=== PATIENT | female | born 2000 | race Caucasian/White ===

== ENCOUNTER 2022-07-13 09:17 | Outpatient (OUT) | payer MEDICAID, SELFPAY ==
[2022-07-13 10:46] LABS: Basophils Percent Auto 0.5 % (0.2-2.0); Eosinophils Absolute Auto 0.1 10^3/uL (0.0-0.7); Hematocrit 39.7 % (36.0-48.0); Hemoglobin 13.5 g/dL (12.0-16.0); Immature Granulocytes Abs Auto 0.02 10^3/uL (0.00-0.03); Immature Granulocytes Pct Auto 0.3 % (0.0-0.5); Lymphocytes Absolute Auto 1.6 10^3/uL (1.2-3.8); Lymphocytes Percent Auto 24.2 % (20.5-60.0); Mean Corpuscular Hemoglobin 30.6 pg (26.7-34.0); Mean Platelet Volume 10.4 fL (9.5-13.5); Monocytes Absolute Auto 0.4 10^3/uL (0.3-0.8); Monocytes Percent Auto 6.2 % (1.7-12.0); Neutrophils Absolute Auto 4.4 10^3/uL (1.4-6.5); Neutrophils Percent Auto 66.8 % (43.0-75.0); Platelet Count 253 10^3/uL (150-450); Red Blood Count 4.41 10^6/uL (4.20-5.40); Red Cell Distribution Width 12.7 % (11.0-15.0); White Blood Count 6.6 10^3/uL (4.0-11.0)
[2022-07-13 11:02] LABS: Thyroid Stimulating Hormone <0.007 uIU/mL (0.358-3.740)
[2022-07-13 11:23] LABS: Estimated Average Glucose 88 mg/dL; Glycohemoglobin A1C 4.7 % (4.5-6.2)
[2022-07-13 11:47] LABS: BOX Test Sent Out Y
[2022-07-14 06:08] LABS: HBsAg Screen Negative (Negative); HCV Ab Non Reactive (Non Reactive); HIV Ab/p24 Ag Screen Non Reactive (Non Reactive); Rubella Antibodies, IgG 7.19 index (Immune >0.99)
[2022-07-14 11:09] LABS: Rapid Plasma Reagin, Quant Non Reactive (NonRea<1:1)
== END 2022-07-13 09:18 ==
PROVIDERS: Visit Provider Obstetrics & Gynecology
DX: Z34.81 Encounter for supervision of other normal pregnancy, first trimester (principal)
CPT/HCPCS: 36415; 83036; 84443; 85025; 86592; 86762; 86803; 86850; 86900; 86901; 87340; 87389

== ENCOUNTER 2022-09-29 13:15 | Outpatient (OUT) | payer MEDICAID, SELFPAY ==
--- NOTE | 2022-09-29 13:21 | US_ITS ---
[address] [address] Patient Name: JEMIMA RAZO MRN: [id number] date: 2000 Sex: F Assigned Patient Location: US Current Patient Location: Accession/Order Number: [id number] Exam Date: 09/29/2022 13:21 Report Date: 09/30/2022 15:13 At the request of: YURI REDDY Procedure: US OB anatomy EXAMINATION: US OB anatomy HISTORY: ANATOMY COMPARISON: No relevant comparison available. TECHNIQUE: Transabdominal sonographic examination was performed for obstetrical and evaluation. FINDINGS: Number: 1 Heart Rate: 129.0 bpm H.B. /min Amniotic Fluid Volume: Subjectively normal Placental Location: ANT/FUNDAL with lower margin 10.8 cm from os. Cervix Length: 4.5 cm , closed. ANATOMY: Normal Structures -cerebellum, choroid plexus, cisterna magna, lateral cerebral ventricles, orbits, midline falx, hard palate, four-chamber heart, stomach, kidneys, bladder, umbilical cord insertion into abdomen, three-vessel cord, cervical spine, thoracic spine, lumbar spine, sacral spine, right upper extremity, left upper extremity, right lower extremity, left lower extremity. SUBOPTIMALLY SEEN: Cardiac outflow tracts due to position. ABNORMALITIES: None BIOMETRY: BPD: 5.1 cm 21 weeks 4 days HC: 18.9 cm 21 weeks 1 days AC: 16.7 cm 21 weeks 5 days FL: 3.5 cm 21 weeks 0 days EFW:419.8 grams; 58% FL/AC: 20.8 FL/BPD: 67.7 HC/AC: 1.1 GESTATIONAL AGE: Age by EDC: 21 weeks 1 days HONEY by EDC: 02/08/2023 Age by current US: 21 weeks 3 days HONEY by current US: 02/06/2023 US/US OB anatomy IMPRESSION: 1. Single live intrauterine with growth detailed above. 2. Suboptimal visualization of the cardiac outflow tracts due to position. Electronically authenticated by: LYSSA STEWART Date: 09/30/2022 15:13
== END 2022-09-29 13:16 | disposition home or self-care (01) ==
LOC: US 13:16
PROVIDERS: Visit Provider Obstetrics & Gynecology
DX: Z34.92 Encounter for supervision of normal pregnancy, unspecified, second trimester (principal)
CPT/HCPCS: 76805

== ENCOUNTER 2022-11-09 21:32 | Outpatient (REF) | payer MEDICAID, SELFPAY ==
[2022-11-13 11:12] LABS: Age Gdln ACOG Testing Note (.); IGP, rfx Aptima HPV ASCU Note (.)
== END 2022-11-09 21:33 | disposition home or self-care (01) ==
LOC: LAB 21:32
PROVIDERS: Visit Provider Obstetrics & Gynecology
DX: Z12.4 Encounter for screening for malignant neoplasm of cervix (principal)
CPT/HCPCS: G0145

== ENCOUNTER 2022-12-29 12:15 | Observation (INO) | payer MEDICAID, SELFPAY ==
[2022-12-29 12:37] VITALS: TEMP 36.6
[2022-12-29 12:38] VITALS: BP 114/62; PULSE 121
[2022-12-29 12:51] LABS: Bilirubin Urine NEGATIVE (NEGATIVE); Blood Urine NEGATIVE (NEGATIVE); Color Urine LT. YELLOW (YELLOW); Glucose Urine UA NEGATIVE (NEGATIVE); Ketones Urine NEGATIVE (NEGATIVE); Leukocyte Esterase Urine MODERATE (NEGATIVE); Nitrite Urine NEGATIVE (NEGATIVE); Protein Urine NEGATIVE (NEG/TRACE); pH Urine 7.5 (5.0-9.0)
[2022-12-29 12:52] LABS: Clarity Urine SLIGHTLY CLOUDY (CLEAR); Urine Microscopic Indicated YES
[2022-12-29 12:57] LABS: Bacteria Urine NONE SEEN #/HPF (NONE SEEN); Cast Seen? NONE SEEN #/LPF (NONE SEEN); Crystals Seen? None Seen #/HPF (None Seen); Mucus Urine NONE SEEN (NONE SEEN); RBC Urine NONE SEEN #/HPF (0-2); Squamous Epithelial Cell Urine MODERATE #/LPF (NONE/RARE); Urine Culture Indicated YES
--- NOTE | 2022-12-29 12:58 | US_ITS ---
[place] [id number] Patient Name: JEMIMA RAZO MRN: [id number] date: 2000 Sex: F Assigned Patient Location: [facility] Current Patient Location: [facility] Accession/Order Number: [id number] Exam Date: 12/29/2022 13:06 Report Date: 12/29/2022 14:24 At the request of: YURI REDDY Procedure: US OB BPP w non-stress PROCEDURE: US OB cervical length, US OB BPP w non-stress, US OB placenta, 12/29/2022 1:06 PM EST CLINICAL INDICATIONS: Encounter for third trimester , contractions for one day, transvaginal evaluation of cervix in , biophysical profile assessment. Sonographic assessment of the placenta. 4 para 2 AB 1, Expected HONEY 02/08/2023 Expected gestational age: 34 weeks 1 day COMPARISON: 09/29/2022 TECHNIQUE: Limited third trimester obstetric sonogram. Biophysical profile assessment. Transvaginal evaluation of cervix in . FINDINGS: Single living intrauterine identified, cephalic presentation. body, cardiac activity noted heart, heart rate 164 bpm. Amniotic fluid index 18.6 cm, 5-95th percentile, maximum vertical pocket 7.7 cm. Grade 1 anterior placenta, no sign of previa. Inferior margin 15 cm from the cervical os. Limited imaging suggest marginal placenta cord insertion upon the surface of the placenta, 1.6 cm from the margin of the placenta. Convincing placental hemorrhage is not evident. 4.0 cm transvaginal cervical length, closed. BIOPHYSICAL PROFILE ASSESSMENT: movement: 2/2 tone: 2/2 breathin/2 fluid: 2/2 Total biophysical profile score: 8/8 BIOMETRY: Not performed. ANATOMIC ASSESSMENT: Not performed. US/US OB BPP w non-stress IMPRESSION: 1. Single living intrauterine , cephalic presentation. 2. Grade 1 anterior placenta without previa or hemorrhage. Provided images suggest a marginal placenta cord insertion, upon the surface of the placenta, 1.6 cm from the margin of the placenta. 3. 18.6 cm amniotic fluid index, 5-95th percentile, maximum vertical pocket 7.7 cm. 4. Normal biophysical profile assessment, total score 8/8 5. 4.0 cm transvaginal cervical length, closed Electronically authenticated by: NATASHA THAPA Date: 12/29/2022 14:24
--- NOTE | 2022-12-29 12:58 | US_ITS ---
[place] [id number] Patient Name: JEMIMA RAZO MRN: [id number] date: 2000 Sex: F Assigned Patient Location: [facility] Current Patient Location: [facility] Accession/Order Number: [id number] Exam Date: 12/29/2022 13:06 Report Date: 12/29/2022 14:24 At the request of: YURI REDDY Procedure: US OB placenta PROCEDURE: US OB cervical length, US OB BPP w non-stress, US OB placenta, 12/29/2022 1:06 PM EST CLINICAL INDICATIONS: Encounter for third trimester , contractions for one day, transvaginal evaluation of cervix in , biophysical profile assessment. Sonographic assessment of the placenta. 4 para 2 AB 1, Expected HONEY 02/08/2023 Expected gestational age: 34 weeks 1 day COMPARISON: 09/29/2022 TECHNIQUE: Limited third trimester obstetric sonogram. Biophysical profile assessment. Transvaginal evaluation of cervix in . FINDINGS: Single living intrauterine identified, cephalic presentation. body, cardiac activity noted heart, heart rate 164 bpm. Amniotic fluid index 18.6 cm, 5-95th percentile, maximum vertical pocket 7.7 cm. Grade 1 anterior placenta, no sign of previa. Inferior margin 15 cm from the cervical os. Limited imaging suggest marginal placenta cord insertion upon the surface of the placenta, 1.6 cm from the margin of the placenta. Convincing placental hemorrhage is not evident. 4.0 cm transvaginal cervical length, closed. BIOPHYSICAL PROFILE ASSESSMENT: movement: 2/2 tone: 2/2 breathin/2 fluid: 2/2 Total biophysical profile score: 8/8 BIOMETRY: Not performed. ANATOMIC ASSESSMENT: Not performed. US/US OB placenta IMPRESSION: 1. Single living intrauterine , cephalic presentation. 2. Grade 1 anterior placenta without previa or hemorrhage. Provided images suggest a marginal placenta cord insertion, upon the surface of the placenta, 1.6 cm from the margin of the placenta. 3. 18.6 cm amniotic fluid index, 5-95th percentile, maximum vertical pocket 7.7 cm. 4. Normal biophysical profile assessment, total score 8/8 5. 4.0 cm transvaginal cervical length, closed Electronically authenticated by: NATASHA THAPA Date: 12/29/2022 14:24
--- NOTE | 2022-12-29 12:58 | US_ITS ---
[place] [id number] Patient Name: JEMIMA RAZO MRN: [id number] date: 2000 Sex: F Assigned Patient Location: [facility] Current Patient Location: [facility] Accession/Order Number: [id number] Exam Date: 12/29/2022 13:06 Report Date: 12/29/2022 14:24 At the request of: YURI REDDY Procedure: US OB cervical length PROCEDURE: US OB cervical length, US OB BPP w non-stress, US OB placenta, 12/29/2022 1:06 PM EST CLINICAL INDICATIONS: Encounter for third trimester , contractions for one day, transvaginal evaluation of cervix in , biophysical profile assessment. Sonographic assessment of the placenta. 4 para 2 AB 1, Expected HONEY 02/08/2023 Expected gestational age: 34 weeks 1 day COMPARISON: 09/29/2022 TECHNIQUE: Limited third trimester obstetric sonogram. Biophysical profile assessment. Transvaginal evaluation of cervix in . FINDINGS: Single living intrauterine identified, cephalic presentation. body, cardiac activity noted heart, heart rate 164 bpm. Amniotic fluid index 18.6 cm, 5-95th percentile, maximum vertical pocket 7.7 cm. Grade 1 anterior placenta, no sign of previa. Inferior margin 15 cm from the cervical os. Limited imaging suggest marginal placenta cord insertion upon the surface of the placenta, 1.6 cm from the margin of the placenta. Convincing placental hemorrhage is not evident. 4.0 cm transvaginal cervical length, closed. BIOPHYSICAL PROFILE ASSESSMENT: movement: 2/2 tone: 2/2 breathin/2 fluid: 2/2 Total biophysical profile score: 8/8 BIOMETRY: Not performed. ANATOMIC ASSESSMENT: Not performed. US/US OB cervical length IMPRESSION: 1. Single living intrauterine , cephalic presentation. 2. Grade 1 anterior placenta without previa or hemorrhage. Provided images suggest a marginal placenta cord insertion, upon the surface of the placenta, 1.6 cm from the margin of the placenta. 3. 18.6 cm amniotic fluid index, 5-95th percentile, maximum vertical pocket 7.7 cm. 4. Normal biophysical profile assessment, total score 8/8 5. 4.0 cm transvaginal cervical length, closed Electronically authenticated by: NATASHA THAPA Date: 12/29/2022 14:24
== END 2022-12-29 13:53 | disposition home or self-care (01) ==
LOC: FBC 12:18
PROVIDERS: Admitting Provider Obstetrics & Gynecology; Visit Provider Obstetrics & Gynecology
DX: O47.03 False labor before 37 completed weeks of gestation, third trimester (principal); Z3A.34 34 weeks gestation of pregnancy
CPT/HCPCS: 59025; 76815; 76817; 76818; 81001; 87086; G0378; G0379

== ENCOUNTER 2023-01-04 12:55 | Outpatient (OUT) | payer MEDICAID, SELFPAY ==
--- NOTE | 2023-01-04 12:57 | US_ITS ---
[place] [id number] Patient Name: JEMIMA RAZO MRN: [id number] date: 2000 Sex: F Assigned Patient Location: Current Patient Location: [facility] Accession/Order Number: [id number] Exam Date: 01/04/2023 12:57 Report Date: 01/04/2023 15:14 At the request of: YURI REDDY Procedure: US OB growth EXAMINATION: US OB growth HISTORY: SGA COMPARISON: Ultrasound OB anatomy 09/29/2022 FINDINGS: Heart Rate: 131.0 bpm Number: 1.0 Position: CEPHALIC Amniotic Fluid Volume: 18.2 cm Maximum Vertical Pocket: 5.8 cm BIOMETRY: BPD: 9.0 cm cm; 36 weeks 4 days; 90% HC: 32.7 cmcm; 37 weeks 0 days ; 68% AC: 33.5 cm cm; 37 weeks 3 days; >97% FL: 6.6 cm cm; 33 weeks 6 days; 16% EFW: 2939.1 grams; 85% FL/AC: 19.6 FL/BPD: 72.7 HC/AC: 1.0 GESTATIONAL AGE: Age by EDC: 35 weeks 0 days HONEY by EDC: 02/08/2023 Age by US: 36 weeks 2 days HONEY by US: 01/30/2023 US/US OB growth IMPRESSION: 1. Single live intrauterine with growth detailed above. 2. Abdominal circumference is greater than 97th percentile. Electronically authenticated by: LYSSA STEWART Date: 01/04/2023 15:14
== END 2023-01-04 12:56 | disposition home or self-care (01) ==
LOC: US 12:55
PROVIDERS: Visit Provider Obstetrics & Gynecology
DX: O26.843 Uterine size-date discrepancy, third trimester (principal); Z3A.35 35 weeks gestation of pregnancy
CPT/HCPCS: 76816

== ENCOUNTER 2023-01-09 03:45 | Inpatient (IN) | payer MEDICAID, SELFPAY ==
[2023-01-09] VITALS (51 sets, daily range): BP systolic 89–138; BP diastolic 49–78; PULSE 67–203; RESP 16; TEMP 35.8–36.8
[2023-01-09 04:05] LABS: Bilirubin Urine MODERATE (NEGATIVE); Blood Urine MODERATE (NEGATIVE); Clarity Urine CLEAR (CLEAR); Color Urine DK. YELLOW (YELLOW); Glucose Urine UA NEGATIVE (NEGATIVE); Ketones Urine >=80 mg/dL (NEGATIVE); Leukocyte Esterase Urine TRACE (NEGATIVE); Nitrite Urine NEGATIVE (NEGATIVE); Protein Urine 100 mg/dL (NEG/TRACE); Specific Gravity Urine >=1.030 (1.005-1.025); Urobilinogen Urine >=8.0 EU/dL (0.2-1.0); pH Urine 6.5 (5.0-9.0)
[2023-01-09 04:07] LABS: Amnisure POSITIVE (NEGATIVE)
[2023-01-09 04:08] LABS: Urine Microscopic Indicated YES
[2023-01-09 04:12] LABS: Bacteria Urine SMALL #/HPF (NONE SEEN); Mucus Urine MODERATE (NONE SEEN); RBC Urine 0-2 #/HPF (0-2)
[2023-01-09 04:13] LABS: Cast Seen? NONE SEEN #/LPF (NONE SEEN); Crystals Seen? None Seen #/HPF (None Seen); Squamous Epithelial Cell Urine MODERATE #/LPF (NONE/RARE); Urine Culture Indicated YES
--- NOTE | 2023-01-09 09:44 | PM.OBHP ---
OB - H&P: HPI History of Present Illness Chief complaint: SROM LABOR : 4 Para: 1 Date of last menstrual period: 05/05/22 Gestational age based on last menstrual period: 35.5 weeks dated by 8 week ultrasound Narrative: presented yesterday with complaint of SROM. Amnisure positive however no pooling. observed overnight and minimal leakage. on speculum exam this am had pooling and Fern test positive. cervix 3 to 5 cm 80 percent and vertex. amniotic fluid clear. NST Cat I with occasion variable with quick return to baseline with contraction. History of Present Dating criteria: LMP confirmed by 1st trimester US care: good care Ultrasounds: normal 1st trimester US Medical complications OB: none Narrative: admits to vaping, marijuana use in past and alcohol use in past Labs Blood type: A (+) positive Rubella: immune RPR/VDLR: nonreactive GBS status: unknown HBsAG: negative Review of Systems ROS Status of ROS 10 or more systems reviewed and unremarkable except as noted in history and below Meds Home Medications and Allergies Allergies Allergy/AdvReac Type Severity Reaction Status Date / Time No Known Drug Allergies Allergy Verified 12/29/22 12:58 Exam Constitutional Vital Signs, click to edit/add: Last Vital Signs Temp 97.2 F L 01/09/23 09:27 Pulse 74 01/09/23 09:27 BP 115/72 01/09/23 09:27 Documenting provider has reviewed patient's vital signs: yes HENMT Common normals: normocephalic and head/scalp atraumatic Eye Common normals: PERRL Pupil: accommodation reflex normal Neck & C-Spine Common normals: full ROM Chest Common normals: inspection of chest normal Respiratory Common normals: normal respiratory effort Cardio Common normals: regular rate and regular rhythm GI Common normals: Normal to inspection, nondistended, normoactive bowel sounds present, soft to palpation and non-tender Common normals: no CVA tenderness Extremity Common normals: normal to inspection, full ROM and no calf tenderness Neuro Common normals: oriented x3, CN's II-XII intact bilaterally, moves all extremities, no focal motor deficits and no sensory deficits noted Psych Common normals: mental status grossly normal, thought process normal, cooperative, affect normal and speech normal Appearance: grossly normal Results Labs Labs: Urine 01/09/23 Range/Units 03:55 Urine Color Dk. yellow (YELLOW) Urine Clarity Clear (CLEAR) Urine pH 6.5 (5.0-9.0) Ur Specific [place] >=1.030 A (1.005-1.025) Urine Protein 100 A (NEG/TRACE) mg/dL Urine Glucose (UA) Negative (NEGATIVE) mg/dL OB - A/P Assessment and Plan (1) SROM (spontaneous rupture of membranes): Assessment and Plan: SROM CONFIRMED BY POOLING, FERN TEST AND AMNISURE (2) contractions: Assessment and Plan: WILL AUGMENT IF NECESSARY TO CREATE LABOR PATTERN. (3) GBS screening not performed: Assessment and Plan: RECEIVING AMPICILLIN PER PROTOCOL Plan SROM CONFIRMED 35.5 WEEKS ADMITTED FOR LABOR. WILL RECEIVE AMPICILLIN FOR UNKNOWN STATUS CONTINUOUS EFM AT PRESENT DOES NOT WANT EPIDURAL
[2023-01-09] MEDS: AMPICILLIN SODIUM 2,000 MG in 0.9 % SODIUM CHLORIDE 100 ML 200 MG IV (10:01)
[2023-01-09 10:09] LABS: Hematocrit 33.5 % (36.0-48.0); Hemoglobin 11.2 g/dL (12.0-16.0); Mean Corpuscular HGB Conc 33.4 g/dL (29.9-35.2); Mean Corpuscular Hemoglobin 30.9 pg (26.7-34.0); Mean Corpuscular Volume 92.3 fL (81.0-99.0); Mean Platelet Volume 10.1 fL (9.5-13.5); Platelet Count 251 10^3/uL (150-450); Red Blood Count 3.63 10^6/uL (4.20-5.40); Red Cell Distribution Width 13.1 % (11.0-15.0); White Blood Count 8.4 10^3/uL (4.0-11.0)
[2023-01-09] MEDS: 0.9 % SODIUM CHLORIDE 1,000 ML 125 ML IV ×3 (10:10→18:31)
[2023-01-09 11:30] LABS: Amphetamine Screen Urine NEGATIVE (NEGATIVE); Barbiturates Screen Urine NEGATIVE (NEGATIVE); Benzodiazepines Screen Urine NEGATIVE (NEGATIVE); Buprenorphine Screen Urine NEGATIVE (NEGATIVE); Cannabinoid Screen Urine POSITIVE (NEGATIVE); Cocaine Screen Urine NEGATIVE (NEGATIVE); Methadone Screen Urine NEGATIVE (NEGATIVE); Methamphetamines Screen Urine NEGATIVE (NEGATIVE); Opiate Screen Urine NEGATIVE (NEGATIVE); Oxycodone Screen Urine NEGATIVE (NEGATIVE); Phencyclidine Screen Urine NEGATIVE (NEGATIVE); Tricyclic Antidepressant Urine NEGATIVE (NEGATIVE)
[2023-01-09] MEDS: AMPICILLIN SODIUM 1,000 MG in 0.9 % SODIUM CHLORIDE 50 ML 100 MG IV ×2 (13:45→18:03)
[2023-01-09] MEDS: ROPIVACAINE HCL/PF 400 MG/200 ML PREMIX EPIDURAL (14:52)
[2023-01-09] MEDS: OXYTOCIN/0.9 % SODIUM CHLORIDE 10 UNITS/500 ML PLAST..BAG 6 UNIT IV (17:29)
[2023-01-09] MEDS: OXYTOCIN/0.9 % SODIUM CHLORIDE 20 UNITS/1,000 ML PLAST..BAG 125 UNIT IV (21:30)
--- NOTE | 2023-01-09 21:34 | PM.OBPRCVD ---
Procedure events: Labor < 37 Weeks and Premature Rupture of Membrane Intrapartal events: None Induction method: none Delivery monitor: external FHT and external uterine Route of delivery: Episiotomy Description: none Estimated blood loss (mL): 250 Anesthesia type: Epidural Complications: none Delivery date: 01/09/23 Gender: female presentation: vertex Placental delivery description: Spontaneous cord description: 3 Vessels cord description comment: normal thickness and length
[2023-01-10] VITALS (7 sets, daily range): BP systolic 106–126; BP diastolic 57–80; PULSE 66–80; RESP 16–20; TEMP 36.1–36.5
[2023-01-10] MEDS: IBUPROFEN 600 MG TABLET PO ×3 (00:12→16:00)
[2023-01-10 06:54] LABS: Basophils Percent Auto 0.3 % (0.2-2.0); Eosinophils Absolute Auto 0.2 10^3/uL (0.0-0.7); Eosinophils Percent Auto 1.2 % (0.9-7.0); Hematocrit 32.2 % (36.0-48.0); Hemoglobin 10.4 g/dL (12.0-16.0); Immature Granulocytes Abs Auto 0.04 10^3/uL (0.00-0.03); Immature Granulocytes Pct Auto 0.3 % (0.0-0.5); Lymphocytes Absolute Auto 2.6 10^3/uL (1.2-3.8); Lymphocytes Percent Auto 20.2 % (20.5-60.0); Mean Corpuscular HGB Conc 32.3 g/dL (29.9-35.2); Mean Corpuscular Hemoglobin 30.2 pg (26.7-34.0); Mean Corpuscular Volume 93.6 fL (81.0-99.0); Mean Platelet Volume 10.6 fL (9.5-13.5); Monocytes Absolute Auto 1.1 10^3/uL (0.3-0.8); Monocytes Percent Auto 8.7 % (1.7-12.0); Neutrophils Percent Auto 69.3 % (43.0-75.0); Platelet Count 229 10^3/uL (150-450); Red Blood Count 3.44 10^6/uL (4.20-5.40); Red Cell Distribution Width 13.2 % (11.0-15.0)
--- NOTE | 2023-01-10 07:13 | W.PC.ACHO ---
Registration Status: ADM IN Primary Language: Preferred Language: Uzbek Active Medications Generic Name Dose Route Start Last Admin Trade Name Jenni PRN Reason Stop Dose Admin Acetaminophen 325 mg 01/09/23 21:49 Acetaminophen 325 Mg Tablet PO Q4H PRN Pain Scale 1-3 Carboprost Tromethamine 250 mcg 01/09/23 09:31 Carboprost Tromethamine 250 Mcg/Ml 1 Ml Vial IM 01/11/23 09:31 Q15M PRN Bleeding Diphenhydramine HCl 25 mg 01/09/23 09:45 Diphenhydramine Hcl 50 Mg/Ml (1ml) Vial IV 01/10/23 09:46 Q6H PRN Itching Diphtheria/Pertussis/Tetanus Vacc 0.5 ml 01/11/23 09:00 Adacel Diph,Pertuss(Acell),Tet Vac/Pf 0.5 Ml Adult Syringe IM 01/11/23 09:01 .ONCE ONE Docusate Sodium 100 mg 01/10/23 09:00 Docusate Sodium 100 Mg Capsule PO BID ANALILIA Ephedrine Sulfate 5 mg 01/09/23 09:45 Ephedrine Sulfate 50 Mg/Ml Vial IV 01/10/23 09:46 Q5M PRN Blood Pressure - Low Fentanyl Citrate 100 mcg 01/09/23 09:45 Fentanyl Citrate/Pf 100 Mcg/2 Ml Vial EPIDURAL ONCE PRN epidural Fentanyl Citrate 100 mcg 01/09/23 09:45 Fentanyl Citrate/Pf 100 Mcg/2 Ml Vial EPIDURAL ONCE PRN epidural Oxytocin/Sodium Chloride 10 units in 500 mls @ 6 mls/hr 01/09/23 09:45 01/09/23 18:31 Pitocin 10 Unit/500 Ml-Ns IV 6 milliunit/min CONT ANALILIA 18 mls/hr Infusion Protocol 2 MILLIUNIT/MIN Ampicillin 1,000 mg/ Sodium 50 mls @ 100 mls/hr 01/09/23 14:00 01/09/23 18:03 Chloride IV 100 mls/hr Q4H ANALILIA Administration Sodium Chloride 1,000 mls @ 125 mls/hr 01/09/23 10:15 01/09/23 18:31 Sodium Chloride 0.9% 1,000 Ml IV 125 mls/hr .Q8H PRN Administration Labor Pain Dextrose/Lactated Ringer's 1,000 mls @ 100 mls/hr 01/09/23 21:45 D5% - Lactated Ringers 1,000 Ml IV .Q10H ANALILIA Ibuprofen 600 mg 01/09/23 21:38 01/10/23 06:59 Ibuprofen 600 Mg Tablet PO 600 mg Q6H PRN Administration Moderate Pain Lidocaine 5 ml 01/09/23 09:45 Lidocaine Hcl 2% Pf 100 Mg/5 Ml Vial INJ 01/10/23 09:45 Q1H PRN epidural Methylergonovine Maleate 0.2 mg 01/09/23 09:31 Methylergonovine Maleate 0.2 Mg/Ml Ampule IM 01/11/23 09:31 ONCE PRN Uterine Contractility/Contract Methylergonovine Maleate 0.2 mg 01/09/23 09:31 Methylergonovine Maleate 0.2 Mg Tablet PO 01/11/23 09:31 Q4H PRN Uterine Contractility/Contract Misoprostol 600 mcg 01/09/23 09:31 Misoprostol 100 Mcg Tablet PO 01/11/23 09:31 ONCE PRN Uterine Bleeding Misoprostol 800 mcg 01/09/23 09:31 Misoprostol 100 Mcg Tablet SL 01/11/23 09:31 ONCE PRN Uterine Bleeding Misoprostol 1,000 mcg 01/09/23 09:31 Misoprostol 100 Mcg Tablet MN 01/11/23 09:31 ONCE PRN Uterine Bleeding Naloxone HCl 0.4 mg 01/09/23 09:45 Naloxone Hcl 0.4 Mg/Ml Vial IV 01/10/23 09:46 ONCE PRN epidural Ondansetron HCl 4 mg 01/09/23 09:31 Ondansetron Pf 4 Mg/2 Ml Vial IV Q6H PRN Nausea And Vomiting Oxytocin 10 unit 01/09/23 09:31 Oxytocin 10 Unit/Ml Vial IM 01/11/23 09:31 ONCE PRN bleeding IV Insertion/Site Date of IV Line Insertion [20g 01/09/23 left Hand] Date of IV Line Insertion [20g 01/09/23 left Antecubital] IV Insertion Time [20g left 11:30 Hand] IV Insertion Time [20g left 03:00 Antecubital] Respiratory Oxygen Delivery Method Room Air Oxygen Delivery Method Room Air Oxygen Delivery Method Room Air Cardiology Heart Sounds Strong,Regular Heart Sounds Strong,Regular Renal Bladder Pattern Continent Bladder Pattern Continent Urinary Incontinence Type Total
[2023-01-10] MEDS: DOCUSATE SODIUM 100 MG CAPSULE PO (08:48)
--- NOTE | 2023-01-10 12:13 | PM.OBPRCVD ---
Procedure Procedure: WAS CALLED WHEN PATIENT WAS 7 CM. WITHIN THE NEXT 30 MIN THE CERVIX WAS COMPLETELY DILATED AND EFFACED AND THE HEAD WAS AT ZERO STATION. SHE HAD RECEIVED A TOTAL OF THREE ANTIBIOTIC DOSES PER PROTOCOL FOR UNKNOWN GBS STATUS. THE HEART TRACING WAS CATEGORY I AND THE PITOCIN FOR AUGMENTATION WAS AT 10 MIU. THE HEAD WAS DELIVERED IN TWO PUSHES OVER AN INTACT PERINEUM. THE UMBILICAL CORD WAS MILKED TOWARDS BABY FOR 20 SECONDS AND THEN DOUBLY CLAMPED AND CUT. THE RESPIRATORY TEAM WAS PRESENT AT THE DELIVERY THE BABY WAS . THERE WERE NO MEDICAL ISSUES WITH THE INFANT AFTER DELIVERY AND ONCE ASSESSED THE BABY WAS PLACED SKIN TO SKIN. THE PLACENTA WAS DELIVERED SPONTANEOUSLY AND SENT TO PATHOLOGY BECAUSE OF PPROM AND DELIVERY. CORD BLOOD WAS OBTAINED AND THE CORD WAS SENT BECAUSE OF HISTORY OF MARIJUANA USE. THE FUNDUS WAS FIRM AT THE UMBILICUS AFTER DELIVERY OF THE PLACENTA. THE PERINEUM WAS INTACT. THE REMAINING PITOCIN WAS INFUSED AT SETTING OF 999 ON IMED. THE INSTRUMENT AND SPONGE COUNTS WERE CORRECT. THERE WERE NO SHARPS TO COUNT. THE PATIENT TOLERATED LABOR AND DELIVERY WELL WITH THE EPIDURAL. events: Labor < 37 Weeks and Premature Rupture of Membrane Intrapartal events: None Laceration description: none Estimated blood loss (mL): 250 Anesthesia type: Epidural Infant Delivery date: 01/09/23 Gender: female presentation: vertex Placental delivery description: Spontaneous cord description: 3 Vessels cord description comment: normal thickness and length Stage 1 Duration Labor - Stage 1 Duration: 18 hours and 22 minutes Labor State Duration Labor - Stage 2 Duration: 35 minutes Labor - Stage 3 Duration: 3 minutes Total Length of Labor: 19 hours and 0 minutes Total Length of Latency: 18 hours and 57 minutes
--- NOTE | 2023-01-10 12:55 | PM.OBPN ---
OB - PN: Subj Subjective Patient comments: no complaints [place] status: doing well [place] feeding status: exclusively Exam Constitutional Vital Signs, click to edit/add: Last Vital Signs Temp 97.5 F L 01/10/23 08:50 Pulse 66 01/10/23 08:50 Resp 16 01/10/23 09:05 BP 126/77 01/10/23 08:50 O2 Del Method Room Air 01/10/23 09:05 Documenting provider has reviewed patient's vital signs: yes Common normals: no apparent distress and oriented x3 General appearance: cooperative and comfortable HENMT Common normals: normocephalic and head/scalp atraumatic Eye Pupil: PERRL and accommodation reflex normal Neck & C-Spine Common normals: full ROM and supple Respiratory Common normals: normal respiratory effort Cardio Common normals: regular rate and regular rhythm GI Common normals: Normal to inspection, nondistended, normoactive bowel sounds present and soft to palpation Common normals: no CVA tenderness Extremity Common normals: normal to inspection, full ROM and no calf tenderness Neuro Common normals: CN's II-XII intact bilaterally, moves all extremities, no focal motor deficits and no sensory deficits noted Psych Common normals: mental status grossly normal, thought process normal and affect normal Results Labs Labs: Short CBC 01/10/23 Range/Units 06:21 WBC 13.0 H (4.0-11.0) 10^3/uL Hgb 10.4 L (12.0-16.0) g/dL Hct 32.2 L (36.0-48.0) % Plt Count 229 (150-450) 10^3/uL OB - PN: A/P Assessment and Plan (1) SROM (spontaneous rupture of membranes): Assessment and Plan: DELIVERED (2) contractions: Assessment and Plan: DELIVERED (3) GBS screening not performed: Assessment and Plan: RECEIVED THREE DOSES OF ANTIBIOTIC PER PROTOCOL Plan BABY CAN NOT BE DISCHARGED TODAY BECAUSE . MOM DOES NOT WANT TO GO HOME WITHOUT DAUGHTER. ROUTINE CARE Plan - Vaginal Delivery day: 1 Plan: routine care Time Spent with Patient Time: Total time spent is greater than 50% in coordination of care (as documented) at patient's floor/unit and/or counseling patient: Total time spent with greater than 50% in coordination of care (as documented) at patient's floor/unit and/or counseling patient: less than 15 minutes
--- NOTE | 2023-01-10 19:05 | W.PC.ACHO ---
Registration Status: ADM IN Primary Language: Preferred Language: Sami Active Medications Generic Name Dose Route Start Last Admin Trade Name Jenni PRN Reason Stop Dose Admin Acetaminophen 325 mg 01/09/23 21:49 Acetaminophen 325 Mg Tablet PO Q4H PRN Pain Scale 1-3 Carboprost Tromethamine 250 mcg 01/09/23 09:31 Carboprost Tromethamine 250 Mcg/Ml 1 Ml Vial IM 01/11/23 09:31 Q15M PRN Bleeding Diphtheria/Pertussis/Tetanus Vacc 0.5 ml 01/11/23 09:00 Adacel Diph,Pertuss(Acell),Tet Vac/Pf 0.5 Ml Adult Syringe IM 01/11/23 09:01 .ONCE ONE Docusate Sodium 100 mg 01/10/23 09:00 01/10/23 08:48 Docusate Sodium 100 Mg Capsule PO 100 mg BID ANALILIA Administration Fentanyl Citrate 100 mcg 01/09/23 09:45 Fentanyl Citrate/Pf 100 Mcg/2 Ml Vial EPIDURAL ONCE PRN epidural Fentanyl Citrate 100 mcg 01/09/23 09:45 Fentanyl Citrate/Pf 100 Mcg/2 Ml Vial EPIDURAL ONCE PRN epidural Oxytocin/Sodium Chloride 10 units in 500 mls @ 6 mls/hr 01/09/23 09:45 01/09/23 18:31 Pitocin 10 Unit/500 Ml-Ns IV 6 milliunit/min CONT ANALILIA 18 mls/hr Infusion Protocol 2 MILLIUNIT/MIN Ampicillin 1,000 mg/ Sodium 50 mls @ 100 mls/hr 01/09/23 14:00 01/09/23 18:03 Chloride IV 100 mls/hr Q4H ANALILIA Administration Sodium Chloride 1,000 mls @ 125 mls/hr 01/09/23 10:15 01/09/23 18:31 Sodium Chloride 0.9% 1,000 Ml IV 125 mls/hr .Q8H PRN Administration Labor Pain Dextrose/Lactated Ringer's 1,000 mls @ 100 mls/hr 01/09/23 21:45 D5% - Lactated Ringers 1,000 Ml IV .Q10H ANALILIA Ibuprofen 600 mg 01/09/23 21:38 01/10/23 16:00 Ibuprofen 600 Mg Tablet PO 600 mg Q6H PRN Administration Moderate Pain Methylergonovine Maleate 0.2 mg 01/09/23 09:31 Methylergonovine Maleate 0.2 Mg/Ml Ampule IM 01/11/23 09:31 ONCE PRN Uterine Contractility/Contract Methylergonovine Maleate 0.2 mg 01/09/23 09:31 Methylergonovine Maleate 0.2 Mg Tablet PO 01/11/23 09:31 Q4H PRN Uterine Contractility/Contract Misoprostol 600 mcg 01/09/23 09:31 Misoprostol 100 Mcg Tablet PO 01/11/23 09:31 ONCE PRN Uterine Bleeding Misoprostol 800 mcg 01/09/23 09:31 Misoprostol 100 Mcg Tablet SL 01/11/23 09:31 ONCE PRN Uterine Bleeding Misoprostol 1,000 mcg 01/09/23 09:31 Misoprostol 100 Mcg Tablet MS 01/11/23 09:31 ONCE PRN Uterine Bleeding Ondansetron HCl 4 mg 01/09/23 09:31 Ondansetron Pf 4 Mg/2 Ml Vial IV Q6H PRN Nausea And Vomiting Oxytocin 10 unit 01/09/23 09:31 Oxytocin 10 Unit/Ml Vial IM 01/11/23 09:31 ONCE PRN bleeding Diet Category Date Time Status Regular Consistency Diet Diet 01/10/23 10:43 Active Respiratory Oxygen Delivery Method Room Air Oxygen Delivery Method Room Air Oxygen Delivery Method Room Air Oxygen Delivery Method Room Air Oxygen Delivery Method Room Air Cardiology Heart Sounds Strong,Regular Heart Sounds Strong,Regular Renal Bladder Pattern Continent Bladder Pattern Continent Bladder Pattern Continent Urinary Incontinence Type Total
[2023-01-11 00:05] VITALS: RESP 18; TEMP 36.7
[2023-01-11 00:09] VITALS: BP 109/76; PULSE 85
--- NOTE | 2023-01-11 07:19 | W.PC.ACHO ---
Registration Status: ADM IN Primary Language: Preferred Language: Sinhala Active Medications Generic Name Dose Route Start Last Admin Trade Name Jenni PRN Reason Stop Dose Admin Acetaminophen 325 mg 01/09/23 21:49 Acetaminophen 325 Mg Tablet PO Q4H PRN Pain Scale 1-3 Carboprost Tromethamine 250 mcg 01/09/23 09:31 Carboprost Tromethamine 250 Mcg/Ml 1 Ml Vial IM 01/11/23 09:31 Q15M PRN Bleeding Diphtheria/Pertussis/Tetanus Vacc 0.5 ml 01/11/23 09:00 Adacel Diph,Pertuss(Acell),Tet Vac/Pf 0.5 Ml Adult Syringe IM 01/11/23 09:01 .ONCE ONE Docusate Sodium 100 mg 01/10/23 09:00 01/11/23 01:54 Docusate Sodium 100 Mg Capsule PO Not Given BID ANALILIA Fentanyl Citrate 100 mcg 01/09/23 09:45 Fentanyl Citrate/Pf 100 Mcg/2 Ml Vial EPIDURAL ONCE PRN epidural Fentanyl Citrate 100 mcg 01/09/23 09:45 Fentanyl Citrate/Pf 100 Mcg/2 Ml Vial EPIDURAL ONCE PRN epidural Oxytocin/Sodium Chloride 10 units in 500 mls @ 6 mls/hr 01/09/23 09:45 01/09/23 18:31 Pitocin 10 Unit/500 Ml-Ns IV 6 milliunit/min CONT ANALILIA 18 mls/hr Infusion Protocol 2 MILLIUNIT/MIN Ampicillin 1,000 mg/ Sodium 50 mls @ 100 mls/hr 01/09/23 14:00 01/09/23 18:03 Chloride IV 100 mls/hr Q4H ANALILIA Administration Sodium Chloride 1,000 mls @ 125 mls/hr 01/09/23 10:15 01/09/23 18:31 Sodium Chloride 0.9% 1,000 Ml IV 125 mls/hr .Q8H PRN Administration Labor Pain Dextrose/Lactated Ringer's 1,000 mls @ 100 mls/hr 01/09/23 21:45 D5% - Lactated Ringers 1,000 Ml IV .Q10H ANALILIA Ibuprofen 600 mg 01/09/23 21:38 01/10/23 16:00 Ibuprofen 600 Mg Tablet PO 600 mg Q6H PRN Administration Moderate Pain Methylergonovine Maleate 0.2 mg 01/09/23 09:31 Methylergonovine Maleate 0.2 Mg/Ml Ampule IM 01/11/23 09:31 ONCE PRN Uterine Contractility/Contract Methylergonovine Maleate 0.2 mg 01/09/23 09:31 Methylergonovine Maleate 0.2 Mg Tablet PO 01/11/23 09:31 Q4H PRN Uterine Contractility/Contract Misoprostol 600 mcg 01/09/23 09:31 Misoprostol 100 Mcg Tablet PO 01/11/23 09:31 ONCE PRN Uterine Bleeding Misoprostol 800 mcg 01/09/23 09:31 Misoprostol 100 Mcg Tablet SL 01/11/23 09:31 ONCE PRN Uterine Bleeding Misoprostol 1,000 mcg 01/09/23 09:31 Misoprostol 100 Mcg Tablet [place] 01/11/23 09:31 ONCE PRN Uterine Bleeding Ondansetron HCl 4 mg 01/09/23 09:31 Ondansetron Pf 4 Mg/2 Ml Vial IV Q6H PRN Nausea And Vomiting Oxytocin 10 unit 01/09/23 09:31 Oxytocin 10 Unit/Ml Vial IM 01/11/23 09:31 ONCE PRN bleeding Diet Category Date Time Status Regular Consistency Diet Diet 01/10/23 10:43 Active Respiratory Oxygen Delivery Method Room Air Oxygen Delivery Method Room Air Oxygen Delivery Method Room Air Cardiology Heart Sounds Strong,Regular Renal Bladder Pattern Continent Bladder Pattern Continent
[2023-01-11 08:50] VITALS: BP 117/75; PULSE 53
[2023-01-11] MEDS: IBUPROFEN 600 MG TABLET PO (08:57)
[2023-01-11 09:24] VITALS: RESP 18; TEMP 36.6
--- NOTE | 2023-01-11 12:25 | PC.NURSE ---
pumping breasts, inquires about latching assistance, instructed to call when baby is rooting next item, pumped 50 ml colostrum
--- NOTE | 2023-01-11 17:21 | PM.OBPN ---
OB - PN: Subj Subjective Patient comments: no complaints and pain well controlled [place] status: doing well Exam Constitutional Vital Signs, click to edit/add: Last Vital Signs Temp 97.8 F 01/11/23 09:24 Pulse 53 L 01/11/23 08:50 Resp 18 01/11/23 09:24 BP 117/75 01/11/23 08:50 O2 Del Method Room Air 01/11/23 00:05 Documenting provider has reviewed patient's vital signs: yes Common normals: no apparent distress Respiratory Common normals: normal respiratory effort and clear to auscultation bilaterally Cardio Common normals: regular rate and regular rhythm GI Common normals: Normal to inspection, nondistended, normoactive bowel sounds present Extremity Common normals: no calf tenderness OB - PN: A/P Assessment and Plan (1) SROM (spontaneous rupture of membranes): (2) contractions: (3) GBS screening not performed: Plan - Vaginal Delivery day: 2 Plan: routine care, discharge home and follow up 6 weeks Time Spent with Patient Time: Total time spent is greater than 50% in coordination of care (as documented) at patient's floor/unit and/or counseling patient: Total time spent with greater than 50% in coordination of care (as documented) at patient's floor/unit and/or counseling patient: less than 15 minutes
[2023-01-14 15:10] LABS: Cannabinoid Positive (.); Carboxy THC Conf, MS, UR >750 ng/mL (Cutoff=10)
--- NOTE | 2023-02-09 15:23 | CM.NOTE ---
Called cord results to [facility] CPS.
== END 2023-01-11 14:50 | disposition home or self-care (01) | DRG 560 ==
PROVIDERS: Admitting Provider Obstetrics & Gynecology; Visit Provider Obstetrics & Gynecology
DX: O42.913 Preterm premature rupture of membranes, unspecified as to length of time between rupture and onset of labor, third trimester (principal); Z3A.35 35 weeks gestation of pregnancy; Z37.0 Single live birth; O99.334 Smoking (tobacco) complicating childbirth; F17.290 Nicotine dependence, other tobacco product, uncomplicated; O99.324 Drug use complicating childbirth; F12.90 Cannabis use, unspecified, uncomplicated
CPT/HCPCS: 36415; 59025; 59050; 59410; 80307; 80349; 81001; 84112; 85025; 85027; 85610; 85730; 86850; 86900; 86901; 87086; 88307; 96365; 96375; 96376

== ENCOUNTER 2023-01-13 08:26 | Outpatient (OUT) | payer MEDICAID, SELFPAY ==
--- NOTE | 2023-01-13 16:09 | PC.NURSE ---
Carlos and 4 day old infant arrive for follow up. Mom states are doing well. Relates that her 11 mo daughter is curious about the baby and her significant other cares for her while she cares for the and rests. Mom states milk is really coming in today, breasts palpates for fullness and lumps towards axilla. Drips milk. Able to pump > 5 oz every 2-3 hours. Baby to breast every 3 hours and sometimes longer Encouraged small frequent feeds for LPI infant. Discussed use of pumped milk after each feed for easy milk . Mom does not want to use formula of any kind for baby, not even fortified breast milk. Reviewed need to maintain every 2 hour feeds while awake and 1 3-4 hour stretch at night. Willing to meet needs of before using formula. (Neosure powder added to pumped milk to obtain higher calorie milk). 5 wets and 5 stools noted by mom and her friend in last 24 hours. Baby to have 1st appointment with Dr Colbert tomorrow 01/14/2023. Will advise regarding weight checks. Plans to attend [facility] BF group with friend 01/26/2023. Leaves ambulatory with , no questions at this time.
[2023-01-13 16:12] VITALS: BP 117/78; PULSE 68; RESP 16; TEMP 36.5; O2SAT 97
== END 2023-01-13 16:00 | disposition home or self-care (01) ==
LOC: FBCO 08:27
PROVIDERS: Visit Provider Obstetrics & Gynecology
DX: Z39.2 Encounter for routine postpartum follow-up (principal)

== ENCOUNTER 2023-11-03 14:13 | Outpatient (OUT) | payer MEDICAID, SELFPAY ==
[2023-11-03 14:40] LABS: Basophils Percent Auto 0.5 % (0.2-2.0); Eosinophils Absolute Auto 0.3 10^3/uL (0.0-0.7); Eosinophils Percent Auto 3.9 % (0.9-7.0); Hematocrit 42.3 % (36.0-48.0); Hemoglobin 14.4 g/dL (12.0-16.0); Immature Granulocytes Abs Auto 0.01 10^3/uL (0.00-0.03); Immature Granulocytes Pct Auto 0.2 % (0.0-0.5); Lymphocytes Absolute Auto 2.3 10^3/uL (1.2-3.8); Lymphocytes Percent Auto 35.7 % (20.5-60.0); Mean Corpuscular Hemoglobin 31.3 pg (26.7-34.0); Mean Platelet Volume 10.1 fL (9.5-13.5); Monocytes Absolute Auto 0.5 10^3/uL (0.3-0.8); Monocytes Percent Auto 7.2 % (1.7-12.0); Neutrophils Absolute Auto 3.4 10^3/uL (1.4-6.5); Neutrophils Percent Auto 52.5 % (43.0-75.0); Platelet Count 281 10^3/uL (150-450); Red Cell Distribution Width 12.5 % (11.0-15.0); White Blood Count 6.5 10^3/uL (4.0-11.0)
[2023-11-03 14:46] LABS: Estimated Average Glucose 94 mg/dL; Glycohemoglobin A1C 4.9 % (4.5-6.2)
[2023-11-03 15:06] LABS: Thyroid Stimulating Hormone 0.134 uIU/mL (0.358-3.740)
== END 2023-11-03 14:14 | disposition home or self-care (01) ==
LOC: LAB 14:14
PROVIDERS: Visit Provider Obstetrics & Gynecology
DX: R63.4 Abnormal weight loss (principal)
CPT/HCPCS: 36415; 83036; 84439; 84443; 85025

== ENCOUNTER 2024-02-18 10:19 | Outpatient (OUT) | payer MEDICAID, SELFPAY ==
--- OUTSIDE RECORDS SUMMARY | 2024-02-18 10:37 | XMS_ITS | CCD ---
Author Organization [facility] CliniSynv Care Team Providers Care Auto Fleet Maintenance Manager Name Role Phone ANN-MARIE ASH Primary Care Unavailable KARIS MARI Attending Unavailable ASH, ANN-MARIE Dc Primary Care Unavailable KOSTA LOZANO Attending Unavailable ASH, ANN-MARIE Dc Primary Care Unavailable ANN-MARIE ENGLE Attending Unavailable MIHIR, ANN-MARIE Dc Primary Care Unavailable VARUN BARTHOLOMEW Attending Unavailable Ann-Marie Ash Primary Care Provider TRUDY RAMAN Referring Unavailable MIHIR, ANN-MARIE Dc Primary Care Unavailable MIHIR, ANN-MARIE Dc Primary Care Unavailable ALEXANDRIA SIDDIQUI Attending Unavailable MIHIR, ANN-MARIE Dc Primary Care Unavailable VICTORINO SULLIVAN Attending Unavailable Mihir, Ann-Marie A Primary Care Provider [phone] CAROLE ., DR WELCH Consulting Unavailable CAROLE ., DR WELCH Admitting Unavailable CAROLE ., DR WELCH Attending Unavailable CAROLE ., DR WELCH Consulting Unavailable CAROLE ., DR WELCH Attending Unavailable CAROLE ., DR WELCH Admitting Unavailable CAROLE ., DR WELCH Attending Unavailable CAROLE ., DR WELCH Admitting Unavailable CAROLE ., DR WELCH Admitting Unavailable CAROLE ., DR WELCH Attending Unavailable PAY ., DR HOWARD Consulting Unavailable PAY ., DR HOWARD Attending Unavailable PAY ., DR HOWARD Admitting Unavailable JACKLYN FRIED Consulting Unavailable CAROLE ., DR WELCH Admitting Unavailable CAROLE ., DR WELCH Attending Unavailable CAROLE ., DR WELCH Consulting Unavailable CAROLE ., DR WELCH Admitting Unavailable CAROLE ., DR WELCH Attending Unavailable ZIEBER, DR LYSSA Vaughan Consulting Unavailable CAROLE ., DR WELCH Attending Unavailable CAROLE ., DR WELCH Admitting Unavailable KARASIK ., DR MONROY Consulting Unavailabl e CAROLE ., DR WELCH Consulting Unavailable CAROLE ., DR WELCH Procedure Practitioner Unavail able .BOONE CELESTIN Consulting Unavailable CAROLE ., DR WELCH Attending Unavailable CAROLE ., DR WELCH Admitting Unavailable HOUSTON, DR CHEMA Argueta Consulting Unavailable MISC, DR GANDARA Primary Care Unavailable CAROLE ., DR WELCH Consulting Unavailable REQUEST, DR GARCIA LISTED Consulting Unavaila ble CAROLE ., DR WELCH Consulting Unavailable CAROLE ., DR WELCH Attending Unavailable CAROLE ., DR WELCH Admitting Unavailable CAROLE ., DR WELCH Consulting Unavailable CAROLE ., DR WELCH Attending Unavailable CAROLE ., DR WELCH Admitting Unavailable ZIEBER, DR LYSSA Vaughan Consulting Unavailable CAROLE ., DR WELCH Consulting Unavailable FAWWAD, LOZANO H Attending Unavailable FAWWAD, LOZANO H Admitting Unavailable ZIEBER, DR LYSSA Vaughan Consulting Unavailable CAROLE ., DR WELCH Consulting Unavailable CAROLE ., DR WELCH Attending Unavailable CAROLE ., DR WELCH Admitting Unavailable MISC, DR GANDARA Primary Care Unavailable CAROLE ., DR WELCH Consulting Unavailable CAROLE ., DR WELCH Attending Unavailable CAROLE ., DR WELCH Admitting Unavailable MISC, DR GANDARA Primary Care Unavailable CAROLE, EUSEBIO Attending Unavailable MARILY THOMAS Attending Unavailable CAROLEEUSEBIO Attending Unavailable Ann-Marie Ash MD Primary Care Provider ANN-MARIE ASH MD Primary Care Unavailable Abner Laguerre Attending Unavailable Abner Laguerre Admitting Unavailable Ann-Marie Ash MD Primary Care Provider [phone] GENNY JOHNSON Attending Unavailable ANN-MARIE ASH Referring Unavailable ANN-MARIE ASH Primary Care Unavailable ANN-MARIE ASH Referring Unavailable ANN-MARIE ASH Primary Care Unavailable GENNY ESPINOZA Attending Unavailable GENNY ESPINOZA Referring Unavailable ANN-MARIE ASH Primary Care Unavailable ANN-MARIE ASH Primary Care Unavailable Allergies Allergy Classification Reported Allergen(s) Allergy Type Date of Onset Reaction(s) Facility (1 source) No Known Medication Allergies; Translations: [No Known Medication Allergies] Propensity to adverse reactions to drug (disorder) [facility] Repository Medications Current Medications Medication Drug Class(es) Dates Sig (Normalized) Sig (Original) acetaminophen 325 mg oral tablet (2 sources) take 2 tablets by mouth every six hours as needed for pain acetaminophen (TYLENOL) 325 MG tablet Take 650 mg by mouth every 6 hours as needed for Pain 0 Active aspirin 81 mg chewable tablet (1 source) Platelet Aggregation Inhibitor, Nonsteroidal Anti-inflammatory Drug Start: 02-11-2024 aspirin 81 mg chewable tablet Indications: History of gestational hypertension Chew 1 tablet (81 mg total) and swallow in the morning. Start after 12 weeks gestation. 30 tablet 6 02/11/2024 Active 12 hr buPROPion hydrochloride 150 mg extended release oral tablet (3 sources) Aminoketone Start: 11-03-2023 End: 11-02-2024 buPROPion SR (Wellbutrin SR) 150 MG 12 hr tablet Indications: depression (CMS/HCC) Take 1 tablet (150 mg) by mouth in the morning and 1 tablet (150 mg) before bedtime. Take 1 tablet daily for 3 days, then take 1 tablet daily for 4 days. Quit smoking on day 7 and continue to take medication twice daily.. 180 tablet 1 11/03/2023 11/02/2024 Active doxylamine succinate 25 mg oral tablet (1 source) Start: 06-11-2021 End: 01-18-2024 take 1 tablet by mouth once daily as needed for nausea doxylamine (SLEEP AID, DOXYLAMINE,) 25 mg tablet Indications: Nausea and vomiting in Take 1 tablet (25 mg total) by mouth nightly as needed for sleep or nausea. 30 tablet 3 06/11/2021 01/18/2024 Discontinued (Therapy completed) etonogestrel 68 mg drug implant (3 sources) Progestin etonogestrel (NEXPLANON) 68 MG implant 68 mg by Subdermal route once 0 Active FLUoxetine 20 mg oral capsule (8 sources) Serotonin Reuptake Inhibitor Start: 02-27-2018 End: 05-24-2019 take 1 capsule by mouth once daily FLUoxetine (PROZAC) 20 MG capsule Indications: History of depression , Encounter for medication refill Take 1 capsule by mouth daily 30 capsule 0 02/27/2018 Active ibuprofen 800 mg oral tablet (8 sources) Nonsteroidal Anti-inflammatory Drug Start: 02-25-2018 End: 06-01-2019 ibuprofen (ADVIL;MOTRIN) tablet 800 mg 70-naxw-lusezb 9-dha 31 mg iron- 1 mg-200 mg capsule (2 sources) Start: 01-18-2024 take 1 capsule by mouth in the morning 05-pyfw-hboruj 9-dha 31 mg iron- 1 mg-200 mg capsule Indications: First trimester Take 1 capsule by mouth in the morning. 90 capsule 3 01/18/2024 Active vit 44-ygag-gqhtu-dha 18-1-350 mg capsule (1 source) Start: 05-30-2021 End: 01-18-2024 take 1 tablet by mouth once daily vit 55-ecin-adjpn-dha 18-1-350 mg capsule Indications: Amenorrhea , Encounter for preconception consultation Take 1 tablet by mouth daily. 90 capsule 4 05/30/2021 01/18/2024 Discontinued (Duplicate Listing) Completed/Discontinued Medications Medication Drug Class(es) Dates Sig (Normalized) Sig (Original) citalopram 20 mg oral tablet (5 sources) Serotonin Reuptake Inhibitor Start: 03-09-2023 End: 03-08-2024 take 1 tablet by mouth in the morning citalopram (CeleXA) 20 MG tablet Indications: 6 weeks follow-up Take 1 tablet (20 mg) by mouth in the morning. 30 tablet 11 03/09/2023 11/03/2023 Discontinued (Other) 9 hr methylphenidate 1.67 mg/hr transdermal system (4 sources) Central Nervous System Stimulant End: 05-24-2019 apply 1 dose transdermal route once daily methylphenidate (DAYTRANA) 15 MG/9HR Place 1 patch onto the skin daily. wear patch for 9 hours only each day 0 05/24/2019 Discontinued (Therapy completed) naproxen 500 mg oral tablet (4 sources) Nonsteroidal Anti-inflammatory Drug Start: 02-27-2018 End: 05-24-2019 take 1 tablet by mouth twice daily at mealtime naproxen (NAPROSYN) 500 MG tablet Indications: Chest wall pain Take 1 tablet by mouth 2 times daily (with meals) 20 tablet 0 02/27/2018 05/24/2019 Discontinued (Therapy completed) norethindrone 0.35 mg oral tablet (5 sources) Start: 03-09-2023 End: 03-08-2024 take 1 tablet by mouth in the morning norethindrone (Micronor) 0.35 MG tablet Indications: 6 weeks follow-up Take 1 tablet (0.35 mg) by mouth in the morning. 28 tablet 11 03/09/2023 11/03/2023 Discontinued (Other) omeprazole 20 mg delayed release oral capsule (4 sources) Proton Pump Inhibitor Start: 02-27-2018 End: 05-24-2019 take 1 capsule by mouth once daily before breakfast omeprazole (PRILOSEC) 20 MG delayed release capsule Indications: Epigastric pain Take 1 capsule by mouth every morning (before breakfast) 14 capsule 0 02/27/2018 05/24/2019 Discontinued (Therapy completed) ondansetron 4 mg disintegrating oral tablet (4 sources) Serotonin-3 Receptor Antagonist Start: 01-07-2019 End: 01-07-2019 ondansetron (ZOFRAN-ODT) disintegrating tablet 4 mg Start: 01-07-2019 End: 05-24-2019 take 1 tablet by mouth every eight hours as needed for nausea ondansetron (ZOFRAN ODT) 4 MG disintegrating tablet Take 1 tablet by mouth every 8 hours as needed for Nausea 20 tablet 0 01/07/2019 05/24/2019 Discontinued (Therapy completed) Problems Active Problems Problem Classification Problem Date Documented Date Episodic/Chronic Adjustment disorders (1 source) Family tension; Translations: [Reaction to severe stress, unspecified] Onset: 06-24-2021 06-24-2021 Chronic Anxiety disorders (4 sources) Anxiety; Translations: [Anxiety disorder, unspecified] Onset: 06-24-2021 06-24-2021 Chronic Contraceptive and procreative management (3 sources) Patient encounter status; Translations: [Encounter for other general counseling and advice on contraception] 03-05-2023 Episodic Menstrual disorders (9 sources) Amenorrhea; Translations: [Irregular menstruation, unspecified] Onset: 07-02-2022 Chronic Miscellaneous mental health disorders (2 sources) depression; Translations: [ depression] 11-03-2023 Episodic Mood disorders (4 sources) Depressive disorder; Translations: [Depressive disorder] Onset: 05-30-2021 05-30-2021 Chronic Other complications of (4 sources) Abnormal findings on screening of mother; Translations: [Abnormal chromosomal and genetic finding on screening of mother] Onset: 08-04-2021 08-04-2021 Episodic Other complications of (1 source) Varicella non-immune; Translations: [Supervision of other high risk pregnancies, unspecified trimester] Onset: 01-20-2024 01-20-2024 Episodic Other female genital disorders (3 sources) H/O: premature delivery; Translations: [Supervision of other high risk pregnancies, unspecified trimester] Onset: 02-11-2024 02-11-2024 Episodic Other injuries and conditions due to external causes (1 source) Finding of urine substance level; Translations: [Elevated urine levels of drugs, medicaments and biological substances] Onset: 01-20-2024 02-11-2024 Episodic Other nutritional; endocrine; and metabolic disorders (2 sources) Weight loss; Translations: [Abnormal weight loss] 11-03-2023 Episodic Other nutritional; endocrine; and metabolic disorders (2 sources) H/O: thyroid disorder; Translations: [Personal history of other endocrine, nutritional and metabolic disease] Onset: 02-11-2024 02-11-2024 Episodic Other and delivery including normal (20 sources) Encounter for supervision of normal , unspecified, first trimester; Translations: [Encounter for test, result positive] Onset: 09-29-2021 Episodic Residual codes; unclassified (1 source) Gestation period, 8 weeks; Translations: [8 weeks gestation of ] 02-11-2024 Episodic Residual codes; unclassified (2 sources) Personal history of other complications of , childbirth and the puerperium; Translations: [Personal history of other genital system and obstetric disorders] Onset: 02-11-2024 02-11-2024 Episodic Substance-related disorders (4 sources) Nicotine dependence, cigarettes, uncomplicated; Translations: [Smoker] Onset: 06-24-2021 06-24-2021 Chronic Unclassified (2 sources) Sprain of right ankle; Translations: [Sprain of right ankle, unspecified ligament, initial encounter] Unclassified (1 source) Evaluation finding; Translations: [ examination or test, negative result] Unclassified (1 source) CONTACT W/AND (SUSP) EXPOS COVID-19; Translations: [CONTACT W/AND (SUSP) EXPOS COVID-19] Onset: 02-12-2022 Unclassified (1 source) Initial Visit Onset: 01-18-2024 Unclassified (1 source) Cold Like Symptoms Onset: 03-22-2023 Past or Other Problems Problem Classification Problem Date Documented Date Episodic/Chronic Attention-deficit, conduct, and disruptive behavior disorders (2 sources) Attention deficit hyperactivity disorder, predominantly inattentive type; Translations: [Attention-deficit hyperactivity disorder, predominantly inattentive type] Onset: 05-30-2021 Resolved: 02-11-2024 05-30-2021 Chronic Fluid and electrolyte disorders (1 source) Dehydration; Translations: [DEHYDRATION] Onset: 09-02-2021 Episodic Headache; including migraine (1 source) Migraine without aura; Translations: [Migraine without aura, not intractable, without status migrainosus] Onset: 11-08-2022 Resolved: 02-11-2024 02-11-2024 Chronic Immunizations and screening for infectious disease (1 source) Contact with and (suspected) exposure to infections with a predominantly sexual mode of transmission; Translations: [CONTCT W EXPOS INFECT SEXUAL TRNSMS] Onset: 10-02-2021 Episodic Mood disorders (1 source) Mood disorders Onset: 02-09-2024 02-09-2024 Nausea and vomiting (4 sources) Nausea with vomiting, unspecified; Translations: [NAUSEA WITH VOMITING UNSPECIFIED] Onset: 08-29-2021 Episodic Nonspecific chest pain (1 source) Atypical chest pain; Translations: [Atypical chest pain] Episodic OB-related trauma to perineum and vulva (1 source) First degree perineal laceration during delivery; Translations: [FIRST DEG PERINEAL LAC DUR DELIV] Onset: 02-12-2022 Episodic Other complications of ; puerperium affecting management of mother (1 source) Smoking (tobacco) complicating childbirth; Translations: [SMOKING TOBACCO COMP CHILDBIRTH] Onset: 02-12-2022 Episodic Other complications of (2 sources) Smoking (tobacco) complicating , third trimester; Translations: [SMOKING TOBACCO COMP PREG 3RD TRI] Onset: 01-29-2022 Episodic Other complications of (4 sources) Maternal care for excessive growth, third trimester, not applicable or unspecified; Translations: [MAT CARE EXCSS FTL GRTH 3RD TRI UNS] Onset: 12-25-2021 Episodic Other complications of (4 sources) Injury, poisoning and certain other consequences of external causes complicating , third trimester; Translations: [INJ POISON OTH EXT COMP PG 3RD TRI] Onset: 2021 Episodic Other complications of (1 source) Other specified related conditions, second trimester; Translations: [OTH SPEC PREG RELATED COND 2ND TRI] Onset: 09-02-2021 Episodic Other disorders of stomach and duodenum (1 source) Indigestion; Translations: [Dyspepsia] Episodic Other screening for suspected conditions (not mental disorders or infectious disease) (9 sources) Encounter for suspected problem with amniotic cavity and membrane ruled out; Translations: [Encounter for screening for diabetes mellitus] Onset: 09-25-2021 Episodic Other upper respiratory disease (1 source) Pain in throat Onset: 03-22-2023 Episodic Residual codes; unclassified (1 source) Genetic carrier of other disease; Translations: [GENETIC CARRIER OF OTHER DISEASE] Onset: 02-12-2022 Episodic Residual codes; unclassified (1 source) 38 weeks gestation of ; Translations: [38 WEEKS GESTATION OF ] Onset: 02-12-2022 Episodic Residual codes; unclassified (1 source) 34 weeks gestation of ; Translations: [34 WEEKS GESTATION OF ] Onset: 01-07-2022 Episodic Residual codes; unclassified (1 source) 33 weeks gestation of ; Translations: [33 WEEKS GESTATION OF ] Onset: 12-27-2021 Episodic Residual codes; unclassified (1 source) 30 weeks gestation of ; Translations: [30 WEEKS GESTATION OF ] Onset: 12-07-2021 Episodic Residual codes; unclassified (1 source) 17 weeks gestation of ; Translations: [17 WEEKS GESTATION OF ] Onset: 09-02-2021 Episodic Substance-related disorders (2 sources) Drug use complicating childbirth; Translations: [Cannabis use, unspecified, uncomplicated] Onset: 02-12-2022 Episodic Superficial injury; contusion (4 sources) Contusion of chest; Translations: [Contusion of left lower leg, initial encounter] Onset: 12-07-2021 Episodic Unclassified (1 source) History of gestational hypertension 02-11-2024 Viral infection (1 source) Viral infection, unspecified; Translations: [Viral infection, unspecified] Onset: 03-22-2023 Episodic NEGATED: Highlighted row has been ruled out!Unclassified (1 source) No known active problems Results Test Name Value Interpretation Reference Range Facility US PREG LESS THAN 14 WKS WIT H TRANSVAGINALon 12-18-2024 US PREG LESS THAN 14 WKS WITH TRANSVAGINAL US PREG LESS THAN 14 WKS WITH TRANSVAGINAL US PREG LESS THAN 14 WKS WITH TRANSVAGINAL: 01/26/2024 9:30 AM Clinical: Check dates and viability. Real-time transabdominal and transvaginal sonography pelvis performed.. No comparison. There is a single intrauterine with cardiac activity 101 beats per minute. Curtiss-rump length of 2.6 mm corresponds to 5 week 6 day gestation. Amount amniotic fluid is normal. Placenta not well seen due to early gestational age. Maternal ovaries are unremarkable. Solid-appearing right ovarian corpus luteum measuring 1.7 cm. Small amount of cul-de-sac fluid seen. Prominent vessels in the left adnexa measuring up to 0.7 cm. Impression: * Single intrauterine 5 weeks 6 day gestation with cardiac activity. * Ultrasound HONEY 09/21/2024. Finalized by Syd Roque MD on 01/26/2024 12:54 PM Normal [facility] ACUTE HEPATITIS PANELon 01-08 ANTI HCV W/PCR REFLX Non-Reactive Normal NRCT [facility] Comment on above: Result Comment: NEW TEST METHOD NOTE If recent infection suspected, recommend repeat testing (>2 months). Zpxdkv-sj-nrojyf ratio is <1.00. Performed By: #### C BC, CMP, 2532-0, 3084-1, 56654-5, 38671-0, AHP, 72830-3, 43638-6, 46904-1 #### [facility] ([id number]) [address], [address] [place] [address] HEPATITIS A IGM Non-Reactive Normal NRCT [facility] Comment on above: Result Comment: NEW TEST METHOD Performed By: #### C BC, CMP, 2532-0, 3084-1, 03930-1, 30334-7, AHP, 29595-0, 30897-6, 53646-5 #### [facility] ([id number]) [address], [address] [place] [address] HEPATITIS B CORE [facility]: Result Comment: NEW TEST METHOD Performed By: #### C BC, CMP, 2532-0, 3084-1, 06356-5, 80992-1, AHP, 09147-0, 95106-3, 73618-1 #### [facility] ([id number]) [address], [address] [place] [address] HEPATITIS B SURF AG Non-Reactive Normal NRCT [facility] Comment on above: Result Comment: NEW TEST METHOD Performed By: #### C BC, CMP, 2532-0, 3084-1, 02504-3, 87710-9, AHP, 61172-6, 25432-7, 26534-0 #### [facility] ([id number]) [address], [address] [place] [address] COMPLETE BLOOD COUNTon 01-18 Erythrocyte distribution width (RBC) [Ratio] 13.2 % Normal 11.5-15.0 [facility] Comment on above: Performed By: #### C BC, CMP, 2532-0, 3084-1, 54437-1, 36875-0, AHP, 99510-7, 67145-4, 48128-3 #### [facility] ([id number]) [address], [address] [place] [address] Hematocrit (Bld) [Volume fraction] 41.8 % Normal 35-47 [facility] Comment on above: Performed By: #### C BC, CMP, 2532-0, 3084-1, 87266-6, 72539-2, AHP, 52927-5, 30654-7, 76276-9 #### [facility] ([id number]) [address], [address] [place] [address] Hemoglobin (Bld) [Mass/Vol] 14.3 g/dL Normal 11.7-15.5 [facility] Comment on above: Performed By: #### C BC, CMP, 2532-0, 3084-1, 28896-9, 09879-8, AHP, 76111-5, 76777-6, 34682-6 #### [facility] ([id number]) [address], [address] [place] [address] MCH (RBC) [Entitic mass] 31.7 pg Normal 27-34 [facility] Comment on above: Performed By: #### C BC, CMP, 2532-0, 3084-1, 19963-4, 54540-1, AHP, 06826-7, 32328-8, 86026-2 #### [facility] ([id number]) [address], [address] [place] [address] MCHC (RBC) [Mass/Vol] 34.3 g/dL Normal 32-36 [facility] Comment on above: Performed By: #### C BC, CMP, 2532-0, 3084-1, 00636-3, 66004-2, AHP, 84101-1, 96036-7, 42188-2 #### [facility] ([id number]) [address], [address] [place] [address] MCV (RBC) [Entitic vol] 92 fL Normal 80-100 [facility] Comment on above: Performed By: #### C BC, CMP, 2532-0, 3084-1, 90894-3, 81854-1, AHP, 53581-3, 71783-6, 26824-5 #### [facility] ([id number]) [address], [address] [place] [address] Platelet mean volume (Bld) [Entitic vol] 8.8 fL Normal 7-12 [facility] Comment on above: Performed By: #### C BC, CMP, 2532-0, 3084-1, 85110-3, 67098-2, AHP, 20835-2, 80880-0, 86884-2 #### [facility] ([id number]) [address], [address] [place] [address] Platelets (Bld) [#/Vol] 238 10*3/uL Normal 150-450 [facility] Comment on above: Performed By: #### C BC, CMP, 2532-0, 3084-1, 45505-5, 33342-6, AHP, 44737-1, 76492-3, 46132-5 #### [facility] ([id number]) [address], [address] [place] [address] RBC COUNT 4.52 X10E12/L Normal 3.80-5.20 [facility] Comment on above: Performed By: #### C BC, CMP, 2532-0, 3084-1, 76699-7, 79594-8, AHP, 13273-7, 90082-2, 37006-2 #### [facility] ([id number]) [address], [address] [place] [address] WBC (Bld) [#/Vol] 5.0 10*3/uL Normal 4.0-11.0 [facility] Comment on above: Performed By: #### C BC, CMP, 2532-0, 3084-1, 45562-5, 41985-8, AHP, 97617-8, 42099-3, 36658-1 #### [facility] ([id number]) [address], [address] [place] [address] COMPREHENSIVE METABOLIC PANE Eric 01-19-2024 Albumin [Mass/Vol] 4.4 g/dL Normal 3.2-5.3 [facility] Comment on above: Performed By: #### C BC, CMP, 2532-0, 3084-1, 97026-5, 53910-5, AHP, 16802-9, 40789-3, 95672-8 #### [facility] ([id number]) [address], [address] [place] [address] ALP [Catalytic activity/Vol] 42 U/L Normal 39-130 [facility] Comment on above: Performed By: #### C BC, CMP, 2532-0, 3084-1, 00977-2, 49118-3, AHP, 44645-0, 24026-4, 59407-5 #### [facility] ([id number]) [address], [address] [place] [address] ALT [Catalytic activity/Vol] 17 U/L Normal 0-31 [facility] Comment on above: Performed By: #### C BC, CMP, 2532-0, 3084-1, 53607-5, 20344-8, AHP, 89987-2, 88630-9, 51223-7 #### [facility] ([id number]) [address], [address] [place] [address] Anion gap [Moles/Vol] 9 mmol/L Normal 5-15 [facility] Comment on above: Performed By: #### C BC, CMP, 2532-0, 3084-1, 40646-9, 69164-7, AHP, 25689-6, 45643-8, 58096-8 #### [facility] ([id number]) [address], [address] [place] [address] AST [Catalytic activity/Vol] 17 U/L Normal 0-41 [facility] Comment on above: Performed By: #### C BC, CMP, 2532-0, 3084-1, 51156-4, 56326-6, AHP, 02267-2, 73211-6, 26660-0 #### [facility] ([id number]) [address], [address] [place] [address] Bilirubin [Mass/Vol] 0.6 mg/dL Normal 0.3-1.2 [facility] Comment on above: Performed By: #### C BC, CMP, 2532-0, 3084-1, 85587-2, 75870-4, AHP, 94179-8, 44492-0, 55573-6 #### [facility] ([id number]) [address], [address] [place] [address] Calcium [Mass/Vol] 8.9 mg/dL Normal 8.5-10.5 [facility] Comment on above: Performed By: #### C BC, CMP, 2532-0, 3084-1, 36473-5, 35650-3, AHP, 99654-4, 88651-9, 17279-4 #### [facility] ([id number]) [address], [address] [place] [address] Chloride [Moles/Vol] 104 mmol/L Normal 98-109 [facility] Comment on above: Performed By: #### C BC, CMP, 2532-0, 3084-1, 83070-4, 43315-8, AHP, 90368-7, 87561-9, 16212-0 #### [facility] ([id number]) [address], [address] [place] [address] CO2 [Moles/Vol] 28 mmol/L Normal 22-32 [facility] Comment on above: Performed By: #### C BC, CMP, 2532-0, 3084-1, 14476-7, 16036-5, AHP, 13551-2, 51120-0, 24209-9 #### [facility] ([id number]) [address], [address] [place] [address] Creatinine [Mass/Vol] 0.68 mg/dL Normal 0.40-1.00 [facility] Comment on above: Result Comment: METH OD TRACEABLE TO IDMS STANDARD Performed By: #### C BC, CMP, 2532-0, 3084-1, 06528-1, 56432-8, AHP, 88582-3, 97889-2, 03870-2 #### [facility] ([id number]) [address], [address] [place] [address] eGFR (CKD-EPI) NON-RACE DEPENDENT >90 Normal >59 [facility] Comment on above: Result Comment: Reported eGFR is based on the CKD-EPI 2020 equation that does not use a race coefficient. Performed By: #### C BC, CMP, 2532-0, 3084-1, 06672-0, 75885-9, AHP, 34347-5, 80168-9, 73074-2 #### [facility] ([id number]) [address], [address] [place] [address] Glucose [Mass/Vol] 84 mg/dL Normal 65-99 [facility] Comment on above: Performed By: #### C BC, CMP, 2532-0, 3084-1, 86957-0, 78137-9, AHP, 36740-2, 36787-0, 88774-5 #### [facility] ([id number]) [address], [address] [place] [address] Potassium [Moles/Vol] 3.4 mmol/L Low 3.5-5.0 [facility] Comment on above: Performed By: #### C BC, CMP, 2532-0, 3084-1, 90624-9, 66785-7, AHP, 02429-1, 73041-8, 62055-6 #### [facility] ([id number]) [address], [address] [place] [address] Protein [Mass/Vol] 7.0 g/dL Normal 6.0-8.0 [facility] Comment on above: Performed By: #### C BC, CMP, 2532-0, 3084-1, 80111-8, 99626-1, AHP, 91325-4, 06092-7, 86253-0 #### [facility] ([id number]) [address], [address] [place] [address] Sodium [Moles/Vol] 141 mmol/L Normal 134-146 [facility] Comment on above: Performed By: #### C BC, CMP, 2532-0, 3084-1, 12803-2, 84423-5, AHP, 89363-6, 97952-4, 69039-2 #### [facility] ([id number]) [address], [address] [place] [address] Urea nitrogen [Mass/Vol] 9 mg/dL Normal 5-23 [facility] Comment on above: Performed By: #### C BC, CMP, 2532-0, 3084-1, 61693-3, 08272-4, AHP, 78406-9, 06321-3, 21923-3 #### [facility] ([id number]) [address], [address] [place] [address] Creatinine (U) [Mass/Vol]on 01-19-2024 URINE CREATININE,RDM 153.52 mg/dL Normal [facility] Comment on above: Performed By: #### 6 556-5 #### [facility] ([id number]) [address] [place] [address] DRUG SCREEN, URINEon 024 AMPHETAMINE/METHAMP Negative Normal NEG [facility] Comment on above: Result Comment: AMPH /METH screening cut off = 1000 ng/mL Performed By: #### 6 556-5 #### [facility] ([id number]) [address] [place] [address] BARBITURATES Negative Normal NEG [facility] Comment on above: Result Comment: Basilia iturates screening cut off value = 200 ng/mL Performed By: #### 6 556-5 #### [facility] ([id number]) [address] [place] [address] BENZODIAZEPINES Negative Normal NEG [facility] Comment on above: Result Comment: Miguelangel odiazepines screening cut off value = 200 ng/mL Performed By: #### 6 556-5 #### [facility] ([id number]) [address] [place] [address] [place] [address] CANNABINOIDS Positive Abnormal NEG [facility] Comment on above: Result Comment: Conf irmation available upon request. Cannabinoids/THC screening cut off value = 50 ng/mL Performed By: #### 6 556-5 #### [facility] ([id number]) [address] [place] [address] COCAINE METABOLITE Negative Normal NEG [facility] Comment on above: Result Comment: Coca ine screening cut off value = 300 ng/mL Performed By: #### 6 556-5 #### [facility] ([id number]) [address] [place] [address] ECSTASY Negative Normal NEG [facility] Comment on above: Result Comment: Ecst asy screening cut off value = 500 ng/mL This report is intended for use in clinical monitoring or management of patients. Performed By: #### 6 556-5 #### [facility] ([id number]) [address] [place] [address] [place] [address] METHADONE Negative Normal NEG [facility] Comment on above: Result Comment: Meth adone screening cut off value = 300 ng/mL. Performed By: #### 6 556-5 #### [facility] ([id number]) [address] [place] [address] OPIATES Negative Normal NEG [facility] Comment on above: Result Comment: Opia memo screening cut off value = 300 ng/mL NOTE: This test is used for the detection of codeine, hydrocodone (>1000 ng/mL), morphine and hydromorphone (>900 ng/mL) in urine. Performed By: #### 6 556-5 #### [facility] ([id number]) [address] [place] [address] [place] [address] OXYCODONE Negative Normal NEG [facility] Comment on above: Result Comment: Oxyc odone screening cut off value = 300 ng/mL NOTE: This test is used for the detection of oxycodone and oxymorphone in urine. Performed By: #### 6 556-5 #### [facility] ([id number]) [address] [place] [address] PHENCYCLIDINE Negative Normal NEG [facility] Comment on above: Result Comment: Phen cyclidine screening cut off value = 25 ng/mL Performed By: #### 6 556-5 #### [facility] ([id number]) [address] [place] [address] HCG.beta subunit IA 3rd IS Q non 01-19-2024 HCG.beta subunit Qn 6499 m[IU]/mL Normal Pr [facility] Comment on above: Result Comment: NEW REFERENCE RANGE WEEKS (SINCE LMP) MIU/mL 3 WEEKS 5 - 50 4 WEEKS 5 - 426 5 WEEKS 18 - 7,340 6 WEEKS 1,080 - 56,500 7-8 WEEKS 7,650 - 229,000 9-12 WEEKS 25,700 - 288,000 13-16 WEEKS 13,300 - 254,000 17-24 WEEKS 4,060 - 165,400 25-40 WEEKS 3,640 - 117,000 MALES AND NON- FEMALES - <5 MIU/mL This test has been FDA approved for use in only. Elevated levels are not necessarily diagnostic for trophoblastic or nontrophoblastic neoplasms. Performed By: #### C BC, CMP, 2532-0, 3084-1, 71943-3, 81459-8, P, 40241-3, 14266-2, 57524-2 #### [facility] ([id number]) [address] [place] [address], [address] [place] [address] HIV 1+2 Ab+HIV1 p24 Ag IA Ql on 01-19-2024 HIV 1 and 2 Ab/Ag Screen Non-Reactive Normal NRCT [facility] Comment on above: Result Comment: NEW TEST METHOD NOTE This information has been disclosed to you from confidential records protected from disclosure by state law. You shall make no further disclosure of this information without the specific, written and informed release of the individual to whom it pertains, or as otherwise permitted by state law. A general authorization for the release of medical or other information is not sufficient for the purpose of the release of HIV test results or diagnoses. Performed By: #### C BC, CMP, 2532-0, 3084-1, 25384-2, 26363-9, AHP, 09385-4, 03926-6, 56812-5 #### [facility] ([id number]) [address], [address] [place] [address] LDH [Catalytic activity/Vol] on 01-19-2024 LDH 163 U/L Normal 100-235 [facility] Comment on above: Performed By: #### C BC, CMP, 2532-0, 3084-1, 36404-6, 97180-3, AHP, 12134-2, 41245-9, 63697-3 #### [facility] ([id number]) [address], [address] [place] [address] PROTEIN CREAT RATIOon 2023 RANDOM URINE PROTEIN 100 mg/L Normal <120 [facility] Comment on above: Performed By: #### 6 556-5 #### [facility] ([id number]) [address] [place] [address] U/PRO/DATABASE SPECIALIST RATIO CALC 0.06 Normal <0.2 [facility] Comment on above: Result Comment: Neph rotic Syndrome is associated with ratios >3.5 Performed By: #### 6 556-5 #### [facility] ([id number]) [address] [place] [address] URINE CREATININE,RDM 155.31 mg/dL Normal [facility] Comment on above: Performed By: #### 6 556-5 #### [facility] ([id number]) [address] [place] [address] Rubella virus Ab Ql (S)on RUBELLA IMMUNE IgG 2.5 AI Normal [facility] Comment on above: Result Comment: Interpretation-------- <0.8 NEGATIVE-considered Not Immune 0.8-0.9 EQUIVOCAL-consider retesting with new specimen >0.9 POSITIVE-considered Immune Performed By: #### 6 556-5 #### [facility] ([id number]) [address] [place] [address] T. pallidum IgG+IgM IA Ql (S )on 01-19-2024 Syphilis Total 0.8 AI Normal 0.0-0.8 [facility] Comment on above: Result Comment: NON REACTIVE No serologic evidence of infection to Treponema pallidum (syphilis). Repeat testing may be considered in patients with suspected acute or primary syphilis in 2 to 4 weeks. Performed By: #### 6 556-5 #### [facility] ([id number]) [address] [place] [address] URIC ACIDon 01-19-2024 Urate [Mass/Vol] 2.1 mg/dL Low 2.6-7.2 [facility] Comment on above: Performed By: #### C BC, CMP, 2532-0, 3084-1, 88510-3, 73530-6, AHP, 32446-8, 38172-3, 86734-2 #### [facility] ([id number]) [address], [address] [place] [address] URINALYSISon 01-19-2024 Bilirubin Ql (U) Negative Normal NEG [facility] Comment on above: Performed By: #### U A #### [facility] ([id number]) [address], [address] [place] [address] BLOOD/HGB Negative Normal NEG [facility] Comment on above: Performed By: #### U A #### [facility] ([id number]) [address], [address] [place] [address] Color (U) YELLOW Normal YELLOW [facility] Comment on above: Performed By: #### U A #### [facility] ([id number]) [address], [address] [place] [address] Glucose Ql (U) Negative Normal NEG [facility] Comment on above: Performed By: #### U A #### [facility] ([id number]) [address], [address] [place] [address] Ketones Ql (U) Negative Normal NEG [facility] Comment on above: Performed By: #### U A #### [facility] ([id number]) [address], [address] [place] [address] Leukocyte esterase Test strip Ql (U) Negative Normal NEG [facility] Comment on above: Performed By: #### U A #### [facility] ([id number]) [address], [address] [place] [address] MUCOUS PRESENT Abnormal NONE [facility] Comment on above: Performed By: #### U A #### [facility] ([id number]) [address], [address] [place] [address] Nitrite Ql (U) Negative Normal NEG [facility] Comment on above: Performed By: #### U A #### [facility] ([id number]) [address], [address] [place] [address] pH (U) 6.5 [pH] Normal 5.0-8.5 [facility] Comment on above: Performed By: #### U A #### [facility] ([id number]) [address], [address] [place] [address] Protein Ql (U) Trace Abnormal NEG [facility] Comment on above: Performed By: #### U A #### [facility] ([id number]) [address] [address] [place] [address] R.B.CELLS 1 /hpf Normal 0-5 [facility] Comment on above: Performed By: #### U A #### [facility] ([id number]) [address], [facility] [address] [place] [address] Specific gravity (U) [Rel density] 1.017 Normal 1.003-1.035 [facility] Comment on above: Performed By: #### U A #### [facility] ([id number]) [address] [address] [place] [address] SQUAMOUS EPITHELIUM 8 /hpf High 0-5 [facility] Comment on above: Performed By: #### U A #### [facility] ([id number]) [address] [address] [place] [address] TURBIDITY HAZY Abnormal CLEAR [facility] Comment on above: Performed By: #### U A #### [facility] ([id number]) [address] [address] [place] [address] Urobilinogen (U) [Mass/Vol] mg/dL Normal <1.1 [facility] Comment on above: Performed By: #### U A #### [facility] ([id number]) [address] [address] [place] [address] W.B.CELLS 2 /hpf Normal 0-5 [facility] Comment on above: Performed By: #### U A #### [facility] ([id number]) [address] [address] [place] [address] URINE CULTUREon 01-19-2024 Bacteria identified Cx Nom (U) CULTURE RESULTS NO GROWTH AT <1000 CFU/mL Normal [facility] Comment on above: Performed By: #### 6 556-5 #### [facility] ([id number]) [address] [place] [address] VZV IgG IA Ql (S)on 01-19-20 24 VARICELLA IgG 0.2 AI Normal <0.9 [facility] Comment on above: Result Comment: Interpretation-------- <0.9 Negative 0.9 - 1.0 Equivocal >1.0 Positive Performed By: #### 6 556-5 #### [facility] ([id number]) [address] [place] [address] ABORhon 01-11-2024 ABO and Rh group Nom (Bld) Hx Check: Not Found Anti-A: 4+ Anti-B: 0 Anti-D: 4+ DCon: NT A1: 0 B: 4+ ABORh Interp: A POS Invalid Interpretation Code [facility] Comment on above: Performed By: #### 1 [id number], [id number], [id number] #### [facility] (DEFAULT) [address] [place] [address] ABORh Retypeon 01-11-2024 ABO and Rh group Nom (Bld) Ordered by Discern. Anti-A: 4+ Anti-B: 0 Anti-D: 4+ DCon: NT A1: 0 B: 4+ ABORh Retype: A POS Invalid Interpretation Code [facility] Comment on above: Performed By: #### 1 [id number], [id number], [id number] #### [facility] (DEFAULT) [address] [place] [address] ED Clinical Summaryon 2023 ED Clinical Summary [facility] - Emergency Department [address] [place], [place] [id number] ED Clinical Summary PERSON INFORMATION Name: DUNG HAWK [place]KE Age: 23 Years Sex: FEMALE : 2000 MRN: Acct#: Visit Reason: Test; PREGANT, WANT TEST DONE, SPOTTING BLOOD Arrival: 01/11/2024 10:11:43 Discharge: 01/11/2024 11:59:00 LOS: 000 01:48 Check In: 01/11/2024 10:11:43 Checkout:01/11/2024 11:59:00 Address: [address] [place] [address] PCP: ANN-MARIE ASH MD PROVIDER INFORMATION Provider Role Assigned Unassigned Eli FERGUSON, Tammy ED Nurse 01/11/2024 10:14:58 Abner Laguerre MD ED Provider 01/11/2024 10:19:40 VITALS INFORMATION Vital Sign Triage Latest Temperature Tympanic Temperature Temporal Artery Pulse Rate 6 bpm 6 bpm O2 Sat 99 % 99 % Respiratory Rate 16 br/min 16 br/min Blood Pressure /84 mmHg /84 mmHg MEDICAL INFORMATION Medications Given: Allergy Information: No Known Medication Allergies PHYSICIAN DOCUMENTATION DISCHARGE INFORMATION: Discharge Disposition: Home Discharge Location: Home PATIENT EDUCATION INFORMATION Instructions: Bacterial Vaginosis, [id number] Follow-Up: With: Address: When: MIHIR DEL VALLE, ANN-MARIE Dc [address] [place] [address] Within 3 to 5 days DIAGNOSIS: 1:Vaginal bleeding during ; 2:Bacterial vaginosis in ; 3:; Other specified bacterial agents as the cause of diseases classified elsewhere Patient Understands: Yes - Patient/family/caregi john verbalizes understanding of instructions given Comment: [facility] ED Note-Nursingon 01-11-2024 ED Note-Nursing Ambulates with stead y gait to room 8. AAOx3. ROTH. Skin warm,dry, pink. REspirations regular,, even. States took a test wednesday and it was positive. Had some pink drainage this AM when she wiped after going to the bathroom. Wants to know how she is. Denies cramps, ABD pain. :Has been moving furniture because she is moving places. , Para III, has 2 live children and has had [address] Laguerre in for exam. Normal [facility] ED Patient Summaryon 024 ED Patient Summary [facility] - Emergency Department [address] [place] [id number] PATIENT DISCHARGE INSTRUCTIONS Patient Information Name: HAWK KING Age: 23 Years Date of : 2000 Reason For Visit: Test; PREGANT, WANT TEST DONE, SPOTTING BLOOD Arrival Time: 01/11/2024 10:11:43 Primary Care Physician: ANN-MARIE ASH MD Attending Physician: Abner Laguerre MD Comment: Visit Diagnosis: Diagnoses This Visit Bacterial vaginosis in (O23.599) Other specified bacterial agents as the cause of diseases classified elsewhere (B96.89) (Z34.90) Test ([id number]) Vaginal bleeding during (O46.90) The Pharmacy at [facility] is open Wednesday through Wednesday from 9A to 6P and Wednesday and Wednesday from 9A to 5P Prescription Information: If you have been given a prescription for narcotics, seek immediate medical attention if you have any difficulty breathing or any sudden status changes such as confusion and sleepiness. If you or anyone you know is experiencing suicidal thoughts, mental health, alcohol and/or drug addiction problems; contact the [facility] 31/08 Crisis Hotline -Text 5WAIG no 710649. If you received any narcotics, sedation, or any other medication that causes drowsiness for the next 24 hours, unless otherwise directed: ? Do not drive a car. ? Do not operate machinery such as power tools, lawn mowers, drills, sewing machines, or stoves ? Avoid alcoholic beverages and drugs for allergies, nerves, or sleep ? Do not make important personal or business decisions or sign any legal documents With: Address: When: ANN-MARIE ASH MD [address] [place] [address] [id number] Within 3 to 5 days Medication Information: The exam and treatment you received today in the [facility] Emergency Department were for an urgent problem and are not intended as complete care. It is important for you to follow up with a doctor, nurse practitioner, or physician?s assistant infant toddler teacher for ongoing care. If your symptoms become worse or you do not improve as expected and you are unable to reach your usual health care provider, you should return to the Emergency Department, we are available 24 hours a day. For those patients who have received Radiology results, the interpretation of your X-ray as given to you by our Emergency Department physician is only a preliminary report. The Radiologist will review your films and if there is a change in the diagnosis you will be notified by phone. Please make sure you have provided a working phone number so we can reach you if necessary. In the event that you had a lab culture while you were a patient in the Emergency Department, you will be notified by phone if there is a need to change your antibiotic. Please make sure you have provided a working phone number so we can reach you if necessary. [facility] Emergency Department has provided you with a complete list of medications post discharge. Please inform your chemical checker/provider of your visit and for further instruction on these medications. Any specific questions regarding your chronic medications and dosages should be discussed with your primary care physician(s) and/or pharmacist. New Medications [facility] [address], [place] [id number], [phone] metroNIDAZOLE (metroNIDAZOLE 500 mg oral tablet) 1 tab(s) Oral (given by mouth) 3 times per day for 5 Days. Refills: 0. multivitamin, ( Multivitamins with FA 0.8 mg oral tablet) 1 tab(s) Oral (given by mouth) every day. Refills: 0. Visit Information Allergies: Substance Reaction Symptoms Type Comments No Known Medication Allergies Drug Vital Signs: Vitals and Measurements this Visit (last charted value for your 01/11/2024 visit) Vital Signs This Visit Temperature Oral: 36.5 DegC Peripheral Pulse Rate: 6 bpm Respiratory Rate: 16 br/min Systolic Blood Pressure: 122 mmHg Diastolic Blood Pressure: 84 mmHg SpO2: 99 % Oxygen Therapy: Room air Measurements This Visit Height/Length Measured: 157.48 cm Weight Measured: 52.16 kg Weight Dosin.160 kg Body Mass Index: 21.03 kg/m2 Problems List: Problem Onset Comments Attention deficit disorder Depression Migraine headache without aura Patient Education Bacterial Vaginosis Take the antibiotic as prescribed. Follow-up with your CEMENT STORAGE WORKER to review this emergency department visit. Return to the emergency department for any worsening symptoms. Bacterial vaginosis is an infection of the vagina. It happens when too many normal germs (healthy bacteria) grow in the vagina. This infection can make it easier to get other infections from sex (STIs). It is very important for women to get treated. This infection can cau (more content not included)... [facility] Test Urine 1on U Preg Positive [facility] Comment on above: Performed By: #### 1 [id number], [id number], [id number] #### [facility] (DEFAULT) [address] [place] [address] U Preg Internal Control Pass [facility] Comment on above: Performed By: #### 1 [id number], [id number], [id number] #### [facility] (DEFAULT) [address] [place] [address] UA [id number] 01-11-2024 UA Bacteria 1+ [facility] Comment on above: Order Comment: Urina lysis Microscopic order added on by AlgEvolve Expert Rules system. Performed By: #### 1 [id number], [id number], [id number] #### [facility] (DEFAULT) [address] [place] [address] UA Comment. Clue Cells Seen [facility] Comment on above: Order Comment: Urina lysis Microscopic order added on by [employer] Expert Rules system. Performed By: #### 1 [id number], [id number], [id number] #### [facility] (DEFAULT) [address] [place] [address] UA RBC 0-2 [facility] Comment on above: Order Comment: Urina lysis Microscopic order added on by [employer] Expert Rules system. Performed By: #### 1 [id number], [id number], [id number] #### [facility] (DEFAULT) [address] [place] [address] UA Squam Epi Few [facility] Comment on above: Order Comment: Urina lysis Microscopic order added on by Discern Expert Rules system. Performed By: #### 1 [id number], [id number], [id number] #### [facility] (DEFAULT) [address] [place] [address] UA WBC 3-5 [facility] Comment on above: Order Comment: Urina lysis Microscopic order added on by Discern Expert Rules system. Performed By: #### 1 [id number], [id number], [id number] #### [facility] (DEFAULT) [address] [place] [address] UA w Culture if Ind Standard on 01-11-2024 Breakpoint UA [facility] Comment on above: Performed By: #### 1 [id number], [id number], [id number] #### [facility] (DEFAULT) [address] [place] [address] Color (U) Yellow [facility] Comment on above: Performed By: #### 1 [id number], [id number], [id number] #### [facility] (DEFAULT) [address] [place] [address] Culture? Indicated Invalid Interpretation Code [facility] Comment on above: Result Comment: Resu lt created by rule GL_MAGR_ADD_UA_CULT Performed By: #### 1 [id number], [id number], [id number] #### [facility] (DEFAULT) [address] [place] [address] 26662 Glucose (U) [Mass/Vol] Negative [facility] Comment on above: Performed By: #### 1 [id number], [id number], [id number] #### [facility] (DEFAULT) [address] [place] [address] 41837 Ketones Ql (U) Negative [facility] Comment on above: Performed By: #### 1 [id number], [id number], [id number] #### [facility] (DEFAULT) [address] [place] [address] 49728 Micro? Indicated Invalid Interpretation Code [facility] Comment on above: Result Comment: Resu lt created by rule GL_MAGR_ADD_UA_MICRO Result created by rule GL_MAGR_ADD_UA_MICRO Performed By: #### 1 [id number], [id number], [id number] #### [facility] (DEFAULT) [address] [place] [address] UA Bilirubin Negative Normal [facility] Comment on above: Performed By: #### 1 [id number], [id number], [id number] #### [facility] (DEFAULT) [address] [place] [address] UA Blood Negative Normal NEGATIVE [facility] Comment on above: Performed By: #### 1 [id number], [id number], [id number] #### [facility] (DEFAULT) [address] [place] [address] UA Clarity CLEAR Normal CLEAR [facility] Comment on above: Performed By: #### 1 [id number], [id number], [id number] #### [facility] (DEFAULT) [address] [place] [address] UA Leuk Est SMALL Abnormal NEGATIVE [facility] Comment on above: Performed By: #### 1 [id number], [id number], [id number] #### [facility] (DEFAULT) [address] [place] [address] UA Nitrite Negative Normal NEGATIVE [facility] Comment on above: Performed By: #### 1 [id number], [id number], [id number] #### [facility] (DEFAULT) [address] [place] [address] 39740 UA pH 6.5 Normal 5-8 [facility] Comment on above: Performed By: #### 1 [id number], [id number], [id number] #### [facility] (DEFAULT) [address] [place] [address] UA Protein Negative Normal NEGATIVE [facility] Comment on above: Performed By: #### 1 [id number], [id number], [id number] #### [facility] (DEFAULT) [address] [place] [address] 79531 UA Spec Grav 1.025 Normal 1.001-1.035 [facility] Comment on above: Performed By: #### 1 [id number], [id number], [id number] #### [facility] (DEFAULT) [address] [place] [address] UA Urobilinogen 1.0 mg/dL Normal 0.2-1.0 [facility] Comment on above: Performed By: #### 1 [id number], [id number], [id number] #### [facility] (DEFAULT) [address] [place] [address] Urine Source Clean Catch Normal [facility] Comment on above: Performed By: #### 1 [id number], [id number], [id number] #### [facility] (DEFAULT) [address] [place] [address] hCG Quantitativeon hCG Quantitative 149.6 mIU/mL High 0.0-0.6 [facility] Comment on above: Result Comment: Post -Menopausal Reference Range is: 0.1-11.6 mIU/mL Performed By: #### 1 [id number] #### [facility] (DEFAULT) [address] [place] [address] ALL CBC WITH AUTO DIFFon BASOPHILS ABSOLUTE AUTO 0.0 [facility] Basophils/100 WBC (Bld) 0.5 % 0.2 - 2.0 % [facility] Eosinophils/100 WBC (Bld) 3.9 % 0.9 - 7.0 % [facility] Erythrocyte distribution width (RBC) [Ratio] 12.5 % 11.0 - 15.0 % [facility] Hematocrit (Bld) [Volume fraction] 42.3 % 36.0 - 48.0 % [facility] Hemoglobin (Bld) [Mass/Vol] 14.4 g/dL 12.0 - 16.0 g/dL [facility] IMMATURE GRANULOCYTES ABS AUTO 0.01 [facility] Immature granulocytes/100 WBC (Bld) 0.2 % 0.0 - 0.5 % [facility] LYMPHOCYTES ABSOLUTE AUTO 2.3 [facility] Lymphocytes/100 WBC (Bld) 35.7 % 20.5 - 60.0 % [facility] MCH (RBC) [Entitic mass] 31.3 pg 26.7 - 34.0 pg [facility] MCHC (RBC) [Mass/Vol] 34.0 g/dL 29.9 - 35.2 g/dL [facility] MCV (RBC) [Entitic vol] 92.0 fL 81.0 - 99.0 fL [facility] MONOCYTES ABSOLUTE AUTO 0.5 [facility] Monocytes/100 WBC (Bld) 7.2 % 1.7 - 12.0 % [facility] NEUTROPHILS ABSOLUTE AUTO 3.4 [facility] Neutrophils/100 WBC (Bld) 52.5 % 43.0 - 75.0 % [facility] Platelet mean volume (Bld) [Entitic vol] 10.1 fL 9.5 - 13.5 fL [facility] TBH EO # 0.3 [facility] TB PLT 281 [facility] RBC 4.60 [facility] WBC 6.5 [facility] Outside Recordson 03-23-2023 Outside Records [id number]# 1.00OTGTIFF Normal [facility] RAPID STREP SCR NURSINGon S. pyogenes Ag EIA Ql (Throat) Negative Normal NEG [facility] Comment on above: Performed By: #### 6 [id number] #### [facility] ([id number]) [address] [place] [address], [place] [address] SARS/FLU A+B/RSV by NAAT/Mol ecularon 03-22-2023 SARS/FLU A+B/RSV by NAAT/Molecular FLU A PCR Negative (qualifier value) FLU B PCR Negative (qualifier value) RSV by PCR Negative (qualifier value) SARS CoV 2 Not detected (qualifier value) NOTE The Xpert Xpress SARS-CoV-2/Flu/RSV Plus test is a rapid, multiplexed real-time RT-PCR test intended for the simultaneous qualitative detection and differentiation of SARS-CoV-2, influenza A, influenza B and respiratory syncytial virus (RSV) viral RNA from individuals suspected of respiratory viral infection consistent with COVID-19 by their healthcare provider. This test has not been validated in asymptomatic patients. The Xpert Xpress SARS-CoV-2 test is intended for use by qualified and trained operators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 Quantitative RPR and Confirmatory Treponema pallidum Antibodies (974050). Performed By: #### R PRQ #### [facility] [address] [place] [address] Dr. Qi Benedict RUBELLA AB IGGon 09-30-2021 Rubella Antibodies, IgG 1.44 index Normal Immune >0.99 [facility] Comment on above: Result Comment: Non- immune <0.90 Equivocal 0.90 - 0.99 Immune >0.99 Performed By: #### D RUGRPD #### [facility] [address] [place] [address] Dr. Qi Benedict VARICELLA IGG ABon Varicella Zoster IgG <135 Critically low Immune >165 [facility] Comment on above: Result Comment: Nega tive <135 Equivocal 135 - 165 Positive >165 A positive result generally indicates exposure to the pathogen or administration of specific immunoglobulins, but it is not indication of active infection or stage of disease. Performed By: #### V ARCEL #### [facility] [address] [place] [address] Dr. Qi Benedict CBC AUTO DIFFon 09-29-2021 BASO # 0.0 103/ul Normal 0.0-0.1 [facility] Comment on above: Performed By: #### C BC #### [facility] [address] [place] [address] Dr. Qi Benedict Basophils/100 WBC (Bld) 0.3 % Normal 0.2-2.0 [facility] Comment on above: Performed By: #### C BC #### [facility] [address] [place] [address] Dr. Qi Benedict EO # 0.1 103/ul Normal 0.0-0.7 [facility] Comment on above: Performed By: #### C BC #### [facility] [address] [place] [address] Dr. Qi Benedict Eosinophils/100 WBC (Bld) 1.1 % Normal 0.9-7.0 [facility] Comment on above: Performed By: #### C BC #### [facility] [address] [place] [address] Dr. Qi Benedict Erythrocyte distribution width (RBC) [Ratio] 12.7 % Normal 11.0-15.0 [facility] Comment on above: Performed By: #### C BC #### [facility] [address] [place] [address] Dr. Qi Benedict Hematocrit (Bld) [Volume fraction] 35.7 % Critically low 36.0-48.0 [facility] Comment on above: Performed By: #### C BC #### [facility] [address] [place] [address] Dr. Qi Benedict Hemoglobin (Bld) [Mass/Vol] 11.9 g/dL Critically low 12.0-16.0 [facility] Comment on above: Performed By: #### C BC #### [facility] [address] [place] [address] Dr. Qi Benedict IG # 0.04 10e3/ul Critically high 0.00-0.03 [facility] Comment on above: Performed By: #### C BC #### [facility] [address] [place] [address] Dr. Qi Benedict IG % 0.4 % Normal 0.0-0.5 [facility] Comment on above: Performed By: #### C BC #### [facility] [address] [place] [address] Dr. Qi Benedict LYMPH # 1.5 103/ul Normal 1.2-3.8 [facility] Comment on above: Performed By: #### C BC #### [facility] [address] [place] [address] Dr. Qi Benedict Lymphocytes/100 WBC (Bld) 14.1 % Critically low 20.5-60.0 [facility] Comment on above: Performed By: #### C BC #### [facility] [address] [place] [address] Dr. Qi Benedict MANUAL DIFF REQ NO Normal [facility] Comment on above: Performed By: #### C BC #### [facility] [address] [place] [address] Dr. Qi Benedict MCH (RBC) [Entitic mass] 31.6 pg Normal 26.7-34.0 [facility] Comment on above: Performed By: #### C BC #### [facility] [address] [address] [address] Qi Benedict MCHC (RBC) [Mass/Vol] 33.3 g/dL Normal 29.9-35.2 [facility] Comment on above: Performed By: #### C BC #### [facility] [address] [address] [address] Qi Benedict MCV (RBC) [Entitic vol] 94.7 fL Normal 81.0-99.0 [facility] Comment on above: Performed By: #### C BC #### [facility] [address] [address] [address] Qi Benedict MONO # 0.5 103/ul Normal 0.3-0.8 [facility] Comment on above: Performed By: #### C BC #### [facility] [address] [place] [address] Dr. Qi Benedict Monocytes/100 WBC (Bld) 5.0 % Normal 1.7-12.0 [facility] Comment on above: Performed By: #### C BC #### [facility] [address] [address] [address] Qi Benedict NEUT # 8.2 103/ul Critically high 1.4-6.5 [facility] Comment on above: Performed By: #### C BC #### [facility] [address] [address] [address] Qi Benedict Neutrophils/100 WBC (Bld) 79.1 % Critically high 43.0-75.0 [facility] Comment on above: Performed By: #### C BC #### [facility] [address] [address] [address] Qi Benedict Platelet mean volume (Bld) [Entitic vol] 9.7 fL Normal 9.5-13.5 [facility] Comment on above: Performed By: #### C BC #### [facility] [address] [address] [address] Qi Benedict PLT 200 103/ul Normal 150-450 [facility] Comment on above: Performed By: #### C BC #### [facility] [address] [address] [address] Qi Benedict RBC 3.77 106/ul Critically low 4.20-5.40 [facility] Comment on above: Performed By: #### C BC #### [facility] [address] [address] [address] Qi Benedict WBC 10.4 103/ul Normal 4.0-11.0 [facility] Comment on above: Performed By: #### C BC #### [facility] [address] [place] [address] Dr. Qi Benedict CULTURE URINEon 09-29-2021 CULTURE URINE Culture Observations : NO GROWTH. Normal [facility] Comment on above: Performed By: #### A FPMAT #### [facility] [address] [place] [address] Dr. Qi Benedict GLYCOHEMOGLOBIN A1Con 2021 ADA RECOMMENDATION SEE BELOW Normal [facility] Comment on above: Result Comment: ADA RECOMMENDED LIMIT 4.0 - 6.0 ADA THERAPEUTIC TARGET < 7.0 ACTION SUGGESTED > 7.0 Performed By: #### D RUGRPD #### [facility] [address] [place] [address] Dr. Qi Benedict Glucose [Mass/Vol] 82 mg/dL Normal [facility] Comment on above: Performed By: #### D RUGRPD #### [facility] [address] [place] [address] Dr. Qi Benedict HbA1c (Bld) [Mass fraction] 4.5 % Normal 4.5-6.2 [facility] Comment on above: Performed By: #### D RUGRPD #### [facility] [address] [place] [address] Dr. Qi Benedict TANESHA BOX TEST PT SEND OUTo n 09-29-2021 SENT TO REF LAB 09/29/2021 Normal [facility] Comment on above: Performed By: #### A FPMAT #### [facility] [address] [place] [address] Dr. Qi Benedict TYPE AND SCREENon 09-29-2021 TYPE AND SCREEN Negative Normal [facility] Comment on above: Performed By: #### A FPMAT #### [facility] [id number] Qi Benedict US PREG ANATOMY SINGLEon US PREG ANATOMY SINGLE EXAMINATION: US PREG ANATOMY SINGLE HISTORY: screening COMPARISON: No relevant comparison available. TECHNIQUE: Transabdominal sonographic examination was performed for obstetrical and evaluation. FINDINGS: Number: 1 Heart Rate: 155.0 bpm H.B. /min Amniotic Fluid Volume: Subjectively normal Placental Location: POSTERIOR , grade 1, with lower margin 3.4 cm from os. Incidental small venous garvin. Cervix Length: 4 cm ; closed. ANATOMY: Normal Structures -cerebellum, choroid plexus, cisterna magna, lateral cerebral ventricles, orbits, midline falx, hard palate, four-chamber heart, RVOT, LVOT, stomach, kidneys, bladder, umbilical cord insertion into abdomen, three-vessel cord, cervical spine, thoracic spine, lumbar spine, sacral spine, right upper extremity, left upper extremity, right lower extremity, left lower extremity. SUBOPTIMALLY SEEN: None ABNORMALITIES: None BIOMETRY: BPD: 4.7 cm 20 weeks 1 days HC: 18.1 cm 20 weeks 4 days AC: 16.2 cm 21 weeks 2 days FL: 3.3 cm 20 weeks 2 days EFW:377.0 grams; ; 80% FL/AC: 20.4 FL/BPD: 70.4 HC/AC: 1.1 GESTATIONAL AGE: Age by EDC: 20 weeks 1 days HONEY by EDC: 02/11/2022 Age by current US: 20 weeks 4 days HONEY by current US: 02/08/2022 IMPRESSION: 1. Single live intrauterine with growth detailed above. Electronically authenticated by: LYSSA STEWART Date: 2021-09-25 22:35 Normal [facility] CBC AUTO DIFFon 08-29-2021 BASO # 0.0 103/ul Normal 0.0-0.1 [facility] Comment on above: Performed By: #### C BC #### [facility] [address] [place], [place] [address] Dr. Qi Benedict Basophils/100 WBC (Bld) 0.3 % Normal 0.2-2.0 [facility] Comment on above: Performed By: #### C BC #### [facility] [address] [place] [address] Dr. Qi Benedict EO # 0.1 103/ul Normal 0.0-0.7 [facility] Comment on above: Performed By: #### C BC #### [facility] [address] [place] [address] Dr. Qi Benedict Eosinophils/100 WBC (Bld) 1.1 % Normal 0.9-7.0 [facility] Comment on above: Performed By: #### C BC #### [facility] [address] [place] [address] Dr. Qi Benedict Erythrocyte distribution width (RBC) [Ratio] 13.2 % Normal 11.0-15.0 [facility] Comment on above: Performed By: #### C BC #### [facility] [address] [place] [address] Dr. Qi Benedict Hematocrit (Bld) [Volume fraction] 36.5 % Normal 36.0-48.0 [facility] Comment on above: Performed By: #### C BC #### [facility] [address] [place] [address] Dr. Qi Benedict Hemoglobin (Bld) [Mass/Vol] 12.4 g/dL Normal 12.0-16.0 [facility] Comment on above: Performed By: #### C BC #### [facility] [address] [place] [address] Dr. Qi Benedict IG # 0.03 10e3/ul Normal 0.00-0.03 [facility] Comment on above: Performed By: #### C BC #### [facility] [address] [place] [address] Dr. Qi Benedict IG % 0.3 % Normal 0.0-0.5 [facility] Comment on above: Performed By: #### C BC #### [facility] [address] [place] [address] Dr. Qi Benedict LYMPH # 1.3 103/ul Normal 1.2-3.8 [facility] Comment on above: Performed By: #### C BC #### [facility] [address] [place] [address] Dr. Qi Benedict Lymphocytes/100 WBC (Bld) 13.4 % Critically low 20.5-60.0 [facility] Comment on above: Performed By: #### C BC #### [facility] [address] [place] [address] Dr. Qi Benedict MANUAL DIFF REQ NO Normal [facility] Comment on above: Performed By: #### C BC #### [facility] [address] [place] [address] Dr. Qi Benedict MCH (RBC) [Entitic mass] 31.2 pg Normal 26.7-34.0 [facility] Comment on above: Performed By: #### C BC #### [facility] [address] [place] [address] Dr. Qi Benedict MCHC (RBC) [Mass/Vol] 34.0 g/dL Normal 29.9-35.2 [facility] Comment on above: Performed By: #### C BC #### [facility] [address] [place] [address] Dr. Qi Benedict MCV (RBC) [Entitic vol] 91.9 fL Normal 81.0-99.0 [facility] Comment on above: Performed By: #### C BC #### [facility] [address] [place] [address] Dr. Qi Benedict MONO # 0.5 103/ul Normal 0.3-0.8 [facility] Comment on above: Performed By: #### C BC #### [facility] [address] [place] [address] Dr. Qi Benedict Monocytes/100 WBC (Bld) 5.3 % Normal 1.7-12.0 [facility] Comment on above: Performed By: #### C BC #### [facility] [address] [place] [address] Dr. Qi Benedict NEUT # 7.6 103/ul Critically high 1.4-6.5 [facility] Comment on above: Performed By: #### C BC #### [facility] [address] [address] [address] Qi Benedict Neutrophils/100 WBC (Bld) 79.6 % Critically high 43.0-75.0 [facility] Comment on above: Performed By: #### C BC #### [facility] [address] [address] [address] Qi Benedict Platelet mean volume (Bld) [Entitic vol] 9.5 fL Normal 9.5-13.5 [facility] Comment on above: Performed By: #### C BC #### [facility] [address] [address] [address] Qi Benedict PLT 229 103/ul Normal 150-450 [facility] Comment on above: Performed By: #### C BC #### [facility] [address] [place] [address] Dr. Qi Benedict RBC 3.97 106/ul Critically low 4.20-5.40 [facility] Comment on above: Performed By: #### C BC #### [facility] [address] [address] [address] Qi Benedict WBC 9.5 103/ul Normal 4.0-11.0 [facility] Comment on above: Performed By: #### C BC #### [facility] [address] [place] [address] Dr. Qi Benedict Cov[facility]on 08-09 SARS-CoV-2 (COVID-19) RNA STEFANIE+probe Ql (Unsp spec) Not detected Normal NOT DETECTED [facility] Comment on above: Result Comment: When diagnostic testing is negative, the possibility of a false negative should be considered in the context of a patient's recent exposures and the presence of clinical signs and symptoms consistent with SARS-CoV-2. This test is not yet approved or cleared by the [place] FDA. When there are no FDA-approved or cleared tests available, and other criteria are met, FDA can make tests available under an emergency access mechanism called an Emergency Use Authorization (EUA). The EUA for this test is supported by the Communications Attendant of Health and Human Service's declaration that circumstances exist to justify the emergency use of in vitro diagnostics for the detection and/or diagnosis of the virus that causes COVID-19. This EUA will remain in effect for the duration of the COVID-19 declaration justifying emergency of IVDs, unless it is terminated or revoked by the FDA (after which the test may no longer be used). Performed By: #### C VDTBH #### [facility] [address] [place] [address] Dr. Qi Benedict ER URINE PROFILEon 2 Bilirubin Ql (U) Negative Normal NEGATIVE The [facility] Comment on above: Performed By: #### D RUGRPD #### [facility] [address] [place] [address] Dr. Qi Benedict Clarity (U) CLEAR Normal CLEAR [facility] Comment on above: Performed By: #### D RUGRPD #### [facility] [address] [place] [address] Dr. Qi Benedict Color (U) YELLOW Normal YELLOW [facility] Comment on above: Performed By: #### D RUGRPD #### [facility] [address] [place] [address] Dr. Qi TOWNSEND A micrscopic examination will be performed if indicated. Normal [facility] Comment on above: Performed By: #### D RUGRPD #### [facility] [address] [place] [address] Dr. Qi Benedict Glucose Ql (U) Negative Normal NEGATIVE The [facility] Comment on above: Performed By: #### D RUGRPD #### [facility] [address] [place] [address] Dr. Qi Benedict Hemoglobin Ql (U) Negative Normal NEGATIVE The [facility] Comment on above: Performed By: #### D RUGRPD #### [facility] [address] [place] [address] Dr. Qi Benedict Ketones Ql (U) Negative Normal NEGATIVE The [facility] Comment on above: Performed By: #### D RUGRPD #### [facility] [address] [place] [address] Dr. Qi Benedict LEUKOCYTES Negative Normal NEGATIVE [facility] Comment on above: Performed By: #### D RUGRPD #### [facility] [address] [place] [address] Dr. Qi Benedict Nitrite Ql (U) Negative Normal NEGATIVE [facility] Comment on above: Performed By: #### D RUGRPD #### [facility] [address] [address] [address] Qi Benedict pH (U) 6.0 [pH] Normal 5-9 [facility] Comment on above: Performed By: #### D RUGRPD #### [facility] [address] [address] [address] Qi Benedict SPEC GRAVITY 1.025 Normal 1.005-<=1.025 [facility] Comment on above: Performed By: #### D RUGRPD #### [facility] [address] [place] [address] Dr. Qi Benedict UA PROTEIN Negative Normal NEGATIVE/ TRACE [facility] Comment on above: Performed By: #### D RUGRPD #### [facility] [address] [place] [address] Dr. Qi Benedict UR MICRO IND NOT INDICATED Normal [facility] Comment on above: Performed By: #### D RUGRPD #### [facility] [address] [place] [address] Dr. Qi Benedict Urobilinogen Qn (U) 0.2 {Yessi'U}/dL Normal 0.2 - 1. 0 [facility] Comment on above: Performed By: #### D RUGRPD #### [facility] [address] [place] [address] Dr. Qi Benedict PROF 14(COMP METB)on 022 Albumin [Mass/Vol] 2.9 g/dL Critically low 3.4-5.0 [facility] Comment on above: Performed By: #### D RUGRPD #### [facility] [address] [place] [address] Dr. Qi Benedict Albumin/Globulin [Mass ratio] 0.8 {ratio} Normal [facility] Comment on above: Performed By: #### D RUGRPD #### [facility] [address] [address] [address] Qi Benedict ALP [Catalytic activity/Vol] 43 U/L Critically low 46-116 [facility] Comment on above: Performed By: #### D RUGRPD #### [facility] [address] [address] [address] Qi Benedict ALT [Catalytic activity/Vol] 13 U/L Critically low 14-59 [facility] Comment on above: Performed By: #### D RUGRPD #### [facility] [address] [address] [address] Qi Benedict Anion gap [Moles/Vol] 10.6 mmol/L Normal [facility] Comment on above: Performed By: #### D RUGRPD #### [facility] [address] [address] [address] Qi Benedict AST [Catalytic activity/Vol] 9 U/L Critically low 15-37 [facility] Comment on above: Performed By: #### D RUGRPD #### [facility] [address] [address] [address] Qi Benedict Bilirubin [Mass/Vol] 0.4 mg/dL Normal 0.2-1.0 [facility] Comment on above: Performed By: #### D RUGRPD #### [facility] [address] [address] [address] Qi Benedict Calcium [Mass/Vol] 8.5 mg/dL Normal 8.5-10.1 [facility] Comment on above: Performed By: #### D RUGRPD #### [facility] [address] [address] [address] Qi Benedict Chloride [Moles/Vol] 104 mmol/L Normal 98-107 [facility] Comment on above: Performed By: #### D RUGRPD #### [facility] [address] [address] [address] Qi Benedict CO2 [Moles/Vol] 27.0 mmol/L Normal 21.0-32.0 [facility] Comment on above: Performed By: #### D RUGRPD #### [facility] [address] [address] [address] Qi Benedict Creatinine [Mass/Vol] 0.61 mg/dL Normal 0.55-1.02 [facility] Comment on above: Performed By: #### D RUGRPD #### [facility] [address] [address] [address] Qi Benedict EGFR-AF CAMBODIAN >60 Normal >=60 [facility] Comment on above: Performed By: #### D RUGRPD #### [facility] [address] [address] [address] Qi Benedict EGFR-NON AF CAMBODIAN >60 Normal >=60 [facility] Comment on above: Performed By: #### D RUGRPD #### [facility] [address] [address] [address] Qi Benedict Globulin (S) [Mass/Vol] 3.6 g/dL Normal [facility] Comment on above: Performed By: #### D RUGRPD #### [facility] [address] [address] [address] Qi Benedict Glucose [Mass/Vol] 83 mg/dL Normal 74-106 [facility] Comment on above: Performed By: #### D RUGRPD #### [facility] [address] [address] [address] Qi Benedict Potassium [Moles/Vol] 3.6 mmol/L Normal 3.5-5.1 [facility] Comment on above: Performed By: #### D RUGRPD #### [facility] [address] [address] [address] Qi Benedict Protein [Mass/Vol] 6.5 g/dL Normal 6.4-8.2 [facility] Comment on above: Performed By: #### D RUGRPD #### [facility] [address] [address] [address] Qi Benedict Sodium [Moles/Vol] 138 mmol/L Normal 136-145 [facility] Comment on above: Performed By: #### D RUGRPD #### [facility] [address] [place], [place] [address] Dr. Qi Benedict Urea nitrogen [Mass/Vol] 10.0 mg/dL Normal 7.0-18.0 [facility] Comment on above: Performed By: #### D RUGRPD #### [facility] [address] [place], [place] [address] Dr. Qi Benedict Urea nitrogen/Creatinine [Mass ratio] 16.4 mg/mg Normal [facility] Comment on above: Performed By: #### D RUGRPD #### [facility] [address] [place], [place] [address] Dr. Qi Benedict HCG, ,Urineon 05-31 Beta HCG ( test) Ql (U) Negative Normal NEG [facility] Comment on above: Result Comment: Spec imens with hCG levels near the threshold of the test (25 mIU/mL) may give a negative or indeterminate result. In such cases, another test should be performed with a new specimen in 48-72 hours. If early is suspected clinically in this setting, correlation with quantitative serum b-hCG level is suggested. Performed By: #### U HCG #### [address] [address] [employer]: Ketan Lares MD Otheron 06-01-2019 No acute osseous abnormality in the right ankle No acute osseous abnormality in the thoracic spine. [facility], [place] EXAMINATION: THREE XRAY VIEWS OF THE RIGHT ANKLE; THREE XRAY VIEWS OF THE THORACIC SPINE 06/01/2019 3:15 pm COMPARISON: None. HISTORY: ORDERING SYSTEM PROVIDED HISTORY: fall, ankle pain TECHNOLOGIST PROVIDED HISTORY: fall, ankle pain Reason for Exam: fall off UTV, mid back pain and right ankle pain Acuity: Acute Type of Exam: Initial; ORDERING SYSTEM PROVIDED HISTORY: back pain TECHNOLOGIST PROVIDED HISTORY: back pain Reason for Exam: fall off UTV, mid back pain and right ankle pain Acuity: Acute Type of Exam: Initial FINDINGS: Right ankle 3 images were provided. Alignment is normal. There is no fracture Thoracic spine: 3 images were provided. There is no loss of height. There is no fracture [place], [place] Julián, [employer] Incoming Radiant Results From [employer] - 06/01/2019 3:36 PM EDT EXAMINATION: THREE XRAY VIEWS OF THE RIGHT ANKLE; THREE XRAY VIEWS OF THE THORACIC SPINE 06/01/2019 3:15 pm COMPARISON: None. HISTORY: ORDERING SYSTEM PROVIDED HISTORY: fall, ankle pain TECHNOLOGIST PROVIDED HISTORY: fall, ankle pain Reason for Exam: fall off UTV, mid back pain and right ankle pain Acuity: Acute Type of Exam: Initial; ORDERING SYSTEM PROVIDED HISTORY: back pain TECHNOLOGIST PROVIDED HISTORY: back pain Reason for Exam: fall off UTV, mid back pain and right ankle pain Acuity: Acute Type of Exam: Initial FINDINGS: Right ankle 3 images were provided. Alignment is normal. There is no fracture Thoracic spine: 3 images were provided. There is no loss of height. There is no fracture IMPRESSION: No acute osseous abnormality in the right ankle No acute osseous abnormality in the thoracic spine. [place], [place] , Urineon 0 Beta HCG ( test) Ql (U) Negative NEGATIVE [place], [place] Comment on above: Specimens with hCG l evels near the threshold of the test (25 mIU/mL) may give a negative or indeterminate result. In such cases, another test should be performed with a new specimen in 48-72 hours. If early is suspected clinically in this setting, correlation with quantitative serum b-hCG level is suggested. XR ANKLE RIGHT (MIN 3 VIEWS) on 06-01-2019 XR ANKLE RIGHT (MIN 3 VIEWS) EXAMINATION: THREE XRAY VIEWS OF THE RIGHT ANKLE; THREE XRAY VIEWS OF THE THORACIC SPINE 06/01/2019 3:15 pm COMPARISON: None. HISTORY: ORDERING SYSTEM PROVIDED HISTORY: fall, ankle pain TECHNOLOGIST PROVIDED HISTORY: fall, ankle pain Reason for Exam: fall off UTV, mid back pain and right ankle pain Acuity: Acute Type of Exam: Initial; ORDERING SYSTEM PROVIDED HISTORY: back pain TECHNOLOGIST PROVIDED HISTORY: back pain Reason for Exam: fall off UTV, mid back pain and right ankle pain Acuity: Acute Type of Exam: Initial FINDINGS: Right ankle 3 images were provided. Alignment is normal. There is no fracture Thoracic spine: 3 images were provided. There is no loss of height. There is no fracture IMPRESSION: No acute osseous abnormality in the right ankle No acute osseous abnormality in the thoracic spine. Interpreted by: Ann-Marie Medrano MD Signed by: Ann-Marie Medrano MD 06/01/19 Final result Normal [facility] XR THORACIC SPINE (3 VIEWS)o n 06-01-2019 XR THORACIC SPINE (3 VIEWS) EXAMINATION: THREE XRAY VIEWS OF THE RIGHT ANKLE; THREE XRAY VIEWS OF THE THORACIC SPINE 06/01/2019 3:15 pm COMPARISON: None. HISTORY: ORDERING SYSTEM PROVIDED HISTORY: fall, ankle pain TECHNOLOGIST PROVIDED HISTORY: fall, ankle pain Reason for Exam: fall off UTV, mid back pain and right ankle pain Acuity: Acute Type of Exam: Initial; ORDERING SYSTEM PROVIDED HISTORY: back pain TECHNOLOGIST PROVIDED HISTORY: back pain Reason for Exam: fall off UTV, mid back pain and right ankle pain Acuity: Acute Type of Exam: Initial FINDINGS: Right ankle 3 images were provided. Alignment is normal. There is no fracture Thoracic spine: 3 images were provided. There is no loss of height. There is no fracture IMPRESSION: No acute osseous abnormality in the right ankle No acute osseous abnormality in the thoracic spine. Interpreted by: Ann-Marie Medrano MD Signed by: Ann-Marie Medrano MD 06/01/19 Final result Normal [facility] XR ANKLE RIGHT (MIN 3 VIEWS) on 05-25-2019 XR ANKLE RIGHT (MIN 3 VIEWS) EXAMINATION: THREE XRAY VIEWS OF THE RIGHT ANKLE 05/25/2019 12:05 am COMPARISON: 09/12/2018 HISTORY: ORDERING SYSTEM PROVIDED HISTORY: Fall TECHNOLOGIST PROVIDED HISTORY: Fall Reason for Exam: Diffuse right ankle pain Acuity: Acute Type of Exam: Initial Mechanism of Injury: fall FINDINGS: No fracture, dislocation, or focal osseous lesion is noted. No significant soft tissue abnormality seen. IMPRESSION: No fracture or dislocation. Interpreted by: Judah Swift MD Signed by: Judah Swift MD 05/25/19 Final result Normal [facility] No fracture or dislocation. [facility], [place] EXAMINATION: THREE XRAY VIEWS OF THE RIGHT ANKLE 05/25/2019 12:05 am COMPARISON: 09/12/2018 HISTORY: ORDERING SYSTEM PROVIDED HISTORY: Fall TECHNOLOGIST PROVIDED HISTORY: Fall Reason for Exam: Diffuse right ankle pain Acuity: Acute Type of Exam: Initial Mechanism of Injury: fall FINDINGS: No fracture, dislocation, or focal osseous lesion is noted. No significant soft tissue abnormality seen. [place], [place], [employer] Incoming Radiant Results From [employer] - 05/25/2019 12:15 AM EDT EXAMINATION: THREE XRAY VIEWS OF THE RIGHT ANKLE 05/25/2019 12:05 am COMPARISON: 09/12/2018 HISTORY: ORDERING SYSTEM PROVIDED HISTORY: Fall TECHNOLOGIST PROVIDED HISTORY: Fall Reason for Exam: Diffuse right ankle pain Acuity: Acute Type of Exam: Initial Mechanism of Injury: fall FINDINGS: No fracture, dislocation, or focal osseous lesion is noted. No significant soft tissue abnormality seen. IMPRESSION: No fracture or dislocation. [place], [place] HCG, Quanton 05-16-2019 HCG, Quant <1 Normal <5 [facility] Comment on above: Result Comment: Non-preg premeno <=5 Postmeno <=8 Male <=3 If HCG results do not concur with clinical observations, additional testing to confirm results is recommended. Elevated results not associated with may be found in patients with other diseases such as tumors of the germ cells (testis, ovaries, etc.), bladder, pancreas, stomach, lungs, and liver. Performed By: #### B HCG #### [facility] [place] [address] [employer]: Torsten Philip MD HCG, Quantitative, on 05-15-2019 hCG Quant <1 <5 IU/L [place], [place] Comment on above: Non-preg premeno <=5 Postmeno <=8 Male <=3 If HCG results do not concur with clinical observations, additional testing to confirm results is recommended. Elevated results not associated with may be found in patients with other diseases such as tumors of the germ cells (testis, ovaries, etc.), bladder, pancreas, stomach, lungs, and liver. XR SHOULDER RIGHT (MIN 2 VIE WS)on 03-12-2019 XR SHOULDER RIGHT (MIN 2 VIEWS) EXAMINATION: THREE XRAY VIEWS OF THE RIGHT SHOULDER 03/12/2019 4:35 pm COMPARISON: None. HISTORY: ORDERING SYSTEM PROVIDED HISTORY: pain felt a pop TECHNOLOGIST PROVIDED HISTORY: pain felt a pop Reason for Exam: pain, felt pop Acuity: Acute Type of Exam: Initial FINDINGS: Glenohumeral joint is normally aligned. No evidence of acute fracture or dislocation. No abnormal periarticular calcifications. The AC joint is unremarkable in appearance. Visualized lung is unremarkable. IMPRESSION: No acute osseous abnormality of the right shoulder. Interpreted by: Theo Dolan MD Signed by: Theo Dolan MD 03/12/19 Final result Normal [facility] CBC with Diffon 01-08-2019 Abs. Basophil 0.10 k/uL Normal 0.0-0.2 [facility] Comment on above: Performed By: #### C DP, HCG, LIP, CP, TROPI, DIME #### [facility] [address] [place] [address] [employer]: Jeremie Gross DO Abs.Neutrophil (Seg) 5.00 k/uL Normal 1.3-9.1 [facility] Comment on above: Performed By: #### C DP, HCG, LIP, CP, TROPI, DIME #### [facility] [address] [facility] [place] [address] [employer]: Jeremie Gross DO Basophils/100 WBC (Bld) 1 % Normal 0-2 [facility] Comment on above: Performed By: #### C DP, HCG, LIP, CP, TROPI, DIME #### [facility] [address] [facility] [place] [address] [employer]: Jeremie Gross DO Eosinophils (Bld) [#/Vol] 0.30 10*3/uL Normal 0.0-0.4 [facility] Comment on above: Performed By: #### C DP, HCG, LIP, CP, TROPI, DIME #### [facility] [address] [facility] [place] [address] [employer]: Jeremie Gross DO Eosinophils/100 WBC (Bld) 3 % Normal 0-4 [facility] Comment on above: Performed By: #### C DP, HCG, LIP, CP, TROPI, DIME #### [facility] [address] [facility] [place] [address] [employer]: Jeremie Gross DO Erythrocyte distribution width (RBC) [Ratio] 12.9 % Normal 11.5-14.9 [facility] Comment on above: Performed By: #### C DP, HCG, LIP, CP, TROPI, DIME #### [facility] [place] [address] [employer]: Jeremie Gross DO Hematocrit (Bld) [Volume fraction] 43.0 % Normal 36-46 [facility] Comment on above: Performed By: #### C DP, HCG, LIP, CP, TROPI, DIME #### [facility] [address] [place] [address]. [place] [address] [employer]: Jeremie Gross DO Hemoglobin (Bld) [Mass/Vol] 14.6 g/dL Normal 12.0-16.0 [facility] Comment on above: Performed By: #### C DP, HCG, LIP, CP, TROPI, DIME #### [facility] [address] [place] [address]. [place] [address] [employer]: Jeremie Gross DO Lymphocytes (Bld) [#/Vol] 3.10 10*3/uL Normal 1.2-5.2 [facility] Comment on above: Performed By: #### C DP, HCG, LIP, CP, TROPI, DIME #### [facility] [address] [place] [address]. [place] [address] [employer]: Jeremie Gross DO Lymphocytes/100 WBC (Bld) 34 % Normal 25-45 [facility] Comment on above: Performed By: #### C DP, HCG, LIP, CP, TROPI, DIME #### [facility] [address] [place] [id number] [employer]: Jeremie Gross DO MCH (RBC) [Entitic mass] 30.9 pg Normal 26-34 [facility] Comment on above: Performed By: #### C DP, HCG, LIP, CP, TROPI, DIME #### [facility] [address] [place] [address] [employer]: Jeremie Gross DO MCHC (RBC) [Mass/Vol] 33.9 g/dL Normal 31-37 [facility] Comment on above: Performed By: #### C DP, HCG, LIP, CP, TROPI, DIME #### [facility] [address] [place] [address] [employer]: Jeremie Gross DO MCV (RBC) [Entitic vol] 91.1 fL Normal 80-100 [facility] Comment on above: Performed By: #### C DP, HCG, LIP, CP, TROPI, DIME #### [facility] [address] [facility] [place] [address] [employer]: Jeremie Gross DO Monocytes (Bld) [#/Vol] 0.70 10*3/uL Normal 0.1-1.3 [facility] Comment on above: Performed By: #### C DP, HCG, LIP, CP, TROPI, DIME #### [facility] [facility] [place] [address] [employer]: Jeremie Gross DO Monocytes/100 WBC (Bld) 8 % Normal 2-8 [facility] Comment on above: Performed By: #### C DP, HCG, LIP, CP, TROPI, DIME #### [facility] [facility] [place] [address] [employer]: Jeremie Gross DO Neutrophil (Seg) 54 % Normal 34-64 [facility] Comment on above: Performed By: #### C DP, HCG, LIP, CP, TROPI, DIME #### [facility] [address] [place] [address] [employer]: Jeremie Gross DO Platelet mean volume (Bld) [Entitic vol] 7.8 fL Normal 6.0-12.0 [facility] Comment on above: Performed By: #### C DP, HCG, LIP, CP, TROPI, DIME #### [facility] [address] [place] [address] [employer]: Jeremie Gross DO Platelets (Bld) [#/Vol] 245 10*3/uL Normal 150-450 [facility] Comment on above: Performed By: #### C DP, HCG, LIP, CP, TROPI, DIME #### [facility] [address] [place] [address] [employer]: Jeremie Gross DO RBC (Bld) [#/Vol] 4.71 10*6/uL Normal 4.0-5.2 [facility] Comment on above: Performed By: #### C DP, HCG, LIP, CP, TROPI, DIME #### [facility] [place] [address] [employer]: Jeremie Gross DO WBC (Bld) [#/Vol] 9.2 10*3/uL Normal 4.5-13.5 [facility] Comment on above: Performed By: #### C DP, HCG, LIP, CP, TROPI, DIME #### [facility] [address] [place] [address] [employer]: Jeremie Gross DO Abs.Imm.Granulocyte NOT REPORTED Normal 0.00-0.30 [facility] Comment on above: Performed By: #### C DP, HCG, LIP, CP, TROPI, DIME #### [facility] [address] [place] [address] [employer]: Jeremie Gross DO Auto Diff Performed NOT REPORTED Normal [facility] Comment on above: Performed By: #### C DP, HCG, LIP, CP, TROPI, DIME #### [facility] [address] [place] [address] [employer]: Jeremie Gross DO NRBC Automated NOT REPORTED Normal [facility] Comment on above: Performed By: #### C DP, HCG, LIP, CP, TROPI, DIME #### [facility] [address] [place] [address] [employer]: Jeremie Gross DO Comp Metabolic Profon 2018 Bilirubin Ql (U) <0.15 Low 0.3-1.2 [facility] Comment on above: Performed By: #### C DP, HCG, LIP, CP, TROPI, DIME #### [facility] [address] [place] [address] [employer]: Jeremie Gross DO (cont.) Normal [facility] Comment on above: Result Comment: Aver age GFR for <20 years old not available. Chronic Kidney Disease: <60 mL/min/1.73sq m Kidney failure: <15 mL/min/1.73sq m eGFR calculated using average adult body mass. Additional eGFR calculator available at: http://www.Pivot3.Stealth10/multiple_crcl_2012.htm Performed By: #### C DP, HCG, LIP, CP, TROPI, DIME #### [facility] [address] [facility] [place] [address] [employer]: Jeremie Gross DO Albumin [Mass/Vol] 4.3 g/dL Normal 3.5-5.2 [facility] Comment on above: Performed By: #### C DP, HCG, LIP, CP, TROPI, DIME #### [facility] [facility] [address] [place] [address] [employer]: Jeremie Gross DO Alkaline Phos 86 U/L Normal 35-104 [facility] Comment on above: Performed By: #### C DP, HCG, LIP, CP, TROPI, DIME #### [facility] [address] [place] [address] [employer]: Jeremie Gross DO ALT [Catalytic activity/Vol] 9 U/L Normal 5-33 [facility] Comment on above: Performed By: #### C DP, HCG, LIP, CP, TROPI, DIME #### [facility] [address] [place] [address] [employer]: Jeremie Gross DO Anion gap [Moles/Vol] 11 mmol/L Normal 9-17 [facility] Comment on above: Performed By: #### C DP, HCG, LIP, CP, TROPI, DIME #### [facility] [address] [place] [address] [employer]: Jeremie Gross DO AST [Catalytic activity/Vol] 12 U/L Normal <32 [facility] Comment on above: Performed By: #### C DP, HCG, LIP, CP, TROPI, DIME #### [facility] [address] [place] [address] [employer]: Jermeie Gross DO Calcium [Mass/Vol] 9.3 mg/dL Normal 8.6-10.4 [facility] Comment on above: Performed By: #### C DP, HCG, LIP, CP, TROPI, DIME #### [facility] [address] [place] [address] [employer]: Jeremie Gross DO Chloride [Moles/Vol] 104 mmol/L Normal 98-107 [facility] Comment on above: Performed By: #### C DP, HCG, LIP, CP, TROPI, DIME #### [facility] [address] [place] [address] [employer]: Jeremie Gross DO CO2 [Moles/Vol] 25 mmol/L Normal 20-31 [facility] Comment on above: Performed By: #### C DP, HCG, LIP, CP, TROPI, DIME #### [facility] [address] [place] [address] [employer]: Jeremie Gross DO Creatinine [Mass/Vol] 0.53 mg/dL Normal 0.50-0.90 [facility] Comment on above: Performed By: #### C DP, HCG, LIP, CP, TROPI, DIME #### [facility] [address] [place] [address] [employer]: Jeremie Gross DO GFR,non Amer Pediatric GFR requires additional information. Refer to NKDEP website for Normal >60 [facility] Comment on above: Result Comment: calc ulator. Performed By: #### C DP, HCG, LIP, CP, TROPI, DIME #### [facility] [address] [facility] [place] [address] [employer]: Jeremie Gross DO Glucose [Mass/Vol] 86 mg/dL Normal 70-99 [facility] Comment on above: Performed By: #### C DP, HCG, LIP, CP, TROPI, DIME #### [facility] [address] [place] [address] [employer]: Jeremie Gross DO Potassium [Moles/Vol] 3.7 mmol/L Normal 3.7-5.3 [facility] Comment on above: Performed By: #### C DP, HCG, LIP, CP, TROPI, DIME #### [facility] [address] [place] [address] [employer]: Jeremie Gross DO Protein [Mass/Vol] 7.4 g/dL Normal 6.4-8.3 [facility] Comment on above: Performed By: #### C DP, HCG, LIP, CP, TROPI, DIME #### [facility] [address] [place] [address] [employer]: Jeremie Gross DO Sodium [Moles/Vol] 140 mmol/L Normal 135-144 [facility] Comment on above: Performed By: #### C DP, HCG, LIP, CP, TROPI, DIME #### [facility] [address] [place] [address] [employer]: Jeremie Gross DO Urea nitrogen [Mass/Vol] 18 mg/dL Normal 6-20 [facility] Comment on above: Performed By: #### C DP, HCG, LIP, CP, TROPI, DIME #### [facility] [address] [facility] [place] [address] [employer]: Jeremie Gross DO GFR, Amer NOT REPORTED Normal >60 [facility] Comment on above: Performed By: #### C DP, HCG, LIP, CP, TROPI, DIME #### [facility] [address] [facility] [place] [address] [employer]: Jeremie Gross DO Staging: NOT REPORTED Normal [facility] Comment on above: Performed By: #### C DP, HCG, LIP, CP, TROPI, DIME #### [facility] [address] [facility] [place] [address] [employer]: Jeremie Gross DO D-Dimer Teston 01-08-2019 D-Dimer Test 0.34 mg/L FEU Normal 0.00-0.59 [facility] Comment on above: Result Comment: When combined with a low clinical probability, a D dimer value of <0.50 mg/L FEU is considered negative for DVT and PE (negative predictive value of 98%, sensitivity of 97%). If this test is not being used to help rule out DVT and PE, then the following reference range should be utilized: 0.00 - 0.59 mg/L FEU. The D-Dimer assay is intended for use as an aid in the diagnosis of venous thromboembolism (DVT and PE) and the results should be interpreted in conjunction with the patient's medical history, clinical presentation, and other findings. The [employer] D-Dimer assay is intended for use as an aid in the diagnosis of venous thromboembolism (DVT and PE) and the results should be interpreted in conjunction with the patient's medical history, clinical presentation, and other findings. Elevated levels of D-dimer activity can be seen in any state of coagulation activation and is not recommended in patients with therapeutic dose anticoagulant therapy for >24 hours, fibrinolytic therapy within the previous 7 days, trauma or surgery within the previous 4 weeks, disseminated malignancies, aortic aneurysm, sepsis, severe infections, pneumonia, severe skin infections, liver cirrhosis, advanced age, coronary disease, diabetes, and . A very low percentage of patients with DVT may yield D-dimer results below the cutoff of 0.5 mg/L FEU. This is known to be more prevalent in patients with distal DVT. Performed By: #### C DP, HCG, LIP, CP, TROPI, DIME #### [facility] [address] [facility] [place] [address] [employer]: Jeremie Gross DO HCG Screen, [facility] 01-09-20 19 HCG Qn Negative Normal NEG [facility] Comment on above: Result Comment: Spec imens with hCG levels near the threshold of the test (25 mIU/mL) may give a negative or indeterminate result. In such cases, another test should be performed with a new specimen in 48-72 hours. If early is suspected clinically in this setting, correlation with quantitative serum b-hCG level is suggested. Performed By: #### C DP, HCG, LIP, CP, TROPI, DIME #### [facility] [address] [facility] [place] [address] [employer]: Jeremie Gross DO Lipaseon 01-08-2019 Lipase [Catalytic activity/Vol] 28 U/L Normal 13-60 [facility] Comment on above: Performed By: #### C DP, HCG, LIP, CP, TROPI, DIME #### [facility] [address] [facility] [place] [address] [employer]: Jeremie Gross DO Troponinon 01-08-2019 Troponin I.cardiac [Mass/Vol] ng/mL Normal 0-14 [facility] Comment on above: Result Comment: High Sensitivity Troponin values cannot be compared with other Troponin methodologies. Patients with high levels of Biotin oral intake (i.e >5mg/day) may have falsely decreased Troponin levels. Samples collected within 8 hours of biotin intake may require additional information for diagnosis. Performed By: #### U HCG, UAX #### [facility] [address] [facility] [place] [address] [employer]: Jeremie Gross DO Troponin I.cardiac [Mass/Vol] NOT REPORTED Normal <0.03 [facility] Comment on above: Performed By: #### U HCG, UAX #### [facility] [address] [facility] [place] [address] [employer]: Jeremie Gross DO Performed By: #### C DP, HCG, LIP, CP, TROPI, DIME #### [facility] [address] [facility] [place] [address] [employer]: Jeremie Gross DO Troponin I.cardiac [Mass/Vol] ng/mL Normal 0-14 [facility] Comment on above: Result Comment: High Sensitivity Troponin values cannot be compared with other Troponin methodologies. Patients with high levels of Biotin oral intake (i.e >5mg/day) may have falsely decreased Troponin levels. Samples collected within 8 hours of biotin intake may require additional information for diagnosis. Performed By: #### C DP, HCG, LIP, CP, TROPI, DIME #### [facility] [address] [place] [address] [employer]: Jeremie Gross DO UA w/Reflex Cultureon 2018 Acetoacetic Acid,Ur Negative Normal NEG [facility] Comment on above: Performed By: #### U HCG, UAX #### [facility] [address] [place] [address] [employer]: Jeremie Gross DO Bilirubin, SemiQt,Ur Negative Normal NEG [facility] Comment on above: Performed By: #### U HCG, UAX #### [facility] [address] [place] [address] [employer]: Jeremie Gross DO Color (U) YELLOW Normal YEL [facility] Comment on above: Performed By: #### U HCG, UAX #### [facility] [address] [place] [address] [employer]: Jeremie Gross DO Glucose Ql (U) Negative Normal [facility] Comment on above: Performed By: #### U HCG, UAX #### [facility] [address] [place] [address] [employer]: Jeremie Gross DO Hemoglobin, Ur Negative Normal NEG [facility] Comment on above: Performed By: #### U HCG, UAX #### [facility] [address] [place] [address] [employer]: Jeremie Gross DO Leukocyte esterase Test strip Ql (U) Negative Normal NEG [facility] Comment on above: Performed By: #### U HCG, UAX #### [facility] [address] [place] [address] [employer]: Jeremie Gross DO Nitrite,Ur Negative Normal NEG [facility] Comment on above: Performed By: #### U HCG, UAX #### [facility] [place] [address] [employer]: Jeremie Gross DO pH (U) 6.5 [pH] Normal 5.0-8.0 [facility] Comment on above: Performed By: #### U HCG, UAX #### [facility] [address] [place] [address] [employer]: Jeremie Gross DO Protein Ql (U) Negative Normal NEG [facility] Comment on above: Performed By: #### U HCG, UAX #### [facility] [address] [place] [address] [employer]: Jeremie Gross DO Specific gravity (U) [Rel density] 1.024 Normal 1.000-1.030 [facility] Comment on above: Performed By: #### U HCG, UAX #### [facility] [address] [place] [address] [employer]: Jeremie Gross DO Turbidity CLOUDY Abnormal CLEAR [facility] Comment on above: Performed By: #### U HCG, UAX #### [facility] [address] [place] [address] [employer]: Jeremie Gross DO Urobilinogen,Ur Normal Normal NORM [facility] Comment on above: Performed By: #### U HCG, UAX #### [facility] [address] [place] [address] [employer]: Jeremie Gross DO Comment NOT REPORTED Normal [facility] Comment on above: Performed By: #### U HCG, UAX #### [facility] [address] [place] [address] [employer]: Jeremie Gross DO Urinalysis,Microon 9 ----- Normal [facility] Comment on above: Performed By: #### U HCG, UAX #### [facility] [address] [place] [address] [employer]: Jeremie Gross DO Bacteria LM.HPF (Urine sed) [#/Area] FEW Abnormal NONE [facility] Comment on above: Performed By: #### U HCG, UAX #### [facility] [address] [place] [address] [employer]: Jeremie Gross DO Epithelial cells LM.HPF (Urine sed) [#/Area] 5 TO 10 Normal [facility] Comment on above: Performed By: #### U HCG, UAX #### [facility] [address] [place] [address] [employer]: Jeremie Gross DO RBC (U) [#/Vol] 0 TO 2 Normal [facility] Comment on above: Performed By: #### U HCG, UAX #### [facility] [address] [place] [address] [employer]: Jeremie Gross DO WBC (U) [#/Vol] 0 TO 2 Normal [facility] Comment on above: Performed By: #### U HCG, UAX #### [facility] [address] [place] [address] [employer]: Jeremie Gross DO Amorphous sediment LM Ql (Urine sed) NOT REPORTED Normal [facility] Comment on above: Performed By: #### U HCG, UAX #### [facility] [address] [place] [address] [employer]: Jeremie Gross DO Casts LM.LPF (Urine sed) [#/Area] NOT REPORTED Normal [facility] Comment on above: Performed By: #### U HCG, UAX #### [facility] [place] [address] [employer]: Jeremie Gross DO Crystals LM Nom (Urine sed) NOT REPORTED Normal [facility] Comment on above: Performed By: #### U HCG, UAX #### [facility] [address] [place] [address] [employer]: Jeremie Gross DO Epithelial, Renal NOT REPORTED Normal 0 [facility] Comment on above: Performed By: #### U HCG, UAX #### [facility] [address] [place] [address] [employer]: Jeremie Gross DO Mucus Strands NOT REPORTED Normal NONE [facility] Comment on above: Performed By: #### U HCG, UAX #### [facility] [address] [place] [address] [employer]: Jeremie Gross DO Other Observations NOT REPORTED Normal [facility] Comment on above: Performed By: #### U HCG, UAX #### [facility] [address] [place] [address] [employer]: Jeremie Gross DO Trichomonas NOT REPORTED Normal NONE [facility] Comment on above: Performed By: #### U HCG, UAX #### [facility] [address] [place] [address] [employer]: Jeremie Gross DO Yeast LM Ql (Urine sed) NOT REPORTED Normal [facility] Comment on above: Performed By: #### U HCG, UAX #### [facility] [address] [place] [address] [employer]: Jeremie Gross DO XR CHEST (2 VW)on 01-08-2019 XR CHEST (2 VW) EXAMINATION: TWO XRAY VIEWS OF THE CHEST 01/07/2019 9:46 pm COMPARISON: None. HISTORY: ORDERING SYSTEM PROVIDED HISTORY: chest pain TECHNOLOGIST PROVIDED HISTORY: chest pain Reason for Exam: chest pain Acuity: Acute Type of Exam: Initial FINDINGS: The lungs are without acute focal process. There is no effusion or pneumothorax. The cardiomediastinal silhouette is without acute process. The osseous structures are without acute process. IMPRESSION: No acute process. Interpreted by: Levi Munroe MD Signed by: Levi Munroe MD 01/07/19 Final result Normal [facility] CBC Auto Differentialon 12-11 Basophils (Bld) [#/Vol] 0.10 10*3/uL [place] Basophils/100 WBC (Bld) 1 % 0 - 2 % [place] Differential Type NOT REPORTED [place] Eosinophils (Bld) [#/Vol] 0.30 10*3/uL [place] Eosinophils/100 WBC (Bld) 3 % 0 - 4 % [place] Erythrocyte distribution width (RBC) [Ratio] 12.9 % 11.5 - 14.9 % [place] Hematocrit (Bld) [Volume fraction] 43.0 % 36 - 46 % [place] Hemoglobin (Bld) [Mass/Vol] 14.6 g/dL 12 - 16 g/dL [place] Lymphocytes (Bld) [#/Vol] 3.10 10*3/uL [place] Lymphocytes/100 WBC (Bld) 34 % 25 - 45 % [place] MCH (RBC) [Entitic mass] 30.9 pg 26 - 34 pg [place] MCHC (RBC) [Mass/Vol] 33.9 g/dL 31 - 37 g/dL [place] MCV (RBC) [Entitic vol] 91.1 fL 80 - 100 fL [place] Monocytes (Bld) [#/Vol] 0.70 10*3/uL [place] Monocytes/100 WBC (Bld) 8 % 2 - 8 % [place] Platelet mean volume (Bld) [Entitic vol] 7.8 fL 6 - 12 fL [place] Platelets (Bld) [#/Vol] 245 10*3/uL [place] RBC (Bld) [#/Vol] 4.71 10*6/uL 4 - 5.2 m/uL [place] Segmented neutrophils/100 WBC (Bld) 54 % 34 - 64 % [place] Segs Absolute 5.00 [place] WBC (Bld) [#/Vol] 9.2 10*3/uL [place] WBC (Bld) [#/Vol] NOT REPORTED per 100 WBC [place] CBC with Diffon 01-07-2019 Immature granulocytes (Bld) [#/Vol] NOT REPORTED Normal 0 [place] Comment on above: Performed By: #### C DP, HCG, LIP, CP, TROPI, DIME #### [facility] [address] [facility] [place] [address] [employer]: Jeremie Gross DO Platelets (Bld) [#/Vol] NOT REPORTED Normal [place] Comment on above: Performed By: #### C DP, HCG, LIP, CP, TROPI, DIME #### [facility] [address] [facility] [place] [address] [employer]: Jeremie Gross DO RBC morphology finding Nom (Bld) NOT REPORTED Normal [place] Comment on above: Performed By: #### C DP, HCG, LIP, CP, TROPI, DIME #### [facility] [address] [facility] [place] [address] [employer]: Jeremie Gross, DO WBC Morphology NOT REPORTED Normal [place] Comment on above: Performed By: #### C DP, HCG, LIP, CP, TROPI, DIME #### [facility] [address] [facility] [place] [address] [employer]: Jeremie Gross DO Comp Metabolic Profon 2018 Albumin/Globulin [Mass ratio] NOT REPORTED Normal 1.0-2.5 [place] Comment on above: Performed By: #### C DP, HCG, LIP, CP, TROPI, DIME #### [facility] [address] [facility] [place] [address] [employer]: Jeremie Gross DO Bun/Cre Ratio NOT REPORTED Normal - [place] Comment on above: Performed By: #### C DP, HCG, LIP, CP, TROPI, DIME #### [facility] [address] [facility] [place] [address] [employer]: Jeremie Gross DO Comprehensive Metabolic Pane eric 01-07-2019 Albumin [Mass/Vol] 4.3 g/dL 3.5 - 5.2 g/dL [place] ALP [Catalytic activity/Vol] 86 U/L 35 - 104 U/L [place] ALT [Catalytic activity/Vol] 9 U/L 5 - 33 U/L [place] Anion gap [Moles/Vol] 11 mmol/L 9 - 17 mmol/L [place] AST [Catalytic activity/Vol] 12 U/L <32 [place] Bilirubin Ql (U) <0.15 Low 0.3 - 1.2 mg/dL [place] Calcium [Mass/Vol] 9.3 mg/dL 8.6 - 10. 4 mg/dL [place] Chloride [Moles/Vol] 104 mmol/L 98 - 107 mmol/L [place] CO2 [Moles/Vol] 25 mmol/L 20 - 31 mmol/L [place] Creatinine [Mass/Vol] 0.53 mg/dL 0.5 - 0.9 mg/dL [place] GFR NOT REPORTED >60 mL/min [place] GFR Non- Pediatric GFR requires additional information. Refer to NKDEP website for calculator. >60 mL/min [place] GFR/1.73 sq M predicted among non-blacks MDRD (S/P/Bld) [Vol rate/Area] [place] Comment on above: Average GFR for <20 years old not available. Chronic Kidney Disease: <60 mL/min/1.73sq m Kidney failure: <15 mL/min/1.73sq m eGFR calculated using average adult body mass. Additional eGFR calculator available at: http://www.[employer]/multiple_crcl_2012.htm GFR/1.73 sq M predicted among non-blacks MDRD (S/P/Bld) [Vol rate/Area] NOT REPORTED [place] Glucose [Mass/Vol] 86 mg/dL 70 - 99 mg/dL [place] Interpretation and review of laboratory results Abnormal [place] Potassium [Moles/Vol] 3.7 mmol/L 3.7 - 5.3 mmol/L [place] Protein [Mass/Vol] 7.4 g/dL 6.4 - 8.3 g/dL [place] Sodium [Moles/Vol] 140 mmol/L 135 - 144 mmol/L [place] Urea nitrogen [Mass/Vol] 18 mg/dL 6 - 20 mg/dL [place] D-Dimer, Quantitativeon 113 D-Dimer, Quant 0.34 [place], [place] Comment on above: When combined with a low clinical probability, a D dimer value of <0.50 mg/L FEU is considered negative for DVT and PE (negative predictive value of 98%, sensitivity of 97%). If this test is not being used to help rule out DVT and PE, then the following reference range should be utilized: 0.00 - 0.59 mg/L FEU. The D-Dimer assay is intended for use as an aid in the diagnosis of venous thromboembolism (DVT and PE) and the results should be interpreted in conjunction with the patient's medical history, clinical presentation, and other findings. The [employer] D-Dimer assay is intended for use as an aid in the diagnosis of venous thromboembolism (DVT and PE) and the results should be interpreted in conjunction with the patient's medical history, clinical presentation, and other findings. Elevated levels of D-dimer activity can be seen in any state of coagulation activation and is not recommended in patients with therapeutic dose anticoagulant therapy for >24 hours, fibrinolytic therapy within the previous 7 days, trauma or surgery within the previous 4 weeks, disseminated malignancies, aortic aneurysm, sepsis, severe infections, pneumonia, severe skin infections, liver cirrhosis, advanced age, coronary disease, diabetes, and . A very low percentage of patients with DVT may yield D-dimer results below the cutoff of 0.5 mg/L FEU. This is known to be more prevalent in patients with distal DVT. HCG Screen, Bloodon 01-08-20 19 hCG Qual Negative NEGATIVE [place] Comment on above: Specimens with hCG l evels near the threshold of the test (25 mIU/mL) may give a negative or indeterminate result. In such cases, another test should be performed with a new specimen in 48-72 hours. If early is suspected clinically in this setting, correlation with quantitative serum b-hCG level is suggested. Lipaseon 01-07-2019 Lipase [Catalytic activity/Vol] 28 U/L 13 - 60 U/L [place] Microscopic Urinalysison Amorphous, UA NOT REPORTED None [place], [place] Bacteria, UA FEW Abnormal None [place], [place] Casts UA NOT REPORTED /LPF [place] Crystals UA NOT REPORTED None /HPF [place] Epithelial Cells UA 5 TO 10 /HPF [place] Interpretation and review of laboratory results Abnormal [place] Mucus, UA NOT REPORTED None [place] Other Observations UA NOT REPORTED NOT REQ. [place] RBC (U) [#/Vol] 0 TO 2 /HPF [place] Renal Epithelial, Urine NOT REPORTED 0 /HPF [place] Trichomonas, UA NOT REPORTED None [place], [place] WBC, UA 0 TO 2 /HPF [place] Yeast, UA NOT REPORTED None [place] - [place] Troponinon 01-07-2019 Troponin I.cardiac [Mass/Vol] NOT REPORTED [place] Troponin T.cardiac [Mass/Vol] NOT REPORTED <0.03 ng/mL [place] Troponin, High Sensitivity <6 0 - 14 ng/L [place] Comment on above: High Sensitivity Troponin values cannot be compared with other Troponin methodologies. Patients with high levels of Biotin oral intake (i.e >5mg/day) may have falsely decreased Troponin levels. Samples collected within 8 hours of biotin intake may require additional information for diagnosis. Troponin I.cardiac [Mass/Vol] NOT REPORTED [place] Troponin T.cardiac [Mass/Vol] NOT REPORTED <0.03 ng/mL [place] Troponin, High Sensitivity <6 0 - 14 ng/L [place] Comment on above: High Sensitivity Troponin values cannot be compared with other Troponin methodologies. Patients with high levels of Biotin oral intake (i.e >5mg/day) may have falsely decreased Troponin levels. Samples collected within 8 hours of biotin intake may require additional information for diagnosis. Urinalysis Reflex to Culture on 01-07-2019 Bilirubin Urine Negative NEGATIVE [place] Color, UA YELLOW YELLOW [place] Glucose, Ur Negative NEGATIVE [place] Interpretation and review of laboratory results Abnormal [place] Ketones Ql (U) Negative NEGATIVE [place] Leukocyte esterase Test strip Ql (U) Negative NEGATIVE [place] Nitrite, Urine Negative NEGATIVE [place] pH, UA 6.5 [place] Protein (U) [Mass/Vol] Negative NEGATIVE [place] Specific [place], UA 1.024 [place] Turbidity UA CLOUDY Abnormal CLEAR [place], [place] Urinalysis Comments NOT REPORTED [place], [place] Urine Hgb Negative NEGATIVE [place], [place] Urobilinogen, Urine Normal Normal [place], [place] XR CHEST STANDARD (2 VW)on 03-09-2018 EXAMINATION: TWO XRA Y VIEWS OF THE CHEST 01/07/2019 9:46 pm COMPARISON: None. HISTORY: ORDERING SYSTEM PROVIDED HISTORY: chest pain TECHNOLOGIST PROVIDED HISTORY: chest pain Reason for Exam: chest pain Acuity: Acute Type of Exam: Initial FINDINGS: The lungs are without acute focal process. There is no effusion or pneumothorax. The cardiomediastinal silhouette is without acute process. The osseous structures are without acute process. [place], [place] Julián, Mhpn Incoming Radiant Results From [employer] Videos - 01/07/2019 10:07 PM EST EXAMINATION: TWO XRAY VIEWS OF THE CHEST 01/07/2019 9:46 pm COMPARISON: None. HISTORY: ORDERING SYSTEM PROVIDED HISTORY: chest pain TECHNOLOGIST PROVIDED HISTORY: chest pain Reason for Exam: chest pain Acuity: Acute Type of Exam: Initial FINDINGS: The lungs are without acute focal process. There is no effusion or pneumothorax. The cardiomediastinal silhouette is without acute process. The osseous structures are without acute process. IMPRESSION: No acute process. [facility] [place] No acute process. [facility] [place] HCG, ,Urineon 12-03 Beta HCG ( test) Ql (U) Negative Normal NEG [facility] Comment on above: Result Comment: Spec imens with hCG levels near the threshold of the test (25 mIU/mL) may give a negative or indeterminate result. In such cases, another test should be performed with a new specimen in 48-72 hours. If early is suspected clinically in this setting, correlation with quantitative serum b-hCG level is suggested. Performed By: #### U HCG, UAX #### [facility] [address] [facility] [place] [address] [employer]: Jeremie Gross DO Beta HCG ( test) Ql (U) Negative NEGATIVE [place], [place] Comment on above: Specimens with hCG l evels near the threshold of the test (25 mIU/mL) may give a negative or indeterminate result. In such cases, another test should be performed with a new specimen in 48-72 hours. If early is suspected clinically in this setting, correlation with quantitative serum b-hCG level is suggested. UA w/Reflex Cultureon 2018 Acetoacetic Acid,Ur Negative Normal NEG [facility] Comment on above: Performed By: #### U HCG, UAX #### [facility] [address] [place] [address] [employer]: Jeremie Gross DO Bilirubin, SemiQt,Ur Negative Normal NEG [facility] Comment on above: Performed By: #### U HCG, UAX #### [facility] [place] [address] [employer]: Jeremie Gross DO Color (U) YELLOW Normal YEL [facility] Comment on above: Performed By: #### U HCG, UAX #### [facility] [address] [place] [id number] [employer]: Jeremie Gross DO Comment Microscopic exam not performed based on chemical results unless requested in Normal [facility] Comment on above: Result Comment: orig inal order. Performed By: #### U HCG, UAX #### [facility] [address] [place] [phone] [employer]: Jeremie Gross DO Glucose Ql (U) Negative Normal NEG [facility] Comment on above: Performed By: #### U HCG, UAX #### [facility] [address] [place] [address] [employer]: Jeremie Gross DO Hemoglobin, Ur Negative Normal NEG [facility] Comment on above: Performed By: #### U HCG, UAX #### [facility] [address] [place] [address] [employer]: Jeremie Gross DO Nitrite,Ur Negative Normal NEG [facility] Comment on above: Performed By: #### U HCG, UAX #### [facility] [address] [place] [address] [employer]: Jeremie Gross DO pH (U) 8.5 [pH] High 5.0-8.0 [facility] Comment on above: Performed By: #### U HCG, UAX #### [facility] [facility] [place] [address] [employer]: Jeremie Gross DO Protein Ql (U) Negative Normal NEG [facility] Comment on above: Performed By: #### U HCG, UAX #### [facility] [address] [place] [id number] [employer]: Jeremie Gross DO Specific gravity (U) [Rel density] 1.018 Normal 1.000-1.030 [facility] Comment on above: Performed By: #### U HCG, UAX #### [facility] [address] [place] [address] [employer]: Jeremie Gross DO Turbidity CLEAR Normal CLEAR [facility] Comment on above: Performed By: #### U HCG, UAX #### [facility] [address] [place] [address] [employer]: Jeremie Gross DO Urobilinogen,Ur Normal Normal NORM [facility] Comment on above: Performed By: #### U HCG, UAX #### [facility] [address] [place] [address] [employer]: Jeremie Gross DO Leukocyte esterase Test strip Ql (U) Negative Normal NEG [place] Comment on above: Performed By: #### U HCG, UAX #### [facility] [address] [place] [phone] [employer]: Jeremie Gross DO Urinalysis Reflex to Culture on 2018 Bilirubin Urine Negative NEGATIVE [facility] [place], [place] Color, UA YELLOW YELLOW [facility] [place], [place] Glucose, Ur Negative NEGATIVE [facility] [place], [place] Interpretation and review of laboratory results Abnormal [facility], [place] Ketones Ql (U) Negative NEGATIVE [facility] [place], [place] Nitrite, Urine Negative NEGATIVE [facility] [place], [place] pH, UA 8.5 High [facility] Protein (U) [Mass/Vol] Negative NEGATIVE [facility], ERROL Specific [place], UA 1.018 [facility] Turbidity UA CLEAR CLEAR [facility] Comments Microscopic exam not performed based on chemical results unless requested in original order. [facility] [place], ERROL Urine Hgb Negative NEGATIVE [facility] Urobilinogen, Urine Normal Normal [facility] ANKLE RIGHT (MIN 3 VIEWS) on 09-12-2018 XR ANKLE RIGHT (MIN 3 VIEWS) EXAMINATION: THREE XRAY VIEWS OF THE RIGHT ANKLE 09/12/2018 5:12 pm COMPARISON: None. HISTORY: ORDERING SYSTEM PROVIDED HISTORY: injury 3 weeks ago. pain, swelling. TECHNOLOGIST PROVIDED HISTORY: injury 3 weeks ago. pain, swelling. Reason for Exam: Pt states she sprained her right ankle 3 weeks ago and the pain has been getting worse since then. She states most pain is to lateral aspect of ankle and radiating up to her knee. Acuity: Unknown Type of Exam: Unknown Mechanism of Injury: Pt states she sprained her right ankle 3 weeks ago and the pain has been getting worse since then. She states most pain is to lateral aspect of ankle and radiating up to her knee. FINDINGS: There is no acute fracture or dislocation.The joint spaces are preserved. There are no radiopaque foreign bodies. IMPRESSION: No acute fracture or dislocation. Interpreted by: Damian Ochoa MD Signed by: Damian Ochoa MD 09/12/18 Final result Normal [facility] Vital Signs Date Time Vital Sign Value Performing Clinician Facility 02-11-2024 10:10-0500 Body mass index (BMI) [Ratio] 22.85 kg/m2 Cady Maribel [employer] Work Phone: [facility] 02-11-2024 10:10-0500 Body weight 58.51 kg Cady Maribel [employer] Work Phone: [facility] 02-11-2024 10:10-0500 Diastolic blood pressure 60 mm[Hg] Cady López APRNHit[employer] Work Phone: [facility] 02-11-2024 10:10-0500 Systolic blood pressure 118 mm[Hg] Cady López [employer] Work Phone: [facility] 03-09-2023 14:31-0500 Body mass index (BMI) [Ratio] 25.51 kg/m2 Eusebio Carole DO Work Phone: [facility] 03-09-2023 14:31-0500 Body weight 65.32 kg Eusebio Carole DO Work Phone: [facility] 03-09-2023 14:31-0500 Diastolic blood pressure 72 mm[Hg] Eusebio Carole DO Work Phone: [facility] 03-09-2023 14:31-0500 Systolic blood pressure 120 mm[Hg] Eusebio Carole DO Work Phone: [facility] 10-05-2021 02:05-0400 Body weight 80.[address] EUSEBIO LAM . [facility] Comment on above: Performed By: #### AFPMAT #### [facility] [address] [place] [address] Dr. Qi Benedict 06-01-2019 14:51-0400 BMI (Body Mass Index) 31.35 kg/m2 [facility] 06-01-2019 14:51-0400 Body Temperature 99 [degF] [facility], [place] 06-01-2019 14:51-0400 Body weight 80.29 kg [facility] , [place] 06-01-2019 14:51-0400 Height 160 cm [facility] , [place] 06-01-2019 14:51-0400 Pulse (Heart Rate) 83 /min [facility], [place] 06-01-2019 14:51-0400 Pulse Oximetry 99 % [place], [place] 06-01-2019 14:51-0400 Respiratory Rate 16 /min [facility] [place] 05-24-2019 23:36-0400 BMI (Body Mass Index) 32.01 kg/m2 [facility] 05-24-2019 23:36-0400 Body Temperature 98.6 [degF] [facility], [place] 05-24-2019 23:36-0400 Body weight 79.38 kg [place], [place] 05-24-2019 23:36-0400 BP Diastolic 86 mm[Hg] [facility] [place] 05-24-2019 23:36-0400 BP Systolic 135 mm[Hg] [facility] [place] 05-24-2019 23:36-0400 Height 157.5 cm [place], [place] 05-24-2019 23:36-0400 Pulse (Heart Rate) 98 /min [place], [place] 05-24-2019 23:36-0400 Pulse Oximetry 99 % [facility] , [place] 05-24-2019 23:36-0400 Respiratory Rate 20 /min [facility], [place] 01-07-2019 23:25-0500 Body Temperature 98.6 [degF] [facility], [place] 01-07-2019 23:25-0500 BP Diastolic 78 mm[Hg] [facility] , [place] 01-07-2019 23:25-0500 BP Systolic 124 mm[Hg] [facility] , [place] 01-07-2019 23:25-0500 Pulse (Heart Rate) 77 /min [facility], [place] 01-07-2019 23:25-0500 Pulse Oximetry 99 % [facility] , [place] 01-07-2019 23:25-0500 Respiratory Rate 16 /min [facility], [place] 01-07-2019 21:09-0500 Height 160 cm [facility] , [place] 2018 17:25-0400 BMI (Body Mass Index) 25.61 kg/m2 [facility] 2018 17:25-0400 Body Temperature 98.1 [degF] [place], [place] 2018 17:25-0400 Body weight 63.5 kg [place], [place] 2018 17:25-0400 BP Diastolic 64 mm[Hg] [place] 2018 17:25-0400 BP Systolic 92 mm[Hg] [place] 2018 17:25-0400 Height 157.5 cm [place] 2018 17:25-0400 Pulse (Heart Rate) 80 /min [place], [place] 2018 17:25-0400 Pulse Oximetry 98 % [place], [place] 2018 17:25-0400 Respiratory Rate 16 /min [place], [place] Encounters Encounter Date Encounter Type Care Provider Facility Start: 02-11-2024 End: 02-11-2024 Initial care visit Cady López [employer]CKLE INSPECTOR[employer] Work Phone: [facility] Comment on above: GA: [id number] Start: 01-26-2024 End: 01-26-2024 ambulatory [facility] Start: 01-19-2024 End: 01-19-2024 ambulatory ANN-MARIE ASH [facility] Start: 01-18-2024 End: 01-18-2024 ambulatory GENNY M [facility] Start: 01-18-2024 End: 01-18-2024 Telemedicine consultation with patient Genny Johnson [employer]CKLE INSPECTOR[employer] Work Phone: [facility] Comment on above: First trimester preg cindi (Primary Dx) Start: 01-11-2024 End: 01-11-2024 Emergency department patient visit ANN-MARIE ASH MD Facility:[facility] Start: 11-03-2023 End: 11-03-2023 Bamboo flowsheet Eusebio Carole DO Work Phone: [facility] Start: 11-03-2023 End: 11-03-2023 Bamboo flowsheet Eusebio Carole DO Work Phone: [facility] Start: 11-03-2023 End: 11-03-2023 Clinisync Result Encounter Eusebio Carole DO Work Phone: [facility] Unsolicited Start: 11-03-2023 End: 11-03-2023 Office outpatient visit 15 minutes Eusebio Carole DO Work Phone: [facility] Comment on above: Follow-up encounter involving medication; depression (CMS/HCC); Weight loss Start: 09-01-2023 ambulatory [place] Start: 03-22-2023 End: 03-22-2023 Emergency department patient visit ANN-MARIE Vanda [facility] Start: 03-09-2023 End: 03-09-2023 ambulatory EUSEBIO LAM Not Available Start: 03-09-2023 End: 03-09-2023 Office outpatient visit 15 minutes Eusebio Carole DO Work Phone: [facility] Comment on above: 6 weeks f ollow-up; control counseling Start: 01-04-2023 End: 01-04-2023 ambulatory MARILY THOMAS Not Available Start: 12-21-2022 End: 12-21-2022 ambulatory EUSEBIO LAM Not Available Start: 07-03-2022 End: 07-04-[address] EUSEBIO LAM . Facility:[facility] Start: 06-04-2022 End: 06-05-[address] EUSEBIO LAM . Facility:[facility] Start: 05-29-2022 End: 05-30-[address] EUSEBIO LAM . Facility:[facility] Start: 02-03-2022 End: 02-03-[address] EUSEBIO LAM . Facility:[facility] Start: 01-29-2022 End: 01-31-2022 Evaluation and management of inpatient DR EUSEBIO LAM . Facility:[facility] Start: 01-22-2022 End: 01-22-[address] EUSEBIO ALM . Facility:[facility] Start: 01-04-2022 End: 01-04-2022 ambulatory JACKLYN FRIED Facility:[facility] Start: 12-25-2021 End: 12-26-[address] EUSEBIO LAM . Facility:[facility] Start: 2021 End: [address] EUSEBIO LAM . Facility:[facility] Start: 09-29-2021 End: 09-30-[address] EUSEBIO LAM . Facility:[facility] Start: 09-25-2021 End: 09-26-[address] EUSEBIO LAM . Facility:[facility] Start: 09-08-[address] EUSEBIO LAM . Facili ty:[facility] Start: 08-29-2021 End: 08-29-[address] ANITA MURRAY . Facility:[facility] Start: 06-01-2019 End: 06-01-2019 Emergency department patient visit ANN-MARIE ASH [facility] Start: 06-01-2019 End: 06-01-2019 Emergency department patient visit Victorino Sullivan Work Phone: [facility] ED Comment on above: Sprain of right ankl e, unspecified ligament, initial encounter (Primary Dx); Contusion of back wall of thorax, unspecified laterality, initial encounter Start: 05-25-2019 End: 05-25-2019 Emergency department patient visit ANN-MARIE ASH [facility] Start: 05-24-2019 End: 05-25-2019 Emergency department patient visit Alexandria Siddiqui Work Phone: [facility] ED Comment on above: Sprain of right ankl e, unspecified ligament, initial encounter (Primary Dx) Start: 05-15-2019 End: 05-16-2019 Patient encounter procedure TRUDY RAMAN [facility] Start: 05-15-2019 End: 05-15-2019 Subsequent hospital visit by physician Ann-Marie HARRELL [facility] Comment on above: Amenorrhea Start: 03-12-2019 End: 03-12-2019 Emergency department patient visit ANN-MARIE ASH [facility] Start: 01-07-2019 End: 01-08-2019 Emergency department patient visit ANN-MARIE A [facility] Start: 01-07-2019 End: 01-08-2019 Emergency department patient visit Ann-Marie Engle Work Phone: [facility] ED Comment on above: Dyspepsia (Primary D x); Atypical chest pain Start: 2018 End: 2018 Emergency department patient visit ANN-MARIE Vanda [facility] Start: 2018 End: 2018 Emergency department patient visit Kosta Lozano Work Phone: [facility] Comment on above: examinatio n or test, negative result (Primary Dx) Start: 09-12-2018 End: 09-12-2018 Emergency department patient visit [facility] Vanda [facility] Procedures Date Procedure Procedure Detail Performing Clinician Start: 02-09-2024 Adult depression scr eening assessment Cady Maribel [employer]LE INSPECTOR[employer] Work Phone: Start: 11-03-2023 ALL CBC WITH AUTO DIFF Eusebio Lam DO Work Phone: Start: 11-09-2022 Microscopic observat ion [Identifier] in Cervix by Cyto stain Genny Johnson [employer]CKLE INSPECT[employer] Work Phone: Start: 01-29-2022 Delivery of Products of Conception, External Approach DR EUSEBIO LAM . Start: 01-29-2022 Drainage of Amniotic Fluid, Therapeutic from Products of Conception, Via Natural or Artificial Opening DR EUSEBIO LAM . Start: 06-01-2019 BANDAGE LUISITO 4 TRUDY Bruce Start: 06-01-2019 DURAMEDIC ORTHOPEDIC SUPPLIES TRUDY BEAM Start: 06-01-2019 Radex ankle complete minimum 3 views TRUDY BEAM Start: 06-01-2019 Radex spine thoracic 3 views TRUDY BEAM Start: 06-01-2019 Urine test visual color cmprsn meths TRUDY BEAM Start: 06-01-2019 Radex ankle complete minimum 3 views Victorino Sullivan Work Phone: Start: 06-01-2019 Radex spine thoracic 3 views Victorino Sullivan Work Phone: Start: 06-01-2019 Urine test visual color cmprsn meths Victorino Sullivan Work Phone: Start: 05-25-2019 DURAMEDIC ORTHOPEDIC SUPPLIES TRUDY RAMAN Start: 05-25-2019 Radex ankle complete minimum 3 views TRUDY RAMAN Start: 05-25-2019 Radex ankle complete minimum 3 views Alexandria Siddiqui Work Phone: Start: 05-15-2019 Gonadotropin chorion ic quantitative TRUDY RAMAN Start: 05-15-2019 Gonadotropin chorion ic quantitative Trudy Raman Work Phone: Start: 03-12-2019 DURAMEDIC ORTHOPEDIC SUPPLIES ANN-MARIE ASH Start: 03-12-2019 Radex shoulder compl ete minimum 2 views ANN-MARIE ASH Start: 03-12-2019 APPLY ICE TO AFFECTED AREA ANN-MARIE ASH Start: 01-08-2019 Urinalysis microscopic only ANN-MARIE ASH Start: 01-08-2019 Urnls dip stick/tabl et rgnt auto w/o microscopy ANN-MARIE ASH Start: 01-07-2019 Radiologic exam ches t 2 views ANN-MARIE ASH Start: 01-07-2019 Ecg routine ecg w/le ast 12 lds w/i&r ANN-MARIE ASH Start: 01-07-2019 Urinalysis microscopic only Ann-Marie Engle Work Phone: Start: 01-07-2019 Urnls dip stick/tabl et rgnt auto w/o microscopy Ann-Marie Engle Work Phone: Start: 01-08-2019 Assay of lipase Ann-Marie modi Work Phone: Start: 01-07-2019 End: 01-07-2019 Assay of troponin quantitative Ann-Marie Engle Work Phone: Start: 01-08-2019 Blood count complete auto&auto difrntl wbc Ann-Marie Engle Work Phone: Start: 01-08-2019 Comprehensive metabo lic panel Ann-Marie Engle Work Phone: Start: 01-08-2019 Fibrin dgradj produc ts d-dimer quantitative Ann-Marie Engle Work Phone: Start: 01-08-2019 Gonadotropin chorion ic qualitative Ann-Marie Engle Work Phone: Start: 01-07-2019 Radiologic exam ches t 2 views Ann-Marie Oniel Work Phone: Start: 2018 Urine test visual color cmprsn meths ANN-MARIE ASH Start: 2018 Urnls dip stick/tabl et rgnt auto w/o microscopy ANN-MARIE ASH Start: 2018 Urine test visual color cmprsn meths Ellen Alas Work Phone: Start: 2018 Urnls dip stick/tabl et rgnt auto w/o microscopy Ellen Alas Work Phone: Start: 09-12-2018 AIR CAST ANN-MARIE BAJWA Start: 09-12-2018 CRUTCHES ANN-MARIE BAJWA Start: 09-12-2018 Radex ankle complete minimum 3 views ANN-MARIE MIHIR Plan of Treatment Date Care Activity Detail Author Start: 02-01-2032 DTaP,Tdap and Td Vaccines (6 - Td or Tdap) DTaP,Tdap and Td Vaccines (6 - Td or Tdap) [facility] Start: 11-09-2025 Screening for malign ant neoplasm of cervix Pap Smear [facility] Start: 02-10-2025 Adult BMI Screening Adult BMI Screen ing [facility] Start: 02-10-2025 Tobacco Screening Tobacco Screening [facility] Start: 02-08-2025 Depression Screening Depression Scre ening [facility] Start: 03-22-2024 Tobacco Screening Tobacco Screening [facility] Start: 03-10-2024 End: 03-10-2024 Patient encounter procedure 03/10/2024 8:45 AM EST Routine [facility] [address] [place] [address] Genny Johnson, [employer] [address] [facility] [place] [place], [place] [id number] [facility] Start: 02-11-2024 End: 02-10-2025 US MFM with or without consult US MFM with or without consult Imaging Routine History of gestational hypertension Abnormal genetic test during History of delivery, currently Expected: 02/11/2024, Expires: 02/10/2025 [facility] Work Phone: Comment on above: Expected: 02/11/2024 , Expires: 02/10/2025 Start: 02-11-2024 End: 02-11-2024 ambulatory 02/11/2024 10:00 AM EST Initial [facility] [address] [facility] [place] [phone] Cady López, [employer] [address] [facility] [address] [place] [address] [facility] Start: 01-26-2024 End: 01-26-2024 Patient encounter procedure 01/26/2024 10:00 AM EST Appointment [facility] [address] [place] [id number] Genny Johnson, [employer] INS[employer] [address] [place] [address] [facility] Start: 01-20-2024 End: 01-20-2024 Patient encounter procedure 01/20/2024 11:20 AM EST Office Visit [facility] [address] [place] [address] Eusebio Lam DO [address] [place] [address] [facility] Start: 01-18-2024 End: 01-17-2025 US transvaginal for Ultrasound less than 14 weeks with transvaginal Imaging Routine First trimester Expected: 01/18/2024, Expires: 01/17/2025 [facility] Work Phone: Comment on above: Expected: 01/18/2024 , Expires: 01/17/2025 Start: 10-10-2023 Influenza vaccination Influenza Vacc ine [facility] Start: 08-31-2023 DTaP/Tdap/Td vaccine (5 - Td) DTaP/Tdap/Td vaccine (5 - Td) [place] Start: 09-15-2022 Adult BMI Screening Adult BMI Screen ing [facility] Start: 06-24-2022 Screening for Chlamy penelope trachomatis Chlamydia Screening [facility] Start: 10-10-2019 Influenza vaccination Flu vacc ine (Season Ended) [place], [place] Start: 12-02-2018 DTaP/Tdap/Td vaccine (1 - Tdap) DTaP/Tdap/Td vaccine (1 - Tdap) [place] Start: 10-09-2018 Influenza vaccination Flu vaccine (# 1) [place] Start: 08-04-2016 Chlamydia screen Chlamydia screen [place], [place] Start: 08-04-2016 Screening for Chlamy penelope trachomatis Chlamydia [place] Start: 12-02-2014 HIV screen HIV screen [place], [place] Start: 12-02-2014 HIV screening HIV screen [place], [place] Start: 12-02-2014 HPV vaccine (1 - Fem joselyn 3-dose series) HPV vaccine (1 - Female 3-dose series) [place] Start: 12-02-2012 Varicella Vaccine (1 of 2 - 13+ 2-dose series) Varicella Vaccine (1 of 2 - 13+ 2-dose series) [place] Start: 2011 Depression Screening Depression Scre ening [facility] Start: 12-02-2010 DTaP/Tdap/Td vaccine (1 - Tdap) DTaP/Tdap/Td vaccine (1 - Tdap) [place] Start: 12-02-2010 HPV vaccine (1 - Fem joselyn 2-dose series) HPV vaccine (1 - Female 2-dose series) [place] Start: 12-02-2005 Pneumococcal 0-64 ye ars Vaccine (1 of 1 - PPSV23) Pneumococcal 0-64 years Vaccine (1 of 1 - PPSV23) [place] Start: 2003 Varicella vaccine (2 of 2 - 2-dose childhood series) Varicella vaccine (2 of 2 - 2-dose childhood series) [place] Start: 12-02-2000 Varicella Vaccine (1 of 2 - 2-dose childhood series) Varicella Vaccine (1 of 2 - 2-dose childhood series) [place] Start: 1999 Tobacco Counseling Tobacco Counselin g [facility] End: 01-17-2025 Bacteria identified in Urine by Culture Urine Culture Microbiology Routine First trimester 1 Occurrences starting 01/18/2024 until 01/17/2025 [facility] Comment on above: 1 Occurrences starti ng 01/18/2024 until 01/17/2025 End: 01-17-2025 CBC panel - Blood by Automated count CBC without diff Lab Routine First trimester 1 Occurrences starting 01/18/2024 until 01/17/2025 [facility] [employer] Comment on above: 1 Occurrences starti ng 01/18/2024 until 01/17/2025 CBC W Auto Different ial panel - Blood CBC and differential Lab Routine Weight loss Ordered: 11/03/2023 [facility] Work Phone: Comment on above: Ordered: 11/03/2023 End: 01-17-2025 Comprehensive metabolic 2000 panel - Serum or Plasma Comprehensive metabolic panel Lab Routine First trimester 1 Occurrences starting 01/18/2024 until 01/17/2025 [facility] Comment on above: 1 Occurrences starti ng 01/18/2024 until 01/17/2025 End: 01-17-2025 Drug Screen, Urine Drug Screen, Urine Lab Routine First trimester 1 Occurrences starting 01/18/2024 until 01/17/2025 [facility] Comment on above: 1 Occurrences starti ng 01/18/2024 until 01/17/2025 End: 01-17-2025 HCG, Quantitative, HCG, Quantitative, Lab Routine First trimester 1 Occurrences starting 01/18/2024 until 01/17/2025 [facility] Comment on above: 1 Occurrences starti ng 01/18/2024 until 01/17/2025 Hemoglobin A1c/Hemoglobin.total in Blood Hemoglobin A1c Lab Routine Weight loss Ordered: 11/03/2023 [facility] Comment on above: Ordered: 11/03/2023 End: 01-17-2025 Hepatitis panel, acute Hepatitis panel, acute Lab Routine First trimester 1 Occurrences starting 01/18/2024 until 01/17/2025 [facility] Comment on above: 1 Occurrences starti ng 01/18/2024 until 01/17/2025 End: 01-17-2025 HIV 1&2 AB/AG Screen (P24 AG) HIV 1&2 AB/AG Screen (P24 AG) Lab Routine First trimester 1 Occurrences starting 01/18/2024 until 01/17/2025 [facility] Comment on above: 1 Occurrences starti ng 01/18/2024 until 01/17/2025 End: 01-17-2025 LDH LDH Lab Routine First trimester 1 Occurrences starting 01/18/2024 until 01/17/2025 [facility] Comment on above: 1 Occurrences starti ng 01/18/2024 until 01/17/2025 End: 01-17-2025 Rubella IGG immune status Rubella IGG immune status Lab Routine First trimester 1 Occurrences starting 01/18/2024 until 01/17/2025 [facility] Comment on above: 1 Occurrences starti ng 01/18/2024 until 01/17/2025 End: 01-17-2025 Syphilis Total(Unknown Syphilis Status) Syphilis Total(Unknown Syphilis Status) Lab Routine First trimester 1 Occurrences starting 01/18/2024 until 01/17/2025 [facility] Comment on above: 1 Occurrences starti ng 01/18/2024 until 01/17/2025 End: 02-10-2025 Thyroid profile includes TSH FT4 Thyroid profile includes TSH FT4 Lab Routine History of thyroid disorder 1 Occurrences starting 02/11/2024 until 02/10/2025 [facility] Comment on above: 1 Occurrences starti ng 02/11/2024 until 02/10/2025 Thyrotropin [Units/volume] in Serum or Plasma TSH Lab Routine Weight loss Ordered: 11/03/2023 [facility] Comment on above: Ordered: 11/03/2023 Thyroxine (T4) free [Mass/volume] in Serum or Plasma T4, free Lab Routine Weight loss Ordered: 11/03/2023 [facility] Comment on above: Ordered: 11/03/2023 End: 01-17-2025 Type and screen Type and screen Blood Bank Routine First trimester 1 Occurrences starting 01/18/2024 until 01/17/2025 [facility] Comment on above: 1 Occurrences starti ng 01/18/2024 until 01/17/2025 End: 01-17-2025 Urate [Mass/volume] in Serum or Plasma Uric acid Lab Routine First trimester 1 Occurrences starting 01/18/2024 until 01/17/2025 [facility] Comment on above: 1 Occurrences starti ng 01/18/2024 until 01/17/2025 End: 01-17-2025 Urinalysis Urinalysis Lab Routine First trimester 1 Occurrences starting 01/18/2024 until 01/17/[facility]: 1 Occurrences starti ng 01/18/2024 until 01/17/2025 End: 01-17-2025 Urine Creatinine,random Urine Creatinine,random Lab Routine First trimester 1 Occurrences starting 01/18/2024 until [facility]17/[facility] on above: 1 Occurrences starti ng 01/18/2024 until 01/17/2025 End: 01-17-2025 Urine protein creatinine ratio Urine protein creatinine ratio Lab Routine First trimester 1 Occurrences starting 01/18/2024 until 01/17/2025 [facility] Comment on above: 1 Occurrences starti ng 01/18/2024 until 01/17/2025 End: 01-17-2025 Varicella zoster antibody, IgG Varicella zoster antibody, IgG Lab Routine First trimester 1 Occurrences starting 01/18/2024 until 01/17/2025 [facility] Comment on above: 1 Occurrences starti ng 01/18/2024 until 01/17/2025 Payers Date Payer Category Payer Unknown UNKNOWN 2022 Medicaid [id number] 2022 Medicaid [id number] 2018 Unknown [id number] 2018 Unknown [employer] xxxxxxxxxxx 2018-[facility] [phone] [address] [place] [id number] xxxxxxxxxxx [id number]. [id number] 1999 Unknown [id number] 2.16.840.1.737947.3.579.2.176 1999 Unknown [id number] 2.16.840.1.896357.3.579.2.176 1999 Unknown [id number] 2.16.840.1.930197.3.579.2.176 1999 Unknown [id number] 2.16.840.1.401407.3.579.2.176 1999 Unknown [id number] 2.16.840.1.076660.3.579.2.175 1999 Unknown [id number] 2.16.840.1.808717.3.579.2.175 1999 Unknown [id number] 2.16.840.1.218371.3.579.2.175 1999 Unknown [id number] 2.16.840.1.348092.3.579.2.593 1999 Unknown [id number] 2.16.840.1.546179.3.579.2.593 1999 Unknown [id number] 2.16.840.1.073941.3.579.2.593 1999 Unknown [id number] 2.16.840.1.572724.3.579.2.593 1999 Unknown [id number] 2.16.840.1.327345.3.579.2.593 1999 Unknown [id number] 2.16.840.1.341632.3.579.2.593 1999 Unknown [id number] 2.16.840.1.763653.3.579.2.593 1999 Unknown [id number] 2.16.840.1.075726.3.579.2.593 1999 Unknown [id number] 2.16.840.1.901060.3.579.2.593 1999 Unknown [id number] 2.16.840.1.839894.3.579.2.593 1999 Unknown [id number] 2.16.840.1.994556.3.579.2.593 1999 Unknown [id number] 2.16.840.1.513322.3.579.2.593 1999 Unknown [id number] 2.16.840.1.464932.3.579.2.593 1999 Unknown [id number] 2.16.840.1.910500.3.579.2.1259 1999 Unknown [id number] 2.16.840.1.568580.3.579.2.1259 1999 Unknown [id number] 2.16.840.1.911696.3.579.2.1259 1999 Unknown [id number] 2.16.840.1.099120.3.579.2.718 1999 Unknown [id number] 2.16.840.1.334947.3.579.2.1286 1999 Unknown [id number] 2.16.840.1.403724.3.579.2.1286 1999 Unknown [id number] 2.16.840.1.278085.3.579.2.1286 1999 Unknown [id number] 2.16.840.1.378609.3.579.2.1286 1959 Self-pay 1959 Unknown [id number] 1959 Unknown [id number] Unknown [id number] 2.16.840.1.084068.3.579.2.593 Social History Date Type Detail Facility Start: 06-01-2019 End: 03-22-2023 Tobacco smoking status NHIS Current every day smoker [facility] Start: 06-01-2019 End: 03-21-2020 Cigarettes smoked current (pack per day) - Reported [place], [place] Start: 01-07-2019 End: 06-01-2019 Alcohol intake Current non-drinker of alcohol (finding) [place] Start: 03-03-2011 Tobacco Comment Mother smokes [place], [place] Start: 1999 Sex Assigned At Not on file [employer], [place] Exposure to SARS-CoV -2 (event) Unable to assess [place], [place] Start: 2018 End: 03-21-2020 Alcohol intake No [place] History of tobacco use Cigarette Smoker [facility] Start: 03-09-2023 End: 11-03-2023 Alcohol intake Current drinker of alcohol (finding) [facility] Start: 08-05-2022 Tobacco Comment <1PPPD [facility] Start: 08-05-2022 Alcohol Comment heavy alcohol use [facility] History of tobacco use Tobacco U se Types Packs/Day Years Used Date Smoking Tobacco: Every Day Vaping/E-cigarettes Smokeless Tobacco: Never [facility] Start: 03-22-2023 Tobacco use and exposure Smoke less tobacco non-user [facility] Start: 01-18-2024 End: 02-11-2024 Alcoholic beverage intake Ex-drinker (finding) [facility] Frequency of Alcohol Consumption Never [facility] Start: 02-25-2021 Alcohol Comment occasional [facility] Start: 12-15-2023 [facility] Start: 01-03-2018 Sex Female (finding) [facility] How hard is it for y ou to pay for the very basics like food, housing, medical care, and heating Not very hard [facility] Clinical Notes 03-09-2023 to 02-11-2024 Cady López, ADELE - 02/11/2024 10:00 AM Richy Saunders LPN - 01/18/2024 10:45 AM Catherine Johnson, ADELE - 01/18/2024 10:45 AM Chandra Moncada LPN - 11/03/2023 1:00 PM EDT Note Date & Type Note Facility 02-11-2024 History of Present illness Narrative Subjective Hawk King is a 23 y.o. at 8w1d by LMP not equal to 5wk us who presents with her fiance for an initial visit. She is doing well overall. Pt vapes Nicotine and uses marijuana for nausea. Declined antiemetic rx. States she plans on stopping marijuana use at 20 weeks. 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 Start after 12 weeks gestation., Disp: 30 tablet, Rfl: 6 Vitals: 02/11/24 1010 BP: 118/60 Weight: 58.5 kg (129 lb) Body mass index is 22.85 kg/m . Physical Exam Constitutional: General: She is not in acute distress. Appearance: Normal appearance. She is not ill-appearing. HENT: Head: Normocephalic and atraumatic. Nose: No rhinorrhea. Eyes: Extraocular Movements: Extraocular movements intact. Neck: Thyroid: No thyroid tenderness. Cardiovascular: Rate and Rhythm: Normal rate and regular rhythm. Pulmonary: Effort: Pulmonary effort is normal. No respiratory distress. Breath sounds: Normal breath sounds. Genitourinary: Comments: Pt declined, agreeable to GC/CT next visit Musculoskeletal: General: Normal range of motion. Cervical back: Normal range of motion. Right lower leg: No edema. Left lower leg: No edema. Lymphadenopathy: Cervical: No cervical adenopathy. Skin: General: Skin is warm and dry. Neurological: General: No focal deficit present. Mental Status: She is alert. Psychiatric: Mood and Affect: Mood normal. Behavior: Behavior normal. Thought Content: Thought content normal. Judgment: Judgment normal. Problem List Depressive disorder Overview No current medications. Referral for [facility] placed. Relevant Orders [place], [place] Anxiety Overview No current medications. [facility]. Relevant Orders [place], [place] Smoker Overview Discussed cessation Abnormal genetic test during Overview 08/04/21 NIPS positive for CF and SMA Discussed carrier screening for partner. He declined screening. [facility] or without [facility] History of delivery, currently Overview G4 35 wk MFM referral placed Relevant Orders [facility] with or without consult History of thyroid disorder Overview Pt unsure if hyper or hypothyroidism. Thyroid profile ordered. Relevant Orders Thyroid profile includes TSH FT4 History of gestational hypertension Overview ASA at 12 wks Relevant Medications aspirin 81 mg chewable tablet Other Relevant Orders [facility] with or without consult Assessment & Plan 23 y.o. female at 8w1d based on LMP not equal to 5 week US 1. 8 weeks gestation of (Primary) 2. History of gestational hypertension Baseline HTN labs obtained - [facility] with or without consult; Future - aspirin 81 mg chewable tablet; Chew 1 tablet (81 mg total) and swallow in the morning. Start after 12 weeks gestation. Dispense: 30 tablet; Refill: 6 3. Depressive disorder Pt reports hx of preexisting and depression. Was on antidepressant in the past, stopped on her own before . - [facility] [place], [place]; Future 4. Anxiety - [facility] [place], [place]; Future 5. Smoker 6. Abnormal genetic test during CF and SMA carrier (2021). Partner declined testing (cost & he states he is certain he is not a carrier) - [facility] with or without consult; Future 7. History of delivery, currently G2 SROM @ 35 wks - [facility] with or without consult; Future 8. History of thyroid disorder Pt is unsure of previous abnormality, states she was supposed to get her labs rechecked but didn't. - Thyroid profile includes TSH FT4; Future Dating US reviewed. FHR was 101, follow-up US today (report pending). FHR 160s per pt. Early 1 hr GTT: n/a Initiate 81 mg aspirin @ 12 wk GA: ordered (hx GHTN) Genetic and carrier screening discussed. Pt to make a nurse visit after 11 weeks if screening is desired. MFM referral placed due to hx PTB at 35 wks Early warning signs reviewed Discussed MD/LEIGH ANN/AUTOMOBILE SERVICE STATION MECHANIC collaboration GC/CT next visit RTO 4 weeks ADELE Tabor 02/11/24 1517 documented in this encounter [facility] 01-18-2024 History of Present illness Narrative BWD-LTM-12-23. Unplanned. Vapes daily-refused to stop, THC use. Hx of delivery at 35 weeks with last . Pt is + carrier for CF and SMA. Pt had HX of Gestational HTN-baseline labs ordered. Telephone OB intake only. Patient not seen by provider. ADELE Corona 01/18/24 1138 documented in this encounter [facility] 01-11-2024 Note Education Materials Obstetrics and Gynecology Bacterial Vaginosis Take the antibiotic as prescribed. Follow-up with your CEMENT STORAGE WORKER to review this emergency department visit. Return to the emergency department for any worsening symptoms. Bacterial vaginosis is an infection of the vagina. It happens when too many normal germs (healthy bacteria) grow in the vagina. This infection can make it easier to get other infections from sex (STIs). It is very important for women to get treated. This infection can cause babies to be born early or at a low weight. What are the causes? This infection is caused by an increase in certain germs that grow in the vagina. You cannot get this infection from toilet seats, bedsheets, swimming pools, or things that touch your vagina. What increases the risk? ? Having sex with a new person or more than one person. ? Having sex without protection. ? Douching. ? Having an intrauterine device (IUD). ? Smoking. ? Using drugs or drinking alcohol. These can lead you to do things that are risky. ? Taking certain antibiotic medicines. ? Being . What are the signs or symptoms? Some women have no symptoms. Symptoms may include: ? A discharge from your vagina. It may be ocampo or white. It can be watery or foamy. ? A fishy smell. This can happen after sex or during your menstrual period. ? Itching in and around your vagina. ? A feeling of burning or pain when you pee (urinate). How is this treated? This infection is treated with antibiotic medicines. These may be given to you as: ? A pill. ? A cream for your vagina. ? A medicine that you put into your vagina (suppository). If the infection comes back after treatment, you may need more antibiotics. Follow these instructions at home: Medicines ? Take cuhr-vfn-gpzhytm and prescription medicines as told by your doctor. ? Take or use your antibiotic medicine as told by your doctor. Do not stop taking or using it, even if you start to feel better. General instructions ? If the person you have sex with is a woman, tell her that you have this infection. She will need to follow up with her doctor. If you have a male partner, he does not need to be treated. ? Do not have sex until you finish treatment. ? Drink enough fluid to keep your pee pale yellow. ? Keep your vagina and butt clean. ? Wash the area with warm water each day. ? Wipe from front to back after you use the toilet. ? If you are a baby, ask your doctor if you should keep doing so during treatment. ? Keep all follow-up visits. How is this prevented? Self-care ? Do not douche. ? Use only warm water to wash around your vagina. ? Wear underwear that is cotton or lined with cotton. ? Do not wear tight pants and pantyhose, especially in the summer. Safe sex ? Use protection when you have sex. This includes: ? Use condoms. ? Use dental dams. This is a thin layer that protects the mouth during oral sex. ? Limit how many people you have sex with. To prevent this infection, it is best to have sex with just one person. ? Get tested for STIs. The person you have sex with should also get tested. Drugs and alcohol ? Do not smoke or use any products that contain nicotine or tobacco. If you need help quitting, ask your doctor. ? Do not use drugs. ? Do not drink alcohol if: ? Your doctor tells you not to drink. ? You are , may be , or are planning to become . ? If you drink alcohol: ? Limit how much you have to 0?1 drink a day. ? Know how much alcohol is in your drink. In the [place] one drink equals one 12 oz bottle of beer (355 mL), one 5 oz glass of wine (148 mL), or one 1? oz glass of hard liquor (44 mL). Where to find more information ? Centers for Disease Control and Prevention: www.cdc.gov ? [place] [employer]: www.ashastd.org ? Office on Women's Health: www.womenshealth.gov Contact a doctor if: ? Your symptoms do not get better, even after you are treated. ? You have more discharge or pain when you pee. ? You have a fever or chills. ? You have pain in your belly (abdomen) or in the area between your hips. ? You have pain with sex. ? You bleed from your vagina between menstrual periods. Summary ? This infection can happen when too many germs (bacteria) grow in the vagina. ? This infection can make it easier to get infections from sex (STIs). Treating this can lower that chance. ? Get treated if you are . This infection can cause babies to be born early. ? Do not stop taking or using your antibiotic medicine, even if you start to feel better. This information is not intended to replace advice given to you by your health care provider. Make sure you discuss any questions you have with your health care provider. Document Revised: 07/25/2020 Document Reviewed: 07/25/2020 [employer] Patient Education ? 2023 [facility]-03-[facility]23 History of Present illness Narrative Reason for Appointment: Patient ID: Hawk King is a 22 y.o. female who presents for Discuss medication Patient presents today for Acute Visit. and Post Follow Up appointment. MEDICATIONS No current outpatient medications ALLERGIES No Known Allergies PROBLEMS Active Ambulatory Problems Diagnosis Date Noted Missed menses 07/02/2022 Resolved Ambulatory Problems Diagnosis Date Noted No Resolved Ambulatory Problems Past Medical History: Diagnosis Date Carrier of spinal muscular atrophy Current every day smoker Heartburn History of miscarriage, currently HISTORY PAST MEDICAL HISTORY SOCIAL HISTORY Past Medical History: Diagnosis Date Carrier of spinal muscular atrophy Current every day smoker Heartburn History of miscarriage, currently Social History Tobacco Use Smoking status: Every Day Types: Cigarettes Smokeless tobacco: Not on file Tobacco comments: <1PPPD Substance Use Topics Alcohol use: Yes Comment: heavy alcohol use Drug use: Never FAMILY HISTORY Family History Problem Relation Name Age of Onset Asthma Mother Diabetes Maternal Grandmother Heart disease Maternal Grandmother Cancer Paternal Grandmother SURGICAL HISTORY Past Surgical History: Procedure Laterality Date WISDOM TOOTH EXTRACTION wisdom teeth REVIEW OF SYSTEMS Review of Systems: Review of Systems Constitutional: Negative. HENT: Negative. Eyes: Negative. Respiratory: Negative. Cardiovascular: Negative. Gastrointestinal: Negative. Genitourinary: Negative. Musculoskeletal: Negative. Skin: Negative. Neurological: Negative. Psychiatric/Behavioral: Positive for agitation and behavioral problems. The patient is nervous/anxious. All other systems reviewed and are negative. Hematological: Negative. Endocrine: Negative. Allergic/Immunologic: Negative. OBJECTIVE Objective: Physical Exam Constitutional: Appearance: Normal appearance. She is well-developed. Cardiovascular: Rate and Rhythm: Normal rate and regular rhythm. Pulmonary: Effort: Pulmonary effort is normal. Breath sounds: Normal breath sounds. Abdominal: General: Bowel sounds are normal. There is no distension. Palpations: Abdomen is soft. Tenderness: There is no abdominal tenderness. There is no guarding or rebound. Musculoskeletal: General: No swelling. Normal range of motion. Right lower leg: No edema. Left lower leg: No edema. Neurological: Mental Status: She is alert and oriented to person, place, and time. Skin: General: Skin is warm and dry. Psychiatric: Mood and Affect: Mood normal. Behavior: Behavior normal. Vitals and nursing note reviewed. Exam conducted with a motor coach tour operator present. Vitals: Estimated body mass index is 25.51 kg/m as calculated from the following: Height as of 03/12/22: 5' 3 . Weight as of 03/09/23: 144 lb. BP: No LMP recorded. ASSESSMENT & PLAN ICD-10-CM 1. Follow-up encounter involving medication Z79.899 2. depression (CMS/HCC) F53.0 Pt presents with depression- pt denies suicidal and homicidal ideations. Pt is bipolar and not on any meds. Pt to start Wellbutrin and see Dr Munoz for management of bipolar depression. Pt given labs to have obtained. Pt to return for annual. Documented by Jing Moncada LPN on behalf of: Eusebio Lam DO documented in this encounter [facility] 03-09-2023 History of Present illness Narrative Reason for Appointment: Patient ID: Hawk King is a 22 y.o. female who presents for Care and Contraception Patient presents today for Post Follow Up appointment. Current Medications: has a current medication list which includes the following prescription(s): citalopram and norethindrone. Medical History: Active Ambulatory Problems Diagnosis Date Noted Missed menses 07/02/2022 Resolved Ambulatory Problems Diagnosis Date Noted No Resolved Ambulatory Problems Past Medical History: Diagnosis Date Carrier of spinal muscular atrophy Current every day smoker Heartburn History of miscarriage, currently Family History Problem Relation Name Age of Onset Asthma Mother Diabetes Maternal Grandmother Heart disease Maternal Grandmother Cancer Paternal Grandmother Social History Tobacco Use Smoking status: Every Day Types: Cigarettes Smokeless tobacco: Not on file Tobacco comments: <1PPPD Substance Use Topics Alcohol use: Yes Comment: heavy alcohol use Drug use: Never Past Surgical History: Procedure Laterality Date WISDOM TOOTH EXTRACTION wisdom teeth No Known Allergies Review of Systems: Review of Systems Constitutional: Negative. HENT: Negative. Eyes: Negative. Respiratory: Negative. Cardiovascular: Negative. Gastrointestinal: Negative. Genitourinary: Negative. Musculoskeletal: Negative. Skin: Negative. Neurological: Negative. All other systems reviewed and are negative. Hematological: Negative. Endocrine: Negative. Allergic/Immunologic: Negative. Objective Physical Exam Constitutional: Appearance: Normal appearance. She is well-developed. Cardiovascular: Rate and Rhythm: Normal rate and regular rhythm. Pulmonary: Effort: Pulmonary effort is normal. Breath sounds: Normal breath sounds. Abdominal: General: Bowel sounds are normal. There is no distension. Palpations: Abdomen is soft. Tenderness: There is no abdominal tenderness. There is no guarding or rebound. Musculoskeletal: General: No swelling. Normal range of motion. Right lower leg: No edema. Left lower leg: No edema. Neurological: Mental Status: She is alert and oriented to person, place, and time. Skin: General: Skin is warm and dry. Psychiatric: Mood and Affect: Mood normal. Behavior: Behavior normal. Vitals and nursing note reviewed. Exam conducted with a motor coach tour operator present. Vitals: Estimated body mass index is 25.51 kg/m as calculated from the following: Height as of 23: 5' 3 . Weight as of this encounter: 144 lb. BP: 120/72 No LMP recorded (lmp unknown). Assessment/Plan Encounter Diagnoses Name Primary? 6 weeks follow-up control counseling Patient is doing well but has complaints of .... Patient presents today for 6 week visit. Patient is s/p Vaginal delivery. Patient states depression but denies suicidal and homicidal ideations. All options were discussed with the patient regarding control and patient desires none at this time. Follow Up: Patient is to return for annual unless needed otherwise. Documented by Eusebio Lam DO on behalf of: Eusebio Lam DO documented in this encounter [facility] note Diagnosis 6 weeks follow-up control counseling documented [facility]* Diagnosis First trimester - Primary state, incidental [facility] Diagnosis Follow-up encounter involving medication depression ([facility]) Mental disorders of mother, complicating , childbirth, or the puerperium, unspecified as to episode of care Weight loss Loss of weight [facility] this [facility]* Diagnosis 8 weeks gestation of - Primary History of gestational hypertension Depressive disorder Depressive disorder, not elsewhere classified Anxiety Anxiety state, unspecified Smoker Tobacco use disorder Abnormal genetic test during History of delivery, currently with history of pre-term labor History of thyroid disorder documented in this encounter [facility] SystemInstructionsNot on filedocumented in this encounter [facility] SystemInstructionsNot on filedocumented in this encounter [facility] Summary Purpose Family History No Family History Records FoundNo Family History Records FoundNo Family History Records FoundNo Family History Records FoundNo Family History Records FoundNo Family History Records FoundNo Family History Records FoundNo Family History Records Found Advance Directives Documents on File Type Date Recorded Patient [employer] Expl anation Advance Directives and Living Will Power of Commercial Pest Control Representative Discharge Instructions * Instructions* Victorino Sullivan MD - 06/01/2019 PLEASE RETURN TO THE EMERGENCY DEPARTMENT IMMEDIATELY if your symptoms worsen in anyway or in 1-2 days if not improved for re-evaluation. You should immediately return to the ER for symptoms such as new or worsening pain, fever, numbness or weakness to the arms or legs, coolness or color change of the arms or legs. Take your medication as indicated and prescribed. If you are given an antibiotic then, make sure you get the prescription filled and take the antibiotics until finished. Please understand that at this time there is no evidence for a more serious underlying process, butthat early in the process of an illness or injury, an emergency department workup can be falsely reassuring. You should contact your family doctor within the next 48 hours for a follow up appointmentas X-rays may not show an occult fracture for several days THANK YOU!!! From [facility] and [facility] On behalf of the Emergency Department staff at [facility], I would like to thank you for giving us the opportunity to address your health care needs and concerns. We hope that during your visit, our service was delivered in a professional and caring manner. Please keep [facility] in mind as we walk with you down the path to your own personal wellness. Please expect an automated text message or email from us so we can ask a few questions about your health and progress. Based on your answers, a clinician may call you back to offer help and instructions. Please understand that early in the process of an illness or injury, an emergency department workupcan be falsely reassuring. If you notice any worsening, changing or persistent symptoms please callyour family doctor or return to the ER immediately. Tell us how we did during your visit at [email or web address] and let us know about your experience * Attachments The following attachments cannot be sent through Care Everywhere. * Ankle Sprain (Russian) documented in this encounter* Attachments The following attachments cannot be sent through Care Everywhere. * Ankle Sprain (Russian) documented in this encounter* Instructions* Ann-Marie Engle DO - 01/07/2019 Please take all medications as prescribed. Please follow up with your primary care physician (PCP) by calling tomorrow for the next available appointment. If you do not have a PCP please establish care by calling the clinic or a physician listed below. Please return to emergency department sooner if you develop any worsening symptoms, uncontrolled fevers, uncontrolled vomiting, or any other concerns. * Attachments The following attachments cannot be sent through Care Everywhere. * Dyspepsia (Russian) * Chest Pain (Russian) documented in this encounter* Attachments The following attachments cannot be sent through Care Everywhere. * Amenorrhea: Secondary (Russian) documented in this encounter Assessments Diagnosis Sprain of right ankle, unspecified ligament, initial encounter Contusion of back wall of thorax, unspecified laterality, initial encounter Diagnosis Amenorrhea Absence of menstruation Diagnosis Sprain of right ankle, unspecified ligament, initial encounter Diagnosis Dyspepsia- Primary Dyspepsia and other specified disorders of function of stomach Atypical chest pain Other chest pain Diagnosis examination or test, negative result- Primary Additional Source Comments INFORMATION SOURCE (unrecogn ized section and content) DATE CREATED AUTHOR 03/12/2019 [facility] DATE CREATED AUTHOR AUTHOR'S ORGANIZ ATION 06/01/2019 [facility] DATE CREATED AUTHOR AUTHOR'S ORGANIZ ATION 07/17/2022 [facility] DATE CREATED AUTHOR AUTHOR'S ORGANIZ ATION 03/10/2023 [facility] DATE CREATED AUTHOR AUTHOR'S ORGANIZ ATION 01/06/2024 [place] DATE CREATED AUTHOR AUTHOR'S ORGANIZ ATION 01/13/2024 [facility] DATE CREATED AUTHOR AUTHOR'S ORGANIZ ATION 01/21/2024 [facility] DATE CREATED AUTHOR AUTHOR'S ORGANIZ ATION 01/29/2024 [facility] Reason for Visit (unrecogniz ed section and content) Reason Comments Ankle Pain Reason Comments Ankle Pain patient sts she twis larissa her ankle in the shower and fell, denies LOC at this time, right ankle Reason Comments Chest Pain Shaking bilateral hands Abdominal Cramping Reason Comments Test Reason Comments Care Contraception Reason Comments Initial Visit OBI Reason Comments Discuss medication Reason Comments Initial Visit Care Teams (unrecognized sec tion and content) Auto Fleet Maintenance Manager Relationship Specialty Start Date End Date Ann-Marie Ash MD [address] [place] [id number] PCP - General Family Medicine 07/03/22 Auto Fleet Maintenance Manager Relationship Specialty Start Date End Date Ann-Marie Ash MD [address] [place] [id number] PCP - General Family Medicine 06/09/18 Auto Fleet Maintenance Manager Relationship Specialty Start Date End Date Ann-Marie Ash MD [address] [place] [id number] PCP - General Family Medicine 07/03/22 Auto Fleet Maintenance Manager Relationship Specialty Start Date End Date Ann-Marie Ash MD [address] [place] [id number] PCP - General Family Medicine 07/03/22 Auto Fleet Maintenance Manager Relationship Specialty Start Date End Date Ann-Marie Ash MD [address] [place] [id number] PCP - General Family Medicine 07/03/22 Auto Fleet Maintenance Manager Relationship Specialty Start Date End Date Ann-Marie Ash MD [address] [place] [phone] PCP - General Family Medicine 06/09/18 FOR RECORDS PERTAINING TO PATIENTS WHO ARE OR HAVE BEEN ENROLLED IN A CHEMICAL DEPENDENCY/SUBSTANCEABUSE PROGRAM, SOME INFORMATION MAY BE OMITTED. This clinical summary was aggregated from multiple sources. Caution should be exercised in using it in the provision of clinical care. This summary normalizes information from multiple sources, and as a consequence, information in this document may materially change the coding, format and clinical context of patient data. In addition, data may be omitted in some cases. CLINICAL DECISIONS SHOULD BE BASED ON THE PRIMARY CLINICAL RECORDS. [facility], [facility]. provides no warranty or guarantee of the accuracy or completeness of information in this document.
[2024-02-18 10:54] LABS: BOX Test Reference Lab UNITY; BOX Test Sent Out UNITY
== END 2024-02-18 10:20 | disposition home or self-care (01) ==
LOC: LAB 10:21
PROVIDERS: Visit Provider Obstetrics & Gynecology
DX: Z36.0 Encounter for antenatal screening for chromosomal anomalies (principal)
CPT/HCPCS: 36415

== ENCOUNTER 2024-02-29 11:51 | Outpatient (OUT) | payer MEDICAID, SELFPAY ==
[2024-02-29 12:28] LABS: BOX Test Reference Lab UNITY; BOX Test Sent Out UNITY
== END 2024-02-29 11:52 | disposition home or self-care (01) ==
LOC: LAB 11:53
PROVIDERS: Visit Provider Obstetrics & Gynecology
DX: Z36.0 Encounter for antenatal screening for chromosomal anomalies (principal)
CPT/HCPCS: 36415

== ENCOUNTER 2024-05-16 14:48 | Outpatient (REF) | payer MEDICAID, SELFPAY | END 2024-05-16 14:49 | disposition home or self-care (01) | LOC: LAB 14:48 | PROVIDERS: Visit Provider Obstetrics & Gynecology | DX: Z01.419 Encounter for gynecological examination (general) (routine) without abnormal findings (principal) | CPT/HCPCS: 88175 ==

== ENCOUNTER 2024-07-26 12:02 | Outpatient (OUT) | payer MEDICAID, SELFPAY ==
[2024-07-26 13:13] LABS: Basophils Percent Auto 0.3 % (0.2-2.0); Eosinophils Absolute Auto 0.1 10^3/uL (0.0-0.7); Eosinophils Percent Auto 1.4 % (0.9-7.0); Hematocrit 34.6 % (36.0-48.0); Hemoglobin 11.6 g/dL (12.0-16.0); Immature Granulocytes Abs Auto 0.03 10^3/uL (0.00-0.03); Immature Granulocytes Pct Auto 0.3 % (0.0-0.5); Lymphocytes Absolute Auto 2.6 10^3/uL (1.2-3.8); Mean Corpuscular HGB Conc 33.5 g/dL (29.9-35.2); Mean Corpuscular Hemoglobin 31.8 pg (26.7-34.0); Mean Corpuscular Volume 94.8 fL (81.0-99.0); Mean Platelet Volume 10.9 fL (9.5-13.5); Monocytes Percent Auto 9.5 % (1.7-12.0); Neutrophils Absolute Auto 6.6 10^3/uL (1.4-6.5); Neutrophils Percent Auto 63.5 % (43.0-75.0); Platelet Count 308 10^3/uL (150-450); Red Blood Count 3.65 10^6/uL (4.20-5.40); Red Cell Distribution Width 13.2 % (11.0-15.0); White Blood Count 10.4 10^3/uL (4.0-11.0)
[2024-07-26 13:15] LABS: Estimated Average Glucose 91 mg/dL; Glycohemoglobin A1C 4.8 % (4.5-6.2)
== END 2024-07-26 12:03 | disposition home or self-care (01) ==
PROVIDERS: Visit Provider Obstetrics & Gynecology
DX: Z34.93 Encounter for supervision of normal pregnancy, unspecified, third trimester (principal)
CPT/HCPCS: 36415; 83036; 85025

== ENCOUNTER 2024-08-02 19:08 | Outpatient (OUT) | payer MEDICAID, SELFPAY ==
[2024-08-02 19:24] VITALS: BP 101/65; PULSE 97
[2024-08-02 19:25] VITALS: BP 101/65; PULSE 97; TEMP 36.9
--- NOTE | 2024-08-02 20:18 | US_ITS ---
[facility] [place] [id number] Patient Name: JEMIMA RAOZ MRN: [id number] date: 2000 Sex: F Assigned Patient Location: [facility] Current Patient Location: Accession/Order Number: [id number] Exam Date: 08/03/2024 08:23 Report Date: 08/03/2024 08:32 At the request of: YURI REDDY DO Procedure: US OB BPP w non-stress CLINICAL INFORMATION: H/O LABOR O09.899 ULTRASOUND OB GROWTH COMPARISON: None There is a single live intrauterine gestation in cephalic presentation. There is cardiac and somatic activity. The heart rate [id number] beats per minute. The placenta is posterior. The amniotic fluid index measures 17.3 cm. This is in upper normal range. The following measurements were obtained: Biparietal diameter 8.5 cm 34 weeks 1 day 68% Head circumference 32.7 cm 37 weeks 1 day 95% Abdominal circumference 30.8 cm 34 weeks 5 days 88% Femur length 6.4 cm 33 weeks 1 day 36% The composite ultrasound age based on these measurements is 34 weeks 6 days +/- 2 weeks 3 days. The estimated date of delivery is 09/07/2024. Patient's prior estimated date of delivery was September 18, 2024. The estimated weight is 5 lbs. 6 oz. +/- 13 ounces (78%) US/US OB BPP w non-stress IMPRESSION: SINGLE LIVE INTRAUTERINE GESTATION WITH ULTRASOUND AGE OF 34 WEEKS 6 DAYS. THIS IS AT THE UPPER LIMITS OF EXPECTED GROWTH BASED ON PREVIOUS INFORMATION. BIOPHYSICAL PROFILE FINDINGS: TONE: 1 or more episodes of activity extension and flexion of extremity or opening and closing of the hand [Y] 2/2 GROSS BODY MOVEMENTS: 3 or more discrete body or limb movements [Y] 2/2 BREATHING MOVEMENTS: 1 or more episodes of breathing lasting at least 30 seconds [Y] 2/2 JACKELYN: A single deepest vertical pocket of amniotic fluid greater than 2 cm [Y] 2/2 JACKELYN: 17.7 cm Total score: 8/8 IMPRESSION: UNREMARKABLE BIOPHYSICAL PROFILES. Impression dictated by: Jing Hunt M.D. 08/03/2024 8:32 AM Dictation Location: [place] [address] Electronically authenticated by: [id number] Y Date: 08/03/2024 08:32
--- NOTE | 2024-08-02 20:19 | US_ITS ---
[facility] [place] [id number] Patient Name: JEMIMA RAZO MRN: [id number] date: 2000 Sex: F Assigned Patient Location: [facility] Current Patient Location: Accession/Order Number: [id number] Exam Date: 08/03/2024 08:23 Report Date: 08/03/2024 08:32 At the request of: YURI REDDY DO Procedure: US OB BPP w non-stress CLINICAL INFORMATION: H/O LABOR O09.899 ULTRASOUND OB GROWTH COMPARISON: None There is a single live intrauterine gestation in cephalic presentation. There is cardiac and somatic activity. The heart rate [id number] beats per minute. The placenta is posterior. The amniotic fluid index measures 17.3 cm. This is in upper normal range. The following measurements were obtained: Biparietal diameter 8.5 cm 34 weeks 1 day 68% Head circumference 32.7 cm 37 weeks 1 day 95% Abdominal circumference 30.8 cm 34 weeks 5 days 88% Femur length 6.4 cm 33 weeks 1 day 36% The composite ultrasound age based on these measurements is 34 weeks 6 days +/- 2 weeks 3 days. The estimated date of delivery is 09/07/2024. Patient's prior estimated date of delivery was September 18, 2024. The estimated weight is 5 lbs. 6 oz. +/- 13 ounces (78%) US/US OB growth IMPRESSION: SINGLE LIVE INTRAUTERINE GESTATION WITH ULTRASOUND AGE OF 34 WEEKS 6 DAYS. THIS IS AT THE UPPER LIMITS OF EXPECTED GROWTH BASED ON PREVIOUS INFORMATION. BIOPHYSICAL PROFILE FINDINGS: TONE: 1 or more episodes of activity extension and flexion of extremity or opening and closing of the hand [Y] 2/2 GROSS BODY MOVEMENTS: 3 or more discrete body or limb movements [Y] 2/2 BREATHING MOVEMENTS: 1 or more episodes of breathing lasting at least 30 seconds [Y] 2/2 JACKELYN: A single deepest vertical pocket of amniotic fluid greater than 2 cm [Y] 2/2 JACKELYN: 17.7 cm Total score: 8/8 IMPRESSION: UNREMARKABLE BIOPHYSICAL PROFILES. Impression dictated by: Jing Hunt M.D. 08/03/2024 8:32 AM Dictation Location: [place] Electronically authenticated by: [id number] Y Date: 08/03/2024 08:32
== END 2024-08-02 21:05 | disposition home or self-care (01) ==
LOC: US 19:09 → FBC 19:18
PROVIDERS: Visit Provider Obstetrics & Gynecology
DX: O09.893 Supervision of other high risk pregnancies, third trimester (principal); Z3A.34 34 weeks gestation of pregnancy
CPT/HCPCS: 76816; 76818

== ENCOUNTER 2024-08-05 12:57 | Outpatient (OUT) | payer MEDICAID, SELFPAY ==
--- OUTSIDE RECORDS SUMMARY | 2023-11-15 13:15 | XMS_ITS ---
Author Organization [facility] vices Address [address] [place] [id number] Care Team Providers Care Gamb Cutter Name Role Phone Chris Rodriguez Unavailable [phone] REASON FOR VISIT (CONTRACTING ANALYST) Initial Evaluation- Bipolar, Anxiety, and Depression Social History Sex Assigned At : Social History Observation Description Sex Assigned At Female Encounters Encounter Location Date Provider Diagnosis Main [address] [place] [id number] 11/15/2023 Chris Rodriguez Plan Of Treatment No Information Progress Notes * Jeremy KINGEmilyOB:2000 (23 yo F)Acc No.[id number]:11/15/2023 Patient: Hawk CHAMPION Provider: NORMAN Gonzalez :2000 A ge:22 Y S ex:Female Date:11/15/2023 Address:[address], [id number] Subjective: * Chief Complaints: * 1 . (CONTRACTING ANALYST) Initial Evaluation- Bipolar, Anxiety, and Depression. * Medical History: Objective: * Vitals: Assessment: Plan: * Treatment: Care Plan: * Problems: * Billing Information: * Visit Code: * Procedure Codes: Care Plan Details* * Electronic signature of NORMAN Escobedo on 08/05/2024 at 01:00 PM EDT Sign off status: Pending * Provider: NORMAN Gonzalez Date: 1 Generated for Nikunj zheng/Peace/eTransmitting on: 0 08/05/2024 01:00 PM EDT
--- OUTSIDE RECORDS SUMMARY | 2024-07-26 11:10 | XMS_ITS | Encounter Summary ---
Author Organization [facility] Address [address] [place] [address] Care Team Providers Care Psychological Stress Evaluator Name Role Phone Orlando Ash MD Primary Care Provider [phone] Reason for Visit * Reason Comments Routine Visit Encounter Details Date Type Department Care Team (Late st Contact Info) Description 07/26/2024 11:10 AM EDT Routine [facility] [address] [place] [phone] Eusebio Lam, DO [address] [place] [address] Third trimester ([facility]); 31 weeks gestation of ([facility]) Social History Tobacco Use Types Packs/Day Years Used Date Smoking Tobacco: Every Day Cigarettes Comments:<1PPPD Alcohol Use Standard Drinks/Week Comments Yes 0 (1 standard drink = 0.6 oz pur e alcohol) heavy alcohol use Estimated Date of Delivery Comme nts Yes 09/21/2024 Based on Ultraso und Sex and Gender Information Value Date Recorded Sex Assigned at Not on file Legal Sex Female 6:44 PM EDT Gender Identity Not on file Sexual Orientation Not on file documented as of this encounter Last Filed Vital Signs Vital Sign Reading Time Taken Comments Blood Pressure 102/62 07/26/2024 11:21 AM EDT Pulse - - Temperature - - Respiratory Rate - - Oxygen Saturation - - Inhaled Oxygen Concentration - - Weight 73.3 kg (161 lb 8 oz) 07/26/2024 11:21 AM EDT Height - - Body Mass Index 28.61 03/12/2022 12:00 PM EST documented in this encounter Progress Notes * Megan Diego, INTERIOR SPECIALIST - 07/26/2024 11:10 AM EDT Reason for Appointment: Patient ID: Hawk King is a 23 y.o. female who presents for Routine Visit Patient presents today for Return OB appointment. MEDICATIONS Current Outpatient Medications Medication Instructions MV-Min-Fe Fum-FA-DHA ( 1 PO) 1 each, Daily ALLERGIES No Known Allergies PROBLEMS Active Ambulatory Problems Diagnosis Date Noted Missed menses 07/02/2022 Resolved Ambulatory Problems Diagnosis Date Noted No Resolved Ambulatory Problems Past Medical History: Diagnosis Date Carrier of spinal muscular atrophy Current every day smoker Heartburn History of miscarriage, currently ([facility]) HISTORY PAST MEDICAL HISTORY SOCIAL HISTORY Past Medical History: Diagnosis Date Carrier of spinal muscular atrophy Current every day smoker Heartburn History of miscarriage, currently ([facility]) Social History Tobacco Use Smoking status: Every [...] nursing note reviewed. Exam conducted with a dope firer present. Vitals: Estimated body mass index is 28.61 kg/m?? as calculated from the following: Height as of 03/12/22: 5' 3 . Weight as of this encounter: 161 lb 8 oz. BP: 102/62 No LMP recorded. Patient is . ASSESSMENT & PLAN ICD-10-CM 1. Third trimester ([facility]) Z34.93 POCT urinalysis dipstick manually resulted 2. 31 weeks gestation of ([facility]) Z3A.31 Return OB: Patient presents today for a routine obstetrics appointment. Patient is currently 31w6d . Patient states she is doing well but has complaints of being tired due to current . Patient has verbalizes frequent movement. labor precautions was discussed/given and patient was instructed to perform kick counts three times a day. Orders Placed This Encounter Procedures POCT urinalysis dipstick manually resulted Follow Up: Patient is to return to office in 2 week for routine OB appointment. Documented by Megan Diego NP on behalf of: Eusebio Lam DO documented in this encounter Plan of Treatment Upcoming Encounters Date Type Department Care Team (Late st Contact Info) Description 08/09/2024 8:30 AM EDT Routine [facility] [address] [place] [address] Megan Diego NP [address] [place] [address] documented as of this encounter Procedures Procedure Name Priority Date/Time Associated Diagnosis Comments POCT URINALYSIS DIPSTICK Routine 07/26/2024 11:35 AM EDT Third trimester ([facility]) documented in this encounter Results * (ABNORMAL) POCT urinalysis dipstick manually resulted (07/26/2024 11:35 AM EDT) Color, UA Yellow Clarity, UA Clear Glucose, UA Negative Negative - 1999(110) ++++ mg/dL Bilirubin, UA Negative Negative - 4(70) +++ mg/dL Ketones, UA Negative Negative - 160(16) ++++ mg/dL Spec Grav, UA 1.020 1 - 1.03 Blood, UA Negative Negative - 50 Jian/mcL pH, UA 1.0 5 - 9 Protein, UA Positive Negative - 1999(20) ++++ mg/dL Comment:30mg/dL Urobilinogen, UA 2.0 0.2 - 12 mg/dL Leukocytes, UA Positive Negative - 500+++ Heriberto/mcL Comment:small Nitrite, UA Negative Negative - Positive Urine 07/26/2024 11:3 5 AM EDT Radha GARCIA POINT OF CARE TEST ENTER/EDIT OR DERABLES Final Result documented in this encounter Visit Diagnoses Diagnosis Third trimester ([facility]) state, incidental 31 weeks gestation of ([facility]) documented in this encounter Care Teams Psychological Stress Evaluator Relationship Specialty Start Date End Date Orlando Ash MD [address] [place] [address] PCP - General Family Medicine 07/03/22 documented as of this encounter
--- OUTSIDE RECORDS SUMMARY | 2024-08-05 13:00 | XMS_ITS | Encounter Summary ---
Author Organization [facility] Address [address] [facility] [place] [address] Care Team Providers Care Sock Folder Name Role Phone Janee Del Valle MD Unavailable Orlando Ash MD Primary Care Provider [phone] Encounter Details Date Type Department Care Team (Late st Contact Info) Description 07/20/2022 Abstract [facility] [address] [address] Eusebio Lam, [address] [place], [place] [phone] Social History Tobacco Use Types Packs/Day Years Used Date Smoking Tobacco: Never Assessed Comments Yes Sex and Gender Information Value Date Recorded Sex Assigned at Not on file Legal Sex Female 6:44 PM EDT Gender Identity Not on file Sexual Orientation Not on file documented as of this encounter Plan of Treatment Upcoming Encounters Date Type Department Care Team (Late st Contact Info) Description 08/09/2024 8:30 AM EDT Routine [facility] [address] [facility] [place] [address] Megan Diego NP [address] [place] [address] documented as of this encounter Visit Diagnoses Not on filedocumented in this encounter Care Teams Sock Folder Relationship Specialty Start Date End Date Janee Del Valle MD [address] [place] [address] PCP - [place] [employer] 03/11/22 Orlando Ash MD [address] [place], [place] [phone] PCP - General Family Medicine 07/03/22 documented as of this encounter
--- OUTSIDE RECORDS SUMMARY | 2024-08-05 13:00 | XMS_ITS | Encounter Summary ---
Author Organization [facility] Address [address] [place] [address] Care Team Providers Care Executive Admin Name Role Phone Orlando Ash MD Primary Care Provider [phone] Encounter Details Date Type Department Care Team (Late Contact Info) Description 08/03/2024 Clinisync Result Encounter [facility] External Department Unsolicited Yuri Lam DO [address] [facility] [address] [place] [id number] Social History Tobacco Use Types Packs/Day Years [...] AM EDT Routine [facility] [address] [place] [address] Megan Diego, ANI [address] [place] [phone] documented as of this encounter Procedures Procedure Name Priority Date/Time Associated Diagnosis Comments US OB GROWTH 08/03/2024 8:32 AM EDT documented in this encounter Results * US OB GROWTH (08/03/2024 8:32 AM EDT) Anatomical Region Laterality Modality Other 08/03/2024 8:32 AM EDT Narrative 08/03/2024 8:35 [place] [address] Ultrasound Report Signed Patient: HAWK KING MR#: [id number] : 2000 Acct:[id number] Age/Sex: 23 / F ADM Date: 08/02/24 Loc: US Attending Dr: Yuri Lam D.O. Ordering Physician: Yuri Lam D.O. Date of Service: 08/02/24 Procedure(s): US OB growth Accession Number(s): [id number] cc: Yuri Lam D.O.; Physician,Non-Staff M.DTaylor [place] [id number] Patient Name: HAWK KING MRN: [id number] date: 2000 Sex: F Assigned Patient Location: [facility] Current Patient Location: Accession/Order Number: [id number] Exam Date: 08/03/2024 08:23 Report Date: 08/03/2024 08:32 At the request of: YURI LAM DO Procedure: US OB BPP w non-stress CLINICAL INFORMATION: H/O LABOR O09.899 ULTRASOUND OB GROWTH COMPARISON: None There is a single live intrauterine gestation in cephalic presentation. There is cardiac and somatic activity. The heart rate [id number] beats per minute. The placenta is posterior. The amniotic fluid index measures 17.3 cm. This is in upper normal range. The following measurements were obtained: Biparietal diameter 8.5 cm 34 weeks 1 day 68% Head circumference 32.7 cm 37 weeks 1 day 95% Abdominal circumference 30.8 cm 34 weeks 5 days 88% Femur length 6.4 cm 33 weeks 1 day 36% The composite ultrasound age based on these measurements is 34 weeks 6 days +/- 2 weeks 3 days. The estimated date of delivery is 09/07/2024. Patient's prior estimated date of delivery was September 18, 2024. The estimated weight is 5 lbs. 6 oz. +/- 13 ounces (78%) US/US OB growth IMPRESSION: SINGLE LIVE INTRAUTERINE GESTATION WITH ULTRASOUND AGE OF 34 WEEKS 6 DAYS. THIS IS AT THE UPPER LIMITS OF EXPECTED GROWTH BASED ON PREVIOUS INFORMATION. BIOPHYSICAL PROFILE FINDINGS: TONE: 1 or more episodes of activity extension and flexion of extremity or opening and closing of the hand [Y] 2/2 GROSS BODY MOVEMENTS: 3 or more discrete body or limb movements [Y] 2/2 BREATHING MOVEMENTS: 1 or more episodes of breathing lasting at least 30 seconds [Y] 2/2 JACKELYN: A single deepest vertical pocket of amniotic fluid greater than 2 cm [Y] 2/2 JACKELYN: 17.7 cm Total score: 8/8 IMPRESSION: UNREMARKABLE BIOPHYSICAL PROFILES. Impression dictated by: Jing Hunt M.D. 08/03/2024 8:32 AM Dictation Location: [place] [address] Electronically authenticated by: [id number] Y Date: 08/03/2024 08:32 Dictated By: Jing Hunt M.D. Signed By: 08/03/24 0835 DD/ 0832 TD/TT: Rail Express Clerk: Procedure Note Radiology, Radiologist, MD - 08/03/2024 [place] [address] Ultrasound Report Signed Patient: HAWK KING CMR#: [id number] : 2000Acct:[id number] Age/Sex: 23 / FADM Date: 08/02/24 Loc: US Attending Dr: Yuri Lam D.O. Ordering Physician: Yuri Lam D.O. Date of Service: 08/02/24 Procedure(s): US OB growth Accession Number(s): [id number] cc: Yuri Lam D.O.; Physician,Non-Staff Sindy The [place] [id number] Patient Name: HAWK KING MRN: [id number] date: 2000 Sex: F Assigned Patient Location: [facility] Current Patient Location: Accession/Order Number: [id number] Exam Date: 08/03/2024 08:23 Report Date: 08/03/2024 08:32 At the request of: YURI LAM DO Procedure: US OB BPP w non-stress CLINICAL INFORMATION: H/O LABOR O09.899 ULTRASOUND OB GROWTH COMPARISON: None There is a single live intrauterine gestation in cephalic presentation.There is cardiac and somatic activity. The heart rate [id number] per minute. The placenta is posterior. The amniotic fluid index measures 17.3 cm. This is in upper normal range. The following measurements were obtained: Biparietal diameter 8.5 cm 34 weeks 1 day 68% Head circumference 32.7 cm 37 weeks 1 day 95% Abdominal circumference 30.8 cm 34 weeks 5 days 88% Femur length 6.4 cm 33 weeks 1 day 36% The composite ultrasound age based on these measurements is 34 weeks 6days +/- 2 weeks 3 days. The estimated date of delivery is 09/07/2024.Patient's prior estimated date of delivery was September 18, 2024. The estimated weight is 5 lbs. 6 oz. +/- 13 ounces (78%) US/US OB growth IMPRESSION: SINGLE LIVE INTRAUTERINE GESTATION WITH ULTRASOUND AGE OF 34 WEEKS 6 DAYS. THIS IS AT THE UPPER LIMITS OF EXPECTED GROWTH BASED ON PREVIOUSINFORMATION. BIOPHYSICAL PROFILE FINDINGS: TONE: 1 or more episodes of activity extension and flexion of extremity or opening and closing of the hand [Y] 2/2 GROSS BODY MOVEMENTS: 3 or more discrete body or limb movements [Y] 2/2 BREATHING MOVEMENTS: 1 or more episodes of breathing lastingat least 30 seconds [Y] 2/2 JACKELYN: A single deepest vertical pocket of amniotic fluid greater than 2 cm [Y] 2/2 JACKELYN: 17.7 cm Total score: 8/8 IMPRESSION: UNREMARKABLE BIOPHYSICAL PROFILES. Impression dictated by: Jing Hunt M.D. 08/03/2024 8:32 AM Dictation Location: [place] [address] Electronically authenticated by: [id number] Y Date: 508:32 Dictated By: Jing Hunt M.D. Signed By:08/03/2435 DD/ TD/TT: Rail Express Clerk: us Yuri Carole DO [facility] Final Result documented in this encounter Visit Diagnoses Not on filedocumented in this encounter Care Teams Executive Admin Relationship Specialty Start Date End Date Orlando Ash MD [address] [place] [address] PCP - General Family Medicine 07/03/22 documented as of this encounter
--- OUTSIDE RECORDS SUMMARY | 2024-08-05 13:00 | XMS_ITS | Encounter Summary ---
Author Organization [facility] Address [address] [place] [address] Care Team Providers Care Sales Assistant Institutional Sales Name Role Phone Orlando Ash MD Primary Care Provider [phone] Encounter Details Date Type Department Care Team (Late st Contact Info) Description 12/29/2022 Clinisync Result Encounter [facility] External Department Unsolicited Yuri Lam DO [address] [facility] [address] [place] [id number] Social History Tobacco Use Types Packs/Day Years Used Date Smoking Tobacco: Every Day Cigarettes Comments:<1PPPD Alcohol Use Standard Drinks/Week Comments Yes 0 (1 standard drink = 0.6 oz pur e alcohol) heavy alcohol use Comments Yes Sex and Gender Information Value Date Recorded Sex Assigned at Not on file Legal Sex Female 6:44 PM EDT Gender Identity Not on file Sexual Orientation Not on file documented as of this encounter Plan of Treatment Upcoming Encounters Date Type Department Care Team (Late st Contact Info) Description 08/09/2024 8:30 AM EDT Routine [facility] BCP OB [address] [place] [phone] Megan Diego, ANI [address] [place] [address] [place] [address] documented as of this encounter Procedures Procedure Name Priority Date/Time Associated Diagnosis Comments US OB PLACENTA 12/29/2022 2:24 PM EST documented in this encounter Results * US OB PLACENTA (12/29/2022 2:24 PM EST) Anatomical Region Laterality Modality Other 12/29/2022 2:24 PM EST Narrative 12/29/2022 2:24 PM EST [address] [address] Ultrasound Report Signed Patient: HAWK KING MR#: [id number] : 2000 Acct:[id number] Age/Sex: 22 / F ADM Date: Loc: [facility] 254-[address]: Yuri Lam D.O. Ordering Physician: Yuri Lam D.O. Date of Service: 12/29/22 Procedure(s): US OB placenta Accession Number(s): [id number] cc: Yuri Lam D.O.; Physician,Non-Staff M.Sigrid [address] [address] Patient Name: HAWK KING MRN: [id number] date: 2000 Sex: F Assigned Patient Location: [facility] Current Patient Location: [facility] Accession/Order Number: [id number] Exam Date: 12/29/2022 13:06 Report Date: 12/29/2022 14:24 At the request of: YURI LAM Procedure: US OB placenta PROCEDURE: US OB cervical length, US OB BPP w non-stress, US OB placenta, 12/29/2022 1:06 PM EST CLINICAL INDICATIONS: Encounter for third trimester , contractions for one day, transvaginal evaluation of cervix in , biophysical profile assessment. Sonographic assessment of the placenta. 4 para 2 AB 1, Expected HONEY 02/08/2023 Expected gestational age: 34 weeks 1 day COMPARISON: 09/29/2022 TECHNIQUE: Limited third trimester obstetric sonogram. Biophysical profile assessment. Transvaginal evaluation of cervix in . FINDINGS: Single living intrauterine identified, cephalic presentation. body, cardiac activity noted heart, heart rate 164 bpm. Amniotic fluid index 18.6 cm, 5-95th percentile, maximum vertical pocket 7.7 cm. Grade 1 anterior placenta, no sign of previa. Inferior margin 15 cm from the cervical os. Limited imaging suggest marginal placenta cord insertion upon the surface of the placenta, 1.6 cm from the margin of the placenta. Convincing placental hemorrhage is not evident. 4.0 cm transvaginal cervical length, closed. BIOPHYSICAL PROFILE ASSESSMENT: movement: 2/2 tone: 2/2 breathin/2 fluid: 2/2 Total biophysical profile score: 8/8 BIOMETRY: Not performed. ANATOMIC ASSESSMENT: Not performed. US/US OB placenta IMPRESSION: 1. Single living intrauterine , cephalic presentation. 2. Grade 1 anterior placenta without previa or hemorrhage. Provided images suggest a marginal placenta cord insertion, upon the surface of the placenta, 1.6 cm from the margin of the placenta. 3. 18.6 cm amniotic fluid index, 5-95th percentile, maximum vertical pocket 7.7 cm. 4. Normal biophysical profile assessment, total score 8/8 5. 4.0 cm transvaginal cervical length, closed Electronically authenticated by: NATASHA THAPA Date: 12/29/2022 14:24 Dictated By: Natasha Thapa M.D. Signed By: 12/29/22 1427 DD/ 1424 TD/TT: Acetone Button Paster: Procedure Note Radiology, Radiologist, MD - 12/29/2022 [place] [address] Ultrasound Report Signed Patient: HAWK KING CMR#: [id number] : 2000Acct:[id number] Age/Sex: M Date: Loc: [facility] 254-[address]: Yuri Lam D.O. Ordering Physician: Yuri Lam D.O. Date of Service: 12/29/22 Procedure(s): US OB placenta Accession Number(s): [id number] cc: Yuri Lam D.O.; Physician,Non-Staff Sindy The [place] [address] Patient Name: HAWK KING MRN: [id number] date: 2000 Sex: F Assigned Patient Location: [facility] Current Patient Location: [facility] Accession/Order Number: [id number] Exam Date: 12/29/2022 13:06 Report Date: 12/29/2022 14:24 At the request of: YURI LAM Procedure: US OB placenta PROCEDURE: US OB cervical length, US OB BPP w non-stress, US OB placenta, 12/29/2022 1:06 PM EST CLINICAL INDICATIONS: Encounter for third trimester ,contractions for one day, transvaginal evaluation of cervix in , biophysicalprofile assessment. Sonographic assessment of the placenta. 4 para 2 AB 1, Expected HONEY 02/08/2023 Expected gestational age: 34 weeks 1 day COMPARISON: 09/29/2022 TECHNIQUE: Limited third trimester obstetric sonogram. Biophysical profile assessment. Transvaginal evaluation of cervix in . FINDINGS: Single living intrauterine identified, cephalic presentation. body, cardiac activity noted heart, heart rate 164 bpm. Amniotic fluid index 18.6 cm, 5-95th percentile, maximum vertical pocket7.7 cm. Grade 1 anterior placenta, no sign of previa. Inferior margin 15 cm fromthe cervical os. Limited imaging suggest marginal placenta cord insertion uponthe surface of the placenta, 1.6 cm from the margin of the placenta.Convincing placental hemorrhage is not evident. 4.0 cm transvaginal cervical length, closed. BIOPHYSICAL PROFILE ASSESSMENT: movement: 2/2 tone: 2/2 breathin/2 fluid: 2/2 Total biophysical profile score: 8/8 BIOMETRY: Not performed. ANATOMIC ASSESSMENT: Not performed. US/US OB placenta IMPRESSION: 1. Single living intrauterine , cephalic presentation. 2. Grade 1 anterior placenta without previa or hemorrhage. Provided images suggest a marginal placenta cord insertion, upon the surface of theplacenta, 1.6 cm from the margin of the placenta. 3. 18.6 cm amniotic fluid index, 5-95th percentile, maximum verticalpocket 7.7 cm. 4. Normal biophysical profile assessment, total score 8/8 5. 4.0 cm transvaginal cervical length, closed Electronically authenticated by: NATASHA THAPA Date: 12/29/2022 14:24 Dictated By: Natasha Thapa M.D. Signed By:12/29/22 1427 DD/ 1424 TD/TT: Acetone Button Paster: us Yuri Carole DO [facility] Final Result documented in this encounter Visit Diagnoses Not on filedocumented in this encounter Care Teams Sales Assistant Institutional Sales Relationship Specialty Start Date End Date Orlando Ash MD [address] [place] [address] PCP - General Family Medicine 07/03/22 documented as of this encounter
--- OUTSIDE RECORDS SUMMARY | 2024-08-05 13:00 | XMS_ITS | Encounter Summary ---
Author Organization [facility] Address [address] [place] [address] Care Team Providers Care Radial Router Operator Name Role Phone Orlando Ash MD Primary Care Provider [phone] Encounter Details Date Type Department Care Team (Late st Contact Info) Description 07/26/2024 Bamboo flowsheet [facility] OB [address] [facility] [address] Eusebio Lam, DO [address] [facility] [address] [place], [place] [address] Social History Tobacco Use Types Packs/Day Years [...] Description 08/09/2024 8:30 AM EDT Routine [facility] OB [address] [facility] [address] Megan Diego, CLOTH STRETCHER [address] [facility] [place] [address] documented as of this encounter Visit Diagnoses Not on filedocumented in this encounter Care Teams Radial Router Operator Relationship Specialty Start Date End Date Orlando Ash MD [address] [place] [address] PCP - General Family Medicine 07/03/22 documented as of this encounter
--- OUTSIDE RECORDS SUMMARY | 2024-08-05 13:00 | XMS_ITS | Encounter Summary ---
Author Organization [employer] s [employer] Address [id number] [address] [place] [address] Care Team Providers Care Reconciliation Clerk Name Role Phone Orlando Ash MD Primary Care Provider [phone] Encounter Details Date Type Department Care Team (Late st Contact Info) Description 07/21/2021 Orders Only [facility] [address] [facility] [address] [place] [phone] Genny Mosquera, MARTY care in first trimester; Encounter for screening for other genetic defect Social History Tobacco Use Types Packs/Day Years Used Date Smoking Tobacco: Every Day Vaping/E-cigarettes Smokeless Tobacco: Never Alcohol Use Standard Drinks/Week Comments Not Currently 0 (1 standard drink = 0.6 oz pur e alcohol) occasional AUDIT-C Answer Date Recorded Frequency of Alcohol Consumption Never 04/26/2018 Average Number of Drinks Not on file 019 Frequency of Binge Drinking Not on file 04/08 Childcare Answer Date Recorded Childcare Unknown 07/11/2018 Employment Answer Date Recorded Employment Unknown 07/11/2018 Purpose - Life Answer Date Recorded Purpose and direction in life Unknown Comments Yes Sex and Gender Information Value Date Recorded Sex Assigned at Not on file Legal Sex Female 1:15 PM EST Gender Identity Not on file Sexual Orientation Not on file COVID-19 Exposure Response Date Recorded In the last month, have you been in contact with someone who was confirmed or suspected to have Coronavirus / COVID-19? No / Unsure 07/24/2021 3:08 PM EDT documented as of this encounter Plan of Treatment Not on file documented as of this encounter Procedures Procedure Name Priority Date/Time Associated Diagnosis Comments FREE CELL DNA (NON-[facility] SEND OUT) Routine 07/15/2021 care in first trimester Encounter for screening for other genetic defect documented in this encounter Results * Free Cell DNA (07/15/2021) 07/15/2021 Narrative MANUALLY TRANSCRIBED RESULTS - 07/21/2021 4:44 PM EDT SEE SCANNED REPORT. us Lima Gonzalez APRN-CNM LAB BLOOD ORDERABLES Fin al Result MANUALLY TRANSCRIBED RESULTS documented in this encounter Visit Diagnoses Diagnosis care in first trimester Encounter for screening for other genetic defect documented in this encounter Additional Health Concerns Infection Onset Date Last Indicated Resolved Time COVID-19 Rule-Out 03/22/2023 03/22/2023 03/22/2023 2:37 PM EST documented as of this encounter Care Teams Reconciliation Clerk Relationship Specialty Start Date End Date Orlando Ash MD [address] [place] [address] PCP - General Family Medicine 06/09/18 documented as of this encounter
--- OUTSIDE RECORDS SUMMARY | 2024-08-05 13:00 | XMS_ITS | Encounter Summary ---
Author Organization [facility] Address [address] [place] [address] Care Team Providers Care Repairer Auto Clocks Name Role Phone Janee Del Valle MD Unavailable Orlando Ash MD Primary Care Provider [phone] Encounter Details Date Type Department Care Team (Late st Contact Info) Description 08/06/2022 Abstract [facility] OB [address] [facility] [place] [address] Eusebio Lam DO [address] [place] [address] Dr Jasmin [place], [id number] Social History Tobacco Use Types Packs/Day Years [...] Description 08/09/2024 8:30 AM EDT Routine [facility] OB [address] [facility] [place] [address] Megan Diego, ANI [address] [facility] [place] [address] documented as of this encounter Visit Diagnoses Not on filedocumented in this encounter Care Teams Repairer Auto Clocks Relationship Specialty Start Date End Date Janee Del Valle MD [address] [place] [address] PCP - Sri Gallegos 03/11/22 Orlando Ash MD [address] [place], [place] [phone] PCP - General Family Medicine 07/03/22 documented as of this encounter
--- OUTSIDE RECORDS SUMMARY | 2024-08-05 13:00 | XMS_ITS | Encounter Summary ---
Author Organization [facility] Address [address] [facility] [place] [address] Care Team Providers Care Agriculture Mechanic Name Role Phone Orlando Ash MD Primary Care Provider [phone] Encounter Details Date Type Department Care Team (Late st Contact Info) Description 12/29/2022 Clinisync Result Encounter NOMS External Department Unsolicited Yuri Lam DO [address] [facility] [address] Jas[place], [facility] Social History Tobacco Use Types Packs/Day Years [...] AM EDT Routine [facility] BCP OB [address] [facility] [place] [phone] Megan Diego, ANI [address] [facility] [place] [phone] documented as of this encounter Procedures Procedure Name Priority Date/Time Associated Diagnosis Comments US OB CERVICAL LENGTH 12/29/2022 2:24 PM EST documented in this encounter Results * US OB CERVICAL LENGTH (12/29/2022 2:24 PM EST) Anatomical Region Laterality Modality Other 12/29/2022 2:24 PM EST Narrative 12/29/2022 2:24 PM EST [address] [address] Ultrasound Report Signed Patient: HAWK KING MR#: [id number] : 2000 Acct:[id number] Age/Sex: 22 / F ADM Date: Loc: [facility] 254-[address]: Yuri Lam D.O. Ordering Physician: Yuri Lam D.O. Date of Service: 12/29/22 Procedure(s): US OB cervical length Accession Number(s): [id number] cc: Yuri Lam D.O.; Physician,Non-Staff Sindy The [address] [address] Patient Name: HAWK KING MRN: [id number] date: 2000 Sex: F Assigned Patient Location: [facility] Current Patient Location: [facility] Accession/Order Number: [id number] Exam Date: 12/29/2022 13:06 Report Date: 12/29/2022 14:24 At the request of: YURI LAM Procedure: US OB cervical length PROCEDURE: US OB cervical length, US OB [...] performed. ANATOMIC ASSESSMENT: Not performed. US/US OB cervical length IMPRESSION: 1. Single living intrauterine , cephalic [...] Signed By: 12/29/22 1427 DD/ 1424 TD/TT: Cloth Printer: Procedure Note Radiology, Radiologist, MD - 12/29/2022 [place] [address] Ultrasound Report Signed Patient: HAWK KING CMR#: [id number] : 2000Acct:[id number] Age/Sex: Date: Loc: [facility] 254-[address]: Yuri Lam D.O. Ordering Physician: Yuri Lam D.O. Date of Service: 12/29/22 Procedure(s): US OB cervical length Accession Number(s): [id number] cc: Yuri Lam D.O.; Physician,Non-Staff Sindy The [place] [address] Patient Name: HAWK KING MRN: [facility]:[id number] date: 2000 Sex: F Assigned Patient Location: [facility] Current Patient Location: [facility] Accession/Order Number: [id number] Exam Date: 12/29/2022 13:06 Report Date: 12/29/2022 14:24 At the request of: YURI LAM Procedure: US OB cervical length PROCEDURE: US OB cervical length, US OB [...] performed. ANATOMIC ASSESSMENT: Not performed. US/US OB cervical length IMPRESSION: 1. Single living intrauterine , cephalic [...] M.D. Signed By:12/29/22 1427 DD/ 1424 TD/TT: Cloth Printer: us Yuri Carole DO [facility] Final Result documented in this encounter Visit Diagnoses Not on filedocumented in this encounter Care Teams Agriculture Mechanic Relationship Specialty Start Date End Date Orlando Ash MD [address] [place] [address] PCP - General Family Medicine 07/03/22 documented as of this encounter
--- OUTSIDE RECORDS SUMMARY | 2024-08-05 13:00 | XMS_ITS | Encounter Summary ---
Author Organization [facility] Address [address] [place] [address] Care Team Providers Care Foster Care Case Manager Name Role Phone Janee Del Valle MD Unavailable Orlando Ash MD Primary Care Provider [phone] Encounter Details Date Type Department Care Team (Late Contact Info) Description 09/03/2022 Abstract [facility] OB [address] [place] [address] [place] [address] Radha Avila PA [address] [place] [address] Dr [place], [place] [address] Social History Tobacco Use Types Packs/Day Years [...] Encounters Date Type Department Care Team (Late Contact Info) Description 08/09/2024 8:30 AM EDT Routine [facility] BCP OB [address] [place] [address] [place] [address] Megan Diego, ANI [address] [place] [address] [place] [address] documented as of this encounter Visit Diagnoses Not on filedocumented in this encounter Care Teams Foster Care Case Manager Relationship Specialty Start Date End Date Janee Del Valle MD [address] [place] [address] PCP - Sri Gallegos 03/11/22 Orlando Ash MD [address] [place] [address] PCP - General Family Medicine 07/03/22 documented as of this encounter
--- OUTSIDE RECORDS SUMMARY | 2024-08-05 13:00 | XMS_ITS | Encounter Summary ---
Author Organization [facility] Address [address] [facility] [place] [address] Care Team Providers Care Quartz Cutter Name Role Phone Janee Del Valle MD Unavailable Orlando Ash MD Primary Care Provider [phone] Encounter Details Date Type Department Care Team (Late st Contact Info) Description 08/03/2022 Abstract [facility] [address] [facility] [place] [address] Eusebio Lam, [address] [place], [place] [id number] Social History Tobacco Use Types Packs/Day Years [...] AM EDT Routine [facility] [address] [facility] [place] [id number] Megan Diego NP [address] [facility] [place] [address] documented as of this encounter Visit Diagnoses Not on filedocumented in this encounter Care Teams Quartz Cutter Relationship Specialty Start Date End Date Janee Del Valle MD [address] [place] [address] PCP - [employer] 03/11/22 Orlando Ash MD [address] [place], [place] [id number] PCP - General Family Medicine 07/03/22 documented as of this encounter
--- OUTSIDE RECORDS SUMMARY | 2024-08-05 13:00 | XMS_ITS | Clinical Summary ---
Author Organization [facility] Address [address] [place] [address] Care Team Providers Care Compacting Machine Operator/Tender Name Role Phone Ann-Marie Ash MD Primary Care Provider [phone] Allergies No known active allergies Medications MV-Min-Fe Fum-FA-DHA ( 1 PO) Take 1 each by mouth Daily Active Active Problems Problem Noted Date Diagnosed Date Missed menses 07/02/2022 Estimated Date of Delivery Comme nts Yes 09/21/2024 Based on Ultraso und Encounters Date Type Department Care Team Description 08/03/2024 Clinisync Result Encounter [facility] External Department Unsolicited Yuri Lam, 08/03/2024 Clinisync Result Encounter [facility] External Department Unsolicited Yuri Lam, 07/26/2024 11:10 AM EDT Routine [facility] [address] [place] [address] Yuri Lam, DO Third trimester ([facility]); 31 weeks gestation of ([facility]) 07/26/2024 Clinisync Result Encounter [facility] External Department Unsolicited Yuri Lam, 07/26/2024 Bamboo flowsheet [facility] [address] Yuri Lam, 07/13/2024 10:30 AM EDT Routine [place] [address] Yuri Lam, Third trimester ([facility]); 30 weeks gestation of ([facility]); H/O delivery, currently ([facility]) 07/13/2024 Bamboo flowsheet [facility] [address] [place] [address] Yuri Lam, 06/28/2024 10:10 AM EDT Routine [facility] [address] [place] [address] Radha Avila PA Second trimester ([facility]); 27 weeks gestation of ([facility]) 06/28/2024 9:30 AM EDT Ancillary Procedure [facility] [address] [place] [address] H/O delivery, currently ([facility]) 06/13/2024 11:40 AM EDT Routine [facility] [address] [place] [address] Yuri Lam, Second trimester ([facility]); 25 weeks gestation of ([facility]); H/O delivery, currently ([facility]); Vapes nicotine containing substance 06/13/2024 Bamboo flowsheet [facility] [address] [place] [address] Yuri Lam DO 05/30/2024 Results Follow-Up [facility] [address] [place] [address] Carol Winter LPN 05/25/2024 Orders Only [facility] [address] [place] [address] Carol Winter LPN 05/25/2024 Abstract [facility] [address] [place] [address] Yuri Lam DO 05/18/20[address] [facility] [address] [place] [address] Radha Squires MA 05/16/2024 9:40 AM EDT Routine [facility] [address] [facility] [place] [address] Yuri Lam, DO 21 weeks gestation of ([facility]); Second trimester ([facility]); Diabetes mellitus screening; Well woman exam with routine gynecological exam; Exposure to STD; Vaginal discharge; Nausea 05/16/2024 Clinisync Result Encounter [facility] External Department Unsolicited Yuri Lam, DO 05/16/2024 External Result Encounter [facility] External Department Unsolicited Yuri Lam, DO 05/16/2024 Bamboo flowsheet [facility] [address] [place] [address] [place] [address] Yuri Lam, DO 05/10/[address] [facility] [address] [place] [address] Carol Winter LPN 05/08/2024 9:30 AM EDT Ancillary Procedure [facility] [address] [place] [address] [place] [address] Screening, , for anatomic survey ([facility]) from Last 3 Months Family History Medical History Relation Name Comments Diabetes Maternal Grandmother Heart disease Maternal Grandmother Asthma Mother Cancer Paternal Grandmother Relation Name Status Comments Maternal Grandmother Mother Paternal Grandmother Social History Tobacco Use Types Packs/Day Years Used Date Smoking Tobacco: Every Day Cigarettes Tobacco Cessation:Ready to Q uit: Not Asked; Counseling Given: Not Answered Comments:<1PPPD Alcohol Use Standard Drinks/Week Comments Yes 0 (1 standard drink = 0.6 oz pur e alcohol) heavy alcohol use Estimated Date of Delivery Comme nts Yes 09/21/2024 Based on Ultraso und Sex and Gender Information Value Date Recorded Sex Assigned at Not on file Legal Sex Female 6:44 PM EDT Gender Identity Not on file Sexual Orientation Not on file Last Filed Vital Signs Vital Sign Reading Time Taken Comments Blood Pressure 102/62 07/26/2024 11:21 AM EDT Pulse - - Temperature - - Respiratory Rate - - Oxygen Saturation - - Inhaled Oxygen Concentration - - Weight 73.3 kg (161 lb 8 oz) 07/26/2024 11:21 AM EDT Height 160 cm (5' 3 ) 03/12/2022 12:00 PM EST Body Mass Index 28.61 03/12/2022 12:00 PM EST Plan of Treatment Upcoming Encounters Date Type Department Care Team (Late st Contact Info) Description 08/09/2024 8:30 AM EDT Routine [facility] [address] [facility] [place] [address] Megan Diego, LINER INSTALLER [address] [place] [address] Procedures Procedure Name Priority Date/Time Associated Diagnosis Comments US OB BPP W NON-STRESS 08/03/2024 8:32 AM EDT US OB GROWTH 08/03/2024 8:32 AM EDT ALL CBC WITH AUTO DIFF Routine 12:13 PM EDT MLR HEMOGLOBIN A1C Routine 07/26/2024 12 :13 PM EDT POCT URINALYSIS DIPSTICK Routine 07/26/2024 11:35 AM EDT Third trimester ([facility]) POCT URINALYSIS DIPSTICK Routine 06/28/2024 10:19 AM EDT Second trimester ([facility]) US OB FOLLOW UP TRANSABDOMINAL APPROACH Routine 06/28/2024 10:08 AM EDT H/O delivery, currently ([facility]) US OB 14+ WEEKS ANATOMY SCAN 05/24/2024 5:38 PM EDT RECURRENT VAGINITIS (HTRX) Routine 05/16/2024 11:46 AM EDT POCT URINALYSIS DIPSTICK Routine 05/16/2024 9:58 AM EDT 21 weeks gestation of ([facility]) Second trimester ([facility]) IGP,APTIMA HPV,AGE GDLN Routine 05/17/19 9:57 AM EDT PAP SMEAR Routine 05/16/2024 12:00 AM EDT US OB 14+ WEEKS ANATOMY SCAN Routine 05/08/2024 10:10 AM EDT Screening, , for anatomic survey ([facility]) from Last 3 Months Results * US OB GROWTH (08/03/2024 8:32 AM EDT) Anatomical Region Laterality Modality Other 08/03/2024 8:32 AM EDT Narrative 08/03/2024 8:35 [place] [address] Ultrasound Report Signed Patient: HAWK KING MR#: [id number] : 2000 Acct:[id number] Age/Sex: 23 / F ADM Date: 08/02/24 Loc: US Attending Dr: Yuri Lam D.O. Ordering Physician: Yuri Lam D.O. Date of Service: 08/02/24 Procedure(s): US OB growth Accession Number(s): [id number] cc: Yuri Lam D.O.; Physician,Non-Staff M.D. The [place] [id number] Patient Name: HAWK KING MRN: [id number] date: 2000 Sex: F Assigned Patient Location: [facility] Current Patient Location: Accession/Order Number: [id number] Exam Date: 08/03/2024 08:23 Report Date: 08/03/2024 08:32 At the request of: YURI LAM DO Procedure: US OB BPP w non-stress CLINICAL INFORMATION: H/O LABOR O09.899 ULTRASOUND OB GROWTH COMPARISON: None There is a single live intrauterine gestation in cephalic presentation. There is cardiac and somatic activity. The heart rate [id number] beats per minute. The placenta is posterior. [...] Hunt M.D. 08/03/2024 8:32 AM Dictation Location: [place] [address] Electronically authenticated by: [id number] Y Date: 08/03/2024 08:32 Dictated By: Jing Hunt M.D. Signed By: 08/03/24 0835 DD/ 0832 TD/TT: Sheet Metal Duct Worker Supervisor: Procedure Note Radiology, Radiologist, - 08/03/2024 [place] [address] Ultrasound Report Signed Patient: HAWK KING [facility]#: [id number] : 2000Acct:[id number] Age/Sex: 23 / FADM Date: 08/02/24 Loc: US Attending Dr: Yuri Lam D.O. Ordering Physician: Yuri Lam D.O. Date of Service: 08/02/24 Procedure(s): US OB growth Accession Number(s): [id number] cc: Yuri Lam D.O.; Physician,Non-Staff MLe[place] [id number] Patient Name: HAWK KING MRN: [id number] date: 2000 Sex: F Assigned Patient Location: [facility] Current Patient Location: Accession/Order Number: [id number] Exam Date: 08/03/2024 08:23 Report Date: 08/03/2024 08:32 At the request of: YURI LAM DO Procedure: US OB BPP w non-stress CLINICAL INFORMATION: H/O LABOR O09.899 ULTRASOUND OB GROWTH COMPARISON: None There is a single live intrauterine gestation in cephalic presentation.There is cardiac and somatic activity. The heart rate [id number] per minute. The placenta is posterior. The [...] Hunt M.D. 08/03/2024 8:32 AM Dictation Location: [place] [address] Electronically authenticated by: [id number] Y Date: 508:32 Dictated By: Jing Hunt M.D. Signed By:08/03/2435 DD/ 1 TD/TT: Sheet Metal Duct Worker Supervisor: us Yuri Lam DO [facility] Final Result * US OB BPP W NON-STRESS (08/03/2024 8:32 AM EDT) Anatomical Region Laterality Modality Other 08/03/2024 8:32 AM EDT Narrative 08/03/2024 8:35 [place] [address] Ultrasound Report Signed Patient: HAWK KING MR#: [id number] : 2000 Acct:[id number] Age/Sex: 23 / F ADM Date: 08/02/24 Loc: US Attending Dr: Yuri Lam D.O. Ordering Physician: Yuri Lam D.O. Date of Service: 08/02/24 Procedure(s): US OB BPP w non-stress Accession Number(s): [id number] cc: Yuri Lam D.O.; Physician,Non-Staff Sindy The [address] [address] Patient Name: HAWK KING MRN: [id number] date: 2000 Sex: F Assigned Patient Location: [facility] Current Patient Location: Accession/Order Number: [id number] Exam Date: 08/03/2024 08:23 Report Date: 08/03/2024 08:32 At the request of: YURI LAM DO Procedure: US OB BPP w non-stress CLINICAL INFORMATION: H/O LABOR O09.899 ULTRASOUND OB GROWTH COMPARISON: None There is a single live intrauterine gestation in cephalic presentation. There is cardiac and somatic activity. The heart rate [id number] beats per minute. The placenta is posterior. [...] oz. +/- 13 ounces (78%) US/US OB BPP w non-stress IMPRESSION: SINGLE LIVE INTRAUTERINE GESTATION WITH ULTRASOUND [...] Hunt M.D. 08/03/2024 8:32 AM Dictation Location: [place] [address] Electronically authenticated by: [id number] Y Date: 08/03/2024 08:32 Dictated By: Jing Hunt M.D. Signed By: 08/03/24 0835 DD/ 0832 TD/TT: Sheet Metal Duct Worker Supervisor: Procedure Note Radiology, Radiologist, - 06/26/2025 [place] [address] Ultrasound Report Signed Patient: HAWK KING CMR#: [id number] : 2000Acct:[id number] Age/Sex: 23 / FADM Date: 08/02/24 Loc: US Attending Dr: Yuri Lam D.O. Ordering Physician: Yuri Lam D.O. Date of Service: 08/02/24 Procedure(s): US OB BPP w non-stress Accession Number(s): [id number] cc: Yuri Lam D.O.; Physician,Non-Staff Sindy The [place] [id number] Patient Name: HAWK KING MRN: [id number] date: 2000 Sex: F Assigned Patient Location: [facility] Current Patient Location: Accession/Order Number: [id number] Exam Date: 08/03/2024 08:23 Report Date: 08/03/2024 08:32 At the request of: YURI LAM DO Procedure: US OB BPP w non-stress CLINICAL INFORMATION: H/O LABOR O09.899 ULTRASOUND OB GROWTH COMPARISON: None There is a single live intrauterine gestation in cephalic presentation.There is cardiac and somatic activity. The heart rate zzyyyfjj646jvvdy per minute. The placenta is posterior. The [...] oz. +/- 13 ounces (78%) US/US OB BPP w non-stress IMPRESSION: SINGLE LIVE INTRAUTERINE GESTATION WITH ULTRASOUND [...] Hunt M.D. 08/03/2024 8:32 AM Dictation Location: [place] [address] Electronically authenticated by: [id number] Y Date: 508:32 Dictated By: Jing Hunt M.D. Signed By:08/03/24 0835 DD/ 0832 TD/TT: Sheet Metal Duct Worker Supervisor: Yuri Carole DO [facility] Final Result * MLR HEMOGLOBIN A1C (07/26/2024 12:13 PM EDT) Pathologist [facility] GLYCOHEMOGLOBIN A1C 4.8 4.5 - 6.2 % TB Comment: ADA RECOMMENDED LIMIT 4.0 - 6.0 ADA THERAPEUTIC TARGET < 7.0 ACTION SUGGESTED > 7.0 ESTIMATED AVERAGE GLUCOSE 91 mg/dL TB 07/26/2024 12:1 3 PM EDT 07/26/2024 12:39 PM EDT Narrative [facility] - 07/26/2024 1:18 PM EDT Yuri Carole DO [facility] Final [facility] * (ABNORMAL) ALL CBC WITH AUTO DIFF (07/26/2024 12:13 PM EDT) TB WBC 10.4 4.0 - 11.0 10 3/uL TB TB RBC 3.65(L) 4.20 - 5.40 10 6/uL TBH TBH HGB 11.6(L) 12.0 - 16.0 g/dL TBH TBH HCT 34.6(L) 36.0 - 48.0 % TBH TBH MCV 94.8 81.0 - 99.0 fL TBH TBH MCH 31.8 26.7 - 34.0 pg TBH TBH MCHC 33.5 29.9 - 35.2 g/dL TBH TBH RDW 13.2 11.0 - 15.0 % TBH TBH PLT 308 150 - 450 10 3/uL TBH TBH MPV 10.9 9.5 - 13.5 fL TBH NEUTROPHILS PERCENT AUTO 63.5 43.0 - 75.0 % TBH LYMPHOCYTES PERCENT AUTO 25.0 20.5 - 60.0 % TBH MONOCYTES PERCENT AUTO 9.5 1.7 - 12.0 % TBH TBH EO % 1.4 0.9 - 7.0 % TBH BASOPHILS PERCENT AUTO 0.3 0.2 - 2.0 % TBH IMMATURE GRANULOCYTES PCT AUTO 0.3 0.0 - 0.5 % TBH NEUTROPHILS ABSOLUTE AUTO 6.6(H) 1.4 - 6.5 10 3/uL TBH LYMPHOCYTES ABSOLUTE AUTO 2.6 1.2 - 3.8 10 3/uL TBH MONOCYTES ABSOLUTE AUTO 1.0(H) 0.3 - 0.8 10 3/uL TBH TBH EO # 0.1 0.0 - 0.7 10 3/uL TBH BASOPHILS ABSOLUTE AUTO 0.0 0.0 - 0.1 10 3/uL TBH IMMATURE GRANULOCYTES ABS AUTO 0.03 0.00 - 0.03 10 3/uL TBH 07/26/2024 12:1 3 PM EDT 07/26/2024 12:39 PM EDT Narrative [facility] - 07/26/2024 1:24 PM EDT us Yuri Carole DO [facility] Final Result [facility] * (ABNORMAL) POCT urinalysis dipstick manually resulted (07/26/2024 11:35 AM EDT) Only the most recent of3 resultswithin the time period is included. Color, UA Yellow Clarity, UA Clear Glucose, UA Negative Negative - 1999(110) ++++ mg/dL Bilirubin, UA Negative Negative - 4(70) +++ mg/dL Ketones, UA Negative Negative - 160(16) ++++ mg/dL Spec Grav, UA 1.020 1 - 1.03 Blood, UA Negative Negative - 50 Jian/mcL pH, UA 1.0 5 - 9 Protein, UA Positive Negative - 2000(20) ++++ mg/dL Comment:30mg/dL Urobilinogen, UA 2.0 0.2 - 12 mg/dL Leukocytes, UA Positive Negative - 500+++ Heriberto/mcL Comment:small Nitrite, UA Negative Negative - Positive Urine 07/26/2024 11:3 5 AM EDT us Radha GARCIA POINT OF CARE TEST ENTER/EDIT OR DERABLES Final Result * US OB follow up transabdominal approach (06/28/2024 10:08 AM EDT) Anatomical Region Laterality Modality Body Ultrasound 06/30/2024 12:1 8 PM EDT Narrative 06/30/2024 12:18 PM EDT EXAM: US OB FOLLOW UP TRANSABDOMINAL APPROACH HISTORY: History of labor. COMPARISON: Ob ultrasound 05/08/2024. TECHNIQUE: Two-dimensional transabdominal grayscale ultrasound imaging of the pelvis was performed. FINDINGS: Gestation: Single Presentation: Breech Cardiac Activity: 152 beats per minute Placental Location: Posterior with no sonographic abnormalities identified. Amniotic Fluid Index: 17.6 cm MEASUREMENTS: BPD: 7.2 cm EGA: 28 weeks 6 days HC: 26.8 cm EGA: 29 weeks 1 days AC: 24.8 cm EGA: 29 weeks 0 days FL: 5.4 cm EGA: 28 weeks 5 days HC/AC Ratio: 1.08 The gestational age by today's ultrasound is 29 weeks 0 days (+/- 14 days gestation). Estimated Weight: 1312 grams, +/- 197 grams ( 2 lb 14 oz). Weight Percentile for gestational age: 80 % IMPRESSION: 1. Single, live intrauterine gestation 27 weeks, 6 days by LMP. Today's ultrasound measurements correlate with a gestational age of 29 weeks 0 days. Estimated weight is 1312 grams, +/- 197 grams ( 2 lb 14 oz) which correlates to 80 %. HONEY is 09/13/2024. Interpreted by: Electronically signed by ANN-MARIE TAMAYO II, MD, PHD at 30-Jun-2024 12:16:48 PM [facility] Procedure Note Ann-Marie Tamayo MD - 06/30/2024 EXAM: US OB FOLLOW UP TRANSABDOMINAL APPROACH HISTORY: History of labor. COMPARISON: Ob ultrasound 05/08/2024. TECHNIQUE: Two-dimensional transabdominal grayscale ultrasound imaging ofthe pelvis was performed. FINDINGS: Gestation: Single Presentation: Breech Cardiac Activity: 152 beats per minute Placental Location: Posterior with no sonographic abnormalitiesidentified. Amniotic Fluid Index: 17.6 cm MEASUREMENTS: BPD: 7.2 cm EGA: 28 weeks 6 days HC: 26.8 cm EGA: 29 weeks 1 days AC: 24.8 cm EGA: 29 weeks 0 days FL: 5.4 cm EGA: 28 weeks 5 days HC/AC Ratio: 1.08 The gestational age by today's ultrasound is 29 weeks 0 days (+/- 14 daysgestation). Estimated Weight: 1312 grams, +/- 197 grams ( 2 lb 14 oz). Weight Percentile for gestational age: 80 % IMPRESSION: 1. Single, live intrauterine gestation 27 weeks, 6 days by LMP. Today'sultrasound measurements correlate with a gestational age of 29 weeks 0days. Estimated weight is 1312 grams, +/- 197 grams ( 2 lb 14 oz)which correlates to 80 %. HONEY is 09/13/2024. Interpreted by: Electronically signed by ANN-MARIE TAMAYO II, MD, PHD [id number] 12:16:48 PM [facility] us Yuri Lam DO IM OB US PROCEDURES Final Resul t * US OB 14+ weeks anatomy scan (05/24/2024 5:38 PM EDT) Only the most recent of2 resultswithin the time period is included. Anatomical Region Laterality Modality Body Ultrasound 05/24/2024 5:38 PM EDT Narrative 05/24/2024 5:38 PM EDT THIS EXAM WAS PERFORMED AT [facility] NAME: DUNG ONOFRE : 2000 SEX: F Accession Number: [id number] ORDERING PHYSICIAN: VELMA GARCIA REFERRING PHYSICIAN: YURI LAM Coding ----- --------- Procedures 14989: Ultrasound, uterus, real time with image documentation, and maternal evaluation plus detailed anatomic examination, transabdominal approach;single or first gestation 98589: Transvaginal Ultrasound (OB) Indication ----- --------- Screening for Anatomic Survey , Screening for cervical length, history of thyroid disease, History of gestational hypertension, History of prior with delivery, Abnormal finding on screening of mother - + CF SMA carrier, Smoking in - vapes, marijuana use in . Supervision of high risk - Hypoplastic NB History ----- --------- OB History 5. Para 2 [id number] Current ----- --------- Cell free DNA Low Risk analysis Maternal Assessment ----- --------- Physical Exam Height 160 cm, 5 ft 3 in. Weight 67 kg, 148 lb. BMI 26.22 kg/m??? Method ----- --------- Transabdominal and transvaginal ultrasound examination ----- --------- Lundberg . Number of fetuses: 1 Dating ----- --------- GA by prior assessment 22 w + 6 d HONEY by prior assessment: 09/21/2024 Ultrasound examination on: 05/24/2024 GA by U/S based upon: AC, BPD, Femur, HC GA by U/S 24 w + 2 d HONEY by U/S: 09/11/2024 Assigned: based on stated HONEY, selected on 05/24/2024 Assigned GA 22 w + 6 d Assigned HONEY: 09/21/2024 General Evaluation ----- --------- Cardiac activity Present. FHR 146 bpm. Presentation: cephalic Placenta: Placental site: posterior, away from cervical os Umbilical cord: Cord vessels: 3 vessel cord. Insertion site: normal insertion Amniotic fluid: Amount of AF: normal amount Biometry ----- --------- BPD 56.8 mm 23w 3d 65% Hadlock OFD 78.8 mm 25w 5d >99% Brenda HC 218.5 mm 23w 6d 76% Hadlock Cerebellum tr 24.8 mm 22w 4d 74% Hill Nuchal fold 5.3 mm AC 211.2 mm 25w 5d 98% Hadlock Femur 42.8 mm 24w 0d 75% Hadlock Humerus 39.2 mm 24w 0d 75% Brenda HC / AC 1.03 Weight Calculation: EFW 731 g >99% Hadlock EFW (lb,oz) 1 lb 10 oz EFW by Hadlock (LAY-VP-DL-FL) Head / Face / Neck Biometry: Cephalic index 0.72 3% Nicolaides Blasting Machine Operator 2.5 mm CM 6.3 mm 69% Nicolaides Inner IOD 15.2 mm Outer IOD 37.5 mm Nasal bone 5.4 mm Extremities / Bony Struc Biometry: FL / BPD 0.75 FL / HC 0.20 FL / AC 0.20 Tibia 36.7 mm 23w 5d 80% Brenda Anatomy ----- --------- The following structures appear abnormal: Face: Nasal bone. The following structures appear normal: Head/Neck: Cranium. Lateral ventricles. Choroid plexus. Midline falx. Cavum septi pellucidi. Cerebellum. Cisterna magna. Parenchyma. Vermis. Neck. Nuchal fold. Face Lips. Profile. Nose. Maxilla. Mandible. Orbits. Heart/Thorax: 4-chamber view. RVOT view. LVOT view. 3-vessel view. 6-zfxawk-otwybak view. Situs. Aortic arch view. Bicaval view. Ductal arch view. Interventricular septum. Great vessels. Cardiac position. Cardiac axis. Cardiac size. Cardiac rhythm. Right lung. Left lung. Diaphragm. Abdomen: Abdom. wall. Cord insertion. Stomach. Kidneys. Bladder. Small bowel. Large bowel. Right renal artery. Left renal artery. Genitals. Spine: Cervical spine. Thoracic spine. Lumbar spine. Sacral spine. Extremities/Skeleton: Right upper arm. Right forearm. Right hand. Left upper arm. Left forearm. Left hand. Right upper leg. Right lower leg. Right foot. Left upper leg. Left lower leg. Left foot. Maternal Structures ----- --------- Uterus Visualized Cervix Visualized Approach - Transvaginal: Cervical length 5.30 cm Right Ovary Visualized Size 21 mm x 22 mm x 10 mm. Vol 2.3 cm??? Left Ovary Visualized Size 17 mm x 10 mm x 15 mm. Vol 1.4 cm??? Cul de Sac Visualized. No free fluid visualized Impression ----- --------- Single viable intrauterine with EFW measuring at the >99%. AC measures at the 98%. Transvaginal cervical length measures 5.3 cm. Hypoplastic nasal bone visualized. anatomic survey did not reveal any other sonographic evidence of any gross structural abnormalities. Recommendations ----- --------- Please see [facility] documentation from today. Subsequent follow up or other follow up as clinically determined by primary OB provider unless otherwise specified by M. Results forwarded to ordering provider so they can follow up with the patient as necessary. The copy-to physician of this order is YURI Shore The ordering physician of this order is VELMA De La O Procedure Note Radiology, Radiologist, MD - 05/24/2024 THIS EXAM WAS PERFORMED AT [facility] NAME: DUNG ONOFRE : 2000 SEX: F Accession Number: [id number] ORDERING PHYSICIAN: VELMA GARCIA REFERRING PHYSICIAN: YURI LAM Coding ----- --------- Procedures 91937: Ultrasound, uterus, real time with imagedocumentation, and maternal evaluation plus detailed anatomic examination, transabdominalapproach;single or first gestation 36607: Transvaginal Ultrasound (OB) Indication ----- --------- Screening for Anatomic Survey , Screening for cervical length, history ofthyroid disease, History of gestational hypertension, History of prior with delivery, Abnormalfinding on screening of mother - + CF SMA carrier, Smoking in - vapes, marijuana use in .Supervision of high risk - Hypoplastic NB History ----- --------- OB History 5. Para 2 [id number] Current ----- --------- Cell free DNA Low Risk analysis Maternal Assessment ----- --------- Physical Exam Height 160 cm, 5 ft 3 in. Weight 67 kg, 148 lb. BMI 26.22kg/m??? Method ----- --------- Transabdominal and transvaginal ultrasound examination ----- --------- Lundberg . Number of fetuses: 1 Dating ----- --------- GA by prior assessment 22 w + 6 d HONEY by prior assessment: 09/21/2024 Ultrasound examination on: 05/24/2024 GA by U/S based upon: AC, BPD, Femur, HC GA by U/S 24 w + 2 d HONEY by U/S: 09/11/2024 Assigned: based on stated HONEY, selected on 05/24/2024 Assigned GA 22 w + 6 d Assigned HONEY: 09/21/2024 General Evaluation ----- --------- Cardiac activity Present. FHR 146 bpm. Presentation: cephalic Placenta: Placental site: posterior, away from cervical os Umbilical cord: Cord vessels: 3 vessel cord. Insertion site: normalinsertion Amniotic fluid: Amount of AF: normal amount Biometry ----- --------- BPD 56.8 mm 23w 3d 65% Hadlock OFD 78.8 mm 25w 5d >99% Brenda HC 218.5 mm 23w 6d 76% Hadlock Cerebellum tr 24.8 mm 22w 4d 74% Hill Nuchal fold 5.3 mm AC 211.2 mm 25w 5d 98% Hadlock Femur 42.8 mm 24w 0d 75% Hadlock Humerus 39.2 mm 24w 0d 75% Brenda HC / AC 1.03 Weight Calculation: EFW 731 g >99% Hadlock EFW (lb,oz) 1 lb 10 oz EFW by Hadlock (FRD-EE-IO-FL) Head / Face / Neck Biometry: Cephalic index 0.72 3% Nicolaides Blasting Machine Operator 2.5 mm CM 6.3 mm 69% Nicolaides Inner IOD 15.2 mm Outer IOD 37.5 mm Nasal bone 5.4 mm Extremities / Bony Struc Biometry: FL / BPD 0.75 FL / HC 0.20 FL / AC 0.20 Tibia 36.7 mm 23w 5d 80% Brenda Anatomy ----- --------- The following structures appear abnormal: Face: Nasal bone. The following structures appear normal: Head/Neck: Cranium. Lateral ventricles. Choroid plexus. Midline falx.Cavum septi pellucidi. Cerebellum. Cisterna magna. Parenchyma. Vermis. Neck. Nuchal fold. Face Lips. Profile. Nose. Maxilla. Mandible. Orbits. Heart/Thorax: 4-chamber view. RVOT view. LVOT view. 3-vessel view.7-amgqcl-shsfdrh view. Situs. Aortic arch view. Bicaval view. Ductal arch view. Interventricular septum. Greatvessels. Cardiac position. Cardiac axis. Cardiac size. Cardiac rhythm. Right lung. Left lung. Diaphragm. Abdomen: Abdom. wall. Cord insertion. Stomach. Kidneys. Bladder. Smallbowel. Large bowel. Right renal artery. Left renal artery. Genitals. Spine: Cervical spine. Thoracic spine. Lumbar spine. Sacral spine. Extremities/Skeleton: Right upper arm. Right forearm. Right hand. Leftupper arm. Left forearm. Left hand. Right upper leg. Right lower leg. Right foot. Left upper leg. Left lower leg. Leftfoot. Maternal Structures ----- --------- Uterus Visualized Cervix Visualized Approach - Transvaginal: Cervical length 5.30 cm Right Ovary Visualized Size 21 mm x 22 mm x 10 mm. Vol 2.3 cm??? Left Ovary Visualized Size 17 mm x 10 mm x 15 mm. Vol 1.4 cm??? Cul de Sac Visualized. No free fluid visualized Impression ----- --------- Single viable intrauterine with EFW measuring at the >99%. FetalAC measures at the 98%. Transvaginal cervical length measures 5.3 cm. Hypoplastic nasal bone visualized. anatomic survey did not reveal any other sonographic evidence of anygross structural abnormalities. Recommendations ----- --------- Please see [facility] documentation from today. Subsequent follow up or other follow up as clinically determined byprimary OB provider unless otherwise specified by [facility]. Results forwarded to ordering provider so they can follow up with thepatient as necessary. The copy-to physician of this order is YURI Shore The ordering physician of this order is VELMA De La O Yuri Lam DO [facility] OB US PROCEDURES Final Resul t * (ABNORMAL) RECURRENT VAGINITIS (HTRX) (05/16/2024 11:46 AM EDT) [facility] ATOPOBIUM VAGINAE 19.357(A) 19.961 - 24.689 ppm 05/17/2024 9:14 AM EDT [facility] ATOPOBIUM VAGINAE Detected(A) 19.961 - 24.689 ppm 05/17/2024 9:14 AM EDT [facility] BVAB 2,3 (BACTERIAL VAGINOSIS ASSOCIATED BACTERIA 2, 3); MOBILUNCUS SPP 16.919(A) 19.961 - 24.689 ppm 05/17/2024 9:14 AM EDT [facility] BVAB 2,3 (BACTERIAL VAGINOSIS ASSOCIATED BACTERIA 2, 3); MOBILUNCUS SPP Detected(A) 19.961 - 24.689 ppm 05/17/2024 9:14 AM EDT [facility] ALYSSA ALBICANS, PARAPSILOSIS, TROPICALIS 0.000 19.961 - 30.770 ppm 05/17/2024 9:14 AM EDT [facility] ALYSSA ALBICANS, PARAPSILOSIS, TROPICALIS Not Detected 19.961 - 30.770 ppm 05/17/2024 9:14 AM EDT [facility] ALYSSA GLABRATA 0.000 23.000 - 32.138 ppm 05/17/2024 9:14 AM EDT [facility] ALYSSA GLABRATA Not Detected 23.000 - 32.138 ppm 05/17/2024 9:14 AM EDT [facility] ALYSSA KRUSEI 0.000 23.000 - 32.271 ppm 05/17/2024 9:14 AM EDT [facility] ALYSSA KRUSEI Not Detected 23.000 - 32.271 ppm 05/17/2024 9:14 AM EDT [facility] CHLAMYDIA TRACHOMATIS 0.000 23.000 - 31.467 ppm 05/17/2024 9:14 AM EDT [facility] CHLAMYDIA TRACHOMATIS Not Detected 23.000 - 31.467 ppm 05/17/2024 9:14 AM EDT [facility] GARDNERELLA VAGINALIS 24.591(A) 19.961 - 24.689 ppm 05/17/2024 9:14 AM EDT [facility] GARDNERELLA VAGINALIS Detected(A) 19.961 - 24.689 ppm 05/17/2024 9:14 AM EDT [facility] MEGASPHAERA (TYPES 1, 2) 0.000 19.961 - 24.689 ppm 05/17/2024 9:14 AM EDT [facility] MEGASPHAERA (TYPES 1, 2) Not Detected 19.961 - 24.689 ppm 05/17/2024 9:14 AM EDT [facility] NEISSERIA GONORRHOEAE 0.000 23.000 - 32.117 ppm 05/17/2024 9:14 AM EDT [facility] NEISSERIA GONORRHOEAE Not Detected 23.000 - 32.117 ppm 05/17/2024 9:14 AM EDT [facility] TRICHOMONAS VAGINALIS 0.000 23.000 - 32.119 ppm 05/17/2024 9:14 AM EDT [facility] TRICHOMONAS VAGINALIS Not Detected 23.000 - 32.119 ppm 05/17/2024 9:14 AM EDT [facility] MYCOPLASMA GENITALIUM 22.396(A) 19.961 - 24.689 ppm 05/17/2024 9:14 AM EDT [facility] MYCOPLASMA GENITALIUM Detected(A) 19.961 - 24.689 ppm 05/17/2024 9:14 AM EDT [facility] ERMB, C; MEFA 19.876(A) 23.000 - 27.611 ppm 05/17/2024 9:14 AM EDT [facility] ERMB, C; MEFA Detected(A) 23.000 - 27.611 ppm 05/17/2024 9:14 AM EDT [facility] TET B, TET M 20.657(A) 23.000 - 27.778 ppm 05/17/2024 9:14 AM EDT [facility] TET B, TET M Detected(A) 23.000 - 27.778 ppm 05/17/2024 9:14 AM EDT [facility] Tissue 05/16/2024 11:4 6 AM EDT 05/17/2024 4:10 AM EDT us Yuri Lam DO LAB BLOOD ORDERABLES Final Resul t [facility] [address] [facility] [place] [address] * IGP,APTIMA HPV,AGE GDLN (05/16/2024 9:57 AM EDT) AGE GDLN ACOG TESTING Note . TB Comment: TESTS RESULT FLAG UNITS REF RANGE LAB Clinician Provided Cytology Information Source.............Cervix Other.............. No. of containers..01 ThinPrep Vial Age Algo ACOG Vicky... -08 03 FLAG LEGEND: L-Low Normal,H-High Normal,LL-Alert Low,HH-Alert High <-Panic Low,>-Panic High,A-Abnormal,AA-Critical Abnormal Performed at: 01 [facility] [address] [place] [address] Katie Lopez MD, IGP, RFX APTIMA HPV ASCU Note . [facility] Comment: TESTS RESULT FLAG UNITS REF RANGE LAB DIAGNOSIS: 02 NEGATIVE FOR INTRAEPITHELIAL LESION OR MALIGNANCY. Specimen adequacy: 02 Satisfactory for evaluation. Endocervical and/or squamous metaplastic cells (endocervical component) are present. Performed by: 02 Radha Cruz, Avionics Installer ([facility]) . 02 Note: Note 03 The Pap smear is a screening test designed to aid in the detection of premalignant and malignant conditions of the uterine cervix. It is not a diagnostic procedure and should not be used as the sole means of detecting cervical cancer. Both false-positive and false-negative reports do occur. Test Methodology: Note 03 This liquid based ThinPrep(R) pap test was screened with the use of an image guided system. . 02 The HPV DNA reflex criteria were not met with this specimen result therefore, no HPV testing was performed. FLAG LEGEND: L-Low Normal,H-High Normal,LL-Alert Low,HH-Alert High <-Panic Low,>-Panic High,A-Abnormal,AA-Critical Abnormal Performed at: 02 [facility] [address] [place] [address] Fer Mehta MD, 03 WB [facility] [address] [address] Katie Lopez MD, Performed at: =G - [facility] [address] [id number] [employer]: Katie Lopez MD, Phone: [phone] Performed at: [facility] [address] [place], [place] [id number] [employer]: Fer Mehta MD, Phone: [phone] 05/16/2024 9:57 AM EDT 05/16/2024 2:50 PM EDT Narrative [facility] - 05/19/2024 11:20 AM EDT SPATULA-ALONE CERVIX Yuri Carole DO LAB BLOOD ORDERABLES Final Resul t [facility] * Pap Smear (05/16/2024 12:00 AM EDT) Swab Cervical swab / Unknown Yuri Carole DO LAB CYTOLOGY ORDERABLES Final Re sult EXTERNAL LAB from Last 3 Months Insurance [address] [place] [address] [place] Care Teams Compacting Machine Operator/Tender Relationship Specialty Start Date End Date Ann-Marie Ash MD [address] [place] [address] PCP - General Family Medicine 07/03/22
--- OUTSIDE RECORDS SUMMARY | 2024-08-05 13:00 | XMS_ITS | Encounter Summary ---
Author Organization [facility] Address [address] [place] [address] Care Team Providers Care Hedge Fund Manager Name Role Phone Orlando Ash MD Primary Care Provider [phone] Encounter Details Date Type Department Care Team (Late st Contact Info) Description 12/29/2022 Clinisync Result Encounter [facility] External Department Unsolicited Yuri Lam DO [address] [place] [id number] Social History Tobacco Use Types Packs/Day Years [...] EDT Routine [facility] [address] [facility] [phone] Megan Diego, MED SPEC [address] [place] [phone] documented as of this encounter Procedures Procedure Name Priority Date/Time Associated Diagnosis Comments US OB BPP W NON-STRESS 12/29/2022 2:24 PM EST documented in this encounter Results * US OB BPP W NON-STRESS (12/29/2022 2:24 PM EST) Anatomical Region Laterality Modality Other 12/29/2022 2:24 PM EST Narrative 12/29/2022 2:24 [place] [address] Ultrasound Report Signed Patient: HAWK KING MR#: [id number] : 2000 Acct:[id number] Age/Sex: 22 / F ADM Date: Loc: [facility] 254-[address]: Yuri Lam D.O. Ordering Physician: Yuri Lam D.O. Date of Service: 12/29/22 Procedure(s): US OB BPP w non-stress Accession Number(s): [id number] cc: Yuri Lam D.O.; Physician,Non-Staff M.DTaylor [place] [id number] Patient Name: HAWK KING MRN: [id number] date: 2000 Sex: F Assigned Patient Location: [facility] Current Patient Location: [facility] Accession/Order Number: [id number] Exam Date: 12/29/2022 13:06 Report Date: 12/29/2022 14:24 At the request of: YURI LAM Procedure: US OB BPP w non-stress PROCEDURE: US OB cervical length, US OB [...] performed. ANATOMIC ASSESSMENT: Not performed. US/US OB BPP w non-stress IMPRESSION: 1. Single living intrauterine , cephalic [...] Dictated By: Natasha Thapa M.D. Signed By: 12/29/221426 DD/ 23 TD/TT: Trailer Rental Clerk: Procedure Note Radiology, Radiologist, MD - 12/29/2022 [place] [address] Ultrasound Report Signed Patient: HAWK KING CMR#: [id number] : 2000Acct:[id number] Age/Sex: Date: Loc: [facility] 254-[address]: Yuri Lam D.O. Ordering Physician: Yuri Lam D.O. Date of Service: 12/29/22 Procedure(s): US OB BPP w non-stress Accession Number(s): [id number] cc: Yuri Lam D.O.; Physician,Non-Staff MLeopoldo The [place] [address] Patient Name: HAWK KING MRN: [id number] date: 2000 Sex: F Assigned Patient Location: [facility] Current Patient Location: [facility] Accession/Order Number: [id number] Exam Date: 12/29/2022 13:06 Report Date: 12/29/2022 14:24 At the request of: YURI LAM Procedure: US OB BPP w non-stress PROCEDURE: US OB cervical length, US OB [...] performed. ANATOMIC ASSESSMENT: Not performed. US/US OB BPP w non-stress IMPRESSION: 1. Single living intrauterine , cephalic [...] Natasha Thapa M.D. Signed By:12/29/22 1427 DD/ 23 TD/TT: Trailer Rental Clerk: us Yuri Carole DO [facility] Final Result documented in this encounter Visit Diagnoses Not on filedocumented in this encounter Care Teams Hedge Fund Manager Relationship Specialty Start Date End Date Orlando Ash MD [address] [place] [address] PCP - General Family Medicine 07/03/22 documented as of this encounter
--- OUTSIDE RECORDS SUMMARY | 2024-08-05 13:00 | XMS_ITS | Encounter Summary ---
Author Organization [facility] Address [address] [place] [address] Care Team Providers Care Digital Media Specialist Name Role Phone Orlando Ash MD Primary Care Provider [phone] Encounter Details Date Type Department Care Team (Late st Contact Info) Description 05/25/2024 Abstract [facility] OB [address] [place] [address] Eusebio Lam DO [address] [place], [place] [address] Social History Tobacco Use Types Packs/Day Years [...] Description 08/09/2024 8:30 AM EDT Routine [facility] [address] [place] [address] Megan Diego, ANI [address] [place] [address] documented as of this encounter Visit Diagnoses Not on filedocumented in this encounter Care Teams Digital Media Specialist Relationship Specialty Start Date End Date Orlando Ash MD [address] [place] [address] PCP - General Family Medicine 07/03/22 documented as of this encounter
--- OUTSIDE RECORDS SUMMARY | 2024-08-05 13:00 | XMS_ITS | CCD ---
Author Organization [facility] Care Team Providers Care Travel Administrator Name Role Phone ANN-MAREI ASH Primary Care Unavailable KARIS MARI Attending Unavailable ASH, ANN-MARIE Dc Primary Care Unavailable KOSTA LOZANO Attending Unavailable ASH, ANN-MARIE Dc Primary Care Unavailable ANN-MARIE ENGLE Attending Unavailable ASH, ANN-MARIE Dc Primary Care Unavailable VARUN BARTHOLOMEW Attending Unavailable Mihir, Ann-Marie Dc Primary Care Provider [phone] TRUDY VILLEGAS Referring Unavailable MIHIR, ANN-MARIE Dc Primary Care Unavailable ASH, ANN-MARIE Dc Primary Care Unavailable ALEXANDRIA SIDDIQUI Attending Unavailable ASH, ANN-MARIE A Primary Care Unavailable VICTORINO SULLIVAN Attending Unavailable Ash, Ann-Marie Vanda Primary Care Provider [phone] CAROLE ., DR WELCH Consulting Unavailable CAROLE [...] Unavailable PAY ., DR HOWARD Admitting Unavailable RADHA FRIED Consulting Unavailable CAROLE ., DR WELCH [...] Unavailable CAROLE ., DR WELCH Admitting Unavailable ALBIA, DR CHEMA Argueta Consulting Unavailable MISC, DR [...] Unavailable MISC, DR GANDARA Primary Care Unavailable Mihir DEL VALLE, Ann-Marie Dc Primary Care Provider MIHIR DEL VALLE, ANN-MARIE Dc Primary Care Unavailable Abner Laguerre Attending Unavailable Abner Laguerre Admitting Unavailable ASHANN-MARIE Summers Referring Unavailable ASH, ANN-MARIE Dc Primary Care Unavailable SHANNAN ESPINOZA Attending Unavailable SHANNAN ESPINOZA Referring Unavailable ASH, ANN-MARIE Dc Primary Care Unavailable ASH, ANN-MARIE Dc Primary Care Unavailable SHANNAN ROJO Referring Unavailable ASH, ANN-MARIE Dc Primary Care Unavailable SHANNAN ROJO Attending Unavailable MIHIR, ANN-MARIE Dc Referring Unavailable ASH, ANN-MARIE A Primary Care Unavailable STUART CARDOSO Attending Unavailable MIHIR, ANN-MARIE Dc Referring Unavailable ASH, ANN-MARIE Dc Primary Care Unavailable CAROLE, EUSEBIO R Referring Unavailable ASH, ANN-MARIE Dc Primary Care Unavailable CESAR GEORGES Attending Unavailable CAROLE, EUSEBIO R Referring Unavailable ASH, ANN-MARIE A Primary Care Unavailable RADHA AVILA Attending Unavailable RADHA AVILA Attending Unavailable RADHA AVILA Referring Unavailable EUSEBIO LAM Attending Unavailable EUSEBIO LAM Attending Unavailable RADHA AVILA Attending Unavailable EUSEBIO LAM Attending Unavailable EUSEBIO LAM Attending Unavailable EUSEBIO LAM Attending Unavailable Allergies Allergy Classification Reported Allergen(s) Allergy Type Date of Onset Reaction(s) Facility (1 source) No Known Medication Allergies; Translations: [No Known Medication Allergies] Propensity to adverse reactions to drug (disorder) [facility] Repository Medications Current Medications Medication Drug Class(es) Dates Sig (Normalized) Sig (Original) acetaminophen 325 mg oral tablet (2 sources) take 2 tablets by mouth every six hours as needed for pain acetaminophen (TYLENOL) 325 MG tablet Take 650 mg by mouth every 6 hours as needed for Pain 0 Active etonogestrel 68 mg drug implant (3 sources) [...] End: 06-01-2019 ibuprofen (ADVIL;MOTRIN) tablet 800 mg ondansetron 4 mg disintegrating oral tablet (11 sources) Serotonin-3 Receptor Antagonist Start: 05-16-2024 End: 06-15-2024 take 1 tablet by mouth every six hours as needed for nausea and vomiting and nausea and nausea ondansetron ODT (Zofran-ODT) 4 MG disintegrating tablet Indications: Nausea Take 1 tablet (4 mg) by mouth every 6 (six) hours if needed for nausea or vomiting 30 tablet 2 05/16/2024 06/15/2024 Active Start: 01-07-2019 End: 01-07-2019 ondansetron (ZOFRAN-ODT) disintegrating tablet 4 mg Start: 01-07-2019 End: 05-24-2019 take 1 tablet by mouth every eight hours as needed for nausea ondansetron (ZOFRAN ODT) 4 MG disintegrating tablet Take 1 tablet by mouth every 8 hours as needed for Nausea 20 tablet 0 01/07/2019 05/24/2019 Discontinued (Therapy completed) MV-Min-Fe Fum-FA-DH A ( 1 PO) (20 sources) MV-Min- Fe Fum-FA-DHA ( 1 PO) Take 1 each by mouth Daily Active Completed/Discontinued Medications Medication Drug Class(es) Dates Sig (Normalized) Sig (Original) azithromycin 500 mg oral tablet (3 sources) Macrolide Antimicrobial Start: 05-18-2024 End: 06-13-2024 take 1 tablet by mouth once daily azithromycin (Zithromax) 500 MG tablet Indications: Mycoplasma infection Day 1: Take 2 tablets PO onetime dose; Day 2,3,4: Take 1 tablet daily 5 tablet 05/18/2024 06/13/2024 Discontinued (Therapy completed) 12 hr buPROPion hydrochloride 150 mg extended release oral tablet (10 sources) Aminoketone Start: 11-03-2023 End: 11-02-2024 buPROPion [...] medication twice daily.. 180 tablet 1 11/03/2023 04/17/2024 Discontinued citalopram 20 mg oral tablet (5 sources) [...] capsule 0 02/27/2018 05/24/2019 Discontinued (Therapy completed) Problems Active Problems Problem Classification Problem Date Documented Date Episodic/Chronic Anxiety disorders (1 source) Anxiety disorder, unspecified; Translations: [Anxiety disorder, unspecified] Onset: 06-24-2021 Chronic Contraceptive and procreative management (3 sources) Patient encounter status; Translations: [Encounter for other general counseling and advice on contraception] 03-05-2023 Episodic Immunizations and screening for infectious disease (4 sources) Contact with and (suspected) exposure to infections with a predominantly sexual mode of transmission; Translations: [Encounter for screening for infections with a predominantly sexual mode of transmission] Onset: 10-02-2021 05-16-2024 Episodic Menstrual disorders (20 sources) Amenorrhea; Translations: [Irregular menstruation, unspecified] Onset: 07-02-2022 Chronic Miscellaneous mental health disorders (2 sources) depression; Translations: [ depression] 11-03-2023 Episodic Mood disorders (1 source) Mood disorders; Translations: [Depression, unspecified] Onset: 05-30-2021 Nausea and vomiting (6 sources) Nausea with vomiting, unspecified; Translations: [Nausea] Onset: 08-29-2021 Episodic Other complications of (4 sources) H/O: premature delivery; Translations: [Supervision of other high risk pregnancies, unspecified trimester] 06-13-2024 Episodic Other female genital disorders (2 sources) Vaginal discharge; Translations: [Other specified noninflammatory disorders of vagina] 05-16-2024 Episodic Other nutritional; endocrine; and metabolic disorders (2 sources) Weight loss; Translations: [Abnormal weight loss] 11-03-2023 Episodic Other nutritional; endocrine; and metabolic disorders (1 source) Personal history of other endocrine, nutritional and metabolic disease; Translations: [Personal history of other endocrine, nutritional and metabolic disease] Onset: 02-11-2024 Episodic Other and delivery including normal (20 sources) Encounter for supervision of normal , unspecified, first trimester; Translations: [Encounter for test, result positive] Onset: 09-29-2021 Episodic Other screening for suspected conditions (not mental disorders or infectious disease) (14 sources) Encounter for suspected problem with amniotic cavity and membrane ruled out; Translations: [Encounter for screening for diabetes mellitus] Onset: 09-25-2021 Episodic Residual codes; unclassified (1 source) 8 weeks gestation of ; Translations: [8 weeks gestation of ] Onset: 02-11-2024 Episodic Residual codes; unclassified (2 sources) Gestation period, 14 weeks; Translations: [14 weeks gestation of ] 03-22-2024 Episodic Residual codes; unclassified (2 sources) Gestation period, 17 weeks; Translations: [17 weeks gestation of ] 04-17-2024 Episodic Residual codes; unclassified (2 sources) Gestation period, 21 weeks; Translations: [21 weeks gestation of ] 05-16-2024 Episodic Residual codes; unclassified (1 source) 22 weeks gestation of ; Translations: [22 weeks gestation of ] Onset: 05-24-2024 Episodic Residual codes; unclassified (2 sources) Gestation period, 25 weeks; Translations: [25 weeks gestation of ] 06-13-2024 Episodic Residual codes; unclassified (2 sources) Nicotine-filled electronic cigarette user; Translations: [Tobacco use] 06-13-2024 Episodic Residual codes; unclassified (2 sources) Gestation period, 27 weeks; Translations: [27 weeks gestation of ] 06-28-2024 Episodic Residual codes; unclassified (2 sources) Gestation period, 30 weeks; Translations: [30 weeks gestation of ] 07-13-2024 Episodic Residual codes; unclassified (2 sources) Gestation period, 31 weeks; Translations: [31 weeks gestation of ] 07-26-2024 Episodic Substance-related disorders (2 sources) Nicotine dependence, cigarettes, uncomplicated; Translations: [Nicotine dependence, unspecified, uncomplicated] Onset: 06-24-2021 Chronic Unclassified (2 sources) Sprain of right ankle; Translations: [Sprain of right ankle, unspecified ligament, initial encounter] Unclassified (1 source) Evaluation finding; Translations: [ examination or test, negative result] Unclassified (1 source) CONTACT W/AND (SUSP) EXPOS COVID-19; Translations: [CONTACT W/AND (SUSP) EXPOS COVID-19] Onset: 02-12-2022 Unclassified (1 source) Cold Like Symptoms Onset: 03-22-2023 Unclassified (1 source) Initial Visit Onset: 01-18-2024 Unclassified (1 source) Other underimmunization status; Translations: [Other underimmunization status] Onset: 01-20-2024 Unclassified (1 source) hx PTD Onset: 05-24-2024 Past or Other Problems Problem Classification Problem Date Documented Date Episodic/Chronic Fluid and electrolyte disorders (1 source) Dehydration; Translations: [DEHYDRATION] Onset: 09-02-2021 Episodic Nonspecific chest pain (1 source) Atypical chest pain; Translations: [Atypical chest pain] Episodic OB-related trauma to perineum and vulva (1 source) First degree perineal laceration during delivery; Translations: [FIRST DEG PERINEAL LAC DUR DELIV] Onset: 02-12-2022 Episodic Other circulatory disease (2 sources) Personal history of other diseases of the circulatory system; Translations: [Personal history of other diseases of the circulatory system] Onset: 02-11-2024 Episodic Other complications of ; puerperium affecting [...] COND 2ND TRI] Onset: 09-02-2021 Episodic Other complications of (1 source) Abnormal chromosomal and genetic finding on screening of mother; Translations: [Abnormal chromosomal and genetic finding on screening of mother] Onset: 08-04-2021 Episodic Other complications of (2 sources) Supervision of other high risk pregnancies, unspecified trimester; Translations: [Supervision of other high risk pregnancies, unspecified trimester] Onset: 02-11-2024 Episodic Other disorders of stomach and duodenum (1 source) Indigestion; Translations: [Dyspepsia] Episodic Other injuries and conditions due to external causes (1 source) Elevated urine levels of drugs, medicaments and biological substances; Translations: [Elevated urine levels of drugs, medicaments and biological substances] Onset: 02-11-2024 Episodic Other upper respiratory disease (1 source) [...] WEEKS GESTATION OF ] Onset: 09-02-2021 Episodic Residual codes; unclassified (2 sources) Personal history of other complications of , childbirth and the puerperium; Translations: [Personal history of other complications of , childbirth and the puerperium] Onset: 02-11-2024 Episodic Substance-related disorders (2 sources) Drug use complicating childbirth; Translations: [Cannabis use, unspecified, uncomplicated] Onset: 02-12-2022 Episodic Superficial injury; contusion (4 sources) Contusion of chest; Translations: [Contusion of left lower leg, initial encounter] Onset: 12-07-2021 Episodic Viral infection (1 source) Viral infection, unspecified; Translations: [Viral infection, unspecified] Onset: 03-22-2023 Episodic NEGATED: Highlighted row has been ruled out!Unclassified (1 source) No known active problems Results Test Name Value Interpretation Reference Range Facility No Panel InformationOrdered By: Radiologist Radiology on 08-03-2024 [facility] Work Phone: No Panel Informationon 08-03 Radiology Study observation (narrative) [facility] US OB BPP W NON-STRESS on 08-03-2024 [place] [address] Ultrasound Report Signed Patient: HAWK KING MR#: [id number] : 2000 Acct:[id number] Age/Sex: 23 / F ADM Date: 08/02/24 Loc: US Attending Dr: Eusebio Lam D.O. Ordering Physician: Eusebio Lam D.O. Date of Service: 08/02/24 Procedure(s): US OB BPP w non-stress Accession Number(s): [id number] cc: Eusebio Lam D.O.; Physician,Non-Staff M.DTaylor The [address] [address] Patient Name: HAWK KING MRN: [id number] date: 2000 Sex: F Assigned Patient Location: [facility] Current Patient Location: Accession/Order Number: [id number] Exam Date: 08/03/2024 08:23 Report Date: 08/03/2024 08:32 At the request of: EUSEBIO LAM DO Procedure: US OB BPP w non-stress CLINICAL INFORMATION: H/O LABOR O09.899 ULTRASOUND OB GROWTH COMPARISON: None There is a single live intrauterine gestation in cephalic presentation. There is cardiac and somatic activity. The heart rate [id number] beats per minute. The placenta is posterior. [...] lasting at least 30 seconds [Y] 2/2 DALTON: A single deepest vertical pocket of amniotic fluid greater than 2 cm [Y] 2/2 DALTON: 17.7 cm Total score: 8/8 IMPRESSION: UNREMARKABLE BIOPHYSICAL PROFILES. Impression dictated by: Jing Hunt M.D. 08/03/2024 8:32 AM Dictation Location: [place] [address] Electronically authenticated by: [id number] Y Date: 08/03/2024 08:32 Dictated By: Jing Hunt M.D. Signed By: 08/03/24 0835 DD/ TD/TT: Motor Boss: [facility] Radiology, Radiologist, - 08/03/2024 [place] [address] Ultrasound Report Signed Patient: HAWK KING MR#: [id number] : 2000 Acct:[id number] Age/Sex: 23 / F ADM Date: 08/02/24 Loc: US Attending Dr: Eusebio Lam D.O. Ordering Physician: Eusebio Lam D.O. Date of Service: 08/02/24 Procedure(s): US OB BPP w non-stress Accession Number(s): [id number] cc: Eusebio Lam D.O.; Physician,Non-Staff Sindy The [place] [address] Patient Name: HAWK KING MRN: [facility]:[id number] date: 2000 Sex: F Assigned Patient Location: [facility] Current Patient Location: Accession/Order Number: [id number] Exam Date: 08/03/2024 08:23 Report Date: 08/03/2024 08:32 At the request of: EUSEBIO LAM DO Procedure: US OB BPP w non-stress CLINICAL INFORMATION: H/O LABOR O09.899 ULTRASOUND OB GROWTH COMPARISON: None There is a single live intrauterine gestation in cephalic presentation. There is cardiac and somatic activity. The heart rate [id number] beats per minute. The placenta is posterior. [...] lasting at least 30 seconds [Y] 2/2 DALTON: A single deepest vertical pocket of amniotic fluid greater than 2 cm [Y] 2/2 DALTON: 17.7 cm Total score: 8/8 IMPRESSION: UNREMARKABLE BIOPHYSICAL PROFILES. Impression dictated by: Jing Hunt M.D. 08/03/2024 8:32 AM Dictation Location: [place] [address] Electronically authenticated by: [id number] Y Date: 08/03/2024 08:32 Dictated By: Jing Hunt M.D. Signed By: 08/03/2435 DD/ TD/TT: Motor Boss: [employer] OB GROWTHon 08-03-2024 [place] [address] Ultrasound Report Signed Patient: HAWK KING MR#: [id number] : 2000 Acct:[id number] Age/Sex: 23 / F ADM Date: 08/02/24 Loc: US Attending Dr: Eusebio Lam D.O. Ordering Physician: Eusebio Lam D.O. Date of Service: 08/02/24 Procedure(s): US OB growth Accession Number(s): [id number] cc: Eusebio Lam D.O.; Physician,Non-Staff Sindy The [place] [id number] Patient Name: HAWK KING MRN: [id number] date: 2000 Sex: F Assigned Patient Location: [facility] Current Patient Location: Accession/Order Number: [id number] Exam Date: 08/03/2024 08:23 Report Date: 08/03/2024 08:32 At the request of: EUSEBIO LAM DO Procedure: US OB BPP w non-stress CLINICAL INFORMATION: H/O LABOR O09.899 ULTRASOUND OB GROWTH COMPARISON: None There is a single live intrauterine gestation in cephalic presentation. There is cardiac and somatic activity. The heart rate beats per minute. The placenta is posterior. [...] lasting at least 30 seconds [Y] 2/2 DALTON: A single deepest vertical pocket of amniotic fluid greater than 2 cm [Y] 2/2 DALTON: 17.7 cm Total score: 8/8 IMPRESSION: UNREMARKABLE BIOPHYSICAL PROFILES. Impression dictated by: Jing Hunt M.D. 08/03/2024 8:32 AM Dictation Location: [place] [address] Electronically authenticated by: [id number] Y Date: 08/03/2024 08:32 Dictated By: Jing Hunt M.D. Signed By: 08/03/24 0835 DD/ 0832 TD/TT: Motor Boss: [facility] Radiology, Radiologist, - 08/03/2024 [place] [address] Ultrasound Report Signed Patient: HAWK KING MR#: [id number] : 2000 Acct:[id number] Age/Sex: 23 / F ADM Date: 08/02/24 Loc: US Attending Dr: Eusebio Lam D.O. Ordering Physician: Eusebio Lam D.O. Date of Service: 08/02/24 Procedure(s): US OB growth Accession Number(s): [id number] cc: Eusebio Lam D.O.; Physician,Non-Staff Sindy The [place] [address] Patient Name: HAWK KING MRN: [id number] date: 2000 Sex: F Assigned Patient Location: [facility] Current Patient Location: Accession/Order Number: [id number] Exam Date: 08/03/2024 08:23 Report Date: 08/03/2024 08:32 At the request of: EUSEBIO LAM DO Procedure: US OB BPP w non-stress CLINICAL INFORMATION: H/O LABOR O09.899 ULTRASOUND OB GROWTH COMPARISON: None There is a single live intrauterine gestation in cephalic presentation. There is cardiac and somatic activity. The heart rate [id number] beats per minute. The placenta is posterior. [...] lasting at least 30 seconds [Y] 2/2 DALTON: A single deepest vertical pocket of amniotic fluid greater than 2 cm [Y] 2/2 DALTON: 17.7 cm Total score: 8/8 IMPRESSION: UNREMARKABLE BIOPHYSICAL PROFILES. Impression dictated by: Jing Hunt M.D. 08/03/2024 8:32 AM Dictation Location: [place] [address] Electronically authenticated by: [id number] Y Date: 08/03/2024 08:32 Dictated By: Jing Hunt M.D. Signed By: 08/03/24 0835 DD/ TD/TT: Motor Boss: [facility] MLR HEMOGLOBIN A1Con 025 Glucose [Mass/Vol] 91 mg/dL [facility] HbA1c (Bld) [Mass fraction] 4.8 % 4.5 - 6.2 % [facility] Comment on above: ADA RECOMMENDED LIMI T 4.0 - 6.0 ADA THERAPEUTIC TARGET < 7.0 ACTION SUGGESTED > 7.0 [facility] Urinalysis macro (dipstick) panel (U)on 07-26-2024 Bilirubin, UA Negative Negative - 4(70) +++ mg/dL [facility] Blood, UA Negative Negative - 50 Jian/mcL [facility] Clarity, UA Clear [facility] Color, UA Yellow [facility] Glucose, UA Negative Negative - 1999(110) ++++ mg/dL [facility] Interpretation and review of laboratory results Abnormal [facility] Ketones, UA Negative Negative - 160(16) ++++ mg/dL [facility] Leukocytes, UA Positive Negative - 500+++ Heriberto/mcL [facility] Comment on above: small Nitrite, UA Negative Negative - Positive [facility] pH, UA 1 5 - 9 [facility] Protein, UA Positive Negative - 1999(20) ++++ mg/dL [facility] Comment on above: 30mg/dL Spec Grav, UA 1.02 1 - 1.03 [facility] Urobilinogen, UA 2.0 0.2 - 12 mg/dL [facility] US OB FOLLOW UP TRANSABDOMIN AL APPROACHon 06-28-2024 US OB FOLLOW UP TRANSABDOMINAL APPROACH EXAM: US OB FOLLOW UP TRANSABDOMINAL APPROACH [...] 09/13/2024. Interpreted by: Electronically signed by ANN-MARIE STONE II, MD, PHD at 30-Jun-2024 12:16:48 PM [facility] Normal Not Available Comment on above: Order Comment: US OB SCAN FOR GROWTH Estimated Date of Delivery: 09/21/24 Gestational Age as of 06/13/2024: 25w5d Urinalysis macro (dipstick) panel (U)on 06-28-2024 Bilirubin, UA Negative Negative - 4(70) +++ mg/dL [facility] Blood, UA Negative Negative - 50 Jian/mcL [facility]arity, [facility] Clear [facility] Color, UA Yellow [facility] Glucose, UA Negative Negative - 2000(110) ++++ mg/dL [facility] Interpretation and review of laboratory results Normal [facility] Ketones, UA Negative Negative - 160(16) ++++ mg/dL [facility] Leukocytes, UA Negative Negative - 500+++ Heriberto/mcL [facility] Nitrite, UA Negative Negative - Positive [facility] pH, UA 7 5 - 9 [facility] Protein, UA Negative Negative - 2000(20) ++++ mg/dL [facility] Spec Grav, UA 1.02 1 - 1.03 [facility] Urobilinogen, UA 0.2 0.2 - 12 mg/dL [facility] IGP,APTIMA HPV,AGE GDLNon AGE GDLN ACOG TESTING Note . [facility] Comment on above: TESTS RESULT FLAG UN ITS REF RANGE LAB Clinician Provided Cytology Information Source.............Cervix Other.............. No. of containers..01 ThinPrep Vial Age Algo ACOG Memo... - 01 FLAG LEGEND: L-Low Normal,H-High Normal,LL-Alert Low,HH-Alert High <-Panic Low,>-Panic High,A-Abnormal,AA-Critical Abnormal Performed at: 01 =G [address] [address] Katie Lopez MD, IGP, RFX APTIMA HPV ASCU Note . [facility] Comment on above: TESTS RESULT FLAG UN ITS REF RANGE LAB DIAGNOSIS: 02 NEGATIVE FOR INTRAEPITHELIAL LESION OR MALIGNANCY. Specimen adequacy: 02 Satisfactory for evaluation. Endocervical and/or squamous metaplastic cells (endocervical component) are present. Performed by: 02 Radha Cruz Microchip Specialist ([facility]) . 02 Note: Note 03 The [...] High,A-Abnormal,AA-Critical Abnormal Performed at: 02 KWCY[facility] [place] [facility] [address] [address] [place] [address] Fer Mehta MD, 03 WB [facility] [address] [address] Katie Lopez MD, Performed at: =G - [facility] [address] [id number] Manager Lpn: Katie Lopez MD, Phone: [phone] Performed at: [facility] [address] [place], [place] [id number] Manager Lpn: Fer Mehta MD, Phone: [phone] [facility] CERVIX [facility] RECURRENT VAGINITIS (HTRX)on 05-17-2024 ATOPOBIUM VAGINAE 19.357 Abnormal [facility] ATOPOBIUM VAGINAE Detected Abnormal [facility] BVAB 2,3 (BACTERIAL VAGINOSIS ASSOCIATED BACTERIA 2, 3); MOBILUNCUS SPP 16.919 Abnormal [facility] BVAB 2,3 (BACTERIAL VAGINOSIS ASSOCIATED BACTERIA 2, 3); MOBILUNCUS SPP Detected Abnormal [facility] Healthcare ALYSSA ALBICANS, PARAPSILOSIS, TROPICALIS 0 [facility] ALYSSA ALBICANS, PARAPSILOSIS, TROPICALIS Not detected [facility] ALYSSA GLABRATA 0 [facility] ALYSSA GLABRATA Not detected [facility] ALYSSA KRUSEI 0 [facility] ALYSSA KRUSEI Not detected [facility] CHLAMYDIA TRACHOMATIS 0 [facility] CHLAMYDIA TRACHOMATIS Not detected N [facility] ERMB, C; MEFA 19.876 Abnormal [facility] ERMB, C; MEFA Detected Abnormal [facility] GARDNERELLA VAGINALIS 24.591 Abnormal [facility] GARDNERELLA VAGINALIS Detected Abnormal [facility] Healthcare Interpretation and review of laboratory results Abnormal [facility] MEGASPHAERA (TYPES 1, 2) 0 [facility] MEGASPHAERA (TYPES 1, 2) Not detected [facility] MYCOPLASMA GENITALIUM 22.396 Abnormal [facility] Healthcare MYCOPLASMA GENITALIUM Detected Abnormal [facility] Healthcare NEISSERIA GONORRHOEAE 0 [facility] NEISSERIA GONORRHOEAE Not detected N [facility] TET B, TET M 20.657 Abnormal [facility] TET B, TET M Detected Abnormal [facility] TRICHOMONAS VAGINALIS 0 [facility] TRICHOMONAS VAGINALIS Not detected N [facility] Urinalysis macro (dipstick) panel (U)on 05-16-2024 Bilirubin, UA Negative Negative - 4(70) +++ mg/dL [facility] Blood, UA Negative Negative - 50 Jian/mcL [facility] Clarity, UA Clear [facility] Color, UA Yellow [facility] Glucose, UA Negative Negative - 2000(110) ++++ mg/dL [facility] Interpretation and review of laboratory results Abnormal [facility] Ketones, UA Negative Negative - 160(16) ++++ mg/dL [facility] Leukocytes, UA Trace Negative - 500+++ Heriberto/mcL [facility] Nitrite, UA Negative Negative - Positive [facility] pH, UA 7 5 - 9 [facility] Protein, UA Negative Negative - 2000(20) ++++ mg/dL [facility] Spec Grav, UA 1.02 1 - 1.[address] [facility] Urobilinogen, UA 0.2 0.2 - 12 mg/dL [facility] US OB 14+ WEEKS ANATOMY SCAN on 05-08-2024 US OB 14+ WEEKS ANATOMY SCAN EXAM: US OB 14+ WEEKS ANATOMY SCAN HISTORY: anatomy. COMPARISON: None available. TECHNIQUE: Two-dimensional transabdominal grayscale ultrasound imaging of the pelvis was performed. FINDINGS: Gestation: Single Presentation: Variable Cardiac Activity: 143 beats per minute Placental Location: Posterior with no sonographic abnormalities identified. Distance from Placental Tip to Cervix: 4.3 cm Cervical Length: 4.9 cm Amniotic Fluid: Appears adequate MEASUREMENTS: BPD: 4.9 cm EGA: 20 weeks 5 days HC: 18.6 cm EGA: 20 weeks 6 days AC: 16.8 cm EGA: 21 weeks 6 days FL: 3.6 cm EGA: 21 weeks 2 days HC/AC Ratio: 1.11 The gestational age by today's ultrasound is 21 weeks 1 days (+/- 10 days gestation). Estimated Weight: 426 grams, +/- 64 grams ( 0 lb 15 oz). Weight Percentile for gestational age: 89 % ANATOMY C-Spine: Unremarkable T-Spine: Unremarkable L-Spine: Unremarkable Sacrum: Unremarkable Four Chamber Heart: Unremarkable LVOT: Not visualized RVOT: Not visualized Stomach: Unremarkable Kidneys: Unremarkable Bladder: Unremarkable Diaphragm: Unremarkable Cord insertion: Unremarkable Cord vessels: Three Lateral Ventricles: Unremarkable Cerebellum: Unremarkable Cisterna Magna: Unremarkable Posterior Fossa: Unremarkable Right Femur: Unremarkable Left Femur: Unremarkable Right Tib/Fib: Unremarkable Left Tib/Fib: Unremarkable Right Rad/Ulnar: Unremarkable Left Rad/Ulnar: Unremarkable Right Humerus: Unremarkable Left Humerus: Unremarkable Nose/Lips: Unremarkable Orbits: Unremarkable IMPRESSION: 1. Single, live intrauterine gestation 20 weeks, 4 days by LMP. Today's ultrasound measurements correlate with a gestational age of 21 weeks 1 days. Estimated weight is 426 grams, +/- 64 grams ( 0 lb 15 oz) which correlates to 89 %. HONEY is 09/17/2024. 2. Unremarkable anatomy with limited visualization of the outflow tracts. A short-term follow-up ultrasound is recommended. Electronically Signed:Electronically signed by ANN-MARIE STONE II, MD, PHD at 09-May-2024 09:57:06 AM [facility] Normal Not Available Comment on above: Order Comment: US OB ANATOMY SINGLE W US OB CERVICAL LENGTH Estimated Date of Delivery: 09/21/24 Gestational Age as of 04/17/2024: 17w4d Urinalysis macro (dipstick) panel (U)Ordered By: Allegra Wallis on 04-17-2024 Bilirubin, UA Negative Negative - 4(70) +++ mg/dL [facility] Blood, UA Negative Negative - 50 Jian/mcL [facility] Clarity, UA Clear [facility] Color, UA Yellow [facility] Glucose, UA Negative Negative - 2000(110) ++++ mg/dL [facility] Interpretation and review of laboratory results Abnormal [facility] Ketones, UA Negative Negative - 160(16) ++++ mg/dL [facility] Leukocytes, UA Positive Negative - 500+++ Heriberto/mcL [facility] Comment on above: small Nitrite, UA Negative Negative - Positive [facility] pH, UA 7.5 5 - 9 [facility] Protein, UA Trace Negative - 2000(20) ++++ mg/dL [facility] Spec Grav, UA 1.02 1 - 1.[address] [facility] Urobilinogen, UA 1.0 0.2 - 12 mg/dL [facility] BOX TESTon 02-29-2024 BOX TEST SENT OUT [facility] BOX1 [facility] BOX2 02/29/2024 [facility] BOX TESTon 02-18-2024 BOX TEST SENT OUT [facility] BOX1 [facility] BOX2 02/18/24 [facility] US PREG LESS THAN 14 WKS SIN GLEon 02-11-2024 US PREG LESS THAN 14 WKS SINGLE US PREG LESS THAN 14 WKS SINGLE Pelvic ultrasound History:Dates viability Comparison:None Findings: Single live IUP at 8 weeks 2 days. [place]-rump length 2.1 cm. Yolk sac visualized. Heart rate 163 beats minute. The gestational sac is normal in morphology. Gestational sac fluid volume is normal for this very early gestational age. Placental morphology and location cannot be determined based on this early gestational age. Maternal ovaries unremarkable. No adnexal mass. Impression: * Single live IUP at 8 weeks 2 days. Finalized by Sharif Thomas MD on 02/11/2024 11:49 AM Normal [facility] US PREG LESS THAN 14 WKS WIT H TRANSVAGINALon 01-26-2024 US PREG LESS THAN 14 WKS WITH TRANSVAGINAL US PREG LESS THAN 14 WKS WITH TRANSVAGINAL US PREG LESS THAN 14 WKS WITH TRANSVAGINAL: 01/26/2024 9:30 AM Clinical: Check dates and viability. Real-time transabdominal and transvaginal sonography pelvis performed.. No comparison. There is a single intrauterine with cardiac activity 101 beats per minute. [place]-rump length of 2.6 mm corresponds to 5 [...] Roque MD on 01/26/2024 12:54 PM Normal [facility] ACUTE HEPATITIS PANELon 01-08 ANTI HCV W/PCR REFLX Non-Reactive Normal NRCT [facility] Comment on above: Result Comment: NEW TEST METHOD NOTE If recent infection suspected, recommend repeat testing (>2 months). Isdtmj-fh-qmxbsu ratio is <1.00. Performed By: #### C BC, CMP, 2532-0, 3084-1, 21251-9, 88263-2, AHP, 69313-5, 69096-9, 94359-3 #### [facility] ([id number]) [address] [place] [address] HEPATITIS A IGM Non-Reactive Normal NRCT [facility] Comment on above: Result Comment: NEW TEST METHOD Performed By: #### C BC, CMP, 2532-0, 3084-1, 72788-2, 86051-6, AHP, 20658-6, 39646-0, 54156-3 #### [facility] ([id number]) [address], [address] [place] [address] HEPATITIS B CORE IGM Non-Reactive Normal NRCT [facility] Comment on above: Result Comment: NEW TEST METHOD Performed By: #### C BC, CMP, 2532-0, 3084-1, 77348-7, 84487-5, AHP, 00120-7, 17695-6, 54521-7 #### [facility] ([id number]) [address], [address] [place] [address] HEPATITIS B SURF AG Non-Reactive Normal NRCT [facility] Comment on above: Result Comment: NEW TEST METHOD Performed By: #### C BC, CMP, 2532-0, 3084-1, 41817-2, 01428-1, AHP, 59978-3, 67750-8, 29648-7 #### [facility] ([id number]) [address], [address] [place] [address] COMPLETE BLOOD COUNTon 01-18 Erythrocyte distribution width (RBC) [Ratio] 13.2 % Normal 11.5-15.0 [facility] Comment on above: Performed By: #### C BC, CMP, 2532-0, 3084-1, 54117-0, 93596-8, AHP, 41083-1, 09165-8, 19536-5 #### [facility] ([id number]) [address], [address] [place] [address] Hematocrit (Bld) [Volume fraction] 41.8 % Normal 35-47 [facility] Comment on above: Performed By: #### C BC, CMP, 2532-0, 3084-1, 60384-3, 95517-0, AHP, 75795-4, 81305-3, 25828-3 #### [facility] ([id number]) [address], [address] [place] [address] Hemoglobin (Bld) [Mass/Vol] 14.3 g/dL Normal 11.7-15.5 [facility] Comment on above: Performed By: #### C BC, CMP, 2532-0, 3084-1, 87017-6, 47167-5, AHP, 75273-7, 32360-2, 05755-0 #### [facility] ([id number]) [address], [address] [place] [address] MCH (RBC) [Entitic mass] 31.7 pg Normal 27-34 [facility] Comment on above: Performed By: #### C BC, CMP, 2532-0, 3084-1, 50179-1, 42722-3, AHP, 03437-8, 64434-2, 80336-7 #### [facility] ([id number]) [address], [address] [place] [address] MCHC (RBC) [Mass/Vol] 34.3 g/dL Normal 32-36 [facility] Comment on above: Performed By: #### C BC, CMP, 2532-0, 3084-1, 19202-7, 02341-4, AHP, 53837-2, 95179-5, 15684-9 #### [facility] ([id number]) [address], [address] [place] [address] MCV (RBC) [Entitic vol] 92 fL Normal 80-100 [facility] Comment on above: Performed By: #### C BC, CMP, 2532-0, 3084-1, 65742-3, 52489-9, AHP, 52422-9, 95004-7, 13062-4 #### [facility] ([id number]) [address], [address] [place] [address] Platelet mean volume (Bld) [Entitic vol] 8.8 fL Normal 7-12 [facility] Comment on above: Performed By: #### C BC, CMP, 2532-0, 3084-1, 55172-5, 55564-0, AHP, 17910-6, 29510-0, 87426-3 #### [facility] ([id number]) [address], [address] [place] [address] Platelets (Bld) [#/Vol] 238 10*3/uL Normal 150-450 [facility] Comment on above: Performed By: #### C BC, CMP, 2532-0, 3084-1, 55830-2, 52054-4, AHP, 60306-5, 21104-6, 34633-6 #### [facility] ([id number]) [address], [address] [place] [address] RBC COUNT 4.52 X10E12/L Normal 3.80-5.20 [facility] Comment on above: Performed By: #### C BC, CMP, 2532-0, 3084-1, 08412-9, 22976-8, AHP, 42304-3, 08899-7, 21015-4 #### [facility] ([id number]) [address], [address] [place] [address] WBC (Bld) [#/Vol] 5.0 10*3/uL Normal 4.0-11.0 [facility] Comment on above: Performed By: #### C BC, CMP, 2532-0, 3084-1, 89554-4, 36463-0, AHP, 65287-0, 38948-9, 15802-1 #### [facility] ([id number]) [address], [address] [place] [address] COMPREHENSIVE METABOLIC PANE Eric 01-19-2024 Albumin [Mass/Vol] 4.4 g/dL Normal 3.2-5.3 [facility] Comment on above: Performed By: #### C BC, CMP, 2532-0, 3084-1, 22881-1, 64299-8, AHP, 82916-2, 17547-4, 78613-6 #### [facility] ([id number]) [address], [address] [place] [address] ALP [Catalytic activity/Vol] 42 U/L Normal 39-130 [facility] Comment on above: Performed By: #### C BC, CMP, 2532-0, 3084-1, 20965-7, 00384-3, AHP, 78542-5, 56165-4, 64323-8 #### [facility] ([id number]) [address], [address] [place] [address] ALT [Catalytic activity/Vol] 17 U/L Normal 0-31 [facility] Comment on above: Performed By: #### C BC, CMP, 2532-0, 3084-1, 77544-1, 17035-8, AHP, 33295-4, 04461-4, 88445-8 #### [facility] ([id number]) [address], [address] [place] [address] Anion gap [Moles/Vol] 9 mmol/L Normal 5-15 [facility] Comment on above: Performed By: #### C BC, CMP, 2532-0, 3084-1, 98140-5, 23765-7, AHP, 29009-8, 00981-8, 99323-7 #### [facility] ([id number]) [address], [address] [place] [address] AST [Catalytic activity/Vol] 17 U/L Normal 0-41 [facility] Comment on above: Performed By: #### C BC, CMP, 2532-0, 3084-1, 30899-2, 98141-8, AHP, 04350-9, 24699-3, 01105-3 #### [facility] ([id number]) [address], [address] [place] [address] Bilirubin [Mass/Vol] 0.6 mg/dL Normal 0.3-1.2 [facility] Comment on above: Performed By: #### C BC, CMP, 2532-0, 3084-1, 38625-9, 34748-7, AHP, 44995-0, 39133-1, 83594-0 #### [facility] ([id number]) [address], [address] [place] [address] Calcium [Mass/Vol] 8.9 mg/dL Normal 8.5-10.5 [facility] Comment on above: Performed By: #### C BC, CMP, 2532-0, 3084-1, 24503-0, 74674-3, AHP, 05572-7, 16671-0, 15462-9 #### [facility] ([id number]) [address], [address] [place] [address] Chloride [Moles/Vol] 104 mmol/L Normal 98-109 [facility] Comment on above: Performed By: #### C BC, CMP, 2532-0, 3084-1, 07477-2, 10527-4, AHP, 17532-2, 50665-5, 39842-5 #### [facility] ([id number]) [address], [address] [place] [address] CO2 [Moles/Vol] 28 mmol/L Normal 22-32 [facility] Comment on above: Performed By: #### C BC, CMP, 2532-0, 3084-1, 59473-5, 89133-9, AHP, 24972-8, 49912-9, 70398-5 #### [facility] ([id number]) [address], [address] [place] [address] Creatinine [Mass/Vol] 0.68 mg/dL Normal 0.40-1.00 [facility] Comment on above: Result Comment: METH OD TRACEABLE TO IDMS STANDARD Performed By: #### C BC, CMP, 2532-0, 3084-1, 78513-9, 89992-4, AHP, 67499-3, 85114-1, 09977-7 #### [facility] ([id number]) [address], [address] [place] [address] eGFR (CKD-EPI) NON-RACE DEPENDENT >90 Normal >59 [facility] Comment on above: Result Comment: Reported eGFR is based on the CKD-EPI 2020 equation that does not use a race coefficient. Performed By: #### C BC, CMP, 2532-0, 3084-1, 25677-3, 50365-5, AHP, 65863-5, 44806-9, 75473-6 #### [facility] ([id number]) [address], [address] [place] [address] Glucose [Mass/Vol] 84 mg/dL Normal 65-99 [facility] Comment on above: Performed By: #### C BC, CMP, 2532-0, 3084-1, 52203-6, 54273-0, AHP, 62524-2, 19980-5, 60160-7 #### [facility] ([id number]) [address], [address] [place] [address] Potassium [Moles/Vol] 3.4 mmol/L Low 3.5-5.0 [facility] Comment on above: Performed By: #### C BC, CMP, 2532-0, 3084-1, 40507-6, 23312-6, AHP, 87086-7, 93418-4, 06852-7 #### [facility] ([id number]) [address], [address] [place] [address] Protein [Mass/Vol] 7.0 g/dL Normal 6.0-8.0 [facility] Comment on above: Performed By: #### C BC, CMP, 2532-0, 3084-1, 50796-3, 88923-8, AHP, 63311-6, 39656-3, 35189-7 #### [facility] ([id number]) [address], [address] [place] [address] Sodium [Moles/Vol] 141 mmol/L Normal 134-146 [facility] Comment on above: Performed By: #### C BC, CMP, 2532-0, 3084-1, 95890-4, 29248-9, AHP, 13182-6, 20701-5, 11496-9 #### [facility] ([id number]) [address] [place] [address] Urea nitrogen [Mass/Vol] 9 mg/dL Normal 5-23 [facility] Comment on above: Performed By: #### C BC, CMP, 2532-0, 3084-1, 93408-9, 04775-4, AHP, 22311-3, 66363-5, 35006-7 #### [facility] ([id number]) [address], [address] [place] [address] Creatinine (U) [Mass/Vol]on 01-19-2024 URINE CREATININE,RDM 153.52 mg/dL Normal [facility] Comment on above: Performed By: #### 6 556-5 #### [facility] ([id number]) [address] [place] [address] DRUG SCREEN, URINEon 024 AMPHETAMINE/METHAMP Negative Normal NEG [facility] Comment on above: Result Comment: AMPH /METH screening cut off = 1000 ng/mL Performed By: #### 6 556-5 #### [facility] ([id number]) [address] [place] [address] BARBITURATES Negative Normal NEG [facility] Comment on above: Result Comment: Basilia iturates screening cut off value = 200 ng/mL Performed By: #### 6 556-5 #### [facility] ([id number]) [address] [place] [address] BENZODIAZEPINES Negative Normal NEG [facility] Comment on above: Result Comment: Miguelangel odiazepines screening cut off value = 200 ng/mL Performed By: #### 6 556-5 #### [facility] ([id number]) [address] [place] [address] CANNABINOIDS Positive Abnormal NEG [facility] Comment on above: Result Comment: Conf irmation available upon request. Cannabinoids/THC screening cut off value = 50 ng/mL Performed By: #### 6 556-5 #### [facility] ([id number]) [address] [place] [address] COCAINE METABOLITE Negative Normal NEG [facility] Comment on above: Result Comment: Coca ine screening cut off value = 300 ng/mL Performed By: #### 6 556-5 #### [facility] ([id number]) [address] [place] [address] ECSTASY Negative Normal NEG [facility] Comment on above: Result Comment: Ecst asy screening cut off value = 500 ng/mL This report is intended for use in clinical monitoring or management of patients. Performed By: #### 6 556-5 #### [facility] ([id number]) [address] [place] [address] METHADONE Negative Normal NEG [facility] Comment on above: Result Comment: Meth adone screening cut off value = 300 ng/mL. Performed By: #### 6 556-5 #### [facility] ([id number]) [address] [place] [address] OPIATES Negative Normal NEG [facility] Comment on above: Result Comment: Opia memo screening cut off value = 300 ng/mL NOTE: This test is used for the detection of codeine, hydrocodone (>1000 ng/mL), morphine and hydromorphone (>900 ng/mL) in urine. Performed By: #### 6 556-5 #### [facility] ([id number]) [address] [place], [place] [address] OXYCODONE Negative Normal NEG [facility] Comment on above: Result Comment: Oxyc odone screening cut off value = 300 ng/mL NOTE: This test is used for the detection of oxycodone and oxymorphone in urine. Performed By: #### 6 556-5 #### [facility] ([id number]) [address] [place] [address] PHENCYCLIDINE Negative Normal NEG [facility] Comment on above: Result Comment: Phen cyclidine screening cut off value = 25 ng/mL Performed By: #### 6 556-5 #### [facility] ([id number]) [address] [place] [address] HCG.beta subunit IA 3rd IS Q non 01-19-2024 HCG.beta subunit Qn 6499 m[IU]/mL Normal [facility] Comment on above: Result Comment: NEW REFERENCE [...] nontrophoblastic neoplasms. Performed By: #### C BC, [facility], 3662-0, 3084-1, 99365-3, 07814-7, AHP, 32766-2, 91999-7, 45825-0 #### [facility] ([id number]) [address] [place] [address] HIV 1+2 Ab+HIV1 p24 Ag IA Ql on 01-19-2024 HIV 1 and 2 Ab/Ag Screen Non-Reactive Normal NRCT [facility] Comment on above: Result Comment: NEW [...] By: #### C BC, CMP, 2532-0, 3084-1, 98013-9, 14705-4, AHP, 71406-1, 93515-2, 45729-9 #### [facility] ([id number]) [address] [place] [address] LDH [Catalytic activity/Vol] on 01-19-2024 LDH 163 U/L Normal 100-235 [facility] Comment on above: Performed By: #### C BC, CMP, 2532-0, 3084-1, 90630-1, 20247-1, AHP, 69793-7, 27108-5, 20411-9 #### [facility] ([id number]) [address] [place] [address] PROTEIN CREAT RATIOon 2023 RANDOM URINE PROTEIN 100 mg/L Normal <120 [facility] Comment on above: Performed By: #### 6 556-5 #### [facility] ([id number]) [address] [place] [address], [place] [address] U/PRO/RAIL TRACK MAINTAINER RATIO CALC 0.06 Normal <0.2 [facility] Comment on above: Result Comment: Neph rotic Syndrome is associated with ratios >3.5 Performed By: #### 6 556-5 #### [facility] ([id number]) [address] [place] [address] URINE CREATININE,RDM 155.31 mg/dL Normal [facility] Comment on above: Performed By: #### 6 556-5 #### [facility] ([id number]) [address] [place] [address] Rubella virus Ab Ql (S)on RUBELLA IMMUNE IgG 2.5 AI Normal [facility] Comment on above: Result Comment: Interpretation-------- <0.8 NEGATIVE-considered Not Immune 0.8-0.9 EQUIVOCAL-consider retesting with new specimen >0.9 POSITIVE-considered Immune Performed By: #### 6 556-5 #### [facility] ([id number]) [address] [place] [address] T. pallidum IgG+IgM IA Ql (S )on 01-19-2024 Syphilis Total 0.8 AI Normal 0.0-0.8 [facility] Comment on above: Result Comment: NON REACTIVE No serologic evidence of infection to Treponema pallidum (syphilis). Repeat testing may be considered in patients with suspected acute or primary syphilis in 2 to 4 weeks. Performed By: #### 6 556-5 #### [facility] ([id number]) [address] [place] [address] URIC ACIDon 01-19-2024 Urate [Mass/Vol] 2.1 mg/dL Low 2.6-7.2 [facility] Comment on above: Performed By: #### C BC, CMP, 2532-0, 3084-1, 47302-3, 72932-1, AHP, 04924-8, 21689-5, 43737-8 #### [facility] ([id number]) [address] [place] [address] URINALYSISon 01-19-2024 Bilirubin Ql (U) Negative Normal NEG [facility] Comment on above: Performed By: #### U A #### [facility] ([id number]) [address], [address] [place] [address] BLOOD/HGB Negative Normal NEG [facility] Comment on above: Performed By: #### U A #### [facility] ([id number]) [address] [place] [address] Color (U) YELLOW Normal YELLOW [facility] Comment on above: Performed By: #### U A #### [facility] ([id number]) [address], [address] [place] [address] Glucose Ql (U) Negative Normal NEG [facility] Comment on above: Performed By: #### U A #### [facility] ([id number]) [address] [place] [address] Ketones Ql (U) Negative Normal NEG [facility] Comment on above: Performed By: #### U A #### [facility] ([id number]) [address] [place] [address] Leukocyte esterase Test strip Ql (U) Negative Normal NEG [facility] Comment on above: Performed By: #### U A #### [facility] ([id number]) [address] [place] [address] MUCOUS PRESENT Abnormal NONE [facility] Comment on above: Performed By: #### U A #### [facility] ([id number]) [address] [place] [address] Nitrite Ql (U) Negative Normal NEG [facility] Comment on above: Performed By: #### U A #### [facility] ([id number]) [address], [address] [place] [address] pH (U) 6.5 [pH] Normal 5.0-8.5 [facility] Comment on above: Performed By: #### U A #### [facility] ([id number]) [address] [place] [address] [address] [place] [address] Protein Ql (U) Trace Abnormal NEG [facility] Comment on above: Performed By: #### U A #### [facility] ([id number]) [address] [place] [address] [address] [place] [address] R.B.CELLS 1 /hpf Normal 0-5 [facility] Comment on above: Performed By: #### U A #### [facility] ([id number]) [address] [place] [address] Specific gravity (U) [Rel density] 1.017 Normal 1.003-1.035 [facility] Comment on above: Performed By: #### U A #### [facility] ([id number]) [address] [place] [address] [address] [place] [address] SQUAMOUS EPITHELIUM 8 /hpf High 0-5 [facility] Comment on above: Performed By: #### U A #### [facility] ([id number]) [address] [place] [address] TURBIDITY HAZY Abnormal CLEAR [facility] Comment on above: Performed By: #### U A #### [facility] ([id number]) [address] [place] [address] [address] [place] [address] Urobilinogen (U) [Mass/Vol] mg/dL Normal <1.1 [facility] Comment on above: Performed By: #### U A #### [facility] ([id number]) [address] [place] [address] W.B.CELLS 2 /hpf Normal 0-5 [facility] Comment on above: Performed By: #### U A #### [facility] ([id number]) [address] [place] [address] URINE CULTUREon 01-19-2024 Bacteria identified Cx Nom (U) CULTURE RESULTS NO GROWTH AT <1000 CFU/mL Normal [facility] Comment on above: Performed By: #### 6 556-5 #### [facility] ([id number]) [address] [place] [address] VZV IgG IA Ql (S)on 01-19-20 24 VARICELLA IgG 0.2 AI Normal <0.9 [facility] Comment on above: Result Comment: Interpretation-------- <0.9 Negative 0.9 - 1.0 Equivocal >1.0 Positive Performed By: #### 6 556-5 #### [facility] ([id number]) [address] [place] [address] ABORhon 01-11-2024 ABO and Rh group Nom (Bld) Hx Check: Not Found Anti-A: 4+ Anti-B: 0 Anti-D: 4+ DCon: NT A1: 0 B: 4+ ABORh Interp: A POS Invalid Interpretation Code [facility] Comment on above: Performed By: #### 1 [id number], [id number], [id number] #### [facility] (DEFAULT) [address] [place] [address] ABORh Retypeon 01-11-2024 ABO and Rh group Nom (Bld) Ordered by Discern. Anti-A: 4+ Anti-B: 0 Anti-D: 4+ DCon: NT A1: 0 B: 4+ ABORh Retype: A POS Invalid Interpretation Code [facility] Comment on above: Performed By: #### 1 [id number], [id number], [id number] #### [facility] (DEFAULT) [address] [place] [address] ED Clinical Summaryon 2023 ED Clinical Summary [facility] - Emergency Department [address] [place] [address] ED Clinical Summary PERSON INFORMATION Name: HAWK KING Age: 23 Years Sex: FEMALE : 2000 MRN: Acct#: Visit Reason: Test; PREGANT, WANT TEST DONE, SPOTTING BLOOD Arrival: 01/11/2024 10:11:43 Discharge: 01/11/2024 11:59:00 LOS: 000 01:48 Check In: 01/11/2024 10:11:43 Checkout:01/11/2024 11:59:00 Address: [address] [place] [address] PCP: ANN-MARIE ASH MD PROVIDER INFORMATION Provider [...] Home PATIENT EDUCATION INFORMATION Instructions: Bacterial Vaginosis, [id number] Follow-Up: With: Address: When: MIHIR DEL VALLE, ANN-MARIE Dc [address] [place] [address] Within 3 to 5 days DIAGNOSIS: 1:Vaginal bleeding during ; 2:Bacterial vaginosis in ; 3:; Other specified bacterial agents as the cause of diseases classified elsewhere Patient Understands: Yes - Patient/family/caregi john verbalizes understanding of instructions given Comment: Normal [facility] ED Note-Nursingon 01-11-2024 ED Note-Nursing Ambulates with [...] 2023. Dr. Laguerre in for exam. Normal [facility] ED Patient Summaryon 024 ED Patient Summary [facility] - Emergency Department [address] [place] [address] PATIENT DISCHARGE INSTRUCTIONS Patient Information Name: HAWK [...] of diseases classified elsewhere (B96.89) (Z34.90) Test ([id number]) Vaginal bleeding during (O46.90) The Pharmacy at [facility] is open Wednesday through Wednesday from 9A [...] alcohol and/or drug addiction problems; contact the [facility] 31/08 Crisis Hotline -Text 4HOPE to 543805. If you received any narcotics, sedation, or [...] sign any legal documents With: Address: When: MIHIR DEL VALLE, ANN-MARIE Dc [address] [place] [address] Within 3 to 5 days Medication Information: The exam and treatment you received today in the [facility] Emergency Department were for an urgent problem and are not intended as complete care. It is important for you to follow up with a doctor, nurse practitioner, or physician?s clinical physician assistant for ongoing care. If your symptoms become [...] so we can reach you if necessary. [facility] Emergency Department has provided you with a complete list of medications post discharge. Please inform your photo producer/provider of your visit and for further instruction on these medications. Any specific questions regarding your chronic medications and dosages should be discussed with your primary care physician(s) and/or pharmacist. New Medications [facility] [address], [place] [id number], [phone] metroNIDAZOLE (metroNIDAZOLE 500 mg oral tablet) 1 [...] the antibiotic as prescribed. Follow-up with your FREIGHT RATE ANALYST to review this emergency department visit. Return [...] infection can cau (more content not included)... Normal [facility] Test Urine 1on U Preg Positive [facility] Comment on above: Performed By: #### 1 [id number], [id number], [id number] #### [facility] (DEFAULT) [address] [place] [address] U Preg Internal Control Pass [facility] Comment on above: Performed By: #### 1 [id number], [id number], [id number] #### [facility] (DEFAULT) [address] [place] [address] UA [id number] 01-11-2024 UA Bacteria 1+ [facility] Comment on above: Order Comment: Urina lysis Microscopic order added on by [employer] Expert Rules system. Performed By: #### 1 [id number], [id number], [id number] #### [facility] (DEFAULT) [address] [place] [address] UA Comment. Clue Cells Seen [facility] Comment on above: Order Comment: Urina lysis Microscopic order added on by [employer] Expert Rules system. Performed By: #### 1 [id number], [id number], [id number] #### [facility] (DEFAULT) [address] [place] [address] UA RBC 0-2 [facility] Comment on above: Order Comment: Urina lysis Microscopic order added on by [employer] Expert Rules system. Performed By: #### 1 [id number], [id number], [id number] #### [facility] (DEFAULT) [address] [place] [address] UA Squam Epi Few [facility] Comment on above: Order Comment: Urina lysis Microscopic order added on by Discern Expert Rules system. Performed By: #### 1 [id number], [id number], [id number] #### [facility] (DEFAULT) [address] [place] [address] UA WBC 3-5 [facility] Comment on above: Order Comment: Urina lysis Microscopic order added on by [employer] Rules system. Performed By: #### 1 [id number], [id number], [id number] #### [facility] (DEFAULT) [address] [place] [address] UA w Culture if Ind Standard on 01-11-2024 Breakpoint UA [facility] Comment on above: Performed By: #### 1 [id number], [id number], [id number] #### [facility] (DEFAULT) [address] [place] [address] Color (U) Yellow [facility] Comment on above: Performed By: #### 1 [id number], [id number], [id number] #### [facility] (DEFAULT) [address] [place] [address] Culture? Indicated Invalid Interpretation Code [facility] Comment on above: Result Comment: Resu lt created by rule GL_MAGR_ADD_UA_CULT Performed By: #### 1 [id number], [id number], [id number] #### [facility] (DEFAULT) [address] [place] [address] Glucose (U) [Mass/Vol] Negative Normal [facility] Comment on above: Performed By: #### 1 [id number], [id number], [id number] #### [facility] (DEFAULT) [address] [place] [address] Ketones Ql (U) Negative Normal [facility] Comment on above: Performed By: #### 1 [id number], [id number], [id number] #### [facility] (DEFAULT) [address] [place] [address] Micro? Indicated Invalid Interpretation Code [facility] Comment on above: Result Comment: Resu lt created by rule GL_MAGR_ADD_UA_MICRO Result created by rule GL_MAGR_ADD_UA_MICRO Performed By: #### 1 [id number], [id number], [id number] #### [facility] (DEFAULT) [address] [place] [address] UA Bilirubin Negative Normal [facility] Comment on above: Performed By: #### 1 [id number], [id number], [id number] #### [facility] (DEFAULT) [address] [place] [address] UA Blood Negative Normal NEGATIVE [facility] Comment on above: Performed By: #### 1 [id number], [id number], [id number] #### [facility] (DEFAULT) [address] [place] [address] UA Clarity CLEAR Normal CLEAR [facility] Comment on above: Performed By: #### 1 [id number], [id number], [id number] #### [facility] (DEFAULT) [address] [place] [address] UA Leuk Est SMALL Abnormal NEGATIVE [facility] Comment on above: Performed By: #### 1 [id number], [id number], [id number] #### [facility] (DEFAULT) [address] [place] [address] UA Nitrite Negative Normal NEGATIVE [facility] Comment on above: Performed By: #### 1 [id number], [id number], [id number] #### [facility] (DEFAULT) [address] [place] [address] UA pH 6.5 Normal 5-8 [facility] Comment on above: Performed By: #### 1 [id number], [id number], [id number] #### [facility] (DEFAULT) [address] [place] [address] UA Protein Negative Normal NEGATIVE [facility] Comment on above: Performed By: #### 1 [id number], [id number], [id number] #### [facility] (DEFAULT) [address] [place] [address] UA Spec Grav 1.025 Normal 1.001-1.035 [facility] Comment on above: Performed By: #### 1 [id number], [id number], [id number] #### [facility] (DEFAULT) [address] [place] [address] UA Urobilinogen 1.0 mg/dL Normal 0.2-1.0 [facility] Comment on above: Performed By: #### 1 [id number], [id number], [id number] #### [facility] (DEFAULT) [address] [place] [address] Urine Source Clean Catch Normal [facility] Comment on above: Performed By: #### 1 [id number], [id number], [id number] #### [facility] (DEFAULT) [address] [place] [address] hCG Quantitativeon hCG Quantitative 149.6 mIU/mL High 0.0-0.6 [facility] Comment on above: Result Comment: Post -Menopausal Reference Range is: 0.1-11.6 mIU/mL Performed By: #### 1 [id number], [id number], [id number] #### [facility] (DEFAULT) [address] [place] [address] ALL CBC WITH AUTO DIFFon BASOPHILS ABSOLUTE AUTO 0.[address] [facility] Basophils/100 WBC (Bld) 0.5 % 0.2 - 2.0 % [facility] Eosinophils/100 WBC (Bld) 3.9 % 0.9 - 7.0 % [facility] Erythrocyte distribution width (RBC) [Ratio] 12.5 % 11.0 - 15.0 % [facility] Hematocrit (Bld) [Volume fraction] 42.3 % 36.0 - 48.0 % [facility] Hemoglobin (Bld) [Mass/Vol] 14.4 g/dL 12.0 - 16.0 g/dL [facility] IMMATURE GRANULOCYTES ABS AUTO 0.[address] [facility] Immature granulocytes/100 WBC (Bld) 0.2 % 0.0 - 0.5 % [facility] LYMPHOCYTES ABSOLUTE AUTO 2.[address] [facility] Lymphocytes/100 WBC (Bld) 35.7 % 20.5 - 60.0 % [facility] MCH (RBC) [Entitic mass] 31.3 pg 26.7 - 34.0 pg [facility] MCHC (RBC) [Mass/Vol] 34.0 g/dL 29.9 - 35.2 g/dL [facility] MCV (RBC) [Entitic vol] 92.0 fL 81.0 - 99.0 fL [facility] MONOCYTES ABSOLUTE AUTO 0.[address] [facility] Monocytes/100 WBC (Bld) 7.2 % 1.7 - 12.0 % [facility] NEUTROPHILS ABSOLUTE AUTO 3.[address] [facility] Neutrophils/100 WBC (Bld) 52.5 % 43.0 - 75.0 % [facility] Platelet mean volume (Bld) [Entitic vol] 10.1 fL 9.5 - 13.5 fL [facility] TBH EO # 0.[address] [facility]H PLT 281 [facility] TB RBC 4.60 [facility] WBC 6.5 [facility] CLINISYNC [facility] Outside Recordson 03-23-2023 Outside Records [id number]# 1.00OTGTIFF Normal [facility] RAPID STREP SCR NURSINGon S. pyogenes Ag EIA Ql (Throat) Negative Normal NEG [facility] Comment on above: Performed By: #### 6 [id number] #### [facility] ([id number]) [address] [place] [address], [place] [address] SARS/FLU A+B/RSV by NAAT/Mol ecularon 03-22-2023 SARS/FLU [...] operators who are performing tests using either Notizza or Br[employer] Reality systems and is limited to laboratories that [...] repeat. Fact Sheet for Healthcare Providers: https://www.fda.gov/m edia/700595/download Fact Sheet for Patients: https://www.fda.gov/m edia/509754/download Normal [facility] Comment on above: Performed By: #### C OVFLR #### [facility] ([id number]) [address] [place] [address], [place] [address] [place] PREG TVon 07-03-2022 US PREG TV [...] weeks 4 days Electronically authenticated by: CHEMA LEE Date: 2022-07-03 17:20 Normal [facility] PREG QUANT HCGon 06-04-2022 HCG QUANT 1906 mIU/mL Normal [facility] Comment on above: Performed By: #### C BC #### [facility] [address] [place] [address] Dr. Qi Benedict HCG RANGE SEE BELOW Normal [facility] Comment on above: Result Comment: 5-50 0.2-1 WEEK 50-500 1-2 WEEKS 100-5,000 2-3 WEEKS 500-10,000 3-4 WEEKS 1,000-50,000 4-5 WEEKS 10,000-100,000 5-6 WEEKS 15,000-200,000 6-8 WEEKS 10,000-100,000 2-3 MONTHS Performed By: #### C BC #### [facility] [address] [place] [address] Dr. Qi Benedict PREG QUANT HCGon 05-29-2022 HCG QUANT 118 mIU/mL Normal [facility] Comment on above: Performed By: #### D RUGRPD #### [facility] [address] [place] [address] Dr. Qi Benedict HCG RANGE SEE BELOW Normal [facility] Comment on above: Result Comment: 5-50 0.2-1 WEEK 50-500 1-2 WEEKS 100-5,000 2-3 WEEKS 500-10,000 3-4 WEEKS 1,000-50,000 4-5 WEEKS 10,000-100,000 5-6 WEEKS 15,000-200,000 6-8 WEEKS 10,000-100,000 2-3 MONTHS Performed By: #### D RUGRPD #### [facility] [address] [place] [address] Dr. Qi Benedict CANNABINOID (THC) CONFIRMATI ON, URINEon 02-10-2022 Cannabinoid Positive Abnormal [facility] Comment on above: Performed By: #### D RUGRPD #### [facility] [address] [place] [address] Dr. Qi Sales THC GC/MS Conf >750 Normal Cutoff=10 Th e [facility] Comment on above: Performed By: #### D RUGRPD #### [facility] [address] [place] [address] Dr. Qi Benedict CBC AUTO DIFFon 01-30-2022 BASO # 0.0 103/ul Normal 0.0-0.1 [facility] Comment on above: Performed By: #### D RUGRPD #### [facility] [address] [place] [address] Dr. Qi Benedict Basophils/100 WBC (Bld) 0.3 % Normal 0.2-2.0 [facility] Comment on above: Performed By: #### D RUGRPD #### [facility] [address] [place] [address] Dr. Qi Benedict EO # 0.2 103/ul Normal 0.0-0.7 [facility] Comment on above: Performed By: #### D RUGRPD #### [facility] [address] [place] [address] Dr. Qi Benedict Eosinophils/100 WBC (Bld) 1.4 % Normal 0.9-7.0 [facility] Comment on above: Performed By: #### D RUGRPD #### [facility] [address] [place] [address] Dr. Qi Benedict Erythrocyte distribution width (RBC) [Ratio] 14.0 % Normal 11.0-15.0 [facility] Comment on above: Performed By: #### D RUGRPD #### [facility] [address] [place] [address] Dr. Qi Benedict Hematocrit (Bld) [Volume fraction] 32.1 % Critically low 36.0-48.0 [facility] Comment on above: Performed By: #### D RUGRPD #### [facility] [address] [address] [address] Qi Benedict Hemoglobin (Bld) [Mass/Vol] 10.6 g/dL Critically low 12.0-16.0 [facility] Comment on above: Performed By: #### D RUGRPD #### [facility] [address] [address] [address] Qi Benedict IG # 0.04 10e3/ul Critically high 0.00-0.03 [facility] Comment on above: Performed By: #### D RUGRPD #### [facility] [address] [address] [address] Qi Benedict IG % 0.3 % Normal 0.0-0.5 [facility] Comment on above: Performed By: #### D RUGRPD #### [facility] [address] [address] [address] Qi Benedict LYMPH # 2.4 103/ul Normal 1.2-3.8 [facility] Comment on above: Performed By: #### D RUGRPD #### [facility] [address] [address] [address] Qi Benedict Lymphocytes/100 WBC (Bld) 19.9 % Critically low 20.5-60.0 [facility] Comment on above: Performed By: #### D RUGRPD #### [facility] [address] [address] [address] Qi Benedict MANUAL DIFF REQ NO Normal [facility] Comment on above: Performed By: #### D RUGRPD #### [facility] [address] [address] [address] Qi Benedict MCH (RBC) [Entitic mass] 30.1 pg Normal 26.7-34.0 [facility] Comment on above: Performed By: #### D RUGRPD #### [facility] [address] [place] [address] Dr. Qi Benedict MCHC (RBC) [Mass/Vol] 33.0 g/dL Normal 29.9-35.2 [facility] Comment on above: Performed By: #### D RUGRPD #### [facility] [address] [address] [address] Qi Benedict MCV (RBC) [Entitic vol] 91.2 fL Normal 81.0-99.0 [facility] Comment on above: Performed By: #### D RUGRPD #### [facility] [address] [address] [address] Qi Benedict MONO # 1.0 103/ul Critically high 0.3-0.8 [facility] Comment on above: Performed By: #### D RUGRPD #### [facility] [address] [place] [address] Dr. Qi Benedict Monocytes/100 WBC (Bld) 8.6 % Normal 1.7-12.0 [facility] Comment on above: Performed By: #### D RUGRPD #### [facility] [address] [place] [address] Dr. Qi Benedict NEUT # 8.3 103/ul Critically high 1.4-6.5 [facility] Comment on above: Performed By: #### D RUGRPD #### [facility] [address] [place] [address] Dr. Qi Benedict Neutrophils/100 WBC (Bld) 69.5 % Normal 43.0-75.0 [facility] Comment on above: Performed By: #### D RUGRPD #### [facility] [address] [place] [address] Dr. Qi Benedict Platelet mean volume (Bld) [Entitic vol] 10.3 fL Normal 9.5-13.5 [facility] Comment on above: Performed By: #### D RUGRPD #### [facility] [address] [place] [address] Dr. Qi Benedict PLT 229 103/ul Normal 150-450 [facility] Comment on above: Performed By: #### D RUGRPD #### [facility] [address] [place] [address] Dr. Qi Benedict RBC 3.52 106/ul Critically low 4.20-5.40 [facility] Comment on above: Performed By: #### D RUGRPD #### [facility] [address] [place] [address] Dr. Qi Benedict WBC 12.0 103/ul Critically high 4.0-11.0 [facility] Comment on above: Performed By: #### D RUGRPD #### [facility] [address] [place] [address] Dr. Qi Benedict CBC AUTO DIFFon 01-29-2022 BASO # 0.0 103/ul Normal 0.0-0.1 [facility] Comment on above: Performed By: #### D RUGRPD #### [facility] [address] [place] [address] Dr. Qi Benedict Basophils/100 WBC (Bld) 0.2 % Normal 0.2-2.0 [facility] Comment on above: Performed By: #### D RUGRPD #### [facility] [address] [place] [address] Dr. Qi Benedict EO # 0.1 103/ul Normal 0.0-0.7 [facility] Comment on above: Performed By: #### D RUGRPD #### [facility] [address] [place] [address] Dr. Qi Benedict Eosinophils/100 WBC (Bld) 1.4 % Normal 0.9-7.0 [facility] Comment on above: Performed By: #### D RUGRPD #### [facility] [address] [place] [address] Dr. Qi Benedict Erythrocyte distribution width (RBC) [Ratio] 13.5 % Normal 11.0-15.0 [facility] Comment on above: Performed By: #### D RUGRPD #### [facility] [address] [place] [address] Dr. Qi Benedict Hematocrit (Bld) [Volume fraction] 35.9 % Critically low 36.0-48.0 [facility] Comment on above: Performed By: #### D RUGRPD #### [facility] [address] [place] [address] Dr. Qi Benedict Hemoglobin (Bld) [Mass/Vol] 11.9 g/dL Critically low 12.0-16.0 [facility] Comment on above: Performed By: #### D RUGRPD #### [facility] [address] [address] [address] Qi Benedict IG # 0.03 10e3/ul Normal 0.00-0.03 [facility] Comment on above: Performed By: #### D RUGRPD #### [facility] [address] [address] [address] Qi Benedict IG % 0.3 % Normal 0.0-0.5 [facility] Comment on above: Performed By: #### D RUGRPD #### [facility] [address] [place] [address] Dr. Qi Benedict LYMPH # 1.5 103/ul Normal 1.2-3.8 [facility] Comment on above: Performed By: #### D RUGRPD #### [facility] [address] [place] [address] Dr. Qi Benedict Lymphocytes/100 WBC (Bld) 14.8 % Critically low 20.5-60.0 [facility] Comment on above: Performed By: #### D RUGRPD #### [facility] [address] [place] [address] Dr. Qi Benedict MANUAL DIFF REQ NO Normal [facility] Comment on above: Performed By: #### D RUGRPD #### [facility] [address] [address] [address] Qi Benedict MCH (RBC) [Entitic mass] 30.1 pg Normal 26.7-34.0 [facility] Comment on above: Performed By: #### D RUGRPD #### [facility] [address] [address] [address] Qi Benedict MCHC (RBC) [Mass/Vol] 33.1 g/dL Normal 29.9-35.2 [facility] Comment on above: Performed By: #### D RUGRPD #### [facility] [address] [address] [address] Qi Benedict MCV (RBC) [Entitic vol] 90.7 fL Normal 81.0-99.0 [facility] Comment on above: Performed By: #### D RUGRPD #### [facility] [address] [place] [address] Dr. Qi Benedict MONO # 0.8 103/ul Normal 0.3-0.8 [facility] Comment on above: Performed By: #### D RUGRPD #### [facility] [address] [place] [address] Dr. Qi Benedict Monocytes/100 WBC (Bld) 7.4 % Normal 1.7-12.0 [facility] Comment on above: Performed By: #### D RUGRPD #### [facility] [address] [place] [address] Dr. Qi Benedict NEUT # 7.7 103/ul Critically high 1.4-6.5 [facility] Comment on above: Performed By: #### D RUGRPD #### [facility] [address] [place] [address] Dr. Qi Benedict Neutrophils/100 WBC (Bld) 75.9 % Critically high 43.0-75.0 [facility] Comment on above: Performed By: #### D RUGRPD #### [facility] [address] [place] [address] Dr. Qi Benedict Platelet mean volume (Bld) [Entitic vol] 10.7 fL Normal 9.5-13.5 [facility] Comment on above: Performed By: #### D RUGRPD #### [facility] [address] [place] [address] Dr. Qi Benedict PLT 247 103/ul Normal 150-450 [facility] Comment on above: Performed By: #### D RUGRPD #### [facility] [address] [place] [address] Dr. Qi Benedict RBC 3.96 106/ul Critically low 4.20-5.40 [facility] Comment on above: Performed By: #### D RUGRPD #### [facility] [address] [address] [address] Qi Benedict WBC 10.2 103/ul Normal 4.0-11.0 [facility] Comment on above: Performed By: #### D RUGRPD #### [facility] [address] [place] [address] Dr. Qi Benedict Covid-19 PCR ([facility])on 01-09 SARS-CoV-2 (COVID-19) RNA STEFANIE+probe Ql (Unsp spec) Not detected Normal NOT DETECTED [facility] Comment on above: Result Comment: When [...] for this test is supported by the [place] of Health and Human Service's declaration that [...] used). Performed By: #### A FPMAT #### [facility] [address] [place] [address] Dr. Qi Benedict DRUG SCREEN RAPID (URINE)on 01-29-2022 AMP Negative Normal NEGATIVE [facility] Comment on above: Performed By: #### D RUGRPD #### [facility] [address] [place] [address] Dr. Qi Benedict BAR Negative Normal NEGATIVE [facility] Comment on above: Performed By: #### D RUGRPD #### [facility] [address] [place] [address] Dr. Qi Benedict BUP Negative Normal NEGATIVE [facility] Comment on above: Performed By: #### D RUGRPD #### [facility] [address] [place] [address] Dr. Qi Benedict BZO Negative Normal NEGATIVE [facility] Comment on above: Performed By: #### D RUGRPD #### [facility] [address] [place] [address] Dr. Qi Benedict GIN Negative Normal NEGATIVE [facility] Comment on above: Performed By: #### D RUGRPD #### [facility] [address] [place] [address] Dr. Qi Benedict CUT-OFFS SEE BELOW Normal [facility] Comment on above: Result Comment: AMP [...] ng/mL Performed By: #### D RUGRPD #### [facility] [address] [place] [address] Dr. Qi Benedict DRUG CUT HEADER DRUG CLASS TEST SYSTEM CUT-OFF CONCENTRATIONS ARE FOLLOWS: Normal [facility] Comment on above: Performed By: #### D RUGRPD #### [facility] [address] [place] [address] Dr. Qi Benedict mAMP Negative Normal NEGATIVE [facility] Comment on above: Performed By: #### D RUGRPD #### [facility] [address] [place] [address] Dr. Qi Benedict MTD Negative Normal NEGATIVE [facility] Comment on above: Performed By: #### D RUGRPD #### [facility] [address] [place] [address] Dr. Qi Benedict OPI Negative Normal NEGATIVE [facility] Comment on above: Performed By: #### D RUGRPD #### [facility] [address] [address] [address] Qi Benedict OXY Negative Normal NEGATIVE [facility] Comment on above: Performed By: #### D RUGRPD #### [facility] [address] [address] [address] Qi Benedict PCP Negative Normal NEGATIVE [facility] Comment on above: Performed By: #### D RUGRPD #### [facility] [address] [address] [address] Qi Benedict PPX Negative Normal NEGATIVE [facility] Comment on above: Performed By: #### D RUGRPD #### [facility] [address] [place] [address] Dr. Qi Benedict TCA Negative Normal NEGATIVE [facility] Comment on above: Performed By: #### D RUGRPD #### [facility] [address] [place] [address] Dr. Qi Benedict THC Positive Abnormal NEGATIVE [facility] Comment on above: Performed By: #### D RUGRPD #### [facility] [address] [place] [address] Dr. Qi Benedict TYPE AND SCREENon 01-29-2022 TYPE AND SCREEN Negative Normal [facility] Comment on above: Performed By: #### T NS #### [facility] [address] [place] [address] Dr. Qi Benedict GROUP B STREP CULTUREon 01-08 S. agalactiae Ag Ql (Unsp spec) Culture Observations: NEGATIVE FOR GROUP B STREPTOCOCCUS. Normal [facility] Comment on above: Performed By: #### G BSCX #### [facility] [address] [place] [address] Dr. Qi Benedict AMNISUREon 01-04-2022 AMNISURE Negative Normal NEGATIVE [facility] Comment on above: Performed By: #### D RUGRPD #### [facility] [address] [place] [address] Dr. Qi Benedict UA (CLEAN/CATCH) SALES AGENT BUSINESS SERVICES/MICRO I F IND.on 01-04-2022 Bilirubin Ql (U) Negative Normal NEGATIVE [facility] Comment on above: Performed By: #### A FPMAT #### [facility] [address] [place] [address] Dr. Qi Benedict Clarity (U) CLEAR Normal CLEAR [facility] Comment on above: Performed By: #### A FPMAT #### [facility] [address] [place] [address] Dr. Qi Benedict Color (U) YELLOW Normal YELLOW [facility] Comment on above: Performed By: #### A FPMAT #### [facility] [address] [place] [address] Dr. Qi Benedict Glucose Ql (U) 100 mg/dl Abnormal NEGATIVE [facility] Comment on above: Performed By: #### A FPMAT #### [facility] [address] [place] [address] Dr. Qi Benedict Hemoglobin Ql (U) Negative Normal NEGATIVE [facility] Comment on above: Performed By: #### A FPMAT #### [facility] [address] [place] [address] Dr. Qi Benedict Ketones Ql (U) 15 mg/dl Abnormal NEGATIVE [facility] Comment on above: Performed By: #### A FPMAT #### [facility] [address] [place] [address] Dr. Qi Benedict LEUKOCYTES Negative Normal NEGATIVE [facility] Comment on above: Performed By: #### A FPMAT #### [facility] [address] [place] [address] Dr. Qi Benedict Nitrite Ql (U) Negative Normal NEGATIVE [facility] Comment on above: Performed By: #### A FPMAT #### [facility] [address] [place] [address] Dr. Qi Benedict pH (U) 6.0 [pH] Normal 5-9 [facility] Comment on above: Performed By: #### A FPMAT #### [facility] [address] [place] [address] Dr. Qi Benedict SPEC GRAVITY 1.025 Normal 1.005-<=1.02 5 [facility] Comment on above: Performed By: #### A FPMAT #### [facility] [address] [address] [address] Qi Benedict UA PROTEIN TRACE Normal NEGATIVE/ TRACE [facility] Comment on above: Performed By: #### A FPMAT #### [facility] [address] [address] [address] Qi Benedict UR MICRO IND NOT INDICATED Normal [facility] Comment on above: Performed By: #### A FPMAT #### [facility] [address] [address] [address] Qi Benedict Urobilinogen Qn (U) 0.2 {Yessi'U}/dL Normal 0.2 - 1. 0 [facility] Comment on above: Performed By: #### A FPMAT #### [facility] [address] [place] [address] Dr. Qi Benedict US PREG GROWTHon 12-26-2021 [...] LYSSA STEWART Date: 2021-12-26 06:06 Normal [facility] US PREG PLACENTAon US PREG PLACENTA EXAMINATION: US PREG BIOPHY [...] Unremarkable posterior placenta. Electronically authenticated by: LYSSA STEWART Date: 2021 12:43 Normal [facility] AFP MATERNAL FOR SPINA BIFID Aon 10-05-2021 AFP MoM 1.33 Normal [facility] Comment on above: Performed By: #### A FPMAT #### [facility] [address] [address] [address] Qi Benedict AFP Value 78.0 ng/mL Normal [facility] Comment on above: Performed By: #### A FPMAT #### [facility] [address] [address] [address] Qi Benedict AFP, Serum for Spina Bifida Report Normal [facility] Comment on above: Performed By: #### A FPMAT #### [facility] [address] [address] [address] Qi Benedict Comment Comment Normal [facility] Comment on above: Result Comment: Pinky Tatum, Ph.D., [facility] Director . References: Available Upon Request. . Multiples Of Median Cutoffs For AFP Elevations Lundberg 2.5 Black 2.8 IDD 2.0 Twins 4.5 Abbreviation Definitions IDD - Insulin Dep Diabetes OSBR - Open Spina Bifida Risk . For further inquiries contact [employer] [facility] at [phone]. . This test was developed and its performance characteristics determined by [employer]. It has not been cleared or approved by the Food and Drug Administration. Performed By: #### A FPMAT #### [facility] [address] [address] [address] Qi Benedict Gest Age Collection Date 20.7 weeks [facility] Comment on above: Performed By: #### A FPMAT #### [facility] [address] [address] [address] Qi Benedict Gestat, Age Based on HONEY Normal [facility] Comment on above: Result Comment: 05/2022 Recalculations are not recommended when gestational dating by LMP and ultrasound are within 10 days. Performed By: #### A FPMAT #### [facility] [address] [place] [address] Dr. Qi Benedict Insulin Dep Diabetes No Normal [facility] Comment on above: Performed By: #### A FPMAT #### [facility] [address] [address] [address] Qi Benedict Interpretation Comment Normal [facility] Comment on above: Result Comment: Inte rpretation: [...] Customer Services to discuss available options. The [employer] recommends amniocentesis be offered to women age 35 and older. Performed By: #### A FPMAT #### [facility] [address] [place] [address] Dr. Qi Benedict [age] Normal [facility] Comment on above: Performed By: #### A FPMAT #### [facility] [address] [place] [address] Dr. Qi Benedict Multiple Gestation No Normal [facility] Comment on above: Performed By: #### A FPMAT #### [facility] [address] [place] [address] Dr. Qi Benedict OSBR Risk 1 IN 4399 Normal [facility] Comment on above: Performed By: #### A FPMAT #### [facility] [address] [place] [address] Dr. Qi Bendeict PDF . Normal [facility] Comment on above: Performed By: #### A FPMAT #### [facility] [address] [address] [address] Qi Benedict Race Normal [facility] Comment on above: Performed By: #### A FPMAT #### [facility] [address] [place] [address] Dr. Qi Benedict Test Results: Negative Normal [facility] Comment on above: Performed By: #### A FPMAT #### [facility] [address] [address] [address] Qi Benedict HEP B SURFACE ANTIGEN SCREEN on 09-30-2021 HBsAg Screen Negative Normal Negative [facility] Comment on above: Performed By: #### C BC #### [facility] [address] [place] [address] Dr. Qi Benedict HEPATITIS C VIRUS AB W/ REFL EX QUANTon 09-30-2021 HCV AB <0.1 Normal 0.0-0.9 [facility] Comment on above: Performed By: #### H CVPCRR #### [facility] [address] [place] [address] Dr. Qi Benedict Interpretation: Comment Normal [facility] Comment on above: Result Comment: Nega tive Not infected with HCV, unless recent infection is suspected or other evidence exists to indicate HCV infection. Performed By: #### H CVPCRR #### [facility] [address] [place] [address] Dr. Qi Benedict HIV 1 AND 2 WITH REFLEXon HIV Screen 4th Generation wRfx Non-Reactive Normal Non Reactive [facility] Comment on above: Result Comment: HIV Negative HIV-1/HIV-2 antibodies and HIV-1 p24 antigen were NOT detected. There is no laboratory evidence of HIV infection. Performed By: #### D RUGRPD #### [facility] [address] [place] [address] Dr. Qi Benedict RPR QUANTon 09-30-2021 Rapid Plasma Reagin, Quant Non-Reactive Normal NonRea<1:1 [facility] Comment on above: Result Comment: Plea se Note: This test does not meet current guidelines for screening and diagnosis of syphilis. This test is intended for following treatment response in patients being treated for syphilis infection. To screen for syphilis infection, a reflex cascade that includes both RPR and a treponema-specific assay should be utilized, such as Treponema pallidum (Syphilis) Screening [place] (602231) or Rapid Plasma Reagin (RPR) Test With Reflex to Quantitative RPR and Confirmatory Treponema pallidum Antibodies (540204). Performed By: #### R PRQ #### [facility] [address] [place] [address] Dr. Qi Benedict RUBELLA AB IGGon 09-30-2021 Rubella Antibodies, IgG 1.44 index Normal Immune >0.99 [facility] Comment on above: Result Comment: Non- immune <0.90 Equivocal 0.90 - 0.99 Immune >0.99 Performed By: #### D RUGRPD #### [facility] [address] [place] [address] Dr. Qi Benedict VARICELLA IGG ABon Varicella Zoster IgG <135 Critically low Immune >165 [facility] Comment on above: Result Comment: Nega tive <135 Equivocal 135 - 165 Positive >165 A positive result generally indicates exposure to the pathogen or administration of specific immunoglobulins, but it is not indication of active infection or stage of disease. Performed By: #### V ARCEL #### [facility] [address] [place] [address] Dr. Qi Benedict CBC AUTO DIFFon 09-29-2021 BASO # 0.0 103/ul Normal 0.0-0.1 [facility] Comment on above: Performed By: #### C BC #### [facility] [address] [place] [address] Dr. Qi Benedict Basophils/100 WBC (Bld) 0.3 % Normal 0.2-2.0 [facility] Comment on above: Performed By: #### C BC #### [facility] [address] [place] [address] Dr. Qi Benedict EO # 0.1 103/ul Normal 0.0-0.7 [facility] Comment on above: Performed By: #### C BC #### [facility] [address] [place] [address] Dr. Qi Benedict Eosinophils/100 WBC (Bld) 1.1 % Normal 0.9-7.0 [facility] Comment on above: Performed By: #### C BC #### [facility] [address] [place] [address] Dr. Qi Benedict Erythrocyte distribution width (RBC) [Ratio] 12.7 % Normal 11.0-15.0 [facility] Comment on above: Performed By: #### C BC #### [facility] [address] [place] [address] Dr. Qi Benedict Hematocrit (Bld) [Volume fraction] 35.7 % Critically low 36.0-48.0 [facility] Comment on above: Performed By: #### C BC #### [facility] [address] [place] [address] Dr. Qi Benedict Hemoglobin (Bld) [Mass/Vol] 11.9 g/dL Critically low 12.0-16.0 [facility] Comment on above: Performed By: #### C BC #### [facility] [address] [place] [address] Dr. Qi Benedict IG # 0.04 10e3/ul Critically high 0.00-0.03 [facility] Comment on above: Performed By: #### C BC #### [facility] [address] [place] [address] Dr. Qi Benedict IG % 0.4 % Normal 0.0-0.5 [facility] Comment on above: Performed By: #### C BC #### [facility] [address] [place] [address] Dr. Qi Benedict LYMPH # 1.5 103/ul Normal 1.2-3.8 [facility] Comment on above: Performed By: #### C BC #### [facility] [address] [place] [address] Dr. Qi Benedict Lymphocytes/100 WBC (Bld) 14.1 % Critically low 20.5-60.0 [facility] Comment on above: Performed By: #### C BC #### [facility] [address] [place] [address] Dr. Qi Benedict MANUAL DIFF REQ NO Normal [facility] Comment on above: Performed By: #### C BC #### [facility] [address] [place] [address] Dr. Qi Benedict MCH (RBC) [Entitic mass] 31.6 pg Normal 26.7-34.0 [facility] Comment on above: Performed By: #### C BC #### [facility] [address] [place] [address] Dr. Qi Benedict MCHC (RBC) [Mass/Vol] 33.3 g/dL Normal 29.9-35.2 [facility] Comment on above: Performed By: #### C BC #### [facility] [address] [place] [address] Dr. Qi Benedict MCV (RBC) [Entitic vol] 94.7 fL Normal 81.0-99.0 [facility] Comment on above: Performed By: #### C BC #### [facility] [address] [place] [address] Dr. Qi Benedict MONO # 0.5 103/ul Normal 0.3-0.8 [facility] Comment on above: Performed By: #### C BC #### [facility] [address] [place] [address] Dr. Qi Benedict Monocytes/100 WBC (Bld) 5.0 % Normal 1.7-12.0 [facility] Comment on above: Performed By: #### C BC #### [facility] [address] [place] [address] Dr. Qi Benedict NEUT # 8.2 103/ul Critically high 1.4-6.5 [facility] Comment on above: Performed By: #### C BC #### [facility] [address] [place] [address] Dr. Qi Benedict Neutrophils/100 WBC (Bld) 79.1 % Critically high 43.0-75.0 [facility] Comment on above: Performed By: #### C BC #### [facility] [address] [address] [address] Qi Benedict Platelet mean volume (Bld) [Entitic vol] 9.7 fL Normal 9.5-13.5 [facility] Comment on above: Performed By: #### C BC #### [facility] [address] [address] [address] Qi Benedict PLT 200 103/ul Normal 150-450 [facility] Comment on above: Performed By: #### C BC #### [facility] [address] [address] [address] Qi Benedict RBC 3.77 106/ul Critically low 4.20-5.40 [facility] Comment on above: Performed By: #### C BC #### [facility] [address] [place] [address] Dr. Qi Benedict WBC 10.4 103/ul Normal 4.0-11.0 [facility] Comment on above: Performed By: #### C BC #### [facility] [address] [place] [address] Dr. Qi Benedict CULTURE URINEon 09-29-2021 CULTURE URINE Culture Observations : NO GROWTH. Normal [facility] Comment on above: Performed By: #### A FPMAT #### [facility] [address] [place] [address] Dr. Qi Benedict GLYCOHEMOGLOBIN A1Con 2021 ADA RECOMMENDATION SEE BELOW Normal [facility] Comment on above: Result Comment: ADA RECOMMENDED LIMIT 4.0 - 6.0 ADA THERAPEUTIC TARGET < 7.0 ACTION SUGGESTED > 7.0 Performed By: #### D RUGRPD #### [facility] [address] [place] [address] Dr. Qi Benedict Glucose [Mass/Vol] 82 mg/dL Normal [facility] Comment on above: Performed By: #### D RUGRPD #### [facility] [address] [place] [address] Dr. Qi Benedict HbA1c (Bld) [Mass fraction] 4.5 % Normal 4.5-6.2 [facility] Comment on above: Performed By: #### D RUGRPD #### [facility] [address] [address] [address] Qi Benedict TANESHA BOX TEST PT SEND OUTo n 09-29-2021 SENT TO REF LAB 09/29/2021 Normal [facility] Comment on above: Performed By: #### A FPMAT #### [facility] [address] [address] [address] Qi Benedict TYPE AND SCREENon 09-29-2021 TYPE AND SCREEN Negative Normal [facility] Comment on above: Performed By: #### A FPMAT #### [facility] [address] [address] [address] Qi Benedict US PREG ANATOMY SINGLEon US PREG ANATOMY SINGLE EXAMINATION: US P REG ANATOMY SINGLE HISTORY: screening COMPARISON: No relevant [...] LYSSA STEWART Date: 2021-09-25 22:35 Normal [facility] CBC AUTO DIFFon 08-29-2021 BASO # 0.0 103/ul Normal 0.0-0.1 [facility] Comment on above: Performed By: #### C BC #### [facility] [address] [address] [address] Qi Benedict Basophils/100 WBC (Bld) 0.3 % Normal 0.2-2.0 [facility] Comment on above: Performed By: #### C BC #### [facility] [address] [address] [address] Qi Benedict EO # 0.1 103/ul Normal 0.0-0.7 [facility] Comment on above: Performed By: #### C BC #### [facility] [address] [address] [address] Qi Benedict Eosinophils/100 WBC (Bld) 1.1 % Normal 0.9-7.0 [facility] Comment on above: Performed By: #### C BC #### [facility] [address] [address] [address] Qi Benedict Erythrocyte distribution width (RBC) [Ratio] 13.2 % Normal 11.0-15.0 [facility] Comment on above: Performed By: #### C BC #### [facility] [address] [address] [address] Qi Benedict Hematocrit (Bld) [Volume fraction] 36.5 % Normal 36.0-48.0 [facility] Comment on above: Performed By: #### C BC #### [facility] [address] [address] [address] Qi Benedict Hemoglobin (Bld) [Mass/Vol] 12.4 g/dL Normal 12.0-16.0 [facility] Comment on above: Performed By: #### C BC #### [facility] Laboratory [address] [address] [address] Qi Benedict IG # 0.03 10e3/ul Normal 0.00-0.03 [facility] Comment on above: Performed By: #### C BC #### [facility] [address] [place] [address] Dr. Qi Benedict IG % 0.3 % Normal 0.0-0.5 [facility] Comment on above: Performed By: #### C BC #### [facility] [address] [place] [address] Dr. Qi Benedict LYMPH # 1.3 103/ul Normal 1.2-3.8 [facility] Comment on above: Performed By: #### C BC #### [facility] [address] [place] [address] Dr. Qi Benedict Lymphocytes/100 WBC (Bld) 13.4 % Critically low 20.5-60.0 [facility] Comment on above: Performed By: #### C BC #### [facility] [address] [place] [address] Dr. Qi Benedict MANUAL DIFF REQ NO Normal [facility] Comment on above: Performed By: #### C BC #### [facility] [address] [place] [address] Dr. Qi Benedict MCH (RBC) [Entitic mass] 31.2 pg Normal 26.7-34.0 [facility] Comment on above: Performed By: #### C BC #### [facility] [address] [place] [address] Dr. Qi Benedict MCHC (RBC) [Mass/Vol] 34.0 g/dL Normal 29.9-35.2 [facility] Comment on above: Performed By: #### C BC #### [facility] [address] [place] [address] Dr. Qi Benedict MCV (RBC) [Entitic vol] 91.9 fL Normal 81.0-99.0 [facility] Comment on above: Performed By: #### C BC #### [facility] [address] [place] [address] Dr. Qi Benedict MONO # 0.5 103/ul Normal 0.3-0.8 [facility] Comment on above: Performed By: #### C BC #### [facility] [address] [address] [address] Qi Benedict Monocytes/100 WBC (Bld) 5.3 % Normal 1.7-12.0 [facility] Comment on above: Performed By: #### C BC #### [facility] [address] [address] [address] Qi Benedict NEUT # 7.6 103/ul Critically high 1.4-6.5 [facility] Comment on above: Performed By: #### C BC #### [facility] [address] [place] [address] Dr. Qi Benedict Neutrophils/100 WBC (Bld) 79.6 % Critically high 43.0-75.0 [facility] Comment on above: Performed By: #### C BC #### [facility] [address] [place] [address] Dr. Qi Benedict Platelet mean volume (Bld) [Entitic vol] 9.5 fL Normal 9.5-13.5 [facility] Comment on above: Performed By: #### C BC #### [facility] [address] [place] [address] Dr. Qi Benedict PLT 229 103/ul Normal 150-450 [facility] Comment on above: Performed By: #### C BC #### [facility] [address] [place] [address] Dr. Qi Benedict RBC 3.97 106/ul Critically low 4.20-5.40 [facility] Comment on above: Performed By: #### C BC #### [facility] [address] [place] [address] Dr. Qi Benedict WBC 9.5 103/ul Normal 4.0-11.0 [facility] Comment on above: Performed By: #### C BC #### [facility] [address] [place] [address] Dr. Qi Benedict [facility] SARS-CoV-2 (COVID-19) RNA STEFANIE+probe Ql (Unsp spec) Not detected Normal NOT DETECTED [facility] Comment on above: Result Comment: When [...] for this test is supported by the [place] of Health and Human Service's declaration that [...] used). Performed By: #### C VDTBH #### [facility] [address] [place] [address] Dr. Qi Benedict ER URINE PROFILEon 2 Bilirubin Ql (U) Negative Normal NEGATIVE [facility] Comment on above: Performed By: #### D RUGRPD #### [facility] [address] [place] [address] Dr. Qi Benedict Clarity (U) CLEAR Normal CLEAR [facility] Comment on above: Performed By: #### D RUGRPD #### [facility] [address] [place] [address] Dr. Qi Benedict Color (U) YELLOW Normal YELLOW [facility] Comment on above: Performed By: #### D RUGRPD #### [facility] [address] [place] [address] Dr. Qi Benedict ERUAHD A micrscopic examination will be performed if indicated. Normal [facility] Comment on above: Performed By: #### D RUGRPD #### [facility] [address] [place] [address] Dr. Qi Benedict Glucose Ql (U) Negative Normal NEGATIVE [facility] Comment on above: Performed By: #### D RUGRPD #### [facility] [address] [address] [address] Qi Benedict Hemoglobin Ql (U) Negative Normal NEGATIVE [facility] Comment on above: Performed By: #### D RUGRPD #### [facility] [address] [address] [address] Qi Benedict Ketones Ql (U) Negative Normal NEGATIVE [facility] Comment on above: Performed By: #### D RUGRPD #### [facility] [address] [place] [address] Dr. Qi Benedict LEUKOCYTES Negative Normal NEGATIVE [facility] Comment on above: Performed By: #### D RUGRPD #### [facility] [address] [place] [address] Dr. Qi Benedict Nitrite Ql (U) Negative Normal NEGATIVE [facility] Comment on above: Performed By: #### D RUGRPD #### [facility] [address] [place] [address] Dr. Qi Benedict pH (U) 6.0 [pH] Normal 5-9 [facility] Comment on above: Performed By: #### D RUGRPD #### [facility] [address] [place] [address] Dr. Qi Benedict SPEC GRAVITY 1.025 Normal 1.005-<=1.02 5 [facility] Comment on above: Performed By: #### D RUGRPD #### [facility] [address] [place] [address] Dr. Qi Benedict UA PROTEIN Negative Normal NEGATIVE/ TRACE [facility] Comment on above: Performed By: #### D RUGRPD #### [facility] [address] [place] [address] Dr. Qi Benedict UR MICRO IND NOT INDICATED Normal [facility] Comment on above: Performed By: #### D RUGRPD #### [facility] [address] [place] [address] Dr. Qi Benedict Urobilinogen Qn (U) 0.2 {Yessi'U}/dL Normal 0.2 - 1. 0 [facility] Comment on above: Performed By: #### D RUGRPD #### [facility] [address] [address] [address] Qi Benedict PROF 14(COMP METB)on 022 Albumin [Mass/Vol] 2.9 g/dL Critically low 3.4-5.0 [facility] Comment on above: Performed By: #### D RUGRPD #### [facility] [address] [address] [address] Qi Benedict Albumin/Globulin [Mass ratio] 0.8 {ratio} Normal [facility] Comment on above: Performed By: #### D RUGRPD #### [facility] [address] [address] [address] Qi Benedict ALP [Catalytic activity/Vol] 43 U/L Critically low 46-116 [facility] Comment on above: Performed By: #### D RUGRPD #### [facility] [address] [address] [address] Qi Benedict ALT [Catalytic activity/Vol] 13 U/L Critically low 14-59 [facility] Comment on above: Performed By: #### D RUGRPD #### [facility] [address] [address] [address] Qi Benedict Anion gap [Moles/Vol] 10.6 mmol/L Normal [facility] Comment on above: Performed By: #### D RUGRPD #### [facility] [address] [address] [address] Qi Benedict AST [Catalytic activity/Vol] 9 U/L Critically low 15-37 [facility] Comment on above: Performed By: #### D RUGRPD #### [facility] [address] [address] [address] Qi Benedict Bilirubin [Mass/Vol] 0.4 mg/dL Normal 0.2-1.0 [facility] Comment on above: Performed By: #### D RUGRPD #### [facility] [address] [address] [address] Qi Benedict Calcium [Mass/Vol] 8.5 mg/dL Normal 8.5-10.1 [facility] Comment on above: Performed By: #### D RUGRPD #### [facility] [address] [address] [address] Qi Benedict Chloride [Moles/Vol] 104 mmol/L Normal 98-107 [facility] Comment on above: Performed By: #### D RUGRPD #### [facility] [address] [address] [address] Qi Benedict CO2 [Moles/Vol] 27.0 mmol/L Normal 21.0-32.0 [facility] Comment on above: Performed By: #### D RUGRPD #### [facility] [address] [address] [address] Qi Benedict Creatinine [Mass/Vol] 0.61 mg/dL Normal 0.55-1.02 [facility] Comment on above: Performed By: #### D RUGRPD #### [facility] [address] [address] [address] Qi Benedict EGFR-AF BELGIAN >60 Normal >=60 [facility] Comment on above: Performed By: #### D RUGRPD #### [facility] [address] [address] [address] Qi Benedict EGFR-NON AF BELGIAN >60 Normal >=60 [facility] Comment on above: Performed By: #### D RUGRPD #### [facility] [address] [address] [address] Qi Benedict Globulin (S) [Mass/Vol] 3.6 g/dL Normal [facility] Comment on above: Performed By: #### D RUGRPD #### [facility] [address] [address] [address] Qi Benedict Glucose [Mass/Vol] 83 mg/dL Normal 74-106 [facility] Comment on above: Performed By: #### D RUGRPD #### [facility] [address] [address] [address] Qi Benedict Potassium [Moles/Vol] 3.6 mmol/L Normal 3.5-5.1 [facility] Comment on above: Performed By: #### D RUGRPD #### [facility] [address] [place], [place] [address] Dr. Qi Benedict Protein [Mass/Vol] 6.5 g/dL Normal 6.4-8.2 [facility] Comment on above: Performed By: #### D RUGRPD #### [facility] [address] [place], [place] [address] Dr. Qi Benedict Sodium [Moles/Vol] 138 mmol/L Normal 136-145 [facility] Comment on above: Performed By: #### D RUGRPD #### [facility] [address] [place], [place] [address] Dr. Qi Benedict Urea nitrogen [Mass/Vol] 10.0 mg/dL Normal 7.0-18.0 [facility] Comment on above: Performed By: #### D RUGRPD #### [facility] [address] [address] [address] Qi Benedict Urea nitrogen/Creatinine [Mass ratio] 16.4 mg/mg Normal [facility] Comment on above: Performed By: #### D RUGRPD #### [facility] [address] [place], [place] [address] Dr. Qi Benedict HCG, ,Urineon 05-31 Beta HCG ( test) Ql (U) Negative Normal NEG [facility] Comment on above: Result Comment: Spec imens with hCG levels near the threshold of the test (25 mIU/mL) may give a negative or indeterminate result. In such cases, another test should be performed with a new specimen in 48-72 hours. If early is suspected clinically in this setting, correlation with quantitative serum b-hCG level is suggested. Performed By: #### U HCG #### [facility] [address] [place] [address] Manager Lpn: Ketan Lares MD Otheron 06-01-2019 No acute osseous abnormality in the right ankle No acute osseous abnormality in the thoracic spine. [facility], ID EXAMINATION: THREE XRAY VIEWS OF THE RIGHT [...] loss of height. There is no fracture [place], [place] Julián, Mh[employer] Incoming Radiant Results From [employer] - 06/01/2019 3:36 PM EDT EXAMINATION: THREE [...] acute osseous abnormality in the thoracic spine. [place], [place] , Urineon 0 Beta HCG ( test) Ql (U) Negative NEGATIVE [place] Comment on above: Specimens with hCG [...] Ann-Marie Medrano MD 06/01/19 Final result Normal [facility] XR THORACIC SPINE (3 VIEWS)o n 06-01-2019 [...] Ann-Marie Medrano MD 06/01/19 Final result Normal [facility] XR ANKLE RIGHT (MIN 3 VIEWS) on [...] Judah Swift MD 05/25/19 Final result Normal [facility] No fracture or dislocation. [place], [place] EXAMINATION: THREE XRAY VIEWS OF THE RIGHT ANKLE 05/25/2019 12:05 am COMPARISON: 09/12/2018 HISTORY: ORDERING SYSTEM PROVIDED HISTORY: Fall TECHNOLOGIST PROVIDED HISTORY: Fall Reason for Exam: Diffuse right ankle pain Acuity: Acute Type of Exam: Initial Mechanism of Injury: fall FINDINGS: No fracture, dislocation, or focal osseous lesion is noted. No significant soft tissue abnormality seen. [place], [place], [employer] Incoming Radiant Results From [employer] - 05/25/2019 12:15 AM EDT EXAMINATION: THREE [...] abnormality seen. IMPRESSION: No fracture or dislocation. [place], [place] HCG, Quanton 05-16-2019 HCG, Quant <1 Normal <5 [facility] Comment on above: Result Comment: Non-preg premeno <=5 Postmeno <=8 Male <=3 If HCG results do not concur with clinical observations, additional testing to confirm results is recommended. Elevated results not associated with may be found in patients with other diseases such as tumors of the germ cells (testis, ovaries, etc.), bladder, pancreas, stomach, lungs, and liver. Performed By: #### B HCG #### [facility] [address] [place] [address] Manager Lpn: Torsten Philip MD HCG, Quantitative, on 05-15-2019 hCG Quant <1 <5 IU/L [place] Comment on above: Non-preg premeno <=5 [...] Theo Dolan MD 03/12/19 Final result Normal [facility] CBC with Diffon 01-08-2019 Abs. Basophil 0.10 k/uL Normal 0.0-0.2 [facility] Comment on above: Performed By: #### C DP, HCG, LIP, CP, TROPI, DIME #### [facility] [address] [facility] [place] [place] [address] Manager Lpn: Jeremie Gross DO Abs.Neutrophil (Seg) 5.00 k/uL Normal 1.3-9.1 [facility] Comment on above: Performed By: #### C DP, HCG, LIP, CP, TROPI, DIME #### [facility] [facility] [place] [address] Manager Lpn: Jeremie Gross DO Basophils/100 WBC (Bld) 1 % Normal 0-2 [facility] Comment on above: Performed By: #### C DP, HCG, LIP, CP, TROPI, DIME #### [facility] [place] [address] Manager Lpn: Jeremie Gross DO Eosinophils (Bld) [#/Vol] 0.30 10*3/uL Normal 0.0-0.4 [facility] Comment on above: Performed By: #### C DP, HCG, LIP, CP, TROPI, DIME #### [facility] [address] [place] [address] Manager Lpn: Jeremie Gross DO Eosinophils/100 WBC (Bld) 3 % Normal 0-4 [facility] Comment on above: Performed By: #### C DP, HCG, LIP, CP, TROPI, DIME #### [facility] [address] [place] [address] Manager Lpn: Jeremie Gross DO Erythrocyte distribution width (RBC) [Ratio] 12.9 % Normal 11.5-14.9 [facility] Comment on above: Performed By: #### C DP, HCG, LIP, CP, TROPI, DIME #### [facility] [address] [facility] [place] [address] Manager Lpn: Jeremie Gross DO Hematocrit (Bld) [Volume fraction] 43.0 % Normal 36-46 [facility] Comment on above: Performed By: #### C DP, HCG, LIP, CP, TROPI, DIME #### [facility] [address] [facility] [place] [address] Manager Lpn: Jeremie Gross DO Hemoglobin (Bld) [Mass/Vol] 14.6 g/dL Normal 12.0-16.0 [facility] Comment on above: Performed By: #### C DP, HCG, LIP, CP, TROPI, DIME #### [facility] [address] [facility] [place] [address] Manager Lpn: Jeremie Gross DO Lymphocytes (Bld) [#/Vol] 3.10 10*3/uL Normal 1.2-5.2 [facility] Comment on above: Performed By: #### C DP, HCG, LIP, CP, TROPI, DIME #### [facility] [address] [place] [address] Manager Lpn: Jeremie Gross DO Lymphocytes/100 WBC (Bld) 34 % Normal 25-45 [facility] Comment on above: Performed By: #### C DP, HCG, LIP, CP, TROPI, DIME #### [facility] [address] [place] [address] Manager Lpn: Jeremie Gross DO MCH (RBC) [Entitic mass] 30.9 pg Normal 26-34 [facility] Comment on above: Performed By: #### C DP, HCG, LIP, CP, TROPI, DIME #### [facility] [place] [address] Manager Lpn: Jeremie Gross DO MCHC (RBC) [Mass/Vol] 33.9 g/dL Normal 31-37 [facility] Comment on above: Performed By: #### C DP, HCG, LIP, CP, TROPI, DIME #### [facility] [place] [address] Manager Lpn: Jeremie Gross DO MCV (RBC) [Entitic vol] 91.1 fL Normal 80-100 [facility] Comment on above: Performed By: #### C DP, HCG, LIP, CP, TROPI, DIME #### [facility] [address] [facility] [place] [address] Manager Lpn: Jeremie Gross DO Monocytes (Bld) [#/Vol] 0.70 10*3/uL Normal 0.1-1.3 [facility] Comment on above: Performed By: #### C DP, HCG, LIP, CP, TROPI, DIME #### [facility] [place] [address] Manager Lpn: Jeremie Gross DO Monocytes/100 WBC (Bld) 8 % Normal 2-8 [facility] Comment on above: Performed By: #### C DP, HCG, LIP, CP, TROPI, DIME #### [facility] [address] [place] [address] Manager Lpn: Jeremie Gross DO Neutrophil (Seg) 54 % Normal 34-64 [facility] Comment on above: Performed By: #### C DP, HCG, LIP, CP, TROPI, DIME #### [facility] [address] [place] [address] Manager Lpn: Jeremie Gross DO Platelet mean volume (Bld) [Entitic vol] 7.8 fL Normal 6.0-12.0 [facility] Comment on above: Performed By: #### C DP, HCG, LIP, CP, TROPI, DIME #### [facility] [address] [place] [address] Manager Lpn: Jeremie Gross DO Platelets (Bld) [#/Vol] 245 10*3/uL Normal 150-450 [facility] Comment on above: Performed By: #### C DP, HCG, LIP, CP, TROPI, DIME #### [facility] [address] [place] [address] Manager Lpn: Jeremie Gross DO RBC (Bld) [#/Vol] 4.71 10*6/uL Normal 4.0-5.2 [facility] Comment on above: Performed By: #### C DP, HCG, LIP, CP, TROPI, DIME #### [facility] [address] [place] [address] Manager Lpn: Jeremie Gross DO WBC (Bld) [#/Vol] 9.2 10*3/uL Normal 4.5-13.5 [facility] Comment on above: Performed By: #### C DP, HCG, LIP, CP, TROPI, DIME #### [facility] [address] [facility] [place] [place] [address] Manager Lpn: Jeremie Gross DO Abs.Imm.Granulocyte NOT REPORTED Normal 0.00-0.30 [facility] Comment on above: Performed By: #### C DP, HCG, LIP, CP, TROPI, DIME #### [facility] [address] [facility] [place] [address] Manager Lpn: Jeremie Gross DO Auto Diff Performed NOT REPORTED Normal [facility] Comment on above: Performed By: #### C DP, HCG, LIP, CP, TROPI, DIME #### [facility] [address] [facility] [place] [address] Manager Lpn: Jeremie Gross DO NRBC Automated NOT REPORTED Normal [facility] Comment on above: Performed By: #### C DP, HCG, LIP, CP, TROPI, DIME #### [facility] [address] [facility] [place] [address] Manager Lpn: Jeremie Gross DO Comp Metabolic Profon 2018 Bilirubin Ql (U) <0.15 Low 0.3-1.2 [facility] Comment on above: Performed By: #### C DP, HCG, LIP, CP, TROPI, DIME #### [facility] [place] [address] Manager Lpn: Jeremie Gross DO (cont.) Normal [facility] Comment on above: Result Comment: Aver age GFR for <20 years old not available. Chronic Kidney Disease: <60 mL/min/1.73sq m Kidney failure: <15 mL/min/1.73sq m eGFR calculated using average adult body mass. Additional eGFR calculator available at: http://www.[employer].EnOcean/multiple_crcl_2012.htm Performed By: #### C DP, HCG, LIP, CP, TROPI, DIME #### [facility] [address] [place] [address] Manager Lpn: Jeremie Gross DO Albumin [Mass/Vol] 4.3 g/dL Normal 3.5-5.2 [facility] Comment on above: Performed By: #### C DP, HCG, LIP, CP, TROPI, DIME #### [facility] [address] [place] [address] Manager Lpn: Jeremie Gross DO Alkaline Phos 86 U/L Normal 35-104 [facility] Comment on above: Performed By: #### C DP, HCG, LIP, CP, TROPI, DIME #### [facility] [address] [place] [address] Manager Lpn: Jeremie Gross DO ALT [Catalytic activity/Vol] 9 U/L Normal 5-33 [facility] Comment on above: Performed By: #### C DP, HCG, LIP, CP, TROPI, DIME #### [facility] [address] [place] [address] Manager Lpn: Jeremie Gross DO Anion gap [Moles/Vol] 11 mmol/L Normal 9-17 [facility] Comment on above: Performed By: #### C DP, HCG, LIP, CP, TROPI, DIME #### [facility] [address] [place] [address] Manager Lpn: Jeremie Gross DO AST [Catalytic activity/Vol] 12 U/L Normal <32 [facility] Comment on above: Performed By: #### C DP, HCG, LIP, CP, TROPI, DIME #### [facility] [address] [place] [address] Manager Lpn: Jeremie Gross DO Calcium [Mass/Vol] 9.3 mg/dL Normal 8.6-10.4 [facility] Comment on above: Performed By: #### C DP, HCG, LIP, CP, TROPI, DIME #### [facility] [address] [place] [address] Manager Lpn: Jeremie Gross DO Chloride [Moles/Vol] 104 mmol/L Normal 98-107 [facility] Comment on above: Performed By: #### C DP, HCG, LIP, CP, TROPI, DIME #### [facility] [address] [place] [address] Manager Lpn: Jeremie Gross DO CO2 [Moles/Vol] 25 mmol/L Normal 20-31 [facility] Comment on above: Performed By: #### C DP, HCG, LIP, CP, TROPI, DIME #### [facility] [address] [place] [address] Manager Lpn: Jeremie Gross DO Creatinine [Mass/Vol] 0.53 mg/dL Normal 0.50-0.90 [facility] Comment on above: Performed By: #### C DP, HCG, LIP, CP, TROPI, DIME #### [facility] [address] [place] [address] Manager Lpn: Jeremie Gross DO GFR,non Amer Pediatric GFR requires additional information. Refer to NKDEP website for Normal >60 [facility] Comment on above: Result Comment: calc ulator. Performed By: #### C DP, HCG, LIP, CP, TROPI, DIME #### [facility] [address] [place] [address] Manager Lpn: Jeremie Gross DO Glucose [Mass/Vol] 86 mg/dL Normal 70-99 [facility] Comment on above: Performed By: #### C DP, HCG, LIP, CP, TROPI, DIME #### [facility] [address] [place] [address] Manager Lpn: Jeremie Gross DO Potassium [Moles/Vol] 3.7 mmol/L Normal 3.7-5.3 [facility] Comment on above: Performed By: #### C DP, HCG, LIP, CP, TROPI, DIME #### [facility] [address] [place] [address] Manager Lpn: Jeremie Gross DO Protein [Mass/Vol] 7.4 g/dL Normal 6.4-8.3 [facility] [place] Comment on above: Performed By: #### C DP, HCG, LIP, CP, TROPI, DIME #### [facility] [address] [place] [address] Manager Lpn: Jeremie Gross DO Sodium [Moles/Vol] 140 mmol/L Normal 135-144 [facility] [place] Comment on above: Performed By: #### C DP, HCG, LIP, CP, TROPI, DIME #### [facility] [place] [address] Manager Lpn: Jeremie Gross DO Urea nitrogen [Mass/Vol] 18 mg/dL Normal 6-20 [facility] [place] Comment on above: Performed By: #### C DP, HCG, LIP, CP, TROPI, DIME #### [facility] [address] [facility] [place] [address] Manager Lpn: Jeremie Gross DO GFR, Amer NOT REPORTED Normal >60 [facility] [place] Comment on above: Performed By: #### C DP, HCG, LIP, CP, TROPI, DIME #### [facility] [place] [address] Manager Lpn: Jeremie Gross DO Staging: NOT REPORTED Normal [facility] [place] Comment on above: Performed By: #### C DP, HCG, LIP, CP, TROPI, DIME #### [facility] [address] [place] [address] Manager Lpn: Jeremie Gross DO D-Dimer Teston 01-08-2019 D-Dimer Test 0.34 mg/L FEU Normal 0.00-0.59 [facility] [place] Comment on above: Result Comment: When combined [...] DP, HCG, LIP, CP, TROPI, DIME #### [facility] [address] [place], [place] [id number] Manager Lpn: Jeremie Gross DO HCG Screen, Bloodon 01-09-20 19 HCG Qn Negative Normal NEG [facility] [place] Comment on above: Result Comment: Spec imens [...] DP, HCG, LIP, CP, TROPI, DIME #### [facility] [address] [facility] [place] [place] [address] Manager Lpn: Jeremie Gross DO Lipaseon 01-08-2019 Lipase [Catalytic activity/Vol] 28 U/L Normal 13-60 [facility] [place] Comment on above: Performed By: #### C DP, HCG, LIP, CP, TROPI, DIME #### [facility] [address] [facility] [place] [place] [address] Manager Lpn: Jeremie Gross DO Troponinon 01-08-2019 Troponin I.cardiac [Mass/Vol] ng/mL Normal 0-14 [facility] [place] Comment on above: Result Comment: High Sensitivity Troponin values cannot be compared with other Troponin methodologies. Patients with high levels of Biotin oral intake (i.e >5mg/day) may have falsely decreased Troponin levels. Samples collected within 8 hours of biotin intake may require additional information for diagnosis. Performed By: #### U HCG, UAX #### [facility] [address] [facility] [place] [place] [address] Manager Lpn: Jeremie Gross DO Troponin I.cardiac [Mass/Vol] NOT REPORTED Normal <0.03 [facility] [place] Comment on above: Performed By: #### U HCG, UAX #### [facility] [address] [facility] [place] [place] [address] Manager Lpn: Jeremie Gross DO Performed By: #### C DP, HCG, LIP, CP, TROPI, DIME #### [facility] [address] [facility] [place] [place] [address] Manager Lpn: Jeremie Gross DO Troponin I.cardiac [Mass/Vol] ng/mL Normal 0-14 [facility] [place] Comment on above: Result Comment: High Sensitivity Troponin values cannot be compared with other Troponin methodologies. Patients with high levels of Biotin oral intake (i.e >5mg/day) may have falsely decreased Troponin levels. Samples collected within 8 hours of biotin intake may require additional information for diagnosis. Performed By: #### C DP, HCG, LIP, CP, TROPI, DIME #### [facility] [place] [address] Manager Lpn: Jeremie Gross DO UA w/Reflex Cultureon 2018 Acetoacetic Acid,Ur Negative Normal NEG [facility] [place] Comment on above: Performed By: #### U HCG, UAX #### [facility] [address] [place] [address] Manager Lpn: Jeremie Gross DO Bilirubin, SemiQt,Ur Negative Normal NEG [facility] Comment on above: Performed By: #### U HCG, UAX #### [facility] [address] [place] [address] Manager Lpn: Jeremie Gross DO Color (U) YELLOW Normal YEL [facility] [place] Comment on above: Performed By: #### U HCG, UAX #### [facility] [address] [place] [address] Manager Lpn: Jeremie Gross DO Glucose Ql (U) Negative Normal NEG [facility] [place] Comment on above: Performed By: #### U HCG, UAX #### [facility] [address] [place] [address] Manager Lpn: Jeremie Gross DO Hemoglobin, Ur Negative Normal NEG [facility] [place] Comment on above: Performed By: #### U HCG, UAX #### [facility] [address] [place] [address] Manager Lpn: Jeremie Gross DO Leukocyte esterase Test strip Ql (U) Negative Normal NEG [facility] [place] Comment on above: Performed By: #### U HCG, UAX #### [facility] [place] [address] Manager Lpn: Jeremie Gross DO Nitrite,Ur Negative Normal NEG [facility] [place] Comment on above: Performed By: #### U HCG, UAX #### [facility] [address] [place] [address] Manager Lpn: Jeremie Gross DO pH (U) 6.5 [pH] Normal 5.0-8.0 [facility] [place] Comment on above: Performed By: #### U HCG, UAX #### [facility] [address] [place] [address] Manager Lpn: Jeremie Gross DO Protein Ql (U) Negative Normal NEG [facility] [place] Comment on above: Performed By: #### U HCG, UAX #### [facility] [address] [place] [address] Manager Lpn: Jeremie Gross DO Specific gravity (U) [Rel density] 1.024 Normal 1.000-1.030 [facility] [place] Comment on above: Performed By: #### U HCG, UAX #### [facility] [address] [place] [address] Manager Lpn: Jeremie Gross DO Turbidity CLOUDY Abnormal CLEAR [facility] [place] Comment on above: Performed By: #### U HCG, UAX #### [facility] [address] [place] [address] Manager Lpn: Jeremie Gross DO Urobilinogen,Ur Normal Normal NORM [facility] [place] Comment on above: Performed By: #### U HCG, UAX #### [facility] [address] [place] [address] Manager Lpn: Jeremie Gross DO Comment NOT REPORTED Normal [facility] [place] Comment on above: Performed By: #### U HCG, UAX #### [facility] [address] [place] [address] Manager Lpn: Jeremie Gross DO Urinalysis,Microon 9 ----- Normal [facility] [place] Comment on above: Performed By: #### U HCG, UAX #### [facility] [address] [place] [address] Manager Lpn: Jeremie Gross DO Bacteria LM.HPF (Urine sed) [#/Area] FEW Abnormal NONE [facility] [place] Comment on above: Performed By: #### U HCG, UAX #### [facility] [address] [place] [address] Manager Lpn: Jeremie Gross DO Epithelial cells LM.HPF (Urine sed) [#/Area] 5 TO 10 Normal [facility] [place] Comment on above: Performed By: #### U HCG, UAX #### [facility] [address] [place] [address] Manager Lpn: Jeremie Gross DO RBC (U) [#/Vol] 0 TO 2 Normal [facility] [place] Comment on above: Performed By: #### U HCG, UAX #### [facility] [address] [place] [address] Manager Lpn: Jeremie Gross DO WBC (U) [#/Vol] 0 TO 2 Normal [facility] [place] Comment on above: Performed By: #### U HCG, UAX #### [facility] [address] [place] [address] Manager Lpn: Jeremie Gross DO Amorphous sediment LM Ql (Urine sed) NOT REPORTED Normal NONE [facility] [place] Comment on above: Performed By: #### U HCG, UAX #### [facility] [address] [place] [address] Manager Lpn: Jeremie Gross DO Casts LM.LPF (Urine sed) [#/Area] NOT REPORTED Normal [facility] [place] Comment on above: Performed By: #### U HCG, UAX #### [facility] [address] [place] [address] Manager Lpn: Jeremie Gross DO Crystals LM Nom (Urine sed) NOT REPORTED Normal NONE [facility] [place] Comment on above: Performed By: #### U HCG, UAX #### [facility] [address] [place] [address] Manager Lpn: Jeremie Gross DO Epithelial, Renal NOT REPORTED Normal 0 [facility] [place] Comment on above: Performed By: #### U HCG, UAX #### [facility] [address] [place] [address] Manager Lpn: Jeremie Gross DO Mucus Strands NOT REPORTED Normal NONE [facility] [place] Comment on above: Performed By: #### U HCG, UAX #### [facility] [address] [place] [address] Manager Lpn: Jeremie Gross DO Other Observations NOT REPORTED Normal NREQ [facility] Comment on above: Performed By: #### U HCG, UAX #### [facility] [address] [place] [address] Manager Lpn: Jeremie Gross DO Trichomonas NOT REPORTED Normal NONE [facility] [place] Comment on above: Performed By: #### U HCG, UAX #### [facility] [address] [place] [address], [place] [address] Manager Lpn: Jeremie Gross DO Yeast LM Ql (Urine sed) NOT REPORTED Normal NONE [facility] [place] Comment on above: Performed By: #### U HCG, UAX #### [facility] [address] [place] [address] Manager Lpn: Jeremie Gross DO XR CHEST (2 VW)on [...] Levi Munroe MD 01/07/19 Final result Normal [facility] CBC Auto Differentialon 12-11 Basophils (Bld) [#/Vol] 0.10 10*3/uL [place] Basophils/100 WBC (Bld) 1 % 0 - 2 % [place] Differential Type NOT REPORTED [place] Eosinophils (Bld) [#/Vol] 0.30 10*3/uL [place] Eosinophils/100 WBC (Bld) 3 % 0 - 4 % [place] Erythrocyte distribution width (RBC) [Ratio] 12.9 % 11.5 - 14.9 % [place] Hematocrit (Bld) [Volume fraction] 43.0 % 36 - 46 % [place] Hemoglobin (Bld) [Mass/Vol] 14.6 g/dL 12 - 16 g/dL [place] Lymphocytes (Bld) [#/Vol] 3.10 10*3/uL [place] Lymphocytes/100 WBC (Bld) 34 % 25 - 45 % [place] MCH (RBC) [Entitic mass] 30.9 pg 26 - 34 pg [place] MCHC (RBC) [Mass/Vol] 33.9 g/dL 31 - 37 g/dL [place] MCV (RBC) [Entitic vol] 91.1 fL 80 - 100 fL [place] Monocytes (Bld) [#/Vol] 0.70 10*3/uL [place] Monocytes/100 WBC (Bld) 8 % 2 - 8 % [place] Platelet mean volume (Bld) [Entitic vol] 7.8 fL 6 - 12 fL [place] Platelets (Bld) [#/Vol] 245 10*3/uL [place] RBC (Bld) [#/Vol] 4.71 10*6/uL 4 - 5.2 m/uL [place] Segmented neutrophils/100 WBC (Bld) 54 % 34 - 64 % [place] Segs Absolute 5.00 [place] WBC (Bld) [#/Vol] 9.2 10*3/uL [place] WBC (Bld) [#/Vol] NOT REPORTED per 100 WBC [place] CBC with Diffon 01-07-2019 Immature granulocytes (Bld) [#/Vol] NOT REPORTED Normal 0 [place] Comment on above: Performed By: #### C DP, HCG, LIP, CP, TROPI, DIME #### [facility] [place], [place] [phone] Manager Lpn: Jeremie Gross DO Platelets (Bld) [#/Vol] NOT REPORTED Normal [place] Comment on above: Performed By: #### C DP, HCG, LIP, CP, TROPI, DIME #### [facility] [address] [place] [address] Manager Lpn: Jeremie Gross DO RBC morphology finding Nom (Bld) NOT REPORTED Normal [place] Comment on above: Performed By: #### C DP, HCG, LIP, CP, TROPI, DIME #### [facility] [address] [place] [address] Manager Lpn: Jeremie Gross DO WBC Morphology NOT REPORTED Normal [place] Comment on above: Performed By: #### C DP, HCG, LIP, CP, TROPI, DIME #### [facility] [address] [place] [address] Manager Lpn: Jeremie Gross DO Comp Metabolic Profon 2018 Albumin/Globulin [Mass ratio] NOT REPORTED Normal 1.0-2.5 [place] Comment on above: Performed By: #### C DP, HCG, LIP, CP, TROPI, DIME #### [facility] [address] [place] [address] Manager Lpn: Jeremie Gross DO Bun/Cre Ratio NOT REPORTED Normal - [place] Comment on above: Performed By: #### C DP, HCG, LIP, CP, TROPI, DIME #### [facility] [address] [place] [address] Manager Lpn: Jeremie Gross DO Comprehensive Metabolic Pane eric 01-07-2019 Albumin [Mass/Vol] 4.3 g/dL 3.5 - 5.2 g/dL [place] ALP [Catalytic activity/Vol] 86 U/L 35 - 104 U/L [place] ALT [Catalytic activity/Vol] 9 U/L 5 - 33 U/L [place] Anion gap [Moles/Vol] 11 mmol/L 9 - 17 mmol/L [place] AST [Catalytic activity/Vol] 12 U/L <32 [place] Bilirubin Ql (U) <0.15 Low 0.3 - 1.2 mg/dL [place] Calcium [Mass/Vol] 9.3 mg/dL 8.6 - 10. 4 mg/dL [place] Chloride [Moles/Vol] 104 mmol/L 98 - 10 7 mmol/L [place] CO2 [Moles/Vol] 25 mmol/L 20 - 31 mmol/L [place] Creatinine [Mass/Vol] 0.53 mg/dL 0.5 - 0.9 mg/dL [place] GFR NOT REPORTED >60 mL/min [place] GFR Non- Pediatric GFR requires additional information. Refer to [facility] website for calculator. >60 mL/min [place] GFR/1.73 sq M predicted among non-blacks MDRD (S/P/Bld) [Vol rate/Area] [place] Comment on above: Average GFR for <20 years old not available. Chronic Kidney Disease: <60 mL/min/1.73sq m Kidney failure: <15 mL/min/1.73sq m eGFR calculated using average adult body mass. Additional eGFR calculator available at: http://www.[employer]/multiple_crcl_2012.htm GFR/1.73 sq M predicted among non-blacks MDRD (S/P/Bld) [Vol rate/Area] NOT REPORTED [place] Glucose [Mass/Vol] 86 mg/dL 70 - 99 mg/dL [place] Interpretation and review of laboratory results Abnormal [place] Potassium [Moles/Vol] 3.7 mmol/L 3.7 - 5.3 mmol/L [place] Protein [Mass/Vol] 7.4 g/dL 6.4 - 8.3 g/dL [place] Sodium [Moles/Vol] 140 mmol/L 135 - 144 mmol/L [place] Urea nitrogen [Mass/Vol] 18 mg/dL 6 - 20 mg/dL [place] D-Dimer, Quantitativeon 11-3 D-Dimer, Quant 0.34 [place], [place] Comment on above: When combined with [...] Bloodon 01-08-20 19 hCG Qual Negative NEGATIVE [place] Comment on above: Specimens with hCG [...] activity/Vol] 28 U/L 13 - 60 U/L [place] Microscopic Urinalysison Amorphous, UA NOT REPORTED None [facility] [place] Bacteria, UA FEW Abnormal None [place] Casts UA NOT REPORTED /LPF [place] Crystals UA NOT REPORTED None /[facility] [place] Epithelial Cells UA 5 TO 10 /HPF [place] Interpretation and review of laboratory results Abnormal [place] Mucus, UA NOT REPORTED None [place] Other Observations UA NOT REPORTED NOT REQ. [place] RBC (U) [#/Vol] 0 TO 2 /HPF [place] Renal Epithelial, Urine NOT REPORTED 0 /HPF [place] Trichomonas, UA NOT REPORTED None [place], [place] WBC, UA 0 TO 2 /HPF [place] Yeast, UA NOT REPORTED None [place] - [place] Troponinon 01-07-2019 Troponin I.cardiac [Mass/Vol] NOT REPORTED [place] Troponin T.cardiac [Mass/Vol] NOT REPORTED <0.03 ng/mL [place] Troponin, High Sensitivity <6 0 - 14 ng/L [place] Comment on above: High Sensitivity Troponin values cannot be compared with other Troponin methodologies. Patients with high levels of Biotin oral intake (i.e >5mg/day) may have falsely decreased Troponin levels. Samples collected within 8 hours of biotin intake may require additional information for diagnosis. Troponin I.cardiac [Mass/Vol] NOT REPORTED [place] Troponin T.cardiac [Mass/Vol] NOT REPORTED <0.03 ng/mL [place] Troponin, High Sensitivity <6 0 - 14 ng/L [place] Comment on above: High Sensitivity Troponin values cannot be compared with other Troponin methodologies. Patients with high levels of Biotin oral intake (i.e >5mg/day) may have falsely decreased Troponin levels. Samples collected within 8 hours of biotin intake may require additional information for diagnosis. Urinalysis Reflex to Culture on 01-07-2019 Bilirubin Urine Negative NEGATIVE [place] Color, UA YELLOW YELLOW [place], [place] Glucose, Ur Negative NEGATIVE [place] Interpretation and review of laboratory results Abnormal [place] Ketones Ql (U) Negative NEGATIVE [place] Leukocyte esterase Test strip Ql (U) Negative NEGATIVE [place] Nitrite, Urine Negative NEGATIVE [place] pH, UA 6.5 [place], [place] Protein (U) [Mass/Vol] Negative NEGATIVE [place], [place] Specific [place], UA 1.024 [place], [place] Turbidity UA CLOUDY Abnormal CLEAR [place] Urinalysis Comments NOT REPORTED [place] Urine Hgb Negative NEGATIVE [place] Urobilinogen, Urine Normal Normal [place] XR CHEST STANDARD (2 VW)on 03-09-2018 [...] The osseous structures are without acute process. [place] Julián, Mhpn Incoming Radiant Results From [employer] - 01/07/2019 10:07 PM EST EXAMINATION: TWO [...] without acute process. IMPRESSION: No acute process. [place] No acute process. [place], [place] HCG, ,Urineon 12-03 Beta HCG ( test) Ql (U) Negative Normal NEG [facility] [place] Comment on above: Result Comment: Spec imens with hCG levels near the threshold of the test (25 mIU/mL) may give a negative or indeterminate result. In such cases, another test should be performed with a new specimen in 48-72 hours. If early is suspected clinically in this setting, correlation with quantitative serum b-hCG level is suggested. Performed By: #### U HCG, UAX #### [facility] [address] [place] [address] Manager Lpn: Jeremie Gross DO Beta HCG ( test) Ql (U) Negative NEGATIVE [place] Comment on above: Specimens with hCG [...] Cultureon 2018 Acetoacetic Acid,Ur Negative Normal NEG [facility] [place] Comment on above: Performed By: #### U HCG, UAX #### [facility] [address] [facility] [place] [place] [address] Manager Lpn: Jeremie Gross DO Bilirubin, SemiQt,Ur Negative Normal NEG [facility] Comment on above: Performed By: #### U HCG, UAX #### [facility] [address] [place] [address]. [place] [address] Manager Lpn: Jeremie Gross DO Color (U) YELLOW Normal YEL [facility] [place] Comment on above: Performed By: #### U HCG, UAX #### [facility] [address] [place] [address]. [place] [address] Manager Lpn: Jeremie Gross DO Comment Microscopic exam not performed based on chemical results unless requested in Normal [facility] Comment on above: Result Comment: orig inal order. Performed By: #### U HCG, UAX #### [facility] [address] [place] [address]. [place] [address] Manager Lpn: Jeremie Gross DO Glucose Ql (U) Negative Normal [facility] Comment on above: Performed By: #### U HCG, UAX #### [facility] [address] [place] [address]. [place] [address] Manager Lpn: Jeremie Gross DO Hemoglobin, Ur Negative Normal [facility] Comment on above: Performed By: #### U HCG, UAX #### [facility] [address] [place] [address]. [place] [address] Manager Lpn: Jeremie Gross DO Nitrite,Ur Negative Normal NEG [facility] [place] Comment on above: Performed By: #### U HCG, UAX #### [facility] [address] [place] [address] Manager Lpn: Jeremie Gross DO pH (U) 8.5 [pH] High 5.0-8.0 [facility] [place] Comment on above: Performed By: #### U HCG, UAX #### [facility] [address] [place] [address] Manager Lpn: Jeremie Gross DO Protein Ql (U) Negative Normal NEG [facility] [place] Comment on above: Performed By: #### U HCG, UAX #### [facility] [address] [place] [address] Manager Lpn: Jeremie Gross DO Specific gravity (U) [Rel density] 1.018 Normal 1.000-1.030 [facility] [place] Comment on above: Performed By: #### U HCG, UAX #### [facility] [address] [place] [address] Manager Lpn: Jeremie Gross DO Turbidity CLEAR Normal CLEAR [facility] [place] Comment on above: Performed By: #### U HCG, UAX #### [facility] [address] [place] [address] Manager Lpn: Jeremie Gross DO Urobilinogen,Ur Normal Normal NORM [facility] [place] Comment on above: Performed By: #### U HCG, UAX #### [facility] [address] [place] [address] Manager Lpn: Jeremie Gross DO Leukocyte esterase Test strip Ql (U) Negative Normal NEG [facility] Comment on above: Performed By: #### U HCG, UAX #### [facility] [address] [place] [address] Manager Lpn: Jeermie Gross DO Urinalysis Reflex to Culture on 2018 Bilirubin Urine Negative NEGATIVE [facility] [place] Color, UA YELLOW YELLOW [place] Glucose, Ur Negative NEGATIVE [place] Interpretation and review of laboratory results Abnormal [place] Ketones Ql (U) Negative NEGATIVE [facility], [place] Nitrite, Urine Negative NEGATIVE [facility], [place] pH, UA 8.5 High [place] Protein (U) [Mass/Vol] Negative NEGATIVE [place] Specific [place], UA 1.018 [place] Turbidity UA CLEAR CLEAR [place] Urinalysis Comments Microscopic exam not performed based on chemical results unless requested in original order. [place] Urine Hgb Negative NEGATIVE [place] Urobilinogen, Urine Normal Normal [place] XR ANKLE RIGHT (MIN 3 VIEWS) on [...] Damian Ochoa MD 09/12/18 Final result Normal [facility] Vital Signs Date Time Vital Sign Value Performing Clinician Facility 07-26-2024 11:21-0400 Body mass index (BMI) [Ratio] 28.61 kg/m2 Eusebio Carole DO Work Phone: [facility] 07-26-2024 11:21-0400 Body weight 73.26 kg Eusebio Carole DO Work Phone: [facility] 07-26-2024 11:21-0400 Diastolic blood pressure 62 mm[Hg] Eusebio Carole DO Work Phone: [facility] 07-26-2024 11:21-0400 Systolic blood pressure 102 mm[Hg] Eusebio Carole DO Work Phone: [facility] 07-13-2024 10:50-0400 Body mass index (BMI) [Ratio] 27.81 kg/m2 Eusebio Carole DO Work Phone: [facility] 07-13-2024 10:50-0400 Body weight 71.22 kg Eusebio Carole DO Work Phone: [facility] 07-13-2024 10:50-0400 Diastolic blood pressure 68 mm[Hg] Eusebio Carole DO Work Phone: [facility] 07-13-2024 10:50-0400 Systolic blood pressure 110 mm[Hg] Eusebio Carole DO Work Phone: [facility] 06-28-2024 10:14-0400 Body mass index (BMI) [Ratio] 28.3 kg/m2 Radha GARCIA Work Phone: [facility] 06-28-2024 10:14-0400 Body weight 72.46 kg Radha GARCIA Work Phone: [facility] 06-28-2024 10:14-0400 Diastolic blood pressure 60 mm[Hg] Radha GARCIA Work Phone: [facility] 06-28-2024 10:14-0400 Systolic blood pressure 110 mm[Hg] Radha GARCIA Work Phone: [facility] 06-13-2024 12:02-0400 Body mass index (BMI) [Ratio] 27.99 kg/m2 Eusebio Carole DO Work Phone: [facility] [facility] 06-13-2024 12:02-0400 Body weight 71.67 kg Eusebio Carole DO Work Phone: [facility] 06-13-2024 12:02-0400 Diastolic blood pressure 74 mm[Hg] Eusebio Carole DO Work Phone: [facility] 06-13-2024 12:02-0400 Systolic blood pressure 122 mm[Hg] Eusebio Carole DO Work Phone: [facility] 05-16-2024 09:43-0400 Body mass index (BMI) [Ratio] 25.86 kg/m2 Eusebio Carole DO Work Phone: [facility] 05-16-2024 09:43-0400 Body weight 66.22 kg Eusebio Carole DO Work Phone: [facility] 05-16-2024 09:43-0400 Diastolic blood pressure 70 mm[Hg] Eusebio Carole DO Work Phone: [facility] 05-16-2024 09:43-0400 Systolic blood pressure 120 mm[Hg] Eusebio Carole DO Work Phone: [facility] 04-17-2024 13:30-0400 Body mass index (BMI) [Ratio] 23.52 kg/m2 Radha GARCIA Work Phone: [facility] 04-17-2024 13:30-0400 Body weight 60.24 kg Radha Austin PA Work Phone: [facility] 04-17-2024 13:30-0400 Diastolic blood pressure 60 mm[Hg] Radha Avila PA Work Phone: [facility] 04-17-2024 13:30-0400 Systolic blood pressure 100 mm[Hg] Radha Avila PA Work Phone: [facility] 03-22-2024 11:21-0500 Body mass index (BMI) [Ratio] 22.34 kg/m2 Radha Avila PA Work Phone: [facility] 03-22-2024 11:21-0500 Body weight 57.21 kg Radha Austin PA Work Phone: [facility] 03-22-2024 11:21-0500 Diastolic blood pressure 74 mm[Hg] Radha Hargroveey PA Work Phone: [facility] 03-22-2024 11:21-0500 Systolic blood pressure 110 mm[Hg] Radha Hargroveey PA Work Phone: [facility] 03-09-2023 14:31-0500 Body mass index (BMI) [Ratio] 25.51 kg/m2 Eusebio Carole DO Work Phone: [facility] 03-09-2023 14:31-0500 Body weight 65.32 kg Eusebio Carole DO Work Phone: [facility] 03-09-2023 14:31-0500 Diastolic blood pressure 72 mm[Hg] Eusebio Carole DO Work Phone: [facility] 03-09-2023 14:31-0500 Systolic blood pressure 120 mm[Hg] Eusebio Carole DO Work Phone: [facility] 10-05-2021 02:05-0400 Body weight 80.[address] EUSEBIO LAM . [facility] Comment on above: Performed By: #### AFPMAT #### [facility] [address] [place] [address] Dr. Qi Benedict 06-01-2019 14:51-0400 BMI (Body Mass Index) 31.35 kg/m2 [facility] 06-01-2019 14:51-0400 Body Temperature 99 [degF] [facility] [place] 06-01-2019 14:51-0400 Body weight 80.29 kg [facility] , [place] 06-01-2019 14:51-0400 Height 160 cm [facility] [place] 06-01-2019 14:51-0400 Pulse (Heart Rate) 83 /min [facility] 06-01-2019 14:51-0400 Pulse Oximetry 99 % [facility] , [place] 06-01-2019 14:51-0400 Respiratory Rate 16 /min Victorino [facility] 05-24-2019 23:36-0400 BMI (Body Mass Index) 32.01 kg/m2 [place], [place] 05-24-2019 23:36-0400 Body Temperature 98.6 [degF] [facility] 05-24-2019 23:36-0400 Body weight 79.38 kg [place] 05-24-2019 23:36-0400 BP Diastolic 86 mm[Hg] [facility] , [place] 05-24-2019 23:36-0400 BP Systolic 135 mm[Hg] [place] 05-24-2019 23:36-0400 Height 157.5 cm [place] 05-24-2019 23:36-0400 Pulse (Heart Rate) 98 /min [place] 05-24-2019 23:36-0400 Pulse Oximetry 99 % [facility] [place] 05-24-2019 23:36-0400 Respiratory Rate 20 /min [facility] 01-07-2019 23:25-0500 Body Temperature 98.6 [degF] [facility] 01-07-2019 23:25-0500 BP Diastolic 78 mm[Hg] [facility] [place] 01-07-2019 23:25-0500 BP Systolic 124 mm[Hg] [facility] [place] 01-07-2019 23:25-0500 Pulse (Heart Rate) 77 /min [facility] 01-07-2019 23:25-0500 Pulse Oximetry 99 % [facility] , [place] 01-07-2019 23:25-0500 Respiratory Rate 16 /min [facility] 01-07-2019 21:09-0500 Height 160 cm [facility] , [place] 2018 17:25-0400 BMI (Body Mass Index) 25.61 kg/m2 Kosta Krebs [facility] 2018 17:25-0400 Body Temperature 98.1 [degF] [facility] 2018 17:25-0400 Body weight 63.5 kg [facility] , [place] 2018 17:25-0400 BP Diastolic 64 mm[Hg] [facility] [place] 2018 17:25-0400 BP Systolic 92 mm[Hg] [facility] [place] 2018 17:25-0400 Height 157.5 cm [place], [place] 2018 17:25-0400 Pulse (Heart Rate) 80 /min [facility] 2018 17:25-0400 Pulse Oximetry 98 % [facility] , [place] 2018 17:25-0400 Respiratory Rate 16 /min [place], [place] Encounters Encounter Date Encounter Type Care Provider Facility Start: 08-03-2024 End: 08-03-2024 Clinisync Result Encounter Eusebio Carole DO Work Phone: [facility] Unsolicited Start: 08-03-2024 End: 08-03-2024 Clinisync Result Encounter Eusebio Carole DO Work Phone: [facility] Unsolicited Start: 07-26-2024 End: 07-26-2024 Bamboo flowsheet Eusebio Carole DO Work Phone: [facility] Start: 07-26-2024 End: 07-26-2024 Bamboo flowsheet Eusebio Carole DO Work Phone: [facility] Start: 07-26-2024 End: 07-26-2024 Clinisync Result Encounter Eusebio Carole DO Work Phone: [facility] Unsolicited Start: 07-26-2024 End: 07-26-2024 ambulatory EUSEBIO CAROLE Not Available Start: 07-26-2024 End: 07-26-2024 Office outpatient visit 15 minutes Eusebio Carole DO Work Phone: [facility] Comment on above: Third trimester preg cindi ([facility]); 31 weeks gestation of ([facility]) Start: 07-13-2024 End: 07-13-2024 Bamboo flowsheet Eusebio Carole DO Work Phone: [facility] Start: 07-13-2024 End: 07-13-2024 Bamboo flowsheet Eusebio Carole DO Work Phone: [facility] Start: 07-13-2024 End: 07-13-2024 Office outpatient visit 15 minutes Eusebio Carole DO Work Phone: [facility] Comment on above: Third trimester preg cindi; 30 weeks gestation of ; H/O delivery, currently Start: 07-13-2024 End: 07-13-2024 ambulatory EUSEBIO CAROLE Not Available Start: 06-28-2024 End: 06-28-2024 Office outpatient visit 15 minutes Radha Avila PA Work Phone: [facility] Comment on above: Second trimester pre gnancy; 27 weeks gestation of Start: 06-28-2024 End: 06-28-2024 ambulatory RADHA AVILA Not Available Start: 06-13-2024 End: 06-13-2024 Bamboo flowsheet Eusebio Carole DO Work Phone: [facility] Start: 06-13-2024 End: 06-13-2024 Bamboo flowsheet Eusebio Carole DO Work Phone: [facility] Start: 06-13-2024 End: 06-13-2024 Office outpatient visit 15 minutes Eusebio Carole DO Work Phone: [facility] Comment on above: Second trimester pre gnancy; 25 weeks gestation of ; H/O delivery, currently ; Vapes nicotine containing substance Start: 06-13-2024 End: 06-13-2024 ambulatory EUSEBIO CAROLE Not Available Start: 05-24-2024 End: 05-24-2024 ambulatory EUSEBIO R CAROLE [facility] Start: 05-16-2024 End: 05-16-2024 Bamboo flowsheet Eusebio Carole DO Work Phone: [facility] Start: 05-16-2024 End: 05-19-2024 Bamboo flowsheet Eusebio Carole DO Work Phone: [facility] Start: 05-16-2024 End: 05-19-2024 Clinisync Result Encounter Eusebio Carole DO Work Phone: [facility] External Department Unsolicited Start: 05-16-2024 End: 05-17-2024 External Result Encounter Eusebio Carole DO Work Phone: [facility] External Department Unsolicited Start: 05-16-2024 End: 05-16-2024 Patient encounter procedure Eusebio Carole DO Work Phone: [facility] Start: 05-16-2024 End: 05-16-2024 Periodic preventive med est patient 18-39 yrs Eusebio Carole DO Work Phone: [facility] Comment on above: 21 weeks gestation o f ; Second trimester ; Diabetes mellitus screening; Well woman exam with routine gynecological exam; Exposure to STD; Vaginal discharge; Nausea Start: 05-16-2024 End: 05-16-2024 ambulatory EUSEBIO CAROLE Not Available Start: 05-08-2024 End: 05-08-2024 ambulatory RADHA AVILA Not Available Start: 04-17-2024 End: 04-17-2024 Office outpatient visit 15 minutes Radha GARCIA Work Phone: [facility] Comment on above: 17 weeks gestation o f ; Second trimester ; Screening, , for anatomic survey Start: 04-17-2024 End: 04-17-2024 ambulatory RADHA AVILA Not Available Start: 03-22-2024 End: 03-22-2024 Bamboo flowsheet Radha GARCIA Work Phone: [facility] Start: 03-22-2024 End: 03-22-2024 Bamboo flowsheet Radha GARCIA Work Phone: [facility] Start: 03-22-2024 End: 03-22-2024 ambulatory RADHA AVILA Not Available Start: 03-22-2024 End: 03-22-2024 Office outpatient visit 15 minutes Radha GARCIA Work Phone: [facility] Comment on above: GA: 14w0d Start: 02-29-2024 End: 02-29-2024 Clinisync Result Encounter Eusebio Carole DO Work Phone: [facility] Unsolicited Start: 02-29-2024 End: 02-29-2024 Clinisync Result Encounter Eusebio Carole DO Work Phone: [facility] Unsolicited Start: 02-18-2024 End: 02-18-2024 Clinisync Result Encounter Eusebio Carole DO Work Phone: [facility] Unsolicited Start: 02-18-2024 End: 02-18-2024 Clinisync Result Encounter Eusebio Carole DO Work Phone: [facility] Unsolicited Start: 02-11-2024 End: 02-11-2024 ambulatory STUART AUSTINCASOURAV [facility] Start: 02-11-2024 End: 02-11-2024 ambulatory [facility] Start: 01-26-2024 End: 01-26-2024 ambulatory [facility] Start: 01-19-2024 End: 01-19-2024 ambulatory ANN-MARIE ASH [facility] Start: 01-18-2024 End: 01-18-2024 ambulatory [facility] Start: 01-11-2024 End: 01-11-2024 Emergency department patient visit ANN-MARIE ASH MD Facility:[facility] Start: 11-03-2023 End: 11-03-2023 Bamboo flowsheet Eusebio Carole DO Work Phone: [facility] Start: 11-03-2023 End: 11-03-2023 Bamboo flowsheet Eusebio Carole DO Work Phone: [facility] Start: 11-03-2023 End: 11-03-2023 Clinisync Result Encounter Eusebio Carole DO Work Phone: [facility] Unsolicited Start: 11-03-2023 End: 11-03-2023 ambulatory EUSEBIO YUSUFO Not Available Start: 11-03-2023 End: 11-03-2023 Office outpatient visit 15 minutes Eusebio Carole DO Work Phone: [facility] Comment on above: Follow-up encounter involving medication; depression (CMS/HCC); Weight loss Start: 09-01-2023 ambulatory [facility] Start: 03-22-2023 End: 03-22-2023 Emergency department patient visit ANN-MARIE ASH [facility] Start: 03-09-2023 End: 03-09-2023 Office outpatient visit 15 minutes Eusebio Carole DO Work Phone: [facility] Comment on above: 6 weeks f ollow-up; control counseling Start: 07-03-2022 End: 07-04-[address] EUSEBIO LAM . Facility:[facility] Start: 06-04-2022 End: 06-05-[address] EUSEBIO LAM . Facility:[facility] Start: 05-29-2022 End: 05-30-[address] EUSEBIO LAM . Facility:[facility] Start: 02-03-2022 End: 02-03-[address] EUSEBIO LAM . Facility:[facility] Start: 01-29-2022 End: 01-31-2022 Evaluation and management of inpatient DR EUSEBIO LAM . Facility:[facility] Start: 01-22-2022 End: 01-22-[address] EUSEBIO LAM . Facility:[facility] Start: 01-04-2022 End: 01-04-2022 ambulatory RADHA FRIED Facility:[facility] Start: 12-25-2021 End: 12-26-[address] EUSEBIO LAM . Facility:[facility] Start: 2021 End: [address] EUSEBIO LMA . Facility:[facility] Start: 09-29-2021 End: 09-30-[address] EUSEBIO LAM . Facility:[facility] Start: 09-25-2021 End: 09-26-[address] EUSEBIO LAM . Facility:[facility] Start: 09-08-[address] EUSEBIO LAM . Facili ty:[facility] Start: 08-29-2021 End: 08-29-[address] ANITA MURRAY . Facility:[facility] Start: 06-01-2019 End: 06-01-2019 Emergency department patient visit ANN-MARIE Dc [facility] Start: 06-01-2019 End: 06-01-2019 Emergency department patient visit Victorino Sullivan Work Phone: [facility] ED Comment on above: Sprain of right ankl e, unspecified ligament, initial encounter (Primary Dx); Contusion of back wall of thorax, unspecified laterality, initial encounter Start: 05-25-2019 End: 05-25-2019 Emergency department patient visit ANN-MARIE Dc [facility] Start: 05-24-2019 End: 05-25-2019 Emergency department patient visit Alexandria Siddiqui Work Phone: [facility] ED Comment on above: Sprain of right ankl e, unspecified ligament, initial encounter (Primary Dx) Start: 05-15-2019 End: 05-16-2019 Patient encounter procedure TRUDY VILLEGAS [facility] Start: 05-15-2019 End: 05-15-2019 Subsequent hospital visit by physician Ann-Marie HARRELL [facility] Comment on above: Amenorrhea Start: 03-12-2019 End: 03-12-2019 Emergency department patient visit ANN-MARIE Dc [facility] Start: 01-07-2019 End: 01-08-2019 Emergency department patient visit ANN-MARIE Dc [facility] Start: 01-07-2019 End: 01-08-2019 Emergency department patient visit Ann-Marie Engle Work Phone: [facility] ED Comment on above: Dyspepsia (Primary D x); Atypical chest pain Start: 2018 End: 2018 Emergency department patient visit ANN-MARIE ASH [facility] Start: 2018 End: 2018 Emergency department patient visit Kosta Lozano Work Phone: [facility] ED Comment on above: examinatio n or test, negative result (Primary Dx) Start: 09-12-2018 End: 09-12-2018 Emergency department patient visit ANN-MARIE Dc [facility] Procedures Date Procedure Procedure Detail Performing Clinician Start: 08-03-2024 US OB BPP W NON-STRESS Eusebio Carole DO Work Phone: Start: 08-03-2024 US OB GROWTH Eusebio Fazi o DO Work Phone: Start: 07-26-2024 MLR HEMOGLOBIN A1C Core y Carole DO Work Phone: Start: 07-26-2024 Urnls dip stick/tabl et rgnt non-auto w/o micrscp Radha GARCIA Work Phone: Start: 06-28-2024 Urnls dip stick/tabl et rgnt non-auto w/o micrscp Radha GARCIA Work Phone: Start: 05-16-2024 RECURRENT VAGINITIS (HTRX) Eusebio Carole DO Work Phone: Start: 05-16-2024 Urnls dip stick/tabl et rgnt non-auto w/o micrscp Eusebio Carole DO Work Phone: Start: 05-16-2024 IGP,APTIMA HPV,AGE GDLN Eusebio Carole DO Work Phone: Start: 04-17-2024 Urnls dip stick/tabl et rgnt non-auto w/o micrscp Radha GARCIA Work Phone: Start: 02-29-2024 BOX TEST Eusebio kendrick DO Work Phone: Start: 02-18-2024 BOX TEST Eusebio kendrick DO Work Phone: Start: 11-03-2023 ALL CBC WITH AUTO DIFF Eusebio Lam DO Work Phone: Start: 01-29-2022 Delivery of Products [...] Radex ankle complete minimum 3 views Victorino Cuate Laurie Work Phone: Start: 06-01-2019 Radex spine thoracic 3 views Victorino Sullivan Work Phone: Start: 06-01-2019 Urine test visual color cmprsn meths Victorino Sullivan Work Phone: Start: 05-25-2019 DURAMEDIC ORTHOPEDIC SUPPLIES TRUDY BEAM Start: 05-25-2019 Radex ankle complete minimum 3 views TRUDY BEAM Start: 05-25-2019 Radex ankle complete minimum 3 views Alexandria Siddiqui Work Phone: Start: 05-15-2019 Gonadotropin chorion ic quantitative TRUDY BEAM Start: 05-15-2019 Gonadotropin chorion ic quantitative Trudy A Beam Work Phone: Start: 03-12-2019 DURAM[employer]TH[employer] SUPPLIES [...] 01-07-2019 End: 01-07-2019 Assay of troponin quantitative Ann-aMrie Engle Work Phone: Start: 01-08-2019 Blood count complete auto&auto difrntl wbc Ann-Marie Engle Work Phone: Start: 01-08-2019 Comprehensive metabo lic panel Ann-Marie Engle Work Phone: Start: 01-08-2019 Fibrin dgradj produc ts d-dimer quantitative Ann-Marie Engle Work Phone: Start: 01-08-2019 Gonadotropin chorion ic qualitative Ann-Marie Engle Work Phone: Start: 01-07-2019 Radiologic exam ches t 2 views Ann-Marie Engle Work Phone: Start: 2018 Urine test visual [...] Radex ankle complete minimum 3 views ANN-MARIE ASH Plan of Treatment Date Care Activity Detail Author Start: 08-09-2024 End: 08-09-2024 Patient encounter procedure 08/09/2024 8:30 AM EDT Routine [facility] [address] [place] [id number] Megan Diego, DRIVER/GUIDE [address] [facility] [place] [address] [facility] Start: 07-26-2024 End: 07-26-2024 Patient encounter procedure 07/26/2024 11:10 AM EDT Rout[facility] [address] [facility] [place] [address] Eusebio Lam DO [address] [facility] [address] [place], [place] [id number] [facility] Start: 07-13-2024 End: 01-12-2025 US biophysical profile w non stress test US biophysical profile w non stress test Imaging Routine 30 weeks gestation of H/O delivery, currently Expected: 07/13/2024 (Approximate), Expires: 01/12/2025 [facility] Comment on above: Expected: 07/13/2024 (Approximate), Expires: 01/12/2025 Start: 07-13-2024 End: 11-12-2024 US for US OB follow up transabdominal approach Imaging Routine 30 weeks gestation of H/O delivery, currently Expected: 07/13/2024 (Approximate), Expires: 11/12/2024 [facility] Comment on above: Expected: 07/13/2024 (Approximate), Expires: 11/12/2024 Start: 07-13-2024 End: 07-13-2024 Patient encounter procedure [facility] Comment on above: Arrived Start: 07-13-2024 End: 07-13-2024 Professional / ancillary services management 07/13/2024 10:00 AM EDT Ancillary Procedure [facility] [address] [facility] [place] [address] [facility] Start: 06-28-2024 End: 06-28-2024 Patient encounter procedure 06/28/2024 10:10 AM EDT Routine [facility] [address] [place] [id number] Radha Avila PA [address] [place] [address] [facility] Start: 06-28-2024 End: 06-28-2024 Professional / ancillary services management 06/28/2024 9:30 AM EDT Ancillary Procedure [facility] [address] [place] [id number] [facility] Start: 06-13-2024 End: 06-13-2024 Patient encounter procedure [facility] Comment on above: Arrived Start: 05-16-2024 End: 05-16-2025 CBC panel - Blood by Automated count CBC Lab Routine Diabetes mellitus screening Expected: 05/16/2024 (Approximate), Expires: 05/16/2025 [facility] Work Phone: Comment on above: Expected: 05/16/2024 (Approximate), Expires: 05/16/2025 Start: 05-16-2024 End: 05-16-2025 Measurement of glucose 1 hour after glucose challenge for glucose tolerance test Glucose tolerance, 1 hour Lab Routine Diabetes mellitus screening Expected: 05/16/2024 (Approximate), Expires: 05/16/2025 [facility] Comment on above: Expected: 05/16/2024 (Approximate), Expires: 05/16/2025 Start: 05-16-2024 End: 05-16-2024 Patient encounter procedure [facility] Comment on above: Arrived Start: 05-08-2024 End: 05-08-2024 Professional / ancillary services management 05/08/2024 9:30 AM EDT Ancillary Procedure [facility] [address] [place] [id number] [facility] Start: 04-17-2024 End: 04-17-2025 Alpha fetoprotein, maternal Alpha fetoprotein, maternal Lab Routine 17 weeks gestation of Second trimester Screening, , for anatomic survey Expected: 04/17/2024 (Approximate), Expires: 04/17/2025 [facility] Work Phone: Comment on above: Expected: 04/17/2024 (Approximate), Expires: 04/17/2025 Start: 04-17-2024 End: 04-17-2025 US for US OB 14+ weeks anatomy scan Imaging Routine Screening, , for anatomic survey Expected: 04/17/2024, Expires: 04/17/2025 [facility] Comment on above: Expected: 04/17/2024 , Expires: 04/17/2025 Start: 04-17-2024 End: 04-17-2024 Patient encounter procedure 04/17/2024 1:10 PM EDT Routine [facility] [address] [facility] [place] [id number] Radha Avila PA [address] [facility] [place] [address] [facility] Start: 03-13-2024 End: 03-13-2024 ambulatory 03/13/2024 8:40 AM EST Initial [facility] [address] [place] [phone] Eusebio Lam, DO [address] [place] [address] [facility] Start: 01-20-2024 End: 01-20-2024 Patient encounter procedure 01/20/2024 11:20 AM EST Office Visit [facility] [address] [place] [phone] Eusebio Lam, DO [address] [place] [address] [facility] Start: 08-31-2023 DTaP/Tdap/Td vaccine (5 - Td) DTaP/Tdap/Td vaccine (5 - Td) [place], [place] Start: 10-10-2019 Influenza vaccination Flu vacc ine (Season Ended) [place], [place] Start: 12-02-2018 DTaP/Tdap/Td vaccine (1 - Tdap) DTaP/Tdap/Td vaccine (1 - Tdap) [place] Start: 10-09-2018 Influenza vaccination Flu vaccine (# 1) [place] Start: 08-04-2016 Chlamydia screen Chlamydia screen [place], [place] Start: 08-04-2016 Screening for Chlamy penelope trachomatis Chlamydia screen [place], [place] Start: 12-02-2014 HIV screen HIV screen [place], [place] Start: 12-02-2014 HIV screening HIV screen [facility] [place], [place] Start: 12-02-2014 HPV vaccine (1 - Fem joselyn 3-dose series) HPV vaccine (1 - Female 3-dose series) [place], [place] Start: 12-02-2012 Varicella Vaccine (1 of 2 - 13+ 2-dose series) Varicella Vaccine (1 of 2 - 13+ 2-dose series) [place], [place] Start: 12-02-2010 DTaP/Tdap/Td vaccine (1 - Tdap) DTaP/Tdap/Td vaccine (1 - Tdap) [place] Start: 12-02-2010 HPV vaccine (1 - Fem joselyn 2-dose series) HPV vaccine (1 - Female 2-dose series) [place] Start: 12-02-2005 Pneumococcal 0-64 ye ars Vaccine (1 of 1 - PPSV23) Pneumococcal 0-64 years Vaccine (1 of 1 - PPSV23) [place], [place] Start: 2003 Varicella vaccine (2 of 2 - 2-dose childhood series) Varicella vaccine (2 of 2 - 2-dose childhood series) [place] Start: 12-02-2000 Varicella Vaccine (1 of 2 - 2-dose childhood series) Varicella Vaccine (1 of 2 - 2-dose childhood series) [place] CBC W Auto Different ial panel - Blood CBC and differential Lab Routine Weight loss Ordered: 11/03/2023 [facility] Work Phone: Comment on above: Ordered: 11/03/2023 CBC W Auto Different ial panel - Blood CBC and differential Lab Routine Third trimester Ordered: 07/13/20[address] [facility] Comment on above: Ordered: 07/13/2024 CHLAMYDIA TRACHOMATI S (GENITO/STI) CHLAMYDIA TRACHOMATIS (GENITO/STI) Lab Routine Exposure to STD Ordered: 05/16/2024 [facility] Comment on above: Ordered: 05/16/2024 Cytology Cervical or vaginal smear or scraping study Pap Smear Pathology and Cytology Routine Well woman exam with routine gynecological exam Ordered: 05/16/2024 [facility] Comment on above: Ordered: 05/16/2024 Hemoglobin A1c/Hemoglobin.total in Blood Hemoglobin A1c Lab Routine Weight loss Ordered: 11/03/2023 [facility] Comment on above: Ordered: 11/03/2023 Hemoglobin A1c/Hemoglobin.total in Blood Hemoglobin A1c Lab Routine Third trimester Ordered: 07/13/2024 [facility] Work Phone: Comment on above: Ordered: 07/13/2024 Neisseria gonorrhoea e DNA [Presence] in Unspecified specimen by STEFANIE with probe detection Neisseria gonorrhea DNA probe, direct Lab Routine Exposure to STD Ordered: 05/16/2024 [facility] Comment on above: Ordered: 05/16/2024 SURESWAB(R) ADVANCED VAGINITIS PLUS, TMA SURESWAB(R) ADVANCED VAGINITIS PLUS, TMA Pathology and Cytology Routine Vaginal discharge Ordered: 05/16/2024 [facility] Comment on above: Ordered: 05/16/2024 Thyrotropin [Units/volume] in Serum or Plasma TSH Lab Routine Weight loss Ordered: 11/03/2023 [facility] Comment on above: Ordered: 11/03/2023 Thyroxine (T4) free [Mass/volume] in Serum or Plasma T4, free Lab Routine Weight loss Ordered: 11/03/[address] [facility] Comment on above: Ordered: 11/03/2023 End: 12-14-2024 US for US OB follow up transabdominal approach Imaging Routine H/O delivery, currently 4 Occurrences starting 06/13/2024 until 12/14/2024 [facility] Work Phone: Comment on above: 4 Occurrences starti ng 06/13/2024 until 12/14/2024 Payers Date Payer Category Payer Unknown UNKNOWN 2022 Medicaid [id number] 2022 Medicaid [id number] 2018 Unknown [id number] 2018 Unknown [employer] xxxxxxxxxxx 2018-Present [phone] [address] [place] [address] xxxxxxxxxxx [id number]. [id number] 1999 Unknown [id number] 2.16.840.1.187642.3.579.2.176 1999 Unknown [id number] 2.16.840.1.718178.3.579.2.176 1999 Unknown [id number] 2.16.840.1.672681.3.579.2.176 1999 Unknown [id number] 2.16.840.1.217016.3.579.2.176 1999 Unknown [id number] 2.16.840.1.818444.3.579.2.175 1999 Unknown [id number] 2.16.840.1.938890.3.579.2.175 1999 Unknown [id number] 2.16.840.1.920461.3.579.2.175 1999 Unknown [id number] 2.16.840.1.002720.3.579.2.593 1999 Unknown [id number] 2.16.840.1.091913.3.579.2.593 1999 Unknown [id number] 2.16.840.1.079764.3.579.2.593 1999 Unknown [id number] 2.16.840.1.493206.3.579.2.593 1999 Unknown [id number] 2.16.840.1.373115.3.579.2.593 1999 Unknown [id number] 2.16.840.1.370092.3.579.2.593 1999 Unknown [id number] 2.16.840.1.793615.3.579.2.593 1999 Unknown [id number] 2.16.840.1.842605.3.579.2.593 1999 Unknown [id number] 2.16.840.1.542319.3.579.2.593 1999 Unknown [id number] 2.16.840.1.002122.3.579.2.593 1999 Unknown [id number] 2.16.840.1.659082.3.579.2.593 1999 Unknown [id number] 2.16.840.1.246633.3.579.2.593 1999 Unknown [id number] 2.16.840.1.477618.3.579.2.593 1999 Unknown [id number] 2.16.840.1.094895.3.579.2.718 1999 Unknown [id number] 2.16.840.1.725096.3.579.2.1286 1999 Unknown [id number] 2.16.840.1.259711.3.579.2.1286 1999 Unknown [id number] 2.16.840.1.725809.3.579.2.1286 1999 Unknown [id number] 2.16.840.1.767230.3.579.2.1286 1999 Unknown [id number] 2.16.840.1.990842.3.579.2.1286 1999 Unknown [id number] 2.16.840.1.656292.3.579.2.1286 1999 Unknown [id number] 2.16.840.1.404779.3.579.2.1286 1999 Unknown [id number] 2.16.840.1.140816.3.579.2.1286 1999 Unknown [id number] 2.16.840.1.260648.3.579.2.1259 1999 Unknown [id number] 2.16.840.1.576316.3.579.2.1259 1999 Unknown [id number] 2.16.840.1.470748.3.579.2.1259 1999 Unknown [id number] 2.16.840.1.428613.3.579.2.1259 1999 Unknown [id number] 2.16.840.1.926581.3.579.2.1259 1999 Unknown [id number] 2.16.840.1.477879.3.579.2.1259 1999 Unknown [id number] 2.16.840.1.321340.3.579.2.1259 1999 Unknown [id number] 2.16.840.1.463394.3.579.2.1259 1999 Unknown [id number] 2.16.840.1.428155.3.579.2.1259 1999 Unknown [id number] 2.16.840.1.696559.3.579.2.1259 1959 Self-pay 1959 Unknown [id number] 1959 Unknown [id number] Unknown [id number] 2.16.840.1.039808.3.579.2.593 Social History Date Type Detail Facility Start: 06-01-2019 End: 08-05-2022 Tobacco smoking status [facility] Current every day smoker [facility] Start: 06-01-2019 End: 11-03-2023 Cigarettes smoked current (pack per day) - Reported [facility] [place], [place] Start: 01-07-2019 End: 06-01-2019 Alcohol intake Current non-drinker of alcohol (finding) [place], [place] Start: 03-03-2011 Tobacco Comment Mother smokes [place] Start: 1999 Sex Assigned At Not on file [place] Exposure to SARS-CoV -2 (event) Unable to assess [place] Start: 2018 End: 11-03-2023 Alcohol intake No [place] History of tobacco use Cigarette Smoker [facility] Start: 03-09-2023 End: 05-16-2024 Alcohol intake Current drinker of alcohol (finding) [facility] Start: 08-05-2022 Tobacco Comment <1PPPD [facility] Start: 08-05-2022 Alcohol Comment heavy alcohol use [facility] Start: 12-29-2023 [facility] Clinical Notes 03-09-2023 to 07-26-2024 Megan Diego NP - 07/26/2024 11:10 AM Javier Ye LPN - 07/13/2024 10:30 AM JOSE Albright - 06/28/2024 10:10 AM En Moncada LPN - 06/13/2024 11:40 AM EDT Note Date & Type Note Facility 07-26-2024 History of Presen t illness Narrative Reason for Appointment: Patient ID: [...] day smoker [place] History of miscarriage, currently ([facility]) HISTORY PAST MEDICAL HISTORY SOCIAL HISTORY Past Medical History: Diagnosis Date Carrier of spinal muscular atrophy Current every day smoker [place] History of miscarriage, currently ([facility]) Social History Tobacco Use Smoking status: Every [...] nursing note reviewed. Exam conducted with a sanitary napkin machine tender present. Vitals: Estimated body mass index is 28.61 kg/m as calculated from the following: Height as of 03/12/22: 5' 3 . Weight as of this encounter: 161 lb 8 oz. BP: 102/62 No LMP recorded. Patient is . ASSESSMENT & PLAN ICD-10-CM 1. Third trimester ([facility]) Z34.93 POCT urinalysis dipstick manually resulted 2. 31 weeks gestation of ([facility]) Z3A.31 Return OB: Patient presents today [...] Eusebio Lam DO documented in this encounter [facility] 07-13-2024 History of Presen t illness Narrative Reason for Appointment: Patient ID: [...] nursing note reviewed. Exam conducted with a sanitary napkin machine tender present. Vitals: Estimated body mass index is 27.81 kg/m as calculated from the following: Height as of 03/12/22: 5' 3 . Weight as of this encounter: 157 lb. BP: 110/68 No LMP recorded. Patient is . ASSESSMENT & PLAN ICD-10-CM 1. Third trimester Z34.93 Hemoglobin A1c CBC and differential CANCELED: POCT urinalysis dipstick manually resulted 2. 30 weeks gestation of Z3A.30 US OB follow up transabdominal approach US biophysical profile w non stress test 3. H/O delivery, currently O09.899 US OB follow up transabdominal approach US biophysical profile w non stress test Patient presents today for a routine obstetrics appointment. Patient is currently 30w0d with a Estimated Date of Delivery: 09/21/24. Patient has not yet obtained 1 hour gtt or CBC. New order given to patient to have Hba1c and CBC obtained. Patient also given orders to have NST/BPP's to start at 32 weeks gestation & growth scan to be done every 4 weeks, last scan was obtained 2 weeks ago. Patient given handout with education on NST/BPP and calendar to keep track of her weekly appointments. Patient to return to clinic in 2 weeks for routine OB care. Documented by Sunshine Ye LPN... on behalf of: Eusebio Lam DO documented in this encounter [facility] 06-28-2024 History of Presen t illness Narrative Reason for Appointment: Patient ID: Hawk iKng is a 23 y.o. female who presents [...] Exam Constitutional: Appearance: Normal appearance. She is normal weight. HENT: Head: Normocephalic. Cardiovascular: Rate and Rhythm: Normal rate. Pulses: Normal pulses. Pulmonary: Effort: Pulmonary effort is normal. Breath sounds: Normal breath sounds. Abdominal: Palpations: Abdomen is soft. Musculoskeletal: General: Normal range of motion. Neurological: General: No focal deficit present. Mental Status: She is alert and oriented to person, place, and time. Psychiatric: Mood and Affect: Mood normal. Behavior: Behavior normal. Thought Content: Thought content normal. Judgment: Judgment normal. Vitals and nursing note reviewed. Vitals: Estimated body mass index is 28.3 kg/m as calculated from the following: Height as of 03/12/22: 5' 3 . Weight as of this encounter: 159 lb 12 oz. BP: 110/60 No LMP recorded. Patient is . ASSESSMENT & PLAN ICD-10-CM 1. Second trimester Z34.92 POCT urinalysis dipstick manually resulted 2. 27 weeks gestation of Z3A.27 Return OB: Patient presents today for a routine obstetrics appointment. Patient is currently 27w6d . Patient states she is doing well but has complaints of being tired due to current . Patient has verbalizes frequent movement. labor precautions was discussed/given and patient was instructed to perform kick counts three times a day. Growth today shows efw at 1312g, 80%, and dalton 17.1 Patient will be starting NST an Bpp next week Orders Placed This Encounter Procedures POCT urinalysis dipstick manually resulted Follow Up: Patient is to return to office in 2 week for routine OB appointment. Documented by JOSE Vanessa on behalf of: JOSE Vanessa documented in this encounter [facility] 06-13-2024 History of Presen t illness Narrative Reason for Appointment: Patient ID: Hawk King is a 23 y.o. female who presents for Routine Visit Patient presents today for Return OB appointment. MEDICATIONS Current Outpatient Medications Medication Instructions ondansetron ODT (ZOFRAN-ODT) 4 mg, Oral, Every 6 hours PRN MV-Min-Fe Fum-FA-DHA ( 1 PO) 1 each, [...] nursing note reviewed. Exam conducted with a sanitary napkin machine tender present. Vitals: Estimated body mass index is 27.99 kg/m as calculated from the following: Height as of 03/12/22: 5' 3 . Weight as of this encounter: 158 lb. BP: 122/74 No LMP recorded. Patient is . ASSESSMENT & PLAN ICD-10-CM 1. Second trimester Z34.92 2. 25 weeks gestation of Z3A.25 3. H/O delivery, currently O09.899 US OB follow up transabdominal approach 4. Vapes nicotine containing substance Z72.0 Return OB: Patient presents today for a routine obstetrics appointment. Patient is currently 25w5d . Patient states she is doing well but has complaints of being tired due to current . Patient has verbalizes frequent movement. labor precautions was discussed/given. Pt given standing order for growth to occur every 4 weeks until delivery. Orders Placed This Encounter Procedures US OB follow up transabdominal approach Follow Up: Patient is to return to office in 2 week for routine OB appointment. Documented by Jing Moncada LPN on behalf of: Eusebio Lam DO documented in this encounter [facility] 05-16-2024 History of Presen t illness Narrative Reason for Appointment: Patient ID: Hawk King is a 23 y.o. female who presents for Routine Visit Patient presents today for Annual Exam., STD Check., and Return OB appointment. MEDICATIONS Current Outpatient Medications Medication Instructions ondansetron ODT (ZOFRAN-ODT) 4 mg, Oral, Every 6 hours PRN MV-Min-Fe Fum-FA-DHA ( 1 PO) 1 each, [...] Constitutional: Appearance: Normal appearance. She is well-developed. Genitourinary: Vulva normal. Breasts: Breasts are soft. Right: Normal. Left: Normal. Cardiovascular: Rate and Rhythm: Normal rate and [...] nursing note reviewed. Exam conducted with a sanitary napkin machine tender present. Vitals: Estimated body mass index is 25.86 kg/m as calculated from the following: Height as of 03/12/23: 5' 3 . Weight as of this encounter: 146 lb. BP: 120/70 No LMP recorded. Patient is . ASSESSMENT & PLAN ICD-10-CM 1. 21 weeks gestation of Z3A.21 POCT urinalysis dipstick manually resulted CANCELED: POCT urinalysis dipstick manually resulted 2. Second trimester Z34.92 POCT urinalysis dipstick manually resulted CANCELED: POCT urinalysis dipstick manually resulted 3. Diabetes mellitus screening Z13.1 CBC Glucose tolerance, 1 hour CBC Glucose tolerance, 1 hour 4. Well woman exam with routine gynecological exam Z01.419 Pap Smear 5. Exposure to STD Z20.2 CHLAMYDIA TRACHOMATIS (GENITO/STI) Neisseria gonorrhea DNA probe, direct 6. Vaginal discharge N89.8 SURESWAB(R) ADVANCED VAGINITIS PLUS, TMA 7. Nausea R11.0 ondansetron ODT (Zofran-ODT) 4 MG disintegrating tablet Return OB/Annual Exam: Patient presents today for an annual exam/routine obstetrics appointment. Patient is currently 21w5d . Patient is doing well and states she has no complaints. Pap/cultures was obtained without difficulty and patient will see [facility] next Wednesday. Orders Placed This Encounter Procedures CBC Glucose tolerance, 1 hour CHLAMYDIA TRACHOMATIS (GENITO/STI) Neisseria gonorrhea DNA probe, direct POCT urinalysis dipstick manually resulted Follow Up: Patient is to return to our office in 4 weeks for routine OB appointment Documented by Jing Moncada LPN on behalf of: Eusebio Lam DO documented in this encounter [facility] 04-17-2024 History of Presen t illness Narrative Reason for Appointment: Patient ID: [...] Exam Constitutional: Appearance: Normal appearance. She is normal weight. HENT: Head: Normocephalic. Cardiovascular: Rate and Rhythm: Normal rate. Pulses: Normal pulses. Pulmonary: Effort: Pulmonary effort is normal. Breath sounds: Normal breath sounds. Abdominal: Palpations: Abdomen is soft. Musculoskeletal: General: Normal range of motion. Neurological: General: No focal deficit present. Mental Status: She is alert and oriented to person, place, and time. Psychiatric: Mood and Affect: Mood normal. Behavior: Behavior normal. Thought Content: Thought content normal. Judgment: Judgment normal. Vitals and nursing note reviewed. Vitals: Estimated body mass index is 23.52 kg/m as calculated from the following: Height as of 03/12/22: 5' 3 . Weight as of this encounter: 132 lb 12.8 oz. BP: 100/60 No LMP recorded. Patient is . ASSESSMENT & PLAN ICD-10-CM 1. 17 weeks gestation of Z3A.17 POCT urinalysis dipstick manually resulted Alpha fetoprotein, maternal Alpha fetoprotein, maternal 2. Second trimester Z34.92 POCT urinalysis dipstick manually resulted Alpha fetoprotein, maternal Alpha fetoprotein, maternal 3. Screening, , for anatomic survey Z36.89 Alpha fetoprotein, maternal US OB 14+ weeks anatomy scan Alpha fetoprotein, maternal Return OB: Patient presents today for a routine obstetrics appointment. Patient is currently 17w4d . Patient states she is doing well but has complaints of being tired due to current . Patient has verbalizes frequent movement. Orders Placed This Encounter Procedures US OB 14+ weeks anatomy scan Alpha fetoprotein, maternal POCT urinalysis dipstick manually resulted Patient being referred to [facility], states she went into labor at 35 weeks previously. Follow Up: Patient is to return to office in 4 week for routine OB appointment. Documented by JOSE Vanessa on behalf of: JOSE Vanessa documented in this encounter [facility] 03-22-2024 History of Presen t illness Narrative Reason for Appointment: Patient ID: Hawk King is a 23 y.o. female who presents for Routine Visit Patient presents today for Return OB appointment. MEDICATIONS Current Outpatient Medications Medication Instructions buPROPion SR (WELLBUTRIN SR) 150 mg, Oral, 2 times daily, Take 1 tablet daily for 3 days, then take 1 tablet daily for 4 days. Quit smoking on day 7 and continue to take medication twice daily. ALLERGIES No Known Allergies PROBLEMS Active Ambulatory [...] Negative. Allergic/Immunologic: Negative. OBJECTIVE Objective: Physical Exam Neurological: Mental Status: She is alert. Vitals and nursing note reviewed. Vitals: Estimated body mass index is 22.34 kg/m as calculated from the following: Height as of 03/12/22: 5' 3 . Weight as of this encounter: 126 lb 1.9 oz. BP: 110/74 No LMP recorded. Patient is . ASSESSMENT & PLAN ICD-10-CM 1. Second trimester Z34.92 2. 14 weeks gestation of Z3A.14 New OB: Patient presents today for 1st time obstetrics appointment with provider. Patient is currently 14w0d . Patients history has been reviewed in great detail including any potential risks. Patient stated she currently has no complaints. Expectations throughout regarding labs, ultrasounds, and appointments have been discussed with the patient in detail. It was reiterated that the patient is to drink 6-8 glasses of water a day, eat 6 small meals a day, do not consume raw or undercooked meat, and stay away from [facility]. Patient has been consulted regarding any further do's and don'ts of . Patient voiced understanding and all questions and concerns were answered. No orders of the defined types were placed in this encounter. Follow Up: Patient is to return in 4 weeks for routine OB appointment. Documented by Jing Moncada LPN on behalf of: JOSE Vanessa documented in this encounter [facility] 01-11-2024 Note Education Materials Obstetrics and Gynecology Bacterial Vaginosis Take the antibiotic as prescribed. Follow-up with your [facility] ANALY[facility] to review this emergency department visit. Return [...] these instructions at home: Medicines ? Take [id number] and prescription medicines as told by your [...] for Disease Control and Prevention: www.cdc.gov ? [employer]: www.ashastd.org ? Office on [...] provider. Document Revised: 07/25/2020 Document Reviewed: 07/25/2020 [employer] Patient Education ? 2023 Check-Cap. [facility] 11-03-2023 History of Presen t illness Narrative Reason for Appointment: Patient ID: Hawknellie King is a 22 y.o. female who [...] nursing note reviewed. Exam conducted with a sanitary napkin machine tender present. Vitals: Estimated body mass index is [...] Eusebio Lam DO documented in this encounter [facility] 03-09-2023 History of Presen t illness Narrative Reason for Appointment: Patient ID: [...] nursing note reviewed. Exam conducted with a sanitary napkin machine tender present. Vitals: Estimated body mass index is [...] Eusebio Lam DO documented in this encounter [facility] Healthcare Evaluation note Diagnosis 6 weeks follow-up control counseling documented [facility] encounter [facility] Diagnosis Follow-up encounter involving medication depression ([facility]) Mental disorders of mother, complicating , childbirth, or the puerperium, unspecified as to episode of care Weight loss Loss of weight documented [facility] this encounter [facility]* Diagnosis Second trimester state, incidental 14 weeks gestation of documented in this encounter [facility]* Diagnosis 17 weeks gestation of Second trimester state, incidental Screening, , for anatomic survey Encounter for anatomic survey documented [facility] Diagnosis 21 weeks gestation of Second trimester state, incidental Diabetes mellitus screening Screening for diabetes mellitus Well woman exam with routine gynecological exam Routine gynecological examination Exposure to STD Vaginal discharge Leukorrhea, not specified as infective Nausea Nausea alone documented [facility]* Diagnosis Second trimester state, incidental 25 weeks gestation of H/O delivery, currently Vapes nicotine containing substance documented [facility]* Diagnosis Second trimester state, incidental 27 weeks gestation of documented [facility]* Diagnosis Third trimester state, incidental 30 weeks gestation of H/O delivery, currently documented [facility]* Diagnosis Third trimester ([facility]) state, incidental 31 weeks gestation of ([facility]) documented in this encounter [facility] Summary Purpose Family History No Family History Records FoundNo Family History Records FoundNo Family History Records FoundNo Family History Records FoundNo Family History Records FoundNo Family History Records FoundNo Family History Records FoundNo Family History Records FoundNo Family History Records Found Advance Directives Documents on File Type Date Recorded Patient Paper Sorter Expl anation Advance Directives and Living Will Power of Marking Room Supervisor Discharge Instructions * Instructions* Victorino Sullivan MD [...] fracture for several days THANK YOU!!! From [facility] and [facility] On behalf of the Emergency Department staff at [facility], I would like to thank you for giving us the opportunity to address your health care needs and concerns. We hope that during your visit, our service was delivered in a professional and caring manner. Please keep [facility] in mind as we walk with you [...] how we did during your visit at [email or web address] and let us know about your experience * Attachments The following attachments cannot be sent through Care Everywhere. * Ankle Sprain ([place] Citizen) documented in this encounter* Attachments The following attachments cannot be sent through Care Everywhere. * Ankle Sprain ([place] Citizen) documented in this encounter* Instructions* Ann-Marie Engle [...] be sent through Care Everywhere. * Dyspepsia ([place] Citizen) * Chest Pain ([place] Citizen) documented in this encounter* Attachments The following attachments cannot be sent through Care Everywhere. * Amenorrhea: Secondary ([place] Citizen) documented in this encounter Assessments Diagnosis Sprain [...] section and content) DATE CREATED AUTHOR 03/12/2019 [facility] DATE CREATED AUTHOR AUTHOR'S ORGANIZ ATION 06/01/2019 [facility] DATE CREATED AUTHOR AUTHOR'S ORGANIZ ATION 07/17/2022 [facility] DATE CREATED AUTHOR AUTHOR'S ORGANIZ ATION 01/06/2024 [facility] DATE CREATED AUTHOR AUTHOR'S ORGANIZ ATION 01/13/2024 [facility] DATE CREATED AUTHOR AUTHOR'S ORGANIZ ATION 02/18/2024 [facility] DATE CREATED AUTHOR AUTHOR'S ORGANIZ ATION 02/18/2024 [facility] DATE CREATED AUTHOR AUTHOR'S ORGANIZ ATION 05/26/2024 [facility] DATE CREATED AUTHOR AUTHOR'S ORGANIZ ATION 07/29/2024 [facility] Special[facility] EPIC Reason for Visit (unrecogniz ed section and content) Reason Comments Ankle Pain Reason Comments Ankle Pain patient sts she twis larissa her ankle in the shower and fell, denies LOC at this time, right ankle Reason Comments Chest Pain Shaking bilateral hands Abdominal Cramping Reason Comments Test Reason Comments Care Contraception Reason Comments Discuss medication Reason Comments Routine Visit Care Teams (unrecognized sec tion and content) Travel Administrator Relationship Specialty Start Date End Date Ann-Marie Ash MD [address] [place] [phone] PCP - General Family Medicine 07/03/22 Travel Administrator Relationship Specialty Start Date End Date Ann-Marie Ash MD [address] [place] [address] [phone] PCP - General Family Medicine 07/03/22 Travel Administrator Relationship Specialty Start Date End Date Ann-Marie Ash MD [address] [place] [address] [phone] PCP - General Family Medicine 07/03/22 Travel Administrator Relationship Specialty Start Date End Date Ann-Marie Ash MD [address] [place] [address] [phone] PCP - General Family Medicine 07/03/22 Travel Administrator Relationship Specialty Start Date End Date Ann-Marie Ash MD [address] [place] [address] [phone] PCP - General Family Medicine 07/03/22 Travel Administrator Relationship Specialty Start Date End Date Ann-Marie Ash MD [address] [place] [address] [phone] PCP - General Family Medicine 07/03/22 Travel Administrator Relationship Specialty Start Date End Date Ann-Marie Ash MD [address] [place] [address] [phone] PCP - General Family Medicine 07/03/22 Travel Administrator Relationship Specialty Start Date End Date Ann-Marie Ash MD [address] [place] [address] [phone] PCP - General Family Medicine 07/03/22 Travel Administrator Relationship Specialty Start Date End Date Ann-Marie Ash MD [address] [place] [address] [phone] PCP - General Family Medicine 07/03/22 Travel Administrator Relationship Specialty Start Date End Date Ann-Marie Ash MD [address] [place] [address] [phone] PCP - General Family Medicine 07/03/22 Travel Administrator Relationship Specialty Start Date End Date Ann-Marie Ash MD [address] [place] [address] [phone] PCP - General Family Medicine 07/03/22 Travel Administrator Relationship Specialty Start Date End Date Ann-Marie Ash MD [address] [place] [address] [phone] PCP - General Family Medicine 07/03/22 FOR RECORDS PERTAINING TO PATIENTS WHO ARE [...] BE BASED ON THE PRIMARY CLINICAL RECORDS. [facility] [employer] [facility]. provides no warranty or guarantee of the accuracy or completeness of information in this document.
--- OUTSIDE RECORDS SUMMARY | 2024-08-05 13:00 | XMS_ITS | Encounter Summary ---
Author Organization [facility] Address [address] [place] [address] Care Team Providers Care Glass Rolling Machine Operator Name Role Phone Orlando Ash MD Primary Care Provider [phone] Encounter Details Date Type Department Care Team (Late Contact Info) Description 02/25/2024 Abstract [facility] [address] [place] [address] Eusebio Lam DO [address] [place] [address] Dr Jasmin [place], [place] [address] Social History Tobacco Use Types Packs/Day Years Used Date Smoking Tobacco: Every Day Cigarettes Comments:<1PPPD Alcohol Use Standard Drinks/Week Comments Yes 0 (1 standard drink = 0.6 oz pur e alcohol) heavy alcohol use Comments Unknown Sex and Gender Information Value Date Recorded Sex Assigned at Not on file Legal Sex Female 6:44 PM EDT Gender Identity Not on file Sexual Orientation Not on file documented as of this encounter Plan of Treatment Upcoming Encounters Date Type Department Care Team (Late st Contact Info) Description 08/09/2024 8:30 AM EDT Routine [facility] OB [address] [place], [place] [address] [address] Megan Diego NP [address] [facility] [place] [id number] documented as of this encounter Visit Diagnoses Not on filedocumented in this encounter Care Teams Glass Rolling Machine Operator Relationship Specialty Start Date End Date Orlando Ash MD [address] [place] [address] PCP - General Family Medicine 07/03/22 documented as of this encounter
--- OUTSIDE RECORDS SUMMARY | 2024-08-05 13:00 | XMS_ITS | Patient Health Record ---
Author Organization [facility] Address [address] [place], [place] [id number] Care Team Providers Care Psychology Technician Name Role Phone Chris Rodriguez Unavailable [phone] Reason For Referral No Information Social History Sex Assigned At : Social History Observation Description Sex Assigned At Female Plan Of Treatment No Information Insurance Providers Payer Name Payer Address Payer Phone Subscriber Number Group Number Insured Name Patient Relationship to Insured Coverage Start Date Coverage End Date [facility] [address] [place] [address] [id number] Hawk King Self - patient is the insured
--- OUTSIDE RECORDS SUMMARY | 2024-08-05 13:00 | XMS_ITS | Encounter Summary ---
Author Organization [facility] Address [id number] [address] [place] [address] Care Team Providers Care Unarmed Security Officer Name Role Phone Orlando Ash MD Primary Care Provider [phone] Encounter Details Date Type Department Care Team (Late st Contact Info) Description 04/21/2024 Orders Only Maternal- Medicine at [facility] [address] [place] [address] Eusebio Lam R, DO [address] [facility] [place] [address] Social History Tobacco Use Types Packs/Day Years Used Date Smoking Tobacco: Every Day Vaping/E-cigarettes Smokeless Tobacco: Never Alcohol Use Standard Drinks/Week Comments Yes 0 (1 standard drink = 0.6 oz pur e alcohol) occasional AUDIT-C Answer Date Recorded Frequency of Alcohol Consumption Never 04/26/2018 Average Number of Drinks Not on file 019 Frequency of Binge Drinking Not on file 04/08 Overall Financial Resource Strain (CARDIA) Answe r Date Recorded How hard is it for you to pa y for the very basics like food, housing, medical care, and heating? Not very hard 02/09/2024 PHQ-2 Answer Date Recorded Total Score 1 02/09/2024 Housing Instability Answer Date Recorde d Are you worried or concerned that in the next two months you may not have stable housing that you own, rent or stay in as a part of a household? No 02/09/2024 Childcare Answer Date Recorded Do problems getting child ca re make it difficult for you to work or study? No 02/09/2024 Employment Answer Date Recorded Employment Unknown 07/11/2018 Hunger Screening Answer Date Recorded Within the past 12 months we worried whether our food would run out before we got money to buy more. Never True 02/11/2024 Within the past 12 months th e food we bought just didn't last and we didn't have money to get more. Never True 02/11/2024 Purpose - Life Answer Date Recorded Purpose and direction in life Unknown Estimated Date of Delivery Comme nts Yes [...] Procedure Name Priority Date/Time Associated Diagnosis Comments UNLISTED LAB TEST Routine 03/07/2024 1:53 PM EST documented in this encounter Results * Unlisted Lab Test (03/07/2024 1:53 PM EST) us Eusebio Lam DO LAB BLOOD ORDERABLES Final Resu lt MANUALLY TRANSCRIBED RESULTS documented in this encounter Visit Diagnoses Not on filedocumented in this encounter Additional Health Concerns Assessment Noted Time PHQ-9 Depression Total Score: 1 02/08/19 25 9:58 AM EST documented as of this encounter Care Teams Unarmed Security Officer Relationship Specialty Start Date End Date Orladno Ash MD [address] [place] [address] PCP - General Family Medicine 06/09/18 documented as of this encounter
--- OUTSIDE RECORDS SUMMARY | 2024-08-05 13:00 | XMS_ITS | Encounter Summary ---
Author Organization [facility] Address [address] [facility], [place] [address] Care Team Providers Care Disk Sharpener Name Role Phone Orlando Ash MD Primary Care Provider [phone] Encounter Details Date Type Department Care Team (Late st Contact Info) Description 05/30/2024 Results Follow-Up [facility] [address] [facility] [address] Carol Winter LPN [address] [place] [address] Social History Tobacco Use Types Packs/Day Years [...] on file documented as of this encounter Miscellaneous Notes * Result Encounter Note - Carol Winter LPN - 05/30/2024 11:59 AM EDT Added to FS documented in this encounter Plan of Treatment Upcoming Encounters Date Type Department Care Team (Late st Contact Info) Description 08/09/2024 8:30 AM EDT Routine [facility] OB [address] [place] [phone] Megan Diego, PATROL DEPUTY SHERIFF [address] [place] [address] documented as of this encounter Visit Diagnoses Not on filedocumented in this encounter Care Teams Disk Sharpener Relationship Specialty Start Date End Date Orlando Ash MD [address] [place], [place] [id number] PCP - General Family Medicine 07/03/22 documented as of this encounter
--- OUTSIDE RECORDS SUMMARY | 2024-08-05 13:00 | XMS_ITS | Encounter Summary ---
Author Organization [facility] Address [address] [place] [address] Care Team Providers Care Sticker Hand Name Role Phone Janee Del Valle MD Unavailable Orlando Ash MD Primary Care Provider [phone] Encounter Details Date Type Department Care Team (Late st Contact Info) Description 07/03/2022 Clinisync Result Encounter [facility] External Department Unsolicited Eusebio Lam DO [address] [facility] [address] Jasmin [place], [facility] Social History Tobacco Use Types Packs/Day Years [...] AM EDT Routine [facility] OB [address] [place] [phone] Megan Diego, BUILDING CLEANING SUPERVISOR [address] [facility] [place] [address] documented as of this encounter Procedures Procedure Name Priority Date/Time Associated Diagnosis Comments US PREG TV 07/03/2022 9:49 AM EDT documented in this encounter Results * US PREG TV (07/03/2022 9:49 AM EDT) Anatomical Region Laterality Modality Other 07/03/2022 9:49 AM EDT Narrative 07/03/2022 5:20 PM EDT EXAMINATION: US PREG TV HISTORY: Missed period [...] authenticated by: CHEMA LEE Date: 2022-07-03 17:20 Procedure Note Radiology, Radiologist, MD - 07/03/2022 EXAMINATION: US PREG TV HISTORY: Missed period [...] authenticated by: CHEMA LEE Date: 2022-07-03 17:20 us Eusebio Carole DO [facility] Final Result documented in this encounter Visit Diagnoses Not on filedocumented in this encounter Care Teams Sticker Hand Relationship Specialty Start Date End Date Janee Del Valle MD [address] [place] [address] PCP - [place] [employer] 03/11/22 Orlando Ash MD [address] [place] [address] PCP - General Family Medicine 07/03/22 documented as of this encounter
--- OUTSIDE RECORDS SUMMARY | 2024-08-05 13:00 | XMS_ITS | Encounter Summary ---
Author Organization [facility] Address [address] [place] [address] Care Team Providers Care Corporate Treasurer Name Role Phone Orlando sAh MD Primary Care Provider [phone] Encounter Details Date Type Department Care Team (Late Contact Info) Description 02/24/2024 Abstract [facility] OB [address] [place] [address] [place] [address] Sunshine Ye LPN Social History Tobacco Use Types Packs/Day Years [...] Description 08/09/2024 8:30 AM EDT Routine [facility] OB [address] [place], [place] [address] [address] Megan Diego NP [address] [facility] [place] [address] documented as of this encounter Visit Diagnoses Not on filedocumented in this encounter Care Teams Corporate Treasurer Relationship Specialty Start Date End Date Orlando Ash MD [address] [place] [address] PCP - General Family Medicine 07/03/22 documented as of this encounter
--- OUTSIDE RECORDS SUMMARY | 2024-08-05 13:00 | XMS_ITS | Encounter Summary ---
Author Organization [facility] Address [address] [facility] [place] [address] Care Team Providers Care Digital Marketing Consultant Name Role Phone Orlando Ash MD Primary Care Provider [phone] Encounter Details Date Type Department Care Team (Late Contact Info) Description 03/08/2024 Abstract [facility] [address] [place] [address] Eusebio Lam DO [address] [place] [address] Dr Jasmin [place], [place] [address] Social History Tobacco Use Types Packs/Day Years [...] Description 08/09/2024 8:30 AM EDT Routine [facility] OB [address] [place], [place] [address] [address] Megan Diego NP [address] [facility] [place] [address] documented as of this encounter Visit Diagnoses Not on filedocumented in this encounter Care Teams Digital Marketing Consultant Relationship Specialty Start Date End Date Orlando Ash MD [address] [place] [address] PCP - General Family Medicine 07/03/22 documented as of this encounter
--- OUTSIDE RECORDS SUMMARY | 2024-08-05 13:00 | XMS_ITS | Encounter Summary ---
Author Organization [facility] Address [address] [place] [address] Care Team Providers Care News Specialist Name Role Phone Orlando Ash MD Primary Care Provider [phone] Encounter Details Date Type Department Care Team (Late st Contact Info) Description 05/25/2024 Orders Only [facility] OB [address] [facility] [place] [address] Carol Winter LPN [address] [place] [id number] Social History Tobacco Use Types Packs/Day Years [...] Description 08/09/2024 8:30 AM EDT Routine [facility] OB [address] [facility] [place] [address] Megan Diego, ANI [address] [facility] [place] [address] documented as of this encounter Procedures Procedure Name Priority Date/Time Associated Diagnosis Comments PAP SMEAR Routine 05/16/2024 12:00 AM EDT documented in this encounter Results * Pap Smear (05/16/2024 12:00 AM EDT) Swab Cervical swab / Unknown us Eusebio Carole DO LAB CYTOLOGY ORDERABLES Final Re sult EXTERNAL LAB documented in this encounter Visit Diagnoses Not on filedocumented in this encounter Care Teams News Specialist Relationship Specialty Start Date End Date Orlando Ash MD [address] [place] [address] PCP - General Family Medicine 07/03/22 documented as of this encounter
--- OUTSIDE RECORDS SUMMARY | 2024-08-05 13:00 | XMS_ITS | Encounter Summary ---
Author Organization [facility] Address [address] [place] [address] Care Team Providers Care Engineering Aid Name Role Phone Orlando Ash MD Primary Care Provider [phone] Encounter Details Date Type Department Care Team (Late Contact Info) Description 07/26/2024 Clinisync Result Encounter [facility] External Department Unsolicited Eusebio Lam DO [address] [facility] [address] [place] [id number] Social History Tobacco Use Types Packs/Day Years [...] AM EDT Routine [facility] [address] [facility] [place] [address] Megan Diego, BOATBUILDER APPRENTICE WOOD [address] [place] [address] documented as of this encounter Procedures Procedure Name Priority Date/Time Associated Diagnosis Comments MLR HEMOGLOBIN A1C Routine 07/26/2024 12 :13 PM EDT ALL CBC WITH AUTO DIFF Routine 07/26/2024 12:13 PM EDT documented in this encounter Results * (ABNORMAL) ALL CBC WITH AUTO DIFF (07/26/2024 12:13 PM EDT) [facility] WBC 10.4 4.0 - 11.0 10 3/uL [facility] TBH RBC 3.65(L) 4.20 - 5.40 10 6/uL [...] Narrative [facility] - 07/26/2024 1:24 PM EDT Eusebio Carole DO [facility] Final Result [facility] * MLR HEMOGLOBIN A1C (07/26/2024 12:13 PM EDT) GLYCOHEMOGLOBIN A1C 4.8 4.5 - 6.2 % [facility] Comment: ADA RECOMMENDED LIMIT 4.0 - 6.0 ADA THERAPEUTIC TARGET < 7.0 ACTION SUGGESTED > 7.0 ESTIMATED AVERAGE GLUCOSE 91 mg/dL TB 07/26/2024 12:1 3 PM EDT 07/26/2024 12:39 PM EDT Narrative [facility] - 07/26/2024 1:18 PM EDT Eusebio Ambrizo DO [facility] Final Result [facility] TB documented in this encounter Visit Diagnoses Not on filedocumented in this encounter Care Teams Engineering Aid Relationship Specialty Start Date End Date Orlando Ash MD [address] [place] [address] PCP - General Family Medicine 07/03/22 documented as of this encounter
--- OUTSIDE RECORDS SUMMARY | 2024-08-05 13:00 | XMS_ITS | Clinical Summary ---
Author Organization [employer] Address [id number] [address] [place] [address] Care Team Providers Care Security Installer Name Role Phone Orlando Ash MD Primary Care Provider [phone] Allergies No known active allergies Medications 06-qmho-[id number] 9-dha 31 mg iron- 1 mg-200 mg capsuleIndication s:First trimester Take 1 capsule by mouth in the morning. 90 capsule 3 4 Active aspirin 81 mg chewable tabletIndications :History of gestational hypertension Chew 1 tablet (81 mg total) and swallow in the morning. Start after 12 weeks gestation. 30 tablet 6 5 Active buPROPion SR (WELLBUTRIN SR) 150 mg 12 hr tablet Take 1 tablet (150 mg total) by mouth in the morning and 1 tablet (150 mg total) before bedtime. Active Active Problems Problem Noted Date Diagnosed Date History of delivery, currently 02/11/2024 Overview (02/11/2024): G4 35 wk MFM referral placed History of thyroid disorder 02/11/2024 Overview (02/11/2024): Pt unsure if hyper or hypothyroidism. Thyroid profile ordered. History of gestational hypertension 0 02/11/2024 Overview (02/11/2024): ASA at 12 wks Susceptible to varicella (non-immune), currently 01/20/2024 Positive urine drug screen - marijuana 4 Overview (02/11/2024): Discussed limited safety data in , recommend cessation. Pt using for nausea, plans to stop at 20 wks. Declined antiemetic rx. Abnormal genetic test during Overview (02/11/2024): 08/04/21 NIPS positive for CF and SMA Discussed carrier screening for partner. He declined screening. Anxiety 06/24/2021 Overview (02/11/2024): No current medications. Referral for [facility] placed. Smoker 06/24/2021 Overview (06/24/2021): Discussed cessation Depressive disorder 05/30/2021 Overview (02/11/2024): No current medications. Referral for [facility] placed. 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 0 02/11/2024 Encounters Date Type Department Care Team Description 05/24/2024 10:30 AM EDT Office Visit Maternal- Medicine at [facility] [address] [place] [phone] Nidhi Nicole MD 22 weeks gestation of (Primary Dx); History of gestational hypertension; History of delivery, currently ; Vaping nicotine dependence, non-tobacco product; Marijuana use during ; Genetic carrier 05/24/2024 9:03 AM EDT - 05/24/2024 11:59 PM EDT Hospital Encounter [facility] [address] [place] [phone] Screening, , for anatomic survey Discharge Disposition: Home 05/24/2024 Travel from Last 3 Months Family History Medical History Relation Name Comments No Known Problems Father Diabetes Maternal Grandmother Heart disease Maternal Grandmother Breast cancer Maternal great-grandmother Asthma Mother Alzheimer's disease Paternal Grandfather Cancer Paternal Grandmother unknown Colon cancer Neg Hx Hypertension Neg Hx Ovarian cancer Neg Hx Uterine cancer Neg Hx Relation Name Status Comments Father Alive Maternal Grandfather Maternal Grandmother Alive Maternal great-grandmother Mother Alive Paternal Grandfather Alive Paternal Grandmother unknown Alive Social History Tobacco Use Types Packs/Day Years Used Date Smoking Tobacco: Every Day Vaping/E-cigarettes Smokeless Tobacco: Never Tobacco Cessation:Ready to Q uit: Not Asked; Counseling Given: Not Answered Alcohol Use Standard Drinks/Week Comments Not Currently [...] before we got money to buy more. Sometimes True 025 Within the past 12 months th e food we bought just didn't last and we didn't have money to get more. Sometimes True 05/24/2024 Purpose - Life Answer Date Recorded Purpose [...] Sign Reading Time Taken Comments Blood Pressure 110/67 05/24/2024 9:35 AM EDT Pulse 71 05/24/2024 9:35 AM EDT Temperature 36.9 C (98.4 F) 03/22/2023 12:40 PM EST Respiratory Rate 18 03/22/2023 12:40 PM EST Oxygen Saturation 99% 03/22/2023 12:40 PM EST Inhaled Oxygen Concentration - - Weight 67.1 kg (148 lb) 05/24/2024 9:35 AM EDT Height 157.5 cm (5' 2 ) 05/24/2024 9:35 AM EDT Body Mass Index 27.07 05/24/2024 9:35 AM EDT Plan of Treatment Health Maintenance Due Date Last Done Comments Tobacco Counseling 2000 Adult BMI Follow Up Plan 12/02/2017 Chlamydia Screening 06/24/2022 06/24/2021, Influenza Vaccine 10/09/2024 Depression Screening 02/08/2025 02/09/2024 Adult BMI Screening 05/24/2025 05/24/2024 Tobacco Screening 05/24/2025 05/24/2024 Pap Smear 11/09/2025 11/09/2022, 02/25/2021 DTaP,Tdap and Td Vaccines (6 - Td or Tdap) 02/01/2032 01/31/2022, 08/30/2013, 08/23/2000, Additional history exists Medical Devices Not on file Procedures Procedure Name Priority Date/Time Associated Diagnosis Comments [facility] COMPREHENSIVE ANATOMIC SURVEY Routine 05/24/2024 10:46 AM EDT Screening, , for anatomic survey CHLAMYDIA/GC BY PCR SINDI SWAB Routine 06/24/2021 8:36 AM EDT care in first trimester PAP SMEAR Routine 02/25/2021 12:56 PM EST Cervical cancer screening Well woman exam from Last 3 Months or Most Recently Relevant to Health Maintenance Results * US [facility] COMPREHENSIVE ANATOMIC SURVEY (05/24/2024 10:46 AM EDT) Anatomical Region Laterality Modality OB-SHIPWRIGHT Ultrasound 05/24/2024 9:25 AM EDT Narrative 05/24/2024 5:38 PM EDT NAME: CHRISTINE ONOFRE : 2000 SEX: F Accession Number: [id number] ORDERING PHYSICIAN: VELMA GARCIA REFERRING PHYSICIAN: YURI REDDY Coding ----- --------- Procedures 44731: Ultrasound, uterus, real time with image documentation, and maternal evaluation plus detailed anatomic examination, transabdominal approach;single or first gestation 73016: Transvaginal Ultrasound (OB) Indication ----- --------- Screening for Anatomic Survey , Screening for cervical length, history of thyroid disease, History of gestational hypertension, History of prior with delivery, Abnormal finding on screening of mother - + CF & SMA carrier, Smoking in - vapes, marijuana use in . Supervision of high risk - Hypoplastic NB History ----- --------- OB History 5. Para 2 [id number] Current ----- --------- Cell free DNA Low Risk analysis Maternal Assessment ----- --------- Physical Exam Height 160 cm, 5 ft 3 in. Weight 67 kg, 148 lb. BMI 26.22 kg/m Method ----- --------- Transabdominal and transvaginal ultrasound [...] 1 lb 10 oz EFW by Hadlock ([id number]) Head / Face / Neck Biometry: Cephalic index 0.72 3% Nicolaides White Kid Buffer 2.5 mm CM 6.3 mm 69% Nicolaides [...] view. RVOT view. LVOT view. 3-vessel view. 0-qsweqw-jzfaznr view. Situs. Aortic arch view. Bicaval view. [...] 22 mm x 10 mm. Vol 2.3 cm Left Ovary Visualized Size 17 mm x 10 mm x 15 mm. Vol 1.4 cm Cul de Sac Visualized. No free fluid visualized Impression ----- --------- Single viable intrauterine with EFW measuring at the >99%. AC measures at the 98%. Transvaginal cervical length measures 5.3 cm. Hypoplastic nasal bone visualized. anatomic survey did not reveal any other sonographic evidence of any gross structural abnormalities. Recommendations ----- --------- Please see [facility] documentation from today. Subsequent follow up or other follow up as clinically determined by primary OB provider unless otherwise specified by M. Results forwarded to ordering provider so they can follow up with the patient as necessary. Procedure Note Nidhi Nicole MD - 05/24/2024 NAME: CHRISTINE ONOFRE : 2000 SEX: F Accession Number: [id number] ORDERING PHYSICIAN: VELMA GARCIA REFERRING PHYSICIAN: YURI REDDY Coding ----- --------- Procedures 42792: Ultrasound, uterus, real time with imagedocumentation, and maternal evaluation plus detailed anatomic examination, transabdominalapproach;single or first gestation 82609: Transvaginal Ultrasound (OB) Indication ----- --------- Screening for Anatomic Survey , Screening for cervical length, history ofthyroid disease, History of gestational hypertension, History of prior with delivery, Abnormalfinding on screening of mother - + CF & SMA carrier, Smoking in - vapes, marijuana use in .Supervision of high risk - Hypoplastic NB History ----- --------- OB History 5. Para 2 [id number] Current ----- --------- Cell free DNA Low Risk analysis Maternal Assessment ----- --------- Physical Exam Height 160 cm, 5 ft 3 in. Weight 67 kg, 148 lb. BMI 26.22kg/m Method ----- --------- Transabdominal and transvaginal ultrasound [...] 1 lb 10 oz EFW by Hadlock ([id number]) Head / Face / Neck Biometry: Cephalic index 0.72 3% Nicolaides White Kid Buffer 2.5 mm CM 6.3 mm 69% Nicolaides [...] 4-chamber view. RVOT view. LVOT view. 3-vessel view.4-sosrgx-xhggqrt view. Situs. Aortic arch view. Bicaval view. [...] 22 mm x 10 mm. Vol 2.3 cm Left Ovary Visualized Size 17 mm x 10 mm x 15 mm. Vol 1.4 cm Cul de Sac Visualized. No free fluid visualized Impression ----- --------- Single viable intrauterine with EFW measuring at the >99%. FetalAC measures at the 98%. Transvaginal cervical length measures 5.3 cm. Hypoplastic nasal bone visualized. anatomic survey did not reveal any other sonographic evidence of anygross structural abnormalities. Recommendations ----- --------- Please see [facility] documentation from today. Subsequent follow up or other follow up as clinically determined byprimary OB provider unless otherwise specified by [facility]. Results forwarded to ordering provider so they can follow up with thepatient as necessary. Velma Garcia MD [facility] ORDERABLES Final Result * Chlamydia/GC by PCR Sindi Swab (06/24/2021 8:36 AM EDT) Specimen source CERVICAL 10:25 AM EDT [facility] Chlamydia DNA PCR Negative Negative^N egative 06/26/2021 6:02 AM EDT [facility] Comment: Chlamydia trachomatis not detected by nucleic acid amplification. This does not exclude the possibility of infection because results are dependent on adequate specimen collection. Gonorrhea DNA PCR Negative Negative^N egative 06/26/2021 6:02 AM EDT [facility] Comment: Neisseria gonorrhoeae not detected by nucleic acid amplification. This does not exclude the possibility of infection because results are dependent on adequate specimen collection. GENS 06/24/2021 8:36 AM EDT 06/25/2021 10:25 AM EDT us Lima Gonzalez APRN-[facility] - GENERAL O RDERABLES Final Result [facility] [address] [place] [address] * Pap Smear (02/25/2021 12:56 PM EST) 02/25/2021 12:5 6 PM EST 02/26/2021 12:58 PM EST Narrative COPATH - 02/27/2021 2:27 PM EST [facility] [address] [place] [address] Gynecologic Cytology Consultation Patient Name: HAWK KING : 2000 (Age: 20) Gender: F Taken: 02/25/2021 Reported: 02/27/2021 Physician(s): Lima Gonzalez CNM ([phone]) Copy To: Med. Rec. #: [id number] Acct: # [id number] Final Cytologic Interpretation ThinPrep Pap Test (Cervical): Satisfactory for evaluation. A transformation zone component was not noted. NEGATIVE FOR INTRAEPITHELIAL LESION OR MALIGNANCY. Shift in missy suggestive of bacterial vaginosis. Comment: This ThinPrep slide could not be successfully imaged by the RxResults ThinPrep Imaging System so it was manually screened. [facility]/02/27/2021 Interpretation performed at [facility], [address] [place] [id number], License number: [id number]. Electronically Signed Out By PAUL Madrigal(ASCP) Date of Last Menstrual Period: 02/20/2021 Other Clinical Conditions: Z12.4 Screening for malignant neoplasm of cervix Z01.419 Fermenter Wine exam wo/abn findings Source of Specimen ThinPrep Pap Test (Cervical) Thin Prep Pap (SHIPWRIGHT) Fee Code(s): G0145, G0145 <CR>, G0123 The Pap test is a screening test with an inherent, but low, probability of error. The Pap test is primarily effective for the diagnosis and prevention of squamous cell carcinoma. Regular screening is critical for prevention. ThinPrep liquid-based slides, which meet the Mandolin Repair Person criteria for automated screening, have been screened by the ThinPrep Imaging System (as of 10/25/06) along with an additional manual rescreening by a envelope folding machine operator and, if indicated, by a pathologist. Lima Gonzalez WATER PUMP ASSEMBLER-[facility]/CYTOLOGY ORDER SYED Final Result COPATH from Last 3 Months or Most Recently Relevant to Health Maintenance Insurance [employer] Care Teams Security Installer Relationship Specialty Start Date End Date Orlando Ash MD [address] [id number] PCP - General Family Medicine 06/09/18
--- OUTSIDE RECORDS SUMMARY | 2024-08-05 13:00 | XMS_ITS | Encounter Summary ---
Author Organization [facility] Address [address] [place] [address] Care Team Providers Care Business Analytics Director Name Role Phone Orlando Ash MD Primary Care Provider [phone] Encounter Details Date Type Department Care Team (Late st Contact Info) Description 01/04/2023 Clinisync Result Encounter [facility] External Department Unsolicited Yuri Lam DO [address] [place]asmin [place], [facility] Social History Tobacco Use Types Packs/Day Years [...] AM EDT Routine [facility] [address] [facility] [address] [place] [phone] Megan Diego, ANI [address] [place] [phone] documented as of this encounter Procedures Procedure Name Priority Date/Time Associated Diagnosis Comments US OB GROWTH 01/04/2023 3:14 PM EST documented in this encounter Results * US OB GROWTH (01/04/2023 3:14 PM EST) Anatomical Region Laterality Modality Other 01/04/2023 3:14 PM EST Narrative 01/04/2023 3:14 PM EST [address] [address] Ultrasound Report Signed Patient: HAWK KING MR#: [id number] : 2000 Acct:[id number] Age/Sex: 22 / F ADM Date: 01/04/23 Loc: US Attending Dr: Yuri Lam D.O. Ordering Physician: Yuri Lam D.O. Date of Service: 01/04/23 Procedure(s): US OB growth Accession Number(s): [id number] cc: Yuri Lam D.O.; Physician,Non-Staff Sindy The [address] [address] Patient Name: HAWK KING MRN: [id number] date: 2000 Sex: F Assigned Patient Location: Current Patient Location: [facility] Accession/Order Number: [id number] Exam Date: 01/04/2023 12:57 Report Date: 01/04/2023 15:14 At the request of: YURI LAM Procedure: US OB growth EXAMINATION: US OB growth HISTORY: SGA COMPARISON: Ultrasound OB anatomy 09/29/2022 FINDINGS: Heart Rate: 131.0 bpm Number: 1.0 Position: CEPHALIC Amniotic Fluid Volume: 18.2 cm Maximum Vertical Pocket: 5.8 cm BIOMETRY: BPD: 9.0 cm cm; 36 weeks 4 days; 90% HC: 32.7 cmcm; 37 weeks 0 days ; 68% AC: 33.5 cm cm; 37 weeks 3 days; >97% FL: 6.6 cm cm; 33 weeks 6 days; 16% EFW: 2939.1 grams; 85% FL/AC: 19.6 FL/BPD: 72.7 HC/AC: 1.0 GESTATIONAL AGE: Age by EDC: 35 weeks 0 days HONEY by EDC: 02/08/2023 Age by US: 36 weeks 2 days HONEY by US: 01/30/2023 US/US OB growth IMPRESSION: 1. Single live intrauterine with growth detailed above. 2. Abdominal circumference is greater than 97th percentile. Electronically authenticated by: LUIS MCWILLIAMS Date: 01/04/2023 15:14 Dictated By: Luis Mcwilliams M.D. Signed By: 01/04/231515 DD/ 13 TD/TT: Hatch Supervisor: Procedure Note Radiology, Radiologist, MD - 01/04/2023 [place] [address] Ultrasound Report Signed Patient: HAWK KING CMR#: [id number] : 2000Acct:[id number] Age/Sex: 22 FADM Date: 01/04/23 Loc: US Attending Dr: Yuri Lam D.O. Ordering Physician: Yuri Lam D.O. Date of Service: 01/04/23 Procedure(s): US OB growth Accession Number(s): [id number] cc: Yuri Lam D.O.; Physician,Non-Staff Sindy The [place] [id number] Patient Name: HAWK KING MRN: [id number] date: 2000 Sex: F Assigned Patient Location: US Current Patient Location: [facility] Accession/Order Number: [id number] Exam Date: 01/04/2023 12:57 Report Date: 01/04/2023 15:14 At the request of: YURI LAM Procedure: US OB growth EXAMINATION: US OB growth HISTORY: SGA COMPARISON: Ultrasound OB anatomy 09/29/2022 FINDINGS: Heart Rate: 131.0 bpm Number: 1.0 Position: CEPHALIC Amniotic Fluid Volume: 18.2 cm Maximum Vertical Pocket: 5.8 cm BIOMETRY: BPD: 9.0 cm cm; 36 weeks 4 days; 90% HC: 32.7 cmcm; 37 weeks 0 days ; 68% AC: 33.5 cm cm; 37 weeks 3 days; >97% FL: 6.6 cm cm; 33 weeks 6 days; 16% EFW: 2939.1 grams; 85% FL/AC: 19.6 FL/BPD: 72.7 HC/AC: 1.0 GESTATIONAL AGE: Age by EDC: 35 weeks 0 days HONEY by EDC: 02/08/2023 Age by US: 36 weeks 2 days HONEY by US: 01/30/2023 US/US OB growth IMPRESSION: 1. Single live intrauterine with growth detailed above. 2. Abdominal circumference is greater than 97th percentile. Electronically authenticated by: LUIS MCWILLIAMS Date: 01/04/2023 15:14 Dictated By: Luis Mcwilliams M.D. Signed By:01/04/231515 DD/ 13 TD/TT: Hatch Supervisor: us Yuri Carole DO [facility] Final Result documented in this encounter Visit Diagnoses Not on filedocumented in this encounter Care Teams Business Analytics Director Relationship Specialty Start Date End Date Orlando Ash MD [address] [place] [id number] PCP - General Family Medicine 07/03/22 documented as of this encounter
--- OUTSIDE RECORDS SUMMARY | 2024-08-05 13:00 | XMS_ITS | Encounter Summary ---
Author Organization [employer] Address [id number] [address] [place] [address] Care Team Providers Care Dance Costume Designer Name Role Phone Orlando Ash MD Primary Care Provider [phone] Encounter Details Date Type Department Care Team (Late st Contact Info) Description 01/19/2024 Telephone [facility] Obstetrics/Gynecology [address] [place] [phone] [place], LOGISTICS ACCOUNT MANAGER-[facility] [address] [facility] [facility] [facility] [place] [address] Social History Tobacco Use Types Packs/Day Years [...] got money to buy more. Never True 01/18/2024 Within the past 12 months th e food we bought just didn't last and we didn't have money to get more. Never True 01/18/2024 Purpose - Life Answer Date Recorded Purpose and direction in life Unknown Estimated Date of Delivery Comme nts Yes 09/21/2024 Based on Ultraso und Sex and Gender Information Value Date Recorded Sex Assigned at Not on file Legal Sex Female 1:15 PM EST Gender Identity Not on file Sexual Orientation Not on file documented as of this encounter Miscellaneous Notes * Telephone Encounter - Anotnia Crawford - 01/19/2024 3:32 PM EST Patient called looking for HCG results from this morning (01/19/24). Please advise. Thank you documented in this encounter Plan of Treatment Not on file documented as of this encounter Visit Diagnoses Not on filedocumented in this encounter Care Teams Dance Costume Designer Relationship Specialty Start Date End Date Orlando Ash MD [address] [place] [address] PCP - General Family Medicine 06/09/18 documented as of this encounter
--- OUTSIDE RECORDS SUMMARY | 2024-08-05 13:01 | XMS_ITS | Encounter Summary ---
Author Organization [employer] Address [id number] [address] [place] [address] Care Team Providers Care Sed Middle School Teacher Name Role Phone Orlando Ash MD Primary Care Provider Encounter Details Date Type Department Care Team (Late st Contact Info) Description 06/06/2021 Telephone [facility] Obstetrics/Gynecology [address] [place] [phone] Tory Calloway MA Social History Tobacco Use Types Packs/Day Years Used Date Smoking Tobacco: Every Day Vaping/E-cigarettes Smokeless Tobacco: Never Alcohol Use Standard Drinks/Week Comments No 0 (1 standard drink = 0.6 oz [...] Purpose and direction in life Unknown Comments No Sex and Gender Information Value Date Recorded Sex Assigned at Not on file Legal Sex Female 1:15 PM EST Gender Identity Not on file Sexual Orientation Not on file COVID-19 Exposure Response Date Recorded In the last 10 days, have yo u been in contact with someone who was confirmed or suspected to have Coronavirus/COVID-19? No / Unsure 06/05/2021 11:44 AM EDT documented as of this encounter Miscellaneous Notes * Telephone Encounter - Tory Calloway MA - 06/06/2021 8:47 AM EDT Patient would like results of HCG if you could read it please. * Telephone Encounter - ADELE Escobedo - 06/06/2021 8:47 AM EDT Result note sent to staff documented in this encounter Plan of Treatment Not on file documented as of this encounter Visit Diagnoses Not on filedocumented in this encounter Additional Health Concerns Infection Onset Date Last Indicated Resolved Time COVID-19 Rule-Out 03/22/2023 03/22/2023 03/22/2023 2:37 PM EST documented as of this encounter Care Teams Sed Middle School Teacher Relationship Specialty Start Date End Date Orlando Ash MD [address] [place] [id number] PCP - General Family Medicine 06/09/18 documented as of this encounter
--- OUTSIDE RECORDS SUMMARY | 2024-08-05 13:01 | XMS_ITS | Encounter Summary ---
Author Organization [employer] Address [id number] [address] [place] [address] Care Team Providers Care Cylinder Loader Name Role Phone Orlando Ash MD Primary Care Provider [phone] Encounter Details Date Type Department Care Team (Late st Contact Info) Description 07/03/2021 [facility]phone [facility] [address] [place] [phone] Rachel Dan, [facility] Social History Tobacco Use Types Packs/Day Years [...] suspected to have Coronavirus/COVID-19? No / Unsure 06/26/2021 9:10 AM EDT documented as of this encounter Miscellaneous Notes * Telephone Encounter - Rachel Dan CMA - 07/03/2021 11:30 AM EDT Patient called stating she is 8 weeks and mom is traveling to [place] and patient would like to ride along. Patient miscarried back in January and her mom wants to be sure its safe for pt to ride in a car to and from [place]. She doesn't want to cause any kind of demise to fetus. Pleaseadvise. Thanks! * Telephone Encounter - KRISTYN Mcdowell - 07/03/2021 11:30 AM EDT Patient may travel to [place]. She should make frequent stops to stretch her legs, keep her feet and ankles moving and could also wear compression stocking to improve circulation/decrease possibility of a blood clot. * Telephone Encounter - Rachel Dan CMA - 07/03/2021 11:30 AM EDT Patient given information and suggestions. She verbalized understanding. documented in this encounter Plan of Treatment Not on file documented as of this encounter Visit Diagnoses Not on filedocumented in this encounter Additional Health Concerns Infection Onset Date Last Indicated Resolved Time COVID-19 Rule-Out 03/22/2023 03/22/2023 03/22/2023 2:37 PM EST documented as of this encounter Care Teams Cylinder Loader Relationship Specialty Start Date End Date Orlando Ash MD [address] [place] [address] PCP - General Family Medicine 06/09/18 documented as of this encounter
--- OUTSIDE RECORDS SUMMARY | 2024-08-05 13:01 | XMS_ITS | Encounter Summary ---
Author Organization [facility] Address [address] [place] [address] Care Team Providers Care Supervisor Production Managing Name Role Phone Orlando Ash MD Primary Care Provider [phone] Encounter Details Date Type Department Care Team (Late Contact Info) Description 08/03/2024 Clinisync Result Encounter N[facility]S External Department Unsolicited Yuri Lam DO [address] [facility] [address] [place] [id number] Social History Tobacco Use Types Packs/Day Years [...] AM EDT Routine [facility] BCP [facility] [address] [place] [place] [address] Megan Diego, MUD ENGINEER [address] [facility] [place] [id number] documented as of this encounter Procedures Procedure Name Priority Date/Time Associated Diagnosis Comments US OB BPP W NON-STRESS 08/03/2024 8:32 AM EDT documented in this encounter Results * US OB BPP W NON-STRESS (08/03/2024 8:32 AM EDT) Anatomical Region Laterality Modality Other 08/03/2024 8:32 AM EDT Narrative 08/03/2024 8:35 [place] [address] Ultrasound Report Signed Patient: HAWK KING MR#: [id number] : 2000 Acct:[id number] Age/Sex: 23 / F ADM Date: 08/02/24 Loc: US Attending Dr: Yuri Lam D.O. Ordering Physician: Yuri Lam D.O. Date of Service: 08/02/24 Procedure(s): US OB BPP w non-stress Accession Number(s): [id number] cc: Yuri Lam D.O.; Physician,Non-Staff M.DTaylor The [place] [address] Patient Name: HAWK KING MRN: [id number] date: 2000 Sex: F Assigned Patient Location: [facility] Current Patient Location: Accession/Order Number: [id number] Exam Date: 08/03/2024 08:23 Report Date: 08/03/2024 08:32 At the request of: YURI LAM DO Procedure: US OB BPP w non-stress CLINICAL INFORMATION: H/O LABOR O09.899 ULTRASOUND OB GROWTH COMPARISON: None There is a single live intrauterine gestation in cephalic presentation. There is cardiac and somatic activity. The heart rate [id number] beats per minute. The placenta is posterior. [...] Hunt M.D. 08/03/2024 8:32 AM Dictation Location: [place] [address] Electronically authenticated by: [id number] Y Date: 08/03/2024 08:32 Dictated By: Jing Hunt M.D. Signed By: 08/03/24 0835 DD/ 0832 TD/TT: Notereader: Procedure Note Radiology, Radiologist, MD - 08/03/2024 [place] [address] Ultrasound Report Signed Patient: HAWK KING [facility]#: [id number] : 2000Acct:[id number] Age/Sex: 23 / FADM Date: 08/02/24 Loc: US Attending Dr: Yuri Lam D.O. Ordering Physician: Yuri Lam D.O. Date of Service: 08/02/24 Procedure(s): US OB BPP w non-stress Accession Number(s): [id number] cc: Yuir Lam D.O.; Physician,Non-Staff Sindy The [place] [id number] Patient Name: HAWK KING MRN: [id number] date: 2000 Sex: F Assigned Patient Location: [facility] Current Patient Location: Accession/Order Number: [id number] Exam Date: 08/03/2024 08:23 Report Date: 08/03/2024 08:32 At the request of: YURI LAM DO Procedure: US OB BPP w non-stress CLINICAL INFORMATION: H/O LABOR O09.899 ULTRASOUND OB GROWTH COMPARISON: None There is a single live intrauterine gestation in cephalic presentation.There is cardiac and somatic activity. The heart rate [id number] per minute. The placenta is posterior. The [...] Hunt M.D. 08/03/2024 8:32 AM Dictation Location: [place] [address] Electronically authenticated by: [id number] Y Date: 508:32 Dictated By: Jing Hunt M.D. Signed By:08/03/2435 DD/ TD/TT: Notereader: us Yuri Carole DO [facility] Final Result documented in this encounter Visit Diagnoses Not on filedocumented in this encounter Care Teams Supervisor Production Managing Relationship Specialty Start Date End Date Orlando Ash MD [address] [place] [address] PCP - General Family Medicine 07/03/22 documented as of this encounter
[2024-08-05 13:10] VITALS: BP 97/64; PULSE 86
== END 2024-08-05 13:35 | disposition home or self-care (01) ==
LOC: FBCO 12:57 → FBC 13:00
PROVIDERS: Visit Provider Obstetrics & Gynecology
DX: O26.893 Other specified pregnancy related conditions, third trimester (principal)
CPT/HCPCS: 59025

== ENCOUNTER 2024-08-09 12:07 | Outpatient (OUT) | payer MEDICAID, SELFPAY ==
--- OUTSIDE RECORDS SUMMARY | 2023-11-15 13:15 | XMS_ITS ---
Author Organization [facility] vices Address [address] [place] [id number] Care Team Providers Care Supervisor Ornamental Ironworking Name Role Phone Chris Rodriguez Unavailable [phone] REASON FOR VISIT (TOP CASE ASSEMBLER) Initial Evaluation- Bipolar, Anxiety, and Depression Social History Sex Assigned At : Social History Observation Description Sex Assigned At Female Encounters Encounter Location Date Provider Diagnosis Main [address] [place] [id number] 11/15/2023 Chris Rodriguez Plan Of Treatment No Information Progress Notes * Jeremy KINGEmilyOB:2000 (23 yo F)Acc No.[id number]:11/15/2023 Patient: Hawk CHAMPION Provider: NORMAN Gonzalez :2000 A ge:22 Y S ex:Female Date:11/15/2023 Address:[address], [id number] Subjective: * Chief Complaints: * 1 . (TOP CASE ASSEMBLER) Initial Evaluation- Bipolar, Anxiety, and Depression. * Medical History: Objective: * Vitals: Assessment: Plan: * Treatment: Care Plan: * Problems: * Billing Information: * Visit Code: * Procedure Codes: Care Plan Details* * Electronic signature of NORMAN Escobedo on 08/09/2024 at 08:27 AM EDT Sign off status: Pending * Provider: NORMAN Gonzalez Date: 1 Generated for Nikunj zheng/Peace/eTransmitting on: 0 08/09/2024 08:27 AM EDT
--- OUTSIDE RECORDS SUMMARY | 2024-07-26 11:10 | XMS_ITS | Encounter Summary ---
Author Organization [facility] Address [address] [place] [address] Care Team Providers Care Systems Coordinator Name Role Phone Orlando Ash MD Primary Care Provider [phone] Reason for Visit * Reason Comments Routine Visit Encounter Details Date Type Department Care Team (Late st Contact Info) Description 07/26/2024 11:10 AM EDT Routine [facility] OB [address] [place] [phone] Eusebio Lam, DO [address] [place] [address] Third trimester ([facility]); 31 weeks gestation of ([facility]) Social History Tobacco Use Types Packs/Day Years [...] this encounter Progress Notes * Megan Diego, CANVAS GOODS MAKER - 07/26/2024 11:10 AM EDT Reason for [...] day smoker Heartburn History of miscarriage, currently ([facility]) HISTORY PAST MEDICAL HISTORY SOCIAL HISTORY Past Medical History: Diagnosis Date Carrier of spinal muscular atrophy Current every day smoker Heartburn History of miscarriage, currently ([facility]) Social History Tobacco Use Smoking status: Every [...] nursing note reviewed. Exam conducted with a enrollment services vice president present. Vitals: Estimated body mass index is 28.61 kg/m² as calculated from the following: Height as of 23: 5' 3 . Weight as of this encounter: 161 lb 8 oz. BP: 102/62 No LMP recorded. Patient is . ASSESSMENT & PLAN ICD-10-CM 1. Third trimester ([facility]) Z34.93 POCT urinalysis dipstick manually resulted 2. 31 weeks gestation of ([facility]) Z3A.31 Return OB: Patient presents today for [...] Care Team (Late st Contact Info) Description 08/17/2024 10:00 AM EDT Routine [facility] [address] [phone] Eusebio Lam DO [address] [place] [address] documented as of this encounter Procedures Procedure Name Priority Date/Time Associated Diagnosis Comments POCT URINALYSIS DIPSTICK Routine 07/26/2024 11:35 AM EDT Third trimester ([facility]) documented in this encounter Results * (ABNORMAL) [...] this encounter Visit Diagnoses Diagnosis Third trimester ([facility]) state, incidental 31 weeks gestation of ([facility]) documented in this encounter Care Teams Systems Coordinator Relationship Specialty Start Date End Date Orlando Ash MD [address] [place] [address] PCP - General Family Medicine 07/03/22 documented as of this encounter
--- OUTSIDE RECORDS SUMMARY | 2024-08-09 08:30 | XMS_ITS | Encounter Summary ---
Author Organization [facility] Address [address] [place] [address] Care Team Providers Care Director Alumni Relations Name Role Phone Orlando Ash MD Primary Care Provider [phone] Reason for Visit * Reason Comments Routine Visit Encounter Details Date Type Department Care Team (Late st Contact Info) Description 08/09/2024 8:30 AM EDT Routine [facility] BCP OB [address] [facility] [place] [address] Megan Diego, RESIDENTIAL FIELD MANAGER [address] [facility] [place] [address] Third trimester ([facility]); 33 weeks gestation of ([facility]) Social History Tobacco Use Types Packs/Day Years [...] this encounter Progress Notes * Megan Diego, RESIDENTIAL FIELD MANAGER - 08/09/2024 8:30 AM EDT Reason for [...] miscarriage, currently ([facility]) HISTORY PAST MEDICAL HISTORY SOCIAL HISTORY Past Medical History: Diagnosis Date Carrier of spinal muscular atrophy Current every day smoker Heartburn History of miscarriage, currently ([facility]) Social History Tobacco Use Smoking status: Every [...] nursing note reviewed. Exam conducted with a scrip clerk present. Vitals: Estimated body mass index is 29.01 kg/m² as calculated from the following: Height as of 03/12/22: 5' 3 . Weight as of this encounter: 163 lb 12 oz. BP: 110/58 No LMP recorded. Patient is . ASSESSMENT & PLAN ICD-10-CM 1. Third trimester ([facility]) Z34.93 POCT urinalysis dipstick manually resulted 2. 33 weeks gestation of ([facility]) Z3A.33 Return OB: Patient presents today for [...] Routine [facility] BCP OB [address] [place] [address] Eusebio Lam, [address] [place] [address] documented as of this encounter Procedures Procedure [...] this encounter Visit Diagnoses Diagnosis Third trimester ([facility]) state, incidental 33 weeks gestation of ([facility]) documented in this encounter Care Teams Director Alumni Relations Relationship Specialty Start Date End Date Orlando Ash MD [address] [place] [address] PCP - General Family Medicine 07/03/22 documented as of this encounter
--- OUTSIDE RECORDS SUMMARY | 2024-08-09 12:09 | XMS_ITS | Encounter Summary ---
Author Organization [facility] Address [address] [facility] [place] [address] Care Team Providers Care Asphalt Heater Tender Name Role Phone Orlando Ash MD Primary Care Provider Encounter Details Date Type Department Care Team (Late Contact Info) Description 03/08/2024 Abstract N[facility] [address] [place] [address] Eusebio Lam DO [address] [place] [id number] Social History Tobacco Use Types Packs/Day Years [...] Department Care Team (Late Contact Info) Description 08/17/2024 10:00 AM EDT Routine [facility] OB [address] [place] [address] Eusebio Lam DO [facility] [place], [place] [address] documented as of this encounter Visit Diagnoses Not on filedocumented in this encounter Care Teams Asphalt Heater Tender Relationship Specialty Start Date End Date Orlando Ash MD [address] [place] [address] PCP - General Family Medicine 07/03/22 documented as of this encounter
--- OUTSIDE RECORDS SUMMARY | 2024-08-09 12:09 | XMS_ITS | Encounter Summary ---
Author Organization [employer] Address [id number] [address] [place] [address] Care Team Providers Care Scratcher Tender Name Role Phone Orlando Ash MD Primary Care Provider [phone] Encounter Details Date Type Department Care Team (Late st Contact Info) Description 01/19/2024 Telephone [facility] Obstetrics/[facility]necology [address] [facility] [address] [place], AXLE INSPECTOR-[facility] [address] [facility] [place] [address] Social History Tobacco Use Types Packs/Day Years [...] encounter Miscellaneous Notes * Telephone Encounter - Antonia Crawford - 01/19/2024 3:32 PM EST Patient called looking for HCG results from this morning (01/19/24). Please advise. Thank you documented in this encounter Plan of Treatment Not on file documented as of this encounter Visit Diagnoses Not on filedocumented in this encounter Care Teams Scratcher Tender Relationship Specialty Start Date End Date Orlando Ash MD [address] [place] [address] PCP - General Family Medicine 06/09/18 documented as of this encounter
--- OUTSIDE RECORDS SUMMARY | 2024-08-09 12:09 | XMS_ITS | Encounter Summary ---
Author Organization [facility] Address [address] [place] [address] Care Team Providers Care Toll Bridge Attendant Name Role Phone Janee Del [place] MD Unavailable Orlando Ash MD Primary Care Provider [phone] Encounter Details Date Type Department Care Team (Late Contact Info) Description 08/06/2022 Abstract [facility] OB [address] [facility] [place] [address] [place] [address] [address] [place], [place] [address] Social History Tobacco Use Types Packs/Day Years [...] Description 08/17/2024 10:00 AM EDT Routine [facility] OB [address] [facility] [place] [address] [place] [address] [address], [place] [address] documented as of this encounter Visit Diagnoses Not on filedocumented in this encounter Care Teams Toll Bridge Attendant Relationship Specialty Start Date End Date Janee Del [place] MD [address] [place] [address] PCP - Sri Gallegos 03/11/22 Orlando Ash MD [address] [place], [place] [address] PCP - General Family Medicine 07/03/22 documented as of this encounter
--- OUTSIDE RECORDS SUMMARY | 2024-08-09 12:09 | XMS_ITS | Encounter Summary ---
Author Organization [employer] Address [id number] [address] [place] [address] Care Team Providers Care Production Honing Machine Operator Name Role Phone Orlando Ash MD Primary Care Provider [phone] Encounter Details Date Type Department Care Team (Late st Contact Info) Description 07/21/2021 Orders Only [facility] [address] [facility] [address] [place] [phone] Genny Mosquera, MARTY care in first trimester; [...] documented as of this encounter Care Teams Production Honing Machine Operator Relationship Specialty Start Date End Date Orlando Ash MD [address] [place] [address] PCP - General Family Medicine 06/09/18 documented as of this encounter
--- OUTSIDE RECORDS SUMMARY | 2024-08-09 12:09 | XMS_ITS | Encounter Summary ---
Author Organization [facility] Address [address] [place] [address] Care Team Providers Care Record Changer Tester Name Role Phone Orlando Ash MD Primary Care Provider [phone] Encounter Details Date Type Department Care Team (Late Contact Info) Description 05/25/2024 Abstract [facility] [address] [place] [address] Eusebio Lam DO [facility] [place], [place] [address] Social History Tobacco Use Types Packs/Day Years [...] Description 08/17/2024 10:00 AM EDT [facility] [facility] OB [address] [place] [address] Eusebio Lam DO [facility] [place], [place] [address] documented as of this encounter Visit Diagnoses Not on filedocumented in this encounter Care Teams Record Changer Tester Relationship Specialty Start Date End Date Orlando Ash MD [address] [place] [address] PCP - General Family Medicine 07/03/22 documented as of this encounter
--- OUTSIDE RECORDS SUMMARY | 2024-08-09 12:09 | XMS_ITS | Encounter Summary ---
Author Organization [facility] Address [address] [place] [address] Care Team Providers Care Patient Companion Name Role Phone Orlando Ash MD Primary Care Provider [phone] Encounter Details Date Type Department Care Team (Late st Contact Info) Description 08/09/2024 Bamboo flowsheet [facility] [address] [place] [address] Megan Diego, SIZE MARKER [address] [facility] [place] [address] Social History Tobacco Use Types Packs/Day Years [...] AM EDT Routine [facility] [address] [facility] [place] [address] Eusebio Lam, DO [address] [facility] [address] [place], [facility] documented as of this encounter Visit Diagnoses Not on filedocumented in this encounter Care Teams Patient Companion Relationship Specialty Start Date End Date Orlando Ash MD [address] [place] [address] PCP - General Family Medicine 07/03/22 documented as of this encounter
--- OUTSIDE RECORDS SUMMARY | 2024-08-09 12:09 | XMS_ITS | Encounter Summary ---
Author Organization [facility] Address [address] [place] [address] Care Team Providers Care Cafeteria Team Leader Name Role Phone Orlando Ash MD Primary Care Provider [phone] Encounter Details Date Type Department Care Team (Late st Contact Info) Description 12/29/2022 Clinisync Result Encounter NOMS External Department Unsolicited Yuri Lam, [facility] [place] [address] Social History Tobacco Use Types Packs/Day Years [...] Routine [facility] B[facility] OB [address] [place] [address] Yuri Lam DO [facility] [place] [address] documented as of this encounter Procedures Procedure Name Priority Date/Time Associated Diagnosis Comments US OB CERVICAL LENGTH 12/29/2022 2:24 PM EST documented in this encounter Results * US OB CERVICAL LENGTH (12/29/2022 2:24 PM EST) Anatomical Region Laterality Modality Other 12/29/2022 2:24 PM EST Narrative 12/29/2022 2:24 PM EST [address] [address] Ultrasound Report Signed Patient: HAWK KING MR#: [id number] : 2000 Acct:[id number] Age/Sex: 22 / F ADM Date: Loc: [facility] 254-[address]: Yuri Lam D.O. Ordering Physician: Yuri Lam D.O. Date of Service: 12/29/22 Procedure(s): US OB cervical length Accession Number(s): [id number] cc: Yuri Lam D.O.; Physician,Non-Staff M.Sigrid [address] [address] Patient Name: HAWK KING MRN: [id number] date: 2000 Sex: F Assigned Patient Location: [facility] Current Patient Location: [facility] Accession/Order Number: [id number] Exam Date: 12/29/2022 13:06 Report Date: 12/29/2022 [...] Signed By: 12/29/22 1427 DD/ 1424 TD/TT: Web Marketing Intern: Procedure Note Radiology, Radiologist, MD - 12/29/2022 [place] [address] Ultrasound Report Signed Patient: HAWK KING CMR#: [id number] : 2000Acct:[id number] Age/Sex: Date: Loc: [facility] 254-[address]: Yuri Lam D.O. Ordering Physician: Yuri Lam D.O. Date of Service: 12/29/22 Procedure(s): US OB cervical length Accession Number(s): [id number] cc: Yuri Lam D.O.; Physician,Non-Staff Sindy The [place] [id number] Patient Name: HAWK KING MRN: [id number] date: 2000 Sex: F Assigned Patient Location: [facility] Current Patient Location: [facility] Accession/Order Number: [id number] Exam Date: 12/29/2022 13:06 Report Date: 12/29/2022 [...] NATASHA THAPA Date: 12/29/2022 14:24 Dictated By: Natahsa Thapa M.D. Signed By:12/29/22 1427 DD/ 1424 TD/TT: Web Marketing Intern: us Yuri Lam DO [facility] Final Result documented in this encounter Visit Diagnoses Not on filedocumented in this encounter Care Teams Cafeteria Team Leader Relationship Specialty Start Date End Date Orlando Ash MD [address] [place] [address] PCP - General Family Medicine 07/03/22 documented as of this encounter
--- OUTSIDE RECORDS SUMMARY | 2024-08-09 12:09 | XMS_ITS | Encounter Summary ---
Author Organization [facility] Address [address] [facility] [place] [address] Care Team Providers Care Fishing Boat Mate Name Role Phone Orlando Ash MD Primary Care Provider [phone] Encounter Details Date Type Department Care Team (Late st Contact Info) Description 05/30/2024 Results Follow-Up [facility] OB [address] [facility] [address] Carol Winter LPN [facility] [place] [address] Social History Tobacco Use Types Packs/Day Years [...] [facility] OB [address] [place] [address] Eusebio Lam, DO [address] [place] [address] documented as of this encounter Visit Diagnoses Not on filedocumented in this encounter Care Teams Fishing Boat Mate Relationship Specialty Start Date End Date Orlando Ash MD [address] [place], [place] [address] PCP - General Family Medicine 07/03/22 documented as of this encounter
--- OUTSIDE RECORDS SUMMARY | 2024-08-09 12:09 | XMS_ITS | Encounter Summary ---
Author Organization [facility] Address [address] [place] [address] Care Team Providers Care Rate Clerk Name Role Phone Orlando Ash MD Primary Care Provider [phone] Encounter Details Date Type Department Care Team (Late st Contact Info) Description 02/24/2024 Abstract [facility] [address] [place] [address] Sunshine Ye LPN Social History Tobacco [...] Description 08/17/2024 10:00 AM EDT Routine [facility]OM[facility] [address] [place] [address] Eusebio Lam [address] [place], [place] [address] documented as of this encounter Visit Diagnoses Not on filedocumented in this encounter Care Teams Rate Clerk Relationship Specialty Start Date End Date Orlando Ash MD [address] [place] [address] PCP - General Family Medicine 07/03/22 documented as of this encounter
--- OUTSIDE RECORDS SUMMARY | 2024-08-09 12:09 | XMS_ITS | Encounter Summary ---
Author Organization [facility] Address [address] [facility] [place] [address] Care Team Providers Care Literacy Specialist Name Role Phone Orlando Ash MD Primary Care Provider [phone] Encounter Details Date Type Department Care Team (Late st Contact Info) Description 12/29/2022 Clinisync Result Encounter NOMS External Department Unsolicited Yuri Lam [facility] [place] [address] Social History Tobacco Use Types Packs/Day Years [...] Routine [facility] BCP OB [address] [place] [address] Yuri aLm DO [facility] [place] [address] documented as of this encounter Procedures Procedure Name Priority Date/Time Associated Diagnosis Comments US OB PLACENTA 12/29/2022 2:24 PM EST documented in this encounter Results * US OB PLACENTA (12/29/2022 2:24 PM EST) Anatomical Region Laterality Modality Other 12/29/2022 2:24 PM EST Narrative 12/29/2022 2:24 PM EST [address] [address] Ultrasound Report Signed Patient: HAWK KING MR#: [id number] : 2000 Acct:[id number] Age/Sex: 22 / F ADM Date: Loc: [facility] 254-[address]: Yuri Lam D.O. Ordering Physician: Yuri Lam D.O. Date of Service: 12/29/22 Procedure(s): US OB placenta Accession Number(s): [id number] cc: Yuri Lam D.O.; Physician,Non-Staff MLeopoldo [place] [address] Patient Name: HAWK KING MRN: [facility]:[id number] date: 2000 Sex: F Assigned Patient Location: [facility] Current Patient Location: [facility] Accession/Order Number: [id number] Exam Date: 12/29/2022 13:06 Report Date: 12/29/2022 [...] Signed By: 12/29/22 1427 DD/ 1424 TD/TT: Production Internship: Procedure Note Radiology, Radiologist, MD - 12/29/2022 [place] [address] Ultrasound Report Signed Patient: HAWK KING CMR#: [id number] : 2000Acct:[id number] Age/Sex: 22 FADM Date: Loc: [facility] 254- Attending Dr: Yuri Lam D.O. Ordering Physician: Yuri Lam D.O. Date of Service: 12/29/22 Procedure(s): US OB placenta Accession Number(s): [id number] cc: Yuri Lam D.O.; Physician,Non-Staff Sindy The [place] [address] Patient Name: HAWK KING MRN: [id number] date: 2000 Sex: F Assigned Patient Location: [facility] Current Patient Location: [facility] Accession/Order Number: [id number] Exam Date: 12/29/2022 13:06 Report Date: 12/29/2022 [...] THAPA Date: 12/29/2022 14:24 Dictated By: Natasha Tahpa M.D. Signed By:12/29/22 1427 DD/ 142 TD/TT: Production Internship: us Yuri Carole DO [facility] Final Result documented in this encounter Visit Diagnoses Not on filedocumented in this encounter Care Teams Literacy Specialist Relationship Specialty Start Date End Date Orlando Ash MD [address] [place] [address] PCP - General Family Medicine 07/03/22 documented as of this encounter
--- OUTSIDE RECORDS SUMMARY | 2024-08-09 12:09 | XMS_ITS | Encounter Summary ---
Author Organization [facility] Address [address] [facility] [place] [address] Care Team Providers Care Stripe Matcher Name Role Phone Orlando Ash MD Primary Care Provider [phone] Encounter Details Date Type Department Care Team (Late st Contact Info) Description 05/25/2024 Orders Only [facility] OB [address] [facility] [place] [address] Carol Winter LPN 102 [facility] [place] [address] Social History Tobacco Use Types Packs/Day Years [...] Description 08/17/2024 10:00 AM EDT Routine [facility] OB [address] [place] [address] Eusebio Lam DO [address] [facility] [address] [place], [facility]11 documented as of this encounter Procedures Procedure Name Priority Date/Time Associated Diagnosis Comments PAP SMEAR Routine 05/16/2024 12:00 AM EDT documented in this encounter Results * Pap Smear (05/16/2024 12:00 AM EDT) Swab Cervical swab / Unknown us Eusebio Carole DO LAB CYTOLOGY ORDERABLES Final Re sult EXTERNAL LAB documented in this encounter Visit Diagnoses Not on filedocumented in this encounter Care Teams Stripe Matcher Relationship Specialty Start Date End Date Orlando Ash MD [address] [place] [address] PCP - General Family Medicine 07/03/22 documented as of this encounter
--- OUTSIDE RECORDS SUMMARY | 2024-08-09 12:09 | XMS_ITS | Encounter Summary ---
Author Organization [facility] Address [address] [place] [facility] [place] [address] Care Team Providers Care Story Editor Name Role Phone Janee Del Valle MD Unavailable Orlando Ash MD Primary Care Provider [phone] Encounter Details Date Type Department Care Team (Late st Contact Info) Description 07/20/2022 Abstract [facility] OB [address] [facility] [place] [address] Eusebio Lam, [address] [place], [place] [address] Social History Tobacco Use Types Packs/Day Years [...] AM EDT Routine [facility] BCP OB [address] [facility] [place] [address] Eusebio Lam DO [facility] [place] [address] documented as of this encounter Visit Diagnoses Not on filedocumented in this encounter Care Teams Story Editor Relationship Specialty Start Date End Date Janee Del Vlale MD [address] [place] [address] PCP - [place] [employer] 03/11/22 Orlando Ash MD [address] [place] [address] PCP - General Family Medicine 07/03/22 documented as of this encounter
--- OUTSIDE RECORDS SUMMARY | 2024-08-09 12:09 | XMS_ITS | Encounter Summary ---
Author Organization [facility] Address [address] [facility] [place] [address] Care Team Providers Care Quarry Equipment Operator Name Role Phone Orlando Ash MD Primary Care Provider [phone] Encounter Details Date Type Department Care Team (Late Contact Info) Description 02/25/[address] [facility] [address] [place] [address] Eusebio Lam DO [address] [place] [address] Social History Tobacco Use Types Packs/Day Years [...] Description 08/17/2024 10:00 AM EDT Routine [facility] OB [address] [place] [address] Eusebio Lam DO [facility] [place], [place] [address] documented as of this encounter Visit Diagnoses Not on filedocumented in this encounter Care Teams Quarry Equipment Operator Relationship Specialty Start Date End Date Orlando Ash MD [address] [place] [address] PCP - General Family Medicine 07/03/22 documented as of this encounter
--- OUTSIDE RECORDS SUMMARY | 2024-08-09 12:09 | XMS_ITS | Encounter Summary ---
Author Organization [facility] Address [address] [place] [address] Care Team Providers Care Property Maintenance Technician Name Role Phone Janee Del Valle MD Unavailable Orlando Ash MD Primary Care Provider [phone] Encounter Details Date Type Department Care Team (Late st Contact Info) Description 08/03/2022 Abstract [facility] OB [address] [facility] [place] [place] [address] Eusebio Lam, [facility] [place], [place] [address] Social History Tobacco Use Types Packs/Day Years [...] Routine [facility] BCP OB [address] [place] [address] Eusebio Lam DO [facility] [place] [address] documented as of this encounter Visit Diagnoses Not on filedocumented in this encounter Care Teams Property Maintenance Technician Relationship Specialty Start Date End Date Janee Del Valle MD [address] [place] [address] PCP - [place] [employer] 03/11/22 Orlando Ash MD [address] [place] [address] PCP - General Family Medicine 07/03/22 documented as of this encounter
--- OUTSIDE RECORDS SUMMARY | 2024-08-09 12:09 | XMS_ITS | Encounter Summary ---
Author Organization [facility] tem Address [id number] [address] [place] [address] Care Team Providers Care Recordings Librarian Name Role Phone Orlando Ash MD Primary Care Provider [phone] Encounter Details Date Type Department Care Team (Late st Contact Info) Description 04/21/2024 Orders Only [facility] at [facility] [address] [place] [address] Eusebio Lam R, DO [address] [facility] [place] [address] Social History Tobacco Use Types Packs/Day Years [...] documented as of this encounter Care Teams Recordings Librarian Relationship Specialty Start Date End Date Orlando Ash MD [address] [place] [address] PCP - General Family Medicine 06/09/18 documented as of this encounter
--- OUTSIDE RECORDS SUMMARY | 2024-08-09 12:09 | XMS_ITS | Encounter Summary ---
Author Organization [facility] Address [address] [facility] [place] [address] Care Team Providers Care Oliver Filter Operator Name Role Phone Orlando Ash MD Primary Care Provider [phone] Encounter Details Date Type Department Care Team (Late st Contact Info) Description 01/04/2023 Clinisync Result Encounter NOMS External Department Unsolicited Yuri Lam [facility] [place] [address] Social History Tobacco Use Types Packs/Day Years [...] Routine [facility] BCP OB [address] [place] [address] Yuri Lam DO [facility] [place] [address] documented as of this encounter Procedures Procedure Name Priority Date/Time Associated Diagnosis Comments US OB GROWTH 01/04/2023 3:14 PM EST documented in this encounter Results * US OB GROWTH (01/04/2023 3:14 PM EST) Anatomical Region Laterality Modality Other 01/04/2023 3:14 PM EST Narrative 01/04/2023 3:14 PM EST [address] [address] Ultrasound Report Signed Patient: HAWK KING MR#: [id number] : 2000 Acct:[id number] Age/Sex: 22 / F ADM Date: 01/04/23 Loc: US Attending Dr: Yuri Lam D.O. Ordering Physician: Yuri Lam D.O. Date of Service: 01/04/23 Procedure(s): US OB growth Accession Number(s): [id number] cc: Yuri Lam D.O.; Physician,Non-Staff M.Sigrid The [place] [address] Patient Name: HAWK KING MRN: [id number] date: 2000 Sex: F Assigned Patient Location: Current Patient Location: [facility] Accession/Order Number: [id number] Exam Date: 01/04/2023 12:57 Report Date: 01/04/2023 [...] Dictated By: Luis Mcwilliams M.D. Signed By: 01/04/23 1516 DD/ 13 TD/TT: Field Contractor: Procedure Note Radiology, Radiologist, MD - 01/04/2023 [place] [address] Ultrasound Report Signed Patient: HAWK KING CMR#: [id number] : 2000Acct:[id number] Age/Sex: 22 / FADM Date: 01/04/23 Loc: US Attending Dr: Yuri Lam D.O. Ordering Physician: Yuri Lam D.O. Date of Service: 01/04/23 Procedure(s): US OB growth Accession Number(s): [id number] cc: Yuri Lam D.O.; Physician,Non-Staff Sindy The [place] [id number] Patient Name: HAWK KING MRN: [id number] date: 2000 Sex: F Assigned Patient Location: US Current Patient Location: [facility] Accession/Order Number: [id number] Exam Date: 01/04/2023 12:57 Report Date: 01/04/2023 [...] Mcwilliams M.D. Signed By:01/04/231515 DD/ 13 TD/TT: Field Contractor: us Yuri Carole DO [facility] Final Result documented in this encounter Visit Diagnoses Not on filedocumented in this encounter Care Teams Oliver Filter Operator Relationship Specialty Start Date End Date Orlando Ash MD [address] [place] [address] PCP - General Family Medicine 07/03/22 documented as of this encounter
--- OUTSIDE RECORDS SUMMARY | 2024-08-09 12:09 | XMS_ITS | Patient Health Record ---
Author Organization [facility] vices Address [address] [place] [address] Care Team Providers Care Cell Liner Name Role Phone Chris Rodriguez Unavailable [phone] Reason For Referral No Information Social History Sex Assigned At : Social History Observation Description Sex Assigned At Female Plan Of Treatment No Information Insurance Providers Payer Name Payer Address Payer Phone Subscriber Number Group Number Insured Name Patient Relationship to Insured Coverage Start Date Coverage End Date [facility] [address] [place] [address] [id number] Hawk King Self - patient is the insured
--- OUTSIDE RECORDS SUMMARY | 2024-08-09 12:09 | XMS_ITS | Encounter Summary ---
Author Organization [facility] Address [address] [place] [address] Care Team Providers Care Orthotic Practitioner Name Role Phone Orlando Ash MD Primary Care Provider [phone] Encounter Details Date Type Department Care Team (Late Contact Info) Description 07/26/2024 Bamboo flowsheet [facility] OB 102 [facility] [place] [address] Eusebio Lam DO [address] [place] [address] Marisa [place], [place] [address] Social History Tobacco Use Types Packs/Day Years [...] Description 08/17/2024 10:00 AM EDT Routine [facility] OB [address] [place] [address] Eusebio Lam [facility] [place], [facility]11 documented as of this encounter Visit Diagnoses Not on filedocumented in this encounter Care Teams Orthotic Practitioner Relationship Specialty Start Date End Date Orlando Ash MD [address] [place] [address] PCP - General Family Medicine 07/03/22 documented as of this encounter
--- OUTSIDE RECORDS SUMMARY | 2024-08-09 12:09 | XMS_ITS | Clinical Summary ---
Author Organization Fylet tem Address [id number] [address] [place] [address] Care Team Providers Care Double Bottom Driver Name Role Phone Orlando Ash MD Primary Care Provider [phone] Allergies No known active allergies Medications 42-iigh-bnyvjv 9-dha 31 mg iron- 1 mg-200 mg [...] AM EDT Office Visit Maternal- Medicine at [facility] [address] [place] [phone] Nidhi Nicole MD 22 weeks gestation of (Primary Dx); History of gestational hypertension; History of delivery, currently ; Vaping nicotine dependence, non-tobacco product; Marijuana use during ; Genetic carrier 05/24/2024 9:03 AM EDT - 05/24/2024 11:59 PM EDT Hospital Encounter [facility] US Imaging [address] [place] [phone] Screening, , for anatomic survey Discharge Disposition: [...] Procedure Name Priority Date/Time Associated Diagnosis Comments [facility] COMPREHENSIVE ANATOMIC SURVEY Routine 05/24/2024 10:46 AM EDT Screening, , for anatomic survey CHLAMYDIA/GC BY PCR SINDI SWAB Routine 06/24/2021 8:36 AM EDT care in first trimester PAP SMEAR Routine 02/25/2021 12:56 PM EST Cervical cancer screening Well woman exam from Last 3 Months or Most Recently Relevant to Health Maintenance Results * US [facility] COMPREHENSIVE ANATOMIC SURVEY (05/24/2024 10:46 AM EDT) Anatomical Region Laterality Modality OB-VENEER GLUER Ultrasound 05/24/2024 9:25 AM EDT Narrative 05/24/2024 5:38 PM EDT NAME: CHRISTINE ONOFRE : 2000 SEX: F Accession Number: [id number] ORDERING PHYSICIAN: VELMA GARCIA REFERRING PHYSICIAN: YURI REDDY Coding ----- --------- Procedures 83126: Ultrasound, uterus, real time with image documentation, and maternal evaluation plus detailed anatomic examination, transabdominal approach;single or first gestation 90594: Transvaginal Ultrasound (OB) Indication ----- --------- Screening for Anatomic Survey , Screening for cervical length, history of thyroid disease, History of gestational hypertension, History of prior with delivery, Abnormal finding on screening of mother - + CF & SMA carrier, Smoking in - vapes, marijuana use in . Supervision of high risk - Hypoplastic NB History ----- --------- OB History 5. Para 2 [id number] Current ----- --------- Cell free DNA Low [...] 1 lb 10 oz EFW by Hadlock (PKJ-TE-CY-FL) Head / Face / Neck Biometry: Cephalic index 0.72 3% [employer] Workers Compensation Claims Supervisor 2.5 mm CM 6.3 mm 69% Nicolaides [...] view. RVOT view. LVOT view. 3-vessel view. 1-qkhpqp-qepejwu view. Situs. Aortic arch view. Bicaval view. [...] structural abnormalities. Recommendations ----- --------- Please see [facility] documentation from today. Subsequent follow up or other follow up as clinically determined by primary OB provider unless otherwise specified by M. Results forwarded to ordering provider so they can follow up with the patient as necessary. Procedure Note Nidhi Nicole MD - 05/24/2024 NAME: CHRISTINE ONOFRE : 2000 SEX: F Accession Number: [id number] ORDERING PHYSICIAN: VELMA GARCIA REFERRING PHYSICIAN: YURI REDDY Coding ----- --------- Procedures 31504: Ultrasound, uterus, real time with imagedocumentation, and maternal evaluation plus detailed anatomic examination, transabdominalapproach;single or first gestation 58297: Transvaginal Ultrasound (OB) Indication ----- --------- Screening for Anatomic Survey , Screening for cervical length, history ofthyroid disease, History of gestational hypertension, History of prior with delivery, Abnormalfinding on screening of mother - + CF & SMA carrier, Smoking in - vapes, marijuana use in .Supervision of high risk - Hypoplastic NB History ----- --------- OB History 5. Para 2 [id number] Current ----- --------- Cell free DNA Low [...] 1 lb 10 oz EFW by Hadlock (KPB-VI-CD-FL) Head / Face / Neck Biometry: Cephalic index 0.72 3% [employer] Workers Compensation Claims Supervisor 2.5 mm CM 6.3 mm 69% Nicolaides [...] 4-chamber view. RVOT view. LVOT view. 3-vessel view.3-vtvdex-fqeeeoe view. Situs. Aortic arch view. Bicaval view. [...] structural abnormalities. Recommendations ----- --------- Please see [facility] documentation from today. Subsequent follow up or other follow up as clinically determined byprimary OB provider unless otherwise specified by [facility]. Results forwarded to ordering provider so they can follow up with thepatient as necessary. Velma Garcia MD [facility] US ORDERABLES Final Result * Chlamydia/GC by PCR Sindi Swab (06/24/2021 8:36 AM EDT) Specimen source CERVICAL 10:25 AM EDT [facility] Chlamydia DNA PCR Negative Negative^N egative 06/26/2021 6:02 AM EDT [facility] Comment: Chlamydia trachomatis not detected by nucleic acid amplification. This does not exclude the possibility of infection because results are dependent on adequate specimen collection. Gonorrhea DNA PCR Negative Negative^N egative 06/26/2021 6:02 AM EDT [facility] Comment: Neisseria gonorrhoeae not detected by nucleic acid amplification. This does not exclude the possibility of infection because results are dependent on adequate specimen collection. GENS 06/24/2021 8:36 AM EDT 06/25/2021 10:25 AM EDT us Lima Gonzalez APRN-[facility]CRO[facility] - GENERAL O RDERABLES Final Result [facility] [address] [place] [address] * Pap Smear (02/25/2021 12:56 PM EST) 02/25/2021 12:5 6 PM EST 02/26/2021 12:58 PM EST Narrative COPATH - 02/27/2021 2:27 PM EST [facility] [address] [place] [address] Gynecologic Cytology Consultation Patient Name: HAWK KING : 2000 (Age: 20) Gender: F Taken: 02/25/2021 Reported: 02/27/2021 Physician(s): Lima Gonzalez CNM ([phone]) Copy To: Med. Rec. #: [id number] Acct: # [id number] Final Cytologic Interpretation ThinPrep Pap Test (Cervical): Satisfactory for evaluation. A transformation zone component was not noted. NEGATIVE FOR INTRAEPITHELIAL LESION OR MALIGNANCY. Shift in missy suggestive of bacterial vaginosis. Comment: This ThinPrep slide could not be successfully imaged by the [facility] ThinPrep Imaging System so it was manually screened. [facility]/02/27/2021 Interpretation performed at [facility], [address] [place] [address], License number: [id number]. Electronically Signed Out By PAUL Madrigal(ASCP) Date of Last Menstrual Period: 02/20/2021 Other Clinical Conditions: Z12.4 Screening for malignant neoplasm of cervix Z01.419 Cold Type Composing Machine Operator exam wo/abn findings Source of Specimen ThinPrep Pap Test (Cervical) Thin Prep Pap (VENEER GLUER) Fee Code(s): G0145, G0145 <CR>, G0123 The Pap test is a screening test with an inherent, but low, probability of error. The Pap test is primarily effective for the diagnosis and prevention of squamous cell carcinoma. Regular screening is critical for prevention. ThinPrep liquid-based slides, which meet the Well Blower criteria for automated screening, have been screened by the ThinPrep Imaging System (as of 10/25/06) along with an additional manual rescreening by a competitive intelligence analyst and, if indicated, by a pathologist. Lima Gonzalez SAS CLINICAL PROGRAMMER-[facility] PATHOLOGY/CYTOLOGY ORDER SYED Final Result COPATH from Last 3 Months or Most Recently Relevant to Health Maintenance Insurance [employer] Care Teams Double Bottom Driver Relationship Specialty Start Date End Date Orlando Ash MD [address] [place] [id number] PCP - General Family Medicine 06/09/18
--- OUTSIDE RECORDS SUMMARY | 2024-08-09 12:09 | XMS_ITS | Encounter Summary ---
Author Organization [facility] Address [address] [place] [address] Care Team Providers Care Lining Folder Name Role Phone Janee Del Valle MD Unavailable Orlando Ash MD Primary Care Provider [phone] Encounter Details Date Type Department Care Team (Late st Contact Info) Description 07/03/2022 Clinisync Result Encounter [facility] External Department Unsolicited Eusebio Lam, DO [address] [place] [address] Social History Tobacco Use Types Packs/Day Years [...] [facility] BCP OB [address] [place] [phone] Eusebio Lam DO [address] [place] [address] documented as of this encounter Procedures Procedure [...] Date: 2022-07-03 17:20 Procedure Note Radiology, Radiologist, - 07/03/2022 EXAMINATION: US PREG TV HISTORY: [...] Date: 2022-07-03 17:20 us Eusebio Carole DO [facility] Final Result documented in this encounter Visit Diagnoses Not on filedocumented in this encounter Care Teams Lining Folder Relationship Specialty Start Date End Date Janee Del Valle MD [address] [place] [address] PCP - [employer] 03/11/22 Orlando Ash MD [address] [place] [address] PCP - General Family Medicine 07/03/22 documented as of this encounter
--- OUTSIDE RECORDS SUMMARY | 2024-08-09 12:09 | XMS_ITS | Encounter Summary ---
Author Organization [facility] Address [address] [facility] [place] [address] Care Team Providers Care Shank Boner Name Role Phone Janee Del Valle MD Unavailable Orlando Ash MD Primary Care Provider [phone] Encounter Details Date Type Department Care Team (Late Contact Info) Description 09/03/2022 Abstract [facility] OB [address] [facility] [place] [address] Radha Avila PA [address] [place] [address] [address], [place] [address] Social History Tobacco Use Types Packs/Day Years [...] Description 08/17/2024 10:00 AM EDT Routine [facility] OB [address] [place] [address] Eusebio Lam, DO [address] [facility] [address] [place], [place] [phone] documented as of this encounter Visit Diagnoses Not on filedocumented in this encounter Care Teams Shank Boner Relationship Specialty Start Date End Date Janee Del Valle MD [address] [place] [address] PCP - Sri Gallegos 03/11/22 Orlando Ash MD [address] [place], [place] [phone] PCP - General Family Medicine 07/03/22 documented as of this encounter
--- OUTSIDE RECORDS SUMMARY | 2024-08-09 12:09 | XMS_ITS | Encounter Summary ---
Author Organization [facility] Address [address] [place] [address] Care Team Providers Care Inseam Trimming Machine Operator Name Role Phone Orlando Ash MD Primary Care Provider [phone] Encounter Details Date Type Department Care Team (Late st Contact Info) Description 12/29/2022 Clinisync Result Encounter [facility] External Department Unsolicited Yuri Lam, DO [facility] [place] [address] Social History Tobacco Use Types Packs/Day Years [...] Routine [facility] BCP OB [address] [place] [address] Yuri Lam DO [facility] [place] [address] documented as of this encounter Procedures Procedure Name Priority Date/Time Associated Diagnosis Comments US OB BPP W NON-STRESS 12/29/2022 2:24 PM EST documented in this encounter Results * US OB BPP W NON-STRESS (12/29/2022 2:24 PM EST) Anatomical Region Laterality Modality Other 12/29/2022 2:24 PM EST Narrative 12/29/2022 2:24 [place] [address] Ultrasound Report Signed Patient: HAWK KING MR#: [id number] : 2000 Acct:[id number] Age/Sex: 22 / F ADM Date: Loc: [facility] 254-[address]: Yuri Lam D.O. Ordering Physician: Yuri Lam D.O. Date of Service: 12/29/22 Procedure(s): US OB BPP w non-stress Accession Number(s): [id number] cc: Yuri Lam D.O.; Physician,Non-Staff M.Sigrid [place] [id number] Patient Name: HAWK KING MRN: [id number] date: 2000 Sex: F Assigned Patient Location: [facility] Current Patient Location: [facility] Accession/Order Number: [id number] Exam Date: 12/29/2022 13:06 Report Date: 12/29/2022 [...] NATASHA THAPA Date: 12/29/2022 14:24 Dictated By: aNtasha Thapa M.D. Signed By: 12/29/22 1427 DD/ 23 TD/TT: Commutator Tester: Procedure Note Radiology, Radiologist, MD - 12/29/2022 [place] [address] Ultrasound Report Signed Patient: HAWK KING CMR#: [id number] : 2000Acct:[id number] Age/Sex: Date: Loc: [facility] 254-[address]: Yuri Lam D.O. Ordering Physician: Yuri Lam D.O. Date of Service: 12/29/22 Procedure(s): US OB BPP w non-stress Accession Number(s): [id number] cc: Yuri Lam D.O.; Physician,Non-Staff M.DTaylor The [place] [id number] Patient Name: HAWK KING MRN: [id number] date: 2000 Sex: F Assigned Patient Location: [facility] Current Patient Location: [facility] Accession/Order Number: [id number] Exam Date: 12/29/2022 13:06 Report Date: 12/29/2022 [...] Natasha Thapa M.D. Signed By:12/29/22 1427 DD/ 142 TD/TT: Commutator Tester: us Yuri Carole DO [facility] Final Result documented in this encounter Visit Diagnoses Not on filedocumented in this encounter Care Teams Inseam Trimming Machine Operator Relationship Specialty Start Date End Date Orlanod Ash MD [address] [place], [place] [id number] PCP - General Family Medicine 07/03/22 documented as of this encounter
--- OUTSIDE RECORDS SUMMARY | 2024-08-09 12:09 | XMS_ITS | Encounter Summary ---
Author Organization [facility] Address [address] [place] [address] Care Team Providers Care Wind Tunnel Mechanic Name Role Phone Orlando Ash MD Primary Care Provider [phone] Encounter Details Date Type Department Care Team (Late st Contact Info) Description 08/03/2024 Clinisync Result Encounter [facility] External Department Unsolicited Yuri Lam DO [address] [place], [facility] Social History Tobacco Use Types Packs/Day [...] Routine [facility] BCP OB [address] [place] [phone] Yuri Lam DO [address] [place] [address] documented as of this encounter Procedures Procedure Name Priority Date/Time Associated Diagnosis Comments US OB GROWTH 08/03/2024 8:32 AM EDT documented in this encounter Results * US OB GROWTH (08/03/2024 8:32 AM EDT) Anatomical Region Laterality Modality Other 08/03/2024 8:32 AM EDT Narrative 08/03/2024 8:35 [place] [address] Ultrasound Report Signed Patient: HAWK KING MR#: [id number] : 2000 Acct:[id number] Age/Sex: 23 / F ADM Date: 08/02/24 Loc: US Attending Dr: Yuri Lam D.O. Ordering Physician: Yuri Lam D.O. Date of Service: 08/02/24 Procedure(s): US OB growth Accession Number(s): [id number] cc: Yuri Lam D.O.; Physician,Non-Staff M.DTaylor The [place] [id number] Patient Name: HAWK KING MRN: [id number] date: 2000 Sex: F Assigned Patient Location: [facility] Current Patient Location: Accession/Order Number: [id number] Exam Date: 08/03/2024 08:23 Report Date: 08/03/2024 08:32 At the request of: YURI LAM DO Procedure: US OB BPP w non-stress CLINICAL INFORMATION: H/O LABOR O09.899 ULTRASOUND OB GROWTH COMPARISON: None There is a single live intrauterine gestation in cephalic presentation. There is cardiac and somatic activity. The heart rate [id number] beats per minute. The placenta is posterior. [...] Hunt M.D. 08/03/2024 8:32 AM Dictation Location: [place] [address] Electronically authenticated by: [id number] Y Date: 08/03/2024 08:32 Dictated By: Jing Hunt M.D. Signed By: 08/03/24 0835 DD/ 0832 TD/TT: Hand Ironer: Procedure Note Radiology, Radiologist, - 08/03/2024 [place] [address] Ultrasound Report Signed Patient: HAWK KING CMR#: [id number] : 2000Acct:[id number] Age/Sex: 23 / FADM Date: 08/02/24 Loc: US Attending Dr: Yuri Lam D.O. Ordering Physician: Yuri Lam D.O. Date of Service: 08/02/24 Procedure(s): US OB growth Accession Number(s): [id number] cc: Yuri Lam D.O.; Physician,Non-Staff Sindy The [place] [id number] Patient Name: HAWK KING MRN: [id number] date: 2000 Sex: F Assigned Patient Location: [facility] Current Patient Location: Accession/Order Number: [id number] Exam Date: 08/03/2024 08:23 Report Date: 08/03/2024 08:32 At the request of: YURI LAM DO Procedure: US OB BPP w non-stress CLINICAL INFORMATION: H/O LABOR O09.899 ULTRASOUND OB GROWTH COMPARISON: None There is a single live intrauterine gestation in cephalic presentation.There is cardiac and somatic activity. The heart rate [id number] per minute. The placenta is posterior. The [...] Hunt M.D. 08/03/2024 8:32 AM Dictation Location: [place] [address] Electronically authenticated by: [id number] Y Date: 508:32 Dictated By: Jing Hunt M.D. Signed By:08/03/2435 DD/ TD/TT: Hand Ironer: us Yuri Carole DO [facility] Final Result documented in this encounter Visit Diagnoses Not on filedocumented in this encounter Care Teams Wind Tunnel Mechanic Relationship Specialty Start Date End Date Orlando Ash MD [address] [place] [address] PCP - General Family Medicine 07/03/22 documented as of this encounter
--- OUTSIDE RECORDS SUMMARY | 2024-08-09 12:10 | XMS_ITS | Encounter Summary ---
Author Organization [facility] Address [address] [place] [address] Care Team Providers Care Pm Technician Name Role Phone Orlando Ash MD Primary Care Provider [phone] Encounter Details Date Type Department Care Team (Late st Contact Info) Description 07/26/2024 Clinisync Result Encounter [facility] External Department Unsolicited Eusebio Lam, DO [address] [place], [facility] Social History Tobacco Use Types Packs/Day Years [...] Routine [facility] BCP OB [address] [place] [phone] Eusebio Lam DO [address] [place] [address] documented as of this encounter Procedures Procedure Name Priority Date/Time Associated Diagnosis Comments MLR HEMOGLOBIN A1C Routine 07/26/2024 12 :13 PM EDT ALL CBC WITH AUTO DIFF Routine 07/26/2024 12:13 PM EDT documented in this encounter Results * (ABNORMAL) ALL CBC WITH AUTO DIFF (07/26/2024 12:13 PM EDT) [facility] WBC 10.4 4.0 - 11.0 10 [...] [facility] - 07/26/2024 1:24 PM EDT us Eusebio Carole DO [facility] Final Result Performing Organization Address City/[facility]/ZIP Co de Phone Number [facility] * MLR HEMOGLOBIN A1C (07/26/2024 12:13 PM EDT) GLYCOHEMOGLOBIN A1C 4.8 4.5 - 6.2 % [facility] Comment: ADA RECOMMENDED LIMIT 4.0 - 6.0 ADA THERAPEUTIC TARGET < 7.0 ACTION SUGGESTED > 7.0 ESTIMATED AVERAGE GLUCOSE 91 mg/dL TB 07/26/2024 12:1 3 PM EDT 07/26/2024 12:39 PM EDT Narrative [facility] - 07/26/2024 1:18 PM EDT Eusebio Ambrizo DO [facility] Final Result Performing Organization Address City/[facility] Co de Phone Number [facility] TB documented in this encounter Visit Diagnoses Not on filedocumented in this encounter Care Teams Pm Technician Relationship Specialty Start Date End Date Orlando Ash MD [address] [place] [address] PCP - General Family Medicine 07/03/22 documented as of this encounter
--- OUTSIDE RECORDS SUMMARY | 2024-08-09 12:10 | XMS_ITS | Clinical Summary ---
Author Organization [facility] Address [address] [place] [address] Care Team Providers Care Bag Bleacher Name Role Phone Ann-Marie Ash MD Primary Care Provider [phone] Allergies No known active allergies Medications MV-Min-Fe Fum-FA-DHA ( 1 PO) Take 1 each by mouth Daily Active Active Problems Problem Noted Date Diagnosed Date Missed menses 07/02/2022 Estimated Date of Delivery Comme nts Yes 09/21/2024 Based on Ultraso und Encounters Date Type Department Care Team Description 08/09/2024 8:30 AM EDT Routine [facility] [address] [facility] [place] [address] Megan Diego NP Third trimester ([facility]); 33 weeks gestation of ([facility]) 08/09/2024 Bamboo flowsheet [facility] [address] [place] [address] [place] [address] Megan Diego NP 08/03/2024 Clinisync Result Encounter [facility] External Department Unsolicited Yuri Lam, 08/03/2024 Clinisync Result Encounter [facility] External Department Unsolicited Yuri Lam, DO 07/26/2024 11:10 AM EDT Routine [facility] [address] [place] [address] Yuri Lam, DO Third trimester ([facility]); 31 weeks gestation of ([facility]) 07/26/2024 Clinisync Result Encounter [facility] External Department Unsolicited Yuri Lam, 07/26/2024 Bamboo flowsheet [facility] [address] [facility] [place] [address] Yuri Lam, 07/13/2024 10:30 AM EDT Routine [facility] [address] [facility] [place] [address] Yuri Lam, DO Third trimester ([facility]); 30 weeks gestation of ([facility]); H/O delivery, currently ([facility]) 07/13/2024 Bamboo flowsheet [facility] [address] [place] [address] Yuri Lam, 06/28/2024 10:10 AM EDT Routine [facility] [address] [place] [address] Radha Avila PA Second trimester ([facility]); 27 weeks gestation of ([facility]) 06/28/2024 9:30 AM EDT Ancillary Procedure [facility] OB [address] [place] [address] H/O delivery, currently ([facility]) 06/13/2024 11:40 AM EDT Routine [facility] [address] [facility] [place] [address] Yuri Lam, Second trimester ([facility]); 25 weeks gestation of ([facility]); H/O delivery, currently ([facility]); Vapes nicotine containing substance 06/13/2024 Bamboo flowsheet [facility] [address] [place] [address] Yuri Lam, 05/30/2024 Results Follow-Up [facility] [address] [place] [address] Carol Winter LPN 05/25/2024 Orders Only [facility] [address] [place] [address] Carol Winter LPN 05/25/2024 Abstract [facility] [address] [place] [address] Yuri Lam, 05/18/[address] [facility] [address] [place] [address] Radha Squires MA 05/16/2024 9:40 AM EDT Routine [facility] [address] [place] [address] Yuri Lam, 21 weeks gestation of ([facility]); Second trimester ([facility]); Diabetes mellitus screening; Well woman exam with routine gynecological exam; Exposure to STD; Vaginal discharge; Nausea 05/16/2024 Clinisync Result Encounter [facility] External Department Unsolicited Yuri Lam, DO 05/16/2024 External Result Encounter [facility] External Department Unsolicited Yuri Lam, DO 05/16/2024 Bamboo flowsheet [facility] [address] [place] [address] Yuri Lam, 05/10/[address] [facility] [address] [place] [address] Carol Winter LPN from Last 3 Months Family History Medical [...] 12 oz) 08/09/2024 8:36 AM EDT Height 160 cm (5' 3 ) 03/12/2022 12:00 PM EST Body Mass Index 29.01 03/12/2022 12:00 PM EST Plan of Treatment Upcoming Encounters Date Type Department Care Team (Late st Contact Info) Description 08/17/2024 10:00 AM EDT Routine [facility] [address] [facility] [place] [phone] Yuri Lam, DO [address] [facility] [place] [address] Procedures Procedure Name Priority Date/Time Associated Diagnosis Comments POCT URINALYSIS DIPSTICK Routine 08/09/2024 8:40 AM EDT Third trimester ([facility]) US OB BPP W NON-STRESS 08/03/2024 8:32 AM EDT US OB GROWTH 08/03/2024 8:32 AM EDT ALL CBC WITH AUTO DIFF Routine 12:13 PM EDT MLR HEMOGLOBIN A1C Routine 07/26/2024 12 :13 PM EDT POCT URINALYSIS DIPSTICK Routine 07/26/2024 11:35 AM EDT Third trimester ([facility]) POCT URINALYSIS DIPSTICK Routine 06/28/2024 10:19 AM EDT Second trimester ([facility]) US OB FOLLOW UP TRANSABDOMINAL APPROACH Routine 06/28/2024 10:08 AM EDT H/O delivery, currently ([facility]) US OB 14+ WEEKS ANATOMY SCAN 05/24/2024 5:38 PM EDT RECURRENT VAGINITIS (HTRX) Routine 05/16/2024 11:46 AM EDT POCT URINALYSIS DIPSTICK Routine 05/16/2024 9:58 AM EDT 21 weeks gestation of ([facility]) Second trimester ([facility]) IGP,APTIMA HPV,AGE GDLN Routine 05/17/19 9:57 AM EDT PAP SMEAR Routine 05/16/2024 12:00 AM EDT from Last 3 Months Results * POCT urinalysis dipstick manually resulted (08/09/2024 8:40 AM EDT) Only the most recent of4 resultswithin the time period is included. Color, [...] - Positive Urine 08/09/2024 8:40 AM EDT us Megan Diego NP POINT OF CARE TEST ENTER/EDIT ORDERABLES Final Result * US OB GROWTH (08/03/2024 8:32 AM EDT) Anatomical Region Laterality Modality Other 08/03/2024 8:32 AM EDT Narrative 08/03/2024 8:35 AM EDT [address] [address] Ultrasound Report Signed Patient: HAWK KING MR#: [id number] : 2000 Acct:[id number] Age/Sex: 23 / F ADM Date: 08/02/24 Loc: US Attending Dr: Yuri Lam D.O. Ordering Physician: Yuri Lam D.O. Date of Service: 08/02/24 Procedure(s): US OB growth Accession Number(s): [id number] cc: Yuri Lam D.O.; Physician,Non-Staff [place] [id number] Patient Name: HAWK KING MRN: [id number] date: 2000 Sex: F Assigned Patient Location: [facility] Current Patient Location: Accession/Order Number: [id number] Exam Date: 08/03/2024 08:23 Report Date: 08/03/2024 08:32 At the request of: YURI LAM DO Procedure: US OB BPP w non-stress CLINICAL INFORMATION: H/O LABOR O09.899 ULTRASOUND OB GROWTH COMPARISON: None There is a single live intrauterine gestation in cephalic presentation. There is cardiac and somatic activity. The heart rate dkdqcewy046 beats per minute. The placenta is posterior. [...] Hunt M.D. 08/03/2024 8:32 AM Dictation Location: [place] [address] Electronically authenticated by: [id number] Y Date: 08/03/2024 08:32 Dictated By: Jing Hunt M.D. Signed By: 08/03/2435 DD/ TD/TT: Web Art Director: Procedure Note Radiology, Radiologist, MD - 08/03/2024 [place] [address] Ultrasound Report Signed Patient: HAWK KING CMR#: [id number] : 2000Acct:[id number] Age/Sex: 23 / FADM Date: 08/02/24 Loc: US Attending Dr: Yuri Lam D.O. Ordering Physician: Yuri Lam D.O. Date of Service: 08/02/24 Procedure(s): US OB growth Accession Number(s): [id number] cc: Yuri Lam D.O.; Physician,Non-Staff Sindy The [address] [address] Patient Name: HAWK KING MRN: [id number] date: 2000 Sex: F Assigned Patient Location: [facility] Current Patient Location: Accession/Order Number: [id number] Exam Date: 08/03/2024 08:23 Report Date: 08/03/2024 08:32 At the request of: YURI LAM DO Procedure: US OB BPP w non-stress CLINICAL INFORMATION: H/O LABOR O09.899 ULTRASOUND OB GROWTH COMPARISON: None There is a single live intrauterine gestation in cephalic presentation.There is cardiac and somatic activity. The heart rate eyivbiwf771dsgbz per minute. The placenta is posterior. The [...] Hunt M.D. 08/03/2024 8:32 AM Dictation Location: [place] [address] Electronically authenticated by: [id number] Y Date: 508:32 Dictated By: Jing Hunt M.D. Signed By:08/03/24 0835 DD/ 0832 TD/TT: Web Art Director: us Yuri Lam DO [facility] Final Result * US OB BPP W NON-STRESS (08/03/2024 8:32 AM EDT) Anatomical Region Laterality Modality Other 08/03/2024 8:32 AM EDT Narrative 08/03/2024 8:35 AM EDT [address] [address] Ultrasound Report Signed Patient: HAWK KING MR#: [id number] : 2000 Acct:[id number] Age/Sex: 23 / F ADM Date: 08/02/24 Loc: US Attending Dr: Yuri Lam D.O. Ordering Physician: Yuri Lam D.O. Date of Service: 08/02/24 Procedure(s): US OB BPP w non-stress Accession Number(s): [id number] cc: Yuri Lam D.O.; Physician,Non-Staff MLeopoldo The [address] [address] Patient Name: HAWK KING MRN: [id number] date: 2000 Sex: F Assigned Patient Location: [facility] Current Patient Location: Accession/Order Number: [id number] Exam Date: 08/03/2024 08:23 Report Date: 08/03/2024 08:32 At the request of: YURI LAM DO Procedure: US OB BPP w non-stress CLINICAL INFORMATION: H/O LABOR O09.899 ULTRASOUND OB GROWTH COMPARISON: None There is a single live intrauterine gestation in cephalic presentation. There is cardiac and somatic activity. The heart rate ecqsdwty660 beats per minute. The placenta is posterior. [...] Hunt M.D. 08/03/2024 8:32 AM Dictation Location: [place] [address] Electronically authenticated by: [id number] Y Date: 08/03/2024 08:32 Dictated By: Jing Hunt M.D. Signed By: 08/03/24 0835 DD/ 0832 TD/TT: Web Art Director: Procedure Note Radiology, Radiologist, - 08/03/2024 [place] [address] Ultrasound Report Signed Patient: HAWK KING CMR#: [id number] : 2000Acct:[id number] Age/Sex: 23 / FADM Date: 08/02/24 Loc: US Attending Dr: Yuri Lam D.O. Ordering Physician: Yuri Lam D.O. Date of Service: 08/02/24 Procedure(s): US OB BPP w non-stress Accession Number(s): [id number] cc: Yuri Lam D.O.; Physician,Non-Staff Sindy The [place] [id number] Patient Name: HAWK KING MRN: [id number] date: 2000 Sex: F Assigned Patient Location: [facility] Current Patient Location: Accession/Order Number: [id number] Exam Date: 08/03/2024 08:23 Report Date: 08/03/2024 08:32 At the request of: YURI LAM DO Procedure: US OB BPP w non-stress CLINICAL INFORMATION: H/O LABOR O09.899 ULTRASOUND OB GROWTH COMPARISON: None There is a single live intrauterine gestation in cephalic presentation.There is cardiac and somatic activity. The heart rate jvxwnfoj800xwvde per minute. The placenta is posterior. The [...] Hunt M.D. 08/03/2024 8:32 AM Dictation Location: [place] [address] Electronically authenticated by: [id number] Y Date: 508:32 Dictated By: Jing Hunt M.D. Signed By:08/03/24 0835 DD/ 0832 TD/TT: Web Art Director: us Yuri Carole DO [facility] Final Result * MLR HEMOGLOBIN A1C (07/26/2024 12:13 PM EDT) [facility] GLYCOHEMOGLOBIN A1C 4.8 4.5 - 6.2 % TB Comment: ADA RECOMMENDED LIMIT 4.0 - 6.0 ADA THERAPEUTIC TARGET < 7.0 ACTION SUGGESTED > 7.0 ESTIMATED AVERAGE GLUCOSE 91 mg/dL TB 07/26/2024 12:1 3 PM EDT 07/26/2024 12:39 PM EDT Narrative [facility] - 07/26/2024 1:18 PM EDT us Yuri Carole DO [facility] Final [facility] * (ABNORMAL) ALL CBC WITH AUTO DIFF (07/26/2024 12:13 PM EDT) [facility] TB WBC 10.4 4.0 - 11.0 10 3/uL TBH TB RBC 3.65(L) 4.20 - 5.40 10 6/uL TBH TBH HGB 11.6(L) 12.0 - 16.0 g/dL TB TB HCT 34.6(L) 36.0 - 48.0 % TB TB MCV 94.8 81.0 - 99.0 fL TB TB MCH 31.8 26.7 - 34.0 pg TBH TB MCHC 33.5 29.9 - 35.2 g/dL TBH TB RDW 13.2 11.0 - 15.0 % TBH [...] us Yuri Carole DO [facility] Final Result [facility] * US OB follow up transabdominal approach [...] II, MD, PHD at 30-Jun-2024 12:16:48 PM [facility] Procedure Note Ann-Marie Tamayo MD - [...] signed by ANN-MARIE TAMAYO II, MD, PHD [id number] 12:16:48 PM [facility] us Yuri Lam DO IMG OB US PROCEDURES Final Resul t * US OB 14+ weeks anatomy scan (05/24/2024 5:38 PM EDT) Anatomical Region Laterality Modality Body Ultrasound 05/24/2024 5:38 PM EDT Narrative 05/24/2024 5:38 PM EDT THIS EXAM WAS PERFORMED AT [facility] NAME: DUNG ONOFRE : 2000 SEX: F Accession Number: [id number] ORDERING PHYSICIAN: VELMA GARCIA REFERRING PHYSICIAN: YURI LAM Coding ----- --------- Procedures 48578: Ultrasound, uterus, real time with image documentation, and maternal evaluation plus detailed anatomic examination, transabdominal approach;single or first gestation 38131: Transvaginal Ultrasound (OB) Indication ----- --------- Screening for Anatomic Survey , Screening for cervical length, history of thyroid disease, History of gestational hypertension, History of prior with delivery, Abnormal finding on screening of mother - + CF SMA carrier, Smoking in - vapes, marijuana use in . Supervision of high risk - Hypoplastic NB History ----- --------- OB History 5. Para 2 [id number] Current ----- --------- Cell free DNA Low [...] Cerebellum tr 24.8 mm 22w 4d 74% [place] Nuchal fold 5.3 mm AC 211.2 mm 25w 5d 98% Hadlock Femur 42.8 mm 24w 0d 75% [facility]lock Humerus 39.2 mm 24w 0d 75% Brenda HC / AC 1.03 Weight Calculation: EFW 731 g >99% Hadlock EFW (lb,oz) 1 lb 10 oz EFW by Hadlock (XEM-HC-JW-FL) Head / Face / Neck Biometry: Cephalic index 0.72 3% Nicolaides Credit Cashier 2.5 mm CM 6.3 mm 69% Nicolaides [...] view. RVOT view. LVOT view. 3-vessel view. 8-zjxqvo-woqtbid view. Situs. Aortic arch view. Bicaval view. [...] structural abnormalities. Recommendations ----- --------- Please see [facility] documentation from today. Subsequent follow up or other follow up as clinically determined by primary OB provider unless otherwise specified by MFM. Results forwarded to ordering provider so they can follow up with the patient as necessary. The copy-to physician of this order is YURI Shore The ordering physician of this order is VELMA De La O Procedure Note Radiology, Radiologist, - 05/24/2024 THIS EXAM WAS PERFORMED AT [facility] NAME: DUNG ONOFRE : 2000 SEX: F Accession Number: [id number] ORDERING PHYSICIAN: VELMA GARCIA REFERRING PHYSICIAN: YURI LAM Coding ----- --------- Procedures 35946: Ultrasound, uterus, real time with imagedocumentation, and maternal evaluation plus detailed anatomic examination, transabdominalapproach;single or first gestation 87750: Transvaginal Ultrasound (OB) Indication ----- --------- Screening for Anatomic Survey , Screening for cervical length, history ofthyroid disease, History of gestational hypertension, History of prior with delivery, Abnormalfinding on screening of mother - + CF SMA carrier, Smoking in - vapes, marijuana use in .Supervision of high risk - Hypoplastic NB History ----- --------- OB History 5. Para 2 [id number] Current ----- --------- Cell free DNA Low [...] 1 lb 10 oz EFW by Hadlock (DOM-CS-FG-FL) Head / Face / Neck Biometry: Cephalic index 0.72 3% Nicola[employer] Cashier 2.5 mm CM 6.3 mm 69% Nicolaides [...] 4-chamber view. RVOT view. LVOT view. 3-vessel view.0-jegmbn-lyeeerl view. Situs. Aortic arch view. Bicaval view. [...] structural abnormalities. Recommendations ----- --------- Please see [facility] documentation from today. Subsequent follow up or other follow up as clinically determined byprimary OB provider unless otherwise specified by [facility]. Results forwarded to ordering provider so they can follow up with thepatient as necessary. The copy-to physician of this order is YURI Shore The ordering physician of this order is VELMA De La O us Yuri Lam DO IMG OB US PROCEDURES Final Resul t * (ABNORMAL) RECURRENT VAGINITIS (HTRX) (05/16/2024 11:46 AM EDT) [facility] ATOPOBIUM VAGINAE 19.357(A) 19.961 - 24.689 ppm 05/17/2024 9:14 AM EDT [facility] ATOPOBIUM VAGINAE Detected(A) 19.961 - 24.689 ppm 05/17/2024 9:14 AM EDT [facility] BVAB 2,3 (BACTERIAL VAGINOSIS ASSOCIATED BACTERIA 2, 3); MOBILUNCUS SPP 16.919(A) 19.961 - 24.689 ppm 05/17/2024 9:14 AM EDT [facility] BVAB 2,3 (BACTERIAL VAGINOSIS ASSOCIATED BACTERIA 2, 3); MOBILUNCUS SPP Detected(A) 19.961 - 24.689 ppm 05/17/2024 9:14 AM EDT [facility] ALYSSA ALBICANS, PARAPSILOSIS, TROPICALIS 0.000 19.961 - 30.770 ppm 05/17/2024 9:14 AM EDT [facility] ALYSSA ALBICANS, PARAPSILOSIS, TROPICALIS Not Detected 19.961 - 30.770 ppm 05/17/2024 9:14 AM EDT [facility] ALYSSA GLABRATA 0.000 23.000 - 32.138 ppm 05/17/2024 9:14 AM EDT [facility] ALYSSA GLABRATA Not Detected 23.000 - 32.138 ppm 05/17/2024 9:14 AM EDT [facility] ALYSSA KRUSEI 0.000 23.000 - 32.271 ppm 05/17/2024 9:14 AM EDT [facility] ALYSSA KRUSEI Not Detected 23.000 - 32.271 ppm 05/17/2024 9:14 AM EDT [facility] CHLAMYDIA TRACHOMATIS 0.000 23.000 - 31.467 ppm 05/17/2024 9:14 AM EDT [facility] CHLAMYDIA TRACHOMATIS Not Detected 23.000 - 31.467 ppm 05/17/2024 9:14 AM EDT [facility] GARDNERELLA VAGINALIS 24.591(A) 19.961 - 24.689 ppm 05/17/2024 9:14 AM EDT [facility] GARDNERELLA VAGINALIS Detected(A) 19.961 - 24.689 ppm 05/17/2024 9:14 AM EDT [facility] MEGASPHAERA (TYPES 1, 2) 0.000 19.961 - 24.689 ppm 05/17/2024 9:14 AM EDT [facility] MEGASPHAERA (TYPES 1, 2) Not Detected 19.961 - 24.689 ppm 05/17/2024 9:14 AM EDT [facility] NEISSERIA GONORRHOEAE 0.000 23.000 - 32.117 ppm 05/17/2024 9:14 AM EDT [facility] NEISSERIA GONORRHOEAE Not Detected 23.000 - 32.117 ppm 05/17/2024 9:14 AM EDT [facility] TRICHOMONAS VAGINALIS 0.000 23.000 - 32.119 ppm 05/17/2024 9:14 AM EDT [facility] TRICHOMONAS VAGINALIS Not Detected 23.000 - 32.119 ppm 05/17/2024 9:14 AM EDT [facility] MYCOPLASMA GENITALIUM 22.396(A) 19.961 - 24.689 ppm 05/17/2024 9:14 AM EDT [facility] MYCOPLASMA GENITALIUM Detected(A) 19.961 - 24.689 ppm 05/17/2024 9:14 AM EDT [facility] ERMB, C; MEFA 19.876(A) 23.000 - 27.611 ppm 05/17/2024 9:14 AM EDT [facility] ERMB, C; MEFA Detected(A) 23.000 - 27.611 ppm 05/17/2024 9:14 AM EDT [facility] TET B, TET M 20.657(A) 23.000 - 27.778 ppm 05/17/2024 9:14 AM EDT [facility] TET B, TET M Detected(A) 23.000 - 27.778 ppm 05/17/2024 9:14 AM EDT [facility] Tissue 05/16/2024 11:4 6 AM EDT 05/17/2024 4:10 AM EDT us Yuri Lam DO LAB BLOOD ORDERABLES Final Resul t [facility] [address] [place] [address] * IGP,APTIMA HPV,AGE GDLN (05/16/2024 9:57 AM EDT) AGE GDLN ACOG TESTING Note . [facility] Comment: TESTS RESULT FLAG UNITS REF RANGE LAB Clinician Provided Cytology Information Source.............Cervix Other.............. No. of containers..01 ThinPrep Vial Age Algo ACOG Vicky... -08 03 FLAG LEGEND: L-Low Normal,H-High Normal,LL-Alert Low,HH-Alert High <-Panic Low,>-Panic High,A-Abnormal,AA-Critical Abnormal Performed at: 01 =G [facility] [place] [address] Katie Lopez MD, IGP, RFX APTIMA HPV ASCU Note . [facility] Comment: TESTS RESULT FLAG UNITS REF RANGE LAB DIAGNOSIS: 02 NEGATIVE FOR INTRAEPITHELIAL LESION OR MALIGNANCY. Specimen adequacy: 02 Satisfactory for evaluation. Endocervical and/or squamous metaplastic cells (endocervical component) are present. Performed by: 02 Radha Cruz, Melt Room Operator (ASCP) . 02 Note: Note 03 The Pap [...] Low,>-Panic High,A-Abnormal,AA-Critical Abnormal Performed at: 02 [facility] [address] [address] [place] [address] Fer Mehta MD, 03 WB [facility] [address] [address] Katie Lopez MD, Performed at: =G - [facility] [address] [id number] Tank Car Repairer: Katie Lopez MD, Phone: [phone] Performed at: [facility] [address] [address] [place], [place] [id number] Tank Car Repairer: Fer Mehta MD, Phone: [phone] 05/16/2024 9:57 AM EDT 05/16/2024 2:50 PM EDT Narrative [facility] - 05/19/2024 11:20 AM EDT SPATULA-ALONE CERVIX Yuri Carole DO LAB BLOOD ORDERABLES Final Resul t Performing Organization Address [facility] Co de Phone Number [facility] * Pap Smear (05/16/2024 12:00 AM EDT) Swab Cervical swab / Unknown Yuri Carole DO LAB CYTOLOGY ORDERABLES Final Re sult Performing Organization Address [facility] Co de Phone Number EXTERNAL LAB from Last 3 Months Insurance UNIT [address] [place] [address] [place] Care Teams Bag Bleacher Relationship Specialty Start Date End Date Ann-Marie Ash MD [address] [place], [place] [id number] PCP - General Family Medicine 07/03/22
--- OUTSIDE RECORDS SUMMARY | 2024-08-09 12:10 | XMS_ITS | Encounter Summary ---
Author Organization [facility] Address [id number] [address] [place] [address] Care Team Providers Care Aoc Aadc Operations Staff Officer Name Role Phone Orlando Ash MD Primary Care Provider [phone] Encounter Details Date Type Department Care Team (Late st Contact Info) Description 07/03/2021 Telephone [facility] Obstetrics/Gynecology [address] [place] [phone] Rachel Dan, [facility] Social History Tobacco Use Types Packs/Day Years [...] 8 weeks and mom is traveling to [place] and patient would like to ride along. Patient miscarried back in January and her mom wants to be sure its safe for pt to ride in a car to and from [place]. She doesn't want to cause any kind of demise to fetus. Pleaseadvise. Thanks! * Telephone Encounter - KRSITYN Mcdowell - 07/03/2021 11:30 AM EDT Patient may travel to [place]. She should make frequent stops to stretch her legs, keep her feet and ankles moving and could also wear compression stocking to improve circulation/decrease possibility of a blood clot. * Telephone Encounter - Rcahel Dan CMA - 07/03/2021 11:30 AM EDT Patient given information and suggestions. She verbalized understanding. documented in this encounter Plan of Treatment Not on file documented as of this encounter Visit Diagnoses Not on filedocumented in this encounter Additional Health Concerns Infection Onset Date Last Indicated Resolved Time COVID-19 Rule-Out 03/22/2023 03/22/2023 03/22/2023 2:37 PM EST documented as of this encounter Care Teams Aoc Aadc Operations Staff Officer Relationship Specialty Start Date End Date Orlando Ash MD [address] [place] [address] PCP - General Family Medicine 06/09/18 documented as of this encounter
--- OUTSIDE RECORDS SUMMARY | 2024-08-09 12:10 | XMS_ITS | Encounter Summary ---
Author Organization [facility] Address [id number] [address] [place] [address] Care Team Providers Care Save All Operator Name Role Phone Orlando Ash MD Primary Care Provider [phone] Encounter Details Date Type Department Care Team (Late st Contact Info) Description 06/06/2021 Telephone [facility] Obstetrics/Gynecology [address] [place] [phone] Tory Calloway MA Social History Tobacco Use [...] documented as of this encounter Care Teams Save All Operator Relationship Specialty Start Date End Date Orlando Ash MD [address] [place] [address] PCP - General Family Medicine 06/09/18 documented as of this encounter
--- OUTSIDE RECORDS SUMMARY | 2024-08-09 12:10 | XMS_ITS | Encounter Summary ---
Author Organization [facility] Address [address] [place] [address] Care Team Providers Care Textile Machine Maintenance Mechanic Name Role Phone Orlando Ash MD Primary Care Provider [phone] Encounter Details Date Type Department Care Team (Late Contact Info) Description 08/03/2024 Clinisync Result Encounter NOMS External Department Unsolicited Yuri Lam DO [address] [place], [facility]11 Social History Tobacco Use Types Packs/Day Years [...] Routine [facility] BCP [place] [address] [place] [phone] Yuri Lam DO [address] [place] [address] documented as of this encounter Procedures Procedure Name Priority Date/Time Associated Diagnosis Comments US OB BPP W NON-STRESS 08/03/2024 8:32 AM EDT documented in this encounter Results * US OB BPP W NON-STRESS (08/03/2024 8:32 AM EDT) Anatomical Region Laterality Modality Other 08/03/2024 8:32 AM EDT Narrative 08/03/2024 8:35 [place] [address] Ultrasound Report Signed Patient: HAWK KING MR#: [id number] : 2000 Acct:[id number] Age/Sex: 23 / F ADM Date: 08/02/24 Loc: US Attending Dr: Yuri Lam D.O. Ordering Physician: Yuri Lam D.O. Date of Service: 08/02/24 Procedure(s): US OB BPP w non-stress Accession Number(s): [id number] cc: Yuri Lam D.O.; Physician,Non-Staff M.DTaylor The [place] [address] Patient Name: HAWK KING MRN: [id number] date: 2000 Sex: F Assigned Patient Location: [facility] Current Patient Location: Accession/Order Number: [id number] Exam Date: 08/03/2024 08:23 Report Date: 08/03/2024 08:32 At the request of: YURI LAM DO Procedure: US OB BPP w non-stress CLINICAL INFORMATION: H/O LABOR O09.899 ULTRASOUND OB GROWTH COMPARISON: None There is a single live intrauterine gestation in cephalic presentation. There is cardiac and somatic activity. The heart rate rpqpwogn156 beats per minute. The placenta is posterior. [...] Hunt M.D. 08/03/2024 8:32 AM Dictation Location: [place] [address] Electronically authenticated by: [id number] Y Date: 08/03/2024 08:32 Dictated By: Jing Hunt M.D. Signed By: 08/03/24 0835 DD/ 0832 TD/TT: Engagement Liaison: Procedure Note Radiology, Radiologist, - 08/03/2024 [place] [address] Ultrasound Report Signed Patient: HAWK KING [facility]#: [id number] : 2000Acct:[id number] Age/Sex: 23 / FADM Date: 08/02/24 Loc: US Attending Dr: Yuri Lam D.O. Ordering Physician: Yuri Lam D.O. Date of Service: 08/02/24 Procedure(s): US OB BPP w non-stress Accession Number(s): [id number] cc: Yuri Lam D.O.; Physician,Non-Staff Sindy The [place] [id number] Patient Name: HAWK KING MRN: [id number] date: 2000 Sex: F Assigned Patient Location: [facility] Current Patient Location: Accession/Order Number: [id number] Exam Date: 08/03/2024 08:23 Report Date: 08/03/2024 08:32 At the request of: YURI LAM DO Procedure: US OB BPP w non-stress CLINICAL INFORMATION: H/O LABOR O09.899 ULTRASOUND OB GROWTH COMPARISON: None There is a single live intrauterine gestation in cephalic presentation.There is cardiac and somatic activity. The heart rate [id number] per minute. The placenta is posterior. The [...] Hunt M.D. 08/03/2024 8:32 AM Dictation Location: [place] [address] Electronically authenticated by: [id number] Y Date: 508:32 Dictated By: Jing Hunt M.D. Signed By:08/03/2435 DD/ 1 TD/TT: Engagement Liaison: us Yuri Carole DO [facility] Final Result documented in this encounter Visit Diagnoses Not on filedocumented in this encounter Care Teams Textile Machine Maintenance Mechanic Relationship Specialty Start Date End Date Orlando Ash MD [address] [place] [address] PCP - General Family Medicine 07/03/22 documented as of this encounter
--- NOTE | 2024-08-09 12:11 | US_ITS ---
[address] [address] Patient Name: JEMIMA RAZO MRN: [id number] date: 2000 Sex: F Assigned Patient Location: [facility] Current Patient Location: [facility] Accession/Order Number: [id number] Exam Date: 08/09/2024 13:32 Report Date: 08/09/2024 13:33 At the request of: YURI REDDY DO Procedure: US OB cervical length Cervical length ultrasound. Reason for exam: 2 cm dilated in office. COMPARISON: None. TECHNIQUE: Transvaginal imaging of the cervix was obtained. FINDINGS: Cervical length measures 2.4 cm with fluid seen within the canal. No definite funneling is seen. position is cephalic at time of scanning. heart rate 167 bpm. US/US OB cervical length IMPRESSION: Shortening of the cervix to 2.4 cm with fluid seen within the cervical canal. No definite funneling is seen. Impression dictated by: Wojciech Farah Jr., D.O. 08/09/2024 1:33 PM Dictation Location: [place] Electronically authenticated by: [id number] Y Date: 08/09/2024 13:33
--- NOTE | 2024-08-09 12:20 | US_ITS ---
[address] [address] Patient Name: JEMIMA RAZO MRN: [id number] date: 2000 Sex: F Assigned Patient Location: [facility] Current Patient Location: Accession/Order Number: [id number] Exam Date: 08/09/2024 13:42 Report Date: 08/09/2024 13:42 At the request of: YURI REDDY DO Procedure: US OB BPP w non-stress Biophysical profile. Reason for exam: Large for dates. COMPARISON: BPP 08/02/2024. TECHNIQUE: Transabdominal imaging of the gravid uterus was obtained. FINDINGS: Police Patrol Lieutenant reports a BPP of 8 out of 8. JACKELYN is normal at 17.9 cm. heart rate 167 bpm. US/US OB BPP w non-stress Impression: BPP 8 out of 8. Impression dictated by: Wojciech Farah Jr., D.O. 08/09/2024 1:42 PM Dictation Location: [place] [address] Electronically authenticated by: [id number] Y Date: 08/09/2024 13:42
[2024-08-09] MEDS: BETAMETHASONE ACE/BETAMETHASONE SOD PHOS 30 MG/5 ML 12 MG IM (13:18)
== END 2024-08-09 13:20 | disposition home or self-care (01) ==
LOC: US 12:07 → FBC 12:09
PROVIDERS: Visit Provider Obstetrics & Gynecology
DX: O26.893 Other specified pregnancy related conditions, third trimester (principal)
CPT/HCPCS: 76817; 76818; 96372; J0702

== ENCOUNTER 2024-08-10 14:26 | Outpatient (OUT) | payer MEDICAID, SELFPAY ==
[2024-08-10] MEDS: BETAMETHASONE ACE/BETAMETHASONE SOD PHOS 30 MG/5 ML 12 MG IM (14:39)
[2024-08-10 14:40] VITALS: BP 107/52; PULSE 93; TEMP 36.7
[2024-08-10 14:42] VITALS: BP 107/52; PULSE 93
== END 2024-08-10 15:00 | disposition home or self-care (01) ==
LOC: FBCO 14:28 → FBC 14:33
PROVIDERS: Visit Provider Obstetrics & Gynecology
DX: Z36.84 Encounter for antenatal screening for fetal lung maturity (principal)
CPT/HCPCS: 96372; J0702

== ENCOUNTER 2024-08-12 10:42 | Outpatient (OUT) | payer MEDICAID, SELFPAY ==
--- OUTSIDE RECORDS SUMMARY | 2023-11-15 13:15 | XMS_ITS ---
Author Organization [facility] vices Address [address] [place] [id number] Care Team Providers Care Entry Level Accountant Name Role Phone Chris Rodriguez Unavailable [phone] REASON FOR VISIT (DIGITAL MEDIA SPECIALIST) Initial Evaluation- Bipolar, Anxiety, and Depression Social History Sex Assigned At : Social History Observation Description Sex Assigned At Female Encounters Encounter Location Date Provider Diagnosis Main [address] [place] [id number] 11/15/2023 Chris Rodriguez Plan Of Treatment No Information Progress Notes * Jeremy KINGEmilyOB:2000 (23 yo F)Acc No.[id number]:11/15/2023 Patient: Hawk CHAMPION Provider: NORMAN Gonzalez :2000 A ge:22 Y S ex:Female Date:11/15/2023 Address:[address], [id number] Subjective: * Chief Complaints: * 1 . (DIGITAL MEDIA SPECIALIST) Initial Evaluation- Bipolar, Anxiety, and Depression. * Medical History: Objective: * Vitals: Assessment: Plan: * Treatment: Care Plan: * Problems: * Billing Information: * Visit Code: * Procedure Codes: Care Plan Details* * Electronic signature of NORMAN Escobedo on 08/12/2024 at 10:49 AM EDT Sign off status: Pending * Provider: NORMAN Gonzalez Date: 1 Generated for Nikunj zheng/Peace/eTransmitting on: 0 08/12/2024 10:49 AM EDT
--- OUTSIDE RECORDS SUMMARY | 2024-08-09 08:30 | XMS_ITS | Encounter Summary ---
Author Organization [facility] Address [address] [place] [address] Care Team Providers Care Animal Science Instructor Name Role Phone Orlando Ash MD Primary Care Provider [phone] Reason for Visit * Reason Comments Routine Visit Encounter Details Date Type Department Care Team (Late st Contact Info) Description 08/09/2024 8:30 AM EDT Routine [facility] BCP OB [address] [facility] [place] [address] Megan Diego, PROGRAM MANAGEMENT PROFESSIONAL [address] [facility] [place] [address] Third trimester ([facility]); 33 weeks gestation of ([facility]) Social History Tobacco Use Types Packs/Day Years [...] this encounter Progress Notes * Megan Diego, PROGRAM MANAGEMENT PROFESSIONAL - 08/09/2024 8:30 AM EDT Reason for [...] day smoker Heartburn History of miscarriage, currently ([facility]) HISTORY PAST MEDICAL HISTORY SOCIAL HISTORY Past Medical History: Diagnosis Date Carrier of spinal muscular atrophy Current every day smoker Heartburn History of miscarriage, currently ([facility]) Social History Tobacco Use Smoking status: Every [...] nursing note reviewed. Exam conducted with a economic analyst present. Vitals: Estimated body mass index is 29.01 kg/m² as calculated from the following: Height as of 03/12/22: 5' 3 . Weight as of this encounter: 163 lb 12 oz. BP: 110/58 No LMP recorded. Patient is . ASSESSMENT & PLAN ICD-10-CM 1. Third trimester ([facility]) Z34.93 POCT urinalysis dipstick manually resulted 2. 33 weeks gestation of ([facility]) Z3A.33 Return OB: Patient presents today for [...] AM EDT Routine [facility] BCP OB [address] [place] [address] Eusebio Lam, [address] [place] [address] documented as of this encounter Procedures Procedure [...] this encounter Visit Diagnoses Diagnosis Third trimester ([facility]) state, incidental 33 weeks gestation of ([facility]) documented in this encounter Care Teams Animal Science Instructor Relationship Specialty Start Date End Date Orlando Ash MD [address] [place] [address] PCP - General Family Medicine 07/03/22 documented as of this encounter
--- OUTSIDE RECORDS SUMMARY | 2024-08-12 10:49 | XMS_ITS | Encounter Summary ---
Author Organization [facility] Address [address] [place] [place] [address] Care Team Providers Care Audio Visual Equipment Rental Clerk Name Role Phone Janee Del Valle MD Unavailable Orlando Ash MD Primary Care Provider [phone] Encounter Details Date Type Department Care Team (Late st Contact Info) Description 07/03/2022 Clinisync Result Encounter [facility] External Department Unsolicited Eusebio Lam, DO [address] [place] [address] Social History Tobacco Use Types Packs/Day Years [...] Routine [facility] BCP OB [address] [place] [phone] Eusebio Lam DO [address] [place] [address] documented as of this encounter Procedures Procedure [...] Date: 2022-07-03 17:20 us Eusebio Carole DO [facility] Final Result documented in this encounter Visit Diagnoses Not on filedocumented in this encounter Care Teams Audio Visual Equipment Rental Clerk Relationship Specialty Start Date End Date Janee Del Valle MD [address] [place] [address] PCP - [place] [employer] 03/11/22 Orlando Ash MD [address] [place] [address] PCP - General Family Medicine 07/03/22 documented as of this encounter
--- OUTSIDE RECORDS SUMMARY | 2024-08-12 10:49 | XMS_ITS | Patient Health Record ---
Author Organization [facility] Address [address] [place], [place] [id number] Care Team Providers Care Sales Audit Clerk Name Role Phone Chris Rodriguez Unavailable [phone] Reason For Referral No Information Social History Sex Assigned At : Social History Observation Description Sex Assigned At Female Plan Of Treatment No Information Insurance Providers Payer Name Payer Address Payer Phone Subscriber Number Group Number Insured Name Patient Relationship to Insured Coverage Start Date Coverage End Date [facility] [address] [place] [phone] [id number] Hawk King Self - patient is the insured
--- OUTSIDE RECORDS SUMMARY | 2024-08-12 10:49 | XMS_ITS | Encounter Summary ---
Author Organization [facility] Address [address] [place] [address] Care Team Providers Care Tape Rules Printing Machine Operator Name Role Phone Orlando Ash MD Primary Care Provider [phone] Encounter Details Date Type Department Care Team (Late st Contact Info) Description 08/09/2024 Clinisync Result Encounter [facility]OMS External Department Unsolicited Yuri Lam DO [address] [place], [facility]11 Social History Tobacco Use Types Packs/Day Years [...] Routine [facility] BCP OB [address] [place] [phone] Yuri Lam DO [address] [place] [address] documented as of this encounter Procedures Procedure Name Priority Date/Time Associated Diagnosis Comments US OB BPP W NON-STRESS 08/09/2024 1:42 PM EDT documented in this encounter Results * US OB BPP W NON-STRESS (08/09/2024 1:42 PM EDT) Anatomical Region Laterality Modality Other 08/09/2024 1:42 PM EDT Narrative 08/09/2024 1:45 [place] [address] Ultrasound Report Signed Patient: HAWK KING MR#: [id number] : 2000 Acct:[id number] Age/Sex: 23 / F ADM Date: 08/09/24 Loc: US Attending Dr: Yuri Lam D.O. Ordering Physician: Yuri Lam D.O. Date of Service: 08/09/24 Procedure(s): US OB BPP w non-stress Accession Number(s): [id number] cc: Yuri Lam D.O.; Physician,Non-Staff M.DTaylor The [place] [address] Patient Name: HAWK KING MRN: [id number] date: 2000 Sex: F Assigned Patient Location: [facility] Current Patient Location: Accession/Order Number: [id number] Exam Date: 08/09/2024 13:42 Report Date: 08/09/2024 13:42 At the request of: YURI LAM DO Procedure: US OB BPP w non-stress Biophysical profile. Reason for exam: Large for dates. COMPARISON: BPP 08/02/2024. TECHNIQUE: Transabdominal imaging of the gravid uterus was obtained. FINDINGS: Boardmarker reports a BPP of 8 out of 8. JACKELYN is normal at 17.9 cm. heart rate 167 bpm. US/US OB BPP w non-stress Impression: BPP 8 out of 8. Impression dictated by: Wojciech Farah Jr., D.O. 08/09/2024 1:42 PM Dictation Location: [place] [address] Electronically authenticated by: [id number] Y Date: 08/09/2024 13:42 Dictated By: Wojciech Farah M.D. Signed By: 08/09/24 1345 DD/ 134 TD/TT: Retail Marketing Executive: Procedure Note Radiology, Radiologist, MD - 08/09/2024 [place] [address] Ultrasound Report Signed Patient: HAWK KING CMR#: [id number] : 2000Acct:[id number] Age/Sex: 23 / FADM Date: 08/09/24 Loc: US Attending Dr: Yuri Lam D.O. Ordering Physician: Yuri Lam D.O. Date of Service: 08/09/24 Procedure(s): US OB BPP w non-stress Accession Number(s): [id number] cc: Yuri Lam D.O.; Physician,Non-Staff Sindy [address] [place] [address] Patient Name: HAWK KING MRN: [id number] date: 2000 Sex: F Assigned Patient Location: [facility] Current Patient Location: Accession/Order Number: [id number] Exam Date: 08/09/2024 13:42 Report Date: 08/09/2024 13:42 At the request of: YURI LAM DO Procedure: US OB BPP w non-stress Biophysical profile. Reason for exam: Large for dates. COMPARISON: BPP 08/02/2024. TECHNIQUE: Transabdominal imaging of the gravid uterus was obtained. FINDINGS: Boardmarker reports a BPP of 8 out of 8. JACKELYN is normal at 17.9cm. heart rate 167 bpm. US/US OB BPP w non-stress Impression: BPP 8 out of 8. Impression dictated by: Wojciech Farah Jr., D.O. 08/09/2024 1:42 PM Dictation Location: [place] [address] Electronically authenticated by: [id number] Y Date: 3:42 Dictated By: Wojciech Farah M.D. Signed By:08/09/24 1345 DD/ 1342 TD/TT: Retail Marketing Executive: us Yuri Carole DO [facility] Final Result documented in this encounter Visit Diagnoses Not on filedocumented in this encounter Care Teams Tape Rules Printing Machine Operator Relationship Specialty Start Date End Date Orlando Ash MD [address] [place] [address] PCP - General Family Medicine 07/03/22 documented as of this encounter
--- OUTSIDE RECORDS SUMMARY | 2024-08-12 10:49 | XMS_ITS | Encounter Summary ---
Author Organization [employer] Address [facility]-[id number] [address] [place] [address] Care Team Providers Care Tail Edger Name Role Phone Orlando Ash MD Primary Care Provider Encounter Details Date Type Department Care Team (Late st Contact Info) Description 07/21/2021 Orders Only [facility] [address] [facility] [address] [place] [phone] Genny Mosquera, MARTY care in first trimester; [...] documented as of this encounter Care Teams Tail Edger Relationship Specialty Start Date End Date Orlando Ash MD [address] [place] [address] PCP - General Family Medicine 06/09/18 documented as of this encounter
--- OUTSIDE RECORDS SUMMARY | 2024-08-12 10:49 | XMS_ITS | Encounter Summary ---
Author Organization [facility] Address [address] [facility] [place] [address] Care Team Providers Care Ice Cream Scooper Name Role Phone Janee Del Valle MD Unavailable Orlando Ash MD Primary Care Provider [phone] Encounter Details Date Type Department Care Team (Late st Contact Info) Description 07/20/2022 Abstract [facility] BCP OB [address] [place] [address] Eusebio Lam, [address] [place], [place] [id number] Social History Tobacco Use Types Packs/Day Years [...] AM EDT Routine [facility] BCP OB [address] [place] [address] Eusebio Lam [facility] [place] [address] documented as of this encounter Visit Diagnoses Not on filedocumented in this encounter Care Teams Ice Cream Scooper Relationship Specialty Start Date End Date Janee Del Valle MD [address] [place] [address] PCP - [place] [employer] 03/11/22 Orlando Ash MD [address] [place] [address] PCP - General Family Medicine 07/03/22 documented as of this encounter
--- OUTSIDE RECORDS SUMMARY | 2024-08-12 10:49 | XMS_ITS | Encounter Summary ---
Author Organization [facility] Address [address] [place] [address] Care Team Providers Care Sand Caster Apprentice Name Role Phone Orlando Ash MD Primary Care Provider [phone] Encounter Details Date Type Department Care Team (Late Contact Info) Description 05/25/2024 Abstract [facility] [address] [place] [address] Eusebio Lam DO [facility] [address] [place], [place] [address] Social History Tobacco Use Types Packs/Day Years [...] Routine [facility] OB [address] [place] [address] Eusebio Lam DO [facility] [address] [place], [place] [address] documented as of this encounter Visit Diagnoses Not on filedocumented in this encounter Care Teams Sand Caster Apprentice Relationship Specialty Start Date End Date Orlando Ash MD [address] [place] [address] PCP - General Family Medicine 07/03/22 documented as of this encounter
--- OUTSIDE RECORDS SUMMARY | 2024-08-12 10:49 | XMS_ITS | Encounter Summary ---
Author Organization [facility] Address [address] [place] [address] Care Team Providers Care Flaker Tender Name Role Phone Janee Del Valle MD Unavailable Orlando Ash MD Primary Care Provider [phone] Encounter Details Date Type Department Care Team (Late Contact Info) Description 08/06/2022 Abstract N[facility] OB [address] [facility] [place] [address] [place] [address] [address] [place], [place] [id number] Social History Tobacco Use Types Packs/Day Years [...] Description 08/17/2024 10:00 AM EDT Routine [facility] OB [address] [facility] [place] [address] [place] [address] [address] [place], [place] [address] documented as of this encounter Visit Diagnoses Not on filedocumented in this encounter Care Teams Flaker Tender Relationship Specialty Start Date End Date Janee Del Valle MD [address] [place] [address] PCP - [facility] Galleg[facility] 03/11/22 Orlando Ash MD [address] [place], [place] [address] PCP - General Family Medicine 07/03/22 documented as of this encounter
--- OUTSIDE RECORDS SUMMARY | 2024-08-12 10:49 | XMS_ITS | Clinical Summary ---
Author Organization [employer] tem Address [facility]-[id number] [address] [place] [address] Care Team Providers Care Grand Scribe Name Role Phone Orlando Ash MD Primary Care Provider [phone] Allergies No known active allergies Medications 23-rmdx-nlsnfx 9-dha 31 mg iron- 1 mg-200 mg [...] AM EDT Office Visit Maternal- Medicine at [facility] [address] [place] [phone] Nidhi Nicole MD 22 weeks gestation of (Primary Dx); History of gestational hypertension; History of delivery, currently ; Vaping nicotine dependence, non-tobacco product; Marijuana use during ; Genetic carrier 05/24/2024 9:03 AM EDT - 05/24/2024 11:59 PM EDT Hospital Encounter [facility] Imaging [address] [place] [address] Screening, , for anatomic survey Discharge Disposition: [...] Procedure Name Priority Date/Time Associated Diagnosis Comments [facility] COMPREHENSIVE ANATOMIC SURVEY Routine 05/24/2024 10:46 AM EDT Screening, , for anatomic survey CHLAMYDIA/GC BY PCR SINDI SWAB Routine 06/24/2021 8:36 AM EDT care in first trimester PAP SMEAR Routine 02/25/2021 12:56 PM EST Cervical cancer screening Well woman exam from Last 3 Months or Most Recently Relevant to Health Maintenance Results * US [facility] COMPREHENSIVE ANATOMIC SURVEY (05/24/2024 10:46 AM EDT) Anatomical Region Laterality Modality OB-SIGN ERECTOR Ultrasound 05/24/2024 9:25 AM EDT Narrative 05/24/2024 5:38 PM EDT NAME: CHRISTINE ONOFRE : 2000 SEX: F Accession Number: [id number] ORDERING PHYSICIAN: VELMA GARCIA REFERRING PHYSICIAN: YURI REDYD Coding ----- --------- Procedures [address]20: Ultrasound, uterus, real time with image documentation, and maternal evaluation plus detailed anatomic examination, transabdominal approach;single or first gestation 77749: Transvaginal Ultrasound (OB) Indication ----- --------- Screening for Anatomic Survey , Screening for cervical length, history of thyroid disease, History of gestational hypertension, History of prior with delivery, Abnormal finding on screening of mother - + CF & SMA carrier, Smoking in - vapes, marijuana use in . Supervision of high risk - Hypoplastic NB History ----- --------- OB History 5. Para 2 [id number] Current ----- --------- Cell free DNA Low [...] 1 lb 10 oz EFW by Hadlock ([id number]) Head / Face / Neck Biometry: Cephalic index 0.72 3% Nicolaides Fermenter Champagne 2.5 mm CM 6.3 mm 69% Nicolaides [...] view. RVOT view. LVOT view. 3-vessel view. 5-uapcsb-btksuoq view. Situs. Aortic arch view. Bicaval view. [...] structural abnormalities. Recommendations ----- --------- Please see [facility] documentation from today. Subsequent follow up or other follow up as clinically determined by primary OB provider unless otherwise specified by M. Results forwarded to ordering provider so they can follow up with the patient as necessary. Procedure Note Nidhi Nicole MD - 05/24/2024 NAME: CHRISTINE ONOFRE : 2000 SEX: F Accession Number: [id number] ORDERING PHYSICIAN: VELMA GARCIA REFERRING PHYSICIAN: YURI REDDY Coding ----- --------- Procedures 09272: Ultrasound, uterus, real time with imagedocumentation, and maternal evaluation plus detailed anatomic examination, transabdominalapproach;single or first gestation [address]751: Transvaginal Ultrasound (OB) Indication ----- --------- Screening for Anatomic Survey , Screening for cervical length, history ofthyroid disease, History of gestational hypertension, History of prior with delivery, Abnormalfinding on screening of mother - + CF & SMA carrier, Smoking in - vapes, marijuana use in .Supervision of high risk - Hypoplastic NB History ----- --------- OB History 5. Para 2 [id number] Current ----- --------- Cell free DNA Low [...] 1 lb 10 oz EFW by Hadlock ([id number]) Head / Face / Neck Biometry: Cephalic index 0.72 3% Nicolaides Fermenter Champagne 2.5 mm CM 6.3 mm 69% Nicolaides [...] 4-chamber view. RVOT view. LVOT view. 3-vessel view.4-nzzrjn-xqsbyca view. Situs. Aortic arch view. Bicaval view. [...] structural abnormalities. Recommendations ----- --------- Please see [facility] documentation from today. Subsequent follow up or other follow up as clinically determined byprimary OB provider unless otherwise specified by [facility]. Results forwarded to ordering provider so they can follow up with thepatient as necessary. Velma Garcia MD [facility] [place] ORDERABLES Final Result * Chlamydia/GC by PCR Sindi Swab (06/24/2021 8:36 AM EDT) Specimen source CERVICAL 10:25 AM EDT [facility] Chlamydia DNA PCR Negative Negative^N egative 06/26/2021 6:02 AM EDT [facility] Comment: Chlamydia trachomatis not detected by nucleic acid amplification. This does not exclude the possibility of infection because results are dependent on adequate specimen collection. Gonorrhea DNA PCR Negative Negative^N egative 06/26/2021 6:02 AM EDT [facility] Comment: Neisseria gonorrhoeae not detected by nucleic acid amplification. This does not exclude the possibility of infection because results are dependent on adequate specimen collection. GENS 06/24/2021 8:36 AM EDT 06/25/2021 10:25 AM EDT us Lima Gonzalez APRN-[facility] - GENERAL O RDERABLES Final Result [facility] [address] [place] [address] * Pap Smear (02/25/2021 12:56 PM EST) 02/25/2021 12:5 6 PM EST 02/26/2021 12:58 PM EST Narrative COPATH - 02/27/2021 2:27 PM EST [facility] [address] [place] [address] Gynecologic Cytology Consultation Patient Name: HAWK KING : 2000 (Age: 20) Gender: F Taken: 02/25/2021 Reported: 02/27/2021 Physician(s): Lima Gonzalez CNM ([phone]) Copy To: Med. Rec. #: [id number] Acct: # [id number] Final Cytologic Interpretation ThinPrep Pap Test (Cervical): Satisfactory for evaluation. A transformation zone component was not noted. NEGATIVE FOR INTRAEPITHELIAL LESION OR MALIGNANCY. Shift in missy suggestive of bacterial vaginosis. Comment: This ThinPrep slide could not be successfully imaged by the [facility] ThinPrep Imaging System so it was manually screened. [facility] [place]/02/27/2021 Interpretation performed at [facility], [address] [place] [address], License number: [id number]. Electronically Signed Out By PAUL Madrigal(ASCP) Date of Last Menstrual Period: 02/20/2021 Other Clinical Conditions: Z12.4 Screening for malignant neoplasm of cervix Z01.419 Cosmetology Instructor exam wo/abn findings Source of Specimen ThinPrep Pap Test (Cervical) Thin Prep Pap (SIGN ERECTOR) Fee Code(s): G0145, G0145 <CR>, G0123 The Pap test is a screening test with an inherent, but low, probability of error. The Pap test is primarily effective for the diagnosis and prevention of squamous cell carcinoma. Regular screening is critical for prevention. ThinPrep liquid-based slides, which meet the Hand Mixer criteria for automated screening, have been screened by the ThinPrep Imaging System (as of 10/25/06) along with an additional manual rescreening by a stitch bonding machine tender and, if indicated, by a pathologist. Lima Gonzalez RADAR AIR TRAFFIC CONTROLLER-[facility] PATHOLOGY/CYTOLOGY ORDER SYED Final Result COPATH from Last 3 Months or Most Recently Relevant to Health Maintenance Insurance [employer] Care Teams Grand Scribe Relationship Specialty Start Date End Date Orlando Ash MD [address] [place] [id number] PCP - General Family Medicine 06/09/18
--- OUTSIDE RECORDS SUMMARY | 2024-08-12 10:49 | XMS_ITS | Encounter Summary ---
Author Organization [facility] Address [address] [place] [address] Care Team Providers Care Box Blank Machine Operator Name Role Phone Orlando Ash MD Primary Care Provider [phone] Encounter Details Date Type Department Care Team (Late st Contact Info) Description 08/09/2024 Clinisync Result Encounter [facility] External Department Unsolicited Yuri Lam DO [address] [place], [facility]11 Social History Tobacco Use Types Packs/Day [...] Routine [facility] BCP [place] [address] [place] [phone] Yuri Lam DO [address] [place] [address] documented as of this encounter Procedures Procedure Name Priority Date/Time Associated Diagnosis Comments US OB CERVICAL LENGTH 08/09/2024 1:33 PM EDT documented in this encounter Results * US OB CERVICAL LENGTH (08/09/2024 1:33 PM EDT) Anatomical Region Laterality Modality Other 08/09/2024 1:33 PM EDT Narrative 08/09/2024 1:36 [place] [address] Ultrasound Report Signed Patient: HAWK KING MR#: [id number] : 2000 Acct:[id number] Age/Sex: 23 / F ADM Date: 08/09/24 Loc: [facility] 250-[address]: Yuri Lam D.O. Ordering Physician: Yuri Lam D.O. Date of Service: 08/09/24 Procedure(s): US OB cervical length Accession Number(s): [id number] cc: Yuri Lam D.O.; Physician,Non-Staff M.DTaylor [place] [address] Patient Name: HAWK KING MRN: [id number] date: 2000 Sex: F Assigned Patient Location: [facility] Current Patient Location: [facility] Accession/Order Number: [id number] Exam Date: 08/09/2024 13:32 Report Date: 08/09/2024 13:33 At the request of: YURI LAM DO Procedure: US OB cervical length Cervical length ultrasound. Reason for exam: 2 cm dilated in office. COMPARISON: None. TECHNIQUE: Transvaginal imaging of the cervix was obtained. FINDINGS: Cervical length measures 2.4 cm with fluid seen within the canal. No definite funneling is seen. position is cephalic at time of scanning. heart rate 167 bpm. US/US OB cervical length IMPRESSION: Shortening of the cervix to 2.4 cm with fluid seen within the cervical canal. No definite funneling is seen. Impression dictated by: Wojciech Farah Jr., D.O. 08/09/2024 1:33 PM Dictation Location[facility] Electronically authenticated by: [id number] Y Date: 08/09/2024 13:33 Dictated By: Wojciech Farah M.D. Signed By: 08/09/24 1336 DD/ 32 TD/TT: Route Sales Person: Procedure Note Radiology, Radiologist, - 08/09/2024 [place] [address] Ultrasound Report Signed Patient: HAWK KING CMR#: [id number] : 2000Acct:[id number] Age/Sex: 23 / FADM Date: 08/09/24 Loc: [facility] 250-[address]: Yuri Lam D.O. Ordering Physician: Yuri Lam D.O. Date of Service: 08/09/24 Procedure(s): US OB cervical length Accession Number(s): [id number] cc: Yuri Lam D.O.; Physician,Non-Staff Sindy The [place] [address] Patient Name: HAWK KING MRN: [id number] date: 2000 Sex: F Assigned Patient Location: [facility] Current Patient Location: [facility] Accession/Order Number: [id number] Exam Date: 08/09/2024 13:32 Report Date: 08/09/2024 13:33 At the request of: YURI LAM DO Procedure: US OB cervical length Cervical length ultrasound. Reason for exam: 2 cm dilated in office. COMPARISON: None. TECHNIQUE: Transvaginal imaging of the cervix was obtained. FINDINGS: Cervical length measures 2.4 cm with fluid seen within thecanal. No definite funneling is seen. position is cephalic at time of scanning. heart rate 167 bpm. US/US OB cervical length IMPRESSION: Shortening of the cervix to 2.4 cm with fluid seen within the cervical canal. No definite funneling is seen. Impression dictated by: Wojciech Farah Jr., D.O. 08/09/2024 1:33 PM Dictation Location: [facility] Electronically authenticated by: [id number] Y Date: 3:33 Dictated By: Wojciech Farah M.D. Signed By:08/09/24 1336 DD/ 1333 TD/TT: Route Sales Person: us Yuri Carole DO [facility] Final Result documented in this encounter Visit Diagnoses Not on filedocumented in this encounter Care Teams Box Blank Machine Operator Relationship Specialty Start Date End Date Orlando Ash MD [address] [place] [address] PCP - General Family Medicine 07/03/22 documented as of this encounter
--- OUTSIDE RECORDS SUMMARY | 2024-08-12 10:49 | XMS_ITS | Encounter Summary ---
Author Organization [facility] Address [id number] [address] [place] [address] Care Team Providers Care Accountant Clerk Name Role Phone Orlando Ash MD Primary Care Provider [phone] Encounter Details Date Type Department Care Team (Late st Contact Info) Description 01/19/2024 Telephone [facility] Obstetrics/Gynecology [address] [facility] [phone] [place], AQUACULTURE PROGRAM DIRECTOR-[facility] [address] [address] [place] [address] Social History Tobacco Use Types Packs/Day Years [...] on filedocumented in this encounter Care Teams Accountant Clerk Relationship Specialty Start Date End Date Orlando Ash MD [address] [place] [address] PCP - General Family Medicine 06/09/18 documented as of this encounter
--- OUTSIDE RECORDS SUMMARY | 2024-08-12 10:49 | XMS_ITS | Encounter Summary ---
Author Organization [facility] Address [address] [place] [address] Care Team Providers Care Food Sales Clerk Name Role Phone Orlando Ash MD Primary Care Provider [phone] Encounter Details Date Type Department Care Team (Late st Contact Info) Description 02/24/2024 Abstract [facility] [address] [place] [address] Sunshine Ye LPN Social History Tobacco [...] Description 08/17/2024 10:00 AM EDT Routine [facility] [address] [place] [address] Eusebio Lam [address] [place], [place] [address] documented as of this encounter Visit Diagnoses Not on filedocumented in this encounter Care Teams Food Sales Clerk Relationship Specialty Start Date End Date Orlando Ash MD [address] [place] [address] PCP - General Family Medicine 07/03/22 documented as of this encounter
--- OUTSIDE RECORDS SUMMARY | 2024-08-12 10:49 | XMS_ITS | Encounter Summary ---
Author Organization [facility] Address [address] [facility] [place] [address] Care Team Providers Care Constitutional Law Professor Name Role Phone Orlando sAh MD Primary Care Provider [phone] Encounter Details Date Type Department Care Team (Late Contact Info) Description 02/25/2024 Abstract [facility] [address] [place] [phone] Eusebio Lam DO [address] [place] [id number] Social History Tobacco Use Types Packs/Day Years [...] Description 08/17/2024 10:00 AM EDT Routine [facility] [address] [place] [address] Eusebio Lam DO [facility] [place], [place] [address] documented as of this encounter Visit Diagnoses Not on filedocumented in this encounter Care Teams Constitutional Law Professor Relationship Specialty Start Date End Date Orlando Ash MD [address] [place] [address] PCP - General Family Medicine 07/03/22 documented as of this encounter
--- OUTSIDE RECORDS SUMMARY | 2024-08-12 10:49 | XMS_ITS | Encounter Summary ---
Author Organization [facility] Address [address] [place] [address] Care Team Providers Care Home Energy Rater Name Role Phone Janee Del Valle MD Unavailable Orlando Ash MD Primary Care Provider [phone] Encounter Details Date Type Department Care Team (Late Contact Info) Description 09/03/2022 Abstract [facility] OB [address] [facility] [place] [address] Radha Avila PA [address] [place] [address] [address] [place], [place] [address] Social History Tobacco Use Types Packs/Day Years [...] Description 08/17/2024 10:00 AM EDT Routine [facility] OB [address] [facility] [place] [address] Eusebio Lam, DO [address] [facility] [address] [place], [place] [id number] documented as of this encounter Visit Diagnoses Not on filedocumented in this encounter Care Teams Home Energy Rater Relationship Specialty Start Date End Date Janee Del Valle MD [address] [place] [address] PCP - Sri Gallegos 03/11/22 Orlando Ash MD [address] [place], [place] [address] PCP - General Family Medicine 07/03/22 documented as of this encounter
--- OUTSIDE RECORDS SUMMARY | 2024-08-12 10:49 | XMS_ITS | Encounter Summary ---
Author Organization [facility] Address [address] [facility] [place] [address] Care Team Providers Care Commercial Door Installer Name Role Phone Orlando Ash MD Primary Care Provider [phone] Encounter Details Date Type Department Care Team (Late st Contact Info) Description 05/25/2024 Orders Only [facility] OB [address] [facility] [place] [address] Carol Winter LPN [address] [employer] [place] [address] Social History Tobacco Use Types Packs/Day Years [...] Description 08/17/2024 10:00 AM EDT Routine [facility] OB [address] [facility] [place] [address] Eusebio Lam DO [address] [facility] [address] [place], [facility]11 documented as of this encounter Procedures Procedure Name Priority Date/Time Associated Diagnosis Comments PAP SMEAR Routine 05/16/2024 12:00 AM EDT documented in this encounter Results * Pap Smear (05/16/2024 12:00 AM EDT) Swab Cervical swab / Unknown us Eusebio Carole DO LAB CYTOLOGY ORDERABLES Final Re sult EXTERNAL LAB documented in this encounter Visit Diagnoses Not on filedocumented in this encounter Care Teams Commercial Door Installer Relationship Specialty Start Date End Date Orlando Ash MD [address] [place] [address] PCP - General Family Medicine 07/03/22 documented as of this encounter
--- OUTSIDE RECORDS SUMMARY | 2024-08-12 10:49 | XMS_ITS | Encounter Summary ---
Author Organization [facility] Address [address] [place] [address] Care Team Providers Care Chief Investment Officer Name Role Phone Orlando Ash MD Primary Care Provider [phone] Encounter Details Date Type Department Care Team (Late st Contact Info) Description 12/29/2022 Clinisync Result Encounter [facility] External Department Unsolicited Yuri Lam, [facility] [address] Social History Tobacco Use Types Packs/Day Years [...] Routine [facility] BCP OB [address] [place] [address] Yuri Lam DO [facility] [place] [address] documented as of this encounter Procedures Procedure Name Priority Date/Time Associated Diagnosis Comments US OB CERVICAL LENGTH 12/29/2022 2:24 PM EST documented in this encounter Results * US OB CERVICAL LENGTH (12/29/2022 2:24 PM EST) Anatomical Region Laterality Modality Other 12/29/2022 2:24 PM EST Narrative 12/29/2022 2:24 PM EST [address] [address] Ultrasound Report Signed Patient: HAWK KING MR#: [id number] : 2000 Acct:[id number] Age/Sex: 22 / F ADM Date: Loc: [facility] 254-[address]: Yuri Lam D.O. Ordering Physician: Yuri Lam D.O. Date of Service: 12/29/22 Procedure(s): US OB cervical length Accession Number(s): [id number] cc: Yuri Lam D.O.; Physician,Non-Staff M.Sigrid [address] [address] Patient Name: HAWK KING MRN: [id number] date: 2000 Sex: F Assigned Patient Location: [facility] Current Patient Location: [facility] Accession/Order Number: [id number] Exam Date: 12/29/2022 13:06 Report Date: 12/29/2022 [...] Signed By: 12/29/22 1427 DD/ 1424 TD/TT: Excel Developer: Procedure Note Radiology, Radiologist, MD - 12/29/2022 [place] [address] Ultrasound Report Signed Patient: HAWK KING CMR#: [id number] : 2000Acct:[id number] Age/Sex: Date: Loc: [facility] 254-[address]: Yuri Lam D.O. Ordering Physician: Yuri Lam D.O. Date of Service: 12/29/22 Procedure(s): US OB cervical length Accession Number(s): [id number] cc: Yuri Lam D.O.; Physician,Non-Staff Sindy The [place] [id number] Patient Name: HAWK KING MRN: [id number] date: 2000 Sex: F Assigned Patient Location: [facility] Current Patient Location: [facility] Accession/Order Number: [id number] Exam Date: 12/29/2022 13:06 Report Date: 12/29/2022 [...] M.D. Signed By:12/29/22 1427 DD/ 1424 TD/TT: Excel Developer: us Yuri Lam DO [facility] Final Result documented in this encounter Visit Diagnoses Not on filedocumented in this encounter Care Teams Chief Investment Officer Relationship Specialty Start Date End Date Orlando Ash MD [address] [place] [address] PCP - General Family Medicine 07/03/22 documented as of this encounter
--- OUTSIDE RECORDS SUMMARY | 2024-08-12 10:49 | XMS_ITS | Encounter Summary ---
Author Organization [facility] Address [address] [facility] [place] [address] Care Team Providers Care Customer Service Associate Name Role Phone Orlando Ash MD Primary Care Provider [phone] Encounter Details Date Type Department Care Team (Late st Contact Info) Description 01/04/2023 Clinisync Result Encounter [facility] External Department Unsolicited Yuri Lam [place] [address] Social History Tobacco Use Types Packs/Day Years [...] Routine [facility] BCP OB [address] [place] [address] Yuri Lam DO [facility] [place] [address] documented as of this encounter Procedures Procedure Name Priority Date/Time Associated Diagnosis Comments US OB GROWTH 01/04/2023 3:14 PM EST documented in this encounter Results * US OB GROWTH (01/04/2023 3:14 PM EST) Anatomical Region Laterality Modality Other 01/04/2023 3:14 PM EST Narrative 01/04/2023 3:14 PM EST [address] [address] Ultrasound Report Signed Patient: HAWK KING MR#: [id number] : 2000 Acct:[id number] Age/Sex: 22 / F ADM Date: 01/04/23 Loc: US Attending Dr: Yuri Lam D.O. Ordering Physician: Yuri Lam D.O. Date of Service: 01/04/23 Procedure(s): US OB growth Accession Number(s): [id number] cc: Yuri Lam D.O.; Physician,Non-Staff M.Sigrid The [place] [address] Patient Name: HAWK KING MRN: [id number] date: 2000 Sex: F Assigned Patient Location: Current Patient Location: [facility] Accession/Order Number: [id number] Exam Date: 01/04/2023 12:57 Report Date: 01/04/2023 [...] Signed By: 01/04/23 1516 DD/ 13 TD/TT: Purchasing Director: Procedure Note Radiology, Radiologist, MD - 01/04/2023 [place] [address] Ultrasound Report Signed Patient: HAWK KING CMR#: [id number] : 2000Acct:[id number] Age/Sex: 22 / FADM Date: 01/04/23 Loc: US Attending Dr: Yuri Lam D.O. Ordering Physician: Yuri Lam D.O. Date of Service: 01/04/23 Procedure(s): US OB growth Accession Number(s): [id number] cc: Yuri Lam D.O.; Physician,Non-Staff Sindy The [place] [id number] Patient Name: HAWK KING MRN: [id number] date: 2000 Sex: F Assigned Patient Location: US Current Patient Location: [facility] Accession/Order Number: [id number] Exam Date: 01/04/2023 12:57 Report Date: 01/04/2023 [...] Mcwilliams M.D. Signed By:01/04/231515 DD/ 13 TD/TT: Purchasing Director: us Yuri Carole DO [facility] Final Result documented in this encounter Visit Diagnoses Not on filedocumented in this encounter Care Teams Customer Service Associate Relationship Specialty Start Date End Date Orlando Ash MD [address] [place] [address] PCP - General Family Medicine 07/03/22 documented as of this encounter
--- OUTSIDE RECORDS SUMMARY | 2024-08-12 10:49 | XMS_ITS | Encounter Summary ---
Author Organization [facility] Address [address] [place] [address] Care Team Providers Care Kennel Attendant Name Role Phone Orlando Ash MD Primary Care Provider [phone] Encounter Details Date Type Department Care Team (Late st Contact Info) Description 08/03/2024 Clinisync Result Encounter [facility] External Department Unsolicited Yuri Lam DO [address] [place], [facility]11 Social History Tobacco Use Types Packs/Day [...] Routine [facility] BCP OB [address] [place] [phone] Yuri Lam DO [address] [place] [address] documented as of this encounter Procedures Procedure Name Priority Date/Time Associated Diagnosis Comments US OB GROWTH 08/03/2024 8:32 AM EDT documented in this encounter Results * US OB GROWTH (08/03/2024 8:32 AM EDT) Anatomical Region Laterality Modality Other 08/03/2024 8:32 AM EDT Narrative 08/03/2024 8:35 [place] [address] Ultrasound Report Signed Patient: HAWK KING MR#: [id number] : 2000 Acct:[id number] Age/Sex: 23 / F ADM Date: 08/02/24 Loc: US Attending Dr: Yuri Lam D.O. Ordering Physician: Yuri Lam D.O. Date of Service: 08/02/24 Procedure(s): US OB growth Accession Number(s): [id number] cc: Yuri Lam D.O.; Physician,Non-Staff M.DTaylor The [place] [id number] Patient Name: HAWK KING MRN: [id number] date: 2000 Sex: F Assigned Patient Location: [facility] Current Patient Location: Accession/Order Number: [id number] Exam Date: 08/03/2024 08:23 Report Date: 08/03/2024 08:32 At the request of: YURI LAM DO Procedure: US OB BPP w non-stress CLINICAL INFORMATION: H/O LABOR O09.899 ULTRASOUND OB GROWTH COMPARISON: None There is a single live intrauterine gestation in cephalic presentation. There is cardiac and somatic activity. The heart rate lipxcjls879 beats per minute. The placenta is posterior. [...] Hunt M.D. 08/03/2024 8:32 AM Dictation Location: [place] [address] Electronically authenticated by: [id number] Y Date: 08/03/2024 08:32 Dictated By: Jing Hunt M.D. Signed By: 08/03/24 0835 DD/ 0832 TD/TT: [employer] Floorperson: Procedure Note Radiology, Radiologist, - 08/03/2024 [place] [address] Ultrasound Report Signed Patient: HAWK KING CMR#: [id number] : 2000Acct:[id number] Age/Sex: 23 / FADM Date: 08/02/24 Loc: US Attending Dr: Yuri Lam D.O. Ordering Physician: Yuri Lam D.O. Date of Service: 08/02/24 Procedure(s): US OB growth Accession Number(s): [id number] cc: Yuri Lam D.O.; Physician,Non-Staff Sindy The [place] [id number] Patient Name: HAWK KING MRN: [id number] date: 2000 Sex: F Assigned Patient Location: [facility] Current Patient Location: Accession/Order Number: [id number] Exam Date: 08/03/2024 08:23 Report Date: 08/03/2024 08:32 At the request of: YURI LAM DO Procedure: US OB BPP w non-stress CLINICAL INFORMATION: H/O LABOR O09.899 ULTRASOUND OB GROWTH COMPARISON: None There is a single live intrauterine gestation in cephalic presentation.There is cardiac and somatic activity. The heart rate [id number] per minute. The placenta is posterior. The [...] Hunt M.D. 08/03/2024 8:32 AM Dictation Location: [place] [address] Electronically authenticated by: [id number] Y Date: 508:32 Dictated By: Jing Hunt M.D. Signed By:08/03/2435 DD/ TD/TT: [employer] Floorperson: us Yuri Carole DO [facility] Final Result documented in this encounter Visit Diagnoses Not on filedocumented in this encounter Care Teams Kennel Attendant Relationship Specialty Start Date End Date Orlando Ash MD [address] [place] [address] PCP - General Family Medicine 07/03/22 documented as of this encounter
--- OUTSIDE RECORDS SUMMARY | 2024-08-12 10:49 | XMS_ITS | Encounter Summary ---
Author Organization [facility] tem Address [id number] [address] [place] [address] Care Team Providers Care Lube Worker Name Role Phone Orlando Ash MD Primary Care Provider [phone] Encounter Details Date Type Department Care Team (Late st Contact Info) Description 04/21/2024 Orders Only Maternal- Medicine at [facility] [address] [place] [address] Euesbio Lam R, DO [address] [facility] [place] [address] Social History Tobacco Use Types Packs/Day Years [...] documented as of this encounter Care Teams Lube Worker Relationship Specialty Start Date End Date Orlando Ash MD [address] [place] [address] PCP - General Family Medicine 06/09/18 documented as of this encounter
--- OUTSIDE RECORDS SUMMARY | 2024-08-12 10:49 | XMS_ITS | Encounter Summary ---
Author Organization [facility] Address [address] [facility] [place] [address] Care Team Providers Care Radiology Tech Name Role Phone Orlando Ash MD Primary Care Provider [phone] Encounter Details Date Type Department Care Team (Late Contact Info) Description 03/08/[address] [facility] [address] [place] [address] Eusebio Lam DO [address] [place] [address] Social History Tobacco Use Types Packs/Day Years [...] Description 08/17/2024 10:00 AM EDT Routine [facility] OB [address] [place] [address] Eusebio Lam DO [facility] [place], [place] [address] documented as of this encounter Visit Diagnoses Not on filedocumented in this encounter Care Teams Radiology Tech Relationship Specialty Start Date End Date Orlando Ash MD [address] [place] [address] PCP - General Family Medicine 07/03/22 documented as of this encounter
--- OUTSIDE RECORDS SUMMARY | 2024-08-12 10:49 | XMS_ITS | Encounter Summary ---
Author Organization [facility] Address [address] [place] [place] [address] Care Team Providers Care Traffic Routing Engineer Name Role Phone Orlando Ash MD Primary Care Provider [phone] Encounter Details Date Type Department Care Team (Late st Contact Info) Description 12/29/2022 Clinisync Result Encounter [facility] External Department Unsolicited Yuri Lam [facility] [place] [address] Social History Tobacco Use Types Packs/Day Years [...] EDT Routine [facility] BCP OB [address] [place] [address] Yuri Lam DO [facility] [place] [address] documented as of this encounter Procedures Procedure Name Priority Date/Time Associated Diagnosis Comments US OB PLACENTA 12/29/2022 2:24 PM EST documented in this encounter Results * US OB PLACENTA (12/29/2022 2:24 PM EST) Anatomical Region Laterality Modality Other 12/29/2022 2:24 PM EST Narrative 12/29/2022 2:24 PM EST [address] [address] Ultrasound Report Signed Patient: HAWK KING MR#: [id number] : 2000 Acct:[id number] Age/Sex: 22 / F ADM Date: Loc: [facility] 254-[address]: Yuri Lam D.O. Ordering Physician: Yuri Lam D.O. Date of Service: 12/29/22 Procedure(s): US OB placenta Accession Number(s): [id number] cc: Yuri Lam D.O.; Physician,Non-Staff [place] [address] Patient Name: HAWK KING MRN: [facility]:[id number] date: 2000 Sex: F Assigned Patient Location: [facility] Current Patient Location: [facility] Accession/Order Number: [id number] Exam Date: 12/29/2022 13:06 Report Date: 12/29/2022 [...] Signed By: 12/29/22 1427 DD/ 1424 TD/TT: Turbine Assembler: Procedure Note Radiology, Radiologist, MD - 12/29/2022 [place] [address] Ultrasound Report Signed Patient: HAWK KING CMR#: [id number] : 2000Acct:[id number] Age/Sex: 22 FADM Date: Loc: [facility] 254- Attending Dr: Yuri Lam D.O. Ordering Physician: Yuri Lam D.O. Date of Service: 12/29/22 Procedure(s): US OB placenta Accession Number(s): [id number] cc: Yuri Lam D.O.; Physician,Non-Staff [place] [address] Patient Name: HAWK KING MRN: [id number] date: 2000 Sex: F Assigned Patient Location: [facility] Current Patient Location: [facility] Accession/Order Number: [id number] Exam Date: 12/29/2022 13:06 Report Date: 12/29/2022 [...] M.D. Signed By:12/29/22 1427 DD/ 142 TD/TT: Turbine Assembler: us Yuri Carole DO [facility] Final Result documented in this encounter Visit Diagnoses Not on filedocumented in this encounter Care Teams Traffic Routing Engineer Relationship Specialty Start Date End Date Orlando Ash MD [address] [place] [address] PCP - General Family Medicine 07/03/22 documented as of this encounter
--- OUTSIDE RECORDS SUMMARY | 2024-08-12 10:49 | XMS_ITS | Encounter Summary ---
Author Organization [facility] Address [address] [facility] [place] [address] Care Team Providers Care Sheeter Machine Operator Name Role Phone Janee Del Valle MD Unavailable Orlando Ash MD Primary Care Provider [phone] Encounter Details Date Type Department Care Team (Late st Contact Info) Description 08/03/2022 Abstract [facility] BCP OB [address] [facility] [address] Eusebio Lam, [address] [place], [place] [id number] Social History Tobacco Use Types Packs/Day Years [...] Routine [facility] BCP OB [address] [place] [address] Eusebio Lam DO [facility] [place] [address] documented as of this encounter Visit Diagnoses Not on filedocumented in this encounter Care Teams Sheeter Machine Operator Relationship Specialty Start Date End Date Janee Del Valle MD [address] [place] [address] PCP - [employer] 03/11/22 Orlando Ash MD [address] [place] [address] PCP - General Family Medicine 07/03/22 documented as of this encounter
--- OUTSIDE RECORDS SUMMARY | 2024-08-12 10:49 | XMS_ITS | Encounter Summary ---
Author Organization [facility] Address [address] [facility] [place] [address] Care Team Providers Care Saw Feeder Name Role Phone Orlando Ash MD Primary Care Provider [phone] Encounter Details Date Type Department Care Team (Late st Contact Info) Description 08/09/2024 Bamboo flowsheet [facility] BCP OB [address] [facility] [address] Megan Diego, FACE AND FILL PACKER [address] [facility] [place] [address] Social History Tobacco Use Types Packs/Day [...] AM EDT Routine [facility] BCP OB [address] [place] [address] Eusebio Lam, DO [address] [facility] [address] [place], [facility] documented as of this encounter Visit Diagnoses Not on filedocumented in this encounter Care Teams Saw Feeder Relationship Specialty Start Date End Date Orlando Ash MD [address] [place] [address] PCP - General Family Medicine 07/03/22 documented as of this encounter
--- OUTSIDE RECORDS SUMMARY | 2024-08-12 10:49 | XMS_ITS | Encounter Summary ---
Author Organization [facility] Address [address] [facility] [place] [address] Care Team Providers Care Hot Mill Operator Name Role Phone Orlando Ash MD Primary Care Provider [phone] Encounter Details Date Type Department Care Team (Late st Contact Info) Description 05/30/2024 Results Follow-Up [facility] BCP OB [address] [facility] [place] [address] Carol Winter LPN [facility] [place] [address] Social History Tobacco Use Types Packs/Day Years [...] Description 08/17/2024 10:00 AM EDT Routine [facility] [address] [place] [address] Eusebio Lam, DO [address] [place] [address] documented as of this encounter Visit Diagnoses Not on filedocumented in this encounter Care Teams Hot Mill Operator Relationship Specialty Start Date End Date Orlando Ash MD [address] [place], [place] [id number] PCP - General Family Medicine 07/03/22 documented as of this encounter
--- OUTSIDE RECORDS SUMMARY | 2024-08-12 10:49 | XMS_ITS | Encounter Summary ---
Author Organization [facility] Address [address] [place] [address] Care Team Providers Care Greenhouse Staff Name Role Phone Orlando Ash MD Primary Care Provider [phone] Encounter Details Date Type Department Care Team (Late st Contact Info) Description 12/29/2022 Clinisync Result Encounter [facility] External Department Unsolicited Yuri Lam, DO [facility] [place] [address] Social History Tobacco Use Types Packs/Day Years [...] [facility] BCP OB [address] [place] [address] Yuri Lam DO [facility] [place] [address] documented as of this encounter Procedures Procedure Name Priority Date/Time Associated Diagnosis Comments US OB BPP W NON-STRESS 12/29/2022 2:24 PM EST documented in this encounter Results * US OB BPP W NON-STRESS (12/29/2022 2:24 PM EST) Anatomical Region Laterality Modality Other 12/29/2022 2:24 PM EST Narrative 12/29/2022 2:24 [place] [address] Ultrasound Report Signed Patient: HAWK KING MR#: [id number] : 2000 Acct:[id number] Age/Sex: 22 / F ADM Date: Loc: [facility] 254-[address]: Yuri Lam D.O. Ordering Physician: Yuri Lam D.O. Date of Service: 12/29/22 Procedure(s): US OB BPP w non-stress Accession Number(s): [id number] cc: Yuri Lam D.O.; Physician,Non-Staff M.Sigrid [place] [id number] Patient Name: HAWK KING MRN: [id number] date: 2000 Sex: F Assigned Patient Location: [facility] Current Patient Location: [facility] Accession/Order Number: [id number] Exam Date: 12/29/2022 13:06 Report Date: 12/29/2022 [...] Signed By: 12/29/22 1427 DD/ 23 TD/TT: Shipfitter Helper: Procedure Note Radiology, Radiologist, MD - 12/29/2022 [place] [address] Ultrasound Report Signed Patient: HAWK KING CMR#: [id number] : 2000Acct:[id number] Age/Sex: Date: Loc: [facility] 254-[address]: Yuri Lam D.O. Ordering Physician: Yuri Lam D.O. Date of Service: 12/29/22 Procedure(s): US OB BPP w non-stress Accession Number(s): [id number] cc: Yuri Lam D.O.; Physician,Non-Staff M.DTaylor The [place] [id number] Patient Name: HAWK KING MRN: [id number] date: 2000 Sex: F Assigned Patient Location: [facility] Current Patient Location: [facility] Accession/Order Number: [id number] Exam Date: 12/29/2022 13:06 Report Date: 12/29/2022 [...] M.D. Signed By:12/29/22 1427 DD/ 142 TD/TT: Shipfitter Helper: us Yuri Carole DO [facility] Final Result documented in this encounter Visit Diagnoses Not on filedocumented in this encounter Care Teams Greenhouse Staff Relationship Specialty Start Date End Date Orlando Ash MD [address] [place], [place] [id number] PCP - General Family Medicine 07/03/22 documented as of this encounter
--- OUTSIDE RECORDS SUMMARY | 2024-08-12 10:50 | XMS_ITS | Clinical Summary ---
Author Organization [facility] Address [address] [place] [address] Care Team Providers Care Risk And Insurance Consultant Name Role Phone Ann-Marie Ash MD Primary Care Provider [phone] Allergies No known active allergies Medications MV-Min-Fe Fum-FA-DHA ( 1 PO) Take 1 each by mouth Daily Active Active Problems Problem Noted Date Diagnosed Date Missed menses 07/02/2022 Estimated Date of Delivery Comme nts Yes 09/21/2024 Based on Ultraso und Encounters Date Type Department Care Team Description 08/09/2024 8:30 AM EDT Routine [facility] [address] [place] [id number] Megan Diego NP Third trimester ([facility]); 33 weeks gestation of ([facility]) 08/09/2024 Clinisync Result Encounter [facility] External Department Unsolicited Carole, Uyri, DO 08/09/2024 Clinisync Result Encounter [facility] External Department Unsolicited Carole, Yuri, DO 08/09/2024 Bamboo flowsheet [facility] [address] [place] [address] Megan Diego NP 08/03/2024 Clinisync Result Encounter [facility] External Department Unsolicited Carole, Yuri, DO 08/03/2024 Clinisync Result Encounter [facility] External Department Unsolicited Carole Yuri, DO 07/26/2024 11:10 AM EDT Routine [facility] [address] [facility] [place] [address] Yuri Lam, Third trimester ([facility]); 31 weeks gestation of ([facility]) 07/26/2024 Clinisync Result Encounter [facility] External Department Unsolicited Yuri Lam, 07/26/2024 Bamboo flowsheet [facility] [address] [facility] [place] [address] Yuri Lam, 07/13/2024 10:30 AM EDT Routine [facility] [address] [facility] [place] [address] Yuri Lam, Third trimester ([facility]); 30 weeks gestation of ([facility]); H/O delivery, currently ([facility]) 07/13/2024 Bamboo flowsheet [facility] OB [address] [facility] [place] [address] Yuri Lam, 06/28/2024 10:10 AM EDT Routine [facility] [address] [facility] [place] [address] Radha Avila PA Second trimester ([facility]); 27 weeks gestation of ([facility]) 06/28/2024 9:30 AM EDT Ancillary Procedure [facility] [address] [facility] [place] [address] H/O delivery, currently ([facility]) 06/13/2024 11:40 AM EDT Routine [facility] [address] [facility] [place] [address] Yuri Lam, Second trimester ([facility]); 25 weeks gestation of ([facility]); H/O delivery, currently ([facility]); Vapes nicotine containing substance 06/13/2024 Bamboo flowsheet [facility] [address] [facility] [place] [address] Yuri Lam DO 05/30/2024 Results Follow-Up [facility] [address] [place] [address] Carol Winter LPN 05/25/2024 Orders Only [facility] [address] [place] [address] Carol Winter LPN 05/25/2024 Abstract [facility] [address] [place] [address] Yuri Lam DO 05/18/[address] [facility] [address] [place] [address] Radha Squires MA 05/16/2024 9:40 AM EDT Routine [facility] [address] [place] [address] Yuri Lam DO 21 weeks gestation of ([facility]); Second trimester ([facility]); Diabetes mellitus screening; Well woman exam with routine gynecological exam; Exposure to STD; Vaginal discharge; Nausea 05/16/2024 Clinisync Result Encounter [facility] External Department Unsolicited Yuri Lam DO 05/16/2024 External Result Encounter [facility] External Department Unsolicited Yuri Lam DO 05/16/2024 Bamboo flowsheet [facility] [address] [place] [address] Yuri Lam DO from Last 3 Months Family History Medical [...] AM EDT Routine [facility] [address] [facility] [place] [address] CaroleYuri clancy, DO [address] [facility] [address] [place], [place] [id number] Procedures Procedure Name Priority Date/Time Associated Diagnosis Comments US OB BPP W NON-STRESS 08/09/2024 1:42 PM EDT US OB CERVICAL LENGTH 08/09/2024 1:33 PM EDT POCT URINALYSIS DIPSTICK Routine 08/09/2024 8:40 AM EDT Third trimester ([facility]) US OB BPP W NON-STRESS 08/03/2024 8:32 AM EDT US OB GROWTH 08/03/2024 8:32 AM EDT ALL CBC WITH AUTO DIFF Routine 12:13 PM EDT MLR HEMOGLOBIN A1C Routine 07/26/2024 12 :13 PM EDT POCT URINALYSIS DIPSTICK Routine 07/26/2024 11:35 AM EDT Third trimester ([facility]) POCT URINALYSIS DIPSTICK Routine 06/28/2024 10:19 AM EDT Second trimester ([facility]) US OB FOLLOW UP TRANSABDOMINAL APPROACH Routine 06/28/2024 10:08 AM EDT H/O delivery, currently ([facility]) US OB 14+ WEEKS ANATOMY SCAN 05/24/2024 5:38 PM EDT RECURRENT VAGINITIS (HTRX) Routine 05/16/2024 11:46 AM EDT POCT URINALYSIS DIPSTICK Routine 05/16/2024 9:58 AM EDT 21 weeks gestation of ([facility]) Second trimester ([facility]) IGP,APTIMA HPV,AGE GDLN Routine 05/17/19 9:57 AM EDT PAP SMEAR Routine 05/16/2024 12:00 AM EDT from Last 3 Months Results * US OB BPP W NON-STRESS (08/09/2024 1:42 PM EDT) Only the most recent of2 resultswithin the time period is included. Anatomical Region Laterality Modality Other 08/09/2024 1:42 PM EDT Narrative 08/09/2024 1:45 [place] [address] Ultrasound Report Signed Patient: HAWK KING MR#: [id number] : 2000 Acct:[id number] Age/Sex: 23 / F ADM Date: 08/09/24 Loc: US Attending Dr: Yuri Lam D.O. Ordering Physician: Yuri Lam D.O. Date of Service: 08/09/24 Procedure(s): US OB BPP w non-stress Accession Number(s): [id number] cc: Yuri Lam D.O.; Physician,Non-Staff M.Sigrid The [address] [address] Patient Name: HAWK KING MRN: [id number] date: 2000 Sex: F Assigned Patient Location: [facility] Current Patient Location: Accession/Order Number: [id number] Exam Date: 08/09/2024 13:42 Report Date: 08/09/2024 13:42 At the request of: YURI LAM DO Procedure: US OB BPP w non-stress Biophysical profile. Reason for exam: Large for dates. COMPARISON: BPP 08/02/2024. TECHNIQUE: Transabdominal imaging of the gravid uterus was obtained. FINDINGS: [employer] reports a BPP of 8 out of 8. JACKELYN is normal at 17.9 cm. heart rate 167 bpm. US/US OB BPP w non-stress Impression: BPP 8 out of 8. Impression dictated by: Wojciech Farah Jr., D.O. 08/09/2024 1:42 PM Dictation Location: [place] [address] Electronically authenticated by: [id number] Y Date: 08/09/2024 13:42 Dictated By: Wojciech Farah M.D. Signed By: 08/09/24 1345 DD/ 1342 TD/TT: Diamond Sizer: Procedure Note Radiology, Radiologist, MD - 08/09/2024 [place] [address] Ultrasound Report Signed Patient: HAWK KING CMR#: [id number] : 2000Acct:[id number] Age/Sex: 23 / FADM Date: 08/09/24 Loc: US Attending Dr: Yuri Lam D.O. Ordering Physician: Yuri Lam D.O. Date of Service: 08/09/24 Procedure(s): US OB BPP w non-stress Accession Number(s): [id number] cc: Yuri Lam D.O.; Physician,Non-Staff Sindy The [address] [address] Patient Name: HAWK KING MRN: [id number] date: 2000 Sex: F Assigned Patient Location: [facility] Current Patient Location: Accession/Order Number: [id number] Exam Date: 08/09/2024 13:42 Report Date: 08/09/2024 13:42 At the request of: YURI LAM DO Procedure: US OB BPP w non-stress Biophysical profile. Reason for exam: Large for dates. COMPARISON: BPP 08/02/2024. TECHNIQUE: Transabdominal imaging of the gravid uterus was obtained. FINDINGS: [employer] reports a BPP of 8 out of 8. JACKELYN is normal at 17.9cm. heart rate 167 bpm. US/US OB BPP w non-stress Impression: BPP 8 out of 8. Impression dictated by: Wojciech Farah Jr., D.O. 08/09/2024 1:42 PM Dictation Location: [place] [address] Electronically authenticated by: [id number] Y Date: 3:42 Dictated By: Wojciech Farah M.D. Signed By:08/09/24 1345 DD/ 1342 TD/TT: Diamond Sizer: us Yuri aLm DO [facility]AG[facility] Final Result * US OB CERVICAL LENGTH (08/09/2024 1:33 PM EDT) Anatomical Region Laterality Modality Other 08/09/2024 1:33 PM EDT Narrative 08/09/2024 1:36 [place] [address] Ultrasound Report Signed Patient: HAWK KING MR#: [id number] : 2000 Acct:[id number] Age/Sex: 23 / F ADM Date: 08/09/24 Loc: [facility] 250-[address]: Yuri Lam D.O. Ordering Physician: Yuri Lam D.O. Date of Service: 08/09/24 Procedure(s): US OB cervical length Accession Number(s): [id number] cc: Yuri Lam D.O.; Physician,Non-Staff Sindy The [address] [address] Patient Name: HAWK KING MRN: [id number] date: 2000 Sex: F Assigned Patient Location: [facility] Current Patient Location: [facility] Accession/Order Number: [id number] Exam Date: 08/09/2024 13:32 Report Date: 08/09/2024 [...] Jr., D.O. 08/09/2024 1:33 PM Dictation Location: [place] [address] Electronically authenticated by: [id number] Y Date: 08/09/2024 13:33 Dictated By: Wojciech Farah M.D. Signed By: 08/09/24 1336 DD/ 32 TD/TT: Diamond Sizer: Procedure Note Radiology, Radiologist, MD - 08/09/[address] [address] Ultrasound Report Signed Patient: HAWK KING CMR#: [id number] : 2000Acct:[id number] Age/Sex: 23 / FADM Date: 08/09/24 Loc: [facility] 250-[address]: Yuri Lam D.O. Ordering Physician: Yuri Lam D.O. Date of Service: 08/09/24 Procedure(s): US OB cervical length Accession Number(s): [id number] cc: Yuri Lam D.O.; Physician,Non-Staff Sindy [address] [address] Patient Name: HAWK KING MRN: [id number] date: 2000 Sex: F Assigned Patient Location: [facility] Current Patient Location: [facility] Accession/Order Number: [id number] Exam Date: 08/09/2024 13:32 Report Date: 08/09/2024 [...] Jr., D.O. 08/09/2024 1:33 PM Dictation Location: [place] [address] Electronically authenticated by: [id number] Y Date: 3:33 Dictated By: Wojciech Farah M.D. Signed By:08/09/24 1336 DD/ 1333 TD/TT: Diamond Sizer: us Yuri Lam DO [facility] Final Result * POCT urinalysis dipstick manually resulted (08/09/2024 [...] AM EDT Narrative 08/03/2024 8:35 [place] [address] Ultrasound Report Signed Patient: HAWK KING MR#: [id number] : 2000 Acct:[id number] Age/Sex: 23 / F ADM Date: 08/02/24 Loc: US Attending Dr: Yuri Lam D.O. Ordering Physician: Yuri Lam D.O. Date of Service: 08/02/24 Procedure(s): US OB growth Accession Number(s): [id number] cc: Yuri Lam D.O.; Physician,Non-Staff M.DTaylor The [place] [id number] Patient Name: HAWK KING MRN: [id number] date: 2000 Sex: F Assigned Patient Location: [facility] Current Patient Location: Accession/Order Number: [id number] Exam Date: 08/03/2024 08:23 Report Date: 08/03/2024 08:32 At the request of: YURI LAM DO Procedure: US OB BPP w non-stress CLINICAL INFORMATION: H/O LABOR O09.899 ULTRASOUND OB GROWTH COMPARISON: None There is a single live intrauterine gestation in cephalic presentation. There is cardiac and somatic activity. The heart rate [id number] beats per minute. The placenta is posterior. [...] Hunt M.D. 08/03/2024 8:32 AM Dictation Location: [place] [address] Electronically authenticated by: [id number] Y Date: 08/03/2024 08:32 Dictated By: Jing Hunt M.D. Signed By: 08/03/24 0835 DD/ 0832 TD/TT: Diamond Sizer: Procedure Note Radiology, Radiologist, - 08/03/2024 The [place] [id number] Ultrasound Report Signed Patient: HAWK KING CMR#: [id number] : 2000Acct:[id number] Age/Sex: 23 / FADM Date: 08/02/24 Loc: US Attending Dr: Yuri Lam D.O. Ordering Physician: Yuri Lam D.O. Date of Service: 08/02/24 Procedure(s): US OB growth Accession Number(s): [id number] cc: Yuri Lam D.O.; Physician,Non-Staff Sindy [place] [address] Patient Name: HAWK KING MRN: [id number] date: 2000 Sex: F Assigned Patient Location: [facility] Current Patient Location: Accession/Order Number: [id number] Exam Date: 08/03/2024 08:23 Report Date: 08/03/2024 08:32 At the request of: YURI LAM DO Procedure: US OB BPP w non-stress CLINICAL INFORMATION: H/O LABOR O09.899 ULTRASOUND OB GROWTH COMPARISON: None There is a single live intrauterine gestation in cephalic presentation.There is cardiac and somatic activity. The heart rate [id number] per minute. The placenta is posterior. The [...] Hunt M.D. 08/03/2024 8:32 AM Dictation Location: [place] [address] Electronically authenticated by: [id number] Y Date: 508:32 Dictated By: Jing Hunt M.D. Signed By:08/03/2435 DD/ TD/TT: Diamond Sizer: Yuri Carole DO [facility] Final Result * MLR HEMOGLOBIN A1C (07/26/2024 12:13 PM EDT) GLYCOHEMOGLOBIN A1C 4.8 4.5 - 6.2 % TB[facility] Comment: ADA RECOMMENDED LIMIT 4.0 - 6.0 ADA THERAPEUTIC TARGET < 7.0 ACTION SUGGESTED > 7.0 ESTIMATED AVERAGE GLUCOSE 91 mg/dL [facility] 07/26/2024 12:1 3 PM EDT 07/26/2024 12:39 PM EDT Narrative [facility] - 07/26/2024 1:18 PM EDT Yuri Carole DO [facility] * (ABNORMAL) ALL CBC WITH AUTO [...] Yuri Carole DO [facility] Final Result [facility] TB * US OB follow up transabdominal approach [...] II, MD, PHD at 30-Jun-2024 12:16:48 PM [facility] Procedure Note Ann-Marie Tamayo MD - [...] signed by ANN-MARIE TAMAYO II, MD, PHD 12:16:48 PM [facility] us Yuri Lam DO IMG OB US PROCEDURES Final Resul t * US OB 14+ weeks anatomy scan (05/24/2024 5:38 PM EDT) Anatomical Region Laterality Modality Body Ultrasound 05/24/2024 5:38 PM EDT Narrative 05/24/2024 5:38 PM EDT THIS EXAM WAS PERFORMED AT [facility] NAME: DUNG ONOFRE : 2000 SEX: F Accession Number: [id number] ORDERING PHYSICIAN: VELMA GARCIA REFERRING PHYSICIAN: YURI LAM Coding ----- --------- Procedures 09531: Ultrasound, uterus, real time with image documentation, and maternal evaluation plus detailed anatomic examination, transabdominal approach;single or first gestation 92691: Transvaginal Ultrasound (OB) Indication ----- --------- Screening for Anatomic Survey , Screening for cervical length, history of thyroid disease, History of gestational hypertension, History of prior with delivery, Abnormal finding on screening of mother - + CF SMA carrier, Smoking in - vapes, marijuana use in . Supervision of high risk - Hypoplastic NB History ----- --------- OB History 5. Para 2 [id number] Current ----- --------- Cell free DNA Low [...] 1 lb 10 oz EFW by Hadlock ([id number]) Head / Face / Neck Biometry: Cephalic index 0.72 3% Nicolaides Patient Admitting Clerk 2.5 mm CM 6.3 mm 69% Nicolaides [...] view. RVOT view. LVOT view. 3-vessel view. 2-zvfkta-nopagmx view. Situs. Aortic arch view. Bicaval view. [...] structural abnormalities. Recommendations ----- --------- Please see [facility] documentation from today. Subsequent follow [...] - 05/24/2024 THIS EXAM WAS PERFORMED AT [facility] NAME: DUNG ONOFRE : 2000 SEX: F Accession Number: [id number] ORDERING PHYSICIAN: VELMA GARCIA REFERRING PHYSICIAN: YURI LAM Coding ----- --------- Procedures 81212: Ultrasound, uterus, real time with imagedocumentation, and maternal evaluation plus detailed anatomic examination, transabdominalapproach;single or first gestation 08890: Transvaginal Ultrasound (OB) Indication ----- --------- Screening for Anatomic Survey , Screening for cervical length, history ofthyroid disease, History of gestational hypertension, History of prior with delivery, Abnormalfinding on screening of mother - + CF SMA carrier, Smoking in - vapes, marijuana use in .Supervision of high risk - Hypoplastic NB History ----- --------- OB History 5. Para 2 [id number] Current ----- --------- Cell free DNA Low [...] 1 lb 10 oz EFW by Hadlock ([id number]) Head / Face / Neck Biometry: Cephalic index 0.72 3% Nicolaides Patient Admitting Clerk 2.5 mm CM 6.3 mm 69% Nicolaides [...] 4-chamber view. RVOT view. LVOT view. 3-vessel view.4-nhdyaf-tmciqpn view. Situs. Aortic arch view. Bicaval view. [...] structural abnormalities. Recommendations ----- --------- Please see [facility] documentation from today. Subsequent follow up or other follow up as clinically determined byprimary OB provider unless otherwise specified by MFM. Results forwarded to ordering provider so they can follow up with thepatient as necessary. The copy-to physician of this order is YURI Shore The ordering physician of this order is VELMA De La O us Yuri Lam DO [facility] OB US PROCEDURES Final Resul t * (ABNORMAL) RECURRENT VAGINITIS (HTRX) (05/16/2024 11:46 AM EDT) [facility] ATOPOBIUM VAGINAE 19.357(A) 19.961 - 24.689 ppm 05/17/2024 9:14 AM EDT [facility] ATOPOBIUM VAGINAE Detected(A) 19.961 - 24.689 ppm 05/17/2024 9:14 AM EDT [facility] BVAB 2,3 (BACTERIAL VAGINOSIS ASSOCIATED BACTERIA 2, 3); MOBILUNCUS SPP 16.919(A) 19.961 - 24.689 ppm 05/17/2024 9:14 AM EDT [facility] BVAB 2,3 (BACTERIAL VAGINOSIS ASSOCIATED BACTERIA 2, 3); MOBILUNCUS SPP Detected(A) 19.961 - 24.689 ppm 05/17/2024 9:14 AM EDT [facility] ALYSSA ALBICANS, PARAPSILOSIS, TROPICALIS 0.000 19.961 - 30.770 ppm 05/17/2024 9:14 AM EDT [facility] ALYSSA ALBICANS, PARAPSILOSIS, TROPICALIS Not Detected 19.961 - 30.770 ppm 05/17/2024 9:14 AM EDT [facility] ALYSSA GLABRATA 0.000 23.000 - 32.138 ppm 05/17/2024 9:14 AM EDT [facility] ALYSSA GLABRATA Not Detected 23.000 - 32.138 ppm 05/17/2024 9:14 AM EDT [facility] ALYSSA KRUSEI 0.000 23.000 - 32.271 ppm 05/17/2024 9:14 AM EDT [facility] ALYSAS KRUSEI Not Detected 23.000 - 32.271 ppm 05/17/2024 9:14 AM EDT [facility] CHLAMYDIA TRACHOMATIS 0.000 23.000 - 31.467 ppm 05/17/2024 9:14 AM EDT [facility] CHLAMYDIA TRACHOMATIS Not Detected 23.000 - 31.467 ppm 05/17/2024 9:14 AM EDT [facility] GARDNERELLA VAGINALIS 24.591(A) 19.961 - 24.689 ppm 05/17/2024 9:14 AM EDT [facility] GARDNERELLA VAGINALIS Detected(A) 19.961 - 24.689 ppm 05/17/2024 9:14 AM EDT [facility] MEGASPHAERA (TYPES 1, 2) 0.000 19.961 - 24.689 ppm 05/17/2024 9:14 AM EDT [facility] MEGASPHAERA (TYPES 1, 2) Not Detected 19.961 - 24.689 ppm 05/17/2024 9:14 AM EDT [facility] NEISSERIA GONORRHOEAE 0.000 23.000 - 32.117 ppm 05/17/2024 9:14 AM EDT [facility] NEISSERIA GONORRHOEAE Not Detected 23.000 - 32.117 ppm 05/17/2024 9:14 AM EDT [facility] TRICHOMONAS VAGINALIS 0.000 23.000 - 32.119 ppm 05/17/2024 9:14 AM EDT [facility] TRICHOMONAS VAGINALIS Not Detected 23.000 - 32.119 ppm 05/17/2024 9:14 AM EDT [facility] MYCOPLASMA GENITALIUM 22.396(A) 19.961 - 24.689 ppm 05/17/2024 9:14 AM EDT [facility] MYCOPLASMA GENITALIUM Detected(A) 19.961 - 24.689 ppm 05/17/2024 9:14 AM EDT [facility] ERMB, C; MEFA 19.876(A) 23.000 - 27.611 ppm 05/17/2024 9:14 AM EDT [facility] ERMB, C; MEFA Detected(A) 23.000 - 27.611 ppm 05/17/2024 9:14 AM EDT [facility] TET B, TET M 20.657(A) 23.000 - 27.778 ppm 05/17/2024 9:14 AM EDT [facility] TET B, TET M Detected(A) 23.000 - 27.778 ppm 05/17/2024 9:14 AM EDT [facility] Tissue 05/16/2024 11:4 6 AM EDT 05/17/2024 4:10 AM EDT us Yuri Lam DO LAB BLOOD ORDERABLES Final Resul t [facility] [address] [place] [address] * IGP,APTIMA HPV,AGE GDLN (05/16/2024 9:57 AM EDT) AGE GDLN ACOG TESTING Note . TB Comment: TESTS RESULT FLAG UNITS REF RANGE LAB Clinician Provided Cytology Information Source.............Cervix Other.............. No. of containers..01 ThinPrep Vial Age Kim TINAJERO Vicky... FLAG LEGEND: L-Low Normal,H-High Normal,LL-Alert Low,HH-Alert High <-Panic Low,>-Panic High,A-Abnormal,AA-Critical Abnormal Performed at: 01 =G [facility] [address] [facility] [address] Katie Lopez MD, IGP, RFX APTIMA HPV ASCU Note . [facility] Comment: TESTS RESULT FLAG UNITS REF RANGE LAB DIAGNOSIS: 02 NEGATIVE FOR INTRAEPITHELIAL LESION OR MALIGNANCY. Specimen adequacy: 02 Satisfactory for evaluation. Endocervical and/or squamous metaplastic cells (endocervical component) are present. Performed by: Agustin Cruz Outside Sales Executive (ASC) . 02 Note: Note 03 The Pap [...] High,A-Abnormal,AA-Critical Abnormal Performed at: 02 [facility] [address] [place] [address] Fer Mehta MD, [address] [facility] [address] [address] Katie Lopez MD, Performed at: =G - [facility] [address] [id number] Associate Product Manager: Katie Lopez MD, Phone: [phone] Performed at: [facility] [address] [place], [place] [id number] Associate Product Manager: Fer Mehta MD, Phone: [phone] 05/16/2024 9:57 AM EDT 05/16/2024 2:50 PM EDT Narrative [facility] - 05/19/2024 11:20 AM EDT [facility] CERVIX us Yuri Carole DO LAB BLOOD ORDERABLES Final Resul t [facility] TB * Pap Smear (05/16/2024 12:00 AM EDT) Swab Cervical swab / Unknown Yuri Carole DO LAB CYTOLOGY ORDERABLES Final Re sult EXTERNAL LAB from Last 3 Months Insurance [place]ICAID [place] Care Teams Risk And Insurance Consultant Relationship Specialty Start Date End Date Ann-Marie Ash MD [address] [place] [phone] PCP - General Family Medicine 07/03/22
--- OUTSIDE RECORDS SUMMARY | 2024-08-12 10:50 | XMS_ITS | Encounter Summary ---
Author Organization [facility] Address [address] [place] [address] Care Team Providers Care Supercharger Repair Supervisor Name Role Phone Orlando Ash MD Primary Care Provider [phone] Encounter Details Date Type Department Care Team (Late Contact Info) Description 08/03/2024 Clinisync Result Encounter [facility] External Department Unsolicited Yuri Lam DO [address] [place], [facility] Social History Tobacco Use Types Packs/Day Years [...] Routine [facility] [place] [address] [place] [id number] Yuri Lam DO [address] [place] [address] documented as of this encounter Procedures Procedure Name Priority Date/Time Associated Diagnosis Comments US OB BPP W NON-STRESS 08/03/2024 8:32 AM EDT documented in this encounter Results * US OB BPP W NON-STRESS (08/03/2024 8:32 AM EDT) Anatomical Region Laterality Modality Other 08/03/2024 8:32 AM EDT Narrative 08/03/2024 8:35 [place] [address] Ultrasound Report Signed Patient: HAWK KING MR#: [id number] : 2000 Acct:[id number] Age/Sex: 23 / F ADM Date: 08/02/24 Loc: US Attending Dr: Yuri Lam D.O. Ordering Physician: Yuri Lam D.O. Date of Service: 08/02/24 Procedure(s): US OB BPP w non-stress Accession Number(s): [id number] cc: Yuri Lam D.O.; Physician,Non-Staff M.DTaylor [facility] [place] [address] Patient Name: HAWK KING MRN: [id number] date: 2000 Sex: F Assigned Patient Location: [facility] Current Patient Location: Accession/Order Number: [id number] Exam Date: 08/03/2024 08:23 Report Date: 08/03/2024 08:32 At the request of: YURI LAM DO Procedure: US OB BPP w non-stress CLINICAL INFORMATION: H/O LABOR O09.899 ULTRASOUND OB GROWTH COMPARISON: None There is a single live intrauterine gestation in cephalic presentation. There is cardiac and somatic activity. The heart rate [id number] beats per minute. The placenta is posterior. [...] Hunt M.D. 08/03/2024 8:32 AM Dictation Location: [place] [address] Electronically authenticated by: [id number] Y Date: 08/03/2024 08:32 Dictated By: Jing Hunt M.D. Signed By: 08/03/24 0835 DD/ 0832 TD/TT: Sorter Operator: Procedure Note Radiology, Radiologist, - 08/03/2024 [place] [address] Ultrasound Report Signed Patient: HAWK KING [facility]#: [id number] : 2000Acct:[id number] Age/Sex: 23 / FADM Date: 08/02/24 Loc: US Attending Dr: Yuri Lam D.O. Ordering Physician: Yuri Lam D.O. Date of Service: 08/02/24 Procedure(s): US OB BPP w non-stress Accession Number(s): [id number] cc: Yuri Lam D.O.; Physician,Non-Staff Sindy [facility] [place] [id number] Patient Name: HAWK KING MRN: [id number] date: 2000 Sex: F Assigned Patient Location: [facility] Current Patient Location: Accession/Order Number: [id number] Exam Date: 08/03/2024 08:23 Report Date: 08/03/2024 08:32 At the request of: YURI LAM DO Procedure: US OB BPP w non-stress CLINICAL INFORMATION: H/O LABOR O09.899 ULTRASOUND OB GROWTH COMPARISON: None There is a single live intrauterine gestation in cephalic presentation.There is cardiac and somatic activity. The heart rate [id number] per minute. The placenta is posterior. The [...] Hunt M.D. 08/03/2024 8:32 AM Dictation Location: [place] [address] Electronically authenticated by: [id number] Y Date: 508:32 Dictated By: Jing Hunt M.D. Signed By:08/03/2435 DD/ 1 TD/TT: Sorter Operator: us Yuri Carole DO [facility] Final Result documented in this encounter Visit Diagnoses Not on filedocumented in this encounter Care Teams Supercharger Repair Supervisor Relationship Specialty Start Date End Date Orlando Ash MD [address] [place] [address] PCP - General Family Medicine 07/03/22 documented as of this encounter
--- OUTSIDE RECORDS SUMMARY | 2024-08-12 10:50 | XMS_ITS | CCD ---
Author Organization [facility] Care Team Providers Care Clinical Administrator Name Role Phone ANN-MARIE ASH Primary Care Unavailable KARIS MARI Attending Unavailable ASH, ANN-MARIE Dc Primary Care Unavailable KOSTA LOZANO Attending Unavailable ASH, ANN-MARIE Dc Primary Care Unavailable ANN-MARIE ENGLE Attending Unavailable ASH, ANN-MARIE Dc Primary Care Unavailable VARUN BARTHOLOMEW Attending Unavailable Mihir, Ann-Marie Dc Primary Care Provider TRUDY VILLEGAS Referring Unavailable MIHIR, ANN-MARIE Dc Primary Care Unavailable ASH, ANN-MARIE Dc Primary Care Unavailable ALEXANDRIA SIDDIQUI Attending Unavailable ASH, ANN-MARIE A Primary Care Unavailable VICTORINO SULLIVAN Attending Unavailable Ahs, Ann-Marie Vanda Primary Care Provider CAROLE ., DR WELCH Consulting Unavailable CAROLE [...] Unavailable CAROLE ., DR WELCH Admitting Unavailable WESLEY CHAPEL, DR CHEMA Argueta Consulting Unavailable MISC, DR [...] AVILA Attending Unavailable EUSEBIO LAM Attending Unavailable CAROLE, EUSEBIO Attending Unavailable RADHA DIEGO Attending Unavailable Allergies Allergy Classification Reported Allergen(s) Allergy Type Date of Onset Reaction(s) Facility (1 source) No Known Medication Allergies; Translations: [No Known Medication Allergies] Propensity to adverse reactions to drug (disorder) [facility] Repository Medications Current Medications Medication Drug [...] [31 weeks gestation of ] 07-26-2024 Episodic Residual codes; unclassified (2 sources) Gestation period, 33 weeks; Translations: [33 weeks gestation of ] 08-09-2024 Episodic Substance-related disorders (2 sources) Nicotine dependence, [...] Name Value Interpretation Reference Range Facility US OB CERVICAL LENGTHon 07-0 [place] [address] Ultrasound Report Signed Patient: HAWK KING MR#: [id number] : 2000 Acct:[id number] Age/Sex: 23 / F ADM Date: 08/09/24 Loc: [facility] 250-[address]: Eusebio Lam D.O. Ordering Physician: Eusebio Lam D.O. Date of Service: 08/09/24 Procedure(s): US OB cervical length Accession Number(s): [id number] cc: Eusebio Lam D.O.; Physician,Non-Staff M.Sigrid [place] [id number] Patient Name: HAWK KING MRN: [id number] date: 2000 Sex: F Assigned Patient Location: [facility] Current Patient Location: [facility] Accession/Order Number: [id number] Exam Date: 08/09/2024 13:32 Report Date: 08/09/2024 13:33 At the request of: EUSEBIO LAM DO Procedure: US OB cervical length [...] Jr., D.O. 08/09/2024 1:33 PM Dictation Location: [place] [address] Electronically authenticated by: [id number] Y Date: 08/09/2024 13:33 Dictated By: Wojciech Farah M.D. Signed By: 08/09/24 1336 DD/ 32 TD/TT: Clinical Resource Manager: [facility] Radiology, Radiologist, MD - 08/09/2024 [place] [address] Ultrasound Report Signed Patient: HAWK KING MR#: [id number] : 2000 Acct:[id number] Age/Sex: 23 / F ADM Date: 08/09/24 Loc: [facility] 250-[address]: Eusebio Lam D.O. Ordering Physician: Eusebio Lam D.O. Date of Service: 08/09/24 Procedure(s): US OB cervical length Accession Number(s): [id number] cc: Eusebio Lam D.O.; Physician,Non-Staff Sindy [facility] [place] [id number] Patient Name: HAWK KING MRN: [facility]:[id number] date: 2000 Sex: F Assigned Patient Location: [facility] Current Patient Location: [facility] Accession/Order Number: [id number] Exam Date: 08/09/2024 13:32 Report Date: 08/09/2024 13:33 At the request of: EUSEBIO LAM DO Procedure: US OB cervical length [...] Jr., D.O. 08/09/2024 1:33 PM Dictation Location: [facility] Electronically authenticated by: [id number] Y Date: 08/09/2024 13:33 Dictated By: Wojciech Farah M.D. Signed By: 08/09/24 133 DD/ 133 TD/TT: Clinical Resource Manager: [facility] Radiology Study observation (narrative) [facility] US OB CERVICAL LENGTHOrdered By: Radiologist Radiology on 08-09-2024 [facility] Work Phone: US OB BPP W NON-STRESS on 08-09-2024 [place] [address] Ultrasound Report Signed Patient: HAWK KING MR#: [id number] : 2000 Acct:[id number] Age/Sex: 23 / F ADM Date: 08/09/24 Loc: US Attending Dr: Eusebio Lam D.O. Ordering Physician: Eusebio Lam D.O. Date of Service: 08/09/24 Procedure(s): US OB BPP w non-stress Accession Number(s): [id number] cc: Eusebio Lam D.O.; Physician,Non-Staff Sindy [place] [address] Patient Name: HAWK KING MRN: [id number] date: 2000 Sex: F Assigned Patient Location: [facility] Current Patient Location: Accession/Order Number: [id number] Exam Date: 08/09/2024 13:42 Report Date: 08/09/2024 13:42 At the request of: EUSEBIO LAM DO Procedure: US OB BPP w non-stress Biophysical profile. Reason for exam: Large for dates. COMPARISON: BPP 08/02/2024. TECHNIQUE: Transabdominal imaging of the gravid uterus was obtained. FINDINGS: [place] Manager reports a BPP of 8 out of 8. DALTON is normal at 17.9 cm. heart rate 167 bpm. US/US OB BPP w non-stress Impression: BPP 8 out of 8. Impression dictated by: Wojciech Farah Jr., D.O. 08/09/2024 1:42 PM Dictation Location: [place] [address] Electronically authenticated by: [id number] Y Date: 08/09/2024 13:42 Dictated By: Wojciech Farah M.D. Signed By: 08/09/24 1345 DD/ 1342 TD/TT: Clinical Resource Manager: [facility] Radiology, Radiologist, MD - 08/09/2024 [place] [address] Ultrasound Report Signed Patient: HAWK KING MR#: [id number] : 2000 Acct:[id number] Age/Sex: 23 / F ADM Date: 08/09/24 Loc: US Attending Dr: Eusebio Lam D.O. Ordering Physician: Eusebio Lam D.O. Date of Service: 08/09/24 Procedure(s): US OB BPP w non-stress Accession Number(s): [id number] cc: Eusebio Lam D.O.; Physician,Non-Staff Sindy [place] [address] Patient Name: HAWK KING MRN: [facility]:[id number] date: 2000 Sex: F Assigned Patient Location: [facility] Current Patient Location: Accession/Order Number: [id number] Exam Date: 08/09/2024 13:42 Report Date: 08/09/2024 13:42 At the request of: EUSEBIO LAM DO Procedure: US OB BPP w non-stress Biophysical profile. Reason for exam: Large for dates. COMPARISON: BPP 08/02/2024. TECHNIQUE: Transabdominal imaging of the gravid uterus was obtained. FINDINGS: [place] Manager reports a BPP of 8 out of 8. [place] is normal at 17.9 cm. heart rate 167 bpm. US/US OB BPP w non-stress Impression: BPP 8 out of 8. Impression dictated by: Wojciech Farah Jr. DToya 08/09/2024 1:42 PM Dictation Location: [facility] Electronically authenticated by: [id number] Y Date: 08/09/2024 13:42 Dictated By: Wojciech Farah M.D. Signed By: 08/09/24 1345 DD/ 1342 TD/TT: Clinical Resource Manager: [facility] Radiology Study observation (narrative) [facility] US OB BPP W NON-STRESS Ordered By: Radiologist Radiology on 08-09-2024 [facility] Work Phone: Urinalysis macro (dipstick) panel (U)on 08-09-2024 Bilirubin, UA Negative Negative - 4(70) +++ mg/dL [facility] Blood, UA Negative Negative - 50 Jian/mcL [facility] Clarity, UA Clear [facility] Color, UA Yellow [facility] Glucose, UA Negative Negative - 2000(110) ++++ mg/dL [facility] Interpretation and review of laboratory results Normal [facility] Ketones, UA Negative Negative - 160(16) ++++ mg/dL [facility] Leukocytes, UA Negative Negative - 500+++ Heriberto/mcL [facility] Nitrite, UA Negative Negative - Positive [facility] pH, UA 7 5 - 9 [facility] Protein, UA Negative Negative - 2000(20) ++++ mg/dL [facility] Spec Grav, UA 1.015 1 - 1.03 [facility] Urobilinogen, UA 0.2 0.2 - 12 mg/dL [facility] No Panel InformationOrdered By: Radiologist Radiology on 08-03-2024 [facility] Work Phone: No Panel Informationon 08-03 Radiology Study observation (narrative) [facility] US OB BPP W NON-STRESS on 08-03-2024 [place] [address] Ultrasound Report Signed Patient: HAWK KING MR#: [id number] : 2000 Acct:[id number] Age/Sex: 23 / F ADM Date: 08/02/24 Loc: US Attending Dr: Eusebio Lam D.O. Ordering Physician: Eusebio Lam D.O. Date of Service: 08/02/24 Procedure(s): US OB BPP w non-stress Accession Number(s): [id number] cc: Eusebio Lam D.O.; Physician,Non-Staff M.DTaylor [place] [address] Patient Name: HAWK KING MRN: [id number]:[id number] date: 2000 Sex: F Assigned Patient Location: [facility] Current Patient Location: Accession/Order Number: [id number] Exam Date: 08/03/2024 08:23 Report Date: 08/03/2024 08:32 At the request of: EUSEBIO LMA DO Procedure: US OB BPP w non-stress CLINICAL INFORMATION: H/O LABOR O09.899 ULTRASOUND OB GROWTH COMPARISON: None There is a single live intrauterine gestation in cephalic presentation. There is cardiac and somatic activity. The heart rate ryndbpax629 beats per minute. The placenta is posterior. [...] Hunt M.D. 08/03/2024 8:32 AM Dictation Location: [place] [address] Electronically authenticated by: [id number] Y Date: 08/03/2024 08:32 Dictated By: Jing Hunt M.D. Signed By: 08/03/24 0835 DD/ 0832 TD/TT: Clinical Resource Manager: [facility] Radiology, Radiologist, MD - 08/03/2024 [place] [address] Ultrasound Report Signed Patient: HAWK KING MR#: [id number] : 2000 Acct:[id number] Age/Sex: 23 / F ADM Date: 08/02/24 Loc: US Attending Dr: Eusebio Lam D.O. Ordering Physician: Eusebio Lam D.O. Date of Service: 08/02/24 Procedure(s): US OB BPP w non-stress Accession Number(s): [id number] cc: Eusebio Lam D.O.; Physician,Non-Staff MLeopoldo [place] [id number] Patient Name: HAWK KING MRN: [id number]:[id number] date: 2000 Sex: F Assigned Patient Location: [facility] Current Patient Location: Accession/Order Number: [id number] Exam Date: 08/03/2024 08:23 Report Date: 08/03/2024 08:32 At the request of: EUSEBIO LAM DO Procedure: US OB BPP w non-stress CLINICAL INFORMATION: H/O LABOR O09.899 ULTRASOUND OB GROWTH COMPARISON: None There is a single live intrauterine gestation in cephalic presentation. There is cardiac and somatic activity. The heart rate rmutfmeb113 beats per minute. The placenta is posterior. [...] Hunt M.D. 08/03/2024 8:32 AM Dictation Location: [place] [address] Electronically authenticated by: [id number] Y Date: 08/03/2024 08:32 Dictated By: Jing Hunt M.D. Signed By: 08/03/2435 DD/ 1 TD/TT: Clinical Resource Manager: GARCIA Josue OB GROWTHon 08-03-2024 [place] [address] Ultrasound Report Signed Patient: HAWK KING MR#: [id number] : 2000 Acct:[id number] Age/Sex: 23 / F ADM Date: 08/02/24 Loc: US Attending Dr: Eusebio Lam D.O. Ordering Physician: Eusebio Lam D.O. Date of Service: 08/02/24 Procedure(s): US OB growth Accession Number(s): [id number] cc: Eusebio Lam D.O.; Physician,Non-Staff [place] [address] Patient Name: HAWK KING MRN: [id number] date: 2000 Sex: F Assigned Patient Location: [facility] Current Patient Location: Accession/Order Number: [id number] Exam Date: 08/03/2024 08:23 Report Date: 08/03/2024 08:32 At the request of: EUSEBIO LAM DO Procedure: US OB BPP w non-stress CLINICAL INFORMATION: H/O LABOR O09.899 ULTRASOUND OB GROWTH COMPARISON: None There is a single live intrauterine gestation in cephalic presentation. There is cardiac and somatic activity. The heart rate hoeaefnn179 beats per minute. The placenta is posterior. [...] Hunt M.D. 08/03/2024 8:32 AM Dictation Location: [place] [address] Electronically authenticated by: [id number] Y Date: 08/03/2024 08:32 Dictated By: Jing Hunt M.D. Signed By: 08/03/24 0835 DD/ 0832 TD/TT: Clinical Resource Manager: [facility] Radiology, Radiologist, - 08/03/2024 [place] [address] Ultrasound Report Signed Patient: HAWK KING MR#: [id number] : 2000 Acct:[id number] Age/Sex: 23 / F ADM Date: 08/02/24 Loc: US Attending Dr: Eusebio Lam D.O. Ordering Physician: Eusebio Lam D.O. Date of Service: 08/02/24 Procedure(s): US OB growth Accession Number(s): [id number] cc: Eusebio Lam D.O.; Physician,Non-Staff Sindy [place] [phone] Patient Name: HAWK KING MRN: [facility]:[id number] date: 2000 Sex: F Assigned Patient Location: [facility] Current Patient Location: Accession/Order Number: [id number] Exam Date: 08/03/2024 08:23 Report Date: 08/03/2024 08:32 At the request of: EUSEBIO LAM DO Procedure: US OB BPP w non-stress CLINICAL INFORMATION: H/O LABOR O09.899 ULTRASOUND OB GROWTH COMPARISON: None There is a single live intrauterine gestation in cephalic presentation. There is cardiac and somatic activity. The heart rate uzptoryf418 beats per minute. The placenta is posterior. [...] Hunt M.D. 08/03/2024 8:32 AM Dictation Location: [place] [address] Electronically authenticated by: [id number] Y Date: 08/03/2024 08:32 Dictated By: Jing Hunt M.D. Signed By: 08/03/24 0835 DD/ 0832 TD/TT: Clinical Resource Manager: [facility] MLR HEMOGLOBIN A1Con 025 Glucose [Mass/Vol] 91 mg/dL [facility] HbA1c (Bld) [Mass fraction] 4.8 % 4.5 - 6.2 % [facility] Comment on above: ADA RECOMMENDED LIMI T 4.0 - 6.0 ADA THERAPEUTIC TARGET < 7.0 ACTION SUGGESTED > 7.0 [facility] Urinalysis macro (dipstick) panel (U)on 07-26-2024 Bilirubin, UA Negative Negative - 4(70) +++ mg/dL [facility] Blood, UA Negative Negative - 50 Jian/mcL [facility] Clarity, UA Clear [facility] Color, UA Yellow [facility] Glucose, UA Negative Negative - 2000(110) ++++ mg/dL [facility] Interpretation and review of laboratory results Abnormal [facility] Ketones, UA Negative Negative - 160(16) ++++ mg/dL [facility] Leukocytes, UA Positive Negative - 500+++ Heriberto/mcL [facility] Comment on above: small Nitrite, UA Negative Negative - Positive [facility] pH, UA 1 5 - 9 [facility] Protein, UA Positive Negative - 2000(20) ++++ mg/dL [facility] Comment on above: 30mg/dL Spec Grav, UA 1.02 1 - 1.03 [facility] Urobilinogen, UA 2.0 0.2 - 12 mg/dL [facility] US OB FOLLOW UP TRANSABDOMIN AL [...] II, MD, PHD at 30-Jun-2024 12:16:48 PM [facility] Normal Not Available Comment on above: Order Comment: US OB SCAN FOR GROWTH Estimated Date of Delivery: 09/21/24 Gestational Age as of 06/13/2024: 25w5d Urinalysis macro (dipstick) panel (U)on 06-28-2024 Bilirubin, UA Negative Negative - 4(70) +++ mg/dL [facility] Blood, UA Negative Negative - 50 Jian/mcL [facility] Clarity, UA Clear [facility] Color, UA Yellow [facility] Glucose, UA Negative Negative - 2000(110) ++++ mg/dL [facility] Interpretation and review of laboratory results Normal [facility] Ketones, UA Negative Negative - 160(16) ++++ mg/dL [facility] Leukocytes, UA Negative Negative - 500+++ Heriberto/mcL [facility] Nitrite, UA Negative Negative - Positive [facility] pH, UA 7 5 - 9 [facility] Protein, UA Negative Negative - 2000(20) ++++ mg/dL [facility] Spec Grav, UA 1.02 1 - 1.03 [facility] Urobilinogen, UA 0.2 0.2 - 12 mg/dL [facility] IGP,APTIMA HPV,AGE GDLNon AGE GDLN ACOG TESTING Note . [facility] Comment on above: TESTS RESULT FLAG UN ITS REF RANGE LAB Clinician Provided Cytology Information Source.............Cervix Other.............. No. of containers..01 ThinPrep Vial Age Kim TINAJERO Memo... FLAG LEGEND: L-Low Normal,H-High Normal,LL-Alert Low,HH-Alert High <-Panic Low,>-Panic High,A-Abnormal,AA-Critical Abnormal Performed at: 01 =G [address] [address] Katie Lopez MD, IGP, RFX APTIMA HPV ASCU Note . [facility] Comment on above: TESTS RESULT FLAG UN ITS REF RANGE LAB DIAGNOSIS: 02 NEGATIVE FOR INTRAEPITHELIAL LESION OR MALIGNANCY. Specimen adequacy: 02 Satisfactory for evaluation. Endocervical and/or squamous metaplastic cells (endocervical component) are present. Performed by: 02 Radha Cruz Counseling Case Manager ([facility]) . 02 Note: Note [...] High,A-Abnormal,AA-Critical Abnormal Performed at: 02 [facility] [address] [address] [place] [address] Fer Mehta MD, 03 WB [facility] [address] [address] Katie Lopez MD, Performed at: =G - [facility] [address] [id number] Lathe Spotter: Katie Lopez MD, Phone: [phone] Performed at: [facility] - [facility] [address] [place], [place] [id number] Lathe Spotter: Fer Mehta MD, Phone: [phone] [facility] Healthcare RECURRENT VAGINITIS (HTRX)on 05-17-2024 ATOPOBIUM VAGINAE 19.357 Abnormal [facility] ATOPOBIUM VAGINAE Detected Abnormal [facility] BVAB 2,3 (BACTERIAL VAGINOSIS ASSOCIATED BACTERIA 2, 3); MOBILUNCUS SPP 16.919 Abnormal [facility] BVAB 2,3 (BACTERIAL VAGINOSIS ASSOCIATED BACTERIA 2, 3); MOBILUNCUS SPP Detected Abnormal [facility] ALYSSA ALBICANS, PARAPSILOSIS, TROPICALIS 0 [facility] ALYSSA ALBICANS, PARAPSILOSIS, TROPICALIS Not detected [facility] ALYSSA GLABRATA 0 [facility] ALYSSA GLABRATA Not detected [facility] ALYSSA KRUSEI 0 [facility] ALYSSA KRUSEI Not detected [facility] CHLAMYDIA TRACHOMATIS 0 [facility] CHLAMYDIA TRACHOMATIS Not detected N [facility] ERMB, C; MEFA 19.876 Abnormal [facility] ERMB, C; MEFA Detected Abnormal [facility] GARDNERELLA VAGINALIS 24.591 Abnormal [facility] GARDNERELLA VAGINALIS Detected Abnormal [facility] Healthcare Interpretation and review of laboratory results Abnormal [facility] MEGASPHAERA (TYPES 1, 2) 0 [facility] MEGASPHAERA (TYPES 1, 2) Not detected [facility] MYCOPLASMA GENITALIUM 22.396 Abnormal [facility] S [facility] MYCOPLASMA GENITALIUM Detected Abnormal [facility] S [facility] NEISSERIA GONORRHOEAE 0 [facility] NEISSERIA GONORRHOEAE Not detected N [facility] TET B, TET M 20.657 Abnormal [facility] TET B, TET M Detected Abnormal [facility] TRICHOMONAS VAGINALIS 0 [facility] TRICHOMONAS VAGINALIS Not detected N [facility] Urinalysis macro (dipstick) panel (U)on 05-16-2024 Bilirubin, UA Negative Negative - 4(70) +++ mg/dL [facility] Blood, UA Negative Negative - 50 Jian/mcL [facility] Clarity, UA Clear [facility] Color, UA Yellow [facility] Glucose, UA Negative Negative - 2000(110) ++++ mg/dL [facility] Interpretation and review of laboratory results Abnormal [facility] Ketones, UA Negative Negative - 160(16) ++++ mg/dL [facility] Leukocytes, UA Trace Negative - 500+++ Heriberto/mcL [facility] Nitrite, UA Negative Negative - Positive [facility] pH, UA 7 5 - 9 [facility] Protein, UA Negative Negative - 2000(20) ++++ mg/dL [facility] Spec Grav, UA 1.02 1 - 1.03 [facility] Urobilinogen, UA 0.2 0.2 - 12 mg/dL [facility] US OB 14+ WEEKS ANATOMY SCAN [...] II, MD, PHD at 09-May-2024 09:57:06 AM [facility] Normal Not Available Comment on above: Order Comment: US OB ANATOMY SINGLE W US OB CERVICAL LENGTH Estimated Date of Delivery: 09/21/24 Gestational Age as of 04/17/2024: 17w4d Urinalysis macro (dipstick) panel (U)Ordered By: Allegra Wallis on 04-17-2024 Bilirubin, UA Negative Negative - 4(70) +++ mg/dL [facility] Blood, UA Negative Negative - 50 Jian/mcL [facility] Clarity, UA Clear [facility] Color, UA Yellow [facility] Glucose, UA Negative Negative - 1999(110) ++++ mg/dL [facility] Interpretation and review of laboratory results Abnormal [facility] Ketones, UA Negative Negative - 160(16) ++++ mg/dL [facility] Leukocytes, UA Positive Negative - 500+++ Heriberto/mcL [facility] Comment on above: small Nitrite, UA Negative Negative - Positive [facility] pH, UA 7.5 5 - 9 [facility] Protein, UA Trace Negative - 1999(20) ++++ mg/dL [facility] Spec Grav, UA 1.02 1 - 1.03 [facility] Urobilinogen, UA 1.0 0.2 - 12 mg/dL [facility] BOX TESTon 02-29-[address] OUT [facility] BOX1 [facility] BOX2 02/29/2024 [facility] [facility] BOX1 [facility] BOX2 02/18/24 [facility] US PREG LESS THAN 14 WKS SIN GLEon 02-11-2024 US PREG LESS THAN 14 WKS SINGLE US PREG LESS THAN 14 WKS SINGLE Pelvic ultrasound History:Dates viability Comparison:None Findings: Single live IUP at 8 weeks 2 days. [place]-rump length 2.1 cm. Yolk sac visualized. Heart [...] Thomas MD on 02/11/2024 11:49 AM Normal [facility] US PREG LESS THAN 14 WKS WIT H TRANSVAGINALon 01-26-2024 US PREG LESS THAN 14 WKS WITH TRANSVAGINAL US PREG LESS THAN 14 WKS WITH TRANSVAGINAL US PREG LESS THAN 14 WKS WITH TRANSVAGINAL: 01/26/2024 9:30 AM Clinical: Check dates and viability. Real-time transabdominal and transvaginal sonography pelvis performed.. No comparison. There is a single intrauterine with cardiac activity 101 beats per minute. [place]-rump length of 2.6 mm corresponds to 5 [...] Roque MD on 01/26/2024 12:54 PM Normal [facility] ACUTE HEPATITIS PANELon 01-08 ANTI HCV W/PCR REFLX Non-Reactive Normal NRCT [facility] Comment on above: Result Comment: NEW TEST METHOD NOTE If recent infection suspected, recommend repeat testing (>2 months). Chrtnz-rp-nwzdng ratio is <1.00. Performed By: #### C BC, CMP, 2532-0, 3084-1, 41983-1, 61989-6, AHP, 39846-2, 01548-8, 95244-0 #### [facility] ([id number]) [address], [address] [place] [address] HEPATITIS A IGM Non-Reactive Normal NRCT [facility] Comment on above: Result Comment: NEW TEST METHOD Performed By: #### C BC, CMP, 2532-0, 3084-1, 13983-8, 03356-5, AHP, 52204-2, 55939-9, 42215-1 #### [facility] ([id number]) [address], [address] [place] [address] HEPATITIS B CORE IGM Non-Reactive Normal NRCT [facility] Comment on above: Result Comment: NEW TEST METHOD Performed By: #### C BC, CMP, 2532-0, 3084-1, 78863-6, 44227-2, AHP, 75132-2, 99018-5, 16302-6 #### [facility] ([id number]) [address], [address] [place] [address] HEPATITIS B SURF AG Non-Reactive Normal NRCT [facility] Comment on above: Result Comment: NEW TEST METHOD Performed By: #### C BC, CMP, 2532-0, 3084-1, 87442-8, 06060-1, AHP, 78288-3, 45749-9, 04261-0 #### [facility] ([id number]) [address], [address] [place] [address] COMPLETE BLOOD COUNTon 01-18 Erythrocyte distribution width (RBC) [Ratio] 13.2 % Normal 11.5-15.0 [facility] Comment on above: Performed By: #### C BC, CMP, 2532-0, 3084-1, 50233-1, 05485-0, AHP, 37509-7, 48158-8, 24281-4 #### [facility] ([id number]) [address], [address] [place] [address] Hematocrit (Bld) [Volume fraction] 41.8 % Normal 35-47 [facility] Comment on above: Performed By: #### C BC, CMP, 2532-0, 3084-1, 40979-0, 41572-9, AHP, 59871-1, 03889-6, 97205-0 #### [facility] ([id number]) [address], [address] [place] [address] Hemoglobin (Bld) [Mass/Vol] 14.3 g/dL Normal 11.7-15.5 [facility] Comment on above: Performed By: #### C BC, CMP, 2532-0, 3084-1, 52231-5, 70527-2, AHP, 37809-0, 40287-9, 52430-1 #### [facility] ([id number]) [address], [address] [place] [address] MCH (RBC) [Entitic mass] 31.7 pg Normal 27-34 [facility] Comment on above: Performed By: #### C BC, CMP, 2532-0, 3084-1, 91888-9, 47377-9, AHP, 64352-4, 75234-9, 78031-7 #### [facility] ([id number]) [address], [address] [place] [address] MCHC (RBC) [Mass/Vol] 34.3 g/dL Normal 32-36 [facility] Comment on above: Performed By: #### C BC, CMP, 2532-0, 3084-1, 00970-9, 98001-4, AHP, 08296-1, 65985-1, 00780-0 #### [facility] ([id number]) [address], [address] [place] [address] MCV (RBC) [Entitic vol] 92 fL Normal 80-100 [facility] Comment on above: Performed By: #### C BC, CMP, 2532-0, 3084-1, 32765-5, 53936-7, AHP, 75540-2, 68575-8, 51926-7 #### [facility] ([id number]) [address], [address] [place] [address] Platelet mean volume (Bld) [Entitic vol] 8.8 fL Normal 7-12 [facility] Comment on above: Performed By: #### C BC, CMP, 2532-0, 3084-1, 15802-9, 71015-4, AHP, 62444-9, 87596-8, 50147-7 #### [facility] ([id number]) [address] [place] [address] Platelets (Bld) [#/Vol] 238 10*3/uL Normal 150-450 [facility] Comment on above: Performed By: #### C BC, CMP, 2532-0, 3084-1, 17760-6, 36724-1, AHP, 57770-3, 71469-4, 14773-2 #### [facility] ([id number]) [address], [address] [place] [address] RBC COUNT 4.52 X10E12/L Normal 3.80-5.20 [facility] Comment on above: Performed By: #### C BC, CMP, 2532-0, 3084-1, 77332-2, 74043-2, AHP, 72918-7, 38611-9, 08494-7 #### [facility] ([id number]) [address], [address] [place] [address] WBC (Bld) [#/Vol] 5.0 10*3/uL Normal 4.0-11.0 [facility] Comment on above: Performed By: #### C BC, CMP, 2532-0, 3084-1, 86923-8, 41709-9, AHP, 64017-7, 83524-5, 13194-4 #### [facility] ([id number]) [address], [address] [place] [address] COMPREHENSIVE METABOLIC PANE Eric 01-19-2024 Albumin [Mass/Vol] 4.4 g/dL Normal 3.2-5.3 [facility] Comment on above: Performed By: #### C BC, CMP, 2532-0, 3084-1, 28787-2, 88526-5, AHP, 07782-7, 89928-1, 82160-9 #### [facility] ([id number]) [address], [address] [place] [address] ALP [Catalytic activity/Vol] 42 U/L Normal 39-130 [facility] Comment on above: Performed By: #### C BC, CMP, 2532-0, 3084-1, 78041-9, 57762-2, AHP, 02557-9, 90326-6, 03652-2 #### [facility] ([id number]) [address], [address] [place] [address] ALT [Catalytic activity/Vol] 17 U/L Normal 0-31 [facility] Comment on above: Performed By: #### C BC, CMP, 2532-0, 3084-1, 44289-6, 24277-7, AHP, 77492-1, 57983-6, 40240-1 #### [facility] ([id number]) [address], [address] [place] [address] Anion gap [Moles/Vol] 9 mmol/L Normal 5-15 [facility] Comment on above: Performed By: #### C BC, CMP, 2532-0, 3084-1, 78273-7, 34570-4, AHP, 20531-2, 59193-2, 84838-1 #### [facility] ([id number]) [address], [address] [place] [address] AST [Catalytic activity/Vol] 17 U/L Normal 0-41 [facility] Comment on above: Performed By: #### C BC, CMP, 2532-0, 3084-1, 30827-3, 24401-8, AHP, 39476-7, 46071-1, 53692-1 #### [facility] ([id number]) [address], [address] [place] [address] Bilirubin [Mass/Vol] 0.6 mg/dL Normal 0.3-1.2 [facility] Comment on above: Performed By: #### C BC, CMP, 2532-0, 3084-1, 39339-0, 32839-3, AHP, 19060-2, 10645-4, 99608-9 #### [facility] ([id number]) [address], [address] [place] [address] Calcium [Mass/Vol] 8.9 mg/dL Normal 8.5-10.5 [facility] Comment on above: Performed By: #### C BC, CMP, 2532-0, 3084-1, 44874-9, 37657-9, AHP, 55495-2, 49349-5, 09580-2 #### [facility] ([id number]) [address], [address] [place] [address] Chloride [Moles/Vol] 104 mmol/L Normal 98-109 [facility] Comment on above: Performed By: #### C BC, CMP, 2532-0, 3084-1, 18655-0, 53141-9, AHP, 12940-3, 80027-0, 78106-6 #### [facility] ([id number]) [address], [address] [place] [address] CO2 [Moles/Vol] 28 mmol/L Normal 22-32 [facility] Comment on above: Performed By: #### C BC, CMP, 2532-0, 3084-1, 37437-5, 23873-3, AHP, 78385-5, 04319-3, 70971-1 #### [facility] ([id number]) [address], [address] [place] [address] Creatinine [Mass/Vol] 0.68 mg/dL Normal 0.40-1.00 [facility] Comment on above: Result Comment: METH OD TRACEABLE TO IDMS STANDARD Performed By: #### C BC, CMP, 2532-0, 3084-1, 90524-2, 52055-1, AHP, 36882-7, 30013-0, 70681-4 #### [facility] ([id number]) [address], [address] [place] [address] eGFR (CKD-EPI) NON-RACE DEPENDENT >90 Normal >59 [facility] Comment on above: Result Comment: Reported eGFR is based on the CKD-EPI 2020 equation that does not use a race coefficient. Performed By: #### C BC, CMP, 2532-0, 3084-1, 27957-9, 72684-5, AHP, 78200-9, 40917-1, 08929-3 #### [facility] ([id number]) [address], [address] [place] [address] Glucose [Mass/Vol] 84 mg/dL Normal 65-99 [facility] Comment on above: Performed By: #### C BC, CMP, 2532-0, 3084-1, 87233-6, 67185-6, AHP, 64259-8, 91621-7, 16816-5 #### [facility] ([id number]) [address], [address] [place] [address] Potassium [Moles/Vol] 3.4 mmol/L Low 3.5-5.0 [facility] Comment on above: Performed By: #### C BC, CMP, 2532-0, 3084-1, 90851-0, 61373-6, AHP, 32859-6, 78857-1, 52970-5 #### [facility] ([id number]) [address], [address] [place] [address] Protein [Mass/Vol] 7.0 g/dL Normal 6.0-8.0 [facility] Comment on above: Performed By: #### C BC, CMP, 2532-0, 3084-1, 41164-3, 43094-2, AHP, 51804-7, 42656-5, 38910-5 #### [facility] ([id number]) [address], [address] [place] [address] Sodium [Moles/Vol] 141 mmol/L Normal 134-146 [facility] Comment on above: Performed By: #### C BC, CMP, 2532-0, 3084-1, 52783-7, 99673-3, AHP, 73853-4, 25244-0, 72590-8 #### [facility] ([id number]) [address], [address] [place] [address] Urea nitrogen [Mass/Vol] 9 mg/dL Normal 5-23 [facility] Comment on above: Performed By: #### C BC, CMP, 2532-0, 3084-1, 27800-1, 82211-3, AHP, 91579-5, 82229-9, 89197-0 #### [facility] ([id number]) [address], [address] [place] [address] Creatinine (U) [Mass/Vol]on 01-19-2024 URINE CREATININE,RDM 153.52 mg/dL Normal Pr [facility] Comment on above: Performed By: #### 6 556-5 #### [facility] ([id number]) [address] [place] [address] DRUG SCREEN, URINEon 024 AMPHETAMINE/METHAMP Negative Normal NEG [facility] Comment on above: Result Comment: AMPH /METH screening cut off = 1000 ng/mL Performed By: #### 6 556-5 #### [facility] ([id number]) [address] [place] [address] BARBITURATES Negative Normal NEG [facility] Comment on above: Result Comment: Basilia iturates screening cut off value = 200 ng/mL Performed By: #### 6 556-5 #### [facility] ([id number]) [address] [place] [address] BENZODIAZEPINES Negative Normal NEG [facility] Comment on above: Result Comment: Miguelangel odiazepines screening cut off value = 200 ng/mL Performed By: #### 6 556-5 #### [facility] ([id number]) [address] [place] [address] CANNABINOIDS Positive Abnormal NEG [facility] Comment on above: Result Comment: Conf irmation available upon request. Cannabinoids/THC screening cut off value = 50 ng/mL Performed By: #### 6 556-5 #### [facility] ([id number]) [address] [place] [address] COCAINE METABOLITE Negative Normal NEG [facility] Comment on above: Result Comment: Coca ine screening cut off value = 300 ng/mL Performed By: #### 6 556-5 #### [facility] ([id number]) [address] [place] [address] ECSTASY Negative Normal NEG [facility] Comment on above: Result Comment: Ecst asy screening cut off value = 500 ng/mL This report is intended for use in clinical monitoring or management of patients. Performed By: #### 6 556-5 #### [facility] ([id number]) [address] [place] [address] METHADONE Negative Normal [facility] Comment on above: Result Comment: Meth adone screening cut off value = 300 ng/mL. Performed By: #### 6 556-5 #### [facility] ([id number]) [address] [place] [address] OPIATES Negative Normal NEG [facility] Comment on above: Result Comment: Opia memo screening cut off value = 300 ng/mL NOTE: This test is used for the detection of codeine, hydrocodone (>1000 ng/mL), morphine and hydromorphone (>900 ng/mL) in urine. Performed By: #### 6 556-5 #### [facility] ([id number]) [address] [place] [address] [place] [address] OXYCODONE Negative Normal NEG [facility] Comment on above: Result Comment: Oxyc odone screening cut off value = 300 ng/mL NOTE: This test is used for the detection of oxycodone and oxymorphone in urine. Performed By: #### 6 556-5 #### [facility] ([id number]) [address] [place] [address] PHENCYCLIDINE Negative Normal NEG [facility] Comment on above: Result Comment: Phen cyclidine screening cut off value = 25 ng/mL Performed By: #### 6 556-5 #### [facility] ([id number]) [address] [facility], [place] [address] HCG.beta subunit IA 3rd IS Q non 01-19-2024 HCG.beta subunit Qn 6499 m[IU]/mL Normal Pr [facility] Comment on above: Result Comment: NEW REFERENCE [...] nontrophoblastic neoplasms. Performed By: #### C BC, [facility], 2532-0, 3084-1, 29964-0, 44013-9, P, 17835-4, 93988-1, 55112-9 #### [facility] ([id number]) [address] [place] [address], [address] [place] [address] HIV 1+2 Ab+HIV1 p24 Ag IA Ql on 01-19-2024 HIV 1 and 2 Ab/Ag Screen Non-Reactive Normal NRCT [facility] Comment on above: Result Comment: NEW [...] By: #### C BC, CMP, 2532-0, 3084-1, 75468-1, 73408-7, AHP, 14577-9, 35781-3, 55019-3 #### [facility] ([id number]) [address] [facility], [address] [place] [address] LDH [Catalytic activity/Vol] on 01-19-2024 LDH 163 U/L Normal 100-235 [facility] Comment on above: Performed By: #### C BC, CMP, 2532-0, 3084-1, 06024-5, 27075-9, AHP, 43596-4, 05984-5, 27966-3 #### [facility] ([id number]) [address] [facility], [address] [place] [address] PROTEIN CREAT RATIOon 2023 RANDOM URINE PROTEIN 100 mg/L Normal <120 [facility] Comment on above: Performed By: #### 6 556-5 #### [facility] ([id number]) [address] [place] [address] U/PRO/SOLAR PHOTOVOLTAIC CREW LEAD RATIO CALC 0.06 Normal <0.2 [facility] Comment on above: Result Comment: Neph rotic Syndrome is associated with ratios >3.5 Performed By: #### 6 556-5 #### [facility] ([id number]) [address] [place] [address] URINE CREATININE,RDM 155.31 mg/dL Normal [facility] Comment on above: Performed By: #### 6 556-5 #### [facility] ([id number]) [address] [place] [address] Rubella virus Ab Ql (S)on RUBELLA IMMUNE IgG 2.5 AI Normal [facility] Comment on above: Result Comment: Interpretation-------- <0.8 NEGATIVE-considered Not Immune 0.8-0.9 EQUIVOCAL-consider retesting with new specimen >0.9 POSITIVE-considered Immune Performed By: #### 6 556-5 #### [facility] ([id number]) [address] [place] [address] T. pallidum IgG+IgM IA Ql (S )on 01-19-2024 Syphilis Total 0.8 AI Normal 0.0-0.8 [facility] Comment on above: Result Comment: NON REACTIVE No serologic evidence of infection to Treponema pallidum (syphilis). Repeat testing may be considered in patients with suspected acute or primary syphilis in 2 to 4 weeks. Performed By: #### 6 556-5 #### [facility] ([id number]) [address] [place] [address] URIC ACIDon 01-19-2024 Urate [Mass/Vol] 2.1 mg/dL Low 2.6-7.2 [facility] Comment on above: Performed By: #### C BC, CMP, 2532-0, 3084-1, 01129-2, 50886-5, AHP, 86096-2, 89340-6, 08702-0 #### [facility] ([id number]) [address], [address] [place] [address] URINALYSISon 01-19-2024 Bilirubin Ql (U) Negative Normal NEG [facility] Comment on above: Performed By: #### U A #### [facility] ([id number]) [address], [address] [place] [address] BLOOD/HGB Negative Normal NEG [facility] Comment on above: Performed By: #### U A #### [facility] ([id number]) [address], [address] [place] [address] Color (U) YELLOW Normal YELLOW [facility] Comment on above: Performed By: #### U A #### [facility] ([id number]) [address], [address] [place] [address] Glucose Ql (U) Negative Normal NEG [facility] Comment on above: Performed By: #### U A #### [facility] ([id number]) [address], [address] [place] [address] Ketones Ql (U) Negative Normal NEG [facility] Comment on above: Performed By: #### U A #### [facility] ([id number]) [address], [address] [place] [address] Leukocyte esterase Test strip Ql (U) Negative Normal NEG [facility] Comment on above: Performed By: #### U A #### [facility] ([id number]) [address], [address] [place] [address] MUCOUS PRESENT Abnormal NONE [facility] Comment on above: Performed By: #### U A #### [facility] ([id number]) [address], [address] [place] [address] Nitrite Ql (U) Negative Normal NEG [facility] Comment on above: Performed By: #### U A #### [facility] ([id number]) [address], [address] [place] [address] pH (U) 6.5 [pH] Normal 5.0-8.5 [facility] Comment on above: Performed By: #### U A #### [facility] ([id number]) [address], [address] [place] [address] Protein Ql (U) Trace Abnormal NEG [facility] Comment on above: Performed By: #### U A #### [facility] ([id number]) [address], [address] [place] [address] R.B.CELLS 1 /hpf Normal 0-5 [facility] Comment on above: Performed By: #### U A #### [facility] ([id number]) [address] [facility] [place] [address] Specific gravity (U) [Rel density] 1.017 Normal 1.003-1.035 [facility] Comment on above: Performed By: #### U A #### [facility] ([id number]) [address] [facility], [address] [place] [address] SQUAMOUS EPITHELIUM 8 /hpf High 0-5 [facility] Comment on above: Performed By: #### U A #### [facility] ([id number]) [address] [place] [address], [address] [place] [address] TURBIDITY HAZY Abnormal CLEAR [facility] Comment on above: Performed By: #### U A #### [facility] ([id number]) [address] [facility], [address] [place] [address] Urobilinogen (U) [Mass/Vol] mg/dL Normal <1.1 [facility] Comment on above: Performed By: #### U A #### [facility] ([id number]) [address] [place] [address], [address] [place] [address] W.B.CELLS 2 /hpf Normal 0-5 [facility] Comment on above: Performed By: #### U A #### [facility] ([id number]) [address] [place] [address], [address] [place] [address] URINE CULTUREon 01-19-2024 Bacteria identified Cx Nom (U) CULTURE RESULTS NO GROWTH AT <1000 CFU/mL Normal [facility] Comment on above: Performed By: #### 6 556-5 #### [facility] ([id number]) [address] [place] [address], [place] [address] VZV IgG IA Ql (S)on 01-19-20 24 VARICELLA IgG 0.2 AI Normal <0.9 [facility] Comment on above: Result Comment: Interpretation-------- <0.9 Negative 0.9 - 1.0 Equivocal >1.0 Positive Performed By: #### 6 556-5 #### [facility] ([id number]) [address] [place] [address], [place] [address] ABORhon 01-11-2024 ABO and Rh group Nom (Bld) Hx Check: Not Found Anti-A: 4+ Anti-B: 0 Anti-D: 4+ DCon: NT A1: 0 B: 4+ ABORh Interp: A POS Invalid Interpretation Code [facility] Comment on above: Performed By: #### 1 [id number], [id number], [id number] #### [facility] (DEFAULT) [address] [place] [address] ABORh Retypeon 01-11-2024 ABO and Rh group Nom (Bld) Ordered by Discern. Anti-A: 4+ Anti-B: 0 Anti-D: 4+ DCon: NT A1: 0 B: 4+ ABORh Retype: A POS Invalid Interpretation Code [facility] Comment on above: Performed By: #### 1 [id number], [id number], [id number] #### [facility] (DEFAULT) [address] [place] [address] ED Clinical Summaryon 2023 ED Clinical Summary [facility] - Emergency Department [address] [place], [place] [id number] ED Clinical Summary PERSON INFORMATION Name: HAWK KING [place]GE [place] Age: 23 Years Sex: FEMALE : 2000 MRN: Acct#: Visit Reason: Test; PREGANT, WANT TEST DONE, SPOTTING BLOOD Arrival: 01/11/2024 10:11:43 Discharge: 01/11/2024 11:59:00 LOS: 000 01:48 Check In: 01/11/2024 10:11:43 Checkout:01/11/2024 11:59:00 Address: [address] [place] [address] PCP: ANN-MARIE ASH MD PROVIDER INFORMATION Provider [...] Home PATIENT EDUCATION INFORMATION Instructions: Bacterial Vaginosis, Lfhd-xr-Ebve Follow-Up: With: Address: When: MIHIR DEL VALLE, ANN-MARIE Dc [address] [place] [address] [phone] Within 3 to 5 days DIAGNOSIS: 1:Vaginal bleeding during ; 2:Bacterial vaginosis in ; 3:; Other specified bacterial agents as the cause of diseases classified elsewhere Patient Understands: Yes - Patient/family/caregi john verbalizes understanding of instructions given Comment: [facility] ED Note-Nursingon 01-11-2024 ED Note-Nursing Ambulates with [...] LMP 2023. Dr. Laguerre in for exam. [facility] ED Patient Summaryon 024 ED Patient Summary [facility] - Emergency Department [address] [place] [address] [id number] PATIENT DISCHARGE INSTRUCTIONS Patient Information Name: HAWK KING PAULIETEZ Age: 23 Years Date of : 2000 [facility]: [id number] Reason For Visit: Test; PREGANT, WANT TEST DONE, SPOTTING BLOOD Arrival Time: 01/11/2024 10:11:43 Primary Care Physician: ANN-MARIE ASH MD Attending Physician: Abner Laguerre MD Comment: Visit Diagnosis: Diagnoses This Visit Bacterial vaginosis in (O23.599) Other specified bacterial agents as the cause of diseases classified elsewhere (B96.89) (Z34.90) Test ([id number]) Vaginal bleeding during (O46.90) The Pharmacy at [facility] is open Wednesday through Wednesday from [...] alcohol and/or drug addiction problems; contact the [facility] 31/08 Crisis Hotline -Text 5KAOV fi 550625. If you received any narcotics, sedation, or [...] documents With: Address: When: ANN-MARIE ASH MD [address] [place] [address] [phone] Within 3 to 5 days Medication Information: The exam and treatment you received today in the [facility] Emergency Department were for an urgent problem and are not intended as complete care. It is important for you to follow up with a doctor, nurse practitioner, or physician?s reference assistant for ongoing care. If your symptoms [...] so we can reach you if necessary. [facility] Emergency Department has provided you with a complete list of medications post discharge. Please inform your cushion gum applicator/provider of your visit and for further instruction on these medications. Any specific questions regarding your chronic medications and dosages should be discussed with your primary care physician(s) and/or pharmacist. New Medications [facility], [address], [place] [id number], [phone] metroNIDAZOLE (metroNIDAZOLE 500 mg oral tablet) 1 [...] the antibiotic as prescribed. Follow-up with your MEDICATION CARE MANAGER to review this emergency department visit. Return [...] infection can cau (more content not included)... [facility] Test Urine 1on U Preg Positive [facility] Comment on above: Performed By: #### 1 [id number], [id number], [id number] #### [facility] (DEFAULT) [address] [place] [address] U Preg Internal Control Pass [facility] Comment on above: Performed By: #### 1 [id number], [id number], [id number] #### [facility] (DEFAULT) [address] [place] [address] UA [id number] 01-11-2024 UA Bacteria 1+ [facility] Comment on above: Order Comment: Urina lysis Microscopic order added on by [employer] system. Performed By: #### 1 [id number] #### [facility] (DEFAULT) [address] [place] [id number] UA Comment. Clue Cells Seen [facility] Comment on above: Order Comment: Urina lysis Microscopic order added on by [employer] system. Performed By: #### 1 [id number] #### [facility] (DEFAULT) [address] [place] [id number] UA RBC 0-2 [facility] Comment on above: Order Comment: Urina lysis Microscopic order added on by [employer] system. Performed By: #### 1 [id number] #### [facility] (DEFAULT) [address] [place] [id number] UA Squam Epi Few [facility] Comment on above: Order Comment: Urina lysis Microscopic order added on by [employer] Expert Rules system. Performed By: #### 1 [id number], [id number], [id number] #### [facility] (DEFAULT) [address] [place] [address] [id number] UA WBC 3-5 [facility] Comment on above: Order Comment: Urina lysis Microscopic order added on by [employer] Expert Rules system. Performed By: #### 1 [id number], [id number], [id number] #### [facility] (DEFAULT) [address] [place] [address] UA w Culture if Ind Standard on 01-11-2024 Breakpoint UA [facility] Comment on above: Performed By: #### 1 [id number], [id number], [id number] #### [facility] (DEFAULT) [address] [place] [address] Color (U) Yellow [facility] Comment on above: Performed By: #### 1 [id number], [id number], [id number] #### [facility] (DEFAULT) [address] [place] [address] Culture? Indicated Invalid Interpretation Code [facility] Comment on above: Result Comment: Resu lt created by rule GL_MAGR_ADD_UA_CULT Performed By: #### 1 [id number], [id number], [id number] #### [facility] (DEFAULT) [address] [place] [address] Glucose (U) [Mass/Vol] Negative [facility] Comment on above: Performed By: #### 1 [id number], [id number], [id number] #### [facility] (DEFAULT) [address] [place] [address] 23435 Ketones Ql (U) Negative [facility] Comment on above: Performed By: #### 1 [id number], [id number], [id number] #### [facility] (DEFAULT) [address] [place] [address] 14699 Micro? Indicated Invalid Interpretation Code [facility] Comment on above: Result Comment: Resu lt created by rule GL_MAGR_ADD_UA_MICRO Result created by rule GL_MAGR_ADD_UA_MICRO Performed By: #### 1 [id number], [id number], [id number] #### [facility] (DEFAULT) [address] [place] [address] UA Bilirubin Negative [facility] Comment on above: Performed By: #### 1 [id number], [id number], [id number] #### [facility] (DEFAULT) [address] [place] [address] 81559 UA Blood Negative Normal NEGATIVE [facility] Comment on above: Performed By: #### 1 [id number], [id number], [id number] #### [facility] (DEFAULT) [address] [place] [address] 98706 UA Clarity CLEAR Normal CLEAR [facility] Comment on above: Performed By: #### 1 [id number], [id number], [id number] #### [facility] (DEFAULT) [address] [place] [address] 48573 UA Leuk Est SMALL Abnormal NEGATIVE [facility] Comment on above: Performed By: #### 1 [id number], [id number], [id number] #### [facility] (DEFAULT) [address] [place] [address] 18382 UA Nitrite Negative Normal NEGATIVE [facility] Comment on above: Performed By: #### 1 [id number], [id number], [id number] #### [facility] (DEFAULT) [address] [place] [address] 05356 UA pH 6.5 Normal 5-8 [facility] Comment on above: Performed By: #### 1 [id number], [id number], [id number] #### [facility] (DEFAULT) [address] [place] [address] 15884 UA Protein Negative Normal NEGATIVE [facility] Comment on above: Performed By: #### 1 [id number], [id number], [id number] #### [facility] (DEFAULT) [address] [place] [address] 91384 UA Spec Grav 1.025 Normal 1.001-1.035 [facility] Comment on above: Performed By: #### 1 [id number], [id number], [id number] #### [facility] (DEFAULT) [address] [place] [address] 18633 UA Urobilinogen 1.0 mg/dL Normal 0.2-1.0 [facility] Comment on above: Performed By: #### 1 [id number], [id number], [id number] #### [facility] (DEFAULT) [address] [place] [address] Urine Source Clean Catch Normal [facility] Comment on above: Performed By: #### 1 [id number], [id number], [id number] #### [facility] (DEFAULT) [address] [place] [address] hCG Quantitativeon 4 hCG Quantitative 149.6 mIU/mL High 0.0-0.6 [facility] Comment on above: Result Comment: Post -Menopausal Reference Range is: 0.1-11.6 mIU/mL Performed By: #### 1 [id number], [id number], [id number] #### [facility] (DEFAULT) [address] [place] [address] 76342 ALL CBC WITH AUTO DIFFon BASOPHILS ABSOLUTE AUTO 0.0 [facility] Basophils/100 WBC (Bld) 0.5 % 0.2 - 2.0 % [facility] Eosinophils/100 WBC (Bld) 3.9 % 0.9 - 7.0 % [facility] Erythrocyte distribution width (RBC) [Ratio] 12.5 % 11.0 - 15.0 % [facility] Hematocrit (Bld) [Volume fraction] 42.3 % 36.0 - 48.0 % [facility] Hemoglobin (Bld) [Mass/Vol] 14.4 g/dL 12.0 - 16.0 g/dL [facility] IMMATURE GRANULOCYTES ABS AUTO 0.01 [facility] Immature granulocytes/100 WBC (Bld) 0.2 % 0.0 - 0.5 % [facility] LYMPHOCYTES ABSOLUTE AUTO 2.3 [facility] Lymphocytes/100 WBC (Bld) 35.7 % 20.5 - 60.0 % [facility] MCH (RBC) [Entitic mass] 31.3 pg 26.7 - 34.0 pg [facility] MCHC (RBC) [Mass/Vol] 34.0 g/dL 29.9 - 35.2 g/dL [facility] MCV (RBC) [Entitic vol] 92.0 fL 81.0 - 99.0 fL [facility] MONOCYTES ABSOLUTE AUTO 0.5 [facility] Monocytes/100 WBC (Bld) 7.2 % 1.7 - 12.0 % [facility] NEUTROPHILS ABSOLUTE AUTO 3.4 [facility] Neutrophils/100 WBC (Bld) 52.5 % 43.0 - 75.0 % [facility] Platelet mean volume (Bld) [Entitic vol] 10.1 fL 9.5 - 13.5 fL [facility] TB EO # 0.3 [facility] TBH PLT 281 [facility] TB RBC 4.60 [facility] WBC 6.5 [facility] Outside Recordson 03-23-2023 Outside Records [id number]# 1.00OTGTIFF Normal [facility] RAPID STREP SCR NURSINGon S. pyogenes Ag EIA Ql (Throat) Negative Normal NEG [facility] Comment on above: Performed By: #### 6 [id number] #### [facility] ([id number]) [address] [place] [address], [place] [address] SARS/FLU A+B/RSV by NAAT/Mol ecularon 03-22-2023 SARS/FLU [...] operators who are performing tests using either wywy DX or SIPphone systems and is limited to laboratories that [...] repeat. Fact Sheet for Healthcare Providers: https://www.fda.gov/m edia/878475/download Fact Sheet for Patients: https://www.fda.gov/m edia/535191/download Normal [facility] Comment on above: Performed By: #### C OVFLR #### [facility] ([id number]) [address] [place] [address], [place] [address] [place] PREG TVon 07-03-2022 US PREG TV [...] CHEMA LEE Date: 2022-07-03 17:20 Normal [facility] PREG QUANT HCGon 06-04-2022 HCG QUANT 1906 mIU/mL Normal [facility] Comment on above: Performed By: #### C BC #### [facility] [address] [place] [address] Dr. Qi Benedict HCG RANGE SEE BELOW Normal [facility] Comment on above: Result Comment: 5-50 0.2-1 WEEK 50-500 1-2 WEEKS 100-5,000 2-3 WEEKS 500-10,000 3-4 WEEKS 1,000-50,000 4-5 WEEKS 10,000-100,000 5-6 WEEKS 15,000-200,000 6-8 WEEKS 10,000-100,000 2-3 MONTHS Performed By: #### C BC #### [facility] [address] [place] [address] Dr. Qi Benedict PREG QUANT HCGon 05-29-2022 HCG QUANT 118 mIU/mL Normal [facility] Comment on above: Performed By: #### D RUGRPD #### [facility] [address] [place] [address] Dr. Qi Benedict HCG RANGE SEE BELOW Normal [facility] Comment on above: Result Comment: 5-50 0.2-1 WEEK 50-500 1-2 WEEKS 100-5,000 2-3 WEEKS 500-10,000 3-4 WEEKS 1,000-50,000 4-5 WEEKS 10,000-100,000 5-6 WEEKS 15,000-200,000 6-8 WEEKS 10,000-100,000 2-3 MONTHS Performed By: #### D RUGRPD #### [facility] [address] [place] [address] Dr. Qi Benedict CANNABINOID (THC) CONFIRMATI ON, URINEon 02-10-2022 Cannabinoid Positive Abnormal [facility] Comment on above: Performed By: #### D RUGRPD #### [facility] [address] [place] [address] Dr. Qi Benedict Carboxy THC GC/MS Conf >750 Normal Cutoff=10 Th [facility] Comment on above: Performed By: #### D RUGRPD #### [facility] [address] [place] [address] Dr. Qi Benedict CBC AUTO DIFFon 01-30-2022 BASO # 0.0 103/ul Normal 0.0-0.1 [facility] Comment on above: Performed By: #### D RUGRPD #### [facility] [address] [place] [address] Dr. Qi Benedict Basophils/100 WBC (Bld) 0.3 % Normal 0.2-2.0 [facility] Comment on above: Performed By: #### D RUGRPD #### [facility] [address] [place] [address] Dr. Qi Benedict EO # 0.2 103/ul Normal 0.0-0.7 [facility] Comment on above: Performed By: #### D RUGRPD #### [facility] [address] [place] [address] Dr. Qi Benedict Eosinophils/100 WBC (Bld) 1.4 % Normal 0.9-7.0 [facility] Comment on above: Performed By: #### D RUGRPD #### [facility] [address] [place] [address] Dr. Qi Benedict Erythrocyte distribution width (RBC) [Ratio] 14.0 % Normal 11.0-15.0 [facility] Comment on above: Performed By: #### D RUGRPD #### [facility] [address] [place] [address] Dr. Qi Benedict Hematocrit (Bld) [Volume fraction] 32.1 % Critically low 36.0-48.0 [facility] Comment on above: Performed By: #### D RUGRPD #### [facility] [address] [place] [address] Dr. Qi Benedict Hemoglobin (Bld) [Mass/Vol] 10.6 g/dL Critically low 12.0-16.0 [facility] Comment on above: Performed By: #### D RUGRPD #### [facility] [address] [place] [address] Dr. Qi Benedict IG # 0.04 10e3/ul Critically high 0.00-0.03 [facility] Comment on above: Performed By: #### D RUGRPD #### [facility] [address] [place] [address] Dr. Qi Benedict IG % 0.3 % Normal 0.0-0.5 [facility] Comment on above: Performed By: #### D RUGRPD #### [facility] [address] [address] [address] Qi Benedict LYMPH # 2.4 103/ul Normal 1.2-3.8 [facility] Comment on above: Performed By: #### D RUGRPD #### [facility] [address] [address] [address] Qi Benedict Lymphocytes/100 WBC (Bld) 19.9 % Critically low 20.5-60.0 [facility] Comment on above: Performed By: #### D RUGRPD #### [facility] [address] [address] [address] Qi Benedict MANUAL DIFF REQ NO Normal [facility] Comment on above: Performed By: #### D RUGRPD #### [facility] [address] [place] [address] Dr. Qi Benedict MCH (RBC) [Entitic mass] 30.1 pg Normal 26.7-34.0 [facility] Comment on above: Performed By: #### D RUGRPD #### [facility] [address] [place] [address] Dr. Qi Benedict MCHC (RBC) [Mass/Vol] 33.0 g/dL Normal 29.9-35.2 [facility] Comment on above: Performed By: #### D RUGRPD #### [facility] [address] [place] [address] Dr. Qi Benedict MCV (RBC) [Entitic vol] 91.2 fL Normal 81.0-99.0 [facility] Comment on above: Performed By: #### D RUGRPD #### [facility] [address] [address] [address] Qi Benedict MONO # 1.0 103/ul Critically high 0.3-0.8 [facility] Comment on above: Performed By: #### D RUGRPD #### [facility] [address] [place] [address] Dr. Qi Benedict Monocytes/100 WBC (Bld) 8.6 % Normal 1.7-12.0 [facility] Comment on above: Performed By: #### D RUGRPD #### [facility] [address] [address] [address] Qi Benedict NEUT # 8.3 103/ul Critically high 1.4-6.5 [facility] Comment on above: Performed By: #### D RUGRPD #### [facility] [address] [address] [address] Qi Benedict Neutrophils/100 WBC (Bld) 69.5 % Normal 43.0-75.0 [facility] Comment on above: Performed By: #### D RUGRPD #### [facility] [address] [address] [address] Qi Benedict Platelet mean volume (Bld) [Entitic vol] 10.3 fL Normal 9.5-13.5 [facility] Comment on above: Performed By: #### D RUGRPD #### [facility] [address] [address] [address] Qi Benedict PLT 229 103/ul Normal 150-450 [facility] Comment on above: Performed By: #### D RUGRPD #### [facility] [address] [address] [address] Qi Benedict RBC 3.52 106/ul Critically low 4.20-5.40 [facility] Comment on above: Performed By: #### D RUGRPD #### [facility] [address] [address] [address] Qi Benedict WBC 12.0 103/ul Critically high 4.0-11.0 [facility] Comment on above: Performed By: #### D RUGRPD #### [facility] [address] [address] [address] Qi Benedict CBC AUTO DIFFon 01-29-2022 BASO # 0.0 103/ul Normal 0.0-0.1 [facility] Comment on above: Performed By: #### D RUGRPD #### [facility] [address] [address] [address] Qi Benedict Basophils/100 WBC (Bld) 0.2 % Normal 0.2-2.0 [facility] Comment on above: Performed By: #### D RUGRPD #### [facility] [address] [place] [address] Dr. Qi Benedict EO # 0.1 103/ul Normal 0.0-0.7 [facility] Comment on above: Performed By: #### D RUGRPD #### [facility] [address] [place] [address] Dr. Qi Benedict Eosinophils/100 WBC (Bld) 1.4 % Normal 0.9-7.0 [facility] Comment on above: Performed By: #### D RUGRPD #### [facility] [address] [place] [address] Dr. Qi Benedict Erythrocyte distribution width (RBC) [Ratio] 13.5 % Normal 11.0-15.0 [facility] Comment on above: Performed By: #### D RUGRPD #### [facility] [address] [place] [address] Dr. Qi Benedict Hematocrit (Bld) [Volume fraction] 35.9 % Critically low 36.0-48.0 [facility] Comment on above: Performed By: #### D RUGRPD #### [facility] [address] [place] [address] Dr. Qi Benedict Hemoglobin (Bld) [Mass/Vol] 11.9 g/dL Critically low 12.0-16.0 [facility] Comment on above: Performed By: #### D RUGRPD #### [facility] [address] [place] [address] Dr. Qi Benedict IG # 0.03 10e3/ul Normal 0.00-0.03 [facility] Comment on above: Performed By: #### D RUGRPD #### [facility] [address] [place] [address] Dr. Qi Benedict IG % 0.3 % Normal 0.0-0.5 [facility] Comment on above: Performed By: #### D RUGRPD #### [facility] [address] [place] [address] Dr. Qi Benedict LYMPH # 1.5 103/ul Normal 1.2-3.8 [facility] Comment on above: Performed By: #### D RUGRPD #### [facility] [address] [place] [address] Dr. Qi Benedict Lymphocytes/100 WBC (Bld) 14.8 % Critically low 20.5-60.0 [facility] Comment on above: Performed By: #### D RUGRPD #### [facility] [address] [place] [address] Dr. Qi Benedict MANUAL DIFF REQ NO Normal [facility] Comment on above: Performed By: #### D RUGRPD #### [facility] [address] [place] [address] Dr. Qi Benedict MCH (RBC) [Entitic mass] 30.1 pg Normal 26.7-34.0 [facility] Comment on above: Performed By: #### D RUGRPD #### [facility] [address] [place] [address] Dr. Qi Benedict MCHC (RBC) [Mass/Vol] 33.1 g/dL Normal 29.9-35.2 [facility] Comment on above: Performed By: #### D RUGRPD #### [facility] [address] [place] [address] Dr. Qi Benedict MCV (RBC) [Entitic vol] 90.7 fL Normal 81.0-99.0 [facility] Comment on above: Performed By: #### D RUGRPD #### [facility] [address] [place] [address] Dr. Qi Benedict MONO # 0.8 103/ul Normal 0.3-0.8 [facility] Comment on above: Performed By: #### D RUGRPD #### [facility] [address] [place] [address] Dr. Qi Benedict Monocytes/100 WBC (Bld) 7.4 % Normal 1.7-12.0 [facility] Comment on above: Performed By: #### D RUGRPD #### [facility] [address] [place] [address] Dr. Qi Benedict NEUT # 7.7 103/ul Critically high 1.4-6.5 [facility] Comment on above: Performed By: #### D RUGRPD #### [facility] [address] [place] [address] Dr. Qi Benedict Neutrophils/100 WBC (Bld) 75.9 % Critically high 43.0-75.0 [facility] Comment on above: Performed By: #### D RUGRPD #### [facility] [address] [place] [address] Dr. Qi Benedict Platelet mean volume (Bld) [Entitic vol] 10.7 fL Normal 9.5-13.5 [facility] Comment on above: Performed By: #### D RUGRPD #### [facility] [address] [place] [address] Dr. Qi Benedict PLT 247 103/ul Normal 150-450 [facility] Comment on above: Performed By: #### D RUGRPD #### [facility] [address] [place] [address] Dr. Qi Benedict RBC 3.96 106/ul Critically low 4.20-5.40 [facility] Comment on above: Performed By: #### D RUGRPD #### [facility] [address] [place] [address] Dr. Qi Benedict WBC 10.2 103/ul Normal 4.0-11.0 [facility] Comment on above: Performed By: #### D RUGRPD #### [facility] [address] [place] [address] Dr. Qi Benedict [facility] SARS-CoV-2 (COVID-19) RNA STEFANIE+probe Ql (Unsp spec) Not detected Normal NOT DETECTED [facility] Comment on above: Result Comment: When [...] for this test is supported by the [place] of Health and Human Service's declaration that [...] used). Performed By: #### A FPMAT #### [facility] [address] [place] [address] Dr. Qi Benedict DRUG SCREEN RAPID (URINE)on 01-29-2022 AMP Negative Normal NEGATIVE [facility] Comment on above: Performed By: #### D RUGRPD #### [facility] [address] [place] [address] Dr. Qi Benedict BAR Negative Normal NEGATIVE [facility] Comment on above: Performed By: #### D RUGRPD #### [facility] [address] [place] [address] Dr. Qi Benedict BUP Negative Normal NEGATIVE [facility] Comment on above: Performed By: #### D RUGRPD #### [facility] [address] [place] [address] Dr. Qi Benedict BZO Negative Normal NEGATIVE [facility] Comment on above: Performed By: #### D RUGRPD #### [facility] [address] [place] [address] Dr. Qi Benedict GIN Negative Normal NEGATIVE [facility] Comment on above: Performed By: #### D RUGRPD #### [facility] [address] [place] [address] Dr. Qi Benedict CUT-OFFS SEE BELOW Normal [facility] Comment on above: Result Comment: AMP [...] ng/mL Performed By: #### D RUGRPD #### [facility] [address] [place] [address] Dr. Qi Benedict DRUG CUT HEADER DRUG CLASS TEST SYSTEM CUT-OFF CONCENTRATIONS ARE FOLLOWS: Normal [facility] Comment on above: Performed By: #### D RUGRPD #### [facility] [address] [place] [address] Dr. Qi Benedict mAMP Negative Normal NEGATIVE [facility] Comment on above: Performed By: #### D RUGRPD #### [facility] [address] [place] [address] Dr. Qi Benedict MTD Negative Normal NEGATIVE [facility] Comment on above: Performed By: #### D RUGRPD #### [facility] [address] [place] [address] Dr. Qi Benedict OPI Negative Normal NEGATIVE [facility] Comment on above: Performed By: #### D RUGRPD #### [facility] [address] [place] [address] Dr. Qi Benedict OXY Negative Normal NEGATIVE [facility] Comment on above: Performed By: #### D RUGRPD #### [facility] [address] [place] [address] Dr. Qi Benedict PCP Negative Normal NEGATIVE [facility] Comment on above: Performed By: #### D RUGRPD #### [facility] [address] [place] [address] Dr. Qi Benedict PPX Negative Normal NEGATIVE [facility] Comment on above: Performed By: #### D RUGRPD #### [facility] [address] [place] [address] Dr. Qi Benedict TCA Negative Normal NEGATIVE [facility] Comment on above: Performed By: #### D RUGRPD #### [facility] [address] [place] [address] Dr. Qi Benedict THC Positive Abnormal NEGATIVE [facility] Comment on above: Performed By: #### D RUGRPD #### [facility] [address] [place] [address] Dr. Qi Benedict TYPE AND SCREENon 01-29-2022 TYPE AND SCREEN Negative Normal [facility] Comment on above: Performed By: #### T NS #### [facility] [address] [place] [address] Dr. Qi Benedict GROUP B STREP CULTUREon 01-08 S. agalactiae Ag Ql (Unsp spec) Culture Observations: NEGATIVE FOR GROUP B STREPTOCOCCUS. Normal [facility] Comment on above: Performed By: #### G BSCX #### [facility] [address] [place] [address] Dr. Qi Benedict AMNISUREon 01-04-2022 AMNISURE Negative Normal NEGATIVE [facility] Comment on above: Performed By: #### D RUGRPD #### [facility] [address] [place] [address] Dr. Qi Benedict UA (CLEAN/CATCH) HAND INSPECTOR/MICRO I F IND.on 01-04-2022 Bilirubin Ql (U) Negative Normal NEGATIVE [facility] Comment on above: Performed By: #### A FPMAT #### [facility] [address] [place] [address] Dr. Qi Benedict Clarity (U) CLEAR Normal CLEAR [facility] Comment on above: Performed By: #### A FPMAT #### [facility] [address] [place] [address] Dr. Qi Benedict Color (U) YELLOW Normal YELLOW [facility] Comment on above: Performed By: #### A FPMAT #### [facility] [address] [place] [address] Dr. Qi Benedict Glucose Ql (U) 100 mg/dl Abnormal NEGATIVE [facility] Comment on above: Performed By: #### A FPMAT #### [facility] [address] [place] [address] Dr. Qi Benedict Hemoglobin Ql (U) Negative Normal NEGATIVE [facility] Comment on above: Performed By: #### A FPMAT #### [facility] [address] [place] [address] Dr. Qi Benedict Ketones Ql (U) 15 mg/dl Abnormal NEGATIVE [facility] Comment on above: Performed By: #### A FPMAT #### [facility] [address] [place] [address] Dr. Qi Benedict LEUKOCYTES Negative Normal NEGATIVE [facility] Comment on above: Performed By: #### A FPMAT #### [facility] [address] [place] [address] Dr. Qi Benedict Nitrite Ql (U) Negative Normal NEGATIVE [facility] [facility] Comment on above: Performed By: #### A FPMAT #### [facility] [address] [place] [address] Dr. Qi Benedict pH (U) 6.0 [pH] Normal 5-9 [facility] Comment on above: Performed By: #### A FPMAT #### [facility] [address] [place] [address] Dr. Qi Benedict SPEC GRAVITY 1.025 Normal 1.005-<=1.02 5 [facility] Comment on above: Performed By: #### A FPMAT #### [facility] [address] [place] [address] Dr. Qi Benedict UA PROTEIN TRACE Normal NEGATIVE/ TRACE [facility] Comment on above: Performed By: #### A FPMAT #### [facility] [address] [place] [address] Dr. Qi Benedict UR MICRO IND NOT INDICATED Normal [facility] Comment on above: Performed By: #### A FPMAT #### [facility] [address] [place] [address] Dr. Qi Benedict Urobilinogen Qn (U) 0.2 {Yessi'U}/dL Normal 0.2 - 1. 0 [facility] Comment on above: Performed By: #### A FPMAT #### [facility] [address] [address] [address] Qi Benedict US PREG GROWTHon 12-26-2021 [...] LYSSA STEWART Date: 2021-12-26 06:06 Normal [facility] US PREG PLACENTAon US PREG PLACENTA [...] LYSSA STEWART Date: 2021 12:43 Normal [facility] AFP MATERNAL FOR SPINA BIFID Aon 10-05-2021 AFP MoM 1.33 Normal [facility] Comment on above: Performed By: #### A FPMAT #### [facility] [address] [place] [address] Dr. Qi Benedict AFP Value 78.0 ng/mL Normal [facility] Comment on above: Performed By: #### A FPMAT #### [facility] [address] [address] [address] Qi Benedict AFP, Serum for Spina Bifida Report Normal [facility] Comment on above: Performed By: #### A FPMAT #### [facility] [address] [address] [address] Qi Benedict Comment Comment Normal [facility] Comment on above: Result Comment: Pinky Tatum, Ph.D., [facility] Director . References: Available Upon Request. . Multiples Of Median Cutoffs For AFP Elevations Lundberg 2.5 Black 2.8 IDD 2.0 Twins 4.5 Abbreviation Definitions IDD - Insulin Dep Diabetes OSBR - Open Spina Bifida Risk . For further inquiries contact [employer] at [phone]. . This test was developed and its performance characteristics determined by [employer]. It has not been cleared or approved by the Food and Drug Administration. Performed By: #### A FPMAT #### [facility] [address] [address] [address] Qi Prince Age Collection Date 20.7 weeks [facility] Comment on above: Performed By: #### A FPMAT #### [facility] [address] [place] [address] Dr. Qi Benedict Gestat, Age Based on HONEY Normal [facility] Comment on above: Result Comment: 05/2022 Recalculations are not recommended when gestational dating by LMP and ultrasound are within 10 days. Performed By: #### A FPMAT #### [facility] [address] [address] [address] Qi Benedict Insulin Dep Diabetes No Normal [facility] Comment on above: Performed By: #### A FPMAT #### [facility] [address] [place] [address] Dr. Qi Benedict Interpretation Comment Normal [facility] Comment on above: Result Comment: Inte rpretation: [...] Customer Services to discuss available options. The [employer] recommends amniocentesis be offered to women age 35 and older. Performed By: #### A FPMAT #### [facility] [address] [place] [address] Dr. Qi Benedict Maternal Age at HONEY 21.[address] [facility] Comment on above: Performed By: #### A FPMAT #### [facility] [address] [place] [address] Dr. Qi Benedict Multiple Gestation No Normal [facility] Comment on above: Performed By: #### A FPMAT #### [facility] [address] [place] [address] Dr. Qi Benedict OSBR Risk 1 IN 4399 Normal [facility] Comment on above: Performed By: #### A FPMAT #### [facility] [address] [place] [address] Dr. Qi Benedict PDF . Normal [facility] Comment on above: Performed By: #### A FPMAT #### [facility] [address] [place] [address] Dr. Qi Benedict Race Normal [facility] Comment on above: Performed By: #### A FPMAT #### [facility] [address] [place] [address] Dr. Qi Benedict Test Results: Negative Normal [facility] Comment on above: Performed By: #### A FPMAT #### [facility] [address] [place] [address] Dr. Qi Benedict HEP B SURFACE ANTIGEN SCREEN on 09-30-2021 HBsAg Screen Negative Normal Negative [facility] Comment on above: Performed By: #### C BC #### [facility] [address] [place] [address] Dr. Qi Benedict HEPATITIS C VIRUS AB W/ REFL EX QUANTon 09-30-2021 HCV AB <0.1 Normal 0.0-0.9 [facility] Comment on above: Performed By: #### H CVPCRR #### [facility] [address] [address] [address] Qi Benedict Interpretation: Comment Normal [facility] Comment on above: Result Comment: Nega tive Not infected with HCV, unless recent infection is suspected or other evidence exists to indicate HCV infection. Performed By: #### H CVPCRR #### [facility] [address] [place] [address] Dr. Qi Benedict HIV 1 AND 2 WITH REFLEXon HIV Screen 4th Generation wRfx Non-Reactive Normal Non Reactive [facility] Comment on above: Result Comment: HIV Negative HIV-1/HIV-2 antibodies and HIV-1 p24 antigen were NOT detected. There is no laboratory evidence of HIV infection. Performed By: #### D RUGRPD #### [facility] [address] [place] [address] Dr. Qi Benedict RPR QUANTon 09-30-2021 Rapid Plasma Reagin, Quant Non-Reactive Normal NonRea<1:1 [facility] Comment on above: Result Comment: Plea se Note: This test does not meet current guidelines for screening and diagnosis of syphilis. This test is intended for following treatment response in patients being treated for syphilis infection. To screen for syphilis infection, a reflex cascade that includes both RPR and a treponema-specific assay should be utilized, such as Treponema pallidum (Syphilis) Screening [place] (852839) or Rapid Plasma Reagin (RPR) Test With Reflex to Quantitative RPR and Confirmatory Treponema pallidum Antibodies (257684). Performed By: #### R PRQ #### [facility] [address] [place] [address] Dr. Qi Benedict RUBELLA AB IGGon 09-30-2021 Rubella Antibodies, IgG 1.44 index Normal Immune >0.99 [facility] Comment on above: Result Comment: Non- immune <0.90 Equivocal 0.90 - 0.99 Immune >0.99 Performed By: #### D RUGRPD #### [facility] [address] [place] [address] Dr. Qi Benedict VARICELLA IGG ABon 2 Varicella Zoster IgG <135 Critically low Immune >165 [facility] Comment on above: Result Comment: Nega tive <135 Equivocal 135 - 165 Positive >165 A positive result generally indicates exposure to the pathogen or administration of specific immunoglobulins, but it is not indication of active infection or stage of disease. Performed By: #### V ARCEL #### [facility] [address] [place] [address] Dr. Qi Benedict CBC AUTO DIFFon 09-29-2021 BASO # 0.0 103/ul Normal 0.0-0.1 [facility] Comment on above: Performed By: #### C BC #### [facility] [address] [place] [address] Dr. Qi Benedict Basophils/100 WBC (Bld) 0.3 % Normal 0.2-2.0 [facility] Comment on above: Performed By: #### C BC #### [facility] [address] [place] [address] Dr. Qi Benedict EO # 0.1 103/ul Normal 0.0-0.7 [facility] Comment on above: Performed By: #### C BC #### [facility] [address] [place] [address] Dr. Qi Benedict Eosinophils/100 WBC (Bld) 1.1 % Normal 0.9-7.0 [facility] Comment on above: Performed By: #### C BC #### [facility] [address] [place] [address] Dr. Qi Benedict Erythrocyte distribution width (RBC) [Ratio] 12.7 % Normal 11.0-15.0 [facility] Comment on above: Performed By: #### C BC #### [facility] [address] [place] [address] Dr. Qi Benedict Hematocrit (Bld) [Volume fraction] 35.7 % Critically low 36.0-48.0 [facility] Comment on above: Performed By: #### C BC #### [facility] [address] [address] [address] Qi Benedict Hemoglobin (Bld) [Mass/Vol] 11.9 g/dL Critically low 12.0-16.0 [facility] Comment on above: Performed By: #### C BC #### [facility] [address] [place] [address] Dr. Qi Benedict IG # 0.04 10e3/ul Critically high 0.00-0.03 [facility] Comment on above: Performed By: #### C BC #### [facility] [address] [place] [address] Dr. Qi Benedict IG % 0.4 % Normal 0.0-0.5 [facility] Comment on above: Performed By: #### C BC #### [facility] [address] [place] [address] Dr. Qi Benedict LYMPH # 1.5 103/ul Normal 1.2-3.8 [facility] Comment on above: Performed By: #### C BC #### [facility] [address] [place] [address] Dr. Qi Benedict Lymphocytes/100 WBC (Bld) 14.1 % Critically low 20.5-60.0 [facility] Comment on above: Performed By: #### C BC #### [facility] [address] [place] [address] Dr. Qi Benedict MANUAL DIFF REQ NO Normal [facility] Comment on above: Performed By: #### C BC #### [facility] [address] [place] [address] Dr. Qi Benedict MCH (RBC) [Entitic mass] 31.6 pg Normal 26.7-34.0 [facility] Comment on above: Performed By: #### C BC #### [facility] [address] [place] [address] Dr. Qi Benedict MCHC (RBC) [Mass/Vol] 33.3 g/dL Normal 29.9-35.2 [facility] Comment on above: Performed By: #### C BC #### [facility] [address] [address] [address] Qi Benedict MCV (RBC) [Entitic vol] 94.7 fL Normal 81.0-99.0 [facility] Comment on above: Performed By: #### C BC #### [facility] [address] [address] [address] Qi Benedict MONO # 0.5 103/ul Normal 0.3-0.8 [facility] Comment on above: Performed By: #### C BC #### [facility] [address] [address] [address] Qi Benedict Monocytes/100 WBC (Bld) 5.0 % Normal 1.7-12.0 [facility] Comment on above: Performed By: #### C BC #### [facility] [address] [place] [address] Dr. Qi Benedict NEUT # 8.2 103/ul Critically high 1.4-6.5 [facility] Comment on above: Performed By: #### C BC #### [facility] [address] [place] [address] Dr. iQ Benedict Neutrophils/100 WBC (Bld) 79.1 % Critically high 43.0-75.0 [facility] Comment on above: Performed By: #### C BC #### [facility] [address] [place] [address] Dr. Qi Benedict Platelet mean volume (Bld) [Entitic vol] 9.7 fL Normal 9.5-13.5 [facility] Comment on above: Performed By: #### C BC #### [facility] [address] [place] [address] Dr. Qi Benedict PLT 200 103/ul Normal 150-450 [facility] Comment on above: Performed By: #### C BC #### [facility] [address] [place] [address] Dr. Qi Benedict RBC 3.77 106/ul Critically low 4.20-5.40 [facility] Comment on above: Performed By: #### C BC #### [facility] [address] [place] [address] Dr. Qi Benedict WBC 10.4 103/ul Normal 4.0-11.0 [facility] Comment on above: Performed By: #### C BC #### [facility] [address] [address] [address] Qi Benedict CULTURE URINEon 09-29-2021 CULTURE URINE Culture Observations : NO GROWTH. Normal [facility] Comment on above: Performed By: #### A FPMAT #### [facility] [address] [place] [address] Dr. Qi Benedict GLYCOHEMOGLOBIN A1Con 2021 ADA RECOMMENDATION SEE BELOW Normal [facility] Comment on above: Result Comment: ADA RECOMMENDED LIMIT 4.0 - 6.0 ADA THERAPEUTIC TARGET < 7.0 ACTION SUGGESTED > 7.0 Performed By: #### D RUGRPD #### [facility] [address] [place] [address] Dr. Qi Benedict Glucose [Mass/Vol] 82 mg/dL Normal [facility] Comment on above: Performed By: #### D RUGRPD #### [facility] [address] [place] [address] Dr. Qi Benedict HbA1c (Bld) [Mass fraction] 4.5 % Normal 4.5-6.2 [facility] Comment on above: Performed By: #### D RUGRPD #### [facility] [address] [place] [address] Dr. Qi Benedict TANESHA BOX TEST PT SEND OUTo n 09-29-2021 SENT TO REF LAB 09/29/2021 Normal [facility] Comment on above: Performed By: #### A FPMAT #### [facility] [address] [place] [address] Dr. Qi Benedict TYPE AND SCREENon 09-29-2021 TYPE AND SCREEN Negative Normal [facility] Comment on above: Performed By: #### A FPMAT #### [facility] [address] [place] [address] Dr. Qi Benedict US PREG ANATOMY SINGLEon [...] LYSSA STEWART Date: 2021-09-25 22:35 Normal [facility] CBC AUTO DIFFon 08-29-2021 BASO # 0.0 103/ul Normal 0.0-0.1 [facility] Comment on above: Performed By: #### C BC #### [facility] [address] [address] [address] Qi Benedict Basophils/100 WBC (Bld) 0.3 % Normal 0.2-2.0 [facility] Comment on above: Performed By: #### C BC #### [facility] [address] [address] [address] Qi Benedict EO # 0.1 103/ul Normal 0.0-0.7 [facility] Comment on above: Performed By: #### C BC #### [facility] [address] [place] [address] Dr. Qi Benedict Eosinophils/100 WBC (Bld) 1.1 % Normal 0.9-7.0 [facility] Comment on above: Performed By: #### C BC #### [facility] [address] [place] [address] Dr. Qi Beneditc Erythrocyte distribution width (RBC) [Ratio] 13.2 % Normal 11.0-15.0 [facility] Comment on above: Performed By: #### C BC #### [facility] [address] [place] [address] Dr. Qi Benedict Hematocrit (Bld) [Volume fraction] 36.5 % Normal 36.0-48.0 [facility] Comment on above: Performed By: #### C BC #### [facility] [address] [place] [address] Dr. Qi Benedict Hemoglobin (Bld) [Mass/Vol] 12.4 g/dL Normal 12.0-16.0 [facility] Comment on above: Performed By: #### C BC #### [facility] [address] [place] [address] Dr. Qi Benedict IG # 0.03 10e3/ul Normal 0.00-0.03 [facility] Comment on above: Performed By: #### C BC #### [facility] [address] [place] [address] Dr. Qi Benedict IG % 0.3 % Normal 0.0-0.5 [facility] Comment on above: Performed By: #### C BC #### [facility] [address] [place] [address] Dr. Qi Benedict LYMPH # 1.3 103/ul Normal 1.2-3.8 [facility] Comment on above: Performed By: #### C BC #### [facility] [address] [place] [address] Dr. Qi Benedict Lymphocytes/100 WBC (Bld) 13.4 % Critically low 20.5-60.0 [facility] Comment on above: Performed By: #### C BC #### [facility] [address] [place] [address] Dr. Qi Benedict MANUAL DIFF REQ NO Normal [facility] Comment on above: Performed By: #### C BC #### [facility] [address] [place] [address] Dr. Qi Benedict MCH (RBC) [Entitic mass] 31.2 pg Normal 26.7-34.0 [facility] Comment on above: Performed By: #### C BC #### [facility] [address] [place] [address] Dr. Qi Benedict MCHC (RBC) [Mass/Vol] 34.0 g/dL Normal 29.9-35.2 [facility] Comment on above: Performed By: #### C BC #### [facility] [address] [place] [address] Dr. Qi Benedict MCV (RBC) [Entitic vol] 91.9 fL Normal 81.0-99.0 [facility] Comment on above: Performed By: #### C BC #### [facility] [address] [place] [address] Dr. Qi Benedict MONO # 0.5 103/ul Normal 0.3-0.8 [facility] Comment on above: Performed By: #### C BC #### [facility] [address] [place] [address] Dr. Qi Benedict Monocytes/100 WBC (Bld) 5.3 % Normal 1.7-12.0 [facility] Comment on above: Performed By: #### C BC #### [facility] [address] [place] [address] Dr. Qi Benedict NEUT # 7.6 103/ul Critically high 1.4-6.5 [facility] Comment on above: Performed By: #### C BC #### [facility] [address] [place] [address] Dr. Qi Benedict Neutrophils/100 WBC (Bld) 79.6 % Critically high 43.0-75.0 [facility] Comment on above: Performed By: #### C BC #### [facility] [address] [address] [address] Qi Benedict Platelet mean volume (Bld) [Entitic vol] 9.5 fL Normal 9.5-13.5 [facility] Comment on above: Performed By: #### C BC #### [facility] [address] [address] [address] Qi Benedict PLT 229 103/ul Normal 150-450 [facility] Comment on above: Performed By: #### C BC #### [facility] [address] [address] [address] Qi Benedict RBC 3.97 106/ul Critically low 4.20-5.40 [facility] Comment on above: Performed By: #### C BC #### [facility] [address] [place] [address] Dr. Qi Benedict WBC 9.5 103/ul Normal 4.0-11.0 [facility] Comment on above: Performed By: #### C BC #### [facility] [address] [address] [address] Qi Benedict [facility] SARS-CoV-2 (COVID-19) RNA STEFANIE+probe Ql (Unsp spec) Not detected Normal NOT DETECTED [facility] Comment on above: Result Comment: When [...] for this test is supported by the [place] of Health and Human Service's declaration that [...] used). Performed By: #### C VDTBH #### [facility] [address] [place] [address] Dr. Qi HUGHES URINE PROFILEon 2 Bilirubin Ql (U) Negative Normal NEGATIVE [facility] Comment on above: Performed By: #### D RUGRPD #### [facility] [address] [place] [address] Dr. Qi Benedict Clarity (U) CLEAR Normal CLEAR [facility] Comment on above: Performed By: #### D RUGRPD #### [facility] [address] [place] [address] Dr. Qi Benedict Color (U) YELLOW Normal YELLOW [facility] Comment on above: Performed By: #### D RUGRPD #### [facility] [address] [place] [address] Dr. Qi TOWNSEND A micrscopic examination will be performed if indicated. Normal [facility] Comment on above: Performed By: #### D RUGRPD #### [facility] [address] [place] [address] Dr. Qi Benedict Glucose Ql (U) Negative Normal NEGATIVE [facility] Comment on above: Performed By: #### D RUGRPD #### [facility] [address] [place] [address] Dr. Qi Benedict Hemoglobin Ql (U) Negative Normal NEGATIVE [facility] Comment on above: Performed By: #### D RUGRPD #### [facility] [address] [place] [address] Dr. Qi Benedict Ketones Ql (U) Negative Normal NEGATIVE [facility] Comment on above: Performed By: #### D RUGRPD #### [facility] [address] [place] [address] Dr. Qi Benedict LEUKOCYTES Negative Normal NEGATIVE [facility] Comment on above: Performed By: #### D RUGRPD #### [facility] [address] [place] [address] Dr. Qi Benedict Nitrite Ql (U) Negative Normal NEGATIVE [facility] Comment on above: Performed By: #### D RUGRPD #### [facility] [address] [address] [address] Qi Benedict pH (U) 6.0 [pH] Normal 5-9 [facility] Comment on above: Performed By: #### D RUGRPD #### [facility] [address] [place] [address] Dr. Qi Benedict SPEC GRAVITY 1.025 Normal 1.005-<=1.02 5 [facility] Comment on above: Performed By: #### D RUGRPD #### [facility] [address] [place] [address] Dr. Qi Benedict UA PROTEIN Negative Normal NEGATIVE/ TRACE [facility] Comment on above: Performed By: #### D RUGRPD #### [facility] [address] [place] [address] Dr. Qi Benedict UR MICRO IND NOT INDICATED Normal [facility] Comment on above: Performed By: #### D RUGRPD #### [facility] [address] [place] [address] Dr. Qi Benedict Urobilinogen Qn (U) 0.2 {Yessi'U}/dL Normal 0.2 - 1. 0 [facility] Comment on above: Performed By: #### D RUGRPD #### [facility] [address] [place] [address] Dr. Qi Benedict PROF 14(COMP METB)on 022 Albumin [Mass/Vol] 2.9 g/dL Critically low 3.4-5.0 [facility] Comment on above: Performed By: #### D RUGRPD #### [facility] [address] [place] [address] Dr. Qi Benedict Albumin/Globulin [Mass ratio] 0.8 {ratio} Normal [facility] Comment on above: Performed By: #### D RUGRPD #### [facility] [address] [place] [address] Dr. Qi Benedict ALP [Catalytic activity/Vol] 43 U/L Critically low 46-116 [facility] Comment on above: Performed By: #### D RUGRPD #### [facility] [address] [address] [address] Qi Benedict ALT [Catalytic activity/Vol] 13 U/L Critically low 14-59 [facility] Comment on above: Performed By: #### D RUGRPD #### [facility] [address] [address] [address] Qi Benedict Anion gap [Moles/Vol] 10.6 mmol/L Normal [facility] Comment on above: Performed By: #### D RUGRPD #### [facility] [address] [address] [address] Qi Benedict AST [Catalytic activity/Vol] 9 U/L Critically low 15-37 [facility] Comment on above: Performed By: #### D RUGRPD #### [facility] [address] [address] [address] Qi Benedict Bilirubin [Mass/Vol] 0.4 mg/dL Normal 0.2-1.0 [facility] Comment on above: Performed By: #### D RUGRPD #### [facility] [address] [address] [address] Qi Benedict Calcium [Mass/Vol] 8.5 mg/dL Normal 8.5-10.1 [facility] Comment on above: Performed By: #### D RUGRPD #### [facility] [address] [address] [address] Qi Benedict Chloride [Moles/Vol] 104 mmol/L Normal 98-107 [facility] Comment on above: Performed By: #### D RUGRPD #### [facility] [address] [address] [address] Qi Benedict CO2 [Moles/Vol] 27.0 mmol/L Normal 21.0-32.0 [facility] Comment on above: Performed By: #### D RUGRPD #### [facility] [address] [address] Dr. Qi Benedict Creatinine [Mass/Vol] 0.61 mg/dL Normal 0.55-1.02 [facility] Comment on above: Performed By: #### D RUGRPD #### [facility] [address] [address] [address] Qi Benedict EGFR-AF DUTCH >60 Normal >=60 [facility] Comment on above: Performed By: #### D RUGRPD #### [facility] [address] [address] [address] Qi Benedict EGFR-NON AF DUTCH >60 Normal >=60 [facility] Comment on above: Performed By: #### D RUGRPD #### [facility] [address] [address] [address] Qi Benedict Globulin (S) [Mass/Vol] 3.6 g/dL Normal [facility] Comment on above: Performed By: #### D RUGRPD #### [facility] [address] [address] [address] Qi Benedict Glucose [Mass/Vol] 83 mg/dL Normal 74-106 [facility] Comment on above: Performed By: #### D RUGRPD #### [facility] [address] [address] [address] Qi Benedict Potassium [Moles/Vol] 3.6 mmol/L Normal 3.5-5.1 [facility] Comment on above: Performed By: #### D RUGRPD #### [facility] [address] [address] [address] Qi Benedict Protein [Mass/Vol] 6.5 g/dL Normal 6.4-8.2 [facility] Comment on above: Performed By: #### D RUGRPD #### [facility] [address] [address] [address] Qi Benedict Sodium [Moles/Vol] 138 mmol/L Normal 136-145 [facility] Comment on above: Performed By: #### D RUGRPD #### [facility] [address] [address] [address] Qi Benedict Urea nitrogen [Mass/Vol] 10.0 mg/dL Normal 7.0-18.0 [facility] Comment on above: Performed By: #### D RUGRPD #### [facility] [address] [place], [place] [address] Dr. Qi Benedict Urea nitrogen/Creatinine [Mass ratio] 16.4 mg/mg Normal [facility] Comment on above: Performed By: #### D RUGRPD #### [facility] [address] [place], [place] [address] Dr. Qi Benedict HCG, ,Urineon 05-31 Beta HCG ( test) Ql (U) Negative Normal NEG [facility] Comment on above: Result Comment: Spec imens with hCG levels near the threshold of the test (25 mIU/mL) may give a negative or indeterminate result. In such cases, another test should be performed with a new specimen in 48-72 hours. If early is suspected clinically in this setting, correlation with quantitative serum b-hCG level is suggested. Performed By: #### U HCG #### [place] [id number] Lathe Spotter: Ketan Lares MD Otheron 06-01-2019 No acute osseous abnormality in the right ankle No acute osseous abnormality in the thoracic spine. [employer] EXAMINATION: THREE XRAY VIEWS OF THE RIGHT [...] loss of height. There is no fracture [facility] Jul[facility], [facility]pn Incoming Radiant Results From [employer] - 06/01/2019 3:36 PM EDT EXAMINATION: THREE [...] acute osseous abnormality in the thoracic spine. [place], [place] , Urineon 0 Beta HCG ( test) Ql (U) Negative NEGATIVE [place], [place] Comment on above: Specimens with hCG [...] Ann-Marie Medrano MD 06/01/19 Final result Normal [facility] XR THORACIC SPINE (3 VIEWS)o n 06-01-2019 [...] Ann-Marie Medrano MD 06/01/19 Final result Normal [facility] XR ANKLE RIGHT (MIN 3 VIEWS) on [...] Judah Swift MD 05/25/19 Final result Normal [facility] No fracture or dislocation. [facility] XRAY VIEWS OF THE RIGHT ANKLE 05/25/2019 12:05 am COMPARISON: 09/12/2018 HISTORY: ORDERING SYSTEM PROVIDED HISTORY: Fall TECHNOLOGIST PROVIDED HISTORY: Fall Reason for Exam: Diffuse right ankle pain Acuity: Acute Type of Exam: Initial Mechanism of Injury: fall FINDINGS: No fracture, dislocation, or focal osseous lesion is noted. No significant soft tissue abnormality seen. [facility] Incoming Radiant Results From [employer] - 05/25/2019 12:15 AM EDT EXAMINATION: THREE [...] abnormality seen. IMPRESSION: No fracture or dislocation. [place], [place] HCG, Quanton 05-16-2019 HCG, Quant <1 Normal <5 [facility] Comment on above: Result Comment: Non-preg premeno <=5 Postmeno <=8 Male <=3 If HCG results do not concur with clinical observations, additional testing to confirm results is recommended. Elevated results not associated with may be found in patients with other diseases such as tumors of the germ cells (testis, ovaries, etc.), bladder, pancreas, stomach, lungs, and liver. Performed By: #### B HCG #### [employer] [id number] [place] [address] Lathe Spotter: Torsten Philip MD HCG, Quantitative, on 05-15-2019 hCG Quant <1 <5 IU/L [place], [place] Comment on above: Non-preg premeno <=5 [...] Theo Dolan MD 03/12/19 Final result Normal [facility] CBC with Diffon 01-08-2019 Abs. Basophil 0.10 k/uL Normal 0.0-0.2 [facility] Comment on above: Performed By: #### C DP, HCG, LIP, CP, TROPI, DIME #### [facility] [address] [facility] [place] [address] Lathe Spotter: Jeremie Gross DO Abs.Neutrophil (Seg) 5.00 k/uL Normal 1.3-9.1 [facility] Comment on above: Performed By: #### C DP, HCG, LIP, CP, TROPI, DIME #### [facility] [address] [facility] [place] [address] Lathe Spotter: Jeremie Gross DO Basophils/100 WBC (Bld) 1 % Normal 0-2 [facility] Comment on above: Performed By: #### C DP, HCG, LIP, CP, TROPI, DIME #### [facility] [place] [address] Lathe Spotter: Jeremie Gross DO Eosinophils (Bld) [#/Vol] 0.30 10*3/uL Normal 0.0-0.4 [facility] Comment on above: Performed By: #### C DP, HCG, LIP, CP, TROPI, DIME #### [facility] [place] [address] Lathe Spotter: Jeremie Gross DO Eosinophils/100 WBC (Bld) 3 % Normal 0-4 [facility] Comment on above: Performed By: #### C DP, HCG, LIP, CP, TROPI, DIME #### [facility] [place] [address] Lathe Spotter: Jeremie Gross DO Erythrocyte distribution width (RBC) [Ratio] 12.9 % Normal 11.5-14.9 [facility] Comment on above: Performed By: #### C DP, HCG, LIP, CP, TROPI, DIME #### [facility] [address] [place] [address] Lathe Spotter: Jeremie Gross DO Hematocrit (Bld) [Volume fraction] 43.0 % Normal 36-46 [facility] Comment on above: Performed By: #### C DP, HCG, LIP, CP, TROPI, DIME #### [facility] [address] [place] [address] Lathe Spotter: Jeremie Gross DO Hemoglobin (Bld) [Mass/Vol] 14.6 g/dL Normal 12.0-16.0 [facility] Comment on above: Performed By: #### C DP, HCG, LIP, CP, TROPI, DIME #### [facility] [address] [facility] [place] [address] Lathe Spotter: Jeremie Gross DO Lymphocytes (Bld) [#/Vol] 3.10 10*3/uL Normal 1.2-5.2 [facility] Comment on above: Performed By: #### C DP, HCG, LIP, CP, TROPI, DIME #### [facility] [address] [facility] [place] [address] Lathe Spotter: Jeremie Gross DO Lymphocytes/100 WBC (Bld) 34 % Normal 25-45 [facility] Comment on above: Performed By: #### C DP, HCG, LIP, CP, TROPI, DIME #### [facility] [address] [place] [address] Lathe Spotter: Jeremie Gross DO MCH (RBC) [Entitic mass] 30.9 pg Normal 26-34 [facility] Comment on above: Performed By: #### C DP, HCG, LIP, CP, TROPI, DIME #### [facility] [address] [place] [address] Lathe Spotter: Jeremie Gross DO MCHC (RBC) [Mass/Vol] 33.9 g/dL Normal 31-37 [facility] Comment on above: Performed By: #### C DP, HCG, LIP, CP, TROPI, DIME #### [facility] [address] [place] [address] Lathe Spotter: Jeremie Gross DO MCV (RBC) [Entitic vol] 91.1 fL Normal 80-100 [facility] Comment on above: Performed By: #### C DP, HCG, LIP, CP, TROPI, DIME #### [facility] [address] [place] [address] Lathe Spotter: Jeremie Gross DO Monocytes (Bld) [#/Vol] 0.70 10*3/uL Normal 0.1-1.3 [facility] Comment on above: Performed By: #### C DP, HCG, LIP, CP, TROPI, DIME #### [facility] [address] [facility] [place] [address] Lathe Spotter: Jeremie Gross DO Monocytes/100 WBC (Bld) 8 % Normal 2-8 [facility] Comment on above: Performed By: #### C DP, HCG, LIP, CP, TROPI, DIME #### [facility] [place] [address] Lathe Spotter: Jeremie Gross DO Neutrophil (Seg) 54 % Normal 34-64 [facility] Comment on above: Performed By: #### C DP, HCG, LIP, CP, TROPI, DIME #### [facility] [place] [address] Lathe Spotter: Jeremie Gross DO Platelet mean volume (Bld) [Entitic vol] 7.8 fL Normal 6.0-12.0 [facility] Comment on above: Performed By: #### C DP, HCG, LIP, CP, TROPI, DIME #### [facility] [address] [facility] [place] [address] Lathe Spotter: Jeremie Gross DO Platelets (Bld) [#/Vol] 245 10*3/uL Normal 150-450 [facility] Comment on above: Performed By: #### C DP, HCG, LIP, CP, TROPI, DIME #### [facility] [address] [place] [address] Lathe Spotter: Jeremie Gross DO RBC (Bld) [#/Vol] 4.71 10*6/uL Normal 4.0-5.2 [facility] Comment on above: Performed By: #### C DP, HCG, LIP, CP, TROPI, DIME #### [facility] [address] [place] [address]. [place] [address] Lathe Spotter: Jeremie Gross DO WBC (Bld) [#/Vol] 9.2 10*3/uL Normal 4.5-13.5 [facility] Comment on above: Performed By: #### C DP, HCG, LIP, CP, TROPI, DIME #### [facility] [place] [address] Lathe Spotter: Jeremie Gross DO Abs.Imm.Granulocyte NOT REPORTED Normal 0.00-0.30 [facility] Comment on above: Performed By: #### C DP, HCG, LIP, CP, TROPI, DIME #### [facility] [address] [place] [address] Lathe Spotter: Jeremie Gross DO Auto Diff Performed NOT REPORTED Normal [facility] Comment on above: Performed By: #### C DP, HCG, LIP, CP, TROPI, DIME #### [facility] [place] [address] Lathe Spotter: Jreemie Gross DO NRBC Automated NOT REPORTED Normal [facility] Comment on above: Performed By: #### C DP, HCG, LIP, CP, TROPI, DIME #### [facility] [address] [place] [address] Lathe Spotter: Jeremie Gross DO Comp Metabolic Profon 2018 Bilirubin Ql (U) <0.15 Low 0.3-1.2 [facility] Comment on above: Performed By: #### C DP, HCG, LIP, CP, TROPI, DIME #### [facility] [address] [facility] [place] [address] Lathe Spotter: Jeremie Gross DO (cont.) Normal [facility] Comment on above: Result Comment: Aver age GFR for <20 years old not available. Chronic Kidney Disease: <60 mL/min/1.73sq m Kidney failure: <15 mL/min/1.73sq m eGFR calculated using average adult body mass. Additional eGFR calculator available at: http://www.[employer].BuyMyTronics.com/multiple_crcl_2012.htm Performed By: #### C DP, HCG, LIP, CP, TROPI, DIME #### [facility] [address] [facility] [place] [address] Lathe Spotter: Jeremie Gross DO Albumin [Mass/Vol] 4.3 g/dL Normal 3.5-5.2 [facility] Comment on above: Performed By: #### C DP, HCG, LIP, CP, TROPI, DIME #### [facility] [address] [facility] [place] [address] Lathe Spotter: Jeremie Gross DO Alkaline Phos 86 U/L Normal 35-104 [facility] Comment on above: Performed By: #### C DP, HCG, LIP, CP, TROPI, DIME #### [facility] [address] [place] [address] Lathe Spotter: Jeremie Gross DO ALT [Catalytic activity/Vol] 9 U/L Normal 5-33 [facility] Comment on above: Performed By: #### C DP, HCG, LIP, CP, TROPI, DIME #### [facility] [address] [place] [address] Lathe Spotter: Jeremie Gross DO Anion gap [Moles/Vol] 11 mmol/L Normal 9-17 [facility] Comment on above: Performed By: #### C DP, HCG, LIP, CP, TROPI, DIME #### [facility] [address] [place] [address] Lathe Spotter: Jeremie Gross DO AST [Catalytic activity/Vol] 12 U/L Normal <32 [facility] Comment on above: Performed By: #### C DP, HCG, LIP, CP, TROPI, DIME #### [facility] [address] [place] [address] Lathe Spotter: Jeremie Gross DO Calcium [Mass/Vol] 9.3 mg/dL Normal 8.6-10.4 [facility] Comment on above: Performed By: #### C DP, HCG, LIP, CP, TROPI, DIME #### [facility] [address] [place] [address] Lathe Spotter: Jeremie Gross DO Chloride [Moles/Vol] 104 mmol/L Normal 98-107 [facility] Comment on above: Performed By: #### C DP, HCG, LIP, CP, TROPI, DIME #### [facility] [address] [place] [address] Lathe Spotter: Jeremie Gross DO CO2 [Moles/Vol] 25 mmol/L Normal 20-31 [facility] Comment on above: Performed By: #### C DP, HCG, LIP, CP, TROPI, DIME #### [facility] [address] [place] [address] Lathe Spotter: Jeremie Gross DO Creatinine [Mass/Vol] 0.53 mg/dL Normal 0.50-0.90 [facility] Comment on above: Performed By: #### C DP, HCG, LIP, CP, TROPI, DIME #### [facility] [address] [facility] [place] [address] Lathe Spotter: Jeremie Gross DO GFR,non Amer Pediatric GFR requires additional information. Refer to NKDEP website for Normal >60 [facility] Comment on above: Result Comment: calc ulator. Performed By: #### C DP, HCG, LIP, CP, TROPI, DIME #### [facility] [address] [facility] [place] [address] Lathe Spotter: Jeremie Gross DO Glucose [Mass/Vol] 86 mg/dL Normal 70-99 [facility] Comment on above: Performed By: #### C DP, HCG, LIP, CP, TROPI, DIME #### [facility] [place] [address] Lathe Spotter: Jeremie Gross DO Potassium [Moles/Vol] 3.7 mmol/L Normal 3.7-5.3 [facility] Comment on above: Performed By: #### C DP, HCG, LIP, CP, TROPI, DIME #### [facility] [address] [facility] [place] [address] Lathe Spotter: Jeremie Gross DO Protein [Mass/Vol] 7.4 g/dL Normal 6.4-8.3 [facility] Comment on above: Performed By: #### C DP, HCG, LIP, CP, TROPI, DIME #### [facility] [address] [facility] [place] [address] Lathe Spotter: Jeremie Gross DO Sodium [Moles/Vol] 140 mmol/L Normal 135-144 [facility] Comment on above: Performed By: #### C DP, HCG, LIP, CP, TROPI, DIME #### [facility] [address] [facility] [place] [address] Lathe Spotter: Jeremie Gross DO Urea nitrogen [Mass/Vol] 18 mg/dL Normal 6-20 [facility] Comment on above: Performed By: #### C DP, HCG, LIP, CP, TROPI, DIME #### [facility] [place] [address] Lathe Spotter: Jeremie Gross DO GFR, Amer NOT REPORTED Normal >60 [facility] Comment on above: Performed By: #### C DP, HCG, LIP, CP, TROPI, DIME #### [facility] [address] [facility] [place] [address] Lathe Spotter: Jeremie Gross DO Staging: NOT REPORTED Normal [facility] Comment on above: Performed By: #### C DP, HCG, LIP, CP, TROPI, DIME #### [facility] [place] [address] Lathe Spotter: Jeremie Gross DO D-Dimer Teston 01-08-2019 D-Dimer Test 0.34 mg/L FEU Normal 0.00-0.59 [facility] Comment on above: Result Comment: When combined [...] DP, HCG, LIP, CP, TROPI, DIME #### [facility] [address] [facility] [place] [address] Lathe Spotter: Jeremie Gross DO HCG Screen, Bloodon 01-09-20 19 HCG Qn Negative Normal NEG [facility] Comment on above: Result Comment: Spec imens [...] DP, HCG, LIP, CP, TROPI, DIME #### [facility] [address] [facility] [place] [address] Lathe Spotter: Jeremie Gross DO Lipaseon 01-08-2019 Lipase [Catalytic activity/Vol] 28 U/L Normal 13-60 [facility] Comment on above: Performed By: #### C DP, HCG, LIP, CP, TROPI, DIME #### [facility] [address] [facility] [place] [address] Lathe Spotter: Jeremie Gross DO Troponinon 01-08-2019 Troponin I.cardiac [Mass/Vol] ng/mL Normal 0-14 [facility] Comment on above: Result Comment: High Sensitivity Troponin values cannot be compared with other Troponin methodologies. Patients with high levels of Biotin oral intake (i.e >5mg/day) may have falsely decreased Troponin levels. Samples collected within 8 hours of biotin intake may require additional information for diagnosis. Performed By: #### U HCG, UAX #### [facility] [address] [facility] [place] [address] Lathe Spotter: Jeremie Gross DO Troponin I.cardiac [Mass/Vol] NOT REPORTED Normal <0.03 [facility] Comment on above: Performed By: #### U HCG, UAX #### [facility] [address] [facility] [place] [address] Lathe Spotter: Jeremie Gross DO Performed By: #### C DP, HCG, LIP, CP, TROPI, DIME #### [facility] [address] [facility] [place] [address] Lathe Spotter: Jeremie Gross DO Troponin I.cardiac [Mass/Vol] ng/mL Normal 0-14 [facility] Comment on above: Result Comment: High Sensitivity Troponin values cannot be compared with other Troponin methodologies. Patients with high levels of Biotin oral intake (i.e >5mg/day) may have falsely decreased Troponin levels. Samples collected within 8 hours of biotin intake may require additional information for diagnosis. Performed By: #### C DP, HCG, LIP, CP, TROPI, DIME #### [facility] [address] [facility] [place] [address] Lathe Spotter: Jeremie Gross DO UA w/Reflex Cultureon 2018 Acetoacetic Acid,Ur Negative Normal NEG [facility] Comment on above: Performed By: #### U HCG, UAX #### [facility] [address] [place] [address] Lathe Spotter: Jeremie Gross DO Bilirubin, SemiQt,Ur Negative Normal NEG [facility] Comment on above: Performed By: #### U HCG, UAX #### [facility] [place] [address] Lathe Spotter: Jeremie Gross DO Color (U) YELLOW Normal YEL [facility] Comment on above: Performed By: #### U HCG, UAX #### [facility] [address] [place] [address] Lathe Spotter: Jeremie Gross DO Glucose Ql (U) Negative Normal NEG [facility] Comment on above: Performed By: #### U HCG, UAX #### [facility] [address] [place] [address] Lathe Spotter: Jeremie Gross DO Hemoglobin, Ur Negative Normal NEG [facility] Comment on above: Performed By: #### U HCG, UAX #### [facility] [address] [place] [address] Lathe Spotter: Jeremie Gross DO Leukocyte esterase Test strip Ql (U) Negative Normal NEG [facility] Comment on above: Performed By: #### U HCG, UAX #### [facility] [address] [place] [address] Lathe Spotter: Jeremie Gross DO Nitrite,Ur Negative Normal NEG [facility] Comment on above: Performed By: #### U HCG, UAX #### [facility] [address] [place] [address] Lathe Spotter: Jeremie Gross DO pH (U) 6.5 [pH] Normal 5.0-8.0 [facility] Comment on above: Performed By: #### U HCG, UAX #### [facility] [address] [place] [address] Lathe Spotter: Jeremie Gross DO Protein Ql (U) Negative Normal NEG [facility] Comment on above: Performed By: #### U HCG, UAX #### [facility] [place] [address] Lathe Spotter: Jeremie Gross DO Specific gravity (U) [Rel density] 1.024 Normal 1.000-1.030 [facility] Comment on above: Performed By: #### U HCG, UAX #### [facility] [address] [place] [address] Lathe Spotter: Jeremie Gross DO Turbidity CLOUDY Abnormal CLEAR [facility] Comment on above: Performed By: #### U HCG, UAX #### [facility] [address] [place] [address] Lathe Spotter: Jeremie Gross DO Urobilinogen,Ur Normal Normal NORM [facility] Comment on above: Performed By: #### U HCG, UAX #### [facility] [address] [place] [address] Lathe Spotter: Jeremie Gross DO Comment NOT REPORTED Normal [facility] Comment on above: Performed By: #### U HCG, UAX #### [facility] [address] [place] [address] Lathe Spotter: Jeremie Gross DO Urinalysis,Microon 9 ----- Normal [facility] Comment on above: Performed By: #### U HCG, UAX #### [facility] [address] [place] [address] Lathe Spotter: Fanelly, Jeremie, DO Bacteria LM.HPF (Urine sed) [#/Area] FEW Abnormal NONE [facility] Comment on above: Performed By: #### U HCG, UAX #### [facility] [address] [place] [address] Lathe Spotter: Jeremie Gross DO Epithelial cells LM.HPF (Urine sed) [#/Area] 5 TO 10 Normal [facility] Comment on above: Performed By: #### U HCG, UAX #### [facility] [facility] [address] [place] [address]07 Lathe Spotter: Jeremie Gross DO RBC (U) [#/Vol] 0 TO 2 Normal [facility] Comment on above: Performed By: #### U HCG, UAX #### [facility] [address] [place] [address] 99153 Lathe Spotter: Jeremie Gross DO WBC (U) [#/Vol] 0 TO 2 Normal [facility] Comment on above: Performed By: #### U HCG, UAX #### [facility] [address] [place] [address] 66563 Lathe Spotter: Jeremie Gross DO Amorphous sediment LM Ql (Urine sed) NOT REPORTED Normal [facility] Comment on above: Performed By: #### U HCG, UAX #### [facility] [address] [place] [address] 639[address] Lathe Spotter: Jeremie Gross DO Casts LM.LPF (Urine sed) [#/Area] NOT REPORTED Normal [facility] Comment on above: Performed By: #### U HCG, UAX #### [facility] [address] [place] [address] 88235 Lathe Spotter: Jeremie Gross DO Crystals LM Nom (Urine sed) NOT REPORTED Normal [facility] Comment on above: Performed By: #### U HCG, UAX #### [facility] [address] [facility] [place] [address] Lathe Spotter: Jeremie Gross DO Epithelial, Renal NOT REPORTED Normal 0 [facility] Comment on above: Performed By: #### U HCG, UAX #### [facility] [place] [address] Lathe Spotter: Jeremie Gross DO Mucus Strands NOT REPORTED Normal NONE [facility] Comment on above: Performed By: #### U HCG, UAX #### [facility] [address] [place] [address] Lathe Spotter: Jeremie Gross DO Other Observations NOT REPORTED Normal [facility] Comment on above: Performed By: #### U HCG, UAX #### [facility] [address] [place] [address] 90[address] Lathe Spotter: Jeremie Gross DO Trichomonas NOT REPORTED Normal NONE [facility] Comment on above: Performed By: #### U HCG, UAX #### [facility] [address] [place] [address] 20521 Lathe Spotter: Jeremie Gross DO Yeast LM Ql (Urine sed) NOT REPORTED Normal NONE [facility] Comment on above: Performed By: #### U HCG, UAX #### [facility] [address] [place] [address] 73132 Lathe Spotter: Jeremei Gross DO XR CHEST (2 VW)on 01-08-2019 [...] Levi Munroe MD 01/07/19 Final result Normal [facility] CBC Auto Differentialon 11-3 -2018 Basophils (Bld) [#/Vol] 0.10 10*3/uL [place] Basophils/100 WBC (Bld) 1 % 0 - 2 % [place] Differential Type NOT REPORTED [place] Eosinophils (Bld) [#/Vol] 0.30 10*3/uL [place] Eosinophils/100 WBC (Bld) 3 % 0 - 4 % [place] Erythrocyte distribution width (RBC) [Ratio] 12.9 % 11.5 - 14.9 % [place] Hematocrit (Bld) [Volume fraction] 43.0 % 36 - 46 % [place] Hemoglobin (Bld) [Mass/Vol] 14.6 g/dL 12 - 16 g/dL [place] Lymphocytes (Bld) [#/Vol] 3.10 10*3/uL [place] Lymphocytes/100 WBC (Bld) 34 % 25 - 45 % [place] MCH (RBC) [Entitic mass] 30.9 pg 26 - 34 pg [place] MCHC (RBC) [Mass/Vol] 33.9 g/dL 31 - 37 g/dL [place] MCV (RBC) [Entitic vol] 91.1 fL 80 - 100 fL [place] Monocytes (Bld) [#/Vol] 0.70 10*3/uL [place] Monocytes/100 WBC (Bld) 8 % 2 - 8 % [place] Platelet mean volume (Bld) [Entitic vol] 7.8 fL 6 - 12 fL [place] Platelets (Bld) [#/Vol] 245 10*3/uL [place] RBC (Bld) [#/Vol] 4.71 10*6/uL 4 - 5.2 m/uL [place] Segmented neutrophils/100 WBC (Bld) 54 % 34 - 64 % [place] Segs Absolute 5.00 [place] WBC (Bld) [#/Vol] 9.2 10*3/uL [place] WBC (Bld) [#/Vol] NOT REPORTED per 100 WBC [place], [place] CBC with Diffon 01-07-2019 Immature granulocytes (Bld) [#/Vol] NOT REPORTED Normal 0 [place] Comment on above: Performed By: #### C DP, HCG, LIP, CP, TROPI, DIME #### [facility] [address] [facility] [place] [address] Lathe Spotter: Jeremie Gross DO Platelets (Bld) [#/Vol] NOT REPORTED Normal [place] Comment on above: Performed By: #### C DP, HCG, LIP, CP, TROPI, DIME #### [facility] [address] [facility] [place] [address] Lathe Spotter: Jeremie Gross DO RBC morphology finding Nom (Bld) NOT REPORTED Normal [place] Comment on above: Performed By: #### C DP, HCG, LIP, CP, TROPI, DIME #### [facility] [address] [facility] [place] [address] Lathe Spotter: Jeremie Gross DO WBC Morphology NOT REPORTED Normal [place] Comment on above: Performed By: #### C DP, HCG, LIP, CP, TROPI, DIME #### [facility] [address] [facility] [place] [address] Lathe Spotter: Jeremie Gross DO Comp Metabolic Profon 2018 Albumin/Globulin [Mass ratio] NOT REPORTED Normal 1.0-2.5 [place] Comment on above: Performed By: #### C DP, HCG, LIP, CP, TROPI, DIME #### [facility] [address] [place] [address] Lathe Spotter: Jeremie Gross DO Bun/Cre Ratio NOT REPORTED Normal 9-20 [place] Comment on above: Performed By: #### C DP, HCG, LIP, CP, TROPI, DIME #### [facility] [address] [place] [address] Lathe Spotter: Jeremie Gross DO Comprehensive Metabolic Pane eric 01-07-2019 Albumin [Mass/Vol] 4.3 g/dL 3.5 - 5.2 g/dL [place] ALP [Catalytic activity/Vol] 86 U/L 35 - 104 U/L [place] ALT [Catalytic activity/Vol] 9 U/L 5 - 33 U/L [place] Anion gap [Moles/Vol] 11 mmol/L 9 - 17 mmol/L [place] AST [Catalytic activity/Vol] 12 U/L <32 [place] Bilirubin Ql (U) <0.15 Low 0.3 - 1.2 mg/dL [place] Calcium [Mass/Vol] 9.3 mg/dL 8.6 - 10. 4 mg/dL [place] Chloride [Moles/Vol] 104 mmol/L 98 - 10 7 mmol/L [place] CO2 [Moles/Vol] 25 mmol/L 20 - 31 mmol/L [place] Creatinine [Mass/Vol] 0.53 mg/dL 0.5 - 0.9 mg/dL [place] GFR NOT REPORTED >60 mL/min [place] GFR Non- Pediatric GFR requires additional information. Refer to NKDEP website for calculator. >60 mL/min [place] GFR/1.73 sq M predicted among non-blacks MDRD (S/P/Bld) [Vol rate/Area] [place] Comment on above: Average GFR for <20 years old not available. Chronic Kidney Disease: <60 mL/min/1.73sq m Kidney failure: <15 mL/min/1.73sq m eGFR calculated using average adult body mass. Additional eGFR calculator available at: http://www.[employer]/multiple_crcl_2012.htm GFR/1.73 sq M predicted among non-blacks MDRD (S/P/Bld) [Vol rate/Area] NOT REPORTED [place] Glucose [Mass/Vol] 86 mg/dL 70 - 99 mg/dL [place] Interpretation and review of laboratory results Abnormal [place] Potassium [Moles/Vol] 3.7 mmol/L 3.7 - 5.3 mmol/L [place] Protein [Mass/Vol] 7.4 g/dL 6.4 - 8.3 g/dL [place] Sodium [Moles/Vol] 140 mmol/L 135 - 144 mmol/L [place] Urea nitrogen [Mass/Vol] 18 mg/dL 6 - 20 mg/dL [place] D-Dimer, Quantitativeon 11-3 D-Dimer, Quant 0.34 [place] Comment on above: When combined with [...] Bloodon 01-08-20 19 hCG Qual Negative NEGATIVE [place] Comment on above: Specimens with hCG [...] activity/Vol] 28 U/L 13 - 60 U/L [place] Microscopic Urinalysison Amorphous, UA NOT REPORTED None [place] Bacteria, UA FEW Abnormal None [place] Casts UA NOT REPORTED /LPF [place] Crystals UA NOT REPORTED None /HPF [place] Epithelial Cells UA 5 TO 10 /HPF [place] Interpretation and review of laboratory results Abnormal [place] Mucus, UA NOT REPORTED None [place] Other Observations UA NOT REPORTED NOT REQ. [place] RBC (U) [#/Vol] 0 TO 2 /HPF [place] Renal Epithelial, Urine NOT REPORTED 0 /HPF [place] Trichomonas, UA NOT REPORTED None [place], [place] WBC, UA 0 TO 2 /HPF [place] Yeast, UA NOT REPORTED None [place] - [place] Troponinon 01-07-2019 Troponin I.cardiac [Mass/Vol] NOT REPORTED [place] Troponin T.cardiac [Mass/Vol] NOT REPORTED <0.03 ng/mL [place] Troponin, High Sensitivity <6 0 - 14 ng/L [place] Comment on above: High Sensitivity Troponin values cannot be compared with other Troponin methodologies. Patients with high levels of Biotin oral intake (i.e >5mg/day) may have falsely decreased Troponin levels. Samples collected within 8 hours of biotin intake may require additional information for diagnosis. Troponin I.cardiac [Mass/Vol] NOT REPORTED [place] Troponin T.cardiac [Mass/Vol] NOT REPORTED <0.03 ng/mL [place] Troponin, High Sensitivity <6 0 - 14 ng/L [place] Comment on above: High Sensitivity Troponin values cannot be compared with other Troponin methodologies. Patients with high levels of Biotin oral intake (i.e >5mg/day) may have falsely decreased Troponin levels. Samples collected within 8 hours of biotin intake may require additional information for diagnosis. Urinalysis Reflex to Culture on 01-07-2019 Bilirubin Urine Negative NEGATIVE [place], [place] Color, UA YELLOW YELLOW [place], [place] Glucose, Ur Negative NEGATIVE [place] Interpretation and review of laboratory results Abnormal [place] Ketones Ql (U) Negative NEGATIVE [place] Leukocyte esterase Test strip Ql (U) Negative NEGATIVE [place] Nitrite, Urine Negative NEGATIVE [place] pH, UA 6.5 [place], [place] Protein (U) [Mass/Vol] Negative NEGATIVE [place], [place] Specific [place], UA 1.024 [place], [place] Turbidity UA CLOUDY Abnormal CLEAR [place] Urinalysis Comments NOT REPORTED [place], [place] Urine Hgb Negative NEGATIVE [place] Urobilinogen, Urine Normal Normal [place] XR CHEST STANDARD (2 VW)on 03-09-2018 [...] The osseous structures are without acute process. [place], [place] Julián, Mhpn Incoming Radiant Results From [employer] - 01/07/2019 10:07 PM EST EXAMINATION: TWO [...] without acute process. IMPRESSION: No acute process. [place] No acute process. [place] HCG, ,Urineon 12-03 Beta HCG ( test) Ql (U) Negative Normal NEG [facility] Comment on above: Result Comment: Spec imens with hCG levels near the threshold of the test (25 mIU/mL) may give a negative or indeterminate result. In such cases, another test should be performed with a new specimen in 48-72 hours. If early is suspected clinically in this setting, correlation with quantitative serum b-hCG level is suggested. Performed By: #### U HCG, UAX #### [facility] [address] [facility] [place] [address] Lathe Spotter: Jeremie Gross DO Beta HCG ( test) Ql (U) Negative NEGATIVE [place] Comment on above: Specimens with hCG [...] Cultureon 2018 Acetoacetic Acid,Ur Negative Normal NEG [facility] Comment on above: Performed By: #### U HCG, UAX #### [facility] [address] [facility] [place] [address] Lathe Spotter: Jeremie Gross DO Bilirubin, SemiQt,Ur Negative Normal NEG [facility] Comment on above: Performed By: #### U HCG, UAX #### [facility] [address] [facility] [place] [address] Lathe Spotter: Jeremie Gross DO Color (U) YELLOW Normal YEL [facility] Comment on above: Performed By: #### U HCG, UAX #### [facility] [address] [place] [address] 39058 Lathe Spotter: Jeremie Gross DO Comment Microscopic exam not performed based on chemical results unless requested in Normal [facility] Comment on above: Result Comment: orig inal order. Performed By: #### U HCG, UAX #### [facility] [address] [place] [address] 98772 Lathe Spotter: Jeremie Gross DO Glucose Ql (U) Negative Normal NEG [facility] Comment on above: Performed By: #### U HCG, UAX #### [facility] [address] [place] [address] [phone] Lathe Spotter: Jeremie Gross DO Hemoglobin, Ur Negative Normal NEG [facility] Comment on above: Performed By: #### U HCG, UAX #### [facility] [address] [place] [address] 54246 Lathe Spotter: Jeremie Gross DO Nitrite,Ur Negative Normal NEG [facility] Comment on above: Performed By: #### U HCG, UAX #### [facility] [address] [place] [address] 02730 Lathe Spotter: Jeremie Gross DO pH (U) 8.5 [pH] High 5.0-8.0 [facility] Comment on above: Performed By: #### U HCG, UAX #### [facility] [address] [place] [address] 97391 Lathe Spotter: Jeremie Gross DO Protein Ql (U) Negative Normal NEG [facility] Comment on above: Performed By: #### U HCG, UAX #### [facility] [address] [facility] [place] [address] Lathe Spotter: Jeremie Gross DO Specific gravity (U) [Rel density] 1.018 Normal 1.000-1.030 [facility] Comment on above: Performed By: #### U HCG, UAX #### [facility] [address] [place] [address]. [place] [address] Lathe Spotter: Jeremie Gross DO Turbidity CLEAR Normal CLEAR [facility] Comment on above: Performed By: #### U HCG, UAX #### [facility] [address] [place] [address] 16704 Lathe Spotter: Jeremie Gross DO Urobilinogen,Ur Normal Normal NORM [facility] Comment on above: Performed By: #### U HCG, UAX #### [facility] [address] [place] [address] 52800 Lathe Spotter: Jeremie Gross DO Leukocyte esterase Test strip Ql (U) Negative Normal NEG [place] Comment on above: Performed By: #### U HCG, UAX #### [facility] [address] [place] [address] 69036 Lathe Spotter: Jeremie Gross DO Urinalysis Reflex to Culture on 2018 Bilirubin Urine Negative NEGATIVE [facility] [place], [place] Color, UA YELLOW YELLOW [facility], [place] Glucose, Ur Negative NEGATIVE [facility], [place] Interpretation and review of laboratory results Abnormal [facility], [place] Ketones Ql (U) Negative NEGATIVE [facility] [place], [place] Nitrite, Urine Negative NEGATIVE [facility] [place], [place] pH, UA 8.5 High [facility], [place] Protein (U) [Mass/Vol] Negative NEGATIVE Me [facility] [place], [place] Specific [place], UA 1.018 [facility] [place], [place] Turbidity UA CLEAR CLEAR [facility], [place] Urinalysis Comments Microscopic exam not performed based on chemical results unless requested in original order. [facility] [place], [place] Urine Hgb Negative NEGATIVE [facility], [place] Urobilinogen, Urine Normal Normal [facility], [place] XR ANKLE RIGHT (MIN 3 VIEWS) on [...] Damian Ochoa MD 09/12/18 Final result Normal [facility] Vital Signs Date Time Vital Sign Value Performing Clinician Facility 08-09-2024 08:36-0400 Body mass index (BMI) [Ratio] 29.01 kg/m2 Radha Diego NP Work Phone: [facility] 08-09-2024 08:36-0400 Body weight 74.28 kg Radha Diego UTILITY WORKER Work Phone: [facility] 08-09-2024 08:36-0400 Diastolic blood pressure 58 mm[Hg] Radha Diego UTILITY WORKER Work Phone: [facility] 08-09-2024 08:36-0400 Systolic blood pressure 110 mm[Hg] Radha Diego UTILITY WORKER Work Phone: [facility] 07-26-2024 11:21-0400 Body mass index (BMI) [Ratio] 28.61 kg/m2 Eusebio Lam DO Work Phone: [facility] 07-26-2024 11:21-0400 Body weight 73.26 kg Eusebio Carole DO Work Phone: [facility] 07-26-2024 11:21-0400 Diastolic blood pressure 62 mm[Hg] Esuebio Carole DO Work Phone: [facility] 07-26-2024 11:21-0400 Systolic blood pressure 102 mm[Hg] Eusebio Carole DO Work Phone: [facility] 07-13-2024 10:50-0400 Body mass index (BMI) [Ratio] 27.81 kg/m2 Eusebio Carole DO Work Phone: [facility] 07-13-2024 10:50-0400 Body weight 71.22 kg Eusebio Carole DO Work Phone: [facility] 07-13-2024 10:50-0400 Diastolic blood pressure 68 mm[Hg] Eusebio Carole DO Work Phone: [facility] 07-13-2024 10:50-0400 Systolic blood pressure 110 mm[Hg] Eusebio Carole DO Work Phone: [facility] 06-28-2024 10:14-0400 Body mass index (BMI) [Ratio] 28.3 kg/m2 Radha GARCIA Work Phone: [facility] 06-28-2024 10:14-0400 Body weight 72.46 kg Radha Avila PA Work Phone: [facility] 06-28-2024 10:14-0400 Diastolic blood pressure 60 mm[Hg] Radha Austin PA Work Phone: [facility] 06-28-2024 10:14-0400 Systolic blood pressure 110 mm[Hg] Radha Avila PA Work Phone: [facility] 06-13-2024 12:02-0400 Body mass index (BMI) [Ratio] 27.99 kg/m2 Eusebio Carole DO Work Phone: [facility] 06-13-2024 12:02-0400 Body weight 71.67 kg Eusebio Carole DO Work Phone: [facility] 06-13-2024 12:02-0400 Diastolic blood pressure 74 mm[Hg] Eusebio Carole DO Work Phone: [facility] 06-13-2024 12:02-0400 Systolic blood pressure 122 mm[Hg] Eusebio Carole DO Work Phone: [facility] 05-16-2024 09:43-0400 Body mass index (BMI) [Ratio] 25.86 kg/m2 Eusebio Carole DO Work Phone: [facility] 05-16-2024 09:43-0400 Body weight 66.22 kg Eusebio Carole DO Work Phone: [facility] 05-16-2024 09:43-0400 Diastolic blood pressure 70 mm[Hg] Eusebio Carole DO Work Phone: [facility] 05-16-2024 09:43-0400 Systolic blood pressure 120 mm[Hg] Eusebio Carole DO Work Phone: [facility] 04-17-2024 13:30-0400 Body mass index (BMI) [Ratio] 23.52 kg/m2 Radha Avila PA Work Phone: [facility] 04-17-2024 13:30-0400 Body weight 60.24 kg Radha Austin PA Work Phone: [facility] 04-17-2024 13:30-0400 Diastolic blood pressure 60 mm[Hg] Radha Cardington PA Work Phone: [facility] 04-17-2024 13:30-0400 Systolic blood pressure 100 mm[Hg] Radha Cardington PA Work Phone: [facility] 03-22-2024 11:21-0500 Body mass index (BMI) [Ratio] 22.34 kg/m2 Radha Austin PA Work Phone: [facility] 03-22-2024 11:21-0500 Body weight 57.21 kg Radha Austin PA Work Phone: [facility] 03-22-2024 11:21-0500 Diastolic blood pressure 74 mm[Hg] Radha Hargroveey PA Work Phone: [facility] 03-22-2024 11:21-0500 Systolic blood pressure 110 mm[Hg] Radha Avila PA Work Phone: [facility] 03-09-2023 14:31-0500 Body mass index (BMI) [Ratio] 25.51 kg/m2 Eusebio Carole DO Work Phone: [facility] 03-09-2023 14:31-0500 Body weight 65.32 kg Eusebio Carole DO Work Phone: [facility] 03-09-2023 14:31-0500 Diastolic blood pressure 72 mm[Hg] Eusebio Carole DO Work Phone: [facility] 03-09-2023 14:31-0500 Systolic blood pressure 120 mm[Hg] Eusebio Carole DO Work Phone: [facility] 10-05-2021 02:05-0400 Body weight 80.[address] EUSEBIO LAM . [facility] Comment on above: Performed By: #### AFPMAT #### [facility] [address] [place] [address] Dr. Qi Benedict 06-01-2019 14:51-0400 BMI (Body Mass Index) 31.35 kg/m2 [facility], [place] 06-01-2019 14:51-0400 Body Temperature 99 [degF] [facility], [place] 06-01-2019 14:51-0400 Body weight 80.29 kg [facility] , [place] 06-01-2019 14:51-0400 Height 160 cm [facility] , [place] 06-01-2019 14:51-0400 Pulse (Heart Rate) 83 /min [facility], [place] 06-01-2019 14:51-0400 Pulse Oximetry 99 % [place], [place] 06-01-2019 14:51-0400 Respiratory Rate 16 /min Victorino Sullivan [facility], [place] 05-24-2019 23:36-0400 BMI (Body Mass Index) 32.01 kg/m2 [facility] 05-24-2019 23:36-0400 Body Temperature 98.6 [degF] , [place] 05-24-2019 23:36-0400 Body weight 79.38 kg [facility] , [place] 05-24-2019 23:36-0400 BP Diastolic 86 mm[Hg] [facility] , [place] 05-24-2019 23:36-0400 BP Systolic 135 mm[Hg] [facility] , [place] 05-24-2019 23:36-0400 Height 157.5 cm [place] 05-24-2019 23:36-0400 Pulse (Heart Rate) 98 /min [facility], [place] 05-24-2019 23:36-0400 Pulse Oximetry 99 % [place] 05-24-2019 23:36-0400 Respiratory Rate 20 /min , [place] 01-07-2019 23:25-0500 Body Temperature 98.6 [degF] [facility], [place] 01-07-2019 23:25-0500 BP Diastolic 78 mm[Hg] [facility] , [place] 01-07-2019 23:25-0500 BP Systolic 124 mm[Hg] [facility] , [place] 01-07-2019 23:25-0500 Pulse (Heart Rate) 77 /min [facility], [place] 01-07-2019 23:25-0500 Pulse Oximetry 99 % [facility] , [place] 01-07-2019 23:25-0500 Respiratory Rate 16 /min [facility], [place] 01-07-2019 21:09-0500 Height 160 cm [facility] , [place] 2018 17:25-0400 BMI (Body Mass Index) 25.61 kg/m2 Kosta Krebs [facility], [place] 2018 17:25-0400 Body Temperature 98.1 [degF] Kosta Lozano [place], [place] 2018 17:25-0400 Body weight 63.5 kg [place] 2018 17:25-0400 BP Diastolic 64 mm[Hg] [facility] , [place] 2018 17:25-0400 BP Systolic 92 mm[Hg] [place], [place] 2018 17:25-0400 Height 157.5 cm [place] 2018 17:25-0400 Pulse (Heart Rate) 80 /min [place], [place] 2018 17:25-0400 Pulse Oximetry 98 % [place], [place] 2018 17:25-0400 Respiratory Rate 16 /min [place] Encounters Encounter Date Encounter Type Care Provider Facility Start: 08-09-2024 End: 08-09-2024 Bamboo flowsheet Radha Diego NP Work Phone: [facility] Start: 08-09-2024 End: 08-09-2024 Bamboo flowsheet Radha Diego NP Work Phone: [facility] Start: 08-09-2024 End: 08-09-2024 Clinisync Result Encounter Eusebio Ritterzio DO Work Phone: [facility] External Department Unsolicited Start: 08-09-2024 End: 08-09-2024 Office outpatient visit 15 minutes Radha Diego NP Work Phone: [facility] Comment on above: Third trimester preg cindi ([facility]); 33 weeks gestation of ([facility]) Start: 08-09-2024 End: 08-09-2024 ambulatory RADHA CASH Not Available Start: 08-03-2024 End: 08-03-2024 Clinisync Result Encounter [...] Comment on above: Third trimester preg cindi ([facility]); 31 weeks gestation of ([facility]) Start: 07-13-2024 End: 07-13-2024 Bamboo flowsheet Eusebio [...] 15 minutes Radha Avila PA Work Phone: [facility] Comment on above: Second trimester pre gnancy; 27 weeks gestation of Start: 06-28-2024 End: 06-28-2024 ambulatory RADHA AVILA Not Available Start: 06-13-2024 End: 06-13-2024 Bamboo flowsheet Eusebio Carole DO Work Phone: [facility] Start: 06-13-2024 End: 06-13-2024 Bamboo flowsheet Eusebio Carole DO Work Phone: [facility] Start: 06-13-2024 End: 06-13-2024 Office outpatient visit 15 minutes Eusebio Carole DO Work Phone: [facility] Comment on above: Second trimester pre gnancy; 25 weeks gestation of ; H/O delivery, currently ; Vapes nicotine containing substance Start: 06-13-2024 End: 06-13-2024 ambulatory EUSEBIO CAROLE Not Available Start: 05-24-2024 End: 05-24-2024 ambulatory EUSEBIO R CAROLE [facility] Start: 05-16-2024 End: 05-16-2024 Bamboo flowsheet Eusebio Carole DO Work Phone: [facility] Start: 05-16-2024 End: 05-19-2024 Bamboo flowsheet Eusebio Carole DO Work Phone: [facility] Start: 05-16-2024 End: 05-19-2024 Clinisync Result Encounter Eusebio Carole DO Work Phone: [facility] External Department Unsolicited Start: 05-16-2024 End: 05-17-2024 External Result Encounter Eusebio Carole DO Work Phone: [facility] External Department Unsolicited Start: 05-16-2024 End: 05-16-2024 Patient encounter procedure Eusebio Carole DO Work Phone: [facility] Start: 05-16-2024 End: 05-16-2024 Periodic preventive med est patient 18-39 yrs Eusebio Carole DO Work Phone: [facility] Comment on above: 21 weeks [...] Phone: [facility] Comment on above: 17 weeks gestation o f ; Second trimester ; Screening, , for anatomic survey Start: 04-17-2024 End: 04-17-2024 ambulatory RADHA AVILA Not Available Start: 03-22-2024 End: 03-22-2024 Bamboo flowsheet Radha GARCIA Work Phone: [facility] Start: 03-22-2024 End: 03-22-2024 Bamboo flowsheet Radha Avila PA Work Phone: [facility] Start: 03-22-2024 [...] Unsolicited Start: 02-11-2024 End: 02-11-2024 ambulatory STUART Bruce [facility] Start: 02-11-2024 End: 02-11-2024 ambulatory SHANNAN [facility] Start: 01-26-2024 End: 01-26-2024 ambulatory SHANNAN ESPINOZA [facility] Start: 01-19-2024 End: 01-19-2024 ambulatory ANN-MARIE Dc [facility] Start: 01-18-2024 End: 01-18-2024 ambulatory [facility] Start: 01-11-2024 End: 01-11-2024 Emergency department patient visit ANN-MARIE ASH MD Facility:[facility] Start: 11-03-2023 End: 11-03-2023 Bamboo flowsheet Eusebio Carole DO Work Phone: [facility] Start: 11-03-2023 End: 11-03-2023 Bamboo flowsheet Eusebio Carole DO Work Phone: [facility] Start: 11-03-2023 End: 11-03-2023 Clinisync Result Encounter Eusebio Carole DO Work Phone: [facility] External Department Unsolicited Start: 11-03-2023 End: 11-03-2023 ambulatory EUSEBIO CAROLE Not Available Start: 11-03-2023 End: 11-03-2023 Office outpatient visit 15 minutes Eusebio Carole DO Work Phone: [facility] Comment on above: Follow-up encounter involving medication; depression (CMS/HCC); Weight loss Start: 09-01-2023 ambulatory [place] Start: 03-22-2023 End: 03-22-2023 Emergency department patient visit ANN-MARIE Dc [facility] Start: 03-09-2023 End: 03-09-2023 Office outpatient visit [...] 06-01-2019 Emergency department patient visit ANN-MARIE Dc [facility] Start: 06-01-2019 End: 06-01-2019 Emergency department patient visit Victorino Sullivan Work Phone: [facility] ED Comment on above: Sprain of right ankl e, unspecified ligament, initial encounter (Primary Dx); Contusion of back wall of thorax, unspecified laterality, initial encounter Start: 05-25-2019 End: 05-25-2019 Emergency department patient visit ANN-MARIE Dc [facility] Start: 05-24-2019 End: 05-25-2019 Emergency department patient visit Alexandria Siddiqui Work Phone: [facility] ED Comment on above: Sprain of right ankl e, unspecified ligament, initial encounter (Primary Dx) Start: 05-15-2019 End: 05-16-2019 Patient encounter procedure TRUDY VILLEGAS [facility] Start: 05-15-2019 End: 05-15-2019 [facility]: Amen[facility]hea Start: 03-12-2019 End: 03-12-2019 Emergency department patient visit [facility] Start: 01-07-2019 End: 01-08-2019 Emergency department patient visit [facility] Start: 01-07-2019 End: 01-08-2019 Emergency department patient visit Ann-Marie Engle Work Phone: [facility] ED Comment on above: Dyspepsia (Primary D x); Atypical chest pain Start: 2018 End: 2018 Emergency department patient visit [facility] Start: 2018 End: 2018 Emergency department patient visit Kosta Lozano Work Phone: [facility] ED Comment on above: examinatio n or test, negative result (Primary Dx) Start: 09-12-2018 End: 09-12-2018 Emergency department patient visit [facility] Procedures Date Procedure Procedure Detail Performing Clinician Start: 08-09-2024 US OB BPP W NON-STRESS Eusebio Carole DO Work Phone: Start: 08-09-2024 US OB CERVICAL LENGTH C orey Carole DO Work Phone: Start: 08-09-2024 Urnls dip stick/tabl et rgnt non-auto w/o micrscp Radha Diego NP Work Phone: Start: 08-03-2024 US OB BPP W NON-STRESS [...] Work Phone: Start: 02-29-2024 BOX TEST Eusebio Fazi o DO Work Phone: Start: 02-18-2024 BOX TEST Eusebio Fazi o DO Work Phone: Start: 11-03-2023 ALL CBC WITH AUTO DIFF Eusebio Carole DO Work Phone: Start: 01-29-2022 Delivery of Products of Conception, External Approach DR EUSEBIO LAM . Start: 01-29-2022 Drainage of Amniotic Fluid, Therapeutic from Products of Conception, Via Natural or Artificial Opening DR EUSEBIO LAM . Start: 06-01-2019 BANDAGE LUISTIO 4 TRUDY Bruce Start: 06-01-2019 DURAMEDIC ORTHOPEDIC SUPPLIES TRUDY VILLEGAS Start: 06-01-2019 Radex ankle complete minimum 3 views TRUDY VILLEGAS Start: 06-01-2019 Radex spine thoracic 3 views [...] Fibrin dgradj produc ts d-dimer quantitative Ann-Marie Ritchiechelseaze Work Phone: Start: 01-08-2019 Gonadotropin chorion ic qualitative Ann-Marie Ritchiechelseaze Work Phone: Start: 01-07-2019 Radiologic exam ches t 2 views Ann-Marie Ritchiechelseaze Work Phone: Start: 2018 Urine test visual color cmprsn meths ANN-MARIE ASH Start: 2018 Urnls dip stick/tabl et rgnt auto w/o microscopy ANN-MARIE ASH Start: 2018 Urine test visual color cmprsn meths Ellen Evette Work Phone: Start: 2018 Urnls dip stick/tabl et rgnt auto w/o microscopy Ellen Evette Work Phone: Start: 09-12-2018 AIR CAST ANN-MARIE BAJWA Start: 09-12-2018 CRUTCHES ANN-MARIE BAJWA Start: 09-12-2018 Radex ankle complete minimum 3 views ANN-MARIE SLAUGHTEREAN Plan of Treatment Date Care Activity Detail Author Start: 08-17-2024 End: 08-17-2024 Patient encounter procedure 08/17/2024 10:00 AM EDT Routine [facility] [address] [place] [phone] Eusebio Lam, DO [address] [place] [address] [facility] Start: 08-09-2024 End: 08-09-2024 Patient encounter procedure [facility] Comment on above: Arrived Start: 07-26-2024 End: 07-26-2024 Patient encounter procedure 07/26/2024 11:10 AM EDT Routine [facility] [address] [place] [address] Eusebio Lam DO [address] [place] [address] [facility] Start: 07-13-2024 End: 01-12-2025 US biophysical profile w non stress test US biophysical profile w non stress test Imaging Routine 30 weeks gestation of H/O delivery, currently Expected: 07/13/2024 (Approximate), Expires: 01/12/2025 [facility] Comment on above: Expected: 07/13/2024 [...] EDT Ancillary Procedure [facility] [address] [place] [phone] [facility] Start: 06-28-2024 End: 06-28-2024 Patient encounter procedure 06/28/2024 10:10 AM EDT Routine [facility] [address] [place] [address] Radha Avila PA [address] [place] [address] [facility] Start: 06-28-2024 End: 06-28-2024 Professional / ancillary services management 06/28/2024 9:30 AM EDT Ancillary Procedure [facility] [address] [place] [phone] [facility] Start: 06-13-2024 End: 06-13-2024 Patient encounter procedure [facility] Comment on above: Arrived Start: 05-16-2024 End: 05-16-2025 CBC panel - Blood by Automated count CBC Lab Routine Diabetes mellitus screening Expected: 05/16/2024 (Approximate), Expires: 05/16/2025 [facility] Work Phone: Comment on above: Expected: 05/16/2024 (Approximate), Expires: 05/16/2025 Start: 05-16-2024 End: 05-16-2025 Measurement of glucose 1 hour after glucose challenge for glucose tolerance test Glucose tolerance, 1 hour Lab Routine Diabetes mellitus screening Expected: 05/16/2024 (Approximate), Expires: 05/16/2025 [facility] Comment on above: Expected: 05/16/2024 (Approximate), Expires: 05/16/2025 Start: 05-16-2024 End: 05-16-2024 Patient encounter procedure [facility] Comment on above: Arrived Start: 05-08-2024 End: 05-08-2024 Professional / ancillary services management 05/08/2024 9:30 AM EDT Ancillary Procedure [facility] [address] [place] [address] [facility] Start: 04-17-2024 End: 04-17-2025 Alpha fetoprotein, maternal Alpha fetoprotein, maternal Lab Routine 17 weeks gestation of Second trimester Screening, , for anatomic survey Expected: 04/17/2024 (Approximate), Expires: 04/17/2025 [facility] Work Phone: Comment on above: Expected: 04/17/2024 (Approximate), Expires: 04/17/2025 Start: 04-17-2024 End: 04-17-2025 US for US OB 14+ weeks anatomy scan Imaging Routine Screening, , for anatomic survey Expected: 04/17/2024, Expires: 04/17/2025 [facility] Comment on above: Expected: 04/17/2024 , Expires: 04/17/2025 Start: 04-17-2024 End: 04-17-2024 Patient encounter procedure 04/17/2024 1:10 PM EDT Routine [facility] [address] [place] [phone] Radha Avila PA [address] [place], [place] [id number] [facility] Start: 03-13-2024 End: 03-13-2024 ambulatory 03/13/2024 8:40 AM EST Initial [facility] [address] [place] [phone] Eusebio Lam, DO [address] [place], [facility] Start: 01-20-2024 End: 01-20-2024 Patient encounter procedure 01/20/2024 11:20 AM EST Office Visit [facility] [address] [place] [phone] Eusebio Lam, DO [address] [place], [place] [phone] [facility] Start: 08-31-2023 DTaP/Tdap/Td vaccine (5 - Td) DTaP/Tdap/Td vaccine (5 - Td) [place], [place] Start: 10-10-2019 Influenza vaccination Flu vacc ine (Season Ended) [place] Start: 12-02-2018 DTaP/Tdap/Td vaccine (1 - Tdap) DTaP/Tdap/Td vaccine (1 - Tdap) [place] Start: 10-09-2018 Influenza vaccination Flu vaccine (# 1) [place] Start: 08-04-2016 Chlamydia screen Chlamydia screen [place], [place] Start: 08-04-2016 Screening for Chlamy penelope trachomatis Chlamydia screen [place], [place] Start: 12-02-2014 HIV screen HIV screen [place], [place] Start: 12-02-2014 HIV screening HIV screen [facility] [place], [place] Start: 12-02-2014 HPV vaccine (1 - Fem joselyn 3-dose series) HPV vaccine (1 - Female 3-dose series) [place] Start: 12-02-2012 Varicella Vaccine (1 of 2 - 13+ 2-dose series) Varicella Vaccine (1 of 2 - 13+ 2-dose series) [place] Start: 12-02-2010 DTaP/Tdap/Td vaccine (1 - Tdap) DTaP/Tdap/Td vaccine (1 - Tdap) [place] Start: 12-02-2010 HPV vaccine (1 - Fem joselyn 2-dose series) HPV vaccine (1 - Female 2-dose series) [place] Start: 12-02-2005 Pneumococcal 0-64 ye ars Vaccine (1 of 1 - PPSV23) Pneumococcal 0-64 years Vaccine (1 of 1 - PPSV23) [place] Start: 2003 Varicella vaccine (2 of 2 - 2-dose childhood series) Varicella vaccine (2 of 2 - 2-dose childhood series) [place] Start: 12-02-2000 Varicella Vaccine (1 of 2 - 2-dose childhood series) Varicella Vaccine (1 of 2 - 2-dose childhood series) [place] CBC W Auto Different ial panel - Blood CBC and differential Lab Routine Weight loss Ordered: 11/03/2023 [facility] Work Phone: Comment on above: Ordered: 11/03/2023 CBC W Auto Different ial panel - Blood CBC and differential Lab Routine Third trimester Ordered: 07/13/2024 [facility] Comment on above: Ordered: 07/13/2024 CHLAMYDIA TRACHOMATI S (GENITO/STI) CHLAMYDIA TRACHOMATIS (GENITO/STI) Lab Routine Exposure to STD Ordered: 05/16/2024 [facility] Comment on above: Ordered: 05/16/2024 Cytology Cervical or vaginal smear or scraping study Pap Smear Pathology and Cytology Routine Well woman exam with routine gynecological exam Ordered: 05/16/2024 [facility] Comment on above: Ordered: 05/16/2024 Hemoglobin A1c/Hemoglobin.total in Blood Hemoglobin A1c Lab Routine Weight loss Ordered: 11/03/2023 [facility] Comment on above: Ordered: 11/03/2023 Hemoglobin A1c/Hemoglobin.total in Blood Hemoglobin A1c Lab Routine Third trimester Ordered: 07/13/2024 [facility] Work Phone: Comment on above: Ordered: 07/13/2024 Neisseria gonorrhoea e DNA [Presence] in Unspecified specimen by STEFANIE with probe detection Neisseria gonorrhea DNA probe, direct Lab Routine Exposure to STD Ordered: 05/16/2024 [facility] Comment on above: Ordered: 05/16/2024 SURESWAB(R) ADVANCED VAGINITIS PLUS, TMA SURESWAB(R) ADVANCED VAGINITIS PLUS, TMA Pathology and Cytology Routine Vaginal discharge Ordered: 05/16/2024 [facility] Comment on above: Ordered: 05/16/2024 Thyrotropin [Units/volume] in Serum or Plasma TSH Lab Routine Weight loss Ordered: 11/03/2023 [facility] Comment on above: Ordered: 11/03/2023 Thyroxine (T4) free [Mass/volume] in Serum or Plasma T4, free Lab Routine Weight loss Ordered: 11/03/2023 [facility] Comment on above: Ordered: 11/03/2023 End: 12-14-2024 US for US OB follow up transabdominal approach Imaging Routine H/O delivery, currently 4 Occurrences starting 06/13/2024 until 12/14/2024 [facility] Work Phone: Comment on above: 4 Occurrences starti ng 06/13/2024 until 12/14/2024 Payers Date Payer Category Payer Unknown UNKNOWN 2022 Medicaid [id number] 2022 Medicaid [id number] 2018 Unknown [id number] 2018 Unknown [employer] xxxxxxxxxxx 2018-Present [phone] [address] [place] [address] xxxxxxxxxxx [id number]. [id number] 1999 Unknown [id number] 2.16.840.1.591045.3.579.2.176 1999 Unknown [id number] 2.16.840.1.103610.3.579.2.176 1999 Unknown [id number] 2.16.840.1.352157.3.579.2.176 1999 Unknown [id number] 2.16.840.1.238024.3.579.2.176 1999 Unknown [id number] 2.16.840.1.617669.3.579.2.175 1999 Unknown [id number] 2.16.840.1.277047.3.579.2.175 1999 Unknown [id number] 2.16.840.1.238039.3.579.2.175 1999 Unknown [id number] 2.16.840.1.192087.3.579.2.593 1999 Unknown [id number] 2.16.840.1.172070.3.579.2.593 1999 Unknown [id number] 2.16.840.1.208844.3.579.2.593 1999 Unknown [id number] 2.16.840.1.458987.3.579.2.593 1999 Unknown [id number] 2.16.840.1.884337.3.579.2.593 1999 Unknown [id number] 2.16.840.1.648857.3.579.2.593 1999 Unknown [id number] 2.16.840.1.178940.3.579.2.593 1999 Unknown [id number] 2.16.840.1.270163.3.579.2.593 1999 Unknown [id number] 2.16.840.1.637502.3.579.2.593 1999 Unknown [id number] 2.16.840.1.970119.3.579.2.593 1999 Unknown [id number] 2.16.840.1.200520.3.579.2.593 1999 Unknown [id number] 2.16.840.1.035319.3.579.2.593 1999 Unknown [id number] 2.16.840.1.148154.3.579.2.593 1999 Unknown [id number] 2.16.840.1.094418.3.579.2.718 1999 Unknown [id number] 2.16.840.1.157576.3.579.2.1286 1999 Unknown [id number] 2.16.840.1.411149.3.579.2.1286 1999 Unknown [id number] 2.16.840.1.269026.3.579.2.1286 1999 Unknown [id number] 2.16.840.1.167551.3.579.2.1286 1999 Unknown [id number] 2.16.840.1.623062.3.579.2.1286 1999 Unknown [id number] 2.16.840.1.860455.3.579.2.1286 1999 Unknown [id number] 2.16.840.1.437520.3.579.2.1286 1999 Unknown [id number] 2.16.840.1.171077.3.579.2.1286 1999 Unknown [id number] 2.16.840.1.309743.3.579.2.1259 1999 Unknown [id number] 2.16.840.1.649937.3.579.2.1259 1999 Unknown [id number] 2.16.840.1.994137.3.579.2.1259 1999 Unknown [id number] 2.16.840.1.869850.3.579.2.1259 1999 Unknown [id number] 2.16.840.1.561034.3.579.2.1259 1999 Unknown [id number] 2.16.840.1.060137.3.579.2.1259 1999 Unknown [id number] 2.16.840.1.394913.3.579.2.1259 1999 Unknown [id number] 2.16.840.1.812086.3.579.2.1259 1999 Unknown [id number] 2.16.840.1.892038.3.579.2.9 1999 Unknown [id number] 2.16.840.1.356812.3.579.2.1259 1999 Unknown [id number] 2.16.840.1.395883.3.579.2.1259 1959 Self-pay 1959 Unknown [id number] 1959 Unknown [id number] Unknown [id number] 2.16.840.1.839917.3.579.2.593 Social History Date Type Detail Facility Start: 06-01-2019 End: 08-05-2022 Tobacco smoking status HIIS Current every day smoker [facility] Start: 06-01-2019 End: 11-03-2023 Cigarettes smoked current (pack per day) - Reported [place] Start: 01-07-2019 End: 06-01-2019 Alcohol intake Current non-drinker of alcohol (finding) [place] Start: 03-03-2011 Tobacco Comment Mother smokes [place] Start: 1999 Sex Assigned At Not on file [place], [place] Exposure to SARS-CoV -2 (event) Unable to assess [place] Start: 2018 End: 11-03-2023 Alcohol intake No [place] History of tobacco use [facility]igarette [facility] Start: 03-09-2023 End: 05-16-2024 Alcohol intake Current drinker of alcohol (finding) [facility] Start: 08-05-2022 Tobacco Comment <1PPPD [facility] Start: 08-05-2022 Alcohol Comment heavy alcohol use [facility] Start: 12-29-2023 [facility] Clinical Notes 03-09-2023 to 08-09-2024 Radha Diego NP - 08/09/2024 8:30 AM EDTRadha Diego NP - 07/26/2024 11:10 AM Javier Ye LPN - 07/13/2024 10:30 AM JOSE Albright - 06/28/2024 10:10 AM EDT Note Date & Type Note Facility 08-09-2024 History of Presen t illness Narrative Reason [...] day smoker Heartburn History of miscarriage, currently ([facility]) HISTORY PAST MEDICAL HISTORY SOCIAL HISTORY Past Medical History: Diagnosis Date Carrier of spinal muscular atrophy Current every day smoker Heartburn History of miscarriage, currently ([facility]) Social History Tobacco Use Smoking status: Every [...] nursing note reviewed. 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 Vitals: Estimated body mass index is 29.01 kg/m as calculated from the following: Height as of 03/12/22: 5' 3 . Weight as of this encounter: 163 lb 12 oz. BP: 110/58 No LMP recorded. Patient is . ASSESSMENT & PLAN ICD-10-CM 1. Third trimester ([facility]) Z34.93 POCT urinalysis dipstick manually resulted 2. 33 weeks gestation of ([facility]) Z3A.33 Return OB: Patient presents today for [...] week for routine OB appointment. Documented by Radha Diego NP on behalf of: Radha Diego NP documented in this encounter [facility] 07-26-2024 History of Presen t illness Narrative [...] of miscarriage, currently ([facility]) HISTORY PAST MEDICAL HISTORY SOCIAL HISTORY Past Medical History: Diagnosis Date Carrier of spinal muscular atrophy Current every day smoker Heartburn History of miscarriage, currently ([facility]) Social History Tobacco Use Smoking status: Every [...] nursing note reviewed. 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 Vitals: Estimated body mass index is 28.61 kg/m as calculated from the following: Height as of 03/12/22: 5' 3 . Weight as of this encounter: 161 lb 8 oz. BP: 102/62 No LMP recorded. Patient is . ASSESSMENT & PLAN ICD-10-CM 1. Third trimester ([facility]) Z34.93 POCT urinalysis dipstick manually resulted 2. 31 weeks gestation of ([facility]) Z3A.31 Return OB: Patient presents today for [...] week for routine OB appointment. Documented by Radha Diego NP on behalf of: Eusebio Lam DO documented in this encounter [facility] 07-13-2024 History of Presen t illness Narrative [...] nursing note reviewed. 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 Vitals: Estimated body mass index is [...] Eusebio Lam DO documented in this encounter [facility] 06-28-2024 History of Presen t illness Narrative [...] of: JOSE Vanessa documented in this encounter [facility] 06-13-2024 History of Presen t illness Narrative [...] nursing note reviewed. 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 Vitals: Estimated body mass index is 27.99 kg/m as calculated from the following: Height as of 03/12/22: 5' 3 . Weight as of this encounter: 158 lb. BP: 122/74 No LMP recorded. Patient is . ASSESSMENT & PLAN ICD-10-CM 1. Second trimester Z34.92 2. 25 weeks gestation of Z3A.25 3. H/O delivery, currently O09.899 OB follow up transabdominal approach 4. Vapes [...] Eusebio Lam DO documented in this encounter [facility] 05-16-2024 History of Presen t illness Narrative [...] nursing note reviewed. 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 Vitals: Estimated body mass index is [...] obtained without difficulty and patient will see [facility] next Wednesday. Orders Placed This Encounter Procedures CBC Glucose tolerance, 1 hour CHLAMYDIA TRACHOMATIS (GENITO/STI) Neisseria gonorrhea DNA probe, direct POCT urinalysis dipstick manually resulted Follow Up: Patient is to return to our office in 4 weeks for routine OB appointment Documented by Jing Moncada LPN on behalf of: Eusebio Lam DO documented in this encounter [facility] 04-17-2024 History of Presen t illness Narrative [...] dipstick manually resulted Patient being referred to [facility], states she went into labor at 35 weeks previously. Follow Up: Patient is to return to office in 4 week for routine OB appointment. Documented by JOSE Vanessa on behalf of: JOSE Vanessa documented in this encounter [facility] 03-22-2024 History of Presen t illness Narrative [...] or undercooked meat, and stay away from [facility]. Patient has been consulted regarding any further do's and don'ts of . Patient voiced understanding and all questions and concerns were answered. No orders of the defined types were placed in this encounter. Follow Up: Patient is to return in 4 weeks for routine OB appointment. Documented by Jing Moncada LPN on behalf of: JOSE Vanessa documented in this encounter [facility] 01-11-2024 Note Education Materials Obstetrics and Gynecology Bacterial Vaginosis Take the antibiotic as prescribed. Follow-up with your MEDICATION CARE MANAGER to review this emergency department visit. Return [...] these instructions at home: Medicines ? Take gssu-pbm-sdeayxb and prescription medicines as told by your [...] for Disease Control and Prevention: www.cdc.gov ? [employer]: www.ashastd.org ? Office on [...] provider. Document Revised: 07/25/2020 Document Reviewed: 07/25/2020 [employer] Patient Education ? 2023 [facility] History of Presen t illness [...] nursing note reviewed. 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 Vitals: Estimated body mass index is 25.51 kg/m as calculated from the following: Height as of 03/12/22: 5' 3 . Weight as of 03/09/23: 144 lb. BP: No LMP recorded. ASSESSMENT & PLAN ICD-10-CM 1. Follow-up encounter involving medication Z79.899 2. depression (CMS/[facility]) F53.0 Pt presents with depression- pt denies suicidal and homicidal ideations. Pt is bipolar and not on any meds. Pt to start Wellbutrin and see Dr Munoz for management of bipolar depression. Pt given labs to have obtained. Pt to return for annual. Documented by Jing Moncada LPN on behalf of: Eusebio Lam DO documented in this encounter [facility] 03-09-2023 History of Presen t illness Narrative [...] nursing note reviewed. 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 Vitals: Estimated body mass index is [...] note* Diagnosis Follow-up encounter involving medication depression (CMS/HCC) Mental disorders of mother, complicating , childbirth, [...] gestation of (HHS-HCC) [facility] Third trimester (HHS-HCC) state, incidental 33 weeks gestation of (HHS-HCC) documented in this encounter [facility] Summary Purpose Family History No Family History Records FoundNo Family History Records FoundNo Family History Records FoundNo Family History Records FoundNo Family History Records FoundNo Family History Records FoundNo Family History Records FoundNo Family History Records FoundNo Family History Records Found Advance Directives No Advanced Directives Records FoundDocuments on File Type Date Recorded Patient [place]er Expl anation Advance Directives and Living Will Power of Foot And Ankle Surgeon Discharge Instructions * Instructions* Victorino Sullivan MD [...] fracture for several days THANK YOU!!! From [facility] and [facility] On behalf of the Emergency Department staff at [facility], I would like to thank you for giving us the opportunity to address your health care needs and concerns. We hope that during your visit, our service was delivered in a professional and caring manner. Please keep [facility] in mind as we walk with [...] how we did during your visit at [email or web address] and let us know about your experience * Attachments The following attachments cannot be sent through Care Everywhere. * Ankle Sprain (Libyan) documented in this encounter* Attachments The following attachments cannot be sent through Care Everywhere. * Ankle Sprain (Libyan) documented in this encounter* Instructions* Ann-Marie Engle, - 01/07/2019 Please take all medications as [...] be sent through Care Everywhere. * Dyspepsia (Libyan) * Chest Pain (Libyan) documented in this encounter* Attachments The following attachments cannot be sent through Care Everywhere. * Amenorrhea: Secondary (Libyan) documented in this encounter Assessments Diagnosis Sprain [...] section and content) DATE CREATED AUTHOR 03/12/2019 [facility] DATE CREATED AUTHOR AUTHOR'S ORGANIZ ATION 06/01/2019 [facility] DATE CREATED AUTHOR AUTHOR'S ORGANIZ ATION 07/17/2022 [facility] DATE CREATED AUTHOR AUTHOR'S ORGANIZ ATION 01/06/2024 [place] DATE CREATED AUTHOR AUTHOR'S ORGANIZ ATION 01/13/2024 [facility] DATE CREATED AUTHOR AUTHOR'S ORGANIZ ATION 02/18/2024 [facility] DATE CREATED AUTHOR AUTHOR'S ORGANIZ ATION 02/18/2024 [facility] DATE CREATED AUTHOR AUTHOR'S ORGANIZ ATION 05/26/2024 [facility] DATE CREATED AUTHOR AUTHOR'S ORGANIZ ATION 08/11/2024 [facility] Specialists EPIC Reason for Visit (unrecogniz [...] Care Teams (unrecognized sec tion and content) Clinical Administrator Relationship Specialty Start Date End Date Ann-Marie Ash MD [address] [place] [address] PCP - General Family Medicine 07/03/22 Clinical Administrator Relationship Specialty Start Date End Date Ann-Marie Ash MD [address] [place] [phone] PCP - General Family Medicine 07/03/22 Clinical Administrator Relationship Specialty Start Date End Date Ann-Marie Ash MD [address] [place] [address]191 PCP - General Family Medicine 07/03/22 Clinical Administrator Relationship Specialty Start Date End Date Ann-Marie Ash MD [address] [place] [address]214 PCP - General Family Medicine 07/03/22 Clinical Administrator Relationship Specialty Start Date End Date Ann-Marie Ash MD [address] [place] [address] PCP - General Family Medicine 07/03/22 Clinical Administrator Relationship Specialty Start Date End Date Ann-Marie Ash MD [address] [place] [address] 8[address]17 PCP - General Family Medicine 07/03/22 Clinical Administrator Relationship Specialty Start Date End Date Ann-Marie Ash MD [address] [place] [address] [phone] PCP - General Family Medicine 07/03/22 Clinical Administrator Relationship Specialty Start Date End Date Ann-Marie Ash MD [address] [place] [address] 07700 PCP - General Family Medicine 07/03/22 Clinical Administrator Relationship Specialty Start Date End Date Ann-Marie Ash MD [address] [place] [address] 10297 PCP - General Family Medicine 07/03/22 Clinical Administrator Relationship Specialty Start Date End Date Ann-Marie Ash MD [address] [place] [address] 33473 PCP - General Family Medicine 07/03/22 Clinical Administrator Relationship Specialty Start Date End Date Ann-Marie Ash MD [address] [place] [address] [phone] PCP - General Family Medicine 07/03/22 Clinical Administrator Relationship Specialty Start Date End Date Ann-Marie Ash MD [address] [place] [address] 47683 PCP - General Family [facility] 07/03/22 Clinical Administrator Relationship Specialty Start Date End Date Ann-Marie Ash MD [address] [place] [address] 25711 PCP - General Family Medicine 07/03/22 FOR [...] BE BASED ON THE PRIMARY CLINICAL RECORDS. [facility] [employer] [facility]. provides no warranty or guarantee of the accuracy or completeness of information in this document.
--- OUTSIDE RECORDS SUMMARY | 2024-08-12 10:50 | XMS_ITS | Encounter Summary ---
Author Organization [employer] Address [id number] [address] [place] [address] Care Team Providers Care Pump Tester Name Role Phone Orlando Ash MD Primary Care Provider [phone] Encounter Details Date Type Department Care Team (Late st Contact Info) Description 07/03/2021 [facility]Gyne[facility] [address] [place] [phone] Rachel Dan, [facility] Social History Tobacco Use Types Packs/Day Years [...] 8 weeks and mom is traveling to [place] and patient would like to ride along. Patient miscarried back in January and her mom wants to be sure its safe for pt to ride in a car to and from [place]. She doesn't want to cause any kind [...] documented as of this encounter Care Teams Pump Tester Relationship Specialty Start Date End Date Orlando Ash MD [address] [place] [address] PCP - General Family Medicine 06/09/18 documented as of this encounter
--- OUTSIDE RECORDS SUMMARY | 2024-08-12 10:50 | XMS_ITS | Encounter Summary ---
Author Organization [employer] Address [id number] [address] [place] [address] Care Team Providers Care Conduit Helper Name Role Phone Orlando Ash MD Primary Care Provider [phone] Encounter Details Date Type Department Care Team (Late st Contact Info) Description 06/06/2021 Telephone [facility] Obstetrics/Gynecology [address] [place] [phone] Tory Calloway MA Social History Tobacco Use [...] documented as of this encounter Care Teams Conduit Helper Relationship Specialty Start Date End Date Orlando Ash MD [address] [place] [address] PCP - General Family Medicine 06/09/18 documented as of this encounter
[2024-08-12 13:19] VITALS: BP 112/62; PULSE 106; TEMP 36.1
== END 2024-08-12 13:56 | disposition home or self-care (01) ==
LOC: FBCO 11:15 → FBC 13:13
PROVIDERS: Visit Provider Obstetrics & Gynecology
DX: O26.893 Other specified pregnancy related conditions, third trimester (principal); Z3A.34 34 weeks gestation of pregnancy
CPT/HCPCS: 59025

== ENCOUNTER 2024-08-16 18:48 | Outpatient (OUT) | payer MEDICAID, SELFPAY ==
--- NOTE | 2024-08-16 18:51 | US_ITS ---
[address] [address] Patient Name: JEMIMA RAZO MRN: [id number] date: 2000 Sex: F Assigned Patient [facility]: [facility] Current Patient Location: [facility] Accession/Order Number: [id number] Exam Date: 08/17/2024 10:39 Report Date: 08/17/2024 10:41 At the request of: YURI REDDY DO Procedure: US OB BPP w non-stress BIOPHYSICAL PROFILE: CLINICAL INFORMATION: H/O LABOR [id number] COMPARISON: 08/09/2024 There is a single live intrauterine gestation in cephalic presentation. The reported gestational age is 35 weeks 2 days. The heart rate measures 161 beats per minute. A nuchal CORD is suspected. FINDINGS: TONE: 1 or more episodes of activity extension and flexion of extremity or opening and closing of the hand [Y] 2/2 GROSS BODY MOVEMENTS: 3 or more discrete body or limb movements [Y] 2/2 BREATHING MOVEMENTS: 1 or more episodes of breathing lasting at least 30 seconds [Y] 2/2 JACKELYN: A single deepest vertical pocket of amniotic fluid greater than 2 cm [Y] 2/2 JACKELYN: 19.6 cm. This is in upper normal range. Total score: 8/8 US/US OB BPP w non-stress IMPRESSION: NORMAL BIOPHYSICAL PROFILE. SUSPECTED NUCHAL CORD. Impression dictated by: Jing Hunt M.D. 08/17/2024 10:41 AM Dictation Location: [place] [address] Electronically authenticated by: [id number] Y Date: 08/17/2024 10:41
== END 2024-08-16 20:14 | disposition home or self-care (01) ==
LOC: US 18:48 → FBC 18:50
PROVIDERS: Visit Provider Obstetrics & Gynecology
DX: O26.893 Other specified pregnancy related conditions, third trimester (principal); O09.899 Supervision of other high risk pregnancies, unspecified trimester; Z3A.35 35 weeks gestation of pregnancy
CPT/HCPCS: 76818

== ENCOUNTER 2024-08-20 17:38 | Outpatient (OUT) | payer MEDICAID, SELFPAY ==
--- OUTSIDE RECORDS SUMMARY | 2023-11-15 13:15 | XMS_ITS ---
Author Organization [facility] vices Address [address] [place] [id number] Care Team Providers Care Net Washer Name Role Phone Chris Rodriguez Unavailable [phone] REASON FOR VISIT (DOMAIN ARCHITECT) Initial Evaluation- Bipolar, Anxiety, and Depression Social History Sex Assigned At : Social History Observation Description Sex Assigned At Female Encounters Encounter Location Date Provider Diagnosis Main [address] [place] [id number] 11/15/2023 Chris Rodriguez Plan Of Treatment No Information Progress Notes * Jeremy KINGEmilyOB:2000 (23 yo F)Acc No.[id number]:11/15/2023 Patient: Hawk CHAMPION Provider: NORMAN Gonzalez :2000 A ge:22 Y S ex:Female Date:11/15/2023 Address:[address], [id number] Subjective: * Chief Complaints: * 1 . (DOMAIN ARCHITECT) Initial Evaluation- Bipolar, Anxiety, and Depression. * Medical History: Objective: * Vitals: Assessment: Plan: * Treatment: Care Plan: * Problems: * Billing Information: * Visit Code: * Procedure Codes: Care Plan Details* * Electronic signature of NORMAN Escobedo on 08/20/2024 at 05:40 PM EDT Sign off status: Pending * Provider: NORMAN Gonzalez Date: 1 Generated for Nikunj zheng/Peace/eTransmitting on: 0 08/20/2024 05:40 PM EDT
--- OUTSIDE RECORDS SUMMARY | 2024-08-09 08:30 | XMS_ITS | Encounter Summary ---
Author Organization [facility] Address [address] [place] [address] Care Team Providers Care Presidential Helicopter Crew Chief Name Role Phone Orlando Ash MD Primary Care Provider [phone] Reason for Visit * Reason Comments Routine Visit Encounter Details Date Type Department Care Team (Late st Contact Info) Description 08/09/2024 8:30 AM EDT Routine [facility] BCP OB [address] [facility] [place] [address] Megan Diego, AUTOMOTIVE DESIGNER [address] [facility] [place] [address] Third trimester ([facility]); 33 weeks gestation of ([facility]) Social History Tobacco Use Types Packs/Day Years [...] Sign Reading Time Taken Comments Blood Pressure 110/58 08/09/2024 8:36 AM EDT Pulse - - Temperature - - Respiratory Rate - - Oxygen Saturation - - Inhaled Oxygen Concentration - - Weight 74.3 kg (163 lb 12 oz) 08/09/2024 8:36 AM EDT Height - - Body Mass Index 29.01 03/12/2022 12:00 PM EST documented in this encounter Progress Notes * Megan Diego, AUTOMOTIVE DESIGNER - 08/09/2024 8:30 AM EDT Reason for Appointment: Patient ID: [...] day smoker Heartburn History of miscarriage, currently ([facility]) HISTORY PAST MEDICAL HISTORY SOCIAL HISTORY Past Medical History: Diagnosis Date Carrier of spinal muscular atrophy Current every day smoker Heartburn History of miscarriage, currently ([facility]) Social History Tobacco Use Smoking status: Every [...] nursing note reviewed. Exam conducted with a pre owned sales manager present. Vitals: Estimated body mass index is 29.01 kg/m?? as calculated from the following: Height as of 03/12/22: 5' 3 . Weight as of this encounter: 163 lb 12 oz. BP: 110/58 No LMP recorded. Patient is . ASSESSMENT & PLAN ICD-10-CM 1. Third trimester ([facility]) Z34.93 POCT urinalysis dipstick manually resulted 2. 33 weeks gestation of ([facility]) Z3A.33 Return OB: Patient presents today for a routine obstetrics appointment. Patient is currently 33w6d . Patient states she is doing well but has complaints of being tired due to current . Patient has verbalizes frequent movement. labor precautions was discussed/given and patient was instructed to perform kick counts three times a day. Patient reports active movement and reports feeling mary kay vasquez contractions every 2 hours or so. She reports that she thinks she has lost her mucus plug and is concerned about labor with her last child delivering at 25 weeks. She has an NST scheduled today and examination reveals that she is 2 cm dilated. Patient is to present to OB for BPP/ NST and cervical length. Orders Placed This Encounter Procedures POCT urinalysis dipstick manually resulted Follow Up: Patient is to return to office in 2 week for routine OB appointment. Documented by Megan Diego NP on behalf of: Megan Diego NP documented in this encounter Plan of Treatment Upcoming Encounters Date Type Department Care Team (Late st Contact Info) Description 08/23/2024 1:00 PM EDT Routine [facility] BCP OB [address] [place] [address] Eusebio Lam, [address] [place] [address] documented as of this encounter Procedures Procedure Name Priority Date/Time Associated Diagnosis Comments POCT URINALYSIS DIPSTICK Routine 08/09/2024 8:40 AM EDT Third trimester ([facility]) documented in this encounter Results * POCT urinalysis dipstick manually resulted (08/09/2024 8:40 AM EDT) Color, UA Yellow Clarity, UA Clear Glucose, UA Negative Negative - 2000(110) ++++ mg/dL Bilirubin, UA Negative Negative - 4(70) +++ mg/dL Ketones, UA Negative Negative - 160(16) ++++ mg/dL Spec Grav, UA 1.015 1 - 1.03 Blood, UA Negative Negative - 50 Jian/mcL pH, UA 7.0 5 - 9 Protein, UA Negative Negative - 2000(20) ++++ mg/dL Urobilinogen, UA 0.2 0.2 - 12 mg/dL Leukocytes, UA Negative Negative - 500+++ Heriberto/mcL Nitrite, UA Negative Negative - Positive Urine 08/09/2024 8:40 AM EDT Megan Diego NP POINT OF CARE TEST ENTER/EDIT ORDERABLES Final Result documented in this encounter Visit Diagnoses Diagnosis Third trimester ([facility]) state, incidental 33 weeks gestation of ([facility]) documented in this encounter Care Teams Presidential Helicopter Crew Chief Relationship Specialty Start Date End Date Orlando Ash MD [address] [place] [address] PCP - General Family Medicine 07/03/22 documented as of this encounter
--- OUTSIDE RECORDS SUMMARY | 2024-08-17 10:00 | XMS_ITS | Encounter Summary ---
Author Organization [facility] Address [address] [place] [address] Care Team Providers Care Screening Technician Name Role Phone Orlando Ash MD Primary Care Provider [phone] Reason for Visit * Reason Comments Routine Visit Encounter Details Date Type Department Care Team (Late st Contact Info) Description 08/17/2024 10:00 AM EDT Routine [facility] [address] [place] [phone] Eusebio Lam, DO [address] [facility] [place] [address] Third trimester ([facility]); 35 weeks gestation of ([facility]) Social History Tobacco Use Types Packs/Day [...] this encounter Progress Notes * Sunshine Ye, SPEECH SCIENTIST - 08/17/2024 10:00 AM EDT Reason for [...] day smoker Heartburn History of miscarriage, currently ([facility]) HISTORY PAST MEDICAL HISTORY SOCIAL HISTORY Past Medical History: Diagnosis Date Carrier of spinal muscular atrophy Current every day smoker Heartburn History of miscarriage, currently ([facility]) Social History Tobacco Use Smoking status: [...] nursing note reviewed. Exam conducted with a electric meter repairer apprentice present. Vitals: Estimated body mass index is 28.7 kg/m?? as calculated from the following: Height as of 03/12/22: 5' 3 . Weight as of this encounter: 162 lb. BP: 108/60 No LMP recorded. Patient is . ASSESSMENT & PLAN ICD-10-CM 1. Third trimester ([facility]) Z34.93 POCT urinalysis dipstick manually resulted 2. 35 weeks gestation of ([facility]) Z3A.35 POCT urinalysis dipstick manually resulted Patient [...] PM EDT Routine [facility] [address] [place] [address] Eusebio Lam DO [address] [facility] [address] [place] [address] documented as of this encounter Procedures Procedure Name Priority Date/Time Associated Diagnosis Comments POCT URINALYSIS DIPSTICK Routine 08/17/2024 10:08 AM EDT Third trimester ([facility]) 35 weeks gestation of ([facility]) documented in this encounter Results * [...] this encounter Visit Diagnoses Diagnosis Third trimester ([facility]) state, incidental 35 weeks gestation of (HHS-HCC) documented in this encounter Care Teams Screening Technician Relationship Specialty Start Date End Date Orlando Ash MD [address] [place] [address] PCP - General Family Medicine 07/03/22 documented as of this encounter
--- OUTSIDE RECORDS SUMMARY | 2024-08-20 17:40 | XMS_ITS | Encounter Summary ---
Author Organization [facility] Address [address] [place] [address] Care Team Providers Care Solar Manager Name Role Phone Orlando Ash MD Primary Care Provider [phone] Encounter Details Date Type Department Care Team (Late st Contact Info) Description 05/25/2024 Orders Only [facility] [address] [place] [address] Carol Winter LPN [address] [place] [address] Social History Tobacco Use Types Packs/Day Years [...] Description 08/23/2024 1:00 PM EDT Routine [facility] OB [address] [place] [address] Eusebio Lam DO [address] [facility] [address] [place], [facility] documented as of this encounter Procedures Procedure Name Priority Date/Time Associated Diagnosis Comments PAP SMEAR Routine 05/16/2024 12:00 AM EDT documented in this encounter Results * Pap Smear (05/16/2024 12:00 AM EDT) Swab Cervical swab / Unknown us Eusebio Carole DO LAB CYTOLOGY ORDERABLES Final Re sult EXTERNAL LAB documented in this encounter Visit Diagnoses Not on filedocumented in this encounter Care Teams Solar Manager Relationship Specialty Start Date End Date Orlando Ash MD [address] [place] [address] PCP - General Family Medicine 07/03/22 documented as of this encounter
--- OUTSIDE RECORDS SUMMARY | 2024-08-20 17:40 | XMS_ITS | Encounter Summary ---
Author Organization [employer] Address [id number] [address] [place] [address] Care Team Providers Care Pet Care Technician Name Role Phone Orlando Ash MD Primary Care Provider [phone] Encounter Details Date Type Department Care Team (Late st Contact Info) Description 01/19/2024 Telephone [facility] Obstetrics/Gynecology [address] [place] [phone] [place], SLURRY CONTROL OPERATOR HELPER[facility] [address] [facility] [place] [address] Social History Tobacco Use Types Packs/Day Years [...] on filedocumented in this encounter Care Teams Pet Care Technician Relationship Specialty Start Date End Date Orlando Ash MD [address] [place] [address] PCP - General Family Medicine 06/09/18 documented as of this encounter
--- OUTSIDE RECORDS SUMMARY | 2024-08-20 17:40 | XMS_ITS | Encounter Summary ---
Author Organization [facility] Address [address] [facility] [place] [address] Care Team Providers Care Lead Producer Name Role Phone Orlando Ash MD Primary Care Provider [phone] Encounter Details Date Type Department Care Team (Late Contact Info) Description 02/25/2024 Abstract [facility] [address] [place] [phone] Eusebio Lam DO [address] [place] [id number] Social History Tobacco Use Types Packs/Day Years [...] Description 08/23/2024 1:00 PM EDT Routine [facility] [address] [place] [address] Eusebio Lam DO [facility] [place] [place], [place] [id number] documented as of this encounter Visit Diagnoses Not on filedocumented in this encounter Care Teams Lead Producer Relationship Specialty Start Date End Date Orlando Ash MD [address] [place] [address] PCP - General Family Medicine 07/03/22 documented as of this encounter
--- OUTSIDE RECORDS SUMMARY | 2024-08-20 17:40 | XMS_ITS | Encounter Summary ---
Author Organization [facility] Address [address] [place] [address] Care Team Providers Care Mandolin Repair Person Name Role Phone Orlando Ash MD Primary Care Provider [phone] Encounter Details Date Type Department Care Team (Late st Contact Info) Description 08/09/2024 Clinisync Result Encounter NOMS External Department Unsolicited Yuri Lam DO [address] [place], [place] [address] Social History Tobacco Use Types Packs/Day Years [...] PM EDT Routine [facility] B[facility] [place] [address] [place] [phone] Yuri Lam DO [address] [place] [address] documented as of this encounter Procedures Procedure Name Priority Date/Time Associated Diagnosis Comments US OB BPP W NON-STRESS 08/09/2024 1:42 PM EDT documented in this encounter Results * US OB BPP W NON-STRESS (08/09/2024 1:42 PM EDT) Anatomical Region Laterality Modality Other 08/09/2024 1:42 PM EDT Narrative 08/09/2024 1:45 [place] [address] Ultrasound Report Signed Patient: HAWK KING MR#: [id number] : 2000 Acct:[id number] Age/Sex: 23 / F ADM Date: 08/09/24 Loc: US Attending Dr: Yuri Lam D.O. Ordering Physician: Yuri Lam D.O. Date of Service: 08/09/24 Procedure(s): US OB BPP w non-stress Accession Number(s): [id number] cc: Yuri Lam D.O.; Physician,Non-Staff M.DTaylor The [place] [address] Patient Name: HAWK KING MRN: [id number] date: 2000 Sex: F Assigned Patient Location: [facility] Current Patient Location: Accession/Order Number: [id number] Exam Date: 08/09/2024 13:42 Report Date: 08/09/2024 13:42 At the request of: YURI LAM DO Procedure: US OB BPP w non-stress Biophysical profile. Reason for exam: Large for dates. COMPARISON: BPP 08/02/2024. TECHNIQUE: Transabdominal imaging of the gravid uterus was obtained. FINDINGS: Liquid Chlorine Operator reports a BPP of 8 out of 8. JACKELYN is normal at 17.9 cm. heart rate 167 bpm. US/US OB BPP w non-stress Impression: BPP 8 out of 8. Impression dictated by: Wojciech Farah Jr., D.O. 08/09/2024 1:42 PM Dictation Location: [place] [address] Electronically authenticated by: [id number] Y Date: 08/09/2024 13:42 Dictated By: Wojciech Farah M.D. Signed By: 08/09/24 1345 DD/ 134 TD/TT: Speedboat Operator: Procedure Note Radiology, Radiologist, MD - 08/09/2024 [place] [address] Ultrasound Report Signed Patient: HAWK KING CMR#: [id number] : 2000Acct:[id number] Age/Sex: 23 / FADM Date: 08/09/24 Loc: US Attending Dr: Yuri Lam D.O. Ordering Physician: Yuri Lam D.O. Date of Service: 08/09/24 Procedure(s): US OB BPP w non-stress Accession Number(s): [id number] cc: Yuri Lam D.O.; Physician,Non-Staff Sindy [place] [address] Patient Name: HAWK KING MRN: [id number] date: 2000 Sex: F Assigned Patient Location: [facility] Current Patient Location: Accession/Order Number: [id number] Exam Date: 08/09/2024 13:42 Report Date: 08/09/2024 13:42 At the request of: YURI LAM DO Procedure: US OB BPP w non-stress Biophysical profile. Reason for exam: Large for dates. COMPARISON: BPP 08/02/2024. TECHNIQUE: Transabdominal imaging of the gravid uterus was obtained. FINDINGS: Liquid Chlorine Operator reports a BPP of 8 out of 8. JACKELYN is normal at 17.9cm. heart rate 167 bpm. US/US OB BPP w non-stress Impression: BPP 8 out of 8. Impression dictated by: Wojciech Farah Jr., D.O. 08/09/2024 1:42 PM Dictation Location: [place] [address] Electronically authenticated by: [id number] Y Date: 3:42 Dictated By: Wojciech Farah M.D. Signed By:08/09/24 1345 DD/ 1342 TD/TT: Speedboat Operator: us Yuri Carole DO [facility] Final Result documented in this encounter Visit Diagnoses Not on filedocumented in this encounter Care Teams Mandolin Repair Person Relationship Specialty Start Date End Date Orlando Ash MD [address] [place] [address] PCP - General Family Medicine 07/03/22 documented as of this encounter
--- OUTSIDE RECORDS SUMMARY | 2024-08-20 17:40 | XMS_ITS | Encounter Summary ---
Author Organization [facility] Address [address] [facility] [place] [address] Care Team Providers Care Mill Tender Warm Up Name Role Phone Orlando Ash MD Primary Care Provider [phone] Encounter Details Date Type Department Care Team (Late st Contact Info) Description 08/09/2024 Bamboo flowsheet [facility] BCP OB [address] [facility] [place] [address] Megan Diego, SCHEDULE PLANNING MANAGER [address] [facility] [place] [address] Social History Tobacco Use Types Packs/Day [...] PM EDT Routine [facility] BCP OB [address] [place] [address] Eusebio Lam, [address] [facility] [address] [place], [facility] documented as of this encounter Visit Diagnoses Not on filedocumented in this encounter Care Teams Mill Tender Warm Up Relationship Specialty Start Date End Date Orlando Ash MD [address] [place] [address] PCP - General Family Medicine 07/03/22 documented as of this encounter
--- OUTSIDE RECORDS SUMMARY | 2024-08-20 17:40 | XMS_ITS | Encounter Summary ---
Author Organization [facility] Address [address] [place] [address] Care Team Providers Care Electronic Semiconductor Processor Name Role Phone Orlando Ash MD Primary Care Provider [phone] Encounter Details Date Type Department Care Team (Late Contact Info) Description 05/25/2024 Abstract [facility] [address] [place] [address] Eusebio Lam DO [facility] [address] [place], [place] [address] Social History Tobacco Use Types Packs/Day Years [...] Description 08/23/2024 1:00 PM EDT Routine [facility] OB [address] [place] [address] Eusebio Lam DO [facility] [address] [place], [place] [address] documented as of this encounter Visit Diagnoses Not on filedocumented in this encounter Care Teams Electronic Semiconductor Processor Relationship Specialty Start Date End Date Orlando Ash MD [address] [place] [address] PCP - General Family Medicine 07/03/22 documented as of this encounter
--- OUTSIDE RECORDS SUMMARY | 2024-08-20 17:40 | XMS_ITS | Encounter Summary ---
Author Organization [facility] Address [address] [facility] [place] [address] Care Team Providers Care Typing Element Machine Operator Name Role Phone Orlando Ash MD Primary Care Provider [phone] Encounter Details Date Type Department Care Team (Late Contact Info) Description 03/08/2024 Abstract [facility] [address] [place] [address] Eusebio Lam DO [address] [place] [phone] Social History Tobacco Use Types Packs/Day Years [...] Department Care Team (Late Contact Info) Description 08/23/2024 1:00 PM EDT Routine [facility] [address] [place] [address] Eusebio Lam DO [facility] [place], [place] [address] documented as of this encounter Visit Diagnoses Not on filedocumented in this encounter Care Teams Typing Element Machine Operator Relationship Specialty Start Date End Date Orlando Ash MD [address] [place] [address] PCP - General Family Medicine 07/03/22 documented as of this encounter
--- OUTSIDE RECORDS SUMMARY | 2024-08-20 17:40 | XMS_ITS | Encounter Summary ---
Author Organization [facility] Address [address] [place] [address] Care Team Providers Care Correction Officer Reformatory Name Role Phone Orlando Ash MD Primary Care Provider [phone] Encounter Details Date Type Department Care Team (Late st Contact Info) Description 12/29/2022 Clinisync Result Encounter NOMS External Department Unsolicited Yuri Lam, [facility] [place] [address] Social History Tobacco Use Types Packs/Day Years [...] Routine [facility] BCP OB [address] [place] [address] Yuri Lam DO [facility] [place] [address] documented as of this encounter Procedures Procedure Name Priority Date/Time Associated Diagnosis Comments US OB BPP W NON-STRESS 12/29/2022 2:24 PM EST documented in this encounter Results * US OB BPP W NON-STRESS (12/29/2022 2:24 PM EST) Anatomical Region Laterality Modality Other 12/29/2022 2:24 PM EST Narrative 12/29/2022 2:24 [place] [address] Ultrasound Report Signed Patient: HAWK KING MR#: [id number] : 2000 Acct:[id number] Age/Sex: 22 / F ADM Date: Loc: [facility] [address]: Yuri Lam D.O. Ordering Physician: Yuri Lam D.O. Date of Service: 12/29/22 Procedure(s): US OB BPP w non-stress Accession Number(s): [id number] cc: Yuri Lam D.O.; Physician,Non-Staff M.Sigrid [place] [id number] Patient Name: HAWK KING MRN: [id number] date: 2000 Sex: F Assigned Patient Location: [facility] Current Patient Location: [facility] Accession/Order Number: [id number] Exam Date: 12/29/2022 13:06 Report Date: 12/29/2022 [...] Signed By: 12/29/22 1427 DD/ 23 TD/TT: Soil And Plant Scientist: Procedure Note Radiology, Radiologist, MD - 12/29/2022 [place] [address] Ultrasound Report Signed Patient: HAWK KING CMR#: [id number] : 2000Acct:[id number] Age/Sex: Date: Loc: [facility] 254-[address]: Yuri Lam D.O. Ordering Physician: Yuri Lam D.O. Date of Service: 12/29/22 Procedure(s): US OB BPP w non-stress Accession Number(s): [id number] cc: Yuri Lam D.O.; Physician,Non-Staff M.DTaylor The [place] [id number] Patient Name: HAWK KING MRN: [id number] date: 2000 Sex: F Assigned Patient Location: [facility] Current Patient Location: [facility] Accession/Order Number: [id number] Exam Date: 12/29/2022 13:06 Report Date: 12/29/2022 [...] M.D. Signed By:12/29/22 1427 DD/ 142 TD/TT: Soil And Plant Scientist: us Yuri Carole DO [facility] Final Result documented in this encounter Visit Diagnoses Not on filedocumented in this encounter Care Teams Correction Officer Reformatory Relationship Specialty Start Date End Date Orlando Ash MD [address] [place], [place] [address] PCP - General Family Medicine 07/03/22 documented as of this encounter
--- OUTSIDE RECORDS SUMMARY | 2024-08-20 17:40 | XMS_ITS | Encounter Summary ---
Author Organization [facility] Address [address] [place] [address] Care Team Providers Care Water Superintendent Name Role Phone Janee Del Valle MD Unavailable Orlando Ash MD Primary Care Provider [phone] Encounter Details Date Type Department Care Team (Late st Contact Info) Description 07/03/2022 Clinisync Result Encounter [facility]S External Department Unsolicited Eusebio Lam, DO [address] [place] [address] Social History Tobacco Use Types Packs/Day Years [...] Routine [facility] BCP OB [address] [place] [phone] Eusebio Lam DO [address] [place] [address] documented as of this encounter Procedures Procedure [...] Date: 2022-07-03 17:20 us Eusebio Carole DO [facility] Final Result documented in this encounter Visit Diagnoses Not on filedocumented in this encounter Care Teams Water Superintendent Relationship Specialty Start Date End Date Janee Del Valle MD [address] [place] [address] PCP - [place] [employer] 03/11/22 Orlando Ash MD [address] [place] [address] PCP - General Family Medicine 07/03/22 documented as of this encounter
--- OUTSIDE RECORDS SUMMARY | 2024-08-20 17:40 | XMS_ITS | Clinical Summary ---
Author Organization [employer] [facility] Address [id number] [address] [place] [address] Care Team Providers Care Flux Mixer Name Role Phone Orlando Ash MD Primary Care Provider Allergies No known active allergies Medications 48-izzw-qckbug 9-dha 31 mg iron- 1 mg-200 mg [...] AM EDT Office Visit Maternal- Medicine at [facility] [address] [place] [address] Nidhi Nicole MD 22 weeks gestation of (Primary Dx); History of gestational hypertension; History of delivery, currently ; Vaping nicotine dependence, non-tobacco product; Marijuana use during ; Genetic carrier 05/24/2024 9:03 AM EDT - 05/24/2024 11:59 PM EDT Hospital Encounter [facility] US Imaging [address] [place] [address] Screening, , for anatomic survey Discharge Disposition: [...] Procedure Name Priority Date/Time Associated Diagnosis Comments [facility] COMPREHENSIVE ANATOMIC SURVEY Routine 05/24/2024 10:46 AM EDT Screening, , for anatomic survey CHLAMYDIA/GC BY PCR SINDI SWAB Routine 06/24/2021 8:36 AM EDT care in first trimester PAP SMEAR Routine 02/25/2021 12:56 PM EST Cervical cancer screening Well woman exam from Last 3 Months or Most Recently Relevant to Health Maintenance Results * US [facility] COMPREHENSIVE ANATOMIC SURVEY (05/24/2024 10:46 AM EDT) Anatomical Region Laterality Modality OB-ALUMINUM POOL INSTALLER Ultrasound 05/24/2024 9:25 AM EDT Narrative 05/24/2024 5:38 PM EDT NAME: CHRISTINE ONOFRE : 2000 SEX: F Accession Number: [id number] ORDERING PHYSICIAN: VELMA GARCIA REFERRING PHYSICIAN: YURI REDDY Coding ----- --------- Procedures 60505: Ultrasound, uterus, real time with image documentation, and maternal evaluation plus detailed anatomic examination, transabdominal approach;single or first gestation 15440: Transvaginal Ultrasound (OB) Indication ----- --------- Screening for Anatomic Survey , Screening for cervical length, history of thyroid disease, History of gestational hypertension, History of prior with delivery, Abnormal finding on screening of mother - + CF & SMA carrier, Smoking in - vapes, marijuana use in . Supervision of high risk - Hypoplastic NB History ----- --------- OB History 5. Para 2 [id number] Current ----- --------- Cell free DNA Low [...] 1 lb 10 oz EFW by Hadlock ([id number]) Head / Face / Neck Biometry: Cephalic index 0.72 3% [facility] Patient Services Rep 2.5 mm CM 6.3 mm 69% Nicolaides [...] view. RVOT view. LVOT view. 3-vessel view. 5-nchstc-kiabrcc view. Situs. Aortic arch view. Bicaval view. [...] structural abnormalities. Recommendations ----- --------- Please see [facility] documentation from today. Subsequent follow up or other follow up as clinically determined by primary OB provider unless otherwise specified by M. Results forwarded to ordering provider so they can follow up with the patient as necessary. Procedure Note Nidhi Nicole MD - 05/24/2024 NAME: CHRISTINE ONOFRE : 2000 SEX: F Accession Number: [id number] ORDERING PHYSICIAN: VELMA GARCIA REFERRING PHYSICIAN: YURI REDDY Coding ----- --------- Procedures 34373: Ultrasound, uterus, real time with imagedocumentation, and maternal evaluation plus detailed anatomic examination, transabdominalapproach;single or first gestation 50943: Transvaginal Ultrasound (OB) Indication ----- --------- Screening for Anatomic Survey , Screening for cervical length, history ofthyroid disease, History of gestational hypertension, History of prior with delivery, Abnormalfinding on screening of mother - + CF & SMA carrier, Smoking in - vapes, marijuana use in .Supervision of high risk - Hypoplastic NB History ----- --------- OB History 5. Para 2 [id number] Current ----- --------- Cell free DNA Low [...] 1 lb 10 oz EFW by Hadlock ([id number]) Head / Face / Neck Biometry: Cephalic index 0.72 3% [facility] Patient Services Rep 2.5 mm CM 6.3 mm 69% Nicolaides [...] 4-chamber view. RVOT view. LVOT view. 3-vessel view.8-vsfieq-jhyebtk view. Situs. Aortic arch view. Bicaval view. [...] structural abnormalities. Recommendations ----- --------- Please see [facility] documentation from today. Subsequent follow up or other follow up as clinically determined byprimary OB provider unless otherwise specified by [facility]. Results forwarded to ordering provider so they can follow up with thepatient as necessary. Velma Garcia MD [facility] US ORDERABLES Final Result * Chlamydia/GC by PCR Sindi Swab (06/24/2021 8:36 AM EDT) Specimen source CERVICAL 10:25 AM EDT [facility] Chlamydia DNA PCR Negative Negative^N egative 06/26/2021 6:02 AM EDT [facility] Comment: Chlamydia trachomatis not detected by nucleic acid amplification. This does not exclude the possibility of infection because results are dependent on adequate specimen collection. Gonorrhea DNA PCR Negative Negative^N egative 06/26/2021 6:02 AM EDT [facility] Comment: Neisseria gonorrhoeae not detected by nucleic acid amplification. This does not exclude the possibility of infection because results are dependent on adequate specimen collection. GENS 06/24/2021 8:36 AM EDT 06/25/2021 10:25 AM EDT us Lima Gonzalez APRN-[facility]CRO[facility] - GENERAL O RDERABLES Final Result [facility] [address] [place] [address] * Pap Smear (02/25/2021 12:56 PM EST) 02/25/2021 12:5 6 PM EST 02/26/2021 12:58 PM EST Narrative COPATH - 02/27/2021 2:27 PM EST [facility] [address] [place] [address] Gynecologic Cytology Consultation Patient Name: HAWK KING : 2000 (Age: 20) Gender: F Taken: 02/25/2021 Reported: 02/27/2021 Physician(s): Lima Gonzalez CNM ([phone]) Copy To: Med. Rec. #: [id number] Acct: # [id number] Final Cytologic Interpretation ThinPrep Pap Test (Cervical): Satisfactory for evaluation. A transformation zone component was not noted. NEGATIVE FOR INTRAEPITHELIAL LESION OR MALIGNANCY. Shift in missy suggestive of bacterial vaginosis. Comment: This ThinPrep slide could not be successfully imaged by the op5 ThinPrep Imaging System so it was manually screened. [facility]/02/27/2021 Interpretation performed at [employer], [address] [place] [address], License number: [id number]. Electronically Signed Out By PAUL Madrigal(ASCP) Date of Last Menstrual Period: 02/20/2021 Other Clinical Conditions: Z12.4 Screening for malignant neoplasm of cervix Z01.419 Broomcorn Grader exam wo/abn findings Source of Specimen ThinPrep Pap Test (Cervical) Thin Prep Pap (ALUMINUM POOL INSTALLER) Fee Code(s): G0145, G0145 <CR>, G0123 The Pap test is a screening test with an inherent, but low, probability of error. The Pap test is primarily effective for the diagnosis and prevention of squamous cell carcinoma. Regular screening is critical for prevention. ThinPrep liquid-based slides, which meet the Print Graphic Designer criteria for automated screening, have been screened by the ThinPrep Imaging System (as of 10/25/06) along with an additional manual rescreening by a cutter down and, if indicated, by a pathologist. Lima Gonzalez BACTERIOLOGIST [facility] PATHOLOGY/CYTOLOGY ORDER SYED Final Result COPATH from Last 3 Months or Most Recently Relevant to Health Maintenance Insurance [employer] Care Teams Flux Mixer Relationship Specialty Start Date End Date Orlando Ash MD [address] [place] [id number] PCP - General Family Medicine 06/09/18
--- OUTSIDE RECORDS SUMMARY | 2024-08-20 17:40 | XMS_ITS | Encounter Summary ---
Author Organization [facility] Address [address] [place] [address] Care Team Providers Care Organic Chemist Name Role Phone Janee Del Valle MD Unavailable Orlando Ash MD Primary Care Provider [phone] Encounter Details Date Type Department Care Team (Late Contact Info) Description 09/03/2022 Abstract [facility] OB [address] [facility] [address] Radha Avila PA [address] [place] [address] [address] [place], [place] [address] Social History Tobacco Use Types Packs/Day Years [...] Description 08/23/2024 1:00 PM EDT Routine [facility] OB [address] [facility] [place] [address] Eusebio Lam, [address] [facility] [address] [place], [place] [address] documented as of this encounter Visit Diagnoses Not on filedocumented in this encounter Care Teams Organic Chemist Relationship Specialty Start Date End Date Janee Del Valle MD [address] [place] [address] PCP - Sri Gallegos 03/11/22 Orlando Ash MD [address] [place], [place] [id number] PCP - General Family Medicine 07/03/22 documented as of this encounter
--- OUTSIDE RECORDS SUMMARY | 2024-08-20 17:40 | XMS_ITS | Encounter Summary ---
Author Organization [facility] Address [address] [facility] [place] [address] Care Team Providers Care Collar Closer Lockstitch Name Role Phone Orlando Ash MD Primary Care Provider [phone] Encounter Details Date Type Department Care Team (Late Contact Info) Description 03/16/2024 Abstract [facility] [address] [place] [address] Eusebio Lam DO [address] [place] [id number] Social History Tobacco Use Types Packs/Day Years [...] Description 08/23/2024 1:00 PM EDT Routine N[facility] [address] [place] [address] Eusebio Lam DO [facility] [place], [place] [address] documented as of this encounter Visit Diagnoses Not on filedocumented in this encounter Care Teams Collar Closer Lockstitch Relationship Specialty Start Date End Date Orlando Ash MD [address] [place] [address] PCP - General Family Medicine 07/03/22 documented as of this encounter
--- OUTSIDE RECORDS SUMMARY | 2024-08-20 17:40 | XMS_ITS | Encounter Summary ---
Author Organization [facility] Address [address] [facility] [place] [address] Care Team Providers Care Commercial Assistant Name Role Phone Orlando Ash MD Primary Care Provider [phone] Encounter Details Date Type Department Care Team (Late st Contact Info) Description 12/29/2022 Clinisync Result Encounter NOMS External Department Unsolicited Yuri Lam [facility] [place] [address] Social History Tobacco Use Types Packs/Day Years [...] [facility] BCP OB [address] [place] [address] Yuri Lam DO [facility] [place] [address] documented as of this encounter Procedures Procedure Name Priority Date/Time Associated Diagnosis Comments US OB PLACENTA 12/29/2022 2:24 PM EST documented in this encounter Results * US OB PLACENTA (12/29/2022 2:24 PM EST) Anatomical Region Laterality Modality Other 12/29/2022 2:24 PM EST Narrative 12/29/2022 2:24 PM EST [address] [address] Ultrasound Report Signed Patient: HAWK KING MR#: [id number] : 2000 Acct:[id number] Age/Sex: 22 / F ADM Date: Loc: [facility] 254-[address]: Yuri Lam D.O. Ordering Physician: Yuri Lam D.O. Date of Service: 12/29/22 Procedure(s): US OB placenta Accession Number(s): [id number] cc: uYri Lam D.O.; Physician,Non-Staff [place] [address] Patient Name: HAWK KING MRN: [facility]:[id number] date: 2000 Sex: F Assigned Patient Location: [facility] Current Patient Location: [facility] Accession/Order Number: [id number] Exam Date: 12/29/2022 13:06 Report Date: 12/29/2022 [...] 14:24 Dictated By: Natahsa Thapa M.D. Signed By: 12/29/22 1427 DD/ 1424 TD/TT: Video Games Storywriter: Procedure Note Radiology, Radiologist, MD - 12/29/2022 [place] [address] Ultrasound Report Signed Patient: HAWK KING CMR#: [id number] : 2000Acct:[id number] Age/Sex: 22 FADM Date: Loc: [facility] 254- Attending Dr: Yuri Lam D.O. Ordering Physician: Yuri Lam D.O. Date of Service: 12/29/22 Procedure(s): US OB placenta Accession Number(s): [id number] cc: Yuri Lam D.O.; Physician,Non-Staff Sindy The [place] [address] Patient Name: HAWK KING MRN: [id number] date: 2000 Sex: F Assigned Patient Location: [facility] Current Patient Location: [facility] Accession/Order Number: [id number] Exam Date: 12/29/2022 13:06 Report Date: 12/29/2022 [...] M.D. Signed By:12/29/22 1427 DD/ 142 TD/TT: Video Games Storywriter: us Yuri Carole DO [facility] Final Result documented in this encounter Visit Diagnoses Not on filedocumented in this encounter Care Teams Commercial Assistant Relationship Specialty Start Date End Date Orlando Ash MD [address] [place] [address] PCP - General Family Medicine 07/03/22 documented as of this encounter
--- OUTSIDE RECORDS SUMMARY | 2024-08-20 17:40 | XMS_ITS | Encounter Summary ---
Author Organization [facility] Address [address] [place] [address] Care Team Providers Care Decator Operator Name Role Phone Orlando Ash MD Primary Care Provider [phone] Encounter Details Date Type Department Care Team (Late Contact Info) Description 08/17/2024 Bamboo flowsheet [facility] OB [address] [facility] [address] Eusebio Lam DO [address] [place] [address] Marisa [place], [place] [address] Social History Tobacco Use Types Packs/Day Years [...] Description 08/23/2024 1:00 PM EDT Routine [facility] OB [address] [place] [address] Eusebio Lam [facility] [place], [facility] documented as of this encounter Visit Diagnoses Not on filedocumented in this encounter Care Teams Decator Operator Relationship Specialty Start Date End Date Orlando Ash MD [address] [place] [address] PCP - General Family Medicine 07/03/22 documented as of this encounter
--- OUTSIDE RECORDS SUMMARY | 2024-08-20 17:40 | XMS_ITS | Encounter Summary ---
Author Organization [facility] Address [address] [place] [address] Care Team Providers Care Boat Motor Mechanic Name Role Phone Orlando Ash MD Primary Care Provider [phone] Encounter Details Date Type Department Care Team (Late st Contact Info) Description 08/17/2024 Clinisync Result Encounter NOMS External Department Unsolicited Yuri Lam DO [address] [place], [facility] Social History Tobacco Use Types [...] Routine [facility] BCP OB [address] [place] [address] Yuri Lam DO [address] [place] [address] documented as of this encounter Procedures Procedure Name Priority Date/Time Associated Diagnosis Comments US OB BPP W NON-STRESS 08/17/2024 10:41 AM EDT documented in this encounter Results * US OB BPP W NON-STRESS (08/17/2024 10:41 AM EDT) Anatomical Region Laterality Modality Other 08/17/2024 10:4 1 AM EDT Narrative 08/17/2024 10:44 [place] [address] Ultrasound Report Signed Patient: HAWK KING MR#: [id number] : 2000 Acct:[id number] Age/Sex: 23 / F ADM Date: 08/16/24 Loc: US Attending Dr: Yuri Lam D.O. Ordering Physician: Yuri Lam D.O. Date of Service: 08/16/24 Procedure(s): US OB BPP w non-stress Accession Number(s): [id number] cc: Yuri Lam D.O.; Physician,Non-Staff M.DTaylor The [place] [address] Patient Name: HAWK KING MRN: [id number] date: 2000 Sex: F Assigned Patient Location: [facility] Current [place] [facility] Accession/Order Number: [id number] Exam Date: 08/17/2024 10:39 Report Date: 08/17/2024 10:41 At the request of: YURI LAM DO Procedure: US OB BPP w non-stress BIOPHYSICAL PROFILE: CLINICAL INFORMATION: H/O LABOR O09.899 COMPARISON: 08/09/2024 There is a single live intrauterine gestation in cephalic presentation. The reported gestational age is 35 weeks 2 days. The heart rate measures 161 beats per minute. A nuchal CORD is suspected. FINDINGS: TONE: 1 or more episodes of [...] greater than 2 cm [Y] 2/2 JACKELYN: 19.6 cm. This is in upper normal range. Total score: 8/8 US/US OB BPP w non-stress IMPRESSION: NORMAL BIOPHYSICAL PROFILE. SUSPECTED NUCHAL CORD. Impression dictated by: Jing Hunt M.D. 08/17/2024 10:41 AM Dictation Location: [place] [address] Electronically authenticated by: [id number] Y Date: 08/17/2024 10:41 Dictated By: Jing Hunt M.D. Signed By: 08/17/24 1044 DD/ 1041 TD/TT: Quality Control Tech: Procedure Note Radiology, Radiologist, MD - 08/17/2024 [place] [address] Ultrasound Report Signed Patient: HAWK KING CMR#: [id number] : 2000Acct:[id number] Age/Sex: 23 / FADM Date: 08/16/24 Loc: US Attending Dr: Yuri aLm D.O. Ordering Physician: Yuri Lam D.O. Date of Service: 08/16/24 Procedure(s): US OB BPP w non-stress Accession Number(s): [id number] cc: Yuri Lam D.O.; Physician,Non-Staff Sindy The [place] [address] Patient Name: HAWK KING MRN: [id number] date: 2000 Sex: F Assigned Patient Location: [facility] Current [place] [facility] Accession/Order Number: [id number] Exam Date: 08/17/2024 10:39 Report Date: 08/17/2024 10:41 At the request of: YURI LAM DO Procedure: US OB BPP w non-stress BIOPHYSICAL PROFILE: CLINICAL INFORMATION: H/O LABOR O09.899 COMPARISON: 08/09/2024 There is a single live intrauterine gestation in cephalic presentation.The reported gestational age is 35 weeks 2 days. The heart ratemeasures 161 beats per minute. A nuchal CORD is suspected. FINDINGS: TONE: 1 or more episodes of [...] greater than 2 cm [Y] 2/2 JACKELYN: 19.6 cm. This is in upper normal range. Total score: 8/8 US/US OB BPP w non-stress IMPRESSION: NORMAL BIOPHYSICAL PROFILE. SUSPECTED NUCHAL CORD. Impression dictated by: Jing Hunt M.D. 08/17/2024 10:41 AM Dictation Location: [place] [address] Electronically authenticated by: [id number] Y Date: 0:41 Dictated By: Jing Hunt M.D. Signed By:08/17/24 1044 DD/ 1041 TD/TT: Quality Control Tech: us Yuri Carole DO [facility] Final Result documented in this encounter Visit Diagnoses Not on filedocumented in this encounter Care Teams Boat Motor Mechanic Relationship Specialty Start Date End Date Orlando Ash MD [address] [place] [address] PCP - General Family Medicine 07/03/22 documented as of this encounter
--- OUTSIDE RECORDS SUMMARY | 2024-08-20 17:40 | XMS_ITS | Encounter Summary ---
Author Organization [facility] Address [address] [facility] [place] [address] Care Team Providers Care Experimental Worker Name Role Phone Orlando Ash MD Primary Care Provider [phone] Encounter Details Date Type Department Care Team (Late st Contact Info) Description 01/04/2023 Clinisync Result Encounter NOMS External Department Unsolicited Yuri Lam [facility] [address] Social History Tobacco Use Types Packs/Day Years [...] Routine [facility] BCP OB [address] [place] [address] Yuri Lam DO [facility] [place] [address] documented as of this encounter Procedures Procedure Name Priority Date/Time Associated Diagnosis Comments US OB GROWTH 01/04/2023 3:14 PM EST documented in this encounter Results * US OB GROWTH (01/04/2023 3:14 PM EST) Anatomical Region Laterality Modality Other 01/04/2023 3:14 PM EST Narrative 01/04/2023 3:14 PM EST [address] [address] Ultrasound Report Signed Patient: HAWK KING MR#: [id number] : 2000 Acct:[id number] Age/Sex: 22 / F ADM Date: 01/04/23 Loc: US Attending Dr: Yuri Lam D.O. Ordering Physician: Yuri Lam D.O. Date of Service: 01/04/23 Procedure(s): US OB growth Accession Number(s): [id number] cc: Yuri Lam D.O.; Physician,Non-Staff M.Sigrid The [place] [address] Patient Name: HAWK KING MRN: [id number] date: 2000 Sex: F Assigned Patient Location: Current Patient Location: [facility] Accession/Order Number: [id number] Exam Date: 01/04/2023 12:57 Report Date: 01/04/2023 [...] Signed By: 01/04/23 1516 DD/ 13 TD/TT: Presentation Team Member: Procedure Note Radiology, Radiologist, MD - 01/04/2023 [place] [address] Ultrasound Report Signed Patient: HAWK KING CMR#: [id number] : 2000Acct:[id number] Age/Sex: 22 / FADM Date: 01/04/23 Loc: US Attending Dr: Yuri Lam D.O. Ordering Physician: Yuri Lam D.O. Date of Service: 01/04/23 Procedure(s): US OB growth Accession Number(s): [id number] cc: Yuri Lam D.O.; Physician,Non-Staff Sindy The [place] [id number] Patient Name: HAWK KING MRN: [id number] date: 2000 Sex: F Assigned Patient Location: US Current Patient Location: [facility] Accession/Order Number: [id number] Exam Date: 01/04/2023 12:57 Report Date: 01/04/2023 [...] Mcwilliams M.D. Signed By:01/04/231515 DD/ 13 TD/TT: Presentation Team Member: us Yuri Carole DO [facility] Final Result documented in this encounter Visit Diagnoses Not on filedocumented in this encounter Care Teams Experimental Worker Relationship Specialty Start Date End Date Orlando Ash MD [address] [place] [address] PCP - General Family Medicine 07/03/22 documented as of this encounter
--- OUTSIDE RECORDS SUMMARY | 2024-08-20 17:40 | XMS_ITS | Encounter Summary ---
Author Organization [facility] Address [address] [facility] [place] [address] Care Team Providers Care Packing Machine Inspector Name Role Phone Janee Del Valle MD Unavailable Orlando Ash MD Primary Care Provider [phone] Encounter Details Date Type Department Care Team (Late st Contact Info) Description 08/03/2022 Abstract [facility] BCP OB [address] [place] [address] Eusebio Lam, [facility] [place], [place] [address] Social History Tobacco Use Types Packs/Day Years [...] Description 08/23/2024 1:00 PM EDT Routine [facility] OB [address] [place] [address] Eusebio Lam DO [facility] [place] [address] documented as of this encounter Visit Diagnoses Not on filedocumented in this encounter Care Teams Packing Machine Inspector Relationship Specialty Start Date End Date Janee Del Valle MD [address] [place] [address] PCP - [place] Commercial 03/11/22 Orlando Ash MD [address] [place] [address] PCP - General Family Medicine 07/03/22 documented as of this encounter
--- OUTSIDE RECORDS SUMMARY | 2024-08-20 17:40 | XMS_ITS | Encounter Summary ---
Author Organization [facility] Address [address] [place] [address] Care Team Providers Care Heating Operators Engineer Name Role Phone Janee Del Valle MD Unavailable Orlando Ash MD Primary Care Provider [phone] Encounter Details Date Type Department Care Team (Late Contact Info) Description 08/06/2022 Abstract [facility] OB [address] [place] [address] [place] [address] [place], [place] [address] Social History Tobacco Use Types Packs/Day Years [...] Description 08/23/2024 1:00 PM EDT Routine [facility] OB [address] [place] [address] [place] [address] [place], [place] [address] documented as of this encounter Visit Diagnoses Not on filedocumented in this encounter Care Teams Heating Operators Engineer Relationship Specialty Start Date End Date Janee Del Valle MD [address] [place] [address] PCP - Sri Gallegos 03/11/22 Orlando Ash MD [address] [place], [place] [address] PCP - General Family Medicine 07/03/22 documented as of this encounter
--- OUTSIDE RECORDS SUMMARY | 2024-08-20 17:40 | XMS_ITS | Encounter Summary ---
Author Organization [facility] tem Address [id number] [address] [place] [address] Care Team Providers Care Paper Goods Machine Set Up Operator Name Role Phone Orlando Ash MD Primary Care Provider [phone] Encounter Details Date Type Department Care Team (Late st Contact Info) Description 04/21/2024 Orders Only Maternal- Medicine at [facility] [address] [place] [address] Eusebio Lam R, DO [address] [facility] [place] [address] Social History Tobacco Use Types Packs/Day Years [...] documented as of this encounter Care Teams Paper Goods Machine Set Up Operator Relationship Specialty Start Date End Date Orlando Ash MD [address] [place] [address] PCP - General Family Medicine 06/09/18 documented as of this encounter
--- OUTSIDE RECORDS SUMMARY | 2024-08-20 17:40 | XMS_ITS | Patient Health Record ---
Author Organization [facility] vices Address [address] [place], [place] [address] Care Team Providers Care Business Continuity Global Director Name Role Phone Chris Rodriguez Unavailable [phone] Reason For Referral No Information Social History Sex Assigned At : Social History Observation Description Sex Assigned At Female Plan Of Treatment No Information Insurance Providers Payer Name Payer Address Payer Phone Subscriber Number Group Number Insured Name Patient Relationship to Insured Coverage Start Date Coverage End Date [facility] [address] [phone] [id number] Hawk King Self - patient is the insured
--- OUTSIDE RECORDS SUMMARY | 2024-08-20 17:40 | XMS_ITS | Encounter Summary ---
Author Organization [facility] Address [address] [place] [address] Care Team Providers Care Research Nurse Name Role Phone Orlando Ash MD Primary Care Provider [phone] Encounter Details Date Type Department Care Team (Late st Contact Info) Description 08/09/2024 Clinisync Result Encounter NOMS External Department Unsolicited Yuri Lam DO [address] [place], [place] [address] Social History Tobacco Use Types Packs/Day Years [...] [facility] BCP OB [address] [place] [address] Yuri Lam DO [address] [place] [address] documented as of this encounter Procedures Procedure Name Priority Date/Time Associated Diagnosis Comments US OB CERVICAL LENGTH 08/09/2024 1:33 PM EDT documented in this encounter Results * US OB CERVICAL LENGTH (08/09/2024 1:33 PM EDT) Anatomical Region Laterality Modality Other 08/09/2024 1:33 PM EDT Narrative 08/09/2024 1:36 [place] [address] Ultrasound Report Signed Patient: HAWK KING MR#: [id number] : 2000 Acct:[id number] Age/Sex: 23 / F ADM Date: 08/09/24 Loc: [facility] 250-[address]: Yuri Lam D.O. Ordering Physician: Yuri Lam D.O. Date of Service: 08/09/24 Procedure(s): US OB cervical length Accession Number(s): [id number] cc: Yuri Lam D.O.; Physician,Non-Staff M.DTaylor [place] [address] Patient Name: HAWK KING MRN: [id number] date: 2000 Sex: F Assigned Patient Location: [facility] Current Patient Location: [facility] Accession/Order Number: [id number] Exam Date: 08/09/2024 13:32 Report Date: 08/09/2024 [...] Jr., D.O. 08/09/2024 1:33 PM Dictation [facility] Electron[facility] authenticated by: [id number] Y Date: 08/09/2024 13:33 Dictated By: Wojciech Farah M.D. Signed By: 08/09/24 1336 DD/ 32 TD/TT: Compliance And Control Analyst: Procedure Note Radiology, Radiologist, - 08/09/2024 [place] [address] Ultrasound Report Signed Patient: HAWK KING CMR#: [id number] : 2000Acct:[id number] Age/Sex: 23 / FADM Date: 08/09/24 Loc: [facility] 250-[address]: Yuri Lam D.O. Ordering Physician: Yuri Lam D.O. Date of Service: 08/09/24 Procedure(s): US OB cervical length Accession Number(s): [id number] cc: Yuri Lam D.O.; Physician,Non-Staff Sindy The [place] [address] Patient Name: HAWK KING MRN: [id number] date: 2000 Sex: F Assigned Patient Location: [facility] Current Patient Location: [facility] Accession/Order Number: [id number] Exam Date: 08/09/2024 13:32 Report Date: 08/09/2024 [...] Jr., D.O. 08/09/2024 1:33 PM Dictation [facility] Electronically authenticated by: [id number] Y Date: 3:33 Dictated By: Wojciech Farah M.D. Signed By:08/09/24 1336 DD/ 1333 TD/TT: Compliance And Control Analyst: us Yuri Carole DO [facility] Final Result documented in this encounter Visit Diagnoses Not on filedocumented in this encounter Care Teams Research Nurse Relationship Specialty Start Date End Date Orlando Ash MD [address] [place] [address] PCP - General Family Medicine 07/03/22 documented as of this encounter
--- OUTSIDE RECORDS SUMMARY | 2024-08-20 17:40 | XMS_ITS | Encounter Summary ---
Author Organization [facility] Address [address] [place] [address] Care Team Providers Care X Ray Operator Name Role Phone Orlando Ash MD Primary Care Provider [phone] Encounter Details Date Type Department Care Team (Late st Contact Info) Description 12/29/2022 Clinisync Result Encounter N[facility]S External Department Unsolicited Yuri Lam, [facility] [place] [address] Social History Tobacco Use Types Packs/Day Years [...] [facility] BCP OB [address] [place] [address] Yuri Lam DO [facility] [place] [address] documented as of this encounter Procedures Procedure Name Priority Date/Time Associated Diagnosis Comments US OB CERVICAL LENGTH 12/29/2022 2:24 PM EST documented in this encounter Results * US OB CERVICAL LENGTH (12/29/2022 2:24 PM EST) Anatomical Region Laterality Modality Other 12/29/2022 2:24 PM EST Narrative 12/29/2022 2:24 PM EST [address] [address] Ultrasound Report Signed Patient: HAWK KING MR#: [id number] : 2000 Acct:[id number] Age/Sex: 22 / F ADM Date: Loc: [facility] 254-[address]: Yuri Lam D.O. Ordering Physician: Yuri Lam D.O. Date of Service: 12/29/22 Procedure(s): US OB cervical length Accession Number(s): [id number] cc: Yuri Lam D.O.; Physician,Non-Staff M.Sigrid [address] [address] Patient Name: HAWK KING MRN: [id number] date: 2000 Sex: F Assigned Patient Location: [facility] Current Patient Location: [facility] Accession/Order Number: [id number] Exam Date: 12/29/2022 13:06 Report Date: 12/29/2022 [...] Signed By: 12/29/22 1427 DD/ 1424 TD/TT: Meter Technician: Procedure Note Radiology, Radiologist, MD - 12/29/2022 [place] [address] Ultrasound Report Signed Patient: HAWK KING CMR#: [id number] : 2000Acct:[id number] Age/Sex: Date: Loc: [facility] 254-[address]: Yuri Lam D.O. Ordering Physician: Yuri Lam D.O. Date of Service: 12/29/22 Procedure(s): US OB cervical length Accession Number(s): [id number] cc: Yuri Lam D.O.; Physician,Non-Staff Sindy The [place] [id number] Patient Name: HAWK KING MRN: [id number] date: 2000 Sex: F Assigned Patient Location: [facility] Current Patient Location: [facility] Accession/Order Number: [id number] Exam Date: 12/29/2022 13:06 Report Date: 12/29/2022 [...] M.D. Signed By:12/29/22 1427 DD/ 1424 TD/TT: Meter Technician: us Yuri Lam DO [facility] Final Result documented in this encounter Visit Diagnoses Not on filedocumented in this encounter Care Teams X Ray Operator Relationship Specialty Start Date End Date Orlando Ash MD [address] [place] [address] PCP - General Family Medicine 07/03/22 documented as of this encounter
--- OUTSIDE RECORDS SUMMARY | 2024-08-20 17:40 | XMS_ITS | Encounter Summary ---
Author Organization [facility] Address [address] [facility] [place] [address] Care Team Providers Care Automation Clerk Name Role Phone Janee Del Valle MD Unavailable Orlando Ash MD Primary Care Provider [phone] Encounter Details Date Type Department Care Team (Late st Contact Info) Description 07/20/2022 Abstract [facility] BCP OB [address] [facility] [place] [address] Eusebio Lam, [facility] [place], [place] [id number] Social History Tobacco Use Types Packs/Day Years [...] Description 08/23/2024 1:00 PM EDT Routine [facility] OB [address] [facility] [place] [address] Eusebio Lam DO [facility] [place] [address] documented as of this encounter Visit Diagnoses Not on filedocumented in this encounter Care Teams Automation Clerk Relationship Specialty Start Date End Date Janee Del Valle MD [address] [place] [address] PCP - [place] Commercial 03/11/22 Orlando Ash MD [address] [place] [address] PCP - General Family Medicine 07/03/22 documented as of this encounter
--- OUTSIDE RECORDS SUMMARY | 2024-08-20 17:40 | XMS_ITS | Encounter Summary ---
Author Organization [facility] Address [address] [place] [address] Care Team Providers Care City Planning Aide Name Role Phone Orlando Ash MD Primary Care Provider [phone] Encounter Details Date Type Department Care Team (Late st Contact Info) Description 02/24/2024 Abstract NOM[facility] [address] [place] [address] Sunshine Ye LPN Social History Tobacco [...] Description 08/23/2024 1:00 PM EDT Routine NOMS [address] [place] [address] Eusebio Lam [address] [place], [place] [address] documented as of this encounter Visit Diagnoses Not on filedocumented in this encounter Care Teams City Planning Aide Relationship Specialty Start Date End Date Orlando Ash MD [address] [place] [address] PCP - General Family Medicine 07/03/22 documented as of this encounter
--- OUTSIDE RECORDS SUMMARY | 2024-08-20 17:41 | XMS_ITS | Encounter Summary ---
Author Organization [facility] Address [address] [place] [address] Care Team Providers Care Tailer In Name Role Phone Orlando Ash MD Primary Care Provider [phone] Encounter Details Date Type Department Care Team (Late st Contact Info) Description 05/30/2024 Results Follow-Up [facility] OB [address] [facility] [place] [address] Carol Winter LPN [facility] [place] [address] Social History Tobacco Use Types Packs/Day Years [...] Description 08/23/2024 1:00 PM EDT Routine [facility] OB [address] [place] [address] Eusebio Lam, DO [address] [place] [address] documented as of this encounter Visit Diagnoses Not on filedocumented in this encounter Care Teams Tailer In Relationship Specialty Start Date End Date Orlando Ash MD [address] [place], [place] [id number] PCP - General Family Medicine 07/03/22 documented as of this encounter
--- OUTSIDE RECORDS SUMMARY | 2024-08-20 17:41 | XMS_ITS | Encounter Summary ---
Author Organization [employer] Address [id number] [address] [place] [address] Care Team Providers Care Ripper Operator Name Role Phone Orlando Ash MD Primary Care Provider [phone] Encounter Details Date Type Department Care Team (Late st Contact Info) Description 07/03/2021 [facility]phone [facility]Gyne[facility] [address] [place] [phone] Rachel Dan, [facility] Social History Tobacco Use Types Packs/Day Years [...] 8 weeks and mom is traveling to [place] and patient would like to ride along. Patient miscarried back in January and her mom wants to be sure its safe for pt to ride in a car to and from [place]. She doesn't want to cause any kind of demise to fetus. Pleaseadvise. Thanks! * Telephone Encounter - KRISTYN Mcdowell - 07/03/2021 11:30 AM EDT Patient may travel to [place]. She should make frequent stops to stretch [...] documented as of this encounter Care Teams Ripper Operator Relationship Specialty Start Date End Date Orlando Ash MD [address] [place] [address] PCP - General Family Medicine 06/09/18 documented as of this encounter
--- OUTSIDE RECORDS SUMMARY | 2024-08-20 17:41 | XMS_ITS | Clinical Summary ---
Author Organization [facility] Address [address] [place] [address] Care Team Providers Care Regional Coordinator Name Role Phone Ann-Marie Ash MD Primary Care Provider [phone] Allergies No known active allergies Medications MV-Min-Fe Fum-FA-DHA ( 1 PO) Take 1 each by mouth Daily Active Active Problems Problem Noted Date Diagnosed Date Missed menses 07/02/2022 Estimated Date of Delivery Comme nts Yes 09/21/2024 Based on Ultraso und Encounters Date Type Department Care Team Description 08/17/2024 10:00 AM EDT Routine [facility] [address] [place] [phone] Yuri Lam, Third trimester ([facility]); 35 weeks gestation of ([facility]) 08/17/2024 Clinisync Result Encounter [facility] External Department Unsolicited Yuri Lam DO 08/17/2024 Bamboo flowsheet [facility] [address] [place] [address] Yuri Lam, 08/09/2024 8:30 AM EDT Routine [facility] [place] [address] [place] [address] Megan Diego NP Third trimester ([facility]); 33 weeks gestation of ([facility]) 08/09/2024 Clinisync Result Encounter [facility] External Department Unsolicited Yuri Lam DO 08/09/2024 Clinisync Result Encounter [facility] External Department Unsolicited Yuri Lam, DO 08/09/2024 Bamboo flowsheet [facility] OB [address] [place] [address] Megan Diego, ANI 08/03/2024 Clinisync Result Encounter [facility] External Department Unsolicited Yuri Lam, DO 08/03/2024 Clinisync Result Encounter [facility]OMS External Department Unsolicited CaroleYuri, DO 07/26/2024 11:10 AM EDT Routine [facility] OB [address] [place] [address] Yuri Lam, DO Third trimester ([facility]); 31 weeks gestation of ([facility]) 07/26/2024 Clinisync Result Encounter [facility] External Department Unsolicited Yuri Lam, DO 07/26/2024 Bamboo flowsheet [facility] OB [address] [place] [phone] Yuri Lam, 07/13/2024 10:30 AM EDT Routine [facility] OB [address] [place] [address] Yuri Lam, DO Third trimester ([facility]); 30 weeks gestation of ([facility]); H/O delivery, currently ([facility]) 07/13/2024 Bamboo flowsheet [facility] OB [address] [place] [phone] Yuri Lam, 06/28/2024 10:10 AM EDT Routine [facility] OB [address] [place] [phone] Radha Avila PA Second trimester ([facility]); 27 weeks gestation of ([facility]) 06/28/2024 9:30 AM EDT Ancillary Procedure [facility] B[facility] OB [address] [place] [address] H/O delivery, currently ([facility]) 06/13/2024 11:40 AM EDT Routine [facility] [address] [place] [address] Yuri Lam DO Second trimester ([facility]); 25 weeks gestation of ([facility]); H/O delivery, currently ([facility]); Vapes nicotine containing substance 06/13/2024 Bamboo flowsheet [facility] [address] [place] [phone] Yuri Lam DO 05/30/2024 Results Follow-Up [facility] [address] [place] [address] Carol Winter LPN 05/25/2024 Orders Only [facility] [address] [place] [address] Carol Winter, BERT 05/25/2024 Abstract [facility] [address] [place] [address] Yuri Lam DO from Last 3 [...] (162 lb) 08/17/2024 9:59 AM EDT Height 160 cm (5' 3 ) 03/12/2022 12:00 PM EST Body Mass Index 28.7 03/12/2022 12:00 PM EST Plan of Treatment Upcoming Encounters Date Type Department Care Team (Late st Contact Info) Description 08/23/2024 1:00 PM EDT Routine [facility] [address] [place] [address] Yuri Lam, DO [address] [facility] [place] [address] Procedures Procedure Name Priority Date/Time Associated Diagnosis Comments US OB BPP W NON-STRESS 08/17/2024 10:41 AM EDT POCT URINALYSIS DIPSTICK Routine 08/17/2024 10:08 AM EDT Third trimester ([facility]) 35 weeks gestation of ([facility]) US OB BPP W NON-STRESS 08/09/2024 1:42 PM EDT US OB CERVICAL LENGTH 08/09/2024 1:33 PM EDT POCT URINALYSIS DIPSTICK Routine 08/09/2024 8:40 AM EDT Third trimester ([facility]) US OB BPP W NON-STRESS 08/03/2024 8:32 AM EDT US OB GROWTH 08/03/2024 8:32 AM EDT ALL CBC WITH AUTO DIFF Routine 12:13 PM EDT MLR HEMOGLOBIN A1C Routine 07/26/2024 12 :13 PM EDT POCT URINALYSIS DIPSTICK Routine 07/26/2024 11:35 AM EDT Third trimester ([facility]) POCT URINALYSIS DIPSTICK Routine 06/28/2024 10:19 AM EDT Second trimester ([facility]) US OB FOLLOW UP TRANSABDOMINAL APPROACH Routine 06/28/2024 10:08 AM EDT H/O delivery, currently ([facility]) US OB 14+ WEEKS ANATOMY SCAN 05/24/2024 5:38 PM EDT from Last 3 Months Results * US OB BPP W NON-STRESS (08/17/2024 10:41 AM EDT) Only the most recent of3 resultswithin the time period is included. Anatomical Region Laterality Modality Other 08/17/2024 10:4 1 AM EDT Narrative 08/17/2024 10:44 [place] [address] Ultrasound Report Signed Patient: HAWK KING MR#: [id number] : 2000 Acct:[id number] Age/Sex: 23 / F ADM Date: 08/16/24 Loc: US Attending Dr: Yuri Lam D.O. Ordering Physician: Yuri Lam D.O. Date of Service: 08/16/24 Procedure(s): US OB BPP w non-stress Accession Number(s): [id number] cc: Yuri Lam D.O.; Physician,Non-Staff M.D. The [address] [address] Patient Name: HAWK KING MRN: [id number] date: 2000 Sex: F Assigned Patient Location: [facility] Current Patient Location: [facility] Accession/Order Number: [id number] Exam Date: 08/17/2024 10:39 Report Date: 08/17/2024 [...] Hunt M.D. 08/17/2024 10:41 AM Dictation Location: [place] [address] Electronically authenticated by: [id number] Y Date: 08/17/2024 10:41 Dictated By: Jing Hunt M.D. Signed By: 08/17/24 1044 DD/ 1041 TD/TT: Senior Quality Manager: Procedure Note Radiology, Radiologist, - 08/17/2024 [place] [address] Ultrasound Report Signed Patient: HAWK KING CMR#: [id number] : 2000Acct:[id number] Age/Sex: 23 / FADM Date: 08/16/24 Loc: US Attending Dr: Yuri Lam D.O. Ordering Physician: Yuri Lam D.O. Date of Service: 08/16/24 Procedure(s): US OB BPP w non-stress Accession Number(s): [id number] cc: Yuri Lam D.O.; Physician,Non-Staff Sindy The [place] [id number] Patient Name: HAWK KING MRN: [id number] date: 2000 Sex: F Assigned Patient Location: [facility] Current Patient Location: [facility] Accession/Order Number: [id number] Exam Date: 08/17/2024 10:39 Report Date: 08/17/2024 [...] Hunt M.D. 08/17/2024 10:41 AM Dictation Location: [place] [address] Electronically authenticated by: [id number] Y Date: 0:41 Dictated By: Jing Hunt M.D. Signed By:08/17/24 1044 DD/ 1041 TD/TT: Senior Quality Manager: us Yuri Lam DO [facility] Final Result * (ABNORMAL) POCT urinalysis dipstick manually resulted (08/17/2024 10:08 AM EDT) Only the most recent of4 [...] Positive Urine 08/17/2024 10:0 8 AM EDT us Yuri Lam DO POINT OF CARE TEST ENTER/EDIT OR DERABLES Final Result * US OB CERVICAL LENGTH (08/09/2024 1:33 PM EDT) Anatomical Region Laterality Modality Other 08/09/2024 1:33 PM EDT Narrative 08/09/2024 1:36 [place] [address] Ultrasound Report Signed Patient: HAWK KING MR#: [id number] : 2000 Acct:[id number] Age/Sex: 23 / F ADM Date: 08/09/24 Loc: [place] [address]: Yuri Lam D.O. Ordering Physician: Yuri Lam D.O. Date of Service: 08/09/24 Procedure(s): US OB cervical length Accession Number(s): [id number] cc: Yuri Lam D.O.; Physician,Non-Staff M.Sigrid [place] [address] Patient Name: HAWK KING MRN: [id number] date: 2000 Sex: F Assigned Patient Location: [facility] Current Patient Location: [facility] Accession/Order Number: [id number] Exam Date: 08/09/2024 13:32 Report Date: 08/09/2024 [...] Jr., D.O. 08/09/2024 1:33 PM Dictation Location: [place] [address] Electronically authenticated by: [id number] Y Date: 08/09/2024 13:33 Dictated By: Wojciech Farah M.D. Signed By: 08/09/24 1336 DD/ 1333 TD/TT: Senior Quality Manager: Procedure Note Radiology, Radiologist, MD - 08/09/2024 [place] [address] Ultrasound Report Signed Patient: HAWK KING CMR#: [id number] : 2000Acct:[id number] Age/Sex: 23 / FADM Date: 08/09/24 Loc: [place] [address]: Yuri Lam D.O. Ordering Physician: Yuri Lam D.O. Date of Service: 08/09/24 Procedure(s): US OB cervical length Accession Number(s): [id number] cc: Yuri Lam D.O.; Physician,Non-Staff Sindy The [place] [address] Patient Name: HAWK KING MRN: [id number] date: 2000 Sex: F Assigned Patient Location: [facility] Current Patient Location: [facility] Accession/Order Number: [id number] Exam Date: 08/09/2024 13:32 Report Date: 08/09/2024 [...] Jr., D.O. 08/09/2024 1:33 PM Dictation Location: [place] [address] Electronically authenticated by: [id number] Y Date: 3:33 Dictated By: Wojciech Farah M.D. Signed By:08/09/24 1336 DD/ 32 TD/TT: Senior Quality Manager: us Yuri Lam DO [facility] Final Result * US OB GROWTH (08/03/2024 8:32 AM EDT) Anatomical Region Laterality Modality Other 08/03/2024 8:32 AM EDT Narrative 08/03/2024 8:35 [place] [address] Ultrasound Report Signed Patient: HAWK KING MR#: [id number] : 2000 Acct:[id number] Age/Sex: 23 / F ADM Date: 08/02/24 Loc: US Attending Dr: Yuri Lam D.O. Ordering Physician: Yuri Lam D.O. Date of Service: 08/02/24 Procedure(s): US OB growth Accession Number(s): [id number] cc: Yuri Lam D.O.; Physician,Non-Staff MLeopoldo [address] [address] Patient Name: HAWK KING MRN: [id number] date: 2000 Sex: F Assigned Patient Location: [facility] Current Patient Location: Accession/Order Number: [id number] Exam Date: 08/03/2024 08:23 Report Date: 08/03/2024 08:32 At the request of: YURI LAM DO Procedure: US OB BPP w non-stress CLINICAL INFORMATION: H/O LABOR O09.899 ULTRASOUND OB GROWTH COMPARISON: None There is a single live intrauterine gestation in cephalic presentation. There is cardiac and somatic activity. The heart rate [id number] beats per minute. The placenta is posterior. [...] Hunt M.D. 08/03/2024 8:32 AM Dictation Location: [place] [address] Electronically authenticated by: [id number] Y Date: 08/03/2024 08:32 Dictated By: Jing Hunt M.D. Signed By: 08/03/2435 DD/ TD/TT: Senior Quality Manager: Procedure Note Radiology, Radiologist, - 08/03/2024 The [place] [id number] Ultrasound Report Signed Patient: HAWK KING CMR#: [id number] : 2000Acct:[id number] Age/Sex: 23 / FADM Date: 08/02/24 Loc: US Attending Dr: Yuri Lam D.O. Ordering Physician: Yuri Lam D.O. Date of Service: 08/02/24 Procedure(s): US OB growth Accession Number(s): [id number] cc: Yuri Lam D.O.; Physician,Non-Staff Sindy The [address] [address] Patient Name: HAWK KING MRN: [facility]:[id number] date: 2000 Sex: F Assigned Patient Location: [facility] Current Patient Location: Accession/Order Number: [id number] Exam Date: 08/03/2024 08:23 Report Date: 08/03/2024 08:32 At the request of: YURI LAM DO Procedure: US OB BPP w non-stress CLINICAL INFORMATION: H/O LABOR O09.899 ULTRASOUND OB GROWTH COMPARISON: None There is a single live intrauterine gestation in cephalic presentation.There is cardiac and somatic activity. The heart rate uqtkzefb211cfnmp per minute. The placenta is posterior. The [...] Hunt M.D. 08/03/2024 8:32 AM Dictation Location: [place] [address] Electronically authenticated by: [id number] Y Date: 508:32 Dictated By: Jing Hunt M.D. Signed By:08/03/24 0835 DD/ 0832 TD/TT: Senior Quality Manager: Yuri Carole DO [facility] Final Result * MLR HEMOGLOBIN A1C (07/26/2024 12:13 PM EDT) Pathologist [facility] GLYCOHEMOGLOBIN A1C 4.8 4.5 - 6.2 % [facility] Comment: ADA RECOMMENDED LIMIT 4.0 - 6.0 ADA THERAPEUTIC TARGET < 7.0 ACTION SUGGESTED > 7.0 ESTIMATED AVERAGE GLUCOSE 91 mg/dL TB 07/26/2024 12:1 3 PM EDT 07/26/2024 12:39 PM EDT Narrative [facility] - 07/26/2024 1:18 PM EDT Yuri Carole DO [facility] Final Result [facility] * (ABNORMAL) ALL CBC WITH AUTO DIFF (07/26/2024 12:13 PM EDT) Pathologist [facility] WBC 10.4 4.0 - 11.0 10 3/uL [...] Yuri Carole DO [facility] Final Result [facility] * US OB follow up transabdominal [...] II, MD, PHD at 30-Jun-2024 12:16:48 PM [facility] Procedure Note Ann-Marie Tamayo MD - [...] ANN-MARIE TAMAYO II, MD, PHD 12:16:48 PM [facility] us Yuri Lam DO IMG OB US PROCEDURES Final Resul t * US OB 14+ weeks anatomy scan (05/24/2024 5:38 PM EDT) Anatomical Region Laterality Modality Body Ultrasound 05/24/2024 5:38 PM EDT Narrative 05/24/2024 5:38 PM EDT THIS EXAM WAS PERFORMED AT [facility] NAME: DUNG ONOFRE : 2000 SEX: F Accession Number: [id number] ORDERING PHYSICIAN: VELMA GARCIA REFERRING PHYSICIAN: YURI LAM Coding ----- --------- Procedures 92787: Ultrasound, uterus, real time with image documentation, and maternal evaluation plus detailed anatomic examination, transabdominal approach;single or first gestation 60585: Transvaginal Ultrasound (OB) Indication ----- --------- Screening for Anatomic Survey , Screening for cervical length, history of thyroid disease, History of gestational hypertension, History of prior with delivery, Abnormal finding on screening of mother - + CF SMA carrier, Smoking in - vapes, marijuana use in . Supervision of high risk - Hypoplastic NB History ----- --------- OB History 5. Para 2 [id number] Current ----- --------- Cell free DNA Low [...] 1 lb 10 oz EFW by Hadlock ([id number]-NQ-[id number]-FL) Head / Face / Neck Biometry: Cephalic index 0.72 3% Nicolaides Burrer Operator 2.5 mm CM 6.3 mm 69% [...] view. RVOT view. LVOT view. 3-vessel view. 6-lbnyeh-czyzjhv view. Situs. Aortic arch view. Bicaval view. [...] - 05/24/2024 THIS EXAM WAS PERFORMED AT [facility] NAME: DUNG ONOFRE : 2000 SEX: F Accession Number: [id number] ORDERING PHYSICIAN: VELMA GARCIA REFERRING PHYSICIAN: YURI LAM Coding ----- --------- Procedures 62742: Ultrasound, uterus, real time with imagedocumentation, and maternal evaluation plus detailed anatomic examination, transabdominalapproach;single or first gestation 59364: Transvaginal Ultrasound (OB) Indication ----- --------- Screening for Anatomic Survey , Screening for cervical length, history ofthyroid disease, History of gestational hypertension, History of prior with delivery, Abnormalfinding on screening of mother - + CF SMA carrier, Smoking in - vapes, marijuana use in .Supervision of high risk - Hypoplastic NB History ----- --------- OB History 5. Para 2 [id number] Current ----- --------- Cell free DNA Low [...] 1 lb 10 oz EFW by Hadlock ([id number]-[id number]-FL) Head / Face / Neck Biometry: Cephalic index 0.72 3% Nicolaides Burrer Operator 2.5 mm CM 6.3 mm 69% [...] 4-chamber view. RVOT view. LVOT view. 3-vessel view.3-qvbyvy-yjpjczy view. Situs. Aortic arch view. Bicaval view. [...] De La O us Yuri Lam DO [facility] OB US PROCEDURES Final Resul t from Last 3 Months Insurance [id number] [place] [address] [employer] [place] Care Teams Regional Coordinator Relationship Specialty Start Date End Date Ann-Marie Ash MD [address] [place], [place] [id number] PCP - General Family Medicine 07/03/22
--- OUTSIDE RECORDS SUMMARY | 2024-08-20 17:41 | XMS_ITS | Encounter Summary ---
Author Organization [employer] Address [id number] [address] [place] [address] Care Team Providers Care Consulting Practice Manager Name Role Phone Orlando Ash MD Primary Care Provider [phone] Encounter Details Date Type Department Care Team (Late st Contact Info) Description 06/06/2021 Telephone [facility] Obstetrics/Gynecology [address] [place] [phone] Tory Calloway MA Social History Tobacco Use [...] documented as of this encounter Care Teams Consulting Practice Manager Relationship Specialty Start Date End Date Orlando Ash MD [address] [place] [address] PCP - General Family Medicine 06/09/18 documented as of this encounter
--- OUTSIDE RECORDS SUMMARY | 2024-08-20 17:41 | XMS_ITS | Encounter Summary ---
Author Organization [employer] Address [id number] [address] [place] [address] Care Team Providers Care Sole Skiver Name Role Phone Orlando Ash MD Primary Care Provider Encounter Details Date Type Department Care Team (Late st Contact Info) Description 07/21/2021 Orders Only [facility] [address] [facility] [address] [place] [phone] Genny Mosquera, MARTY care in first trimester; [...] documented as of this encounter Care Teams Sole Skiver Relationship Specialty Start Date End Date Orlando Ash MD [address] [place] [address] PCP - General Family Medicine 06/09/18 documented as of this encounter
--- OUTSIDE RECORDS SUMMARY | 2024-08-20 17:41 | XMS_ITS | CCD ---
Author Organization [facility] Care Team Providers Care Intelligence Officer Basic Name Role Phone ANN-MARIE ASH Primary Care Unavailable KARIS MARI Attending Unavailable ASH, ANN-MARIE Dc Primary Care Unavailable KOSTA OLZANO Attending Unavailable ASH, ANN-MARIE Dc Primary Care [...] Unavailable Ash, Ann-Marie Vanda Primary Care Provider [phone] CAROLE ., DR WELCH Consulting Unavailable CAROLE [...] Unavailable CAROLE ., DR WELCH Admitting Unavailable FLUSHING, DR CHEMA Argueta Consulting Unavailable MISC, DR [...] DEL VALLE, Ann-Marie Dc Primary Care Provider [phone] MIHIR DEL VALLE, ANN-MARIE Dc Primary Care [...] Propensity to adverse reactions to drug (disorder) [facility] Repository Medications Current Medications Medication Drug Class(es) [...] [33 weeks gestation of ] 08-09-2024 Episodic Residual codes; unclassified (2 sources) Gestation period, 35 weeks; Translations: [35 weeks gestation of ] 08-17-2024 Episodic Substance-related disorders (2 sources) Nicotine dependence, [...] Test Name Value Interpretation Reference Range Facility OB BPP W NON-STRESS on 08-17-2024 [place] [address] Ultrasound Report Signed Patient: HAWK KING MR#: [id number] : 2000 Acct:[id number] Age/Sex: 23 / F ADM Date: 08/16/24 Loc: US Attending Dr: Eusebio Lam D.O. Ordering Physician: Eusebio Lam D.O. Date of Service: 08/16/24 Procedure(s): US OB BPP w non-stress Accession Number(s): [id number] cc: Eusebio Lam D.O.; Physician,Non-Staff MLeopoldo The [place] [id number] Patient Name: HAWK KING MRN: [id number]:[id number] date: 2000 Sex: F Assigned Patient Location: [facility] Current Patient Location: [facility] Accession/Order Number: [id number] Exam Date: 08/17/2024 10:39 Report Date: 08/17/2024 10:41 At the request of: EUSEBIO LAM DO [...] greater than 2 cm [Y] 2/2 DALTON: 19.6 cm. This is in upper normal range. Total score: 8/8 US/US OB BPP w non-stress IMPRESSION: NORMAL BIOPHYSICAL PROFILE. SUSPECTED NUCHAL CORD. Impression dictated by: Jing Hunt M.D. 08/17/2024 10:41 AM Dictation Location: [place] [address] Electronically authenticated by: [id number] Y Date: 08/17/2024 10:41 Dictated By: Jing Hunt M.D. Signed By: 08/17/24 1044 DD/ 1041 TD/TT: Restrike Hammer Operator: [facility] Radiology, Radiologist, MD - 08/17/2024 [place] [address] Ultrasound Report Signed Patient: HAWK KING MR#: [id number] : 2000 Acct:[id number] Age/Sex: 23 / F ADM Date: 08/16/24 Loc: US Attending Dr: Eusebio Lam D.O. Ordering Physician: Eusebio Lam D.O. Date of Service: 08/16/24 Procedure(s): US OB BPP w non-stress Accession Number(s): [id number] cc: Eusebio Lam D.O.; Physician,Non-Staff Sindy [place] [id number] Patient Name: HAWK KING MRN: [id number] date: 2000 Sex: F Assigned Patient Location: [facility] Current Patient Location: [facility] Accession/Order Number: [id number] Exam Date: 08/17/2024 10:39 Report Date: 08/17/2024 10:41 At the request of: EUSEBIO LAM DO [...] greater than 2 cm [Y] 2/2 DALTON: 19.6 cm. This is in upper normal range. Total score: 8/8 US/US OB BPP w non-stress IMPRESSION: NORMAL BIOPHYSICAL PROFILE. SUSPECTED NUCHAL CORD. Impression dictated by: Jing Hunt M.D. 08/17/2024 10:41 AM Dictation Location: [place] [address] Electronically authenticated by: [id number] Y Date: 08/17/2024 10:41 Dictated By: Jing Hunt M.D. Signed By: 08/17/24 1044 DD/ 1041 TD/TT: Restrike Hammer Operator: [facility] Radiology Study observation (narrative) [facility] US OB BPP W NON-STRESS Ordered By: Radiologist Radiology on 08-17-2024 [facility] Work Phone: Urinalysis macro (dipstick) panel (U)on 08-17-2024 Bilirubin, UA Negative Negative - 4(70) +++ mg/dL [facility] Blood, UA Negative Negative - 50 Jian/mcL [facility] Clarity, UA Clear [facility] Color, UA Yellow [facility] Glucose, UA Negative Negative - 1999(110) ++++ mg/dL [facility] Interpretation and review of laboratory results Abnormal [facility] Ketones, UA Negative Negative - 160(16) ++++ mg/dL [facility] Leukocytes, UA Negative Negative - 500+++ Heriberto/mcL [facility] Nitrite, UA Negative Negative - Positive [facility] pH, UA 6.5 5 - 9 [facility] Protein, UA Negative Negative - 1999(20) ++++ mg/dL [facility] Spec Grav, UA 1.02 1 - 1.03 [facility] Urobilinogen, UA 1.0 0.2 - 12 mg/dL [facility] [place] [address] Ultrasound Report Signed Patient: HAWK KING MR#: [id number] : 2000 Acct:[id number] Age/Sex: 23 / F ADM Date: 08/09/24 Loc: [place] [address]- Attending Dr: Eusebio Lam D.O. Ordering Physician: Eusebio Lam D.O. Date of Service: 08/09/24 Procedure(s): US OB cervical length Accession Number(s): [id number] cc: Eusebio Lam D.O.; Physician,Non-Staff MLeopoldo The [address] [address] Patient Name: HAWK KING MRN: [id number]:[id number] date: 2000 Sex: F Assigned Patient Location: [facility] Current Patient Location: [facility] Accession/Order Number: [id number] Exam Date: 08/09/2024 13:32 Report Date: 08/09/2024 [...] Jr., D.O. 08/09/2024 1:33 PM Dictation Location: [place] [address] Electronically authenticated by: [id number] Y Date: 08/09/2024 13:33 Dictated By: Wojciech Farah M.D. Signed By: 08/09/24 1336 DD/ 133 TD/TT: Restrike Hammer Operator: [facility] Radiology, Radiologist, MD - 08/09/2024 [place] [address] Ultrasound Report Signed Patient: HAWK KING MR#: [id number] : 2000 Acct:[id number] Age/Sex: 23 / F ADM Date: 08/09/24 Loc: [place] [address]: Eusebio Lam D.O. Ordering Physician: Eusebio Lam D.O. Date of Service: 08/09/24 Procedure(s): US OB cervical length Accession Number(s): [id number] cc: Eusebio Lam D.O.; Physician,Non-Staff Sindy The [address] [address] Patient Name: HAWK KING MRN: [facility]:[id number] date: 2000 Sex: F Assigned Patient Location: [facility] Current Patient Location: [facility] Accession/Order Number: [id number] Exam Date: 08/09/2024 13:32 Report Date: 08/09/2024 [...] Jr., D.O. 08/09/2024 1:33 PM Dictation Location: [employer] Electronically authenticated by: [id number] Y Date: 08/09/2024 13:33 Dictated By: Wojciech Farah M.D. Signed By: 08/09/24 133 DD/ 32 TD/TT: Restrike Hammer Operator: [facility] Radiology Study observation (narrative) [facility] US OB CERVICAL LENGTHOrdered By: Radiologist Radiology on 08-09-2024 [facility] Work Phone: US OB BPP W NON-STRESS on 08-09-2024 [place] [address] Ultrasound Report Signed Patient: HAWK KING MR#: [id number] : 2000 Acct:[id number] Age/Sex: 23 / F ADM Date: 08/09/24 Loc: US Attending Dr: Eusebio Lam D.O. Ordering Physician: Eusebio Lam D.O. Date of Service: 08/09/24 Procedure(s): US OB BPP w non-stress Accession Number(s): [id number] cc: Eusebio Lam D.O.; Physician,Non-Staff Sindy The [place] [address] Patient Name: HAWK KING MRN: [id number]:[id number] date: 2000 Sex: F Assigned Patient Location: [facility] Current Patient Location: Accession/Order Number: [id number] Exam Date: 08/09/2024 13:42 Report Date: 08/09/2024 13:42 At the request of: EUSEBIO LAM DO Procedure: US OB BPP w non-stress Biophysical profile. Reason for exam: Large for dates. COMPARISON: BPP 08/02/2024. TECHNIQUE: Transabdominal imaging of the gravid uterus was obtained. FINDINGS: Beekeeper reports a BPP of 8 out of 8. DALTON is normal at 17.9 cm. heart rate 167 bpm. US/US OB BPP w non-stress Impression: BPP 8 out of 8. Impression dictated by: Wojciech Farah Jr., D.O. 08/09/2024 1:42 PM Dictation Location: [place] [address] Electronically authenticated by: [id number] Y Date: 08/09/2024 13:42 Dictated By: Wojciech Farah M.D. Signed By: 08/09/24 1345 DD/ 1342 TD/TT: Restrike Hammer Operator: [facility] Radiology, Radiologist, MD - 08/09/2024 [place] [address] Ultrasound Report Signed Patient: HAWK KING MR#: [id number] : 2000 Acct:[id number] Age/Sex: 23 / F ADM Date: 08/09/24 Loc: US Attending Dr: Eusebio Lam D.O. Ordering Physician: Eusebio Lam D.O. Date of Service: 08/09/24 Procedure(s): US OB BPP w non-stress Accession Number(s): [id number] cc: Eusebio Lam D.O.; Physician,Non-Staff Sindy The [address] [address] Patient Name: HAWK KING MRN: [facility]:[id number] date: 2000 Sex: F Assigned Patient Location: [facility] Current Patient Location: Accession/Order Number: [id number] Exam Date: 08/09/2024 13:42 Report Date: 08/09/2024 13:42 At the request of: EUSEBIO LAM DO Procedure: US OB BPP w non-stress Biophysical profile. Reason for exam: Large for dates. COMPARISON: BPP 08/02/2024. TECHNIQUE: Transabdominal imaging of the gravid uterus was obtained. FINDINGS: Beekeeper reports a BPP of 8 out of 8. DALTON is normal at 17.9 cm. heart rate 167 bpm. US/US OB BPP w non-stress Impression: BPP 8 out of 8. Impression dictated by: Wojciech Farah Jr., D.O. 08/09/2024 1:42 PM Dictation Location: [facility] Electronically authenticated by: [id number] Y Date: 08/09/2024 13:42 Dictated By: Wojciech Farah M.D. Signed By: 08/09/24 1345 DD/ 1342 TD/TT: Restrike Hammer Operator: [facility] Radiology Study observation (narrative) [facility] US OB BPP W NON-STRESS Ordered By: Radiologist Radiology on 08-09-2024 [facility] Work Phone: Urinalysis macro (dipstick) panel (U)on 08-09-2024 Bilirubin, UA Negative Negative - 4(70) +++ mg/dL [facility] Blood, UA Negative Negative - 50 Jian/mcL [facility] Clarity, UA Clear [facility] Color, UA Yellow [facility] Glucose, UA Negative Negative - 1999(110) ++++ mg/dL [facility] Interpretation and review of laboratory results Normal [facility] Ketones, UA Negative Negative - 160(16) ++++ mg/dL [facility] Leukocytes, UA Negative Negative - 500+++ Heriberto/mcL [facility] Nitrite, UA Negative Negative - Positive [facility] pH, UA 7 5 - 9 [facility] Protein, UA Negative Negative - 2000(20) ++++ mg/dL [facility] Spec Grav, UA 1.015 1 - 1.03 [facility] Urobilinogen, UA 0.2 0.2 - 12 mg/dL [facility] No Panel InformationOrdered By: Radiologist Radiology on 08-03-2024 [facility] Work Phone: No Panel Informationon 08-03 Radiology Study observation (narrative) [facility] US OB BPP W NON-STRESS on 08-03-2024 [place] [address] Ultrasound Report Signed Patient: HAWK KING MR#: [id number] : 2000 Acct:[id number] Age/Sex: 23 / F ADM Date: 08/02/24 Loc: US Attending Dr: Eusebio Lam D.O. Ordering Physician: Eusebio Lam D.O. Date of Service: 08/02/24 Procedure(s): US OB BPP w non-stress Accession Number(s): [id number] cc: Eusebio Lam D.O.; Physician,Non-Staff M.Sigrid The [place] [id number] Patient Name: HAWK KING MRN: [id number]:[id number] date: 2000 Sex: F Assigned Patient Location: [facility] Current Patient Location: Accession/Order Number: [id number] Exam Date: 08/03/2024 08:23 Report Date: 08/03/2024 08:32 At the request of: EUSEBIO LAM DO Procedure: US OB BPP w non-stress CLINICAL INFORMATION: H/O LABOR O09.899 ULTRASOUND OB GROWTH COMPARISON: None There is a single live intrauterine gestation in cephalic presentation. There is cardiac and somatic activity. The heart rate [id number] beats per minute. The placenta is posterior. [...] Hunt M.D. 08/03/2024 8:32 AM Dictation Location: [place] [address] Electronically authenticated by: [id number] Y Date: 08/03/2024 08:32 Dictated By: Jing Hunt M.D. Signed By: 08/03/24 0835 DD/ 0832 TD/TT: Restrike Hammer Operator: [facility] Radiology, Radiologist, - 08/03/2024 [place] [address] Ultrasound Report Signed Patient: HAWK KING MR#: [id number] : 2000 Acct:[id number] Age/Sex: 23 / F ADM Date: 08/02/24 Loc: US Attending Dr: Eusebio Lam D.O. Ordering Physician: Eusebio Lam D.O. Date of Service: 08/02/24 Procedure(s): US OB BPP w non-stress Accession Number(s): [id number] cc: Eusebio Lam D.O.; Physician,Non-Staff Sindy The [place] [id number] Patient Name: HAWK KING MRN: [facility]:[id number] date: 2000 Sex: F Assigned Patient Location: [facility] Current Patient Location: Accession/Order Number: [id number] Exam Date: 08/03/2024 08:23 Report Date: 08/03/2024 08:32 At the request of: EUSEBIO LAM DO Procedure: US OB BPP w non-stress CLINICAL INFORMATION: H/O LABOR O09.899 ULTRASOUND OB GROWTH COMPARISON: None There is a single live intrauterine gestation in cephalic presentation. There is cardiac and somatic activity. The heart rate [id number] beats per minute. The placenta is posterior. [...] Hunt M.D. 08/03/2024 8:32 AM Dictation Location: [place] [address] Electronically authenticated by: [id number] Y Date: 08/03/2024 08:32 Dictated By: Jing Hunt M.D. Signed By: 08/03/24 0835 DD/ TD/TT: Restrike Hammer Operator: GARCIA Josue OB GROWTHon 08-03-2024 [place] [address] Ultrasound Report Signed Patient: HAWK KING MR#: [id number] : 2000 Acct:[id number] Age/Sex: 23 / F ADM Date: 08/02/24 Loc: US Attending Dr: Eusebio Lam D.O. Ordering Physician: Eusebio Lam D.O. Date of Service: 08/02/24 Procedure(s): US OB growth Accession Number(s): [id number] cc: Eusebio Lam D.O.; Physician,Non-Staff Sindy The [place] [id number] Patient Name: HAWK KING MRN: [id number]:[id number] date: 2000 Sex: F Assigned Patient Location: [facility] Current Patient Location: Accession/Order Number: [id number] Exam Date: 08/03/2024 08:23 Report Date: 08/03/2024 08:32 At the request of: EUSEBIO LAM DO Procedure: US OB BPP w non-stress CLINICAL INFORMATION: H/O LABOR O09.899 ULTRASOUND OB GROWTH COMPARISON: None There is a single live intrauterine gestation in cephalic presentation. There is cardiac and somatic activity. The heart rate [id number] beats per minute. The placenta is posterior. [...] Hunt M.D. 08/03/2024 8:32 AM Dictation Location: [place] [address] Electronically authenticated by: [id number] Y Date: 08/03/2024 08:32 Dictated By: Jing Hunt M.D. Signed By: 08/03/24 0835 DD/ 0832 TD/TT: Restrike Hammer Operator: [facility] Radiology, Radiologist, - 08/03/2024 [place] [address] Ultrasound Report Signed Patient: HAWK KING MR#: [id number] : 2000 Acct:[id number] Age/Sex: 23 / F ADM Date: 08/02/24 Loc: US Attending Dr: Eusebio Lam D.O. Ordering Physician: Eusebio Lam D.O. Date of Service: 08/02/24 Procedure(s): US OB growth Accession Number(s): [id number] cc: Eusebio Lam D.O.; Physician,Non-Staff Sindy The [place] [address] Patient Name: HAWK KING MRN: [facility]:[id number] date: 2000 Sex: F Assigned Patient Location: [facility] Current Patient Location: Accession/Order Number: [id number] Exam Date: 08/03/2024 08:23 Report Date: 08/03/2024 08:32 At the request of: EUSEBIO LAM DO Procedure: US OB BPP w non-stress CLINICAL INFORMATION: H/O LABOR O09.899 ULTRASOUND OB GROWTH COMPARISON: None There is a single live intrauterine gestation in cephalic presentation. There is cardiac and somatic activity. The heart rate [id number] beats per minute. The placenta is posterior. [...] Hunt M.D. 08/03/2024 8:32 AM Dictation Location: [place] [address] Electronically authenticated by: [id number] Y Date: 08/03/2024 08:32 Dictated By: Jing Hunt M.D. Signed By: 08/03/24 0835 DD/ 0832 TD/TT: Restrike Hammer Operator: [facility] MLR HEMOGLOBIN A1Con 025 Glucose [Mass/Vol] 91 mg/dL [facility] HbA1c (Bld) [Mass fraction] 4.8 % 4.5 - 6.2 % [facility] Comment on above: ADA RECOMMENDED LIMI T 4.0 - 6.0 ADA THERAPEUTIC TARGET < 7.0 ACTION SUGGESTED > 7.0 [facility] Urinalysis macro (dipstick) panel (U)on 07-26-2024 Bilirubin, UA Negative Negative - 4(70) +++ mg/dL [facility] Blood, UA Negative Negative - 50 Jian/mcL [facility] Clarity, UA Clear [facility] Color, UA Yellow [facility] Glucose, UA Negative Negative - 2000(110) ++++ mg/dL [facility] Interpretation and review of laboratory results Abnormal [facility] Ketones, UA Negative Negative - 160(16) ++++ mg/dL [facility] Leukocytes, UA Positive Negative - 500+++ Heriberto/mcL [facility] Comment on above: small Nitrite, UA Negative Negative - Positive [facility] pH, UA 1 5 - 9 [facility] Protein, UA Positive Negative - 2000(20) ++++ mg/dL [facility] Comment on above: 30mg/dL Spec Grav, UA 1.02 1 - 1.03 [facility] Urobilinogen, UA 2.0 0.2 - 12 mg/dL [facility] US OB FOLLOW UP TRANSABDOMIN AL APPROACHon [...] II, MD, PHD at 30-Jun-2024 12:16:48 PM [facility] Normal Not Available Comment on above: Order Comment: US OB SCAN FOR GROWTH Estimated Date of Delivery: 09/21/24 Gestational Age as of 06/13/2024: 25w5d Urinalysis macro (dipstick) panel (U)on 06-28-2024 Bilirubin, UA Negative Negative - 4(70) +++ mg/dL [facility] Blood, UA Negative Negative - 50 Jian/mcL [facility] Clarity, UA Clear [facility] Color, UA Yellow [facility] Glucose, UA Negative Negative - 1999(110) ++++ mg/dL [facility] Interpretation and review of laboratory results Normal [facility] Ketones, UA Negative Negative - 160(16) ++++ mg/dL [facility] Leukocytes, UA Negative Negative - 500+++ Heriberto/mcL [facility] Nitrite, UA Negative Negative - Positive [facility] pH, UA 7 5 - 9 [facility] Protein, UA Negative Negative - 1999(20) ++++ mg/dL [facility] Spec Grav, UA 1.02 1 - 1.03 [facility] Urobilinogen, UA 0.2 0.2 - 12 mg/dL [facility] IGP,APTIMA HPV,AGE GDLNon AGE GDLN ACOG TESTING Note . [facility] Comment on above: TESTS RESULT FLAG UN ITS REF RANGE LAB Clinician Provided Cytology Information Source.............Cervix Other.............. No. of containers..01 ThinPrep Vial Age Kim TNIAJERO Memo... FLAG LEGEND: L-Low Normal,H-High Normal,LL-Alert Low,HH-Alert High <-Panic Low,>-Panic High,A-Abnormal,AA-Critical Abnormal Performed at: 01 =[address] [address] Katiegilbert Lopez MD, IGP, RFX APTIMA HPV ASCU Note . [facility] Comment on above: TESTS RESULT FLAG U NITS REF RANGE LAB DIAGNOSIS: 02 NEGATIVE FOR INTRAEPITHELIAL LESION OR MALIGNANCY. Specimen adequacy: 02 Satisfactory for evaluation. Endocervical and/or squamous metaplastic cells (endocervical component) are present. Performed by: 02 Radha Cruz Fiber Optic Technician (ASC) . 02 Note: Note 03 The [...] High,A-Abnormal,AA-Critical Abnormal Performed at: 02 [facility] [facility] [address] [place] [address] Fer Mehta MD, 03 WB [facility] [address] [address] Katie Lopez MD, Performed at: =G - [facility] [address] [id number] Side Stapler: Katie Lopez MD, Phone: [phone] Performed at: [facility] - [facility] [place] [facility] [address] [place], [place] [id number] Side Stapler: Fer Mehta MD, Phone: [phone] SPATULA-ALONE CERVIX [facility] RECURRENT VAGINITIS (HTRX)on 05-17-2024 ATOPOBIUM VAGINAE 19.357 Abnormal [facility] ATOPOBIUM VAGINAE Detected Abnormal [facility] BVAB 2,3 (BACTERIAL VAGINOSIS ASSOCIATED BACTERIA [...] 0 [facility] ALYSSA KRUSEI Not detected [facility] CHLAMYDIA TRACHOMATIS 0 [facility] CHLAMYDIA TRACHOMATIS Not detected N [facility] ERMB, C; MEFA 19.876 Abnormal [facility] ERMB, C; MEFA Detected Abnormal [facility] GARDNERELLA VAGINALIS 24.591 Abnormal [facility] GARDNERELLA VAGINALIS Detected Abnormal [facility] Interpretation and review of laboratory results Abnormal [facility] MEGASPHAERA (TYPES 1, 2) 0 [facility] MEGASPHAERA (TYPES 1, 2) Not detected [facility] MYCOPLASMA GENITALIUM 22.396 Abnormal [facility] MYCOPLASMA GENITALIUM Detected Abnormal [facility] NEISSERIA GONORRHOEAE 0 [facility] NEISSERIA GONORRHOEAE Not detected N [facility] TET B, TET M 20.657 Abnormal [facility] TET B, TET M Detected Abnormal [facility] TRICHOMONAS VAGINALIS 0 [facility] TRICHOMONAS VAGINALIS Not detected N [facility] Urinalysis macro (dipstick) panel (U)on 05-16-2024 Bilirubin, UA Negative Negative - 4(70) +++ mg/dL [facility] Blood, UA Negative Negative - 50 Jian/mcL [facility] Clarity, UA Clear [facility] Color, UA Yellow [facility] Glucose, UA Negative Negative - 2000(110) ++++ mg/dL [facility] Interpretation and review of laboratory results Abnormal [facility] Ketones, UA Negative Negative - 160(16) ++++ mg/dL [facility] Leukocytes, UA Trace Negative - 500+++ Heriberto/mcL [facility] Nitrite, UA Negative Negative - Positive [facility] pH, UA 7 5 - 9 [facility] Protein, UA Negative Negative - 2000(20) ++++ mg/dL [facility] Spec Grav, UA 1.02 1 - 1.03 [facility] Urobilinogen, UA 0.2 0.2 - 12 mg/dL [facility] US OB 14+ WEEKS ANATOMY SCAN on [...] II, MD, PHD at 09-May-2024 09:57:06 AM [facility] Normal Not Available Comment on above: [...] [facility] Glucose, UA Negative Negative - 2000(110) ++++ mg/dL [facility] Interpretation and review of laboratory results Abnormal [facility] Ketones, UA Negative Negative - 160(16) ++++ mg/dL [facility] Leukocytes, UA Positive Negative - 500+++ Heriberto/mcL [facility] Comment on above: small Nitrite, UA Negative Negative - Positive [facility] pH, UA 7.5 5 - 9 [facility] Protein, UA Trace Negative - 1999(20) ++++ mg/dL [facility] Spec Grav, UA 1.02 1 - 1.03 [facility] Urobilinogen, UA 1.0 0.2 - 12 mg/dL [facility] BOX TESTon 02-29-2024 BOX TEST SENT OUT [facility] BOX1 [facility] BOX2 02/29/2024 [facility]-18-2024 BOX TEST SENT OUT [facility] BOX1 [facility] BOX2 02/18/24 [facility] US PREG LESS THAN 14 WKS SIN GLEon 02-11-2024 US PREG LESS THAN 14 WKS SINGLE US PREG LESS THAN 14 WKS SINGLE Pelvic ultrasound History:Dates viability Comparison:None Findings: Single live IUP at [address] [place]-rump length 2.1 cm. Yolk sac visualized. Heart [...] Thomas MD on 02/11/2024 11:49 AM Normal [facility] US PREG LESS THAN 14 WKS [...] with cardiac activity [address] [place]-rump length of 2.6 mm corresponds to 5 [...] activity. * Ultrasound HONEY 09/21/2024. Finalized by ySd Roque MD on 01/26/2024 12:54 PM Normal [facility] ACUTE HEPATITIS PANELon 01-08 ANTI HCV W/PCR REFLX Non-Reactive Normal NRCT Pr [facility] Comment on above: Result Comment: NEW TEST METHOD NOTE If recent infection suspected, recommend repeat testing (>2 months). Dszafv-dv-ftspmg ratio is <1.00. Performed By: #### C DARIANA CASTRO, 2532-0, 3084-1, 81467-3, 36111-0, AHP, 64964-2, 61632-1, 61024-9 #### [facility] ([id number]) [address] [facility], [address] [address] [place] [address] HEPATITIS A IGM Non-Reactive Normal NRCT [facility] Comment on above: Result Comment: NEW TEST METHOD Performed By: #### C BC, CMP, 2532-0, 3084-1, 73586-9, 47238-5, AHP, 46331-9, 53625-4, 39998-5 #### [facility] ([id number]) [address] [facility], [address] [place] [address] HEPATITIS B CORE IGM Non-Reactive Normal NRCT Pr [facility] Comment on above: Result Comment: NEW TEST METHOD Performed By: #### C BC, CMP, 2532-0, 3084-1, 87204-1, 09263-7, AHP, 61435-6, 30438-3, 31921-7 #### [facility] ([id number]) [address], [address] [place] [address] HEPATITIS B SURF AG Non-Reactive Normal NRCT [facility] Comment on above: Result Comment: NEW TEST METHOD Performed By: #### C BC, CMP, 2532-0, 3084-1, 34509-2, 87300-9, AHP, 15358-9, 61219-4, 42848-9 #### [facility] ([id number]) [address], [address] [place] [address] COMPLETE BLOOD COUNTon 01-18 Erythrocyte distribution width (RBC) [Ratio] 13.2 % Normal 11.5-15.0 [facility] Comment on above: Performed By: #### C BC, CMP, 2532-0, 3084-1, 90416-3, 68531-5, AHP, 35751-5, 34042-4, 35774-4 #### [facility] ([id number]) [address] [address] [place] [address] Hematocrit (Bld) [Volume fraction] 41.8 % Normal 35-47 [facility] Comment on above: Performed By: #### C BC, CMP, 2532-0, 3084-1, 33816-4, 37267-6, AHP, 16232-6, 80487-9, 04864-1 #### [facility] ([id number]) [address] [address] [place] [address] Hemoglobin (Bld) [Mass/Vol] 14.3 g/dL Normal 11.7-15.5 [facility] Comment on above: Performed By: #### C BC, CMP, 2532-0, 3084-1, 17997-9, 13665-0, AHP, 36393-1, 13307-1, 36392-8 #### [facility] ([id number]) [address] [address] [place] [address] MCH (RBC) [Entitic mass] 31.7 pg Normal 27-34 [facility] Comment on above: Performed By: #### C BC, CMP, 2532-0, 3084-1, 37951-2, 84258-1, AHP, 09275-6, 50638-3, 94149-5 #### [facility] ([id number]) [address], [address] [place] [address] MCHC (RBC) [Mass/Vol] 34.3 g/dL Normal 32-36 [facility] Comment on above: Performed By: #### C BC, CMP, 2532-0, 3084-1, 51873-3, 29558-4, AHP, 31153-2, 88640-4, 39128-6 #### [facility] ([id number]) [address], [address] [place] [address] MCV (RBC) [Entitic vol] 92 fL Normal 80-100 [facility] Comment on above: Performed By: #### C BC, CMP, 2532-0, 3084-1, 39209-0, 18656-1, AHP, 72437-2, 02738-3, 74251-5 #### [facility] ([id number]) [address], [address] [place] [address] Platelet mean volume (Bld) [Entitic vol] 8.8 fL Normal 7-12 [facility] Comment on above: Performed By: #### C BC, CMP, 2532-0, 3084-1, 47187-6, 58140-4, AHP, 20103-7, 51637-3, 56220-0 #### [facility] ([id number]) [address], [address] [place] [address] Platelets (Bld) [#/Vol] 238 10*3/uL Normal 150-450 [facility] Comment on above: Performed By: #### C BC, CMP, 2532-0, 3084-1, 39438-3, 55924-4, AHP, 81074-4, 70789-1, 68270-8 #### [facility] ([id number]) [address], [address] [place] [address] RBC COUNT 4.52 X10E12/L Normal 3.80-5.20 [facility] Comment on above: Performed By: #### C BC, CMP, 2532-0, 3084-1, 35499-9, 17554-1, AHP, 70561-4, 59734-5, 16002-3 #### [facility] ([id number]) [address], [address] [place] [address] WBC (Bld) [#/Vol] 5.0 10*3/uL Normal 4.0-11.0 [facility] Comment on above: Performed By: #### C BC, CMP, 2532-0, 3084-1, 24321-2, 89938-5, AHP, 67649-7, 74615-1, 81760-8 #### [facility] ([id number]) [address], [address] [place] [address] COMPREHENSIVE METABOLIC PANE Eric 01-19-2024 Albumin [Mass/Vol] 4.4 g/dL Normal 3.2-5.3 [facility] Comment on above: Performed By: #### C BC, CMP, 2532-0, 3084-1, 30850-9, 11056-8, AHP, 72195-5, 47849-6, 19604-2 #### [facility] ([id number]) [address], [address] [place] [address] ALP [Catalytic activity/Vol] 42 U/L Normal 39-130 [facility] Comment on above: Performed By: #### C BC, CMP, 2532-0, 3084-1, 77709-6, 61461-9, AHP, 83009-8, 39355-8, 01519-8 #### [facility] ([id number]) [address], [address] [place] [address] ALT [Catalytic activity/Vol] 17 U/L Normal 0-31 [facility] Comment on above: Performed By: #### C BC, CMP, 2532-0, 3084-1, 84171-5, 86837-7, AHP, 25310-5, 13248-5, 29504-2 #### [facility] ([id number]) [address], [address] [place] [address] Anion gap [Moles/Vol] 9 mmol/L Normal 5-15 [facility] Comment on above: Performed By: #### C BC, CMP, 2532-0, 3084-1, 18822-0, 25028-9, AHP, 34156-7, 82660-3, 16710-8 #### [facility] ([id number]) [address], [address] [place] [address] AST [Catalytic activity/Vol] 17 U/L Normal 0-41 [facility] Comment on above: Performed By: #### C BC, CMP, 2532-0, 3084-1, 25684-5, 82232-6, AHP, 51891-3, 56940-9, 46378-3 #### [facility] ([id number]) [address], [address] [place] [address] Bilirubin [Mass/Vol] 0.6 mg/dL Normal 0.3-1.2 [facility] Comment on above: Performed By: #### C BC, CMP, 2532-0, 3084-1, 96366-6, 96164-9, AHP, 50731-3, 64654-5, 37551-1 #### [facility] ([id number]) [address], [address] [place] [address] Calcium [Mass/Vol] 8.9 mg/dL Normal 8.5-10.5 [facility] Comment on above: Performed By: #### C BC, CMP, 2532-0, 3084-1, 98198-4, 39506-2, AHP, 54919-7, 63373-7, 22447-6 #### [facility] ([id number]) [address], [address] [place] [address] Chloride [Moles/Vol] 104 mmol/L Normal 98-109 [facility] Comment on above: Performed By: #### C BC, CMP, 2532-0, 3084-1, 74260-2, 61761-2, AHP, 85142-6, 41653-3, 61492-1 #### [facility] ([id number]) [address], [address] [place] [address] CO2 [Moles/Vol] 28 mmol/L Normal 22-32 [facility] Comment on above: Performed By: #### C BC, CMP, 2532-0, 3084-1, 37437-5, 80825-8, AHP, 14234-0, 17595-6, 38906-6 #### [facility] ([id number]) [address], [address] [place] [address] Creatinine [Mass/Vol] 0.68 mg/dL Normal 0.40-1.00 [facility] Comment on above: Result Comment: METH OD TRACEABLE TO IDMS STANDARD Performed By: #### C BC, CMP, 2532-0, 3084-1, 39577-0, 56844-4, AHP, 12461-7, 67654-5, 74474-0 #### [facility] ([id number]) [address], [address] [place] [address] eGFR (CKD-EPI) NON-RACE DEPENDENT >90 Normal >59 [facility] Comment on above: Result Comment: Reported eGFR is based on the CKD-EPI 2020 equation that does not use a race coefficient. Performed By: #### C BC, CMP, 2532-0, 3084-1, 82009-7, 09732-0, AHP, 79758-7, 75062-4, 74000-3 #### [facility] ([id number]) [address], [address] [place] [address] Glucose [Mass/Vol] 84 mg/dL Normal 65-99 [facility] Comment on above: Performed By: #### C BC, CMP, 2532-0, 3084-1, 08756-2, 74601-5, AHP, 57984-8, 40040-3, 26883-6 #### [facility] ([id number]) [address], [address] [place] [address] Potassium [Moles/Vol] 3.4 mmol/L Low 3.5-5.0 [facility] Comment on above: Performed By: #### C BC, CMP, 2532-0, 3084-1, 80751-1, 15334-8, AHP, 25064-5, 43547-1, 93711-6 #### [facility] ([id number]) [address], [address] [place] [address] Protein [Mass/Vol] 7.0 g/dL Normal 6.0-8.0 [facility] Comment on above: Performed By: #### C BC, CMP, 2532-0, 3084-1, 12179-5, 73763-8, AHP, 58566-5, 40119-4, 17991-4 #### [facility] ([id number]) [address], [address] [place] [address] Sodium [Moles/Vol] 141 mmol/L Normal 134-146 [facility] Comment on above: Performed By: #### C BC, CMP, 2532-0, 3084-1, 65078-1, 44053-1, AHP, 11585-6, 78962-0, 71847-4 #### [facility] ([id number]) [address], [address] [place] [address] Urea nitrogen [Mass/Vol] 9 mg/dL Normal 5-23 [facility] Comment on above: Performed By: #### C BC, CMP, 2532-0, 3084-1, 07142-7, 83138-5, AHP, 89680-8, 44930-1, 99886-4 #### [facility] ([id number]) [address] [facility], [address] [place] [address] Creatinine (U) [Mass/Vol]on 01-19-2024 URINE CREATININE,RDM 153.52 mg/dL Normal Pr [facility] Comment on above: Performed By: #### 6 556-5 #### [facility] ([id number]) [address] [place] [address] DRUG SCREEN, URINEon 024 AMPHETAMINE/METHAMP Negative Normal NEG [facility] Comment on above: Result Comment: AMPH /METH screening cut off = 1000 ng/mL Performed By: #### 6 556-5 #### [facility] ([id number]) [address] [place] [address] BARBITURATES Negative Normal NEG [facility] Comment on above: Result Comment: Basilia iturates screening cut off value = 200 ng/mL Performed By: #### 6 556-5 #### [facility] ([id number]) [address] [place] [address] BENZODIAZEPINES Negative Normal NEG [facility] Comment on above: Result Comment: Miguelangel odiazepines screening cut off value = 200 ng/mL Performed By: #### 6 556-5 #### [facility] ([id number]) [address] [place] [address] CANNABINOIDS Positive Abnormal NEG [facility] Comment on above: Result Comment: Conf irmation available upon request. Cannabinoids/THC screening cut off value = 50 ng/mL Performed By: #### 6 556-5 #### [facility] ([id number]) [address] [place] [address] COCAINE METABOLITE Negative Normal NEG [facility] Comment on above: Result Comment: Coca ine screening cut off value = 300 ng/mL Performed By: #### 6 556-5 #### [facility] ([id number]) [address] [place] [address] ECSTASY Negative Normal NEG [facility] Comment on above: Result Comment: Ecst asy screening cut off value = 500 ng/mL This report is intended for use in clinical monitoring or management of patients. Performed By: #### 6 556-5 #### [facility] ([id number]) [address] [place] [address] METHADONE Negative Normal NEG [facility] Comment on above: Result Comment: Meth adone screening cut off value = 300 ng/mL. Performed By: #### 6 556-5 #### [facility] ([id number]) [address] [place] [address] OPIATES Negative Normal NEG [facility] Comment on above: Result Comment: Opia memo screening cut off value = 300 ng/mL NOTE: This test is used for the detection of codeine, hydrocodone (>1000 ng/mL), morphine and hydromorphone (>900 ng/mL) in urine. Performed By: #### 6 556-5 #### [facility] ([id number]) [address] [place] [address] OXYCODONE Negative Normal NEG [facility] Comment on above: Result Comment: Oxyc odone screening cut off value = 300 ng/mL NOTE: This test is used for the detection of oxycodone and oxymorphone in urine. Performed By: #### 6 556-5 #### [facility] ([id number]) [address] [place] [address] PHENCYCLIDINE Negative Normal NEG [facility] Comment on above: Result Comment: Phen cyclidine screening cut off value = 25 ng/mL Performed By: #### 6 556-5 #### [facility] ([id number]) [address] [facility], [place] [address] HCG.beta subunit IA 3rd IS Q non 01-19-2024 HCG.beta subunit Qn 6499 m[IU]/mL Normal Pr [facility] Comment on above: Result Comment: NEW REFERENCE [...] or nontrophoblastic neoplasms. Performed By: #### C DARIANA CASTRO, 2532-0, 3084-1, 83175-7, 90231-0, [facility], 32940-1, 93359-2, 21309-4 #### [facility] ([id number]) [address] [place] [address], [address] [place] [address] HIV 1+2 Ab+HIV1 p24 Ag IA Ql on 01-19-2024 HIV 1 and 2 Ab/Ag Screen Non-Reactive Normal NRCT [facility] Comment on above: Result [...] By: #### C BC, CMP, 2532-0, 3084-1, 92806-8, 28081-9, AHP, 45498-1, 48365-6, 48070-8 #### [facility] ([id number]) [address] [facility], [address] [place] [address] LDH [Catalytic activity/Vol] on 01-19-2024 LDH 163 U/L Normal 100-235 [facility] Comment on above: Performed By: #### C BC, CMP, 2532-0, 3084-1, 44503-4, 75623-5, AHP, 60120-4, 21533-6, 79536-3 #### [facility] ([id number]) [address] [facility], [address] [place] [address] PROTEIN CREAT RATIOon 2023 RANDOM URINE PROTEIN 100 mg/L Normal <120 [facility] Comment on above: Performed By: #### 6 556-5 #### [facility] ([id number]) [address] [place] [address] U/PRO/TOP SPOTTER RATIO CALC 0.06 Normal <0.2 [facility] Comment on above: Result Comment: Neph rotic Syndrome is associated with ratios >3.5 Performed By: #### 6 556-5 #### [facility] ([id number]) [address] [place] [address] URINE CREATININE,RDM 155.31 mg/dL Normal Pr [facility] Comment on above: Performed By: #### 6 556-5 #### [facility] ([id number]) [address] [place] [address] Rubella virus Ab Ql (S)on RUBELLA IMMUNE IgG 2.5 AI Normal [facility] Comment on above: Result Comment: Interpretation-------- <0.8 NEGATIVE-considered Not Immune 0.8-0.9 EQUIVOCAL-consider retesting with new specimen >0.9 POSITIVE-considered Immune Performed By: #### 6 556-5 #### [facility] ([id number]) [address] [place] [address] T. pallidum IgG+IgM IA Ql (S )on 01-19-2024 Syphilis Total 0.8 AI Normal 0.0-0.8 [facility] Comment on above: Result Comment: NON REACTIVE No serologic evidence of infection to Treponema pallidum (syphilis). Repeat testing may be considered in patients with suspected acute or primary syphilis in 2 to 4 weeks. Performed By: #### 6 556-5 #### [facility] ([id number]) [address] [place] [address] URIC ACIDon 01-19-2024 Urate [Mass/Vol] 2.1 mg/dL Low 2.6-7.2 [facility] Comment on above: Performed By: #### C BC, CMP, 2532-0, 3084-1, 73922-1, 84921-2, AHP, 99812-0, 99061-7, 64632-6 #### [facility] ([id number]) [address], [address] [place] [address] URINALYSISon 01-19-2024 Bilirubin Ql (U) Negative Normal NEG [facility] Comment on above: Performed By: #### U A #### [facility] ([id number]) [address], [address] [place] [address] BLOOD/HGB Negative Normal NEG [facility] Comment on above: Performed By: #### U A #### [facility] ([id number]) [address], [address] [place] [address] Color (U) YELLOW Normal YELLOW [facility] Comment on above: Performed By: #### U A #### [facility] ([id number]) [address], [address] [place] [address] Glucose Ql (U) Negative Normal NEG [facility] Comment on above: Performed By: #### U A #### [facility] ([id number]) [address], [address] [place] [address] Ketones Ql (U) Negative Normal NEG [facility] Comment on above: Performed By: #### U A #### [facility] ([id number]) [address] [place] [address] Leukocyte esterase Test strip Ql (U) Negative Normal NEG [facility] Comment on above: Performed By: #### U A #### [facility] ([id number]) [address] [place] [address] MUCOUS PRESENT Abnormal NONE [facility] Comment on above: Performed By: #### U A #### [facility] ([id number]) [address], [address] [place] [address] Nitrite Ql (U) Negative Normal NEG [facility] Comment on above: Performed By: #### U A #### [facility] ([id number]) [address] [place] [address] pH (U) 6.5 [pH] Normal 5.0-8.5 [facility] Comment on above: Performed By: #### U A #### [facility] ([id number]) [address] [place] [address] Protein Ql (U) Trace Abnormal NEG [facility] Comment on above: Performed By: #### U A #### [facility] ([id number]) [address], [address] [place] [address] R.B.CELLS 1 /hpf Normal 0-5 [facility] Comment on above: Performed By: #### U A #### [facility] ([id number]) [address], [address] [place] [address] Specific gravity (U) [Rel density] 1.017 Normal 1.003-1.035 [facility] Comment on above: Performed By: #### U A #### [facility] ([id number]) [address] [facility], [address] [place] [address] SQUAMOUS EPITHELIUM 8 /hpf High 0-5 [facility] Comment on above: Performed By: #### U A #### [facility] ([id number]) [address] [place] [address], [address] [address] TURBIDITY HAZY Abnormal CLEAR [facility] Comment on above: Performed By: #### U A #### [facility] ([id number]) [facility] [facility], [address] [place] [address] Urobilinogen (U) [Mass/Vol] mg/dL Normal <1.1 [facility] Comment on above: Performed By: #### U A #### [facility] ([id number]) [address] [place] [address], [address] [place] [address] W.B.CELLS 2 /hpf Normal 0-5 [facility] Comment on above: Performed By: #### U A #### [facility] ([id number]) [facility] [address] [place] [address] URINE CULTUREon 01-19-2024 Bacteria identified Cx Nom (U) CULTURE RESULTS NO GROWTH AT <1000 CFU/mL Normal [facility] Comment on above: Performed By: #### 6 556-5 #### [facility] ([id number]) [address] [place] [address], [place] [address] VZV IgG IA Ql (S)on 01-19-20 24 VARICELLA IgG 0.2 AI Normal <0.9 [facility] Comment on above: Result Comment: Interpretation-------- <0.9 Negative 0.9 - 1.0 Equivocal >1.0 Positive Performed By: #### 6 556-5 #### [facility] ([id number]) [address] [place] [address], [place] [address] ABORhon 01-11-2024 ABO and Rh group Nom (Bld) Hx Check: Not Found Anti-A: 4+ Anti-B: 0 Anti-D: 4+ DCon: NT A1: 0 B: 4+ ABORh Interp: A POS Invalid Interpretation Code [facility] Comment on above: Performed By: #### 1 [id number], [id number], [id number] #### [facility] (DEFAULT) [address] [place] [address] ABORh Retypeon 01-11-2024 ABO and Rh group Nom (Bld) Ordered by Discern. Anti-A: 4+ Anti-B: 0 Anti-D: 4+ DCon: NT A1: 0 B: 4+ ABORh Retype: A POS Invalid Interpretation Code [facility] Comment on above: Performed By: #### 1 [id number], [id number], [id number] #### [facility] (DEFAULT) [address] [place] [address] ED Clinical Summaryon 2023 ED Clinical Summary [facility] - Emergency Department [address] [place], [place] [id number] ED Clinical Summary PERSON INFORMATION Name: HAWK KING Age: 23 Years Sex: FEMALE : 2000 MRN: Acct#: Visit Reason: Test; PREGANT, WANT TEST DONE, SPOTTING BLOOD Arrival: 01/11/2024 10:11:43 Discharge: 01/11/2024 11:59:00 LOS: 000 01:48 Check In: 01/11/2024 10:11:43 Checkout:01/11/2024 11:59:00 Address: [facility] [facility] [address] PCP: ANN-MARIE ASH MD PROVIDER INFORMATION Provider [...] Home PATIENT EDUCATION INFORMATION Instructions: Bacterial Vaginosis, [id number] Follow-Up: With: Address: When: [place]IR [place], ANN-MARIE Dc [address] [place] [address] [id number] Within 3 to 5 days DIAGNOSIS: 1:Vaginal bleeding during ; 2:Bacterial vaginosis in ; 3:; Other specified bacterial agents as the cause of diseases classified elsewhere Patient Understands: Yes - Patient/family/caregi john verbalizes understanding of instructions given Comment: [facility] ED Note-Nursingon 01-11-2024 ED Note-Nursing Ambulates with [...] LMP 2023. Dr. Laguerre in for exam. [facility] ED Patient Summaryon 024 ED Patient Summary [facility] - Emergency Department [address] [place] [address] [id number] PATIENT DISCHARGE INSTRUCTIONS Patient Information Name: HAWK KING Age: 23 Years Date of : 2000 [facility]: [id number] Reason For Visit: Test; PREGANT, WANT TEST DONE, SPOTTING BLOOD Arrival Time: 01/11/2024 10:11:43 Primary Care Physician: ANN-MARIE ASH MD Attending Physician: Abner Laguerre MD Comment: Visit Diagnosis: Diagnoses This Visit Bacterial vaginosis in (O23.599) Other specified bacterial agents as the cause of diseases classified elsewhere (B96.89) (Z34.90) Test ([id number]) Vaginal bleeding during (O46.90) The Pharmacy at [facility] is open Wednesday through Wednesday from 9A [...] alcohol and/or drug addiction problems; contact the [facility] 31/08 Crisis Hotline -Cira 6TZXS xu [phone]. If you received any narcotics, sedation, or [...] Address: When: MIHIR DEL [place]LE, ANN-MARIE Dc [address] [place] [address] Within 3 to 5 days Medication Information: The exam and treatment you received today in the [facility] Emergency Department were for an urgent problem and are not intended as complete care. It is important for you to follow up with a doctor, nurse practitioner, or physician?s oceanographer assistant for ongoing care. If your symptoms [...] so we can reach you if necessary. [facility] Emergency Department has provided you with a complete list of medications post discharge. Please inform your mediation commissioner/provider of your visit and for further instruction on these medications. Any specific questions regarding your chronic medications and dosages should be discussed with your primary care physician(s) and/or pharmacist. New Medications [facility], [address], [place] [id number], [phone] metroNIDAZOLE (metroNIDAZOLE 500 mg oral tablet) 1 [...] the antibiotic as prescribed. Follow-up with your LORRY WEIGHER to review this emergency department visit. Return [...] infection can cau (more content not included)... [facility] Test Urine 1on U Preg Positive [facility] Comment on above: Performed By: #### 1 [id number], [id number], [id number] #### [facility] (DEFAULT) [address] [place] [address] U Preg Internal Control Pass [facility] Comment on above: Performed By: #### 1 [id number], [id number], [id number] #### [facility] (DEFAULT) [address] [place] [address] UA [id number] 01-11-2024 UA Bacteria 1+ [facility] Comment on above: Order Comment: Urina lysis Microscopic order added on by [employer] Expert Rules system. Performed By: #### 1 [id number] #### [facility] (DEFAULT) [address] [place] [address] UA Comment. Clue Cells Seen [facility] Comment on above: Order Comment: Urina lysis Microscopic order added on by [employer] Expert Rules system. Performed By: #### 1 [id number] #### [facility] (DEFAULT) [address] [place] [address] UA RBC 0-2 [facility] Comment on above: Order Comment: Urina lysis Microscopic order added on by [employer] Expert Rules system. Performed By: #### 1 [id number] #### [facility] (DEFAULT) [address] [place] [address] UA Squam Epi Few [facility] Comment on above: Order Comment: Urina lysis Microscopic order added on by [employer] Expert Rules system. Performed By: #### 1 [id number] #### [facility] (DEFAULT) [address] [place] [address] UA WBC 3-5 [facility] Comment on above: Order Comment: Urina lysis Microscopic order added on by [employer] Expert Rules system. Performed By: #### 1 [id number], [id number], [id number] #### [facility] (DEFAULT) [address] [place] [address] UA w Culture if Ind Standard on 01-11-2024 Breakpoint UA [facility] Comment on above: Performed By: #### 1 [id number], [id number], [id number] #### [facility] (DEFAULT) [address] [place] [address] Color (U) Yellow [facility] Comment on above: Performed By: #### 1 [id number], [id number], [id number] #### [facility] (DEFAULT) [address] [place] [address] Culture? Indicated Invalid Interpretation Code [facility] Comment on above: Result Comment: Resu lt created by rule GL_MAGR_ADD_UA_CULT Performed By: #### 1 [id number], [id number], [id number] #### [facility] (DEFAULT) [address] [place] [address] Glucose (U) [Mass/Vol] Negative [facility] Comment on above: Performed By: #### 1 [id number], [id number], [id number] #### [facility] (DEFAULT) [address] [place] [address] Ketones Ql (U) Negative [facility] Comment on above: Performed By: #### 1 [id number], [id number], [id number] #### [facility] (DEFAULT) [address] [place] [address] Micro? Indicated Invalid Interpretation Code [facility] Comment on above: Result Comment: Resu lt created by rule GL_MAGR_ADD_UA_MICRO Result created by rule GL_MAGR_ADD_UA_MICRO Performed By: #### 1 [id number], [id number], [id number] #### [facility] (DEFAULT) [address] [place] [address] UA Bilirubin Negative [facility] Comment on above: Performed By: #### 1 [id number], [id number], [id number] #### [facility] (DEFAULT) [address] [place] [address] UA Blood Negative Normal NEGATIVE [facility] Comment on above: Performed By: #### 1 [id number], [id number], [id number] #### [facility] (DEFAULT) [address] [place] [address] UA Clarity CLEAR Normal CLEAR [facility] Comment on above: Performed By: #### 1 [id number], [id number], [id number] #### [facility] (DEFAULT) [address] [place] [address] UA Leuk Est SMALL Abnormal NEGATIVE [facility] Comment on above: Performed By: #### 1 [id number], [id number], [id number] #### [facility] (DEFAULT) [address] [place] [address] UA Nitrite Negative Normal NEGATIVE [facility] Comment on above: Performed By: #### 1 [id number], [id number], [id number] #### [facility] (DEFAULT) [address] [place] [address] UA pH 6.5 Normal 5-8 [facility] Comment on above: Performed By: #### 1 [id number], [id number], [id number] #### [facility] (DEFAULT) [address] [place] [address] UA Protein Negative Normal NEGATIVE [facility] Comment on above: Performed By: #### 1 [id number], [id number], [id number] #### [facility] (DEFAULT) [address] [place] [address] UA Spec Grav 1.025 Normal 1.001-1.035 [facility] Comment on above: Performed By: #### 1 [id number], [id number], [id number] #### [facility] (DEFAULT) [address] [place] [address] UA Urobilinogen 1.0 mg/dL Normal 0.2-1.0 [facility] Comment on above: Performed By: #### 1 [id number], [id number], [id number] #### [facility] (DEFAULT) [address] [place] [address] Urine Source Clean Catch Normal [facility] Comment on above: Performed By: #### 1 [id number], [id number], [id number] #### [facility] (DEFAULT) [address] [place] [address] hCG Quantitativeon 4 hCG Quantitative 149.6 mIU/mL High 0.0-0.6 [facility] Comment on above: Result Comment: Post -Menopausal Reference Range is: 0.1-11.6 mIU/mL Performed By: #### 1 [id number], [id number] #### [facility] (DEFAULT) [address] [place] [address] ALL CBC WITH AUTO DIFFon BASOPHILS ABSOLUTE AUTO 0.0 [facility] Basophils/100 WBC (Bld) 0.5 % 0.2 - 2.0 % [facility] Eosinophils/100 WBC (Bld) 3.9 % 0.9 - 7.0 % [facility] Erythrocyte distribution width (RBC) [Ratio] 12.5 % 11.0 - 15.0 % [facility] Hematocrit (Bld) [Volume fraction] 42.3 % 36.0 - 48.0 % [facility] Hemoglobin (Bld) [Mass/Vol] 14.4 g/dL 12.0 - 16.0 g/dL [facility] IMMATURE GRANULOCYTES ABS AUTO 0.01 [facility] Immature granulocytes/100 WBC (Bld) 0.2 % 0.0 - 0.5 % [facility] LYMPHOCYTES ABSOLUTE AUTO 2.3 [facility] Lymphocytes/100 WBC (Bld) 35.7 % 20.5 - 60.0 % [facility] MCH (RBC) [Entitic mass] 31.3 pg 26.7 - 34.0 pg [facility] MCHC (RBC) [Mass/Vol] 34.0 g/dL 29.9 - 35.2 g/dL [facility] MCV (RBC) [Entitic vol] 92.0 fL 81.0 - 99.0 fL [facility] MONOCYTES ABSOLUTE AUTO 0.5 [facility] Monocytes/100 WBC (Bld) 7.2 % 1.7 - 12.0 % [facility] NEUTROPHILS ABSOLUTE AUTO 3.4 [facility] Neutrophils/100 WBC (Bld) 52.5 % 43.0 - 75.0 % [facility] Platelet mean volume (Bld) [Entitic vol] 10.1 fL 9.5 - 13.5 fL [facility] TB EO # 0.3 [facility] TB PLT 281 [facility] TB RBC 4.60 [facility] WBC 6.5 [facility] Outside Recordson 03-23-2023 Outside Records [id number]# 1.00OTGTIFF Normal [facility] RAPID STREP SCR NURSINGon S. pyogenes Ag EIA Ql (Throat) Negative Normal NEG [facility] Comment on above: Performed By: #### 6 [id number] #### [facility] ([id number]) [address] [place] [address], [place] [address] SARS/FLU A+B/RSV by NAAT/Mol ecularon 03-22-2023 SARS/FLU [...] operators who are performing tests using either Flayr or igobubble systems and is limited to laboratories that [...] repeat. Fact Sheet for Healthcare Providers: https://www.fda.gov/m edia/584174/download Fact Sheet for Patients: https://www.fda.gov/m edia/453594/download Normal [facility] Comment on above: Performed By: #### C OVFLR #### [facility] ([id number]) [address] [place] [address], [place] [address] US PREG TVon 07-03-2022 US PREG TV [...] by: CHEMA LEE Date: 2022-07-03 17:20 Normal [facility] PREG QUANT HCGon 06-04-2022 HCG QUANT 1906 mIU/mL Normal [facility] Comment on above: Performed By: #### C BC #### [facility] [address] [place] [address] Dr. Qi Benedict HCG RANGE SEE BELOW [facility] Comment on above: Result Comment: 5-50 0.2-1 WEEK 50-500 1-2 WEEKS 100-5,000 2-3 WEEKS 500-10,000 3-4 WEEKS 1,000-50,000 4-5 WEEKS 10,000-100,000 5-6 WEEKS 15,000-200,000 6-8 WEEKS 10,000-100,000 2-3 MONTHS Performed By: #### C BC #### [facility] [address] [place] [address] Dr. Qi Benedict PREG QUANT HCGon 05-29-2022 HCG QUANT 118 mIU/mL Normal [facility]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 [facility] Comment on above: Performed By: #### A FPMAT #### [facility] [address] [place] [address] Dr. Qi Benedict US PREG ANATOMY SINGLEon [...] LYSSA STEWART Date: 2021-09-25 22:35 Normal [facility] CBC AUTO DIFFon 08-29-2021 BASO # 0.0 103/ul Normal 0.0-0.1 [facility] Comment on above: Performed By: #### C BC #### [facility] [address] [address] [address] Qi Benedict Basophils/100 WBC (Bld) 0.3 % Normal 0.2-2.0 [facility] Comment on above: Performed By: #### C BC #### [facility] [address] [address] [address] Qi Benedict EO # 0.1 103/ul Normal 0.0-0.7 [facility] Comment on above: Performed By: #### C BC #### [facility] [address] [place] [address] Dr. Qi Benedict Eosinophils/100 WBC (Bld) 1.1 % Normal 0.9-7.0 [facility] Comment on above: Performed By: #### C BC #### [facility] [address] [place] [address] Dr. Qi Benedict Erythrocyte distribution width (RBC) [Ratio] 13.2 % Normal 11.0-15.0 [facility] Comment on above: Performed By: #### C BC #### [facility] [address] [place] [address] Dr. Qi Benedict Hematocrit (Bld) [Volume fraction] 36.5 % Normal 36.0-48.0 [facility] Comment on above: Performed By: #### C BC #### [facility] [address] [place] [address] Dr. Qi Benedict Hemoglobin (Bld) [Mass/Vol] 12.4 g/dL Normal 12.0-16.0 [facility] Comment on above: Performed By: #### C BC #### [facility] [address] [place] [address] Dr. Qi Benedict IG # 0.03 10e3/ul Normal 0.00-0.03 [facility] Comment on above: Performed By: #### C BC #### [facility] [address] [place] [address] Dr. Qi Benedict IG % 0.3 % Normal 0.0-0.5 [facility] Comment on above: Performed By: #### C BC #### [facility] [address] [place] [address] Dr. Qi Benedict LYMPH # 1.3 103/ul Normal 1.2-3.8 [facility] Comment on above: Performed By: #### C BC #### [facility] [address] [place] [address] Dr. Qi Benedict Lymphocytes/100 WBC (Bld) 13.4 % Critically low 20.5-60.0 [facility] Comment on above: Performed By: #### C BC #### [facility] [address] [place] [address] Dr. Qi Benedict MANUAL DIFF REQ NO Normal [facility] Comment on above: Performed By: #### C BC #### [facility] [address] [place] [address] Dr. Qi Benedict MCH (RBC) [Entitic mass] 31.2 pg Normal 26.7-34.0 [facility] Comment on above: Performed By: #### C BC #### [facility] [address] [place] [address] Dr. iQ Benedict MCHC (RBC) [Mass/Vol] 34.0 g/dL Normal 29.9-35.2 [facility] Comment on above: Performed By: #### C BC #### [facility] [address] [place] [address] Dr. Qi Benedict MCV (RBC) [Entitic vol] 91.9 fL Normal 81.0-99.0 [facility] Comment on above: Performed By: #### C BC #### [facility] [address] [place] [address] Dr. Qi Benedict MONO # 0.5 103/ul Normal 0.3-0.8 [facility] Comment on above: Performed By: #### C BC #### [facility] [address] [place] [address] Dr. Qi Benedict Monocytes/100 WBC (Bld) 5.3 % Normal 1.7-12.0 [facility] Comment on above: Performed By: #### C BC #### [facility] [address] [place] [address] Dr. Qi Benedict NEUT # 7.6 103/ul Critically high 1.4-6.5 [facility] Comment on above: Performed By: #### C BC #### [facility] [address] [place] [address] Dr. Qi Benedict Neutrophils/100 WBC (Bld) 79.6 % Critically high 43.0-75.0 [facility] Comment on above: Performed By: #### C BC #### [facility] [address] [place] [address] Dr. Qi Benedict Platelet mean volume (Bld) [Entitic vol] 9.5 fL Normal 9.5-13.5 [facility] Comment on above: Performed By: #### C BC #### [facility] [address] [place] [address] Dr. Qi Benedict PLT 229 103/ul Normal 150-450 [facility] Comment on above: Performed By: #### C BC #### [facility] [address] [place] [address] Dr. Qi Benedict RBC 3.97 106/ul Critically low 4.20-5.40 [facility] Comment on above: Performed By: #### C BC #### [facility] [address] [place] [address] Dr. Qi Benedict WBC 9.5 103/ul Normal 4.0-11.0 [facility] Comment on above: Performed By: #### C BC #### [facility] [address] [place] [address] Dr. Qi Benedict Covid-19 PCR (CVDTB)on 08-09 SARS-CoV-2 (COVID-19) RNA STEFANIE+probe Ql (Unsp spec) Not detected Normal NOT DETECTED [facility] Comment on above: Result Comment: When [...] for this test is supported by the [employer]r of Health and Human Service's declaration that [...] used). Performed By: #### C VDTBH #### [facility] [address] [address] [address] Qi Benedict ER URINE PROFILEon 2 Bilirubin Ql (U) Negative Normal NEGATIVE [facility] Comment on above: Performed By: #### D RUGRPD #### [facility] [address] [address] [address] Qi Benedict Clarity (U) CLEAR Normal CLEAR [facility] Comment on above: Performed By: #### D RUGRPD #### [facility] [address] [place] [address] Dr. Qi Benedict Color (U) YELLOW Normal YELLOW [facility] Comment on above: Performed By: #### D RUGRPD #### [facility] [address] [place] [address] Dr. Qi TOWNSEND A micrscopic examination will be performed if indicated. Normal [facility] Comment on above: Performed By: #### D RUGRPD #### [facility] [address] [address] [address] Qi Benedict Glucose Ql (U) Negative Normal NEGATIVE [facility] Comment on above: Performed By: #### D RUGRPD #### [facility] [address] [place] [address] Dr. Qi Benedict Hemoglobin Ql (U) Negative Normal NEGATIVE [facility] Comment on above: Performed By: #### D RUGRPD #### [facility] [address] [place] [address] Dr. Qi Benedict Ketones Ql (U) Negative Normal NEGATIVE [facility] Comment on above: Performed By: #### D RUGRPD #### [facility] [address] [address] [address] Qi Benedict LEUKOCYTES Negative Normal NEGATIVE [facility] Comment on above: Performed By: #### D RUGRPD #### [facility] [address] [place] [address] Dr. Qi Benedict Nitrite Ql (U) Negative Normal NEGATIVE [facility] Comment on above: Performed By: #### D RUGRPD #### [facility] [address] [place] [address] Dr. Qi Benedict pH (U) 6.0 [pH] Normal 5-9 [facility] Comment on above: Performed By: #### D RUGRPD #### [facility] [address] [place] [address] Dr. Qi Benedict SPEC GRAVITY 1.025 Normal 1.005-<=1.02 5 [facility] Comment on above: Performed By: #### D RUGRPD #### [facility] [address] [place] [address] Dr. Qi Benedict UA PROTEIN Negative Normal NEGATIVE/ TRACE [facility] Comment on above: Performed By: #### D RUGRPD #### [facility] [address] [place] [address] Dr. Qi Benedict UR MICRO IND NOT INDICATED Normal [facility] Comment on above: Performed By: #### D RUGRPD #### [facility] [address] [place] [address] Dr. Qi Benedict Urobilinogen Qn (U) 0.2 {Yessi'U}/dL Normal 0.2 - 1. 0 [facility] Comment on above: Performed By: #### D RUGRPD #### [facility] [address] [place] [address] Dr. iQ Benedict PROF 14(COMP METB)on 022 Albumin [Mass/Vol] 2.9 g/dL Critically low 3.4-5.0 [facility] Comment on above: Performed By: #### D RUGRPD #### [facility] [address] [place] [address] Dr. Qi Benedict Albumin/Globulin [Mass ratio] 0.8 {ratio} Normal [facility] Comment on above: Performed By: #### D RUGRPD #### [facility] [address] [place] [address] Dr. Qi Benedict ALP [Catalytic activity/Vol] 43 U/L Critically low 46-116 [facility] Comment on above: Performed By: #### D RUGRPD #### [facility] [address] [address] [address] Qi Benedict ALT [Catalytic activity/Vol] 13 U/L Critically low 14-59 [facility] Comment on above: Performed By: #### D RUGRPD #### [facility] [address] [address] [address] Qi Benedict Anion gap [Moles/Vol] 10.6 mmol/L Normal [facility] Comment on above: Performed By: #### D RUGRPD #### [facility] [address] [address] [address] Qi Benedict AST [Catalytic activity/Vol] 9 U/L Critically low 15-37 [facility] Comment on above: Performed By: #### D RUGRPD #### [facility] [address] [place] [address] Dr. Qi Benedict Bilirubin [Mass/Vol] 0.4 mg/dL Normal 0.2-1.0 [facility] Comment on above: Performed By: #### D RUGRPD #### [facility] [address] [place] [address] Dr. Qi Benedict Calcium [Mass/Vol] 8.5 mg/dL Normal 8.5-10.1 [facility] Comment on above: Performed By: #### D RUGRPD #### [facility] [address] [place] [address] Dr. Qi Benedict Chloride [Moles/Vol] 104 mmol/L Normal 98-107 [facility] Comment on above: Performed By: #### D RUGRPD #### [facility] [address] [place] [address] Dr. Qi Benedict CO2 [Moles/Vol] 27.0 mmol/L Normal 21.0-32.0 [facility] Comment on above: Performed By: #### D RUGRPD #### [facility] [address] [place] [address] Dr. Qi Benedict Creatinine [Mass/Vol] 0.61 mg/dL Normal 0.55-1.02 [facility] Comment on above: Performed By: #### D RUGRPD #### [facility] [address] [address] [address] Qi Benedict EGFR-AF [place]ORE[place] >60 Normal >=60 [facility] Comment on above: Performed By: #### D RUGRPD #### [facility] [address] [address] [address] Qi Benedict EGFR-NON AF [place] >60 Normal >=60 [facility] Comment on above: Performed By: #### D RUGRPD #### [facility] [address] [address] [address] Qi Benedict Globulin (S) [Mass/Vol] 3.6 g/dL Normal [facility] Comment on above: Performed By: #### D RUGRPD #### [facility] [address] [place] [address] Dr. Qi Benedict Glucose [Mass/Vol] 83 mg/dL Normal 74-106 [facility] Comment on above: Performed By: #### D RUGRPD #### [facility] [address] [address] [address] Qi Benedict Potassium [Moles/Vol] 3.6 mmol/L Normal 3.5-5.1 [facility] Comment on above: Performed By: #### D RUGRPD #### [facility] [address] [place] [address] Dr. Qi Benedict Protein [Mass/Vol] 6.5 g/dL Normal 6.4-8.2 [facility] Comment on above: Performed By: #### D RUGRPD #### [facility] [address] [place] [address] Dr. Qi Benedict Sodium [Moles/Vol] 138 mmol/L Normal 136-145 [facility] Comment on above: Performed By: #### D RUGRPD #### [facility] [address] [address] [address] Qi Benedict Urea nitrogen [Mass/Vol] 10.0 mg/dL Normal 7.0-18.0 [facility] Comment on above: Performed By: #### D RUGRPD #### [facility] [address] [address] [address] Qi Benedict Urea nitrogen/Creatinine [Mass ratio] 16.4 mg/mg Normal [facility] Comment on above: Performed By: #### D RUGRPD #### [facility] [address] [address] [address] Qi Benedict HCG, ,Urineon 05-31 Beta HCG ( test) Ql (U) Negative Normal NEG [facility] Comment on above: Result Comment: Spec imens with hCG levels near the threshold of the test (25 mIU/mL) may give a negative or indeterminate result. In such cases, another test should be performed with a new specimen in 48-72 hours. If early is suspected clinically in this setting, correlation with quantitative serum b-hCG level is suggested. Performed By: #### U HCG #### [address] [address] Side Stapler: Ketan Lares MD Otheron 06-01-2019 No acute osseous abnormality in the right ankle No acute osseous abnormality in the thoracic spine. [employer] EXAMINATION: THREE XRAY VIEWS OF THE RIGHT [...] loss of height. There is no fracture [employer] Julián, Mhpn Incoming Radiant Results From [employer] - 06/01/2019 3:36 PM EDT EXAMINATION: THREE [...] acute osseous abnormality in the thoracic spine. [place], [place] , Urineon 0 Beta HCG ( test) Ql (U) Negative NEGATIVE [place], [place] Comment on above: Specimens with hCG [...] Ann-Marie Medrano MD 06/01/19 Final result Normal [facility] XR THORACIC SPINE (3 VIEWS)o n 06-01-2019 [...] Ann-Marie Medrano MD 06/01/19 Final result Normal [facility] XR ANKLE RIGHT (MIN 3 VIEWS) on [...] Judah Swift MD 05/25/19 Final result Normal [facility] No fracture or dislocation. [facility] MD EXAMINATION: THREE XRAY VIEWS OF THE RIGHT ANKLE 05/25/2019 12:05 am COMPARISON: 09/12/2018 HISTORY: ORDERING SYSTEM PROVIDED HISTORY: Fall TECHNOLOGIST PROVIDED HISTORY: Fall Reason for Exam: Diffuse right ankle pain Acuity: Acute Type of Exam: Initial Mechanism of Injury: fall FINDINGS: No fracture, dislocation, or focal osseous lesion is noted. No significant soft tissue abnormality seen. [facility] MD Julián, Mhpn Incoming Radiant Results From [employer] - 05/25/2019 12:15 AM EDT EXAMINATION: THREE [...] abnormality seen. IMPRESSION: No fracture or dislocation. [place], [place] HCG, Quanton 05-16-2019 HCG, Quant <1 Normal <5 [facility] Comment on above: Result Comment: Non-preg premeno <=5 Postmeno <=8 Male <=3 If HCG results do not concur with clinical observations, additional testing to confirm results is recommended. Elevated results not associated with may be found in patients with other diseases such as tumors of the germ cells (testis, ovaries, etc.), bladder, pancreas, stomach, lungs, and liver. Performed By: #### B HCG #### [address] [place] [address] Side Stapler: Torsten Philip MD HCG, Quantitative, on 05-15-2019 hCG Quant <1 <5 IU/L [place], [place] Comment on above: Non-preg premeno <=5 [...] Theo Dolan MD 03/12/[address] [facility] CBC with Diffon 01-08-2019 Abs. Basophil 0.10 k/uL Normal 0.0-0.2 [facility] Comment on above: Performed By: #### C DP, HCG, LIP, CP, TROPI, DIME #### [facility] [address] [facility] [place] [address] Side Stapler: Jeremie Gross DO Abs.Neutrophil (Seg) 5.00 k/uL Normal 1.3-9.1 [facility] Comment on above: Performed By: #### C DP, HCG, LIP, CP, TROPI, DIME #### [facility] [address] [facility] [place] [address] Side Stapler: Jeremie Gross DO Basophils/100 WBC (Bld) 1 % Normal 0-2 [facility] Comment on above: Performed By: #### C DP, HCG, LIP, CP, TROPI, DIME #### [facility] [place] [address] Side Stapler: Jeremie Gross DO Eosinophils (Bld) [#/Vol] 0.30 10*3/uL Normal 0.0-0.4 [facility] Comment on above: Performed By: #### C DP, HCG, LIP, CP, TROPI, DIME #### [facility] [address] [facility] [place] [address] Side Stapler: Jeremie Gross DO Eosinophils/100 WBC (Bld) 3 % Normal 0-4 [facility] Comment on above: Performed By: #### C DP, HCG, LIP, CP, TROPI, DIME #### [facility] [address] [facility] [place] [address] Side Stapler: Jeremie Gross DO Erythrocyte distribution width (RBC) [Ratio] 12.9 % Normal 11.5-14.9 [facility] Comment on above: Performed By: #### C DP, HCG, LIP, CP, TROPI, DIME #### [facility] [address] [facility] [place] [address] Side Stapler: Jeremie Gross DO Hematocrit (Bld) [Volume fraction] 43.0 % Normal 36-46 [facility] Comment on above: Performed By: #### C DP, HCG, LIP, CP, TROPI, DIME #### [facility] [address] [facility] [place] [address] Side Stapler: Jeremie Gross DO Hemoglobin (Bld) [Mass/Vol] 14.6 g/dL Normal 12.0-16.0 [facility] Comment on above: Performed By: #### C DP, HCG, LIP, CP, TROPI, DIME #### [facility] [place] [address] Side Stapler: Jeremie Gross DO Lymphocytes (Bld) [#/Vol] 3.10 10*3/uL Normal 1.2-5.2 [facility] Comment on above: Performed By: #### C DP, HCG, LIP, CP, TROPI, DIME #### [facility] [place] [address] Side Stapler: Jeremie Gross DO Lymphocytes/100 WBC (Bld) 34 % Normal 25-45 [facility] Comment on above: Performed By: #### C DP, HCG, LIP, CP, TROPI, DIME #### [facility] [address] [place] [address] Side Stapler: Jeremie Gross DO MCH (RBC) [Entitic mass] 30.9 pg Normal 26-34 [facility] Comment on above: Performed By: #### C DP, HCG, LIP, CP, TROPI, DIME #### [facility] [address] [facility] [place] [address] Side Stapler: Jeremie Gross DO MCHC (RBC) [Mass/Vol] 33.9 g/dL Normal 31-37 [facility] Comment on above: Performed By: #### C DP, HCG, LIP, CP, TROPI, DIME #### [facility] [address] [place] [address] Side Stapler: Jeremie Gross DO MCV (RBC) [Entitic vol] 91.1 fL Normal 80-100 [facility] Comment on above: Performed By: #### C DP, HCG, LIP, CP, TROPI, DIME #### [facility] [address] [place] [address] Side Stapler: Jeremie Gross DO Monocytes (Bld) [#/Vol] 0.70 10*3/uL Normal 0.1-1.3 [facility] Comment on above: Performed By: #### C DP, HCG, LIP, CP, TROPI, DIME #### [facility] [address] [facility] [place] [address] Side Stapler: Jeremie Gross DO Monocytes/100 WBC (Bld) 8 % Normal 2-8 [facility] Comment on above: Performed By: #### C DP, HCG, LIP, CP, TROPI, DIME #### [facility] [place] [address] Side Stapler: Jeremie Gross DO Neutrophil (Seg) 54 % Normal 34-64 [facility] Comment on above: Performed By: #### C DP, HCG, LIP, CP, TROPI, DIME #### [facility] [place] [address] Side Stapler: Jeremie Gross DO Platelet mean volume (Bld) [Entitic vol] 7.8 fL Normal 6.0-12.0 [facility] Comment on above: Performed By: #### C DP, HCG, LIP, CP, TROPI, DIME #### [facility] [address] [place] [address] Side Stapler: Jeremie Gross DO Platelets (Bld) [#/Vol] 245 10*3/uL Normal 150-450 [facility] Comment on above: Performed By: #### C DP, HCG, LIP, CP, TROPI, DIME #### [facility] [address] [place] [address] Side Stapler: Jeremie Gross DO RBC (Bld) [#/Vol] 4.71 10*6/uL Normal 4.0-5.2 [facility] Comment on above: Performed By: #### C DP, HCG, LIP, CP, TROPI, DIME #### [facility] [address] [facility] [place] [address] Side Stapler: Jeremie Gross DO WBC (Bld) [#/Vol] 9.2 10*3/uL Normal 4.5-13.5 [facility] Comment on above: Performed By: #### C DP, HCG, LIP, CP, TROPI, DIME #### [facility] [address] [facility] [place] [address] Side Stapler: Jeremie Gross DO Abs.Imm.Granulocyte NOT REPORTED Normal 0.00-0.30 [facility] Comment on above: Performed By: #### C DP, HCG, LIP, CP, TROPI, DIME #### [facility] [address] [facility] [place] [address] Side Stapler: Jeremie Gross DO Auto Diff Performed NOT REPORTED Normal [facility] Comment on above: Performed By: #### C DP, HCG, LIP, CP, TROPI, DIME #### [facility] [address] [place] [address] Side Stapler: Jeremie Gross DO NRBC Automated NOT REPORTED Normal [facility] Comment on above: Performed By: #### C DP, HCG, LIP, CP, TROPI, DIME #### [facility] [address] [facility] [place] [address] Side Stapler: Jeremie Gross DO Comp Metabolic Profon 2018 Bilirubin Ql (U) <0.15 Low 0.3-1.2 [facility] Comment on above: Performed By: #### C DP, HCG, LIP, CP, TROPI, DIME #### [facility] [address] [facility] [place] [address] Side Stapler: Jeremie Gross DO (cont.) Normal [facility] Comment on above: Result Comment: Aver age GFR for <20 years old not available. Chronic Kidney Disease: <60 mL/min/1.73sq m Kidney failure: <15 mL/min/1.73sq m eGFR calculated using average adult body mass. Additional eGFR calculator available at: http://www.[employer].Invested.in/multiple_crcl_2012.htm Performed By: #### C DP, HCG, LIP, CP, TROPI, DIME #### [facility] [address] [facility] [place] [address] Side Stapler: Jeremie Gross DO Albumin [Mass/Vol] 4.3 g/dL Normal 3.5-5.2 [facility] Comment on above: Performed By: #### C DP, HCG, LIP, CP, TROPI, DIME #### [facility] [address] [facility] [place] [address] Side Stapler: Jeremie Gross DO Alkaline Phos 86 U/L Normal 35-104 [facility] Comment on above: Performed By: #### C DP, HCG, LIP, CP, TROPI, DIME #### [facility] [address] [facility] [place] [address] Side Stapler: Jeremie Gross DO ALT [Catalytic activity/Vol] 9 U/L Normal 5-33 [facility] Comment on above: Performed By: #### C DP, HCG, LIP, CP, TROPI, DIME #### [facility] [address] [place] [address] Side Stapler: Jeremie Gross DO Anion gap [Moles/Vol] 11 mmol/L Normal 9-17 [facility] Comment on above: Performed By: #### C DP, HCG, LIP, CP, TROPI, DIME #### [facility] [address] [place] [address] Side Stapler: Jeremie Gross DO AST [Catalytic activity/Vol] 12 U/L Normal <32 [facility] Comment on above: Performed By: #### C DP, HCG, LIP, CP, TROPI, DIME #### [facility] [address] [place] [address] Side Stapler: Jeremie Gross DO Calcium [Mass/Vol] 9.3 mg/dL Normal 8.6-10.4 [facility] Comment on above: Performed By: #### C DP, HCG, LIP, CP, TROPI, DIME #### [facility] [address] [facility] [place] [address] Side Stapler: Jeremie Gross DO Chloride [Moles/Vol] 104 mmol/L Normal 98-107 [facility] Comment on above: Performed By: #### C DP, HCG, LIP, CP, TROPI, DIME #### [facility] [place] [address] Side Stapler: Jeremie Gross DO CO2 [Moles/Vol] 25 mmol/L Normal 20-31 [facility] Comment on above: Performed By: #### C DP, HCG, LIP, CP, TROPI, DIME #### [facility] [address] [place] [address] Side Stapler: Jeremie Gross DO Creatinine [Mass/Vol] 0.53 mg/dL Normal 0.50-0.90 [facility] Comment on above: Performed By: #### C DP, HCG, LIP, CP, TROPI, DIME #### [facility] [address] [place] [address] Side Stapler: Jeremie Gross DO GFR,non Amer Pediatric GFR requires additional information. Refer to NKDEP website for Normal >60 [facility] Comment on above: Result Comment: calc ulator. Performed By: #### C DP, HCG, LIP, CP, TROPI, DIME #### [facility] [address] [place] [address] Side Stapler: Jeremie Gross DO Glucose [Mass/Vol] 86 mg/dL Normal 70-99 [facility] Comment on above: Performed By: #### C DP, HCG, LIP, CP, TROPI, DIME #### [facility] [address] [facility] [place] [place] [address] Side Stapler: Jeremie Gross DO Potassium [Moles/Vol] 3.7 mmol/L Normal 3.7-5.3 [facility] Comment on above: Performed By: #### C DP, HCG, LIP, CP, TROPI, DIME #### [facility] [address] [place] [address] Side Stapler: Jeremie Gross DO Protein [Mass/Vol] 7.4 g/dL Normal 6.4-8.3 [facility] Comment on above: Performed By: #### C DP, HCG, LIP, CP, TROPI, DIME #### [facility] [address] [place] [address] Side Stapler: Jeremie Gross DO Sodium [Moles/Vol] 140 mmol/L Normal 135-144 [facility] Comment on above: Performed By: #### C DP, HCG, LIP, CP, TROPI, DIME #### [facility] [address] [facility] [place] [address] Side Stapler: Jeremie Gross DO Urea nitrogen [Mass/Vol] 18 mg/dL Normal 6-20 [facility] Comment on above: Performed By: #### C DP, HCG, LIP, CP, TROPI, DIME #### [facility] [address] [facility] [place] [address] Side Stapler: Jeremie Gross DO GFR, Amer NOT REPORTED Normal >60 [facility] Comment on above: Performed By: #### C DP, HCG, LIP, CP, TROPI, DIME #### [facility] [address] [facility] [place] [address] Side Stapler: Jeremie Gross DO Staging: NOT REPORTED Normal [facility] Comment on above: Performed By: #### C DP, HCG, LIP, CP, TROPI, DIME #### [facility] [address] [facility] [place] [address] Side Stapler: Jeremie Gross DO D-Dimer Teston 01-08-2019 D-Dimer Test 0.34 mg/L FEU Normal 0.00-0.59 [facility] Comment on above: Result Comment: When combined [...] DP, HCG, LIP, CP, TROPI, DIME #### [facility] [address] [facility] [place] [address] Side Stapler: Jeremie Gross DO HCG Screen, Blood 01-09-20 19 HCG Qn Negative Normal NEG [facility] Comment on above: Result Comment: Spec imens [...] DP, HCG, LIP, CP, TROPI, DIME #### [facility] [address] [facility] [place] [address] Side Stapler: Jeremie Gross DO Lipaseon 01-08-2019 Lipase [Catalytic activity/Vol] 28 U/L Normal 13-60 [facility] Comment on above: Performed By: #### C DP, HCG, LIP, CP, TROPI, DIME #### [facility] [address] [facility] [place] [address] Side Stapler: Jeremie Gross DO Troponinon 01-08-2019 Troponin I.cardiac [Mass/Vol] ng/mL Normal 0-14 [facility] Comment on above: Result Comment: High Sensitivity Troponin values cannot be compared with other Troponin methodologies. Patients with high levels of Biotin oral intake (i.e >5mg/day) may have falsely decreased Troponin levels. Samples collected within 8 hours of biotin intake may require additional information for diagnosis. Performed By: #### U HCG, UAX #### [facility] [address] [facility] [place] [address] Side Stapler: Jeremie Gross DO Troponin I.cardiac [Mass/Vol] NOT REPORTED Normal <0.03 [facility] Comment on above: Performed By: #### U HCG, UAX #### [facility] [address] [facility] [place] [address] Side Stapler: Jeremie Gross DO Performed By: #### C DP, HCG, LIP, CP, TROPI, DIME #### [facility] [address] [facility] [place] [address] Side Stapler: Jeremie Gross DO Troponin I.cardiac [Mass/Vol] ng/mL Normal 0-14 [facility] Comment on above: Result Comment: High Sensitivity Troponin values cannot be compared with other Troponin methodologies. Patients with high levels of Biotin oral intake (i.e >5mg/day) may have falsely decreased Troponin levels. Samples collected within 8 hours of biotin intake may require additional information for diagnosis. Performed By: #### C DP, HCG, LIP, CP, TROPI, DIME #### [facility] [address] [facility] [place] [address] Side Stapler: Jeremie Gross DO UA w/Reflex Cultureon 2018 Acetoacetic Acid,Ur Negative Normal NEG [facility] Comment on above: Performed By: #### U HCG, UAX #### [facility] [address] [place] [address] Side Stapler: Jeremie Gross DO Bilirubin, SemiQt,Ur Negative Normal NEG [facility] Comment on above: Performed By: #### U HCG, UAX #### [facility] [address] [place] [address] Side Stapler: Jeremie Gross DO Color (U) YELLOW Normal YEL [facility] Comment on above: Performed By: #### U HCG, UAX #### [facility] [place] [address] Side Stapler: Jeremie Gross DO Glucose Ql (U) Negative Normal NEG [facility] Comment on above: Performed By: #### U HCG, UAX #### [facility] [address] [place] [address] Side Stapler: Jeremie Gross DO Hemoglobin, Ur Negative Normal NEG [facility] Comment on above: Performed By: #### U HCG, UAX #### [facility] [address] [place] [address] Side Stapler: Jeremie Gross DO Leukocyte esterase Test strip Ql (U) Negative Normal NEG [facility] Comment on above: Performed By: #### U HCG, UAX #### [facility] [address] [place] [address] Side Stapler: Jeremie Gross DO Nitrite,Ur Negative Normal NEG [facility] Comment on above: Performed By: #### U HCG, UAX #### [facility] [address] [place] [address] Side Stapler: Jeremie Gross DO pH (U) 6.5 [pH] Normal 5.0-8.0 [facility] Comment on above: Performed By: #### U HCG, UAX #### [facility] [place] [address] Side Stapler: Jeremie Gross DO Protein Ql (U) Negative Normal NEG [facility] Comment on above: Performed By: #### U HCG, UAX #### [facility] [address] [place] [address] Side Stapler: Jeremie Gross DO Specific gravity (U) [Rel density] 1.024 Normal 1.000-1.030 [facility] Comment on above: Performed By: #### U HCG, UAX #### [facility] [address] [place] [address] Side Stapler: Jeremie Gross DO Turbidity CLOUDY Abnormal CLEAR [facility] Comment on above: Performed By: #### U HCG, UAX #### [facility] [address] [place] [address] Side Stapler: Jeremie Gross DO Urobilinogen,Ur Normal Normal NORM [facility] Comment on above: Performed By: #### U HCG, UAX #### [facility] [address] [place] [address] Side Stapler: Jeremie Gross DO Comment NOT REPORTED Normal [facility] Comment on above: Performed By: #### U HCG, UAX #### [facility] [address] [place] [address] Side Stapler: Jeremie Gross DO Urinalysis,Microon 9 ----- Normal [facility] Comment on above: Performed By: #### U HCG, UAX #### [facility] [address] [place] [address] Side Stapler: Jeremie Gross DO Bacteria LM.HPF (Urine sed) [#/Area] FEW Abnormal NONE [facility] Comment on above: Performed By: #### U HCG, UAX #### [facility] [address] [place] [address] Side Stapler: Jeremie Gross DO Epithelial cells LM.HPF (Urine sed) [#/Area] [address] [facility] Comment on above: Performed By: #### U HCG, UAX #### [facility] [address] [place] [address] Side Stapler: Jeremie Gross DO RBC (U) [#/Vol] [address] [facility] Comment on above: Performed By: #### U HCG, UAX #### [facility] [address] [place] [address] Side Stapler: Jeremie Gross DO WBC (U) [#/Vol] [address] [facility] Comment on above: Performed By: #### U HCG, UAX #### [facility] [address] [place] [address] Side Stapler: Jeremie Gross DO Amorphous sediment LM Ql (Urine sed) NOT REPORTED Normal [facility] Comment on above: Performed By: #### U HCG, UAX #### [facility] [address] [place] [address] Side Stapler: Jeremie Gross DO Casts LM.LPF (Urine sed) [#/Area] NOT REPORTED Normal [facility] Comment on above: Performed By: #### U HCG, UAX #### [facility] [address] [place] [address] Side Stapler: Jeremie Gross DO Crystals LM Nom (Urine sed) NOT REPORTED Normal [facility] Comment on above: Performed By: #### U HCG, UAX #### [facility] [address] [facility] [place] [address] Side Stapler: Jeremie Gross DO Epithelial, Renal NOT REPORTED Normal 0 [facility] Comment on above: Performed By: #### U HCG, UAX #### [facility] [address] [facility] [place] [address] Side Stapler: Jeremie Gross DO Mucus Strands NOT REPORTED Normal NONE [facility] Comment on above: Performed By: #### U HCG, UAX #### [facility] [place] [address] Side Stapler: Jeremie Gross DO Other Observations NOT REPORTED Normal NREQ [facility] Comment on above: Performed By: #### U HCG, UAX #### [facility] [address] [place] [address]. [place] [address] Side Stapler: Jeremie Gross DO Trichomonas NOT REPORTED Normal NONE [facility] Comment on above: Performed By: #### U HCG, UAX #### [facility] [place] [address] Side Stapler: Jeremie Gross DO Yeast LM Ql (Urine sed) NOT REPORTED Normal NONE [facility] Comment on above: Performed By: #### U HCG, UAX #### [facility] [address] [place] [address] Side Stapler: Jeremie Gross DO XR CHEST (2 VW)on [...] Levi Munroe MD 01/07/[address] [facility] CBC Auto Differentialon 11- Basophils (Bld) [#/Vol] 0.10 10*3/uL [place] Basophils/100 WBC (Bld) 1 % 0 - 2 % [place] Differential Type NOT REPORTED [place] Eosinophils (Bld) [#/Vol] 0.30 10*3/uL [place] Eosinophils/100 WBC (Bld) 3 % 0 - 4 % [place] Erythrocyte distribution width (RBC) [Ratio] 12.9 % 11.5 - 14.9 % [place] Hematocrit (Bld) [Volume fraction] 43.0 % 36 - 46 % [place] Hemoglobin (Bld) [Mass/Vol] 14.6 g/dL 12 - 16 g/dL [place] Lymphocytes (Bld) [#/Vol] 3.10 10*3/uL [place] Lymphocytes/100 WBC (Bld) 34 % 25 - 45 % [place] MCH (RBC) [Entitic mass] 30.9 pg 26 - 34 pg [place] MCHC (RBC) [Mass/Vol] 33.9 g/dL 31 - 37 g/dL [place], [place] MCV (RBC) [Entitic vol] 91.1 fL 80 - 100 fL [place] Monocytes (Bld) [#/Vol] 0.70 10*3/uL [place] Monocytes/100 WBC (Bld) 8 % 2 - 8 % [place] Platelet mean volume (Bld) [Entitic vol] 7.8 fL 6 - 12 fL [place], [place] Platelets (Bld) [#/Vol] 245 10*3/uL [place] RBC (Bld) [#/Vol] 4.71 10*6/uL 4 - 5.2 m/uL [place] Segmented neutrophils/100 WBC (Bld) 54 % 34 - 64 % [place] Segs Absolute 5.00 [place], [place] WBC (Bld) [#/Vol] 9.2 10*3/uL [place] WBC (Bld) [#/Vol] NOT REPORTED per 100 WBC [place], [place] CBC with Diffon 01-07-2019 Immature granulocytes (Bld) [#/Vol] NOT REPORTED Normal 0 [place] Comment on above: Performed By: #### C DP, HCG, LIP, CP, TROPI, DIME #### [facility] [address] [facility] [place] [address] Side Stapler: Jeremie Gross DO Platelets (Bld) [#/Vol] NOT REPORTED Normal [place] Comment on above: Performed By: #### C DP, HCG, LIP, CP, TROPI, DIME #### [facility] [address] [facility] [place] [address] Side Stapler: Jeremie Gross DO RBC morphology finding Nom (Bld) NOT REPORTED Normal [place], [place] Comment on above: Performed By: #### C DP, HCG, LIP, CP, TROPI, DIME #### [facility] [address] [place] [address] Side Stapler: Jeremie Gross DO WBC Morphology NOT REPORTED Normal [place], [place] Comment on above: Performed By: #### C DP, HCG, LIP, CP, TROPI, DIME #### [facility] [address] [place] [address] Side Stapler: Jeremie Gross DO Comp Metabolic Profon 2018 Albumin/Globulin [Mass ratio] NOT REPORTED Normal 1.0-2.5 [place], [place] Comment on above: Performed By: #### C DP, HCG, LIP, CP, TROPI, DIME #### [facility] [address] [place] [address] Side Stapler: Jeremie Gross DO Bun/Cre Ratio NOT REPORTED Normal 9-20 [place], [place] Comment on above: Performed By: #### C DP, HCG, LIP, CP, TROPI, DIME #### [facility] [address] [place] [address] Side Stapler: Jeremie Gross DO Comprehensive Metabolic Pane eric 01-07-2019 Albumin [Mass/Vol] 4.3 g/dL 3.5 - 5.2 g/dL [place], [place] ALP [Catalytic activity/Vol] 86 U/L 35 - 104 U/L [place] ALT [Catalytic activity/Vol] 9 U/L 5 - 33 U/L [place] Anion gap [Moles/Vol] 11 mmol/L 9 - 17 mmol/L [place] AST [Catalytic activity/Vol] 12 U/L <32 [place] Bilirubin Ql (U) <0.15 Low 0.3 - 1.2 mg/dL [place] Calcium [Mass/Vol] 9.3 mg/dL 8.6 - 10. 4 mg/dL [place] Chloride [Moles/Vol] 104 mmol/L 98 - 10 7 mmol/L [place] CO2 [Moles/Vol] 25 mmol/L 20 - 31 mmol/L [place] Creatinine [Mass/Vol] 0.53 mg/dL 0.5 - 0.9 mg/dL [place] GFR NOT REPORTED >60 mL/min [place] GFR Non- Pediatric GFR requires additional information. Refer to NKDEP website for calculator. >60 mL/min [place] GFR/1.73 sq M predicted among non-blacks MDRD (S/P/Bld) [Vol rate/Area] [place] Comment on above: Average GFR for <20 years old not available. Chronic Kidney Disease: <60 mL/min/1.73sq m Kidney failure: <15 mL/min/1.73sq m eGFR calculated using average adult body mass. Additional eGFR calculator available at: http://www.[employer].Invested.in/multiple_crcl_2012.htm GFR/1.73 sq M predicted among non-blacks MDRD (S/P/Bld) [Vol rate/Area] NOT REPORTED [place], [place] Glucose [Mass/Vol] 86 mg/dL 70 - 99 mg/dL [place] Interpretation and review of laboratory results Abnormal [place] Potassium [Moles/Vol] 3.7 mmol/L 3.7 - 5.3 mmol/L [place] Protein [Mass/Vol] 7.4 g/dL 6.4 - 8.3 g/dL [place] Sodium [Moles/Vol] 140 mmol/L 135 - 144 mmol/L [place] Urea nitrogen [Mass/Vol] 18 mg/dL 6 - 20 mg/dL [place] D-Dimer, Quantitativeon 11-3 D-Dimer, Quant 0.34 [place], [place] Comment on above: When combined with [...] Bloodon 01-08-20 19 hCG Qual Negative NEGATIVE [place], [place] Comment on above: Specimens with hCG [...] activity/Vol] 28 U/L 13 - 60 U/L [place] Microscopic Urinalysison Amorphous, UA NOT REPORTED None [place], [place] Bacteria, UA FEW Abnormal None [place], [place] Casts UA NOT REPORTED /LPF [place] Crystals UA NOT REPORTED None /HPF [place] Epithelial Cells UA 5 TO 10 /HPF [place], [place] Interpretation and review of laboratory results Abnormal [place] Mucus, UA NOT REPORTED None [place] Other Observations UA NOT REPORTED NOT REQ. [place] RBC (U) [#/Vol] 0 TO 2 /HPF [place], [place] Renal Epithelial, Urine NOT REPORTED 0 /HPF [place], [place] Trichomonas, UA NOT REPORTED None [facility] [place] WBC, UA 0 TO 2 /HPF [place] Yeast, UA NOT REPORTED None [place], [place] - [place] Troponinon 01-07-2019 Troponin I.cardiac [Mass/Vol] NOT REPORTED [place] Troponin T.cardiac [Mass/Vol] NOT REPORTED <0.03 ng/mL [place] Troponin, High Sensitivity <6 0 - 14 ng/L [place] Comment on above: High Sensitivity Troponin values cannot be compared with other Troponin methodologies. Patients with high levels of Biotin oral intake (i.e >5mg/day) may have falsely decreased Troponin levels. Samples collected within 8 hours of biotin intake may require additional information for diagnosis. Troponin I.cardiac [Mass/Vol] NOT REPORTED [place] Troponin T.cardiac [Mass/Vol] NOT REPORTED <0.03 ng/mL [place] Troponin, High Sensitivity <6 0 - 14 ng/L [place] Comment on above: High Sensitivity Troponin values cannot be compared with other Troponin methodologies. Patients with high levels of Biotin oral intake (i.e >5mg/day) may have falsely decreased Troponin levels. Samples collected within 8 hours of biotin intake may require additional information for diagnosis. Urinalysis Reflex to Culture on 01-07-2019 Bilirubin Urine Negative NEGATIVE [place], [place] Color, UA YELLOW YELLOW [place], [place] Glucose, Ur Negative NEGATIVE [place] Interpretation and review of laboratory results Abnormal [place] Ketones Ql (U) Negative NEGATIVE [place], [place] Leukocyte esterase Test strip Ql (U) Negative NEGATIVE [place] Nitrite, Urine Negative NEGATIVE [place], [place] pH, UA 6.5 [place], [place] Protein (U) [Mass/Vol] Negative NEGATIVE [place], [place] Specific [place], UA 1.024 [place], [place] Turbidity UA CLOUDY Abnormal CLEAR [place] Urinalysis Comments NOT REPORTED [place], [place] Urine Hgb Negative NEGATIVE [place], [place] Urobilinogen, Urine Normal Normal [place], [place] XR CHEST STANDARD (2 VW)on 03-09-2018 [...] The osseous structures are without acute process. [place], [place] Julián, Mhpn Incoming Radiant Results From [facility]acs - 01/07/2019 10:07 PM EST EXAMINATION: TWO [...] without acute process. IMPRESSION: No acute process. [place] No acute process. [place], [place] HCG, ,Urineon 12-03 Beta HCG ( test) Ql (U) Negative Normal NEG [facility] Comment on above: Result Comment: Spec imens with hCG levels near the threshold of the test (25 mIU/mL) may give a negative or indeterminate result. In such cases, another test should be performed with a new specimen in 48-72 hours. If early is suspected clinically in this setting, correlation with quantitative serum b-hCG level is suggested. Performed By: #### U HCG, UAX #### [facility] [address] [place], [place] [id number] Side Stapler: Jeremie Gross DO Beta HCG ( test) Ql (U) Negative NEGATIVE [place] Comment on above: Specimens with hCG [...] Cultureon 2018 Acetoacetic Acid,Ur Negative Normal NEG [facility] Comment on above: Performed By: #### U HCG, UAX #### [facility] [address] [place] [address] Side Stapler: Jeremie Gross DO Bilirubin, SemiQt,Ur Negative Normal NEG [facility] Comment on above: Performed By: #### U HCG, UAX #### [facility] [address] [place], [place] [id number] Side Stapler: Jeremie Gross DO Color (U) YELLOW Normal YEL [facility] Comment on above: Performed By: #### U HCG, UAX #### [facility] [address] [place] [address] Side Stapler: Jeremie Gross DO Comment Microscopic exam not performed based on chemical results unless requested in Normal [facility] Comment on above: Result Comment: orig inal order. Performed By: #### U HCG, UAX #### [facility] [address] [place] [address] Side Stapler: Jeremie Gross DO Glucose Ql (U) Negative Normal NEG [facility] Comment on above: Performed By: #### U HCG, UAX #### [facility] [address] [place] [address] Side Stapler: Jeremie Gross DO Hemoglobin, Ur Negative Normal NEG [facility] Comment on above: Performed By: #### U HCG, UAX #### [facility] [address] [place] [address] Side Stapler: Jeremie Gross DO Nitrite,Ur Negative Normal NEG [facility] Comment on above: Performed By: #### U HCG, UAX #### [facility] [address] [place] [address] Side Stapler: Jeremie Gross DO pH (U) 8.5 [pH] High 5.0-8.0 [facility] Comment on above: Performed By: #### U HCG, UAX #### [facility] [address] [place] [address] Side Stapler: Jeremie Gross DO Protein Ql (U) Negative Normal NEG [facility] Comment on above: Performed By: #### U HCG, UAX #### [facility] [address] [place] [address] Side Stapler: Jeremie Gross DO Specific gravity (U) [Rel density] 1.018 Normal 1.000-1.030 [facility] Comment on above: Performed By: #### U HCG, UAX #### [facility] [place] [address] Side Stapler: Jeremie Gross DO Turbidity CLEAR Normal CLEAR [facility] Comment on above: Performed By: #### U HCG, UAX #### [facility] [address] [address] [place] [address] Side Stapler: Jeremie Gross DO Urobilinogen,Ur Normal Normal NORM [facility] Comment on above: Performed By: #### U HCG, UAX #### [facility] [address] [place] [address] Side Stapler: Jeremie Gross DO Leukocyte esterase Test strip Ql (U) Negative Normal NEG [facility] Comment on above: Performed By: #### U HCG, UAX #### [facility] [address] [place] [address] Side Stapler: Jeremie Gross DO Urinalysis Reflex to Culture on 2018 Bilirubin Urine Negative NEGATIVE [facility] [place] Color, UA YELLOW YELLOW [facility] Glucose, Ur Negative NEGATIVE [facility] Interpretation and review of laboratory results Abnormal [facility] Ketones Ql (U) Negative NEGATIVE [facility] Nitrite, Urine Negative NEGATIVE [facility] [place] pH, UA 8.[address] [facility] Protein (U) [Mass/Vol] Negative NEGATIVE [facility] Specific [place], UA 1.018 [facility] [place] Turbidity UA CLEAR CLEAR [facility] [place] Urinalysis Comments Microscopic exam not performed based on chemical results unless requested in original order. [facility] [employer], [place] Urine Hgb Negative NEGATIVE [facility] [place] Urobilinogen, Urine Normal Normal [facility]- [place], [place] XR ANKLE RIGHT (MIN 3 VIEWS) [...] Damian Ochoa MD 09/12/[address] [facility] Vital Signs Date Time Vital Sign Value Performing Clinician Facility 08-17-2024 09:59-0400 Body mass index (BMI) [Ratio] 28.7 kg/m2 [employer] DO Work Phone: [facility] 08-17-2024 09:59-0400 Body weight 73.48 kg Eusebio Carole DO Work Phone: [facility] 08-17-2024 09:59-0400 Diastolic blood pressure 60 mm[Hg] Eusebio Carole DO Work Phone: [facility] 08-17-2024 09:59-0400 Systolic blood pressure 108 mm[Hg] Eusebio Carole DO Work Phone: [facility] 08-09-2024 08:36-0400 Body mass index (BMI) [Ratio] 29.01 kg/m2 Radha Diego [employer] Work Phone: [facility] 08-09-2024 08:36-0400 Body weight 74.28 kg Radha Avendanoerly [employer] Work Phone: [facility] 08-09-2024 08:36-0400 Diastolic blood pressure 58 mm[Hg] Radha Brandie [employer] Work Phone: [facility] 08-09-2024 08:36-0400 Systolic blood pressure 110 mm[Hg] Radha Brandie [employer] Work Phone: [facility] 07-26-2024 11:21-0400 Body mass index (BMI) [Ratio] 28.61 kg/m2 Eusebio Carole DO Work Phone: [facility] 07-26-2024 11:21-0400 Body weight 73.26 kg Eusebio Carole DO Work Phone: [facility] 07-26-2024 11:21-0400 Diastolic blood pressure 62 mm[Hg] Eusebio Carole DO Work Phone: [facility] 07-26-2024 11:21-0400 Systolic blood pressure 102 mm[Hg] Eusebio Carole DO Work Phone: [facility] 07-13-2024 10:50-0400 Body mass index (BMI) [Ratio] 27.81 kg/m2 Eusebio Carole DO Work Phone: [facility] 07-13-2024 10:50-0400 Body weight 71.22 kg Eusebio Carole DO Work Phone: [facility] 07-13-2024 10:50-0400 Diastolic blood pressure 68 mm[Hg] Eusebio Carole DO Work Phone: [facility] 07-13-2024 10:50-0400 Systolic blood pressure 110 mm[Hg] Eusebio Carole DO Work Phone: [facility] 06-28-2024 10:14-0400 Body mass index (BMI) [Ratio] 28.3 kg/m2 Radha GARCIA Work Phone: [facility] 06-28-2024 10:14-0400 Body weight 72.46 kg Radha GARCIA Work Phone: [facility] 06-28-2024 10:14-0400 Diastolic blood pressure 60 mm[Hg] Radha GARCIA Work Phone: [facility] 06-28-2024 10:14-0400 Systolic blood pressure 110 mm[Hg] Radha GARCIA Work Phone: [facility] 06-13-2024 12:02-0400 Body mass index (BMI) [Ratio] 27.99 kg/m2 Eusebio Carole DO Work Phone: [facility] 06-13-2024 12:02-0400 Body weight 71.67 kg Eusebio Carole DO Work Phone: [facility] 06-13-2024 12:02-0400 Diastolic blood pressure 74 mm[Hg] Eusebio Carole DO Work Phone: [facility] 06-13-2024 12:02-0400 Systolic blood pressure 122 mm[Hg] Eusebio Carole DO Work Phone: [facility] 05-16-2024 09:43-0400 Body mass index (BMI) [Ratio] 25.86 kg/m2 Eusebio Carole DO Work Phone: [facility] 05-16-2024 09:43-0400 Body weight 66.22 kg Eusebio Carole DO Work Phone: [facility] 05-16-2024 09:43-0400 Diastolic blood pressure 70 mm[Hg] Eusebio Carole DO Work Phone: [facility] 05-16-2024 09:43-0400 Systolic blood pressure 120 mm[Hg] Eusebio Carole DO Work Phone: [facility] 04-17-2024 13:30-0400 Body mass index (BMI) [Ratio] 23.52 kg/m2 Radha GARCIA Work Phone: [facility] 04-17-2024 13:30-0400 Body weight 60.24 kg Radha GARCIA Work Phone: [facility] 04-17-2024 13:30-0400 Diastolic blood pressure 60 mm[Hg] Radha Greenville PA Work Phone: [facility] 04-17-2024 13:30-0400 Systolic blood pressure 100 mm[Hg] Radha Greenville PA Work Phone: [facility] 03-22-2024 11:21-0500 Body mass index (BMI) [Ratio] 22.34 kg/m2 Radha Austin PA Work Phone: [facility] 03-22-2024 11:21-0500 Body weight 57.21 kg Radha Austin PA Work Phone: [facility] 03-22-2024 11:21-0500 Diastolic blood pressure 74 mm[Hg] Radha Greenville PA Work Phone: [facility] 03-22-2024 11:21-0500 Systolic blood pressure 110 mm[Hg] Radha Greenville PA Work Phone: [facility] 03-09-2023 14:31-0500 Body mass index (BMI) [Ratio] 25.51 kg/m2 Eusebio Carole DO Work Phone: [facility] 03-09-2023 14:31-0500 Body weight 65.32 kg Eusebio Carole DO Work Phone: [facility] 03-09-2023 14:31-0500 Diastolic blood pressure 72 mm[Hg] Eusebio Carole DO Work Phone: [facility] 03-09-2023 14:31-0500 Systolic blood pressure 120 mm[Hg] Eusebio Carole DO Work Phone: [facility] 10-05-2021 02:05-0400 Body weight 80.[address] EUSEBIO LAM . [facility] Comment on above: Performed By: #### AFPMAT #### [facility] [address] [place] [address] Dr. Qi Benedict 06-01-2019 14:51-0400 BMI (Body Mass Index) 31.35 kg/m2 [facility], [place] 06-01-2019 14:51-0400 Body Temperature 99 [degF] [facility], [place] 06-01-2019 14:51-0400 Body weight 80.29 kg [facility] , [place] 06-01-2019 14:51-0400 Height 160 cm [facility] , [place] 06-01-2019 14:51-0400 Pulse (Heart Rate) 83 /min [facility], [place] 06-01-2019 14:51-0400 Pulse Oximetry 99 % [facility] , [place] 06-01-2019 14:51-0400 Respiratory Rate 16 /min [facility], [place] 05-24-2019 23:36-0400 BMI (Body Mass Index) 32.01 kg/m2 [facility], [place] 05-24-2019 23:36-0400 Body Temperature 98.6 [degF] [facility], [place] 05-24-2019 23:36-0400 Body weight 79.38 kg [facility] , [place] 05-24-2019 23:36-0400 BP Diastolic 86 mm[Hg] [facility] , [place] 05-24-2019 23:36-0400 BP Systolic 135 mm[Hg] [facility] , [place] 05-24-2019 23:36-0400 Height 157.5 cm [facility] , [place] 05-24-2019 23:36-0400 Pulse (Heart Rate) 98 /min [facility], [place] 05-24-2019 23:36-0400 Pulse Oximetry 99 % [facility] , [place] 05-24-2019 23:36-0400 Respiratory Rate 20 /min [facility], [place] 01-07-2019 23:25-0500 Body Temperature 98.6 [degF] Ann-Marie Engle [facility], [place] 01-07-2019 23:25-0500 BP Diastolic 78 mm[Hg] Ann-Marie [facility] , [place] 01-07-2019 23:25-0500 BP Systolic 124 mm[Hg] Ann-Marie [facility] , [place] 01-07-2019 23:25-0500 Pulse (Heart Rate) 77 /min Ann-Marie [facility], [place] 01-07-2019 23:25-0500 Pulse Oximetry 99 % Ann-Marie [facility] , [place] 01-07-2019 23:25-0500 Respiratory Rate 16 /min Ann-Marie [facility], [place] 01-07-2019 21:09-0500 Height 160 cm [place], [place] 2018 17:25-0400 BMI (Body Mass Index) 25.61 kg/m2 [place], [place] 2018 17:25-0400 Body Temperature 98.1 [degF] [place], [place] 2018 17:25-0400 Body weight 63.5 kg [place], [place] 2018 17:25-0400 BP Diastolic 64 mm[Hg] [place], [place] 2018 17:25-0400 BP Systolic 92 mm[Hg] [place] 2018 17:25-0400 Height 157.5 cm [place] 2018 17:25-0400 Pulse (Heart Rate) 80 /min [place], [place] 2018 17:25-0400 Pulse Oximetry 98 % [place] 2018 17:25-0400 Respiratory Rate 16 /min [place] Encounters Encounter Date Encounter Type Care Provider Facility Start: 08-17-2024 End: 08-17-2024 BamExerscripheet Eusebio Carole DO Work Phone: [facility] Start: 08-17-2024 End: 08-17-2024 Bamboo flowsheet Eusebio Carole DO Work Phone: [facility] Start: 08-17-2024 End: 08-17-2024 Clinisync Result Encounter Eusebio Carole DO Work Phone: [facility] External [facility] Unsolicited Start: 08-17-2024 End: 08-17-2024 Office outpatient visit 15 minutes Eusebio Carole DO Work Phone: [facility] Comment on above: Third trimester preg cindi ([facility] 35 weeks gestation of ([facility]) Start: 08-09-2024 End: 08-09-2024 Bamboo flowsheet Radhaalmas Paniagualy [employer]TER Work Phone: [facility] Start: 08-09-2024 End: 08-09-2024 Bamboo flowsheet Radha Brandie [employer] Work Phone: [facility] Start: 08-09-2024 End: 08-09-2024 Clinisync Result Encounter Eusebio Carole DO Work Phone: [facility] External [facility] Unsolicited Start: 08-09-2024 End: 08-09-2024 Office outpatient visit 15 minutes Radha Diego [employer] Work Phone: [facility] Comment on above: Third trimester preg cindi ([facility]); 33 weeks gestation of ([facility]) Start: 08-09-2024 End: 08-09-2024 ambulatory RADHA BRANDIE Not Available Start: 08-03-2024 End: 08-03-2024 Clinisync [...] Comment on above: Third trimester preg cindi ([facility]); 31 weeks gestation of ([facility]) Start: 07-13-2024 End: 07-13-2024 Bamboo flowsheet Eusebio [...] 06-28-2024 Office outpatient visit 15 minutes Radha GARCIA Work Phone: [facility] Comment on above: Second trimester pre gnancy; 27 weeks gestation of Start: 06-28-2024 End: 06-28-2024 ambulatory RADHA AVILA Not Available Start: 06-13-2024 End: 06-13-2024 Bamboo flowsheet Eusebio Carole DO Work Phone: [facility] Start: 06-13-2024 End: 06-13-2024 Bamboo flowsheet Euseibo Carole DO Work Phone: [facility] Start: 06-13-2024 End: 06-13-2024 Office outpatient visit 15 minutes Eusebio Carole DO Work Phone: [facility] Comment on above: Second trimester pre gnancy; 25 weeks gestation of ; H/O delivery, currently ; Vapes nicotine containing substance Start: 06-13-2024 End: 06-13-2024 ambulatory EUSEBIO CAROLE Not Available Start: 05-24-2024 End: 05-24-2024 ambulatory EUSEBIO R CAROLE [facility] Start: 05-16-2024 End: 05-16-2024 Bamboo flowsheet Eusebio Carole DO Work Phone: [facility] Start: 05-16-2024 End: 05-19-2024 Bamboo flowsheet Eusebio Carole DO Work Phone: [facility] Start: 05-16-2024 End: 05-19-2024 Clinisync Result Encounter Eusebio Carole DO Work Phone: [facility] External Department Unsolicited Start: 05-16-2024 End: 05-17-2024 External Result Encounter Eusebio Carole DO Work Phone: [facility] External Department Unsolicited Start: 05-16-2024 End: 05-16-2024 Patient encounter procedure Eusebio Carole DO Work Phone: [facility] Healthcare Start: 05-16-2024 End: 05-16-2024 Periodic [...] 04-17-2024 Office outpatient visit 15 minutes Radha Avila [...] [facility] Start: 03-22-2024 End: 03-22-2024 ambulatory ARDHA AVILA Not Available Start: 03-22-2024 End: 03-22-2024 [...] Unsolicited Start: 02-11-2024 End: 02-11-2024 ambulatory STUART CARDOSO [facility] Start: 02-11-2024 End: 02-11-2024 ambulatory SHANNAN Janis ROJO [facility] Start: 01-26-2024 End: 01-26-2024 ambulatory SHANNAN ESPINOZA [facility] Start: 01-19-2024 End: 01-19-2024 ambulatory ANN-MARIE ASH [facility] Start: 01-18-2024 End: 01-18-2024 [facility] Start: 01-11-2024 End: 01-11-2024 Emergency department patient visit ANN-MARIE ASH MD Facility:[facility] Start: 11-03-2023 End: 11-03-2023 Bamboo flowsheet Eusebio [...] on above: Follow-up encounter involving medication; depression ([facility]); Weight loss Start: 09-01-2023 ambulatory [place] Start: 03-22-2023 End: 03-22-2023 Emergency department patient visit ANN-MARIE ASH [facility] Start: 03-09-2023 End: 03-09-2023 Office outpatient [...] Facility:[facility] Start: 01-04-2022 End: 01-04-2022 ambulatory RADHA FARIHA Facility:[facility] Start: 12-25-2021 End: 12-26-[address] [...] 06-01-2019 Emergency department patient visit ANN-MARIE ASH [facility] Start: 06-01-2019 End: 06-01-2019 Emergency department patient visit Victorino Sullivan Work Phone: [facility] Comment on above: Sprain of right ankl e, unspecified ligament, initial encounter (Primary Dx); Contusion of back wall of thorax, unspecified laterality, initial encounter Start: 05-25-2019 End: 05-25-2019 Emergency department patient visit ANN-MARIE ASH [facility] Start: 05-24-2019 End: 05-25-2019 Emergency department patient visit Aelxandria Siddiqui Work Phone: [facility] Comment on above: Sprain of right ankl e, unspecified ligament, initial encounter (Primary Dx) Start: 05-15-2019 End: 05-16-2019 Patient encounter procedure TRUDY VILLEGAS [facility] Start: 05-15-2019 End: 05-15-2019 Subsequent hospital visit by physician Ann-Marie HARRELL [facility] Comment on above: Amenorrhea Start: 03-12-2019 End: 03-12-2019 Emergency department patient visit ANN-MARIE Dc [facility] Start: 01-07-2019 End: 01-08-2019 Emergency department patient visit ANN-MARIE Dc [facility] Start: 01-07-2019 End: 01-08-2019 Emergency department patient visit Ann-Marie Engle Work Phone: [facility] Comment on above: Dyspepsia (Primary D x); Atypical chest pain Start: 2018 End: 2018 Emergency department patient visit ANN-MARIE Dc [facility] Start: 2018 End: 2018 Emergency department patient visit Kosta Lozano Work Phone: [facility] Comment on above: examinatio n or test, negative result (Primary Dx) Start: 09-12-2018 End: 09-12-2018 Emergency department patient visit [facility] Procedures Date Procedure Procedure Detail Performing Clinician Start: 08-17-2024 US OB BPP W NON-STRESS Eusebio Carole DO Work Phone: Start: 08-17-2024 Urnls dip stick/tabl et rgnt non-auto w/o micrscp Eusebio Carole DO Work Phone: Start: 08-09-2024 US OB BPP W NON-STRESS [...] stick/tabl et rgnt auto w/o microscopy ANN-MARIE SLAUGHTEREAN Start: 2018 Urine test visual color cmprsn meths Ellen Gott Work Phone: Start: 2018 Urnls dip stick/tabl et rgnt auto w/o microscopy Ellencielo Alas Work Phone: Start: 09-12-2018 AIR CAST ANN-MARIE BAJWA Start: 09-12-2018 CRUTCHES ANN-MARIE BAJWA Start: 09-12-2018 Radex ankle complete minimum 3 views ANN-MARIE MIHIR Plan of Treatment Date Care Activity Detail Author Start: 08-23-2024 End: 08-23-2024 Patient encounter procedure 08/23/2024 1:00 PM EDT Routine [facility] [place] [address] [place] [phone] Eusebio Lam, DO [address] [place] [address] [facility] Start: 08-17-2024 End: 08-17-2024 Patient encounter procedure [facility] Comment on above: Arrived Start: 08-09-2024 End: 08-09-2024 Patient encounter procedure [facility] Comment on above: Arrived Start: 07-26-2024 End: 07-26-2024 Patient encounter procedure 07/26/2024 11:10 AM EDT Routine [facility] [place] [address] [place] [phone] Eusebio Lam, DO [address], [place] [id number] [facility] Start: 07-13-2024 End: 01-12-2025 [...] Procedure [facility] [place] [address] [place] [id number] [facility] Start: 06-28-2024 End: 06-28-2024 Patient encounter procedure 06/28/2024 10:10 AM EDT Routine [facility] [place] [address] [place] [address] Radha Avila PA [address] [place] [address] [facility] Start: 06-28-2024 End: 06-28-2024 Professional / ancillary services management 06/28/2024 9:30 AM EDT Ancillary Procedure [facility] [address] [place] [phone] [facility] Start: 06-13-2024 End: 06-13-2024 Patient encounter procedure [facility] Comment on above: Arrived Start: 05-16-2024 End: 05-16-2025 CBC panel - Blood by Automated count CBC Lab Routine Diabetes mellitus screening Expected: 05/16/2024 (Approximate), Expires: 05/16/2025 [facility] Work Phone: Comment on above: Expected: 05/16/2024 (Approximate), Expires: 05/16/2025 Start: 05-16-2024 End: 05-16-2025 Measurement of glucose 1 hour after glucose challenge for glucose tolerance test Glucose tolerance, 1 hour Lab Routine Diabetes mellitus screening Expected: 05/16/2024 (Approximate), Expires: 05/16/2025 [facility] Comment on above: Expected: 05/16/2024 (Approximate), Expires: 05/16/2025 Start: 05-16-2024 End: 05-16-2024 Patient encounter procedure [facility] Comment on above: Arrived Start: 05-08-2024 End: 05-08-2024 Professional / ancillary services management 05/08/2024 9:30 AM EDT Ancillary Procedure [facility] [address] [place] [phone] [facility] Start: 04-17-2024 End: 04-17-2025 Alpha fetoprotein, maternal Alpha fetoprotein, maternal Lab Routine 17 weeks gestation of Second trimester Screening, , for anatomic survey Expected: 04/17/2024 (Approximate), Expires: 04/17/2025 [facility] Work Phone: Comment on above: Expected: 04/17/2024 (Approximate), Expires: 04/17/2025 Start: 04-17-2024 End: 04-17-2025 US for US OB 14+ weeks anatomy scan Imaging Routine Screening, , for anatomic survey Expected: 04/17/2024, Expires: 04/17/2025 [facility] Comment on above: Expected: 04/17/2024 , Expires: 04/17/2025 Start: 04-17-2024 End: 04-17-2024 Patient encounter procedure 04/17/2024 1:10 PM EDT Routine [facility] [place] [address] [place] [phone] Radha Avila PA [address] [facility] [address] [place], [place] [phone] [facility] Start: 03-13-2024 End: 03-13-2024 ambulatory 03/13/2024 8:40 AM EST Initial [facility] [address] [place] [phone] Eusebio Lam, DO [address] [facility] [address] [place], [id number] Start: 01-20-2024 End: 01-20-2024 Patient encounter procedure 01/20/2024 11:20 AM EST Office Visit [facility] [address] [place] [address] Eusebio Lam, DO [address] [facility] [address] [place], [place] [id number] [facility] Start: 08-31-2023 DTaP/Tdap/Td vaccine (5 - Td) DTaP/Tdap/Td vaccine (5 - Td) [place] Start: 10-10-2019 Influenza vaccination Flu vacc ine (Season Ended) [place] Start: 12-02-2018 DTaP/Tdap/Td vaccine (1 - Tdap) DTaP/Tdap/Td vaccine (1 - Tdap) [place] Start: 10-09-2018 Influenza vaccination Flu vaccine (# 1) [place] Start: 08-04-2016 Chlamydia screen Chlamydia screen [place], [place] Start: 08-04-2016 Screening for Chlamy penelope trachomatis Chlamydia screen [place] Start: 12-02-2014 HIV screen HIV screen [place], [place] Start: 12-02-2014 HIV screening HIV screen [facility] [place] Start: 12-02-2014 HPV vaccine (1 - Fem joselyn 3-dose series) HPV vaccine (1 - Female 3-dose series) [place] Start: 12-02-2012 Varicella Vaccine (1 of 2 - 13+ 2-dose series) Varicella Vaccine (1 of 2 - 13+ 2-dose series) [place] Start: 12-02-2010 DTaP/Tdap/Td vaccine (1 - Tdap) DTaP/Tdap/Td vaccine (1 - Tdap) [place] Start: 12-02-2010 HPV vaccine (1 - Fem joselyn 2-dose series) HPV vaccine (1 - Female 2-dose series) [place] Start: 12-02-2005 Pneumococcal 0-64 ye ars Vaccine (1 of 1 - PPSV23) Pneumococcal 0-64 years Vaccine (1 of 1 - PPSV23) [place] Start: 2003 Varicella vaccine (2 of 2 - 2-dose childhood series) Varicella vaccine (2 of 2 - 2-dose childhood series) [place] Start: 12-02-2000 Varicella Vaccine (1 of 2 - 2-dose childhood series) Varicella Vaccine (1 of 2 - 2-dose childhood series) [place] CBC W Auto Different ial panel - Blood CBC and differential Lab Routine Weight loss Ordered: 11/03/2023 [facility] Work Phone: Comment on above: Ordered: 11/03/2023 CBC W Auto Different ial panel - Blood CBC and differential Lab Routine Third trimester Ordered: 07/13/2024 [facility] Comment on above: Ordered: 07/13/2024 CHLAMYDIA TRACHOMATI S (GENITO/STI) CHLAMYDIA TRACHOMATIS (GENITO/STI) Lab Routine Exposure to STD Ordered: 05/16/2024 [facility] Comment on above: Ordered: 05/16/2024 Cytology Cervical or vaginal smear or scraping study Pap Smear Pathology and Cytology Routine Well woman exam with routine gynecological exam Ordered: 05/16/2024 [facility] Comment on above: Ordered: 05/16/2024 Hemoglobin A1c/Hemoglobin.total in Blood Hemoglobin A1c Lab Routine Weight loss Ordered: 11/03/2023 [facility] Comment on above: Ordered: 11/03/2023 Hemoglobin A1c/Hemoglobin.total in Blood Hemoglobin A1c Lab Routine Third trimester Ordered: 07/13/2024 [facility] Work Phone: Comment on above: Ordered: 07/13/2024 Neisseria gonorrhoea e DNA [Presence] in Unspecified specimen by STEFANIE with probe detection Neisseria gonorrhea DNA probe, direct Lab Routine Exposure to STD Ordered: 05/16/2024 [facility] Comment on above: Ordered: 05/16/2024 SURESWAB(R) ADVANCED VAGINITIS PLUS, TMA SURESWAB(R) ADVANCED VAGINITIS PLUS, TMA Pathology and Cytology Routine Vaginal discharge Ordered: 05/16/2024 [facility] Comment on above: Ordered: 05/16/2024 Thyrotropin [Units/volume] in Serum or Plasma TSH Lab Routine Weight loss Ordered: 11/03/2023 [facility] Comment on above: Ordered: 11/03/2023 Thyroxine (T4) free [Mass/volume] in Serum or Plasma T4, free Lab Routine Weight loss Ordered: 11/03/2023 [facility] Comment on above: Ordered: 11/03/2023 End: 12-14-2024 US for US OB follow up transabdominal approach Imaging Routine H/O delivery, currently 4 Occurrences starting 06/13/2024 until 12/14/2024 [facility] Work Phone: Comment on above: 4 Occurrences starti ng 06/13/2024 until 12/14/2024 Payers Date Payer Category Payer Unknown UNKNOWN 2022 Medicaid [id number] 2022 Medicaid [id number] 2018 Unknown [id number] 2018 Unknown [employer] xxxxxxxxxxx 2018-Present [phone] [address] [place] [address] xxxxxxxxxxx [id number]. [id number] 1999 Unknown [id number] 2.16.840.1.567486.3.579.2.176 1999 Unknown [id number] 2.16.840.1.858060.3.579.2.176 1999 Unknown [id number] 2.16.840.1.481816.3.579.2.176 1999 Unknown [id number] 2.16.840.1.779017.3.579.2.176 1999 Unknown [id number] 2.16.840.1.373088.3.579.2.175 1999 Unknown [id number] 2.16.840.1.217920.3.579.2.175 1999 Unknown [id number] 2.16.840.1.906843.3.579.2.175 1999 Unknown [id number] 2.16.840.1.547461.3.579.2.593 1999 Unknown [id number] 2.16.840.1.395175.3.579.2.593 1999 Unknown [id number] 2.16.840.1.032984.3.579.2.593 1999 Unknown [id number] 2.16.840.1.549939.3.579.2.593 1999 Unknown [id number] 2.16.840.1.853014.3.579.2.593 1999 Unknown [id number] 2.16.840.1.026305.3.579.2.593 1999 Unknown [id number] 2.16.840.1.687205.3.579.2.593 1999 Unknown [id number] 2.16.840.1.579113.3.579.2.593 1999 Unknown [id number] 2.16.840.1.094972.3.579.2.593 1999 Unknown [id number] 2.16.840.1.524228.3.579.2.593 1999 Unknown [id number] 2.16.840.1.003305.3.579.2.593 1999 Unknown [id number] 2.16.840.1.544409.3.579.2.593 1999 Unknown [id number] 2.16.840.1.865561.3.579.2.593 1999 Unknown [id number] 2.16.840.1.966528.3.579.2.718 1999 Unknown [id number] 2.16.840.1.267712.3.579.2.1286 1999 Unknown [id number] 2.16.840.1.121245.3.579.2.1286 1999 Unknown [id number] 2.16.840.1.037263.3.579.2.1286 1999 Unknown [id number] 2.16.840.1.587826.3.579.2.1286 1999 Unknown [id number] 2.16.840.1.333912.3.579.2.1286 1999 Unknown [id number] 2.16.840.1.130134.3.579.2.1286 1999 Unknown [id number] 2.16.840.1.066602.3.579.2.1286 1999 Unknown [id number] 2.16.840.1.424244.3.579.2.1286 1999 Unknown [id number] 2.16.840.1.607401.3.579.2.1259 1999 Unknown [id number] 2.16.840.1.411074.3.579.2.1259 1999 Unknown [id number] 2.16.840.1.278940.3.579.2.1259 1999 Unknown [id number] 2.16.840.1.930073.3.579.2.1259 1999 Unknown [id number] 2.16.840.1.393517.3.579.2.1259 1999 Unknown [id number] 2.16.840.1.040771.3.579.2.1259 1999 Unknown [id number] 2.16.840.1.860168.3.579.2.1259 1999 Unknown [id number] 2.16.840.1.262889.3.579.2.1259 1999 Unknown [id number] 2.16.840.1.591352.3.579.2.1259 1999 Unknown [id number] 2.16.840.1.185128.3.579.2.1259 1999 Unknown [id number] 2.16.840.1.650524.3.579.2.1259 1959 Self-pay 1959 Unknown [id number] 1959 Unknown [id number] Unknown [id number] 2.16.840.1.369408.3.579.2.593 Social History Date Type Detail Facility Start: 06-01-2019 End: 08-05-2022 Tobacco smoking status NHIS Current every day smoker [facility] Start: 06-01-2019 End: 11-03-2023 Cigarettes smoked current (pack per day) - Reported [place] Start: 01-07-2019 End: 06-01-2019 Alcohol intake Current non-drinker of alcohol (finding) [place] Start: 03-03-2011 Tobacco Comment Mother smokes [place] Start: 1999 Sex Assigned At Not on file [place], [place] Exposure to SARS-CoV -2 (event) Unable to assess [place] Start: 2018 End: 11-03-2023 Alcohol intake No [place] History of tobacco use Cigarette Smoker [facility] Start: 03-09-2023 End: 05-16-2024 Alcohol intake Current drinker of alcohol (finding) [facility] Start: 08-05-2022 Tobacco Comment <1PPPD [facility] Start: 08-05-2022 Alcohol Comment heavy alcohol use [facility] Start: 12-29-2023 [facility] Rony fine Clinical Notes 03-09-2023 to 08-17-2024 Sunshine Ye, BERT - 08/17/2024 10:00 AM EDJermain Diego, CAN SORTER - 08/09/2024 8:30 AM Eloise Diego, ANI - 07/26/2024 11:10 AM Javier Ye, BERT - 07/13/2024 10:30 AM EDT Note Date & Type Note Facility 08-17-2024 History of Presen t illness Narrative Reason [...] day smoker Heartburn History of miscarriage, currently ([facility]) HISTORY PAST MEDICAL HISTORY SOCIAL HISTORY Past Medical History: Diagnosis Date Carrier of spinal muscular atrophy Current every day smoker Heartburn History of miscarriage, currently ([facility]) Social History Tobacco Use Smoking status: [...] nursing note reviewed. Exam conducted with a driller portable present. Vitals: Estimated body mass index is 28.7 kg/m as calculated from the following: Height as of 03/12/22: 5' 3 . Weight as of this encounter: 162 lb. BP: 108/60 No LMP recorded. Patient is . ASSESSMENT & PLAN ICD-10-CM 1. Third trimester ([facility]) Z34.93 POCT urinalysis dipstick manually resulted 2. 35 weeks gestation of ([facility]) Z3A.35 POCT urinalysis dipstick manually resulted Patient presents today for a routine obstetrics appointment. Patient is currently 35w0d with a Estimated Date of Delivery: 09/21/24. Pelvic exam performed and patient is dilated to 1cm. Patient to RTC in 1 week. Documented by Sunshine Ye LPN on behalf of: Eusebio Lam DO documented in this encounter [facility] 08-09-2024 History of Presen t illness Narrative [...] day smoker Heartburn History of miscarriage, currently ([facility]) HISTORY PAST MEDICAL HISTORY SOCIAL HISTORY Past Medical History: Diagnosis Date Carrier of spinal muscular atrophy Current every day smoker Heartburn History of miscarriage, currently ([facility]) Social History Tobacco Use Smoking status: Every [...] nursing note reviewed. Exam conducted with a driller portable present. Vitals: Estimated body mass index is 29.01 kg/m as calculated from the following: Height as of 23: 5' 3 . Weight as of this encounter: 163 lb 12 oz. BP: 110/58 No LMP recorded. Patient is . ASSESSMENT & PLAN ICD-10-CM 1. Third trimester ([facility]) Z34.93 POCT urinalysis dipstick manually resulted 2. 33 weeks gestation of ([facility]) Z3A.33 Return OB: Patient presents today for [...] Radha Diego NP documented in this encounter [facility] 07-26-2024 History of Presen t illness Narrative [...] day smoker Heartburn History of miscarriage, currently ([facility]) HISTORY PAST MEDICAL HISTORY SOCIAL HISTORY Past Medical History: Diagnosis Date Carrier of spinal muscular atrophy Current every day smoker Heartburn History of miscarriage, currently ([facility]) Social History Tobacco Use Smoking status: [...] nursing note reviewed. Exam conducted with a driller portable present. Vitals: Estimated body mass index is 28.61 kg/m as calculated from the following: Height as of 23: 5' 3 . Weight as of this encounter: 161 lb 8 oz. BP: 102/62 No LMP recorded. Patient is . ASSESSMENT & PLAN ICD-10-CM 1. Third trimester ([facility]) Z34.93 POCT urinalysis dipstick manually resulted 2. 31 weeks gestation of ([facility]) Z3A.31 Return OB: Patient presents today for [...] Eusebio Lam DO documented in this encounter [facility] 07-13-2024 History of Presen t illness Narrative [...] nursing note reviewed. Exam conducted with a driller portable present. Vitals: Estimated body mass index is 27.81 kg/m as calculated from the following: Height as of 2/2/23: 5' 3 . Weight as of this [...] Eusebio Lam DO documented in this encounter [facility] 06-28-2024 History of Presen t illness Narrative [...] of: JOSE Vanessa documented in this encounter [facility] 06-13-2024 History of Presen t illness Narrative [...] nursing note reviewed. Exam conducted with a driller portable present. Vitals: Estimated body mass index is [...] Eusebio Lam DO documented in this encounter [facility] 05-16-2024 History of Presen t illness Narrative [...] nursing note reviewed. Exam conducted with a driller portable present. Vitals: Estimated body mass index is [...] obtained without difficulty and patient will see [facility] next Wednesday. Orders Placed This Encounter Procedures CBC Glucose tolerance, 1 hour CHLAMYDIA TRACHOMATIS (GENITO/STI) Neisseria gonorrhea DNA probe, direct POCT urinalysis dipstick manually resulted Follow Up: Patient is to return to our office in 4 weeks for routine OB appointment Documented by Jing Moncada LPN on behalf of: Eusebio Lam DO documented in this encounter [facility] 04-17-2024 History of Presen t illness Narrative [...] dipstick manually resulted Patient being referred to [facility], states she went into labor at 35 weeks previously. Follow Up: Patient is to return to office in 4 week for routine OB appointment. Documented by JOSE Vanessa on behalf of: JOSE Vanessa documented in this encounter [facility] 03-22-2024 History of Presen t illness Narrative [...] or undercooked meat, and stay away from [facility]. Patient has been consulted regarding any further do's and don'ts of . Patient voiced understanding and all questions and concerns were answered. No orders of the defined types were placed in this encounter. Follow Up: Patient is to return in 4 weeks for routine OB appointment. Documented by Jing Moncada LPN on behalf of: JOSE Vanessa documented in this encounter [facility] 01-11-2024 Note Education Materials Obstetrics and Gynecology Bacterial Vaginosis Take the antibiotic as prescribed. Follow-up with your LORRY WEIGHER to review this emergency department visit. Return [...] these instructions at home: Medicines ? Take ujri-rpz-qhlrgbl and prescription medicines as told by your [...] for Disease Control and Prevention: www.cdc.gov ? [employer]: www.ashastd.org ? Office on [...] provider. Document Revised: 07/25/2020 Document Reviewed: 07/25/2020 Movable Patient Education ? 2023 [employer] 11-03-2023 History of Presen t illness Narrative [...] nursing note reviewed. Exam conducted with a driller portable present. Vitals: Estimated body mass index is [...] Eusebio Lam DO documented in this encounter [facility] 03-09-2023 History of Presen t illness Narrative [...] nursing note reviewed. Exam conducted with a driller portable present. Vitals: Estimated body mass index is [...] note* Diagnosis Follow-up encounter involving medication depression ([facility]) Mental disorders of mother, complicating , childbirth, [...] note* Diagnosis Third trimester ([facility]) state, incidental 35 [...] Documents on File Type Date Recorded Patient Maintenance Repairman Expl anation Advance Directives and Living Will Power of Operator/Assistant Foreman Discharge Instructions * Instructions* Victorino Sullivan MD [...] fracture for several days THANK YOU!!! From [facility] and [facility] On behalf of the Emergency Department staff at [facility], I would like to thank you for giving us the opportunity to address your health care needs and concerns. We hope that during your visit, our service was delivered in a professional and caring manner. Please keep [facility] in mind as we walk with [...] how we did during your visit at [email or web address] and let us know about your experience * Attachments The following attachments cannot be sent through Care Everywhere. * Ankle Sprain (Ivorian) documented in this encounter* Attachments The following attachments cannot be sent through Care Everywhere. * Ankle Sprain (Ivorian) documented in this encounter* Instructions* Ann-Marie Engle, [...] be sent through Care Everywhere. * Dyspepsia (Ivorian) * Chest Pain (Ivorian) documented in this encounter* Attachments The following attachments cannot be sent through Care Everywhere. * Amenorrhea: Secondary (Ivorian) documented in this encounter Assessments Diagnosis Sprain [...] and content) DATE CREATED AUTHOR 03/12/2019 [facility] DATE CREATED AUTHOR AUTHOR'S ORGANIZ ATION 06/01/2019 [facility] DATE CREATED AUTHOR AUTHOR'S ORGANIZ ATION 07/17/[address] [facility] DATE CREATED AUTHOR AUTHOR'S ORGANIZ ATION 01/06/2024 [facility] DATE CREATED AUTHOR AUTHOR'S ORGANIZ ATION 01/13/2024 [facility] DATE CREATED AUTHOR AUTHOR'S ORGANIZ ATION 02/18/2024 [facility] DATE CREATED AUTHOR AUTHOR'S ORGANIZ ATION 02/18/2024 [facility] DATE CREATED AUTHOR AUTHOR'S ORGANIZ ATION 05/26/2024 [facility] DATE CREATED AUTHOR AUTHOR'S ORGANIZ ATION 08/11/2024 [facility] dical Specialists EPIC Reason for Visit (unrecogniz [...] Care Teams (unrecognized sec tion and content) Intelligence Officer Basic Relationship Specialty Start Date End Date Ann-Marie Ash MD [address] [place] [address] PCP - General Family Medicine 07/03/22 Intelligence Officer Basic Relationship Specialty Start Date End Date Ann-Marie Ash MD [address] [place] [address] PCP - General Family Medicine 07/03/22 Intelligence Officer Basic Relationship Specialty Start Date End Date Ann-Marie Ash MD [address] [place] [address] PCP - General Family Medicine 07/03/22 Intelligence Officer Basic Relationship Specialty Start Date End Date Ann-Marie Ash MD [address] [place] [phone] PCP - General Family Medicine 07/03/22 Intelligence Officer Basic Relationship Specialty Start Date End Date Ann-Marie Ash MD [address] [place] [id number] PCP - General Family Medicine 07/03/22 Intelligence Officer Basic Relationship Specialty Start Date End Date Ann-Marie Ash MD [address] [place] [address] PCP - General Family Medicine 07/03/22 Intelligence Officer Basic Relationship Specialty Start Date End Date Ann-Marie Ash MD [address] [place] [address] PCP - General Family Medicine 07/03/22 Intelligence Officer Basic Relationship Specialty Start Date End Date Ann-Marie Ash MD [address] [place] [phone] PCP - General Family Medicine 07/03/22 Intelligence Officer Basic Relationship Specialty Start Date End Date Ann-Marie Ash MD [address] [place] [phone] PCP - General Family Medicine 07/03/22 Intelligence Officer Basic Relationship Specialty Start Date End Date Ann-Marie Ash MD [address] [place] [phone] PCP - General Family Medicine 07/03/22 Intelligence Officer Basic Relationship Specialty Start Date End Date Ann-Marie Ash MD [address] [place] [phone] PCP - General Family Medicine 07/03/22 Intelligence Officer Basic Relationship Specialty Start Date End Date Ann-Marie Ash MD [address] [place] [phone] PCP - General Family Medicine 07/03/22 Intelligence Officer Basic Relationship Specialty Start Date End Date Ann-Marie Ash MD [address] [place] [address] 13774 PCP - General Family Medicine 07/03/22 FOR [...] BE BASED ON THE PRIMARY CLINICAL RECORDS. [facility]. provides no warranty or guarantee of the accuracy or completeness of information in this document.
[2024-08-20 17:45] VITALS: BP 114/65; PULSE 105
== END 2024-08-20 18:07 | disposition home or self-care (01) ==
LOC: FBCO 17:38 → FBC 17:40
PROVIDERS: Visit Provider Obstetrics & Gynecology
DX: O26.893 Other specified pregnancy related conditions, third trimester (principal)
CPT/HCPCS: 59025

== ENCOUNTER 2024-08-22 09:22 | Observation (INO) | payer MEDICAID, SELFPAY ==
[2024-08-22 09:37] VITALS: BP 116/59; PULSE 96
[2024-08-22 09:41] VITALS: TEMP 36.1
[2024-08-22 09:56] LABS: Glucose Urine UA 100 mg/dL (NEGATIVE)
[2024-08-22 10:24] LABS: Cast Seen? NONE SEEN #/LPF (NONE SEEN); Crystals Seen? None Seen #/HPF (None Seen); Urine Culture Indicated YES-FRMC
== END 2024-08-22 13:00 | disposition home or self-care (01) ==
PROVIDERS: Admitting Provider Obstetrics & Gynecology; Visit Provider Obstetrics & Gynecology
DX: O47.03 False labor before 37 completed weeks of gestation, third trimester (principal); Z3A.35 35 weeks gestation of pregnancy
CPT/HCPCS: 59025; 81001; 87086; G0378; G0379

== ENCOUNTER 2024-08-23 15:00 | Outpatient (REF) | payer MEDICAID, SELFPAY ==
--- OUTSIDE RECORDS SUMMARY | 2023-11-15 13:15 | XMS_ITS ---
Author Organization [facility] vices Address [address] [place] [id number] Care Team Providers Care Hydro Sprayer Operator Name Role Phone Chris Rodriguez Unavailable [phone] REASON FOR VISIT (QUALITY CONTROL INSPECTOR) Initial Evaluation- Bipolar, Anxiety, and Depression Social History Sex Assigned At : Social History Observation Description Sex Assigned At Female Encounters Encounter Location Date Provider Diagnosis Main [address] [place] [id number] 11/15/2023 Chris Rodriguez Plan Of Treatment No Information Progress Notes * Jeremy KINGEmilyOB:2000 (23 yo F)Acc No.[id number]:11/15/2023 Patient: Hawk CHAMPION Provider: NORMAN Gonzalez :2000 A ge:22 Y S ex:Female Date:11/15/2023 Address:[address], [id number] Subjective: * Chief Complaints: * 1 . (QUALITY CONTROL INSPECTOR) Initial Evaluation- Bipolar, Anxiety, and Depression. * Medical History: Objective: * Vitals: Assessment: Plan: * Treatment: Care Plan: * Problems: * Billing Information: * Visit Code: * Procedure Codes: Care Plan Details* * Electronic signature of NORMAN Escobedo on 08/23/2024 at 03:04 PM EDT Sign off status: Pending * Provider: NORMAN Gonzalez Date: 1 Generated for Nikunj zheng/ePace/eTransmitting on: 0 08/23/2024 03:04 PM EDT
--- OUTSIDE RECORDS SUMMARY | 2024-08-09 08:30 | XMS_ITS | Encounter Summary ---
Author Organization [facility] Address [address] [place] [address] Care Team Providers Care Turf Grower Name Role Phone Orlando Ash MD Primary Care Provider Reason for Visit * Reason Comments Routine Visit Encounter Details Date Type Department Care Team (Late st Contact Info) Description 08/09/2024 8:30 AM EDT Routine [facility] BCP OB [address] [place] [address] Megan Diego, HYDROGEN POWER PLANT ENGINEER [address] [facility] [place] [address] Third trimester ([facility]); 33 weeks gestation of ([facility]) Social History Tobacco Use Types Packs/Day Years [...] this encounter Progress Notes * Megan Diego, HYDROGEN POWER PLANT ENGINEER - 08/09/2024 8:30 AM EDT Reason for [...] day smoker Heartburn History of miscarriage, currently ([facility]) HISTORY PAST MEDICAL HISTORY SOCIAL HISTORY Past Medical History: Diagnosis Date Carrier of spinal muscular atrophy Current every day smoker Heartburn History of miscarriage, currently ([facility]) Social History Tobacco Use Smoking status: Every [...] nursing note reviewed. Exam conducted with a information specialist present. Vitals: Estimated body mass index is 29.01 kg/m?? as calculated from the following: Height as of 03/12/22: 5' 3 . Weight as of this encounter: 163 lb 12 oz. BP: 110/58 No LMP recorded. Patient is . ASSESSMENT & PLAN ICD-10-CM 1. Third trimester ([facility]) Z34.93 POCT urinalysis dipstick manually resulted 2. 33 weeks gestation of ([facility]) Z3A.33 Return OB: Patient presents today for [...] AM EDT Routine [facility] BCP OB [address] [facility] [place] [address] Eusebio Lam, [address] [place] [address] documented as of this encounter Procedures Procedure [...] this encounter Visit Diagnoses Diagnosis Third trimester ([facility]) state, incidental 33 weeks gestation of ([facility]) documented in this encounter Care Teams Turf Grower Relationship Specialty Start Date End Date Orlando Ash MD [address] [place] [address] PCP - General Family Medicine 07/03/22 documented as of this encounter
--- OUTSIDE RECORDS SUMMARY | 2024-08-17 10:00 | XMS_ITS | Encounter Summary ---
Author Organization [facility] Address [address] [place] [address] Care Team Providers Care Book Packer Name Role Phone Orlando Ash MD Primary Care Provider [phone] Reason for Visit * Reason Comments Routine Visit Encounter Details Date Type Department Care Team (Late st Contact Info) Description 08/17/2024 10:00 AM EDT Routine [facility] OB [address] [place] [phone] Eusebio Lam, DO [address] [facility] [place] [address] Third trimester ([facility]); 35 weeks gestation of ([facility]) Social History Tobacco Use Types Packs/Day [...] this encounter Progress Notes * Sunshine Ye, BUSINESS PROCESS CONSULTANT - 08/17/2024 10:00 AM EDT Reason for [...] day smoker Heartburn History of miscarriage, currently ([facility]) HISTORY PAST MEDICAL HISTORY SOCIAL HISTORY Past Medical History: Diagnosis Date Carrier of spinal muscular atrophy Current every day smoker Heartburn History of miscarriage, currently ([facility]) Social History Tobacco Use Smoking status: [...] nursing note reviewed. Exam conducted with a dog hair clipper present. Vitals: Estimated body mass index is 28.7 kg/m?? as calculated from the following: Height as of 03/12/22: 5' 3 . Weight as of this encounter: 162 lb. BP: 108/60 No LMP recorded. Patient is . ASSESSMENT & PLAN ICD-10-CM 1. Third trimester ([facility]) Z34.93 POCT urinalysis dipstick manually resulted 2. 35 weeks gestation of ([facility]) Z3A.35 POCT urinalysis dipstick manually resulted Patient [...] EDT Routine [facility] [address] [place] [address] Eusebio Lam DO [address] [facility] [address] [place], [place] [id number] documented as of this encounter Procedures Procedure Name Priority Date/Time Associated Diagnosis Comments POCT URINALYSIS DIPSTICK Routine 08/17/2024 10:08 AM EDT Third trimester ([facility]) 35 weeks gestation of ([facility]) documented in this encounter Results * (ABNORMAL) [...] this encounter Visit Diagnoses Diagnosis Third trimester ([facility]) state, incidental 35 weeks gestation of ([facility]) documented in this encounter Care Teams Book Packer Relationship Specialty Start Date End Date Orlando Ash MD [address] [place] [address] PCP - General Family Medicine 07/03/22 documented as of this encounter
--- OUTSIDE RECORDS SUMMARY | 2024-08-23 13:00 | XMS_ITS | Encounter Summary ---
Author Organization [facility] Address [address] [place] [address] Care Team Providers Care Auto Porter Name Role Phone Orlando Ash MD Primary Care Provider [phone] Reason for Visit * Reason Comments Routine Visit Encounter Details Date Type Department Care Team (Late st Contact Info) Description 08/23/2024 1:00 PM EDT Routine [facility] OB [address] [place] [address] Eusebio Lam, DO [address] [facility] [address] [place] [address] Third trimester ([facility]); 35 weeks gestation of ([facility]) Social History Tobacco Use Types Packs/Day Years [...] Sign Reading Time Taken Comments Blood Pressure 102/60 08/23/2024 1:19 PM EDT Pulse - - Temperature - - Respiratory Rate - - Oxygen Saturation - - Inhaled Oxygen Concentration - - Weight 76.7 kg (169 lb) 08/23/2024 1:19 PM EDT Height - - Body Mass Index 29.94 03/12/2022 12:00 PM EST documented in this encounter Progress Notes * Jing Moncada, WAREHOUSE LABORER - 08/23/2024 1:00 PM EDT Reason for Appointment: Patient ID: Hawk [...] of miscarriage, currently ([facility]) HISTORY PAST MEDICAL HISTORY SOCIAL HISTORY Past Medical History: Diagnosis Date Carrier of spinal muscular atrophy Current every day smoker Heartburn History of miscarriage, currently ([facility]) Social [...] nursing note reviewed. Exam conducted with a freight car inspector present. Vitals: Estimated body mass index is 29.94 kg/m?? as calculated from the following: Height as of 03/12/22: 5' 3 . Weight as of this encounter: 169 lb. BP: 102/60 No LMP recorded. Patient is . ASSESSMENT & PLAN ICD-10-CM 1. Third trimester ([facility]) Z34.93 CULTURE, GROUP B STREP WITH SUSCEPTIBLITY CULTURE, GROUP B STREP WITH SUSCEPTIBLITY 2. 35 weeks gestation of ([facility]) Z3A.35 Patient is doing well but has complaints of being tired and having maternal discomfort due to . Patient verbalized frequent movement and was instructed to perform kick counts three times per day. labor precautions were given, LARC consent was signed/declined, and GBS was obtained. Cervical check was performed and patient is 2 or 3cm dilated. Orders Placed This Encounter Procedures CULTURE, GROUP B STREP WITH SUSCEPTIBLITY Follow Up: Patient is to return to office in 1 week for routine OB appointment Documented by Jing Moncada LPN on behalf of: Eusebio Lam DO documented in this encounter Plan of Treatment Upcoming Encounters Date Type Department Care Team (Late st Contact Info) Description 08/30/2024 11:00 AM EDT Routine [facility] [address] [place] [address] Eusebio Lam DO [address] [place] [address] Scheduled Orders Name Type Priority Associated Diagnoses Orde r Schedule CULTURE, GROUP B STREP WITH SUSCEPTIBLITY Lab Routine Third trimester ([facility]) Expected: 08/23/2024, Expires: 08/23/2025 documented as of this encounter Visit Diagnoses Diagnosis Third trimester ([facility]) state, incidental 35 weeks gestation of ([facility]) documented in this encounter Care Teams Auto Porter Relationship Specialty Start Date End Date Orlando Ash MD [address] [place], [place] [id number] PCP - General Family Medicine 07/03/22 documented as of this encounter
--- OUTSIDE RECORDS SUMMARY | 2024-08-23 15:04 | XMS_ITS | Encounter Summary ---
Author Organization [employer] Address [id number] [address] [place] [address] Care Team Providers Care Customer Service Sales Associate Name Role Phone Orlando Ash MD Primary Care Provider [phone] Encounter Details Date Type Department Care Team (Late st Contact Info) Description 07/03/2021 [facility]phone [facility]Gyne[facility] [address] [place] [phone] Rachel Dan, [facility] Social History Tobacco Use Types Packs/Day Years [...] 8 weeks and mom is traveling to [place] and patient would like to ride along. Patient miscarried back in January and her mom wants to be sure its safe for pt to ride in a car to and from [place]. She doesn't want to cause any kind of demise to fetus. Pleaseadvise. Thanks! * Telephone Encounter - KRISTYN Mcdowell - 07/03/2021 11:30 AM EDT Patient may travel to [place]. She should make frequent stops to stretch [...] documented as of this encounter Care Teams Customer Service Sales Associate Relationship Specialty Start Date End Date Orlando Ash MD [address] [place] [address] PCP - General Family Medicine 06/09/18 documented as of this encounter
--- OUTSIDE RECORDS SUMMARY | 2024-08-23 15:04 | XMS_ITS | Encounter Summary ---
Author Organization [facility] tem Address [id number] [address] [place] [address] Care Team Providers Care News Gathering Technician Name Role Phone Orlando Ash MD Primary Care Provider [phone] Encounter Details Date Type Department Care Team (Late st Contact Info) Description 04/21/2024 Orders Only Maternal- Medicine at [facility] [address] [place] [address] Eusebio Lam R, DO [address] [facility] [place] [address] Social History Tobacco Use Types Packs/Day Years [...] documented as of this encounter Care Teams News Gathering Technician Relationship Specialty Start Date End Date Orlando Ash MD [address] [place] [address] PCP - General Family Medicine 06/09/18 documented as of this encounter
--- OUTSIDE RECORDS SUMMARY | 2024-08-23 15:04 | XMS_ITS | Encounter Summary ---
Author Organization [facility] Address [address] [facility] [place] [address] Care Team Providers Care Tool Hardener Name Role Phone Orlando Ash MD Primary Care Provider [phone] Encounter Details Date Type Department Care Team (Late st Contact Info) Description 05/25/2024 Orders Only [facility] OB [address] [facility] [place] [address] Carol Winter LPN [address] [place] [address] Social History Tobacco Use Types Packs/Day Years [...] Description 08/30/2024 11:00 AM EDT Routine [facility] OB [address] [place] [address] Eusebio Lam DO [address] [address] [place], [facility] documented as of this encounter Procedures [...] on filedocumented in this encounter Care Teams Tool Hardener Relationship Specialty Start Date End Date Orlando Ash MD [address] [place] [address] PCP - General Family Medicine 07/03/22 documented as of this encounter
--- OUTSIDE RECORDS SUMMARY | 2024-08-23 15:04 | XMS_ITS | Encounter Summary ---
Author Organization [facility] Address [address] [facility] [place] [address] Care Team Providers Care Middleware Solutions Architect Name Role Phone Orlando Ash MD Primary Care Provider [phone] Encounter Details Date Type Department Care Team (Late st Contact Info) Description 01/04/2023 Clinisync Result Encounter [facility] External Department Unsolicited Yuri Lam [facility] [place] [address] Social History Tobacco Use Types Packs/Day Years [...] Routine [facility] OB [address] [place] [address] Yuri Lam DO [facility] [place] [address] documented as of this encounter Procedures Procedure Name Priority Date/Time Associated Diagnosis Comments US OB GROWTH 01/04/2023 3:14 PM EST documented in this encounter Results * US OB GROWTH (01/04/2023 3:14 PM EST) Anatomical Region Laterality Modality Other 01/04/2023 3:14 PM EST Narrative 01/04/2023 3:14 PM EST [address] [address] Ultrasound Report Signed Patient: HAWK KING MR#: [id number] : 2000 Acct:[id number] Age/Sex: 22 / F ADM Date: 01/04/23 Loc: US Attending Dr: Yuri Lam D.O. Ordering Physician: Yuri Lam D.O. Date of Service: 01/04/23 Procedure(s): US OB growth Accession Number(s): [id number] cc: Yuri Lam D.O.; Physician,Non-Staff M.Sigrid The [place] [address] Patient Name: HAWK KING MRN: [id number] date: 2000 Sex: F Assigned Patient Location: Current Patient Location: [facility] Accession/Order Number: [id number] Exam Date: 01/04/2023 12:57 Report Date: 01/04/2023 [...] Signed By: 01/04/23 1516 DD/ 13 TD/TT: Optical Manufacturing Technician: Procedure Note Radiology, Radiologist, MD - 01/04/2023 [place] [address] Ultrasound Report Signed Patient: HAWK KING CMR#: [id number] : 2000Acct:[id number] Age/Sex: 22 / FADM Date: 01/04/23 Loc: US Attending Dr: Yuri Lam D.O. Ordering Physician: Yuri Lam D.O. Date of Service: 01/04/23 Procedure(s): US OB growth Accession Number(s): [id number] cc: Yuri Lam D.O.; Physician,Non-Staff Sindy The [place] [id number] Patient Name: HAWK KING MRN: [id number] date: 2000 Sex: F Assigned Patient Location: US Current Patient Location: [facility] Accession/Order Number: [id number] Exam Date: 01/04/2023 12:57 Report Date: 01/04/2023 [...] Mcwilliams M.D. Signed By:01/04/231515 DD/ 13 TD/TT: Optical Manufacturing Technician: us Yuri Carole DO [facility] Final Result documented in this encounter Visit Diagnoses Not on filedocumented in this encounter Care Teams Middleware Solutions Architect Relationship Specialty Start Date End Date Orlando Ash MD [address] [place] [address] PCP - General Family Medicine 07/03/22 documented as of this encounter
--- OUTSIDE RECORDS SUMMARY | 2024-08-23 15:04 | XMS_ITS | Encounter Summary ---
Author Organization [facility] Address [address] [facility] [place] [address] Care Team Providers Care Photoengraving Printer Name Role Phone Orlando Ash MD Primary Care Provider [phone] Encounter Details Date Type Department Care Team (Late Contact Info) Description 08/22/2024 Clinisync Result Encounter [facility] External Department Unsolicited Eusebio Lam, DO [address], [place] [address] Social History Tobacco Use Types Packs/Day Years [...] Routine [facility] OB [address] [place] [address] Eusebio Lam DO [address] [place] [address] documented as of this encounter Procedures Procedure Name Priority Date/Time Associated Diagnosis Comments TBH URINE MICROSCOPIC ONLY Routine 08/22/2024 9:32 AM EDT TBH UA (CLEAN/CATCH) YEAST DISTILLER/MICRO IF IND. Routine 08/22/2024 9:32 AM EDT documented in this encounter Results * (ABNORMAL) TBH URINE MICROSCOPIC ONLY (08/22/2024 9:32 AM EDT) TB WBC 2-5(A) NONE SEEN #/HPF TBH TBH RBC 0-2 0 - 2 #/HPF TBH BACTERIA URINE MODERATE(A ) NONE SEEN #/HPF TBH MUCUS URINE NONE SEEN NONE SEEN TBH SQUAMOUS EPITHELIAL CELL URINE MODERATE(A ) NONE/RARE #/LPF TBH CRYSTALS SEEN? None Seen None Seen #/HPF TBH CAST SEEN? NONE SEEN NONE SEEN #/LPF TBH URINE CULTURE INDICATED YES-[facility] 08/22/2024 9:32 AM EDT 08/22/2024 9:51 AM EDT Narrative [facility] - 08/22/2024 10:25 AM EDT us Eusebio Carole DO [facility] Final Result [facility] * (ABNORMAL) TBH UA (CLEAN/CATCH) YEAST DISTILLER/MICRO IF IND. (08/22/2024 9:32 AM EDT) COLOR URINE LT. YELLOW YELLOW TBH CLARITY URINE CLEAR CLEAR TBH SPECIFIC GRAVITY URINE 1.025 1.005 - 1.025 TBH PH URINE 6.0 5.0 - 9.0 TBH PROTEIN URINE TRACE NEG/TRACE mg/dL TBH GLUCOSE URINE UA 100(A) NEGATIVE mg/dL TBH BILIRUBIN URINE NEGATIVE NEGATIVE TBH KETONES URINE TRACE(A) NEGATIVE mg/dL TBH BLOOD URINE NEGATIVE NEGATIVE TBH NITRITE URINE NEGATIVE NEGATIVE TBH UROBILINOGEN URINE 0.2 0.2 - 1.0 EU/dL TBH LEUKOCYTE ESTERASE URINE SMALL(A) NEGATIVE TBH URINE MICROSCOPIC INDICATED YES TBH 08/22/2024 9:32 AM EDT 08/22/2024 9:51 AM EDT Narrative [facility] - 08/22/2024 10:25 AM EDT us Eusebio Lam DO [facility] Final Result [facility] documented in this encounter Visit Diagnoses Not on filedocumented in this encounter Care Teams Photoengraving Printer Relationship Specialty Start Date End Date Orlando Ash MD [address] [place] [address] PCP - General Family Medicine 07/03/22 documented as of this encounter
--- OUTSIDE RECORDS SUMMARY | 2024-08-23 15:04 | XMS_ITS | Encounter Summary ---
Author Organization [facility] Address [address] [facility] [place] [address] Care Team Providers Care Log Chain Worker Name Role Phone Orlando Ash MD Primary Care Provider [phone] Encounter Details Date Type Department Care Team (Late Contact Info) Description 03/16/2024 Abstract [facility] [address] [place] [phone] Eusebio Lam DO [facility] [place] [id number] Social History Tobacco Use Types Packs/Day Years [...] Department Care Team (Late Contact Info) Description 08/30/2024 11:00 AM EDT Routine [facility] [address] [place] [address] Eusebio Lam DO [facility] [place], [place] [address] documented as of this encounter Visit Diagnoses Not on filedocumented in this encounter Care Teams Log Chain Worker Relationship Specialty Start Date End Date Orlando Ash MD [address] [place] [address] PCP - General Family Medicine 07/03/22 documented as of this encounter
--- OUTSIDE RECORDS SUMMARY | 2024-08-23 15:04 | XMS_ITS | Encounter Summary ---
Author Organization [facility] Address [address] [place] [address] Care Team Providers Care Electronics Recycler Name Role Phone Orlando Ash MD Primary Care Provider [phone] Encounter Details Date Type Department Care Team (Late st Contact Info) Description 08/09/2024 Clinisync Result Encounter [facility] External Department Unsolicited Yuri Lam DO [address] [place], [place] [address] Social History Tobacco Use Types Packs/Day Years [...] [facility] [place] [address] [place] [address] Yuri Lam DO [address] [place] [address] documented as of this encounter Procedures Procedure Name Priority Date/Time Associated Diagnosis Comments US OB BPP W NON-STRESS 08/09/2024 1:42 PM EDT documented in this encounter Results * US OB BPP W NON-STRESS (08/09/2024 1:42 PM EDT) Anatomical Region Laterality Modality Other 08/09/2024 1:42 PM EDT Narrative 08/09/2024 1:45 [place] [address] Ultrasound Report Signed Patient: HAWK KING MR#: [id number] : 2000 Acct:[id number] Age/Sex: 23 / F ADM Date: 08/09/24 Loc: US Attending Dr: Yuri Lam D.O. Ordering Physician: Yuri Lam D.O. Date of Service: 08/09/24 Procedure(s): US OB BPP w non-stress Accession Number(s): [id number] cc: Yuri Lam D.O.; Physician,Non-Staff M.DTaylor The [place] [address] Patient Name: HAWK KING MRN: [id number] date: 2000 Sex: F Assigned Patient [facility]: [facility] Current Patient Location: Accession/Order Number: [id number] Exam Date: 08/09/2024 13:42 Report Date: 08/09/2024 13:42 At the request of: YURI LAM DO Procedure: US OB BPP w non-stress Biophysical profile. Reason for exam: Large for dates. COMPARISON: BPP 08/02/2024. TECHNIQUE: Transabdominal imaging of the gravid uterus was obtained. FINDINGS: Agricultural Commodities Grader reports a BPP of 8 out of 8. JACKELYN is normal at 17.9 cm. heart rate 167 bpm. US/US OB BPP w non-stress Impression: BPP 8 out of 8. Impression dictated by: Wojciech Farah Jr., D.O. 08/09/2024 1:42 PM Dictation Location: [place] [address] Electronically authenticated by: [id number] Y Date: 08/09/2024 13:42 Dictated By: Wojciech Farah M.D. Signed By: 08/09/24 1345 DD/ 134 TD/TT: Homebirth Midwife: Procedure Note Radiology, Radiologist, MD - 08/09/2024 [place] [address] Ultrasound Report Signed Patient: HAWK KING CMR#: [id number] : 2000Acct:[id number] Age/Sex: 23 / FADM Date: 08/09/24 Loc: US Attending Dr: Yuri Lam D.O. Ordering Physician: Yuri Lam D.O. Date of Service: 08/09/24 Procedure(s): US OB BPP w non-stress Accession Number(s): [id number] cc: Yuri Lam D.O.; Physician,Non-Staff Sindy The [place] [address] Patient Name: HAWK KING MRN: [id number] date: 2000 Sex: F Assigned Patient Location: [facility] Current Patient Location: Accession/Order Number: [id number] Exam Date: 08/09/2024 13:42 Report Date: 08/09/2024 13:42 At the request of: YURI LAM DO Procedure: US OB BPP w non-stress Biophysical profile. Reason for exam: Large for dates. COMPARISON: BPP 08/02/2024. TECHNIQUE: Transabdominal imaging of the gravid uterus was obtained. FINDINGS: Agricultural Commodities Grader reports a BPP of 8 out of 8. JACKELYN is normal at 17.9cm. heart rate 167 bpm. US/US OB BPP w non-stress Impression: BPP 8 out of 8. Impression dictated by: Wojciech Farah Jr., D.O. 08/09/2024 1:42 PM Dictation Location: [place] [address] Electronically authenticated by: [id number] Y Date: 3:42 Dictated By: Wojciech Farah M.D. Signed By:08/09/24 1345 DD/ 1342 TD/TT: Homebirth Midwife: us Yuri Carole DO [facility] Final Result documented in this encounter Visit Diagnoses Not on filedocumented in this encounter Care Teams Electronics Recycler Relationship Specialty Start Date End Date Orlando Ash MD [address] [place] [address] PCP - General Family Medicine 07/03/22 documented as of this encounter
--- OUTSIDE RECORDS SUMMARY | 2024-08-23 15:04 | XMS_ITS | Encounter Summary ---
Author Organization [facility] Address [address] [facility] [place] [address] Care Team Providers Care Compressor Operator Adjuster Name Role Phone Orlando Ash MD Primary Care Provider [phone] Encounter Details Date Type Department Care Team (Late st Contact Info) Description 08/09/2024 Bamboo flowsheet [facility] [address] [facility] [place] [address] Megan Diego, GRANT COORDINATOR [address] [facility] [place] [address] Social History Tobacco Use Types Packs/Day [...] EDT Routine [facility] OB [address] [facility] [place] [address] Eusebio Lam, DO [address] [facility] [address] [place], [facility] documented as of this encounter Visit Diagnoses Not on filedocumented in this encounter Care Teams Compressor Operator Adjuster Relationship Specialty Start Date End Date Orlando Ash MD [address] [place] [address] PCP - General Family Medicine 07/03/22 documented as of this encounter
--- OUTSIDE RECORDS SUMMARY | 2024-08-23 15:04 | XMS_ITS | Encounter Summary ---
Author Organization [facility] Address [address] [facility] [place] [address] Care Team Providers Care Drug Safety Specialist Name Role Phone Orlando Ash MD Primary Care Provider [phone] Encounter Details Date Type Department Care Team (Late st Contact Info) Description 12/29/2022 Clinisync Result Encounter [facility] External Department Unsolicited Yuri Lam [facility] [address] Social History Tobacco Use Types Packs/Day Years [...] [facility] BCP OB [address] [place] [id number] Yuri Lam DO [facility] [place] [address] documented as of this encounter Procedures Procedure Name Priority Date/Time Associated Diagnosis Comments US OB PLACENTA 12/29/2022 2:24 PM EST documented in this encounter Results * US OB PLACENTA (12/29/2022 2:24 PM EST) Anatomical Region Laterality Modality Other 12/29/2022 2:24 PM EST Narrative 12/29/2022 2:24 PM EST [address] [address] Ultrasound Report Signed Patient: HAWK KING MR#: [id number] : 2000 Acct:[id number] Age/Sex: 22 / F ADM Date: Loc: [facility] 254-[address]: Yuri Lam D.O. Ordering Physician: Yuri Lam D.O. Date of Service: 12/29/22 Procedure(s): US OB placenta Accession Number(s): [id number] cc: Yuri Lam D.O.; Physician,Non-Staff [place] [address] Patient Name: HAWK KING MRN: [facility]:[id number] date: 2000 Sex: F Assigned Patient Location: [facility] Current Patient Location: [facility] Accession/Order Number: [id number] Exam Date: 12/29/2022 13:06 Report Date: 12/29/2022 [...] Signed By: 12/29/22 1427 DD/ 1424 TD/TT: Dye Tub Tender: Procedure Note Radiology, Radiologist, MD - 12/29/2022 [place] [address] Ultrasound Report Signed Patient: HAWK KING CMR#: [id number] : 2000Acct:[id number] Age/Sex: 22 FADM Date: Loc: [facility] 254- Attending Dr: Yuri Lam D.O. Ordering Physician: Yuri Lam D.O. Date of Service: 12/29/22 Procedure(s): US OB placenta Accession Number(s): [id number] cc: Yuri Lam D.O.; Physician,Non-Staff [place] [address] Patient Name: HAWK KING MRN: [id number] date: 2000 Sex: F Assigned Patient Location: [facility] Current Patient Location: [facility] Accession/Order Number: [id number] Exam Date: 12/29/2022 13:06 Report Date: 12/29/2022 [...] M.D. Signed By:12/29/22 1427 DD/ 142 TD/TT: Dye Tub Tender: us Yuri Carole DO [facility] Final Result documented in this encounter Visit Diagnoses Not on filedocumented in this encounter Care Teams Drug Safety Specialist Relationship Specialty Start Date End Date Orlando Ash MD [address] [place] [address] PCP - General Family Medicine 07/03/22 documented as of this encounter
--- OUTSIDE RECORDS SUMMARY | 2024-08-23 15:04 | XMS_ITS | Encounter Summary ---
Author Organization [facility] Address [address] [place] [address] Care Team Providers Care Furniture Mover Driver Name Role Phone Orlando Ash MD Primary Care Provider [phone] Encounter Details Date Type Department Care Team (Late Contact Info) Description 08/23/2024 Bamboo flowsheet [facility] [address] [facility] [place] [place] [address] Eusebio Lam DO [address] [place] [address] Marisa [place], [place] [address] Social History Tobacco Use Types Packs/Day Years [...] Description 08/30/2024 11:00 AM EDT Routine [facility] [address] [place] [address] Eusebio Lam [facility] [place], [facility] documented as of this encounter Visit Diagnoses Not on filedocumented in this encounter Care Teams Furniture Mover Driver Relationship Specialty Start Date End Date Orlando Ash MD [address] [place] [address] PCP - General Family Medicine 07/03/22 documented as of this encounter
--- OUTSIDE RECORDS SUMMARY | 2024-08-23 15:04 | XMS_ITS | Encounter Summary ---
Author Organization [facility] Address [address] [facility] [place] [address] Care Team Providers Care Project Systems Engineer Name Role Phone Orlando Ash MD Primary Care Provider [phone] Encounter Details Date Type Department Care Team (Late Contact Info) Description 02/25/2024 Abstract [facility] [address] [place] [phone] Eusebio Lam DO [address] [place] [id number] Social History Tobacco Use Types Packs/Day Years [...] Description 08/30/2024 11:00 AM EDT Routine [facility] [address] [place] [phone] Eusebio Lam DO [facility] [place], [place] [id number] documented as of this encounter Visit Diagnoses Not on filedocumented in this encounter Care Teams Project Systems Engineer Relationship Specialty Start Date End Date Orlando Ash MD [address] [place] [address] PCP - General Family Medicine 07/03/22 documented as of this encounter
--- OUTSIDE RECORDS SUMMARY | 2024-08-23 15:04 | XMS_ITS | Encounter Summary ---
Author Organization [facility] Address [address] [facility] [place] [address] Care Team Providers Care Shell Machine Operator Name Role Phone Orlando Ash MD Primary Care Provider [phone] Encounter Details Date Type Department Care Team (Late Contact Info) Description 03/08/2024 Abstract [facility] [address] [place] [phone] Eusebio Lam DO [address] [place] [phone] Social History Tobacco Use Types Packs/Day Years [...] Description 08/30/2024 11:00 AM EDT Routine [facility] OB [address] [place] [address] Eusebio Lam DO [facility] [place], [place] [address] documented as of this encounter Visit Diagnoses Not on filedocumented in this encounter Care Teams Shell Machine Operator Relationship Specialty Start Date End Date Orlando Ash MD [address] [place] [address] PCP - General Family Medicine 07/03/22 documented as of this encounter
--- OUTSIDE RECORDS SUMMARY | 2024-08-23 15:04 | XMS_ITS | Encounter Summary ---
Author Organization [facility] Address [address] [facility] [place] [address] Care Team Providers Care Drier Name Role Phone Orlando Ash MD Primary Care Provider [phone] Encounter Details Date Type Department Care Team (Late st Contact Info) Description 05/30/2024 Results Follow-Up [facility] BCP OB [address] [facility] [place] [address] Carol Winter LPN [facility] [place] [address] Social History Tobacco Use Types Packs/Day Years [...] Description 08/30/2024 11:00 AM EDT Routine [facility] [address] [place] [address] Eusebio Lam, DO [address] [place] [address] documented as of this encounter Visit Diagnoses Not on filedocumented in this encounter Care Teams Drier Relationship Specialty Start Date End Date Orlando Ash MD [address] [place], [place] [phone] PCP - General Family Medicine 07/03/22 documented as of this encounter
--- OUTSIDE RECORDS SUMMARY | 2024-08-23 15:04 | XMS_ITS | Encounter Summary ---
Author Organization [facility] Address [facility] [id number] [address] [place] [address] Care Team Providers Care Landcare Facilitator Name Role Phone Orlando Ash MD Primary Care Provider [phone] Encounter Details Date Type Department Care Team (Late st Contact Info) Description 01/19/2024 Telephone [facility] Obstetrics/Gynecology [address] [facility] [place] [phone] [place], ELEMENTARY LIBRARIAN-[facility] [address] [facility], [address] [place] [address] Social History Tobacco Use Types Packs/Day Years [...] on filedocumented in this encounter Care Teams Landcare Facilitator Relationship Specialty Start Date End Date Orlando Ash MD [address] [place] [address] PCP - General Family Medicine 06/09/18 documented as of this encounter
--- OUTSIDE RECORDS SUMMARY | 2024-08-23 15:04 | XMS_ITS | Encounter Summary ---
Author Organization [facility] Address [address] [place] [address] Care Team Providers Care Application Security Developer Name Role Phone Orlando Ash MD Primary Care Provider [phone] Encounter Details Date Type Department Care Team (Late st Contact Info) Description 12/29/2022 Clinisync Result Encounter [facility] External Department Unsolicited Yuri Lam, [facility] [address] Social History Tobacco Use Types Packs/Day Years [...] [facility] BCP OB [address] [place] [address] Yuri Lam DO [facility] [place] [address] documented as of this encounter Procedures Procedure Name Priority Date/Time Associated Diagnosis Comments US OB CERVICAL LENGTH 12/29/2022 2:24 PM EST documented in this encounter Results * US OB CERVICAL LENGTH (12/29/2022 2:24 PM EST) Anatomical Region Laterality Modality Other 12/29/2022 2:24 PM EST Narrative 12/29/2022 2:24 PM EST [address] [address] Ultrasound Report Signed Patient: HAWK KING MR#: [id number] : 2000 Acct:[id number] Age/Sex: 22 / F ADM Date: Loc: [facility] 254-[address]: Yuri Lam D.O. Ordering Physician: Yuri Lam D.O. Date of Service: 12/29/22 Procedure(s): US OB cervical length Accession Number(s): [id number] cc: Yuri Lam D.O.; Physician,Non-Staff M.Sigrid [address] [address] Patient Name: HAWK KING MRN: [id number] date: 2000 Sex: F Assigned Patient Location: [facility] Current Patient Location: [facility] Accession/Order Number: [id number] Exam Date: 12/29/2022 13:06 Report Date: 12/29/2022 [...] Signed By: 12/29/22 1427 DD/ 1424 TD/TT: Agricultural Economics Teacher: Procedure Note Radiology, Radiologist, MD - 12/29/2022 [place] [address] Ultrasound Report Signed Patient: HAWK KING CMR#: [id number] : 2000Acct:[id number] Age/Sex: Date: Loc: [facility] 254-[address]: Yuri Lam D.O. Ordering Physician: Yuri Lam D.O. Date of Service: 12/29/22 Procedure(s): US OB cervical length Accession Number(s): [id number] cc: Yuri Lam D.O.; Physician,Non-Staff Sindy [place] [id number] Patient Name: HAWK KING MRN: [id number] date: 2000 Sex: F Assigned Patient Location: [facility] Current Patient Location: [facility] Accession/Order Number: [id number] Exam Date: 12/29/2022 13:06 Report Date: 12/29/2022 [...] M.D. Signed By:12/29/22 1427 DD/ 1424 TD/TT: Agricultural Economics Teacher: us Yuri Lam DO [facility] Final Result documented in this encounter Visit Diagnoses Not on filedocumented in this encounter Care Teams Application Security Developer Relationship Specialty Start Date End Date Orlando Ash MD [address] [place] [address] PCP - General Family Medicine 07/03/22 documented as of this encounter
--- OUTSIDE RECORDS SUMMARY | 2024-08-23 15:04 | XMS_ITS | Encounter Summary ---
Author Organization [facility] Address [address] [place] [address] Care Team Providers Care Typer Name Role Phone Orlando Ash MD Primary Care Provider [phone] Encounter Details Date Type Department Care Team (Late Contact Info) Description 02/24/2024 Abstract [facility] [address] [place] [address] Sunshine Ye LPN Social History Tobacco [...] Description 08/30/2024 11:00 AM EDT Routine [facility] [address] [place] [address] Eusebio Lam [address] [place], [place] [address] documented as of this encounter Visit Diagnoses Not on filedocumented in this encounter Care Teams Typer Relationship Specialty Start Date End Date Orlando Ash MD [address] [place] [address] PCP - General Family Medicine 07/03/22 documented as of this encounter
--- OUTSIDE RECORDS SUMMARY | 2024-08-23 15:04 | XMS_ITS | Clinical Summary ---
Author Organization [facility] Address [address] [place] [address] Care Team Providers Care Bar Attendant Name Role Phone Ann-Marie Ash MD Primary Care Provider [phone] Allergies No known active allergies Medications MV-Min-Fe Fum-FA-DHA ( 1 PO) Take 1 each by mouth Daily Active Active Problems Problem Noted Date Diagnosed Date Missed menses 07/02/2022 Estimated Date of Delivery Comme nts Yes 09/21/2024 Based on Ultraso und Encounters Date Type Department Care Team Description 08/23/2024 1:00 PM EDT Routine [facility] OB [address] [place] [address] Yuri Lam, Third trimester ([facility]); 35 weeks gestation of ([facility]) 08/23/2024 Bamboo flowsheet [facility] [place] [phone] Yuri Lam DO 08/22/2024 Clinisync Result Encounter [facility] External Department Unsolicited Yuri Lam, 08/17/2024 10:00 AM EDT Routine [facility] [place] [address] Yuri Lam, Third trimester ([facility]); 35 weeks gestation of ([facility]) 08/17/2024 Clinisync Result Encounter [facility] External Department Unsolicited uYri Lam, DO 08/17/2024 Bamboo flowsheet [facility] [address] [facility] [place] [address] Yuri Lam, DO 08/09/2024 8:30 AM EDT Routine [facility] OB [address] [place] [address] [place] [address] Megan Diego, CLASSER Third trimester ([facility]); 33 weeks gestation of ([facility]) 08/09/2024 Clinisync Result Encounter [facility] External Department Unsolicited Carole, Yuri, DO 08/09/2024 Clinisync Result Encounter [facility] External Department Unsolicited Carole, Yuri, DO 08/09/2024 Bamboo flowsheet [facility] [address] [facility] [place] [address] Megan Diego, CLASSER 08/03/2024 Clinisync Result Encounter [facility] External Department Unsolicited CaroleJoey, DO 08/03/2024 Clinisync Result Encounter [facility] External Department Unsolicited CaroleYuri, DO 07/26/2024 11:10 AM EDT Routine [facility] OB [address] [place] [address] [place] [address] Yuri Lam, DO Third trimester ([facility]); 31 weeks gestation of ([facility]) 07/26/2024 Clinisync Result Encounter [facility] External Department Unsolicited CaroleYuri, DO 07/26/2024 Bamboo flowsheet [facility] OB [address] [place] [address] [place] [address] Yuri Lam, DO 07/13/2024 10:30 AM EDT Routine [facility] [address] [place] [address] [place] [address] Yuri Lam, DO Third trimester ([facility]); 30 weeks gestation of ([facility]); H/O delivery, currently ([facility]) 07/13/2024 Bamboo flowsheet [facility] [address] [place] [address] [place] [address] Yuri Lam DO 06/28/2024 10:10 AM EDT Routine [facility] [address] [place] [address] Radha Avila PA Second trimester ([facility]); 27 weeks gestation of ([facility]) 06/28/2024 9:30 AM EDT Ancillary Procedure [facility] [address] [place] [address] H/O delivery, currently ([facility]) 06/13/2024 11:40 AM EDT Routine [facility] [address] [place] [address] Yuri Lam DO Second trimester ([facility]); 25 weeks gestation of ([facility]); H/O delivery, currently ([facility]); Vapes nicotine containing substance 06/13/2024 Bamboo flowsheet [facility] [address] [place] [address] Yuri Lam DO 05/30/2024 Results Follow-Up [facility] [address] [place] [address] Carol Winter LPN 05/25/2024 Orders Only [facility] [address] [place] [address] Caorl Winter STOVE BOTTOM WORKER 05/25/2024 Abstract [facility] [address] [place] [address] Yuri Lam DO from Last 3 Months [...] (169 lb) 08/23/2024 1:19 PM EDT Height 160 cm (5' 3 ) 03/12/2022 12:00 PM EST Body Mass Index 29.94 03/12/2022 12:00 PM EST Plan of Treatment Upcoming Encounters Date Type Department Care Team (Late st Contact Info) Description 08/30/2024 11:00 AM EDT Routine [facility] [address] [facility] [place] [address] Yuri Lam, DO [address] [place] [address] [place] [address] Procedures Procedure Name Priority Date/Time Associated Diagnosis Comments TBH URINE MICROSCOPIC ONLY Routine 08/22/2024 9:32 AM EDT TBH UA (CLEAN/CATCH) MACHINE BASTER/MICRO IF IND. Routine 08/22/2024 9:32 AM EDT US OB BPP W NON-STRESS 08/17/2024 10:41 AM EDT POCT URINALYSIS DIPSTICK Routine 08/17/2024 10:08 AM EDT Third trimester ([facility]) 35 weeks gestation of ([facility]) US OB BPP W NON-STRESS 08/09/2024 1:42 PM EDT US OB CERVICAL LENGTH 08/09/2024 1:33 PM EDT POCT URINALYSIS DIPSTICK Routine 08/09/2024 8:40 AM EDT Third trimester ([facility]) US OB BPP W NON-STRESS 08/03/2024 8:32 AM EDT US OB GROWTH 08/03/2024 8:32 AM EDT ALL CBC WITH AUTO DIFF Routine 12:13 PM EDT MLR HEMOGLOBIN A1C Routine 07/26/2024 12 :13 PM EDT POCT URINALYSIS DIPSTICK Routine 07/26/2024 11:35 AM EDT Third trimester ([facility]) POCT URINALYSIS DIPSTICK Routine 06/28/2024 10:19 AM EDT Second trimester ([facility]) US OB FOLLOW UP TRANSABDOMINAL APPROACH Routine 06/28/2024 10:08 AM EDT H/O delivery, currently ([facility]) US OB 14+ WEEKS ANATOMY SCAN 05/24/2024 5:38 PM EDT from Last 3 Months Results * (ABNORMAL) TBH URINE MICROSCOPIC ONLY (08/22/2024 9:32 AM EDT) TBH WBC 2-5(A) NONE SEEN #/HPF TBH TBH RBC 0-2 0 - 2 #/HPF TBH BACTERIA URINE MODERATE(A ) NONE SEEN #/HPF TBH MUCUS URINE NONE SEEN NONE SEEN TBH SQUAMOUS EPITHELIAL CELL URINE MODERATE(A ) NONE/RARE #/LPF TBH CRYSTALS SEEN? None Seen None Seen #/HPF TBH CAST SEEN? NONE SEEN NONE SEEN #/LPF TBH URINE CULTURE INDICATED YES[facility] 08/22/2024 9:32 AM EDT 08/22/2024 9:51 AM EDT Narrative [facility] - 08/22/2024 10:25 AM EDT us Yuri Carole DO [facility] Final Result [facility] * (ABNORMAL) TBH UA (CLEAN/CATCH) MACHINE BASTER/MICRO IF IND. (08/22/2024 9:32 AM EDT) COLOR [...] CLINISYNC - 08/22/2024 10:25 AM EDT us Yuri Carole DO [facility]IN[facility] Final Result Performing Organization Address [facility]/ZIP Co de Phone Number [facility] * US OB BPP W NON-STRESS (08/17/2024 10:41 AM EDT) Only the most recent of3 resultswithin the time period is included. Anatomical Region Laterality Modality Other 08/17/2024 10:4 1 AM EDT Narrative 08/17/2024 10:44 AM EDT [address] [address] Ultrasound Report Signed Patient: HAWK KING MR#: [id number] : 2000 Acct:[id number] Age/Sex: 23 / F ADM Date: 08/16/24 Loc: US Attending Dr: Yuri Lam D.O. Ordering Physician: Yuri Lam D.O. Date of Service: 08/16/24 Procedure(s): US OB BPP w non-stress Accession Number(s): [id number] cc: Yuri Lam D.O.; Physician,Non-Staff [place] [address] Patient Name: HAWK KING MRN: [facility]:[id number] date: 2000 Sex: F Assigned Patient Location: [facility] Current Patient Location: [facility] [place] Accession/Order Number: [id number] Exam Date: 08/17/2024 10:39 Report Date: 08/17/2024 [...] Hunt M.D. 08/17/2024 10:41 AM Dictation Location: [place] [address] Electronically authenticated by: [id number] Y Date: 08/17/2024 10:41 Dictated By: Jing Hunt M.D. Signed By: 08/17/24 1044 DD/ 1041 TD/TT: Wood Form Builder: Procedure Note Radiology, Radiologist, - 08/17/2024 [place] [address] Ultrasound Report Signed Patient: HAWK KING CMR#: [id number] : 2000Acct:[id number] Age/Sex: 23 / FADM Date: 08/16/24 Loc: US Attending Dr: Yuri Lam D.O. Ordering Physician: Yuri Lam D.O. Date of Service: 08/16/24 Procedure(s): US OB BPP w non-stress Accession Number(s): [id number] cc: Yuri Lam D.O.; Physician,Non-Staff [place] [id number] Patient Name: HAWK KING MRN: [id number] date: 2000 Sex: F Assigned Patient Location: [facility] Current Patient Location: [facility] [place] Accession/Order Number: [id number] Exam Date: 08/17/2024 10:39 Report Date: 08/17/2024 [...] Hunt M.D. 08/17/2024 10:41 AM Dictation Location: [place] [address] Electronically authenticated by: [id number] Y Date: 0:41 Dictated By: Jing Hunt M.D. Signed By:08/17/24 1044 DD/ 1041 TD/TT: Wood Form Builder: us Yuri Carole DO [facility] IMAGING Final Result * (ABNORMAL) [...] 08/17/2024 10:0 8 AM EDT us Yuri Carole DO POINT OF CARE TEST ENTER/EDIT OR DERABLES Final Result * US OB CERVICAL LENGTH (08/09/2024 1:33 PM EDT) Anatomical Region Laterality Modality Other 08/09/2024 1:33 PM EDT Narrative 08/09/2024 1:36 PM EDT [address] [address] Ultrasound Report Signed Patient: HAWK KING MR#: [id number] : 2000 Acct:[id number] Age/Sex: 23 / F ADM Date: 08/09/24 Loc: [facility] 250-[address]: Yuri Lam D.O. Ordering Physician: Yuri Lam D.O. Date of Service: 08/09/24 Procedure(s): US OB cervical length Accession Number(s): [id number] cc: Yuri Lam D.O.; Physician,Non-Staff [place] [address] Patient Name: HAWK KING MRN: [id number] date: 2000 Sex: F Assigned Patient Location: [facility] Current Patient Location: [facility] Accession/Order Number: [id number] Exam Date: 08/09/2024 13:32 Report Date: 08/09/2024 [...] Jr., D.O. 08/09/2024 1:33 PM Dictation Location: [place] [address] Electronically authenticated by: [id number] Y Date: 08/09/2024 13:33 Dictated By: Wojciech Farah M.D. Signed By: 08/09/24 1336 DD/ 1333 TD/TT: Wood Form Builder: Procedure Note Radiology, Radiologist, - 08/09/2024 [place] [address] Ultrasound Report Signed Patient: HAWK KING CMR#: [id number] : 2000Acct:[id number] Age/Sex: 23 / FADM Date: 08/09/24 Loc: [facility] 250-[address]: Yuri Lam D.O. Ordering Physician: Yuri Lam D.O. Date of Service: 08/09/24 Procedure(s): US OB cervical length Accession Number(s): [id number] cc: Yuri Lam D.O.; Physician,Non-Staff [place] [address] Patient Name: HAWK KING MRN: [id number] date: 2000 Sex: F Assigned Patient Location: [facility] Current Patient Location: [facility] Accession/Order Number: [id number] Exam Date: 08/09/2024 13:32 Report Date: 08/09/2024 [...] Jr., D.O. 08/09/2024 1:33 PM Dictation Location: [place] [address] Electronically authenticated by: [id number] Y Date: 3:33 Dictated By: Wojciech Farah M.D. Signed By:08/09/24 1336 DD/ 1333 TD/TT: Wood Form Builder: us Yuri Lam DO [facility] IMAG[facility] Final Result * US OB GROWTH (08/03/2024 8:32 AM EDT) Anatomical Region Laterality Modality Other 08/03/2024 8:32 AM EDT Narrative 08/03/2024 8:35 AM EDT The [address] [address] Ultrasound Report Signed Patient: HAWK KING MR#: [id number] : 2000 Acct:[id number] Age/Sex: 23 / F ADM Date: 08/02/24 Loc: US Attending Dr: Yuri Lam D.O. Ordering Physician: Yuri Lam D.O. Date of Service: 08/02/24 Procedure(s): US OB growth Accession Number(s): [id number] cc: Yuri Lam D.O.; Physician,Non-Staff [place] [id number] Patient Name: HAWK KING MRN: [id number] date: 2000 Sex: F Assigned Patient Location: [facility] Current Patient Location: Accession/Order Number: [id number] Exam Date: 08/03/2024 08:23 Report Date: 08/03/2024 08:32 At the request of: YURI LAM DO Procedure: US OB BPP w non-stress CLINICAL INFORMATION: H/O LABOR O09.899 ULTRASOUND OB GROWTH COMPARISON: None There is a single live intrauterine gestation in cephalic presentation. There is cardiac and somatic activity. The heart rate gzxwjyyp715 beats per minute. The placenta is posterior. [...] Hunt M.D. 08/03/2024 8:32 AM Dictation Location: [place] [address] Electronically authenticated by: [id number] Y Date: 08/03/2024 08:32 Dictated By: Jing Hunt M.D. Signed By: 08/03/2435 DD/ TD/TT: Wood Form Builder: Procedure Note Radiology, Radiologist, MD - 08/03/2024 [place] [address] Ultrasound Report Signed Patient: HAWK KING CMR#: [id number] : 2000Acct:[id number] Age/Sex: 23 / FADM Date: 08/02/24 Loc: US Attending Dr: Yuri Lam D.O. Ordering Physician: Yuri Lam D.O. Date of Service: 08/02/24 Procedure(s): US OB growth Accession Number(s): [id number] cc: Yuri Lam D.O.; Physician,Non-Staff [place] [id number] Patient Name: HAWK KING MRN: [id number] date: 2000 Sex: F Assigned Patient Location: [facility] Current Patient Location: Accession/Order Number: [id number] Exam Date: 08/03/2024 08:23 Report Date: 08/03/2024 08:32 At the request of: YURI CAROLE DO Procedure: US OB BPP w non-stress CLINICAL INFORMATION: H/O LABOR O09.899 ULTRASOUND OB GROWTH COMPARISON: None There is a single live intrauterine gestation in cephalic presentation.There is cardiac and somatic activity. The heart rate pullbyqm686dbten per minute. The placenta is posterior. The [...] Hunt M.D. 08/03/2024 8:32 AM Dictation Location: [place] [address] Electronically authenticated by: [id number] Y Date: 508:32 Dictated By: Jing Hunt M.D. Signed By:08/03/24 0835 DD/ 0832 TD/TT: Wood Form Builder: us Yuri Lam DO [facility] IMAGING Final Result * MLR HEMOGLOBIN A1C (07/26/2024 12:13 PM EDT) [facility] GLYCOHEMOGLOBIN A1C 4.8 4.5 - 6.2 % TB Comment: ADA RECOMMENDED LIMIT 4.0 - 6.0 ADA THERAPEUTIC TARGET < 7.0 ACTION SUGGESTED > 7.0 ESTIMATED AVERAGE GLUCOSE 91 mg/dL TB 07/26/2024 12:1 3 PM EDT 07/26/2024 12:39 PM EDT Narrative CLINISYNC - 07/26/2024 1:18 PM EDT us Yuri Carole DO CLIN[facility]NC Final Result [facility] * (ABNORMAL) ALL CBC WITH AUTO DIFF (07/26/2024 12:13 PM EDT) [facility] TB WBC 10.4 4.0 - 11.0 10 3/uL TBH TB RBC 3.65(L) 4.20 - 5.40 10 6/uL TBH TB HGB 11.6(L) 12.0 - 16.0 g/dL TB TB HCT 34.6(L) 36.0 - 48.0 % TBH TB MCV 94.8 81.0 - 99.0 fL TBH TB MCH 31.8 26.7 - 34.0 pg TBH TB MCHC 33.5 29.9 - 35.2 g/dL TB TB RDW 13.2 11.0 - 15.0 % TBH TB PLT 308 150 - 450 10 3/uL TBH TB MPV 10.9 9.5 - 13.5 fL TBH [...] us Yuri Carole DO CLINIS[facility]NC Final Result [facility] * US OB follow up transabdominal approach [...] II, MD, PHD at 30-Jun-2024 12:16:48 PM [facility] Procedure Note Ann-Marei Tamayo MD - 06/30/2024 EXAM: US OB [...] signed by ANN-MARIE TAMAYO II, MD, PHD [id number] 12:16:48 PM [facility] us Yuri Carole DO IMG OB US PROCEDURES Final Resul t * US OB 14+ weeks anatomy scan (05/24/2024 5:38 PM EDT) Anatomical Region Laterality Modality Body Ultrasound 05/24/2024 5:38 PM EDT Narrative 05/24/2024 5:38 PM EDT THIS EXAM WAS PERFORMED AT [facility] NAME: DUNG ONOFRE : 2000 SEX: F Accession Number: [id number] ORDERING PHYSICIAN: VELMA GARCIA REFERRING PHYSICIAN: YURI LAM Coding ----- --------- Procedures 98756: Ultrasound, uterus, real time with image documentation, and maternal evaluation plus detailed anatomic examination, transabdominal approach;single or first gestation 89149: Transvaginal Ultrasound (OB) Indication ----- --------- Screening for Anatomic Survey , Screening for cervical length, history of thyroid disease, History of gestational hypertension, History of prior with delivery, Abnormal finding on screening of mother - + CF SMA carrier, Smoking in - vapes, marijuana use in . Supervision of high risk - Hypoplastic NB History ----- --------- OB History 5. Para 2 [id number] Current ----- --------- Cell free DNA Low [...] 1 lb 10 oz EFW by Hadlock ([id number]) Head / Face / Neck Biometry: Cephalic index 0.72 3% Nicolaides Historical Site Guide 2.5 mm CM 6.3 mm 69% Nicolaides [...] view. RVOT view. LVOT view. 3-vessel view. 5-pkfkdp-xfnybfh view. Situs. Aortic arch view. Bicaval view. [...] structural abnormalities. Recommendations ----- --------- Please see [facility] documentation from today. Subsequent follow up or other follow up as clinically determined by primary OB provider unless otherwise specified by [facility]. Results forwarded to ordering provider so they can follow up with the patient as necessary. The copy-to physician of this order is YURI Shore The ordering physician of this order is VELMA eD La O Procedure Note Radiology, Radiologist, - 05/24/2024 THIS EXAM WAS PERFORMED AT [facility] NAME: DUNG NOOFRE : 2000 SEX: F Accession Number: [id number] ORDERING PHYSICIAN: VELMA GARCIA REFERRING PHYSICIAN: YURI LAM Coding ----- --------- Procedures 08642: Ultrasound, uterus, real time with imagedocumentation, and maternal evaluation plus detailed anatomic examination, transabdominalapproach;single or first gestation 72910: Transvaginal Ultrasound (OB) Indication ----- --------- Screening for Anatomic Survey , Screening for cervical length, history ofthyroid disease, History of gestational hypertension, History of prior with delivery, Abnormalfinding on screening of mother - + CF SMA carrier, Smoking in - vapes, marijuana use in .Supervision of high risk - Hypoplastic NB History ----- --------- OB History 5. Para 2 [id number] Current ----- --------- Cell free DNA Low [...] 1 lb 10 oz EFW by Hadlock ([id number]-FL) Head / Face / Neck Biometry: Cephalic index 0.72 3% Nicolaides Historical Site Guide 2.5 mm CM 6.3 mm 69% Nicolaides [...] 4-chamber view. RVOT view. LVOT view. 3-vessel view.8-fkfrtl-zqsqkql view. Situs. Aortic arch view. Bicaval view. [...] structural abnormalities. Recommendations ----- --------- Please see [facility] documentation from today. Subsequent follow up or other follow up as clinically determined byprimary OB provider unless otherwise specified by [facility]. Results forwarded to ordering provider so they can follow up with thepatient as necessary. The copy-to physician of this order is YURI Shore The ordering physician of this order is VELMA De La O us Yuri Lam DO IMG OB US PROCEDURES Final Resul t from Last [address] [place] [address] MEDICAID [place] Care Teams Bar Attendant Relationship Specialty Start Date End Date Ann-Marie Ash MD [address] [place] [address] PCP - General Family Medicine 07/03/22
--- OUTSIDE RECORDS SUMMARY | 2024-08-23 15:04 | XMS_ITS | Encounter Summary ---
Author Organization [facility] Address [address] [place] [address] Care Team Providers Care Va Underwriter Name Role Phone Orlando Ash MD Primary Care Provider [phone] Encounter Details Date Type Department Care Team (Late Contact Info) Description 05/25/2024 Abstract [facility] [address] [place] [address] Eusebio Lam DO [facility] [address] [place], [place] [address] Social History Tobacco Use Types Packs/Day Years [...] Description 08/30/2024 11:00 AM EDT Routine [facility] OB [address] [place] [address] Eusebio Lam DO [facility] [address] [place], [place] [address] documented as of this encounter Visit Diagnoses Not on filedocumented in this encounter Care Teams Va Underwriter Relationship Specialty Start Date End Date Orlando Ash MD [address] [place] [address] PCP - General Family Medicine 07/03/22 documented as of this encounter
--- OUTSIDE RECORDS SUMMARY | 2024-08-23 15:04 | XMS_ITS | Encounter Summary ---
Author Organization [facility] Address [address] [place] [address] Care Team Providers Care Sessions Clerk Name Role Phone Orlando Ash MD Primary Care Provider [phone] Encounter Details Date Type Department Care Team (Late st Contact Info) Description 12/29/2022 Clinisync Result Encounter N[facility]S External Department Unsolicited Yuri Lam, DO [facility] [place] [address] Social History Tobacco Use Types Packs/Day Years [...] Routine [facility] OB [address] [place] [address] Yuri Lam DO [facility] [place] [address] documented as of this encounter Procedures Procedure Name Priority Date/Time Associated Diagnosis Comments US OB BPP W NON-STRESS 12/29/2022 2:24 PM EST documented in this encounter Results * US OB BPP W NON-STRESS (12/29/2022 2:24 PM EST) Anatomical Region Laterality Modality Other 12/29/2022 2:24 PM EST Narrative 12/29/2022 2:24 [place] [address] Ultrasound Report Signed Patient: HAWK KING MR#: [id number] : 2000 Acct:[id number] Age/Sex: 22 / F ADM Date: Loc: [facility] 254-[address]: Yuri Lam D.O. Ordering Physician: Yuri Lam D.O. Date of Service: 12/29/22 Procedure(s): US OB BPP w non-stress Accession Number(s): [id number] cc: Yuri Lam D.O.; Physician,Non-Staff M.[place]rid [place] [id number] Patient Name: HAWK KING MRN: [id number] date: 2000 Sex: F Assigned Patient Location: [facility] Current Patient Location: [facility] Accession/Order Number: [id number] Exam Date: 12/29/2022 13:06 Report Date: 12/29/2022 [...] Signed By: 12/29/22 1427 DD/ 23 TD/TT: Insurance Loss Assessor: Procedure Note Radiology, Radiologist, MD - 12/29/2022 [place] [address] Ultrasound Report Signed Patient: HAWK KING CMR#: [id number] : 2000Acct:[id number] Age/Sex: Date: Loc: [facility] 254-[address]: Yuri Lam D.O. Ordering Physician: Yuri Lam D.O. Date of Service: 12/29/22 Procedure(s): US OB BPP w non-stress Accession Number(s): [id number] cc: Yuri Lam D.O.; Physician,Non-Staff M.DTaylor The [place] [id number] Patient Name: HAWK KING MRN: [id number] date: 2000 Sex: F Assigned Patient Location: [facility] Current Patient Location: [facility] Accession/Order Number: [id number] Exam Date: 12/29/2022 13:06 Report Date: 12/29/2022 [...] M.D. Signed By:12/29/22 1427 DD/ 142 TD/TT: Insurance Loss Assessor: us Yuri Carole DO [facility] Final Result documented in this encounter Visit Diagnoses Not on filedocumented in this encounter Care Teams Sessions Clerk Relationship Specialty Start Date End Date Orlando Ash MD [address] [place], [place] [id number] PCP - General Family Medicine 07/03/22 documented as of this encounter
--- OUTSIDE RECORDS SUMMARY | 2024-08-23 15:04 | XMS_ITS | Encounter Summary ---
Author Organization [employer] Address [id number] [address] [place] [address] Care Team Providers Care Visitor Services Technician Name Role Phone Orlando Ash MD Primary Care Provider [phone] Encounter Details Date Type Department Care Team (Late st Contact Info) Description 06/06/2021 Telephone [facility] Obstetrics/Gynecology [address] [place] [id number] Tory Calloway MA Social History Tobacco Use [...] documented as of this encounter Care Teams Visitor Services Technician Relationship Specialty Start Date End Date Orlando Ash MD [address] [place] [address] PCP - General Family Medicine 06/09/18 documented as of this encounter
--- OUTSIDE RECORDS SUMMARY | 2024-08-23 15:04 | XMS_ITS | Encounter Summary ---
Author Organization [facility] Address [address] [place] [address] Care Team Providers Care Engine Test Cell Technician Name Role Phone Orlando Ash MD Primary Care Provider [phone] Encounter Details Date Type Department Care Team (Late st Contact Info) Description 08/09/2024 Clinisync Result Encounter [facility] External Department Unsolicited Yuri Lam DO [address] [place], [facility] Social History Tobacco Use Types [...] Routine [facility] BCP [place] [address] [place] [phone] Yuri Lam DO [address] [place] [address] documented as of this encounter Procedures Procedure Name Priority Date/Time Associated Diagnosis Comments US OB CERVICAL LENGTH 08/09/2024 1:33 PM EDT documented in this encounter Results * US OB CERVICAL LENGTH (08/09/2024 1:33 PM EDT) Anatomical Region Laterality Modality Other 08/09/2024 1:33 PM EDT Narrative 08/09/2024 1:36 [place] [address] Ultrasound Report Signed Patient: HAWK KING MR#: [id number] : 2000 Acct:[id number] Age/Sex: 23 / F ADM Date: 08/09/24 Loc: [facility] 250-[address]: Yuri Lam D.O. Ordering Physician: Yuri Lam D.O. Date of Service: 08/09/24 Procedure(s): US OB cervical length Accession Number(s): [id number] cc: Yuri Lam D.O.; Physician,Non-Staff M.DTaylor [place] [address] Patient Name: HAWK KING MRN: [id number] date: 2000 Sex: F Assigned Patient Location: [facility] Current Patient Location: [facility] Accession/Order Number: [id number] Exam Date: 08/09/2024 13:32 Report Date: 08/09/2024 [...] Jr., D.O. 08/09/2024 1:33 PM [facility]ictation [facility] Electron[facility] authenticated by: [id number] Y Date: 08/09/2024 13:33 Dictated By: Wojciech Farah M.D. Signed By: 08/09/24 1336 DD/ 32 TD/TT: Chocolate Refining Roller: Procedure Note Radiology, Radiologist, - 08/09/2024 [place] [address] Ultrasound Report Signed Patient: HAWK KING CMR#: [id number] : 2000Acct:[id number] Age/Sex: 23 / FADM Date: 08/09/24 Loc: [facility] 250-[address]: Yuri Lam D.O. Ordering Physician: Yuri Lam D.O. Date of Service: 08/09/24 Procedure(s): US OB cervical length Accession Number(s): [id number] cc: Yuri Lam D.O.; Physician,Non-Staff [place]indy [place] [address] Patient Name: HAWK KING MRN: [id number] date: 2000 Sex: F Assigned Patient Location: [facility] Current Patient Location: [facility] Accession/Order Number: [id number] Exam Date: 08/09/2024 13:32 Report Date: 08/09/2024 [...] Jr., D.O. 08/09/2024 1:33 PM Dictation [facility] Electron[facility] authenticated by: [id number] Y Date: 3:33 Dictated By: Wojciech Farah M.D. Signed By:08/09/24 1336 DD/ 1333 TD/TT: Chocolate Refining Roller: us Yuri Carole DO [facility] Final Result documented in this encounter Visit Diagnoses Not on filedocumented in this encounter Care Teams Engine Test Cell Technician Relationship Specialty Start Date End Date Orlando Ash MD [address] [place] [address] PCP - General Family Medicine 07/03/22 documented as of this encounter
--- OUTSIDE RECORDS SUMMARY | 2024-08-23 15:04 | XMS_ITS | Encounter Summary ---
Author Organization Impe[facility] tem Address [facility] [address] [place] [address] Care Team Providers Care Forestry Patrolman Name Role Phone Orlando Ash MD Primary Care Provider [phone] Encounter Details Date Type Department Care Team (Late st Contact Info) Description 07/21/2021 Orders Only [facility] [address] [facility] [address] [place] [phone] Genny Mosquera, MARTY care in first trimester; [...] documented as of this encounter Care Teams Forestry Patrolman Relationship Specialty Start Date End Date Orlando Ash MD [address] [place] [address] PCP - General Family Medicine 06/09/18 documented as of this encounter
--- OUTSIDE RECORDS SUMMARY | 2024-08-23 15:05 | XMS_ITS | Patient Health Record ---
Author Organization [facility] vices Address [address] [place], [place] [address] Care Team Providers Care Slat Twister Name Role Phone Chris Rodriguez Unavailable [phone] Reason For Referral No Information Social History Sex Assigned At : Social History Observation Description Sex Assigned At Female Plan Of Treatment No Information Insurance Providers Payer Name Payer Address Payer Phone Subscriber Number Group Number Insured Name Patient Relationship to Insured Coverage Start Date Coverage End Date [facility] [address] [place] [phone] [id number] Hawk King Self - patient is the insured
--- OUTSIDE RECORDS SUMMARY | 2024-08-23 15:05 | XMS_ITS | Encounter Summary ---
Author Organization [facility] Address [address] [facility] [place] [address] Care Team Providers Care Sanitation Engineer Name Role Phone Janee Del Valle MD Unavailable Orlando Ash MD Primary Care Provider [phone] Encounter Details Date Type Department Care Team (Late Contact Info) Description 09/03/2022 Abstract [facility] OB [address] [place] [address] Radha Avila PA [address] [place] [address] Dr [place], [place] [address] Social History Tobacco Use Types Packs/Day Years [...] Description 08/30/2024 11:00 AM EDT Routine [facility] OB [address] [place] [address] Eusebio Lam, [address] [facility] [address] [place], [place] [address] documented as of this encounter Visit Diagnoses Not on filedocumented in this encounter Care Teams Sanitation Engineer Relationship Specialty Start Date End Date Janee Del Valle MD [address] [place] [address] PCP - Sri Gallegos 03/11/22 Orlando Ash MD [address] [place], [place] [address] PCP - General Family Medicine 07/03/22 documented as of this encounter
--- OUTSIDE RECORDS SUMMARY | 2024-08-23 15:05 | XMS_ITS | Encounter Summary ---
Author Organization [facility] Address [address] [place] [address] Care Team Providers Care Assessment Services Manager Name Role Phone Orlando Ash MD Primary Care Provider [phone] Encounter Details Date Type Department Care Team (Late Contact Info) Description 08/17/2024 Bamboo flowsheet [facility] OB [address] [facility] [place] [address] Eusebio Lam DO [address] [place] [address] Marisa [place], [place] [address] Social History Tobacco Use Types Packs/Day Years [...] Description 08/30/2024 11:00 AM EDT Routine [facility] OB [address] [place] [address] Eusebio Lam [facility] [address] [place], [facility] documented as of this encounter Visit Diagnoses Not on filedocumented in this encounter Care Teams Assessment Services Manager Relationship Specialty Start Date End Date Orlando Ash MD [address] [place] [address] PCP - General Family Medicine 07/03/22 documented as of this encounter
--- OUTSIDE RECORDS SUMMARY | 2024-08-23 15:05 | XMS_ITS | Encounter Summary ---
Author Organization [facility] Address [address] [place] [address] Care Team Providers Care Shaper Operator Name Role Phone Janee Del Valle MD Unavailable Orlando Ash MD Primary Care Provider [phone] Encounter Details Date Type Department Care Team (Late st Contact Info) Description 07/03/2022 Clinisync Result Encounter [facility] External Department Unsolicited Eusebio Lam, DO [address] [place] [address] Social History Tobacco Use Types Packs/Day Years [...] [facility] BCP OB [address] [place] [phone] Eusebio Lam DO [address] [place] [address] documented as of this encounter Procedures Procedure [...] Date: 2022-07-03 17:20 us Eusebio Carole DO [facility] Final Result documented in this encounter Visit Diagnoses Not on filedocumented in this encounter Care Teams Shaper Operator Relationship Specialty Start Date End Date Janee Del Valle MD [address] [place] [address] PCP - [place] [employer] 03/11/22 Orlando Ash MD [address] [place] [address] PCP - General Family Medicine 07/03/22 documented as of this encounter
--- OUTSIDE RECORDS SUMMARY | 2024-08-23 15:05 | XMS_ITS | Encounter Summary ---
Author Organization [facility] Address [address] [facility] [place] [address] Care Team Providers Care Production Machinist Name Role Phone Janee Del Valle MD Unavailable Orlando Ash MD Primary Care Provider [phone] Encounter Details Date Type Department Care Team (Late st Contact Info) Description 08/03/2022 Abstract [facility] BCP OB [address] [facility] [place] [address] Eusebio Lam, [address] [place], [place] [address] Social History Tobacco Use Types Packs/Day Years [...] AM EDT Routine [facility] BCP OB [address] [facility] [place] [address] Eusebio Lam DO [facility] [place] [address] documented as of this encounter Visit Diagnoses Not on filedocumented in this encounter Care Teams Production Machinist Relationship Specialty Start Date End Date Janee Del Valle MD [address] [place] [address] PCP - [place] [employer] 03/11/22 Orlando Ash MD [address] [place] [address] PCP - General Family Medicine 07/03/22 documented as of this encounter
--- OUTSIDE RECORDS SUMMARY | 2024-08-23 15:05 | XMS_ITS | Clinical Summary ---
Author Organization mania[employer] tem Address [facility] [address] [place] [address] Care Team Providers Care Credit Control Officer Name Role Phone Orlando Ash MD Primary Care Provider [phone] Allergies No known active allergies Medications 76-ufga-ozulzy 9-dha 31 mg iron- 1 mg-200 mg [...] AM EDT Office Visit Maternal- Medicine at [facility] [address] [place] [address] Nidhi Nicole MD 22 weeks gestation of (Primary Dx); History of gestational hypertension; History of delivery, currently ; Vaping nicotine dependence, non-tobacco product; Marijuana use during ; Genetic carrier 05/24/2024 9:03 AM EDT - 05/24/2024 11:59 PM EDT Hospital Encounter [facility] US Imaging [address] [place] [phone] Screening, , for anatomic survey Discharge Disposition: [...] Procedure Name Priority Date/Time Associated Diagnosis Comments [facility] COMPREHENSIVE ANATOMIC SURVEY Routine 05/24/2024 10:46 AM EDT Screening, , for anatomic survey CHLAMYDIA/GC BY PCR SINDI SWAB Routine 06/24/2021 8:36 AM EDT care in first trimester PAP SMEAR Routine 02/25/2021 12:56 PM EST Cervical cancer screening Well woman exam from Last 3 Months or Most Recently Relevant to Health Maintenance Results * US [facility] COMPREHENSIVE ANATOMIC SURVEY (05/24/2024 10:46 AM EDT) Anatomical Region Laterality Modality OB-ESL INSTRUCTOR Ultrasound 05/24/2024 9:25 AM EDT Narrative 05/24/2024 5:38 PM EDT NAME: CHRISTINE ONOFRE : 2000 SEX: F Accession Number: [id number] ORDERING PHYSICIAN: VELMA GARCIA REFERRING PHYSICIAN: YURI REDDY Coding ----- --------- Procedures 95697: Ultrasound, uterus, real time with image documentation, and maternal evaluation plus detailed anatomic examination, transabdominal approach;single or first gestation 23425: Transvaginal Ultrasound (OB) Indication ----- --------- Screening for Anatomic Survey , Screening for cervical length, history of thyroid disease, History of gestational hypertension, History of prior with delivery, Abnormal finding on screening of mother - + CF & SMA carrier, Smoking in - vapes, marijuana use in . Supervision of high risk - Hypoplastic NB History ----- --------- OB History 5. Para 2 [id number] Current ----- --------- Cell free DNA Low [...] 1 lb 10 oz EFW by Hadlock (VMR-XY-VC-FL) Head / Face / Neck Biometry: Cephalic index 0.72 3% Nicolaides Access Clinician 2.5 mm CM 6.3 mm 69% Nicolaides [...] view. RVOT view. LVOT view. 3-vessel view. 0-zzjupt-zokxbzj view. Situs. Aortic arch view. Bicaval view. [...] ONOFRE : 2000 SEX: F Accession Number: [id number] ORDERING PHYSICIAN: VELMA GARCIA REFERRING PHYSICIAN: YURI REDDY Coding ----- --------- Procedures 36760: Ultrasound, uterus, real time with imagedocumentation, and maternal evaluation plus detailed anatomic examination, transabdominalapproach;single or first gestation 78323: Transvaginal Ultrasound (OB) Indication ----- --------- Screening for Anatomic Survey , Screening for cervical length, history ofthyroid disease, History of gestational hypertension, History of prior with delivery, Abnormalfinding on screening of mother - + CF & SMA carrier, Smoking in - vapes, marijuana use in .Supervision of high risk - Hypoplastic NB History ----- --------- OB History 5. Para 2 [id number] Current ----- --------- Cell free DNA Low [...] 1 lb 10 oz EFW by Hadlock (UAL-KW-UC-FL) Head / Face / Neck Biometry: Cephalic index 0.72 3% Nicolaides Access Clinician 2.5 mm CM 6.3 mm 69% Nicolaides [...] 4-chamber view. RVOT view. LVOT view. 3-vessel view.0-ldfnmt-gbegvqa view. Situs. Aortic arch view. Bicaval view. [...] with thepatient as necessary. Velma Garcia MD [facility] US ORDERABLES Final Result * Chlamydia/GC by PCR Sindi Swab (06/24/2021 8:36 AM EDT) Specimen source CERVICAL 10:25 AM EDT [facility] Chlamydia DNA PCR Negative Negative^N egative 06/26/2021 6:02 AM EDT [facility] Comment: Chlamydia trachomatis not detected by nucleic acid amplification. This does not exclude the possibility of infection because results are dependent on adequate specimen collection. Gonorrhea DNA PCR Negative Negative^N egative 06/26/2021 6:02 AM EDT [facility] Comment: Neisseria gonorrhoeae not detected by nucleic acid amplification. This does not exclude the possibility of infection because results are dependent on adequate specimen collection. GENS 06/24/2021 8:36 AM EDT 06/25/2021 10:25 AM EDT us Lima Gonzalez APRN-[facility] MICROBIOLOGY - GENERAL O RDERABLES Final Result [facility] [address] [place] [address] * Pap Smear (02/25/2021 12:56 PM EST) 02/25/2021 12:5 6 PM EST 02/26/2021 12:58 PM EST Narrative COPATH - 02/27/2021 2:27 PM EST [facility] [address] [place] [address] Gynecologic Cytology Consultation Patient Name: HAWK KING : 2000 (Age: 20) Gender: F Taken: 02/25/2021 Reported: 02/27/2021 Physician(s): Lima Gonzalez CNM ([phone]) Copy To: Med. Rec. #: [id number] Acct: # [id number] Final Cytologic Interpretation ThinPrep Pap Test (Cervical): Satisfactory for evaluation. A transformation zone component was not noted. NEGATIVE FOR INTRAEPITHELIAL LESION OR MALIGNANCY. Shift in missy suggestive of bacterial vaginosis. Comment: This ThinPrep slide could not be successfully imaged by the [employer] ThinPrep Imaging System so it was manually screened. [facility]/02/27/2021 Interpretation performed at [facility], [address] [place] [address], License number: [id number]. Electronically Signed Out By PAUL Madrigal(ASCP) Date of Last Menstrual Period: 02/20/2021 Other Clinical Conditions: Z12.4 Screening for malignant neoplasm of cervix Z01.419 Magneto Repairer exam wo/abn findings Source of Specimen ThinPrep Pap Test (Cervical) Thin Prep Pap (ESL INSTRUCTOR) Fee Code(s): G0145, G0145 <CR>, G0123 The Pap test is a screening test with an inherent, but low, probability of error. The Pap test is primarily effective for the diagnosis and prevention of squamous cell carcinoma. Regular screening is critical for prevention. ThinPrep liquid-based slides, which meet the Food Assembler Commissary Kitchen criteria for automated screening, have been screened by the ThinPrep Imaging System (as of 10/25/06) along with an additional manual rescreening by a roof plumber and, if indicated, by a pathologist. Lima Gonzalez COIN PURSE ASSEMBLER-[facility] PATHOLOGY/CYTOLOGY ORDER SYED Final Result COPATH from Last 3 Months or Most Recently Relevant to Health Maintenance Insurance [employer] Care Teams Credit Control Officer Relationship Specialty Start Date End Date Orlando Ash MD [address] [place] [id number] PCP - General Family Medicine 06/09/18
--- OUTSIDE RECORDS SUMMARY | 2024-08-23 15:05 | XMS_ITS | Encounter Summary ---
Author Organization [facility] Address [address] [place] [address] Care Team Providers Care Weatherization Installer Name Role Phone Janee Del Valle MD Unavailable Orlando Ash MD Primary Care Provider [phone] Encounter Details Date Type Department Care Team (Late Contact Info) Description 08/06/2022 Abstract [facility] OB [address] [facility] [place] [address] [place] [address] [address] [place], [place] [id number] Social History Tobacco Use Types Packs/Day Years [...] Description 08/30/2024 11:00 AM EDT Routine [facility] OB [address] [facility] [place] [address] [place] [address] [address] [place], [place] [address] documented as of this encounter Visit Diagnoses Not on filedocumented in this encounter Care Teams Weatherization Installer Relationship Specialty Start Date End Date Janee Del Valle MD [address] [place] [address] PCP - Sri Gallegos 03/11/22 Orlando Ash MD [address] [place], [place] [phone] PCP - General Family Medicine 07/03/22 documented as of this encounter
--- OUTSIDE RECORDS SUMMARY | 2024-08-23 15:05 | XMS_ITS | Encounter Summary ---
Author Organization [facility] Address [address] [facility] [place] [address] Care Team Providers Care Member Services Representative Name Role Phone Janee Del Valle MD Unavailable Orlando Ash MD Primary Care Provider [phone] Encounter Details Date Type Department Care Team (Late st Contact Info) Description 07/20/2022 Abstract [facility] OB [address] [facility] [place] [address] Eusebio Lam, [address] [place], [place] [id number] Social History Tobacco Use Types Packs/Day Years [...] AM EDT Routine [facility] BCP OB [address] [facility] [address] Eusebio Lam [facility] [place] [address] documented as of this encounter Visit Diagnoses Not on filedocumented in this encounter Care Teams Member Services Representative Relationship Specialty Start Date End Date Janee Del Valle MD [address] [place] [address] PCP - [place] [employer] 03/11/22 Orlando Ash MD [address] [place] [address] PCP - General Family Medicine 07/03/22 documented as of this encounter
--- OUTSIDE RECORDS SUMMARY | 2024-08-23 15:05 | XMS_ITS | Encounter Summary ---
Author Organization [facility] Address [address] [place] [address] Care Team Providers Care Medical Apparatus Model Maker Name Role Phone Orlando Ash MD Primary Care Provider Encounter Details Date Type Department Care Team (Late st Contact Info) Description 08/17/2024 Clinisync Result Encounter [facility]S External Department Unsolicited Yuri Lam DO [address] [place], [facility] Social History Tobacco Use Types Packs/Day [...] Routine [facility] BCP OB [address] [place] [address] Yuri Lam DO [address] [place] [address] documented as of this encounter Procedures Procedure Name Priority Date/Time Associated Diagnosis Comments US OB BPP W NON-STRESS 08/17/2024 10:41 AM EDT documented in this encounter Results * US OB BPP W NON-STRESS (08/17/2024 10:41 AM EDT) Anatomical Region Laterality Modality Other 08/17/2024 10:4 1 AM EDT Narrative 08/17/2024 10:44 [place] [address] Ultrasound Report Signed Patient: HAWK KING MR#: [id number] : 2000 Acct:[id number] Age/Sex: 23 / F ADM Date: 08/16/24 Loc: US Attending Dr: Yuri Lam D.O. Ordering Physician: Yuri Lam D.O. Date of Service: 08/16/24 Procedure(s): US OB BPP w non-stress Accession Number(s): [id number] cc: Yuri Lam D.O.; Physician,Non-Staff M.DTaylor [place] [address] Patient Name: HAWK KING MRN: [id number] date: 2000 Sex: F Assigned Patient Location: [facility] Current Patient Location: [place] Accession/Order Number: [id number] Exam Date: 08/17/2024 10:39 Report Date: 08/17/2024 [...] Hunt M.D. 08/17/2024 10:41 AM Dictation Location: [place] [address] Electronically authenticated by: [id number] Y Date: 08/17/2024 10:41 Dictated By: Jing Hunt M.D. Signed By: 08/17/24 1044 DD/ 1041 TD/TT: Cut Off Saw Operator: Procedure Note Radiology, Radiologist, MD - 08/17/2024 [place] [address] Ultrasound Report Signed Patient: HAWK KING CMR#: [id number] : 2000Acct:[id number] Age/Sex: 23 / FADM Date: 08/16/24 Loc: US Attending Dr: Yuri Lam D.O. Ordering Physician: Yuri Lam D.O. Date of Service: 08/16/24 Procedure(s): US OB BPP w non-stress Accession Number(s): [id number] cc: Yuri Lam D.O.; Physician,Non-Staff Sindy [address] [place] [address] Patient Name: HAWK KING MRN: [id number] date: 2000 Sex: F Assigned Patient Location: [facility] Current Patient Location: [place] Accession/Order Number: [id number] Exam Date: 08/17/2024 10:39 Report Date: 08/17/2024 [...] Hunt M.D. 08/17/2024 10:41 AM Dictation Location: [place] [address] Electronically authenticated by: [id number] Y Date: 0:41 Dictated By: Jing Hunt M.D. Signed By:08/17/24 1044 DD/ 1041 TD/TT: Cut Off Saw Operator: us Yuri Carole DO [facility] Final Result documented in this encounter Visit Diagnoses Not on filedocumented in this encounter Care Teams Medical Apparatus Model Maker Relationship Specialty Start Date End Date Orlando Ash MD [address] [place] [address] PCP - General Family Medicine 07/03/22 documented as of this encounter
== END 2024-08-23 15:01 | disposition home or self-care (01) ==
LOC: LAB 15:00
PROVIDERS: Visit Provider Obstetrics & Gynecology
DX: Z34.93 Encounter for supervision of normal pregnancy, unspecified, third trimester (principal)
CPT/HCPCS: 87081

== ENCOUNTER 2024-08-23 20:09 | Outpatient (OUT) | payer MEDICAID, SELFPAY ==
--- OUTSIDE RECORDS SUMMARY | 2024-08-09 08:30 | XMS_ITS | Encounter Summary ---
Author Organization [facility] Address [address] [place] [address] Care Team Providers Care Paper Latcher Name Role Phone Orlando Ash MD Primary Care Provider [phone] Reason for Visit * Reason Comments Routine Visit Encounter Details Date Type Department Care Team (Late st Contact Info) Description 08/09/2024 8:30 AM EDT Routine [facility] BCP OB [address] [facility] [place] [address] Megan Diego, SPOOL WINDER [address] [facility] [place] [address] Third trimester ([facility]); 33 weeks gestation of ([facility]) Social History Tobacco Use Types Packs/Day Years [...] this encounter Progress Notes * Megan Diego, SPOOL WINDER - 08/09/2024 8:30 AM EDT Reason for [...] day smoker Heartburn History of miscarriage, currently ([facility]) HISTORY PAST MEDICAL HISTORY SOCIAL HISTORY Past Medical History: Diagnosis Date Carrier of spinal muscular atrophy Current every day smoker Heartburn History of miscarriage, currently ([facility]) Social History Tobacco Use Smoking status: Every [...] nursing note reviewed. Exam conducted with a clerical office worker present. Vitals: Estimated body mass index is 29.01 kg/m² as calculated from the following: Height as of 03/12/22: 5' 3 . Weight as of this encounter: 163 lb 12 oz. BP: 110/58 No LMP recorded. Patient is . ASSESSMENT & PLAN ICD-10-CM 1. Third trimester ([facility]) Z34.93 POCT urinalysis dipstick manually resulted 2. 33 weeks gestation of ([facility]) Z3A.33 Return OB: Patient presents today for [...] Care Team (Late st Contact Info) Description 08/30/2024 11:00 AM EDT Routine [facility] BCP OB [address] [place] [address] Eusebio Lam, [address] [place] [address] documented as of this encounter Procedures Procedure [...] this encounter Visit Diagnoses Diagnosis Third trimester ([facility]) state, incidental 33 weeks gestation of ([facility]) documented in this encounter Care Teams Paper Latcher Relationship Specialty Start Date End Date Orlando Ash MD [address] [place] [address] PCP - General Family Medicine 07/03/22 documented as of this encounter
--- OUTSIDE RECORDS SUMMARY | 2024-08-17 10:00 | XMS_ITS | Encounter Summary ---
Author Organization [facility] Address [address] [place] [address] Care Team Providers Care Road Mechanic Name Role Phone Orlando Ash MD Primary Care Provider [phone] Reason for Visit * Reason Comments Routine Visit Encounter Details Date Type Department Care Team (Late st Contact Info) Description 08/17/2024 10:00 AM EDT Routine [facility] [address] [place] [phone] Eusebio Lam, DO [address] [facility] [place] [address] Third trimester ([facility]); 35 weeks gestation of ([facility]) Social History Tobacco Use Types Packs/Day [...] this encounter Progress Notes * Sunshine Ye, WATER FILTERER - 08/17/2024 10:00 AM EDT Reason for [...] History of miscarriage, currently ([facility]) HISTORY PAST MEDICAL HISTORY SOCIAL HISTORY Past Medical History: Diagnosis Date Carrier of spinal muscular atrophy Current every day smoker Heartburn History of miscarriage, currently ([facility]) Social History Tobacco Use Smoking status: [...] nursing note reviewed. Exam conducted with a aggregate conveyor operator present. Vitals: Estimated body mass index is 28.7 kg/m² as calculated from the following: Height as of 03/12/22: 5' 3 . Weight as of this encounter: 162 lb. BP: 108/60 No LMP recorded. Patient is . ASSESSMENT & PLAN ICD-10-CM 1. Third trimester ([facility]) Z34.93 POCT urinalysis dipstick manually resulted 2. 35 weeks gestation of ([facility]) Z3A.35 POCT urinalysis dipstick manually resulted [...] AM EDT Routine [facility] [address] [place] [address] Eusebio Lam DO [address] [facility] [place] [address] documented as of this encounter Procedures Procedure Name Priority Date/Time Associated Diagnosis Comments POCT URINALYSIS DIPSTICK Routine 08/17/2024 10:08 AM EDT Third trimester ([facility]) 35 weeks gestation of ([facility]) documented in this encounter Results * [...] this encounter Visit Diagnoses Diagnosis Third trimester ([facility]-H[facility]) state, incidental 35 weeks gestation of ([facility]-HCC) documented in this encounter Care Teams Road Mechanic Relationship Specialty Start Date End Date Orlando Ash MD [address] [place] [address] PCP - General Family Medicine 07/03/22 documented as of this encounter
--- OUTSIDE RECORDS SUMMARY | 2024-08-23 13:00 | XMS_ITS | Encounter Summary ---
Author Organization [facility] Address [address] [place] [address] Care Team Providers Care Internal Medicine Nurse Practitioner Name Role Phone Orlando Ash MD Primary Care Provider [phone] Reason for Visit * Reason Comments Routine Visit Encounter Details Date Type Department Care Team (Late st Contact Info) Description 08/23/2024 1:00 PM EDT Routine [facility] OB [address] [place] [address] Eusebio Lam, DO [address] [facility] [place] [address] Third trimester ([facility]); 35 weeks gestation of ([facility]) Social History Tobacco Use Types Packs/Day [...] this encounter Progress Notes * Jing Moncada, FUR GLAZER - 08/23/2024 1:00 PM EDT Reason for [...] day smoker Heartburn History of miscarriage, currently ([facility] HISTORY PAST MEDICAL HISTORY SOCIAL HISTORY Past Medical History: Diagnosis Date Carrier of spinal muscular atrophy Current every day smoker Heartburn History of miscarriage, currently ([facility]) Social History Tobacco Use Smoking [...] nursing note reviewed. Exam conducted with a launch operator present. Vitals: Estimated body mass index is 29.94 kg/m² as calculated from the following: Height as of 03/12/22: 5' 3 . Weight as of this encounter: 169 lb. BP: 102/60 No LMP recorded. Patient is . ASSESSMENT & PLAN ICD-10-CM 1. Third trimester ([facility]) Z34.93 CULTURE, GROUP B STREP WITH SUSCEPTIBLITY CULTURE, GROUP B STREP WITH SUSCEPTIBLITY 2. 35 weeks gestation of ([facility]) Z3A.35 Patient is doing well but [...] AM EDT Routine [facility] [address] [facility] [place] [address] Eusebio Lam DO [address] [place] [address] Scheduled Orders Name Type Priority Associated Diagnoses Orde r Schedule CULTURE, GROUP B STREP WITH SUSCEPTIBLITY Lab Routine Third trimester ([facility]) Expected: 08/23/2024, Expires: 08/23/2025 documented as of this encounter Visit Diagnoses Diagnosis Third trimester ([facility]) state, incidental 35 weeks gestation of ([facility]) documented in this encounter Care Teams Internal Medicine Nurse Practitioner Relationship Specialty Start Date End Date Orlando Ash MD [address] [place], [place] [id number] PCP - General Family Medicine 07/03/22 documented as of this encounter
--- OUTSIDE RECORDS SUMMARY | 2024-08-23 20:11 | XMS_ITS | Encounter Summary ---
Author Organization [facility] Address [address] [facility] [place] [address] Care Team Providers Care Manager Activities Name Role Phone Janee Del Valle MD Unavailable Orlando Ash MD Primary Care Provider [phone] Encounter Details Date Type Department Care Team (Late st Contact Info) Description 08/03/2022 Abstract [facility] BCP OB [address] [facility] [place] [address] Eusebio Lam, [address] [place], [place] [address] Social History Tobacco Use Types Packs/Day Years [...] AM EDT Routine [facility] BCP OB [address] [facility] [address] Eusebio Lam DO [facility] [place] [address] documented as of this encounter Visit Diagnoses Not on filedocumented in this encounter Care Teams Manager Activities Relationship Specialty Start Date End Date Janee Del Valle MD [address] [place] [address] PCP - [place] [employer] 03/11/22 Orlando Ash MD [address] [place] [address] PCP - General Family Medicine 07/03/22 documented as of this encounter
--- OUTSIDE RECORDS SUMMARY | 2024-08-23 20:11 | XMS_ITS | Encounter Summary ---
Author Organization [facility] Address [address] [place] [address] Care Team Providers Care B2B Sales Representative Name Role Phone Orlando Ash MD Primary Care Provider [phone] Encounter Details Date Type Department Care Team (Late st Contact Info) Description 01/04/2023 Clinisync Result Encounter [facility] External Department Unsolicited Yuri Lam [facility] [place] [address] Social History Tobacco Use Types Packs/Day Years [...] Routine [facility] BCP OB [address] [place] [phone] Yuri Lam DO [facility] [place] [address] documented as of this encounter Procedures Procedure Name Priority Date/Time Associated Diagnosis Comments US OB GROWTH 01/04/2023 3:14 PM EST documented in this encounter Results * US OB GROWTH (01/04/2023 3:14 PM EST) Anatomical Region Laterality Modality Other 01/04/2023 3:14 PM EST Narrative 01/04/2023 3:14 PM EST [address] [address] Ultrasound Report Signed Patient: HAWK KING MR#: [id number] : 2000 Acct:[id number] Age/Sex: 22 / F ADM Date: 01/04/23 Loc: US Attending Dr: Yuri Lam D.O. Ordering Physician: Yuri Lam D.O. Date of Service: 01/04/23 Procedure(s): US OB growth Accession Number(s): [id number] cc: Yuri Lam D.O.; Physician,Non-Staff M.Sigrid [address] [place] [address] Patient Name: HAWK KING MRN: [id number] date: 2000 Sex: F Assigned Patient Location: Current Patient Location: [facility] Accession/Order Number: [id number] Exam Date: 01/04/2023 12:57 Report Date: 01/04/2023 [...] Signed By: 01/04/23 1516 DD/ 13 TD/TT: Rollway Worker: Procedure Note Radiology, Radiologist, MD - 01/04/2023 [place] [address] Ultrasound Report Signed Patient: HAWK KING CMR#: [id number] : 2000Acct:[id number] Age/Sex: 22 / FADM Date: 01/04/23 Loc: US Attending Dr: Yuri Lam D.O. Ordering Physician: Yuri Lam D.O. Date of Service: 01/04/23 Procedure(s): US OB growth Accession Number(s): [id number] cc: Yuri Lam D.O.; Physician,Non-Staff [place]indy The [place] [id number] Patient Name: HAWK KING MRN: [id number] date: 2000 Sex: F Assigned Patient Location: US Current Patient Location: [facility] Accession/Order Number: [id number] Exam Date: 01/04/2023 12:57 Report Date: 01/04/2023 [...] Mcwilliams M.D. Signed By:01/04/231515 DD/ 13 TD/TT: Rollway Worker: us Yuri Carole DO [facility] Final Result documented in this encounter Visit Diagnoses Not on filedocumented in this encounter Care Teams B2B Sales Representative Relationship Specialty Start Date End Date Orlando Ash MD [address] [place] [address] PCP - General Family Medicine 07/03/22 documented as of this encounter
--- OUTSIDE RECORDS SUMMARY | 2024-08-23 20:11 | XMS_ITS | Encounter Summary ---
Author Organization [facility] Address [address] [facility] [place] [address] Care Team Providers Care Slope Tender Name Role Phone Orlando Ash MD Primary Care Provider [phone] Encounter Details Date Type Department Care Team (Late st Contact Info) Description 05/30/2024 Results Follow-Up [facility] BCP OB [address] [facility] [place] [address] Carol Winter LPN [facility] [place] [address] Social History Tobacco Use Types Packs/Day Years [...] Description 08/30/2024 11:00 AM EDT Routine [facility] OB [address] [place] [address] Eusebio Lam, DO [address] [place] [address] documented as of this encounter Visit Diagnoses Not on filedocumented in this encounter Care Teams Slope Tender Relationship Specialty Start Date End Date Orlando Ash MD [address] [place], [place] [phone] PCP - General Family Medicine 07/03/22 documented as of this encounter
--- OUTSIDE RECORDS SUMMARY | 2024-08-23 20:11 | XMS_ITS | Encounter Summary ---
Author Organization [facility] Address [address] [facility] [place] [address] Care Team Providers Care Children'S Lunchroom Supervisor Name Role Phone Orlando Ash MD Primary Care Provider [phone] Encounter Details Date Type Department Care Team (Late Contact Info) Description 02/25/2024 Abstract [facility] [address] [place] [phone] Eusebio Lam DO [address] [place] [id number] Social History Tobacco Use Types Packs/Day Years [...] Description 08/30/2024 11:00 AM EDT Routine [facility] [address] [place] [phone] Eusebio Lam DO [facility] [place], [place] [phone] documented as of this encounter Visit Diagnoses Not on filedocumented in this encounter Care Teams Children'S Lunchroom Supervisor Relationship Specialty Start Date End Date Orlando Ash MD [address] [place] [address] PCP - General Family Medicine 07/03/22 documented as of this encounter
--- OUTSIDE RECORDS SUMMARY | 2024-08-23 20:11 | XMS_ITS | Clinical Summary ---
Author Organization [employer] Address [id number] [address] [place] [address] Care Team Providers Care [employer] Media Specialist Name Role Phone Orlando Ash MD Primary Care Provider [phone] Allergies No known active allergies Medications [id number]-odus-lxfjhd 9-dha 31 mg iron- 1 mg-200 mg [...] AM EDT Office Visit Maternal- Medicine at [facility] [address] [place] [address] Nidhi Nicole MD 22 weeks gestation of (Primary Dx); History of gestational hypertension; History of delivery, currently ; Vaping nicotine dependence, non-tobacco product; Marijuana use during ; Genetic carrier 05/24/2024 9:03 AM EDT - 05/24/2024 11:59 PM EDT Hospital Encounter [facility] Imaging [address] [place] [phone] Screening, , for anatomic survey Discharge Disposition: [...] Name Priority Date/Time Associated Diagnosis Comments [facility] COMPREHENSIVE ANATOMIC SURVEY Routine 05/24/2024 10:46 AM EDT Screening, , for anatomic survey CHLAMYDIA/GC BY PCR SINDI SWAB Routine 06/24/2021 8:36 AM EDT care in first trimester PAP SMEAR Routine 02/25/2021 12:56 PM EST Cervical cancer screening Well woman exam from Last 3 Months or Most Recently Relevant to Health Maintenance Results * US [facility] COMPREHENSIVE ANATOMIC SURVEY (05/24/2024 10:46 AM EDT) Anatomical Region Laterality Modality OB-LINE CONSTRUCTION ENGINEER Ultrasound 05/24/2024 9:25 AM EDT Narrative 05/24/2024 5:38 PM EDT NAME: CHRISTINE ONOFRE : 2000 SEX: F Accession Number: [id number] ORDERING PHYSICIAN: VELMA GARCIA REFERRING PHYSICIAN: YURI REDDY Coding ----- --------- Procedures 60033: Ultrasound, uterus, real time with image documentation, and maternal evaluation plus detailed anatomic examination, transabdominal approach;single or first gestation 87784: Transvaginal Ultrasound (OB) Indication ----- --------- Screening for Anatomic Survey , Screening for cervical length, history of thyroid disease, History of gestational hypertension, History of prior with delivery, Abnormal finding on screening of mother - + CF & SMA carrier, Smoking in - vapes, marijuana use in . Supervision of high risk - Hypoplastic NB History ----- --------- OB History 5. Para 2 [id number] Current ----- --------- Cell free DNA Low [...] 1 lb 10 oz EFW by Hadlock ([id number]) Head / Face / Neck Biometry: Cephalic index 0.72 3% Nicolaides Test Deck Supervisor 2.5 mm CM 6.3 mm 69% [...] view. RVOT view. LVOT view. 3-vessel view. 9-ymdnzi-pktrwuy view. Situs. Aortic arch view. Bicaval view. [...] structural abnormalities. Recommendations ----- --------- Please see [facility] documentation from today. Subsequent follow up or other follow up as clinically determined by primary OB provider unless otherwise specified by M. Results forwarded to ordering provider so they can follow up with the patient as necessary. Procedure Note Nidhi Nicole MD - 05/24/2024 NAME: CHRISTINE ONOFRE : 2000 SEX: F Accession Number: [id number] ORDERING PHYSICIAN: VELMA GARCIA REFERRING PHYSICIAN: YURI REDDY Coding ----- --------- Procedures 15509: Ultrasound, uterus, real time with imagedocumentation, and maternal evaluation plus detailed anatomic examination, transabdominalapproach;single or first gestation 06421: Transvaginal Ultrasound (OB) Indication ----- --------- Screening for Anatomic Survey , Screening for cervical length, history ofthyroid disease, History of gestational hypertension, History of prior with delivery, Abnormalfinding on screening of mother - + CF & SMA carrier, Smoking in - vapes, marijuana use in .Supervision of high risk - Hypoplastic NB History ----- --------- OB History 5. Para 2 [id number] Current ----- --------- Cell free DNA Low [...] 1 lb 10 oz EFW by Hadlock ([id number]) Head / Face / Neck Biometry: Cephalic index 0.72 3% Nicolaides Test Deck Supervisor 2.5 mm CM 6.3 mm 69% [...] 4-chamber view. RVOT view. LVOT view. 3-vessel view.6-squgcz-sbxnvmz view. Situs. Aortic arch view. Bicaval view. [...] structural abnormalities. Recommendations ----- --------- Please see [facility] documentation from today. Subsequent follow up or other follow up as clinically determined byprimary OB provider unless otherwise specified by [facility]. Results forwarded to ordering provider so they can follow up with thepatient as necessary. Velma Garcia MD [facility] US ORDERABLES Final Result * Chlamydia/GC by PCR Sindi Swab (06/24/2021 8:36 AM EDT) Specimen source CERVICAL 10:25 AM EDT [facility] Chlamydia DNA PCR Negative Negative^N egative 06/26/2021 6:02 AM EDT [facility] Comment: Chlamydia trachomatis not detected by nucleic acid amplification. This does not exclude the possibility of infection because results are dependent on adequate specimen collection. Gonorrhea DNA PCR Negative Negative^N egative 06/26/2021 6:02 AM EDT [facility] Comment: Neisseria gonorrhoeae not detected by nucleic acid amplification. This does not exclude the possibility of infection because results are dependent on adequate specimen collection. GENS 06/24/2021 8:36 AM EDT 06/25/2021 10:25 AM EDT us Lima Gonzalez APRN-[facility] - GENERAL O RDERABLES Final Result [facility] [address] [place] [address] * Pap Smear (02/25/2021 12:56 PM EST) 02/25/2021 12:5 6 PM EST 02/26/2021 12:58 PM EST Narrative COPATH - 02/27/2021 2:27 PM EST [facility] [address] [place] [address] Gynecologic Cytology Consultation Patient Name: HAWK KING : 2000 (Age: 20) Gender: F Taken: 02/25/2021 Reported: 02/27/2021 Physician(s): Lima Gonzalez CNM ([phone]) Copy To: Med. Rec. #: [id number] Acct: # [id number] Final Cytologic Interpretation ThinPrep Pap Test (Cervical): Satisfactory for evaluation. A transformation zone component was not noted. NEGATIVE FOR INTRAEPITHELIAL LESION OR MALIGNANCY. Shift in missy suggestive of bacterial vaginosis. Comment: This ThinPrep slide could not be successfully imaged by the [employer] ThinPrep Imaging System so it was manually screened. [facility] [place]/27/2021 Interpretation performed at [facility], [address] [place] [address], License number: [id number]. Electronically Signed Out By PAUL Madrigal(ASCP) Date of Last Menstrual Period: 02/20/2021 Other Clinical Conditions: Z12.4 Screening for malignant neoplasm of cervix Z01.419 Furniture Removalist'S Assistant exam wo/abn findings Source of Specimen ThinPrep Pap Test (Cervical) Thin Prep Pap (LINE CONSTRUCTION ENGINEER) Fee Code(s): G0145, G0145 <CR>, G0123 The Pap test is a screening test with an inherent, but low, probability of error. The Pap test is primarily effective for the diagnosis and prevention of squamous cell carcinoma. Regular screening is critical for prevention. ThinPrep liquid-based slides, which meet the Staff Genetic Counselor criteria for automated screening, have been screened by the ThinPrep Imaging System (as of 10/25/06) along with an additional manual rescreening by a analysis analyst and, if indicated, by a pathologist. Lima Gonzalez MANAGER [facility] PATHOLOGY/CYTOLOGY ORDER SYED Final Result COPATH from Last 3 Months or Most Recently Relevant to Health Maintenance Insurance [employer] Care Teams High [employer] Library Media Specialist Relationship Specialty Start Date End Date Orlando Ash MD [address] [place] [id number] PCP - General Family Medicine 06/09/18
--- OUTSIDE RECORDS SUMMARY | 2024-08-23 20:11 | XMS_ITS | Encounter Summary ---
Author Organization [facility] Address [address] [facility] [place] [address] Care Team Providers Care Potline Monitor Name Role Phone Janee Del Valle MD Unavailable Orlando Ash MD Primary Care Provider [phone] Encounter Details Date Type Department Care Team (Late Contact Info) Description 09/03/2022 Abstract [facility] OB [address] [facility] [address] Radha Avila PA [address] [place] [address] [address] [place], [place] [address] Social History Tobacco Use Types Packs/Day Years [...] Description 08/30/2024 11:00 AM EDT Routine [facility] OB [address] [facility] [address] Eusebio Lam, [address] [place], [place] [address] documented as of this encounter Visit Diagnoses Not on filedocumented in this encounter Care Teams Potline Monitor Relationship Specialty Start Date End Date Janee Del Valle MD [address] [place] [address] PCP - Sri Gallegos 03/11/22 Orlando Ash MD [address] [place], [place] [phone] PCP - General Family Medicine 07/03/22 documented as of this encounter
--- OUTSIDE RECORDS SUMMARY | 2024-08-23 20:11 | XMS_ITS | Encounter Summary ---
Author Organization [facility] Address [address] [facility] [[email or web address] [place] [address] Care Team Providers Care Manager Location Name Role Phone Orlando Ash MD Primary Care Provider [phone] Encounter Details Date Type Department Care Team (Late Contact Info) Description 03/08/2024 Abstract [facility] [address] [place] [address] Eusebio Lam DO [address] [place] [phone] Social History Tobacco Use Types Packs/Day Years [...] Description 08/30/2024 11:00 AM EDT Routine [facility] OB [address] [place] [address] Eusebio Lam DO [facility] [place], [place] [address] documented as of this encounter Visit Diagnoses Not on filedocumented in this encounter Care Teams Manager Location Relationship Specialty Start Date End Date Orlando Ash MD [address] [place] [address] PCP - General Family Medicine 07/03/22 documented as of this encounter
--- OUTSIDE RECORDS SUMMARY | 2024-08-23 20:11 | XMS_ITS | Encounter Summary ---
Author Organization [employer] Address [id number] [address] [place] [address] Care Team Providers Care Planning Intern Name Role Phone Orlando Ash MD Primary Care Provider [phone] Encounter Details Date Type Department Care Team (Late st Contact Info) Description 06/06/2021 Telephone [facility] Obstetrics/[facility]necology [address] [place] [phone] Tory Calloway MA Social History Tobacco Use [...] documented as of this encounter Care Teams Planning Intern Relationship Specialty Start Date End Date Orlando Ash MD [address] [place] [address] PCP - General Family Medicine 06/09/18 documented as of this encounter
--- OUTSIDE RECORDS SUMMARY | 2024-08-23 20:11 | XMS_ITS | Clinical Summary ---
Author Organization [facility] Address [address] [place] [address] Care Team Providers Care Illuminator Name Role Phone Ann-Marie Ash MD Primary Care Provider [phone] Allergies No known active allergies Medications MV-Min-Fe Fum-FA-DHA ( 1 PO) Take 1 each by mouth Daily Active Active Problems Problem Noted Date Diagnosed Date Missed menses 07/02/2022 Estimated Date of Delivery Comme nts Yes 09/21/2024 Based on Ultraso und Encounters Date Type Department Care Team Description 08/23/2024 1:00 PM EDT Routine [facility] OB [address] [place] [address] Yuri Lam, Third trimester ([facility]); 35 weeks gestation of ([facility]) 08/23/2024 Bamboo flowsheet [facility] [place] [phone] Yuri Lam DO 08/22/2024 Clinisync Result Encounter [facility] External Department Unsolicited Yuri Lam, 08/17/2024 10:00 AM EDT Routine [facility] [place] [address] Yuri Lam, Third trimester ([facility]); 35 weeks gestation of ([facility]) 08/17/2024 Clinisync Result Encounter [facility] External Department Unsolicited Yuri Lam, DO 08/17/2024 Bamboo flowsheet [facility] OB [address] [facility] [address] Yuri Lam, DO 08/09/2024 8:30 AM EDT Routine [facility] OB [address] [place] [address] [place] [address] Megan Diego, HEAD WAITER/WAITRESS Third trimester ([facility]); 33 weeks gestation of ([facility]) 08/09/2024 Clinisync Result Encounter [facility] External Department Unsolicited Carole, Yuri, DO 08/09/2024 Clinisync Result Encounter [facility] External Department Unsolicited Carole, Yuri, DO 08/09/2024 Bamboo flowsheet [facility] OB [address] [facility] [address] Megan Diego, HEAD WAITER/WAITRESS 08/03/2024 Clinisync Result Encounter [facility] External Department Unsolicited CaroleJoey, DO 08/03/2024 Clinisync Result Encounter [facility] External Department Unsolicited CaroleYuri, DO 07/26/2024 11:10 AM EDT Routine [facility] OB [address] [place] [address] [place] [address] Yuri Lam, DO Third trimester ([facility]); 31 weeks gestation of ([facility]) 07/26/2024 Clinisync Result Encounter [facility] External Department Unsolicited CaroleYuri, DO 07/26/2024 Bamboo flowsheet [facility] OB [address] [place] [address] [place] [address] Yuri Lam, DO 07/13/2024 10:30 AM EDT Routine [facility] [address] [place] [address] [place] [address] Yuri Lam, DO Third trimester ([facility]); 30 weeks gestation of ([facility]); H/O delivery, currently ([facility]) 07/13/2024 Bamboo flowsheet [facility] [address] [place] [address] [place] [address] Yuri Lam DO 06/28/2024 10:10 AM EDT Routine [facility] [address] [place] [address] Radha Avila PA Second trimester ([facility]); 27 weeks gestation of ([facility]) 06/28/2024 9:30 AM EDT Ancillary Procedure [facility] [address] [place] [address] H/O delivery, currently ([facility]) 06/13/2024 11:40 AM EDT Routine [facility] [address] [place] [address] Yuri Lam DO Second trimester ([facility]); 25 weeks gestation of ([facility]); H/O delivery, currently ([facility]); Vapes nicotine containing substance 06/13/2024 Bamboo flowsheet [facility] [address] [place] [address] Yuri Lam DO 05/30/2024 Results Follow-Up [facility] [address] [place] [address] Carol Winter LPN 05/25/2024 Orders Only [facility] [address] [place] [address] Carol Winter STICK WELDER 05/25/2024 Abstract [facility] [address] [place] [address] Yuri Lam DO from Last 3 Months [...] AM EDT Routine [facility] [address] [facility] [place] [address] Yuri Lam, DO [address] [place] [address] [place] [address] Procedures Procedure Name Priority Date/Time Associated Diagnosis Comments [facility] URINE MICROSCOPIC ONLY Routine 08/22/2024 9:32 AM EDT TB[facility] UA (CLEAN/CATCH) CHIEF NUCLEAR MEDICINE TECHNOLOGIST/MICRO IF IND. Routine 08/22/2024 9:32 AM EDT US OB BPP W NON-STRESS 08/17/2024 10:41 AM EDT POCT URINALYSIS DIPSTICK Routine 08/17/2024 10:08 AM EDT Third trimester ([facility]) 35 weeks gestation of ([facility]) US OB BPP W NON-STRESS 08/09/2024 1:42 PM EDT US OB CERVICAL LENGTH 08/09/2024 1:33 PM EDT POCT URINALYSIS DIPSTICK Routine 08/09/2024 8:40 AM EDT Third trimester ([facility]) US OB BPP W NON-STRESS 08/03/2024 8:32 AM EDT US OB GROWTH 08/03/2024 8:32 AM EDT ALL CBC WITH AUTO DIFF Routine 12:13 PM EDT MLR HEMOGLOBIN A1C Routine 07/26/2024 12 :13 PM EDT POCT URINALYSIS DIPSTICK Routine 07/26/2024 11:35 AM EDT Third trimester ([facility]) POCT URINALYSIS DIPSTICK Routine 06/28/2024 10:19 AM EDT Second trimester ([facility]) US OB FOLLOW UP TRANSABDOMINAL APPROACH Routine 06/28/2024 10:08 AM EDT H/O delivery, currently ([facility]) US OB 14+ WEEKS ANATOMY SCAN 05/24/2024 [...] NONE SEEN #/LPF [facility] URINE CULTURE INDICATED [facility] [place] [place] [facility] 08/22/2024 9:32 AM EDT 08/22/2024 9:51 AM EDT Narrative [facility] - 08/22/2024 10:25 AM EDT us Yuri Carole DO [facility] Final Result [facility] * (ABNORMAL) [facility] UA (CLEAN/CATCH) CHIEF NUCLEAR MEDICINE TECHNOLOGIST/MICRO IF IND. (08/22/2024 9:32 AM EDT) COLOR [...] DO CLINIS[facility]NC Final Result Performing Organization Address [facility]/ZIP Co de Phone Number [facility] * US OB BPP W NON-STRESS (08/17/2024 10:41 AM EDT) Only the most recent of3 resultswithin the time period is included. Anatomical Region Laterality Modality Other 08/17/2024 10:4 1 AM EDT Narrative 08/17/2024 10:44 AM EDT [address] [address] Ultrasound Report Signed Patient: HAWK KING MR#: [id number] : 2000 Acct:[id number] Age/Sex: 23 / F ADM Date: 08/16/24 Loc: US Attending Dr: Yuri Lam D.O. Ordering Physician: Yuri Lam D.O. Date of Service: 08/16/24 Procedure(s): US OB BPP w non-stress Accession Number(s): [id number] cc: Yuri Lam D.O.; Physician,Non-Staff [place] [address] Patient Name: HAWK KING MRN: [facility]:[id number] date: 2000 Sex: F Assigned Patient Location: [facility] [place] [facility]ion/Order Number: [id number] Exam Date: 08/17/2024 10:39 Report Date: 08/17/2024 [...] fluid greater than 2 cm [Y] 2/2 JACKLEYN: 19.6 cm. This is in upper normal range. Total score: 8/8 US/US OB BPP w non-stress IMPRESSION: NORMAL BIOPHYSICAL PROFILE. SUSPECTED NUCHAL CORD. Impression dictated by: Jing Hunt M.D. 08/17/2024 10:41 AM Dictation Location: [place] [address] Electronically authenticated by: [id number] Y Date: 08/17/2024 10:41 Dictated By: Jing Hunt M.D. Signed By: 08/17/24 1044 DD/ 1041 TD/TT: Concrete Curer: Procedure Note Radiology, Radiologist, - 08/17/2024 [place] [address] Ultrasound Report Signed Patient: HAWK KING CMR#: [id number] : 2000Acct:[id number] Age/Sex: 23 / FADM Date: 08/16/24 Loc: US Attending Dr: Yuri Lam D.O. Ordering Physician: Yuri Lam D.O. Date of Service: 08/16/24 Procedure(s): US OB BPP w non-stress Accession Number(s): [id number] cc: Yuri Lam D.O.; Physician,Non-Staff [place] The [place] [id number] Patient Name: HAWK KING MRN: [facility]:[id number] date: 2000 Sex: F Assigned Patient Location: [facility] [place] [facility] [place]ion/Order Number: [id number] Exam Date: 08/17/2024 10:39 Report Date: 08/17/2024 [...] Hunt M.D. 08/17/2024 10:41 AM Dictation Location: [place] [address] Electronically authenticated by: [id number] Y Date: 0:41 Dictated By: Jing Hunt M.D. Signed By:08/17/24 1044 DD/ 1041 TD/TT: Concrete Curer: us Yuri Carole DO [facility] IMAGING Final [...] PM EDT Narrative 08/09/2024 1:36 PM EDT [address] [address] Ultrasound Report Signed Patient: HAWK KING MR#: [id number] : 2000 Acct:[id number] Age/Sex: 23 / F ADM Date: 08/09/24 Loc: [facility] 250-[address]: Yuri Lam D.O. Ordering Physician: Yuri Lam D.O. Date of Service: 08/09/24 Procedure(s): US OB cervical length Accession Number(s): [id number] cc: Yuri Lam D.O.; Physician,Non-Staff [place] [address] Patient Name: HAWK KING MRN: [facility]:[id number] date: 2000 Sex: F Assigned Patient Location: [facility] Current Patient Location: [facility] Accession/Order Number: [id number] Exam Date: 08/09/2024 13:32 Report Date: 08/09/2024 [...] Jr., D.O. 08/09/2024 1:33 PM Dictation Location: [place] [address] Electronically authenticated by: [id number] Y Date: 08/09/2024 13:33 Dictated By: Wojciech Farah M.D. Signed By: 08/09/24 1336 DD/ 1333 TD/TT: Concrete Curer: Procedure Note Radiology, Radiologist, - 08/09/2024 [place] [address] Ultrasound Report Signed Patient: HAWK KING CMR#: [id number] : 2000Acct:[id number] Age/Sex: 23 / FADM Date: 08/09/24 Loc: [facility] 250-[address]: Yuri Lam D.O. Ordering Physician: Yuri Lam D.O. Date of Service: 08/09/24 Procedure(s): US OB cervical length Accession Number(s): [id number] cc: Yuri Lam D.O.; Physician,Non-Staff [place] [address] Patient Name: HAWK KING MRN: [id number]:[id number] date: 2000 Sex: F Assigned Patient Location: [facility] Current Patient Location: [facility] Accession/Order Number: [id number] Exam Date: 08/09/2024 13:32 Report Date: 08/09/2024 [...] Jr., D.O. 08/09/2024 1:33 PM Dictation Location: [place] [address] Electronically authenticated by: [id number] Y Date: 3:33 Dictated By: Wojciech Farah M.D. Signed By:08/09/24 1336 DD/ 1333 TD/TT: Concrete Curer: us Yuri Lam DO [facility] IMAGING Final Result * US OB GROWTH (08/03/2024 8:32 AM EDT) Anatomical Region Laterality Modality Other 08/03/2024 8:32 AM EDT Narrative 08/03/2024 8:35 AM EDT The [address] [address] Ultrasound Report Signed Patient: HAWK KING MR#: [id number] : 2000 Acct:[id number] Age/Sex: 23 / F ADM Date: 08/02/24 Loc: US Attending Dr: Yuri Lam D.O. Ordering Physician: Yuri Lam D.O. Date of Service: 08/02/24 Procedure(s): US OB growth Accession Number(s): [id number] cc: Yuri Lam D.O.; Physician,Non-Staff [place] [id number] Patient Name: HAWK KING MRN: [id number]:[id number] date: 2000 Sex: F Assigned Patient Location: [facility] Current Patient Location: Accession/Order Number: [id number] Exam Date: 08/03/2024 08:23 Report Date: 08/03/2024 08:32 At the request of: YURI LAM DO Procedure: US OB BPP w non-stress CLINICAL INFORMATION: H/O LABOR O09.899 ULTRASOUND OB GROWTH COMPARISON: None There is a single live intrauterine gestation in cephalic presentation. There is cardiac and somatic activity. The heart rate [id number] beats per minute. The placenta is posterior. [...] Hunt M.D. 08/03/2024 8:32 AM Dictation Location: [place] [address] Electronically authenticated by: [id number] Y Date: 08/03/2024 08:32 Dictated By: Jing Hunt M.D. Signed By: 08/03/2435 DD/ TD/TT: Concrete Curer: Procedure Note Radiology, Radiologist, MD - 08/03/2024 [place] [address] Ultrasound Report Signed Patient: HAWK KING CMR#: [id number] : 2000Acct:[id number] Age/Sex: 23 / FADM Date: 08/02/24 Loc: US Attending Dr: Yuri Lam D.O. Ordering Physician: Yuri Lam D.O. Date of Service: 08/02/24 Procedure(s): US OB growth Accession Number(s): [id number] cc: Yuri Lam D.O.; Physician,Non-Staff Sindy The [place] [id number] Patient Name: HAWK KING MRN: [id number] date: 2000 Sex: F Assigned Patient Location: [facility] Current Patient Location: Accession/Order Number: [id number] Exam Date: 08/03/2024 08:23 Report Date: 08/03/2024 08:32 At the request of: YURI CAROLE DO Procedure: US OB BPP w non-stress CLINICAL INFORMATION: H/O LABOR O09.899 ULTRASOUND OB GROWTH COMPARISON: None There is a single live intrauterine gestation in cephalic presentation.There is cardiac and somatic activity. The heart rate [id number] per minute. The placenta is posterior. The [...] Hunt M.D. 08/03/2024 8:32 AM Dictation Location: [place] [address] Electronically authenticated by: [id number] Y Date: 508:32 Dictated By: Jing Hunt M.D. Signed By:08/03/24 0835 DD/ 0832 TD/TT: Concrete Curer: us Yuri Lam DO [facility] IMAGING Final Result * MLR HEMOGLOBIN A1C (07/26/2024 12:13 PM EDT) [facility] GLYCOHEMOGLOBIN A1C 4.8 4.5 - 6.2 % TB Comment: ADA RECOMMENDED LIMIT 4.0 - 6.0 ADA THERAPEUTIC TARGET < 7.0 ACTION SUGGESTED > 7.0 ESTIMATED AVERAGE GLUCOSE 91 mg/dL TB 07/26/2024 12:1 3 PM EDT 07/26/2024 12:39 PM EDT Narrative [facility] - 07/26/2024 1:18 PM EDT us Yuri Carole DO [facility] Final Result [facility] * (ABNORMAL) ALL CBC WITH AUTO DIFF (07/26/2024 12:13 PM EDT) [facility] TB WBC 10.4 4.0 - 11.0 10 [...] Yuri Carole DO [facility] Final Result [facility] * US OB follow up transabdominal [...] II, MD, PHD at 30-Jun-2024 12:16:48 PM [facility] Procedure Note Ann-Marie Tamayo MD - [...] signed by ANN-MARIE TAMAYO II, MD, PHD [id number] 12:16:48 PM [facility] us Yuri Carole DO IMG OB US PROCEDURES Final Resul t * US OB 14+ weeks anatomy scan (05/24/2024 5:38 PM EDT) Anatomical Region Laterality Modality Body Ultrasound 05/24/2024 5:38 PM EDT Narrative 05/24/2024 5:38 PM EDT THIS EXAM WAS PERFORMED AT [facility] NAME: DUNG ONOFRE : 2000 SEX: F Accession Number: [id number] ORDERING PHYSICIAN: VELMA GARCIA REFERRING PHYSICIAN: YURI LAM Coding ----- --------- Procedures 52207: Ultrasound, uterus, real time with image documentation, and maternal evaluation plus detailed anatomic examination, transabdominal approach;single or first gestation 28840: Transvaginal Ultrasound (OB) Indication ----- --------- Screening for Anatomic Survey , Screening for cervical length, history of thyroid disease, History of gestational hypertension, History of prior with delivery, Abnormal finding on screening of mother - + CF SMA carrier, Smoking in - vapes, marijuana use in . Supervision of high risk - Hypoplastic NB History ----- --------- OB History 5. Para 2 [id number] Current ----- --------- Cell free DNA Low [...] 1 lb 10 oz EFW by Hadlock (YIT-QW-PM-FL) Head / Face / Neck Biometry: Cephalic index 0.72 3% Nicolaides Equipment Maintenance Engineer 2.5 mm CM 6.3 mm 69% Nicolaides [...] view. RVOT view. LVOT view. 3-vessel view. 6-blqttw-efuchmc view. Situs. Aortic arch view. Bicaval view. [...] abnormalities. Recommendations ----- --------- Please see [facility] documentation from today. Subsequent follow up or other follow up as clinically determined by primary OB provider unless otherwise specified by [facility]. Results forwarded to ordering provider so they can follow up with the patient as necessary. The copy-to physician of this order is YURI Shore The ordering physician of this order is VELMA De La O Procedure Note Radiology, Radiologist, - 05/24/2024 THIS EXAM WAS PERFORMED AT [facility] NAME: DUNG ONOFRE : 2000 SEX: F Accession Number: [id number] ORDERING PHYSICIAN: VELMA GARCIA REFERRING PHYSICIAN: YURI LAM Coding ----- --------- Procedures 81224: Ultrasound, uterus, real time with imagedocumentation, and maternal evaluation plus detailed anatomic examination, transabdominalapproach;single or first gestation 40320: Transvaginal Ultrasound (OB) Indication ----- --------- Screening for Anatomic Survey , Screening for cervical length, history ofthyroid disease, History of gestational hypertension, History of prior with delivery, Abnormalfinding on screening of mother - + CF SMA carrier, Smoking in - vapes, marijuana use in .Supervision of high risk - Hypoplastic NB History ----- --------- OB History 5. Para 2 [id number] Current ----- --------- Cell free DNA Low [...] 1 lb 10 oz EFW by Hadlock (BNI-UK-YQ-FL) Head / Face / Neck Biometry: Cephalic index 0.72 3% Nicolaides Equipment Maintenance Engineer 2.5 mm CM 6.3 mm 69% Nicolaides [...] 4-chamber view. RVOT view. LVOT view. 3-vessel view.0-ngphtf-hekcvog view. Situs. Aortic arch view. Bicaval view. [...] abnormalities. Recommendations ----- --------- Please see [facility] documentation from today. Subsequent follow up or other follow up as clinically determined byprimary OB provider unless otherwise specified by [facility]. Results forwarded to ordering provider so they can follow up with thepatient as necessary. The copy-to physician of this order is YURI Shore The ordering physician of this order is VELMA De La O us Yuri Lam DO IMG OB US PROCEDURES Final Resul t from Last [address] [place] [address] [place] [address] [place]ID [place] Care Teams Illuminator Relationship Specialty Start Date End Date Ann-Marie Ash MD [address] [place] [address] PCP - General Family Medicine 07/03/22
--- OUTSIDE RECORDS SUMMARY | 2024-08-23 20:11 | XMS_ITS | Encounter Summary ---
Author Organization [facility] Address [address] [place] [address] Care Team Providers Care Nail Making Machine Tender Name Role Phone Orlando Ash MD Primary Care Provider [phone] Encounter Details Date Type Department Care Team (Late Contact Info) Description 02/24/2024 Abstract [facility] [address] [place] [address] Sunshine Ye LPN Social History Tobacco [...] Description 08/30/2024 11:00 AM EDT Routine [facility] [address] [place] [address] Eusebio Lam [address] [place], [place] [id number] documented as of this encounter Visit Diagnoses Not on filedocumented in this encounter Care Teams Nail Making Machine Tender Relationship Specialty Start Date End Date Orlando Ash MD [address] [place] [address] PCP - General Family Medicine 07/03/22 documented as of this encounter
--- OUTSIDE RECORDS SUMMARY | 2024-08-23 20:11 | XMS_ITS | Encounter Summary ---
Author Organization [facility] Address [address] [place] [address] Care Team Providers Care Family Law Paralegal Name Role Phone Orlando Ash MD Primary Care Provider [phone] Encounter Details Date Type Department Care Team (Late Contact Info) Description 08/17/2024 Bamboo flowsheet [facility] OB [address] [place] [address] Eusebio Lam DO [address] [place] [address] Marisa [place], [place] [address] Social History Tobacco Use Types Packs/Day Years [...] 08/30/2024 11:00 AM EDT Routine [facility] OB [address] [place] [address] Eusebio Lam [facility] [place], [facility] documented as of this encounter Visit Diagnoses Not on filedocumented in this encounter Care Teams Family Law Paralegal Relationship Specialty Start Date End Date Orlando Ash MD [address] [place] [address] PCP - General Family Medicine 07/03/22 documented as of this encounter
--- OUTSIDE RECORDS SUMMARY | 2024-08-23 20:11 | XMS_ITS | Encounter Summary ---
Author Organization [facility] Address [address] [place] [address] Care Team Providers Care Deicer Inspector Electric Name Role Phone Orlando Ash MD Primary Care Provider [phone] Encounter Details Date Type Department Care Team (Late Contact Info) Description 05/25/2024 Abstract [facility] [address] [place] [address] Eusebio Lam DO [facility] [place], [place] [address] Social History Tobacco Use Types Packs/Day Years [...] Description 08/30/2024 11:00 AM EDT Routine [facility] OB [address] [place] [address] Eusebio Lam DO [facility] [place], [place] [address] documented as of this encounter Visit Diagnoses Not on filedocumented in this encounter Care Teams Deicer Inspector Electric Relationship Specialty Start Date End Date Orlando Ash MD [address] [place] [address] PCP - General Family Medicine 07/03/22 documented as of this encounter
--- OUTSIDE RECORDS SUMMARY | 2024-08-23 20:11 | XMS_ITS | Encounter Summary ---
Author Organization [facility] Address [address] [place] [address] Care Team Providers Care [employer] Name Role Phone Orlando Ash MD Primary Care Provider [phone] Encounter Details Date Type Department Care Team (Late st Contact Info) Description 12/29/2022 Clinisync Result Encounter [facility] External Department Unsolicited Yuri Lam, [facility] [place] [address] Social History Tobacco Use Types Packs/Day Years [...] Routine [facility] OB [address] [place] [address] Yuri Lam DO [facility] [place] [address] documented as of this encounter Procedures Procedure Name Priority Date/Time Associated Diagnosis Comments US OB CERVICAL LENGTH 12/29/2022 2:24 PM EST documented in this encounter Results * US OB CERVICAL LENGTH (12/29/2022 2:24 PM EST) Anatomical Region Laterality Modality Other 12/29/2022 2:24 PM EST Narrative 12/29/2022 2:24 PM EST [address] [address] Ultrasound Report Signed Patient: HAWK KING MR#: [id number] : 2000 Acct:[id number] Age/Sex: 22 / F ADM Date: Loc: [facility] 254-[address]: Yuri Lam D.O. Ordering Physician: Yuri Lam D.O. Date of Service: 12/29/22 Procedure(s): US OB cervical length Accession Number(s): [id number] cc: Yuri Lam D.O.; Physician,Non-Staff M.Sigrid [address] [address] Patient Name: HAWK KING MRN: [id number] date: 2000 Sex: F Assigned Patient Location: [facility] Current Patient Location: [facility] Accession/Order Number: [id number] Exam Date: 12/29/2022 13:06 Report Date: 12/29/2022 [...] Signed By: 12/29/22 1427 DD/ 1424 TD/TT: Elevator Runner: Procedure Note Radiology, Radiologist, MD - 12/29/2022 [place] [address] Ultrasound Report Signed Patient: HAWK KING CMR#: [id number] : 2000Acct:[id number] Age/Sex: Date: Loc: [facility] 254-[address]: Yuri Lam D.O. Ordering Physician: Yuri Lam D.O. Date of Service: 12/29/22 Procedure(s): US OB cervical length Accession Number(s): [id number] cc: Yuri Lam D.O.; Physician,Non-Staff Sindy The [place] [id number] Patient Name: HAWK KING MRN: [id number] date: 2000 Sex: F Assigned Patient Location: [facility] Current Patient Location: [facility] Accession/Order Number: [id number] Exam Date: 12/29/2022 13:06 Report Date: 12/29/2022 [...] M.D. Signed By:12/29/22 1427 DD/ 1424 TD/TT: Elevator Runner: us Yuri Lam DO [facility] IMAG[facility] Final Result documented in this encounter Visit Diagnoses Not on filedocumented in this encounter Care Teams [employer] Relationship Specialty Start Date End Date Orlando Ash MD [address] [place] [address] PCP - General Family Medicine 07/03/22 documented as of this encounter
--- OUTSIDE RECORDS SUMMARY | 2024-08-23 20:11 | XMS_ITS | Encounter Summary ---
Author Organization Info s tem Address [id number] [address] [place] [address] Care Team Providers Care Sign Carpenter Name Role Phone Orlando Ash MD Primary Care Provider [phone] Encounter Details Date Type Department Care Team (Late st Contact Info) Description 07/21/2021 Orders Only [facility] [address] [facility] [address] [place] [phone] Genny Mosquera, MARTY care in first trimester; [...] documented as of this encounter Care Teams Sign Carpenter Relationship Specialty Start Date End Date Orlando Ash MD [address] [place] [address] PCP - General Family Medicine 06/09/18 documented as of this encounter
--- OUTSIDE RECORDS SUMMARY | 2024-08-23 20:11 | XMS_ITS | Encounter Summary ---
Author Organization [facility] Address [address] [place] [address] Care Team Providers Care Website Programmer Name Role Phone Orlando Ash MD Primary Care Provider [phone] Encounter Details Date Type Department Care Team (Late Contact Info) Description 08/23/2024 Bamboo flowsheet [facility] OB [address] [facility] [place] [address] Eusebio Lam DO [address] [place] [address] Marisa [place], [place] [address] Social History Tobacco Use Types Packs/Day Years [...] Description 08/30/2024 11:00 AM EDT Routine [facility] OB [address] [place] [address] Eusebio Lam [facility] [place], [facility] documented as of this encounter Visit Diagnoses Not on filedocumented in this encounter Care Teams Website Programmer Relationship Specialty Start Date End Date Orlando Ash MD [address] [place] [address] PCP - General Family Medicine 07/03/22 documented as of this encounter
--- OUTSIDE RECORDS SUMMARY | 2024-08-23 20:11 | XMS_ITS | Encounter Summary ---
Author Organization [facility] Address [address] [facility] [place] [address] Care Team Providers Care Product Marketing Director Name Role Phone Orlando Ash MD Primary Care Provider [phone] Encounter Details Date Type Department Care Team (Late Contact Info) Description 08/22/2024 Clinisync Result Encounter NOMS External Department Unsolicited Eusebio Lam, DO [address] [place], [place] [address] Social History Tobacco Use Types Packs/Day Years [...] Routine [facility] BCP OB [address] [place] [phone] Eusebio Lam DO [address] [place] [address] documented as of this encounter Procedures Procedure Name Priority Date/Time Associated Diagnosis Comments [facility] URINE MICROSCOPIC ONLY Routine 08/22/2024 9:32 AM EDT [facility] UA (CLEAN/CATCH) FAST FOOD MANAGER/MICRO IF IND. Routine 08/22/2024 9:32 AM EDT [...] SEEN #/LPF [facility] URINE CULTURE INDICATED YES-[facility] 08/22/2024 9:32 AM EDT 08/22/2024 9:51 AM EDT Narrative [facility] - 08/22/2024 10:25 AM EDT us Eusebio Carole DO [facility] Final Result [facility] * (ABNORMAL) [facility]H UA (CLEAN/CATCH) FAST FOOD MANAGER/MICRO IF IND. (08/22/2024 9:32 AM EDT) COLOR [...] Eusebio Lam DO [facility] Final Result [facility] documented in this encounter Visit Diagnoses Not on filedocumented in this encounter Care Teams Product Marketing Director Relationship Specialty Start Date End Date Orlando Ash MD [address] [place] [address] PCP - General Family Medicine 07/03/22 documented as of this encounter
--- OUTSIDE RECORDS SUMMARY | 2024-08-23 20:11 | XMS_ITS | Encounter Summary ---
Author Organization [facility] Address [address] [facility] [place] [address] Care Team Providers Care Top Case Assembler Name Role Phone Orlando Ash MD Primary Care Provider [phone] Encounter Details Date Type Department Care Team (Late st Contact Info) Description 12/29/2022 Clinisync Result Encounter N[facility]S External Department Unsolicited Yuri Lam [place] [address] Social History Tobacco Use Types Packs/Day Years [...] Routine [facility] BCP OB [address] [place] [address] Yuri Lam DO [facility] [place] [address] documented as of this encounter Procedures Procedure Name Priority Date/Time Associated Diagnosis Comments US OB PLACENTA 12/29/2022 2:24 PM EST documented in this encounter Results * US OB PLACENTA (12/29/2022 2:24 PM EST) Anatomical Region Laterality Modality Other 12/29/2022 2:24 PM EST Narrative 12/29/2022 2:24 PM EST [address] [address] Ultrasound Report Signed Patient: HAWK KING MR#: [id number] : 2000 Acct:[id number] Age/Sex: 22 / F ADM Date: Loc: [facility] 254-[address]: Yuri Lam D.O. Ordering Physician: Yuri Lam D.O. Date of Service: 12/29/22 Procedure(s): US OB placenta Accession Number(s): [id number] cc: Yuri Lam D.O.; Physician,Non-Staff [place] [address] Patient Name: HAWK KING MRN: [facility]:[id number] date: 2000 Sex: F Assigned Patient Location: [facility] Current Patient Location: [facility] Accession/Order Number: [id number] Exam Date: 12/29/2022 13:06 Report Date: 12/29/2022 [...] Signed By: 12/29/22 1427 DD/ 1424 TD/TT: Plant Anatomy Teacher: Procedure Note Radiology, Radiologist, MD - 12/29/2022 [place] [address] Ultrasound Report Signed Patient: HAWK KING CMR#: [id number] : 2000Acct:[id number] Age/Sex: 22 FADM Date: Loc: [facility] 254- Attending Dr: Yuri Lam D.O. Ordering Physician: Yuri Lam D.O. Date of Service: 12/29/22 Procedure(s): US OB placenta Accession Number(s): [id number] cc: Yuri Lam D.O.; Physician,Non-Staff Sindy The [place] [address] Patient Name: HAWK KING MRN: [id number] date: 2000 Sex: F Assigned Patient Location: [facility] Current Patient Location: [facility] Accession/Order Number: [id number] Exam Date: 12/29/2022 13:06 Report Date: 12/29/2022 [...] M.D. Signed By:12/29/22 1427 DD/ 142 TD/TT: Plant Anatomy Teacher: us Yuri Carole DO [facility] Final Result documented in this encounter Visit Diagnoses Not on filedocumented in this encounter Care Teams Top Case Assembler Relationship Specialty Start Date End Date Orlando Ash MD [address] [place] [address] PCP - General Family Medicine 07/03/22 documented as of this encounter
--- OUTSIDE RECORDS SUMMARY | 2024-08-23 20:11 | XMS_ITS | Encounter Summary ---
Author Organization [facility] Address [address] [facility] [place] [address] Care Team Providers Care Trip Follower Name Role Phone Orlando Ash MD Primary Care Provider [phone] Encounter Details Date Type Department Care Team (Late st Contact Info) Description 05/25/2024 Orders Only [facility] OB [address] [facility] [place] [address] Carol Winter LPN [address] [place] [address] Social History Tobacco Use Types Packs/Day Years [...] Description 08/30/2024 11:00 AM EDT Routine [facility] OB [address] [place] [address] Eusebio Lam DO [address] [facility] [address] Jasmin [place], [facility]11 documented as of this encounter Procedures Procedure Name Priority Date/Time Associated Diagnosis Comments PAP SMEAR Routine 05/16/2024 12:00 AM EDT documented in this encounter Results * Pap Smear (05/16/2024 12:00 AM EDT) Swab Cervical swab / Unknown us Eusebio Carole DO LAB CYTOLOGY ORDERABLES Final Re sult EXTERNAL LAB documented in this encounter Visit Diagnoses Not on filedocumented in this encounter Care Teams Trip Follower Relationship Specialty Start Date End Date Orlando Ash MD [address] [place] [address] PCP - General Family Medicine 07/03/22 documented as of this encounter
--- OUTSIDE RECORDS SUMMARY | 2024-08-23 20:11 | XMS_ITS | Encounter Summary ---
Author Organization [facility] Address [address] [place] [address] Care Team Providers Care Communication Equipment Mechanic Name Role Phone Orlando Ash MD Primary Care Provider [phone] Encounter Details Date Type Department Care Team (Late st Contact Info) Description 08/17/2024 Clinisync Result Encounter NOMS External Department Unsolicited Yuri Lam DO [address] [place], [facility] Social History Tobacco Use Types Packs/Day [...] [facility] BCP OB [address] [place] [address] Yuri Lam DO [address] [place] [address] documented as of this encounter Procedures Procedure Name Priority Date/Time Associated Diagnosis Comments US OB BPP W NON-STRESS 08/17/2024 10:41 AM EDT documented in this encounter Results * US OB BPP W NON-STRESS (08/17/2024 10:41 AM EDT) Anatomical Region Laterality Modality Other 08/17/2024 10:4 1 AM EDT Narrative 08/17/2024 10:44 [place] [address] Ultrasound Report Signed Patient: HAWK KING MR#: [id number] : 2000 Acct:[id number] Age/Sex: 23 / F ADM Date: 08/16/24 Loc: US Attending Dr: Yuri Lam D.O. Ordering Physician: Yuri Lam D.O. Date of Service: 08/16/24 Procedure(s): US OB BPP w non-stress Accession Number(s): [id number] cc: Yuri Lam D.O.; Physician,Non-Staff M.DTaylor The [place] [address] Patient Name: HAWK KING MRN: [id number] date: 2000 Sex: F Assigned Patient [facility]: [facility] [place] [facility] Accession/Order Number: [id number] Exam Date: 08/17/2024 10:39 Report Date: 08/17/2024 [...] Hunt M.D. 08/17/2024 10:41 AM Dictation Location: [place] [address] Electronically authenticated by: [id number] Y Date: 08/17/2024 10:41 Dictated By: Jing Hunt M.D. Signed By: 08/17/24 1044 DD/ 1041 TD/TT: Survey Research Professor: Procedure Note Radiology, Radiologist, MD - 08/17/2024 [place] [address] Ultrasound Report Signed Patient: HAWK KING CMR#: [id number] : 2000Acct:[id number] Age/Sex: 23 / FADM Date: 08/16/24 Loc: US Attending Dr: Yuri Lam D.O. Ordering Physician: Yuri Lam D.O. Date of Service: 08/16/24 Procedure(s): US OB BPP w non-stress Accession Number(s): [id number] cc: Yuri Lam D.O.; Physician,Non-Staff Sindy The [place] [address] Patient Name: HAWK KING MRN: [id number] date: 2000 Sex: F Assigned Patient Location: [facility] Current Patient [facility] [facility] Accession/Order Number: [id number] Exam Date: 08/17/2024 10:39 Report Date: 08/17/2024 [...] Hunt M.D. 08/17/2024 10:41 AM Dictation Location: [place] [address] Electronically authenticated by: [id number] Y Date: 0:41 Dictated By: Jing Hunt M.D. Signed By:08/17/24 1044 DD/ 1041 TD/TT: Survey Research Professor: us Yuri Carole DO [facility] Final Result documented in this encounter Visit Diagnoses Not on filedocumented in this encounter Care Teams Communication Equipment Mechanic Relationship Specialty Start Date End Date Orlando Ash MD [address] [place] [address] PCP - General Family Medicine 07/03/22 documented as of this encounter
--- OUTSIDE RECORDS SUMMARY | 2024-08-23 20:11 | XMS_ITS | Encounter Summary ---
Author Organization [facility] Address [address] [place] [address] Care Team Providers Care Heel Attacher Name Role Phone Janee Del Valle MD Unavailable Orlando Ash MD Primary Care Provider [phone] Encounter Details Date Type Department Care Team (Late Contact Info) Description 08/06/2022 Abstract [facility] OB [address] [facility] [address] [place] [address] [address] [place], [place] [phone] Social History Tobacco Use Types Packs/Day Years [...] Description 08/30/2024 11:00 AM EDT Routine [facility] OB [address] [facility] [address] [place] [address] [place], [place] [phone] documented as of this encounter Visit Diagnoses Not on filedocumented in this encounter Care Teams Heel Attacher Relationship Specialty Start Date End Date Janee Del Valle MD [address] [place] [address] PCP - Sri Gallegos 03/11/22 Orlando Ash MD [address] [place], [place] [address] PCP - General Family Medicine 07/03/22 documented as of this encounter
--- OUTSIDE RECORDS SUMMARY | 2024-08-23 20:11 | XMS_ITS | Encounter Summary ---
Author Organization [facility] Address [address] [place] [address] Care Team Providers Care Wharf Helper Name Role Phone Orlando Ash MD Primary Care Provider [phone] Encounter Details Date Type Department Care Team (Late st Contact Info) Description 08/09/2024 Clinisync Result Encounter [facility] External Department Unsolicited Yuri Lam DO [address] [place], [facility] Social History Tobacco Use Types Packs/Day Years [...] [facility] BCP OB [address] [place] [address] Yuri Lam DO [address] [place] [address] documented as of this encounter Procedures Procedure Name Priority Date/Time Associated Diagnosis Comments US OB CERVICAL LENGTH 08/09/2024 1:33 PM EDT documented in this encounter Results * US OB CERVICAL LENGTH (08/09/2024 1:33 PM EDT) Anatomical Region Laterality Modality Other 08/09/2024 1:33 PM EDT Narrative 08/09/2024 1:36 [place] [address] Ultrasound Report Signed Patient: HAWK KING MR#: [id number] : 2000 Acct:[id number] Age/Sex: 23 / F ADM Date: 08/09/24 Loc: [facility] 250-[address]: Yuri Lam D.O. Ordering Physician: Yuri Lam D.O. Date of Service: 08/09/24 Procedure(s): US OB cervical length Accession Number(s): [id number] cc: Yuri Lam D.O.; Physician,Non-Staff M.DTaylor [place] [address] Patient Name: HAWK KING MRN: [id number] date: 2000 Sex: F Assigned Patient Location: [facility] Current Patient Location: [facility] Accession/Order Number: [id number] Exam Date: 08/09/2024 13:32 Report Date: 08/09/2024 [...] Jr., D.O. 08/09/2024 1:33 PM Dictation Location[facility] Electronically authenticated by: [id number] Y Date: 08/09/2024 13:33 Dictated By: Wojciech Farah M.D. Signed By: 08/09/24 1336 DD/ 32 TD/TT: Paint Roller Cover Machine Setter: Procedure Note Radiology, Radiologist, - 08/09/2024 [place] [address] Ultrasound Report Signed Patient: HAWK KING CMR#: [id number] : 2000Acct:[id number] Age/Sex: 23 / FADM Date: 08/09/24 Loc: [facility] 250-[address]: Yuri Lam D.O. Ordering Physician: Yuri Lam D.O. Date of Service: 08/09/24 Procedure(s): US OB cervical length Accession Number(s): [id number] cc: Yuri Lam D.O.; Physician,Non-Staff Sindy The [place] [address] Patient Name: HAWK KING MRN: [id number] date: 2000 Sex: F Assigned Patient Location: [facility] Current Patient Location: [facility] Accession/Order Number: [id number] Exam Date: 08/09/2024 13:32 Report Date: 08/09/2024 [...] Jr., D.O. 08/09/2024 1:33 PM Dictation Location: [facility] Electronically authenticated by: [id number] Y Date: 3:33 Dictated By: Wojciech Farah M.D. Signed By:08/09/24 1336 DD/ 1333 TD/TT: Paint Roller Cover Machine Setter: us Yuri Carole DO [facility] Final Result documented in this encounter Visit Diagnoses Not on filedocumented in this encounter Care Teams Wharf Helper Relationship Specialty Start Date End Date Orlando Ash MD [address] [place] [address] PCP - General Family Medicine 07/03/22 documented as of this encounter
--- OUTSIDE RECORDS SUMMARY | 2024-08-23 20:11 | XMS_ITS | Encounter Summary ---
Author Organization [facility] Address [address] [place] [address] Care Team Providers Care Master Brewer Name Role Phone Orlando Ash MD Primary Care Provider [phone] Encounter Details Date Type Department Care Team (Late st Contact Info) Description 12/29/2022 Clinisync Result Encounter NOMS External Department Unsolicited Yuri Lam, DO [facility] [place] [address] Social History Tobacco Use Types Packs/Day Years [...] Routine [facility] BCP OB [address] [place] [address] Yuri Lam DO [facility] [place] [address] documented as of this encounter Procedures Procedure Name Priority Date/Time Associated Diagnosis Comments US OB BPP W NON-STRESS 12/29/2022 2:24 PM EST documented in this encounter Results * US OB BPP W NON-STRESS (12/29/2022 2:24 PM EST) Anatomical Region Laterality Modality Other 12/29/2022 2:24 PM EST Narrative 12/29/2022 2:24 [place] [address] Ultrasound Report Signed Patient: HAWK KING MR#: [id number] : 2000 Acct:[id number] Age/Sex: 22 / F ADM Date: Loc: [facility] 254-[address]: Yuri Lam D.O. Ordering Physician: Yuri Lam D.O. Date of Service: 12/29/22 Procedure(s): US OB BPP w non-stress Accession Number(s): [id number] cc: Yuri Lam D.O.; Physician,Non-Staff M.Sigrid [place] [id number] Patient Name: HAWK KING MRN: [id number] date: 2000 Sex: F Assigned Patient Location: [facility] Current Patient Location: [facility] Accession/Order Number: [id number] Exam Date: 12/29/2022 13:06 Report Date: 12/29/2022 [...] Signed By: 12/29/22 1427 DD/ 23 TD/TT: Blocker Automatic: Procedure Note Radiology, Radiologist, MD - 12/29/2022 [place] [address] Ultrasound Report Signed Patient: HAWK KING CMR#: [id number] : 2000Acct:[id number] Age/Sex: Date: Loc: [facility] 254-[address]: Yuri Lam D.O. Ordering Physician: Yuri Lam D.O. Date of Service: 12/29/22 Procedure(s): US OB BPP w non-stress Accession Number(s): [id number] cc: Yuri Lam D.O.; Physician,Non-Staff M.DTaylor The [place] [id number] Patient Name: HAWK KING MRN: [id number] date: 2000 Sex: F Assigned Patient Location: [facility] Current Patient Location: [facility] Accession/Order Number: [id number] Exam Date: 12/29/2022 13:06 Report Date: 12/29/2022 [...] M.D. Signed By:12/29/22 1427 DD/ 142 TD/TT: Blocker Automatic: us Yuri Carole DO [facility] Final Result documented in this encounter Visit Diagnoses Not on filedocumented in this encounter Care Teams Master Brewer Relationship Specialty Start Date End Date Orlando Ash MD [address] [place], [place] [id number] PCP - General Family Medicine 07/03/22 documented as of this encounter
--- OUTSIDE RECORDS SUMMARY | 2024-08-23 20:11 | XMS_ITS | Encounter Summary ---
Author Organization [facility] tem Address [facility] [id number] [address] [place] [address] Care Team Providers Care Software Development Manager Name Role Phone Orlando Ash MD Primary Care Provider [phone] Encounter Details Date Type Department Care Team (Late st Contact Info) Description 04/21/2024 Orders Only [facility]- Medicine at [facility] [address] [place] [address] Eusebio Lam R, DO [address] [facility] [place] [address] Social History Tobacco Use Types Packs/Day Years [...] documented as of this encounter Care Teams Software Development Manager Relationship Specialty Start Date End Date Orlando Ash MD [address] [place] [address] PCP - General Family Medicine 06/09/18 documented as of this encounter
--- OUTSIDE RECORDS SUMMARY | 2024-08-23 20:11 | XMS_ITS | Encounter Summary ---
Author Organization [facility] Address [address] [place] [address] Care Team Providers Care Property Insurance Inspector Name Role Phone Janee Del Valle MD Unavailable Orlando Ash MD Primary Care Provider [phone] Encounter Details Date Type Department Care Team (Late st Contact Info) Description 07/03/2022 Clinisync Result Encounter NOMS External Department Unsolicited Eusebio Lam, DO [address] [place] [address] Social History Tobacco Use Types Packs/Day Years [...] Routine [facility]S BCP OB [address] [place] [phone] Eusebio Lam DO [address] [place] [address] documented as of this encounter Procedures Procedure [...] Date: 2022-07-03 17:20 us Eusebio Carole DO [facility] Final Result documented in this encounter Visit Diagnoses Not on filedocumented in this encounter Care Teams Property Insurance Inspector Relationship Specialty Start Date End Date Janee Del Valle MD [address] [place] [address] PCP - [place] [employer] 03/11/22 Orlando Ash MD [address] [place] [address] PCP - General Family Medicine 07/03/22 documented as of this encounter
--- OUTSIDE RECORDS SUMMARY | 2024-08-23 20:11 | XMS_ITS | Encounter Summary ---
Author Organization [employer] tem Address [id number] [address] [place] [address] Care Team Providers Care Sap Bobj Developer Name Role Phone Orlando Ash MD Primary Care Provider [phone] Encounter Details Date Type Department Care Team (Late st Contact Info) Description 01/19/2024 Telephone [facility] Obstetrics/Gynecology [address] [facility] [place] [address] [place], TECHNICAL SERVICES CONSULTANT-[facility] [address] [facility], [address] [place] [address] Social History Tobacco Use Types Packs/Day Years [...] on filedocumented in this encounter Care Teams Sap Bobj Developer Relationship Specialty Start Date End Date Orlando Ash MD [address] [place] [address] PCP - General Family Medicine 06/09/18 documented as of this encounter
--- OUTSIDE RECORDS SUMMARY | 2024-08-23 20:11 | XMS_ITS | Encounter Summary ---
Author Organization [facility] Address [address] [facility] [place] [address] Care Team Providers Care Import Customs Clearing Agent Name Role Phone Janee Del Valle MD Unavailable Orlando Ash MD Primary Care Provider [phone] Encounter Details Date Type Department Care Team (Late st Contact Info) Description 07/20/2022 Abstract [facility] BCP OB [address] [facility] [place] [address] Eusebio Lam, [address] [place], [place] [address] Social History Tobacco Use Types Packs/Day Years [...] [facility] BCP OB [address] [facility] [address] Eusebio Lam [facility] [address] documented as of this encounter Visit Diagnoses Not on filedocumented in this encounter Care Teams Import Customs Clearing Agent Relationship Specialty Start Date End Date Janee Del Valle MD [address] [place] [address] PCP - [place] [employer] 03/11/22 Orlando Ash MD [address] [place] [address] PCP - General Family Medicine 07/03/22 documented as of this encounter
--- OUTSIDE RECORDS SUMMARY | 2024-08-23 20:11 | XMS_ITS | Encounter Summary ---
Author Organization [facility] Address [address] [facility] [place] [address] Care Team Providers Care Ssrs Report Developer Name Role Phone Orlando Ash MD Primary Care Provider [phone] Encounter Details Date Type Department Care Team (Late st Contact Info) Description 08/09/2024 Bamboo flowsheet N[facility]S BCP OB [address] [facility] [place] [address] Megan Diego, SENIOR CARE SPECIALIST [address] [facility] [place] [address] Social History Tobacco Use Types Packs/Day [...] EDT Routine NOMS BCP OB [address] [facility] [facility] [place] [address] Eusebio Lam, DO [address] [facility] [address] Jasmin [place], [facility]11 documented as of this encounter Visit Diagnoses Not on filedocumented in this encounter Care Teams Ssrs Report Developer Relationship Specialty Start Date End Date Orlando Ash MD [address] [place] [address] PCP - General Family Medicine 07/03/22 documented as of this encounter
--- OUTSIDE RECORDS SUMMARY | 2024-08-23 20:11 | XMS_ITS | Encounter Summary ---
Author Organization [facility] Address [address] [place] [address] Care Team Providers Care Mechanic Insulator Name Role Phone Orlando Ash MD Primary Care Provider [phone] Encounter Details Date Type Department Care Team (Late st Contact Info) Description 08/09/2024 Clinisync Result Encounter [facility] External Department Unsolicited Yuri Lam DO [address], [place] [address] Social History Tobacco Use Types Packs/Day Years [...] [facility] BCP [place] [address] [place] [phone] Yuri Lam DO [address] [place] [address] documented as of this encounter Procedures Procedure Name Priority Date/Time Associated Diagnosis Comments US OB BPP W NON-STRESS 08/09/2024 1:42 PM EDT documented in this encounter Results * US OB BPP W NON-STRESS (08/09/2024 1:42 PM EDT) Anatomical Region Laterality Modality Other 08/09/2024 1:42 PM EDT Narrative 08/09/2024 1:45 [place] [address] Ultrasound Report Signed Patient: HAWK KING MR#: [id number] : 2000 Acct:[id number] Age/Sex: 23 / F ADM Date: 08/09/24 Loc: US Attending Dr: Yuri Lam D.O. Ordering Physician: Yuri Lam D.O. Date of Service: 08/09/24 Procedure(s): US OB BPP w non-stress Accession Number(s): [id number] cc: Yuri Lam D.O.; Physician,Non-Staff M.DTaylor [place] [address] Patient Name: HAWK KING MRN: [id number] date: 2000 Sex: F Assigned Patient Location: [facility] Current Patient Location: Accession/Order Number: [id number] Exam Date: 08/09/2024 13:42 Report Date: 08/09/2024 13:42 At the request of: YURI LAM DO Procedure: US OB BPP w non-stress Biophysical profile. Reason for exam: Large for dates. COMPARISON: BPP 08/02/2024. TECHNIQUE: Transabdominal imaging of the gravid uterus was obtained. FINDINGS: Pre Sales Network Engineer reports a BPP of 8 out of 8. JACKELYN is normal at 17.9 cm. heart rate 167 bpm. US/US OB BPP w non-stress Impression: BPP 8 out of 8. Impression dictated by: Wojciech Farah Jr., D.O. 08/09/2024 1:42 PM Dictation Location: [place] [address] Electronically authenticated by: [id number] Y Date: 08/09/2024 13:42 Dictated By: Wojciech Farah M.D. Signed By: 08/09/24 1345 DD/ 134 TD/TT: Shoe Dresser: Procedure Note Radiology, Radiologist, MD - 08/09/2024 [place] [address] Ultrasound Report Signed Patient: HAWK KING CMR#: [id number] : 2000Acct:[id number] Age/Sex: 23 / FADM Date: 08/09/24 Loc: US Attending Dr: Yuri Lam D.O. Ordering Physician: Yuri Lam D.O. Date of Service: 08/09/24 Procedure(s): US OB BPP w non-stress Accession Number(s): [id number] cc: Yuri Lam D.O.; Physician,Non-Staff Sindy [place] [address] Patient Name: HAWK KING MRN: [id number] date: 2000 Sex: F Assigned Patient Location: [facility] Current Patient Location: Accession/Order Number: [id number] Exam Date: 08/09/2024 13:42 Report Date: 08/09/2024 13:42 At the request of: YURI LAM DO Procedure: US OB BPP w non-stress Biophysical profile. Reason for exam: Large for dates. COMPARISON: BPP 08/02/2024. TECHNIQUE: Transabdominal imaging of the gravid uterus was obtained. FINDINGS: Pre Sales Network Engineer reports a BPP of 8 out of 8. JACKELYN is normal at 17.9cm. heart rate 167 bpm. US/US OB BPP w non-stress Impression: BPP 8 out of 8. Impression dictated by: Wojciech Farah Jr., D.O. 08/09/2024 1:42 PM Dictation Location: [place] [address] Electronically authenticated by: [id number] Y Date: 3:42 Dictated By: Wojciech Farah M.D. Signed By:08/09/24 1345 DD/ 1342 TD/TT: Shoe Dresser: us Yuri Carole DO [facility] Final Result documented in this encounter Visit Diagnoses Not on filedocumented in this encounter Care Teams Mechanic Insulator Relationship Specialty Start Date End Date Orlando Ash MD [address] [place] [address] PCP - General Family Medicine 07/03/22 documented as of this encounter
--- OUTSIDE RECORDS SUMMARY | 2024-08-23 20:12 | XMS_ITS | Encounter Summary ---
Author Organization [employer] Address [id number] [address] [place] [address] Care Team Providers Care Plush Weaver Name Role Phone Orlando Ash MD Primary Care Provider [phone] Encounter Details Date Type Department Care Team (Late st Contact Info) Description 07/03[facility] [address] [place] [phone] Rachel Dan, [facility] Social History Tobacco Use Types Packs/Day [...] 8 weeks and mom is traveling to [place] and patient would like to ride along. Patient miscarried back in January and her mom wants to be sure its safe for pt to ride in a car to and from [place]. She doesn't want to cause any kind of demise to fetus. Pleaseadvise. Thanks! * Telephone Encounter - KRISTYN Mcdowell - 07/03/2021 11:30 AM EDT Patient may travel to [place]. She should make frequent stops to stretch [...] documented as of this encounter Care Teams Plush Weaver Relationship Specialty Start Date End Date Orlando Ash MD [address] [place] [address] PCP - General Family Medicine 06/09/18 documented as of this encounter
--- NOTE | 2024-08-23 20:13 | US_ITS ---
[place] [id number] Patient Name: JEMIMA RAZO MRN: [id number] date: 2000 Sex: F Assigned Patient Location: [facility] Current Patient Location: Accession/Order Number: [id number] Exam Date: 08/24/2024 08:18 Report Date: 08/24/2024 08:27 At the request of: YURI REDDY DO Procedure: US OB BPP w non-stress CLINICAL INFORMATION: H/O LABOR O09.899 ULTRASOUND OB GROWTH COMPARISON: 08/02/2024 There is a single live intrauterine gestation in cephalic presentation. There is cardiac and somatic activity with heart rate of 147 bpm. The amniotic fluid volume measures 18.9 cm. This is in upper normal range. The following measurements were obtained: Biparietal diameter 8.9 cm 36 weeks 1 day 66% Head circumference 34.1 cm 39 weeks 1 day 91% Abdominal circumference 33.4 cm 37 weeks 2 days 91% Femur length 6.9 cm 35 weeks 3 days 33% The composite ultrasound age based on these measurements is 37 weeks 0 days +/- 2 weeks 4 days. The estimated date of delivery is 09/13/2024. The delivery date based on the comparison ultrasound was 09/07/2024 and based on last menstrual period, 09/21/2024. The estimated weight is 5 lbs. 6 oz. +/- 13 ounces (87%). US/US OB BPP w non-stress IMPRESSION: SINGLE LIVE INTRAUTERINE GESTATION WITH ULTRASOUND AGE OF 37 WEEKS 0 DAYS. BIOPHYSICAL PROFILE: COMPARISON: 08/16/2024 FINDINGS: TONE: 1 or more episodes of activity extension and flexion of extremity or opening and closing of the hand [Y] 2/2 GROSS BODY MOVEMENTS: 3 or more discrete body or limb movements [Y] 2/2 BREATHING MOVEMENTS: 1 or more episodes of breathing lasting at least 30 seconds [Y] 2/2 JACKELYN: A single deepest vertical pocket of amniotic fluid greater than 2 cm [Y] 2/2 JACKELYN: 18.9 cm Total score: 09/15 IMPRESSION: NORMAL BIOPHYSICAL PROFILE Impression dictated by: Jing Hunt M.D. 08/24/2024 8:27 AM Dictation Location: [place] [address] Electronically authenticated by: [id number] Y Date: 08/24/2024 08:27
--- NOTE | 2024-08-23 20:14 | US_ITS ---
[place] [id number] Patient Name: JEMIMA RAZO MRN: [id number] date: 2000 Sex: F Assigned Patient Location: [facility] Current Patient Location: Accession/Order Number: [id number] Exam Date: 08/24/2024 08:18 Report Date: 08/24/2024 08:27 At the request of: YURI REDDY DO Procedure: US OB BPP w non-stress CLINICAL INFORMATION: H/O LABOR O09.899 ULTRASOUND OB GROWTH COMPARISON: 08/02/2024 There is a single live intrauterine gestation in cephalic presentation. There is cardiac and somatic activity with heart rate of 147 bpm. The amniotic fluid volume measures 18.9 cm. This is in upper normal range. The following measurements were obtained: Biparietal diameter 8.9 cm 36 weeks 1 day 66% Head circumference 34.1 cm 39 weeks 1 day 91% Abdominal circumference 33.4 cm 37 weeks 2 days 91% Femur length 6.9 cm 35 weeks 3 days 33% The composite ultrasound age based on these measurements is 37 weeks 0 days +/- 2 weeks 4 days. The estimated date of delivery is 09/13/2024. The delivery date based on the comparison ultrasound was 09/07/2024 and based on last menstrual period, 09/21/2024. The estimated weight is 5 lbs. 6 oz. +/- 13 ounces (87%). US/US OB growth IMPRESSION: SINGLE LIVE INTRAUTERINE GESTATION WITH ULTRASOUND AGE OF 37 WEEKS 0 DAYS. BIOPHYSICAL PROFILE: COMPARISON: 08/16/2024 FINDINGS: TONE: 1 or more episodes of activity extension and flexion of extremity or opening and closing of the hand [Y] 2/2 GROSS BODY MOVEMENTS: 3 or more discrete body or limb movements [Y] 2/2 BREATHING MOVEMENTS: 1 or more episodes of breathing lasting at least 30 seconds [Y] 2/2 JACKELYN: A single deepest vertical pocket of amniotic fluid greater than 2 cm [Y] 2/2 JACKELYN: 18.9 cm Total score: /8 IMPRESSION: NORMAL BIOPHYSICAL PROFILE Impression dictated by: Jing Hunt M.D. 08/24/2024 8:27 AM Dictation Location: [place] [address] Electronically authenticated by: [id number] Y Date: 08/24/2024 08:27
[2024-08-23 20:49] VITALS: BP 112/61; PULSE 93
== END 2024-08-23 21:20 | disposition home or self-care (01) ==
LOC: US 20:09 → FBC 20:13
PROVIDERS: Visit Provider Obstetrics & Gynecology
DX: O26.893 Other specified pregnancy related conditions, third trimester (principal); Z3A.37 37 weeks gestation of pregnancy
CPT/HCPCS: 76816; 76818; 87081

== ENCOUNTER 2024-08-24 22:57 | Observation (INO) | payer MEDICAID, SELFPAY ==
--- OUTSIDE RECORDS SUMMARY | 2024-08-17 10:00 | XMS_ITS | Encounter Summary ---
Author Organization [facility] Address [address] [place] [address] Care Team Providers Care Information Tech Name Role Phone Orlando Ash MD Primary Care Provider [phone] Reason for Visit * Reason Comments Routine Visit Encounter Details Date Type Department Care Team (Late st Contact Info) Description 08/17/2024 10:00 AM EDT Routine [facility] [address] [place] [phone] Eusebio Lam, DO [address] [facility] [place] [address] Third trimester ([facility]); 35 weeks gestation of ([facility]) Social History Tobacco Use Types Packs/Day Years [...] Sign Reading Time Taken Comments Blood Pressure 108/60 08/17/2024 9:59 AM EDT Pulse - - Temperature - - Respiratory Rate - - Oxygen Saturation - - Inhaled Oxygen Concentration - - Weight 73.5 kg (162 lb) 08/17/2024 9:59 AM EDT Height - - Body Mass Index 28.7 03/12/2022 12:00 PM EST documented in this encounter Progress Notes * Sunshine Ye, PARTS PULLER - 08/17/2024 10:00 AM EDT Reason for Appointment: Patient ID: [...] day smoker Heartburn History of miscarriage, currently ([facility] HISTORY PAST MEDICAL HISTORY SOCIAL HISTORY Past Medical History: Diagnosis Date Carrier of spinal muscular atrophy Current every day smoker Heartburn History of miscarriage, currently ([facility]) Social History Tobacco Use Smoking status: Every [...] appearance. She is well-developed. Genitourinary: Vulva normal. Cardiovascular: Rate and Rhythm: Normal rate and [...] nursing note reviewed. Exam conducted with a softlines supervisor present. Vitals: Estimated body mass index is 28.7 kg/m?? as calculated from the following: Height as of 03/12/22: 5' 3 . Weight as of this encounter: 162 lb. BP: 108/60 No LMP recorded. Patient is . ASSESSMENT & PLAN ICD-10-CM 1. Third trimester ([facility]) Z34.93 POCT urinalysis dipstick manually resulted 2. 35 weeks gestation of ([facility]) Z3A.35 POCT urinalysis dipstick manually resulted Patient presents today for a routine obstetrics appointment. Patient is currently 35w0d with a Estimated Date of Delivery: 09/21/24. Pelvic exam performed and patient is dilated to 1cm. Patient to RTC in 1 week. Documented by Sunshine Ye LPN on behalf of: Eusebio Lam DO documented in this encounter Plan of Treatment Upcoming Encounters Date Type Department Care Team (Late st Contact Info) Description 08/30/2024 11:00 AM EDT Routine [facility] [address] [place] [address] Eusebio Lam DO [address] [facility] [address] [place], [place] [id number] documented as of this encounter Procedures Procedure Name Priority Date/Time Associated Diagnosis Comments POCT URINALYSIS DIPSTICK Routine 08/17/2024 10:08 AM EDT Third trimester ([facility]) 35 weeks gestation of ([facility]) documented in this encounter Results * (ABNORMAL) POCT urinalysis dipstick manually resulted (08/17/2024 10:08 AM EDT) Color, UA Yellow Clarity, UA Clear Glucose, UA Negative Negative - 2000(110) ++++ mg/dL Bilirubin, UA Negative Negative - 4(70) +++ mg/dL Ketones, UA Negative Negative - 160(16) ++++ mg/dL Spec Grav, UA 1.020 1 - 1.03 Blood, UA Negative Negative - 50 Jian/mcL pH, UA 6.5 5 - 9 Protein, UA Negative Negative - 2000(20) ++++ mg/dL Urobilinogen, UA 1.0 0.2 - 12 mg/dL Leukocytes, UA Negative Negative - 500+++ Heriberto/mcL Nitrite, UA Negative Negative - Positive Urine 08/17/2024 10:0 8 AM EDT Eusebio Lam DO POINT OF CARE TEST ENTER/EDIT OR DERABLES Final Result documented in this encounter Visit Diagnoses Diagnosis Third trimester ([facility]) state, incidental 35 weeks gestation of ([facility]HS-HCC) documented in this encounter Care Teams Information Tech Relationship Specialty Start Date End Date Orlando Ash MD [address] [place] [address] PCP - General Family Medicine 07/03/22 documented as of this encounter
--- OUTSIDE RECORDS SUMMARY | 2024-08-23 13:00 | XMS_ITS | Encounter Summary ---
Author Organization [facility] Address [address] [place] [address] Care Team Providers Care Boiler Mechanic Name Role Phone Orlando Ash MD Primary Care Provider [phone] Reason for Visit * Reason Comments Routine Visit Encounter Details Date Type Department Care Team (Late st Contact Info) Description 08/23/2024 1:00 PM EDT Routine [facility] OB [address] [place] [address] Eusebio Lam, DO [address] [facility] [place] [address] Third trimester ([facility]); 35 weeks gestation of ([facility]) Social History Tobacco Use Types Packs/Day [...] this encounter Progress Notes * Jing Moncada, SEBD TEACHER - 08/23/2024 1:00 PM EDT Reason for [...] day smoker Heartburn History of miscarriage, currently ([facility]) HISTORY PAST MEDICAL HISTORY SOCIAL HISTORY Past Medical History: Diagnosis Date Carrier of spinal muscular atrophy Current every day smoker Heartburn History of miscarriage, currently ([facility]) Social History Tobacco Use Smoking [...] nursing note reviewed. Exam conducted with a cutter plastics rolls present. Vitals: Estimated body mass index is 29.94 kg/m?? as calculated from the following: Height as of 03/12/22: 5' 3 . Weight as of this encounter: 169 lb. BP: 102/60 No LMP recorded. Patient is . ASSESSMENT & PLAN ICD-10-CM 1. Third trimester ([facility]) Z34.93 CULTURE, GROUP B STREP WITH SUSCEPTIBLITY CULTURE, GROUP B STREP WITH SUSCEPTIBLITY 2. 35 weeks gestation of ([facility]) Z3A.35 Patient is doing well but has [...] AM EDT Routine [facility] OB [address] [place] [address] Eusebio Lam DO [address] [place] [address] Scheduled Orders Name Type Priority Associated Diagnoses Orde r Schedule CULTURE, GROUP B STREP WITH SUSCEPTIBLITY Lab Routine Third trimester ([facility]) Expected: 08/23/2024, Expires: 08/23/2025 documented as of this encounter Visit Diagnoses Diagnosis Third trimester ([facility]) state, incidental 35 weeks gestation of ([facility]) documented in this encounter Care Teams Boiler Mechanic Relationship Specialty Start Date End Date Orlando Ash MD [address] [place], [place] [id number] PCP - General Family Medicine 07/03/22 documented as of this encounter
--- OUTSIDE RECORDS SUMMARY | 2024-08-24 23:02 | XMS_ITS | Encounter Summary ---
Author Organization [facility] Address [address] [place] [address] Care Team Providers Care Patent Searcher Name Role Phone Orlando Ash MD Primary Care Provider [phone] Encounter Details Date Type Department Care Team (Late Contact Info) Description 02/24/2024 Abstract [facility] [address] [place] [address] Sunshine Ye [...] Description 08/30/2024 11:00 AM EDT Routine [facility]OM[facility] [address] [place] [address] Eusebio Lam [address] [place], [place] [id number] documented as of this encounter Visit Diagnoses Not on filedocumented in this encounter Care Teams Patent Searcher Relationship Specialty Start Date End Date Orlando Ash MD [address] [place] [address] PCP - General Family Medicine 07/03/22 documented as of this encounter
--- OUTSIDE RECORDS SUMMARY | 2024-08-24 23:02 | XMS_ITS | Encounter Summary ---
Author Organization [employer] Address [id number] [address] [place] [address] Care Team Providers Care Rehab Consultant Name Role Phone Orlando Ash MD Primary Care Provider [phone] Encounter Details Date Type Department Care Team (Late st Contact Info) Description 06/06/2021 Telephone [facility] Obstetrics/Gynecology [address] [place] [phone] Tory Calloway MA Social History Tobacco Use [...] documented as of this encounter Care Teams Rehab Consultant Relationship Specialty Start Date End Date Orlando Ash MD [address] [place] [address] PCP - General Family Medicine 06/09/18 documented as of this encounter
--- OUTSIDE RECORDS SUMMARY | 2024-08-24 23:02 | XMS_ITS | Encounter Summary ---
Author Organization [facility] Address [address] [facility] [place] [address] Care Team Providers Care Timber Bucker Name Role Phone Orlando Ash MD Primary Care Provider [phone] Encounter Details Date Type Department Care Team (Late Contact Info) Description 08/22/2024 Clinisync Result Encounter [facility] External Department Unsolicited Eusebio Lam, DO [address], [place] [address] Social History Tobacco Use Types Packs/Day Years [...] Routine [facility] BCP OB [address] [place] [phone] Eusebio Lam DO [address] [place] [address] documented as of this encounter Procedures Procedure Name Priority Date/Time Associated Diagnosis Comments [facility] URINE MICROSCOPIC ONLY Routine 08/22/2024 9:32 AM EDT [facility] UA (CLEAN/CATCH) RECORDS ANALYSIS MANAGER/MICRO IF IND. Routine 08/22/2024 9:32 AM [...] NONE SEEN #/LPF [facility] URINE CULTURE INDICATED YES-[facility] 08/22/2024 9:32 AM EDT 08/22/2024 9:51 AM EDT Narrative [facility] - 08/22/2024 10:25 AM EDT us Eusebio Carole DO [facility] Final Result [facility] * (ABNORMAL) [facility] UA (CLEAN/CATCH) RECORDS ANALYSIS MANAGER/MICRO IF IND. (08/22/2024 9:32 AM EDT) [...] Eusebio Lam DO [facility] Final Result [facility] documented in this encounter Visit Diagnoses Not on filedocumented in this encounter Care Teams Timber Bucker Relationship Specialty Start Date End Date Orlando Ash MD [address] [place] [address] PCP - General Family Medicine 07/03/22 documented as of this encounter
--- OUTSIDE RECORDS SUMMARY | 2024-08-24 23:02 | XMS_ITS | Encounter Summary ---
Author Organization [facility] Address [address] [facility] [place] [address] Care Team Providers Care Feed Grinder Name Role Phone Orlando Ash MD Primary Care Provider [phone] Encounter Details Date Type Department Care Team (Late st Contact Info) Description 05/30/2024 Results Follow-Up [facility] BCP OB [address] [facility] [place] [address] Carol Winter LPN [facility] [place] [address] Social History Tobacco Use Types Packs/Day Years [...] Description 08/30/2024 11:00 AM EDT Routine [facility] OB [address] [place] [address] Eusebio Lam, DO [address] [place] [address] documented as of this encounter Visit Diagnoses Not on filedocumented in this encounter Care Teams Feed Grinder Relationship Specialty Start Date End Date Orlando Ash MD [address] [place], [place] [phone] PCP - General Family Medicine 07/03/22 documented as of this encounter
--- OUTSIDE RECORDS SUMMARY | 2024-08-24 23:02 | XMS_ITS | Encounter Summary ---
Author Organization [facility] Address [address] [place] [address] Care Team Providers Care Svp Group Director Name Role Phone Orlando Ash MD Primary Care Provider [phone] Encounter Details Date Type Department Care Team (Late Contact Info) Description 05/25/2024 Abstract [facility] [address] [place] [address] Eusebio Lam DO [facility] [address], [place] [address] Social History Tobacco Use Types Packs/Day Years [...] Description 08/30/2024 11:00 AM EDT Routine [facility] OB [address] [place] [address] Eusebio Lam DO [facility] [address], [place] [address] documented as of this encounter Visit Diagnoses Not on filedocumented in this encounter Care Teams Svp Group Director Relationship Specialty Start Date End Date Orlando Ash MD [address] [place] [address] PCP - General Family Medicine 07/03/22 documented as of this encounter
--- OUTSIDE RECORDS SUMMARY | 2024-08-24 23:02 | XMS_ITS | Encounter Summary ---
Author Organization [employer] Address [id number] [address] [place] [address] Care Team Providers Care Middle School History Teacher Name Role Phone Orlando Ash MD Primary Care Provider [phone] Encounter Details Date Type Department Care Team (Late st Contact Info) Description 01/19/2024 Telephone [facility] Obstetrics/Gynecology [address] [facility] [phone] Vale Spring, KENO WRITER / [facility] [address] [facility] [place] [address] Social History Tobacco Use Types Packs/Day Years [...] on filedocumented in this encounter Care Teams Middle School History Teacher Relationship Specialty Start Date End Date Orlando Ash MD [address] [place] [address] PCP - General Family Medicine 06/09/18 documented as of this encounter
--- OUTSIDE RECORDS SUMMARY | 2024-08-24 23:02 | XMS_ITS | Encounter Summary ---
Author Organization [facility] Address [address] [facility] [place] [address] Care Team Providers Care Razor Sharpener Name Role Phone Orlando Ash MD Primary Care Provider [phone] Encounter Details Date Type Department Care Team (Late Contact Info) Description 03/16/2024 Abstract [facility] [address] [place] [phone] Eusebio Lam DO [facility] [address] [place] [id number] Social History Tobacco Use Types Packs/Day Years [...] Description 08/30/2024 11:00 AM EDT Routine [facility] [address] [place] [address] Eusebio Lam DO [facility] [address], [place] [phone] documented as of this encounter Visit Diagnoses Not on filedocumented in this encounter Care Teams Razor Sharpener Relationship Specialty Start Date End Date Orlando Ash MD [address] [place] [address] PCP - General Family Medicine 07/03/22 documented as of this encounter
--- OUTSIDE RECORDS SUMMARY | 2024-08-24 23:02 | XMS_ITS | Encounter Summary ---
Author Organization [employer] Address [id number] [address] [place] [address] Care Team Providers Care Mail Clerks Supervisor Name Role Phone Orlando Ash MD Primary Care Provider Encounter Details Date Type Department Care Team (Late st Contact Info) Description 07/03/2021 [facility]phone [email or web address] [address] [place] [phone] Rachel Dan, [facility] Social History Tobacco Use Types Packs/Day Years [...] AM EDT Patient may travel to [place]. She should make frequent stops to stretch [...] documented as of this encounter Care Teams Mail Clerks Supervisor Relationship Specialty Start Date End Date Orlando Ash MD [address] [place] [address] PCP - General Family Medicine 06/09/18 documented as of this encounter
--- OUTSIDE RECORDS SUMMARY | 2024-08-24 23:02 | XMS_ITS | Clinical Summary ---
Author Organization [facility] Address [address] [place] [address] Care Team Providers Care Dry Box Operator Name Role Phone Ann-Marie Ash MD Primary Care Provider [phone] Allergies No known active allergies Medications MV-Min-Fe Fum-FA-DHA ( 1 PO) Take 1 each by mouth Daily Active Active Problems Problem Noted Date Diagnosed Date Missed menses 07/02/2022 Estimated Date of Delivery Comme nts Yes 09/21/2024 Based on Ultraso und Encounters Date Type Department Care Team Description 08/24/2024 Clinisync Result Encounter [facility] External Department Unsolicited Yuri Lam, 08/24/2024 Clinisync Result Encounter [facility] External Department Unsolicited Yuri Lam, 08/23/2024 1:00 PM EDT Routine [facility] [address] [place] [address] Yuri Lam, DO Third trimester ([facility]); 35 weeks gestation of ([facility]) 08/23/2024 Bamboo flowsheet [facility] OB [address] [place] [address] Yuri Lam, 08/22/2024 Clinisync Result Encounter [facility] External Department Unsolicited Yuri Lam, 08/17/2024 10:00 AM EDT [place]ine [place] [address] Yuri Lam, DO Third trimester ([facility]); 35 weeks gestation of ([facility]) 08/17/2024 Clinisync Result Encounter [facility] External Department Unsolicited Yuri Lam, DO 08/17/2024 Bamboo flowsheet [facility] OB [address] [facility] [place] [address] Yuri Lam, DO 08/09/2024 8:30 AM EDT Routine [facility] OB [address] [facility] [place] [address] Megan Diego, ANI Third trimester ([facility]); 33 weeks gestation of ([facility]) 08/09/2024 Clinisync Result Encounter [facility] External Department Unsolicited Yuri Lam, DO 08/09/2024 Clinisync Result Encounter [facility] External Department Unsolicited Yuri Lam, DO 08/09/2024 Bamboo flowsheet [facility] OB [address] [facility] [place] [address] Megan Diego, ANI 08/03/2024 Clinisync Result Encounter [facility] External Department Unsolicited Yuri Lam, DO 08/03/2024 Clinisync Result Encounter [facility] External Department Unsolicited Yuri Lam, DO 07/26/2024 11:10 AM EDT Routine [facility] BCP OB [address] [place] [address] Yuri Lam, DO Third trimester ([facility]); 31 weeks gestation of ([facility]) 07/26/2024 Clinisync Result Encounter [facility] External Department Unsolicited Yuri Lam, DO 07/26/2024 Bamboo flowsheet [facility]CP OB [address] [place] [address] Yuri Lam, DO 07/13/2024 10:30 AM EDT Routine [facility] BCP OB [address] [place] [address] Yuri Lam DO Third trimester ([facility]); 30 weeks gestation of ([facility]); H/O delivery, currently ([facility]) 07/13/2024 Bamboo flowsheet [facility] [address] [place] [address] Yuri Lam DO 06/28/2024 10:10 AM EDT Routine [facility] [address] [place] [address] Radha Avila PA Second trimester ([facility]); 27 weeks gestation of ([facility]) 06/28/2024 9:30 AM EDT Ancillary Procedure [facility] [address] [place] [address] H/O delivery, currently ([facility]) 06/13/2024 11:40 AM EDT Routine [facility] [address] [place] [address] Yuri Lam DO Second trimester ([facility]); 25 weeks gestation of ([facility]); H/O delivery, currently ([facility]); Vapes nicotine containing substance 06/13/2024 Bamboo flowsheet [facility] [address] [place] [address] Yuri Lam DO 05/30/2024 Results Follow-Up [facility] [address] [place] [address] Carol Winter LPN 05/25/2024 Orders Only [facility] [address] [place] [address] Carol Winter LPN 05/25/2024 Abstract [facility] [address] [place] [address] Yuri Lam DO from Last 3 Months [...] [address] [facility] [place] [address] Yuri Lam, DO [address] [facility] [place] [address] Procedures Procedure Name Priority Date/Time Associated Diagnosis Comments US OB BPP W NON-STRESS 08/24/2024 8:27 AM EDT US OB GROWTH 08/24/2024 8:27 AM EDT TBH URINE MICROSCOPIC ONLY Routine 08/22/2024 9:32 AM EDT TBH UA (CLEAN/CATCH) RECREATIONAL SPECIALIST/MICRO IF IND. Routine 08/22/2024 9:32 AM EDT US OB BPP W NON-STRESS 08/17/2024 10:41 AM EDT POCT URINALYSIS DIPSTICK Routine 08/17/2024 10:08 AM EDT Third trimester ([facility]) 35 weeks gestation of ([facility]) US OB BPP W NON-STRESS 08/09/2024 1:42 PM EDT US OB CERVICAL LENGTH 08/09/2024 1:33 PM EDT POCT URINALYSIS DIPSTICK Routine 08/09/2024 8:40 AM EDT Third trimester ([facility]) US OB BPP W NON-STRESS 08/03/2024 8:32 AM EDT US OB GROWTH 08/03/2024 8:32 AM EDT ALL CBC WITH AUTO DIFF Routine 12:13 PM EDT MLR HEMOGLOBIN A1C Routine 07/26/2024 12 :13 PM EDT POCT URINALYSIS DIPSTICK Routine 07/26/2024 11:35 AM EDT Third trimester ([facility]) POCT URINALYSIS DIPSTICK Routine 06/28/2024 10:19 AM EDT Second trimester ([facility]) US OB FOLLOW UP TRANSABDOMINAL APPROACH Routine 06/28/2024 10:08 AM EDT H/O delivery, currently ([facility]) from Last 3 Months Results * US OB GROWTH (08/24/2024 8:27 AM EDT) Only the most recent of2 resultswithin the time period is included. Anatomical Region Laterality Modality Other 08/24/2024 8:27 AM EDT Narrative 08/24/2024 8:29 AM EDT [address] [address] Ultrasound Report Signed Patient: HAKW KING MR#: [id number] : 2000 Acct:[id number] Age/Sex: 23 / F ADM Date: 08/23/24 Loc: US Attending Dr: Yuri Lam D.O. Ordering Physician: Yuri Lam D.O. Date of Service: 08/23/24 Procedure(s): US OB growth Accession Number(s): [id number] cc: Yuri Lam D.O.; Physician,Non-Staff Sindy The [address] [id number] Patient Name: HAWK KING MRN: TBH:[id number] date: 2000 Sex: F Assigned Patient Location: [facility] Current Patient Location: Accession/Order Number: [id number] Exam Date: 08/24/2024 08:18 Report Date: 08/24/2024 08:27 At the request of: YURI LAM DO Procedure: US OB BPP w non-stress CLINICAL INFORMATION: H/O LABOR O09.899 ULTRASOUND OB GROWTH COMPARISON: 08/02/2024 There is a single live intrauterine gestation in cephalic presentation. There is cardiac and somatic activity with heart rate of 147 bpm. The amniotic fluid volume measures 18.9 cm. This is in upper normal range. The following measurements were obtained: Biparietal diameter 8.9 cm 36 weeks 1 day 66% Head circumference 34.1 cm 39 weeks 1 day 91% Abdominal circumference 33.4 cm 37 weeks 2 days 91% Femur length 6.9 cm 35 weeks 3 days 33% The composite ultrasound age based on these measurements is 37 weeks 0 days +/- 2 weeks 4 days. The estimated date of delivery is 09/13/2024. The delivery date based on the comparison ultrasound was 09/07/2024 and based on last menstrual period, 09/21/2024. The estimated weight is 5 lbs. 6 oz. +/- 13 ounces (87%). US/US OB growth IMPRESSION: SINGLE LIVE INTRAUTERINE GESTATION WITH ULTRASOUND AGE OF 37 WEEKS 0 DAYS. BIOPHYSICAL PROFILE: COMPARISON: 08/16/2024 FINDINGS: TONE: 1 or more episodes of [...] greater than 2 cm [Y] 2/2 JACKELYN: 18.9 cm Total score: 8/8 IMPRESSION: NORMAL BIOPHYSICAL PROFILE Impression dictated by: Jing Hunt M.D. 08/24/2024 8:27 AM Dictation Location: [place] [address] Electronically authenticated by: [id number] Y Date: 08/24/2024 08:27 Dictated By: Jing Hunt M.D. Signed By: 08/24/24828 DD/ 6 TD/TT: Classroom Teacher: Procedure Note Radiology, Radiologist, MD - 08/24/2024 [place] [address] Ultrasound Report Signed Patient: HAWK KING CMR#: [id number] : 2000Acct:[id number] Age/Sex: 23 / FADM Date: 08/23/24 Loc: US Attending Dr: Yuri Lam D.O. Ordering Physician: Yuri Lam D.O. Date of Service: 08/23/24 Procedure(s): US OB growth Accession Number(s): [id number] cc: Yuri Lam D.O.; Physician,Non-Staff Sindy The [place] [id number] Patient Name: HAWK KING MRN: [id number] date: 2000 Sex: F Assigned Patient Location: [facility] Current Patient Location: Accession/Order Number: [id number] Exam Date: 08/24/2024 08:18 Report Date: 08/24/2024 08:27 At the request of: YURI CAROLE DO Procedure: US OB BPP w non-stress CLINICAL INFORMATION: H/O LABOR O09.899 ULTRASOUND OB GROWTH COMPARISON: 08/02/2024 There is a single live intrauterine gestation in cephalic presentation.There is cardiac and somatic activity with heart rate of 147 bpm. The amniotic fluid volume measures 18.9 cm. This is in upper normal range. The following measurements were obtained: Biparietal diameter 8.9 cm 36 weeks 1 day 66% Head circumference 34.1 cm 39 weeks 1 day 91% Abdominal circumference 33.4 cm 37 weeks 2 days 91% Femur length 6.9 cm 35 weeks 3 days 33% The composite ultrasound age based on these measurements is 37 weeks 0days +/- 2 weeks 4 days. The estimated date of delivery is 09/13/2024. Thedelivery date based on the comparison ultrasound was 09/07/2024 and based on last menstrual period, 09/21/2024. The estimated weight is 5 lbs. 6 oz.+/- 13 ounces (87%). US/US OB growth IMPRESSION: SINGLE LIVE INTRAUTERINE GESTATION WITH ULTRASOUND AGE OF 37 WEEKS 0 DAYS. BIOPHYSICAL PROFILE: COMPARISON: 08/16/2024 FINDINGS: TONE: 1 or more episodes of [...] greater than 2 cm [Y] 2/2 JACKELYN: 18.9 cm Total score: 8/8 IMPRESSION: NORMAL BIOPHYSICAL PROFILE Impression dictated by: Jing Hunt M.D. 08/24/2024 8:27 AM Dictation Location: [place] [address] Electronically authenticated by: [id number] Y Date: 508:27 Dictated By: Jing Hunt M.D. Signed By:08/24/24 0829 DD/ 6 TD/TT: Classroom Teacher: us Yuri Carole DO [facility] Final Result * US OB BPP W NON-STRESS (08/24/2024 8:27 AM EDT) Only the most recent of4 resultswithin the time period is included. Anatomical Region Laterality Modality Other 08/24/2024 8:27 AM EDT Narrative 08/24/2024 8:30 [place] [address] Ultrasound Report Signed Patient: HAWK KING MR#: [id number] : 2000 Acct:[id number] Age/Sex: 23 / F ADM Date: 08/23/24 Loc: US Attending Dr: Yuri Lam D.O. Ordering Physician: Yuri Lam D.O. Date of Service: 08/23/24 Procedure(s): US OB BPP w non-stress Accession Number(s): [id number] cc: Yuri Lam D.O.; Physician,Non-Staff M.DTaylor [place] [id number] Patient Name: HAWK KING MRN: [id number] date: 2000 Sex: F Assigned Patient Location: [facility] Current Patient Location: Accession/Order Number: [id number] Exam Date: 08/24/2024 08:18 Report Date: 08/24/2024 08:27 At the request of: YURI LAM DO Procedure: US OB BPP w non-stress CLINICAL INFORMATION: H/O LABOR O09.899 ULTRASOUND OB GROWTH COMPARISON: 08/02/2024 There is a single live intrauterine gestation in cephalic presentation. There is cardiac and somatic activity with heart rate of 147 bpm. The amniotic fluid volume measures 18.9 cm. This is in upper normal range. The following measurements were obtained: Biparietal diameter 8.9 cm 36 weeks 1 day 66% Head circumference 34.1 cm 39 weeks 1 day 91% Abdominal circumference 33.4 cm 37 weeks 2 days 91% Femur length 6.9 cm 35 weeks 3 days 33% The composite ultrasound age based on these measurements is 37 weeks 0 days +/- 2 weeks 4 days. The estimated date of delivery is 09/13/2024. The delivery date based on the comparison ultrasound was 09/07/2024 and based on last menstrual period, 09/21/2024. The estimated weight is 5 lbs. 6 oz. +/- 13 ounces (87%). US/US OB BPP w non-stress IMPRESSION: SINGLE LIVE INTRAUTERINE GESTATION WITH ULTRASOUND AGE OF 37 WEEKS 0 DAYS. BIOPHYSICAL PROFILE: COMPARISON: 08/16/2024 FINDINGS: TONE: 1 or more episodes of [...] greater than 2 cm [Y] 2/2 JACKELYN: 18.9 cm Total score: 8/8 IMPRESSION: NORMAL BIOPHYSICAL PROFILE Impression dictated by: Jing Hunt M.D. 08/24/2024 8:27 AM Dictation Location: [place] [address] Electronically authenticated by: [id number] Y Date: 08/24/2024 08:27 Dictated By: Jing Hunt M.D. Signed By: 08/24/24829 DD/ 6 TD/TT: Classroom Teacher: Procedure Note Radiology, Radiologist, - 08/24/2024 [place] [address] Ultrasound Report Signed Patient: HAWK KING CMR#: [id number] : 2000Acct:[id number] Age/Sex: 23 / FADM Date: 08/23/24 Loc: US Attending Dr: Yuri Lam D.O. Ordering Physician: Yuri Lam D.O. Date of Service: 08/23/24 Procedure(s): US OB BPP w non-stress Accession Number(s): [id number] cc: Yuri Lam D.O.; Physician,Non-Staff Sindy The [place] [address] Patient Name: HAWK KING MRN: TBH:[id number] date: 2000 Sex: F Assigned Patient Location: [facility] Current Patient Location: Accession/Order Number: [id number] Exam Date: 08/24/2024 08:18 Report Date: 08/24/2024 08:27 At the request of: YURI LAM DO Procedure: US OB BPP w non-stress CLINICAL INFORMATION: H/O LABOR O09.899 ULTRASOUND OB GROWTH COMPARISON: 08/02/2024 There is a single live intrauterine gestation in cephalic presentation.There is cardiac and somatic activity with heart rate of 147 bpm. The amniotic fluid volume measures 18.9 cm. This is in upper normal range. The following measurements were obtained: Biparietal diameter 8.9 cm 36 weeks 1 day 66% Head circumference 34.1 cm 39 weeks 1 day 91% Abdominal circumference 33.4 cm 37 weeks 2 days 91% Femur length 6.9 cm 35 weeks 3 days 33% The composite ultrasound age based on these measurements is 37 weeks 0days +/- 2 weeks 4 days. The estimated date of delivery is 09/13/2024. Thedelivery date based on the comparison ultrasound was 09/07/2024 and based on last menstrual period, 09/21/2024. The estimated weight is 5 lbs. 6 oz.+/- 13 ounces (87%). US/US OB BPP w non-stress IMPRESSION: SINGLE LIVE INTRAUTERINE GESTATION WITH ULTRASOUND AGE OF 37 WEEKS 0 DAYS. BIOPHYSICAL PROFILE: COMPARISON: 08/16/2024 FINDINGS: TONE: 1 or more episodes of [...] greater than 2 cm [Y] 2/2 JACKELYN: 18.9 cm Total score: 8/8 IMPRESSION: NORMAL BIOPHYSICAL PROFILE Impression dictated by: Jing Hunt M.D. 08/24/2024 8:27 AM Dictation Location: [place] [address] Electronically authenticated by: [id number] Y Date: 508:27 Dictated By: Jing Hunt M.D. Signed By:08/24/24829 DD/ 6 TD/TT: Classroom Teacher: Yuri Carole DO [facility] Final Result * (ABNORMAL) TBH URINE MICROSCOPIC ONLY (08/22/2024 [...] NONE SEEN #/LPF TBH URINE CULTURE INDICATED YES-[facility] [place]H 08/22/2024 9:32 AM EDT 08/22/2024 9:51 AM EDT Narrative [facility] - 08/22/2024 10:25 AM [facility]T [facility] Final Result [facility] TB * (ABNORMAL) TBH UA (CLEAN/CATCH) RECREATIONAL SPECIALIST/MICRO IF IND. (08/22/2024 9:32 AM EDT) COLOR [...] - 08/22/2024 10:25 AM EDT us Yuri Lam DO [facility]IN[facility] Final Result [facility] TB * (ABNORMAL) POCT urinalysis dipstick manually resulted [...] Positive Urine 08/17/2024 10:0 8 AM EDT Yuri Lam DO POINT OF CARE TEST ENTER/EDIT OR DERABLES Final Result * US OB CERVICAL LENGTH (08/09/2024 1:33 PM EDT) Anatomical Region Laterality Modality Other 08/09/2024 1:33 PM EDT Narrative 08/09/2024 1:36 [place] [address] Ultrasound Report Signed Patient: HAWK KING MR#: [id number] : 2000 Acct:[id number] Age/Sex: 23 / F ADM Date: 08/09/24 Loc: [facility] 250-[address]: Yuri Lam D.O. Ordering Physician: Yuri Lam D.O. Date of Service: 08/09/24 Procedure(s): US OB cervical length Accession Number(s): [id number] cc: Yuri Lam D.O.; Physician,Non-Staff Sindy The [place] [id number] Patient Name: HAWK KING MRN: [facility]:[id number] date: 2000 Sex: F Assigned Patient Location: [facility] Current Patient Location: [facility] Accession/Order Number: [id number] Exam Date: 08/09/2024 13:32 Report Date: 08/09/2024 [...] Jr., D.O. 08/09/2024 1:33 PM Dictation Location: [place] [address] Electronically authenticated by: [id number] Y Date: 08/09/2024 13:33 Dictated By: Wojciceh Farah M.D. Signed By: 08/09/24 1336 DD/ 1333 TD/TT: Classroom Teacher: Procedure Note Radiology, Radiologist, MD - 08/09/2024 [place] [address] Ultrasound Report Signed Patient: HAWK KING CMR#: [id number] : 2000Acct:[id number] Age/Sex: 23 / FADM Date: 08/09/24 Loc: [facility] 250-[address]: Yuri Lam D.O. Ordering Physician: Yuri Lam D.O. Date of Service: 08/09/24 Procedure(s): US OB cervical length Accession Number(s): [id number] cc: Yuri Lam D.O.; Physician,Non-Staff Sindy [place] [id number] Patient Name: HAWK KING MRN: [facility]:[id number] date: 2000 Sex: F Assigned Patient Location: [facility] Current Patient Location: [facility] Accession/Order Number: [id number] Exam Date: 08/09/2024 13:32 Report Date: 08/09/2024 [...] Jr., D.O. 08/09/2024 1:33 PM Dictation Location: [place] [address] Electronically authenticated by: [id number] Y Date: 3:33 Dictated By: Wojciech Farah M.D. Signed By:08/09/24 1336 DD/ 1333 TD/TT: Classroom Teacher: us Yuri Lam DO [facility] Final Result * MLR HEMOGLOBIN A1C (07/26/2024 12:13 PM EDT) GLYCOHEMOGLOBIN A1C 4.8 4.5 - 6.2 % [facility] Comment: ADA RECOMMENDED LIMIT 4.0 - 6.0 ADA THERAPEUTIC TARGET < 7.0 ACTION SUGGESTED > 7.0 ESTIMATED AVERAGE GLUCOSE 91 mg/dL TB 07/26/2024 12:1 3 PM EDT 07/26/2024 12:39 PM EDT Narrative CL[facility] - 07/26/2024 1:18 PM EDT Yuri Lam DO [facility] Final Result [facility] TB * (ABNORMAL) ALL CBC WITH AUTO DIFF (07/26/2024 12:13 PM EDT) Pathologist [facility] TB WBC 10.4 4.0 - 11.0 10 [...] PM EDT 07/26/2024 12:39 PM EDT Narrative [facility] - 07/26/2024 1:24 PM EDT us Yuri Carole DO CL[facility] Final Result [facility] TB * US OB follow up transabdominal [...] II, MD, PHD at 30-Jun-2024 12:16:48 PM [facility] Procedure Note Ann-Marie Stone MD - 06/30/2024 EXAM: US OB FOLLOW [...] signed by ANN-MARIE STONE II, MD, PHD [id number] 12:16:48 PM [facility] us Yuri Carole DO IMG OB US PROCEDURES Final Resul t from Last 3 Months Insurance [id number] [place] [id number] [employer] [place]ICA[place] Care Teams Dry Box Operator Relationship Specialty Start Date End Date Ann-Marie Ash MD [address] [place] [address] PCP - General Family Medicine 07/03/22
--- OUTSIDE RECORDS SUMMARY | 2024-08-24 23:02 | XMS_ITS | Encounter Summary ---
Author Organization [facility] Address [address] [place] [address] Care Team Providers Care Instrument Mechanic Weapons System Name Role Phone Orlando Ash MD Primary Care Provider [phone] Encounter Details Date Type Department Care Team (Late Contact Info) Description 02/25/2024 Abstract [facility] [address] [place] [address] Eusebio Lam DO [address] [place] [id number] Social History Tobacco Use Types Packs/Day Years [...] 08/30/2024 11:00 AM EDT Routine [facility] OB [address] [place] [address] Eusebio Lam DO [facility] [place], [place] [id number] documented as of this encounter Visit Diagnoses Not on filedocumented in this encounter Care Teams Instrument Mechanic Weapons System Relationship Specialty Start Date End Date Orlando Ash MD [address] [place] [address] PCP - General Family Medicine 07/03/22 documented as of this encounter
--- OUTSIDE RECORDS SUMMARY | 2024-08-24 23:02 | XMS_ITS | Encounter Summary ---
Author Organization [facility] Address [address] [place] [address] Care Team Providers Care Carpenter Assistant Installer Name Role Phone Orlando Ash MD Primary Care Provider [phone] Encounter Details Date Type Department Care Team (Late st Contact Info) Description 08/24/2024 Clinisync Result Encounter N[facility]S External Department Unsolicited Yuri Lam DO [address] [place], [place] [address] Social History Tobacco Use Types Packs/Day Years [...] [facility] BCP OB [address] [place] [address] Yuri Lam DO [address] [place] [address] documented as of this encounter Procedures Procedure Name Priority Date/Time Associated Diagnosis Comments US OB GROWTH 08/24/2024 8:27 AM EDT documented in this encounter Results * US OB GROWTH (08/24/2024 8:27 AM EDT) Anatomical Region Laterality Modality Other 08/24/2024 8:27 AM EDT Narrative 08/24/2024 8:29 [place] [address] Ultrasound Report Signed Patient: HAWK KING MR#: [id number] : 2000 Acct:[id number] Age/Sex: 23 / F ADM Date: 08/23/24 Loc: US Attending Dr: Yuri Lam D.O. Ordering Physician: Yuri Lam D.O. Date of Service: 08/23/24 Procedure(s): US OB growth Accession Number(s): [id number] cc: Yuri Lam D.O.; Physician,Non-Staff M.DTaylor The [place] [id number] Patient Name: HAWK KING MRN: [facility]:[id number] date: 2000 Sex: F Assigned Patient Location: [facility] Current Patient Location: Accession/Order Number: [id number] Exam Date: 08/24/2024 08:18 Report Date: 08/24/2024 [...] [Y] 2/2 JACKELYN: 18.9 cm Total score: 09/15 IMPRESSION: NORMAL BIOPHYSICAL PROFILE Impression dictated by: Jing Hunt M.D. 08/24/2024 8:27 AM Dictation Location: [place] [address] Electronically authenticated by: [id number] Y Date: 08/24/2024 08:27 Dictated By: Jing Hunt M.D. Signed By: 08/24/2429 DD/ 6 TD/TT: Comfort Filler: Procedure Note Radiology, Radiologist, MD - 08/24/2024 [place] [address] Ultrasound Report Signed Patient: HAWK KING CMR#: [id number] : 2000Acct:[id number] Age/Sex: 23 / FADM Date: 08/23/24 Loc: US Attending Dr: Yuri Lam D.O. Ordering Physician: Yuri Lam D.O. Date of Service: 08/23/24 Procedure(s): US OB growth Accession Number(s): [id number] cc: Yuri Lam D.O.; Physician,Non-Staff Sindy The [place] [id number] Patient Name: HAWK KING MRN: [id number] date: 2000 Sex: F Assigned Patient Location: [facility] Current Patient Location: Accession/Order Number: [id number] Exam Date: 08/24/2024 08:18 Report Date: 08/24/2024 [...] [Y] 2/2 JACKELYN: 18.9 cm Total score: 09/15 IMPRESSION: NORMAL BIOPHYSICAL PROFILE Impression dictated by: Jing Hunt M.D. 08/24/2024 8:27 AM Dictation Location: [place] [address] Electronically authenticated by: [id number] Y Date: 508:27 Dictated By: Jing Hunt M.D. Signed By:08/24/24828 DD/ 6 TD/TT: Comfort Filler: us Yuri Carole DO [facility] Final Result documented in this encounter Visit Diagnoses Not on filedocumented in this encounter Care Teams Carpenter Assistant Installer Relationship Specialty Start Date End Date Orlando Ash MD [address] [place] [address] PCP - General Family Medicine 07/03/22 documented as of this encounter
--- OUTSIDE RECORDS SUMMARY | 2024-08-24 23:02 | XMS_ITS | Encounter Summary ---
Author Organization [facility] Address [address] [place] [address] Care Team Providers Care Vtc Technician Name Role Phone Orlando Ash MD Primary Care Provider [phone] Encounter Details Date Type Department Care Team (Late Contact Info) Description 08/23/2024 Bamboo flowsheet [facility] OB [address] [place] [address] Eusebio Lam DO [address] [place] [address] Marisa [place], [place] [address] Social History Tobacco Use Types Packs/Day Years [...] Description 08/30/2024 11:00 AM EDT Routine [facility] OB [address] [place] [address] Eusebio Lam [facility] [address] [place], [facility] documented as of this encounter Visit Diagnoses Not on filedocumented in this encounter Care Teams Vtc Technician Relationship Specialty Start Date End Date Orlando Ash MD [address] [place] [address] PCP - General Family Medicine 07/03/22 documented as of this encounter
--- OUTSIDE RECORDS SUMMARY | 2024-08-24 23:02 | XMS_ITS | Encounter Summary ---
Author Organization [facility] Address [address] [place] [address] Care Team Providers Care Spray Painting Machine Operator Name Role Phone Orlando Ash MD Primary Care Provider [phone] Encounter Details Date Type Department Care Team (Late st Contact Info) Description 05/25/2024 Orders Only [facility] [address] [facility] [address] Carol Winter LPN [address] [place] [address] Social History Tobacco Use Types Packs/Day Years [...] Description 08/30/2024 11:00 AM EDT Routine [facility] [address] [place] [address] Eusebio Lam DO [address] [facility] [address] Jasmin [place], [place] [address] documented as of this encounter Procedures Procedure Name Priority Date/Time Associated Diagnosis Comments PAP SMEAR Routine 05/16/2024 12:00 AM EDT documented in this encounter Results * Pap Smear (05/16/2024 12:00 AM EDT) Swab Cervical swab / Unknown us Eusebio Carole DO LAB CYTOLOGY ORDERABLES Final Re sult EXTERNAL LAB documented in this encounter Visit Diagnoses Not on filedocumented in this encounter Care Teams Spray Painting Machine Operator Relationship Specialty Start Date End Date Orlando Ash MD [address] [place] [address] PCP - General Family Medicine 07/03/22 documented as of this encounter
--- OUTSIDE RECORDS SUMMARY | 2024-08-24 23:02 | XMS_ITS | Encounter Summary ---
Author Organization [facility] Address [address] [facility] [place] [address] Care Team Providers Care Sprinkler Irrigation Equipment Mechanic Name Role Phone Orlando Ash MD Primary Care Provider [phone] Encounter Details Date Type Department Care Team (Late Contact Info) Description 03/08/2024 Abstract [facility] [address] [place] [id number] Eusebio Lam DO [address] [place] [id number] Social History Tobacco Use Types Packs/Day Years [...] [facility] [address] [place] [address] Eusebio Lam DO [facility] [place], [place] [id number] documented as of this encounter Visit Diagnoses Not on filedocumented in this encounter Care Teams Sprinkler Irrigation Equipment Mechanic Relationship Specialty Start Date End Date Orlando Ash MD [address] [place] [address] PCP - General Family Medicine 07/03/22 documented as of this encounter
--- OUTSIDE RECORDS SUMMARY | 2024-08-24 23:02 | XMS_ITS | Encounter Summary ---
Author Organization [employer] [facility] tem Address [id number] [address] [place] [address] Care Team Providers Care Garment Tag Stringer Name Role Phone Orlando Ash MD Primary Care Provider [phone] Encounter Details Date Type Department Care Team (Late st Contact Info) Description 07/21/2021 Orders Only [facility] [address] [facility] [address] [place] [phone] Genny Mosquera, MARTY care in first trimester; [...] documented as of this encounter Care Teams Garment Tag Stringer Relationship Specialty Start Date End Date Orlando Ash MD [address] [place] [address] PCP - General Family Medicine 06/09/18 documented as of this encounter
--- OUTSIDE RECORDS SUMMARY | 2024-08-24 23:02 | XMS_ITS | Encounter Summary ---
Author Organization [facility] tem Address [id number] [address] [place] [address] Care Team Providers Care Economic History Teacher Name Role Phone Orlando Ash MD Primary Care Provider [phone] Encounter Details Date Type Department Care Team (Late st Contact Info) Description 04/21/2024 Orders Only [facility] [address] [place] [address] Eusebio Lam R, DO [address] [facility] [place] [address] Social History Tobacco Use Types Packs/Day Years [...] documented as of this encounter Care Teams Economic History Teacher Relationship Specialty Start Date End Date Orlando Ash MD [address] [place] [address] PCP - General Family Medicine 06/09/18 documented as of this encounter
--- OUTSIDE RECORDS SUMMARY | 2024-08-24 23:03 | XMS_ITS | Encounter Summary ---
Author Organization [facility] Address [address] [place] [address] Care Team Providers Care Business Agent Name Role Phone Orlando Ash MD Primary Care Provider [phone] Encounter Details Date Type Department Care Team (Late st Contact Info) Description 08/17/2024 Clinisync Result Encounter [facility] External Department Unsolicited Yuri Lam DO [address] [place], [facility] Social History Tobacco Use Types Packs/Day Years [...] [facility] [address] [place] [phone] Yuri Lam DO [address] [place] [address] documented as of this encounter Procedures Procedure Name Priority Date/Time Associated Diagnosis Comments US OB BPP W NON-STRESS 08/17/2024 10:41 AM EDT documented in this encounter Results * US OB BPP W NON-STRESS (08/17/2024 10:41 AM EDT) Anatomical Region Laterality Modality Other 08/17/2024 10:4 1 AM EDT Narrative 08/17/2024 10:44 [place] [address] Ultrasound Report Signed Patient: HAWK KING MR#: [id number] : 2000 Acct:[id number] Age/Sex: 23 / F ADM Date: 08/16/24 Loc: US Attending Dr: Yuri Lam D.O. Ordering Physician: Yuri Lam D.O. Date of Service: 08/16/24 Procedure(s): US OB BPP w non-stress Accession Number(s): [id number] cc: Yuri Lam D.O.; Physician,Non-Staff M.DTaylor The [place] [address] Patient Name: HAWK KING MRN: [id number] date: 2000 Sex: F Assigned Patient Location: [facility] Current Patient Location: [facility] Accession/Order Number: [id number] Exam Date: 08/17/2024 10:39 Report Date: 08/17/2024 [...] Hunt M.D. 08/17/2024 10:41 AM Dictation Location: [place] [address] Electronically authenticated by: [id number] Y Date: 08/17/2024 10:41 Dictated By: Jing Hunt M.D. Signed By: 08/17/24 1044 DD/ 1041 TD/TT: Specimen Preparation Assistant: Procedure Note Radiology, Radiologist, MD - 08/17/2024 [place] [address] Ultrasound Report Signed Patient: HAWK KING CMR#: [id number] : 2000Acct:[id number] Age/Sex: 23 / FADM Date: 08/16/24 Loc: US Attending Dr: Yuri Lam D.O. Ordering Physician: Yuri Lam D.O. Date of Service: 08/16/24 Procedure(s): US OB BPP w non-stress Accession Number(s): [id number] cc: Yuri Lam D.O.; Physician,Non-Staff Sindy [place] [address] Patient Name: HAWK KING MRN: [id number] date: 2000 Sex: F Assigned Patient Location: [facility] Current Patient Location: [facility] Accession/Order Number: [id number] Exam Date: 08/17/2024 10:39 Report Date: 08/17/2024 [...] Hunt M.D. 08/17/2024 10:41 AM Dictation Location: [place] [address] Electronically authenticated by: [id number] Y Date: 0:41 Dictated By: Jing Hunt M.D. Signed By:08/17/24 1044 DD/ 1041 TD/TT: Specimen Preparation Assistant: us Yuri Carole DO [facility] Final Result documented in this encounter Visit Diagnoses Not on filedocumented in this encounter Care Teams Business Agent Relationship Specialty Start Date End Date Orlando Ash MD [address] [place] [address] PCP - General Family Medicine 07/03/22 documented as of this encounter
--- OUTSIDE RECORDS SUMMARY | 2024-08-24 23:03 | XMS_ITS | Encounter Summary ---
Author Organization [facility] Address [address] [place] [address] Care Team Providers Care Flight Crew Time Clerk Name Role Phone Janee Del Valle MD Unavailable Orlando Ash MD Primary Care Provider Encounter Details Date Type Department Care Team (Late st Contact Info) Description 07/03/2022 Clinisync Result Encounter [facility] External Department Unsolicited Eusebio Lam, DO [address] [place] [address] Social History Tobacco Use Types Packs/Day Years [...] Routine [facility] [address] [place] [phone] Eusebio Lam DO [address] [place] [address] documented as of this encounter Procedures Procedure [...] Date: 2022-07-03 17:20 us Eusebio Carole DO [facility] Final Result documented in this encounter Visit Diagnoses Not on filedocumented in this encounter Care Teams Flight Crew Time Clerk Relationship Specialty Start Date End Date Janee Del Valle MD [address] [place] [address] PCP - [employer] 03/11/22 Orlando Ash MD [address] [place] [address] PCP - General Family Medicine 07/03/22 documented as of this encounter
--- OUTSIDE RECORDS SUMMARY | 2024-08-24 23:03 | XMS_ITS | CCD ---
Author Organization [facility] Care Team Providers Care Legal Instructor Name Role Phone ANN-MARIE ASH Primary Care Unavailable KARIS MARI Attending Unavailable ASH, ANN-MARIE Dc Primary Care Unavailable KOSTA LOZANO Attending Unavailable ASH, ANN-MARIE Dc Primary Care Unavailable ANN-MARIE ENGLE Attending Unavailable ASH, ANN-MARIE Dc Primary Care Unavailable VARUN BARTHOLOMEW Attending Unavailable Mihir, Ann-Marie Dc Primary Care Provider TRUDY RAMAN Referring Unavailable MIHIR, ANN-MARIE Dc Primary Care Unavailable ASH, ANN-MARIE Dc Primary Care Unavailable ALEXANDRIA SIDDIQUI Attending Unavailable ASH, ANN-MARIE A Primary Care Unavailable VICTORINO SULLIVAN Attending Unavailable Ash, Ann-Marie Vanda Primary Care Provider [phone] CAROLE ., DR WELCH Consulting Unavailable CAROLE [...] Unavailable CAROLE ., DR WELCH Admitting Unavailable [place], DR CHEMA Argueta Consulting Unavailable MISC, DR GANDARA Primary Care Unavailable CAROLE ., DR WELCH Consulting Unavailable REQUEST, DR GARCIA LISTED Consulting Unavaila ble CAROLE ., DR WELCH Consulting Unavailable CAROLE ., DR WELCH Attending Unavailable CAROLE ., DR WELCH Admitting Unavailable CAROLE ., DR WELCH Consulting Unavailable ACROLE ., DR WELCH Attending Unavailable CAROLE ., [...] DEL VALLE, Ann-Marie Dc Primary Care Provider [phone] MIHIR DEL VALLE, ANN-MARIE Dc Primary Care [...] AVILA Referring Unavailable EUSEBIO LAM Attending Unavailable CAROLE, EUSEBIO Attending Unavailable CAROLE, EUSEBIO Attending Unavailable RADHA AVILA Attending Unavailable CAROLE, EUSEBIO Attending Unavailable CAROLE, EUSEBIO Attending Unavailable RADHA DIEGO Attending Unavailable CAROLE, EUSEBIO Attending Unavailable Allergies Allergy Classification Reported Allergen(s) Allergy Type Date of Onset Reaction(s) Facility (1 source) No Known Medication Allergies; Translations: [No Known Medication Allergies] Propensity to adverse reactions to drug (disorder) [facility] Repository Medications Current Medications Medication Drug Class(es) [...] of ] 08-09-2024 Episodic Residual codes; unclassified (4 sources) Gestation period, 35 weeks; Translations: [35 [...] Translations: [34 WEEKS GESTATION OF ] Onset: 11-30-2022 Episodic Residual codes; unclassified (1 source) 33 [...] Value Interpretation Reference Range Facility No Panel Informationon 08-24 Radiology Study observation (narrative) [facility] OB BPP W NON-STRESS on 08-24-2024 [place] [address] Ultrasound Report Signed Patient: HAWK KING MR#: [id number] : 2000 Acct:[id number] Age/Sex: 23 / F ADM Date: 08/23/24 Loc: US Attending Dr: Eusebio Lam D.O. Ordering Physician: Eusebio Lam D.O. Date of Service: 08/23/24 Procedure(s): US OB BPP w non-stress Accession Number(s): [id number] cc: Eusebio Lam D.O.; Physician,Non-Staff M.Sigrid The [place] [id number] Patient Name: HAWK GRAVESN: TBH:[id number] date: 2000 Sex: F Assigned Patient Location: [facility] Current Patient Location: Accession/Order Number: [id number] Exam Date: 08/24/2024 08:18 Report Date: 08/24/2024 08:27 At the request of: EUSEBIO LAM DO [...] greater than 2 cm [Y] 2/2 DALTON: 18.9 cm Total score: 09/15 IMPRESSION: NORMAL BIOPHYSICAL PROFILE Impression dictated by: Jing Hunt M.D. 08/24/2024 8:27 AM Dictation Location: [place] [address] Electronically authenticated by: [id number] Y Date: 08/24/2024 08:27 Dictated By: Jing Hunt M.D. Signed By: 08/24/24829 DD/ 6 TD/TT: Acrobatic Dancer: [facility] Radiology, Radiologist, - 08/24/2024 [place] [address] Ultrasound Report Signed Patient: HAWK KING MR#: [id number] : 2000 Acct:[id number] Age/Sex: 23 / F ADM Date: 08/23/24 Loc: US Attending Dr: Eusebio Lam D.O. Ordering Physician: Eusebio Lam D.O. Date of Service: 08/23/24 Procedure(s): US OB BPP w non-stress Accession Number(s): [id number] cc: Eusebio Lam D.O.; Physician,Non-Staff Sindy The [place] [id number] Patient Name: HAWK KING MRN: [facility]:[id number] date: 2000 Sex: F Assigned Patient Location: [facility] Current Patient Location: Accession/Order Number: [id number] Exam Date: 08/24/2024 08:18 Report Date: 08/24/2024 08:27 At the request of: EUSEBIO LAM DO [...] greater than 2 cm [Y] 2/2 DALTON: 18.9 cm Total score: 09/15 IMPRESSION: NORMAL BIOPHYSICAL PROFILE Impression dictated by: Jing Hunt M.D. 08/24/2024 8:27 AM Dictation Location: [place] [address] Electronically authenticated by: [id number] Y Date: 08/24/2024 08:27 Dictated By: Jing Hunt M.D. Signed By: 08/24/24829 DD/ 6 TD/TT: Acrobatic Dancer: [facility] US OB BPP W NON-STRESS Ordered By: Radiologist Radiology on 08-24-2024 [facility] Work Phone: US OB GROWTHon 08-24-2024 [place] [address] Ultrasound Report Signed Patient: HAWK KING MR#: [id number] : 2000 Acct:[id number] Age/Sex: 23 / F ADM Date: 08/23/24 Loc: US Attending Dr: Eusebio Lam D.O. Ordering Physician: Eusebio Lam D.O. Date of Service: 08/23/24 Procedure(s): US OB growth Accession Number(s): [id number] cc: Carole,Eusebio D.O.; Physician,Non-Staff Sindy [place] [id number] Patient Name: HAWK KING MRN: [id number] date: 2000 Sex: F Assigned Patient Location: [facility] Current Patient Location: Accession/Order Number: [id number] Exam Date: 08/24/2024 08:18 Report Date: 08/24/2024 08:27 At the request of: EUSEBIO LAM DO [...] greater than 2 cm [Y] 2/2 DALTON: 18.9 cm Total score: 09/15 IMPRESSION: NORMAL BIOPHYSICAL PROFILE Impression dictated by: Jing Hunt M.D. 08/24/2024 8:27 AM Dictation Location: [place] [address] Electronically authenticated by: [id number] Y Date: 08/24/2024 08:27 Dictated By: Jing Hunt M.D. Signed By: 08/24/2429 DD/ 6 TD/TT: Acrobatic Dancer: [facility] Radiology, Radiologist, - 08/24/2024 [place] [address] Ultrasound Report Signed Patient: HAWK KING MR#: [id number] : 2000 Acct:[id number] Age/Sex: 23 / F ADM Date: 08/23/24 Loc: US Attending Dr: Eusebio Lam D.O. Ordering Physician: Eusebio Lam D.O. Date of Service: 08/23/24 Procedure(s): US OB growth Accession Number(s): [id number] cc: Eusebio Lam D.O.; Physician,Non-Staff Sindy The [place] [address] Patient Name: HAWK KING MRN: [facility]:[id number] date: 2000 Sex: F Assigned Patient Location: [facility] Current Patient Location: Accession/Order Number: [id number] Exam Date: 08/24/2024 08:18 Report Date: 08/24/2024 08:27 At the request of: EUSEBIO LAM DO [...] greater than 2 cm [Y] 2/2 DALTON: 18.9 cm Total score: 8/8 IMPRESSION: NORMAL BIOPHYSICAL PROFILE Impression dictated by: Jing Hunt M.D. 08/24/2024 8:27 AM Dictation Location: [place] [address] Electronically authenticated by: [id number] Y Date: 08/24/2024 08:27 Dictated By: Jing Hunt M.D. Signed By: 08/24/2429 DD/ 6 TD/TT: Acrobatic Dancer: [facility] OB GROWTHOrdered By: Gerald ologist Radiology on 08-24-2024 [facility] Work Phone: [facility] UA (CLEAN/CATCH) AUTOMOTIVE GLASS TECHNICIAN/IVETTE RO IF IND.on 08-22-2024 BILIRUBIN URINE Negative NEGATIVE [facility] BLOOD URINE Negative NEGATIVE [facility] Clarity (U) CLEAR CLEAR [facility] Color (U) LT. YELLOW YELLOW [facility] GLUCOSE URINE UA 100 mg/dL Abnormal NEGATIVE [facility] Interpretation and review of laboratory results Abnormal [facility] Ketones Ql (U) TRACE Abnormal NEGATIVE mg/dL [facility] Leukocyte esterase Test strip Ql (U) SMALL Abnormal NEGATIVE [facility] NITRITE URINE Negative NEGATIVE [facility] pH (U) 6.0 [pH] 5.0 - 9.0 [facility] PROTEIN URINE TRACE NEG/TRACE mg/dL [facility] SPECIFIC GRAVITY URINE 1.025 1.005 - 1.025 [facility] URINE MICROSCOPIC INDICATED YES [facility] UROBILINOGEN URINE 0.2 EU/dL 0.2 - 1.0 EU/dL [facility] OB BPP W NON-STRESS on 08-17-2024 [place] [address] Ultrasound Report Signed Patient: HAWK KING MR#: [id number] : 2000 Acct:[id number] Age/Sex: 23 / F ADM Date: 08/16/24 Loc: US Attending Dr: Eusebio Lam D.O. Ordering Physician: Eusebio Lam D.O. Date of Service: 08/16/24 Procedure(s): US OB BPP w non-stress Accession Number(s): [id number] cc: Eusebio Lam D.O.; Physician,Non-Staff M.DTaylor The [place] [address] Patient Name: HAWK KING MRN: [facility]:[id number] date: 2000 Sex: F Assigned Patient Location: [facility] Current Patient Location: [facility] Accession/Order Number: [id number] Exam Date: 08/17/2024 10:39 Report Date: 08/17/2024 [...] Hunt M.D. 08/17/2024 10:41 AM Dictation Location: [place] [address] Electronically authenticated by: [id number] Y Date: 08/17/2024 10:41 Dictated By: Jing Hunt M.D. Signed By: 08/17/24 1044 DD/ 1041 TD/TT: Acrobatic Dancer: [facility] Radiology, Radiologist, MD - 08/17/2024 [place] [address] Ultrasound Report Signed Patient: HAWK KING MR#: [id number] : 2000 Acct:[id number] Age/Sex: 23 / F ADM Date: 08/16/24 Loc: US Attending Dr: Eusebio Lam D.O. Ordering Physician: Eusebio Lam D.O. Date of Service: 08/16/24 Procedure(s): US OB BPP w non-stress Accession Number(s): [id number] cc: Eusebio Lam D.O.; Physician,Non-Staff Sindy The [place] [address] Patient Name: HAWK KING MRN: [facility]:[id number] date: 2000 Sex: F Assigned Patient Location: [facility] Current Patient Location: [facility] Accession/Order Number: [id number] Exam Date: 08/17/2024 10:39 Report Date: 08/17/2024 [...] is in upper normal range. Total score: 8/ US/US OB BPP w non-stress IMPRESSION: NORMAL BIOPHYSICAL PROFILE. SUSPECTED NUCHAL CORD. Impression dictated by: Jing Hunt M.D. 08/17/2024 10:41 AM Dictation Location: [place] [address] Electronically authenticated by: [id number] Y Date: 08/17/2024 10:41 Dictated By: Jing Hunt M.D. Signed By: 08/17/24 1044 DD/ 1041 TD/TT: Acrobatic Dancer: [facility] Radiology Study observation (narrative) [facility] US OB BPP W NON-STRESS Ordered By: Radiologist Radiology on 08-17-2024 [facility] Work Phone: Urinalysis macro (dipstick) panel (U)on 08-17-2024 Bilirubin, UA Negative Negative - 4(70) +++ mg/dL [facility] Blood, UA Negative Negative - 50 Jian/mcL [facility] Clarity, UA Clear [facility] Color, UA Yellow [facility] Glucose, UA Negative Negative - 1999(110) ++++ mg/dL [facility] Interpretation and review of laboratory results Abnormal [facility] Ketones, UA Negative Negative - 160(16) ++++ mg/dL [facility] Leukocytes, UA Negative Negative - 500+++ Heriberto/mcL [facility] Nitrite, UA Negative Negative - Positive [facility] pH, UA 6.5 5 - 9 [facility] Protein, UA Negative Negative - 1999(20) ++++ mg/dL [facility] Spec Grav, UA 1.02 1 - 1.03 [facility] Urobilinogen, UA 1.0 0.2 - 12 mg/dL [facility] US OB CERVICAL LENGTHon 07-0 [place] [address] Ultrasound Report Signed Patient: HAWK KING MR#: [id number] : 2000 Acct:[id number] Age/Sex: 23 / F ADM Date: 08/09/24 Loc: [facility] 250-[address]: Eusebio Lam D.O. Ordering Physician: Eusebio Lam D.O. Date of Service: 08/09/24 Procedure(s): US OB cervical length Accession Number(s): [id number] cc: Eusebio Lam D.O.; Physician,Non-Staff Sindy [address] [address] Patient Name: HAWK KING MRN: [facility]:[id number] date: 2000 Sex: F Assigned Patient Location: [facility] Current Patient Location: [facility] Accession/Order Number: [id number] Exam Date: 08/09/2024 13:32 Report Date: 08/09/2024 [...] 08/09/2024 1:33 PM Dictation Location: [place] [address] Electronically authenticated by: [id number] Y Date: 08/09/2024 13:33 Dictated By: Wojciech Farah M.D. Signed By: 08/09/24 1336 DD/ 1333 TD/TT: Acrobatic Dancer: [facility] Radiology, Radiologist, MD - 08/09/2024 [place] [address] Ultrasound Report Signed Patient: HAWK KING MR#: [id number] : 2000 Acct:[id number] Age/Sex: 23 / F ADM Date: 08/09/24 Loc: [facility] 250-[address]: Eusebio Lam D.O. Ordering Physician: Eusebio Lam D.O. Date of Service: 08/09/24 Procedure(s): US OB cervical length Accession Number(s): [id number] cc: Eusebio Lam D.O.; Physician,Non-Staff Sindy The [address] [address] Patient Name: HAWK KING MRN: [facility]:[id number] date: 2000 Sex: F Assigned Patient Location: [facility] Current Patient Location: [facility] Accession/Order Number: [id number] Exam Date: 08/09/2024 13:32 Report Date: 08/09/2024 [...] 08/09/2024 1:33 PM Dictation Location: [place] [address] Electronically authenticated by: [id number] Y Date: 08/09/2024 13:33 Dictated By: Wojciech Farah M.D. Signed By: 08/09/24 1336 DD/ 1333 TD/TT: Acrobatic Dancer: [facility] Radiology Study observation (narrative) [facility] US OB CERVICAL LENGTHOrdered By: Radiologist Radiology on 08-09-2024 [facility] Work Phone: US OB BPP W NON-STRESS on 08-09-2024 [place] [address] Ultrasound Report Signed Patient: HAWK KING MR#: [id number] : 2000 Acct:[id number] Age/Sex: 23 / F ADM Date: 08/09/24 Loc: US Attending Dr: Eusebio Lam D.O. Ordering Physician: Eusebio Lam D.O. Date of Service: 08/09/24 Procedure(s): US OB BPP w non-stress Accession Number(s): [id number] cc: Eusebio Lam D.O.; Physician,Non-Staff M.DTaylor [place] [address] Patient Name: HAWK KING MRN: [id number]:[id number] date: 2000 Sex: F Assigned Patient Location: [facility] Current Patient Location: Accession/Order Number: [id number] Exam Date: 08/09/2024 13:42 Report Date: 08/09/2024 13:42 At the request of: EUSEBIO LAM DO Procedure: US OB BPP w non-stress Biophysical profile. Reason for exam: Large for dates. COMPARISON: BPP 08/02/2024. TECHNIQUE: Transabdominal imaging of the gravid uterus was obtained. FINDINGS: Crop Duster Helper reports a BPP of 8 out of 8. DALTON is normal at 17.9 cm. heart rate 167 bpm. US/US OB BPP w non-stress Impression: BPP 8 out of 8. Impression dictated by: Wojciech Farah Jr. DTaylorOTaylor 08/09/2024 1:42 PM Dictation Location: [place] [address] Electronically authenticated by: [id number] Y Date: 08/09/2024 13:42 Dictated By: Wojciech Farah M.D. Signed By: 08/09/24 1345 DD/ 41 TD/TT: Acrobatic Dancer: [facility] Radiology, Radiologist, - 08/09/2024 [place] [address] Ultrasound Report Signed Patient: HAWK KING MR#: [id number] : 2000 Acct:[id number] Age/Sex: 23 / F ADM Date: 08/09/24 Loc: US Attending Dr: Eusebio Lam D.O. Ordering Physician: Eusebio Lam D.O. Date of Service: 08/09/24 Procedure(s): US OB BPP w non-stress Accession Number(s): [id number] cc: Eusebio Lam D.O.; Physician,Non-Staff Sindy The [place] [address] Patient Name: HAWK KING MRN: [facility]:[id number] date: 2000 Sex: F Assigned Patient Location: [facility] Current Patient Location: Accession/Order Number: [id number] Exam Date: 08/09/2024 13:42 Report Date: 08/09/2024 13:42 At the request of: EUSEBIO LAM DO Procedure: US OB BPP w non-stress Biophysical profile. Reason for exam: Large for dates. COMPARISON: BPP 08/02/2024. TECHNIQUE: Transabdominal imaging of the gravid uterus was obtained. FINDINGS: Crop Duster Helper reports a BPP of 8 out of 8. DALTON is normal at 17.9 cm. heart rate 167 bpm. US/US OB BPP w non-stress Impression: BPP 8 out of 8. Impression dictated by: Wojciech Farah Jr., D.O. 08/09/2024 1:42 PM Dictation Location: [place] [address] Electronically authenticated by: [id number] Y Date: 08/09/2024 13:42 Dictated By: Wojciech Farah M.D. Signed By: 08/09/24 1349 DD/ 1342 TD/TT: Acrobatic Dancer: [facility] Radiology Study observation (narrative) [facility] US OB BPP W NON-STRESS Ordered By: Radiologist Radiology on 08-09-2024 [facility] Work Phone: Urinalysis macro (dipstick) panel (U)on 08-09-2024 Bilirubin, UA Negative Negative - 4(70) +++ mg/dL [facility] Blood, UA Negative Negative - 50 Jian/mcL [facility] Clarity, UA Clear [facility] Color, UA Yellow [facility] Glucose, UA Negative Negative - 2000(110) ++++ mg/dL [facility] Interpretation and review of laboratory results Normal [facility] Ketones, UA Negative Negative - 160(16) ++++ mg/dL [facility] Leukocytes, UA Negative Negative - 500+++ Heriberto/mcL [facility] Nitrite, UA Negative Negative - Positive [facility] pH, UA 7 5 - 9 [facility] Protein, UA Negative Negative - 1999(20) ++++ mg/dL [facility] Spec Grav, UA 1.015 1 - 1.03 [facility] Urobilinogen, UA 0.2 0.2 - 12 mg/dL [facility] No Panel InformationOrdered By: Radiologist Radiology on 08-03-2024 [facility] Work Phone: No Panel Informationon 08-03 Radiology Study observation (narrative) [facility] US OB BPP W NON-STRESS on 08-03-2024 [place] [address] Ultrasound Report Signed Patient: HAWK KING MR#: [id number] : 2000 Acct:[id number] Age/Sex: 23 / F ADM Date: 08/02/24 Loc: US Attending Dr: Eusebio Lam D.O. Ordering Physician: Eusebio Lam D.O. Date of Service: 08/02/24 Procedure(s): US OB BPP w non-stress Accession Number(s): [id number] cc: Eusebio Lam D.O.; Physician,Non-Staff Sindy The [address] [address] Patient Name: HAWK KING MRN: [facility]:[id number] date: 2000 Sex: F Assigned Patient Location: [facility] Current Patient Location: Accession/Order Number: [id number] Exam Date: 08/03/2024 08:23 Report Date: 08/03/2024 08:32 At the request of: EUSEBIO LAM DO Procedure: US OB BPP w non-stress CLINICAL INFORMATION: H/O LABOR O09.899 ULTRASOUND OB GROWTH COMPARISON: None There is a single live intrauterine gestation in cephalic presentation. There is cardiac and somatic activity. The heart rate hwbtgixy775 beats per minute. The placenta is posterior. [...] [Y] 2/2 DALTON: 17.7 cm Total score: /8 IMPRESSION: UNREMARKABLE BIOPHYSICAL PROFILES. Impression dictated by: Jing Hunt M.D. 08/03/2024 8:32 AM Dictation Location: [place] [address] Electronically authenticated by: [id number] Y Date: 08/03/2024 08:32 Dictated By: Jing Hunt M.D. Signed By: 08/03/2435 DD/ 1 TD/TT: Acrobatic Dancer: [facility] Radiology, Radiologist, - 08/03/2024 [place] [address] Ultrasound Report Signed Patient: HAWK KING MR#: [id number] : 2000 Acct:[id number] Age/Sex: 23 / F ADM Date: 08/02/24 Loc: US Attending Dr: Eusebio Lam D.O. Ordering Physician: Eusebio Lam D.O. Date of Service: 08/02/24 Procedure(s): US OB BPP w non-stress Accession Number(s): [id number] cc: Eusebio Lam D.O.; Physician,Non-Staff Sindy The [place] [address] Patient Name: HAWK KING MRN: [facility]:[id number] date: 2000 Sex: F Assigned Patient Location: [facility] Current Patient Location: Accession/Order Number: [id number] Exam Date: 08/03/2024 08:23 Report Date: 08/03/2024 08:32 At the request of: EUSEBIO LAM DO Procedure: US OB BPP w non-stress CLINICAL INFORMATION: H/O LABOR O09.899 ULTRASOUND OB GROWTH COMPARISON: None There is a single live intrauterine gestation in cephalic presentation. There is cardiac and somatic activity. The heart rate nbvclurf965 beats per minute. The placenta is posterior. [...] Hunt M.D. 08/03/2024 8:32 AM Dictation Location: [place] [address] Electronically authenticated by: [id number] Y Date: 08/03/2024 08:32 Dictated By: Jing Hunt M.D. Signed By: 08/03/24 0835 DD/ 0832 TD/TT: Acrobatic Dancer: [facility] OB GROWTHon 08-03-[address] [address] Ultrasound Report Signed Patient: HAWK KING MR#: [id number] : 2000 Acct:[id number] Age/Sex: 23 / F ADM Date: 08/02/24 Loc: US Attending Dr: Eusebio Lam D.O. Ordering Physician: Eusebio Lam D.O. Date of Service: 08/02/24 Procedure(s): US OB growth Accession Number(s): [id number] cc: Eusebio Lam D.O.; Physician,Non-Staff Sindy The [place] [address] Patient Name: HAWK KING MRN: [facility]:[id number] date: 2000 Sex: F Assigned Patient Location: [facility] Current Patient Location: Accession/Order Number: [id number] Exam Date: 08/03/2024 08:23 Report Date: 08/03/2024 08:32 At the request of: EUSEBIO LAM DO Procedure: US OB BPP w non-stress CLINICAL INFORMATION: H/O LABOR O09.899 ULTRASOUND OB GROWTH COMPARISON: None There is a single live intrauterine gestation in cephalic presentation. There is cardiac and somatic activity. The heart rate ejgtxzee408 beats per minute. The placenta is posterior. [...] Hunt M.D. 08/03/2024 8:32 AM Dictation Location: [facility] Electronically authenticated by: [id number] Y Date: 08/03/2024 08:32 Dictated By: Jing Hunt M.D. Signed By: 08/03/2435 DD/ 1 TD/TT: Acrobatic Dancer: [facility] Radiology, Radiologist, - 08/03/2024 [place] [address] Ultrasound Report Signed Patient: HAWK KING MR#: [id number] : 2000 Acct:[id number] Age/Sex: 23 / F ADM Date: 08/02/24 Loc: US Attending Dr: Eusebio Lam D.O. Ordering Physician: Eusebio Lam D.O. Date of Service: 08/02/24 Procedure(s): US OB growth Accession Number(s): [id number] cc: Eusebio Lam D.O.; Physician,Non-Staff Sindy The [place] [address] Patient Name: HAWK KING MRN: [facility]:[id number] date: 2000 Sex: F Assigned Patient Location: [facility] Current Patient Location: Accession/Order Number: [id number] Exam Date: 08/03/2024 08:23 Report Date: 08/03/2024 08:32 At the request of: EUSEBIO LAM DO Procedure: US OB BPP w non-stress CLINICAL INFORMATION: H/O LABOR O09.899 ULTRASOUND OB GROWTH COMPARISON: None There is a single live intrauterine gestation in cephalic presentation. There is cardiac and somatic activity. The heart rate aqrmbrru739 beats per minute. The placenta is posterior. [...] Hunt M.D. 08/03/2024 8:32 AM Dictation Location: [place] [address] Electronically authenticated by: [id number] Y Date: 08/03/2024 08:32 Dictated By: Jing Hunt M.D. Signed By: 08/03/24 0835 DD/ 0832 TD/TT: Acrobatic Dancer: [facility] MLR HEMOGLOBIN A1Con 025 Glucose [Mass/Vol] 91 mg/dL [facility] HbA1c (Bld) [Mass fraction] 4.8 % 4.5 - 6.2 % [facility] Comment on above: ADA RECOMMENDED LIMI T 4.0 - 6.0 ADA THERAPEUTIC TARGET < 7.0 ACTION SUGGESTED > 7.0 [facility] Urinalysis macro (dipstick) panel (U)on 07-26-2024 Bilirubin, UA Negative Negative - 4(70) +++ mg/dL [facility] Blood, UA Negative Negative - 50 Jian/mcL [facility] Clarity, UA Clear [facility] Color, UA Yellow [facility] Glucose, UA Negative Negative - 2000(110) ++++ mg/dL [facility] Interpretation and review of laboratory results Abnormal [facility] Ketones, UA Negative Negative - 160(16) ++++ mg/dL [facility] Leukocytes, UA Positive Negative - 500+++ Heriberto/mcL [facility] Comment on above: small Nitrite, UA Negative Negative - Positive [facility] pH, UA 1 5 - 9 [facility] Protein, UA Positive Negative - 2000(20) ++++ mg/dL [facility] Comment on above: 30mg/dL Spec Grav, UA 1.02 1 - 1.03 [facility] Urobilinogen, UA 2.0 0.2 - 12 mg/dL [facility] US OB FOLLOW UP TRANSABDOMIN AL APPROACHon [...] II, MD, PHD at 30-Jun-2024 12:16:48 PM [facility] Normal Not Available Comment on above: Order Comment: US OB SCAN FOR GROWTH Estimated Date of Delivery: 09/21/24 Gestational Age as of 06/13/2024: 25w5d Urinalysis macro (dipstick) panel (U)on 06-28-2024 Bilirubin, UA Negative Negative - 4(70) +++ mg/dL [facility] Blood, UA Negative Negative - 50 Jian/mcL [facility] Clarity, UA Clear [facility] Color, UA Yellow [facility] Glucose, UA Negative Negative - 1999(110) ++++ mg/dL [facility] Interpretation and review of laboratory results Normal [facility] Ketones, UA Negative Negative - 160(16) ++++ mg/dL [facility] Leukocytes, UA Negative Negative - 500+++ Heriberto/mcL [facility] Nitrite, UA Negative Negative - Positive [facility] pH, UA 7 5 - 9 [facility] Protein, UA Negative Negative - 1999(20) ++++ mg/dL [facility] Spec Grav, UA 1.02 1 - 1.03 [facility] Urobilinogen, UA 0.2 0.2 - 12 mg/dL [facility] IGP,APTIMA HPV,AGE GDLNon AGE GDLN ACOG TESTING Note . [facility] Comment on above: TESTS RESULT FLAG UN ITS REF RANGE LAB Clinician Provided Cytology Information Source.............Cervix Other.............. No. of containers..01 ThinPrep Vial Age Algo ACOG Memo... FLAG LEGEND: L-Low Normal,H-High Normal,LL-Alert Low,HH-Alert High <-Panic Low,>-Panic High,A-Abnormal,AA-Critical Abnormal Performed at: 01 =G [facility] [place] [address] [facility], [place] [address] Katie Lopez MD, IGP, RFX APTIMA HPV ASCU Note . [facility] Comment on above: TESTS RESULT FLAG UN ITS REF RANGE LAB DIAGNOSIS: 02 NEGATIVE FOR INTRAEPITHELIAL LESION OR MALIGNANCY. Specimen adequacy: 02 Satisfactory for evaluation. Endocervical and/or squamous metaplastic cells (endocervical component) are present. Performed by: 02 Radha Cruz, Fraud Manager ([facility]) . 02 Note: Note 03 The Pap [...] High,A-Abnormal,AA-Critical Abnormal Performed at: 02 KWCYT [facility] [address] [place] [id number] Fer Mehta MD, [address] [address] Katie Lopez MD, Performed at: = - [address] [id number] [employer] Machine Tender: Katie Lopez MD, Phone: [phone] Performed at: [facility] [address] [place], [place] [id number] [employer] Tender: Fer Mehta MD, Phone: [phone] [facility] RECURRENT VAGINITIS (HTRX)on 05-17-2024 ATOPOBIUM VAGINAE 19.357 [...] Not detected [facility] CHLAMYDIA TRACHOMATIS 0 [facility] CHLAMYDIA TRACHOMATIS Not detected [facility] ERMB, C; MEFA 19.876 Abnormal [facility] ERMB, C; MEFA Detected Abnormal [facility] GARDNERELLA VAGINALIS 24.591 Abnormal [facility] GARDNERELLA VAGINALIS Detected Abnormal [facility] Interpretation and review of laboratory results Abnormal [facility] MEGASPHAERA (TYPES 1, 2) 0 [facility] MEGASPHAERA (TYPES 1, 2) Not detected [facility] MYCOPLASMA GENITALIUM 22.396 Abnormal [facility] MYCOPLASMA GENITALIUM Detected Abnormal [facility] NEISSERIA GONORRHOEAE 0 [facility] NEISSERIA GONORRHOEAE Not detected [facility] TET B, TET M 20.657 Abnormal [facility] TET B, TET M Detected Abnormal [facility] TRICHOMONAS VAGINALIS 0 [facility] TRICHOMONAS VAGINALIS Not detected [facility] Urinalysis macro (dipstick) panel (U)on 05-16-2024 Bilirubin, UA Negative Negative - 4(70) +++ mg/dL [facility] Blood, UA Negative Negative - 50 Jian/mcL [facility] Clarity, UA Clear [facility] Color, UA Yellow [facility] Glucose, UA Negative Negative - 2000(110) ++++ mg/dL [facility] Interpretation and review of laboratory results Abnormal [facility] Ketones, UA Negative Negative - 160(16) ++++ mg/dL [facility] Leukocytes, UA Trace Negative - 500+++ Heriberto/mcL [facility] Nitrite, UA Negative Negative - Positive [facility] pH, UA 7 5 - 9 [facility] Protein, UA Negative Negative - 2000(20) ++++ mg/dL [facility] Spec Grav, UA 1.02 1 - 1.03 [facility] Urobilinogen, UA 0.2 0.2 - 12 mg/dL [facility] US OB 14+ WEEKS ANATOMY SCAN on [...] II, MD, PHD at 09-May-2024 09:57:06 AM [facility] Normal Not Available Comment on above: Order Comment: US OB ANATOMY SINGLE W US OB CERVICAL LENGTH Estimated Date of Delivery: 09/21/24 Gestational Age as of 04/17/2024: 17w4d Urinalysis macro (dipstick) panel (U)Ordered By: Allegra Wallis on 04-17-2024 Bilirubin, UA Negative Negative - 4(70) +++ mg/dL [facility] Blood, UA Negative Negative - 50 Jian/mcL [facility] Clarity, UA Clear [facility] Color, UA Yellow [facility] Glucose, UA Negative Negative - 1999(110) ++++ mg/dL [facility] Interpretation and review of laboratory results Abnormal [facility] Ketones, UA Negative Negative - 160(16) ++++ mg/dL [facility] Leukocytes, UA Positive Negative - 500+++ Heriberto/mcL [facility] Comment on above: small Nitrite, UA Negative Negative - Positive [facility] pH, UA 7.5 5 - 9 [facility] Protein, UA Trace Negative - 1999(20) ++++ mg/dL [facility] Spec Grav, UA 1.02 1 - 1.03 [facility] Urobilinogen, UA 1.0 0.2 - 12 mg/dL [facility] BOX TESTon 02-29-2024 BOX TEST SENT OUT [facility] BOX1 [facility] BOX2 02/29/2024 [facility] BOX TESTon 02-18-2024 BOX TEST SENT OUT [facility] BOX1 [facility] BOX2 02/18/24 [facility] US PREG LESS THAN 14 WKS SIN GLEon 02-11-2024 US PREG LESS THAN 14 WKS SINGLE US PREG LESS THAN 14 WKS SINGLE Pelvic ultrasound History:Dates viability Comparison:None Findings: Single live IUP at 8 weeks 2 days. Swink-rump length 2.1 cm. Yolk sac visualized. Heart [...] Thomas MD on 02/11/2024 11:49 AM Normal [facility] US PREG LESS THAN 14 WKS WIT H TRANSVAGINALon 01-26-2024 US PREG LESS THAN 14 WKS WITH TRANSVAGINAL US PREG LESS THAN 14 WKS WITH TRANSVAGINAL US PREG LESS THAN 14 WKS WITH TRANSVAGINAL: 01/26/2024 9:30 AM Clinical: Check dates and viability. Real-time transabdominal and transvaginal sonography pelvis performed.. No comparison. There is a single intrauterine with cardiac activity 101 beats per minute. Swink-rump length of 2.6 mm corresponds to 5 [...] Roque MD on 01/26/2024 12:54 PM Normal [facility] ACUTE HEPATITIS PANELon 01-08 ANTI HCV W/PCR REFLX Non-Reactive Normal NRCT [facility] Comment on above: Result Comment: NEW TEST METHOD NOTE If recent infection suspected, recommend repeat testing (>2 months). Ymcnfs-rc-fzokub ratio is <1.00. Performed By: #### C BC, CMP, 2532-0, 3084-1, 71478-6, 04013-5, AHP, 95304-8, 52052-4, 17052-0 #### [facility] ([id number]) [address], [address] [place] [address] HEPATITIS A IGM Non-Reactive Normal NRCT [facility] Comment on above: Result Comment: NEW TEST METHOD Performed By: #### C BC, CMP, 2532-0, 3084-1, 81347-5, 16256-1, AHP, 34602-5, 12061-0, 34970-2 #### [facility] ([id number]) [address], [address] [place] [address] HEPATITIS B CORE IGM Non-Reactive Normal NRCT [facility] Comment on above: Result Comment: NEW TEST METHOD Performed By: #### C BC, CMP, 2532-0, 3084-1, 03730-3, 83144-6, AHP, 32311-9, 69819-0, 30288-4 #### [facility] ([id number]) [address], [address] [place] [address] HEPATITIS B SURF AG Non-Reactive Normal NRCT [facility] Comment on above: Result Comment: NEW TEST METHOD Performed By: #### C BC, CMP, 2532-0, 3084-1, 07435-5, 97098-7, AHP, 50073-6, 32089-5, 75525-6 #### [facility] ([id number]) [address], [address] [place] [address] COMPLETE BLOOD COUNTon 01-18 Erythrocyte distribution width (RBC) [Ratio] 13.2 % Normal 11.5-15.0 [facility] Comment on above: Performed By: #### C BC, CMP, 2532-0, 3084-1, 29610-7, 46827-6, AHP, 52148-1, 66224-6, 23885-5 #### [facility] ([id number]) [address], [address] [place] [address] Hematocrit (Bld) [Volume fraction] 41.8 % Normal 35-47 [facility] Comment on above: Performed By: #### C BC, CMP, 2532-0, 3084-1, 61261-2, 78296-2, AHP, 71494-3, 63775-1, 12431-2 #### [facility] ([id number]) [address], [address] [place] [address] Hemoglobin (Bld) [Mass/Vol] 14.3 g/dL Normal 11.7-15.5 [facility] Comment on above: Performed By: #### C BC, CMP, 2532-0, 3084-1, 23399-7, 86208-9, AHP, 57231-3, 43559-7, 40450-3 #### [facility] ([id number]) [address], [address] [place] [address] MCH (RBC) [Entitic mass] 31.7 pg Normal 27-34 [facility] Comment on above: Performed By: #### C BC, CMP, 2532-0, 3084-1, 68014-2, 71903-6, AHP, 80846-0, 76199-8, 29778-2 #### [facility] ([id number]) [address], [address] [place] [address] MCHC (RBC) [Mass/Vol] 34.3 g/dL Normal 32-36 [facility] Comment on above: Performed By: #### C BC, CMP, 2532-0, 3084-1, 49589-3, 86821-1, AHP, 37853-8, 66790-9, 70008-8 #### [facility] ([id number]) [address], [address] [place] [address] MCV (RBC) [Entitic vol] 92 fL Normal 80-100 [facility] Comment on above: Performed By: #### C BC, CMP, 2532-0, 3084-1, 17944-3, 34123-6, AHP, 58722-0, 93184-0, 00100-2 #### [facility] ([id number]) [address], [address] [place] [address] Platelet mean volume (Bld) [Entitic vol] 8.8 fL Normal 7-12 [facility] Comment on above: Performed By: #### C BC, CMP, 2532-0, 3084-1, 49372-6, 49697-9, AHP, 42907-9, 46295-0, 86500-3 #### [facility] ([id number]) [address], [address] [place] [address] Platelets (Bld) [#/Vol] 238 10*3/uL Normal 150-450 [facility] Comment on above: Performed By: #### C BC, CMP, 2532-0, 3084-1, 59241-3, 68972-4, AHP, 96223-5, 35489-0, 48329-1 #### [facility] ([id number]) [address], [address] [place] [address] RBC COUNT 4.52 X10E12/L Normal 3.80-5.20 [facility] Comment on above: Performed By: #### C BC, CMP, 2532-0, 3084-1, 53626-8, 29813-5, AHP, 84984-5, 88517-3, 88019-7 #### [facility] ([id number]) [address], [address] [place] [address] WBC (Bld) [#/Vol] 5.0 10*3/uL Normal 4.0-11.0 [facility] Comment on above: Performed By: #### C BC, CMP, 2532-0, 3084-1, 72523-8, 75904-8, AHP, 28620-0, 96514-2, 42264-8 #### [facility] ([id number]) [address], [address] [place] [address] COMPREHENSIVE METABOLIC PANE Eric 01-19-2024 Albumin [Mass/Vol] 4.4 g/dL Normal 3.2-5.3 [facility] Comment on above: Performed By: #### C BC, CMP, 2532-0, 3084-1, 28149-2, 74864-4, AHP, 76847-0, 79823-5, 86276-4 #### [facility] ([id number]) [address], [address] [place] [address] ALP [Catalytic activity/Vol] 42 U/L Normal 39-130 [facility] Comment on above: Performed By: #### C BC, CMP, 2532-0, 3084-1, 11935-3, 51879-0, AHP, 72565-5, 34881-9, 99509-7 #### [facility] ([id number]) [address], [address] [place] [address] ALT [Catalytic activity/Vol] 17 U/L Normal 0-31 [facility] Comment on above: Performed By: #### C BC, CMP, 2532-0, 3084-1, 19887-3, 49434-3, AHP, 12289-1, 71252-9, 23985-4 #### [facility] ([id number]) [address], [address] [place] [address] Anion gap [Moles/Vol] 9 mmol/L Normal 5-15 [facility] Comment on above: Performed By: #### C BC, CMP, 2532-0, 3084-1, 44434-0, 70951-4, AHP, 44651-3, 52952-4, 81126-9 #### [facility] ([id number]) [address], [address] [place] [address] AST [Catalytic activity/Vol] 17 U/L Normal 0-41 [facility] Comment on above: Performed By: #### C BC, CMP, 2532-0, 3084-1, 63851-9, 20758-5, AHP, 30574-9, 38653-3, 29254-3 #### [facility] ([id number]) [address], [address] [place] [address] Bilirubin [Mass/Vol] 0.6 mg/dL Normal 0.3-1.2 [facility] Comment on above: Performed By: #### C BC, CMP, 2532-0, 3084-1, 04734-9, 49623-8, AHP, 68420-1, 34922-2, 00121-9 #### [facility] ([id number]) [address], [address] [place] [address] Calcium [Mass/Vol] 8.9 mg/dL Normal 8.5-10.5 [facility] Comment on above: Performed By: #### C BC, CMP, 2532-0, 3084-1, 32547-2, 38570-2, AHP, 61236-2, 32285-3, 54491-8 #### [facility] ([id number]) [address], [address] [place] [address] Chloride [Moles/Vol] 104 mmol/L Normal 98-109 [facility] Comment on above: Performed By: #### C BC, CMP, 2532-0, 3084-1, 77089-2, 96287-1, AHP, 21837-7, 77984-2, 98103-3 #### [facility] ([id number]) [address], [address] [place] [address] CO2 [Moles/Vol] 28 mmol/L Normal 22-32 [facility] Comment on above: Performed By: #### C BC, CMP, 2532-0, 3084-1, 35532-0, 77798-9, AHP, 40100-7, 31072-5, 59862-2 #### [facility] ([id number]) [address], [address] [place] [address] Creatinine [Mass/Vol] 0.68 mg/dL Normal 0.40-1.00 [facility] Comment on above: Result Comment: METH OD TRACEABLE TO IDMS STANDARD Performed By: #### C BC, CMP, 2532-0, 3084-1, 05292-3, 66347-3, AHP, 18166-7, 39865-0, 16729-5 #### [facility] ([id number]) [address], [address] [place] [address] eGFR (CKD-EPI) NON-RACE DEPENDENT >90 Normal >59 [facility] Comment on above: Result Comment: Reported eGFR is based on the CKD-EPI 2020 equation that does not use a race coefficient. Performed By: #### C BC, CMP, 2532-0, 3084-1, 26624-4, 85728-3, AHP, 49155-8, 07937-3, 89348-9 #### [facility] ([id number]) [address], [address] [place] [address] Glucose [Mass/Vol] 84 mg/dL Normal 65-99 [facility] Comment on above: Performed By: #### C BC, CMP, 2532-0, 3084-1, 62058-3, 70826-9, AHP, 94079-6, 43978-8, 46906-8 #### [facility] ([id number]) [address], [address] [place] [address] Potassium [Moles/Vol] 3.4 mmol/L Low 3.5-5.0 [facility] Comment on above: Performed By: #### C BC, CMP, 2532-0, 3084-1, 27116-1, 12479-8, AHP, 06041-1, 15240-6, 54883-9 #### [facility] ([id number]) [address], [address] [place] [address] Protein [Mass/Vol] 7.0 g/dL Normal 6.0-8.0 [facility] Comment on above: Performed By: #### C BC, CMP, 2532-0, 3084-1, 41472-3, 73108-4, AHP, 01769-7, 52901-1, 73297-5 #### [facility] ([id number]) [address], [address] [place] [address] Sodium [Moles/Vol] 141 mmol/L Normal 134-146 [facility] Comment on above: Performed By: #### C BC, CMP, 2532-0, 3084-1, 90380-0, 86048-7, AHP, 39706-3, 12824-5, 22053-6 #### [facility] ([id number]) [address], [address] [place] [address] Urea nitrogen [Mass/Vol] 9 mg/dL Normal 5-23 [facility] Comment on above: Performed By: #### C BC, CMP, 2532-0, 3084-1, 14107-7, 79552-3, AHP, 25946-7, 24571-6, 30955-6 #### [facility] ([id number]) [address], [address] [place] [address] Creatinine (U) [Mass/Vol]on 01-19-2024 URINE CREATININE,RDM 153.52 mg/dL Normal [facility] Comment on above: Performed By: #### 6 556-5 #### [facility] ([id number]) [address] [place] [address], [place] [address] DRUG SCREEN, URINEon 024 AMPHETAMINE/METHAMP Negative Normal NEG [facility] Comment on above: Result Comment: AMPH /METH screening cut off = 1000 ng/mL Performed By: #### 6 556-5 #### [facility] ([id number]) [address] [place] [address] BARBITURATES Negative Normal NEG [facility] Comment on above: Result Comment: Basilia iturates screening cut off value = 200 ng/mL Performed By: #### 6 556-5 #### [facility] ([id number]) [address] [place] [address] BENZODIAZEPINES Negative Normal NEG [facility] Comment on above: Result Comment: Miguelangel odiazepines screening cut off value = 200 ng/mL Performed By: #### 6 556-5 #### [facility] ([id number]) [address] [place] [address] CANNABINOIDS Positive Abnormal NEG [facility] Comment on above: Result Comment: Conf irmation available upon request. Cannabinoids/THC screening cut off value = 50 ng/mL Performed By: #### 6 556-5 #### [facility] ([id number]) [address] [place] [address] COCAINE METABOLITE Negative Normal NEG [facility] Comment on above: Result Comment: Coca ine screening cut off value = 300 ng/mL Performed By: #### 6 556-5 #### [facility] ([id number]) [address] [place] [address] ECSTASY Negative Normal NEG [facility] Comment on above: Result Comment: Ecst asy screening cut off value = 500 ng/mL This report is intended for use in clinical monitoring or management of patients. Performed By: #### 6 556-5 #### [facility] ([id number]) [address] [place] [address] METHADONE Negative Normal NEG [facility] Comment on above: Result Comment: Meth adone screening cut off value = 300 ng/mL. Performed By: #### 6 556-5 #### [facility] ([id number]) [address] [place] [address] OPIATES Negative Normal NEG [facility] Comment on above: Result Comment: Opia memo screening cut off value = 300 ng/mL NOTE: This test is used for the detection of codeine, hydrocodone (>1000 ng/mL), morphine and hydromorphone (>900 ng/mL) in urine. Performed By: #### 6 556-5 #### [facility] ([id number]) [address] [place] [address] OXYCODONE Negative Normal NEG [facility] Comment on above: Result Comment: Oxyc odone screening cut off value = 300 ng/mL NOTE: This test is used for the detection of oxycodone and oxymorphone in urine. Performed By: #### 6 556-5 #### [facility] ([id number]) [address] [place] [address] PHENCYCLIDINE Negative Normal NEG [facility] Comment on above: Result Comment: Phen cyclidine screening cut off value = 25 ng/mL Performed By: #### 6 556-5 #### [facility] ([id number]) [address] [place] [address] HCG.beta subunit IA 3rd IS Q non 01-19-2024 HCG.beta subunit Qn 6499 m[IU]/mL Normal [facility] Comment on above: Result Comment: NEW [...] By: #### C BC, CMP, 2532-0, 3084-1, 10743-6, 59170-6, AHP, 72044-8, 93307-1, 50936-2 #### [facility] ([id number]) [address], [address] [place] [address] HIV 1+2 Ab+HIV1 p24 Ag IA Ql on 01-19-2024 HIV 1 and 2 Ab/Ag Screen Non-Reactive Normal NRCT [facility] Comment on above: Result Comment: [...] By: #### C BC, CMP, 2532-0, 3084-1, 73549-7, 07716-4, AHP, 11616-1, 50684-4, 93991-6 #### [facility] ([id number]) [address], [address] [place] [address] LDH [Catalytic activity/Vol] on 01-19-2024 LDH 163 U/L Normal 100-235 [facility] Comment on above: Performed By: #### C BC, CMP, 2532-0, 3084-1, 78869-4, 55886-9, AHP, 99058-9, 06550-5, 10329-7 #### [facility] ([id number]) [address] [facility], [address] [place] [address] PROTEIN CREAT RATIOon 2023 RANDOM URINE PROTEIN 100 mg/L Normal <120 [facility] Comment on above: Performed By: #### 6 556-5 #### [facility] ([id number]) [address] [place] [address] U/PRO/CERTIFIED HAND THERAPIST RATIO CALC 0.06 Normal <0.2 [facility] Comment on above: Result Comment: Neph rotic Syndrome is associated with ratios >3.5 Performed By: #### 6 556-5 #### [facility] ([id number]) [address] [place] [address] URINE CREATININE,RDM 155.31 mg/dL Normal [facility] Comment on above: Performed By: #### 6 556-5 #### [facility] ([id number]) [address] [place] [address] Rubella virus Ab Ql (S)on RUBELLA IMMUNE IgG 2.5 AI Normal [facility] Comment on above: Result Comment: Interpretation-------- <0.8 NEGATIVE-considered Not Immune 0.8-0.9 EQUIVOCAL-consider retesting with new specimen >0.9 POSITIVE-considered Immune Performed By: #### 6 556-5 #### [facility] ([id number]) [address] [place] [address] T. pallidum IgG+IgM IA Ql (S )on 01-19-2024 Syphilis Total 0.8 AI Normal 0.0-0.8 [facility] Comment on above: Result Comment: NON REACTIVE No serologic evidence of infection to Treponema pallidum (syphilis). Repeat testing may be considered in patients with suspected acute or primary syphilis in 2 to 4 weeks. Performed By: #### 6 556-5 #### [facility] ([id number]) [address] [place] [address] URIC ACIDon 01-19-2024 Urate [Mass/Vol] 2.1 mg/dL Low 2.6-7.2 [facility] Comment on above: Performed By: #### C BC, CMP, 2532-0, 3084-1, 23855-0, 64476-2, AHP, 68583-6, 56132-4, 79152-0 #### [facility] ([id number]) [address], [address] [place] [address] URINALYSISon 01-19-2024 Bilirubin Ql (U) Negative Normal NEG [facility] Comment on above: Performed By: #### U A #### [facility] ([id number]) [address] [place] [address], [address] [place] [address] BLOOD/HGB Negative Normal NEG [facility] Comment on above: Performed By: #### U A #### [facility] ([id number]) [address] [place] [address], [address] [place] [address] Color (U) YELLOW Normal YELLOW [facility] Comment on above: Performed By: #### U A #### [facility] ([id number]) [address] [place] [address], [address] [place] [address] Glucose Ql (U) Negative Normal NEG [facility] Comment on above: Performed By: #### U A #### [facility] ([id number]) [facility], [address] [place] [address] Ketones Ql (U) Negative Normal NEG [facility] Comment on above: Performed By: #### U A #### [facility] ([id number]) [address] [place] [address], [address] [place] [address] Leukocyte esterase Test strip Ql (U) Negative Normal NEG [facility] Comment on above: Performed By: #### U A #### [facility] ([id number]) [address] [place] [address], [address] [place] [address] MUCOUS PRESENT Abnormal NONE [facility] Comment on above: Performed By: #### U A #### [facility] ([id number]) [address], [address] [place] [address] Nitrite Ql (U) Negative Normal NEG [facility] [facility] Comment on above: Performed By: #### U A #### [facility] ([id number]) [address], [address] [place] [address] pH (U) 6.5 [pH] Normal 5.0-8.5 [facility] Comment on above: Performed By: #### U A #### [facility] ([id number]) [address], [address] [place] [address] Protein Ql (U) Trace Abnormal NEG [facility] Comment on above: Performed By: #### U A #### [facility] ([id number]) [address] [place] [address] R.B.CELLS 1 /hpf Normal 0-5 [facility] Comment on above: Performed By: #### U A #### [facility] ([id number]) [address] [place] [address] Specific gravity (U) [Rel density] 1.017 Normal 1.003-1.035 [facility] Comment on above: Performed By: #### U A #### [facility] ([id number]) [address], [address] [place] [address] SQUAMOUS EPITHELIUM 8 /hpf High 0-5 [facility] Comment on above: Performed By: #### U A #### [facility] ([id number]) [address] [place] [address] TURBIDITY HAZY Abnormal CLEAR [facility] Comment on above: Performed By: #### U A #### [facility] ([id number]) [address], [address] [place] [address] Urobilinogen (U) [Mass/Vol] mg/dL Normal <1.1 [facility] Comment on above: Performed By: #### U A #### [facility] ([id number]) [address], [address] [place] [address] W.B.CELLS 2 /hpf Normal 0-5 [facility] Comment on above: Performed By: #### U A #### [facility] ([id number]) [address], [address] [place] [address] URINE CULTUREon 01-19-2024 Bacteria identified Cx Nom (U) CULTURE RESULTS NO GROWTH AT <1000 CFU/mL Normal [facility] Comment on above: Performed By: #### 6 [id number] #### [facility] ([id number]) [address] [place] [address] VZV IgG IA Ql (S)on 01-19-20 24 VARICELLA IgG 0.2 AI Normal <0.9 [facility] Comment on above: Result Comment: Interpretation-------- <0.9 Negative 0.9 - 1.0 Equivocal >1.0 Positive Performed By: #### 6 556-5 #### [facility] ([id number]) [address] [place] [address] ABORhon 01-11-2024 ABO and Rh group Nom (Bld) Hx Check: Not Found Anti-A: 4+ Anti-B: 0 Anti-D: 4+ DCon: NT A1: 0 B: 4+ ABORh Interp: A POS Invalid Interpretation Code [facility] Comment on above: Performed By: #### 1 [id number], [id number], [id number] #### [facility] (DEFAULT) [address] [place] [address] ABORh Retypeon 01-11-2024 ABO and Rh group Nom (Bld) Ordered by Discern. Anti-A: 4+ Anti-B: 0 Anti-D: 4+ DCon: NT A1: 0 B: 4+ ABORh Retype: A POS Invalid Interpretation Code [facility] Comment on above: Performed By: #### 1 [id number], [id number], [id number] #### [facility] (DEFAULT) [address] [place] [address] ED Clinical Summaryon 2023 ED Clinical Summary [facility] - Emergency Department [address] [place] [id number] ED Clinical Summary PERSON INFORMATION Name: HAWK KING Age: 23 Years Sex: FEMALE : 2000 MRN: Acct#: Visit Reason: Test; PREGANT, WANT TEST DONE, SPOTTING BLOOD Arrival: 01/11/2024 10:11:43 Discharge: 01/11/2024 11:59:00 LOS: 000 01:48 Check In: 01/11/2024 10:11:43 Checkout:01/11/2024 11:59:00 Address: [address] [place] [id number] PCP: ANN-MARIE ASH MD PROVIDER INFORMATION Provider [...] Home PATIENT EDUCATION INFORMATION Instructions: Bacterial Vaginosis, Upxd-[id number] Follow-Up: With: Address: When: ANN-MARIE ASH MD [address] [place] [address] Within 3 to 5 days DIAGNOSIS: 1:Vaginal bleeding during ; 2:Bacterial vaginosis in ; 3:; Other specified bacterial agents as the cause of diseases classified elsewhere Patient Understands: Yes - Patient/family/caregi john verbalizes understanding of instructions given Comment: [facility] ED Note-Nursingon 01-11-2024 ED Note-Nursing Ambulates with [...] LMP 2023. Dr. Laguerre in for exam. [facility] ED Patient Summaryon 024 ED Patient Summary [facility] - Emergency Department [address] [place] [address] PATIENT DISCHARGE INSTRUCTIONS Patient Information Name: HAWK [...] of diseases classified elsewhere (B96.89) (Z34.90) Test ([id number]) Vaginal bleeding during (O46.90) The Pharmacy at [facility] is open Wednesday through Wednesday from [...] alcohol and/or drug addiction problems; contact the [facility] 31/08 Crisis Hotline -Text 4HYSF to [phone]. If you received any narcotics, sedation, or [...] Address: When: MIHIR DEL VALLE, ANN-MARIE Dc [address] [place] [address] [id number] Within 3 to 5 days Medication Information: The exam and treatment you received today in the [facility] Emergency Department were for an urgent problem and are not intended as complete care. It is important for you to follow up with a doctor, nurse practitioner, or physician?s sales office assistant for ongoing care. If your symptoms [...] so we can reach you if necessary. [facility] Emergency Department has provided you with a complete list of medications post discharge. Please inform your dog barber/provider of your visit and for further instruction on these medications. Any specific questions regarding your chronic medications and dosages should be discussed with your primary care physician(s) and/or pharmacist. New Medications [facility], [address], [place] [id number], [phone] metroNIDAZOLE (metroNIDAZOLE 500 mg oral tablet) 1 [...] the antibiotic as prescribed. Follow-up with your FRAUD MANAGER to review this emergency department visit. [...] infection can cau (more content not included)... [facility] Test Urine 1on U Preg Positive [facility] Comment on above: Performed By: #### 1 [id number], [id number], [id number] #### [facility] (DEFAULT) [address] [place] [address] U Preg Internal Control Pass [facility] Comment on above: Performed By: #### 1 [id number], [id number], [id number] #### [facility] (DEFAULT) [address] [place] [address] UA Zokyc0dz 01-11-2024 UA Bacteria 1+ [facility] Comment on above: Order Comment: Urina lysis Microscopic order added on by [employer] Expert Rules system. Performed By: #### 1 [id number], [id number], [id number] #### [facility] (DEFAULT) [address] [place] [address] UA Comment. Clue Cells Seen [facility] Comment on above: Order Comment: Urina lysis Microscopic order added on by [employer] Expert Rules system. Performed By: #### 1 [id number], [id number], [id number] #### [facility] (DEFAULT) [address] [place] [address] UA RBC 0-2 [facility] Comment on above: Order Comment: Urina lysis Microscopic order added on by [employer] Expert Rules system. Performed By: #### 1 [id number], [id number], [id number] #### [facility] (DEFAULT) [address] [place] [address] UA Squam Epi Few [facility] Comment on above: Order Comment: Urina lysis Microscopic order added on by [employer] Expert Rules system. Performed By: #### 1 [id number], [id number], [id number] #### [facility] (DEFAULT) [address] [place] [address] UA WBC 3-5 [facility] Comment on above: Order Comment: Urina lysis Microscopic order added on by [employer] Rules system. Performed By: #### 1 [id number], [id number], [id number] #### [facility] (DEFAULT) [address] [place] [address] UA w Culture if Ind Standard on 01-11-2024 Breakpoint UA [facility] Comment on above: Performed By: #### 1 [id number], [id number], [id number] #### [facility] (DEFAULT) [address] [place] [address] Color (U) Yellow [facility] Comment on above: Performed By: #### 1 [id number], [id number], [id number] #### [facility] (DEFAULT) [address] [place] [address] Culture? Indicated Invalid Interpretation Code [facility] Comment on above: Result Comment: Resu lt created by rule GL_MAGR_ADD_UA_CULT Performed By: #### 1 [id number], [id number], [id number] #### [facility] (DEFAULT) [address] [place] [address] Glucose (U) [Mass/Vol] Negative Normal [facility] Comment on above: Performed By: #### 1 [id number], [id number], [id number] #### [facility] (DEFAULT) [address] [place] [address] Ketones Ql (U) Negative Normal [facility] Comment on above: Performed By: #### 1 [id number], [id number], [id number] #### [facility] (DEFAULT) [address] [place] [address] Micro? Indicated Invalid Interpretation Code [facility] Comment on above: Result Comment: Resu lt created by rule GL_MAGR_ADD_UA_MICRO Result created by rule GL_MAGR_ADD_UA_MICRO Performed By: #### 1 [id number], [id number], [id number] #### [facility] (DEFAULT) [address] [place] [address] UA Bilirubin Negative Normal [facility] Comment on above: Performed By: #### 1 [id number], [id number], [id number] #### [facility] (DEFAULT) [address] [place] [address] UA Blood Negative Normal NEGATIVE [facility] Comment on above: Performed By: #### 1 [id number], [id number], [id number] #### [facility] (DEFAULT) [address] [place] [address] UA Clarity CLEAR Normal CLEAR [facility] Comment on above: Performed By: #### 1 [id number], [id number], [id number] #### [facility] (DEFAULT) [address] [place] [address] UA Leuk Est SMALL Abnormal NEGATIVE [facility] Comment on above: Performed By: #### 1 [id number], [id number], [id number] #### [facility] (DEFAULT) [address] [place] [address] UA Nitrite Negative Normal NEGATIVE [facility] Comment on above: Performed By: #### 1 [id number], [id number], [id number] #### [facility] (DEFAULT) [address] [place] [address] UA pH 6.5 Normal 5-8 [facility] Comment on above: Performed By: #### 1 [id number], [id number], [id number] #### [facility] (DEFAULT) [address] [place] [address] UA Protein Negative Normal NEGATIVE [facility] Comment on above: Performed By: #### 1 [id number], [id number], [id number] #### [facility] (DEFAULT) [address] [place] [address] UA Spec Grav 1.025 Normal 1.001-1.035 [facility] Comment on above: Performed By: #### 1 [id number], [id number], [id number] #### [facility] (DEFAULT) [address] [place] [address] UA Urobilinogen 1.0 mg/dL Normal 0.2-1.0 [facility] Comment on above: Performed By: #### 1 [id number], [id number], [id number] #### [facility] (DEFAULT) [address] [place] [address] Urine Source Clean Catch Normal [facility] Comment on above: Performed By: #### 1 [id number], [id number], [id number] #### [facility] (DEFAULT) [address] [place] [address] hCG Quantitativeon hCG Quantitative 149.6 mIU/mL High 0.0-0.6 [facility] Comment on above: Result Comment: Post -Menopausal Reference Range is: 0.1-11.6 mIU/mL Performed By: #### 1 [id number], [id number], [id number] #### [facility] (DEFAULT) [address] [place] [address] ALL CBC WITH AUTO DIFFon BASOPHILS ABSOLUTE AUTO 0.0 [facility] Basophils/100 WBC (Bld) 0.5 % 0.2 - 2.0 % [facility] Eosinophils/100 WBC (Bld) 3.9 % 0.9 - 7.0 % [facility] Erythrocyte distribution width (RBC) [Ratio] 12.5 % 11.0 - 15.0 % [facility] Hematocrit (Bld) [Volume fraction] 42.3 % 36.0 - 48.0 % [facility] Hemoglobin (Bld) [Mass/Vol] 14.4 g/dL 12.0 - 16.0 g/dL [facility] IMMATURE GRANULOCYTES ABS AUTO 0.01 [facility] Immature granulocytes/100 WBC (Bld) 0.2 % 0.0 - 0.5 % [facility] LYMPHOCYTES ABSOLUTE AUTO 2.3 [facility] Lymphocytes/100 WBC (Bld) 35.7 % 20.5 - 60.0 % [facility] MCH (RBC) [Entitic mass] 31.3 pg 26.7 - 34.0 pg [facility] MCHC (RBC) [Mass/Vol] 34.0 g/dL 29.9 - 35.2 g/dL [facility] MCV (RBC) [Entitic vol] 92.0 fL 81.0 - 99.0 fL [facility] MONOCYTES ABSOLUTE AUTO 0.5 [facility] Monocytes/100 WBC (Bld) 7.2 % 1.7 - 12.0 % [facility] NEUTROPHILS ABSOLUTE AUTO 3.4 [facility] Neutrophils/100 WBC (Bld) 52.5 % 43.0 - 75.0 % [facility] Platelet mean volume (Bld) [Entitic vol] 10.1 fL 9.5 - 13.5 fL [facility] TBH EO # 0.3 [facility] TBH PLT 281 [facility] RBC 4.60 [facility] WBC 6.5 [facility] Outside Recordson 03-23-2023 Outside Records [id number]# 1.00OTGTIFF [facility] RAPID STREP SCR NURSINGon S. pyogenes Ag EIA Ql (Throat) Negative Normal NEG [facility] Comment on above: Performed By: #### 6 [id number] #### [facility] ([id number]) [address] [facility] [place] [address] SARS/FLU A+B/RSV by NAAT/Mol maria estheron 03-22-2023 SARS/FLU A+B/RSV by NAAT/Molecular FLU A [...] operators who are performing tests using either [employer] or [employer] systems and is limited to laboratories that [...] repeat. Fact Sheet for Healthcare Providers: https://www.fda.gov/m edia/794724/download Fact Sheet for Patients: https://www.fda.gov/m edia/948273/download Normal [facility] Comment on above: Performed By: #### C OVFLR #### [facility] ([id number]) [address] [place] [address], [place] [address] [place] PREG TVon 07-03-2022 US PREG TV [...] CHEMA LEE Date: 2022-07-03 17:20 Normal [facility] PREG QUANT HCGon 06-04-2022 HCG QUANT 1906 mIU/mL Normal [facility] Comment on above: Performed By: #### C BC #### [facility] [address] [place] [address] Dr. Qi Benedict HCG RANGE SEE BELOW Normal [facility] Comment on above: Result Comment: 5-50 0.2-1 WEEK 50-500 1-2 WEEKS 100-5,000 2-3 WEEKS 500-10,000 3-4 WEEKS 1,000-50,000 4-5 WEEKS 10,000-100,000 5-6 WEEKS 15,000-200,000 6-8 WEEKS 10,000-100,000 2-3 MONTHS Performed By: #### C BC #### [facility] [address] [place] [address] Dr. Qi Benedict PREG QUANT HCGon 05-29-2022 HCG QUANT 118 mIU/mL Normal [facility] Comment on above: Performed By: #### D RUGRPD #### [facility] [address] [place] [address] Dr. Qi Benedict HCG RANGE SEE BELOW Normal [facility] Comment on above: Result Comment: 5-50 0.2-1 WEEK 50-500 1-2 WEEKS 100-5,000 2-3 WEEKS 500-10,000 3-4 WEEKS 1,000-50,000 4-5 WEEKS 10,000-100,000 5-6 WEEKS 15,000-200,000 6-8 WEEKS 10,000-100,000 2-3 MONTHS Performed By: #### D RUGRPD #### [facility] [address] [place] [address] Dr. Qi Benedict CANNABINOID (THC) CONFIRMATI ON, URINEon 02-10-2022 Cannabinoid Positive Abnormal [facility] Comment on above: Performed By: #### D RUGRPD #### [facility] [address] [place] [address] Dr. Qi Benedict Carboxy THC GC/MS Conf >750 Normal Cutoff=10 Th [facility] Comment on above: Performed By: #### D RUGRPD #### [facility] [address] [place] [address] Dr. Qi Benedict CBC AUTO DIFFon 01-30-2022 BASO # 0.0 103/ul Normal 0.0-0.1 [facility] Comment on above: Performed By: #### D RUGRPD #### [facility] [address] [place] [address] Dr. Qi Benedict Basophils/100 WBC (Bld) 0.3 % Normal 0.2-2.0 [facility] Comment on above: Performed By: #### D RUGRPD #### [facility] [address] [place] [address] Dr. Qi Benedict EO # 0.2 103/ul Normal 0.0-0.7 [facility] Comment on above: Performed By: #### D RUGRPD #### [facility] [address] [place] [address] Dr. Qi Benedict Eosinophils/100 WBC (Bld) 1.4 % Normal 0.9-7.0 [facility] Comment on above: Performed By: #### D RUGRPD #### [facility] [address] [place] [address] Dr. Qi Benedict Erythrocyte distribution width (RBC) [Ratio] 14.0 % Normal 11.0-15.0 [facility] Comment on above: Performed By: #### D RUGRPD #### [facility] [address] [place] [address] Dr. Qi Benedict Hematocrit (Bld) [Volume fraction] 32.1 % Critically low 36.0-48.0 [facility] Comment on above: Performed By: #### D RUGRPD #### [facility] [address] [place] [address] Dr. Qi Benedict Hemoglobin (Bld) [Mass/Vol] 10.6 g/dL Critically low 12.0-16.0 [facility] Comment on above: Performed By: #### D RUGRPD #### [facility] [address] [place] [address] Dr. Qi Benedict IG # 0.04 10e3/ul Critically high 0.00-0.03 [facility] Comment on above: Performed By: #### D RUGRPD #### [facility] [address] [place] [address] Dr. Qi Benedict IG % 0.3 % Normal 0.0-0.5 [facility] Comment on above: Performed By: #### D RUGRPD #### [facility] [address] [place] [address] Dr. Qi Benedict LYMPH # 2.4 103/ul Normal 1.2-3.8 [facility] Comment on above: Performed By: #### D RUGRPD #### [facility] [address] [place] [address] Dr. Qi Benedict Lymphocytes/100 WBC (Bld) 19.9 % Critically low 20.5-60.0 [facility] Comment on above: Performed By: #### D RUGRPD #### [facility] [address] [place] [address] Dr. Qi Benedict MANUAL DIFF REQ NO Normal [facility] Comment on above: Performed By: #### D RUGRPD #### [facility] [address] [place] [address] Dr. Qi Benedict MCH (RBC) [Entitic mass] 30.1 pg Normal 26.7-34.0 [facility] Comment on above: Performed By: #### D RUGRPD #### [facility] [address] [place] [address] Dr. Qi Benedict MCHC (RBC) [Mass/Vol] 33.0 g/dL Normal 29.9-35.2 [facility] Comment on above: Performed By: #### D RUGRPD #### [facility] [address] [place] [address] Dr. Qi Benedict MCV (RBC) [Entitic vol] 91.2 fL Normal 81.0-99.0 [facility] Comment on above: Performed By: #### D RUGRPD #### [facility] [address] [place] [address] Dr. Qi Benedict MONO # 1.0 103/ul Critically high 0.3-0.8 [facility] Comment on above: Performed By: #### D RUGRPD #### [facility] [address] [place] [address] Dr. Qi Benedict Monocytes/100 WBC (Bld) 8.6 % Normal 1.7-12.0 [facility] Comment on above: Performed By: #### D RUGRPD #### [facility] [address] [place] [address] Dr. Qi Benedict NEUT # 8.3 103/ul Critically high 1.4-6.5 [facility] Comment on above: Performed By: #### D RUGRPD #### [facility] [address] [place] [address] Dr. Qi Benedict Neutrophils/100 WBC (Bld) 69.5 % Normal 43.0-75.0 [facility] Comment on above: Performed By: #### D RUGRPD #### [facility] [address] [place] [address] Dr. Qi Benedict Platelet mean volume (Bld) [Entitic vol] 10.3 fL Normal 9.5-13.5 [facility] Comment on above: Performed By: #### D RUGRPD #### [facility] [address] [address] [address] Qi Benedict PLT 229 103/ul Normal 150-450 [facility] Comment on above: Performed By: #### D RUGRPD #### [facility] [address] [place] [address] Dr. Qi Benedict RBC 3.52 106/ul Critically low 4.20-5.40 [facility] Comment on above: Performed By: #### D RUGRPD #### [facility] [address] [place] [address] Dr. Qi Benedict WBC 12.0 103/ul Critically high 4.0-11.0 [facility] Comment on above: Performed By: #### D RUGRPD #### [facility] [address] [place] [address] Dr. Qi Benedict CBC AUTO DIFFon 01-29-2022 BASO # 0.0 103/ul Normal 0.0-0.1 [facility] Comment on above: Performed By: #### D RUGRPD #### [facility] [address] [place] [address] Dr. Qi Benedict Basophils/100 WBC (Bld) 0.2 % Normal 0.2-2.0 [facility] Comment on above: Performed By: #### D RUGRPD #### [facility] [address] [place] [address] Dr. Qi Benedict EO # 0.1 103/ul Normal 0.0-0.7 [facility] Comment on above: Performed By: #### D RUGRPD #### [facility] [address] [place] [address] Dr. Qi Benedict Eosinophils/100 WBC (Bld) 1.4 % Normal 0.9-7.0 [facility] Comment on above: Performed By: #### D RUGRPD #### [facility] [address] [place] [place] [address] Dr. Qi Benedict Erythrocyte distribution width (RBC) [Ratio] 13.5 % Normal 11.0-15.0 [facility] Comment on above: Performed By: #### D RUGRPD #### [facility] [address] [place] [address] Dr. Qi Benedict Hematocrit (Bld) [Volume fraction] 35.9 % Critically low 36.0-48.0 [facility] Comment on above: Performed By: #### D RUGRPD #### [facility] [address] [place] [address] Dr. Qi Benedict Hemoglobin (Bld) [Mass/Vol] 11.9 g/dL Critically low 12.0-16.0 [facility] Comment on above: Performed By: #### D RUGRPD #### [facility] [address] [place] [address] Dr. Qi Benedict IG # 0.03 10e3/ul Normal 0.00-0.03 [facility] Comment on above: Performed By: #### D RUGRPD #### [facility] [address] [place] [address] Dr. Qi Benedict IG % 0.3 % Normal 0.0-0.5 [facility] Comment on above: Performed By: #### D RUGRPD #### [facility] [address] [place] [address] Dr. Qi Benedict LYMPH # 1.5 103/ul Normal 1.2-3.8 [facility] Comment on above: Performed By: #### D RUGRPD #### [facility] [address] [place] [address] Dr. Qi Benedict Lymphocytes/100 WBC (Bld) 14.8 % Critically low 20.5-60.0 [facility] Comment on above: Performed By: #### D RUGRPD #### [facility] [address] [place] [address] Dr. Qi Benedict MANUAL DIFF REQ NO Normal [facility] Comment on above: Performed By: #### D RUGRPD #### [facility] [address] [place] [address] Dr. Qi Benedict MCH (RBC) [Entitic mass] 30.1 pg Normal 26.7-34.0 [facility] Comment on above: Performed By: #### D RUGRPD #### [facility] [address] [address] [address] Qi Benedict MCHC (RBC) [Mass/Vol] 33.1 g/dL Normal 29.9-35.2 [facility] Comment on above: Performed By: #### D RUGRPD #### [facility] [address] [address] [address] Qi Benedict MCV (RBC) [Entitic vol] 90.7 fL Normal 81.0-99.0 [facility] Comment on above: Performed By: #### D RUGRPD #### [facility] [address] [address] [address] Qi Benedict MONO # 0.8 103/ul Normal 0.3-0.8 [facility] Comment on above: Performed By: #### D RUGRPD #### [facility] [address] [address] [address] Qi Benedict Monocytes/100 WBC (Bld) 7.4 % Normal 1.7-12.0 [facility] Comment on above: Performed By: #### D RUGRPD #### [facility] [address] [address] [address] iQ Benedict NEUT # 7.7 103/ul Critically high 1.4-6.5 [facility] Comment on above: Performed By: #### D RUGRPD #### [facility] [address] [address] [address] Qi Benedict Neutrophils/100 WBC (Bld) 75.9 % Critically high 43.0-75.0 [facility] Comment on above: Performed By: #### D RUGRPD #### [facility] [address] [address] [address] Qi Benedict Platelet mean volume (Bld) [Entitic vol] 10.7 fL Normal 9.5-13.5 [facility] Comment on above: Performed By: #### D RUGRPD #### [facility] [address] [address] [address] Qi Benedict PLT 247 103/ul Normal 150-450 [facility] Comment on above: Performed By: #### D RUGRPD #### [facility] [address] [address] [address] Qi Benedict RBC 3.96 106/ul Critically low 4.20-5.40 [facility] Comment on above: Performed By: #### D RUGRPD #### [facility] [address] [address] [address] Qi Benedict WBC 10.2 103/ul Normal 4.0-11.0 [facility] Comment on above: Performed By: #### D RUGRPD #### [facility] [address] [address] [address] Qi Benedict Covid-19 PCR ([facility])on 01-09 SARS-CoV-2 (COVID-19) RNA STEFANIE+probe Ql (Unsp spec) Not detected Normal NOT DETECTED [facility] Comment on above: Result Comment: [...] for this test is supported by the [place] of [employer] and Human Service's declaration that [...] used). Performed By: #### A FPMAT #### [facility] [address] [id number] Qi Benedict DRUG SCREEN RAPID (URINE)on 01-29-2022 AMP Negative Normal NEGATIVE [facility] Comment on above: Performed By: #### D RUGRPD #### [facility] [address] [address] [address] Qi Benedict BAR Negative Normal NEGATIVE [facility] Comment on above: Performed By: #### D RUGRPD #### [facility] [address] [place] [address] Dr. Qi Benedict BUP Negative Normal NEGATIVE [facility] Comment on above: Performed By: #### D RUGRPD #### [facility] [address] [place] [address] Dr. Qi Benedict BZO Negative Normal NEGATIVE [facility] Comment on above: Performed By: #### D RUGRPD #### [facility] [address] [address] [address] Qi Benedict GIN Negative Normal NEGATIVE [facility] Comment on above: Performed By: #### D RUGRPD #### [facility] [address] [place] [address] Dr. Qi Benedict CUT-OFFS SEE BELOW Normal [facility] Comment on above: Result Comment: AMP (Amphetamine): 500ng/mL, BAR (Barbituates): 200 ng/mL, BZO (Benzodiazepines): 150 ng/mL, BUP (Buprenorphine): 10 ng/mL, GIN (Cocaine): 150 ng/mL, mAMP (Methamphetamine): 500 ng/mL, MTD (Methadone): 200 ng/mL, OPI (Opiates): 100 ng/mL, OXY (Oxycodone): 100 ng/mL, PCP (Phencyclidine): 25 ng/mL, PPX (Propoxyphene): 300 ng/mL, THC (Cannabinoids): 50 ng/mL, TCA (Trycyclic Antidepressants): 300 ng/mL Performed By: #### D RUGRPD #### [facility] [address] [place] [address] Dr. Qi Benedict DRUG CUT HEADER DRUG CLASS TEST SYSTEM CUT-OFF CONCENTRATIONS ARE FOLLOWS: Normal [facility] Comment on above: Performed By: #### D RUGRPD #### [facility] [address] [place] [address] Dr. Qi Benedict mAMP Negative Normal NEGATIVE [facility] Comment on above: Performed By: #### D RUGRPD #### [facility] [address] [address] [address] Qi Benedict MTD Negative Normal NEGATIVE [facility] Comment on above: Performed By: #### D RUGRPD #### [facility] [address] [place] [address] Dr. Qi Benedict OPI Negative Normal NEGATIVE [facility] Comment on above: Performed By: #### D RUGRPD #### [facility] [address] [address] [address] Qi Benedict OXY Negative Normal NEGATIVE [facility] Comment on above: Performed By: #### D RUGRPD #### [facility] [address] [place] [address] Dr. Qi Benedict PCP Negative Normal NEGATIVE [facility] Comment on above: Performed By: #### D RUGRPD #### [facility] [address] [place] [address] Dr. Qi Benedict PPX Negative Normal NEGATIVE [facility] Comment on above: Performed By: #### D RUGRPD #### [facility] [address] [place] [address] Dr. Qi Benedict TCA Negative Normal NEGATIVE [facility] Comment on above: Performed By: #### D RUGRPD #### [facility] [address] [place] [address] Dr. Qi Benedict THC Positive Abnormal NEGATIVE [facility] Comment on above: Performed By: #### D RUGRPD #### [facility] [address] [place] [address] Dr. Qi Benedict TYPE AND SCREENon 01-29-2022 TYPE AND SCREEN Negative Normal [facility] Comment on above: Performed By: #### T NS #### [facility] [address] [place] [address] Dr. Qi Benedict GROUP B STREP CULTUREon 01-08 S. agalactiae Ag Ql (Unsp spec) Culture Observations: NEGATIVE FOR GROUP B STREPTOCOCCUS. Normal [facility] Comment on above: Performed By: #### G BSCX #### [facility] [address] [place] [address] Dr. Qi Benedict AMNISUREon 01-04-2022 AMNISURE Negative Normal NEGATIVE [facility] Comment on above: Performed By: #### D RUGRPD #### [facility] [address] [place] [address] Dr. Qi Benedict UA (CLEAN/CATCH) AUTOMOTIVE GLASS TECHNICIAN/MICRO I F IND.on 01-04-2022 Bilirubin Ql (U) Negative Normal NEGATIVE [facility] Comment on above: Performed By: #### A FPMAT #### [facility] [address] [place] [address] Dr. Qi Benedict Clarity (U) CLEAR Normal CLEAR [facility] Comment on above: Performed By: #### A FPMAT #### [facility] [address] [place] [address] Dr. Qi Benedict Color (U) YELLOW Normal YELLOW [facility] Comment on above: Performed By: #### A FPMAT #### [facility] [address] [place] [address] Dr. Qi Benedict Glucose Ql (U) 100 mg/dl Abnormal NEGATIVE [facility] Comment on above: Performed By: #### A FPMAT #### [facility] [address] [place] [address] Dr. Qi Benedict Hemoglobin Ql (U) Negative Normal NEGATIVE [facility] Comment on above: Performed By: #### A FPMAT #### [facility] [address] [place] [address] Dr. Qi Benedict Ketones Ql (U) 15 mg/dl Abnormal NEGATIVE [facility] Comment on above: Performed By: #### A FPMAT #### [facility] [address] [place] [address] Dr. Qi Benedict LEUKOCYTES Negative Normal NEGATIVE [facility] Comment on above: Performed By: #### A FPMAT #### [facility] [address] [place] [address] Dr. Qi Benedict Nitrite Ql (U) Negative Normal NEGATIVE [facility] Comment on above: Performed By: #### A FPMAT #### [facility] [address] [place] [address] Dr. Qi Benedict pH (U) 6.0 [pH] Normal 5-9 [facility] Comment on above: Performed By: #### A FPMAT #### [facility] [address] [place] [address] Dr. Qi Benedict SPEC GRAVITY 1.025 Normal 1.005-<=1.02 5 [facility] Comment on above: Performed By: #### A FPMAT #### [facility] [address] [place] [address] Dr. Qi Benedict UA PROTEIN TRACE Normal NEGATIVE/ TRACE [facility] Comment on above: Performed By: #### A FPMAT #### [facility] [address] [place] [address] Dr. Qi Benedict UR MICRO IND NOT INDICATED Normal [facility] Comment on above: Performed By: #### A FPMAT #### [facility] [address] [place] [address] Dr. Qi Benedict Urobilinogen Qn (U) 0.2 {Yessi'U}/dL Normal 0.2 - 1. 0 [facility] Comment on above: Performed By: #### A FPMAT #### [facility] [address] [place] [address] Dr. Qi Benedict US PREG GROWTHon 12-26-2021 [...] LYSSA STEWART Date: 2021-12-26 06:06 Normal [facility] US PREG PLACENTAon 2 US PREG [...] LYSSA STEWART Date: 2021 12:43 Normal [facility] AFP MATERNAL FOR SPINA BIFID Aon 10-05-2021 AFP MoM 1.33 Normal [facility] Comment on above: Performed By: #### A FPMAT #### [facility] [address] [address] [address] Qi Benedict AFP Value 78.0 ng/mL Normal [facility] Comment on above: Performed By: #### A FPMAT #### [facility] [address] [address] [address] Qi Benedict AFP, Serum for Spina Bifida Report Normal [facility] Comment on above: Performed By: #### A FPMAT #### [facility] [address] [address] [address] Qi Benedict Comment Comment Normal [facility] Comment on above: Result Comment: Pinky Tatum, Ph.D., [facility] Director . References: Available Upon Request. . Multiples Of Median Cutoffs For AFP Elevations Lundberg 2.5 Black 2.8 IDD 2.0 Twins 4.5 Abbreviation Definitions IDD - Insulin Dep Diabetes OSBR - Open Spina Bifida Risk . For further inquiries contact [employer] at [phone]. . This test was developed and its performance characteristics determined by [employer]. It has not been cleared or approved by the Food and Drug Administration. Performed By: #### A FPMAT #### [facility] [address] [place] [address] Dr. Qi Prince Age Collection Date 20.7 weeks Normal [facility] Comment on above: Performed By: #### A FPMAT #### [facility] [address] [place] [address] Dr. Qi Benedict Gestat, Age Based on HONEY [facility] Comment on above: Result Comment: 05/2022 Recalculations are not recommended when gestational dating by LMP and ultrasound are within 10 days. Performed By: #### A FPMAT #### [facility] [address] [place] [address] Dr. Qi Benedict Insulin Dep Diabetes No Normal [facility] Comment on above: Performed By: #### A FPMAT #### [facility] [address] [place] [address] Dr. Qi Benedict Interpretation Comment Normal [facility] Comment on above: Result Comment: Inte rpretation: [...] Customer Services to discuss available options. The [employer] recommends amniocentesis be offered to women age 35 and older. Performed By: #### A FPMAT #### [facility] [address] [place] [address] Dr. Qi Benedict [age] Normal [place] Comment on above: Performed By: #### A FPMAT #### [facility] [address] [place] [address] Dr. Qi Benedict Multiple Gestation No Normal [facility] Comment on above: Performed By: #### A FPMAT #### [facility] [address] [address] [address] Qi Benedict OSBR Risk 1 [place] 4399 Normal [facility] Comment on above: Performed By: #### A FPMAT #### [facility] [address] [address] [address] Qi Benedict PDF . Normal [facility] Comment on above: Performed By: #### A FPMAT #### [facility] [address] [address] [address] Qi Benedict Race Normal [facility] Comment on above: Performed By: #### A FPMAT #### [facility] [address] [address] [address] Qi Benedict Test Results: Negative [facility] Comment on above: Performed By: #### A FPMAT #### [facility] [address] [place] [address] Dr. Qi Benedict HEP B SURFACE ANTIGEN SCREEN on 09-30-2021 HBsAg Screen Negative Normal Negative [facility] Comment on above: Performed By: #### C BC #### [facility] [address] [place] [address] Dr. Qi Benedict HEPATITIS C VIRUS AB W/ REFL EX QUANTon 09-30-2021 HCV AB <0.1 Normal 0.0-0.9 [facility] Comment on above: Performed By: #### H CVPCRR #### [facility] [address] [place] [address] Dr. Qi Benedict Interpretation: Comment Normal [facility] Comment on above: Result Comment: Nega tive Not infected with HCV, unless recent infection is suspected or other evidence exists to indicate HCV infection. Performed By: #### H CVPCRR #### [facility] [address] [place] [address] Dr. Qi Benedict HIV 1 AND 2 WITH REFLEXon HIV Screen 4th Generation wRfx Non-Reactive Normal Non Reactive [facility] Comment on above: Result Comment: HIV Negative HIV-1/HIV-2 antibodies and HIV-1 p24 antigen were NOT detected. There is no laboratory evidence of HIV infection. Performed By: #### D RUGRPD #### [facility] [address] [place] [address] Dr. Qi Benedict RPR QUANTon 09-30-2021 Rapid Plasma Reagin, Quant Non-Reactive Normal NonRea<1:1 [facility] Comment on above: Result Comment: Plea se Note: This test does not meet current guidelines for screening and diagnosis of syphilis. This test is intended for following treatment response in patients being treated for syphilis infection. To screen for syphilis infection, a reflex cascade that includes both RPR and a treponema-specific assay should be utilized, such as Treponema pallidum (Syphilis) Screening Z[place]ata (444340) or Rapid Plasma Reagin (RPR) Test With Reflex to Quantitative RPR and Confirmatory Treponema pallidum Antibodies (485808). Performed By: #### R PRQ #### [facility] [address] [place] [address] Dr. Qi Benedict RUBELLA AB IGGon 09-30-2021 Rubella Antibodies, IgG 1.44 index Normal Immune >0.99 [facility] Comment on above: Result Comment: Non- immune <0.90 Equivocal 0.90 - 0.99 Immune >0.99 Performed By: #### D RUGRPD #### [facility] [address] [place] [address] Dr. Qi Benedict VARICELLA IGG ABon Varicella Zoster IgG <135 Critically low Immune >165 [facility] Comment on above: Result Comment: Nega tive <135 Equivocal 135 - 165 Positive >165 A positive result generally indicates exposure to the pathogen or administration of specific immunoglobulins, but it is not indication of active infection or stage of disease. Performed By: #### V ARCEL #### [facility] [address] [place] [address] Dr. Qi Benedict CBC AUTO DIFFon 09-29-2021 BASO # 0.0 103/ul Normal 0.0-0.1 [facility] Comment on above: Performed By: #### C BC #### [facility] [address] [place] [address] Dr. Qi Benedict Basophils/100 WBC (Bld) 0.3 % Normal 0.2-2.0 [facility] Comment on above: Performed By: #### C BC #### [facility] [address] [place] [address] Dr. Qi Benedict EO # 0.1 103/ul Normal 0.0-0.7 [facility] Comment on above: Performed By: #### C BC #### [facility] [address] [place] [address] Dr. Qi Benedict Eosinophils/100 WBC (Bld) 1.1 % Normal 0.9-7.0 [facility] Comment on above: Performed By: #### C BC #### [facility] [address] [place] [address] Dr. Qi Benedict Erythrocyte distribution width (RBC) [Ratio] 12.7 % Normal 11.0-15.0 [facility] Comment on above: Performed By: #### C BC #### [facility] [address] [place] [address] Dr. Qi Benedict Hematocrit (Bld) [Volume fraction] 35.7 % Critically low 36.0-48.0 [facility] Comment on above: Performed By: #### C BC #### [facility] [address] [place] [address] Dr. Qi Benedict Hemoglobin (Bld) [Mass/Vol] 11.9 g/dL Critically low 12.0-16.0 [facility] Comment on above: Performed By: #### C BC #### [facility] [address] [place] [address] Dr. Qi Benedict IG # 0.04 10e3/ul Critically high 0.00-0.03 [facility] Comment on above: Performed By: #### C BC #### [facility] [address] [place] [address] Dr. Qi Benedict IG % 0.4 % Normal 0.0-0.5 [facility] Comment on above: Performed By: #### C BC #### [facility] [address] [place] [address] Dr. Qi Benedict LYMPH # 1.5 103/ul Normal 1.2-3.8 [facility] Comment on above: Performed By: #### C BC #### [facility] [address] [place] [address] Dr. Qi Benedict Lymphocytes/100 WBC (Bld) 14.1 % Critically low 20.5-60.0 [facility] Comment on above: Performed By: #### C BC #### [facility] [address] [place] [address] Dr. Qi Benedict MANUAL DIFF REQ NO Normal [facility] Comment on above: Performed By: #### C BC #### [facility] [address] [place] [address] Dr. Qi Benedict MCH (RBC) [Entitic mass] 31.6 pg Normal 26.7-34.0 [facility] Comment on above: Performed By: #### C BC #### [facility] [address] [place] [address] Dr. Qi Benedict MCHC (RBC) [Mass/Vol] 33.3 g/dL Normal 29.9-35.2 [facility] Comment on above: Performed By: #### C BC #### [facility] [address] [place] [address] Dr. Qi Benedict MCV (RBC) [Entitic vol] 94.7 fL Normal 81.0-99.0 [facility] Comment on above: Performed By: #### C BC #### [facility] [address] [place] [address] Dr. Qi Benedict MONO # 0.5 103/ul Normal 0.3-0.8 [facility] Comment on above: Performed By: #### C BC #### [facility] [address] [place] [address] Dr. Qi Benedict Monocytes/100 WBC (Bld) 5.0 % Normal 1.7-12.0 [facility] Comment on above: Performed By: #### C BC #### [facility] [address] [place] [address] Dr. Qi Benedict NEUT # 8.2 103/ul Critically high 1.4-6.5 [facility] Comment on above: Performed By: #### C BC #### [facility] [address] [place] [address] Dr. Qi Benedict Neutrophils/100 WBC (Bld) 79.1 % Critically high 43.0-75.0 [facility] Comment on above: Performed By: #### C BC #### [facility] [address] [place] [address] Dr. Qi Benedict Platelet mean volume (Bld) [Entitic vol] 9.7 fL Normal 9.5-13.5 [facility] Comment on above: Performed By: #### C BC #### [facility] [address] [place] [address] Dr. Qi Benedict PLT 200 103/ul Normal 150-450 [facility] Comment on above: Performed By: #### C BC #### [facility] [address] [place] [address] Dr. Qi Benedict RBC 3.77 106/ul Critically low 4.20-5.40 [facility] Comment on above: Performed By: #### C BC #### [facility] [address] [place] [address] Dr. Qi Benedict WBC 10.4 103/ul Normal 4.0-11.0 [facility] Comment on above: Performed By: #### C BC #### [facility] [address] [place] [address] Dr. Qi Benedict CULTURE URINEon 09-29-2021 CULTURE URINE Culture Observations : NO GROWTH. Normal [facility] Comment on above: Performed By: #### A FPMAT #### [facility] [address] [place] [address] Dr. Qi Benedict GLYCOHEMOGLOBIN A1Con 2021 ADA RECOMMENDATION SEE BELOW Normal [facility] Comment on above: Result Comment: ADA RECOMMENDED LIMIT 4.0 - 6.0 ADA THERAPEUTIC TARGET < 7.0 ACTION SUGGESTED > 7.0 Performed By: #### D RUGRPD #### [facility] [address] [place] [address] Dr. Qi Benedict Glucose [Mass/Vol] 82 mg/dL Normal The [facility] Comment on above: Performed By: #### D RUGRPD #### [facility] [address] [place] [address] Dr. Qi Benedict HbA1c (Bld) [Mass fraction] 4.5 % Normal 4.5-6.2 [facility] Comment on above: Performed By: #### D RUGRPD #### [facility] [address] [place] [address] Dr. Qi Benedict TANESHA BOX TEST PT SEND OUTo n 09-29-2021 SENT TO REF LAB 09/29/2021 Normal [facility] Comment on above: Performed By: #### A FPMAT #### [facility] [address] [place] [address] Dr. Qi Benedict TYPE AND SCREENon 09-29-2021 TYPE AND SCREEN Negative Normal [facility] Comment on above: Performed By: #### A FPMAT #### [facility] [address] [place] [address] Dr. Qi Benedict US PREG ANATOMY SINGLEon [...] LYSSA STEWART Date: 2021-09-25 22:35 Normal The [facility] CBC AUTO DIFFon 08-29-2021 BASO # 0.0 103/ul Normal 0.0-0.1 [facility] Comment on above: Performed By: #### C BC #### [facility] [address] [place] [address] Dr. Qi Benedict Basophils/100 WBC (Bld) 0.3 % Normal 0.2-2.0 [facility] Comment on above: Performed By: #### C BC #### [facility] [address] [place] [address] Dr. Qi Benedict EO # 0.1 103/ul Normal 0.0-0.7 [facility] Comment on above: Performed By: #### C BC #### [facility] [address] [place] [address] Dr. Qi Benedict Eosinophils/100 WBC (Bld) 1.1 % Normal 0.9-7.0 [facility] Comment on above: Performed By: #### C BC #### [facility] [address] [place] [address] Dr. Qi Benedict Erythrocyte distribution width (RBC) [Ratio] 13.2 % Normal 11.0-15.0 [facility] Comment on above: Performed By: #### C BC #### [facility] [address] [place] [address] Dr. Qi Benedict Hematocrit (Bld) [Volume fraction] 36.5 % Normal 36.0-48.0 [facility] Comment on above: Performed By: #### C BC #### [facility] [address] [place] [address] Dr. Qi Benedict Hemoglobin (Bld) [Mass/Vol] 12.4 g/dL Normal 12.0-16.0 [facility] Comment on above: Performed By: #### C BC #### [facility] [address] [place] [address] Dr. Qi Benedict IG # 0.03 10e3/ul Normal 0.00-0.03 [facility] Comment on above: Performed By: #### C BC #### [facility] [address] [place] [address] Dr. Qi Benedict IG % 0.3 % Normal 0.0-0.5 [facility] Comment on above: Performed By: #### C BC #### [facility] [address] [place] [address] Dr. Qi Benedict LYMPH # 1.3 103/ul Normal 1.2-3.8 [facility] Comment on above: Performed By: #### C BC #### [facility] [address] [place] [address] Dr. Qi Benedict Lymphocytes/100 WBC (Bld) 13.4 % Critically low 20.5-60.0 [facility] Comment on above: Performed By: #### C BC #### [facility] [address] [place] [address] Dr. Qi Benedict MANUAL DIFF REQ NO Normal [facility] Comment on above: Performed By: #### C BC #### [facility] [address] [place] [address] Dr. Qi Benedict MCH (RBC) [Entitic mass] 31.2 pg Normal 26.7-34.0 [facility] Comment on above: Performed By: #### C BC #### [facility] [address] [place] [address] Dr. Qi Benedict MCHC (RBC) [Mass/Vol] 34.0 g/dL Normal 29.9-35.2 [facility] Comment on above: Performed By: #### C BC #### [facility] [address] [place] [address] Dr. Qi Benedict MCV (RBC) [Entitic vol] 91.9 fL Normal 81.0-99.0 [facility] Comment on above: Performed By: #### C BC #### [facility] [address] [place] [address] Dr. Qi Benedict MONO # 0.5 103/ul Normal 0.3-0.8 [facility] Comment on above: Performed By: #### C BC #### [facility] [address] [place] [address] Dr. Qi Benedict Monocytes/100 WBC (Bld) 5.3 % Normal 1.7-12.0 [facility] Comment on above: Performed By: #### C BC #### [facility] [address] [place] [address] Dr. Qi Benedict NEUT # 7.6 103/ul Critically high 1.4-6.5 [facility] Comment on above: Performed By: #### C BC #### [facility] [address] [place] [address] Dr. Qi Benedict Neutrophils/100 WBC (Bld) 79.6 % Critically high 43.0-75.0 [facility] Comment on above: Performed By: #### C BC #### [facility] [address] [place] [address] Dr. Qi Benedict Platelet mean volume (Bld) [Entitic vol] 9.5 fL Normal 9.5-13.5 [facility] Comment on above: Performed By: #### C BC #### [facility] [address] [place] [address] Dr. Qi Benedict PLT 229 103/ul Normal 150-450 [facility] Comment on above: Performed By: #### C BC #### [facility] [address] [place] [address] Dr. Qi Benedict RBC 3.97 106/ul Critically low 4.20-5.40 [facility] Comment on above: Performed By: #### C BC #### [facility] [address] [place] [address] Dr. Qi Benedict WBC 9.5 103/ul Normal 4.0-11.0 [facility] Comment on above: Performed By: #### C BC #### [facility] [address] [place] [address] Dr. Qi Benedict Covid-19 PCR (CVDTB)on 08-09 SARS-CoV-2 (COVID-19) RNA STEFANIE+probe Ql (Unsp spec) Not detected Normal NOT DETECTED [facility] Comment on above: Result Comment: [...] for this test is supported by the [place] of [employer] and Human Service's declaration that [...] used). Performed By: #### C VDTBH #### [facility] [address] [place] [address] Dr. Qi Benedict ER URINE PROFILEon 2 Bilirubin Ql (U) Negative Normal NEGATIVE [facility] Comment on above: Performed By: #### D RUGRPD #### [facility] [address] [place] [address] Dr. Qi Benedict Clarity (U) CLEAR Normal CLEAR [facility] Comment on above: Performed By: #### D RUGRPD #### [facility] [address] [place] [address] Dr. Qi Benedict Color (U) YELLOW Normal YELLOW The [facility] Comment on above: Performed By: #### D RUGRPD #### [facility] [address] [place] [address] Dr. Qi Benedict ERUAHD A micrscopic examination will be performed if indicated. Normal The [facility] Comment on above: Performed By: #### D RUGRPD #### [facility] [address] [address] [address] Qi Benedict Glucose Ql (U) Negative Normal NEGATIVE [facility] Comment on above: Performed By: #### D RUGRPD #### [facility] [address] [place] [address] Dr. Qi Benedict Hemoglobin Ql (U) Negative Normal NEGATIVE [facility] Comment on above: Performed By: #### D RUGRPD #### [facility] [address] [address] [address] Qi Benedict Ketones Ql (U) Negative Normal NEGATIVE [facility] Comment on above: Performed By: #### D RUGRPD #### [facility] [address] [place] [address] Dr. Qi Benedict LEUKOCYTES Negative Normal NEGATIVE [facility] Comment on above: Performed By: #### D RUGRPD #### [facility] [address] [place] [address] Dr. Qi Benedict Nitrite Ql (U) Negative Normal NEGATIVE [facility] Comment on above: Performed By: #### D RUGRPD #### [facility] [address] [place] [address] Dr. Qi Benedict pH (U) 6.0 [pH] Normal 5-9 [facility] Comment on above: Performed By: #### D RUGRPD #### [facility] [address] [place] [address] Dr. Qi Benedict SPEC GRAVITY 1.025 Normal 1.005-<=1.02 5 [facility] Comment on above: Performed By: #### D RUGRPD #### [facility] [address] [place] [address] Dr. Qi Benedict UA PROTEIN Negative Normal NEGATIVE/ TRACE [facility] Comment on above: Performed By: #### D RUGRPD #### [facility] [address] [place] [address] Dr. Qi Benedict UR MICRO IND NOT INDICATED Normal [facility] Comment on above: Performed By: #### D RUGRPD #### [facility] [address] [place] [address] Dr. Qi Benedict Urobilinogen Qn (U) 0.2 {Yessi'U}/dL Normal 0.2 - 1. 0 [facility] Comment on above: Performed By: #### D RUGRPD #### [facility] [address] [place] [address] Dr. Qi Benedict PROF 14(COMP METB)on 022 Albumin [Mass/Vol] 2.9 g/dL Critically low 3.4-5.0 [facility] Comment on above: Performed By: #### D RUGRPD #### [facility] [address] [place] [address] Dr. Qi Benedict Albumin/Globulin [Mass ratio] 0.8 {ratio} Normal [facility] Comment on above: Performed By: #### D RUGRPD #### [facility] [address] [place] [address] Dr. Qi Benedict ALP [Catalytic activity/Vol] 43 U/L Critically low 46-116 [facility] Comment on above: Performed By: #### D RUGRPD #### [facility] [address] [place] [address] Dr. Qi Benedict ALT [Catalytic activity/Vol] 13 U/L Critically low 14-59 [facility] Comment on above: Performed By: #### D RUGRPD #### [facility] [address] [place] [address] Dr. Qi Benedict Anion gap [Moles/Vol] 10.6 mmol/L Normal Th [facility] Comment on above: Performed By: #### D RUGRPD #### [facility] [address] [place] [address] Dr. Qi Benedict AST [Catalytic activity/Vol] 9 U/L Critically low 15-37 [facility] Comment on above: Performed By: #### D RUGRPD #### [facility] [address] [place] [address] Dr. Qi Benedict Bilirubin [Mass/Vol] 0.4 mg/dL Normal 0.2-1.0 [facility] Comment on above: Performed By: #### D RUGRPD #### [facility] [address] [place] [address] Dr. Qi Benedict Calcium [Mass/Vol] 8.5 mg/dL Normal 8.5-10.1 [facility] Comment on above: Performed By: #### D RUGRPD #### [facility] [address] [place] [address] Dr. Qi Benedict Chloride [Moles/Vol] 104 mmol/L Normal 98-107 [facility] Comment on above: Performed By: #### D RUGRPD #### [facility] [address] [place] [address] Dr. Qi Benedict CO2 [Moles/Vol] 27.0 mmol/L Normal 21.0-32.0 [facility] Comment on above: Performed By: #### D RUGRPD #### [facility] [address] [place] [address] Dr. Qi Benedict Creatinine [Mass/Vol] 0.61 mg/dL Normal 0.55-1.02 [facility] Comment on above: Performed By: #### D RUGRPD #### [facility] [address] [place] [address] Dr. Qi Benedict EGFR-AF MONEGASQUE >60 Normal >=60 [facility] Comment on above: Performed By: #### D RUGRPD #### [facility] [address] [place] [address] Dr. Qi Benedict EGFR-NON AF MONEGASQUE >60 Normal >=60 [facility] Comment on above: Performed By: #### D RUGRPD #### [facility] [address] [place] [address] Dr. Qi Benedict Globulin (S) [Mass/Vol] 3.6 g/dL Normal [facility] Comment on above: Performed By: #### D RUGRPD #### [facility] [address] [place] [address] Dr. Qi Benedict Glucose [Mass/Vol] 83 mg/dL Normal 74-106 The [facility] Comment on above: Performed By: #### D RUGRPD #### [facility] [address] [address] [address] Qi Benedict Potassium [Moles/Vol] 3.6 mmol/L Normal 3.5-5.1 [facility] Comment on above: Performed By: #### D RUGRPD #### [facility] [address] [address] [address] Qi Benedict Protein [Mass/Vol] 6.5 g/dL Normal 6.4-8.2 [facility] Comment on above: Performed By: #### D RUGRPD #### [facility] [address] [address] [address] Qi Benedict Sodium [Moles/Vol] 138 mmol/L Normal 136-145 [facility] Comment on above: Performed By: #### D RUGRPD #### [facility] [address] [address] [address] Qi Benedict Urea nitrogen [Mass/Vol] 10.0 mg/dL Normal 7.0-18.0 [facility] Comment on above: Performed By: #### D RUGRPD #### [facility] [address] [address] [address] Qi Benedict Urea nitrogen/Creatinine [Mass ratio] 16.4 mg/mg Normal [facility] Comment on above: Performed By: #### D RUGRPD #### [facility] [address] [address] [address] Qi Benedict HCG, ,Urineon 05-31 Beta HCG ( test) Ql (U) Negative Normal NEG [facility] Comment on above: Result Comment: [...] suggested. Performed By: #### U HCG #### [address] [address] [employer]: Ketan Lares MD Otheron 06-01-2019 No acute osseous abnormality in the right ankle No acute osseous abnormality in the thoracic spine. [place], [place] EXAMINATION: THREE XRAY VIEWS OF THE [...] loss of height. There is no fracture [place], [place] Julián, M[employer] Incoming Radiant Results From [employer] - 06/01/2019 3:36 PM EDT EXAMINATION: THREE [...] acute osseous abnormality in the thoracic spine. [place], [place] , Urineon 0 Beta HCG ( test) Ql (U) Negative NEGATIVE [place] Comment on above: Specimens with hCG [...] Ann-Marie Medrano MD 06/01/19 Final result Normal [facility] XR THORACIC SPINE (3 VIEWS)o [...] Ann-Marie Medrano MD 06/01/19 Final result Normal [facility] XR ANKLE RIGHT (MIN 3 [...] Judah Swift MD 05/25/19 Final result Normal [facility] No fracture or dislocation. [facility] [place] EXAM[facility]: THREE XRAY VIEWS OF THE RIGHT ANKLE 05/25/2019 12:05 am COMPARISON: 09/12/2018 HISTORY: ORDERING SYSTEM PROVIDED HISTORY: Fall TECHNOLOGIST PROVIDED HISTORY: Fall Reason for Exam: Diffuse right ankle pain Acuity: Acute Type of Exam: Initial Mechanism of Injury: fall FINDINGS: No fracture, dislocation, or focal osseous lesion is noted. No significant soft tissue abnormality seen. [facility] [place], [employer] Incoming Radiant Results From [employer] - 05/25/2019 12:15 AM EDT EXAMINATION: THREE [...] abnormality seen. IMPRESSION: No fracture or dislocation. [employer] HCG, Quanton 05-16-2019 HCG, Quant <1 Normal <5 [facility] Comment on above: Result Comment: [...] liver. Performed By: #### B HCG #### [facility] [place] [address] [employer]: Torsten Philip MD HCG, Quantitative, on 05-15-2019 hCG Quant <1 <5 IU/L [facility], [place] Comment on above: Non-preg premeno <=5 [...] Theo Dolan MD 03/12/19 Final result Normal [facility] CBC with Diffon 01-08-2019 Abs. Basophil 0.10 k/uL Normal 0.0-0.2 [facility] Comment on above: Performed By: #### C DP, HCG, LIP, CP, TROPI, DIME #### [facility] [address] [facility] [place], [place] [id number] [employer]: Jeremie Gross DO Abs.Neutrophil (Seg) 5.00 k/uL Normal 1.3-9.1 [facility] Comment on above: Performed By: #### C DP, HCG, LIP, CP, TROPI, DIME #### [facility] [address] [place] [address] [employer]: Jeremie Gross DO Basophils/100 WBC (Bld) 1 % Normal 0-2 [facility] Comment on above: Performed By: #### C DP, HCG, LIP, CP, TROPI, DIME #### [facility] [address] [place] [address] [employer] Tender: Jeremie Gross DO Eosinophils (Bld) [#/Vol] 0.30 10*3/uL Normal 0.0-0.4 [facility] Comment on above: Performed By: #### C DP, HCG, LIP, CP, TROPI, DIME #### [facility] [address] [place] [address] [employer]: Jeremie Gross DO Eosinophils/100 WBC (Bld) 3 % Normal 0-4 [facility] Comment on above: Performed By: #### C DP, HCG, LIP, CP, TROPI, DIME #### [facility] [address] [place] [address] [employer]: Jeremie Gross DO Erythrocyte distribution width (RBC) [Ratio] 12.9 % Normal 11.5-14.9 [facility] Comment on above: Performed By: #### C DP, HCG, LIP, CP, TROPI, DIME #### [facility] [address] [place] [address] [employer]: Jeremie Gross DO Hematocrit (Bld) [Volume fraction] 43.0 % Normal 36-46 [facility] Comment on above: Performed By: #### C DP, HCG, LIP, CP, TROPI, DIME #### [facility] [address] [place] [address] [employer]: Jeremie Gross DO Hemoglobin (Bld) [Mass/Vol] 14.6 g/dL Normal 12.0-16.0 [facility] Comment on above: Performed By: #### C DP, HCG, LIP, CP, TROPI, DIME #### [facility] [address] [place] [address] [employer] Tender: Jeremie Gross DO Lymphocytes (Bld) [#/Vol] 3.10 10*3/uL Normal 1.2-5.2 [facility] Comment on above: Performed By: #### C DP, HCG, LIP, CP, TROPI, DIME #### [facility] [address] [place] [address] [employer] Tender: Jeremie Gross DO Lymphocytes/100 WBC (Bld) 34 % Normal 25-45 [facility] Comment on above: Performed By: #### C DP, HCG, LIP, CP, TROPI, DIME #### [facility] [place] [address] [employer] Machine Tender: Jeremie Gross DO MCH (RBC) [Entitic mass] 30.9 pg Normal 26-34 [facility] Comment on above: Performed By: #### C DP, HCG, LIP, CP, TROPI, DIME #### [facility] [place] [address] [employer] Tender: Jeremie Gross DO MCHC (RBC) [Mass/Vol] 33.9 g/dL Normal 31-[address] [facility] Comment on above: Performed By: #### C DP, HCG, LIP, CP, TROPI, DIME #### [facility] [address] [place] [address] [employer]ender: Jeremie Gross DO MCV (RBC) [Entitic vol] 91.1 fL Normal 80-100 [facility] Comment on above: Performed By: #### C DP, HCG, LIP, CP, TROPI, DIME #### [facility] [address] [place] [address] [employer] Tender: Jeremie Gross DO Monocytes (Bld) [#/Vol] 0.70 10*3/uL Normal 0.1-1.3 [facility] Comment on above: Performed By: #### C DP, HCG, LIP, CP, TROPI, DIME #### [facility] [address] [place] [address] [employer] Tender: Jeremie Gross DO Monocytes/100 WBC (Bld) 8 % Normal 2-8 [facility] Comment on above: Performed By: #### C DP, HCG, LIP, CP, TROPI, DIME #### [facility] [address] [place] [address] [employer] Tender: Jeremie Gross DO Neutrophil (Seg) 54 % Normal 34-64 [facility] Comment on above: Performed By: #### C DP, HCG, LIP, CP, TROPI, DIME #### [facility] [address] [place] [address] [employer] Tender: Jeremie Gross DO Platelet mean volume (Bld) [Entitic vol] 7.8 fL Normal 6.0-12.0 [facility] Comment on above: Performed By: #### C DP, HCG, LIP, CP, TROPI, DIME #### [facility] [address] [place] [address] [employer] Tender: Jeremie Gross DO Platelets (Bld) [#/Vol] 245 10*3/uL Normal 150-450 [facility] Comment on above: Performed By: #### C DP, HCG, LIP, CP, TROPI, DIME #### [facility] [address] [place] [address] [employer] Tender: Jeremie Gross DO RBC (Bld) [#/Vol] 4.71 10*6/uL Normal 4.0-5.2 [facility] Comment on above: Performed By: #### C DP, HCG, LIP, CP, TROPI, DIME #### [facility] [address] [facility] [place] [address] [employer] Tender: Jeremie Gross DO WBC (Bld) [#/Vol] 9.2 10*3/uL Normal 4.5-13.5 [facility] Comment on above: Performed By: #### C DP, HCG, LIP, CP, TROPI, DIME #### [facility] [address] [facility] [place] [address] [employer] Tender: Jeremie Gross DO Abs.Imm.Granulocyte NOT REPORTED Normal 0.00-0.[address] [facility] Comment on above: Performed By: #### C DP, HCG, LIP, CP, TROPI, DIME #### [facility] [address] [facility] [place] [address] [employer] Tender: Jeremie Gross DO Auto Diff Performed NOT REPORTED Normal [facility] Comment on above: Performed By: #### C DP, HCG, LIP, CP, TROPI, DIME #### [facility] [address] [employer] Tender: Jeremie Gross DO NRBC Automated NOT REPORTED Normal [facility] Comment on above: Performed By: #### C DP, HCG, LIP, CP, TROPI, DIME #### [facility] [address] [employer] Tender: Jeremie Gross DO Comp Metabolic Profon 2018 Bilirubin Ql (U) <0.15 Low 0.3-1.2 [facility] Comment on above: Performed By: #### C DP, HCG, LIP, CP, TROPI, DIME #### [facility] [address] [facility] [place] [address] [employer] Tender: Jeremie Gross DO (cont.) Normal [facility] Comment on above: Result Comment: Aver age GFR for <20 years old not available. Chronic Kidney Disease: <60 mL/min/1.73sq m Kidney failure: <15 mL/min/1.73sq m eGFR calculated using average adult body mass. Additional eGFR calculator available at: http://www.[employer].Cap[employer]/multiple_crcl_2012.htm Performed By: #### C DP, HCG, LIP, CP, TROPI, DIME #### [facility] [address] [facility] [place] [address] [employer] Tender: Jeremie Gross DO Albumin [Mass/Vol] 4.3 g/dL Normal 3.5-5.2 [facility] Comment on above: Performed By: #### C DP, HCG, LIP, CP, TROPI, DIME #### [facility] [address] [facility] [place] [address] [employer] Tender: Jeremie Gross DO Alkaline Phos 86 U/L Normal 35-104 [facility] Comment on above: Performed By: #### C DP, HCG, LIP, CP, TROPI, DIME #### [facility] [address] [facility] [place] [address] [employer] Tender: Jeremie Gross DO ALT [Catalytic activity/Vol] 9 U/L Normal 5-33 [facility] Comment on above: Performed By: #### C DP, HCG, LIP, CP, TROPI, DIME #### [facility] [address] [facility] [place] [address] [employer] Tender: Jeremie Gross DO Anion gap [Moles/Vol] 11 mmol/L Normal 9-[address] [facility] Comment on above: Performed By: #### C DP, HCG, LIP, CP, TROPI, DIME #### [facility] [address] [facility] [address] [employer] Tender: Jeremie Gross DO AST [Catalytic activity/Vol] 12 U/L Normal <32 [facility] Comment on above: Performed By: #### C DP, HCG, LIP, CP, TROPI, DIME #### [facility] [address] [place] [address] [employer] Tender: Jeremie Gross DO Calcium [Mass/Vol] 9.3 mg/dL Normal 8.6-10.4 [facility] Comment on above: Performed By: #### C DP, HCG, LIP, CP, TROPI, DIME #### [facility] [address] [place] [address] [employer] Tender: Jeremie Gross DO Chloride [Moles/Vol] 104 mmol/L Normal 98-107 [facility] Comment on above: Performed By: #### C DP, HCG, LIP, CP, TROPI, DIME #### [facility] [address] [place] [address] [employer] Tender: Jeremie Gross DO CO2 [Moles/Vol] 25 mmol/L Normal 20-31 [facility] Comment on above: Performed By: #### C DP, HCG, LIP, CP, TROPI, DIME #### [facility] [address] [place] [address] [employer] Tender: Jeremie Gross DO Creatinine [Mass/Vol] 0.53 mg/dL Normal 0.50-0.[address] [facility] Comment on above: Performed By: #### C DP, HCG, LIP, CP, TROPI, DIME #### [facility] [address] [facility] [address] [employer] Tender: Jeremie Gross DO GFR,non Amer Pediatric GFR requires additional information. Refer to NKDEP website for Normal >60 [facility] Comment on above: Result Comment: calc ulator. Performed By: #### C DP, HCG, LIP, CP, TROPI, DIME #### [facility] [address] [place] [address] [employer] Machine Tender: Jeremie Gross DO Glucose [Mass/Vol] 86 mg/dL Normal 70-99 [facility] Comment on above: Performed By: #### C DP, HCG, LIP, CP, TROPI, DIME #### [facility] [address] [place] [address] [employer] Tender: Jeremie Gross DO Potassium [Moles/Vol] 3.7 mmol/L Normal 3.7-5.[address] [facility] Comment on above: Performed By: #### C DP, HCG, LIP, CP, TROPI, DIME #### [facility] [address] [place] [address] [employer] Tender: Jeremie Gross DO Protein [Mass/Vol] 7.4 g/dL Normal 6.4-8.3 [facility] Comment on above: Performed By: #### C DP, HCG, LIP, CP, TROPI, DIME #### [facility] [address] [place] [address] [employer] Tender: Jeremie Gross DO Sodium [Moles/Vol] 140 mmol/L Normal 135-144 [facility] Comment on above: Performed By: #### C DP, HCG, LIP, CP, TROPI, DIME #### [facility] [address] [employer] Tender: Jeremie Gross DO Urea nitrogen [Mass/Vol] 18 mg/dL Normal 6-20 [facility] Comment on above: Performed By: #### C DP, HCG, LIP, CP, TROPI, DIME #### [facility] [address] [place] [address] [employer] Tender: Jeremie Gross DO GFR, Amer NOT REPORTED Normal >60 [facility] Comment on above: Performed By: #### C DP, HCG, LIP, CP, TROPI, DIME #### [facility] [address] [facility] [address] [employer] Tender: Jeremie Gross DO Staging: NOT REPORTED Normal [facility] Comment on above: Performed By: #### C DP, HCG, LIP, CP, TROPI, DIME #### [facility] [address] [facility]. [place], [place] [id number] [employer] Tender: Jeremie Gross DO D-Dimer Teston 01-08-2019 D-Dimer Test 0.34 mg/L FEU Normal 0.00-0.59 [facility] Comment on above: Result Comment: When [...] DP, HCG, LIP, CP, TROPI, DIME #### [facility] [address] [place] [address] [employer] Machine Tender: Jeremie Gross DO HCG Screen, Bloodon 01-09-20 19 HCG Qn Negative Normal NEG [facility] Comment on above: Result Comment: Spec [...] DP, HCG, LIP, CP, TROPI, DIME #### [facility] [address] [facility] [place] [address] [employer] Tender: Jeremie Gross DO Lipaseon 01-08-2019 Lipase [Catalytic activity/Vol] 28 U/L Normal 13-60 [facility] Comment on above: Performed By: #### C DP, HCG, LIP, CP, TROPI, DIME #### [facility] [address] [facility] [address] [employer] Tender: Jeremie Gross DO Troponinon 01-08-2019 Troponin I.cardiac [Mass/Vol] ng/mL Normal 0-14 [facility] Comment on above: Result Comment: High Sensitivity Troponin values cannot be compared with other Troponin methodologies. Patients with high levels of Biotin oral intake (i.e >5mg/day) may have falsely decreased Troponin levels. Samples collected within 8 hours of biotin intake may require additional information for diagnosis. Performed By: #### U HCG, UAX #### [facility] [address] [facility] [address] [employer] Tender: Jeremie Gross DO Troponin I.cardiac [Mass/Vol] NOT REPORTED Normal <0.03 [facility] Comment on above: Performed By: #### U HCG, UAX #### [facility] [address] [facility] [address] [employer] Machine Tender: Jeremie Gross DO Performed By: #### C DP, HCG, LIP, CP, TROPI, DIME #### [facility] [address] [place] [address] [employer] Tender: Jeremie Gross DO Troponin I.cardiac [Mass/Vol] ng/mL Normal 0-14 [facility] Comment on above: Result Comment: High Sensitivity Troponin values cannot be compared with other Troponin methodologies. Patients with high levels of Biotin oral intake (i.e >5mg/day) may have falsely decreased Troponin levels. Samples collected within 8 hours of biotin intake may require additional information for diagnosis. Performed By: #### C DP, HCG, LIP, CP, TROPI, DIME #### [facility] [address] [place] [address] [employer] Machine Tender: Jeremie Gross DO UA w/Reflex Cultureon 2018 Acetoacetic Acid,Ur Negative Normal NEG [facility] Comment on above: Performed By: #### U HCG, UAX #### [facility] [address] [place] [address]. [place] [address] [employer] Machine Tender: Jeremie Gross DO Bilirubin, SemiQt,Ur Negative Normal NEG [facility] Comment on above: Performed By: #### U HCG, UAX #### [facility] [address] [place] [address] [employer] Tender: Jeremie Gross DO Color (U) YELLOW Normal YEL [facility] Comment on above: Performed By: #### U HCG, UAX #### [facility] [address] [place] [address] [employer] Tender: Jeremie Gross DO Glucose Ql (U) Negative Normal NEG [facility] Comment on above: Performed By: #### U HCG, UAX #### [facility] [address] [place] [address] [employer] Tender: Jeremie Gross DO Hemoglobin, Ur Negative Normal NEG [facility] Comment on above: Performed By: #### U HCG, UAX #### [facility] [address] [place] [address] [employer] Tender: Jeremie Gross DO Leukocyte esterase Test strip Ql (U) Negative Normal NEG [facility] Comment on above: Performed By: #### U HCG, UAX #### [facility] [address] [place] [address] [employer] Tender: Jeremie Gross DO Nitrite,Ur Negative Normal NEG [facility] Comment on above: Performed By: #### U HCG, UAX #### [facility] [address] [place] [address] [employer] Tender: Jeremie Gross DO pH (U) 6.5 [pH] Normal 5.0-8.0 [facility] Comment on above: Performed By: #### U HCG, UAX #### [facility] [address] [place] [address] [employer] Tender: Jeremie Gross DO Protein Ql (U) Negative Normal NEG [facility] Comment on above: Performed By: #### U HCG, UAX #### [facility] [address] [place] [address] [employer] Tender: Jeremie Gross DO Specific gravity (U) [Rel density] 1.024 Normal 1.000-1.030 [facility] Comment on above: Performed By: #### U HCG, UAX #### [facility] [address] [place] [address] [employer] Tender: Jeremie Gross DO Turbidity CLOUDY Abnormal CLEAR [facility] Comment on above: Performed By: #### U HCG, UAX #### [facility] [place] [address] [employer] Machine Tender: Jeremie Gross DO Urobilinogen,Ur Normal Normal NORM [facility] Comment on above: Performed By: #### U HCG, UAX #### [facility] [address] [place] [address] [employer] Tender: Jeremie Gross DO Comment NOT REPORTED Normal [facility] Comment on above: Performed By: #### U HCG, UAX #### [facility] [address] [place] [address] [employer] Tender: Jeremie Gross DO Urinalysis,Microon 9 ----- Normal [facility] Comment on above: Performed By: #### U HCG, UAX #### [facility] [address] [place] [address] [employer] Tender: Jeremie Gross DO Bacteria LM.HPF (Urine sed) [#/Area] FEW Abnormal NONE [facility] Comment on above: Performed By: #### U HCG, UAX #### [facility] [address] [place] [address] [employer] Tender: Jeremie Gross DO Epithelial cells LM.HPF (Urine sed) [#/Area] 5 TO 10 Normal [facility] Comment on above: Performed By: #### U HCG, UAX #### [facility] [address] [place] [address] [employer] Tender: Jeremie Gross DO RBC (U) [#/Vol] 0 TO 2 Normal [facility] Comment on above: Performed By: #### U HCG, UAX #### [facility] [address] [place] [address] [employer] Machine Tender: Jeremie Gross DO WBC (U) [#/Vol] 0 TO 2 Normal [facility] Comment on above: Performed By: #### U HCG, UAX #### [facility] [address] [place] [address] [employer] Tender: Jeremie Gross DO Amorphous sediment LM Ql (Urine sed) NOT REPORTED Normal NONE [facility] Comment on above: Performed By: #### U HCG, UAX #### [facility] [address] [place] [address] [employer] Machine Tender: Jeremie Gross DO Casts LM.LPF (Urine sed) [#/Area] NOT REPORTED Normal [facility] Comment on above: Performed By: #### U HCG, UAX #### [facility] [address] [place] [address] [employer] Machine Tender: Jeremie Gross DO Crystals LM Nom (Urine sed) NOT REPORTED Normal [facility] Comment on above: Performed By: #### U HCG, UAX #### [facility] [address] [place] [address] [employer] Machine Tender: Jeremie Gross DO Epithelial, Renal NOT REPORTED Normal 0 [facility] Comment on above: Performed By: #### U HCG, UAX #### [facility] [address] [place] [address] [employer] Tender: Jeremie Gross DO Mucus Strands NOT REPORTED Normal NONE [facility] Comment on above: Performed By: #### U HCG, UAX #### [facility] [address] [place] [address] [employer] Tender: Jeremie Gross DO Other Observations NOT REPORTED Normal NREQ [facility] Comment on above: Performed By: #### U HCG, UAX #### [facility] [address] [facility] [address] [employer] Machine Tender: Jeremie Gross DO Trichomonas NOT REPORTED Normal NONE [facility] Comment on above: Performed By: #### U HCG, UAX #### [facility] [address] [facility] [address] [employer] Machine Tender: Jeremie Gross DO Yeast LM Ql (Urine sed) NOT REPORTED Normal NONE [facility] Comment on above: Performed By: #### U HCG, UAX #### [facility] [address] [facility] [address] [employer] Machine Tender: Jeremie Gross DO XR CHEST (2 VW)on [...] Levi Munroe MD 01/07/19 Final result Normal [facility] CBC Auto Differentialon 12-11 Basophils (Bld) [#/Vol] 0.10 10*3/uL [place] Basophils/100 WBC (Bld) 1 % 0 - 2 % [place] Differential Type NOT REPORTED [place] Eosinophils (Bld) [#/Vol] 0.30 10*3/uL [place] Eosinophils/100 WBC (Bld) 3 % 0 - 4 % [place] Erythrocyte distribution width (RBC) [Ratio] 12.9 % 11.5 - 14.9 % [place] Hematocrit (Bld) [Volume fraction] 43.0 % 36 - 46 % [place] Hemoglobin (Bld) [Mass/Vol] 14.6 g/dL 12 - 16 g/dL [place] Lymphocytes (Bld) [#/Vol] 3.10 10*3/uL [place] Lymphocytes/100 WBC (Bld) 34 % 25 - 45 % [place] MCH (RBC) [Entitic mass] 30.9 pg 26 - 34 pg [place] MCHC (RBC) [Mass/Vol] 33.9 g/dL 31 - 37 g/dL [place] MCV (RBC) [Entitic vol] 91.1 fL 80 - 100 fL [place] Monocytes (Bld) [#/Vol] 0.70 10*3/uL [place] Monocytes/100 WBC (Bld) 8 % 2 - 8 % [place] Platelet mean volume (Bld) [Entitic vol] 7.8 fL 6 - 12 fL [place] Platelets (Bld) [#/Vol] 245 10*3/uL [place] RBC (Bld) [#/Vol] 4.71 10*6/uL 4 - 5.2 m/uL [place] Segmented neutrophils/100 WBC (Bld) 54 % 34 - 64 % [place] Segs Absolute 5.00 [place] WBC (Bld) [#/Vol] 9.2 10*3/uL [place] WBC (Bld) [#/Vol] NOT REPORTED per 100 WBC [place] CBC with Diffon 01-07-2019 Immature granulocytes (Bld) [#/Vol] NOT REPORTED Normal 0 [place] Comment on above: Performed By: #### C DP, HCG, LIP, CP, TROPI, DIME #### [facility] [address] [place] [address] [employer] Machine Tender: Jeremie Gross DO Platelets (Bld) [#/Vol] NOT REPORTED Normal [place] Comment on above: Performed By: #### C DP, HCG, LIP, CP, TROPI, DIME #### [facility] [address] [place] [address] [employer] Machine Tender: Jeremie Gross DO RBC morphology finding Nom (Bld) NOT REPORTED Normal [place] Comment on above: Performed By: #### C DP, HCG, LIP, CP, TROPI, DIME #### [facility] [address] [place] [address] [employer] Machine Tender: Jeremie Gross DO WBC Morphology NOT REPORTED Normal [place] Comment on above: Performed By: #### C DP, HCG, LIP, CP, TROPI, DIME #### [facility] [address] [place] [address] [employer] Machine Tender: Jeremie Gross DO Comp Metabolic Profon 2018 Albumin/Globulin [Mass ratio] NOT REPORTED Normal 1.0-2.5 [place] Comment on above: Performed By: #### C DP, HCG, LIP, CP, TROPI, DIME #### [facility] [address] [place] [address] [employer] Machine Tender: Jeremie Gross DO Bun/Cre Ratio NOT REPORTED Normal 9-20 [place] Comment on above: Performed By: #### C DP, HCG, LIP, CP, TROPI, DIME #### [facility] [address] [place] [address] [employer] Machine Tender: Jeremie Gross DO Comprehensive Metabolic Pane eric 01-07-2019 Albumin [Mass/Vol] 4.3 g/dL 3.5 - 5.2 g/dL [place] ALP [Catalytic activity/Vol] 86 U/L 35 - 104 U/L [place] ALT [Catalytic activity/Vol] 9 U/L 5 - 33 U/L [place] Anion gap [Moles/Vol] 11 mmol/L 9 - 17 mmol/L [place] AST [Catalytic activity/Vol] 12 U/L <32 [place] Bilirubin Ql (U) <0.15 Low 0.3 - 1.2 mg/dL [place] Calcium [Mass/Vol] 9.3 mg/dL 8.6 - 10. 4 mg/dL [place] Chloride [Moles/Vol] 104 mmol/L 98 - 10 7 mmol/L [place] CO2 [Moles/Vol] 25 mmol/L 20 - 31 mmol/L [place] Creatinine [Mass/Vol] 0.53 mg/dL 0.5 - 0.9 mg/dL [place] GFR NOT REPORTED >60 mL/min [place] GFR Non- Pediatric GFR requires additional information. Refer to NKDEP website for calculator. >60 mL/min [place] GFR/1.73 sq M predicted among non-blacks MDRD (S/P/Bld) [Vol rate/Area] [place] Comment on above: Average GFR for <20 years old not available. Chronic Kidney Disease: <60 mL/min/1.73sq m Kidney failure: <15 mL/min/1.73sq m eGFR calculated using average adult body mass. Additional eGFR calculator available at: http://www.[employer]/multiple_crcl_2012.htm GFR/1.73 sq M predicted among non-blacks MDRD (S/P/Bld) [Vol rate/Area] NOT REPORTED [place] Glucose [Mass/Vol] 86 mg/dL 70 - 99 mg/dL [place] Interpretation and review of laboratory results Abnormal [place] Potassium [Moles/Vol] 3.7 mmol/L 3.7 - 5.3 mmol/L [place] Protein [Mass/Vol] 7.4 g/dL 6.4 - 8.3 g/dL [place] Sodium [Moles/Vol] 140 mmol/L 135 - 144 mmol/L [place] Urea nitrogen [Mass/Vol] 18 mg/dL 6 - 20 mg/dL [place] D-Dimer, Quantitativeon 12-11 D-Dimer, Quant 0.34 [place] Comment on above: When combined with [...] Bloodon 01-08-20 19 hCG Qual Negative NEGATIVE [place] Comment on above: Specimens with hCG [...] activity/Vol] 28 U/L 13 - 60 U/L [place] Microscopic Urinalysison Amorphous, UA NOT REPORTED None [place] Bacteria, UA FEW Abnormal None [place] Casts UA NOT REPORTED /LPF [place] Crystals UA NOT REPORTED None /HPF [place] Epithelial Cells UA 5 TO 10 /HPF [place] Interpretation and review of laboratory results Abnormal [place] Mucus, UA NOT REPORTED None [place] Other Observations UA NOT REPORTED NOT REQ. [place] RBC (U) [#/Vol] 0 TO 2 /HPF [place] Renal Epithelial, Urine NOT REPORTED 0 /HPF [place] Trichomonas, UA NOT REPORTED None [place] WBC, UA 0 TO 2 /HPF [place] Yeast, UA NOT REPORTED None [place], [place] - [place] Troponinon 01-07-2019 Troponin I.cardiac [Mass/Vol] NOT REPORTED [place] Troponin T.cardiac [Mass/Vol] NOT REPORTED <0.03 ng/mL [place] Troponin, High Sensitivity <6 0 - 14 ng/L [place] Comment on above: High Sensitivity Troponin values cannot be compared with other Troponin methodologies. Patients with high levels of Biotin oral intake (i.e >5mg/day) may have falsely decreased Troponin levels. Samples collected within 8 hours of biotin intake may require additional information for diagnosis. Troponin I.cardiac [Mass/Vol] NOT REPORTED [place] Troponin T.cardiac [Mass/Vol] NOT REPORTED <0.03 ng/mL [place] Troponin, High Sensitivity <6 0 - 14 ng/L [place] Comment on above: High Sensitivity Troponin values cannot be compared with other Troponin methodologies. Patients with high levels of Biotin oral intake (i.e >5mg/day) may have falsely decreased Troponin levels. Samples collected within 8 hours of biotin intake may require additional information for diagnosis. Urinalysis Reflex to Culture on 01-07-2019 Bilirubin Urine Negative NEGATIVE [place], [place] Color, UA YELLOW YELLOW [place], [place] Glucose, Ur Negative NEGATIVE [place] Interpretation and review of laboratory results Abnormal [place] Ketones Ql (U) Negative NEGATIVE [place] Leukocyte esterase Test strip Ql (U) Negative NEGATIVE [place] Nitrite, Urine Negative NEGATIVE [place] pH, UA 6.5 [place] Protein (U) [Mass/Vol] Negative NEGATIVE [place], [place] Specific [place], UA 1.024 [place], [place] Turbidity UA CLOUDY Abnormal CLEAR [place] Urinalysis Comments NOT REPORTED [place] Urine Hgb Negative NEGATIVE [place] Urobilinogen, Urine Normal Normal [place] XR CHEST STANDARD (2 VW)on 03-09-2018 [...] The osseous structures are without acute process. [place], [place] Julián, Mhpn Incoming Radiant Results From [employer] - 01/07/2019 10:07 PM EST EXAMINATION: TWO [...] without acute process. IMPRESSION: No acute process. [place], [place] No acute process. [facility] [place], [place] HCG, ,Urineon 12-03 Beta HCG ( test) Ql (U) Negative Normal NEG [facility] Comment on above: Result Comment: Spec [...] Performed By: #### U HCG, UAX #### [facility] [address] [employer]anner Machine Tender: Jeremie Gross DO Beta HCG ( test) Ql (U) Negative NEGATIVE [place] Comment on above: Specimens with hCG [...] Cultureon 2018 Acetoacetic Acid,Ur Negative Normal NEG [facility] Comment on above: Performed By: #### U HCG, UAX #### [facility] [address] [place] [address]. [place] [address] [employer] Machine Tender: Jeremie Gross DO Bilirubin, SemiQt,Ur Negative Normal NEG [facility] Comment on above: Performed By: #### U HCG, UAX #### [facility] [address] [place] [address]. [place] [address] [employer] Machine Tender: Jeremie Gross DO Color (U) YELLOW Normal YEL [facility] Comment on above: Performed By: #### U HCG, UAX #### [facility] [address] [place] [address]. [place] [address] [employer] Machine Tender: Jeremie Gross DO Comment Microscopic exam not performed based on chemical results unless requested in Normal [facility] Comment on above: Result Comment: orig inal order. Performed By: #### U HCG, UAX #### [facility] [address] [place] [address]. [place] [address] [employer] Machine Tender: Jeremie Gross DO Glucose Ql (U) Negative Normal NEG [facility] Comment on above: Performed By: #### U HCG, UAX #### [facility] [address] [place] [address] [employer]anner Machine Tender: Jeremie Gross DO Hemoglobin, Ur Negative Normal NEG [facility] Comment on above: Performed By: #### U HCG, UAX #### [facility] [address] [place] [address] [employer] Tender: Jeremie Gross DO Nitrite,Ur Negative Normal NEG [facility] Comment on above: Performed By: #### U HCG, UAX #### [facility] [address] [place] [address] [employer] Tender: Jeremie Gross DO pH (U) 8.5 [pH] High 5.0-8.0 [facility] Comment on above: Performed By: #### U HCG, UAX #### [facility] [address] [place] [address] [employer] Machine Tender: Jeremie Gross DO Protein Ql (U) Negative Normal NEG [facility] Comment on above: Performed By: #### U HCG, UAX #### [facility] [address] [place] [address] [employer] T[employer]: Jeremie Gross DO Specific gravity (U) [Rel density] 1.018 Normal 1.000-1.030 [facility] Comment on above: Performed By: #### U HCG, UAX #### [facility] [address] [place] [address] [employer] T[employer]: Jeremie Gross DO Turbidity CLEAR Normal CLEAR [facility] Comment on above: Performed By: #### U HCG, UAX #### [facility] [address] [place] [address] [employer] Tender: Jeremie Gross DO Urobilinogen,Ur Normal Normal NORM [facility] Comment on above: Performed By: #### U HCG, UAX #### [facility] [address] [facility] [address] [employer] Machine Tender: Jeremie Gross DO Leukocyte esterase Test strip Ql (U) Negative Normal NEG [place] Comment on above: Performed By: #### U HCG, UAX #### [facility] [address] [facility] [address] [employer] Machine Tender: Jeremie Gross DO Urinalysis Reflex to Culture on 2018 Bilirubin Urine Negative NEGATIVE [facility], [place] Color, UA YELLOW YELLOW [place] Glucose, Ur Negative NEGATIVE [place] Interpretation and review of laboratory results Abnormal [place] Ketones Ql (U) Negative NEGATIVE [facility], [place] Nitrite, Urine Negative NEGATIVE [facility], [place] pH, UA 8.5 [place] Protein (U) [Mass/Vol] Negative NEGATIVE [place], [place] Specific [place], UA 1.018 [place], [place] Turbidity UA CLEAR [place] Urinalysis Comments Microscopic exam not performed based on chemical results unless requested in original order. [place] Urine Hgb Negative NEGATIVE [place] Urobilinogen, Urine Normal Normal [place] XR ANKLE RIGHT (MIN 3 VIEWS) [...] Damian Ochoa MD 09/12/18 Final result Normal [facility] Vital Signs Date Time Vital Sign Value Performing Clinician Facility 08-23-2024 13:19-0400 Body mass index (BMI) [Ratio] 29.94 kg/m2 Eusebio Carole DO Work Phone: [facility] 08-23-2024 13:19-0400 Body weight 76.66 kg Eusebio Carole DO Work Phone: [facility] 08-23-2024 13:19-0400 Diastolic blood pressure 60 mm[Hg] Eusebio Carole DO Work Phone: [facility] 08-23-2024 13:19-0400 Systolic blood pressure 102 mm[Hg] Eusebio Carole DO Work Phone: [facility] 08-17-2024 09:59-0400 Body mass index (BMI) [Ratio] 28.7 kg/m2 Eusebio Carole DO Work Phone: [facility] 08-17-2024 09:59-0400 Body weight 73.48 kg Eusebio Carole DO Work Phone: [facility] 08-17-2024 09:59-0400 Diastolic blood pressure 60 mm[Hg] Eusebio Carole DO Work Phone: [facility] 08-17-2024 09:59-0400 Systolic blood pressure 108 mm[Hg] Eusebio Carole DO Work Phone: [facility] 08-09-2024 08:36-0400 Body mass index (BMI) [Ratio] 29.01 kg/m2 Radha Diego NP Work Phone: [facility] 08-09-2024 08:36-0400 Body weight 74.28 kg Radha Diego NP Work Phone: [facility] 08-09-2024 08:36-0400 Diastolic blood pressure 58 mm[Hg] Radha Avendanoerly CASING MACHINE OPERATOR Work Phone: [facility] 08-09-2024 08:36-0400 Systolic blood pressure 110 mm[Hg] Radha Paniagualy CASING MACHINE OPERATOR Work Phone: [facility] 07-26-2024 11:21-0400 Body mass index (BMI) [Ratio] 28.61 kg/m2 Eusebio Carole DO Work Phone: [facility] 07-26-2024 11:21-0400 Body weight 73.26 kg Eusebio Carole DO Work Phone: [facility] 07-26-2024 11:21-0400 Diastolic blood pressure 62 mm[Hg] Eusebio Carole DO Work Phone: [facility] 07-26-2024 11:21-0400 Systolic blood pressure 102 mm[Hg] Eusebio Carole DO Work Phone: [facility] 07-13-2024 10:50-0400 Body mass index (BMI) [Ratio] 27.81 kg/m2 Eusebio Carole DO Work Phone: [facility] 07-13-2024 10:50-0400 Body weight 71.22 kg Eusebio Carole DO Work Phone: [facility] 07-13-2024 10:50-0400 Diastolic blood pressure 68 mm[Hg] Eusebio Carole DO Work Phone: [facility] 07-13-2024 10:50-0400 Systolic blood pressure 110 mm[Hg] Eusebio Carole DO Work Phone: [facility] 06-28-2024 10:14-0400 Body mass index (BMI) [Ratio] 28.3 kg/m2 Radha GARCIA Work Phone: [facility] 06-28-2024 10:14-0400 Body weight 72.46 kg Radha GARCIA Work Phone: [facility] 06-28-2024 10:14-0400 Diastolic blood pressure 60 mm[Hg] Radha GARCIA Work Phone: [facility] 06-28-2024 10:14-0400 Systolic blood pressure 110 mm[Hg] Radha GARCIA Work Phone: [facility] 06-13-2024 12:02-0400 Body mass index (BMI) [Ratio] 27.99 kg/m2 Eusebio Carole DO Work Phone: [facility] 06-13-2024 12:02-0400 Body weight 71.67 kg Eusebio Carole DO Work Phone: [facility] 06-13-2024 12:02-0400 Diastolic blood pressure 74 mm[Hg] Eusebio Carole DO Work Phone: [facility] 06-13-2024 12:02-0400 Systolic blood pressure 122 mm[Hg] Eusebio Carole DO Work Phone: [facility] 05-16-2024 09:43-0400 Body mass index (BMI) [Ratio] 25.86 kg/m2 Eusebio Carole DO Work Phone: [facility] 05-16-2024 09:43-0400 Body weight 66.22 kg Eusebio Carole DO Work Phone: [facility] 05-16-2024 09:43-0400 Diastolic blood pressure 70 mm[Hg] Eusebio Carole DO Work Phone: [facility] 05-16-2024 09:43-0400 Systolic blood pressure 120 mm[Hg] Eusebio Carole DO Work Phone: [facility] 04-17-2024 13:30-0400 Body mass index (BMI) [Ratio] 23.52 kg/m2 Radha GARCIA Work Phone: [facility] 04-17-2024 13:30-0400 Body weight 60.24 kg Radha GARCIA Work Phone: [facility] 04-17-2024 13:30-0400 Diastolic blood pressure 60 mm[Hg] Radha GARCIA Work Phone: [facility] 04-17-2024 13:30-0400 Systolic blood pressure 100 mm[Hg] Radha Avila PA Work Phone: [facility] 03-22-2024 11:21-0500 Body mass index (BMI) [Ratio] 22.34 kg/m2 Radha Austin PA Work Phone: [facility] 03-22-2024 11:21-0500 Body weight 57.21 kg Radha Avila PA Work Phone: [facility] 03-22-2024 11:21-0500 Diastolic blood pressure 74 mm[Hg] Radha Avila PA Work Phone: [facility] 03-22-2024 11:21-0500 Systolic blood pressure 110 mm[Hg] Radha Avila PA Work Phone: [facility] 03-09-2023 14:31-0500 Body mass index (BMI) [Ratio] 25.51 kg/m2 Eusebio Carole DO Work Phone: [facility] 03-09-2023 14:31-0500 Body weight 65.32 kg Eusebio Carole DO Work Phone: [facility] 03-09-2023 14:31-0500 Diastolic blood pressure 72 mm[Hg] Eusebio Carole DO Work Phone: [facility] 03-09-2023 14:31-0500 Systolic blood pressure 120 mm[Hg] Eusebio Carole DO Work Phone: [facility] 10-05-2021 02:05-0400 Body weight 80.[address] EUSEBIO LAM . [facility] Comment on above: Performed By: #### AFPMAT #### [facility] [address] [place] [address] Dr. Qi Benedict 06-01-2019 14:51-0400 BMI (Body Mass Index) 31.35 kg/m2 [place], [place] 06-01-2019 14:51-0400 Body Temperature 99 [degF] [facility] [place] 06-01-2019 14:51-0400 Body weight 80.29 kg [facility] , [place] 06-01-2019 14:51-0400 Height 160 cm [facility] , [place] 06-01-2019 14:51-0400 Pulse (Heart Rate) 83 /min [facility], [place] 06-01-2019 14:51-0400 Pulse Oximetry 99 % [facility] , [place] 06-01-2019 14:51-0400 Respiratory Rate 16 /min [facility], [place] 05-24-2019 23:36-0400 BMI (Body Mass Index) 32.01 kg/m2 [facility], [place] 05-24-2019 23:36-0400 Body Temperature 98.6 [degF] [facility], [place] 05-24-2019 23:36-0400 Body weight 79.38 kg [facility] , [place] 05-24-2019 23:36-0400 BP Diastolic 86 mm[Hg] [facility] , [place] 05-24-2019 23:36-0400 BP Systolic 135 mm[Hg] [facility] , [place] 05-24-2019 23:36-0400 Height 157.5 cm [place], [place] 05-24-2019 23:36-0400 Pulse (Heart Rate) 98 /min [facility], [place] 05-24-2019 23:36-0400 Pulse Oximetry 99 % [facility] , [place] 05-24-2019 23:36-0400 Respiratory Rate 20 /min [facility], [place] 01-07-2019 23:25-0500 Body Temperature 98.6 [degF] [facility], [place] 01-07-2019 23:25-0500 BP Diastolic 78 mm[Hg] [facility] , [place] 01-07-2019 23:25-0500 BP Systolic 124 mm[Hg] [facility] , [place] 01-07-2019 23:25-0500 Pulse (Heart Rate) 77 /min [facility] [place] 01-07-2019 23:25-0500 Pulse Oximetry 99 % [facility] [place] 01-07-2019 23:25-0500 Respiratory Rate 16 /min [facility] [place] 01-07-2019 21:09-0500 Height 160 cm Ann-Marie [facility] , [place] 2018 17:25-0400 BMI (Body Mass Index) 25.61 kg/m2 [place] [facility], [place] 2018 17:25-0400 Body Temperature 98.1 [degF] [place], [place] 2018 17:25-0400 Body weight 63.5 kg [place], [place] 2018 17:25-0400 BP Diastolic 64 mm[Hg] [facility] , [place] 2018 17:25-0400 BP Systolic 92 mm[Hg] [facility] , [place] 2018 17:25-0400 Height 157.5 cm [place], [place] 2018 17:25-0400 Pulse (Heart Rate) 80 /min [place], [place] 2018 17:25-0400 Pulse Oximetry 98 % [place], [place] 2018 17:25-0400 Respiratory Rate 16 /min [place] Encounters Encounter Date Encounter Type Care Provider Facility Start: 08-24-2024 End: 08-24-2024 Clinisync Result Encounter Eusebio Carole DO Work Phone: [facility] Unsolicited Start: 08-24-2024 End: 08-24-2024 Clinisync Result Encounter Eusebio Carole DO Work Phone: [facility] Unsolicited Start: 08-23-2024 End: 08-23-2024 Bamboo flowsheet Eusebio Carole DO Work Phone: [facility] Start: 08-23-2024 End: 08-23-2024 Bamboo flowsheet Eusebio Carole DO Work Phone: [facility] Start: 08-23-2024 End: 08-23-2024 Office outpatient visit 15 minutes Eusebio Carole DO Work Phone: [facility] Comment on above: Third trimester preg cindi ([facility]); 35 weeks gestation of ([facility] Start: 08-22-2024 End: 08-22-2024 Clinisync Result Encounter Eusebio Carole DO Work Phone: [facility] Unsolicited Start: 08-22-2024 End: 08-22-2024 Clinisync Result Encounter Eusebio Carole DO Work Phone: [facility] Unsolicited Start: 08-17-2024 End: 08-17-2024 Bamboo flowsheet Eusebio [...] Comment on above: Third trimester preg cindi ([facility]); 35 weeks gestation of ([facility]) Start: 08-17-2024 End: 08-17-2024 ambulatory EUSEBIO CAROLE Not Available Start: 08-09-2024 End: 08-09-2024 Bamboo flowsheet Radha Diego CASING MACHINE OPERATOR Work Phone: [facility] Start: 08-09-2024 End: 08-09-2024 Bamboo flowsheet Radha Diego CASING MACHINE OPERATOR Work Phone: [facility] Start: 08-09-2024 End: 08-09-2024 Clinisync Result Encounter Eusebio Carole DO Work Phone: [facility] Unsolicited Start: 08-09-2024 End: 08-09-2024 Office outpatient visit 15 minutes Radha Diego CASING MACHINE OPERATOR Work Phone: [facility] Comment on above: Third trimester preg cindi ([facility]); 33 weeks gestation of ([facility]) Start: 08-09-2024 End: 08-09-2024 ambulatory RADHA [...] Comment on above: Third trimester preg cindi ([facility]); 31 weeks gestation of ([facility]) Start: 07-13-2024 End: 07-13-2024 Bamboo flowsheet [...] visit 15 minutes Radha GARCIA Work Phone: [facility] Comment on above: Second trimester pre gnancy; 27 weeks gestation of Start: 06-28-2024 End: 06-28-2024 ambulatory RADHA AVILA Not Available Start: 06-13-2024 End: 06-13-2024 Bamboo flowsheet Eusebio Carole DO Work Phone: [facility] Start: 06-13-2024 End: 06-13-2024 Bamboo flowsheet Eusebio Carole DO Work Phone: [facility] Start: 06-13-2024 End: 06-13-2024 Office outpatient visit 15 minutes Eusebio Carole DO Work Phone: [facility] Comment on above: Second trimester pre gnancy; 25 weeks gestation of ; H/O delivery, currently ; Vapes nicotine containing substance Start: 06-13-2024 End: 06-13-2024 ambulatory EUSEBIO CAROLE Not Available Start: 05-24-2024 End: 05-24-2024 ambulatory EUSEBIO R CAROLE [facility] Start: 05-16-2024 End: 05-16-2024 Bamboo flowsheet Eusebio Carole DO Work Phone: [facility] Start: 05-16-2024 End: 05-19-2024 Bamboo flowsheet Eusebio Carole DO Work Phone: [facility] Start: 05-16-2024 End: 05-19-2024 Clinisync Result Encounter Eusebio Lam DO Work Phone: [facility] Unsolicited Start: 05-16-2024 End: 05-17-2024 External Result Encounter Eusebio Lam DO Work Phone: [facility] Unsolicited Start: 05-16-2024 End: 05-16-2024 Patient encounter procedure Eusebio Lam DO Work Phone: [facility] Start: 05-16-2024 End: 05-16-2024 Periodic preventive med est patient 18-39 yrs Eusebio Lam DO Work Phone: [facility] Comment on above: 21 weeks gestation o f ; Second trimester ; Diabetes mellitus screening; Well woman exam with routine gynecological exam; Exposure to STD; Vaginal discharge; Nausea Start: 05-16-2024 End: 05-16-2024 ambulatory EUSEBIO RAWLSZIO Not Available Start: 05-08-2024 End: 05-08-2024 ambulatory RADHA AUSTIN Not Available Start: 04-17-2024 End: 04-17-2024 Office [...] Department Unsolicited Start: 02-11-2024 End: 02-11-2024 ambulatory [facility] Start: 02-11-2024 End: 02-11-2024 ambulatory [facility] Start: 01-26-2024 End: 01-26-2024 ambulatory [facility] Start: 01-19-2024 End: 01-19-2024 ambulatory ANN-MARIE ASH [facility] Start: 01-18-2024 End: 01-18-2024 ambulatory [facility] Start: 01-11-2024 End: 01-11-2024 Emergency department patient visit ANN-MARIE ASH MD Facility:[facility] Start: 11-03-2023 End: 11-03-2023 Bamboo flowsheet Eusebio Carole DO Work Phone: [facility] Start: 11-03-2023 End: 11-03-2023 Bamboo flowsheet Eusebio Carole DO Work Phone: [facility] Start: 11-03-2023 End: 11-03-2023 Clinisync Result Encounter Eusebio Carole DO Work Phone: [facility] Unsolicited Start: 11-03-2023 End: 11-03-2023 ambulatory EUSEBIO LAM Not Available Start: 11-03-2023 End: 11-03-2023 Office outpatient visit 15 minutes Eusebio Lam DO Work Phone: [facility] Comment on above: Follow-up encounter involving medication; depression (CMS/HCC); Weight loss Start: 09-01-2023 ambulatory [place] Start: 03-22-2023 End: 03-22-2023 Emergency department patient visit ANN-MARIE Dc ASH [facility] Start: 03-09-2023 End: 03-09-2023 Office outpatient visit 15 minutes Eusebio Lam DO Work Phone: [facility] Comment [...] 06-01-2019 Emergency department patient visit ANN[facility]MARIE Dc [facility] Start: 06-01-2019 End: 06-01-2019 Emergency department patient visit Victorino Sullivan Work Phone: [facility] Comment on above: Sprain of right ankl e, unspecified ligament, initial encounter (Primary Dx); Contusion of back wall of thorax, unspecified laterality, initial encounter Start: 05-25-2019 End: 05-25-2019 Emergency department patient visit ANN-MARIE Dc [facility] Start: 05-24-2019 End: 05-25-2019 Emergency department patient visit Alexandria Siddiqui Work Phone: [facility] Comment on above: Sprain of right ankl e, unspecified ligament, initial encounter (Primary Dx) Start: 05-15-2019 End: 05-16-2019 Patient encounter procedure TRUDY RAMAN [facility] Start: 05-15-2019 End: 05-15-2019 Subsequent hospital visit by physician Ann-Marie HARRELL [facility] Comment on above: Amenorrhea Start: 03-12-2019 End: 03-12-2019 Emergency department patient visit [facility] Start: 01-07-2019 End: 01-08-2019 Emergency department patient visit [facility] Vanda [facility] Start: 01-07-2019 End: 01-08-2019 Emergency department patient visit Ann-Marie Engle Work Phone: [facility] Comment on above: Dyspepsia (Primary D x); Atypical chest pain Start: 2018 End: 2018 Emergency department patient visit [facility] Vanda [facility] Start: 2018 End: 2018 Emergency department patient visit Kosta Lozano Work Phone: [facility] Comment on above: examinatio n or test, negative result (Primary Dx) Start: 09-12-2018 End: 09-12-2018 Emergency department patient visit ANN-MARIE ASH [facility] Procedures Date Procedure Procedure Detail Performing Clinician Start: 08-24-2024 US OB BPP W NON-STRESS Eusebio Carole DO Work Phone: Start: 08-24-2024 US OB GROWTH Eusebio Fazi o DO Work Phone: Start: 08-22-2024 [facility]H UA (CLEAN/CATCH) 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 Eusebio Carole DO Work Phone: Start: 08-17-2024 US OB BPP W NON-STRESS [...] stick/tabl et rgnt non-auto w/o micrscp Radha Austin PA Work Phone: Start: 02-29-2024 BOX TEST Eusebio [...] Radex ankle complete minimum 3 views Victorino J Laurie Work Phone: Start: 06-01-2019 Radex spine thoracic 3 views Victorino J Laurie Work Phone: Start: 06-01-2019 Urine test visual color cmprsn meths Victorino J Laurie Work Phone: Start: 05-25-2019 DURAMEDIC ORTHOPEDIC SUPPLIES TRUDY BEAM Start: 05-25-2019 Radex ankle complete minimum 3 views TRUDY BEAM Start: 05-25-2019 Radex ankle complete minimum 3 views Alexandria Siddiqui Work Phone: Start: 05-15-2019 Gonadotropin chorion ic quantitative TRUDY RAMAN Start: 05-15-2019 Gonadotropin chorion ic quantitative Trudy Raman Work Phone: Start: 03-12-2019 DURAMEDIC ORTHOPED[employer] SUPPLIES ANN-MARIE SLAUGHTEREAN Start: 03-12-2019 Radex shoulder compl ete minimum [...] Start: 2018 Urine test visual color cmprsn perla Alas Work Phone: Start: 2018 Urnls dip stick/tabl et rgnt auto w/o microscopy Ellen Alas Work Phone: Start: 09-12-2018 AIR CAST ANN-MARIE BAJWA Start: 09-12-2018 CRUTCHES ANN-MARIE BAJWA Start: 09-12-2018 Radex ankle complete minimum 3 views ANN-MARIE ASH Plan of Treatment Date Care Activity Detail Author Start: 08-30-2024 End: 08-30-2024 Patient encounter procedure 08/30/2024 11:00 AM EDT Routine [facility] [address] [facility] [address] Eusebio Lam, DO [address] [place] [address] [facility] Start: 08-23-2024 End: 08-23-2025 CULTURE, GROUP B STREP WITH SUSCEPTIBLITY CULTURE, GROUP B STREP WITH SUSCEPTIBLITY Lab Routine Third trimester ([facility]) Expected: 08/23/2024, Expires: 08/23/2025 [facility] Work Phone: Comment on above: Expected: 08/23/2024 , Expires: 08/23/2025 Start: 08-23-2024 End: 08-23-2024 Patient encounter procedure 08/23/2024 1:00 PM EDT Routine [facility] [address] [facility] [address] Eusebio Lam, DO [address] [place] [address] [facility] Start: 08-17-2024 End: 08-17-2024 Patient encounter procedure [facility] Comment on above: Arrived Start: 08-09-2024 End: 08-09-2024 Patient encounter procedure [facility] Comment on above: Arrived Start: 07-26-2024 End: 07-26-2024 Patient encounter procedure 07/26/2024 11:10 AM EDT Routine [facility] [address] [facility] [phone] Eusebio Lam DO [address] [place], [place] [id number] [facility] Start: 07-13-2024 End: 01-12-2025 [...] Procedure [facility] [address] [place] [id number] [facility] Start: 06-28-2024 End: 06-28-2024 Patient encounter procedure 06/28/2024 10:10 AM EDT Routine [facility] [address] [place] [phone] Radha Avila PA [address] [place], [place] [id number] [facility] Start: 06-28-2024 End: 06-28-2024 Professional / ancillary services management 06/28/2024 9:30 AM EDT Ancillary Procedure [facility] [address] [facility] [address] [facility] Start: 06-13-2024 End: 06-13-2024 Patient encounter procedure [facility] Comment on above: Arrived Start: 05-16-2024 End: 05-16-2025 CBC panel - Blood by Automated count CBC Lab Routine Diabetes mellitus screening Expected: 05/16/2024 (Approximate), Expires: 05/16/2025 [facility] Work Phone: Comment on above: Expected: 05/16/2024 (Approximate), Expires: 05/16/2025 Start: 05-16-2024 End: 05-16-2025 Measurement of glucose 1 hour after glucose challenge for glucose tolerance test Glucose tolerance, 1 hour Lab Routine Diabetes mellitus screening Expected: 05/16/2024 (Approximate), Expires: 05/16/2025 [facility] Comment on above: Expected: 05/16/2024 (Approximate), Expires: 05/16/2025 Start: 05-16-2024 End: 05-16-2024 Patient encounter procedure [facility] Comment on above: Arrived Start: 05-08-2024 End: 05-08-2024 Professional / ancillary services management 05/08/2024 9:30 AM EDT Ancillary Procedure [facility] [address] [place] [phone] [facility] OB Start: 04-17-2024 End: 04-17-2025 Alpha fetoprotein, maternal Alpha fetoprotein, maternal Lab Routine 17 weeks gestation of Second trimester Screening, , for anatomic survey Expected: 04/17/2024 (Approximate), Expires: 04/17/2025 [facility] Work Phone: Comment on above: Expected: 04/17/2024 (Approximate), Expires: 04/17/2025 Start: 04-17-2024 End: 04-17-2025 US for US OB 14+ weeks anatomy scan Imaging Routine Screening, , for anatomic survey Expected: 04/17/2024, Expires: 04/17/2025 [facility] Comment on above: Expected: 04/17/2024 , Expires: 04/17/2025 Start: 04-17-2024 End: 04-17-2024 Patient encounter procedure 04/17/2024 1:10 PM EDT Routine [facility] [address] [place] [phone] Radha Avila PA [address] [facility] [address] [place], [place] [phone] [facility] Start: 03-13-2024 End: 03-13-2024 ambulatory 03/13/2024 8:40 AM EST Initial [facility] [address] [place] [address] Eusebio Lam, DO [address] [facility] [address] [place], [place] [phone] [facility] Start: 01-20-2024 End: 01-20-2024 Patient encounter procedure 01/20/2024 11:20 AM EST Office Visit [facility] [address] [place] [address] Eusebio Lam, DO [address] [place] [address] [address] [place], [place] [id number] [facility] Start: 08-31-2023 DTaP/Tdap/Td vaccine (5 - Td) DTaP/Tdap/Td vaccine (5 - Td) [place], [place] Start: 10-10-2019 Influenza vaccination Flu vacc ine (Season Ended) [place] Start: 12-02-2018 DTaP/Tdap/Td vaccine (1 - Tdap) DTaP/Tdap/Td vaccine (1 - Tdap) [place] Start: 10-09-2018 Influenza vaccination Flu vaccine (# 1) [place] Start: 08-04-2016 Chlamydia screen Chlamydia screen [place], [place] Start: 08-04-2016 Screening for Chlamy penelope trachomatis Chlamydia screen [place] Start: 12-02-2014 HIV screen HIV screen Carlie Navarro [place] Start: 12-02-2014 [facility] [place] [place] Start: 12-02-2014 HPV vaccine (1 - Fem joselyn 3-dose series) HPV vaccine (1 - Female 3-dose series) [place] Start: 12-02-2012 Varicella Vaccine (1 of 2 - 13+ 2-dose series) Varicella Vaccine (1 of 2 - 13+ 2-dose series) [place] Start: 12-02-2010 DTaP/Tdap/Td vaccine (1 - Tdap) DTaP/Tdap/Td vaccine (1 - Tdap) [place] Start: 12-02-2010 HPV vaccine (1 - Fem joselyn 2-dose series) HPV vaccine (1 - Female 2-dose series) [place] Start: 12-02-2005 Pneumococcal 0-64 ye ars Vaccine (1 of 1 - PPSV23) Pneumococcal 0-64 years Vaccine (1 of 1 - PPSV23) [place] Start: 2003 Varicella vaccine (2 of 2 - 2-dose childhood series) Varicella vaccine (2 of 2 - 2-dose childhood series) [place] Start: 12-02-2000 Varicella Vaccine (1 of 2 - 2-dose childhood series) Varicella Vaccine (1 of 2 - 2-dose childhood series) [place] CBC W Auto Different ial panel - Blood CBC and differential Lab Routine Weight loss Ordered: 11/03/2023 [facility] Work Phone: Comment on above: Ordered: 11/03/2023 CBC W Auto Different ial panel - Blood CBC and differential Lab Routine Third trimester Ordered: 07/13/2024 [facility] Comment on above: Ordered: 07/13/2024 CHLAMYDIA TRACHOMATI S (GENITO/STI) CHLAMYDIA TRACHOMATIS (GENITO/STI) Lab Routine Exposure to STD Ordered: 05/16/2024 [facility] Comment on above: Ordered: 05/16/2024 Cytology Cervical or vaginal smear or scraping study Pap Smear Pathology and Cytology Routine Well woman exam with routine gynecological exam Ordered: 05/16/2024 [facility] Comment on above: Ordered: 05/16/2024 Hemoglobin A1c/Hemoglobin.total in Blood Hemoglobin A1c Lab Routine Weight loss Ordered: 11/03/2023 [facility] Comment on above: Ordered: 11/03/2023 Hemoglobin A1c/Hemoglobin.total in Blood Hemoglobin A1c Lab Routine Third trimester Ordered: 07/13/2024 [facility] Work Phone: Comment on above: Ordered: 07/13/2024 Neisseria gonorrhoea e DNA [Presence] in Unspecified specimen by STEFANIE with probe detection Neisseria gonorrhea DNA probe, direct Lab Routine Exposure to STD Ordered: 05/16/2024 [facility] Comment on above: Ordered: 05/16/2024 SURESWAB(R) ADVANCED VAGINITIS PLUS, TMA SURESWAB(R) ADVANCED VAGINITIS PLUS, TMA Pathology and Cytology Routine Vaginal discharge Ordered: 05/16/2024 [facility] Comment on above: Ordered: 05/16/2024 Thyrotropin [Units/volume] in Serum or Plasma TSH Lab Routine Weight loss Ordered: 11/03/2023 [facility] Comment on above: Ordered: 11/03/2023 Thyroxine (T4) free [Mass/volume] in Serum or Plasma T4, free Lab Routine Weight loss Ordered: 11/03/2023 [facility] Comment on above: Ordered: 11/03/2023 End: 12-14-2024 US for US OB follow up transabdominal approach Imaging Routine H/O delivery, currently 4 Occurrences starting 06/13/2024 until 12/14/2024 [facility] Work Phone: Comment on above: 4 Occurrences starti ng 06/13/2024 until 12/14/2024 Payers Date Payer Category Payer Unknown UNKNOWN 2022 Medicaid [id number] 2022 Medicaid [id number] 2018 Unknown [id number] 2018 Unknown [employer] xxxxxxxxxxx 2018-Present [phone] [address] [place] [address] xxxxxxxxxxx [id number]. [id number] 1999 Unknown [id number] 2.16.840.1.283129.3.579.2.176 1999 Unknown [id number] 2.16.840.1.523791.3.579.2.176 1999 Unknown [id number] 2.16.840.1.481894.3.579.2.176 1999 Unknown [id number] 2.16.840.1.153179.3.579.2.176 1999 Unknown [id number] 2.16.840.1.296696.3.579.2.175 1999 Unknown [id number] 2.16.840.1.635716.3.579.2.175 1999 Unknown [id number] 2.16.840.1.849064.3.579.2.175 1999 Unknown [id number] 2.16.840.1.854277.3.579.2.593 1999 Unknown [id number] 2.16.840.1.607328.3.579.2.593 1999 Unknown [id number] 2.16.840.1.238515.3.579.2.593 1999 Unknown [id number] 2.16.840.1.872536.3.579.2.593 1999 Unknown [id number] 2.16.840.1.880072.3.579.2.593 1999 Unknown [id number] 2.16.840.1.787890.3.579.2.593 1999 Unknown [id number] 2.16.840.1.222043.3.579.2.593 1999 Unknown [id number] 2.16.840.1.062279.3.579.2.593 1999 Unknown [id number] 2.16.840.1.660498.3.579.2.593 1999 Unknown [id number] 2.16.840.1.921630.3.579.2.593 1999 Unknown [id number] 2.16.840.1.054903.3.579.2.593 1999 Unknown [id number] 2.16.840.1.052517.3.579.2.593 1999 Unknown [id number] 2.16.840.1.866321.3.579.2.593 1999 Unknown [id number] 2.16.840.1.203434.3.579.2.718 1999 Unknown [id number] 2.16.840.1.245574.3.579.2.1286 1999 Unknown [id number] 2.16.840.1.570051.3.579.2.1286 1999 Unknown [id number] 2.16.840.1.802385.3.579.2.1286 1999 Unknown [id number] 2.16.840.1.279907.3.579.2.1286 1999 Unknown [id number] 2.16.840.1.660327.3.579.2.1286 1999 Unknown [id number] 2.16.840.1.024029.3.579.2.1286 1999 Unknown [id number] 2.16.840.1.229310.3.579.2.1286 1999 Unknown [id number] 2.16.840.1.625536.3.579.2.1286 1999 Unknown [id number] 2.16.840.1.081829.3.579.2.1259 1999 Unknown [id number] 2.16.840.1.747440.3.579.2.1259 1999 Unknown [id number] 2.16.840.1.263638.3.579.2.1259 1999 Unknown [id number] 2.16.840.1.024852.3.579.2.1259 1999 Unknown [id number] 2.16.840.1.853949.3.579.2.1259 1999 Unknown [id number] 2.16.840.1.335202.3.579.2.1259 1999 Unknown [id number] 2.16.840.1.589684.3.579.2.1259 1999 Unknown [id number] 2.16.840.1.163865.3.579.2.1259 1999 Unknown [id number] 2.16.840.1.330098.3.579.2.1259 1999 Unknown [id number] 2.16.840.1.318323.3.579.2.1259 1999 Unknown [id number] 2.16.840.1.381246.3.579.2.1259 1999 Unknown [id number] 2.16.840.1.751119.3.579.2.1259 1959 Self-pay 1959 Unknown [id number] 1959 Unknown [id number] Unknown [id number] 2.16.840.1.307966.3.579.2.593 Social History Date Type Detail Facility Start: 06-01-2019 End: 08-05-2022 Tobacco smoking status IAIS Current every day smoker [facility] Start: 06-01-2019 End: 11-03-2023 Cigarettes smoked current (pack per day) - Reported [place] Start: 01-07-2019 End: 06-01-2019 Alcohol intake Current non-drinker of alcohol (finding) [place] Start: 03-03-2011 Tobacco Comment Mother smokes [place] Start: 1999 Sex Assigned At Not on file [place] Exposure to SARS-CoV -2 (event) Unable to assess [place] Start: 2018 End: 11-03-2023 Alcohol intake No [place] History of tobacco use Cigarette Smoker [facility] Start: 03-09-2023 End: 05-16-2024 Alcohol intake Current drinker of alcohol (finding) [facility] Start: 08-05-2022 Tobacco Comment <1PPPD [facility] Start: 08-05-2022 Alcohol Comment heavy alcohol use [facility] Start: 12-29-2023 [facility] Clinical Notes 03-09-2023 to 08-23-2024 Jing Moncada, DIRECTOR AND PROFESSOR - 08/23/2024 1:00 PM EDStephen Ye, DIRECTOR AND PROFESSOR - 08/17/2024 10:00 AM Eloise Diego NP - 08/09/2024 8:30 AM Eloise Diego NP - 07/26/2024 11:10 AM EDT Note Date & Type Note Facility 08-23-2024 History of Presen t illness Narrative Reason [...] day smoker Heartburn History of miscarriage, currently ([facility] HISTORY PAST MEDICAL HISTORY SOCIAL HISTORY Past Medical History: Diagnosis Date Carrier of spinal muscular atrophy Current every day smoker Heartburn History of miscarriage, currently ([facility]) Social History Tobacco Use Smoking status: [...] nursing note reviewed. Exam conducted with a swimming professor present. Vitals: Estimated body mass index is 29.94 kg/m as calculated from the following: Height as of 03/12/22: 5' 3 . Weight as of this encounter: 169 lb. BP: 102/60 No LMP recorded. Patient is . ASSESSMENT & PLAN ICD-10-CM 1. Third trimester ([facility]) Z34.93 CULTURE, GROUP B STREP WITH SUSCEPTIBLITY CULTURE, GROUP B STREP WITH SUSCEPTIBLITY 2. 35 weeks gestation of ([facility]) Z3A.35 Patient is doing well but [...] Eusebio Lam DO documented in this encounter [facility] 08-17-2024 History of Presen t illness Narrative [...] smoker Heartburn History of miscarriage, currently ([facility]) HISTORY PAST MEDICAL HISTORY SOCIAL HISTORY Past Medical History: Diagnosis Date Carrier of spinal muscular atrophy Current every day smoker Heartburn History of miscarriage, currently ([facility]) Social History Tobacco Use Smoking status: [...] nursing note reviewed. Exam conducted with a swimming professor present. Vitals: Estimated body mass index is 28.7 kg/m as calculated from the following: Height as of 03/12/22: 5' 3 . Weight as of this encounter: 162 lb. BP: 108/60 No LMP recorded. Patient is . ASSESSMENT & PLAN ICD-10-CM 1. Third trimester ([facility]) Z34.93 POCT urinalysis dipstick manually resulted 2. 35 weeks gestation of ([facility]) Z3A.35 POCT urinalysis dipstick manually resulted Patient presents today for a routine obstetrics appointment. Patient is currently 35w0d with a Estimated Date of Delivery: 09/21/24. Pelvic exam performed and patient is dilated to 1cm. Patient to RTC in 1 week. Documented by Sunshine Ye LPN on behalf of: Eusebio Lam DO documented in this encounter [facility] 08-09-2024 History of Presen t illness Narrative [...] smoker Heartburn History of miscarriage, currently ([facility]) HISTORY PAST MEDICAL HISTORY SOCIAL HISTORY Past Medical History: Diagnosis Date Carrier of spinal muscular atrophy Current every day smoker Heartburn History of miscarriage, currently ([facility]) Social History Tobacco Use Smoking status: [...] nursing note reviewed. Exam conducted with a swimming professor present. Vitals: Estimated body mass index is 29.01 kg/m as calculated from the following: Height as of 03/12/22: 5' 3 . Weight as of this encounter: 163 lb 12 oz. BP: 110/58 No LMP recorded. Patient is . ASSESSMENT & PLAN ICD-10-CM 1. Third trimester ([facility]) Z34.93 POCT urinalysis dipstick manually resulted 2. 33 weeks gestation of ([facility]) Z3A.33 Return OB: Patient presents today [...] Radha Diego NP documented in this encounter [facility] 07-26-2024 History of Presen t [...] smoker Heartburn History of miscarriage, currently ([facility]) HISTORY PAST MEDICAL HISTORY SOCIAL HISTORY Past Medical History: Diagnosis Date Carrier of spinal muscular atrophy Current every day smoker Heartburn History of miscarriage, currently ([facility]) Social History Tobacco Use Smoking status: [...] nursing note reviewed. Exam conducted with a swimming professor present. Vitals: Estimated body mass index is 28.61 kg/m as calculated from the following: Height as of 03/12/22: 5' 3 . Weight as of this encounter: 161 lb 8 oz. BP: 102/62 No LMP recorded. Patient is . ASSESSMENT & PLAN ICD-10-CM 1. Third trimester ([facility]) Z34.93 POCT urinalysis dipstick manually resulted 2. 31 weeks gestation of ([facility]) Z3A.31 Return OB: Patient presents today [...] Eusebio Lam DO documented in this encounter [facility] 07-13-2024 History of Presen t [...] nursing note reviewed. Exam conducted with a swimming professor present. Vitals: Estimated body mass index is [...] Eusebio Lam DO documented in this encounter [facility] 06-28-2024 History of Presen t [...] of: JOSE Vanessa documented in this encounter [facility] 06-13-2024 History of Presen t [...] nursing note reviewed. Exam conducted with a swimming professor present. Vitals: Estimated body mass index is [...] Eusebio Lam DO documented in this encounter [facility] 05-16-2024 History of Presen t [...] nursing note reviewed. Exam conducted with a swimming professor present. Vitals: Estimated body mass index is [...] obtained without difficulty and patient will see M next Wednesday. Orders Placed This Encounter Procedures CBC Glucose tolerance, 1 hour CHLAMYDIA TRACHOMATIS (GENITO/STI) Neisseria gonorrhea DNA probe, direct POCT urinalysis dipstick manually resulted Follow Up: Patient is to return to our office in 4 weeks for routine OB appointment Documented by Jing Moncada LPN on behalf of: Eusebio Lam DO documented in this encounter [facility] 04-17-2024 History of Presen t [...] dipstick manually resulted Patient being referred to [facility], states she went into labor at 35 weeks previously. Follow Up: Patient is to return to office in 4 week for routine OB appointment. Documented by JOSE Vanessa on behalf of: JOSE Vanessa documented in this encounter [facility] 03-22-2024 History of Presen t [...] or undercooked meat, and stay away from [facility]. Patient has been consulted regarding any further do's and don'ts of . Patient voiced understanding and all questions and concerns were answered. No orders of the defined types were placed in this encounter. Follow Up: Patient is to return in 4 weeks for routine OB appointment. Documented by Jing Moncada LPN on behalf of: JOSE Vanessa documented in this encounter [facility] 01-11-2024 Note Education Materials Obstetrics and Gynecology Bacterial Vaginosis Take the antibiotic as prescribed. Follow-up with your FRAUD MANAGER to review this emergency department visit. [...] these instructions at home: Medicines ? Take [id number] and prescription medicines as told by your [...] for Disease Control and Prevention: www.cdc.gov ? [place] [employer]: www.ashastd.org ? Office on [...] provider. Document Revised: 07/25/2020 Document Reviewed: 07/25/2020 [employer] Patient Education ? 2023 [facility]. [facility] 11-03-2023 History of Presen t illness Narrative [...] nursing note reviewed. Exam conducted with a swimming professor present. Vitals: Estimated body mass index is [...] Eusebio Lam DO documented in this encounter [facility] 03-09-2023 History of Presen t [...] nursing note reviewed. Exam conducted with a swimming professor present. Vitals: Estimated body mass index is [...] Documents on File Type Date Recorded Patient Media Consultant Outside Sales Expl anation Advance Directives and Living Will Power of Associate Professor Of Medicine Discharge Instructions * Instructions* Victorino Sullivan MD [...] fracture for several days THANK YOU!!! From [facility] and [facility] On behalf of the Emergency Department staff at [facility], I would like to thank you for giving us the opportunity to address your health care needs and concerns. We hope that during your visit, our service was delivered in a professional and caring manner. Please keep [facility] in mind as we walk [...] how we did during your visit at [email or web address] and let us know about your experience * Attachments The following attachments cannot be sent through Care Everywhere. * Ankle Sprain (Urdu) documented in this encounter* Attachments The following attachments cannot be sent through Care Everywhere. * Ankle Sprain (Urdu) documented in this encounter* Instructions* Ann-Marie Engle, [...] be sent through Care Everywhere. * Dyspepsia (Urdu) * Chest Pain (Urdu) documented in this encounter* Attachments The following attachments cannot be sent through Care Everywhere. * Amenorrhea: Secondary (Urdu) documented in this encounter Assessments Diagnosis Sprain [...] section and content) DATE CREATED AUTHOR 03/12/2019 [facility] DATE CREATED AUTHOR AUTHOR'S ORGANIZ ATION 06/01/2019 [facility] DATE CREATED AUTHOR AUTHOR'S ORGANIZ ATION 07/17/2022 [facility] DATE CREATED AUTHOR AUTHOR'S ORGANIZ ATION 01/06/2024 [place] DATE CREATED AUTHOR AUTHOR'S ORGANIZ ATION 01/13/2024 [facility] DATE CREATED AUTHOR AUTHOR'S ORGANIZ ATION 02/18/2024 [facility] DATE CREATED AUTHOR AUTHOR'S ORGANIZ ATION 02/18/2024 [facility] DATE CREATED AUTHOR AUTHOR'S ORGANIZ ATION 05/26/2024 [facility] DATE CREATED AUTHOR AUTHOR'S ORGANIZ ATION 08/21/2024 [facility] dical Specialists EPIC Reason for [...] Care Teams (unrecognized sec tion and content) Legal Instructor Relationship Specialty Start Date End Date Ann-Marie Ash MD [address] [place] [id number] PCP - General Family Medicine 07/03/22 Legal Instructor Relationship Specialty Start Date End Date Ann-Marie Ash MD [address] [place] [address] [phone] PCP - General Family Medicine 07/03/22 Legal Instructor Relationship Specialty Start Date End Date Ann-Marie Ash MD [address] [place] [address] [phone] PCP - General Family Medicine 07/03/22 Legal Instructor Relationship Specialty Start Date End Date Ann-Marie Ash MD [address] [place] [phone] PCP - General Family Medicine 07/03/22 Legal Instructor Relationship Specialty Start Date End Date Ann-Marie Ash MD [address] [place] [address] [phone] PCP - General Family Medicine 07/03/22 Legal Instructor Relationship Specialty Start Date End Date Ann-Marie Ash MD [address] [place] [address] [phone] PCP - General Family Medicine 07/03/22 Legal Instructor Relationship Specialty Start Date End Date Ann-Marie Ash MD [address] [place] [address] [phone] PCP - General Family Medicine 07/03/22 Legal Instructor Relationship Specialty Start Date End Date Ann-Marie Ash MD [address] [place] [address] [phone] PCP - General Family Medicine 07/03/22 Legal Instructor Relationship Specialty Start Date End Date Ann-Marie Ash MD [address] [place] [address] [phone] PCP - General Family Medicine 07/03/22 Legal Instructor Relationship Specialty Start Date End Date Ann-Marie Ash MD [address] [place] [address] [phone] PCP - General Family Medicine 07/03/22 Legal Instructor Relationship Specialty Start Date End Date Ann-Marie Ash MD [address] [place] [address] [phone] PCP - General Family Medicine 07/03/22 Legal Instructor Relationship Specialty Start Date End Date Ann-Marie Ash MD [address] [place] [address] [phone] PCP - General Family Medicine 07/03/22 Legal Instructor Relationship Specialty Start Date End Date Ann-Marie Ash MD [address] [place] [address] [phone] PCP - General Family Medicine 07/03/22 FOR [...] BE BASED ON THE PRIMARY CLINICAL RECORDS. [facility]. provides no warranty or guarantee of the accuracy or completeness of information in this document.
--- OUTSIDE RECORDS SUMMARY | 2024-08-24 23:03 | XMS_ITS | Encounter Summary ---
Author Organization [facility] Address [address] [place] [address] Care Team Providers Care Partition Assembler Name Role Phone Janee Del [place] MD Unavailable Orlando Ash MD Primary Care Provider [phone] Encounter Details Date Type Department Care Team (Late Contact Info) Description 08/06/2022 Abstract [facility] [address] [place] [address] [place] [address] [place], [place] [id number] Social History Tobacco Use Types Packs/Day Years [...] Description 08/30/2024 11:00 AM EDT Routine [facility] [address] [place] [address] [place] [address] [place], [place] [id number] documented as of this encounter Visit Diagnoses Not on filedocumented in this encounter Care Teams Partition Assembler Relationship Specialty Start Date End Date Janee Del Valle MD [address] [place] [address] PCP - Sri Gallegos 03/11/22 Orlando Ash MD [address] [place], [place] [phone] PCP - General Family Medicine 07/03/22 documented as of this encounter
--- OUTSIDE RECORDS SUMMARY | 2024-08-24 23:03 | XMS_ITS | Encounter Summary ---
Author Organization [facility] Address [address] [place] [address] Care Team Providers Care Top Knitter Name Role Phone Orlando Ash MD Primary Care Provider [phone] Encounter Details Date Type Department Care Team (Late Contact Info) Description 08/17/2024 Bamboo flowsheet [facility] OB [address] [facility] [place] [address] Eusebio Lam DO [address] [place] [address] Marisa [place], [place] [address] Social History Tobacco Use Types Packs/Day Years [...] [facility] [address] [place] [address] Eusebio Lam [facility] [place], [facility]11 documented as of this encounter Visit Diagnoses Not on filedocumented in this encounter Care Teams Top Knitter Relationship Specialty Start Date End Date Orlando Ash MD [address] [place] [address] PCP - General Family Medicine 07/03/22 documented as of this encounter
--- OUTSIDE RECORDS SUMMARY | 2024-08-24 23:03 | XMS_ITS | Encounter Summary ---
Author Organization [facility] Address [address] [place] [address] Care Team Providers Care Cosmetician Apprentice Name Role Phone Orlando Ash MD Primary Care Provider [phone] Encounter Details Date Type Department Care Team (Late st Contact Info) Description 12/29/2022 Clinisync Result Encounter NOMS External Department Unsolicited Yuri Lam, [facility] [place] [address] Social History Tobacco Use Types Packs/Day Years [...] [facility] BCP OB [address] [place] [address] Yuri Lma DO [facility] [place] [address] documented as of this encounter Procedures Procedure Name Priority Date/Time Associated Diagnosis Comments US OB CERVICAL LENGTH 12/29/2022 2:24 PM EST documented in this encounter Results * US OB CERVICAL LENGTH (12/29/2022 2:24 PM EST) Anatomical Region Laterality Modality Other 12/29/2022 2:24 PM EST Narrative 12/29/2022 2:24 PM EST [address] [address] Ultrasound Report Signed Patient: HAWK KING MR#: [id number] : 2000 Acct:[id number] Age/Sex: 22 / F ADM Date: Loc: [facility] 254-[address]: Yuri Lam D.O. Ordering Physician: Yuri Lam D.O. Date of Service: 12/29/22 Procedure(s): US OB cervical length Accession Number(s): [id number] cc: Yuri Lam D.O.; Physician,Non-Staff M.Sigrid [address] [address] Patient Name: HAWK KING MRN: [id number] date: 2000 Sex: F Assigned Patient Location: [facility] Current Patient Location: [facility] Accession/Order Number: [id number] Exam Date: 12/29/2022 13:06 Report Date: 12/29/2022 [...] Signed By: 12/29/22 1427 DD/ 1424 TD/TT: Carpenter Rough: Procedure Note Radiology, Radiologist, MD - 12/29/2022 [place] [address] Ultrasound Report Signed Patient: HAWK KING CMR#: [id number] : 2000Acct:[id number] Age/Sex: Date: Loc: [facility] 254-[address]: Yuri Lam D.O. Ordering Physician: Yuri Lam D.O. Date of Service: 12/29/22 Procedure(s): US OB cervical length Accession Number(s): [id number] cc: Yuri Lam D.O.; Physician,Non-Staff Sindy The [place] [id number] Patient Name: HAWK KING MRN: [id number] date: 2000 Sex: F Assigned Patient Location: [facility] Current Patient Location: [facility] Accession/Order Number: [id number] Exam Date: 12/29/2022 13:06 Report Date: 12/29/2022 [...] M.D. Signed By:12/29/22 1427 DD/ 1424 TD/TT: Carpenter Rough: us Yuri Lam DO [facility] Final Result documented in this encounter Visit Diagnoses Not on filedocumented in this encounter Care Teams Cosmetician Apprentice Relationship Specialty Start Date End Date Orlando Ash MD [address] [place] [address] PCP - General Family Medicine 07/03/22 documented as of this encounter
--- OUTSIDE RECORDS SUMMARY | 2024-08-24 23:03 | XMS_ITS | Encounter Summary ---
Author Organization [facility] Address [address] [place] [address] Care Team Providers Care Logistics Specialist Name Role Phone Orlando Ash MD Primary Care Provider [phone] Encounter Details Date Type Department Care Team (Late st Contact Info) Description 12/29/2022 Clinisync Result Encounter [facility] External Department Unsolicited Yuri Lam, DO [facility] [address] Social History Tobacco Use Types Packs/Day Years [...] [facility] BCP OB [address] [place] [address] Yuri Lam DO [facility] [place] [address] documented as of this encounter Procedures Procedure Name Priority Date/Time Associated Diagnosis Comments US OB BPP W NON-STRESS 12/29/2022 2:24 PM EST documented in this encounter Results * US OB BPP W NON-STRESS (12/29/2022 2:24 PM EST) Anatomical Region Laterality Modality Other 12/29/2022 2:24 PM EST Narrative 12/29/2022 2:24 [place] [address] Ultrasound Report Signed Patient: HAWK KING MR#: [id number] : 2000 Acct:[id number] Age/Sex: 22 / F ADM Date: Loc: [facility] 254-[address]: Yuri Lam D.O. Ordering Physician: Yuri Lam D.O. Date of Service: 12/29/22 Procedure(s): US OB BPP w non-stress Accession Number(s): [id number] cc: Yuri Lam D.O.; Physician,Non-Staff M.Sigrid [place] [id number] Patient Name: HAWK KING MRN: [id number] date: 2000 Sex: F Assigned Patient Location: [facility] Current Patient Location: [facility] Accession/Order Number: [id number] Exam Date: 12/29/2022 13:06 Report Date: 12/29/2022 [...] Signed By: 12/29/22 1427 DD/ 23 TD/TT: Landing Signal Officer: Procedure Note Radiology, Radiologist, MD - 12/29/2022 [place] [address] Ultrasound Report Signed Patient: HAWK KING CMR#: [id number] : 2000Acct:[id number] Age/Sex: Date: Loc: [facility] 254-[address]: Yuri Lam D.O. Ordering Physician: Yuri Lam D.O. Date of Service: 12/29/22 Procedure(s): US OB BPP w non-stress Accession Number(s): [id number] cc: Yuri Lam D.O.; Physician,Non-Staff M.DTaylor The [place] [id number] Patient Name: HAWK KING MRN: [id number] date: 2000 Sex: F Assigned Patient Location: [facility] Current Patient Location: [facility] Accession/Order Number: [id number] Exam Date: 12/29/2022 13:06 Report Date: 12/29/2022 [...] M.D. Signed By:12/29/22 1427 DD/ 142 TD/TT: Landing Signal Officer: us Yuri Carole DO [facility] Final Result documented in this encounter Visit Diagnoses Not on filedocumented in this encounter Care Teams Logistics Specialist Relationship Specialty Start Date End Date Orlando Ash MD [address] [place], [place] [address] PCP - General Family Medicine 07/03/22 documented as of this encounter
--- OUTSIDE RECORDS SUMMARY | 2024-08-24 23:03 | XMS_ITS | Encounter Summary ---
Author Organization [facility] Address [address] [facility] [place] [address] Care Team Providers Care Patrol Captain Name Role Phone Janee Del Valle MD Unavailable Orlando Ash MD Primary Care Provider [phone] Encounter Details Date Type Department Care Team (Late st Contact Info) Description 08/03/2022 Abstract [facility] OB [address] [facility] [place] [address] Eusebio Lam, [address] [place], [place] [address] Social History Tobacco Use Types Packs/Day Years [...] Routine [facility] BCP OB [address] [place] [address] Eusebio Lam DO [facility] [place] [address] documented as of this encounter Visit Diagnoses Not on filedocumented in this encounter Care Teams Patrol Captain Relationship Specialty Start Date End Date Janee Del Valle MD [address] [place] [address] PCP - [employer] 03/11/22 Orlando Ash MD [address] [place] [address] PCP - General Family Medicine 07/03/22 documented as of this encounter
--- OUTSIDE RECORDS SUMMARY | 2024-08-24 23:03 | XMS_ITS | Clinical Summary ---
Author Organization [employer] tem Address [id number] [address] [place] [address] Care Team Providers Care Head Refrigeration Engineer Name Role Phone Orlando Ash MD Primary Care Provider [phone] Allergies No known active allergies Medications 89-cmmm-cegikb 9-dha 31 mg iron- 1 mg-200 mg [...] (ADHD), predominantly inattentive type 05/30/2021 0 02/11/2024 Family History Medical History Relation Name Comments [...] Procedure Name Priority Date/Time Associated Diagnosis Comments CHLAMYDIA/GC BY PCR SINDI SWAB Routine 06/24/2021 8:36 AM EDT care in first trimester PAP SMEAR Routine 02/25/2021 12:56 PM EST Cervical cancer screening Well woman exam from Last 3 Months or Most Recently Relevant to Health Maintenance Results * Chlamydia/GC by PCR Sindi Swab (06/24/2021 8:36 AM EDT) Specimen source CERVICAL 10:25 AM EDT [facility] Chlamydia DNA PCR Negative Negative^N egative 06/26/2021 6:02 AM EDT [facility] Comment: Chlamydia trachomatis not detected by nucleic acid amplification. This does not exclude the possibility of infection because results are dependent on adequate specimen collection. Gonorrhea DNA PCR Negative Negative^N egative 06/26/2021 6:02 AM EDT [facility] Comment: Neisseria gonorrhoeae not detected by nucleic acid amplification. This does not exclude the possibility of infection because results are dependent on adequate specimen collection. GENS 06/24/2021 8:36 AM EDT 06/25/2021 10:25 AM EDT us Lima Gonzalez DIRECTOR PUBLIC-CNM MICROBIOLOGY - GENERAL O RDERABLES Final Result [place] [address] [facility] [facility] [place] [address] * Pap Smear (02/25/2021 12:56 PM EST) 02/25/2021 12:5 6 PM EST 02/26/2021 12:58 PM EST Narrative COPATH - 02/27/2021 2:27 PM EST [facility] [address] [place] [address] Gynecologic Cytology Consultation Patient Name: HAWK KING : 2000 (Age: 20) Gender: F Taken: 02/25/2021 Reported: 02/27/2021 Physician(s): Lima Gonzalez CNM ([phone]) Copy To: [facility]. Rec. #: [id number] Acct: # [id number] Final Cytologic Interpretation ThinPrep Pap Test (Cervical): Satisfactory for evaluation. A transformation zone component was not noted. NEGATIVE FOR INTRAEPITHELIAL LESION OR MALIGNANCY. Shift in missy suggestive of bacterial vaginosis. Comment: This ThinPrep slide could not be successfully imaged by the Mobile LabsPrep Imaging System so it was manually screened. [facility] [place]/02/27/2021 Interpretation performed at [facility], [address] [place] [address], License number: [id number]. Electronically Signed Out By PAUL Madrigal(ASCP) Date of Last Menstrual Period: 02/20/2021 Other Clinical Conditions: Z12.4 Screening for malignant neoplasm of cervix Z01.419 Labor Crew Supervisor exam wo/abn findings Source of Specimen ThinPrep Pap Test (Cervical) Thin Prep Pap (MARKET MANAGER) Fee Code(s): G0145, G0145 <CR>, G0123 The Pap test is a screening test with an inherent, but low, probability of error. The Pap test is primarily effective for the diagnosis and prevention of squamous cell carcinoma. Regular screening is critical for prevention. ThinPrep liquid-based slides, which meet the Non Destructive Testing Scientist criteria for automated screening, have been screened by the StARTinitiativePrep Imaging System (as of 10/25/06) along with an additional manual rescreening by a hide paster and, if indicated, by a pathologist. Lima Gonzalez DIRECTOR PUBLIC-CNM PATHOLOGY/CYTOLOGY ORDER SYED Final Result COPATH from Last 3 Months or Most Recently Relevant to Health Maintenance Insurance [employer] Care Teams Head Refrigeration Engineer Relationship Specialty Start Date End Date Orlando Ash MD [address] [place] [address] PCP - General Family Medicine 06/09/18
--- OUTSIDE RECORDS SUMMARY | 2024-08-24 23:03 | XMS_ITS | Encounter Summary ---
Author Organization [facility] Address [address] [place] [address] Care Team Providers Care Undertaker Assistant Name Role Phone Janee Del Valle MD Unavailable Orlando Ash MD Primary Care Provider [phone] Encounter Details Date Type Department Care Team (Late Contact Info) Description 09/03/2022 Abstract [facility] OB [address] [place] [address] Radha Avila PA [address] [place] [address] Dr [place], [place] [address] Social History Tobacco Use Types Packs/Day Years [...] Description 08/30/2024 11:00 AM EDT Routine [facility] OB [address] [place] [address] Eusebio Lam, [address] [facility] [address] [place], [place] [address] documented as of this encounter Visit Diagnoses Not on filedocumented in this encounter Care Teams Undertaker Assistant Relationship Specialty Start Date End Date Janee Del Valle MD [address] [place] [address] PCP - Sri Gallegos 03/11/22 Orlando Ash MD [address] [place], [place] [address] PCP - General Family Medicine 07/03/22 documented as of this encounter
--- OUTSIDE RECORDS SUMMARY | 2024-08-24 23:03 | XMS_ITS | Encounter Summary ---
Author Organization [facility] Address [address] [facility] [place] [address] Care Team Providers Care Petroleum Refinery Worker Name Role Phone Orlando Ash MD Primary Care Provider [phone] Encounter Details Date Type Department Care Team (Late st Contact Info) Description 12/29/2022 Clinisync Result Encounter NOMS External Department Unsolicited Yuri Lam [facility] [place] [address] Social History Tobacco Use Types Packs/Day Years [...] [facility] BCP OB [address] [place] [address] Yuri Lam DO [facility] [place] [address] documented as of this encounter Procedures Procedure Name Priority Date/Time Associated Diagnosis Comments US OB PLACENTA 12/29/2022 2:24 PM EST documented in this encounter Results * US OB PLACENTA (12/29/2022 2:24 PM EST) Anatomical Region Laterality Modality Other 12/29/2022 2:24 PM EST Narrative 12/29/2022 2:24 PM EST [address] [address] Ultrasound Report Signed Patient: HAWK KING MR#: [id number] : 2000 Acct:[id number] Age/Sex: 22 / F ADM Date: Loc: [facility] 254-[address]: Yuri Lam D.O. Ordering Physician: Yuri Lam D.O. Date of Service: 12/29/22 Procedure(s): US OB placenta Accession Number(s): [id number] cc: Yuri Lam D.O.; Physician,Non-Staff MLeopoldo [place] [address] Patient Name: HAWK KING MRN: [facility]:[id number] date: 2000 Sex: F Assigned Patient Location: [facility] Current Patient Location: [facility] Accession/Order Number: [id number] Exam Date: 12/29/2022 13:06 Report Date: 12/29/2022 [...] Signed By: 12/29/22 1427 DD/ 1424 TD/TT: Fittings Finisher: Procedure Note Radiology, Radiologist, MD - 12/29/2022 [place] [address] Ultrasound Report Signed Patient: HAWK KING CMR#: [id number] : 2000Acct:[id number] Age/Sex: 22 FADM Date: Loc: [facility] 254- Attending Dr: Yuri Lam D.O. Ordering Physician: Yuri Lam D.O. Date of Service: 12/29/22 Procedure(s): US OB placenta Accession Number(s): [id number] cc: Yuri Lam D.O.; Physician,Non-Staff Sindy The [place] [address] Patient Name: HAWK KING MRN: [id number] date: 2000 Sex: F Assigned Patient Location: [facility] Current Patient Location: [facility] Accession/Order Number: [id number] Exam Date: 12/29/2022 13:06 Report Date: 12/29/2022 [...] M.D. Signed By:12/29/22 1427 DD/ 142 TD/TT: Fittings Finisher: us Yuri Carole DO [facility] Final Result documented in this encounter Visit Diagnoses Not on filedocumented in this encounter Care Teams Petroleum Refinery Worker Relationship Specialty Start Date End Date Orlando Ash MD [address] [place] [address] PCP - General Family Medicine 07/03/22 documented as of this encounter
--- OUTSIDE RECORDS SUMMARY | 2024-08-24 23:03 | XMS_ITS | Encounter Summary ---
Author Organization [facility] Address [address] [facility] [place] [address] Care Team Providers Care Dovetailer Name Role Phone Janee Del Valle MD Unavailable Orlando Ash MD Primary Care Provider [phone] Encounter Details Date Type Department Care Team (Late st Contact Info) Description 07/20/2022 Abstract [facility] BCP OB [address] [facility] [place] [address] Eusebio Lam, [address] [place], [place] [address] Social History Tobacco Use Types Packs/Day Years [...] BCP OB [address] [facility] [address] Eusebio Lam [facility] [place] [address] documented as of this encounter Visit Diagnoses Not on filedocumented in this encounter Care Teams Dovetailer Relationship Specialty Start Date End Date Janee Del Valle MD [address] [place] [address] PCP - [employer] 03/11/22 Orlando Ash MD [address] [place] [address] PCP - General Family Medicine 07/03/22 documented as of this encounter
--- OUTSIDE RECORDS SUMMARY | 2024-08-24 23:03 | XMS_ITS | Encounter Summary ---
Author Organization [facility] Address [address] [facility] [place] [address] Care Team Providers Care Stringing Machine Tender Name Role Phone Orlando Ash MD Primary Care Provider [phone] Encounter Details Date Type Department Care Team (Late st Contact Info) Description 01/04/2023 Clinisync Result Encounter NOMS External Department Unsolicited Yuri Lam [place] [address] Social History Tobacco Use Types Packs/Day Years [...] Routine [facility] BCP OB [address] [place] [address] Yuri Lam DO [employer] [place] [address] documented as of this encounter Procedures Procedure Name Priority Date/Time Associated Diagnosis Comments US OB GROWTH 01/04/2023 3:14 PM EST documented in this encounter Results * US OB GROWTH (01/04/2023 3:14 PM EST) Anatomical Region Laterality Modality Other 01/04/2023 3:14 PM EST Narrative 01/04/2023 3:14 PM EST [address] [address] Ultrasound Report Signed Patient: HAWK KING MR#: [id number] : 2000 Acct:[id number] Age/Sex: 22 / F ADM Date: 01/04/23 Loc: US Attending Dr: Yuri Lam D.O. Ordering Physician: Yuri Lam D.O. Date of Service: 01/04/23 Procedure(s): US OB growth Accession Number(s): [id number] cc: Yuri Lam D.O.; Physician,Non-Staff M.Sigrid The [place] [address] Patient Name: HAWK KING MRN: [facility]:[id number] date: 2000 Sex: F Assigned Patient Location: Current Patient Location: [facility] Accession/Order Number: [id number] Exam Date: 01/04/2023 12:57 Report Date: 01/04/2023 [...] Signed By: 01/04/23 1516 DD/ 13 TD/TT: House Wirer Helper: Procedure Note Radiology, Radiologist, MD - 01/04/2023 [place] [address] Ultrasound Report Signed Patient: HAWK KING CMR#: [id number] : 2000Acct:[id number] Age/Sex: 22 / FADM Date: 01/04/23 Loc: US Attending Dr: Yuri Lam D.O. Ordering Physician: Yuri Lam D.O. Date of Service: 01/04/23 Procedure(s): US OB growth Accession Number(s): [id number] cc: Yuri Lam D.O.; Physician,Non-Staff Sindy The [place] [id number] Patient Name: HAWK KING MRN: [id number] date: 2000 Sex: F Assigned Patient Location: US Current Patient Location: [facility] Accession/Order Number: [id number] Exam Date: 01/04/2023 12:57 Report Date: 01/04/2023 [...] Mcwilliams M.D. Signed By:01/04/231515 DD/ 13 TD/TT: House Wirer Helper: us Yuri Carole DO [facility] Final Result documented in this encounter Visit Diagnoses Not on filedocumented in this encounter Care Teams Stringing Machine Tender Relationship Specialty Start Date End Date Orlando Ash MD [address] [place] [address] PCP - General Family Medicine 07/03/22 documented as of this encounter
[2024-08-24 23:09] VITALS: BP 121/71; PULSE 111
[2024-08-24 23:29] LABS: Glucose Urine UA NEGATIVE (NEGATIVE)
[2024-08-24 23:37] LABS: Cast Seen? NONE SEEN #/LPF (NONE SEEN); Crystals Seen? None Seen #/HPF (None Seen); Urine Culture Indicated NO
== END 2024-08-25 02:10 | disposition home or self-care (01) ==
PROVIDERS: Admitting Provider Obstetrics & Gynecology; Visit Provider Obstetrics & Gynecology
DX: O47.03 False labor before 37 completed weeks of gestation, third trimester (principal); Z3A.36 36 weeks gestation of pregnancy
CPT/HCPCS: 59025; 81001; G0378; G0379

== ENCOUNTER 2024-08-26 13:02 | Outpatient (OUT) | payer MEDICAID, SELFPAY ==
--- OUTSIDE RECORDS SUMMARY | 2024-08-26 13:04 | XMS_ITS | Clinical Summary ---
Author Organization [employer] tem Address [id number] [address] [place] [address] Care Team Providers Care Assembler Steam And Gas Turbine Name Role Phone Orlando Ash MD Primary Care Provider [phone] Allergies No known active allergies Medications 53-eqmx-abaulj 9-dha 31 mg iron- 1 mg-200 mg [...] EDT) Specimen source CERVICAL 10:25 AM EDT [employer] Chlamydia DNA PCR Negative Negative^N egative 06/26/2021 6:02 AM EDT [facility] Comment: Chlamydia trachomatis not detected by nucleic acid amplification. This does not exclude the possibility of infection because results are dependent on adequate specimen collection. Gonorrhea DNA PCR Negative Negative^N egative 06/26/2021 6:02 AM EDT [facility] Comment: Neisseria gonorrhoeae not detected by nucleic acid amplification. This does not exclude the possibility of infection because results are dependent on adequate specimen collection. GENS 06/24/2021 8:36 AM EDT 06/25/2021 10:25 AM EDT us Lima Gonzalez LEDGER POSTER-CNM MICROBIOLOGY - GENERAL O RDERABLES Final Result [facility] [address] [place] [address] * Pap Smear (02/25/2021 12:56 PM EST) 02/25/2021 12:5 6 PM EST 02/26/2021 12:58 PM EST Narrative COPATH - 02/27/2021 2:27 PM EST [facility] [address] [place] [address] Gynecologic Cytology Consultation Patient Name: HAWK KING : 2000 (Age: 20) Gender: F Taken: 02/25/2021 Reported: 02/27/2021 Physician(s): Lima Gonzalez CNM ([phone]) Copy To: [facility]. Rec. #: [id number] Acct: # [id number] Final Cytologic Interpretation ThinPrep Pap Test (Cervical): Satisfactory for evaluation. A transformation zone component was not noted. NEGATIVE FOR INTRAEPITHELIAL LESION OR MALIGNANCY. Shift in missy suggestive of bacterial vaginosis. Comment: This ThinPrep slide could not be successfully imaged by the BirdiPrep Imaging System so it was manually screened. [facility] [place] [place]/02/27/2021 Interpretation performed at [facility], [address] [place] [address], License number: [id number]. Electronically Signed Out By PAUL Madrigal(ASCP) Date of Last Menstrual Period: 02/20/2021 Other Clinical Conditions: Z12.4 Screening for malignant neoplasm of cervix Z01.419 Business Development Recruiter exam wo/abn findings Source of Specimen ThinPrep Pap Test (Cervical) Thin Prep Pap ([facility]) Fee Code(s): G0145, G0145 <CR>, G0123 The Pap test is a screening test with an inherent, but low, probability of error. The Pap test is primarily effective for the diagnosis and prevention of squamous cell carcinoma. Regular screening is critical for prevention. ThinPrep liquid-based slides, which meet the Balance And Hairspring Assembler criteria for automated screening, have been screened by the TownHogPrep Imaging System (as of 10/25/06) along with an additional manual rescreening by a software quality automation engineer and, if indicated, by a pathologist. Lima Gonzalez LEDGER POSTER-CNM PATHOLOGY/CYTOLOGY ORDER SYED Final Result COPATH from Last 3 Months or Most Recently Relevant to Health Maintenance Insurance [employer] MEDICAID Care Teams Assembler Steam And Gas Turbine Relationship Specialty Start Date End Date Orlando Ash MD [address] [place] [address] PCP - General Family Medicine 06/09/18
--- OUTSIDE RECORDS SUMMARY | 2024-08-26 13:04 | XMS_ITS | Encounter Summary ---
Author Organization [employer] Address [facility] [id number] [address] [place] [address] Care Team Providers Care Carpet Sewing Machine Operator Name Role Phone Orlando Ash MD Primary Care Provider Encounter Details Date Type Department Care Team (Late st Contact Info) Description [facility]/03[facility]2021 [facility] [address] [place] [phone] Rachel Dan, [facility] Social History Tobacco Use Types Packs/Day Years [...] 8 weeks and mom is traveling to [place] and patient would like to ride along. Patient miscarried back in January and her mom wants to be sure its safe for pt to ride in a car to and from [place]. She doesn't want to cause any kind of demise to fetus. Pleaseadvise. Thanks! * Telephone Encounter - KRISTYN Mcdowell - 07/03/2021 11:30 AM EDT Patient may travel to [place]. She should make frequent stops to stretch [...] documented as of this encounter Care Teams Carpet Sewing Machine Operator Relationship Specialty Start Date End Date Orlando Ash MD [address] [place] [address] PCP - General Family Medicine 06/09/18 documented as of this encounter
--- OUTSIDE RECORDS SUMMARY | 2024-08-26 13:04 | XMS_ITS | Encounter Summary ---
Author Organization [employer] Address [facility] [id number] [address] [place] [address] Care Team Providers Care Manager Cardiology Name Role Phone Orlando Ash MD Primary Care Provider [phone] Encounter Details Date Type Department Care Team (Late st Contact Info) Description 07/21/2021 Orders Only [facility] [address] [facility] [address] [place] [id number] Genny Mosquera, MARTY care in first trimester; [...] documented as of this encounter Care Teams Manager Cardiology Relationship Specialty Start Date End Date Orlando Ash MD [address] [place] [address] PCP - General Family Medicine 06/09/18 documented as of this encounter
--- OUTSIDE RECORDS SUMMARY | 2024-08-26 13:04 | XMS_ITS | Encounter Summary ---
Author Organization [employer] Address [facility] [id number] [address] [place] [address] Care Team Providers Care Otr Driver Name Role Phone Orlando Ash MD Primary Care Provider [phone] Encounter Details Date Type Department Care Team (Late st Contact Info) Description 06/06/2021 Telephone [facility] Obstetrics/Gynecology [address] [place] [phone] Tory Calloway MA Social History Tobacco Use [...] documented as of this encounter Care Teams Otr Driver Relationship Specialty Start Date End Date Orlando Ash MD [address] [place] [id number] PCP - General Family Medicine 06/09/18 documented as of this encounter
--- OUTSIDE RECORDS SUMMARY | 2024-08-26 13:04 | XMS_ITS | Encounter Summary ---
Author Organization [employer] Address [facility] [place] [id number] [address] [place] [address] Care Team Providers Care Special Delivery Carrier Name Role Phone Orlando Ash MD Primary Care Provider [phone] Encounter Details Date Type Department Care Team (Late st Contact Info) Description 01/19/2024 Telephone [facility] Obstetrics[facility]Gynecology [address] [facility] [phone] Vale Spring, TRAFFIC MONITOR SPECIALIST-[facility] [address] [facility] [place] [address] Social History Tobacco Use Types Packs/Day Years [...] on filedocumented in this encounter Care Teams Special Delivery Carrier Relationship Specialty Start Date End Date Orlando Ash MD [address] [place] [address] PCP - General Family Medicine 06/09/18 documented as of this encounter
--- OUTSIDE RECORDS SUMMARY | 2024-08-26 13:06 | XMS_ITS | CCD ---
Author Organization [facility] Care Team Providers Care Foot Press Operator Name Role Phone ANN-MARIE ASH Primary Care Unavailable KARIS MARI Attending Unavailable ASH, ANN-MARIE Dc Primary Care Unavailable KOSTA LOZANO Attending Unavailable ASH, ANN-MARIE Dc Primary Care Unavailable ANN-MARIE ENGLE Attending Unavailable ASH, ANN-MARIE cD Primary Care Unavailable VARUN BARTHOLOMEW Attending Unavailable Mihir, Ann-Marie Dc Primary Care Provider TRUDY RAMAN Referring Unavailable MIHIR, ANN-MARIE Dc Primary Care Unavailable ASH, ANN-MARIE Dc Primary Care Unavailable ALEXANDRIA SIDDIQUI Attending Unavailable ASH, ANN-MARIE A Primary Care Unavailable VICTORINO SULLIVAN Attending Unavailable Ash, Ann-Marie Vanda Primary Care Provider CAROLE ., [...] Unavailable CAROLE ., DR WELCH Admitting Unavailable [place], DR CHEMA Argueta Consulting Unavailable MISC, DR GANADRA Primary Care Unavailable CAROLE ., DR WELCH [...] adverse reactions to drug (disorder) [facility] Repository Medications Current Medications Medication Drug [...] Panel Informationon 08-24 Radiology Study observation (narrative) [facility] OB BPP W NON-STRESS on 08-24-2024 [place] [address] Ultrasound Report Signed Patient: HAWK KING MR#: [id number] : 2000 Acct:[id number] Age/Sex: 23 / F ADM Date: 08/23/24 Loc: US Attending Dr: Eusebio Lam D.O. Ordering Physician: Eusebio Lam D.O. Date of Service: 08/23/24 Procedure(s): US OB BPP w non-stress Accession Number(s): [id number] cc: Eusebio Lam D.O.; Physician,Non-Staff M.Sigrid The [place] [id number] Patient Name: HAWK GRAVESN: [facility]:[id number] date: 2000 Sex: F Assigned Patient Location: [facility] Current Patient Location: Accession/Order Number: [id number] Exam Date: 08/24/2024 08:18 Report Date: 08/24/2024 [...] Hunt M.D. 08/24/2024 8:27 AM Dictation Location: [place] [address] Electronically authenticated by: [id number] Y Date: 08/24/2024 08:27 Dictated By: Jing Hunt M.D. Signed By: 08/24/24829 DD/ 6 TD/TT: Monorail Operator: [facility] Radiology, Radiologist, - 08/24/2024 [place] [address] Ultrasound Report Signed Patient: HAWK KING MR#: [id number] : 2000 Acct:[id number] Age/Sex: 23 / F ADM Date: 08/23/24 Loc: US Attending Dr: Eusebio Lam D.O. Ordering Physician: Eusebio Lam D.O. Date of Service: 08/23/24 Procedure(s): US OB BPP w non-stress Accession Number(s): [id number] cc: Eusebio Lam D.O.; Physician,Non-Staff Sindy The [place] [id number] Patient Name: HAWK KING MRN: [facility]:[id number] date: 2000 Sex: F Assigned Patient Location: [facility] Current Patient Location: Accession/Order Number: [id number] Exam Date: 08/24/2024 08:18 Report Date: 08/24/2024 [...] Hunt M.D. 08/24/2024 8:27 AM Dictation Location: [place] [address] Electronically authenticated by: [id number] Y Date: 08/24/2024 08:27 Dictated By: Jing Hunt M.D. Signed By: 08/24/24829 DD/ 6 TD/TT: Monorail Operator: [facility] [employer] US OB BPP W NON-STRESS Ordered By: Radiologist Radiology on 08-24-2024 [facility] [employer] Work Phone: US OB GROWTHon 08-24-2024 [place] [address] Ultrasound Report Signed Patient: HAWK KING MR#: [id number] : 2000 Acct:[id number] Age/Sex: 23 / F ADM Date: 08/23/24 Loc: US Attending Dr: Eusebio Lam D.O. Ordering Physician: Eusebio Lam D.O. Date of Service: 08/23/24 Procedure(s): US OB growth Accession Number(s): [id number] cc: Carole,Eusebio D.O.; Physician,Non-Staff Sindy [place] [id number] Patient Name: HAWK KING MRN: [id number] date: 2000 Sex: F Assigned Patient Location: [facility] Current Patient Location: Accession/Order Number: [id number] Exam Date: 08/24/2024 08:18 Report Date: 08/24/2024 [...] Hunt M.D. 08/24/2024 8:27 AM Dictation Location: [place] [address] Electronically authenticated by: [id number] Y Date: 08/24/2024 08:27 Dictated By: Jing Hunt M.D. Signed By: 08/24/2429 DD/ 6 TD/TT: Monorail Operator: [facility] Radiology, Radiologist, - 08/24/2024 [place] [address] Ultrasound Report Signed Patient: HAWK KING MR#: [id number] : 2000 Acct:[id number] Age/Sex: 23 / F ADM Date: 08/23/24 Loc: US Attending Dr: Eusebio Lam D.O. Ordering Physician: Eusebio Lam D.O. Date of Service: 08/23/24 Procedure(s): US OB growth Accession Number(s): [id number] cc: Eusebio Lam D.O.; Physician,Non-Staff Sindy The [place] [address] Patient Name: HAWK KING MRN: [facility]:[id number] date: 2000 Sex: F Assigned Patient Location: [facility] Current Patient Location: Accession/Order Number: [id number] Exam Date: 08/24/2024 08:18 Report Date: 08/24/2024 [...] Hunt M.D. 08/24/2024 8:27 AM Dictation Location: [place] [address] Electronically authenticated by: [id number] Y Date: 08/24/2024 08:27 Dictated By: Jing Hunt M.D. Signed By: 08/24/2429 DD/ 6 TD/TT: Monorail Operator: [facility] OB GROWTHOrdered By: Gerald ologist Radiology on 08-24-2024 [facility] Work Phone: [facility] UA (CLEAN/CATCH) [employer]ICOND[employer] PACK[employer] PLATEMAKER/IVETTE RO IF IND.on 08-22-2024 BILIRUBIN URINE Negative NEGATIVE [facility] BLOOD URINE Negative NEGATIVE [facility] Clarity (U) CLEAR CLEAR [facility] Color (U) LT. YELLOW YELLOW [facility] GLUCOSE URINE UA 100 mg/dL Abnormal NEGATIVE [facility] Interpretation and review of laboratory results Abnormal [facility] Ketones Ql (U) TRACE Abnormal NEGATIVE mg/dL [facility] Leukocyte esterase Test strip Ql (U) SMALL Abnormal NEGATIVE [facility] NITRITE URINE Negative NEGATIVE [facility] pH (U) 6.0 [pH] 5.0 - 9.0 [facility] PROTEIN URINE TRACE NEG/TRACE mg/dL [facility] SPECIFIC GRAVITY URINE 1.025 1.005 - 1.025 [facility] URINE MICROSCOPIC INDICATED YES [facility] UROBILINOGEN URINE 0.2 EU/dL 0.2 - 1.0 EU/dL [facility] OB BPP W NON-STRESS on 08-17-2024 [place] [address] Ultrasound Report Signed Patient: HAWK KING MR#: [id number] : 2000 Acct:[id number] Age/Sex: 23 / F ADM Date: 08/16/24 Loc: US Attending Dr: Eusebio Lam D.O. Ordering Physician: Eusebio Lam D.O. Date of Service: 08/16/24 Procedure(s): US OB BPP w non-stress Accession Number(s): [id number] cc: uEsebio Lam D.O.; Physician,Non-Staff M.DTaylor The [place] [address] Patient Name: HAWK KING MRN: [id number]:[id number] date: 2000 Sex: F Assigned Patient Location: [facility] [place] [facility] [place]ion/Order Number: [id number] Exam Date: 08/17/2024 10:39 Report Date: 08/17/2024 [...] Hunt M.D. 08/17/2024 10:41 AM Dictation Location: [place] [address] Electronically authenticated by: [id number] Y Date: 08/17/2024 10:41 Dictated By: Jing Hunt M.D. Signed By: 08/17/24 1044 DD/ 1041 TD/TT: Monorail Operator: [facility] Radiology, Radiologist, MD - 08/17/2024 [place] [address] Ultrasound Report Signed Patient: HAWK KING MR#: [id number] : 2000 Acct:[id number] Age/Sex: 23 / F ADM Date: 08/16/24 Loc: US Attending Dr: Eusebio Lam D.O. Ordering Physician: Eusebio Lam D.O. Date of Service: 08/16/24 Procedure(s): US OB BPP w non-stress Accession Number(s): [id number] cc: Eusebio Lam D.O.; Physician,Non-Staff Sindy The [place] [address] Patient Name: HAWK KING MRN: [facility]:[id number] date: 2000 Sex: F Assigned Patient Location: [facility] [place] [facility] [place]ion/Order Number: [id number] Exam Date: 08/17/2024 10:39 Report Date: 08/17/2024 [...] Hunt M.D. 08/17/2024 10:41 AM Dictation Location: [place] [address] Electronically authenticated by: [id number] Y Date: 08/17/2024 10:41 Dictated By: Jing Hunt M.D. Signed By: 08/17/24 1044 DD/ 1041 TD/TT: Monorail Operator: [facility] Radiology Study observation (narrative) [facility] US OB BPP W NON-STRESS Ordered By: Radiologist Radiology on 08-17-2024 [facility] Work Phone: Urinalysis macro (dipstick) panel (U)on 08-17-2024 Bilirubin, UA Negative Negative - 4(70) +++ mg/dL [facility] Blood, UA Negative Negative - 50 Jian/mcL [facility] Clarity, UA Clear [facility] Color, UA Yellow [facility] Glucose, UA Negative Negative - 1999(110) ++++ mg/dL [facility] Interpretation and review of laboratory results Abnormal [facility] Ketones, UA Negative Negative - 160(16) ++++ mg/dL [facility] Leukocytes, UA Negative Negative - 500+++ Heriberto/mcL [facility] Nitrite, UA Negative Negative - Positive [facility] pH, UA 6.5 5 - 9 [facility] Protein, UA Negative Negative - 1999(20) ++++ mg/dL [facility] Spec Grav, UA 1.02 1 - 1.03 [facility] Urobilinogen, UA 1.0 0.2 - 12 mg/dL [facility] US OB CERVICAL LENGTHon 07-0 [place] [address] Ultrasound Report Signed Patient: HAWK KING MR#: [id number] : 2000 Acct:[id number] Age/Sex: 23 / F ADM Date: 08/09/24 Loc: [facility] 250-[address]: Eusebio Lam D.O. Ordering Physician: Eusebio Lam D.O. Date of Service: 08/09/24 Procedure(s): US OB cervical length Accession Number(s): [id number] cc: Eusebio Lam D.O.; Physician,Non-Staff Sindy [address] [address] Patient Name: HAWK KING MRN: [facility]:[id number] date: 2000 Sex: F Assigned Patient Location: [facility] Current Patient Location: [facility] Accession/Order Number: [id number] Exam Date: 08/09/2024 13:32 Report Date: 08/09/2024 [...] Jr., D.O. 08/09/2024 1:33 PM Dictation Location: [place] [address] Electronically authenticated by: [id number] Y Date: 08/09/2024 13:33 Dictated By: Wojciech Farah M.D. Signed By: 08/09/24 1336 DD/ 1333 TD/TT: Monorail Operator: [facility] Radiology, Radiologist, MD - 08/09/2024 [place] [address] Ultrasound Report Signed Patient: HAWK KING MR#: [id number] : 2000 Acct:[id number] Age/Sex: 23 / F ADM Date: 08/09/24 Loc: [facility] 250-[address]: Eusebio Lam D.O. Ordering Physician: Eusebio Lam D.O. Date of Service: 08/09/24 Procedure(s): US OB cervical length Accession Number(s): [id number] cc: Eusebio Lam D.O.; Physician,Non-Staff Sindy The [address] [address] Patient Name: HAWK KING MRN: [facility]:[id number] date: 2000 Sex: F Assigned Patient Location: [facility] Current Patient Location: [facility] Accession/Order Number: [id number] Exam Date: 08/09/2024 13:32 Report Date: 08/09/2024 [...] Jr., D.O. 08/09/2024 1:33 PM Dictation Location: [place] [address] Electronically authenticated by: [id number] Y Date: 08/09/2024 13:33 Dictated By: Wojciech Farah M.D. Signed By: 08/09/24 1336 DD/ 1333 TD/TT: Monorail Operator: [facility] [employer] Radiology Study observation (narrative) [facility] US OB CERVICAL LENGTHOrdered By: Radiologist Radiology on 08-09-2024 [facility] [employer] Work Phone: US OB BPP W NON-STRESS on 08-09-2024 [place] [address] Ultrasound Report Signed Patient: HAWK KING MR#: [id number] : 2000 Acct:[id number] Age/Sex: 23 / F ADM Date: 08/09/24 Loc: US Attending Dr: Eusebio Lam D.O. Ordering Physician: Eusebio Lam D.O. Date of Service: 08/09/24 Procedure(s): US OB BPP w non-stress Accession Number(s): [id number] cc: Eusebio Lam D.O.; Physician,Non-Staff M.DTaylor [place] [address] Patient Name: HAWK KING MRN: [facility]:[id number] date: 2000 Sex: F Assigned Patient Location: [facility] Current Patient Location: Accession/Order Number: [id number] Exam Date: 08/09/2024 13:42 Report Date: 08/09/2024 13:42 At the request of: EUSEBIO LAM DO Procedure: US OB BPP w non-stress Biophysical profile. Reason for exam: Large for dates. COMPARISON: BPP 08/02/2024. TECHNIQUE: Transabdominal imaging of the gravid uterus was obtained. FINDINGS: Water Conservation Specialist reports a BPP of 8 out of 8. DALTON is normal at 17.9 cm. heart rate 167 bpm. US/US OB BPP w non-stress Impression: BPP 8 out of 8. Impression dictated by: Wojciech Farah Jr. DTaylorOTaylor 08/09/2024 1:42 PM Dictation Location: [place] [address] Electronically authenticated by: [id number] Y Date: 08/09/2024 13:42 Dictated By: Wojciech Farah M.D. Signed By: 08/09/24 1345 DD/ 41 TD/TT: Monorail Operator: [facility] Radiology, Radiologist, - 08/09/2024 [place] [address] Ultrasound Report Signed Patient: HAWK KING MR#: [id number] : 2000 Acct:[id number] Age/Sex: 23 / F ADM Date: 08/09/24 Loc: US Attending Dr: Eusebio Lam D.O. Ordering Physician: Eusebio Lam D.O. Date of Service: 08/09/24 Procedure(s): US OB BPP w non-stress Accession Number(s): [id number] cc: Eusebio Lam D.O.; Physician,Non-Staff Sindy The [place] [address] Patient Name: HAWK KING MRN: [facility]:[id number] date: 2000 Sex: F Assigned Patient Location: [facility] Current Patient Location: Accession/Order Number: [id number] Exam Date: 08/09/2024 13:42 Report Date: 08/09/2024 13:42 At the request of: EUSEBIO LAM DO Procedure: US OB BPP w non-stress Biophysical profile. Reason for exam: Large for dates. COMPARISON: BPP 08/02/2024. TECHNIQUE: Transabdominal imaging of the gravid uterus was obtained. FINDINGS: Water Conservation Specialist reports a BPP of 8 out of 8. DALTON is normal at 17.9 cm. heart rate 167 bpm. US/US OB BPP w non-stress Impression: BPP 8 out of 8. Impression dictated by: Wojciech Farah Jr., D.O. 08/09/2024 1:42 PM Dictation Location: [place] [address] Electronically authenticated by: [id number] Y Date: 08/09/2024 13:42 Dictated By: Wojciech Farah M.D. Signed By: 08/09/24 1343 DD/ 1342 TD/TT: Monorail Operator: [facility] Radiology Study observation (narrative) [facility] US OB BPP W NON-STRESS Ordered By: Radiologist Radiology on 08-09-2024 [facility] Work Phone: Urinalysis macro (dipstick) panel (U)on 08-09-2024 Bilirubin, UA Negative Negative - 4(70) +++ mg/dL [facility] Blood, UA Negative Negative - 50 Jian/mcL [facility] Clarity, UA Clear [facility] Color, UA Yellow [facility] Glucose, UA Negative Negative - 2000(110) ++++ mg/dL [facility] Interpretation and review of laboratory results Normal [facility] Ketones, UA Negative Negative - 160(16) ++++ mg/dL [facility] Leukocytes, UA Negative Negative - 500+++ Heriberto/mcL [facility] Nitrite, UA Negative Negative - Positive [facility] pH, UA 7 5 - 9 [facility] Protein, UA Negative Negative - 1999(20) ++++ mg/dL [facility] Spec Grav, UA 1.015 1 - 1.03 [facility] Urobilinogen, UA 0.2 0.2 - 12 mg/dL [facility] No Panel InformationOrdered By: Radiologist Radiology on 08-03-2024 [facility] Work Phone: No Panel Informationon 08-03 Radiology Study observation (narrative) [facility] US OB BPP W NON-STRESS on 08-03-2024 [place] [address] Ultrasound Report Signed Patient: HAWK KING MR#: [id number] : 2000 Acct:[id number] Age/Sex: 23 / F ADM Date: 08/02/24 Loc: US Attending Dr: Eusebio Lam D.O. Ordering Physician: Eusebio Lam D.O. Date of Service: 08/02/24 Procedure(s): US OB BPP w non-stress Accession Number(s): [id number] cc: Eusebio Lam D.O.; Physician,Non-Staff Sindy The [address] [address] Patient Name: HAWK KING MRN: [id number]:[id number] date: 2000 Sex: F Assigned Patient Location: [facility] Current Patient Location: Accession/Order Number: [id number] Exam Date: 08/03/2024 08:23 Report Date: 08/03/2024 08:32 At the request of: EUSEBIO LAM DO Procedure: US OB BPP w non-stress CLINICAL INFORMATION: H/O LABOR O09.899 ULTRASOUND OB GROWTH COMPARISON: None There is a single live intrauterine gestation in cephalic presentation. There is cardiac and somatic activity. The heart rate itpuqznt101 beats per minute. The placenta is posterior. [...] Hunt M.D. 08/03/2024 8:32 AM Dictation Location: [place] [address] Electronically authenticated by: [id number] Y Date: 08/03/2024 08:32 Dictated By: Jing Hunt M.D. Signed By: 08/03/2435 DD/ 1 TD/TT: Monorail Operator: [facility] Radiology, Radiologist, - 08/03/2024 [place] [address] Ultrasound Report Signed Patient: HAWK KING MR#: [id number] : 2000 Acct:[id number] Age/Sex: 23 / F ADM Date: 08/02/24 Loc: US Attending Dr: Eusebio Lam D.O. Ordering Physician: Eusebio Lam D.O. Date of Service: 08/02/24 Procedure(s): US OB BPP w non-stress Accession Number(s): [id number] cc: Eusebio Lam D.O.; Physician,Non-Staff Sindy The [place] [address] Patient Name: HAWK KING MRN: [facility]:[id number] date: 2000 Sex: F Assigned Patient Location: [facility] Current Patient Location: Accession/Order Number: [id number] Exam Date: 08/03/2024 08:23 Report Date: 08/03/2024 [...] Hunt M.D. 08/03/2024 8:32 AM Dictation Location: [place] [address] Electronically authenticated by: [id number] Y Date: 08/03/2024 08:32 Dictated By: Jing Hunt M.D. Signed By: 08/03/24 0835 DD/ 0832 TD/TT: Monorail Operator: [facility] OB GROWTHon 08-03-[address] [address] Ultrasound Report Signed Patient: HAWK KING MR#: [id number] : 2000 Acct:[id number] Age/Sex: 23 / F ADM Date: 08/02/24 Loc: US Attending Dr: Eusebio Lam D.O. Ordering Physician: Eusebio Lam D.O. Date of Service: 08/02/24 Procedure(s): US OB growth Accession Number(s): [id number] cc: Eusebio Lam D.O.; Physician,Non-Staff Sindy The [employer] [place] [address] Patient Name: HAWK KING MRN: [facility]:[id number] date: 2000 Sex: F Assigned Patient Location: [facility] Current Patient Location: Accession/Order Number: [id number] Exam Date: 08/03/2024 08:23 Report Date: 08/03/2024 08:32 At the request of: EUSEBIO LAM DO Procedure: US OB BPP w non-stress CLINICAL INFORMATION: H/O LABOR O09.899 ULTRASOUND OB GROWTH COMPARISON: None There is a single live intrauterine gestation in cephalic presentation. There is cardiac and somatic activity. The heart rate [id number] beats per minute. The placenta is posterior. [...] Hunt M.D. 08/03/2024 8:32 AM Dictation Location: [facility] Electronically authenticated by: [id number] Y Date: 08/03/2024 08:32 Dictated By: Jing Hunt M.D. Signed By: 08/03/2435 DD/ 1 TD/TT: Monorail Operator: [facility] Radiology, Radiologist, - 08/03/2024 [place] [address] Ultrasound Report Signed Patient: HAWK KING MR#: [id number] : 2000 Acct:[id number] Age/Sex: 23 / F ADM Date: 08/02/24 Loc: US Attending Dr: Eusebio Lam D.O. Ordering Physician: Eusebio Lam D.O. Date of Service: 08/02/24 Procedure(s): US OB growth Accession Number(s): [id number] cc: Eusebio Lam D.O.; Physician,Non-Staff Sindy The [place] [address] Patient Name: HAWK KING MRN: [facility]:[id number] date: 2000 Sex: F Assigned Patient Location: [facility] Current Patient Location: Accession/Order Number: [id number] Exam Date: 08/03/2024 08:23 Report Date: 08/03/2024 08:32 At the request of: EUSEBIO LAM DO Procedure: US OB BPP w non-stress CLINICAL INFORMATION: H/O LABOR O09.899 ULTRASOUND OB GROWTH COMPARISON: None There is a single live intrauterine gestation in cephalic presentation. There is cardiac and somatic activity. The heart rate [id number] beats per minute. The placenta is posterior. [...] Hunt M.D. 08/03/2024 8:32 AM Dictation Location: [place] [address] Electronically authenticated by: [id number] Y Date: 08/03/2024 08:32 Dictated By: Jing Hunt M.D. Signed By: 08/03/24 0835 DD/ 0832 TD/TT: Monorail Operator: [facility] MLR HEMOGLOBIN A1Con 025 Glucose [Mass/Vol] 91 mg/dL [facility] HbA1c (Bld) [Mass fraction] 4.8 % 4.5 - 6.2 % [facility] Comment on above: ADA RECOMMENDED LIMI T 4.0 - 6.0 ADA THERAPEUTIC TARGET < 7.0 ACTION SUGGESTED > 7.0 [facility] Urinalysis macro (dipstick) panel (U)on 07-26-2024 Bilirubin, UA Negative Negative - 4(70) +++ mg/dL [facility] Blood, UA Negative Negative - 50 Jian/mcL [facility] Clarity, UA Clear [facility] Color, UA Yellow [facility] Glucose, UA Negative Negative - 2000(110) ++++ mg/dL [facility] Interpretation and review of laboratory results Abnormal [facility] Ketones, UA Negative Negative - 160(16) ++++ mg/dL [facility] Leukocytes, UA Positive Negative - 500+++ Heriberto/mcL [facility] Comment on above: small Nitrite, UA Negative Negative - Positive [facility] pH, UA 1 5 - 9 [facility] Protein, UA Positive Negative - 2000(20) ++++ mg/dL [facility] Comment on above: 30mg/dL Spec Grav, UA 1.02 1 - 1.03 [facility] Urobilinogen, UA 2.0 0.2 - 12 mg/dL [facility] US OB FOLLOW UP TRANSABDOMIN AL [...] II, MD, PHD at 30-Jun-2024 12:16:48 PM [employer] [place] [facility] Normal Not Available Comment on above: Order Comment: US OB SCAN FOR GROWTH Estimated Date of Delivery: 09/21/24 Gestational Age as of 06/13/2024: 25w5d Urinalysis macro (dipstick) panel (U)on 06-28-2024 Bilirubin, UA Negative Negative - 4(70) +++ mg/dL [facility] Blood, UA Negative Negative - 50 Jian/mcL [facility] Clarity, UA Clear [facility] Color, UA Yellow [facility] Glucose, UA Negative Negative - 1999(110) ++++ mg/dL [facility] Interpretation and review of laboratory results Normal [facility] Ketones, UA Negative Negative - 160(16) ++++ mg/dL [facility] Leukocytes, UA Negative Negative - 500+++ Heriberto/mcL [facility] Nitrite, UA Negative Negative - Positive [facility] pH, UA 7 5 - 9 [facility] Protein, UA Negative Negative - 1999(20) ++++ mg/dL [facility] Spec Grav, UA 1.02 1 - 1.03 [facility] Urobilinogen, UA 0.2 0.2 - 12 mg/dL [facility] IGP,APTIMA HPV,AGE GDLNon AGE GDLN ACOG TESTING Note . [facility] Comment on above: TESTS RESULT FLAG UN ITS REF RANGE LAB Clinician Provided Cytology Information Source.............Cervix Other.............. No. of containers..01 ThinPrep Vial Age Algo ACOG Memo... FLAG LEGEND: L-Low Normal,H-High Normal,LL-Alert Low,HH-Alert High <-Panic Low,>-Panic High,A-Abnormal,AA-Critical Abnormal Performed at: 01 =G [facility] [place] [address] [facility] [place] [address] Katie Lopez MD, IGP, RFX APTIMA HPV ASCU Note . [facility] Comment on above: TESTS RESULT FLAG UN ITS REF RANGE LAB DIAGNOSIS: 02 NEGATIVE FOR INTRAEPITHELIAL LESION OR MALIGNANCY. Specimen adequacy: 02 Satisfactory for evaluation. Endocervical and/or squamous metaplastic cells (endocervical component) are present. Performed by: 02 Radha Cruz, Health And Safety Technician ([facility]) . 02 Note: Note 03 [...] High,A-Abnormal,AA-Critical Abnormal Performed at: 02 [facility] [place] [facility] [address] [place] [id number] Fer Mehta MD, [address] [address] Katie Lopez MD, Performed at: = - [facility] [id number] Cable Maker: Katie Lopez MD, Phone: [phone] Performed at: [facility] [address] [address] [place], [place] [id number] Cable Maker: Fer Mehta MD, Phone: [phone] [facility] RECURRENT VAGINITIS (HTRX)on 05-17-2024 ATOPOBIUM VAGINAE 19.357 [...] UA Negative Negative - 4(70) +++ mg/dL [facility] Blood, UA Negative Negative - 50 Jian/mcL [facility] Clarity, UA Clear [facility] Color, UA Yellow [facility] Glucose, UA Negative Negative - 2000(110) ++++ mg/dL [facility] Interpretation and review of laboratory results Abnormal [facility] Ketones, UA Negative Negative - 160(16) ++++ mg/dL [facility] Leukocytes, UA Trace Negative - 500+++ Heriberto/mcL [facility] Nitrite, UA Negative Negative - Positive [facility] pH, UA 7 5 - 9 [facility] Protein, UA Negative Negative - 2000(20) ++++ mg/dL [facility] Spec Grav, UA 1.02 1 - 1.03 [facility] Urobilinogen, UA 0.2 0.2 - 12 mg/dL [facility] US OB 14+ WEEKS ANATOMY SCAN [...] II, MD, PHD at 09-May-2024 09:57:06 AM [facility] Teleradiology Normal Not Available Comment on above: Order Comment: US OB ANATOMY SINGLE W US OB CERVICAL LENGTH Estimated Date of Delivery: 09/21/24 Gestational Age as of 04/17/2024: 17w4d Urinalysis macro (dipstick) panel (U)Ordered By: Allegra Wallis on 04-17-2024 Bilirubin, UA Negative Negative - 4(70) +++ mg/dL [facility] Blood, UA Negative Negative - 50 Jian/mcL [facility] Clarity, UA Clear [facility] Color, UA Yellow [facility] Glucose, UA Negative Negative - 1999(110) ++++ mg/dL [facility] Interpretation and review of laboratory results Abnormal [facility] Ketones, UA Negative Negative - 160(16) ++++ mg/dL [facility] Leukocytes, UA Positive Negative - 500+++ Heriberto/mcL [facility] Comment on above: small Nitrite, UA Negative Negative - Positive [facility] pH, UA 7.5 5 - 9 [facility] Protein, UA Trace Negative - 1999(20) ++++ mg/dL [facility] Spec Grav, UA 1.02 1 - 1.03 [facility] Urobilinogen, UA 1.0 0.2 - 12 mg/dL [facility] BOX TESTon 02-29-2024 [address] OUT [facility] BOX1 [facility] BOX2 02/29/2024 [facility] BOX TESTon 02-18-2024 [address] OUT [facility] BOX1 [facility] BOX2 02/18/24 [facility] US PREG LESS THAN 14 WKS SIN GLEon 02-11-2024 US PREG LESS THAN 14 WKS SINGLE US PREG LESS THAN 14 WKS SINGLE Pelvic ultrasound History:Dates viability Comparison:None Findings: Single live IUP at 8 weeks 2 days. [place]-rump length 2.1 cm. Yolk sac visualized. Heart [...] Thomas MD on 02/11/2024 11:[address] [facility] US PREG LESS THAN 14 WKS [...] with cardiac activity 101 beats per minute. [place]-rump length of 2.6 mm corresponds to 5 [...] Roque MD on 01/26/2024 12:[address] [facility] ACUTE HEPATITIS PANELon 01-08 ANTI HCV W/PCR REFLX Non-Reactive Normal NRCT [facility] Comment on above: Result Comment: NEW TEST METHOD NOTE If recent infection suspected, recommend repeat testing (>2 months). Zbqogk-wg-cgjknz ratio is <1.00. Performed By: #### C BC, CMP, 2532-0, 3084-1, 21522-9, 89096-3, AHP, 86855-1, 16927-7, 53715-2 #### [facility] ([id number]) [address], [address] [place] [address] HEPATITIS A IGM Non-Reactive Normal NRCT [facility] Comment on above: Result Comment: NEW TEST METHOD Performed By: #### C BC, CMP, 2532-0, 3084-1, 63205-1, 40782-3, AHP, 16521-5, 43738-5, 14561-1 #### [facility] ([id number]) [address], [address] [place] [address] HEPATITIS B CORE IGM Non-Reactive Normal NRCT [facility] Comment on above: Result Comment: NEW TEST METHOD Performed By: #### C BC, CMP, 2532-0, 3084-1, 35405-2, 59142-7, AHP, 95168-0, 81810-6, 12118-1 #### [facility] ([id number]) [address], [address] [place] [address] HEPATITIS B SURF AG Non-Reactive Normal NRCT [facility] Comment on above: Result Comment: NEW TEST METHOD Performed By: #### C BC, CMP, 2532-0, 3084-1, 30798-0, 53310-6, AHP, 59087-1, 44545-1, 00476-2 #### [facility] ([id number]) [address], [address] [place] [address] COMPLETE BLOOD COUNTon 01-18 Erythrocyte distribution width (RBC) [Ratio] 13.2 % Normal 11.5-15.[address] [facility] Comment on above: Performed By: #### C BC, CMP, 2532-0, 3084-1, 19021-1, 09483-0, AHP, 59635-8, 13031-5, 86035-1 #### [facility] ([id number]) [address], [address] [place] [address] Hematocrit (Bld) [Volume fraction] 41.8 % Normal 35-[address] [facility] Comment on above: Performed By: #### C BC, CMP, 2532-0, 3084-1, 43441-2, 46230-9, AHP, 12123-8, 56153-6, 27239-2 #### [facility] ([id number]) [address], [address] [place] [address] Hemoglobin (Bld) [Mass/Vol] 14.3 g/dL Normal 11.7-15.[address] [facility] Comment on above: Performed By: #### C BC, CMP, 2532-0, 3084-1, 11165-1, 59067-3, AHP, 97104-9, 61524-2, 23549-8 #### [facility] ([id number]) [address], [address] [place] [address] MCH (RBC) [Entitic mass] 31.7 pg Normal 27-[address] [facility] Comment on above: Performed By: #### C BC, CMP, 2532-0, 3084-1, 92624-0, 28329-5, AHP, 00495-6, 87509-8, 53627-6 #### [facility] ([id number]) [address], [address] [place] [address] MCHC (RBC) [Mass/Vol] 34.3 g/dL Normal 32-36 [facility] Comment on above: Performed By: #### C BC, CMP, 2532-0, 3084-1, 33433-1, 88129-5, AHP, 41350-0, 79153-9, 84525-1 #### [facility] ([id number]) [address], [address] [place] [address] MCV (RBC) [Entitic vol] 92 fL Normal 80-[address] [facility] Comment on above: Performed By: #### C BC, CMP, 2532-0, 3084-1, 52699-7, 50605-8, AHP, 50118-6, 32003-5, 35153-8 #### [facility] ([id number]) [address], [address] [place] [address] Platelet mean volume (Bld) [Entitic vol] 8.8 fL Normal 7-[address] [facility] Comment on above: Performed By: #### C BC, CMP, 2532-0, 3084-1, 46438-6, 18335-6, AHP, 12415-3, 14185-6, 04034-0 #### [facility] ([id number]) [address], [address] [place] [address] Platelets (Bld) [#/Vol] 238 10*3/uL Normal 150-[address] [facility] Comment on above: Performed By: #### C BC, CMP, 2532-0, 3084-1, 93079-2, 71312-7, AHP, 09492-5, 93055-9, 08640-9 #### [facility] ([id number]) [address], [address] [place] [address] RBC COUNT 4.52 X10E12/L Normal 3.80-5.[address] [facility] Comment on above: Performed By: #### C BC, CMP, 2532-0, 3084-1, 31495-2, 09809-1, AHP, 86116-3, 63951-6, 02477-2 #### [facility] ([id number]) [address], [address] [place] [address] WBC (Bld) [#/Vol] 5.0 10*3/uL Normal 4.0-11.0 [facility] Comment on above: Performed By: #### C BC, CMP, 2532-0, 3084-1, 87193-9, 94857-3, AHP, 04705-3, 60129-3, 62787-9 #### [facility] ([id number]) [address], [address] [place] [address] COMPREHENSIVE METABOLIC PANE Eric 01-19-2024 Albumin [Mass/Vol] 4.4 g/dL Normal 3.2-5.3 [facility] Comment on above: Performed By: #### C BC, CMP, 2532-0, 3084-1, 05930-9, 81344-6, AHP, 96276-1, 08922-3, 36869-1 #### [facility] ([id number]) [address], [address] [place] [address] ALP [Catalytic activity/Vol] 42 U/L Normal 39-[address] [facility] Comment on above: Performed By: #### C BC, CMP, 2532-0, 3084-1, 68376-9, 94210-1, AHP, 79012-0, 55022-4, 96200-4 #### [facility] ([id number]) [address], [address] [place] [address] ALT [Catalytic activity/Vol] 17 U/L Normal 0-[address] [facility] Comment on above: Performed By: #### C BC, CMP, 2532-0, 3084-1, 65977-4, 97384-9, AHP, 58808-6, 33811-9, 01299-4 #### [facility] ([id number]) [address], [address] [place] [address] Anion gap [Moles/Vol] 9 mmol/L Normal 5-15 [facility] Comment on above: Performed By: #### C BC, CMP, 2532-0, 3084-1, 44018-4, 08570-6, AHP, 94409-9, 87364-4, 92376-3 #### [facility] ([id number]) [address], [address] [place] [address] AST [Catalytic activity/Vol] 17 U/L Normal 0-[address] [facility] Comment on above: Performed By: #### C BC, CMP, 2532-0, 3084-1, 11736-4, 66599-8, AHP, 25293-1, 54865-6, 61449-5 #### [facility] ([id number]) [address], [address] [place] [address] Bilirubin [Mass/Vol] 0.6 mg/dL Normal 0.3-1.2 [facility] Comment on above: Performed By: #### C BC, CMP, 2532-0, 3084-1, 35635-2, 38303-8, AHP, 87003-0, 44591-6, 85750-3 #### [facility] ([id number]) [address], [address] [place] [address] Calcium [Mass/Vol] 8.9 mg/dL Normal 8.5-10.5 [facility] Comment on above: Performed By: #### C BC, CMP, 2532-0, 3084-1, 73675-8, 53204-9, AHP, 77108-2, 41867-3, 96734-7 #### [facility] ([id number]) [address], [address] [place] [address] Chloride [Moles/Vol] 104 mmol/L Normal 98-109 [facility] Comment on above: Performed By: #### C BC, CMP, 2532-0, 3084-1, 90910-0, 47347-6, AHP, 36756-8, 68043-0, 74367-3 #### [facility] ([id number]) [address], [address] [place] [address] CO2 [Moles/Vol] 28 mmol/L Normal 22-[address] [facility] Comment on above: Performed By: #### C BC, CMP, 2532-0, 3084-1, 42726-1, 20983-3, AHP, 87589-5, 35556-8, 79973-3 #### [facility] ([id number]) [address], [address] [place] [address] Creatinine [Mass/Vol] 0.68 mg/dL Normal 0.40-1.00 [facility] Comment on above: Result Comment: METH OD TRACEABLE TO IDMS STANDARD Performed By: #### C BC, CMP, 2532-0, 3084-1, 41222-9, 32269-9, AHP, 87154-7, 44704-4, 04302-9 #### [facility] ([id number]) [address], [address] [place] [address] eGFR (CKD-EPI) NON-RACE DEPENDENT >90 Normal >[address] [facility] Comment on above: Result Comment: Reported eGFR is based on the CKD-EPI 2020 equation that does not use a race coefficient. Performed By: #### C BC, CMP, 2532-0, 3084-1, 05245-6, 24117-0, AHP, 38488-7, 63159-7, 81118-9 #### [facility] ([id number]) [address], [address] [place] [address] Glucose [Mass/Vol] 84 mg/dL Normal 65-99 [facility] Comment on above: Performed By: #### C BC, CMP, 2532-0, 3084-1, 73765-3, 92576-2, AHP, 29321-6, 95855-5, 97067-2 #### [facility] ([id number]) [address], [address] [place] [address] Potassium [Moles/Vol] 3.4 mmol/L Low 3.5-5.0 [facility] Comment on above: Performed By: #### C BC, CMP, 2532-0, 3084-1, 52145-9, 21688-9, AHP, 46299-5, 48299-7, 62019-5 #### [facility] ([id number]) [address], [address] [place] [address] Protein [Mass/Vol] 7.0 g/dL Normal 6.0-8.0 [facility] Comment on above: Performed By: #### C BC, CMP, 2532-0, 3084-1, 82311-3, 88415-1, AHP, 33491-4, 08185-7, 39283-5 #### [facility] ([id number]) [address], [address] [place] [address] Sodium [Moles/Vol] 141 mmol/L Normal 134-146 [facility] Comment on above: Performed By: #### C BC, CMP, 2532-0, 3084-1, 46133-2, 43290-0, AHP, 01274-7, 98283-3, 62739-0 #### [facility] ([id number]) [address], [address] [place] [address] Urea nitrogen [Mass/Vol] 9 mg/dL Normal 5-[address] [facility] Comment on above: Performed By: #### C BC, CMP, 2532-0, 3084-1, 28480-2, 79916-9, AHP, 26789-2, 68015-7, 69162-5 #### [facility] ([id number]) [address], [address] [place] [address] Creatinine (U) [Mass/Vol]on 01-19-2024 URINE CREATININE,RDM 153.52 mg/dL Normal [facility] Comment on above: Performed By: #### 6 556-5 #### [facility] ([id number]) [address] [place] [address], [place] [address] DRUG SCREEN, URINEon 024 AMPHETAMINE/METHAMP Negative Normal NEG [facility] Comment on above: Result Comment: AMPH /METH screening cut off = 1000 ng/mL Performed By: #### 6 556-5 #### [facility] ([id number]) [address] [place] [address] BARBITURATES Negative Normal NEG [facility] Comment on above: Result Comment: Basilia iturates screening cut off value = 200 ng/mL Performed By: #### 6 556-5 #### [facility] ([id number]) [address] [place] [address] BENZODIAZEPINES Negative Normal NEG [facility] Comment on above: Result Comment: Miguelangel odiazepines screening cut off value = 200 ng/mL Performed By: #### 6 556-5 #### [facility] ([id number]) [address] [place] [address] CANNABINOIDS Positive Abnormal NEG [facility] Comment on above: Result Comment: Conf irmation available upon request. Cannabinoids/THC screening cut off value = 50 ng/mL Performed By: #### 6 556-5 #### [facility] ([id number]) [address] [place] [address] COCAINE METABOLITE Negative Normal NEG [facility] Comment on above: Result Comment: Coca ine screening cut off value = 300 ng/mL Performed By: #### 6 556-5 #### [facility] ([id number]) [address] [place] [address] ECSTASY Negative Normal NEG [facility] Comment on above: Result Comment: Ecst asy screening cut off value = 500 ng/mL This report is intended for use in clinical monitoring or management of patients. Performed By: #### 6 556-5 #### [facility] ([id number]) [address] [place] [address] METHADONE Negative Normal NEG [facility] Comment on above: Result Comment: Meth adone screening cut off value = 300 ng/mL. Performed By: #### 6 556-5 #### [facility] ([id number]) [address] [place] [address] OPIATES Negative Normal NEG [facility] Comment on above: Result Comment: Opia memo screening cut off value = 300 ng/mL NOTE: This test is used for the detection of codeine, hydrocodone (>1000 ng/mL), morphine and hydromorphone (>900 ng/mL) in urine. Performed By: #### 6 556-5 #### [facility] ([id number]) [address] [place] [address] OXYCODONE Negative Normal NEG [facility] Comment on above: Result Comment: Oxyc odone screening cut off value = 300 ng/mL NOTE: This test is used for the detection of oxycodone and oxymorphone in urine. Performed By: #### 6 556-5 #### [facility] ([id number]) [address] [place] [address] PHENCYCLIDINE Negative Normal NEG [facility] Comment on above: Result Comment: Phen cyclidine screening cut off value = 25 ng/mL Performed By: #### 6 556-5 #### [facility] ([id number]) [address] [place] [address] HCG.beta subunit IA 3rd IS Q non 01-19-2024 HCG.beta subunit Qn 6499 m[IU]/mL Normal [facility] Comment on above: Result Comment: [...] By: #### C BC, CMP, 2532-0, 3084-1, 54645-1, 02962-7, AHP, 49735-6, 80031-8, 82826-4 #### [facility] ([id number]) [address], [address] [place] [address] HIV 1+2 Ab+HIV1 p24 Ag IA Ql on 01-19-2024 HIV 1 and 2 Ab/Ag Screen Non-Reactive Normal NRCT [facility] Comment on above: Result Comment: NEW [...] By: #### C BC, CMP, 2532-0, 3084-1, 57404-5, 81351-6, AHP, 51047-8, 82651-8, 35423-1 #### [facility] ([id number]) [address], [address] [place] [address] LDH [Catalytic activity/Vol] on 01-19-2024 LDH 163 U/L Normal 100-[address] [facility] Comment on above: Performed By: #### C BC, CMP, 2532-0, 3084-1, 71588-6, 88941-5, AHP, 65794-3, 80705-3, 91824-5 #### [facility] ([id number]) [address] [facility] [place] [address] PROTEIN CREAT RATIOon 2023 RANDOM URINE PROTEIN 100 mg/L Normal <120 [facility] Comment on above: Performed By: #### 6 556-5 #### [facility] ([id number]) [address] [place] [address] U/PRO/HAND SPINNER RATIO CALC 0.06 Normal <0.2 [facility] Comment on above: Result Comment: Neph rotic Syndrome is associated with ratios >3.5 Performed By: #### 6 556-5 #### [facility] ([id number]) [address] [place] [address] URINE CREATININE,RDM 155.31 mg/dL Normal [facility] Comment on above: Performed By: #### 6 556-5 #### [facility] ([id number]) [address] [place] [address] Rubella virus Ab Ql (S)on RUBELLA IMMUNE IgG 2.5 AI Normal [facility] Comment on above: Result Comment: Interpretation-------- <0.8 NEGATIVE-considered Not Immune 0.8-0.9 EQUIVOCAL-consider retesting with new specimen >0.9 POSITIVE-considered Immune Performed By: #### 6 556-5 #### [facility] ([id number]) [address] [place] [address] T. pallidum IgG+IgM IA Ql (S )on 01-19-2024 Syphilis Total 0.8 AI Normal 0.0-0.[address] [facility] Comment on above: Result Comment: NON REACTIVE No serologic evidence of infection to Treponema pallidum (syphilis). Repeat testing may be considered in patients with suspected acute or primary syphilis in 2 to 4 weeks. Performed By: #### 6 556-5 #### [facility] ([id number]) [address] [place] [address] URIC ACIDon 01-19-2024 Urate [Mass/Vol] 2.1 mg/dL Low 2.6-7.2 [facility] Comment on above: Performed By: #### C BC, CMP, 2532-0, 3084-1, 38752-4, 58282-8, AHP, 93605-8, 09508-0, 13265-6 #### [facility] ([id number]) [address], [address] [place] [address] URINALYSISon 01-19-2024 Bilirubin Ql (U) Negative Normal NEG [facility] Comment on above: Performed By: #### U A #### [facility] ([id number]) [address] [place] [address], [address] [place] [address] BLOOD/HGB Negative Normal NEG [facility] Comment on above: Performed By: #### U A #### [facility] ([id number]) [address] [place] [address], [address] [place] [address] Color (U) YELLOW Normal YELLOW [facility] Comment on above: Performed By: #### U A #### [facility] ([id number]) [address] [place] [address], [address] [place] [address] Glucose Ql (U) Negative Normal NEG [facility] Comment on above: Performed By: #### U A #### [facility] ([id number]) [facility] [address] [place] [address] Ketones Ql (U) Negative Normal NEG [facility] Comment on above: Performed By: #### U A #### [facility] ([id number]) [address] [place] [address], [address] [place] [address] Leukocyte esterase Test strip Ql (U) Negative Normal NEG [facility] Comment on above: Performed By: #### U A #### [facility] ([id number]) [address] [place] [address], [address] [place] [address] MUCOUS PRESENT Abnormal NONE [facility] Comment on above: Performed By: #### U A #### [facility] ([id number]) [address], [address] [place] [address] Nitrite Ql (U) Negative Normal NEG [facility] Comment on above: Performed By: #### U A #### [facility] ([id number]) [address], [address] [place] [address] pH (U) 6.5 [pH] Normal 5.0-8.[address] [facility] Comment on above: Performed By: #### U A #### [facility] ([id number]) [address], [address] [place] [address] Protein Ql (U) Trace Abnormal NEG [facility] Comment on above: Performed By: #### U A #### [facility] ([id number]) [address], [address] [place] [address] R.B.CELLS 1 /hpf Normal 0-[address] [facility] Comment on above: Performed By: #### U A #### [facility] ([id number]) [address], [address] [place] [address] Specific gravity (U) [Rel density] 1.017 Normal 1.003-1.[address] [facility] Comment on above: Performed By: #### U A #### [facility] ([id number]) [address], [address] [place] [address] SQUAMOUS EPITHELIUM 8 /hpf High 0-5 [facility] Comment on above: Performed By: #### U A #### [facility] ([id number]) [address], [address] [place] [address] TURBIDITY HAZY Abnormal CLEAR [facility] Comment on above: Performed By: #### U A #### [facility] ([id number]) [address], [address] [place] [address] Urobilinogen (U) [Mass/Vol] mg/dL Normal <1.[address] [facility] Comment on above: Performed By: #### U A #### [facility] ([id number]) [address], [address] [place] [address] W.B.CELLS 2 /hpf Normal 0-[address] [facility] Comment on above: Performed By: #### U A #### [facility] ([id number]) [address], [address] [place] [address] URINE CULTUREon 01-19-2024 Bacteria identified Cx Nom (U) CULTURE RESULTS NO GROWTH AT <1000 CFU/mL Normal [facility] Comment on above: Performed By: #### 6 556-5 #### [facility] ([id number]) [address] [place] [address] VZV IgG IA Ql (S)on 01-19-20 24 VARICELLA IgG 0.2 AI Normal <0.[address] [facility] Comment on above: Result Comment: Interpretation-------- <0.9 Negative 0.9 - 1.0 Equivocal >1.0 Positive Performed By: #### 6 556-5 #### [facility] ([id number]) [address] [place] [address] ABORhon 01-11-2024 ABO and Rh group Nom (Bld) Hx Check: Not Found Anti-A: 4+ Anti-B: 0 Anti-D: 4+ DCon: NT A1: 0 B: 4+ ABORh Interp: A POS Invalid Interpretation Code [facility] Comment on above: Performed By: #### 1 [id number], [id number] #### [facility] (DEFAULT) [address] [place] [address] ABORh Retypeon 01-11-2024 ABO and Rh group Nom (Bld) Ordered by Discern. Anti-A: 4+ Anti-B: 0 Anti-D: 4+ DCon: NT A1: 0 B: 4+ ABORh Retype: A POS Invalid Interpretation Code [facility] Comment on above: Performed By: #### 1 [id number], [id number] #### [facility] (DEFAULT) [address] [place] [id number] ED Clinical Summaryon 2023 ED Clinical Summary [facility] - Emergency Department [address] [place] [id number] ED Clinical Summary PERSON INFORMATION Name: HAWK KING Age: 23 Years Sex: FEMALE : 2000 MRN: Acct#: Visit Reason: Test; PREGANT, WANT TEST DONE, SPOTTING BLOOD Arrival: 01/11/2024 10:11:43 Discharge: 01/11/2024 11:59:00 LOS: 000 01:48 Check In: 01/11/2024 10:11:43 Checkout:01/11/2024 11:59:00 Address: [address] [place] [id number] PCP: ANN-MARIE ASH MD PROVIDER INFORMATION Provider [...] Home PATIENT EDUCATION INFORMATION Instructions: Bacterial Vaginosis, Tthw-[id number] Follow-Up: With: Address: When: ANN-MARIE ASH MD [address] [place] [id number] Within 3 to 5 days DIAGNOSIS: 1:Vaginal bleeding during ; 2:Bacterial vaginosis in ; 3:; Other specified bacterial agents as the cause of diseases classified elsewhere Patient Understands: Yes - Patient/family/caregi john verbalizes understanding of instructions given Comment: [facility] ED Note-Nursingon 01-11-2024 ED Note-Nursing [...] LMP 2023. Dr. Laguerre in for exam. [facility] ED Patient Summaryon 024 ED Patient Summary [facility] - Emergency Department [address] [place] [address] PATIENT DISCHARGE INSTRUCTIONS Patient Information Name: HAWK [...] of diseases classified elsewhere (B96.89) (Z34.90) Test ([id number]) Vaginal bleeding during (O46.90) The Pharmacy at [facility] is open Wednesday through Wednesday from [...] alcohol and/or drug addiction problems; contact the [facility] 31/08 Crisis Hotline -Text 4HVAW to [phone]. If you received any narcotics, sedation, or [...] Address: When: MIHIR DEL VALLE, ANN-MARIE Dc [address] [place] [address] [phone] Within 3 to 5 days Medication Information: The exam and treatment you received today in the [facility] Emergency Department were for an urgent problem and are not intended as complete care. It is important for you to follow up with a doctor, nurse practitioner, or physician?s assistant professor of history for ongoing care. If your symptoms become [...] can reach you if necessary. [facility] Emergency Department has provided you with a complete list of medications post discharge. Please inform your industrial manufacturing technician/provider of your visit and for further instruction on these medications. Any specific questions regarding your chronic medications and dosages should be discussed with your primary care physician(s) and/or pharmacist. New Medications [facility] [id number], [place] [id number], [phone] metroNIDAZOLE (metroNIDAZOLE 500 mg oral tablet) 1 [...] the antibiotic as prescribed. Follow-up with your TERRAZZO SUPERVISOR to review this emergency department visit. Return [...] infection can cau (more content not included)... [facility] Test Urine 1on U Preg Positive [facility] Comment on above: Performed By: #### 1 [id number], [id number], [id number] #### [facility] (DEFAULT) [address] [place] [address] U Preg Internal Control Pass [facility] Comment on above: Performed By: #### 1 [id number], [id number], [id number] #### [facility] (DEFAULT) [address] [place] [address] 22985 UA Ibuiw2va 01-11-2024 UA Bacteria 1+ [facility] Comment on above: Order Comment: Urina lysis Microscopic order added on by Crush on original products Expert Rules system. Performed By: #### 1 [id number], [id number], [id number] #### [facility] (DEFAULT) [address] [place] [address] UA Comment. Clue Cells Seen [facility] Comment on above: Order Comment: Urina lysis Microscopic order added on by Discern Expert Rules system. Performed By: #### 1 [id number], [id number], [id number] #### [facility] (DEFAULT) [address] [place] [address] UA RBC 0-2 [facility] Comment on above: Order Comment: Urina lysis Microscopic order added on by Discern Expert Rules system. Performed By: #### 1 [id number], [id number], [id number] #### [facility] (DEFAULT) [address] [place] [address] UA Squam Epi Few [facility] Comment on above: Order Comment: Urina lysis Microscopic order added on by Discern Expert Rules system. Performed By: #### 1 [id number], [id number], [id number] #### [facility] (DEFAULT) [address] [place] [address] UA WBC 3-5 [facility] Comment on above: Order Comment: Urina lysis Microscopic order added on by Crush on original products Expert Rules system. Performed By: #### 1 [id number], [id number], [id number] #### [facility] (DEFAULT) [address] [place] [address] UA w Culture if Ind Standard on 01-11-2024 Breakpoint UA [facility] Comment on above: Performed By: #### 1 [id number], [id number], [id number] #### [facility] (DEFAULT) [address] [place] [address] Color (U) Yellow [facility] Comment on above: Performed By: #### 1 [id number], [id number], [id number] #### [facility] (DEFAULT) [address] [place] [address] Culture? Indicated Invalid Interpretation Code [facility] Comment on above: Result Comment: Resu lt created by rule GL_MAGR_ADD_UA_CULT Performed By: #### 1 [id number], [id number], [id number] #### [facility] (DEFAULT) [address] [place] [address] 53986 Glucose (U) [Mass/Vol] Negative Normal [facility] Comment on above: Performed By: #### 1 [id number], [id number], [id number] #### [facility] (DEFAULT) [address] [place] [address] 22272 Ketones Ql (U) Negative Normal [facility] Comment on above: Performed By: #### 1 [id number], [id number], [id number] #### [facility] (DEFAULT) [address] [place] [address] 81579 Micro? Indicated Invalid Interpretation Code [facility] Comment on above: Result Comment: Resu lt created by rule GL_MAGR_ADD_UA_MICRO Result created by rule GL_MAGR_ADD_UA_MICRO Performed By: #### 1 [id number], [id number], [id number] #### [facility] (DEFAULT) [address] [place] [address] 08957 UA Bilirubin Negative Normal [facility] Comment on above: Performed By: #### 1 [id number], [id number], [id number] #### [facility] (DEFAULT) [address] [place] [address] 84263 UA Blood Negative Normal NEGATIVE [facility] Comment on above: Performed By: #### 1 [id number], [id number], [id number] #### [facility] (DEFAULT) [address] [place] [address] 65462 UA Clarity CLEAR Normal CLEAR [facility] Comment on above: Performed By: #### 1 [id number], [id number], [id number] #### [facility] (DEFAULT) [address] [place] [address] 17530 UA Leuk Est SMALL Abnormal NEGATIVE [facility] Comment on above: Performed By: #### 1 [id number], [id number], [id number] #### [facility] (DEFAULT) [address] [place] [address] 24395 UA Nitrite Negative Normal NEGATIVE [facility] Comment on above: Performed By: #### 1 [id number], [id number], [id number] #### [facility] (DEFAULT) [address] [place] [address] UA pH 6.5 Normal 5-8 [facility] Comment on above: Performed By: #### 1 [id number], [id number], [id number] #### [facility] (DEFAULT) [address] [place] [address] UA Protein Negative Normal NEGATIVE [facility] Comment on above: Performed By: #### 1 [id number], [id number], [id number] #### [facility] (DEFAULT) [address] [place] [address] UA Spec Grav 1.025 Normal 1.001-1.035 [facility] Comment on above: Performed By: #### 1 [id number], [id number], [id number] #### [facility] (DEFAULT) [address] [place] [address] UA Urobilinogen 1.0 mg/dL Normal 0.2-1.0 [facility] Comment on above: Performed By: #### 1 [id number], [id number], [id number] #### [facility] (DEFAULT) [address] [place] [address] Urine Source Clean Catch Normal [facility] Comment on above: Performed By: #### 1 [id number], [id number], [id number] #### [facility] (DEFAULT) [address] [place] [address] hCG Quantitativeon hCG Quantitative 149.6 mIU/mL High 0.0-0.6 [facility] Comment on above: Result Comment: Post -Menopausal Reference Range is: 0.1-11.6 mIU/mL Performed By: #### 1 [id number], [id number], [id number] #### [facility] (DEFAULT) [address] [place] [address] ALL CBC WITH AUTO DIFFon BASOPHILS ABSOLUTE AUTO 0.0 [facility] Basophils/100 WBC (Bld) 0.5 % 0.2 - 2.0 % [facility] Eosinophils/100 WBC (Bld) 3.9 % 0.9 - 7.0 % [facility] Erythrocyte distribution width (RBC) [Ratio] 12.5 % 11.0 - 15.0 % [facility] Hematocrit (Bld) [Volume fraction] 42.3 % 36.0 - 48.0 % [facility] Hemoglobin (Bld) [Mass/Vol] 14.4 g/dL 12.0 - 16.0 g/dL [facility] IMMATURE GRANULOCYTES ABS AUTO 0.01 [facility] Immature granulocytes/100 WBC (Bld) 0.2 % 0.0 - 0.5 % [facility] LYMPHOCYTES ABSOLUTE AUTO 2.3 [facility] Lymphocytes/100 WBC (Bld) 35.7 % 20.5 - 60.0 % [facility] MCH (RBC) [Entitic mass] 31.3 pg 26.7 - 34.0 pg [facility] MCHC (RBC) [Mass/Vol] 34.0 g/dL 29.9 - 35.2 g/dL [facility] MCV (RBC) [Entitic vol] 92.0 fL 81.0 - 99.0 fL [facility] MONOCYTES ABSOLUTE AUTO 0.5 [facility] Monocytes/100 WBC (Bld) 7.2 % 1.7 - 12.0 % [facility] NEUTROPHILS ABSOLUTE AUTO 3.4 [facility] Neutrophils/100 WBC (Bld) 52.5 % 43.0 - 75.0 % [facility] Platelet mean volume (Bld) [Entitic vol] 10.1 fL 9.5 - 13.5 fL [facility] TBH EO # 0.3 [facility]H PLT [address] [facility] RBC 4.60 [facility] WBC 6.5 [facility] Outside Recordson 03-23-2023 Outside Records [id number]# 1.00OTGTIFF [facility] RAPID STREP SCR NURSINGon S. pyogenes Ag EIA Ql (Throat) Negative Normal NEG [facility] Comment on above: Performed By: #### 6 [id number] #### [facility] ([id number]) [address] [facility] [place] [address] SARS/FLU A+B/RSV by NAAT/Mol maria estheron 03-22-2023 [...] operators who are performing tests using either [employer] or [employer] systems and is limited to laboratories that [...] repeat. Fact Sheet for Healthcare Providers: https://www.fda.gov/m edia/319180/download Fact Sheet for Patients: https://www.fda.gov/m edia/260032/download Normal [facility] Comment on above: Performed By: #### C OVFLR #### [facility] ([id number]) [address] [place] [address], [place] [address] US PREG TVon 07-03-2022 US PREG TV [...] CHEMA LEE Date: 2022-07-03 17:20 Normal [facility] PREG QUANT HCGon 06-04-2022 HCG QUANT 1906 mIU/mL Normal [facility] Comment on above: Performed By: #### C BC #### [facility] [address] [place] [address] Dr. Qi Benedict HCG RANGE SEE BELOW Normal [facility] Comment on above: Result Comment: 5-50 0.2-1 WEEK 50-500 1-2 WEEKS 100-5,000 2-3 WEEKS 500-10,000 3-4 WEEKS 1,000-50,000 4-5 WEEKS 10,000-100,000 5-6 WEEKS 15,000-200,000 6-8 WEEKS 10,000-100,000 2-3 MONTHS Performed By: #### C BC #### [facility] [address] [place] [address] Dr. Qi Benedict PREG QUANT HCGon 05-29-2022 HCG QUANT 118 mIU/mL Normal [facility] Comment on above: Performed By: #### D RUGRPD #### [facility] [address] [place] [address] Dr. Qi Benedict HCG RANGE SEE BELOW Normal [facility] Comment on above: Result Comment: 5-50 0.2-1 WEEK 50-500 1-2 WEEKS 100-5,000 2-3 WEEKS 500-10,000 3-4 WEEKS 1,000-50,000 4-5 WEEKS 10,000-100,000 5-6 WEEKS 15,000-200,000 6-8 WEEKS 10,000-100,000 2-3 MONTHS Performed By: #### D RUGRPD #### [facility] [address] [place] [address] Dr. Qi Benedict CANNABINOID (THC) CONFIRMATI ON, URINEon 02-10-2022 Cannabinoid Positive Abnormal [facility] Comment on above: Performed By: #### D RUGRPD #### [facility] [address] [place] [address] Dr. Qi Benedict Carboxy THC GC/MS Conf >750 Normal Cutoff=10 Th [facility] Comment on above: Performed By: #### D RUGRPD #### [facility] [address] [place] [address] Dr. Qi Benedict CBC AUTO DIFFon 01-30-2022 BASO # 0.0 103/ul Normal 0.0-0.1 [facility] Comment on above: Performed By: #### D RUGRPD #### [facility] [address] [place] [address] Dr. Qi Benedict Basophils/100 WBC (Bld) 0.3 % Normal 0.2-2.0 [facility] Comment on above: Performed By: #### D RUGRPD #### [facility] [address] [place] [address] Dr. Qi Benedict EO # 0.2 103/ul Normal 0.0-0.7 [facility] Comment on above: Performed By: #### D RUGRPD #### [facility] [address] [place] [address] Dr. Qi Benedict Eosinophils/100 WBC (Bld) 1.4 % Normal 0.9-7.0 [facility] Comment on above: Performed By: #### D RUGRPD #### [facility] [address] [place] [address] Dr. Qi Benedict Erythrocyte distribution width (RBC) [Ratio] 14.0 % Normal 11.0-15.0 [facility] Comment on above: Performed By: #### D RUGRPD #### [facility] [address] [place] [address] Dr. Qi Benedict Hematocrit (Bld) [Volume fraction] 32.1 % Critically low 36.0-48.0 [facility] Comment on above: Performed By: #### D RUGRPD #### [facility] [address] [place] [address] Dr. Qi Benedict Hemoglobin (Bld) [Mass/Vol] 10.6 g/dL Critically low 12.0-16.0 [facility] Comment on above: Performed By: #### D RUGRPD #### [facility] [address] [place] [address] Dr. Qi Benedict IG # 0.04 10e3/ul Critically high 0.00-0.03 [facility] Comment on above: Performed By: #### D RUGRPD #### [facility] [address] [place] [address] Dr. Qi Benedict IG % 0.3 % Normal 0.0-0.5 [facility] Comment on above: Performed By: #### D RUGRPD #### [facility] [address] [place] [address] Dr. Qi Benedict LYMPH # 2.4 103/ul Normal 1.2-3.8 [facility] Comment on above: Performed By: #### D RUGRPD #### [facility] [address] [place] [address] Dr. Qi Benedict Lymphocytes/100 WBC (Bld) 19.9 % Critically low 20.5-60.0 [facility] Comment on above: Performed By: #### D RUGRPD #### [facility] [address] [place] [address] Dr. Qi Benedict MANUAL DIFF REQ NO Normal [facility] Comment on above: Performed By: #### D RUGRPD #### [facility] [address] [place] [address] Dr. Qi Benedict MCH (RBC) [Entitic mass] 30.1 pg Normal 26.7-34.0 [facility] Comment on above: Performed By: #### D RUGRPD #### [facility] [address] [place] [address] Dr. Qi Benedict MCHC (RBC) [Mass/Vol] 33.0 g/dL Normal 29.9-35.2 [facility] Comment on above: Performed By: #### D RUGRPD #### [facility] [address] [place] [address] Dr. Qi Benedict MCV (RBC) [Entitic vol] 91.2 fL Normal 81.0-99.0 [facility] Comment on above: Performed By: #### D RUGRPD #### [facility] [address] [place] [address] Dr. Qi Benedict MONO # 1.0 103/ul Critically high 0.3-0.8 [facility] Comment on above: Performed By: #### D RUGRPD #### [facility] [address] [place] [address] Dr. Qi Benedict Monocytes/100 WBC (Bld) 8.6 % Normal 1.7-12.0 [facility] Comment on above: Performed By: #### D RUGRPD #### [facility] [address] [place] [address] Dr. Qi Benedict NEUT # 8.3 103/ul Critically high 1.4-6.5 [facility] Comment on above: Performed By: #### D RUGRPD #### [facility] [address] [place] [address] Dr. Qi Benedict Neutrophils/100 WBC (Bld) 69.5 % Normal 43.0-75.0 [facility] Comment on above: Performed By: #### D RUGRPD #### [facility] [address] [place] [address] Dr. Qi Benedict Platelet mean volume (Bld) [Entitic vol] 10.3 fL Normal 9.5-13.5 [facility] Comment on above: Performed By: #### D RUGRPD #### [facility] [address] [address] [address] Qi Benedict PLT 229 103/ul Normal 150-450 [facility] Comment on above: Performed By: #### D RUGRPD #### [facility] [address] [place] [address] Dr. Qi Benedict RBC 3.52 106/ul Critically low 4.20-5.40 [facility] Comment on above: Performed By: #### D RUGRPD #### [facility] [address] [place] [address] Dr. Qi Benedict WBC 12.0 103/ul Critically high 4.0-11.0 [facility] Comment on above: Performed By: #### D RUGRPD #### [facility] [address] [place] [address] Dr. Qi Benedict CBC AUTO DIFFon 01-29-2022 BASO # 0.0 103/ul Normal 0.0-0.1 [facility] Comment on above: Performed By: #### D RUGRPD #### [facility] [address] [place] [address] Dr. Qi Benedict Basophils/100 WBC (Bld) 0.2 % Normal 0.2-2.0 [facility] Comment on above: Performed By: #### D RUGRPD #### [facility] [address] [place] [address] Dr. Qi Benedict EO # 0.1 103/ul Normal 0.0-0.7 [facility] Comment on above: Performed By: #### D RUGRPD #### [facility] [address] [place] [address] Dr. Qi Benedict Eosinophils/100 WBC (Bld) 1.4 % Normal 0.9-7.0 [facility] Comment on above: Performed By: #### D RUGRPD #### [facility] [address] [place] [address] Dr. Qi Benedict Erythrocyte distribution width (RBC) [Ratio] 13.5 % Normal 11.0-15.0 [facility] Comment on above: Performed By: #### D RUGRPD #### [facility] [address] [place] [address] Dr. Qi Benedict Hematocrit (Bld) [Volume fraction] 35.9 % Critically low 36.0-48.0 [facility] Comment on above: Performed By: #### D RUGRPD #### [facility] [address] [place] [address] Dr. Qi Benedict Hemoglobin (Bld) [Mass/Vol] 11.9 g/dL Critically low 12.0-16.0 [facility] Comment on above: Performed By: #### D RUGRPD #### [facility] [address] [place] [address] Dr. Qi Benedict IG # 0.03 10e3/ul Normal 0.00-0.03 [facility] Comment on above: Performed By: #### D RUGRPD #### [facility] [address] [place] [address] Dr. Qi Benedict IG % 0.3 % Normal 0.0-0.5 [facility] Comment on above: Performed By: #### D RUGRPD #### [facility] [address] [place] [address] Dr. Qi Benedict LYMPH # 1.5 103/ul Normal 1.2-3.8 [facility] Comment on above: Performed By: #### D RUGRPD #### [facility] [address] [place] [address] Dr. Qi Benedict Lymphocytes/100 WBC (Bld) 14.8 % Critically low 20.5-60.0 [facility] Comment on above: Performed By: #### D RUGRPD #### [facility] [address] [place] [address] Dr. Qi Bendeict MANUAL DIFF REQ NO Normal [facility] Comment on above: Performed By: #### D RUGRPD #### [facility] [address] [place] [address] Dr. Qi Benedict MCH (RBC) [Entitic mass] 30.1 pg Normal 26.7-34.0 [facility] Comment on above: Performed By: #### D RUGRPD #### [facility] [address] [address] [address] Qi Benedict MCHC (RBC) [Mass/Vol] 33.1 g/dL Normal 29.9-35.2 [facility] Comment on above: Performed By: #### D RUGRPD #### [facility] [address] [address] [address] Qi Benedict MCV (RBC) [Entitic vol] 90.7 fL Normal 81.0-99.0 [facility] Comment on above: Performed By: #### D RUGRPD #### [facility] [address] [address] [address] Qi Benedict MONO # 0.8 103/ul Normal 0.3-0.8 [facility] Comment on above: Performed By: #### D RUGRPD #### [facility] [address] [address] [address] Qi Bneedict Monocytes/100 WBC (Bld) 7.4 % Normal 1.7-12.0 [facility] Comment on above: Performed By: #### D RUGRPD #### [facility] [address] [address] [address] Qi Benedict NEUT # 7.7 103/ul Critically high 1.4-6.5 [facility] Comment on above: Performed By: #### D RUGRPD #### [facility] [address] [address] [address] Qi Benedict Neutrophils/100 WBC (Bld) 75.9 % Critically high 43.0-75.0 [facility] Comment on above: Performed By: #### D RUGRPD #### [facility] [address] [address] [address] Qi Benedict Platelet mean volume (Bld) [Entitic vol] 10.7 fL Normal 9.5-13.5 [facility] Comment on above: Performed By: #### D RUGRPD #### [facility] [address] [address] [address] Qi Benedict PLT 247 103/ul Normal 150-450 [facility] Comment on above: Performed By: #### D RUGRPD #### [facility] [address] [address] [address] Qi Benedict RBC 3.96 106/ul Critically low 4.20-5.40 [facility] Comment on above: Performed By: #### D RUGRPD #### [facility] [address] [address] [address] Qi Benedict WBC 10.2 103/ul Normal 4.0-11.0 [facility] Comment on above: Performed By: #### D RUGRPD #### [facility] [address] [address] [address] Qi Benedict Covid-19 PCR ([facility])on 01-09 SARS-CoV-2 (COVID-19) RNA STEFANIE+probe Ql (Unsp spec) Not detected Normal NOT DETECTED [facility] Comment on above: Result Comment: When [...] for this test is supported by the [place] of Health and Human Service's declaration that [...] used). Performed By: #### A FPMAT #### [facility] [id number] Qi Benedict DRUG SCREEN RAPID (URINE)on 01-29-2022 AMP Negative Normal NEGATIVE [facility] Comment on above: Performed By: #### D RUGRPD #### [facility] [address] [address] [address] Qi Benedict BAR Negative Normal NEGATIVE [facility] Comment on above: Performed By: #### D RUGRPD #### [facility] [address] [place] [address] Dr. Qi Benedict BUP Negative Normal NEGATIVE [facility] Comment on above: Performed By: #### D RUGRPD #### [facility] [address] [place] [address] Dr. Qi Benedict BZO Negative Normal NEGATIVE [facility] Comment on above: Performed By: #### D RUGRPD #### [facility] [address] [address] [address] Qi Benedict GIN Negative Normal NEGATIVE [facility] Comment on above: Performed By: #### D RUGRPD #### [facility] [address] [place] [address] Dr. Qi Benedict CUT-OFFS SEE BELOW Normal [facility] Comment on above: Result Comment: AMP [...] ng/mL Performed By: #### D RUGRPD #### [facility] [address] [place] [address] Dr. Qi Benedict DRUG CUT HEADER DRUG CLASS TEST SYSTEM CUT-OFF CONCENTRATIONS ARE FOLLOWS: Normal [facility] Comment on above: Performed By: #### D RUGRPD #### [facility] [address] [place] [address] Dr. Qi Benedict mAMP Negative Normal NEGATIVE [facility] Comment on above: Performed By: #### D RUGRPD #### [facility] [address] [address] [address] Qi Benedict MTD Negative Normal NEGATIVE [facility] Comment on above: Performed By: #### D RUGRPD #### [facility] [address] [place] [address] Dr. Qi Benedict OPI Negative Normal NEGATIVE [facility] Comment on above: Performed By: #### D RUGRPD #### [facility] [address] [address] [address] iQ Benedict OXY Negative Normal NEGATIVE [facility] Comment on above: Performed By: #### D RUGRPD #### [facility] [address] [place] [address] Dr. Qi Benedict PCP Negative Normal NEGATIVE [facility] Comment on above: Performed By: #### D RUGRPD #### [facility] [address] [place] [address] Dr. Qi Benedict PPX Negative Normal NEGATIVE [facility] Comment on above: Performed By: #### D RUGRPD #### [facility] [address] [place] [address] Dr. Qi Benedict TCA Negative Normal NEGATIVE [facility] Comment on above: Performed By: #### D RUGRPD #### [facility] [address] [place] [address] Dr. Qi Benedict THC Positive Abnormal NEGATIVE [facility] Comment on above: Performed By: #### D RUGRPD #### [facility] [address] [place] [address] Dr. Qi Benedict TYPE AND SCREENon 01-29-2022 TYPE AND SCREEN Negative Normal [facility] Comment on above: Performed By: #### T NS #### [facility] [address] [place] [address] Dr. Qi Benedict GROUP B STREP CULTUREon 01-08 S. agalactiae Ag Ql (Unsp spec) Culture Observations: NEGATIVE FOR GROUP B STREPTOCOCCUS. Normal [facility] Comment on above: Performed By: #### G BSCX #### [facility] [address] [place] [address] Dr. Qi Benedict AMNISUREon 01-04-2022 AMNISURE Negative Normal NEGATIVE [facility] Comment on above: Performed By: #### D RUGRPD #### [facility] [address] [place] [address] Dr. Qi Benedict UA (CLEAN/CATCH) SEMICONDUCTOR PACKAGES PLATEMAKER/MICRO I F IND.on 01-04-2022 Bilirubin Ql (U) Negative Normal NEGATIVE [facility] Comment on above: Performed By: #### A FPMAT #### [facility] [address] [place] [address] Dr. Qi Benedict Clarity (U) CLEAR Normal CLEAR [facility] Comment on above: Performed By: #### A FPMAT #### [facility] [address] [place] [address] Dr. Qi Benedict Color (U) YELLOW Normal YELLOW [facility] Comment on above: Performed By: #### A FPMAT #### [facility] [address] [place] [address] Dr. Qi Benedict Glucose Ql (U) 100 mg/dl Abnormal NEGATIVE [facility] Comment on above: Performed By: #### A FPMAT #### [facility] [address] [place] [address] Dr. Qi Benedict Hemoglobin Ql (U) Negative Normal NEGATIVE [facility] Comment on above: Performed By: #### A FPMAT #### [facility] [address] [place] [address] Dr. Qi Benedict Ketones Ql (U) 15 mg/dl Abnormal NEGATIVE [facility] Comment on above: Performed By: #### A FPMAT #### [facility] [address] [place] [address] Dr. Qi Benedict LEUKOCYTES Negative Normal NEGATIVE [facility] Comment on above: Performed By: #### A FPMAT #### [facility] [address] [place] [address] Dr. Qi Benedict Nitrite Ql (U) Negative Normal NEGATIVE [facility] Comment on above: Performed By: #### A FPMAT #### [facility] [address] [place] [address] Dr. Qi Benedict pH (U) 6.0 [pH] Normal 5-9 [facility] Comment on above: Performed By: #### A FPMAT #### [facility] [address] [place] [address] Dr. Qi Benedict SPEC GRAVITY 1.025 Normal 1.005-<=1.02 5 [facility] Comment on above: Performed By: #### A FPMAT #### [facility] [address] [place] [address] Dr. Qi Benedict UA PROTEIN TRACE Normal NEGATIVE/ TRACE [facility] Comment on above: Performed By: #### A FPMAT #### [facility] [address] [place] [address] Dr. Qi Benedict UR MICRO IND NOT INDICATED Normal [facility] Comment on above: Performed By: #### A FPMAT #### [facility] [address] [place] [address] Dr. Qi Benedict Urobilinogen Qn (U) 0.2 {Yessi'U}/dL Normal 0.2 - 1. 0 [facility] Comment on above: Performed By: #### A FPMAT #### [facility] [address] [place] [address] Dr. Qi Benedict US PREG GROWTHon 12-26-2021 [...] LYSSA STEWART Date: 2021-12-26 06:06 Normal [facility] US PREG PLACENTAon 2 US PREG [...] 2. Unremarkable posterior placenta. Electronically authenticated by: YLSSA STEWART Date: 2021 12:43 Normal [facility] AFP MATERNAL FOR SPINA BIFID Aon 10-05-2021 AFP MoM 1.33 Normal [facility] Comment on above: Performed By: #### A FPMAT #### [facility] [address] [address] [address] Qi Benedict AFP Value 78.0 ng/mL Normal [facility] Comment on above: Performed By: #### A FPMAT #### [facility] [address] [address] [address] Qi Benedict AFP, Serum for Spina Bifida Report Normal [facility] Comment on above: Performed By: #### A FPMAT #### [facility] [address] [address] [address] Qi Benedict Comment Comment Normal [facility] Comment on above: Result Comment: Pinky Tatum, Ph.D., [facility] Director . References: Available Upon Request. . Multiples Of Median Cutoffs For AFP Elevations Lundberg 2.5 Black 2.8 IDD 2.0 Twins 4.5 Abbreviation Definitions IDD - Insulin Dep Diabetes OSBR - Open Spina Bifida Risk . For further inquiries contact [employer] at [phone]. . This test was developed and its performance characteristics determined by [employer]. It has not been cleared or approved by the Food and Drug Administration. Performed By: #### A FPMAT #### [facility] [address] [place] [address] Dr. Qi Prince Age Collection Date 20.7 weeks Normal [facility] Comment on above: Performed By: #### A FPMAT #### [facility] [address] [place] [address] Dr. Qi Benedict Gestat, Age Based on HONEY [facility] Comment on above: Result Comment: 05/2022 Recalculations are not recommended when gestational dating by LMP and ultrasound are within 10 days. Performed By: #### A FPMAT #### [facility] [address] [place] [address] Dr. Qi Benedict Insulin Dep Diabetes No Normal [facility] Comment on above: Performed By: #### A FPMAT #### [facility] [address] [place] [address] Dr. Qi Benedict Interpretation Comment Normal [facility] Comment on above: Result Comment: Inte [...] Customer Services to discuss available options. The [employer] [place] [employer] recommends amniocentesis be offered to women age 35 and older. Performed By: #### A FPMAT #### [facility] [address] [place] [address] Dr. Qi Benedict [age] Normal [facility] Comment on above: Performed By: #### A FPMAT #### [facility] [address] [place] [address] Dr. Qi Benedict Multiple Gestation No Normal [facility] Comment on above: Performed By: #### A FPMAT #### [facility] [address] [address] [address] Qi Benedict OSBR Risk 1 [place] 4399 Normal [facility] Comment on above: Performed By: #### A FPMAT #### [facility] [address] [address] [address] Qi Benedict PDF . Normal [facility] Comment on above: Performed By: #### A FPMAT #### [facility] [address] [address] [address] Qi Benedict Race Normal [facility] Comment on above: Performed By: #### A FPMAT #### [facility] [address] [address] [address] Qi Benedict Test Results: Negative [facility] Comment on above: Performed By: #### A FPMAT #### [facility] [address] [place] [address] Dr. Qi Benedict HEP B SURFACE ANTIGEN SCREEN on 09-30-2021 HBsAg Screen Negative Normal Negative [facility] Comment on above: Performed By: #### C BC #### [facility] [address] [place] [address] Dr. Qi Benedict HEPATITIS C VIRUS AB W/ REFL EX QUANTon 09-30-2021 HCV AB <0.1 Normal 0.0-0.9 [facility] Comment on above: Performed By: #### H CVPCRR #### [facility] [address] [place] [address] Dr. Qi Benedict Interpretation: Comment Normal [facility] Comment on above: Result Comment: Nega tive Not infected with HCV, unless recent infection is suspected or other evidence exists to indicate HCV infection. Performed By: #### H CVPCRR #### [facility] [address] [place] [address] Dr. Qi Benedict HIV 1 AND 2 WITH REFLEXon HIV Screen 4th Generation wRfx Non-Reactive Normal Non Reactive [facility] Comment on above: Result Comment: HIV Negative HIV-1/HIV-2 antibodies and HIV-1 p24 antigen were NOT detected. There is no laboratory evidence of HIV infection. Performed By: #### D RUGRPD #### [facility] [address] [place] [address] Dr. Qi Benedict RPR QUANTon 09-30-2021 Rapid Plasma Reagin, Quant Non-Reactive Normal NonRea<1:1 [facility] Comment on above: Result Comment: Plea se Note: This test does not meet current guidelines for screening and diagnosis of syphilis. This test is intended for following treatment response in patients being treated for syphilis infection. To screen for syphilis infection, a reflex cascade that includes both RPR and a treponema-specific assay should be utilized, such as Treponema pallidum (Syphilis) Screening Miner (422460) or Rapid Plasma Reagin (RPR) Test With Reflex to Quantitative RPR and Confirmatory Treponema pallidum Antibodies (597961). Performed By: #### R PRQ #### [facility] [address] [place] [address] Dr. Qi Benedict RUBELLA AB IGGon 09-30-2021 Rubella Antibodies, IgG 1.44 index Normal Immune >0.99 [facility] Comment on above: Result Comment: Non- immune <0.90 Equivocal 0.90 - 0.99 Immune >0.99 Performed By: #### D RUGRPD #### [facility] [address] [place] [address] Dr. Qi Benedict VARICELLA IGG ABon Varicella Zoster IgG <135 Critically low Immune >165 [facility] Comment on above: Result Comment: Nega tive <135 Equivocal 135 - 165 Positive >165 A positive result generally indicates exposure to the pathogen or administration of specific immunoglobulins, but it is not indication of active infection or stage of disease. Performed By: #### V ARCEL #### [facility] [address] [place] [address] Dr. Qi Benedict CBC AUTO DIFFon 09-29-2021 BASO # 0.0 103/ul Normal 0.0-0.1 [facility] Comment on above: Performed By: #### C BC #### [facility] [address] [place] [address] Dr. Qi Benedict Basophils/100 WBC (Bld) 0.3 % Normal 0.2-2.0 [facility] Comment on above: Performed By: #### C BC #### [facility] [address] [place] [address] Dr. Qi Benedict EO # 0.1 103/ul Normal 0.0-0.7 [facility] Comment on above: Performed By: #### C BC #### [facility] [address] [place] [address] Dr. Qi Benedict Eosinophils/100 WBC (Bld) 1.1 % Normal 0.9-7.0 [facility] Comment on above: Performed By: #### C BC #### [facility] [address] [place] [address] Dr. Qi Benedict Erythrocyte distribution width (RBC) [Ratio] 12.7 % Normal 11.0-15.0 [facility] Comment on above: Performed By: #### C BC #### [facility] [address] [place] [address] Dr. Qi Benedict Hematocrit (Bld) [Volume fraction] 35.7 % Critically low 36.0-48.0 [facility] Comment on above: Performed By: #### C BC #### [facility] [address] [place] [address] Dr. Qi Benedict Hemoglobin (Bld) [Mass/Vol] 11.9 g/dL Critically low 12.0-16.0 [facility] Comment on above: Performed By: #### C BC #### [facility] [address] [place] [address] Dr. Qi Benedict IG # 0.04 10e3/ul Critically high 0.00-0.03 [facility] Comment on above: Performed By: #### C BC #### [facility] [address] [place] [address] Dr. Qi Benedict IG % 0.4 % Normal 0.0-0.5 [facility] Comment on above: Performed By: #### C BC #### [facility] [address] [place] [address] Dr. Qi Benedict LYMPH # 1.5 103/ul Normal 1.2-3.8 [facility] Comment on above: Performed By: #### C BC #### [facility] [address] [place] [address] Dr. Qi Benedict Lymphocytes/100 WBC (Bld) 14.1 % Critically low 20.5-60.0 [facility] Comment on above: Performed By: #### C BC #### [facility] [address] [place] [address] Dr. Qi Benedict MANUAL DIFF REQ NO Normal [facility] Comment on above: Performed By: #### C BC #### [facility] [address] [place] [address] Dr. Qi Benedict MCH (RBC) [Entitic mass] 31.6 pg Normal 26.7-34.0 [facility] Comment on above: Performed By: #### C BC #### [facility] [address] [place] [address] Dr. Qi Benedict MCHC (RBC) [Mass/Vol] 33.3 g/dL Normal 29.9-35.2 [facility] Comment on above: Performed By: #### C BC #### [facility] [address] [place] [address] Dr. Qi Benedict MCV (RBC) [Entitic vol] 94.7 fL Normal 81.0-99.0 [facility] Comment on above: Performed By: #### C BC #### [facility] [address] [place] [address] Dr. Qi Benedict MONO # 0.5 103/ul Normal 0.3-0.8 [facility] Comment on above: Performed By: #### C BC #### [facility] [address] [place] [address] Dr. Qi Benedict Monocytes/100 WBC (Bld) 5.0 % Normal 1.7-12.0 [facility] Comment on above: Performed By: #### C BC #### [facility] [address] [place] [address] Dr. Qi Benedict NEUT # 8.2 103/ul Critically high 1.4-6.5 [facility] Comment on above: Performed By: #### C BC #### [facility] [address] [place] [address] Dr. Qi Benedict Neutrophils/100 WBC (Bld) 79.1 % Critically high 43.0-75.0 [facility] Comment on above: Performed By: #### C BC #### [facility] [address] [place] [address] Dr. Qi Benedict Platelet mean volume (Bld) [Entitic vol] 9.7 fL Normal 9.5-13.5 [facility] Comment on above: Performed By: #### C BC #### [facility] [address] [place] [address] Dr. Qi Benedict PLT 200 103/ul Normal 150-450 [facility] Comment on above: Performed By: #### C BC #### [facility] [address] [place] [address] Dr. Qi Benedict RBC 3.77 106/ul Critically low 4.20-5.40 [facility] Comment on above: Performed By: #### C BC #### [facility] [address] [place] [address] Dr. Qi Benedict WBC 10.4 103/ul Normal 4.0-11.0 [facility] Comment on above: Performed By: #### C BC #### [facility] [address] [place] [address] Dr. Qi Benedict CULTURE URINEon 09-29-2021 CULTURE URINE Culture Observations : NO GROWTH. Normal [facility] Comment on above: Performed By: #### A FPMAT #### [facility] [address] [place] [address] Dr. Qi Benedict GLYCOHEMOGLOBIN A1Con 2021 ADA RECOMMENDATION SEE BELOW Normal [facility] Comment on above: Result Comment: ADA RECOMMENDED LIMIT 4.0 - 6.0 ADA THERAPEUTIC TARGET < 7.0 ACTION SUGGESTED > 7.0 Performed By: #### D RUGRPD #### [facility] [address] [place] [address] Dr. Qi Benedict Glucose [Mass/Vol] 82 mg/dL Normal [facility] Comment on above: Performed By: #### D RUGRPD #### [facility] [address] [place] [address] Dr. Qi Benedict HbA1c (Bld) [Mass fraction] 4.5 % Normal 4.5-6.2 [facility] Comment on above: Performed By: #### D RUGRPD #### [facility] [address] [place] [address] Dr. Qi Benedict TANESHA BOX TEST PT SEND OUTo n 09-29-2021 SENT TO REF LAB 09/29/2021 Normal [facility] Comment on above: Performed By: #### A FPMAT #### [facility] [address] [place] [address] Dr. Qi Benedict TYPE AND SCREENon 09-29-2021 TYPE AND SCREEN Negative Normal [facility] Comment on above: Performed By: #### A FPMAT #### [facility] [address] [place] [address] Dr. Qi Benedict US PREG ANATOMY SINGLEon [...] LYSSA STEWART Date: 2021-09-25 22:35 Normal [facility] CBC AUTO DIFFon 08-29-2021 BASO # 0.0 103/ul Normal 0.0-0.1 [facility] Comment on above: Performed By: #### C BC #### [facility] [address] [place] [address] Dr. Qi Benedict Basophils/100 WBC (Bld) 0.3 % Normal 0.2-2.0 [facility] Comment on above: Performed By: #### C BC #### [facility] [address] [place] [address] Dr. Qi Benedict EO # 0.1 103/ul Normal 0.0-0.7 [facility] Comment on above: Performed By: #### C BC #### [facility] [address] [place] [address] Dr. Qi Benedict Eosinophils/100 WBC (Bld) 1.1 % Normal 0.9-7.0 [facility] Comment on above: Performed By: #### C BC #### [facility] [address] [place] [address] Dr. Qi Benedict Erythrocyte distribution width (RBC) [Ratio] 13.2 % Normal 11.0-15.0 [facility] Comment on above: Performed By: #### C BC #### [facility] [address] [place] [address] Dr. Qi Benedict Hematocrit (Bld) [Volume fraction] 36.5 % Normal 36.0-48.0 [facility] Comment on above: Performed By: #### C BC #### [facility] [address] [place] [address] Dr. Qi Benedict Hemoglobin (Bld) [Mass/Vol] 12.4 g/dL Normal 12.0-16.0 [facility] Comment on above: Performed By: #### C BC #### [facility] [address] [place] [address] Dr. Qi Benedict IG # 0.03 10e3/ul Normal 0.00-0.03 [facility] Comment on above: Performed By: #### C BC #### [facility] [address] [place] [address] Dr. Qi Benedict IG % 0.3 % Normal 0.0-0.5 [facility] Comment on above: Performed By: #### C BC #### [facility] [address] [place] [address] Dr. Qi Benedict LYMPH # 1.3 103/ul Normal 1.2-3.8 [facility] Comment on above: Performed By: #### C BC #### [facility] [address] [place] [address] Dr. Qi Benedict Lymphocytes/100 WBC (Bld) 13.4 % Critically low 20.5-60.0 [facility] Comment on above: Performed By: #### C BC #### [facility] [address] [place] [address] Dr. Qi Benedict MANUAL DIFF REQ NO Normal [facility] Comment on above: Performed By: #### C BC #### [facility] [address] [place] [address] Dr. iQ Benedict MCH (RBC) [Entitic mass] 31.2 pg Normal 26.7-34.0 [facility] Comment on above: Performed By: #### C BC #### [facility] [address] [place] [address] Dr. Qi Benedict MCHC (RBC) [Mass/Vol] 34.0 g/dL Normal 29.9-35.2 [facility] Comment on above: Performed By: #### C BC #### [facility] [address] [place] [address] Dr. Qi Benedict MCV (RBC) [Entitic vol] 91.9 fL Normal 81.0-99.0 [facility] Comment on above: Performed By: #### C BC #### [facility] [address] [place] [address] Dr. Qi Benedict MONO # 0.5 103/ul Normal 0.3-0.8 [facility] Comment on above: Performed By: #### C BC #### [facility] [address] [place] [address] Dr. Qi Benedict Monocytes/100 WBC (Bld) 5.3 % Normal 1.7-12.0 [facility] Comment on above: Performed By: #### C BC #### [facility] [address] [place] [address] Dr. Qi Benedict NEUT # 7.6 103/ul Critically high 1.4-6.5 [facility] Comment on above: Performed By: #### C BC #### [facility] [address] [place] [address] Dr. Qi Benedict Neutrophils/100 WBC (Bld) 79.6 % Critically high 43.0-75.0 [facility] Comment on above: Performed By: #### C BC #### [facility] [address] [place] [address] Dr. Qi Benedict Platelet mean volume (Bld) [Entitic vol] 9.5 fL Normal 9.5-13.5 [facility] Comment on above: Performed By: #### C BC #### [facility] [address] [place] [address] Dr. Qi Benedict PLT 229 103/ul Normal 150-450 [facility] Comment on above: Performed By: #### C BC #### [facility] [address] [place] [address] Dr. Qi Benedict RBC 3.97 106/ul Critically low 4.20-5.40 [facility] Comment on above: Performed By: #### C BC #### [facility] [address] [place] [address] Dr. Qi Benedict WBC 9.5 103/ul Normal 4.0-11.0 [facility] Comment on above: Performed By: #### C BC #### [facility] [address] [place] [address] Dr. Qi Benedict Covid-19 PCR (CVDTB)on 08-09 SARS-CoV-2 (COVID-19) RNA STEFANIE+probe Ql (Unsp spec) Not detected Normal NOT DETECTED [facility] Comment on above: Result Comment: When [...] for this test is supported by the [place] of Health and Human Service's declaration that [...] used). Performed By: #### C VDTBH #### [facility] [address] [place] [address] Dr. Qi Benedict ER URINE PROFILEon 2 Bilirubin Ql (U) Negative Normal NEGATIVE The [facility] Comment on above: Performed By: #### D RUGRPD #### [facility] [address] [place] [address] Dr. Qi Benedict Clarity (U) CLEAR Normal CLEAR [facility] Comment on above: Performed By: #### D RUGRPD #### [facility] [address] [place] [address] Dr. Qi Benedict Color (U) YELLOW Normal YELLOW [facility] Comment on above: Performed By: #### D RUGRPD #### [facility] [address] [place] [address] Dr. Qi Benedict ERUAHD A micrscopic examination will be performed if indicated. Normal [facility] Comment on above: Performed By: #### D RUGRPD #### [facility] [address] [address] [address] Qi Benedict Glucose Ql (U) Negative Normal NEGATIVE The [facility] Comment on above: Performed By: #### D RUGRPD #### [facility] [address] [place] [address] Dr. Qi Benedict Hemoglobin Ql (U) Negative Normal NEGATIVE [facility] Comment on above: Performed By: #### D RUGRPD #### [facility] [address] [address] [address] Qi Benedict Ketones Ql (U) Negative Normal NEGATIVE [facility] Comment on above: Performed By: #### D RUGRPD #### [facility] [address] [place] [address] Dr. Qi Benedict LEUKOCYTES Negative Normal NEGATIVE [facility] Comment on above: Performed By: #### D RUGRPD #### [facility] [address] [place] [address] Dr. Qi Benedict Nitrite Ql (U) Negative Normal NEGATIVE [facility] Comment on above: Performed By: #### D RUGRPD #### [facility] [address] [place] [address] Dr. Qi Benedict pH (U) 6.0 [pH] Normal 5-9 [facility] Comment on above: Performed By: #### D RUGRPD #### [facility] [address] [place] [address] Dr. Qi Benedict SPEC GRAVITY 1.025 Normal 1.005-<=1.02 5 [facility] Comment on above: Performed By: #### D RUGRPD #### [facility] [address] [place] [address] Dr. Qi Benedict UA PROTEIN Negative Normal NEGATIVE/ TRACE [facility] Comment on above: Performed By: #### D RUGRPD #### [facility] [address] [place] [address] Dr. Qi Benedict UR MICRO IND NOT INDICATED Normal [facility] Comment on above: Performed By: #### D RUGRPD #### [facility] [address] [place] [address] Dr. Qi Benedict Urobilinogen Qn (U) 0.2 {Yessi'U}/dL Normal 0.2 - 1. 0 [facility] Comment on above: Performed By: #### D RUGRPD #### [facility] [address] [place] [address] Dr. Qi Benedict PROF 14(COMP METB)on 022 Albumin [Mass/Vol] 2.9 g/dL Critically low 3.4-5.0 [facility] Comment on above: Performed By: #### D RUGRPD #### [facility] [address] [place] [address] Dr. Qi Benedict Albumin/Globulin [Mass ratio] 0.8 {ratio} Normal [facility] Comment on above: Performed By: #### D RUGRPD #### [facility] [address] [place] [address] Dr. Qi Benedict ALP [Catalytic activity/Vol] 43 U/L Critically low 46-116 [facility] Comment on above: Performed By: #### D RUGRPD #### [facility] [address] [place] [address] Dr. Qi Benedict ALT [Catalytic activity/Vol] 13 U/L Critically low 14-59 [facility] Comment on above: Performed By: #### D RUGRPD #### [facility] [address] [place] [address] Dr. Qi Benedict Anion gap [Moles/Vol] 10.6 mmol/L Normal [facility] Comment on above: Performed By: #### D RUGRPD #### [facility] [address] [place] [address] Dr. Qi Benedict AST [Catalytic activity/Vol] 9 U/L Critically low 15-37 [facility] Comment on above: Performed By: #### D RUGRPD #### [facility] [address] [place] [address] Dr. Qi Benedict Bilirubin [Mass/Vol] 0.4 mg/dL Normal 0.2-1.0 [facility] Comment on above: Performed By: #### D RUGRPD #### [facility] [address] [place] [address] Dr. Qi Benedict Calcium [Mass/Vol] 8.5 mg/dL Normal 8.5-10.1 [facility] Comment on above: Performed By: #### D RUGRPD #### [facility] [address] [place] [address] Dr. Qi Benedict Chloride [Moles/Vol] 104 mmol/L Normal 98-107 [facility] Comment on above: Performed By: #### D RUGRPD #### [facility] [address] [place] [address] Dr. Qi Benedict CO2 [Moles/Vol] 27.0 mmol/L Normal 21.0-32.0 [facility] Comment on above: Performed By: #### D RUGRPD #### [facility] [address] [place] [address] Dr. Qi Benedict Creatinine [Mass/Vol] 0.61 mg/dL Normal 0.55-1.02 [facility] Comment on above: Performed By: #### D RUGRPD #### [facility] [address] [place] [address] Dr. Qi Benedict EGFR-AF BERMUDIAN >60 Normal >=60 [facility] Comment on above: Performed By: #### D RUGRPD #### [facility] [address] [place] [address] Dr. Qi Benedict EGFR-NON AF BERMUDIAN >60 Normal >=60 [facility] Comment on above: Performed By: #### D RUGRPD #### [facility] [address] [place] [address] Dr. Qi Benedict Globulin (S) [Mass/Vol] 3.6 g/dL Normal [facility] Comment on above: Performed By: #### D RUGRPD #### [facility] [address] [place] [address] Dr. Qi Benedict Glucose [Mass/Vol] 83 mg/dL Normal 74-106 The [facility] Comment on above: Performed By: #### D RUGRPD #### [facility] [address] [address] [address] Qi Benedict Potassium [Moles/Vol] 3.6 mmol/L Normal 3.5-5.1 [facility] Comment on above: Performed By: #### D RUGRPD #### [facility] [address] [address] [address] Qi Benedict Protein [Mass/Vol] 6.5 g/dL Normal 6.4-8.2 The [facility] Comment on above: Performed By: #### D RUGRPD #### [facility] [address] [address] [address] Qi Benedict Sodium [Moles/Vol] 138 mmol/L Normal 136-145 [facility] Comment on above: Performed By: #### D RUGRPD #### [facility] [address] [address] [address] Qi Benedict Urea nitrogen [Mass/Vol] 10.0 mg/dL Normal 7.0-18.0 [facility] Comment on above: Performed By: #### D RUGRPD #### [facility] [address] [address] [address] Qi Benedict Urea nitrogen/Creatinine [Mass ratio] 16.4 mg/mg Normal [facility] Comment on above: Performed By: #### D RUGRPD #### [facility] [address] [address] [address] Qi Benedict HCG, ,Urineon 05-31 Beta HCG ( test) Ql (U) Negative Normal NEG [facility] Comment on above: Result [...] suggested. Performed By: #### U HCG #### [address] [address] Cable Maker: Ketan Lares MD Otheron 06-01-2019 No acute osseous abnormality in the right ankle No acute osseous abnormality in the thoracic spine. [place] EXAMINATION: THREE XRAY VIEWS OF THE [...] loss of height. There is no fracture [place], [place] Julián, [employer] Incoming Radiant Results From [employer] - 06/01/2019 3:36 PM EDT EXAMINATION: THREE [...] acute osseous abnormality in the thoracic spine. [place], [place] , Urineon 0 Beta HCG ( test) Ql (U) Negative NEGATIVE [place] Comment on above: Specimens with hCG [...] Ann-Marie Medrano MD 06/01/19 Final result Normal [facility] XR THORACIC SPINE (3 VIEWS)o [...] Ann-Marie Medrano MD 06/01/19 Final result Normal [facility] XR ANKLE RIGHT (MIN 3 [...] Judah Swift MD 05/25/19 Final result Normal [facility] No fracture or dislocation. [facility] EX[facility]: THREE XRAY VIEWS OF THE RIGHT ANKLE 05/25/2019 12:05 am COMPARISON: 09/12/2018 HISTORY: ORDERING SYSTEM PROVIDED HISTORY: Fall TECHNOLOGIST PROVIDED HISTORY: Fall Reason for Exam: Diffuse right ankle pain Acuity: Acute Type of Exam: Initial Mechanism of Injury: fall FINDINGS: No fracture, dislocation, or focal osseous lesion is noted. No significant soft tissue abnormality seen. [facility] [place], [employer] Incoming Radiant Results From [employer] - 05/25/2019 12:15 AM EDT EXAMINATION: THREE [...] abnormality seen. IMPRESSION: No fracture or dislocation. [employer] HCG, Quanton 05-16-2019 HCG, Quant <1 Normal <5 [facility] Comment on above: Result [...] liver. Performed By: #### B HCG #### [email or web address] [facility] [place] [address] Cable Maker: Torsten Philip MD HCG, Quantitative, on 05-15-2019 hCG Quant <1 <5 IU/L [facility], [place] Comment on above: Non-preg premeno <=5 [...] Theo Dolan MD 03/12/19 Final result Normal [facility] CBC with Diffon 01-08-2019 Abs. Basophil 0.10 k/uL Normal 0.0-0.2 [facility] Comment on above: Performed By: #### C DP, HCG, LIP, CP, TROPI, DIME #### [facility] [address] [facility]. [place], [place] [id number] Cable Maker: Jeremie Gross DO Abs.Neutrophil (Seg) 5.00 k/uL Normal 1.3-9.1 [facility] Comment on above: Performed By: #### C DP, HCG, LIP, CP, TROPI, DIME #### [facility] [address] [facility] [place] [address] Cable Maker: Jeremie Gross DO Basophils/100 WBC (Bld) 1 % Normal 0-2 [facility] Comment on above: Performed By: #### C DP, HCG, LIP, CP, TROPI, DIME #### [facility] [address] [place] [address] Cable Maker: Jeremie Gross DO Eosinophils (Bld) [#/Vol] 0.30 10*3/uL Normal 0.0-0.4 [facility] Comment on above: Performed By: #### C DP, HCG, LIP, CP, TROPI, DIME #### [facility] [address] [place] [address] Cable Maker: Jeremie Gross DO Eosinophils/100 WBC (Bld) 3 % Normal 0-4 [facility] Comment on above: Performed By: #### C DP, HCG, LIP, CP, TROPI, DIME #### [facility] [address] [place] [address] Cable Maker: Jeremie Gross DO Erythrocyte distribution width (RBC) [Ratio] 12.9 % Normal 11.5-14.9 [facility] Comment on above: Performed By: #### C DP, HCG, LIP, CP, TROPI, DIME #### [facility] [address] [place] [address] Cable Maker: Jeremie Gross DO Hematocrit (Bld) [Volume fraction] 43.0 % Normal 36-46 [facility] Comment on above: Performed By: #### C DP, HCG, LIP, CP, TROPI, DIME #### [facility] [address] [place] [address] Cable Maker: Jeremie Gross DO Hemoglobin (Bld) [Mass/Vol] 14.6 g/dL Normal 12.0-16.0 [facility] Comment on above: Performed By: #### C DP, HCG, LIP, CP, TROPI, DIME #### [facility] [address] [place] [address] Cable Maker: Jeremie Gross DO Lymphocytes (Bld) [#/Vol] 3.10 10*3/uL Normal 1.2-5.2 [facility] Comment on above: Performed By: #### C DP, HCG, LIP, CP, TROPI, DIME #### [facility] [address] [place] [address] Cable Maker: Jeremie Gross DO Lymphocytes/100 WBC (Bld) 34 % Normal 25-45 [facility] Comment on above: Performed By: #### C DP, HCG, LIP, CP, TROPI, DIME #### [facility] [place] [address] Cable Maker: Jeremie Gross DO MCH (RBC) [Entitic mass] 30.9 pg Normal 26-34 [facility] Comment on above: Performed By: #### C DP, HCG, LIP, CP, TROPI, DIME #### [facility] [place] [address] Cable Maker: Jeremie Gross DO MCHC (RBC) [Mass/Vol] 33.9 g/dL Normal 31-37 [facility] Comment on above: Performed By: #### C DP, HCG, LIP, CP, TROPI, DIME #### [facility] [address] [place] [address] Cable Maker: Jeremie Gross DO MCV (RBC) [Entitic vol] 91.1 fL Normal 80-100 [facility] Comment on above: Performed By: #### C DP, HCG, LIP, CP, TROPI, DIME #### [facility] [address] [place] [address] Cable Maker: Jeremie Gross DO Monocytes (Bld) [#/Vol] 0.70 10*3/uL Normal 0.1-1.3 [facility] Comment on above: Performed By: #### C DP, HCG, LIP, CP, TROPI, DIME #### [facility] [address] [place] [address] Cable Maker: Jeremie Gross DO Monocytes/100 WBC (Bld) 8 % Normal 2-8 [facility] Comment on above: Performed By: #### C DP, HCG, LIP, CP, TROPI, DIME #### [facility] [address] [place] [address] Cable Maker: Jeremie Gross DO Neutrophil (Seg) 54 % Normal 34-[address] [facility] Comment on above: Performed By: #### C DP, HCG, LIP, CP, TROPI, DIME #### [facility] [address] [facility] [place] [address] Cable Maker: Jeremie Gross DO Platelet mean volume (Bld) [Entitic vol] 7.8 fL Normal 6.0-12.0 [facility] Comment on above: Performed By: #### C DP, HCG, LIP, CP, TROPI, DIME #### [facility] [address] [place] [address] Cable Maker: Jeremie Gross DO Platelets (Bld) [#/Vol] 245 10*3/uL Normal 150-450 [facility] Comment on above: Performed By: #### C DP, HCG, LIP, CP, TROPI, DIME #### [facility] [address] [facility] [place] [address] Cable Maker: Jeremie Gross DO RBC (Bld) [#/Vol] 4.71 10*6/uL Normal 4.0-5.2 [facility] Comment on above: Performed By: #### C DP, HCG, LIP, CP, TROPI, DIME #### [facility] [address] [facility] [place] [address] Cable Maker: Jeremie Gross DO WBC (Bld) [#/Vol] 9.2 10*3/uL Normal 4.5-13.5 [facility] Comment on above: Performed By: #### C DP, HCG, LIP, CP, TROPI, DIME #### [facility] [address] [facility] [place] [address] Cable Maker: Jeremie Gross DO Abs.Imm.Granulocyte NOT REPORTED Normal 0.00-0.30 [facility] Comment on above: Performed By: #### C DP, HCG, LIP, CP, TROPI, DIME #### [facility] [address] [facility] [place] [address] Cable Maker: Jeremie Gross DO Auto Diff Performed NOT REPORTED Normal [facility] Comment on above: Performed By: #### C DP, HCG, LIP, CP, TROPI, DIME #### [facility] [place] [address] Cable Maker: Jeremie Gross DO NRBC Automated NOT REPORTED Normal [facility] Comment on above: Performed By: #### C DP, HCG, LIP, CP, TROPI, DIME #### [facility] [place] [address] Cable Maker: Jeremie Gross DO Comp Metabolic Profon 2018 Bilirubin Ql (U) <0.15 Low 0.3-1.[address] [facility] Comment on above: Performed By: #### C DP, HCG, LIP, CP, TROPI, DIME #### [facility] [address] [facility] [place] [address] Cable Maker: Jeremie Gross DO (cont.) Normal [facility] Comment on above: Result Comment: Aver age GFR for <20 years old not available. Chronic Kidney Disease: <60 mL/min/1.73sq m Kidney failure: <15 mL/min/1.73sq m eGFR calculated using average adult body mass. Additional eGFR calculator available at: http://www.[employer]/multiple_crcl_2012.htm Performed By: #### C DP, HCG, LIP, CP, TROPI, DIME #### [facility] [address] [facility] [place] [address] Cable Maker: Jeremie Gross DO Albumin [Mass/Vol] 4.3 g/dL Normal 3.5-5.2 [facility] Comment on above: Performed By: #### C DP, HCG, LIP, CP, TROPI, DIME #### [facility] [address] [facility] [place] [address] Cable Maker: Jeremie Gross DO Alkaline Phos 86 U/L Normal 35-104 [facility] Comment on above: Performed By: #### C DP, HCG, LIP, CP, TROPI, DIME #### [facility] [address] [facility] [place] [address] Cable Maker: Jeremie Gross DO ALT [Catalytic activity/Vol] 9 U/L Normal 5-33 [facility] Comment on above: Performed By: #### C DP, HCG, LIP, CP, TROPI, DIME #### [facility] [address] [facility] [place] [address] Cable Maker: Jeremie Gross DO Anion gap [Moles/Vol] 11 mmol/L Normal 9-17 [facility] Comment on above: Performed By: #### C DP, HCG, LIP, CP, TROPI, DIME #### [facility] [address] [facility] [place] [address] Cable Maker: Jeremie Gross DO AST [Catalytic activity/Vol] 12 U/L Normal <32 [facility] Comment on above: Performed By: #### C DP, HCG, LIP, CP, TROPI, DIME #### [facility] [address] [place] [address] Cable Maker: Jeremie Gross DO Calcium [Mass/Vol] 9.3 mg/dL Normal 8.6-10.4 [facility] Comment on above: Performed By: #### C DP, HCG, LIP, CP, TROPI, DIME #### [facility] [address] [place] [address] Cable Maker: Jeremie Gross DO Chloride [Moles/Vol] 104 mmol/L Normal 98-107 [facility] Comment on above: Performed By: #### C DP, HCG, LIP, CP, TROPI, DIME #### [facility] [address] [facility] [place] [address] Cable Maker: Jeremie Gross DO CO2 [Moles/Vol] 25 mmol/L Normal 20-31 [facility] Comment on above: Performed By: #### C DP, HCG, LIP, CP, TROPI, DIME #### [facility] [address] [place] [address] Cable Maker: Jeremie Gross DO Creatinine [Mass/Vol] 0.53 mg/dL Normal 0.50-0.90 [facility] Comment on above: Performed By: #### C DP, HCG, LIP, CP, TROPI, DIME #### [facility] [address] [facility] [place] [address] Cable Maker: Jeremie Gross DO GFR,non Amer Pediatric GFR requires additional information. Refer to NKDEP website for Normal >60 [facility] Comment on above: Result Comment: calc ulator. Performed By: #### C DP, HCG, LIP, CP, TROPI, DIME #### [facility] [address] [place] [address] Cable Maker: Jeremie Gross DO Glucose [Mass/Vol] 86 mg/dL Normal 70-99 [facility] Comment on above: Performed By: #### C DP, HCG, LIP, CP, TROPI, DIME #### [facility] [address] [place] [address] Cable Maker: Jeremie Gross DO Potassium [Moles/Vol] 3.7 mmol/L Normal 3.7-5.3 [facility] Comment on above: Performed By: #### C DP, HCG, LIP, CP, TROPI, DIME #### [facility] [address] [facility] [place] [address] Cable Maker: Jeremie Gross DO Protein [Mass/Vol] 7.4 g/dL Normal 6.4-8.3 [facility] Comment on above: Performed By: #### C DP, HCG, LIP, CP, TROPI, DIME #### [facility] [address] [facility] [place] [address] Cable Maker: Jeremie Gross DO Sodium [Moles/Vol] 140 mmol/L Normal 135-144 [facility] Comment on above: Performed By: #### C DP, HCG, LIP, CP, TROPI, DIME #### [facility] [place] [address] Cable Maker: Jeremie Gross DO Urea nitrogen [Mass/Vol] 18 mg/dL Normal 6-20 [facility] Comment on above: Performed By: #### C DP, HCG, LIP, CP, TROPI, DIME #### [facility] [address] [facility] [place] [address] Cable Maker: Jeremie Gross DO GFR, Amer NOT REPORTED Normal >60 [facility] Comment on above: Performed By: #### C DP, HCG, LIP, CP, TROPI, DIME #### [facility] [address] [facility] [place] [address] Cable Maker: Jeremie Gross DO Staging: NOT REPORTED Normal [facility] Comment on above: Performed By: #### C DP, HCG, LIP, CP, TROPI, DIME #### [facility] [address] [facility] [place], [place] [id number] Cable Maker: Jeremie Gross DO D-Dimer Teston 01-08-2019 D-Dimer Test 0.34 mg/L FEU Normal 0.00-0.59 [facility] Comment on above: Result Comment: When combined [...] DP, HCG, LIP, CP, TROPI, DIME #### [facility] [address] [facility] [place] [address] Cable Maker: Jeremie Gross DO HCG Screen, Bloodon 01-09-20 19 HCG Qn Negative Normal NEG [facility] Comment on above: Result Comment: Spec imens [...] DP, HCG, LIP, CP, TROPI, DIME #### [facility] [address] [facility] [place] [address] Cable Maker: Jeremie Gross DO Lipaseon 01-08-2019 Lipase [Catalytic activity/Vol] 28 U/L Normal 13-60 [facility] Comment on above: Performed By: #### C DP, HCG, LIP, CP, TROPI, DIME #### [facility] [address] [facility] [place] [address] Cable Maker: Jeremie Gross DO Troponinon 01-08-2019 Troponin I.cardiac [Mass/Vol] ng/mL Normal 0-14 [facility] Comment on above: Result Comment: High Sensitivity Troponin values cannot be compared with other Troponin methodologies. Patients with high levels of Biotin oral intake (i.e >5mg/day) may have falsely decreased Troponin levels. Samples collected within 8 hours of biotin intake may require additional information for diagnosis. Performed By: #### U HCG, UAX #### [facility] [address] [facility] [place] [address] Cable Maker: Jeremie Gross DO Troponin I.cardiac [Mass/Vol] NOT REPORTED Normal <0.03 [facility] Comment on above: Performed By: #### U HCG, UAX #### [facility] [address] [facility] [place] [address] Cable Maker: Jeremie Gross DO Performed By: #### C DP, HCG, LIP, CP, TROPI, DIME #### [facility] [address] [place] [phone] Cable Maker: Jeremie Gross DO Troponin I.cardiac [Mass/Vol] ng/mL Normal 0-14 [facility] Comment on above: Result Comment: High Sensitivity Troponin values cannot be compared with other Troponin methodologies. Patients with high levels of Biotin oral intake (i.e >5mg/day) may have falsely decreased Troponin levels. Samples collected within 8 hours of biotin intake may require additional information for diagnosis. Performed By: #### C DP, HCG, LIP, CP, TROPI, DIME #### [facility] [address] [place] [address] Cable Maker: Jeremie Gross DO UA w/Reflex Cultureon 2018 Acetoacetic Acid,Ur Negative Normal NEG [facility] Comment on above: Performed By: #### U HCG, UAX #### [facility] [address] [place] [address]. [place] [address] Cable Maker: Jeremie Gross DO Bilirubin, SemiQt,Ur Negative Normal NEG [facility] Comment on above: Performed By: #### U HCG, UAX #### [facility] [address] [place] [phone] Cable Maker: Jeremie Gross DO Color (U) YELLOW Normal YEL [facility] Comment on above: Performed By: #### U HCG, UAX #### [facility] [address] [place] [phone] Cable Maker: Jeremie Gross DO Glucose Ql (U) Negative Normal NEG [facility] Comment on above: Performed By: #### U HCG, UAX #### [facility] [address] [place] [phone] Cable Maker: Jeremie Gross DO Hemoglobin, Ur Negative Normal NEG [facility] Comment on above: Performed By: #### U HCG, UAX #### [facility] [address] [place] [phone] Cable Maker: Jeremie Gross DO Leukocyte esterase Test strip Ql (U) Negative Normal NEG [facility] Comment on above: Performed By: #### U HCG, UAX #### [facility] [address] [place] [phone] Cable Maker: Jeremie Gross DO Nitrite,Ur Negative Normal NEG [facility] Comment on above: Performed By: #### U HCG, UAX #### [facility] [address] [place] [phone] Cable Maker: Jeremie Gross DO pH (U) 6.5 [pH] Normal 5.0-8.0 [facility] Comment on above: Performed By: #### U HCG, UAX #### [facility] [address] [place] [phone] Cable Maker: Jeremie Gross DO Protein Ql (U) Negative Normal NEG [facility] Comment on above: Performed By: #### U HCG, UAX #### [facility] [address] [place] [phone] Cable Maker: Jeremie Gross DO Specific gravity (U) [Rel density] 1.024 Normal 1.000-1.030 [facility] Comment on above: Performed By: #### U HCG, UAX #### [facility] [address] [place] [phone] Cable Maker: Jeremie Gross DO Turbidity CLOUDY Abnormal CLEAR [facility] Comment on above: Performed By: #### U HCG, UAX #### [facility] [place] [address] Cable Maker: Jeremie Gross DO Urobilinogen,Ur Normal Normal NORM [facility] Comment on above: Performed By: #### U HCG, UAX #### [facility] [address] [place] [phone] Cable Maker: Jeremie Gross DO Comment NOT REPORTED Normal [facility] Comment on above: Performed By: #### U HCG, UAX #### [facility] [address] [place] [phone] Cable Maker: Jeremie Gross DO Urinalysis,Microon 9 ----- Normal [facility] Comment on above: Performed By: #### U HCG, UAX #### [facility] [address] [place] [phone] Cable Maker: Jeremie Gross DO Bacteria LM.HPF (Urine sed) [#/Area] FEW Abnormal NONE [facility] Comment on above: Performed By: #### U HCG, UAX #### [facility] [address] [place] [phone] Cable Maker: Jeremie Gross DO Epithelial cells LM.HPF (Urine sed) [#/Area] 5 TO 10 Normal [facility] Comment on above: Performed By: #### U HCG, UAX #### [facility] [address] [place] [phone] Cable Maker: Jeremie Gross DO RBC (U) [#/Vol] 0 TO 2 Normal [facility] Comment on above: Performed By: #### U HCG, UAX #### [facility] [address] [place] [phone] Cable Maker: Jeremie Gross DO WBC (U) [#/Vol] 0 TO 2 Normal [facility] Comment on above: Performed By: #### U HCG, UAX #### [facility] [address] [place] [phone] Cable Maker: Jeremie Gross DO Amorphous sediment LM Ql (Urine sed) NOT REPORTED Normal NONE [facility] Comment on above: Performed By: #### U HCG, UAX #### [facility] [address] [place] [phone] Cable Maker: Jeremie Gross DO Casts LM.LPF (Urine sed) [#/Area] NOT REPORTED Normal [facility] Comment on above: Performed By: #### U HCG, UAX #### [facility] [address] [place] [phone] Cable Maker: Jeremie Gross DO Crystals LM Nom (Urine sed) NOT REPORTED Normal [facility] Comment on above: Performed By: #### U HCG, UAX #### [facility] [address] [place] [phone] Cable Maker: Jeremie Gross DO Epithelial, Renal NOT REPORTED Normal 0 [facility] Comment on above: Performed By: #### U HCG, UAX #### [facility] [address] [place] [phone] Cable Maker: Jeremie Gross DO Mucus Strands NOT REPORTED Normal NONE [facility] Comment on above: Performed By: #### U HCG, UAX #### [facility] [address] [place] [phone] Cable Maker: Jeremie Gross DO Other Observations NOT REPORTED Normal NREQ [facility] Comment on above: Performed By: #### U HCG, UAX #### [facility] [address] [facility] [place] [address] Cable Maker: Jeremie Gross DO Trichomonas NOT REPORTED Normal NONE [facility] Comment on above: Performed By: #### U HCG, UAX #### [facility] [address] [facility] [place] [address] Cable Maker: Jeremie Gross DO Yeast LM Ql (Urine sed) NOT REPORTED Normal NONE [facility] Comment on above: Performed By: #### U HCG, UAX #### [facility] [address] [place] [address] Cable Maker: Jeremie Gross DO XR CHEST (2 VW)on [...] Levi Munroe MD 01/07/19 Final result Normal [facility] CBC Auto Differentialon 12-11 Basophils (Bld) [#/Vol] 0.10 10*3/uL [place] Basophils/100 WBC (Bld) 1 % 0 - 2 % [place] Differential Type NOT REPORTED [place] Eosinophils (Bld) [#/Vol] 0.30 10*3/uL [place] Eosinophils/100 WBC (Bld) 3 % 0 - 4 % [place] Erythrocyte distribution width (RBC) [Ratio] 12.9 % 11.5 - 14.9 % [place] Hematocrit (Bld) [Volume fraction] 43.0 % 36 - 46 % [place] Hemoglobin (Bld) [Mass/Vol] 14.6 g/dL 12 - 16 g/dL [place] Lymphocytes (Bld) [#/Vol] 3.10 10*3/uL [place] Lymphocytes/100 WBC (Bld) 34 % 25 - 45 % [place] MCH (RBC) [Entitic mass] 30.9 pg 26 - 34 pg [place] MCHC (RBC) [Mass/Vol] 33.9 g/dL 31 - 37 g/dL [place] MCV (RBC) [Entitic vol] 91.1 fL 80 - 100 fL [place] Monocytes (Bld) [#/Vol] 0.70 10*3/uL [place] Monocytes/100 WBC (Bld) 8 % 2 - 8 % [place] Platelet mean volume (Bld) [Entitic vol] 7.8 fL 6 - 12 fL [place] Platelets (Bld) [#/Vol] 245 10*3/uL [place] RBC (Bld) [#/Vol] 4.71 10*6/uL 4 - 5.2 m/uL [place] Segmented neutrophils/100 WBC (Bld) 54 % 34 - 64 % [place] Segs Absolute 5.00 [place] WBC (Bld) [#/Vol] 9.2 10*3/uL [place] WBC (Bld) [#/Vol] NOT REPORTED per 100 WBC [place] CBC with Diffon 01-07-2019 Immature granulocytes (Bld) [#/Vol] NOT REPORTED Normal 0 [place] Comment on above: Performed By: #### C DP, HCG, LIP, CP, TROPI, DIME #### [facility] [address] [place] [address] Cable Maker: Jeremie Gross DO Platelets (Bld) [#/Vol] NOT REPORTED Normal [place] Comment on above: Performed By: #### C DP, HCG, LIP, CP, TROPI, DIME #### [facility] [address] [place] [address] Cable Maker: Jeremie Gross DO RBC morphology finding Nom (Bld) NOT REPORTED Normal [place] Comment on above: Performed By: #### C DP, HCG, LIP, CP, TROPI, DIME #### [facility] [address] [place] [address] Cable Maker: Jeremie Gross DO WBC Morphology NOT REPORTED Normal [place] Comment on above: Performed By: #### C DP, HCG, LIP, CP, TROPI, DIME #### [facility] [address] [facility] [place] [address] Cable Maker: Jeremie Gross DO Comp Metabolic Profon 2018 Albumin/Globulin [Mass ratio] NOT REPORTED Normal 1.0-2.5 [place] Comment on above: Performed By: #### C DP, HCG, LIP, CP, TROPI, DIME #### [facility] [address] [place] [address] Cable Maker: Jeremie Gross DO Bun/Cre Ratio NOT REPORTED Normal 9-20 [place] Comment on above: Performed By: #### C DP, HCG, LIP, CP, TROPI, DIME #### [facility] [address] [facility] [place] [address] Cable Maker: Jeremie Gross DO Comprehensive Metabolic Pane eric 01-07-2019 Albumin [Mass/Vol] 4.3 g/dL 3.5 - 5.2 g/dL [place] ALP [Catalytic activity/Vol] 86 U/L 35 - 104 U/L [place] ALT [Catalytic activity/Vol] 9 U/L 5 - 33 U/L [place] Anion gap [Moles/Vol] 11 mmol/L 9 - 17 mmol/L [place] AST [Catalytic activity/Vol] 12 U/L <32 [place] Bilirubin Ql (U) <0.15 Low 0.3 - 1.2 mg/dL [place] Calcium [Mass/Vol] 9.3 mg/dL 8.6 - 10. 4 mg/dL [place] Chloride [Moles/Vol] 104 mmol/L 98 - 10 7 mmol/L [place] CO2 [Moles/Vol] 25 mmol/L 20 - 31 mmol/L [place] Creatinine [Mass/Vol] 0.53 mg/dL 0.5 - 0.9 mg/dL [place] GFR NOT REPORTED >60 mL/min [place] GFR Non- Pediatric GFR requires additional information. Refer to [employer]DEP website for calculator. >60 mL/min [place] GFR/1.73 sq M predicted among non-blacks MDRD (S/P/Bld) [Vol rate/Area] [place] Comment on above: Average GFR for <20 years old not available. Chronic Kidney Disease: <60 mL/min/1.73sq m Kidney failure: <15 mL/min/1.73sq m eGFR calculated using average adult body mass. Additional eGFR calculator available at: http://www.[employer]/multiple_crcl_2012.htm GFR/1.73 sq M predicted among non-blacks MDRD (S/P/Bld) [Vol rate/Area] NOT REPORTED [place] Glucose [Mass/Vol] 86 mg/dL 70 - 99 mg/dL [place] Interpretation and review of laboratory results Abnormal [place] Potassium [Moles/Vol] 3.7 mmol/L 3.7 - 5.3 mmol/L [place] Protein [Mass/Vol] 7.4 g/dL 6.4 - 8.3 g/dL [place] Sodium [Moles/Vol] 140 mmol/L 135 - 144 mmol/L [place] Urea nitrogen [Mass/Vol] 18 mg/dL 6 - 20 mg/dL [place] D-Dimer, Quantitativeon 12-11 D-Dimer, Quant 0.34 [place] Comment on above: When combined with [...] Bloodon 01-08-20 19 hCG Qual Negative NEGATIVE [place] Comment on above: Specimens with hCG [...] activity/Vol] 28 U/L 13 - 60 U/L [place] Microscopic Urinalysison Amorphous, UA NOT REPORTED None [place] Bacteria, UA FEW Abnormal None [place] Casts UA NOT REPORTED /LPF [place] Crystals UA NOT REPORTED None /HPF [place] Epithelial Cells UA 5 TO 10 /HPF [place] Interpretation and review of laboratory results Abnormal [place] Mucus, UA NOT REPORTED None [place] Other Observations UA NOT REPORTED NOT REQ. [place] RBC (U) [#/Vol] 0 TO 2 /HPF [place] Renal Epithelial, Urine NOT REPORTED 0 /HPF [place] Trichomonas, UA NOT REPORTED None [place], [place] WBC, UA 0 TO 2 /HPF [place] Yeast, UA NOT REPORTED None [place], [place] - [place] Troponinon 01-07-2019 Troponin I.cardiac [Mass/Vol] NOT REPORTED [place] Troponin T.cardiac [Mass/Vol] NOT REPORTED <0.03 ng/mL [place] Troponin, High Sensitivity <6 0 - 14 ng/L [place] Comment on above: High Sensitivity Troponin values cannot be compared with other Troponin methodologies. Patients with high levels of Biotin oral intake (i.e >5mg/day) may have falsely decreased Troponin levels. Samples collected within 8 hours of biotin intake may require additional information for diagnosis. Troponin I.cardiac [Mass/Vol] NOT REPORTED [place] Troponin T.cardiac [Mass/Vol] NOT REPORTED <0.03 ng/mL [place] Troponin, High Sensitivity <6 0 - 14 ng/L [place] Comment on above: High Sensitivity Troponin values cannot be compared with other Troponin methodologies. Patients with high levels of Biotin oral intake (i.e >5mg/day) may have falsely decreased Troponin levels. Samples collected within 8 hours of biotin intake may require additional information for diagnosis. Urinalysis Reflex to Culture on 01-07-2019 Bilirubin Urine Negative NEGATIVE [place] Color, UA YELLOW YELLOW [place] Glucose, Ur Negative NEGATIVE [place] Interpretation and review of laboratory results Abnormal [place] Ketones Ql (U) Negative NEGATIVE [place] Leukocyte esterase Test strip Ql (U) Negative NEGATIVE [place] Nitrite, Urine Negative NEGATIVE [place] pH, UA 6.5 [place] Protein (U) [Mass/Vol] Negative NEGATIVE [place] Specific [place], UA 1.024 [place] Turbidity UA CLOUDY Abnormal CLEAR [place] Urinalysis Comments NOT REPORTED [place] Urine Hgb Negative NEGATIVE [place] Urobilinogen, Urine Normal Normal [place] XR CHEST STANDARD (2 VW)on 03-09-2018 [...] The osseous structures are without acute process. [place] Julián, M[facility] Incoming Radiant Results From [employer] - 01/07/2019 10:07 PM EST EXAMINATION: TWO [...] without acute process. IMPRESSION: No acute process. [place] No acute process. [facility] [place] HCG, ,Urineon 12-03 Beta HCG ( test) Ql (U) Negative Normal NEG [facility] Comment on above: Result Comment: Spec imens with hCG levels near the threshold of the test (25 mIU/mL) may give a negative or indeterminate result. In such cases, another test should be performed with a new specimen in 48-72 hours. If early is suspected clinically in this setting, correlation with quantitative serum b-hCG level is suggested. Performed By: #### U HCG, UAX #### [facility] [facility] [place] [address] Cable Maker: Jeremie Gross DO Beta HCG ( test) Ql (U) Negative NEGATIVE [place] Comment on above: Specimens with hCG [...] Cultureon 2018 Acetoacetic Acid,Ur Negative Normal NEG [facility] Comment on above: Performed By: #### U HCG, UAX #### [facility] [address] [place] [address]. [place] [address] Cable Maker: Jeremie Gross DO Bilirubin, SemiQt,Ur Negative Normal NEG [facility] Comment on above: Performed By: #### U HCG, UAX #### [facility] [address] [place] [address]. [place] [address] Cable Maker: Jeremie Gross DO Color (U) YELLOW Normal YEL [facility] Comment on above: Performed By: #### U HCG, UAX #### [facility] [address] [place] [address]. [place] [address] Cable Maker: Jeremie Gross DO Comment Microscopic exam not performed based on chemical results unless requested in Normal [facility] Comment on above: Result Comment: orig inal order. Performed By: #### U HCG, UAX #### [facility] [address] [place] [address]. [place] [address] Cable Maker: Jeremie Gross DO Glucose Ql (U) Negative Normal NEG [facility] Comment on above: Performed By: #### U HCG, UAX #### [facility] [address] [place] [address] Cable Maker: Jeremie Gross DO Hemoglobin, Ur Negative Normal NEG [facility] Comment on above: Performed By: #### U HCG, UAX #### [facility] [address] [place] [phone] Cable Maker: Jeremie Gross DO Nitrite,Ur Negative Normal NEG [facility] Comment on above: Performed By: #### U HCG, UAX #### [facility] [address] [place] [phone] Cable Maker: Jeremie Gross DO pH (U) 8.5 [pH] High 5.0-8.0 [facility] Comment on above: Performed By: #### U HCG, UAX #### [facility] [address] [place] [phone] Cable Maker: Jeremie Gross DO Protein Ql (U) Negative Normal NEG [facility] Comment on above: Performed By: #### U HCG, UAX #### [facility] [address] [place] [address] Cable Maker: Jeremie Gross DO Specific gravity (U) [Rel density] 1.018 Normal 1.000-1.030 [facility] Comment on above: Performed By: #### U HCG, UAX #### [facility] [address] [place] [address] Cable Maker: Jeremie Gross DO Turbidity CLEAR Normal CLEAR [facility] Comment on above: Performed By: #### U HCG, UAX #### [facility] [address] [place] [phone] Cable Maker: Jeremie Gross DO Urobilinogen,Ur Normal Normal NORM [facility] Comment on above: Performed By: #### U HCG, UAX #### [facility] [address] [facility] [place] [address] Cable Maker: Jeremie Gross DO Leukocyte esterase Test strip Ql (U) Negative Normal NEG [place] Comment on above: Performed By: #### U HCG, UAX #### [facility] [address] [facility] [place] [address] Cable Maker: Jeremie Grsos DO Urinalysis Reflex to Culture on 2018 Bilirubin Urine Negative NEGATIVE [facility], [place] Color, UA YELLOW YELLOW [place] Glucose, Ur Negative NEGATIVE [place] Interpretation and review of laboratory results Abnormal [place] Ketones Ql (U) Negative NEGATIVE [facility], [place] Nitrite, Urine Negative NEGATIVE [facility], [place] pH, UA 8.5 High [place] Protein (U) [Mass/Vol] Negative NEGATIVE [place] Specific [place], UA 1.018 [place] Turbidity UA CLEAR CLEAR [place] Urinalysis Comments Microscopic exam not performed based on chemical results unless requested in original order. [place] Urine Hgb Negative NEGATIVE [place] Urobilinogen, Urine Normal Normal [place] XR ANKLE RIGHT (MIN 3 VIEWS) [...] Damian Ochoa MD 09/12/18 Final result Normal [facility] Vital Signs Date Time Vital Sign Value Performing Clinician Facility 08-23-2024 13:19-0400 Body mass index (BMI) [Ratio] 29.94 kg/m2 Eusebio Carole DO Work Phone: [facility] 08-23-2024 13:19-0400 Body weight 76.66 kg Eusebio Carole DO Work Phone: [facility] 08-23-2024 13:19-0400 Diastolic blood pressure 60 mm[Hg] Eusebio Carole DO Work Phone: [facility] 08-23-2024 13:19-0400 Systolic blood pressure 102 mm[Hg] Eusebio Carole DO Work Phone: [facility] 08-17-2024 09:59-0400 Body mass index (BMI) [Ratio] 28.7 kg/m2 Eusebio Carole DO Work Phone: [facility] 08-17-2024 09:59-0400 Body weight 73.48 kg Eusebio Carole DO Work Phone: [facility] 08-17-2024 09:59-0400 Diastolic blood pressure 60 mm[Hg] Eusebio Carole DO Work Phone: [facility] 08-17-2024 09:59-0400 Systolic blood pressure 108 mm[Hg] Eusebio Carole DO Work Phone: [facility] 08-09-2024 08:36-0400 Body mass index (BMI) [Ratio] 29.01 kg/m2 Radha Diego NP Work Phone: [facility] 08-09-2024 08:36-0400 Body weight 74.28 kg Radha Diego NP Work Phone: [facility] 08-09-2024 08:36-0400 Diastolic blood pressure 58 mm[Hg] Radha Avendanoerly [employer]ER Work Phone: [facility] 08-09-2024 08:36-0400 Systolic blood pressure 110 mm[Hg] Radha Paniagualy [employer] Work Phone: [facility] 07-26-2024 11:21-0400 Body mass index (BMI) [Ratio] 28.61 kg/m2 Eusebio Carole DO Work Phone: [facility] 07-26-2024 11:21-0400 Body weight 73.26 kg Eusebio Carole DO Work Phone: [facility] 07-26-2024 11:21-0400 Diastolic blood pressure 62 mm[Hg] Eusebio Carole DO Work Phone: [facility] 07-26-2024 11:21-0400 Systolic blood pressure 102 mm[Hg] Eusebio Carole DO Work Phone: [facility] 07-13-2024 10:50-0400 Body mass index (BMI) [Ratio] 27.81 kg/m2 Eusebio Carole DO Work Phone: [facility] 07-13-2024 10:50-0400 Body weight 71.22 kg Eusebio Carole DO Work Phone: [facility] 07-13-2024 10:50-0400 Diastolic blood pressure 68 mm[Hg] Eusebio Carole DO Work Phone: [facility] 07-13-2024 10:50-0400 Systolic blood pressure 110 mm[Hg] Eusebio Carole DO Work Phone: [facility] 06-28-2024 10:14-0400 Body mass index (BMI) [Ratio] 28.3 kg/m2 Radha GARCIA Work Phone: [facility] 06-28-2024 10:14-0400 Body weight 72.46 kg Radha GARCIA Work Phone: [facility] 06-28-2024 10:14-0400 Diastolic blood pressure 60 mm[Hg] Radha GARCIA Work Phone: [facility] 06-28-2024 10:14-0400 Systolic blood pressure 110 mm[Hg] Radha GARCIA Work Phone: [facility] 06-13-2024 12:02-0400 Body mass index (BMI) [Ratio] 27.99 kg/m2 Eusebio Carole DO Work Phone: [facility] 06-13-2024 12:02-0400 Body weight 71.67 kg Eusebio Carole DO Work Phone: [facility] 06-13-2024 12:02-0400 Diastolic blood pressure 74 mm[Hg] Eusebio Carole DO Work Phone: [facility] 06-13-2024 12:02-0400 Systolic blood pressure 122 mm[Hg] Eusebio Carole DO Work Phone: [facility] 05-16-2024 09:43-0400 Body mass index (BMI) [Ratio] 25.86 kg/m2 Eusebio Carole DO Work Phone: [facility] 05-16-2024 09:43-0400 Body weight 66.22 kg Eusebio Carole DO Work Phone: [facility] 05-16-2024 09:43-0400 Diastolic blood pressure 70 mm[Hg] Eusebio Carole DO Work Phone: [facility] 05-16-2024 09:43-0400 Systolic blood pressure 120 mm[Hg] Eusebio Carole DO Work Phone: [facility] 04-17-2024 13:30-0400 Body mass index (BMI) [Ratio] 23.52 kg/m2 Radha GARCIA Work Phone: [facility] 04-17-2024 13:30-0400 Body weight 60.24 kg Radha GARCIA Work Phone: [facility] 04-17-2024 13:30-0400 Diastolic blood pressure 60 mm[Hg] Radha GARCIA Work Phone: [facility] 04-17-2024 13:30-0400 Systolic blood pressure 100 mm[Hg] Radha Avila PA Work Phone: [facility] 03-22-2024 11:21-0500 Body mass index (BMI) [Ratio] 22.34 kg/m2 Radha [place] PA Work Phone: [facility] 03-22-2024 11:21-0500 Body weight 57.21 kg Radha Avila PA Work [facility] [facility] 03-22-2024 11:21-0500 Diastolic blood pressure 74 mm[Hg] Radha Avila PA Work Phone: [facility] 03-22-2024 11:21-0500 Systolic blood pressure 110 mm[Hg] Radha Avila PA Work Phone: [facility] 03-09-2023 14:31-0500 Body mass index (BMI) [Ratio] 25.51 kg/m2 Eusebio Carole DO Work Phone: [facility] 03-09-2023 14:31-0500 Body weight 65.32 kg Eusebio Carole DO Work Phone: [facility] 03-09-2023 14:31-0500 Diastolic blood pressure 72 mm[Hg] Eusebio Carole DO Work Phone: [facility] 03-09-2023 14:31-0500 Systolic blood pressure 120 mm[Hg] Eusebio Carole DO Work Phone: [facility] 10-05-2021 02:05-0400 Body weight 80.[address] EUSEBIO LAM . [facility] Comment on above: Performed By: #### AFPMAT #### [facility] [address] [place] [address] Dr. Qi Benedict 06-01-2019 14:51-0400 BMI (Body Mass Index) 31.35 kg/m2 [facility] [place], [place] 06-01-2019 14:51-0400 Body Temperature 99 [degF] [facility] [place] 06-01-2019 14:51-0400 Body weight 80.29 kg [facility] , [place] 06-01-2019 14:51-0400 Height 160 cm [facility] , [place] 06-01-2019 14:51-0400 Pulse (Heart Rate) 83 /min [facility] 06-01-2019 14:51-0400 Pulse Oximetry 99 % [facility] , [place] 06-01-2019 14:51-0400 Respiratory Rate 16 /min [facility], [place] 05-24-2019 23:36-0400 BMI (Body Mass Index) 32.01 kg/m2 [facility], [place] 05-24-2019 23:36-0400 Body Temperature 98.6 [degF] [facility], [place] 05-24-2019 23:36-0400 Body weight 79.38 kg [facility] , [place] 05-24-2019 23:36-0400 BP Diastolic 86 mm[Hg] [facility] , [place] 05-24-2019 23:36-0400 BP Systolic 135 mm[Hg] [facility] , [place] 05-24-2019 23:36-0400 Height 157.5 cm [place], [place] 05-24-2019 23:36-0400 Pulse (Heart Rate) 98 /min [facility], [place] 05-24-2019 23:36-0400 Pulse Oximetry 99 % [facility] , [place] 05-24-2019 23:36-0400 Respiratory Rate 20 /min [facility], [place] 01-07-2019 23:25-0500 Body Temperature 98.6 [degF] [facility], [place] 01-07-2019 23:25-0500 BP Diastolic 78 mm[Hg] [facility] , [place] 01-07-2019 23:25-0500 BP Systolic 124 mm[Hg] [facility] , [place] 01-07-2019 23:25-0500 Pulse (Heart Rate) 77 /min [facility] [place] 01-07-2019 23:25-0500 Pulse Oximetry 99 % [facility] [place] 01-07-2019 23:25-0500 Respiratory Rate 16 /min [facility] [place] 01-07-2019 21:09-0500 Height 160 cm Ann-Marie [facility] , [place] 2018 17:25-0400 BMI (Body Mass Index) 25.61 kg/m2 Kosta Escalon [facility], [place] 2018 17:25-0400 Body Temperature 98.1 [degF] [place], [place] 2018 17:25-0400 Body weight 63.5 kg [place], [place] 2018 17:25-0400 BP Diastolic 64 mm[Hg] [facility] , [place] 2018 17:25-0400 BP Systolic 92 mm[Hg] [facility] , [place] 2018 17:25-0400 Height 157.5 cm [place], [place] 2018 17:25-0400 Pulse (Heart Rate) 80 /min [place], [place] 2018 17:25-0400 Pulse Oximetry 98 % [place], [place] 2018 17:25-0400 Respiratory Rate 16 /min [place] Encounters Encounter Date Encounter Type Care [...] Comment on above: Third trimester preg cindi ([facility]); 35 weeks gestation of ([facility] Start: 08-22-2024 End: 08-22-2024 Clinisync Result Encounter Eusebio Carole DO Work Phone: [facility] Unsolicited Start: 08-22-2024 End: 08-22-2024 Clinisync Result Encounter Eusebio Craole DO Work Phone: [facility] Unsolicited [...] Comment on above: Third trimester preg cindi ([facility]); 35 weeks gestation of ([facility]) Start: 08-17-2024 End: 08-17-2024 ambulatory EUSEBIO CAROLE Not Available Start: 08-09-2024 End: 08-09-2024 Bamboo flowsheet Radha Diego [employer] Work Phone: [facility] Start: 08-09-2024 End: 08-09-2024 Bamboo flowsheet Radha Diego [employer] Work Phone: [facility] Start: 08-09-2024 End: 08-09-2024 Clinisync Result Encounter Eusebio Carole DO Work Phone: [facility] Unsolicited Start: 08-09-2024 End: 08-09-2024 Office outpatient visit 15 minutes Radha Diego [employer] Work Phone: [facility] Comment on above: Third trimester preg cindi ([facility]); 33 weeks gestation of ([facility]) Start: 08-09-2024 End: 08-09-2024 ambulatory RADHA [...] Comment on above: Third trimester preg cindi ([facility]); 31 weeks gestation of ([facility]) Start: 07-13-2024 End: 07-13-2024 Bamboo flowsheet [...] visit 15 minutes Radha GARCIA Work Phone: [facility] Comment on above: Second trimester pre gnancy; 27 weeks gestation of Start: 06-28-2024 End: 06-28-2024 ambulatory RADHA AVILA Not Available Start: 06-13-2024 End: 06-13-2024 Bamboo flowsheet Eusebio Carole DO Work Phone: [facility] Start: 06-13-2024 End: 06-13-2024 Bamboo flowsheet Eusebio Carole DO Work Phone: [facility] Start: 06-13-2024 End: 06-13-2024 Office outpatient visit 15 minutes Eusebio Carole DO Work Phone: [facility] Comment on above: Second trimester pre gnancy; 25 weeks gestation of ; H/O delivery, currently ; Vapes nicotine containing substance Start: 06-13-2024 End: 06-13-2024 ambulatory EUSEBIO CAROLE Not Available Start: 05-24-2024 End: 05-24-2024 ambulatory EUSEBIO R CAROLE [facility] Start: 05-16-2024 End: 05-16-2024 Bamboo flowsheet Eusebio Carole DO Work Phone: [facility] Start: 05-16-2024 End: 05-19-2024 Bamboo [...] Department Unsolicited Start: 02-11-2024 End: 02-11-2024 ambulatory [facility] Start: 02-11-2024 End: 02-11-2024 ambulatory [facility] Start: 01-26-2024 End: 01-26-2024 ambulatory [facility] Start: 01-19-2024 End: 01-19-2024 ambulatory ANN-MARIE ASH [facility] Start: 01-18-2024 End: 01-18-2024 ambulatory [facility] Start: 01-11-2024 End: 01-11-2024 Emergency department patient visit ANN-MARIE ASH MD Facility:[facility] Start: 11-03-2023 End: 11-03-2023 Bamboo flowsheet [...] depression (CMS/HCC); Weight loss Start: 09-01-2023 ambulatory [place] Start: 03-22-2023 End: 03-22-2023 Emergency department patient visit ANN-MARIE Dc ASH [facility] Start: 03-09-2023 End: 03-09-2023 Office outpatient [...] 06-01-2019 Emergency department patient visit ANN-MARIE Dc [facility] Start: 06-01-2019 End: 06-01-2019 Emergency department patient visit Victorino Sullivan Work Phone: [facility] ED Comment on above: Sprain of right ankl e, unspecified ligament, initial encounter (Primary Dx); Contusion of back wall of thorax, unspecified laterality, initial encounter Start: 05-25-2019 End: 05-25-2019 Emergency department patient visit ANN-MARIE Dc [facility] Start: 05-24-2019 End: 05-25-2019 Emergency department patient visit Alexandria Siddiqui Work Phone: [facility] ED Comment on above: Sprain of right ankl e, unspecified ligament, initial encounter (Primary Dx) Start: 05-15-2019 End: 05-16-2019 Patient encounter procedure TRUDY RAMAN [facility] Start: 05-15-2019 End: 05-15-2019 Subsequent hospital visit by physician Ann-Marie HARRELL [facility] Comment on above: Amenorrhea Start: 03-12-2019 End: 03-12-2019 Emergency department patient visit [facility] Start: 01-07-2019 End: 01-08-2019 Emergency department patient visit [facility] Start: 01-07-2019 End: 01-08-2019 Emergency department patient visit Ann-Marie Engle Work Phone: [facility] ED Comment on above: Dyspepsia (Primary D x); Atypical chest pain Start: 2018 End: 2018 Emergency department patient visit [facility] Start: 2018 End: 2018 Emergency department patient visit Kosta Lozano Work Phone: [facility] ED Comment on above: examinatio n or test, negative result (Primary Dx) Start: 09-12-2018 End: 09-12-2018 Emergency department patient visit ANN-MARIE ASH [facility] Procedures Date Procedure Procedure Detail Performing Clinician Start: 08-24-2024 US OB BPP W NON-STRESS Eusebio Carole DO Work Phone: Start: 08-24-2024 US OB GROWTH Eusebio Fazi o DO Work Phone: Start: 08-22-2024 [facility]H UA (CLEAN/CATCH) [employer] P[employer] PLATEMAKER/MICRO IF IND. Eusebio Carole DO Work Phone: [...] AM EDT Routine [facility] [address] [place] [address] Eusebio Lam, DO [address] [place] [address] [facility] Start: 08-23-2024 End: 08-23-2025 CULTURE, GROUP B STREP WITH SUSCEPTIBLITY CULTURE, GROUP B STREP WITH SUSCEPTIBLITY Lab Routine Third trimester ([facility]) Expected: 08/23/2024, Expires: 08/23/2025 [facility] Work Phone: Comment on above: Expected: 08/23/2024 , Expires: 08/23/2025 Start: 08-23-2024 End: 08-23-2024 Patient encounter procedure 08/23/2024 1:00 PM EDT Routine [facility] [address] [place] [address] Eusebio Lam, DO [address] [place] [address] [facility] Start: 08-17-2024 End: 08-17-2024 Patient encounter procedure [facility] Comment on above: Arrived Start: 08-09-2024 End: 08-09-2024 Patient encounter procedure [facility] Comment on above: Arrived Start: 07-26-2024 End: 07-26-2024 Patient encounter procedure 07/26/2024 11:10 AM EDT Routine [facility] [address] [place] [phone] Eusebio Lam DO [address] [place], [place] [id number] [facility] Start: 07-13-2024 End: 01-12-2025 [...] [facility] [address] [place] [phone] [facility] Start: 06-28-2024 End: 06-28-2024 Patient encounter procedure 06/28/2024 10:10 AM EDT Routine [facility] [address] [place] [phone] Radha Avila PA [address] [place], [place] [id number] [facility] Start: 06-28-2024 End: 06-28-2024 Professional / ancillary services management 06/28/2024 9:30 AM EDT Ancillary Procedure [facility] [address] [place] [address] [facility] Start: 06-13-2024 End: 06-13-2024 Patient encounter procedure [facility] Comment on above: Arrived Start: 05-16-2024 End: 05-16-2025 CBC panel - Blood by Automated count CBC Lab Routine Diabetes mellitus screening Expected: 05/16/2024 (Approximate), Expires: 05/16/2025 [facility] Work Phone: Comment on above: Expected: 05/16/2024 (Approximate), Expires: 05/16/2025 Start: 05-16-2024 End: 05-16-2025 Measurement of glucose 1 hour after glucose challenge for glucose tolerance test Glucose tolerance, 1 hour Lab Routine Diabetes mellitus screening Expected: 05/16/2024 (Approximate), Expires: 05/16/2025 [facility] Comment on above: Expected: 05/16/2024 (Approximate), Expires: 05/16/2025 Start: 05-16-2024 End: 05-16-2024 Patient encounter procedure [facility] OB Comment on above: Arrived Start: 05-08-2024 End: 05-08-2024 Professional / ancillary services management 05/08/2024 9:30 AM EDT Ancillary Procedure [facility] [address] [place] [phone] [facility] OB Start: 04-17-2024 End: 04-17-2025 Alpha fetoprotein, maternal Alpha fetoprotein, maternal Lab Routine 17 weeks gestation of Second trimester Screening, , for anatomic survey Expected: 04/17/2024 (Approximate), Expires: 04/17/2025 [facility] Work Phone: Comment on above: [...] OB [address] [place] [phone] Radha Avila PA [address] [place], [place] [phone] [facility] Start: 03-13-2024 End: 03-13-2024 ambulatory 03/13/2024 8:40 AM EST Initial [facility] [address] [place] [address] Eusebio Lam, DO [address] [place], [place] [id number] [facility] Start: 01-20-2024 End: 01-20-2024 Patient encounter procedure 01/20/2024 11:20 AM EST Office Visit [facility] [address] [place] [address] Eusebio Lam, DO [address] [place] [address] Dr [place], [place] [id number] [facility] Start: 08-31-2023 DTaP/Tdap/Td vaccine (5 - Td) DTaP/Tdap/Td vaccine (5 - Td) [place] Start: 10-10-2019 Influenza vaccination Flu vacc ine (Season Ended) [place] Start: 12-02-2018 DTaP/Tdap/Td vaccine (1 - Tdap) DTaP/Tdap/Td vaccine (1 - Tdap) [place] Start: 10-09-2018 Influenza vaccination Flu vaccine (# 1) [place] Start: 08-04-2016 Chlamydia screen Chlamydia screen [place], [place] Start: 08-04-2016 Screening for Chlamy penelope trachomatis Chlamydia screen [place] Start: 12-02-2014 HIV screen HIV screen Carlie Navarro [place], [place] Start: 12-02-2014 [facility] [place] [place] Start: 12-02-2014 HPV vaccine (1 - Fem joselyn 3-dose series) HPV vaccine (1 - Female 3-dose series) [place] Start: 12-02-2012 Varicella Vaccine (1 of 2 - 13+ 2-dose series) Varicella Vaccine (1 of 2 - 13+ 2-dose series) [place] Start: 12-02-2010 DTaP/Tdap/Td vaccine (1 - Tdap) DTaP/Tdap/Td vaccine (1 - Tdap) [place] Start: 12-02-2010 HPV vaccine (1 - Fem joselyn 2-dose series) HPV vaccine (1 - Female 2-dose series) [place] Start: 12-02-2005 Pneumococcal 0-64 ye ars Vaccine (1 of 1 - PPSV23) Pneumococcal 0-64 years Vaccine (1 of 1 - PPSV23) [place] Start: 2003 Varicella vaccine (2 of 2 - 2-dose childhood series) Varicella vaccine (2 of 2 - 2-dose childhood series) [place] Start: 12-02-2000 Varicella Vaccine (1 of 2 - 2-dose childhood series) Varicella Vaccine (1 of 2 - 2-dose childhood series) [place] CBC W Auto Different ial panel - Blood CBC and differential Lab Routine Weight loss Ordered: 11/03/2023 [facility] Work Phone: Comment on above: Ordered: 11/03/2023 CBC W Auto Different ial panel - Blood CBC and differential Lab Routine Third trimester Ordered: 07/13/2024 [facility] Comment on above: Ordered: 07/13/2024 CHLAMYDIA TRACHOMATI S (GENITO/STI) CHLAMYDIA TRACHOMATIS (GENITO/STI) Lab Routine Exposure to STD Ordered: 05/16/2024 [facility] Comment on above: Ordered: 05/16/2024 Cytology Cervical or vaginal smear or scraping study Pap Smear Pathology and Cytology Routine Well woman exam with routine gynecological exam Ordered: 05/16/2024 [facility] Comment on above: Ordered: 05/16/2024 Hemoglobin A1c/Hemoglobin.total in Blood Hemoglobin A1c Lab Routine Weight loss Ordered: 11/03/2023 [facility] Comment on above: Ordered: 11/03/2023 Hemoglobin A1c/Hemoglobin.total in Blood Hemoglobin A1c Lab Routine Third trimester Ordered: 07/13/2024 [facility] Work Phone: Comment on above: Ordered: 07/13/2024 Neisseria gonorrhoea e DNA [Presence] in Unspecified specimen by STEFANIE with probe detection Neisseria gonorrhea DNA probe, direct Lab Routine Exposure to STD Ordered: 05/16/2024 [facility] Comment on above: Ordered: 05/16/2024 SURESWAB(R) ADVANCED VAGINITIS PLUS, TMA SURESWAB(R) ADVANCED VAGINITIS PLUS, TMA Pathology and Cytology Routine Vaginal discharge Ordered: 05/16/2024 [facility] Comment on above: Ordered: 05/16/2024 Thyrotropin [Units/volume] in Serum or Plasma TSH Lab Routine Weight loss Ordered: 11/03/2023 [facility] Comment on above: Ordered: 11/03/2023 Thyroxine (T4) free [Mass/volume] in Serum or Plasma T4, free Lab Routine Weight loss Ordered: 11/03/2023 [facility] Comment on above: Ordered: 11/03/2023 End: 12-14-2024 US for US OB follow up transabdominal approach Imaging Routine H/O delivery, currently 4 Occurrences starting 06/13/2024 until 12/14/2024 [facility] Work Phone: Comment on above: 4 Occurrences starti ng 06/13/2024 until 12/14/2024 Payers Date Payer Category Payer Unknown UNKNOWN 2022 Medicaid [id number] 2022 Medicaid [id number] 2018 Unknown [id number] 2018 Unknown [employer] xxxxxxxxxxx 2018-Present [phone] [address] [place] [address] xxxxxxxxxxx [id number] 1999 Unknown [id number] 2.16.840.1.243910.3.579.2.176 1999 Unknown [id number] 2.16.840.1.467561.3.579.2.176 1999 Unknown [id number] 2.16.840.1.062619.3.579.2.176 1999 Unknown [id number] 2.16.840.1.536940.3.579.2.176 1999 Unknown [id number] 2.16.840.1.269892.3.579.2.175 1999 Unknown [id number] 2.16.840.1.950723.3.579.2.175 1999 Unknown [id number] 2.16.840.1.494214.3.579.2.175 1999 Unknown [id number] 2.16.840.1.540687.3.579.2.593 1999 Unknown [id number] 2.16.840.1.349756.3.579.2.593 1999 Unknown [id number] 2.16.840.1.914398.3.579.2.593 1999 Unknown [id number] 2.16.840.1.725080.3.579.2.593 1999 Unknown [id number] 2.16.840.1.146891.3.579.2.593 1999 Unknown [id number] 2.16.840.1.263752.3.579.2.593 1999 Unknown [id number] 2.16.840.1.313960.3.579.2.593 1999 Unknown [id number] 2.16.840.1.969835.3.579.2.593 1999 Unknown [id number] 2.16.840.1.341740.3.579.2.593 1999 Unknown [id number] 2.16.840.1.743013.3.579.2.593 1999 Unknown [id number] 2.16.840.1.343786.3.579.2.593 1999 Unknown [id number] 2.16.840.1.666059.3.579.2.593 1999 Unknown [id number] 2.16.840.1.945015.3.579.2.593 1999 Unknown [id number] 2.16.840.1.767343.3.579.2.718 1999 Unknown [id number] 2.16.840.1.677513.3.579.2.1286 1999 Unknown [id number] 2.16.840.1.695709.3.579.2.1286 1999 Unknown [id number] 2.16.840.1.285519.3.579.2.1286 1999 Unknown [id number] 2.16.840.1.682653.3.579.2.1286 1999 Unknown [id number] 2.16.840.1.953713.3.579.2.1286 1999 Unknown [id number] 2.16.840.1.903531.3.579.2.1286 1999 Unknown [id number] 2.16.840.1.288377.3.579.2.1286 1999 Unknown [id number] 2.16.840.1.719409.3.579.2.1286 1999 Unknown [id number] 2.16.840.1.485002.3.579.2.1259 1999 Unknown [id number] 2.16.840.1.619478.3.579.2.1259 1999 Unknown [id number] 2.16.840.1.729397.3.579.2.1259 1999 Unknown [id number] 2.16.840.1.065606.3.579.2.1259 1999 Unknown [id number] 2.16.840.1.370624.3.579.2.1259 1999 Unknown [id number] 2.16.840.1.986405.3.579.2.1259 1999 Unknown [id number] 2.16.840.1.334336.3.579.2.1259 1999 Unknown [id number] 2.16.840.1.314595.3.579.2.1259 1999 Unknown [id number] 2.16.840.1.913265.3.579.2.1259 1999 Unknown [id number] 2.16.840.1.460926.3.579.2.1259 1999 Unknown [id number] 2.16.840.1.418395.3.579.2.1259 1999 Unknown [id number] 2.16.840.1.764601.3.579.2.1259 1959 Self-pay 1959 Unknown [id number] 1959 Unknown [id number] Unknown [id number] 2.16.840.1.720415.3.579.2.593 Social History Date Type Detail Facility Start: 06-01-2019 End: 08-05-2022 Tobacco smoking status AKIS Current every day smoker [facility] Start: 06-01-2019 End: 11-03-2023 Cigarettes smoked current (pack per day) - Reported [place] Start: 01-07-2019 End: 06-01-2019 Alcohol intake Current non-drinker of alcohol (finding) [place] Start: 03-03-2011 Tobacco Comment Mother smokes [place] Start: 1999 Sex Assigned At Not on file M [place], [place] Exposure to SARS-CoV -2 (event) Unable to assess [place] Start: 2018 End: 11-03-2023 Alcohol intake No [place] History of tobacco use Cigarette Smoker [facility] Start: 03-09-2023 End: 05-16-2024 Alcohol intake Current drinker of alcohol (finding) [facility] Start: 08-05-2022 Tobacco Comment <1PPPD [facility] Start: 08-05-2022 Alcohol Comment heavy alcohol use [facility] Start: 12-29-2023 [facility] fine Clinical Notes 03-09-2023 to 08-23-2024 Jing Moncada, FA[employer] FOOD SERVICES MANAGER - 08/23/2024 1:00 PM EDStephen Ye, FAST FOOD SERVICES MANAGER - 08/17/2024 10:00 AM Eloise Diego NP [...] smoker Heartburn History of miscarriage, currently ([facility]) HISTORY PAST MEDICAL HISTORY SOCIAL HISTORY Past Medical History: Diagnosis Date Carrier of spinal muscular atrophy Current every day smoker Heartburn History of miscarriage, currently ([facility]) Social History Tobacco Use Smoking status: Every [...] nursing note reviewed. Exam conducted with a head girls golf coach present. Vitals: Estimated body mass index is 29.94 kg/m as calculated from the following: Height as of 03/12/22: 5' 3 . Weight as of this encounter: 169 lb. BP: 102/60 No LMP recorded. Patient is . ASSESSMENT & PLAN ICD-10-CM 1. Third trimester ([facility]) Z34.93 CULTURE, GROUP B STREP WITH SUSCEPTIBLITY CULTURE, GROUP B STREP WITH SUSCEPTIBLITY 2. 35 weeks gestation of ([facility]) Z3A.35 Patient is doing well but [...] Eusebio Lam DO documented in this encounter [facility] 08-17-2024 History of Presen t [...] day smoker Heartburn History of miscarriage, currently ([facility]) HISTORY PAST MEDICAL HISTORY SOCIAL HISTORY Past Medical History: Diagnosis Date Carrier of spinal muscular atrophy Current every day smoker Heartburn History of miscarriage, currently ([facility]) Social History Tobacco Use Smoking status: [...] nursing note reviewed. Exam conducted with a head girls golf coach present. Vitals: Estimated body mass index is 28.7 kg/m as calculated from the following: Height as of 03/12/22: 5' 3 . Weight as of this encounter: 162 lb. BP: 108/60 No LMP recorded. Patient is . ASSESSMENT & PLAN ICD-10-CM 1. Third trimester ([facility]) Z34.93 POCT urinalysis dipstick manually resulted 2. 35 weeks gestation of ([facility]) Z3A.35 POCT urinalysis dipstick manually resulted Patient presents today for a routine obstetrics appointment. Patient is currently 35w0d with a Estimated Date of Delivery: 09/21/24. Pelvic exam performed and patient is dilated to 1cm. Patient to RTC in 1 week. Documented by Sunshine Ye LPN on behalf of: Eusebio Lam DO documented in this encounter [facility] 08-09-2024 History of Presen t [...] day smoker Heartburn History of miscarriage, currently ([facility]) HISTORY PAST MEDICAL HISTORY SOCIAL HISTORY Past Medical History: Diagnosis Date Carrier of spinal muscular atrophy Current every day smoker Heartburn History of miscarriage, currently ([facility]) Social History Tobacco Use Smoking status: [...] nursing note reviewed. Exam conducted with a head girls golf coach present. Vitals: Estimated body mass index is 29.01 kg/m as calculated from the following: Height as of 03/12/22: 5' 3 . Weight as of this encounter: 163 lb 12 oz. BP: 110/58 No LMP recorded. Patient is . ASSESSMENT & PLAN ICD-10-CM 1. Third trimester ([facility]) Z34.93 POCT urinalysis dipstick manually resulted 2. 33 weeks gestation of ([facility]) Z3A.33 Return OB: Patient presents today [...] Radha Diego NP documented in this encounter [facility] 07-26-2024 History of Presen t [...] day smoker Heartburn History of miscarriage, currently ([facility]) HISTORY PAST MEDICAL HISTORY SOCIAL HISTORY Past Medical History: Diagnosis Date Carrier of spinal muscular atrophy Current every day smoker Heartburn History of miscarriage, currently ([facility]) Social History Tobacco Use Smoking status: [...] nursing note reviewed. Exam conducted with a head girls golf coach present. Vitals: Estimated body mass index is 28.61 kg/m as calculated from the following: Height as of 03/12/22: 5' 3 . Weight as of this encounter: 161 lb 8 oz. BP: 102/62 No LMP recorded. Patient is . ASSESSMENT & PLAN ICD-10-CM 1. Third trimester ([facility]) Z34.93 POCT urinalysis dipstick manually resulted 2. 31 weeks gestation of ([facility]) Z3A.31 Return OB: Patient presents today [...] Eusebio Lam DO documented in this encounter [facility] 07-13-2024 History of Presen t [...] nursing note reviewed. Exam conducted with a head girls golf coach present. Vitals: Estimated body mass index is [...] Eusebio Lam DO documented in this encounter [facility] 06-28-2024 History of Presen t [...] of: JOSE Vanessa documented in this encounter [facility] 06-13-2024 History of Presen t [...] nursing note reviewed. Exam conducted with a head girls golf coach present. Vitals: Estimated body mass index is [...] Eusebio Lam DO documented in this encounter [facility] 05-16-2024 History of Presen t [...] nursing note reviewed. Exam conducted with a head girls golf coach present. Vitals: Estimated body mass index is [...] Eusebio Lam DO documented in this encounter [facility] 04-17-2024 History of Presen t [...] dipstick manually resulted Patient being referred to [facility], states she went into labor at 35 weeks previously. Follow Up: Patient is to return to office in 4 week for routine OB appointment. Documented by JOSE Vanessa on behalf of: JOSE Vanessa documented in this encounter [facility] 03-22-2024 History of Presen t [...] or undercooked meat, and stay away from [facility]. Patient has been consulted regarding any further do's and don'ts of . Patient voiced understanding and all questions and concerns were answered. No orders of the defined types were placed in this encounter. Follow Up: Patient is to return in 4 weeks for routine OB appointment. Documented by Jing Moncada LPN on behalf of: JOSE Vanessa documented in this encounter [facility] 01-11-2024 Note Education Materials Obstetrics and Gynecology Bacterial Vaginosis Take the antibiotic as prescribed. Follow-up with your TERRAZZO SUPERVISOR to review this emergency department visit. Return [...] these instructions at home: Medicines ? Take udax-zkk-bxujpoh and prescription medicines as told by your [...] for Disease Control and Prevention: www.cdc.gov ? Citizen Of [place] Sexual Health Association: www.ashastd.org ? Office on [...] provider. Document Revised: 07/25/2020 Document Reviewed: 07/25/2020 [employer] Patient Education ? 2023 [employer] [facility] 11-03-2023 History of Presen t illness [...] nursing note reviewed. Exam conducted with a head girls golf coach present. Vitals: Estimated body mass index is [...] Eusebio Lam DO documented in this encounter [facility] 03-09-2023 History of Presen t [...] nursing note reviewed. Exam conducted with a head girls golf coach present. Vitals: Estimated body mass index is [...] Documents on File Type Date Recorded Patient Plate Grainer Apprentice Expl anation Advance Directives and Living Will Power of Linux Solar[employer] Administrator Discharge Instructions * Instructions* Victorino Sullivan MD [...] fracture for several days THANK YOU!!! From [facility] and [facility] On behalf of the Emergency Department staff at [facility], I would like to thank you for giving us the opportunity to address your health care needs and concerns. We hope that during your visit, our service was delivered in a professional and caring manner. Please keep [facility] in mind as we walk [...] how we did during your visit at [email or web address] and let us know about your experience * Attachments The following attachments cannot be sent through Care Everywhere. * Ankle Sprain (Hungarian) documented in this encounter* Attachments The following attachments cannot be sent through Care Everywhere. * Ankle Sprain (Hungarian) documented in this encounter* Instructions* Ann-Marie Engle, [...] be sent through Care Everywhere. * Dyspepsia (Hungarian) * Chest Pain (Hungarian) documented in this encounter* Attachments The following attachments cannot be sent through Care Everywhere. * Amenorrhea: Secondary (Hungarian) documented in this encounter Assessments Diagnosis Sprain [...] section and content) DATE CREATED AUTHOR 03/12/2019 [facility] DATE CREATED AUTHOR AUTHOR'S ORGANIZ ATION 06/01/2019 [facility] DATE CREATED AUTHOR AUTHOR'S ORGANIZ ATION 07/17/2022 [facility] DATE CREATED AUTHOR AUTHOR'S ORGANIZ ATION 01/06/2024 [place] DATE CREATED AUTHOR AUTHOR'S ORGANIZ ATION 01/13/2024 [facility] DATE CREATED AUTHOR AUTHOR'S ORGANIZ ATION 02/18/2024 [facility] DATE CREATED AUTHOR AUTHOR'S ORGANIZ ATION 02/18/2024 [facility] DATE CREATED AUTHOR AUTHOR'S ORGANIZ ATION 05/26/2024 [facility] DATE CREATED AUTHOR AUTHOR'S ORGANIZ ATION 08/21/2024 [facility] dical Specialists EPIC Reason for Visit [...] Care Teams (unrecognized sec tion and content) Foot Press Operator Relationship Specialty Start Date End Date Ann-Marie Ash MD [address] [place] [id number] PCP - General Family Medicine 07/03/22 Foot Press Operator Relationship Specialty Start Date End Date Ann-Marie Ash MD [address] [place] [address] [phone] PCP - General Family Medicine 07/03/22 Foot Press Operator Relationship Specialty Start Date End Date Ann-Marie Ash MD [address] [place] [address] [phone] PCP - General Family Medicine 07/03/22 Foot Press Operator Relationship Specialty Start Date End Date Ann-Marie Ash MD [address] [place] [address] [id number] PCP - General Family Medicine 07/03/22 Foot Press Operator Relationship Specialty Start Date End Date Ann-Marie Ash MD [address] [place] [address] [phone] PCP - General Family Medicine 07/03/22 Foot Press Operator Relationship Specialty Start Date End Date Ann-Marie Ash MD [address] [place] [address] [id number] PCP - General Family Medicine 07/03/22 Foot Press Operator Relationship Specialty Start Date End Date Ann-Marie Ash MD [address] [place] [address] [phone] PCP - General Family Medicine 07/03/22 Foot Press Operator Relationship Specialty Start Date End Date Ann-Marie Ash MD [address] [place] [address] [phone] PCP - General Family Medicine 07/03/22 Foot Press Operator Relationship Specialty Start Date End Date Ann-Marie Ash MD [address] [place] [address] [id number] PCP - General Family Medicine 07/03/22 Foot Press Operator Relationship Specialty Start Date End Date Ann-Marie Ash MD [address] [place] [address] [phone] PCP - General Family Medicine 07/03/22 Foot Press Operator Relationship Specialty Start Date End Date Ann-Marie Ash MD [address] [place] [address] [id number] PCP - General Family Medicine 07/03/22 Foot Press Operator Relationship Specialty Start Date End Date Ann-Marie Ash MD [address] [place] [address] [phone] PCP - General Family Medicine 07/03/22 Foot Press Operator Relationship Specialty Start Date End Date Ann-Marie Ash MD [address] [place] [address] [id number] PCP - General Family Medicine 07/03/22 FOR [...] BE BASED ON THE PRIMARY CLINICAL RECORDS. [employer] [facility]. provides no warranty or guarantee of the accuracy or completeness of information in this document.
[2024-08-26 13:26] VITALS: BP 116/65; PULSE 76
== END 2024-08-26 13:47 | disposition home or self-care (01) ==
LOC: FBCO 13:02 → FBC 13:04
PROVIDERS: Visit Provider Obstetrics & Gynecology
DX: O26.893 Other specified pregnancy related conditions, third trimester (principal)
CPT/HCPCS: 59025

== ENCOUNTER 2024-08-27 04:05 | Inpatient (IN) | payer MEDICAID, SELFPAY ==
[2024-08-27] VITALS (33 sets, daily range): BP systolic 78–125; BP diastolic 42–77; PULSE 59–94; TEMP 36.3–36.7
--- OUTSIDE RECORDS SUMMARY | 2024-08-27 04:10 | XMS_ITS | Encounter Summary ---
Author Organization [employer] Address [id number] [address] [place] [address] Care Team Providers Care Textile Designer Name Role Phone Orlando Ash MD Primary Care Provider [phone] Encounter Details Date Type Department Care Team (Late st Contact Info) Description 06/06/2021 Telephone [facility] Obstetrics/Gynecology [address] [place] [phone] Tory Calloway MA Social History Tobacco Use [...] documented as of this encounter Care Teams Textile Designer Relationship Specialty Start Date End Date Orlando Ash MD [address] [place] [id number] PCP - General Family Medicine 06/09/18 documented as of this encounter
--- OUTSIDE RECORDS SUMMARY | 2024-08-27 04:10 | XMS_ITS | Clinical Summary ---
Author Organization Kwic[employer] tem Address [id number] [address] [place] [address] Care Team Providers Care Estimator Name Role Phone Orlando Ash MD Primary Care Provider [phone] Allergies No known active allergies Medications [id number] 9-dha 31 mg iron- 1 mg-200 mg [...] EDT) Specimen source CERVICAL 10:25 AM EDT [facility] Chlamydia DNA PCR Negative Negative^N egative 06/26/2021 6:02 AM EDT [facility] Comment: Chlamydia trachomatis not detected by nucleic acid amplification. This does not exclude the possibility of infection because results are dependent on adequate specimen collection. Gonorrhea DNA PCR Negative Negative^N egative 06/26/2021 6:02 AM EDT [facility] Comment: Neisseria gonorrhoeae not detected by nucleic acid amplification. This does not exclude the possibility of infection because results are dependent on adequate specimen collection. GENS 06/24/2021 8:36 AM EDT 06/25/2021 10:25 AM EDT us Lima Gonzalez MULTI CRAFT MAINTENANCE TECHNICIAN-CNM MICROBIOLOGY - GENERAL O RDERABLES Final Result [employer] [facility] [address] [place] [address] * Pap Smear (02/25/2021 12:56 PM EST) 02/25/2021 12:5 6 PM EST 02/26/2021 12:58 PM EST Narrative COPATH - 02/27/2021 2:27 PM EST [facility] [address] [place] [address] Gynecologic Cytology Consultation Patient Name: HAWK KING : 2000 (Age: 20) Gender: F Taken: 02/25/2021 Reported: 02/27/2021 Physician(s): Lima Gonzalez CNM ([phone]) Copy To: [facility]. Rec. #: [id number] Acct: # [id number] Final Cytologic Interpretation ThinPrep Pap Test (Cervical): Satisfactory for evaluation. A transformation zone component was not noted. NEGATIVE FOR INTRAEPITHELIAL LESION OR MALIGNANCY. Shift in missy suggestive of bacterial vaginosis. Comment: This ThinPrep slide could not be successfully imaged by the [employer]Prep Imaging System so it was manually screened. [facility]/02/27/2021 Interpretation performed at [facility], [address] [place] [address], License number: [id number]. Electronically Signed Out By PAUL Madrigal(ASCP) Date of Last Menstrual Period: 02/20/2021 Other Clinical Conditions: Z12.4 Screening for malignant neoplasm of cervix Z01.419 Manual Machinist exam wo/abn findings Source of Specimen ThinPrep Pap Test (Cervical) Thin Prep Pap (ABA THERAPIST) Fee Code(s): G0145, G0145 <CR>, G0123 The Pap test is a screening test with an inherent, but low, probability of error. The Pap test is primarily effective for the diagnosis and prevention of squamous cell carcinoma. Regular screening is critical for prevention. ThinPrep liquid-based slides, which meet the Rn Triage criteria for automated screening, have been screened by the [place] Plasma [employer]Prep Imaging System (as of 10/25/06) along with an additional manual rescreening by a chemical preparer and, if indicated, by a pathologist. Lima Gonzalez MULTI CRAFT MAINTENANCE TECHNICIAN-CNM PATHOLOGY/CYTOLOGY ORDER SYED Final Result [facility] from Last 3 Months or Most Recently Relevant to Health Maintenance Insurance [employer] Care Teams Estimator Relationship Specialty Start Date End Date Orlando Ash MD [address] [place] [address] PCP - General Family Medicine 06/09/18
--- OUTSIDE RECORDS SUMMARY | 2024-08-27 04:10 | XMS_ITS | Encounter Summary ---
Author Organization Comprim[employer] tem Address [id number] [address] [place] [address] Care Team Providers Care Water Pump Installer Name Role Phone Orlando Ash MD Primary Care Provider [phone] Encounter Details Date Type Department Care Team (Late st Contact Info) Description 07/21/2021 Orders Only [facility] [address] [facility] [address] [place] [phone] Genny Mosquera, MARTY care in first trimester; [...] documented as of this encounter Care Teams Water Pump Installer Relationship Specialty Start Date End Date Orlando Ash MD [address] [place] [address] PCP - General Family Medicine 06/09/18 documented as of this encounter
--- OUTSIDE RECORDS SUMMARY | 2024-08-27 04:10 | XMS_ITS | Encounter Summary ---
Author Organization [employer] Address [facility]-[id number] [address] [place] [address] Care Team Providers Care Area Coordinator Name Role Phone Orlando Ash MD Primary Care Provider [phone] Encounter Details Date Type Department Care Team (Late st Contact Info) Description 01/19/2024 Telephone [facility] Obstetrics/Gynecology [address] [place] [phone] [place], WELFARE ELIGIBILITY INTERVIEWER-[facility] [address] [facility] [place] [address] Social History Tobacco Use Types Packs/Day Years [...] on filedocumented in this encounter Care Teams Area Coordinator Relationship Specialty Start Date End Date Orlando sAh MD [address] [place] [address] PCP - General Family Medicine 06/09/18 documented as of this encounter
--- OUTSIDE RECORDS SUMMARY | 2024-08-27 04:10 | XMS_ITS | Encounter Summary ---
Author Organization [employer] Address [id number] [address] [place] [address] Care Team Providers Care Spool Cleaner Hand Name Role Phone Orlando Ash MD Primary Care Provider [phone] Encounter Details Date Type Department Care Team (Late st Contact Info) Description 07/03[facility]2021 [facility] [address] [place] [phone] Rachel Dan, [facility] Social History Tobacco Use Types Packs/Day Years [...] 8 weeks and mom is traveling to [place] and patient would like to ride along. Patient miscarried back in January and her mom wants to be sure its safe for pt to ride in a car to and from [place]. She doesn't want to cause any kind of demise to fetus. Pleaseadvise. Thanks! * Telephone Encounter - KRISTYN Mcdowell - 07/03/2021 11:30 AM EDT Patient may travel to [place]. She should make frequent stops to stretch [...] documented as of this encounter Care Teams Spool Cleaner Hand Relationship Specialty Start Date End Date Orlando Ash MD [address] [place] [address] PCP - General Family Medicine 06/09/18 documented as of this encounter
[2024-08-27 04:44] LABS: Glucose Urine UA NEGATIVE (NEGATIVE)
[2024-08-27 04:58] LABS: Hematocrit 35.5 % (36.0-48.0); Hemoglobin 12.2 g/dL (12.0-16.0); Mean Corpuscular HGB Conc 34.4 g/dL (29.9-35.2); Mean Corpuscular Hemoglobin 31.9 pg (26.7-34.0); Mean Corpuscular Volume 92.9 fL (81.0-99.0); Platelet Count 249 10^3/uL (150-450); Red Blood Count 3.82 10^6/uL (4.20-5.40); White Blood Count 13.1 10^3/uL (4.0-11.0)
[2024-08-27] MEDS: AMPICILLIN SODIUM 2,000 MG in 0.9 % SODIUM CHLORIDE 100 ML 200 MG IV (04:59)
[2024-08-27] MEDS: 0.9 % SODIUM CHLORIDE 1,000 ML 1000 ML IV (05:00)
[2024-08-27 05:04] LABS: Cast Seen? NONE SEEN #/LPF (NONE SEEN); Crystals Seen? None Seen #/HPF (None Seen); Urine Culture Indicated YES-LC
[2024-08-27 05:11] LABS: Cannabinoid Screen Urine POSITIVE (NEGATIVE); Methamphetamines Screen Urine NEGATIVE (NEGATIVE); Tricyclic Antidepressant Urine NEGATIVE (NEGATIVE)
--- NOTE | 2024-08-27 05:19 | PM.OBHP ---
OB - H&P: HPI History of Present Illness Chief complaint: Contraction : 5 Para: 1 Gestational age based on last menstrual period: 36+ History of Present Dating criteria: LMP confirmed by 2nd trimester US care: good care Ultrasounds: normal mid trimester US and other (hypoplastic nasal bone - MFM US ) complications: labor Medical complications OB: psychiatric Narrative: Anxiety, depression, ADHD, Bipolar disorder - transfer OB care from [facility] - Wellbutrin SR 150mg 12 hour tablet +marijuana use +cigarette use Labs Blood type: A (+) positive Rubella: immune RPR/VDLR: nonreactive GBS status: unknown HBsAG: negative Review of Systems ROS Status of ROS: 10 or more systems reviewed and unremarkable except as noted in history and below [facility] Medical History (Updated 08/27/24 @ 05:30 by Jolene Krishnan) GBS screening not performed contractions ?O47.00 - False labor before 37 completed weeks of gestation, unspecified trimester (ICD-10) SROM (spontaneous rupture of membranes) Meds Home Medications and Allergies Home Medications ?Medication ?Instructions ?Recorded ?Confirmed ?Type No Known Home Medications 08/02/24 08/02/24 History Allergies Allergy/AdvReac Type Severity Reaction Status Date / Time No Known Drug Allergies Allergy Verified 12/29/22 12:58 Exam Constitutional Vital Signs, click to edit/add: Last Vital Signs Pulse 77 08/27/24 05:17 BP 114/77 08/27/24 05:17 Common normals: healthy appearing and alert GI Other: gravid Other: presented 5-6cm dilated, now 8-9cm Extremity Common normals: normal to inspection Neuro Common normals: oriented x3 Psych Common normals: mental status grossly normal Results Labs Labs: Short CBC 08/27/24 Range/Units 04:30 WBC 13.1 H (4.0-11.0) 10^3/uL Hgb 12.2 (12.0-16.0) g/dL Hct 35.5 L (36.0-48.0) % Plt Count 249 (150-450) 10^3/uL Urine 08/27/24 Range/Units 04:15 Urine Color Lt. yellow (YELLOW) Urine Clarity Clear (CLEAR) Urine pH 6.0 (5.0-9.0) Ur Specific [place] 1.015 (1.005-1.025) Urine Protein Negative (NEG/TRACE) mg/dL Urine Glucose (UA) Negative (NEGATIVE) mg/dL OB - A/P Assessment and Plan (1) labor in third trimester: Plan receiving epidural expectant management
[2024-08-27] MEDS: ROPIVACAINE HCL/PF 400 MG/200 ML PREMIX 9 MG EPIDURAL (05:35)
[2024-08-27] MEDS: LIDOCAINE HCL 2% PF 100 MG/5 ML VIAL INJ (05:42)
[2024-08-27] MEDS: FENTANYL CITRATE/PF 100 MCG/2 ML VIAL EPIDURAL (05:42)
--- NOTE | 2024-08-27 05:46 | P.OBPN_ITS ---
OB - PN: Subj Subjective Interval history: wrong progress note Exam Constitutional Vital Signs, click to edit/add: Last Vital Signs Pulse 59 L 08/27/24 05:44 BP 101/59 08/27/24 05:44 Results Labs Labs: Short CBC 08/27/24 Range/Units 04:30 WBC 13.1 H (4.0-11.0) 10^3/uL Hgb 12.2 (12.0-16.0) g/dL Hct 35.5 L (36.0-48.0) % Plt Count 249 (150-450) 10^3/uL Urine 08/27/24 Range/Units 04:15 Urine Color Lt. yellow (YELLOW) Urine Clarity Clear (CLEAR) Urine pH 6.0 (5.0-9.0) Ur Specific [place] 1.015 (1.005-1.025) Urine Protein Negative (NEG/TRACE) mg/dL Urine Glucose (UA) Negative (NEGATIVE) mg/dL OB - PN: A/P Assessment and Plan (1) labor in third trimester: Plan wrong PN - Time Spent with Patient Time: Total time spent is greater than 50% in coordination of care (as documented) at patient's floor/unit and/or counseling patient: Total time spent with greater than 50% in coordination of care (as documented) at patient's floor/unit and/or counseling patient: less than 15 minutes
--- NOTE | 2024-08-27 05:48 | PM.OBPNL ---
Pain Control Pain control: tolerating well and epidural Pelvic Exam Dilation (cm): 8 Effacement (%): 90 Contractions Monitor mode: External Contraction frequency: 3 Contraction pattern: Regular Contraction intensity: Moderate to Strong station: -1 Amniotic membrane status: Ruptured status: Category I Comments: AROM - clear fluid Assessment and Plan Assessment: active labor Plan: continuous present management
[2024-08-27] MEDS: 0.9 % SODIUM CHLORIDE 1,000 ML 125 ML IV (06:43)
[2024-08-27] MEDS: OXYTOCIN/0.9 % SODIUM CHLORIDE 20 UNITS/1,000 ML PLAST..BAG 125 UNIT IV (06:55)
--- NOTE | 2024-08-27 07:08 | PM.OBPRCVD ---
Procedure events: Labor < 37 Weeks Intrapartal events: None Induction method: none Delivery augmentation: rupture of membranes Delivery monitor: external FHT Route of delivery: Episiotomy Description: none L&D Laceration Description: perineal - 1st degree Delivery repair: Vicryl Estimated blood loss (mL): 150 Anesthesia type: Epidural Disposition: floor Gender: male presentation: vertex Placental delivery description: Expressed cord description: 3 Vessels heart rate - 1 minute: 100 bpm or Greater respiratory effort - 1 minute: Spontaneous/Strong Cry muscle tone - 1 minute: Active Movement reflex response - 1 minute: Prompt Response color - 1 minute: Pallor or Cyanosis total score - 1 minute: 8 heart rate - 5 minute: 100 bpm or Greater respiratory effort - 5 minute: Spontaneous/Strong Cry muscle tone - 5 minute: Active Movement reflex response - 5 minute: Prompt Response color - 5 minute: Bluish Hands or Feet total score - 5 minute: 9
--- NOTE | 2024-08-27 08:43 | PC.NURSE ---
RN assumes care of pt at this time. Bedside report received from Tapan FERGUSON and Anthony FERGUSON.
--- NOTE | 2024-08-27 08:44 | PC.NURSE ---
Epidural removed at this time per pt request.
--- NOTE | 2024-08-27 08:46 | PC.NURSE ---
Pt given PO fluids and menu for food at this time.
[2024-08-27] MEDS: GLYCERIN/WITCH HAZEL PADS 1 PAD TOPICAL (10:00)
[2024-08-27] MEDS: IBUPROFEN 600 MG TABLET PO ×2 (10:00→20:46)
[2024-08-27] MEDS: BENZOCAINE/MENTHOL 85 GRAM SPRAY BOTTLE 1 APPLIC TOPICAL (10:00)
--- NOTE | 2024-08-27 19:15 | W.PC.ACHO ---
Registration Status: ADM IN Primary Language: Bhutanese Preferred Language: Bhutanese Report given to Tapan FERGUSON at 1900. Care relinquished. Active Medications Generic Name Dose Route Start Last Admin Trade Name Jenni PRN Reason Stop Dose Admin Acetaminophen 650 mg 08/27/24 07:13 Acetaminophen 325 Mg Tablet PO Q6H PRN Mild Pain Al Hydroxide/Mg Hydroxide 2,400 mg 08/27/24 07:13 Magnesium Hydroxide 2,400 Mg/10 Ml Oral.Susp PO Q6H PRN Dyspepsia Benzocaine/Menthol 1 applic 08/27/24 07:13 08/27/24 10:00 Benzocaine/Menthol 85 Gram [place] Bottle TOPICAL 1 applic Q2H PRN Administration Pain Carboprost Tromethamine 250 mcg 08/27/24 04:40 Carboprost Tromethamine 250 Mcg/Ml 1 Ml Vial IM 08/29/24 04:40 Q15M PRN Bleeding Diphenhydramine HCl 25 mg 08/27/24 04:43 Diphenhydramine Hcl 50 Mg/Ml Vial IV 08/28/24 04:43 Q6H PRN Itching Diphtheria/Pertussis/Tetanus Vacc 0.5 ml 08/29/24 09:00 Adacel Diph,Pertuss(Acell),Tet Vac/Pf 0.5 Ml Adult Syringe IM 08/29/24 09:01 .ONCE ONE Docusate Sodium 100 mg 08/28/24 09:00 Docusate Sodium 100 Mg Capsule PO BID ANALILIA Ephedrine Sulfate 5 mg 08/27/24 04:43 Ephedrine Sulfate 50 Mg/Ml Vial IV 08/28/24 04:43 Q5M PRN Blood Pressure - Low Fentanyl Citrate 100 mcg 08/27/24 04:43 08/27/24 05:42 Fentanyl Citrate/Pf 100 Mcg/2 Ml Vial EPIDURAL 100 mcg ONCE PRN Administration epidural Fentanyl Citrate 100 mcg 08/27/24 04:43 Fentanyl Citrate/Pf 100 Mcg/2 Ml Vial EPIDURAL ONCE PRN epidural Tranexamic Acid 1,000 mg/ 110 mls @ 440 mls/hr 08/27/24 04:40 Sodium Chloride IV 08/29/24 04:40 ONCE PRN Uterine Bleeding Sodium Chloride 1,000 mls @ 125 mls/hr 08/27/24 05:00 08/27/24 06:47 Sodium Chloride 0.9% 1,000 Ml IV Infused .Q8H ANALILIA Infusion Ropivacaine/Sodium Chloride 400 mg in 200 mls @ 6 mls/hr 08/27/24 04:45 08/27/24 07:00 Naropin 0.2% 400 Mg/200 Ml Bag EPIDURAL Infused Q24H ANALILIA Infusion Ibuprofen 600 mg 08/27/24 07:13 08/27/24 10:00 Ibuprofen 600 Mg Tablet PO 600 mg Q6H PRN Administration Moderate Pain Lidocaine 5 ml 08/27/24 04:40 Lidocaine Viscous 2% 15 Ml Solution TOPICAL 08/29/24 04:42 ONCE PRN Pain Lidocaine 1 ml 08/27/24 04:40 Lidocaine Hcl 1% 200 Mg/20 Ml Mdv INJ 08/29/24 04:42 ONCE PRN Pain Lidocaine 5 ml 08/27/24 04:43 08/27/24 05:42 Lidocaine Hcl 2% Pf 100 Mg/5 Ml Vial INJ 08/28/24 04:43 5 ml Q1H PRN Administration epidural Methylergonovine Maleate 0.2 mg 08/27/24 04:40 Methylergonovine Maleate 0.2 Mg/Ml Ampule IM 08/29/24 04:40 ONCE PRN Uterine Contractility/Contract Methylergonovine Maleate 0.2 mg 08/27/24 04:40 Methylergonovine Maleate 0.2 Mg Tablet PO 08/29/24 04:40 Q4H PRN Uterine Contractility/Contract Misoprostol 600 mcg 08/27/24 04:40 Misoprostol 100 Mcg Tablet PO 08/29/24 04:40 ONCE PRN Uterine Bleeding Misoprostol 800 mcg 08/27/24 04:40 Misoprostol 100 Mcg Tablet SL 08/29/24 04:40 ONCE PRN Uterine Bleeding Misoprostol 1,000 mcg 08/27/24 04:40 Misoprostol 100 Mcg Tablet MS 08/29/24 04:40 ONCE PRN Uterine Bleeding Nalbuphine HCl 10 mg 08/27/24 04:40 Nalbuphine Hcl 10 Mg/Ml Ampule IV Q3H PRN Pain Scale 4-6 Naloxone HCl 0.4 mg 08/27/24 04:43 Naloxone Hcl 0.4 Mg/Ml Vial IV 08/28/24 04:43 ONCE PRN respiratory distress Ondansetron HCl 4 mg 08/27/24 04:40 Ondansetron Pf 4 Mg/2 Ml Vial IV Q6H PRN Nausea And Vomiting Ondansetron HCl 4 mg 08/27/24 04:40 Ondansetron 4 Mg Rapdis Tablet SL Q6H PRN Nausea And Vomiting Oxytocin 10 unit 08/27/24 04:40 Oxytocin 10 Unit/Ml Vial IM 08/29/24 04:40 ONCE PRN Bleeding Senna 17.2 mg 08/27/24 20:00 Sennosides 8.6 Mg Tablet PO QHS PRN Constipation Simethicone 80 mg 08/27/24 07:13 Simethicone 80 Mg Tab.Chew PO QID PRN Abdominal Distention Temazepam 15 mg 08/27/24 07:13 Temazepam 15 Mg Capsule PO QHS PRN Sleep Witch Brie/Glycerin 1 pad 08/27/24 07:13 08/27/24 10:00 Glycerin/Witch Brie Pads TOPICAL 1 pad Q2H PRN Administration Pain Diet Category Date Time Status Regular Consistency Diet Diet 08/27/24 07:14 Active Consults Category Date Time Status Consult to Manager Field Routine Cons 08/27/24 Ordered IV Insertion/Site Date of IV Line Insertion [ 08/27/24 Short PIV (<1.75 in) 20g left Forearm] IV Insertion Time [Short PIV ( 04:40 <1.75 in) 20g left Forearm] Neurology Patient orientation (short person,place,time,situation list) Respiratory Oxygen Delivery Method Room Air Oxygen Delivery Method Room Air Cardiology Heart Sounds Regular,Strong Heart Sounds Regular,Strong Bowels Bowel Pattern No Bowel Movement Renal Bladder Pattern Continent Catheter Urinary Catheter Date of 08/27/24 Insertion [Straight] Urinary Catheter Time of 05:55 Insertion [Straight] Date Urinary Catheter Removed 08/27/24 [Straight] Time Urinary Catheter 05:56 Discontinued [Straight]
[2024-08-27] MEDS: ACETAMINOPHEN 325 MG TABLET 650 MG PO (23:04)
[2024-08-28 01:33] VITALS: BP 117/55; PULSE 59; TEMP 36.9
[2024-08-28 06:11] LABS: Hematocrit 33.1 % (36.0-48.0); Hemoglobin 11.1 g/dL (12.0-16.0); Immature Granulocytes Abs Auto 0.03 10^3/uL (0.00-0.03); Immature Granulocytes Pct Auto 0.3 % (0.0-0.5); Lymphocytes Absolute Auto 3.2 10^3/uL (1.2-3.8); Mean Corpuscular HGB Conc 33.5 g/dL (29.9-35.2); Mean Corpuscular Hemoglobin 31.6 pg (26.7-34.0); Mean Corpuscular Volume 94.3 fL (81.0-99.0); Platelet Count 233 10^3/uL (150-450); Red Blood Count 3.51 10^6/uL (4.20-5.40); White Blood Count 10.3 10^3/uL (4.0-11.0)
--- NOTE | 2024-08-28 07:40 | PM.OBPN ---
OB - PN: Subj Subjective Interval history: wrong progress note Patient comments: no complaints and pain well controlled [place] status: doing well Exam Constitutional Vital Signs, click to edit/add: Last Vital Signs Temp 98.5 F 08/28/24 01:33 Pulse 59 L 08/28/24 01:33 Resp 15 08/28/24 01:33 BP 117/55 08/28/24 01:33 O2 Del Method Room Air 08/28/24 01:30 Documenting provider has reviewed patient's vital signs: yes Common normals: no apparent distress Respiratory Common normals: normal respiratory effort and clear to auscultation bilaterally Cardio Common normals: regular rate and regular rhythm GI Common normals: Normal to inspection, nondistended, normoactive bowel sounds present Extremity Common normals: no clubbing, cyanosis or edema and no calf tenderness Results Labs Labs: Short CBC 08/28/24 Range/Units 06:00 WBC 10.3 (4.0-11.0) 10^3/uL Hgb 11.1 L (12.0-16.0) g/dL Hct 33.1 L (36.0-48.0) % Plt Count 233 (150-450) 10^3/uL Urinary Catheter Management Urinary Catheter Management Straight: Cath placed during this visit: yes, but has since been removed by the nurse Insertion date: 08/27/24 Insertion time: 05:55 Removal date: 08/27/24 Removal time: 05:56 OB - PN: A/P Assessment and Plan (1) labor in third trimester: Plan - Vaginal Delivery day: 1 Plan: routine care, discharge home and follow up 6 weeks Time Spent with Patient Time: Total time spent is greater than 50% in coordination of care (as documented) at patient's floor/unit and/or counseling patient: Total time spent with greater than 50% in coordination of care (as documented) at patient's floor/unit and/or counseling patient: less than 15 minutes
[2024-08-28 07:49] VITALS: BP 128/84; PULSE 77
[2024-08-28] MEDS: ACETAMINOPHEN 325 MG TABLET 650 MG PO (07:51)
[2024-08-28] MEDS: IBUPROFEN 600 MG TABLET PO (08:00)
--- NOTE | 2024-08-28 12:43 | SWNOTE1 ---
SW consulted for Marijuana use. SW spoke to nurse prior and pt may have an open case with CPS at this time. SW spoke to patient and father of baby in room. Father of baby name is Spike. They do live together. They voiced they have everything the need at home for baby. They voiced they have good support at home. She does have [facility] services for her other children, she has to call and make apt for baby to start services. She will do this once she is home. SW did ask about her Marijuana use. She voiced she uses it at night to help her sleep. Pt does not have medical Marijuana card, but voiced she needs to get it. SW asked if she plans on continuing use once home? She stated she likely will to help her sleep. SW advised that it needs to be pocked up and away from reach of children. SW expressed to not smoke it around children. Pt voiced understanding. Yovani do have 2 other children in the home. They are 2 & 3 years old, but girls. SW asked if CPS was involved during other pregnancies. She stated for her 2 year old they do open a case and came to the home, but then closed case shortly after. SW asked if CPS was involved right now? Initially pt stated no. SW asked if they had been recently? She stated they did open a case, but it was closed 2-3 months ago. She stated someone had called and reported that she locked her kids in there rooms. She stated CPS came in and investigated and closed the case. SAUL did advise pt and Spike that SW is mandated labor relations teacher and has to call [facility] CPS and make report. They voiced understanding and no further questions at this time. Report called to [facility] CPS. HIPAA form filled out and sent to
== END 2024-08-28 08:02 | disposition home or self-care (01) | DRG 560 ==
PROVIDERS: Admitting Provider Obstetrics & Gynecology; Visit Provider Obstetrics & Gynecology Gynecology
DX: O60.14X0 Preterm labor third trimester with preterm delivery third trimester, not applicable or unspecified (principal); Z3A.36 36 weeks gestation of pregnancy; Z37.0 Single live birth; O70.0 First degree perineal laceration during delivery; O99.324 Drug use complicating childbirth; F12.90 Cannabis use, unspecified, uncomplicated; O99.334 Smoking (tobacco) complicating childbirth; F17.210 Nicotine dependence, cigarettes, uncomplicated
CPT/HCPCS: 36415; 59025; 59050; 59410; 80307; 81001; 85025; 85027; 86850; 86900; 86901; 87086; G0378; G0379; J0290; J2795; J3010